=== PATIENT | male | born 1975 | race African-American/Black ===

== ENCOUNTER 2021-08-20 16:43 | Emergency (ER) | payer OTHER ==
[2021-08-20 18:31] LABS: Absolute Lymphocytes (CBC) 1.1 K/uL (0.7-4.9); Hematocrit 22.7 % (39.6-49.0); Lymphocytes % 18.9 % (15.3-44.8); MPV 8.6 fL (7.6-11.3); Protime INR 1.25; RBC Red Blood Cell Count 2.36 M/uL (4.33-5.43)
[2021-08-20 19:17] LABS: Magnesium 1.8 mg/dL (1.8-2.4); Potassium 4.1 mmol/L (3.5-5.1)
--- NOTE | 2021-08-20 20:00 | RAD REPORT ---
EXAM DESCRIPTION: RAD - Chest Single View - 08/20/2021 6:55 pm CLINICAL HISTORY: anemia COMPARISON: None TECHNIQUE: AP portable chest image was obtained 08/20/2021 6:55 pm . FINDINGS: No dense consolidations seen though there do appear to be patchy airspace opacities in bot h lung hurley. The baseline for the patient is unknown. Aortic arch stenting is present. Additional v ascular stents are seen in the right subclavian vasculature. Hardware is in place from old rib trauma repair lateral left chest. Heart size is upper normal. Central vasculature within normal limits. No measurable pleural effusion and no pneumothorax. No acute bony abnormality seen. No acute aortic findings suspected. IMPRESSION: Baseline study showing patchy airspace opacities in the lung hurley. Mild edema or infil trate would be possible and needs correlation with clinical presentation.
--- NOTE | 2021-08-20 20:41 | EDPHYS ---
Physician Documentation [facility] Name: Velasquez Cruz Age: 46 yrs Sex: Male : 1975 Arrival Date: 08/20/2021 Time: 16:47 Bed 15 Private MD: ED Physician Kiet Funez HPI: 08/20 18:00 This 46 yrs old Black Male presents to ER via EMS with complaints of Anemia. cp 18:00 Anemia. Patient referred to ED for evaluation of low hemoglobin. Patient denies dark, cp tarry stools. Denies shortness of breath. Denies chest pain. Patient is a dialysis patient, reports anemia in the past but admits to not taking prescribed iron. Historical: - Allergies: 17:03 No Known Allergies; jd3 - Home Meds: 17:04 Norvasc Oral [Active]; Coreg Oral [Active]; Lisinopril Oral [Active]; Clonidine Oral jd3 [Active]; Veltassa oral [Active]; Clindamycin Oral [Active]; sertraline oral [Active]; atorvastatin oral [Active]; Hydralazine Oral [Active]; - PMHx: 17:04 M W F dialysis; CHF; Anemia; hypertension; jd3 - PSHx: 17:04 left arm dialysis access; jd3 - Immunization history:: Adult Immunizations up to date. - Social history:: Smoking status: Patient reports the use of cigarette tobacco products, smokes one pack cigarettes per day. ROS: 18:05 Constitutional: Negative for body aches, chills, fever, poor PO intake. cp 18:05 Eyes: Negative for injury, pain, redness, and discharge. cp 18:05 Cardiovascular: Negative for chest pain. 18:05 Respiratory: Negative for shortness of breath, wheezing. 18:05 Abdomen/GI: Negative for abdominal pain, nausea, vomiting, and diarrhea, black/tarry stool, rectal bleeding. 18:05 Neuro: Negative for altered mental status, dizziness, headache, syncope, weakness. 18:05 All other systems are negative. Exam: 18:10 Constitutional: The patient appears in no acute distress, alert, awake, cp non-diaphoretic, non-toxic, well developed, well nourished. 18:10 Head/Face: Normocephalic, atraumatic. cp 18:10 Eyes: Periorbital structures: appear normal, Conjunctiva: normal, no exudate, no injection, Lids and lashes: appear normal, bilaterally. 18:10 ENT: External ear(s): are unremarkable, Nose: is normal, Mouth: Lips: moist, Oral mucosa: moist, Posterior pharynx: Airway: no evidence of obstruction, patent. 18:10 Chest/axilla: Inspection: normal. 18:10 Cardiovascular: Rate: normal, Rhythm: regular. 18:10 Respiratory: the patient does not display signs of respiratory distress, Respirations: normal, no use of accessory muscles, no retractions, labored breathing, is not present, Breath sounds: are clear throughout, no decreased breath sounds, no stridor, no wheezing. 18:10 Abdomen/GI: Inspection: abdomen appears normal, Palpation: abdomen is soft and non-tender, in all quadrants. 18:10 Back: pain, is absent, ROM is normal. 18:10 Neuro: Orientation: to person, place \T\ time. Mentation: is normal. 18:20 ECG was reviewed by the Attending Physician. Vital Signs: 17:03 BP 116 / 77; Pulse 71; Resp 18 S; Temp 99.0(TE); Pulse Ox 99% on R/A; Weight 83.01 kg jd3 (R); Height 5 ft. 8 in. (172.72 cm) (R); Pain 0/10; 19:37 BP 175 / 76; Pulse 65; Resp 18; Pulse Ox 100% on R/A; ld1 17:03 Body Mass Index 27.82 (83.01 kg, 172.72 cm) jd3 MDM: 17:45 Patient medically screened. cp 20:40 Data reviewed: vital signs, nurses notes, lab test result(s), EKG, radiologic studies, cp plain films. 20:40 Test interpretation: by ED physician or midlevel provider: ECG, plain radiologic cp studies. Counseling: I had a detailed discussion with the patient and/or guardian regarding: the historical points, exam findings, and any diagnostic results supporting the discharge/admit diagnosis, lab results, radiology results, the need for outpatient follow up, a family practitioner, to return to the emergency department if symptoms worsen or persist or if there are any questions or concerns that arise at home. 08/20 18:03 Order name: Basic Metabolic Panel; Complete Time: 19:39 cp 08/20 18:03 Order name: CBC with Diff cp 08/20 19:39 Interpretation: Normal except: RBC 2.36; HGB 7.7; HCT 22.7; RDW 21.8; EOSINOPHIL % cp 12.8; BASO% 1.5; EOSA 0.8. 08/20 18:03 Order name: Magnesium; Complete Time: 19:39 cp 08/20 18:03 Order name: NT PRO-BNP; Complete Time: 19:39 cp 08/20 20:03 Interpretation: Reviewed. cp 08/20 18:03 Order name: PT-INR; Complete Time: 19:39 cp 08/20 21:24 Order name: CBC Smear Scan EDMS 08/20 18:03 Order name: XRAY Chest (1 view); Complete Time: 20:03 cp 08/20 18:03 Order name: EKG; Complete Time: 18:04 cp 08/20 18:03 Order name: Cardiac monitoring; Complete Time: 18:23 cp 08/20 18:03 Order name: EKG - Nurse/Tech; Complete Time: 18:23 cp 08/20 18:03 Order name: IV Saline Lock; Complete Time: 18:10 cp 08/20 18:03 Order name: Labs collected and sent; Complete Time: 18:10 cp 08/20 18:03 Order name: O2 Per Protocol; Complete Time: 18:25 cp 08/20 18:03 Order name: O2 Sat Monitoring; Complete Time: 18:25 cp 08/20 18:27 Order name: Labs - recollect needed: recollect green top; Complete Time: 18:34 bd EC:20 Rate is 57 beats/min. Rhythm is regular. [place] interval is normal. QRS interval is normal. cp QT interval is normal. T waves are Inverted in lead aVR. Interpreted by me. Reviewed by me. Administered Medications: No medications were administered Disposition Summary: 08/20/21 20:40 Discharge Ordered Location: Home cp Problem: new cp Symptoms: are unchanged cp Condition: Stable cp Diagnosis - Anemia in chronic kidney disease cp Followup: cp - With: Private Physician - When: 1 - 2 days - Reason: Recheck today's complaints Discharge Instructions: - Discharge Summary Sheet cp - Anemia cp - Food Basics for Chronic Kidney Disease cp Forms: - Medication Reconciliation Form cp - Thank You Letter cp - Antibiotic Education cp - Prescription Opioid Use cp Signatures: Dispatcher [employer] Shilpa Antoine Corey, PA PA cp Davies, Jonathon RN RN jd3
--- NOTE | 2021-08-20 20:41 | ER ---
Nurse's Notes [facility] Name: Velasquez Cruz Age: 46 yrs Sex: Male : 1975 Arrival Date: 08/20/2021 Time: 16:47 Bed 15 Private MD: Diagnosis: Anemia in chronic kidney disease Presentation: 08/20 17:01 Chief complaint: EMS states: "He was sent by [facility] for low Hgb at jd3 6.9. no chief complaint.". Coronavirus screen: At this time, the client does not indicate any symptoms associated with coronavirus-19. Ebola Screen: No symptoms or risks identified at this time. Initial Sepsis Screen: Does the patient meet any 2 criteria? No. Patient's initial sepsis screen is negative. Does the patient have a suspected source of infection? No. Patient's initial sepsis screen is negative. Risk Assessment: Do you want to hurt yourself or someone else? Patient reports no desire to harm self or others. Onset of symptoms was August 20, 2021. 17:01 Method Of Arrival: EMS: [facility] jd3 17:01 Acuity: HEAVEN 3 jd3 17:03 Note [facility]. jd3 Historical: - Allergies: 17:03 No Known Allergies; jd3 - Home Meds: 17:04 Norvasc Oral [Active]; Coreg Oral [Active]; Lisinopril Oral [Active]; Clonidine Oral jd3 [Active]; Veltassa oral [Active]; Clindamycin Oral [Active]; sertraline oral [Active]; atorvastatin oral [Active]; Hydralazine Oral [Active]; - PMHx: 17:04 M W F dialysis; CHF; Anemia; hypertension; jd3 - PSHx: 17:04 left arm dialysis access; jd3 - Immunization history:: Adult Immunizations up to date. - Social history:: Smoking status: Patient reports the use of cigarette tobacco products, smokes one pack cigarettes per day. Screenin:55 Abuse screen: Denies threats or abuse. Denies injuries from another. Nutritional tw5 screening: No deficits noted. Tuberculosis screening: No symptoms or risk factors identified. Fall Risk None identified. Assessment: 17:53 General: Appears in no apparent distress. Behavior is calm, cooperative. General: pt tw5 sent from dialysis due to low hemoglobin that has been present x 1wk. pt states he used to take iron but has not needed to in a long time. pt stated that they were able to complete his dialysis today, has had no gi s/s including dark stools and is having no pain. Pain: Denies pain. Cardiovascular: No deficits noted. Respiratory: No deficits noted. Airway is patent Trachea midline Respiratory effort is even, unlabored, relaxed, Respiratory pattern is regular. GI: No deficits noted. No signs and/or symptoms were reported involving the gastrointestinal system. Vital Signs: 17:03 BP 116 / 77; Pulse 71; Resp 18 S; Temp 99.0(TE); Pulse Ox 99% on R/A; Weight 83.01 kg jd3 (R); Height 5 ft. 8 in. (172.72 cm) (R); Pain 0/10; 19:37 BP 175 / 76; Pulse 65; Resp 18; Pulse Ox 100% on R/A; ld1 17:03 Body Mass Index 27.82 (83.01 kg, 172.72 cm) jd3 ED Course: 16:47 Patient arrived in ED. am2 17:02 Triage completed. jd3 17:03 Arm band placed on. jd3 17:13 Abelino Nino PA is PHCP. cp 17:13 Kiet Funez DO is Attending Physician. cp 17:47 Kiera Morris is Primary Nurse. tw5 17:55 Inserted saline lock:. tw5 17:56 Bed in low position. Call light in reach. Side rails up X 1. tw5 18:23 EKG done, by ED staff, reviewed by Abelino PALACIO. mb7 18:43 XRAY Chest (1 view) Sent. tw5 18:57 XRAY Chest (1 view) In Process Unspecified. EDMS 19:20 Notified Nurse Practitioner and/or Physician Molecular Biology Director of a critical lab result(s), lp1 Creatinine 6.81. Administered Medications: No medications were administered Outcome: 20:40 Discharge ordered by . cp 22:08 Patient left the ED. ld1 Signatures: Dispatcher [employer] EDMS Pratibha Cohen RN RN lp1 Abelino Nino PA PA cp Ashleigh Hogue am2 Jesse Steve RN RN jRowan Ybarra RN RN ld1 Kiera Morris tw5 Josias, [facility]7
[2021-08-20 21:22] LABS: White Blood Cell Scan OK (OK)
[2021-08-20 21:23] LABS: Anisocytosis 2+; Blood Morphology Comment NOTED (NOT SEEN); Platelet Estimate DECR; Poikilocytosis 2+
[2021-08-20 22:53] VITALS: TEMP 99
[2021-08-20 22:54] VITALS: BP 175/76; O2SAT 100
--- NOTE | 2021-08-21 09:09 | EKG ---
Test Date: 2021-08-20 Test Time: 18:15:42 [employer] Operator: MB MEASUREMENT RESULTS: Intervals: Rate: 57 NJ: 178 QRSD: 84 QT: 470 QTc: 457 [place]: P: 66 NJ: 178 QRS: 72 T: 66 INTERPRETIVE STATEMENTS: Sinus bradycardia Possible Left atrial enlargement Cannot rule out Anteroseptal infarct, age undetermined Abnormal ECG No previous ECG available for comparison Electronically Signed On 08-21-21 09:08:05 CDT by Zach Saucedo
== END 2021-08-20 22:08 | disposition home or self-care (01) ==
LOC: ER 16:43
DX: I13.2 Hypertensive heart and chronic kidney disease with heart failure and with stage 5 chronic kidney disease, or end stage renal disease (principal); N18.6 End stage renal disease; I50.9 Heart failure, unspecified; D63.1 Anemia in chronic kidney disease; Z99.2 Dependence on renal dialysis; F17.210 Nicotine dependence, cigarettes, uncomplicated
CPT/HCPCS: 36415; 71045; 80048; 83735; 83880; 85025; 85610; 93005; 99284

== ENCOUNTER 2021-11-20 09:46 | Emergency (ER) | payer OTHER ==
--- OUTSIDE RECORDS SUMMARY | 2021-11-20 09:51 | XMS REPORT | Continuity of Care Document ---
:1975 Author Organization [facility] t Address [address] [place] [address] Care Team Providers Name Role Phone UNKNOWN, REFFERING Primary Care Physician Unavailable ENRIQUE PATRICK Attending Clinician Unavailable GC_BAHC_Todd_Gume Attending Clinician Unavailable Robert Mccarthy Attending Clinician [phone] Mara Padron Attending Clinician [phone] BOB Attending Clinician Unavailable June Attending Clinician [phone] GC_BAHC_Spanglcesar_G Attending Clinician Unavailable KHADAR CALHOUN Attending Clinician Unavailable DR KACEY GAYLE Attending Clinician Unavailable DR KHADAR CALHOUN Attending Clinician Unavailable DR ELAINE MCWILLIAMS Attending Clinician Unavailable PAULBAHC_Todd_Gume Admitting Clinician Unavailable BOB Admitting Clinician Unavailable GC_BAHC_Spangler_G Admitting Clinician Unavailable KHADAR CALHOUN Admitting Clinician Unavailable DR KACEY GAYLE Admitting Clinician Unavailable DR KHADAR CALHOUN Admitting Clinician Unavailable DR ELAINE MCWILLIAMS Admitting Clinician Unavailable Payers Payer Name Policy Type Policy Number Effective Date Expiration Date Karen allen [facility] MEDICARE [id number] 2021 ADVANTAGE PLAN 00:00:00 [facility] [id number] 2019 [facility] - 00:00:00 [facility] - [id number] 2021 FORMERLY [facility] C[facility] - 00:00:00 [facility] - [facility] CARE (MEDICAID HMO) Problems Condition Condition Condition Status Onset Resolution Last Treating Co mments Source Name Details Category Date Date Treatment Clinician Date 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 Social History Social Habit Start Date Stop Date Quantity Comments Source History of tobacco Cigarette Smoker [facility] use Tobacco use and 2021-09-25 2021-09-25 Smokeless tobacco [facility] exposure 00:00:00 00:00:00 non-user Sex Assigned At [birth year] [facility] 00:00:00 00:00:00 Smoking Status Start Date Stop Date Source Smokes tobacco daily 2021-09-25 00:00:00 [facility] Medications Ordered Filled Start Stop Current Ordering Indication Dosage Frequency Signature Comments Components Source Medication Medication Date Date Medication? Clinician (SIG) Name Name acetaminoph Yes Q12H every 12 [facility] en-codeine 09-25 () Healt h (Tylenol w/ 16:44: hours. Codeine #3) 48 300-30 MG tablet atorvastati Yes QD 1 (one) UT n (Lipitor) 09-25 time each Hea lth 20 MG 16:44: day. tablet 48 calcium Yes calcium UT acetate 09-25 acetate( Health (Phoslo) 16:44: osphate 667 MG 48 binders) capsule 667 mg capsule 2 TID with meals and 1 at bedtime with snack carvedilol Yes Q12H every 12 UT (Coreg) 25 09-25 (twelve) Healt h MG tablet 16:44: hours. 48 cloNIDine Yes clonidine UT (Catapres-T 09-25 0.1 mg/24 Hea lth TS) 0.1 16:44: hr weekly MG/24HR 48 transderma l patch Apply 1 patch every week by transderma l route. ergocalcife Yes 1{capsu 1 capsule. UT rol 09-25 le} [facility] (Vitamin 16:44: D-2) 1.25 48 MG (54649 UT) capsule ferrous 0 Yes Q12H every 12 UT sulfate 325 09-25 (twelve) Heal th (65 Fe) MG 16:44: hours. tablet 48 fluticasone 2021-0 Yes QD 1 (one) UT (Flonase) -28 time each Healt h 50 MCG/ACT 16:44: day. nasal spray 48 folic acid 0 Yes QD 1 (one) UT (Folvite) 1 6-28 time each Hea lth MG tablet 16:44: day. 48 hydrALAZINE 0 Yes Q8H every 8 UT (Apresoline 09-25 (eight) Healt h ) 100 MG 16:44: hours. tablet 48 lactulose Yes 30mL QD 30 mL 1 UT (Chronulac) 09-25 (one) time He alth 10 GM/15ML 16:44: each day. solution 48 lisinopril 0 Yes QD 1 (one) UT 40 MG 6- time each Health tablet 16:44: day. 48 Patiromer Yes Veltassa UT Sorbitex 09-25 8.4 gram Health Calcium 16:44: oral (Veltassa) 48 powder 8.4 g pack packet one on non dialysis days erinne, mehran, sat sertraline Yes QD 1 (one) UT (Zoloft) 09-25 time each Health 100 MG 16:44: day. tablet 48 Lokelma 5 g 2020-03 Yes UT packet 0-11 Health 00:00: 00 tramadol 50 tramadol 50 No 1 Q6H tramadol [place] mg tablet mg tablet 50 mg da Take 1 Take 1 tablet Medical tablet tablet Take 1 Group every 6 every 6 tablet hours by hours by every 6 oral route oral route hours by as needed as needed oral route for 30 for 30 as needed days. days. for 30 days. Vital Signs Vital Name Observation Time Observation Value Comments Source Height 2019-02-20 00:00:00 68 [facility] 00[facility]00:00 68 [in_i] [facility] 2018-10-25 00:00:00 68 [in_i] [facility] 2018-09-04 00:00:00 68 [in_i] [facility] Procedures This patient has no known procedures. Plan of Care Planned Activity Planned Date Details Comments Source Diagnostic Test 2019-02-21 17-hydroxyprogeste Carole kiln mechanic Medical Pending 00:00:00 Group slick quantitative, serum [code = 17-hydroxyparley kruger, quantitative, serum] Encounters Start End Encounter Admission Attending Care Care Encounter Source Date/Time Date/Time Type Type Clinicians Facility Department ID 2021-11-19 Outpatient [facility] [id number] [place] 10:07:20 [id number] [facility] 2021-10-16 [facility] [id number] [place] 14:38:07 ENRIQUE [id number] [facility] 2021-09-25 [facility] [id number] [place] 09:31:27 ENRIQUE [id number] [facility] 2021-09-17 [facility] [id number] [place] 10:08:53 ENRIQUE [id number] [facility] 2021-09-04 [facility] [id number] [place] 12:19:20 ENRIQUE [id number] [facility] 2015-12-08 Inpatient [facility] [id number] [facility] 18:48:00 [facility] 2021-11-16 2021-11-16 Outpatient [facility]_Tod PRIV PRIV [id number] [facility] 00:00:00 00:00:00 d_J [id number] Medica l 2021-11-08 2021-11-08 Outpatient [facility]_Tod PRIV PRIV 205 [id number] [facility] 00:00:00 00:00:00 d_J [id number] Medica l 2021-11-08 2021-11-08 Outpatient Fabio, PRIV PRIV [id number] 00:00:00 00:00:00 Robertdenise Macedone [id number] 2021-11-02 2021-11-02 Outpatient [facility]_Tod PRIV PRIV 205 [id number] [facility] 00:00:00 00:00:00 d_J [id number] Medica l 2021-11-02 2021-11-02 Outpatient Vito, PRIV PRIV [id number] e-1 00:00:00 00:00:00 Mara ce7-11ed-b [id number] 2021-10-28 2021-10-28 Outpatient [facility]_Tod PRIV PRIV 205 [id number] [facility] 00:00:00 00:00:00 d_J [id number] Medica l 2021-10-20 2021-10-20 Outpatient [facility]_Tod PRIV PRIV 205 [id number] [facility] 10:42:00 10:42:00 d_J [id number] Medica l 2021-10-19 2021-10-19 Outpatient [facility]_Tod PRIV PRIV 205 [id number] [facility] 07:48:00 07:48:00 d_J [id number] Medica l 2021-10-19 2021-10-19 Outpatient V[facility], PRIV PRIV [id number] e-[id number] 00:00:00 00:00:00 Mara 12e-11ed-a [id number] 2021-10-12 2021-10-12 Outpatient [facility]_Tod PRIV PRIV 205 [id number] [facility] 03:53:00 03:53:00 d_J [id number] Medica l 2021-10-12 2021-10-12 Outpatient [facility], PRIV PRIV [id number] [id number] 00:00:00 00:00:00 Mara af6-11ed-9 [id number] 2021-10-09 2021-10-09 Outpatient [facility] [id number] [place] 11:56:00 11:56:00 HANA 0712 da [facility] 2021-10-05 2021-10-05 Outpatient [facility]_Tod PRIV PRIV 205 [id number] [facility] 11:01:00 11:01:00 d_J [id number] Medica l 2021-10-04 2021-10-04 Outpatient [facility]_Tod PRIV PRIV 205 [id number] [facility] 09:10:00 09:10:00 d_J [id number] Medica l 2021-10-03 2021-10-03 Outpatient [facility]_Tod PRIV PRIV 205 [id number] [facility] 02:45:00 02:45:00 d_J [id number] Medica l 2021-10-02 2021-10-02 Outpatient [facility]_Tod PRIV PRIV 205 [id number] [facility] 05:08:00 05:08:00 d_J [id number] Medica l 2021-10-02 2021-10-02 Outpatient Vito, PRIV PRIV [id number] c-f 00:00:00 00:00:00 Mara [id number] 2021-09-26 2021-09-26 Outpatient [facility]Tod PRIV PRIV 205 [id number] [facility] 09:13:00 09:13:00 d_J [id number] Medica l 2021-09-26 2021-09-26 Outpatient Vito PRIV PRIV [id number] 00:00:00 00:00:00 Mara dec-11ec-8 [id number] 2021-09-25 2021-09-25 Office Jay [facility] [id number] [place] 11:15:00 12:43:09 Visit [facility] [id number] jake RAMSEY 1 [id number] 2021-09-21 2021-09-21 Outpatient [facility]_Tod PRIV PRIV 205 [id number] [facility] 04:44:00 04:44:00 d_J [id number] Medica l 2021-09-17 2021-09-17 Outpatient [facility]_Tod PRIV PRIV 205 [id number] [facility] 11:11:00 11:11:00 d_J [id number] Medica l 2021-09-13 2021-09-13 Outpatient [facility]_Tod PRIV PRIV 205 [id number] [facility] 10:39:00 10:39:00 d_J [id number] Medica l 2021-09-13 2021-09-13 Outpatient Fabio, PRIV PRIV [id number] 00:00:00 00:00:00 Robert Mojica [id number]-[id number] 2021-09-10 2021-09-10 Outpatient [facility]Tod PRIV PRIV 205 [id number] [facility] 03:35:00 03:35:00 d_J [id number] Medica l 2021-09-04 2021-09-04 Outpatient [facility]_Tod PRIV PRIV 205 [id number] [facility] 07:32:00 07:32:00 d_J [id number] Medica l 2021-09-04 2021-09-04 Outpatient Vito, PRIV PRIV [id number] 2-[id number] 00:00:00 00:00:00 Mara [id number] 2021-08-31 2021-08-31 Outpatient [facility]_Tod PRIV PRIV 205 [id number] [facility] 02:07:00 02:07:00 d_J [id number] Medica l 2021-08-23 2021-08-23 Outpatient GC_BAHC_Tod PRIV PRIV 205 [id number] [facility] 11:05:00 11:05:00 d_J [id number] Medica l 2021-08-22 2021-08-22 Outpatient GC_BAHC_Tod PRIV PRIV 205 [id number] [facility] 07:00:00 07:00:00 d_J [id number] Medica l 2021-08-22 2021-08-22 Outpatient Vito, PRIV PRIV [id number] 00:00:00 00:00:00 Mara [id number] 2021-08-19 2021-08-19 Outpatient [facility]_Tod PRIV PRIV 205 [id number] [facility] 10:45:00 10:45:00 d_J [id number] Medica l 2021-08-14 2021-08-14 Outpatient GC_BAHC_Tod PRIV PRIV 205 [id number] [facility] 03:16:00 03:16:00 d_J [id number] Medica l 2021-08-14 2021-08-14 Outpatient Vito, PRIV PRIV [id number] 4-[id number] 00:00:00 00:00:00 Mara 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 [id number] 2021-08-10 2021-08-10 Outpatient [facility]_Tod PRIV PRIV 205 [id number] [facility] 01:10:00 01:10:00 d_J [id number] Medica l 2021-08-10 2021-08-10 Outpatient [facility], PRIV PRIV [id number] e-[id number] 00:00:00 00:00:00 Mara [id number] 2021-08-08 2021-08-08 Outpatient [facility]_Tod PRIV PRIV 205 [id number] [facility] 10:53:00 10:53:00 d_J [id number] Medica l 2021-08-04 2021-08-04 Outpatient GC_BAHC_Tod PRIV PRIV 205 [id number] [facility] 10:45:00 10:45:00 d_J [id number] Medica l 2021-07-31 2021-07-31 Outpatient GC_BAHC_Tod PRIV PRIV 205 [id number] [facility] 07:56:00 07:56:00 d_J [id number] Medica l 2021-07-31 2021-07-31 Outpatient Vito, PRIV PRIV [id number] 4-[id number] 00:00:00 00:00:00 Mara [id number] 2021-07-27 2021-07-27 Outpatient GC_BA[facility]_Tod PRIV PRIV [id number] [facility] 08:30:00 08:30:00 d_J [id number] Medica l 2021-07-27 2021-07-27 Outpatient Vito, PRIV PRIV [id number] 00:00:00 00:00:00 Mara [id number]-i [id number] 2021-07-19 2021-07-19 Outpatient [facility]_Tod PRIV PRIV 205 [id number] [facility] 08:26:00 08:26:00 d_J [id number] Medica l 2021-07-19 2021-07-19 Outpatient Fabio, PRIV PRIV [id number] 00:00:00 00:00:00 Robert Mojica 7bc-[id number]-a [id number] 2021-07-19 2021-07-19 Outpatient Fabio, PRIV PRIV [id number] 00:00:00 00:00:00 Robert Mojica [id number]-[id number]-a [id number] 2021-07-13 2021-07-13 Outpatient [facility]_Tod PRIV PRIV 205 [id number] [facility] 02:12:00 02:12:00 d_J [id number] Medica l 2021-07-12 2021-07-12 Outpatient [facility]_Tod PRIV PRIV 205 [id number] [facility] 05:07:00 05:07:00 d_J [id number] Medica l 2021-07-12 2021-07-12 Outpatient [place], PRIV PRIV [id number] c-[id number] 00:00:00 00:00:00 June [id number] 2021-07-12 2021-07-12 Outpatient [place], PRIV PRIV [id number] 00:00:00 00:00:00 June ed0-11ec-8 [id number] 2021-07-11 2021-07-11 Outpatient [facility]_Tod PRIV PRIV [id number] [facility] 10:53:00 10:53:00 d_Gume [id number] Medica l 2021-07-06 2021-07-06 Outpatient GC_BAHC_Spa PRIV PRIV [id number] [facility] 05:28:00 05:28:00 Portillo [id number] Medica l 2019-02-20 2019-02-20 Keven [facility] [place] - [id number] [place] 00:00:00 00:00:00 Christo Collins MD: [address] [facility] [address] [facility], [place] [address] , Ph. 2018-11-13 2018-11-13 Keven [place] - [id number] [place] 00:00:00 00:00:00 Christo Collins MD: [address] [facility] [address], [place] [address] , Ph. 2018-10-25 2018-10-25 Keven MM [place] - [id number] [place] 00:00:00 00:00:00 Christo Collins Medical MD: [address] [facility] [address], [place] [address] , Ph. 2018-09-04 2018-09-04 Keven MM [place] - [id number] [place] 00:00:00 00:00:00 Christo Collins Medical MD: [address] [facility] [address], [place] [address] , Ph. 2017-09-07 2017-09-08 Inpatient Christiano GAYLE [facility] TELE [id number] [facility] 15:44:00 18:20:00 [facility] 2017-09-01 2017-09-04 Inpatient KHADAR PURI [facility] TELE [id number] [facility] 20:55:00 18:24:00 Medica l Center Results Test Description Test Time Test Comments Results Result Comments Source HEPATITIS B SURFACE ANTIGEN 2019-02-18 18:21:00 Test Item Value Reference Range Interpretation Comme nts HEPATITIS B SURFACE ANTIGEN (2) (STACY) (test code = Nonreactive Nonreactive 2585) ANG, THROMBECTOMY, A-V [id number] 13:26:00Reason for exam:- >nonfunctioning fistulaAnesthesia:->moderateFINAL REPORT DIALYSIS FISTULOGRAM, UNDER FLUOROSCOPY INSERTION OF LEFT JUGULAR T UNNELED DIALYSIS CATHETER, UNDER FLUOROSCOPY History provided: Massively dilated right upper extremity dialysis fistula with high pressures. PROCEDURE: Informed consent was obtained. Patient's medication list was reviewed. Timeout procedure was performed. All elements of strict sterile barrier were employed, including cap, mask, sterile gloves, and sterile drape. Skin was prepped with ChloraPrep. 1% Xylocaine anesthesia utilized. Moderate conscious sedation was achieved utilizing two mg IV Versed and 100 ug IV Fentanyl while continuously monitoring cardiorespiratory function. The patient was monitored by the radiology nurse. Sedation time was 60 minutes. Initially, the patient's fistula was punctured just proximal to the antecubital level. Hand injection was performed with digital subtraction filming through a short sheath. Despite extensive maneuvering, I was unable to pass a guidewire through the markedly dilated and tortuous fistula into the proximal venous circulation. I consult with the ref erring physician by telephone. Ultrasound evaluation of potential access sites was performed. Sterile ultrasound techniques were employed, including sterile gel and sterile probe cover. The right internal jugular vein is jailed by stents which extend from the right subclavian vein to the SVC. After successfully identifying a patent left internal jugular vein , real-time ultrasound guidance was used to puncture the vessel. A permanent recording was created for the patient's record. A stiff guidewire was advanced to the IVC. Large peel-away sheath was placed. 28 cm tip to cuff dialysis catheter was tunneled from a left anterior chest wall site, brought out adjacent to the peel-away sheath, and then inserted down the peel-away sheath, which was removed. Catheter tip lies in excellent position at thecavoatrial junction. Spot film was performed. Catheter was packed with heparin. Skin puncture site was closed with 2-0 silk sutures. Catheter was secured at the exit site with 2-0 proline suture. The puncture site from the sheath at the right antecubital level was sealed with 2-0 silk pursestring suture, which may be removed in 1-2 days. IMPRESSION: I was unable to negotiate the markedly dilated and tortuous fistula to evaluate for possible angioplasty. Right IJ is jailed. Left IJ tunneled dialysis catheter was successfully placed. Dialysis catheter may be used immediately. Fluoroscopy time: 14 minutes 52 seconds Radiation dose (Ka,r): 89 mGy Signed: Viktor Rojas MDReport Verified Date/Time: 02/18/2019 13:26:57 Reading Location: [facility] Radiology Reading Room [id number] 05:52:00 Test Item Value Reference Range Interpretation Comments MAGNESIUM (BEAKER) (test code = 2.0 mg/dL 1.5-3.0 627) BASIC METABOLIC [id number] 05:51:00 Test Item Value Reference Range Interpretation Comments SODIUM (BEAKER) 143 meq/L 135-148 (test code = 381) POTASSIUM (BEAKER) 5.7 meq/L 3.6-5.5 H (test code = 379) CHLORIDE (BEAKER) 99 meq/L 98-106 (test code = 382) CO2 (BEAKER) (test 24 meq/L 20-29 code = 355) BLOOD UREA NITROGEN > mg/dL 10-26 H (BEAKER) (test code = 354) CREATININE (BEAKER) 14.59 mg/dL 0.50-1.20 H (test code = 358) GLUCOSE RANDOM 78 mg/dL 70-110 (BEAKER) (test code = 652) CALCIUM (BEAKER) 9.3 mg/dL 8.5-10.5 (test code = 697) EGFR (BEAKER) (test 4 mL/min/1.73 ESTIMAT ED GFR IS code = 1092) sq m NOT ACCURATE CREATININE CLEARANCE IN PREDICTING GLOMERULAR FILTRATION RATE . ESTIMATED GFR I S NOT APPLICABLE FOR DIALYSIS PATIEN TS. CBC W/PLT COUNT & AUTO [id number] 05:37:00 Test Item Value Reference Range Interpretation Comments WHITE BLOOD CELL COUNT (BEAKER) 6.7 K/ L 4.0-10.0 (test code = 775) RED BLOOD CELL COUNT (BEAKER) 2.39 M/ L 4.20-5.80 L (test code = 761) HEMOGLOBIN (BEAKER) (test code = 7.1 GM/DL 13.0-16.8 L 410) HEMATOCRIT (BEAKER) (test code = 20.8 % 36.0-50.0 LL 411) MEAN CORPUSCULAR VOLUME (BEAKER) 87.0 fL 82.0-99.0 (test code = 753) MEAN CORPUSCULAR HEMOGLOBIN 29.7 pg 27.0-33.0 (BEAKER) (test code = 751) MEAN CORPUSCULAR HEMOGLOBIN CONC 34.1 GM/DL 32.0-36.0 (BEAKER) (test code = 752) RED CELL DISTRIBUTION WIDTH 18.6 % 12.0-15.0 H (BEAKER) (test code = 412) PLATELET COUNT (BEAKER) (test 274 K/CU MM 150-430 code = 756) MEAN PLATELET VOLUME (BEAKER) 10.2 fL 6.0-11.5 (test code = 754) NUCLEATED RED BLOOD CELLS 0 /100 WBC 0-0 (BEAKER) (test code = 413) NEUTROPHILS RELATIVE PERCENT 58 % (BEAKER) (test code = 429) LYMPHOCYTES RELATIVE PERCENT 20 % (BEAKER) (test code = 430) MONOCYTES RELATIVE PERCENT 12 % (BEAKER) (test code = 431) EOSINOPHILS RELATIVE PERCENT 9 % (BEAKER) (test code = 432) BASOPHILS RELATIVE PERCENT 1 % (BEAKER) (test code = 437) NEUTROPHILS ABSOLUTE COUNT 3.91 K/ L 1.80-8.00 (BEAKER) (test code = 670) LYMPHOCYTES ABSOLUTE COUNT 1.35 K/ L 1.48-4.50 L (BEAKER) (test code = 414) MONOCYTES ABSOLUTE COUNT (BEAKER) 0.77 K/ L 0.00-1.30 (test code = 415) EOSINOPHILS ABSOLUTE COUNT 0.62 K/ L 0.00-0.50 H (BEAKER) (test code = 416) BASOPHILS ABSOLUTE COUNT (BEAKER) 0.05 K/ L 0.00-0.20 (test code = 417) IMMATURE GRANULOCYTES-RELATIVE 0 % 0-0 PERCENT (BEAKER) (test code = 2801) RAD, CHEST, 1 VIEW, NON [id number] 09:21:00Reason for exam:- >pneumoniaShould this be performed at the bedside?->YesFINAL REPORT TECHNIQUE: Frontal view of the chest. INDICATION: pneumonia COMPARISON:Prior day. IMPRESSION:Lines and hardware: Stable.Heart and mediastinum: Stable.Lungs and pleura:Probable scattered atelectasis. No focal airspace consolidation. Central coronary venous congestion.No pleural effusion. No pneumothorax.Soft tissues and bones: No acute abnormality. Signed: Rupinder Perez MDReport Verified Date/Time: 02/17/2019 09:21:38 Reading Location: [facility] Radiology Reading Room COMPREHENSIVE METABOLIC [id number] 06:48:00 Test Item Value Reference Range Interpretation Comments TOTAL PROTEIN 7.3 gm/dL 6.0-8.5 (BEAKER) (test code = 770) ALBUMIN (BEAKER) 3.3 g/dL 3.5-5.0 L (test code = 1145) ALKALINE PHOSPHATASE 104 U/L 30-115 (BEAKER) (test code = 346) BILIRUBIN TOTAL 0.3 mg/dL 0.1-1.2 (BEAKER) (test code = 377) SODIUM (BEAKER) (test 143 meq/L 135-148 code = 381) POTASSIUM (BEAKER) 5.7 meq/L 3.6-5.5 H (test code = 379) CHLORIDE (BEAKER) 101 meq/L 98-106 (test code = 382) CO2 (BEAKER) (test 26 meq/L 20-29 code = 355) BLOOD UREA NITROGEN 99 mg/dL 10-26 H (BEAKER) (test code = 354) CREATININE (BEAKER) 12.65 mg/dL 0.50-1.20 H (test code = 358) GLUCOSE RANDOM 84 mg/dL 70-110 (BEAKER) (test code = 652) CALCIUM (BEAKER) 9.5 mg/dL 8.5-10.5 (test code = 697) AST (SGOT) (BEAKER) 19 U/L 5-40 (test code = 353) ALT (SGPT) (BEAKER) 23 U/L 5-50 (test code = 347) EGFR (BEAKER) (test 5 mL/min/1.73 ESTIMAT ED GFR IS code = 1092) sq m NOT ACCURATE CREATININE CLEARANCE IN PREDICTING GLOMERULAR FILTRATION RATE . ESTIMATED GFR I S NOT APPLICABLE FOR DIALYSIS PATIEN TS. [id number] 06:30:00 Test Item Value Reference Range Interpretation Comments MAGNESIUM (BEAKER) (test code = 2.0 mg/dL 1.5-3.0 627) TROPONIN [id number] 06:27:00 Test Item Value Reference Range Interpretation Comments TROPONIN I (BEAKER) (test code = 0.06 ng/mL 0.00-0.15 397) Troponin I (TnI) levels must be interpreted in the context of the presenting symptoms and the clinical findings. Elevated TnI levels indicate myocardial damage, but are not specific for ischemic heart disease. Elevated TnI levels are seen in patients with other cardiac conditions (including myocarditis and congestive heart failure), and slight TnI elevations occur in patients with other conditions, including sepsis, renal failure, acidosis, acute neurological disease, and persistent tachyarrhythmia.CBC W/PLT COUNT & AUTO DIFFERENTIAL 2019-02-17 06:15:00 Test Item Value Reference Range Interpretation Comments WHITE BLOOD CELL COUNT (BEAKER) 7.1 K/ L 4.0-10.0 (test code = 775) RED BLOOD CELL COUNT (BEAKER) 2.51 M/ L 4.20-5.80 L (test code = 761) HEMOGLOBIN (BEAKER) (test code = 7.6 GM/DL 13.0-16.8 L 410) HEMATOCRIT (BEAKER) (test code = 21.6 % 36.0-50.0 L 411) MEAN CORPUSCULAR VOLUME (BEAKER) 86.1 fL 82.0-99.0 (test code = 753) MEAN CORPUSCULAR HEMOGLOBIN 30.3 pg 27.0-33.0 (BEAKER) (test code = 751) MEAN CORPUSCULAR HEMOGLOBIN CONC 35.2 GM/DL 32.0-36.0 (BEAKER) (test code = 752) RED CELL DISTRIBUTION WIDTH 18.4 % 12.0-15.0 H (BEAKER) (test code = 412) PLATELET COUNT (BEAKER) (test 281 K/CU MM 150-430 code = 756) MEAN PLATELET VOLUME (BEAKER) 9.8 fL 6.0-11.5 (test code = 754) NUCLEATED RED BLOOD CELLS 0 /100 WBC 0-0 (BEAKER) (test code = 413) NEUTROPHILS RELATIVE PERCENT 58 % (BEAKER) (test code = 429) LYMPHOCYTES RELATIVE PERCENT 17 % (BEAKER) (test code = 430) MONOCYTES RELATIVE PERCENT 14 % (BEAKER) (test code = 431) EOSINOPHILS RELATIVE PERCENT 9 % (BEAKER) (test code = 432) BASOPHILS RELATIVE PERCENT 1 % (BEAKER) (test code = 437) NEUTROPHILS ABSOLUTE COUNT 4.11 K/ L 1.80-8.00 (BEAKER) (test code = 670) LYMPHOCYTES ABSOLUTE COUNT 1.21 K/ L 1.48-4.50 L (BEAKER) (test code = 414) MONOCYTES ABSOLUTE COUNT (BEAKER) 1.02 K/ L 0.00-1.30 (test code = 415) EOSINOPHILS ABSOLUTE COUNT 0.66 K/ L 0.00-0.50 H (BEAKER) (test code = 416) BASOPHILS ABSOLUTE COUNT (BEAKER) 0.05 K/ L 0.00-0.20 (test code = 417) IMMATURE GRANULOCYTES-RELATIVE 1 % 0-0 H PERCENT (BEAKER) (test code = 2801) RAD, CHEST, 1 VIEW, NON [id number] 00:02:00Reason for exam:- >PNEUMONIAShould this be performed at the bedside?->YesFINAL REPORT Portable chest. MEDICAL HISTORY: Pneumonia. COMPARISON STUDY: Noneavailable. FINDINGS: The cardiac silhouette is enlarged. A stent is seen in the aorta and right jugular region. There is also a stent in the right subclavian region. There are postsurgical changes in several left-sided ribs with several old, healed left-sided rib fractures. No pleural effusion or pneum othorax is seen. Some pulmonary venous congestion is identified. IMPRESSION:1. Old left-sided rib fractures.2. Cardiomegaly.3. Findings suggestive of mild volume overload. Signed: [facility] Verified Date/Time: 02/17/2019 00:02:21 Reading Location: [address] Consult Reading Room TROPONIN [id number] 19:17:00 Test Item Value Reference Range Interpretation Comments TROPONIN I (BEAKER) (test code = 0.04 ng/mL 0.00-0.15 397) Troponin I (TnI) levels must be interpreted in the context of the presenting symptoms and the clinical findings. Elevated TnI levels indicate myocardial damage, but are not specific for ischemic heart disease. Elevated TnI levels are seen in patients with other cardiac conditions (including myocarditis and congestive heart failure), and slight TnI elevations occur in patients with other conditions, including sepsis, renal failure, acidosis, acute neurological disease, and persistent tachyarrhythmia.COMPREHENSIVE METABOLIC [id number] 19:13:00 Test Item Value Reference Range Interpretation Comments TOTAL PROTEIN 8.3 gm/dL 6.0-8.5 Specimen moder ately (BEAKER) (test code = hemoly zed 770) ALBUMIN (BEAKER) 3.7 g/dL 3.5-5.0 Specimen mo derately (test code = 1145) hemolyzed ALKALINE PHOSPHATASE 113 U/L 30-115 (BEAKER) (test code = 346) BILIRUBIN TOTAL 0.3 mg/dL 0.1-1.2 Specimen mod erately (BEAKER) (test code = hemoly zed 377) SODIUM (BEAKER) (test 142 meq/L 135-148 code = 381) POTASSIUM (BEAKER) 5.8 meq/L 3.6-5.5 H Specimen moderately (test code = 379) hemolyzed CHLORIDE (BEAKER) 99 meq/L 98-106 (test code = 382) CO2 (BEAKER) (test 25 meq/L 20-29 code = 355) BLOOD UREA NITROGEN 90 mg/dL 10-26 H (BEAKER) (test code = 354) CREATININE (BEAKER) 11.62 mg/dL 0.50-1.20 H Specimen moderately (test code = 358) hemolyzed GLUCOSE RANDOM 125 mg/dL 70-110 H (BEAKER) (test code = 652) CALCIUM (BEAKER) 10.1 mg/dL 8.5-10.5 (test code = 697) AST (SGOT) (BEAKER) 27 U/L 5-40 Specimen moderately (test code = 353) hemolyzed ALT (SGPT) (BEAKER) 26 U/L 5-50 Specimen moderately (test code = 347) hemolyzed EGFR (BEAKER) (test 6 mL/min/1.73 ESTIMAT ED GFR IS code = 1092) sq m NOT ACCURATE CREATININE CLEARANCE IN PREDICTING GLOMERULAR FILTRATION RATE . ESTIMATED GFR I S NOT APPLICABLE FOR DIALYSIS PATIEN TS. [id number] 19:10:00 Test Item Value Reference Range Interpretation Comments MAGNESIUM (BEAKER) 2.1 mg/dL 1.5-3.0 Specimen moderately (test code = 627) hemolyzed CBC W/PLT COUNT & AUTO [id number] 18:47:00 Test Item Value Reference Range Interpretation Comments WHITE BLOOD CELL COUNT (BEAKER) 7.7 K/ L 4.0-10.0 (test code = 775) RED BLOOD CELL COUNT (BEAKER) 2.52 M/ L 4.20-5.80 L (test code = 761) HEMOGLOBIN (BEAKER) (test code = 7.4 GM/DL 13.0-16.8 L 410) HEMATOCRIT (BEAKER) (test code = 21.8 % 36.0-50.0 L 411) MEAN CORPUSCULAR VOLUME (BEAKER) 86.5 fL 82.0-99.0 (test code = 753) MEAN CORPUSCULAR HEMOGLOBIN 29.4 pg 27.0-33.0 (BEAKER) (test code = 751) MEAN CORPUSCULAR HEMOGLOBIN CONC 33.9 GM/DL 32.0-36.0 (BEAKER) (test code = 752) RED CELL DISTRIBUTION WIDTH 18.8 % 12.0-15.0 H (BEAKER) (test code = 412) PLATELET COUNT (BEAKER) (test 332 K/CU MM 150-430 code = 756) MEAN PLATELET VOLUME (BEAKER) 10.8 fL 6.0-11.5 (test code = 754) NUCLEATED RED BLOOD CELLS 0 /100 WBC 0-0 (BEAKER) (test code = 413) NEUTROPHILS RELATIVE PERCENT 54 % (BEAKER) (test code = 429) LYMPHOCYTES RELATIVE PERCENT 25 % (BEAKER) (test code = 430) MONOCYTES RELATIVE PERCENT 11 % (BEAKER) (test code = 431) EOSINOPHILS RELATIVE PERCENT 9 % (BEAKER) (test code = 432) BASOPHILS RELATIVE PERCENT 1 % (BEAKER) (test code = 437) NEUTROPHILS ABSOLUTE COUNT 4.14 K/ L 1.80-8.00 (BEAKER) (test code = 670) LYMPHOCYTES ABSOLUTE COUNT 1.95 K/ L 1.48-4.50 (BEAKER) (test code = 414) MONOCYTES ABSOLUTE COUNT (BEAKER) 0.88 K/ L 0.00-1.30 (test code = 415) EOSINOPHILS ABSOLUTE COUNT 0.65 K/ L 0.00-0.50 H (BEAKER) (test code = 416) BASOPHILS ABSOLUTE COUNT (BEAKER) 0.05 K/ L 0.00-0.20 (test code = 417) IMMATURE GRANULOCYTES-RELATIVE 0 % 0-0 PERCENT (BEAKER) (test code = 2801) BLOOD [id number] 07:18:00 Test Item Value Reference Range Interpretation Comments Culture Observations (test NO GROWTH AFTER 5 code = COB1) DAYS BLOOD [id number] 07:18:00 Test Item Value Reference Range Interpretation Comments Culture Observations (test NO GROWTH AFTER 5 code = COB1) DAYS HEPATITIS B CORE ANTIBODY,[id number] 12:26:00 Test Item Value Reference Range Interpretation Comments HEPATITIS B CORE AB NON-REACTIVE NON-REACTIVE TEST PER FORMED TOTAL (test code = AT:[facility] [id number]) [id number] [place] [address]RXCAIKAI SANTIAGO M.D. XR CHEST 1 [id number] 08:09:24 Location of dictation: [id number] chest one view.HISTORY: J81.1: CHRONIC PULMONARY EDEMACOMMENT: Compared to one day prior. The heart is enlarged but stable, globularappearance suggests pericardial eff usion. Small effusions are now presentslightly greater on the left. No new consolidation, pneumothorax seen.Impression:1. Stable cardiomegaly with concern for pericardial effusion.2. Interval development of small effusions slightly greater on the left.BASIC METABOLIC [id number] 07:14:00 Test Item Value Reference Range Interpretation Comments GLUCOSE (test code = 06D) 102 mg/dL 75-100 H SODIUM (test code = 01A) 125 mmol/L 136-145 L POTASSIUM (test code = 01B) 5.9 mmol/L 3.6-5.1 HH CHLORIDE (test code = 04A) 87 mmol/L 98-107 L CO2 (test code = 02A) 24 mmol/L 22-32 ANION GAP (test code = ANG) 19.9 mmol/L BUN (test code = 05D) 79 mg/dL 7-18 H CREATININE (test code = 03E) 9.4 mg/dL 0.7-1.3 H BUN/CREA (test code = BCR) 8 12-20 L CALCIUM (test code = 09D) 8.8 mg/dL 8.3-9.5 CBC (INCLUDES AUTOMATED DIFFERENTIAL)2017-09-08 06:21:00 Test Item Value Reference Range Interpretation Comments WBC (test code = WBC) 12.1 10\S\3/uL 4.5-11.0 H RBC (test code = RBC) 3.19 10\S\6/uL 4.30-5.70 L HGB (test code = HBG) 9.2 g/dL 14.0-18.0 L HCT (test code = HCT) 27.6 % 35.0-46.0 L MCV (test code = MCV) 86.5 fL 80.0-94.0 MCH (test code = MCH) 28.8 pg 27.0-31.0 MCHC (test code = MCHC) 33.3 g/dL 32.0-36.0 RDW (test code = RDW) 15.6 % 11.5-14.5 H PLT (test code = PLT) 320 10\S\3/uL 130-400 MPV (test code = MPV) 10.6 fL 9.4-12.4 NEUTROP # (test code = NE#) 9.7 10\S\3/uL 2.0-8.0 H LYMPH # (test code = LY#) 0.4 10\S\3/uL 1.2-4.0 L MONOCYTE # (test code = MO#) 1.8 10\S\3/uL 0.0-1.1 H EOSINOPH # (test code = EO#) 0.1 10\S\3/uL 0.0-0.7 BASOPHIL # (test code = BA#) 0.1 10\S\3/uL 0.0-0.3 IG # (test code = IG#) 0.10 10\S\3/uL 0.00-0.06 H NRBC # (test code = NRBC#) 0.03 10\S\3/uL 0.00-0.01 H NEUTROPH % (test code = NE%) 80.4 % 35.0-73.0 H LYMPH % (test code = LY%) 3.1 % 20.0-55.0 L MONO % (test code = MO%) 14.6 % 2.5-10.0 H EOSINOPH % (test code = EO%) 0.7 % 0.0-5.0 BASOPHIL % (test code = BA%) 0.4 % 0.0-2.0 IG % (test code = IG%) 0.8 % 0.0-0.8 NRBC% (test code = NRBC%) 0.2 % 0.0-0.2 MANDIFF (test code = MDIFF) NO NO RBC MORPH (test code = RBCMOR) NORMAL XR CHEST 1 [id number] 07:33:56STUDY: Chest radiographHISTORY: Fever.COMPARISON: 09/05/17TECHNIQUE: Frontal view of the chest.LOCATION: [id number]:The cardiac silhouette is enlarged, stable. Bilateral patchy perihilaropacities are similar in appearance. There is no definitive pleural effusion ordiscernible pneumothorax. No acute osseous abnormalities are identified.IMPRESSION:Stable appearance of bilateral perihilar patchy opacities and cardiomegaly.BASIC METABOLIC [id number] 04:50:00 Test Item Value Reference Range Interpretation Comments GLUCOSE (test code = 06D) 102 mg/dL 75-100 H SODIUM (test code = 01A) 130 mmol/L 136-145 L POTASSIUM (test code = 01B) 4.6 mmol/L 3.6-5.1 CHLORIDE (test code = 04A) 90 mmol/L 98-107 L CO2 (test code = 02A) 26 mmol/L 22-32 ANION GAP (test code = ANG) 18.6 mmol/L BUN (test code = 05D) 54 mg/dL 7-18 H CREATININE (test code = 03E) 8.0 mg/dL 0.7-1.3 H BUN/CREA (test code = BCR) 7 12-20 L CALCIUM (test code = 09D) 8.6 mg/dL 8.3-9.5 [id number] 04:43:00 Test Item Value Reference Range Interpretation Comments MAGNESIUM (test code = 48A) 1.7 mg/dL 1.8-2.4 L CBC (INCLUDES AUTOMATED DIFFERENTIAL)2017-09-07 04:07:00 Test Item Value Reference Range Interpretation Comments WBC (test code = WBC) 7.4 10\S\3/uL 4.5-11.0 RBC (test code = RBC) 3.10 10\S\6/uL 4.30-5.70 L HGB (test code = HBG) 9.0 g/dL 14.0-18.0 L HCT (test code = HCT) 27.0 % 35.0-46.0 L MCV (test code = MCV) 87.1 fL 80.0-94.0 MCH (test code = MCH) 29.0 pg 27.0-31.0 MCHC (test code = MCHC) 33.3 g/dL 32.0-36.0 RDW (test code = RDW) 15.5 % 11.5-14.5 H PLT (test code = PLT) 250 10\S\3/uL 130-400 MPV (test code = MPV) 10.5 fL 9.4-12.4 NEUTROP # (test code = NE#) 4.7 10\S\3/uL 2.0-8.0 LYMPH # (test code = LY#) 0.7 10\S\3/uL 1.2-4.0 L MONOCYTE # (test code = MO#) 1.5 10\S\3/uL 0.0-1.1 H EOSINOPH # (test code = EO#) 0.3 10\S\3/uL 0.0-0.7 BASOPHIL # (test code = BA#) 0.1 10\S\3/uL 0.0-0.3 IG # (test code = IG#) 0.07 10\S\3/uL 0.00-0.06 H NRBC # (test code = NRBC#) 0.00 10\S\3/uL 0.00-0.01 NEUTROPH % (test code = NE%) 63.8 % 35.0-73.0 LYMPH % (test code = LY%) 9.1 % 20.0-55.0 L MONO % (test code = MO%) 20.8 % 2.5-10.0 H EOSINOPH % (test code = EO%) 4.5 % 0.0-5.0 BASOPHIL % (test code = BA%) 0.9 % 0.0-2.0 IG % (test code = IG%) 0.9 % 0.0-0.8 H NRBC% (test code = NRBC%) 0.0 % 0.0-0.2 MANDIFF (test code = MDIFF) NO NO RBC MORPH (test code = RBCMOR) NORMAL CARDIAC [id number] 03:24:00 Test Item Value Reference Range Interpretation Comments TROPONIN I (test code = A84) 0.269 ng/mL 0.000-0.045 H CKMB (test code = A49) 7.8 ng/mL <=3.6 HH CPK (test code = 32A) 414 IU/L 39-308 H BASIC METABOLIC [id number] 03:08:00 Test Item Value Reference Range Interpretation Comments GLUCOSE (test code = 06D) 114 mg/dL 75-100 H SODIUM (test code = 01A) 132 mmol/L 136-145 L POTASSIUM (test code = 01B) 3.6 mmol/L 3.6-5.1 CHLORIDE (test code = 04A) 94 mmol/L 98-107 L CO2 (test code = 02A) 27 mmol/L 22-32 ANION GAP (test code = ANG) 14.6 mmol/L BUN (test code = 05D) 36 mg/dL 7-18 H CREATININE (test code = 03E) 6.4 mg/dL 0.7-1.3 H BUN/CREA (test code = BCR) 6 12-20 L CALCIUM (test code = 09D) 8.3 mg/dL 8.3-9.5 CBC (INCLUDES AUTOMATED DIFFERENTIAL)2017-09-06 02:56:00 Test Item Value Reference Range Interpretation Comments WBC (test code = WBC) 6.2 10\S\3/uL 4.5-11.0 RBC (test code = RBC) 2.91 10\S\6/uL 4.30-5.70 L HGB (test code = HBG) 8.4 g/dL 14.0-18.0 L HCT (test code = HCT) 25.3 % 35.0-46.0 L MCV (test code = MCV) 86.9 fL 80.0-94.0 MCH (test code = MCH) 28.9 pg 27.0-31.0 MCHC (test code = MCHC) 33.2 g/dL 32.0-36.0 RDW (test code = RDW) 15.5 % 11.5-14.5 H PLT (test code = PLT) 211 10\S\3/uL 130-400 MPV (test code = MPV) 9.8 fL 9.4-12.4 NEUTROP # (test code = NE#) 4.2 10\S\3/uL 2.0-8.0 LYMPH # (test code = LY#) 0.5 10\S\3/uL 1.2-4.0 L MONOCYTE # (test code = MO#) 1.1 10\S\3/uL 0.0-1.1 EOSINOPH # (test code = EO#) 0.2 10\S\3/uL 0.0-0.7 BASOPHIL # (test code = BA#) 0.1 10\S\3/uL 0.0-0.3 IG # (test code = IG#) 0.10 10\S\3/uL 0.00-0.06 H NRBC # (test code = NRBC#) 0.00 10\S\3/uL 0.00-0.01 NEUTROPH % (test code = NE%) 68.2 % 35.0-73.0 LYMPH % (test code = LY%) 7.6 % 20.0-55.0 L MONO % (test code = MO%) 17.7 % 2.5-10.0 H EOSINOPH % (test code = EO%) 3.9 % 0.0-5.0 BASOPHIL % (test code = BA%) 1.0 % 0.0-2.0 IG % (test code = IG%) 1.6 % 0.0-0.8 H NRBC% (test code = NRBC%) 0.0 % 0.0-0.2 MANDIFF (test code = MDIFF) NO NO RBC MORPH (test code = RBCMOR) NORMAL HEPATITIS B SURFACE [id number] 21:09:00 Test Item Value Reference Range Interpretation Comments HBSAB (test code = HBSAB) REACTIVE REACTIVE HEPATITIS B SURFACE [id number] 20:37:00 Test Item Value Reference Range Interpretation Comments HBSAG (test code = HBSAG) NON-REACTIVE NON-REACTIVE CARDIAC [id number] 20:23:00 Test Item Value Reference Range Interpretation Comments TROPONIN I (test code = A84) 0.231 ng/mL 0.000-0.045 H CKMB (test code = A49) 11.0 ng/mL <=3.6 HH CPK (test code = 32A) 469 IU/L 39-308 H PRO TIME AND [id number] 11:37:00 Test Item Value Reference Range Interpretation Comments PT (test code = 14.8 s 9.8-13.6 H TT) INR (test code = 1.3 INR) INRH (test code = SUGGESTED THERAPEUTIC INRH) RANGE FOR INR: 2.5 - 3.5 For Patients with Prosthetic Valves or Patients with recurrent Thromboembolic Events 2.0 - 3.0 For Most Other Applications PTT (test code = 34.7 s 20.2-38.0 PTT) PTTH (test code = To monitor the PTTH) effectiveness of heparin, we offer the Anti-Xa (Heparin Assay). It can be used for either unfractionated or LMW Heparin. Order Code is ANTI-XA CBC (INCLUDES AUTOMATED DIFFERENTIAL)2017-09-05 10:47:00 Test Item Value Reference Range Interpretation Comments WBC (test code = WBC) 6.1 10\S\3/uL 4.5-11.0 RBC (test code = RBC) 2.93 10\S\6/uL 4.30-5.70 L HGB (test code = HBG) 8.6 g/dL 14.0-18.0 L HCT (test code = HCT) 25.6 % 35.0-46.0 L MCV (test code = MCV) 87.4 fL 80.0-94.0 MCH (test code = MCH) 29.4 pg 27.0-31.0 MCHC (test code = MCHC) 33.6 g/dL 32.0-36.0 RDW (test code = RDW) 16.1 % 11.5-14.5 H PLT (test code = PLT) 241 10\S\3/uL 130-400 MPV (test code = MPV) 11.0 fL 9.4-12.4 NEUTROP # (test code = NE#) 4.9 10\S\3/uL 2.0-8.0 LYMPH # (test code = LY#) 0.3 10\S\3/uL 1.2-4.0 L MONOCYTE # (test code = MO#) 0.7 10\S\3/uL 0.0-1.1 EOSINOPH # (test code = EO#) 0.1 10\S\3/uL 0.0-0.7 BASOPHIL # (test code = BA#) 0.1 10\S\3/uL 0.0-0.3 IG # (test code = IG#) 0.07 10\S\3/uL 0.00-0.06 H NRBC # (test code = NRBC#) 0.00 10\S\3/uL 0.00-0.01 NEUTROPH % (test code = NE%) 80.8 % 35.0-73.0 H LYMPH % (test code = LY%) 4.4 % 20.0-55.0 L MONO % (test code = MO%) 11.1 % 2.5-10.0 H EOSINOPH % (test code = EO%) 1.8 % 0.0-5.0 BASOPHIL % (test code = BA%) 0.8 % 0.0-2.0 IG % (test code = IG%) 1.1 % 0.0-0.8 H NRBC% (test code = NRBC%) 0.0 % 0.0-0.2 MANDIFF (test code = MDIFF) NO NO RBC MORPH (test code = RBCMOR) NORMAL XR CHEST 1 VIEW [id number] 10:04:30EXAMINATION: XR CHEST 1 VIEW PORTABLE.LOCATION: D4.HISTORY: Chest pain, dyspnea.COMPARISON: Chest x-ray 09/01/2017.FINDINGS:Examination is limited due to portable technique and low lung volumes.Cardiac silhouette/Mediastinal contour: Persistent enlargement of cardiacsilhouette. Lungs: Patchy bilateral scattered airspace opacities, essentially unchanged.Tiny bilateral pleural effusions. Osseous Structures: No acute osseous abnormalities.Vascular stent and postoperative clips project over left mid arm.IMPRESSION:Patchy bilateral scattered airspace opacities with tiny effusions, unchangedsince 09/01/2017,probably reflect vascular congestion.OCCULT [id number] 11:04:00 Test Item Value Reference Range Interpretation Comments Direct Exam (test code NEGATIVE FOR OCCULT = DE3) BLOOD COMPREHENSIVE METABOLIC BARNETT *WW*2017-09-03 10:15:00 Test Item Value Reference Range Interpretation Comments GLUCOSE (test code = 06D) 120 mg/dL 75-100 H SODIUM (test code = 01A) 135 mmol/L 136-145 L POTASSIUM (test code = 01B) 3.7 mmol/L 3.6-5.1 CHLORIDE (test code = 04A) 95 mmol/L 98-107 L CO2 (test code = 02A) 22 mmol/L 22-32 ANION GAP (test code = ANG) 21.6 mmol/L BUN (test code = 05D) 79 mg/dL 7-18 H CREATININE (test code = 03E) 12.7 mg/dL 0.7-1.3 H BUN/CREA (test code = BCR) 6 12-20 L CALCIUM (test code = 09D) 7.2 mg/dL 8.3-9.5 L BILI TOTAL (test code = 11A) 0.6 mg/dL 0.2-1.0 PROTEIN (test code = 07D) 7.3 g/dL 6.4-8.2 ALBUMIN (test code = 08D) 2.3 g/dL 3.5-4.8 L GLOBULIN (test code = GLB) 4.9 g/dL 1.5-3.8 H ALB/GLOB (test code = AGRR) 0.5 1.0-2.6 L ALK PHOS (test code = 35A) 106 IU/L 42-121 AST (test code = 30A) 23 IU/L <=42 ALT (test code = 31A) 27 IU/L <=78 CBC (INCLUDES AUTOMATED DIFFERENTIAL)*[id number] 09:07:00 Test Item Value Reference Range Interpretation Comments WBC (test code = WBC) 8.9 10\S\3/uL 4.5-11.0 RBC (test code = RBC) 2.87 10\S\6/uL 4.30-5.70 L HGB (test code = HBG) 8.6 g/dL 14.0-18.0 L HCT (test code = HCT) 23.6 % 35.0-46.0 LL MCV (test code = MCV) 82.2 fL 80.0-94.0 MCH (test code = MCH) 30.0 pg 27.0-31.0 MCHC (test code = MCHC) 36.4 g/dL 32.0-36.0 H RDW (test code = RDW) 15.6 % 11.5-14.5 H PLT (test code = PLT) 231 10\S\3/uL 130-400 MPV (test code = MPV) 9.2 fL 9.4-12.4 L NEUTROP # (test code = NE#) 7.7 10\S\3/uL 2.0-8.0 LYMPH # (test code = LY#) 0.3 10\S\3/uL 1.2-4.0 L MONOCYTE # (test code = MO#) 0.6 10\S\3/uL 0.0-1.1 EOSINOPH # (test code = EO#) 0.3 10\S\3/uL 0.0-0.7 BASOPHIL # (test code = BA#) 0.0 10\S\3/uL 0.0-0.3 IG # (test code = IG#) 0.06 10\S\3/uL 0.00-0.06 NRBC # (test code = NRBC#) 0.00 10\S\3/uL 0.00-0.01 NEUTROPH % (test code = NE%) 85.8 % 35.0-73.0 H LYMPH % (test code = LY%) 3.5 % 20.0-55.0 L MONO % (test code = MO%) 6.4 % 2.5-10.0 EOSINOPH % (test code = EO%) 3.3 % 0.0-5.0 BASOPHIL % (test code = BA%) 0.3 % 0.0-2.0 IG % (test code = IG%) 0.7 % 0.0-0.8 NRBC% (test code = NRBC%) 0.0 % 0.0-0.2 MANDIFF (test code = WMDIFF) NO NO RBC MORPH (test code = NORMAL WRBCMOR) HEPATITIS B CORE IgM ANTIBODY 2017-09-03 06:17:00 Test Item Value Reference Range Interpretation Comments HEPATITIS B CORE NON-REACTIVE NON-REACTIVE TEST PERFOR MED ANTIBODY (IGM) (test AT:[facility] code = [id number]) [id number] [place] [id number] SANTIAGO M.D. HEPATITIS B SURFACE ANTIBODY 2017-09-02 15:30:00 Test Item Value Reference Range Interpretation Comments HBSAB (test code = HBSAB) REACTIVE REACTIVE XR CHEST 2 VIEW 2017-09-01 23:21:54XR CHEST 2 VIEW *WW*Location:[address] services provided 09/01/2017 11:21 PMIndication:[id number]: Hypertensive disorderComparison:Not currently availableFindings:The heart is enlarged with mild engorgement of the pulmonaryvascularity and prominence of the pulmonary interstitium. Bilateral pleuralfluid collections are noted. No chicho lobar consolidation is seen. No acutebony abnormality.Impression:Findings concerning for cardiogenic pulmonary edema with bilateralpleural fluid collections. HEPATITIS B CORE ANTIBODY,[id number] 12:54:00 Test Item Value Reference Range Interpretation Comments HEPATITIS B CORE AB NON-REACTIVE NON-REACTIVE TEST PER FORMED TOTAL (test code = AT:[facility] [id number]) [id number] [place] [address]CLJDIKAI SANTIAGO M.D. GLUCOMETER GLUCOSE- LAB USE [id number] 06:26:00 Test Item Value Reference Range Interpretation Comments GLUCOMETER (test code = 102 mg/dL 70-100 H Mete r ID: GMG) [id number] tor: [address] NM LUNG (V/Q ) SCAN W [id number] 15:28:50Radionuclide ventilation/perfusion lung scanLocation Code: [id number]: Shortness of breathCOMPARISON:None.COMMENT: Routine images of the lungs were obtained after inhalation of 11.1 mCiof Xe133 gas andintravenous injection of 6.0 mCi 99 M technetium MAA.Ventilation is symmetric bilaterally with no focal defect. There is nosignificant trapping.Perfusion images demonstrate normal and symmetric perfusion with no segmentaldefect to suggest a PE.IMPRESSION: Normal VQ scan with a low probability of PE.BASIC METABOLIC [id number] 07:39:00 Test Item Value Reference Range Interpretation Comments GLUCOSE (test code = 06D) 92 mg/dL 75-100 SODIUM (test code = 01A) 135 mmol/L 136-145 L POTASSIUM (test code = 01B) 4.0 mmol/L 3.6-5.1 CHLORIDE (test code = 04A) 96 mmol/L 98-107 L CO2 (test code = 02A) 25 mmol/L 22-32 ANION GAP (test code = ANG) 18.0 mmol/L BUN (test code = 05D) 66 mg/dL 7-18 H CREATININE (test code = 03E) 11.1 mg/dL 0.7-1.3 H BUN/CREA R (test code = BCR) 6 12-20 L CALCIUM (test code = 09D) 8.1 mg/dL 8.3-9.5 L CBC (INCLUDES AUTOMATED DIFFERENTIAL)2016-05-13 07:10:00 Test Item Value Reference Range Interpretation Comments WBC (test code = WBC) 6.1 10\S\3/uL 4.5-11.0 RBC (test code = RBC) 4.05 10\S\6/uL 4.30-5.70 L HGB (test code = HBG) 12.1 g/dL 14.0-18.0 L HCT (test code = HCT) 34.6 % 35.0-46.0 L MCV (test code = MCV) 85.4 fL 80.0-94.0 MCH (test code = MCH) 29.9 pg 27.0-31.0 MCHC (test code = MCHC) 35.0 g/dL 32.0-36.0 RDW (test code = RDW) 15.9 % 11.5-14.5 H PLT (test code = PLT) 135 10\S\3/uL 130-400 MPV (test code = MPV) 11.1 fL 9.4-12.4 NEUTROP # (test code = NE#) 4.8 10\S\3/uL 2.0-8.0 LYMPH # (test code = LY#) 0.4 10\S\3/uL 1.2-4.0 L MONOCYTE # (test code = MO#) 0.6 10\S\3/uL 0.0-1.1 EOSINOPH # (test code = EO#) 0.1 10\S\3/uL 0.0-0.7 BASOPHIL # (test code = BA#) 0.1 10\S\3/uL 0.0-0.3 IG # (test code = IG#) 0.02 10\S\3/uL 0.00-0.06 NRBC # (test code = NRBC#) 0.00 10\S\3/uL 0.00-0.01 NEUTROPH % (test code = NE%) 79.6 % 35.0-73.0 H LYMPH % (test code = LY%) 7.1 % 20.0-55.0 L MONO % (test code = MO%) 9.9 % 2.5-10.0 EOSINOPH % (test code = EO%) 2.3 % 0.0-5.0 BASOPHIL % (test code = BA%) 0.8 % 0.0-2.0 IG % (test code = IG%) 0.3 % 0.0-0.8 NRBC% (test code = NRBC%) 0.0 % 0.0-0.2 MANDIFF (test code = MDIFF) NO NO RBC MORPH (test code = RBCMOR) NORMAL HEPATITIS B SURFACE [id number] 18:54:00 Test Item Value Reference Range Interpretation Comments HBSAB (test code = HBSAB) REACTIVE REACTIVE HEPATITIS B SURFACE [id number] 18:37:00 Test Item Value Reference Range Interpretation Comments HBSAG (test code = HBSAG) NON-REACTIVE NON-REACTIVE CARDIAC [id number] 18:35:00 Test Item Value Reference Range Interpretation Comments TROPONIN I (test code = A84) 0.115 ng/mL 0.000-0.045 H CKMB (test code = A49) 7.0 ng/mL <=3.6 HH CPK (test code = 32A) 652 IU/L 39-308 H CARDIAC [id number] 14:04:00 Test Item Value Reference Range Interpretation Comments TROPONIN I (test code = A84) 0.120 ng/mL 0.000-0.045 H CKMB (test code = A49) 7.4 ng/mL <=3.6 HH CPK (test code = 32A) 651 IU/L 39-308 H GLUCOMETER GLUCOSE- LAB USE [id number] 11:12:00 Test Item Value Reference Range Interpretation Comments GLUCOMETER (test code = 99 mg/dL 70-100 LIGIA BRUNA METERMeter ID: GMG) [id number] tor: 4842 MARLENE CHEW OWO GLUCOMETER GLUCOSE- LAB USE [id number] 04:22:00 Test Item Value Reference Range Interpretation Comments GLUCOMETER (test code = 116 mg/dL 70-100 H Mete r ID: GMG) [id number] tor: 4316 CORKY HOLMAN GLUCOMETER GLUCOSE- LAB USE [id number] 03:33:00 Test Item Value Reference Range Interpretation Comments GLUCOMETER (test code = 42 mg/dL 70-100 LL Mete r ID: GMG) [id number] tor: 4316 CORKY MAHONEY BRAIN NATRIURETIC [id number] 02:13:00 Test Item Value Reference Range Interpretation Comments proBNP (test code = PBNP) >179973 pg/mL 0-125 H XR ABDOMEN 2 VIEWS W/PA [id number] 02:11:50-CHEST AP VIEW-ABDOMEN AP AND UPRIGHT VIEWS LOCATION: [id number] INDICATION: Vomiting and shortnessof breathCOMPARISON: None FINDINGS: I- CHEST The lungs are clear. No pleural effusions or pneumothorax.The heart size is at the upper limits of normal or mildly enlarged. No acuteosseous abnormality. The visualized thoracic soft tissues are unremarkable. II-ABDOMENThere is paucity of small bowel gas in the pelvis. No free intraperitoneal airor pneumatosis. No fluid levels. There is no organomegaly. No calcificdensities are present overlying the abdomen. IMPRESSION:* No evidence of acute chest pathology. * Paucity of small bowel gas in the pelvis. If there is high clinicalsuspicion of intestinal obstruction, CT is recommended for further assessment.CARDIAC [id number] 01:33:00 Test Item Value Reference Range Interpretation Comments TROPONIN I (test code = A84) 0.147 ng/mL 0.000-0.045 H CKMB (test code = A49) 7.0 ng/mL <=3.6 HH CPK (test code = 32A) 688 IU/L 39-308 H COMPREHENSIVE METABOLIC [id number] 01:32:00 Test Item Value Reference Range Interpretation Comments GLUCOSE (test code = 06D) 84 mg/dL 75-100 SODIUM (test code = 01A) 136 mmol/L 136-145 POTASSIUM (test code = 01B) 5.7 mmol/L 3.6-5.1 HH CHLORIDE (test code = 04A) 96 mmol/L 98-107 L CO2 (test code = 02A) 22 mmol/L 22-32 ANION GAP (test code = ANG) 23.7 mmol/L BUN (test code = 05D) 127 mg/dL 7-18 H CREATININE (test code = 03E) 16.5 mg/dL 0.7-1.3 H BUN/CREA R (test code = BCR) 8 12-20 L CALCIUM (test code = 09D) 7.2 mg/dL 8.3-9.5 L BILI TOTAL (test code = 11A) 0.8 mg/dL 0.2-1.0 PROTEIN (test code = 07D) 7.0 g/dL 6.4-8.2 ALBUMIN (test code = 08D) 3.2 g/dL 3.5-4.8 L GLOBULIN (test code = GLB) 3.8 g/dL 1.5-3.8 ALB/GLOB (test code = AGRR) 0.8 1.0-2.6 L ALK PHOS (test code = 35A) 138 IU/L 42-121 H AST (test code = 30A) 126 IU/L <=42 H ALT (test code = 31A) 121 IU/L <=78 H AMYLASE AND [id number] 01:31:00 Test Item Value Reference Range Interpretation Comments AMYLASE (test code = 10A) 157 U/L 28-100 H LIPASE (test code = 60A) 224 IU/L 73-393 [id number] 01:26:00 Test Item Value Reference Range Interpretation Comments D-DIMER (test code = 687 ng/mL D-DU 0-234 H DDI) D-DIMER COMMENT (test *Level to rule out code = DDCOM) DVT or PE: <235 ng/mL D-DU* PRO TIME AND [id number] 01:26:00 Test Item Value Reference Range Interpretation Comments PT (test code = 15.0 s 9.8-13.6 H TT) INR (test code = 1.3 INR) INRH (test code = SUGGESTED THERAPEUTIC INRH) RANGE FOR INR: 2.5 - 3.5 For Patients with Prosthetic Valves or Patients with recurrent Thromboembolic Events 2.0 - 3.0 For Most Other Applications PTT (test code = 28.6 s 20.2-38.0 PTT) PTTH (test code = To monitor the PTTH) effectiveness of heparin, we offer the Anti-Xa (Heparin Assay). It can be used for either unfractinated or LMW Heparin. Order Code is ANTI-XA CBC (INCLUDES AUTOMATED DIFFERENTIAL)2016-05-12 01:13:00 Test Item Value Reference Range Interpretation Comments WBC (test code = WBC) 7.0 10\S\3/uL 4.5-11.0 RBC (test code = RBC) 1.81 10\S\6/uL 4.30-5.70 L HGB (test code = HBG) 5.4 g/dL 14.0-18.0 LL HCT (test code = HCT) 15.8 % 35.0-46.0 LL MCV (test code = MCV) 87.3 fL 80.0-94.0 MCH (test code = MCH) 29.8 pg 27.0-31.0 MCHC (test code = MCHC) 34.2 g/dL 32.0-36.0 RDW (test code = RDW) 15.1 % 11.5-14.5 H PLT (test code = PLT) 200 10\S\3/uL 130-400 MPV (test code = MPV) 11.1 fL 9.4-12.4 NEUTROP # (test code = NE#) 5.1 10\S\3/uL 2.0-8.0 LYMPH # (test code = LY#) 0.9 10\S\3/uL 1.2-4.0 L MONOCYTE # (test code = MO#) 0.9 10\S\3/uL 0.0-1.1 EOSINOPH # (test code = EO#) 0.1 10\S\3/uL 0.0-0.7 BASOPHIL # (test code = BA#) 0.0 10\S\3/uL 0.0-0.3 IG # (test code = IG#) 0.04 10\S\3/uL 0.00-0.06 NRBC # (test code = NRBC#) 0.00 10\S\3/uL 0.00-0.01 NEUTROPH % (test code = NE%) 72.6 % 35.0-73.0 LYMPH % (test code = LY%) 12.3 % 20.0-55.0 L MONO % (test code = MO%) 12.4 % 2.5-10.0 H EOSINOPH % (test code = EO%) 1.7 % 0.0-5.0 BASOPHIL % (test code = BA%) 0.4 % 0.0-2.0 IG % (test code = IG%) 0.6 % 0.0-0.8 NRBC% (test code = NRBC%) 0.0 % 0.0-0.2 MANDIFF (test code = MDIFF) NO NO RBC MORPH (test code = RBCMOR) NORMAL
[2021-11-20] MEDS ORDERED: BUPIVACAINE 0.5% PF 10 ML VIAL ONE (10:57)
[2021-11-20] MEDS ORDERED: LIDOCAINE 1% MPF 5 ML VIAL ONE (10:57)
--- NOTE | 2021-11-20 10:57 | RAD REPORT ---
EXAM DESCRIPTION: CT - CTHCSPWOC - 11/20/2021 10:37 am CLINICAL HISTORY: Trauma, head and neck injury. head injury COMPARISON: No comparisons TECHNIQUE: Axial 5 mm thick images of the head were obtained. Axial 2 mm thick images of the cervical spine were obtained with sagittal and coronal reconstruction images generated and reviewed. All CT scans are performed using dose optimization technique as appropriate and may include automated exposure control or mA/KV adjustment according to patient size. FINDINGS: CT HEAD WITHOUT CONTRAST: No acute hemorrhage, hydrocephalus or extra-axial collection is identified.No areas of brain edema or midline shift. Chronic small vessel ischemic changes. The paranasal sinuses and mastoids are clear.The calvarium is intact. CT CERVICAL SPINE WITHOUT CONTRAST: No fracture or subluxation.Fusion at C5-6 which may be developmental. This results in moderate centra l spinal stenosis.No prevertebral soft tissues swelling is identified. Right subclavian vein stent. IMPRESSION: No acute intracranial or cervical spine findings.
--- NOTE | 2021-11-20 12:59 | EDPHYS ---
Physician Documentation [facility] Name: Velasquez Cruz Age: 46 yrs Sex: Male : 1975 Arrival Date: 11/20/2021 Time: 09:49 Bed 9 Private MD: ED Physician Jorje March Historical: - PMHx: 11/20 10:12 Anemia; CHF; Hypertension; M W F dialysis; [facility] - PSHx: 10:12 left arm dialysis access; [facility] - Immunization history:: Adult Immunizations up to date. - Social history:: Smoking status: Patient reports the use of cigarette tobacco products, smokes one pack cigarettes per day. Vital Signs: 10:08 Pulse 61; Resp 18; Temp 98.7; Pulse Ox 98% ; Weight 82.55 kg; Height 5 ft. 8 in. jh5 (172.72 cm); Pain 8/10; 12:57 BP 142 / 84; ss 10:08 Body Mass Index 27.67 (82.55 kg, 172.72 cm) [facility] Laceration: 11:59 Wound Repair of 3cm ( 1.2in ) subcutaneous laceration to left ear. Distal [facility] neuro/vascular/tendon intact. Anesthesia: Regional Block with 4 mls of Lido/Marcaine. Wound prep: Simple cleansing with betadine by dc. Skin closed with 6 6-0 Prolene using simple sutures and sterile technique. Patient tolerated well. MDM: 10:30 Patient medically screened. [facility] 12:57 Data reviewed: vital signs, nurses notes. Counseling: I had a detailed discussion with [facility] the patient and/or guardian regarding: the historical points, exam findings, and any diagnostic results supporting the discharge/admit diagnosis, radiology results, the need for outpatient follow up, to return to the emergency department if symptoms worsen or persist or if there are any questions or concerns that arise at home. 11/20 10:30 Order name: CT Head C Spine; Complete Time: 11:05 [facility] 11/20 11:56 [facility] Order: Ear wrap, gauze behind and infront of auricle, pressure [facility] dressing.; Complete Time: 12:57 Administered Medications: 10:59 Drug: Marcaine (bupivacaine) (0.5 %) 10 ml {Note: administered by PA. Yehuda} Volume: 10 ss ml; Route: Infiltration; 11:00 Drug: Lidocaine (1 %) 20 ml {Note: administered now by PA. Yehuda} Volume: 20 ml; Route: ss Infiltration; Disposition: 15:35 Co-signature as Attending Physician, Jorje March MD I agree with the assessment and kdr plan of care. Disposition Summary: 11/20/21 12:58 Discharge Ordered Location: Home jmm Condition: Stable jmm Diagnosis - Laceration of the Left Ear jmm - Head Injury jmm Followup: jmm - With: Private Physician - When: 7 - 10 days - Reason: Recheck today's complaints, Continuance of care, Staple/Suture removal, Re-evaluation by your physician Followup: jmm - With: Heather Desai MD - When: 7 - 10 days - Reason: Recheck today's complaints, Continuance of care, Re-evaluation by your physician Discharge Instructions: - Discharge Summary Sheet jmm - Head Injury, Adult jmm - Facial Laceration jmm Forms: - Medication Reconciliation Form jmm - Thank You Letter jmm - Antibiotic Education jmm - Prescription Opioid Use jm Signatures: Dispatcher [employer] EDMS Jorje March MD MD [facility] Yehuda Lugo PA PA jmm Smirch, Shelby, OLIVIA RN Emily Avila RN RN jh5
--- NOTE | 2021-11-20 12:59 | ER ---
Nurse's Notes [facility] Name: Velasquez Cruz Age: 46 yrs Sex: Male : 1975 Arrival Date: 11/20/2021 Time: 09:49 Bed 9 Private MD: Diagnosis: Laceration of the Left Ear;Head Injury Presentation: 11/20 10:08 Chief complaint: Patient states: Pt from [facility] with caregiver; rolled out jh5 of bed and hit left ear and states ear was bleeding. Facility wrapped pt entire head in gauze. Pt denies blood thinners, is AAOX4, ambulatory independently, speech is clear and appropriate. Coronavirus screen: Vaccine status: Patient reports receiving the 2nd dose of the covid vaccine. Client denies travel out of the [place] in the last 14 days. Ebola Screen: Patient negative for fever greater than or equal to 101.5 degrees Fahrenheit, and additional compatible Ebola Virus Disease symptoms Patient denies exposure to infectious person. Patient denies travel to an Ebola-affected area in the 21 days before illness onset. Initial Sepsis Screen: Does the patient meet any 2 criteria? No. Patient's initial sepsis screen is negative. Does the patient have a suspected source of infection? No. Patient's initial sepsis screen is negative. Risk Assessment: Do you want to hurt yourself or someone else? Patient reports no desire to harm self or others. Onset of symptoms was October 2021. 10:08 Method Of Arrival: Ambulatory [facility] 10:08 Acuity: HEAVEN 4 5 Triage Assessment: 10:12 General: Appears in no apparent distress. Behavior is calm, cooperative, appropriate [facility] for age. Pain: Complains of pain in left ear. Historical: - PMHx: 10:12 Anemia; CHF; Hypertension; M W F dialysis; jh5 - PSHx: 10:12 left arm dialysis access; 5 - Immunization history:: Adult Immunizations up to date. - Social history:: Smoking status: Patient reports the use of cigarette tobacco products, smokes one pack cigarettes per day. Screenin:13 Abuse screen: Denies threats or abuse. Denies injuries from another. Nutritional 5 screening: No deficits noted. Tuberculosis screening: No symptoms or risk factors identified. Fall Risk None identified. Assessment: 13:10 General: Appears in no apparent distress. comfortable, Behavior is calm, cooperative. ss Neuro: Level of Consciousness is awake, alert, obeys commands, Oriented to person, place, time, situation. Cardiovascular: Capillary refill < 3 seconds is brisk in bilateral fingers. Respiratory: Airway is patent Respiratory effort is even, unlabored, Respiratory pattern is regular, symmetrical. Derm: Skin is intact, is healthy with good turgor, Skin is dry, Skin is pink, warm \T\ dry. normal. 13:12 Reassessment: report given to [facility] nurse. Vital Signs: 10:08 Pulse 61; Resp 18; Temp 98.7; Pulse Ox 98% ; Weight 82.55 kg; Height 5 ft. 8 in. [facility] (172.72 cm); Pain 8/10; 12:57 BP 142 / 84; ss 10:08 Body Mass Index 27.67 (82.55 kg, 172.72 cm) [facility] ED Course: 09:49 Patient arrived in ED. [facility] 09:49 Yehuda Lugo [facility]. [facility] 09:49 Jorje March MD is Attending Physician. [facility] 10:12 Triage completed. [facility] 10:12 Arm band placed on right wrist. [facility] 10:13 Patient has correct armband on for positive identification. Adult w/ patient. [facility] 10:25 Bed in low position. Call light in reach. Side rails up X 1. Door closed. Noise kc6 minimized. Warm blanket given. 10:39 CT Head C Spine In Process Unspecified. EDMS 10:46 [place], OLIVIA is Primary Nurse. 12:58 Heather Desai MD is Referral Physician. [facility] 12:59 Assist provider with laceration repair on left ear that was between 2.6 to 7.5 cm using ss sutures. Set up tray. Performed by Yehuda PALACIO Dressed with 4X4s, Kerlix, Patient tolerated well. Patient did not have IV access during this emergency room visit. Administered Medications: 10:59 Drug: Marcaine (bupivacaine) (0.5 %) 10 ml {Note: administered by PA. Yehuda} Volume: 10 ss ml; Route: Infiltration; 11:00 Drug: Lidocaine (1 %) 20 ml {Note: administered now by PA. Yehuda} Volume: 20 ml; Route: ss Infiltration; Medication: 13:10 VIS not applicable for this client. Outcome: 12:58 Discharge ordered by . faith 13:13 Patient left the ED. Signatures: Dispatcher [employer] EDMS Yehuda Lugo PA PA jmm Smirch, Shelby, RN RN ss Vita Del Valle [id number] Emily Avila RN RN jh5 Sarah Steele [id number]
[2021-11-20 13:24] VITALS: TEMP 98.7; O2SAT 98
[2021-11-20 13:26] VITALS: BP 142/84
== END 2021-11-20 13:13 | disposition home or self-care (01) ==
LOC: ER 09:46
PROC: 0HQ3XZZ Repair Left Ear Skin, External Approach (ICD-10-PCS; principal; 2021-11-20)
DX: S01.312A Laceration without foreign body of left ear, initial encounter (principal); S09.90XA Unspecified injury of head, initial encounter; Z99.2 Dependence on renal dialysis; I10 Essential (primary) hypertension; F17.210 Nicotine dependence, cigarettes, uncomplicated
CPT/HCPCS: 70450; 72125

== ENCOUNTER 2021-11-29 06:33 | Emergency (ER) | payer OTHER ==
--- OUTSIDE RECORDS SUMMARY | 2021-11-29 06:39 | XMS REPORT | Continuity of Care Document ---
:1975 Author Organization [facility] t Address [address] [place] [address] Care Team Providers Name Role Phone UNKNOWN, REFFERING Primary Care Physician Unavailable ENRIQUE THOMPSON Attending Clinician Unavailable [email or web address]_J Attending Clinician Unavailable Robert Mccarthy Attending Clinician [phone] Mara Padron Attending Clinician [phone] BOB Attending Clinician Unavailable LeslieJune Attending Clinician [phone] GC_BAHC_Spangler_G Attending Clinician Unavailable KHADAR CALHOUN Attending Clinician Unavailable DR KACEY GAYLE Attending Clinician Unavailable DR KHADAR CALHOUN Attending Clinician Unavailable DR ELAINE MCWILLIAMS Attending Clinician Unavailable SHAQ_BAHC_Todd_uGme Admitting Clinician Unavailable BOB Admitting Clinician Unavailable SHAQ_BAHC_Spangler_G Admitting Clinician Unavailable KHADAR CALHOUN Admitting Clinician Unavailable DR KACEY GAYLE Admitting Clinician Unavailable DR KHADAR CALHOUN Admitting Clinician Unavailable DR ELAINE MCWILLIAMS Admitting Clinician Unavailable Payers Payer Name Policy Type Policy Number Effective Date Expiration Date Karen allen [employer] [id number] 2021 MEDICARE ADVANTAGE 00:00:00 [facility] [id number] 2019 2021 [facility] 00:00:00 00:00:00 [facility] [place] - [id number] 2021 2021 [facility] - 00:00:00 00:00:00 [facility] (MEDICAID O) Problems Condition Condition Condition Status Onset Resolution Last Treating Co mments Source Name Details Category Date Date Treatment Clinician Date 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 rysm of 09-25 Health arterioven arterioven 00:00: ous ous 00 dialysis dialysis fistula fistula Complicati Complicati Disease Active [facility] on of on of 09-25 Health arterioven arterioven 00:00: ous ous 00 dialysis dialysis fistula fistula End stage End stage Disease Active [facility] renal renal 09-25 Health disease disease 00:00: 00 Problem Problem Disease Active 2018-03 [facility] with with 1-25 st dialysis dialysis 00:00: Hospit a access access 00 l AV fistula AV fistula Disease Active 2018-[address] occlusion occlusion 1-19 [facility] 00[facility] 00 Center AV fistula AV fistula Disease Active M ethodi occlusion occlusion 9-13 st 00:00: Hospita 00 l Dialysis Dialysis Disease [facility] fistula 6-11 Abbi kes malfunctio malfunctio 00:00: Me dical n, initial n, initial 00 Ce nter encounter encounter Arm DVT Arm DVT Disease Active [facility] venous venous 00:[facility]: Medical thromboemb thromboemb 00 Ce nter olism), olism), acute, acute, right right 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 Allergies, Adverse Reactions, Alerts Allergy Allergy Status Severity Reaction(s) Onset Inactive Treating Comm ents Source Name Type Date Date Clinician Nifedipi Drug Active Anxiety Hot [facility] ne Allergy 3-03 [facility] Family History Family Member Diagnosis Comments Start Date Stop Date Source Natural father Unremarkable [facility] Natural sister Unremarkable [facility] Social History Social Habit Start Date Stop Date Quantity Comments Source [facility] of [facility]igarette [facility] tobacco use Tobacco use and 2021-09-25 2021-09-25 Smokeless tobacco [facility] exposure 00:00:00 00:00:00 non-user Alcohol intake 2019-02-24 2019-02-24 Ex-drinker [facility] 00:00:00 00:00:00 (finding) Hospital Sex Assigned At [birth year] [facility] 00:00:00 00:[facility]:00 Hospital Smoking Status Start Date Stop Date Source Smokes tobacco daily 2021-09-25 00:00:[facility] Medications Ordered Filled Start Stop Current Ordering Indication Dosage Frequency Signature Comments Components Source Medication Medication Date Date Medication? Clinician (SIG) Name Name acetaminoph Yes Q12H every 12 [facility] en-codeine 09-25 (twelve) Healt h (Tylenol w/ 16:44: hours. Codeine #3) 48 300-30 MG tablet atorvastati Yes QD 1 (one) UT n (Lipitor) 6-28 time each Hea lth 20 MG 16:44: day. tablet 48 calcium Yes calcium UT acetate 09-25 acetate( Health ([facility]) 16:44: osphate 667 MG 48 binders) capsule [...] 1{capsu 1 capsule. UT rol 09-25 le} [facility] (Vitamin 16:44: D-2) 1.25 48 MG (67060 UT) capsule ferrous 0 Yes Q12H every 12 UT sulfate 325 09-25 (twelve) Heal th (65 Fe) MG 16:44: hours. tablet 48 fluticasone 0 Yes QD 1 (one) UT (Flonase) 6-28 time each Healt h 50 MCG/ACT 16:44: day. nasal spray 48 folic acid 2021-0 Yes QD 1 (one) UT (Folvite) 1 6-28 time each Hea lth MG tablet 16:44: day. 48 hydrALAZINE Yes Q8H every 8 UT (Apresoline 09-25 (eight) Healt h ) 100 MG 16:44: hours. tablet 48 lactulose Yes 30mL QD 30 mL 1 UT (Chronulac) 09-25 (one) time He alth 10 GM/15ML 16:44: each day. solution 48 lisinopril Yes QD 1 (one) UT 40 MG 09-25 time each Health tablet 16:44: day. 48 Patiromer Yes Veltassa UT Sorbitex 09-25 8.4 gram Health Calcium 16:44: oral (Veltassa) 48 powder 8.4 g pack packet one on non dialysis days tue, thur, sat sertraline Yes QD 1 (one) UT (Zoloft) 09-25 time each Health 100 MG 16:44: day. tablet 48 Lokelma 5 g 2020-03 Yes UT packet 0-11 Health 00:00: 00 albuterol 2018-03 Yes 2.5mg Q.58555228 Take 2.5 [facility] sulfate 1-[id number] (PROVENTIL) 15:53: 3D nebulizati Hospita 2.5 mg/0.5 19 on 3 l mL solution (three) for times a nebulizatio day as n needed (congestio n/cough). aspirin 325 2018-03 Yes 325mg QD Take 325 M ethodi MG tablet 1-[address] 15:53: mouth Hospita 19 daily. l amLODIPine 2018-03 Yes 10mg QD Take 10 mg M ethodi (NORVASC) 1-[address] 10 mg 15:53: daily. Hospita tablet 19 l lanolin/min 2018-03 Yes 1[drp] Q.5D Apply 1 M ethodi eral 1-[address] oil/petrola 15:53: eye 2 Hospi ta timo 19 (two) l (ARTIFICIAL times a TEARS OPHT) day. 0.4% calcium 2018-03 Yes 2001mg Q.47046840 Take 2,001 [facility] acetate 1-[id number] (PHOSLO) 15:53: 3D mouth 3 Hospit a 667 mg 19 (three) l capsule times a day with meals. Give 15 minutes before meals clonIDINE 2018-03 Yes .2mg Q.63357712 Take 0.2 [facility] HCl 1-[id number] (CATAPRES) 15:53: 3D mouth 3 Hosp carly 0.2 MG 19 (three) l tablet times a day. Hold if SBP<100, DBP<60 carvedilol 2018-03 Yes 25mg Q.5D Take 25 mg M ethodi (COREG) 25 1-[address] MG tablet 15:53: (two) Hospita 19 times a l day with meals. Hold if SBP<100, DBP<60 lactulose 2018-03 Yes 20g Q24H Take 20 g Met hodi 10 gram/15 1-[address] mL (15 mL) 15:53: daily as Hos acacia solution 19 needed l (constipat ion). LIDOCAINE 2018-03 Yes 1{appli Q12H Apply 1 Me thodi HCL TOP 1-30 cation} applicatio st 15:53: n Hospita 19 topically l every 12 (twelve) hours as needed. 3% Gel apply to right hemodialys is access as needed for pain LIDOCAINE 2018-03 Yes 1{appli Q.09237650 Apply 1 Methodi HCL TOP 1-30 cation} [id number] applicatio st 15:53: 3W n Hospita 19 topically l 3 (three) times a week. 3% Gel, Apply to right hemodialys is access every day shift every Mon, Wed,, Fri. For pain prior to dialysis lisinopril 2018-03 Yes 40mg QD Take 40 mg M ethodi (PRINIVIL) 1-[address] 40 mg 15:53: daily. Hospita tablet 19 Hold if l SBP<100, DBP<60 omeprazole 2018-03 Yes 20mg QD Take 20 mg M ethodi (PriLOSEC) 1-[address] 20 MG 15:53: daily. Hospita capsule 19 l polyethylen 2018-03 Yes 17g QD Take 17 g M ethodi e glycol 1-[address] (MIRALAX) 15:53: daily. Hospit a 17 gram 19 l packet amino 2018-03 Yes 30mL Q.97036643 Take 30 mL Methodi acids/prote 1-30 [id number] by mouth [address] in 15:53: 3D (three) Hospita hydr/fiber 19 times a l (PRO-STAT day. RENAL CARE ORAL) senna 2018-03 Yes 2{tbl} Q12H Take 2 Methodi (SENOKOT) 1-[address] 8.6 mg 15:53: mouth Hospita tablet 19 every 12 l (twelve) hours. traMADol 2018-03 Yes [id number] 50mg Q6H Take 50 mg Me thodi (ULTRAM) 50 1-[address] mg tablet 15:53: every 6 Hospi ta 19 (six) l hours as needed for moderate pain .Acute Pain. aspirin 325 2018-03 Yes 325mg QD Take 325 M ethodi MG tablet 1-[address] 15:53: mouth Hospita 19 daily. l acetaminoph 2018-03 Yes 1000mg Q6H Take 1,000 Methodi en 1-[address] (TYLENOL) 15:53: mouth Hospita 500 MG 19 every 6 l tablet (six) hours as needed for mild pain. zinc 2018-03 Yes 220mg QD Take 220 Methodi sulfate 1-[address] (ZINCATE) 15:53: mouth Hospita 220 (50) mg 19 daily. l capsule cetirizine 2018-03 Yes 10mg QD Take 10 mg M ethodi (ZyrTEC) 10 1-[address] MG tablet 15:53: daily. Hospit a 19 l melatonin 3 2018-03 Yes 3mg QD Take 3 mg M ethodi mg tablet 1-[address] 15:53: nightly as Hospita 19 needed for l sleep. amLODIPine 2018-03 Yes 10mg QD Take 10 mg M ethodi (NORVASC) 1-[address] 10 mg 15:53: daily. Hospita tablet 19 l lanolin/min 2018-03 Yes 1[drp] Q.5D Apply 1 M ethodi eral 1-[address] oil/petrola 15:53: eye 2 Hospi ta timo 19 (two) l (ARTIFICIAL times a TEARS OPHT) day. 0.4% calcium 2018-03 Yes 2001mg Q.87616412 Take 2,001 [facility]i acetate 1-[id number] (PHOSLO) 15:53: 3D mouth 3 Hospit a 667 mg 19 (three) l capsule times a day with meals. Give 15 minutes before meals clonIDINE 2018-03 Yes .2mg Q.01981065 Take 0.2 Methodi HCl 1-[id number] (CATAPRES) 15:53: 3D mouth 3 Hosp carly 0.2 MG 19 (three) l tablet times a day. Hold if SBP<100, DBP<60 carvedilol 2018-03 Yes 25mg Q.5D Take 25 mg M ethodi (COREG) 25 1-[address] MG tablet 15:53: (two) Hospita 19 times a l day with meals. Hold if SBP<100, DBP<60 lactulose 2018-03 Yes 20g Q24H Take 20 g Met hodi 10 gram/15 1-[address] mL (15 mL) 15:53: daily as Hos acacia solution 19 needed l (constipat ion). LIDOCAINE 2018-03 Yes 1{appli Q12H Apply 1 Me thodi HCL TOP 1-30 cation} applicatio st 15:53: n Hospita 19 topically l every 12 (twelve) hours as needed. 3% Gel apply to right hemodialys is access as needed for pain LIDOCAINE 2018-03 Yes 1{appli Q.39192014 Apply 1 Methodi HCL TOP 1-30 cation} [id number] applicatio st 15:53: 3W n Hospita 19 topically l 3 (three) times a week. 3% Gel, Apply to right hemodialys is access every day shift every Mon, Wed,, Fri. For pain prior to dialysis lisinopril 2018-03 Yes 40mg QD Take 40 mg M ethodi (PRINIVIL) 1-[address] 40 mg 15:53: daily. Hospita tablet 19 Hold if l SBP<100, DBP<60 omeprazole 2018-03 Yes 20mg QD Take 20 mg M ethodi (PriLOSEC) 1-[address] 20 MG 15:53: daily. Hospita capsule 19 l polyethylen 2018-03 Yes 17g QD Take 17 g M ethodi e glycol 1-[address] (MIRALAX) 15:53: daily. Hospit a 17 gram 19 l packet amino 2018-03 Yes 30mL Q.[id number] Take 30 mL [facility]i acids/prote 1-30 [id number] by mouth [address] in 15:53: 3D (three) Hospita hydr/fiber 19 times a l (PRO-STAT day. RENAL CARE ORAL) senna 2018-03 Yes 2{tbl} Q12H Take 2 Methodi (SENOKOT) 1-[address] 8.6 mg 15:53: mouth Hospita tablet 19 every 12 l (twelve) hours. traMADol 2018-03 Yes 19653 50mg Q6H Take 50 mg Me thodi (ULTRAM) 50 1-[address] mg tablet 15:53: every 6 Hospi ta 19 (six) l hours as needed for moderate pain .Acute Pain. acetaminoph 2018-03 Yes 1000mg Q6H Take 1,000 Methodi en 1-[address] (TYLENOL) 15:53: mouth Hospita 500 MG 19 every 6 l tablet (six) hours as needed for mild pain. zinc 2018-03 Yes 220mg QD Take 220 Methodi sulfate 1-[address] (ZINCATE) 15:53: mouth Hospita 220 (50) mg 19 daily. l capsule cetirizine 2018-03 Yes 10mg QD Take 10 mg M ethodi (ZyrTEC) 10 1-[address] MG tablet 15:53: daily. Hospit a 19 l melatonin 3 2018-03 Yes 3mg QD Take 3 mg M ethodi mg tablet 1-[address] 15:53: nightly as Hospita 19 needed for l sleep. albuterol 2018-03 Yes 2.5mg Q.77527920 Take 2.5 Methodi sulfate 1-[id number] (PROVENTIL) 15:53: 3D nebulizati Hospita 2.5 mg/0.5 19 on 3 l mL solution (three) for times a nebulizatio day as n needed (congestio n/cough). amLODIPine 2018-03 Yes hypertensio 5mg QD Take [address] [facility] (NORVASC) 1-21 n by mouth [facility] 10 MG 22:13: daily. Medical tablet 44 Center hydroxyprop 2018-03 Yes dry eye 1[drp] Q.5D Place [address] [facility] yl 1-21 drop into [facility] methylcellu 22:13: both eyes M edical lose 44 2 (two) Center (ISOPTO times TEARS) 2.5 daily % Artificial ophthalmic tears solution solution 0.4% (hypromell ose) . aspirin 325 2018-03 Yes acute 325mg QD Take [address] MG tablet 1-21 myocardial mg by Mike es 22:13: infarction mouth Medica l 44 daily. Center calcium 2018-03 Yes 667mg Q.71722580 Take [address] acetate 1-21 [id number] mg by [facility] (PHOSLO) 22:13: 3D mouth 3 Medica l 667 mg 44 (three) Center capsule times daily. cloNIDine 2018-03 Yes hypertensio .2mg Q.39209515 Take 0.[address] HCl 1-21 n [id number] mg by [facility] (CATAPRES) 22:13: 3D mouth 3 Medi ellyn 0.2 MG 44 (three) Center tablet times daily. carvedilol 2018-03 Yes hypertensio 25mg Take [address] (COREG) 25 1-21 n by mouth 2 Mike es MG tablet 22:13: (two) Medical 44 times Center daily with breakfast and dinner. lactulose 2018-03 Yes constipatio 20g Take [address] (CHRONULAC) 1-21 n by mouth. Mike es 10 gram/15 22:13: Medical mL (15 mL) 44 Center solution lisinopril 2018-03 Yes 40mg QD Take [address] (PRINIVIL,Z 1-21 by mouth [facility] ESTRIL) 40 22:13: daily. Medic al MG tablet 44 Center melatonin 3 2018-03 Yes 3mg Take [address] mg Tab 1-21 by mouth [facility] tablet 22:13: every Medical 44 night as Center needed. omeprazole 2018-03 Yes 20mg QD Take [address] (PRILOSEC 1-21 by mouth [facility] OTC) 20 MG 22:13: daily. Medic al tablet 44 Center polyethylen 2018-03 Yes 17g QD Take [address] e glycol 1-21 by mouth [facility] (GLYCOLAX) 22:13: daily. Medic al 17 44 Center gram/dose powder amino 2018-03 Yes 30mL Q.78744035 Take [address] acids-prote 1-21 [id number] mLs by [facility] in 22:13: 3D mouth 3 Medical hydr-fiber 44 (three) Center 15 gram- times 100 kcal/30 daily. mL LiPk senna 2018-03 Yes 2{tbl} Q.5D Take [address] (SENOKOT) 1-21 tablets by Luke [facility] 8.6 mg 22:13: mouth 2 Medical tablet 44 (two) Center times daily. traMADol 2018-03 Yes 50mg Take [address] (ULTRAM) 50 1-21 by mouth [facility] mg tablet 22:13: every 6 Medic al 44 (six) Center hours as needed for Pain. acetaminoph 2018-03 Yes 1000mg Take 1,[address] en 1-21 mg by [facility] (TYLENOL) 22:13: mouth Medical 500 MG 44 every 6 Center tablet (six) hours as needed for Pain. warfarin 2018-03 Yes 5mg QD Take [address] (COUMADIN) 1-21 by mouth [facility] 5 MG tablet 22:13: daily. Medi ellyn 44 Center zinc 2018-03 Yes 220mg QD Take [address] sulfate 1-21 mg by [facility] (ZINCATE) 22:13: mouth Medical 220 (50) mg 44 daily. [place] [facility] capsule cetirizine 2018-03 Yes 10mg QD Take [address] (ZYRTEC) 10 1-21 by mouth [facility] MG tablet 22:13: daily. Medica l 44 [place] [facility] lidocaine 3 2018-03 Yes administrat 1{appli Apply [address] [facility] [facility] % Crea 1-21 ion of cation} applicatio ke 22:13: local n Medical [address] amLODIPine 2018-03 Yes hypertensio 5mg QD Take [address] (NORVASC) 1-21 n by mouth [facility] 10 MG 22:13: daily. Medical tablet 44 Center hydroxyprop 2018-03 Yes dry eye 1[drp] Q.5D Place [address] yl 1-21 drop into [facility] methylcellu 22:13: both eyes M edical lose 44 2 (two) [place] [facility] (ISOPTO times TEARS) 2.5 daily % Artificial ophthalmic tears solution solution 0.4% (hypromell ose) . aspirin 325 2018-03 Yes acute 325mg QD Take [address] MG tablet 1-21 myocardial mg by Mike es 22:13: infarction mouth Medica l 44 daily. [place] [facility] calcium 2018-03 Yes 667mg Q.81963043 Take [address] acetate 1-21 [id number] mg by [facility] (PHOSLO) 22:13: 3D mouth 3 Medica l 667 mg 44 (three) Center capsule times daily. cloNIDine 2018-03 Yes hypertensio .2mg Q.92951965 Take 0.[address] HCl 1-21 n [id number] mg by [facility] (CATAPRES) 22:13: 3D mouth 3 Medi ellyn 0.2 MG 44 (three) Center tablet times daily. carvedilol 2018-03 Yes hypertensio 25mg Take [address] (COREG) 25 1-21 n by mouth 2 Mike es MG tablet 22:13: (two) Medical 44 times Center daily with breakfast and dinner. lactulose 2018-03 Yes constipatio 20g Take [address] (CHRONULAC) 1-21 n by mouth. Mike es 10 gram/15 22:13: Medical mL (15 mL) 44 Center solution lisinopril 2018-03 Yes 40mg QD Take [address] (PRINIVIL,Z 1-21 by mouth Luke [facility] ESTRIL) 40 22:13: daily. Medic al MG tablet 44 Center melatonin 3 2018-03 Yes 3mg Take [address] mg Tab 1-21 by mouth [facility] tablet 22:13: every Medical 44 night as Center needed. omeprazole 2018-03 Yes 20mg QD Take [address] (PRILOSEC 1-21 by mouth [facility] OTC) 20 MG 22:13: daily. Medic al tablet 44 Center polyethylen 2018-03 Yes 17g QD Take [address] e glycol 1-21 by mouth [facility] (GLYCOLAX) 22:13: daily. Medic al 17 44 Center gram/dose powder amino 2018- Yes 30mL Q.[id number] Take [address] acids-prote 1-21 [id number] mLs by [facility] in 22:13: 3D mouth 3 Medical hydr-fiber 44 (three) Center 15 gram- times 100 kcal/30 daily. mL LiPk senna 2018-03 Yes 2{tbl} Q.5D Take [address] (SENOKOT) 1-21 tablets by Luke s 8.6 mg 22:13: mouth 2 Medical tablet 44 (two) Center times daily. traMADol 2018-03 Yes 50mg Take [address] (ULTRAM) 50 1-21 by mouth [facility] mg tablet 22:13: every 6 Medic al 44 (six) Center hours as needed for Pain. acetaminoph 2018-03 Yes 1000mg Take 1,[address] en 1-21 mg by [facility] (TYLENOL) 22:13: mouth Medical 500 MG 44 every 6 Center tablet (six) hours as needed for Pain. warfarin 2018-03 Yes 5mg QD Take [address] (COUMADIN) 1-21 by mouth [facility] 5 MG tablet 22:13: daily. Medi ellyn 44 Center zinc 2018-03 Yes 220mg QD Take [address] sulfate 1-21 mg by [facility] (ZINCATE) 22:13: mouth Medical 220 (50) mg 44 daily. Center capsule cetirizine 2018-03 Yes 10mg QD Take [address] (ZYRTEC) 10 1-21 by mouth [facility] MG tablet 22:13: daily. Medica l 44 Center lidocaine 3 2018-03 Yes administrat 1{appli Apply [address] [facility] % Crea 1-21 ion of cation} applicatio Abbi ke 22:13: local n Medical [address] tramadol 50 tramadol 50 No 1 Q6H [...] Name Observation Time Observation Value Comments Source [facility] 2019-02-20 00:00:00 68 [facility] 2018-11-13 00:00:00 68 [in_i] [facility] 2018-10-25 00:00:00 68 [in_i] [facility] 2018-09-04 00[facility]00:00 68 [facility] Procedures This patient has no known procedures. Plan of Care Planned Activity Planned Date Details Comments Source Future Scheduled 2021-11-29 HEPATITIS B VACCINES Met [facility] Test 05:50:55 (1 of 3 - 3-dose series) [code = HEPATITIS B VACCINES (1 of 3 - 3-dose series)] Future Scheduled 2021-11-29 COVID-19 VACCINE (#1) [facility] Test 05:50:55 [code = COVID-19 VACCINE (#1)] Future Scheduled 2021-11-29 Pneumococcal Vaccine: [facility] Test 05:50:55 Pediatrics (0 to 5 Years) and At-Risk Patients (6 to 64 Years) (1 - PCV) [code = Pneumococcal Vaccine: Pediatrics (0 to 5 Years) and At-Risk Patients (6 to 64 Years) (1 - PCV)] Future Scheduled 2021-11-29 Hepatitis C screening [facility] Test 05:50:55 (procedure) [code = 570504638] Future Scheduled 2021-11-29 [facility] 05:50:55 [code = COLONOSCOPY SCREENING] Future Scheduled 2021-11-29 INFLUENZA VACCINE Method ist Hospital Test 05:50:55 [code = INFLUENZA VACCINE] Future Scheduled 2021-11-29 INFLUENZA VACCINE (#1) [facility] 00:00:00 [code = INFLUENZA Medical Ce nter VACCINE (#1)] Future Scheduled 2021-11-29 INFLUENZA VACCINE (#1) [facility] Test 00:00:00 [code = INFLUENZA Medical Ce nter VACCINE (#1)] Future Scheduled 2021-11-16 HEPATITIS B VACCINES Met [facility] Test 04:27:12 (1 of 3 - 3-dose series) [code = HEPATITIS B VACCINES (1 of 3 - 3-dose series)] Future Scheduled 2021-11-16 COVID-19 VACCINE (#1) [facility] Test 04:27:12 [code = COVID-19 VACCINE (#1)] Future Scheduled 2021-11-16 Pneumococcal Vaccine: [facility] Test 04:27:12 Pediatrics (0 to 5 Years) and At-Risk Patients (6 to 64 Years) (1 - PCV) [code = Pneumococcal Vaccine: Pediatrics (0 to 5 Years) and At-Risk Patients (6 to 64 Years) (1 - PCV)] Future Scheduled 2021-11-16 Hepatitis C screening [facility] Test 04:27:12 (procedure) [code = [id number]] Future Scheduled 2021-11-16 INFLUENZA VACCINE Method ist Hospital Test 04:27:12 [code = INFLUENZA VACCINE] Future Scheduled 2021-03-[address] [facility] Test 00:00:00 (12+) [code = Medical Center DEPRESSION SCREENING (12+)] Future Scheduled 2021-03-[address] [facility] Test 00:00:00 (12+) [code = Medical Center DEPRESSION SCREENING (12+)] Diagnostic Test 2019-02-21 17-hydroxyprogesterone Vt bety Medical Pending 00:00:00 , quantitative, serum Group [code = 17-hydroxyprogesterone , quantitative, serum] Future Scheduled 2017-07-[address] [facility] Test 00:00:00 0-64 YRS (2 - PCV) Medical C enter [code = PNEUMOCOCCAL VACCINE 0-64 YRS (2 - PCV)] Future Scheduled 2017-07-[address] [facility] Test 00:00:00 0-64 YRS (2 - PCV) Medical C enter [code = PNEUMOCOCCAL VACCINE 0-64 YRS (2 - PCV)] Future Scheduled [address] [facility] Test 00:00:00 (procedure) [code = Medical Center [id number]] Future Scheduled [address] [facility] Test 00:00:00 (procedure) [code = [facility] [id number]] Future Scheduled 1994 DTAP/TDAP/TD VACCINES [facility] Test 00:00:00 (1 - Tdap) [code = Medical C enter DTAP/TDAP/TD VACCINES (1 - Tdap)] Future Scheduled 1994 DTAP/TDAP/TD VACCINES [facility] Test 00:00:00 (1 - Tdap) [code = Medical C enter DTAP/TDAP/TD VACCINES (1 - Tdap)] Future Scheduled 1993 HEPATITIS C [facility]CRE[facility]ING [facility] Test 00:00:00 [code = HEPATITIS C Medical Center SCREENING] Future Scheduled 1993 HEPATITIS C [facility] 00:00:00 [code = HEPATITIS C Medical Center SCREENING] Future Scheduled 1980-02-05 COVID-19 VACCINE (#1) [facility] 00:[facility]:00 [code = COVID-[address] VACCINE (#1)] Future Scheduled 1975 COVID-19 VACCINE (#1[facility] Test 00:00:00 [code = COVID-[address] VACCINE (#1)] Future Scheduled [address] [facility] Test 00:00:00 (combo) [code = CT Medical C enter Colonography (combo)] Future Scheduled [address] [facility] Test 00:00:00 malignant neoplasm of Medica l Center colon (procedure) [code = 242783514] Future Scheduled [address] [facility] Test 00:00:00 malignant neoplasm of Medica l Center colon (procedure) [code = 291785982] Future Scheduled [address] [facility] [facility] Test 00:00:00 malignant neoplasm of Medica l Center colon (procedure) [code = 682018300] Future Scheduled [address] [facility] Test 00:00:00 malignant neoplasm of Medica l Center colon (procedure) [code = 474980869] Future Scheduled 1975 Sigmoidoscopy [code = [facility] S[facility]oscopy] Medical Cente r Future Scheduled [address] [facility] Test 00:00:00 (combo) [code = CT Medical C enter Colonography (combo)] Future Scheduled [address] [facility] [facility] Test 00:00:00 malignant neoplasm of Medica l Center colon (procedure) [code = 071715038] Future Scheduled [address] [facility] [facility] Test 00:00:00 malignant neoplasm of Medica l Center colon (procedure) [code = 909988710] Future Scheduled [address] [facility] Test 00:00:00 malignant neoplasm of Medica l Center colon (procedure) [code = 515180148] Future Scheduled [address] [facility] Test 00:00:00 malignant neoplasm of Medica l Center colon (procedure) [code = 089333039] Future Scheduled 1975 Sigmoidoscopy [facility]code [facility] End Encounter Admission Attending Care Care Encounter Source Date/Time Date/Time Type Type Clinicians Facility Department ID 2021-11-19 Outpatient [facility] [address] [id number] [place] 10:07:20 [id number] [facility] 2021-10-16 Outpatient CELINA, [facility] [facility] [id number] CT 14:38:07 ENRIQUE [id number] [facility] 2021-09-25 Outpatient CELINA, [facility] [id number] CT 09:31:27 ENRIQUE [id number] [facility] 2021-09-17 Outpatient CELINA, [facility] [id number] CT 10:08:53 ENRIQUE [id number] [facility] 2021-09-04 Outpatient CELINA, [facility] [id number] CT 12:19:20 ENRIQUE [id number] [facility] 2015-12-08 Inpatient C [facility] [id number] [facility]. 18:48:00 [facility] 2021-11-20 2021-11-20 Outpatient GC_[facility]_Tod PRIV PRIV 205 [id number] [facility] 00:00:00 00:00:00 d_J [id number] Medica l 2021-11-16 2021-11-16 Outpatient GC_BAHC_Tod PRIV PRIV 205 [id number] [facility] 00:00:00 00:00:00 d_J [id number] Medica l 2021-11-08 2021-11-08 Outpatient GC_BAHC_Tod PRIV PRIV 205 [id number] [facility] 00:00:00 00:00:00 d_J [id number] Medica l 2021-11-08 2021-11-08 Outpatient Fabio, PRIV PRIV [id number] 00:00:00 00:00:00 Robert Mojica [id number] 2021-11-02 2021-11-02 Outpatient GC_BAHC_Tod PRIV PRIV 205 [id number] [facility] 00:00:00 00:00:00 d_J [id number] Medica l 2021-11-02 2021-11-02 Outpatient Vito, PRIV PRIV [id number] e-1 00:00:00 00:00:00 Mara ce7-11ed-b [id number] 2021-10-28 2021-10-28 Outpatient GC_BAHC_Tod PRIV PRIV 205 [id number] [facility] 00:00:00 00:00:00 d_J [id number] Medica l 2021-10-20 2021-10-20 Outpatient GC_BAHC_Tod PRIV PRIV 205 [id number] [facility] 10:42:00 10:42:00 d_J [id number] Medica l 2021-10-19 2021-10-19 Outpatient GC_BAHC_Tod PRIV PRIV 205 [id number] [facility] 07:48:00 07:48:00 d_J [id number] Medica l 2021-10-19 2021-10-19 Outpatient Vito, PRIV PRIV [id number] e-1 00:00:00 00:00:00 Mara 12e-11ed-a [id number] 2021-10-12 2021-10-12 Outpatient GC_BAHC_Tod PRIV PRIV 205 [id number] [facility] 03:53:00 03:53:00 d_J [id number] Medica l 2021-10-12 2021-10-12 Outpatient Vito, PRIV PRIV [id number] [id number] 00:00:00 00:00:00 Mara af6-11ed-9 [id number] 2021-10-09 2021-10-09 [facility] 11[facility]56[facility]00 HANA 0712 da [facility] 2021-10-05 2021-10-05 Outpatient GC_BAHC_Tod PRIV PRIV 205 [id number] [facility] 11:01:00 11:01:00 d_J [id number] Medica l 2021-10-04 2021-10-04 Outpatient GC_BAHC_Tod PRIV PRIV 205 [id number] [facility] 09:10:00 09:10:00 d_J [id number] Medica l 2021-10-03 2021-10-03 Outpatient GC_BAHC_Tod PRIV PRIV 205 [id number] [facility] 02:45:00 02:45:00 d_J [id number] Medica l 2021-10-02 2021-10-02 Outpatient GC_BAHC_Tod PRIV PRIV 205 [id number] [facility] 05:08:00 05:08:00 d_J [id number] Medica l 2021-10-02 2021-10-02 Outpatient Vito, PRIV PRIV [id number] c-f 00:00:00 00:00:00 Mara o20-46ou-a [id number] 2021-09-26 2021-09-26 Outpatient GC_[facility]_Tod PRIV PRIV 205 [id number] [facility] 09:13:00 09:13:00 d_J [id number] Medica l 2021-09-26 2021-09-26 Outpatient Vito, PRIV PRIV [id number] 2-f 00:00:00 00:00:00 Mara dec-11ec-8 [id number] 2021-09-25 2021-09-25 Office ADRI Thompson [facility] [id number] [place] 11:15:00 12:43:[address] [facility] [id number] jake RAMSEY 1 [id number] 2021-09-21 2021-09-21 Outpatient GC_BAHC_Tod PRIV PRIV 205 [id number] [facility] 04:44:00 04:44:00 d_J [id number] Medica l 2021-09-17 2021-09-17 Outpatient GC_BAHC_Tod PRIV PRIV 205 [id number] [facility] 11:11:00 11:11:00 d_J [id number] Medica l 2021-09-13 2021-09-13 Outpatient GC_BAHC_Tod PRIV PRIV 205 [id number] [facility] 10:39:00 10:39:00 d_J [id number] Medica l 2021-09-13 2021-09-13 Outpatient Fabio, PRIV PRIV [id number] c76-f 00:00:00 00:00:00 Robert Mojica 3ee-11ec-8 [id number] 2021-09-10 2021-09-10 Outpatient GC_BAHC_Tod PRIV PRIV 205 [id number] [facility] 03:35:00 03:35:00 d_J [id number] Medica l 2021-09-04 2021-09-04 Outpatient GC_BAHC_Tod PRIV PRIV 205 [id number] [facility] 07:32:00 07:32:00 d_J [id number] Medica l 2021-09-04 2021-09-04 Outpatient Vito, PRIV PRIV [id number] 2-e 00:00:00 00:00:00 Mara [id number]-[id number] 2021-08-31 2021-08-31 Outpatient GC_BAHC_Tod PRIV PRIV 205 [id number] [facility] 02:07:00 02:07:00 d_J [id number] Medica l 2021-08-23 2021-08-23 Outpatient GC_BAHC_Tod PRIV PRIV 205 [id number] [facility] 11:05:00 11:05:00 d_J [id number] Medica l 2021-08-22 2021-08-22 Outpatient GC_BAHC_Tod PRIV PRIV 205 [id number] [facility] 07:00:00 07:00:00 d_J [id number] Medica l 2021-08-22 2021-08-22 Outpatient Vito PRIV PRIV [id number] 8-[id number] 00:00:00 00:00:00 Mara [id number] 2021-08-19 2021-08-19 Outpatient GC_BAHC_Tod PRIV PRIV 205 [id number] [facility] 10:45:00 10:45:00 d_J [id number] Medica l 2021-08-14 2021-08-14 Outpatient GC_BAHC_Tod PRIV PRIV 205 [id number] [facility] 03:16:00 03:16:00 d_J [id number] Medica l 2021-08-14 2021-08-14 Outpatient Vito, PRIV PRIV [id number] 4-d 00:00:00 00:00:00 Mara 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-8 [id number] 2021-08-10 2021-08-10 Outpatient GC_BAHC_Tod PRIV PRIV 205 [id number] [facility] 01:10:00 01:10:00 d_J [id number] Medica l 2021-08-10 2021-08-10 Outpatient Vito, PRIV PRIV [id number] e-d 00:00:00 00:00:00 Mara e8c-53eu-i [id number] 2021-08-08 2021-08-08 Outpatient GC_BAHC_Tod PRIV PRIV 205 [id number] [facility] 10:53:00 10:53:00 d_J [id number] Medica l 2021-08-04 2021-08-04 Outpatient GC_BAHC_Tod PRIV PRIV 205 [id number] [facility] 10:45:00 10:45:00 d_J [id number] Medica l 2021-07-31 2021-07-31 Outpatient GC_BAHC_Tod PRIV PRIV 205 [id number] [facility] 07:56:00 07:56:00 d_J [id number] Medica l 2021-07-31 2021-07-31 Outpatient Vito, PRIV PRIV [id number] 4-d 00:00:00 00:00:00 Mara 159-11ec-9 [id number] 2021-07-27 2021-07-27 Outpatient GC_BAHC_Tod PRIV PRIV 205 [id number] [facility] 08:30:00 08:30:00 d_J [id number] Medica l 2021-07-27 2021-07-27 Outpatient Vito, PRIV PRIV [id number] 0-[id number] 00:00:00 00:00:00 Mara g42-94za-l [id number] 2021-07-19 2021-07-19 Outpatient GC_BAHC_Tod PRIV PRIV 205 [id number] [facility] 08:26:00 08:26:00 d_J [id number] Medica l 2021-07-19 2021-07-19 Outpatient Fabio, PRIV PRIV [id number] 00:00:00 00:00:00 Robert Mojica 7bc-11ec-a [id number] 2021-07-19 2021-07-19 Outpatient Fabio, PRIV PRIV [id number] 00:00:00 00:00:00 Robert Mojica 1fa-11ed-a [id number] 2021-07-13 2021-07-13 Outpatient GC_BAHC_Tod PRIV PRIV 205 [id number] [facility] 02:12:00 02:12:00 d_J [id number] Medica l 2021-07-12 2021-07-12 Outpatient GC_BAHC_Tod PRIV PRIV 205 [id number] [facility] 05:07:00 05:07:00 dAddis [id number] Medica l 2021-07-12 2021-07-12 Outpatient Zavalla, PRIV PRIV [id number] c-b 00:00:00 00:00:00 June v6x-74fg-f [id number] 2021-07-12 2021-07-12 Outpatient Zavalla, PRIV PRIV [id number] a-f 00:00:00 00:00:00 June ed0-11ec-8 [id number] 2021-07-11 2021-07-11 Outpatient GC_BAHC_Tod PRIV PRIV 205 [id number] [facility] 10:53:00 10:53:00 d_Gume [id number] Medica l 2021-07-06 2021-07-06 Outpatient GC_BAHC_Spa PRIV PRIV 205 [id number] [facility] 05:28:00 05:28:00 Portillo [id number] Medica l 2019-02-20 2019-02-20 [place] - [id number] [place] 00:00:00 00:00:00 Christo Collins Medical MD: [address] [address], [place] [address] , Ph. 2018-11-13 2018-11-13 [place] - [id number] [place] 00:00:00 00:00:00 Christo Collins MD: [address] [facility], [address] [address], [place] [address] , Ph. 2018-10-25 2018-10-25 K[place] - [id number] [place] 00:00:00 00:00:00 Christo Collins MD: [address] [facility], [address], [place] [address] , Ph. 2018-09-04 2018-09-04 [facility] [place] [facility] [id number] [facility] Christo Collins MD: [address] [facility], [address], [place] [address] , Ph. 2017-09-07 2017-09-08 Inpatient Christiano GAYLE [facility] TELE [id number] [facility] 15:44:00 18:20:00 [facility] 2017-09-01 2017-09-04 Inpatient KHADAR PURI [facility] TELE [id number] [facility] 20:55:00 18:24:00 Medica l Center Results Test Description Test Time Test Comments Results Result Comments Source HEPATITIS B SURFACE ANTIGEN 2019-02-18 18:21:00 Test Item Value Reference Range Interpretation Comme nts HEPATITIS B SURFACE ANTIGEN (2) (BEAKER) (test code = Nonreactive Nonreactive 2585) ANG, THROMBECTOMY, A-V [id number] 13:26:00Reason for exam:- >nonfunctioning fistulaAnesthesia:->moderateFINAL REPORT DIALYSIS [...] MDReport Verified Date/Time: 02/18/2019 13:26:57 Reading Location: [facility] Radiology Reading Room [id number] 05:52:00 Test Item Value Reference Range Interpretation Comments MAGNESIUM (BEAKER) (test code = 2.0 mg/dL 1.5-3.0 627) BASIC METABOLIC [id number] 05:51:00 Test Item Value Reference Range Interpretation [...] PATIEN TS. CBC W/PLT COUNT & AUTO [id number] 05:37:00 Test Item Value Reference Range Interpretation [...] = 2801) RAD, CHEST, 1 VIEW, NON [id number] 09:21:00Reason for exam:- >pneumoniaShould this be performed at the bedside?->YesFINAL REPORT TECHNIQUE: Frontal view of the chest. INDICATION: pneumonia COMPARISON:Prior day. IMPRESSION:Lines and hardware: Stable.Heart and mediastinum: Stable.Lungs and pleura:Probable scattered atelectasis. No focal airspace consolidation. Central coronary venous congestion.No pleural effusion. No pneumothorax.Soft tissues and bones: No acute abnormality. Signed: Rupinder Perez MDReport Verified Date/Time: 02/17/2019 09:21:38 Reading Location: [facility] Radiology Reading Room COMPREHENSIVE METABOLIC [id number] 06:48:00 Test Item Value Reference Range Interpretation [...] S NOT APPLICABLE FOR DIALYSIS PATIEN TS. [id number] 06:30:00 Test Item Value Reference Range Interpretation Comments MAGNESIUM (BEAKER) (test code = 2.0 mg/dL 1.5-3.0 627) TROPONIN [id number] 06:27:00 Test Item Value Reference Range Interpretation [...] = 2801) RAD, CHEST, 1 VIEW, NON [id number] 00:02:00Reason for exam:- >PNEUMONIAShould this be performed [...] suggestive of mild volume overload. Signed: Kristian Garciaepssm rehab Verified Date/Time: 02/17/2019 00:02:21 Reading Location: [address] Consult Reading Room TROPONIN [id number] 19:17:00 Test Item Value Reference Range Interpretation [...] acute neurological disease, and persistent tachyarrhythmia.COMPREHENSIVE METABOLIC [id number] 19:13:00 Test Item Value Reference Range Interpretation [...] S NOT APPLICABLE FOR DIALYSIS PATIEN TS. [id number] 19:10:00 Test Item Value Reference Range Interpretation Comments MAGNESIUM (BEAKER) 2.1 mg/dL 1.5-3.0 Specimen moderately (test code = 627) hemolyzed CBC W/PLT COUNT & AUTO [id number] 18:47:00 Test Item Value Reference Range Interpretation [...] PERCENT (BEAKER) (test code = 2801) BLOOD [id number] 07:18:00 Test Item Value Reference Range Interpretation Comments Culture Observations (test NO GROWTH AFTER 5 code = COB1) DAYS BLOOD [id number] 07:18:00 Test Item Value Reference Range Interpretation Comments Culture Observations (test NO GROWTH AFTER 5 code = COB1) DAYS HEPATITIS B CORE ANTIBODY,[id number] 12:26:00 Test Item Value Reference Range Interpretation Comments HEPATITIS B CORE AB NON-REACTIVE NON-REACTIVE TEST PER FORMED TOTAL (test code = AT:[facility] [id number]) [id number] [place] [address]DQZGNKAI SANTIAGO M.D. XR CHEST 1 [id number] 08:09:24 Location of dictation: N9Kzizyjqs chest one view.HISTORY: J81.1: CHRONIC PULMONARY EDEMACOMMENT: Compared to one day prior. The heart is enlarged but stable, globularappearance suggests pericardial eff usion. Small effusions are now presentslightly greater on the left. No new consolidation, pneumothorax seen.Impression:1. Stable cardiomegaly with concern for pericardial effusion.2. Interval development of small effusions slightly greater on the left.BASIC METABOLIC [id number] 07:14:00 Test Item Value Reference Range Interpretation [...] code = RBCMOR) NORMAL XR CHEST 1 [id number] 07:33:56STUDY: Chest radiographHISTORY: Fever.COMPARISON: 09/05/17TECHNIQUE: Frontal view of the chest.LOCATION: J14EOUHSBTN:The cardiac silhouette is enlarged, stable. Bilateral patchy perihilaropacities are similar in appearance. There is no definitive pleural effusion ordiscernible pneumothorax. No acute osseous abnormalities are identified.IMPRESSION:Stable appearance of bilateral perihilar patchy opacities and cardiomegaly.BASIC METABOLIC [id number] 04:50:00 Test Item Value Reference Range Interpretation [...] (test code = 09D) 8.6 mg/dL 8.3-9.5 [id number] 04:43:00 Test Item Value Reference Range Interpretation [...] MORPH (test code = RBCMOR) NORMAL CARDIAC [id number] 03:24:00 Test Item Value Reference Range Interpretation Comments TROPONIN I (test code = A84) 0.269 ng/mL 0.000-0.045 H CKMB (test code = A49) 7.8 ng/mL <=3.6 HH CPK (test code = 32A) 414 IU/L 39-308 H BASIC METABOLIC [id number] 03:08:00 Test Item Value Reference Range Interpretation [...] code = RBCMOR) NORMAL HEPATITIS B SURFACE [id number] 21:09:00 Test Item Value Reference Range Interpretation Comments HBSAB (test code = HBSAB) REACTIVE REACTIVE HEPATITIS B SURFACE [id number] 20:37:00 Test Item Value Reference Range Interpretation Comments HBSAG (test code = HBSAG) NON-REACTIVE NON-REACTIVE CARDIAC [id number] 20:23:00 Test Item Value Reference Range Interpretation Comments TROPONIN I (test code = A84) 0.231 ng/mL 0.000-0.045 H CKMB (test code = A49) 11.0 ng/mL <=3.6 HH CPK (test code = 32A) 469 IU/L 39-308 H PRO TIME AND [id number] 11:37:00 Test Item Value Reference Range Interpretation [...] = RBCMOR) NORMAL XR CHEST 1 VIEW [id number] 10:04:30EXAMINATION: XR CHEST 1 VIEW PORTABLE.LOCATION: D4.HISTORY: [...] tiny effusions, unchangedsince 09/01/2017,probably reflect vascular congestion.OCCULT [id number] 11:04:00 Test Item Value Reference Range Interpretation [...] 31A) 27 IU/L <=78 CBC (INCLUDES AUTOMATED DIFFERENTIAL)*[id number] 09:07:00 Test Item Value Reference Range Interpretation [...] NON-REACTIVE TEST PERFOR MED ANTIBODY (IGM) (test AT:[facility] code = [id number]) [id number] [place] [address]BPSGKKAI SANTIAGO M.D. HEPATITIS B SURFACE ANTIBODY 2017-09-02 15:30:00 Test Item Value Reference Range Interpretation Comments HBSAB (test code = HBSAB) REACTIVE REACTIVE XR CHEST 2 VIEW *WW*2017-09-01 23:21:54XR CHEST 2 VIEW Location:[address] services provided 09/01/2017 11:21 PMIndication:[id number]: Hypertensive disorderComparison:Not currently availableFindings:The heart is enlarged with mild engorgement of the pulmonaryvascularity and prominence of the pulmonary interstitium. Bilateral pleuralfluid collections are noted. No chicho lobar consolidation is seen. No acutebony abnormality.Impression:Findings concerning for cardiogenic pulmonary edema with bilateralpleural fluid collections. HEPATITIS B CORE ANTIBODY,[id number] 12:54:00 Test Item Value Reference Range Interpretation Comments HEPATITIS B CORE AB NON-REACTIVE NON-REACTIVE TEST PER FORMED TOTAL (test code = AT:[facility] [id number]) [id number] [place] [address]OALWKKAI SANTIAGO M.D. GLUCOMETER GLUCOSE- LAB USE [id number] 06:26:00 Test Item Value Reference Range Interpretation Comments GLUCOMETER (test code = 102 mg/dL 70-100 H Mete r ID: GMG) [id number] tor: 5331 JOSÉ ASHOFU NM LUNG (V/Q ) SCAN W [id number] 15:28:50Radionuclide ventilation/perfusion lung scanLocation Code: G1AROCGSF: Shortness of breathCOMPARISON:None.COMMENT: Routine images of the lungs were obtained after inhalation of 11.1 mCiof Xe133 gas andintravenous injection of 6.0 mCi 99 M technetium MAA.Ventilation is symmetric bilaterally with no focal defect. There is nosignificant trapping.Perfusion images demonstrate normal and symmetric perfusion with no segmentaldefect to suggest a PE.IMPRESSION: Normal VQ scan with a low probability of PE.BASIC METABOLIC [id number] 07:39:00 Test Item Value Reference Range Interpretation [...] code = RBCMOR) NORMAL HEPATITIS B SURFACE [id number] 18:54:00 Test Item Value Reference Range Interpretation Comments HBSAB (test code = HBSAB) REACTIVE REACTIVE HEPATITIS B SURFACE [id number] 18:37:00 Test Item Value Reference Range Interpretation Comments HBSAG (test code = HBSAG) NON-REACTIVE NON-REACTIVE CARDIAC [id number] 18:35:00 Test Item Value Reference Range Interpretation Comments TROPONIN I (test code = A84) 0.115 ng/mL 0.000-0.045 H CKMB (test code = A49) 7.0 ng/mL <=3.6 HH CPK (test code = 32A) 652 IU/L 39-308 H CARDIAC [id number] 14:04:00 Test Item Value Reference Range Interpretation Comments TROPONIN I (test code = A84) 0.120 ng/mL 0.000-0.045 H CKMB (test code = A49) 7.4 ng/mL <=3.6 HH CPK (test code = 32A) 651 IU/L 39-308 H GLUCOMETER GLUCOSE- LAB USE [id number] 11:12:00 Test Item Value Reference Range Interpretation Comments GLUCOMETER (test code = 99 mg/dL 70-100 LIGIA BRUNA METERMeter ID: GMG) [id number] tor: 4842 MARLENE CUNNINGHAMO GLUCOMETER GLUCOSE- LAB USE [id number] 04:22:00 Test Item Value Reference Range Interpretation Comments GLUCOMETER (test code = 116 mg/dL 70-100 H Mete r ID: GMG) [id number] tor: 4316 CORKY HOLMAN GLUCOMETER GLUCOSE- LAB USE [id number] 03:33:00 Test Item Value Reference Range Interpretation Comments GLUCOMETER (test code = 42 mg/dL 70-100 LL Mete r ID: GMG) [id number] tor: 4316 CORKY MAHONEY BRAIN NATRIURETIC [id number] 02:13:00 Test Item Value Reference Range Interpretation Comments proBNP (test code = PBNP) >711128 pg/mL 0-125 H XR ABDOMEN 2 VIEWS W/PA [id number] 02:11:50-CHEST AP VIEW-ABDOMEN AP AND UPRIGHT VIEWS LOCATION: [id number] INDICATION: Vomiting and shortnessof breathCOMPARISON: None FINDINGS: [...] obstruction, CT is recommended for further assessment.CARDIAC [id number] 01:33:00 Test Item Value Reference Range Interpretation Comments TROPONIN I (test code = A84) 0.147 ng/mL 0.000-0.045 H CKMB (test code = A49) 7.0 ng/mL <=3.6 HH CPK (test code = 32A) 688 IU/L 39-308 H COMPREHENSIVE METABOLIC [id number] 01:32:00 Test Item Value Reference Range Interpretation [...] 31A) 121 IU/L <=78 H AMYLASE AND [id number] 01:31:00 Test Item Value Reference Range Interpretation Comments AMYLASE (test code = 10A) 157 U/L 28-100 H LIPASE (test code = 60A) 224 IU/L 73-393 [id number] 01:26:00 Test Item Value Reference Range Interpretation Comments D-DIMER (test code = 687 ng/mL D-DU 0-234 H DDI) D-DIMER COMMENT (test *Level to rule out code = DDCOM) DVT or PE: <235 ng/mL D-DU* PRO TIME AND [id number] 01:26:00 Test Item Value Reference Range Interpretation [...]
--- NOTE | 2021-11-29 08:13 | EDPHYS ---
Physician Documentation [facility] Name: Velasquez Cruz Age: 46 yrs Sex: Male : 1975 Arrival Date: 11/29/2021 Time: 06:34 Bed 17 Private MD: ED Physician Kiet Funez HPI: 11/29 06:48 This 46 yrs old Black Male presents to ER via EMS with complaints of ear injury. rn 06:48 The patient presents with an injury. The complaints affect the left ear. Onset: The rn symptoms/episode began/occurred just prior to arrival. Modifying factors: The symptoms are alleviated by nothing, the symptoms are aggravated by nothing. Severity of symptoms: At their worst the symptoms were mild in the emergency department the symptoms are unchanged. The patient has experienced a previous episode. The patient has been recently seen by a physician:. Pt reports recent injury to left ear, received sutures, this AM hit head on furniture, no LOC, but felt "warm liquid" come down ear, found blood, called 911. . Historical: - Allergies: 06:46 No Known Allergies; ja4 - Immunization history:: Adult Immunizations up to date. - Family history:: not pertinent. - Hospitalizations: : No recent hospitalization is reported. ROS: 06:48 Constitutional: Negative for fever, chills, and weight loss, ENT: + injury to left ear rn Exam: 06:48 Constitutional: This is a well developed, well nourished patient who is awake, alert, rn and in no acute distress. Head/Face: Normocephalic ENT: Left ear with semi-healed sutured wound, at central portion of wound, pinpoint area of new bleeding, venous, slow, easily controlled with proximal pressure application. Vital Signs: 06:43 BP 152 / 82; Pulse 86; Resp 16; Temp 98.1; Pulse Ox 98% on R/A; Weight 79.83 kg; Height ja4 5 ft. 8 in. (172.72 cm); Pain 8/10; 06:49 BP 152 / 82; Pulse 86; Resp 16; Temp 98.1; Pulse Ox 98% on R/A; Weight 66.68 kg; Height ja4 5 ft. 8 in. (172.72 cm); Pain 8/10; 06:49 Body Mass Index 22.35 (66.68 kg, 172.72 cm) ja4 Jason Coma Score: 06:50 Eye Response: spontaneous(4). Verbal Response: oriented(5). Motor Response: obeys ja4 commands(6). Total: 15. MDM: 06:40 Patient medically screened. rn 08:12 Data reviewed: vital signs, nurses notes, and as a result, I will discharge patient. ms3 Counseling: I had a detailed discussion with the patient and/or guardian regarding: the historical points, exam findings, and any diagnostic results supporting the discharge/admit diagnosis, the need for outpatient follow up, to return to the emergency department if symptoms worsen or persist or if there are any questions or concerns that arise at home. Special discussion: I discussed with the patient/guardian in detail that at this point there is no indication for admission to the hospital. It is understood, however, that if the symptoms persist or worsen the patient needs to return immediately for re-evaluation. ED course: Patient's left ear laceration remains hemodynamically stable with dressings in place. Patient states he has instructions for follow-up. Patient instructed to follow-up with Dr. Desai in 2 days for reassessment. Patient understands agrees with plan. All questions were answered. Return precautions discussed include worsening symptoms, or any other concerns.. Administered Medications: No medications were administered Disposition Summary: 11/29/21 08:12 Discharge Ordered Location: Home ms3 Condition: Stable ms3 Diagnosis - Laceration without foreign body of left ear ms3 - Essential (primary) hypertension ms3 - End stage renal disease ms3 Followup: ms3 - With: Heather Desai MD - When: 2 - 3 days - Reason: Recheck today's complaints Discharge Instructions: - Discharge Summary Sheet ms3 - Facial Laceration, Xjoa-oh-Hygt ms3 Forms: - Medication Reconciliation Form ms3 - Thank You Letter ms3 - Antibiotic Education ms3 - Prescription Opioid Use ms3 Signatures: Greg Killian MD MD rn Sims, Marcus, DO DO ms3 Dakota Neal RN RN [email or web address] Corrections: (The following items were deleted from the chart) 06:47 06:46 PMHx: M W F dialysis; 4 06:47 06:46 PMHx: CHF; ja4 ja4 06:47 06:46 PMHx: Anemia; ja4 ja4 :47 06:46 PMHx: Hypertension; ja4 ja4 06:47 06:46 PSHx: left arm dialysis access; ja4 ja4
--- NOTE | 2021-11-29 08:13 | ER ---
Nurse's Notes [facility] Name: Velasquez Cruz Age: 46 yrs Sex: Male : 1975 Arrival Date: 11/29/2021 Time: 06:34 Bed 17 Private MD: Diagnosis: Laceration without foreign body of left ear;Essential (primary) hypertension;End stage renal disease Presentation: 11/29 06:43 Chief complaint: Patient states: left ear bleeding. Coronavirus screen: At this time, ja4 the client does not indicate any symptoms associated with coronavirus-19. Initial Sepsis Screen: Does the patient meet any 2 criteria? No. Patient's initial sepsis screen is negative. Risk Assessment: Do you want to hurt yourself or someone else? Patient reports no desire to harm self or others. Onset of symptoms was November 29, 2021. 06:43 Method Of Arrival: EMS ja4 06:43 Acuity: HEAVEN 4 ja4 06:43 Acuity: HEAVEN 3 ja4 Triage Assessment: 06:46 General: Appears in no apparent distress. uncomfortable, obese, Behavior is calm, ja4 cooperative, appropriate for age. Pain: Complains of pain in left ear Pain currently is 8 out of 10 on a pain scale. EENT: Pinna bleeding lac. Neuro: No deficits noted. Cardiovascular: No deficits noted. Derm: Wound noted left ear. 06:46 Injury Description: Laceration is bleeding profusely, is bleeding profusely at this ja4 time. A dressing was applied. Historical: - Allergies: 06:46 No Known Allergies; ja4 - Immunization history:: Adult Immunizations up to date. - Family history:: not pertinent. - Hospitalizations: : No recent hospitalization is reported. Screenin:50 Abuse screen: Denies threats or abuse. Nutritional screening: No deficits noted. ja4 Tuberculosis screening: No symptoms or risk factors identified. Fall Risk None identified. Assessment: 06:50 Reassessment: see triage note. ja4 Vital Signs: 06:43 BP 152 / 82; Pulse 86; Resp 16; Temp 98.1; Pulse Ox 98% on R/A; Weight 79.83 kg; Height ja4 5 ft. 8 in. (172.72 cm); Pain 8/10; 06:49 BP 152 / 82; Pulse 86; Resp 16; Temp 98.1; Pulse Ox 98% on R/A; Weight 66.68 kg; Height ja4 5 ft. 8 in. (172.72 cm); Pain 8/10; 06:49 Body Mass Index 22.35 (66.68 kg, 172.72 cm) ja4 Jason Coma Score: 06:50 Eye Response: spontaneous(4). Verbal Response: oriented(5). Motor Response: obeys ja4 commands(6). Total: 15. ED Course: 06:34 Patient arrived in ED. mw2 06:40 Greg Killian MD is Attending Physician. rn 06:46 Triage completed. ja4 06:49 Arm band placed on left wrist. ja4 06:50 Bed in low position. Call light in reach. Side rails up X 1. Side rails up X2. ja4 06:50 wound dressing. ja4 06:52 Dressings: 4X4s X 1; left ear Surgicel applied. ke1 08:05 Attending Physician role handed off by Greg Killian MD ms3 08:05 Kiet Funez DO is Attending Physician. ms3 08:11 Heather Desai MD is Referral Physician. ms3 09:00 Mara Banegas, OLIVIA is Primary Nurse. 6 Administered Medications: No medications were administered Medication: 06:50 VIS not applicable for this client. ja4 Outcome: 08:12 Discharge ordered by . ms3 09:00 Patient left the ED. [facility] Signatures: Greg Killian MD MD rn [place], MyKena 2 Kiet Funez DO DO az3 Mara Banegas RN RN 6 Chriss Meyer RN RN [facility] Dakota Neal RN RN 4 Corrections: (The following items were deleted from the chart) 06:47 06:46 PMHx: M W F dialysis; 4 47 06:46 PMHx: CHF; 06:46 PMHx: Anemia; 06:46 PMHx: Hypertension; 4 :47 06:46 PSHx: left arm dialysis access; ja4 4
[2021-11-29 09:09] VITALS: BP 152/82; TEMP 98.1; O2SAT 98
== END 2021-11-29 09:00 | disposition home or self-care (01) ==
LOC: ER 06:33
DX: S01.312A Laceration without foreign body of left ear, initial encounter (principal); I12.0 Hypertensive chronic kidney disease with stage 5 chronic kidney disease or end stage renal disease; N18.6 End stage renal disease
CPT/HCPCS: 99283

== ENCOUNTER 2021-12-02 23:50 | Emergency (ER) | payer OTHER ==
--- OUTSIDE RECORDS SUMMARY | 2021-12-02 23:56 | XMS REPORT | Continuity of Care Document ---
:1975 Author Organization [facility] t Address [address] [place] [address] Care Team Providers Name Role Phone UNKNOWN, REFFERING Primary Care Physician Unavailable ENRIQUE PATRICK Attending Clinician Unavailable GC_BAHC_Todd_J Attending Clinician Unavailable Mara Padron Attending Clinician [phone] Robert Mccarthy Attending Clinician [phone] BOB Attending Clinician Unavailable June Attending Clinician [phone] GC_BAHC_Spangler_G Attending Clinician Unavailable KHADAR CALHOUN Attending Clinician Unavailable DR KACEY GAYLE Attending Clinician Unavailable DR KHADAR CALHOUN Attending Clinician Unavailable DR ELAINE MCWILLIAMS Attending Clinician Unavailable GC_BAHC_Todd_J Admitting Clinician Unavailable BOB Admitting Clinician Unavailable SHAQ_BAHC_Spangler_G Admitting Clinician Unavailable KHADAR CALHOUN Admitting Clinician Unavailable DR KACEY GALYE Admitting Clinician Unavailable DR KHADAR CALHOUN Admitting Clinician Unavailable DR ELAINE MCWILLIAMS Admitting Clinician Unavailable Payers Payer Name Policy Type Policy Number Effective Date Expiration Date Karen allen [employer] [id number] 2021 MEDICARE ADVANTAGE 00:00:00 [id number] 2019 2021 [facility] 00[facility]00:00 00:00:00 [facility] [place] - [id number] 2021 2021 [facility]00 [facility] (MEDICAID O) Problems Condition Condition Condition [...] Source Natural father Unremarkable [facility] Natural sister Unremarkable [facility] Social History Social Habit Start Date Stop Date Quantity Comments Source History of Cigarette [facility] use Tobacco use and 2021-09-25 2021-09-25 Smokeless tobacco [facility] exposure 00:00:00 00:00:00 non-user Alcohol intake 2019-02-24 2019-02-24 [facility]drinker [facility]finding[facility] [birth year] [facility] Smoking Status Start Date [...] Yes calcium [place] acetate 09-25 acetate( Health ([facility]) 16:44: osphate 667 MG 48 binders) capsule [...] 1{capsu 1 capsule. [facility] rol 09-25 le} [facility] (Vitamin 16:44: D-2) 1.25 48 MG (80411 UT) capsule ferrous 0 Yes Q12H every [...] Yes [facility] packet 0-11 Health 00:00: 00 aspirin 325 2018-03 Yes 325mg QD Take [...] OPHT) day. 0.4% calcium 2018-03 Yes 2001mg Q.88432845 Take 2,001 [facility] acetate 1-[id number] (PHOSLO) 15:53: 3D mouth 3 Hospit a 667 mg 19 (three) l capsule times a day with meals. Give 15 minutes before meals clonIDINE 2018-03 Yes .2mg Q.97117188 Take 0.2 [facility] HCl 1-[address] (CATAPRES) 15:53: 3D mouth [...] needed for pain LIDOCAINE 2018-03 Yes 1{appli Q.70813144 Apply 1 [facility] HCL TOP 1-30 cation} [id number] applicatio [facility] 15:53: 3W n Hospita 19 [...] 19 l packet amino 2018-03 Yes 30mL Q.06762455 Take 30 mL [facility] acids/prote 1-30 8528153345 [address] mouth [address] in 15:53: 3D (three) Hospita hydr/fiber 19 times a l (PRO-STAT day. RENAL CARE ORAL) senna 2018-03 Yes 2{tbl} Q12H Take 2 [facility] (SENOKOT) 1-[address] 8.6 mg 15:53: mouth Hospita tablet 19 every 12 l (twelve) hours. traMADol 2018-03 Yes 55053 50mg Q6H Take 50 mg Me thodi [...] for l sleep. albuterol 2018-03 Yes 2.5mg Q.75147816 Take 2.5 [facility] sulfate 1-[address] (PROVENTIL) 15:53: 3D nebulizati [...] OPHT) day. 0.4% calcium 2018-03 Yes 2001mg Q.96668253 Take 2,001 [facility] acetate 1-[address] (PHOSLO) 15:53: 3D mouth 3 Hospit a 667 mg 19 (three) l capsule times a day with meals. Give 15 minutes before meals clonIDINE 2018-03 Yes .2mg Q.50910847 Take 0.2 [facility] HCl 1-[address] (CATAPRES) 15:53: 3D mouth [...] needed for pain LIDOCAINE 2018-03 Yes 1{appli Q.72948519 Apply 1 [facility] HCL TOP 1-30 cation} [id number] applicatio [facility] 15:53: 3W n Hospita 19 [...] 19 l packet amino 2018-03 Yes 30mL Q.63937680 Take 30 mL [facility] acids/prote 1-30 7415097218 [address] mouth [address] in 15:53: 3D (three) Hospita hydr/fiber 19 times a l (PRO-STAT day. RENAL CARE ORAL) senna 2018-03 Yes 2{tbl} Q12H Take 2 [facility] (SENOKOT) 1-[address] 8.6 mg 15:53: mouth Hospita tablet 19 every 12 l (twelve) hours. traMADol 2018-03 Yes 44434 50mg Q6H Take 50 mg Me thodi [...] for l sleep. albuterol 2018-03 Yes 2.5mg Q.84538283 Take 2.5 [facility] sulfate 1-[address] (PROVENTIL) 15:53: 3D nebulizati [...] OPHT) day. 0.4% calcium 2018-03 Yes 2001mg Q.83097553 Take 2,001 [facility] acetate 1-[address] (PHOSLO) 15:53: 3D mouth 3 Hospit a 667 mg 19 (three) l capsule times a day with meals. Give 15 minutes before meals clonIDINE 2018-03 Yes .2mg Q.26472273 Take 0.2 [facility] HCl 1-[address] (CATAPRES) 15:53: 3D mouth [...] needed for pain LIDOCAINE 2018-03 Yes 1{appli Q.83427456 Apply 1 [facility] HCL TOP 1-30 cation} [id number] applicatio [address] 15:53: 3W n Hospita 19 [...] 19 l packet amino 2018-03 Yes 30mL Q.40539727 Take 30 mL [facility] acids/prote 1-30 9867275904 by mouth [address] in 15:53: 3D (three) Hospita hydr/fiber 19 times a l (PRO-STAT day. RENAL CARE ORAL) senna 2018-03 Yes 2{tbl} Q12H Take 2 [facility] (SENOKOT) 1-[address] 8.6 mg 15:53: mouth Hospita tablet 19 every 12 l (twelve) hours. traMADol 2018-03 Yes [id number] 50mg Q6H Take 50 mg Me thodi [...] for l sleep. albuterol 2018-03 Yes 2.5mg Q.29733424 Take 2.5 [facility] sulfate 1-[address] (PROVENTIL) 15:53: 3D nebulizati Hospita 2.5 mg/0.5 19 on 3 l mL solution (three) for times a nebulizatio day as n needed (congestio n/cough). albuterol 2018-03 Yes 2.5mg Q.60194174 Take 2.5 [facility] sulfate 1-[address] (PROVENTIL) 15:53: 3D nebulizati [...] OPHT) day. 0.4% calcium 2018-03 Yes 2001mg Q.46373213 Take 2,001 [facility] acetate 1-[address] (PHOSLO) 15:53: 3D mouth 3 Hospit a 667 mg 19 (three) l capsule times a day with meals. Give 15 minutes before meals clonIDINE 2018-03 Yes .2mg Q.60403890 Take 0.2 [facility] HCl 1-[address] (CATAPRES) 15:53: 3D mouth [...] needed for pain LIDOCAINE 2018-03 Yes 1{appli Q.90577583 Apply 1 [facility] HCL TOP 1-30 cation} [id number] applicatio [address] 15:53: 3W n Hospita 19 [...] 19 l packet amino 2018-03 Yes 30mL Q.10089568 Take 30 mL [facility] acids/prote 1-30 7903664390 by mouth [address] in 15:53: 3D (three) Hospita hydr/fiber 19 times a l (PRO-STAT day. RENAL CARE ORAL) senna 2018-03 Yes 2{tbl} Q12H Take 2 [facility] (SENOKOT) 1-[address] 8.6 mg 15:53: mouth Hospita tablet 19 every 12 l (twelve) hours. traMADol 2018-03 Yes 39472 50mg Q6H Take 50 mg Me thodi [...] as Hospita 19 needed for l sleep. traMADol 2018-03 Yes 50mg Take 50 mg [...] mouth Medical 220 (50) mg 44 daily. [facility] capsule cetirizine 2018-03 Yes 10mg QD Take [...] 22:13: infarction mouth Medica l 44 daily. [place] calcium 2018-03 Yes 667mg Q.86761096 Take [address] acetate 1-21 [id number] [facility] (PHOSLO) 22:13: 3D mouth 3 Medica l 667 mg 44 (three) Center capsule times daily. cloNIDine 2018-03 Yes hypertensio .2mg Q.60069157 Take 0.[address] HCl 1-21 n 4058695449 mg [facility] (CATAPRES) 22:13: 3D mouth [...] Center gram/dose powder amino 2018-03 Yes 30mL Q.95459465 Take [address] acids-prote 1-21 5069543516 mLs [facility] in 22:13: 3D mouth [...] MG tablet 22:13: daily. Medica l 44 [place] lidocaine 3 2018-03 Yes administrat 1{appli Apply [address] [facility] [facility] % Crea 1-21 ion of cation} applicatio [facility] 22:13: local n Medical [address] amLODIPine 2018-03 Yes hypertensio 5mg QD Take [address] (NORVASC) 1-21 n by mouth [facility] 10 MG 22:13: daily. Medical tablet 44 Center hydroxyprop 2018-03 Yes dry eye 1[drp] Q.5D Place [address] yl 1-[address] [facility] methylcellu 22:13: both eyes M edical lose 44 2 (two) Center (ISOPTO times TEARS) 2.5 daily % Artificial ophthalmic tears solution solution 0.4% (hypromell ose) . aspirin 325 2018-03 Yes acute 325mg QD Take [address] MG tablet 1-21 myocardial mg by Mike es 22:13: infarction mouth Medica l 44 daily. [place] calcium 2018-03 Yes 667mg Q.08727427 Take [address] acetate 1-21 [id number] mg [facility] (PHOSLO) 22:13: 3D mouth 3 Medica l 667 mg 44 (three) Center capsule times daily. cloNIDine 2018-03 Yes hypertensio .2mg Q.74214210 Take 0.[address] HCl 1-21 n [id number] mg [facility] (CATAPRES) 22:13: 3D mouth [...] [address] mg Tab -21 by mouth [facility] tablet 22:13: every Medical [...] Center gram/dose powder amino 2018-03 Yes 30mL Q.60066624 Take [address] acids-prote 1-21 3278284302 mLs [facility] in 22:13: 3D mouth [...] % Crea 1-21 ion of cation} applicatio kes 22:13: local n Medical 44 anesthesia topically. [...] 44 daily. Center calcium 2018-03 Yes 667mg Q.68717569 Take [address] acetate 1-21 2928463985 mg [facility] (PHOSLO) 22:13: 3D mouth 3 Medica l 667 mg 44 (three) Center capsule times daily. cloNIDine 2018-03 Yes hypertensio .2mg Q.99846403 Take 0.[address] HCl 1-21 n [id number] mg [facility] (CATAPRES) 22:13: 3D mouth [...] Center gram/dose powder amino 2018-03 Yes 30mL Q.69320281 Take [address] acids-prote 1-21 7104479675 mLs [facility] in 22:13: 3D mouth 3 Medical hydr-fiber 44 (three) Center 15 gram- times 100 kcal/30 daily. mL LiPk senna 2018-03 Yes 2{tbl} Q.5D Take [address] (SENOKOT) 1-21 tablets by Luke [facility] 8.6 mg 22:13: mouth 2 Medical tablet 44 (two) Center times daily. amLODIPine 2018-03 Yes hypertensio 5mg QD Take [...] 44 daily. Center calcium 2018-03 Yes 667mg Q.51914023 Take [address] acetate 1-21 [id number] mg [facility] (PHOSLO) 22:13: 3D mouth 3 Medica l 667 mg 44 (three) Center capsule times daily. cloNIDine 2018-03 Yes hypertensio .2mg Q.52549389 Take 0.[address] HCl 1-21 n [id number] mg by [facility] (CATAPRES) 22:13: 3D mouth [...] Center gram/dose powder amino 2018-03 Yes 30mL Q.70050496 Take [address] acids-prote 1-21 9440553915 mLs by [facility] in 22:13: 3D mouth [...] Comments Source Height 2019-02-20 00:00:00 68 [in_i] [facility] 2018-11-13 00:00:00 68 [in_i] [facility] 2018-10-25 00:00:00 68 [in_i] [facility] 2018-09-04 00:00:00 68 [in[facility]i] [facility] Procedures This patient has no known procedures. Plan of Care Planned Activity Planned Date Details Comments Source Future Scheduled 2021-11-29 HEPATITIS B VACCINES Met [facility] Test 05:50:55 (1 of 3 - 3-dose series) [code = HEPATITIS B VACCINES (1 of 3 - 3-dose series)] Future Scheduled 2021-11-29 COVID-19 VACCINE (#1) [facility] Test 05:50:55 [code = COVID-19 VACCINE (#1)] Future Scheduled 2021-11-29 Pneumococcal Vaccine: [facility] Test 05:50:55 Pediatrics (0 to 5 Years) and At-Risk Patients (6 to 64 Years) (1 - PCV) [code = Pneumococcal Vaccine: Pediatrics (0 to 5 Years) and At-Risk Patients (6 to 64 Years) (1 - PCV)] Future Scheduled 2021-11-29 Hepatitis C screening [facility] Test 05:50:55 (procedure) [code = 227893817] Future Scheduled 2021-11-29 COLONOSCOPY SCREENING [facility] Test 05:50:55 [code = COLONOSCOPY SCREENING] Future Scheduled 2021-11-29 INFLUENZA VACCINE Method is Hospital Test 05:50:55 [code = INFLUENZA VACCINE] Future Scheduled 2021-11-29 HEPATITIS B VACCINES Met [facility] Test 05:50:55 (1 of 3 - 3-dose series) [code = HEPATITIS B VACCINES (1 of 3 - 3-dose series)] Future Scheduled 2021-11-29 COVID-19 VACCINE (#1) [facility] Test 05:50:55 [code = COVID-19 VACCINE (#1)] Future Scheduled 2021-11-29 Pneumococcal Vaccine: [facility] Test 05:50:55 Pediatrics (0 to 5 Years) and At-Risk Patients (6 to 64 Years) (1 - PCV) [code = Pneumococcal Vaccine: Pediatrics (0 to 5 Years) and At-Risk Patients (6 to 64 Years) (1 - PCV)] Future Scheduled 2021-11-29 Hepatitis C screening [facility] Test 05:50:55 (procedure) [code = 479901160] Future Scheduled 2021-11-29 COLONOSCOPY SCREENING [facility] Test 05:50:55 [code = COLONOSCOPY SCREENING] Future Scheduled 2021-11-29 INFLUENZA VACCINE Method is Hospital Test 05:50:55 [code = INFLUENZA VACCINE] Future Scheduled 2021-11-29 HEPATITIS B VACCINES Met [facility] Test 05:50:55 (1 of 3 - 3-dose series) [code = HEPATITIS B VACCINES (1 of 3 - 3-dose series)] Future Scheduled 2021-11-29 COVID-19 VACCINE (#1) [facility] Test 05:50:55 [code = COVID-19 VACCINE (#1)] Future Scheduled 2021-11-29 Pneumococcal Vaccine: [facility] Test 05:50:55 Pediatrics (0 to 5 Years) and At-Risk Patients (6 to 64 Years) (1 - PCV) [code = Pneumococcal Vaccine: Pediatrics (0 to 5 Years) and At-Risk Patients (6 to 64 Years) (1 - PCV)] Future Scheduled 2021-11-29 Hepatitis C screening [facility] Test 05:50:55 (procedure) [code = 328848866] Future Scheduled 2021-11-29 COLONOSCOPY SCREENING [facility] Test 05:50:55 [code = COLONOSCOPY SCREENING] Future Scheduled 2021-11-29 INFLUENZA VACCINE Method [facility] Test 05:50:55 [code = INFLUENZA VACCINE] [...] (#1)] Future Scheduled 2021-11-16 HEPATITIS B VACCINES [facility] [place] [place] Test 04:27:12 (1 of 3 - 3-dose series) [code = HEPATITIS B VACCINES (1 of 3 - 3-dose series)] Future Scheduled 2021-11-16 COVID-19 VACCINE (#1) [facility] Test 04:27:12 [code = COVID-19 VACCINE (#1)] Future Scheduled 2021-11-16 Pneumococcal Vaccine: [facility] Test 04:27:12 Pediatrics (0 to 5 Years) and At-Risk Patients (6 to 64 Years) (1 - PCV) [code = Pneumococcal Vaccine: Pediatrics (0 to 5 Years) and At-Risk Patients (6 to 64 Years) (1 - PCV)] Future Scheduled 2021-11-16 Hepatitis C screening [facility] Test 04:27:12 (procedure) [code = 900116151] Future Scheduled 2021-11-16 INFLUENZA VACCINE Method [facility] Test 04:27:12 [code = INFLUENZA VACCINE] Future Scheduled 2021-03-[address] [facility] Test 00:00:00 (12+) [code = Medical Center DEPRESSION SCREENING (12+)] Future Scheduled 2021-03-[address] [facility] Test 00:00:00 (12+) [code = Medical Center DEPRESSION SCREENING (12+)] Future Scheduled 2021-03-[address] [facility] Test 00:00:00 (12+) [code = [facility] DEPRESSION SCREENING (12+)] Future Scheduled 2021-03-[address] [facility] Test 00:00:00 (12+) [code = [facility] DEPRESSION SCREENING (12+)] Diagnostic Test 2019-02-21 17-hydroxyprogesterone [facility] Pending 00:00:00 , quantitative, serum Group [code [...] [facility] s Test 00:00:00 (procedure) [code = [facility] 16984535] Future Scheduled [address] [facility] Test 00:00:00 (procedure) [code = [facility] 80432736] Future Scheduled [address] [facility] Test 00:00:00 (procedure) [code = [facility] 46995562] Future Scheduled [address] [facility] Test 00:00:00 (procedure) [code = [facility] 17929630] Future Scheduled 1994 DTAP/TDAP/TD VACCINES CH I [...] Medica l Center colon (procedure) [code = 135568871] Future Scheduled [address] [facility] Test 00:00:00 malignant neoplasm of Medica l Center colon (procedure) [code = 041094672] Future Scheduled [address] [facility] [facility] Test 00:00:00 malignant neoplasm of Medica l Center colon (procedure) [code = 377798719] Future Scheduled [address] [facility] Test 00:00:00 malignant neoplasm of Medica l Center colon (procedure) [code = 597207173] Future Scheduled 1975 Sigmoidoscopy [facility]] Medical Cente r Future Scheduled [address] [facility] Test 00:00:00 (combo) [code = CT Medical C enter Colonography (combo)] Future Scheduled [address] [facility] Test 00:00:00 malignant neoplasm of Medica l Center colon (procedure) [code = 002393989] Future Scheduled [address] [facility] [facility] Test 00:00:00 malignant neoplasm of Medica l Center colon (procedure) [code = 769497843] Future Scheduled [address] [facility] Test 00:00:00 malignant neoplasm of Medica l Center colon (procedure) [code = 069908317] Future Scheduled [address] [facility] [facility] Test 00:00:00 malignant neoplasm of Medica l Center colon (procedure) [code = 295509096] Future Scheduled 1975 Sigmoidoscopy [facility]] Medical Cente r Future Scheduled [address] [facility] Test 00:00:00 (combo) [code = CT Medical C enter Colonography (combo)] Future Scheduled [address] [facility] [facility] Test 00:00:00 malignant neoplasm of Medica l Center colon (procedure) [code = 593138654] Future Scheduled [address] [facility] Test 00:00:00 malignant neoplasm of Medica l Center colon (procedure) [code = 906797833] Future Scheduled [address] [facility] [facility] Test 00:00:00 malignant neoplasm of Medica l Center colon (procedure) [code = 131475679] Future Scheduled [address] [facility] [facility] Test 00:00:00 malignant neoplasm of Medica l Center colon (procedure) [code = 387177914] Future Scheduled 1975 Sigmoidoscopy [facility]code [facility] 00:00:[facility]oscopy] Medical Sabinee r Future Scheduled [address] [facility] Test 00:00:00 (combo) [code = CT Medical C enter Colonography (combo)] Future Scheduled [address] [facility] Test 00:00:00 malignant neoplasm of Medica l Center colon (procedure) [code = 400472704] Future Scheduled [address] [facility] Test 00:00:00 malignant neoplasm of Medica l Center colon (procedure) [code = 981555486] Future Scheduled [address] [facility] Test 00:00:00 malignant neoplasm of Medica l Center colon (procedure) [code = 374544439] Future Scheduled [address] [facility] Test 00:00:00 malignant neoplasm of Medica l Center colon (procedure) [code = 930851155] Future Scheduled 1975 Sigmoidoscopy [facility]code [facility] 00[facility] S[facility]oscopy] Medical Dennis r Encounters Start End Encounter Admission Attending Care Care Encounter Source Date/Time Date/Time Type Type Clinicians Facility Department ID 2021-11-19 Outpatient [facility] [id number] [place] 10:07:20 [id number] [facility] 2021-10-16 Outpatient JAY, [facility] [id number] [place] 14:38:07 ENRIQUE [id number] [facility] 2021-09-25 Outpatient JAY, [facility] [id number] [place] 09:31:27 ENRIQUE [id number] [facility] 2021-09-17 Outpatient JAY, [facility] [id number] [place] 10:08:53 ENRIQUE [id number] [facility] 2021-09-04 Outpatient JAY, [facility] [id number] [place] 12:19:20 ENRIQUE [id number] [facility] 2015-12-08 Inpatient [facility] MED [id number] St. 18:48:00 [facility] 2021-11-24 2021-11-24 Outpatient [facility] PRIV PRIV [id number] [facility] 00:00:00 00:00:00 d_J [id number] Medica l 2021-11-20 2021-11-20 Outpatient [facility]_Tod PRIV PRIV [id number] [facility] 00:00:00 00:00:00 d_J [id number] Medica l 2021-11-20 2021-11-20 Outpatient Vito, PRIV PRIV [id number] 00:00:00 00:00:00 Mara [id number] [facility] 2021-11-16 2021-11-16 Outpatient [facility]_Tod PRIV PRIV [id number] [facility] 00:00:00 00:00:00 d_J [id number] Medica l 2021-11-08 2021-11-08 Outpatient [facility]_Tod PRIV PRIV 205 [id number] [facility] 00:00:00 00:00:00 d_J [id number] Medica l 2021-11-08 2021-11-08 Outpatient Fabio, PRIV PRIV [id number] 00:00:00 00:00:00 Robert Mojica [id number] 2021-11-02 2021-11-02 Outpatient [facility]Tod PRIV PRIV 205 [id number] [facility] 00:00:00 00:00:00 d_J [id number] Medica l 2021-11-02 2021-11-02 Outpatient Vito, PRIV PRIV [id number] [id number] 00:00:00 00:00:00 Mara [id number] 2021-10-28 2021-10-28 Outpatient [facility]_Tod PRIV PRIV [id number] [facility] 00:00:00 00:00:00 d_J [id number] Medica l 2021-10-20 2021-10-20 Outpatient GC_[facility]HC_Tod PRIV PRIV 205 [id number] [facility] 10:42:00 10:42:00 d_J [id number] Medica l 2021-10-19 2021-10-19 Outpatient [facility]_Tod PRIV PRIV 205 [id number] [facility] 07:48:00 07:48:00 d_J [id number] Medica l 2021-10-19 2021-10-19 Outpatient Vito, PRIV PRIV [id number] 00:00:00 00:00:00 Mara [id number] 2021-10-12 2021-10-12 Outpatient [facility]_Tod PRIV PRIV 205 [id number] [facility] 03:53:00 03:53:00 d_J [id number] Medica l 2021-10-12 2021-10-12 Outpatient Vito, PRIV PRIV [id number] 00:00:00 00:00:00 Mara [id number] 2021-10-09 2021-10-09 Outpatient [facility] [id number] 11:56:00 11:56:00 BETH [id number] da [facility] 2021-10-05 2021-10-05 Outpatient GC_BAHC_Tod PRIV PRIV [id number] [facility] 11:01:00 11:01:00 d_J [id number] Medica l 2021-10-04 2021-10-04 Outpatient GC_BAHC_Tod PRIV PRIV 205 [id number] [facility] 09:10:00 09:10:00 d_J [id number] Medica l 2021-10-03 2021-10-03 Outpatient GC_BAHC_Tod PRIV PRIV 205 [id number] [facility] 02:45:00 02:45:00 d_J [id number] Medica l 2021-10-02 2021-10-02 Outpatient GC_BAHC_Tod PRIV PRIV [id number] [facility] 05:08:00 05:08:00 d_J [id number] Medica l 2021-10-02 2021-10-02 Outpatient Vito, PRIV PRIV [id number] [id number] 00:00:00 00:00:00 Mara [id number] 2021-09-26 2021-09-26 Outpatient [facility]_Tod PRIV PRIV [id number] [facility] 09:13:00 09:13:00 d_J [id number] Medica l 2021-09-26 2021-09-26 Outpatient Vito PRIV PRIV [id number] 00:00:00 00:00:00 Mara [id number] 2021-09-25 2021-09-25 Office Jay ADRI [facility] [id number] [place] 11:15:00 12:43:09 Visit [facility] [id number] jake RAMSEY [id number] 2021-09-21 2021-09-21 Outpatient GC_[facility]_Tod PRIV PRIV 205 [id number] [facility] 04:44:00 04:44:00 d_J [id number] Medica l 2021-09-17 2021-09-17 Outpatient GC_BAHC_Tod PRIV PRIV 205 [id number] [facility] 11:11:00 11:11:00 d_J [id number] Medica l 2021-09-13 2021-09-13 Outpatient GC_BAHC_Tod PRIV PRIV 205 [id number] [facility] 10:39:00 10:39:00 d_J [id number] Medica l 2021-09-13 2021-09-13 Outpatient Fabio, PRIV PRIV [id number] 00:00:00 00:00:00 Robert Mojica [id number] 2021-09-10 2021-09-10 Outpatient [facility]_Tod PRIV PRIV [id number] [facility] 03:35:00 03:35:00 d_J [id number] Medica l 2021-09-04 2021-09-04 Outpatient GC_BAHC_Tod PRIV PRIV 205 [id number] [facility] 07:32:00 07:32:00 d_J [id number] Medica l 2021-09-04 2021-09-04 Outpatient Vito, PRIV PRIV [id number] 00:00:00 00:00:00 Mara [id number] 2021-08-31 2021-08-31 Outpatient [facility]_Tod PRIV PRIV 205 [id number] [facility] 02:07:00 02:07:00 d_J [id number] Medica l 2021-08-23 2021-08-23 Outpatient GC_BAHC_Tod PRIV PRIV 205 [id number] [facility] 11:05:00 11:05:00 d_J [id number] Medica l 2021-08-22 2021-08-22 Outpatient GC_BAHC_Tod PRIV PRIV [id number] [facility] 07:00:00 07:00:00 d_J [id number] Medica l 2021-08-22 2021-08-22 Outpatient Vito, PRIV PRIV [id number] 00:00:00 00:00:00 Mara [id number] 2021-08-19 2021-08-19 Outpatient GC_BAHC_Tod PRIV PRIV [id number] [facility] 10:45:00 10:45:00 d_J [id number] Medica l 2021-08-14 2021-08-14 Outpatient GC_BAHC_Tod PRIV PRIV 205 [id number] [facility] 03:16:00 03:16:00 d_J [id number] Medica l 2021-08-14 2021-08-14 Outpatient Vito, PRIV PRIV [id number] [id number] 00:00:00 00:00:00 Maar wool [id number] 2021-08-10 2021-08-10 Outpatient GC_[facility]HC_Tod PRIV PRIV [id number] [facility] 01:10:00 01:10:00 d_J [id number] Medica l 2021-08-10 2021-08-10 Outpatient Vito, PRIV PRIV [id number] e-[id number] 00:00:00 00:00:00 Mara [id number] 2021-08-08 2021-08-08 Outpatient GC_BAHC_Tod PRIV PRIV [id number] [facility] 10:53:00 10:53:00 d_J [id number] Medica l 2021-08-04 2021-08-04 Outpatient GC_BAHC_Tod PRIV PRIV [id number] [facility] 10:45:00 10:45:00 d_J [id number] Medica l 2021-07-31 2021-07-31 Outpatient GC_BAHC_Tod PRIV PRIV [id number] [facility] 07:56:00 07:56:00 d_J [id number] Medica l 2021-07-31 2021-07-31 Outpatient Vito, PRIV PRIV [id number] 00:00:00 00:00:00 Mara [id number] 2021-07-27 2021-07-27 Outpatient GC_BAHC_Tod PRIV PRIV 205 [id number] [facility] 08:30:00 08:30:00 d_J [id number] Medica l 2021-07-27 2021-07-27 Outpatient Vito, PRIV PRIV [id number] 00:00:00 00:00:00 Mara [id number] 2021-07-19 2021-07-19 Outpatient GC_BAHC_Tod PRIV PRIV 205 [id number] [facility] 08:26:00 08:26:00 d_J [id number] Medica l 2021-07-19 2021-07-19 Outpatient Fabio, PRIV PRIV [id number] 00:00:00 00:00:00 Robert Mojica [id number] 2021-07-19 2021-07-19 Outpatient Fabio, PRIV PRIV [id number] 00:00:00 00:00:00 Robert Mojica [id number] 2021-07-13 2021-07-13 Outpatient GC_BAHC_Tod PRIV PRIV 205 [id number] [facility] 02:12:00 02:12:00 d_J [id number] Medica l 2021-07-12 2021-07-12 Outpatient GC_BAHC_Tod PRIV PRIV 205 [id number] [facility] 05:07:00 05:07:00 d_J [id number] Medica l 2021-07-12 2021-07-[address], PRIV PRIV [id number] 00:00:00 00:00:00 June [id number] 2021-07-12 2021-07-[address], PRIV PRIV [id number] 00:00:00 00:00:00 June [id number] 2021-07-11 2021-07-11 Outpatient GC_BAHC_Tod PRIV PRIV [id number] [facility] 10:53:00 10:53:00 d_J [id number] Medica l 2021-07-06 2021-07-06 Outpatient GC_BAHC_Spa PRIV PRIV 205 [id number] [facility] 05:28:00 05:28:00 [place]illo [id number] Medica l 2019-02-20 2019-02-20 K[place] [facility] [id number] [facility]:00 00:00:00 Celestino Singh, Medical Medical MD: [address] [place] [address] [address] [address] , Ph. 2018-11-13 2018-11-13 Keven MM [place] - [id number] [place] 00:00:00 00:00:00 Celestino Singh Medical Medical MD: [address] [facility] [address], [place] [address] , Ph. 2018-10-25 2018-10-25 Keven MM [place] - [id number] [place] 00:00:00 00:00:00 Christo Collins Medical MD: [address] [place] [address] [address], [place] [address] , Ph. 2018-09-04 2018-09-04 Keven MM [place] - [id number] [place] 00:00:00 00:00:00 Christo Collins MD: [address] [place] [address] [address], [place] [address] , Ph. 2017-09-07 2017-09-08 Inpatient Christian[place] [facility] [place] [id number] [facility] 15:44:00 [facility] 2017-09-01 2017-09-04 In[facility] KHADAR PUR[place] [facility] [place] [id number] [facility] 20:55:00 18:24:00 [facility] Results Test Description Test Time Test Comments Results Result Comments Source HEPATITIS B SURFACE ANTIGEN 2019-02-18 18:21:00 Test Item Value Reference Range Interpretation Comme nts HEPATITIS B SURFACE ANTIGEN (2) (BEAKER) (test code = Nonreactive Nonreactive 2585) ANG, THROMBECTOMY, A-V [id number] 13:26:00Reason for exam:- >nonfunctioning fistulaAnesthesia:->moderateFINAL REPORT DIALYSIS [...] MDReport Verified Date/Time: 02/18/2019 13:26:57 Reading Location: [facility] Radiology Reading Room [id number] 05:52:00 Test Item Value Reference Range Interpretation Comments MAGNESIUM (BEAKER) (test code = 2.0 mg/dL 1.5-3.0 627) BASIC METABOLIC [id number] 05:51:00 Test Item Value Reference Range Interpretation [...] PATIEN TS. CBC W/PLT COUNT & AUTO [id number] 05:37:00 Test Item Value Reference Range Interpretation [...] = 2801) RAD, CHEST, 1 VIEW, NON [id number] 09:21:00Reason for exam:- >pneumoniaShould this be performed at the bedside?->YesFINAL REPORT TECHNIQUE: Frontal view of the chest. INDICATION: pneumonia COMPARISON:Prior day. IMPRESSION:Lines and hardware: Stable.Heart and mediastinum: Stable.Lungs and pleura:Probable scattered atelectasis. No focal airspace consolidation. Central coronary venous congestion.No pleural effusion. No pneumothorax.Soft tissues and bones: No acute abnormality. Signed: Rupinder Perez MDReport Verified Date/Time: 02/17/2019 09:21:38 Reading Location: [facility] Radiology Reading Room COMPREHENSIVE METABOLIC [id number] 06:48:00 Test Item Value Reference Range Interpretation [...] S NOT APPLICABLE FOR DIALYSIS PATIEN TS. [id number] 06:30:00 Test Item Value Reference Range Interpretation Comments MAGNESIUM (BEAKER) (test code = 2.0 mg/dL 1.5-3.0 627) TROPONIN [id number] 06:27:00 Test Item Value Reference Range Interpretation [...] = 2801) RAD, CHEST, 1 VIEW, NON [id number] 00:02:00Reason for exam:- >PNEUMONIAShould this be performed [...] suggestive of mild volume overload. Signed: Kristian Garcia Verified Date/Time: 02/17/2019 00:02:21 Reading Location: [address] Consult Reading Room TROPONIN [id number] 19:17:00 Test Item Value Reference Range Interpretation [...] acute neurological disease, and persistent tachyarrhythmia.COMPREHENSIVE METABOLIC [id number] 19:13:00 Test Item Value Reference Range Interpretation [...] S NOT APPLICABLE FOR DIALYSIS PATIEN TS. [id number] 19:10:00 Test Item Value Reference Range Interpretation Comments MAGNESIUM (BEAKER) 2.1 mg/dL 1.5-3.0 Specimen moderately (test code = 627) hemolyzed CBC W/PLT COUNT & AUTO [id number] 18:47:00 Test Item Value Reference Range Interpretation [...] PERCENT (BEAKER) (test code = 2801) BLOOD [id number] 07:18:00 Test Item Value Reference Range Interpretation Comments Culture Observations (test NO GROWTH AFTER 5 code = COB1) DAYS BLOOD [id number] 07:18:00 Test Item Value Reference Range Interpretation Comments Culture Observations (test NO GROWTH AFTER 5 code = COB1) DAYS HEPATITIS B CORE ANTIBODY,[id number] 12:26:00 Test Item Value Reference Range Interpretation Comments HEPATITIS B CORE AB NON-REACTIVE NON-REACTIVE TEST PER FORMED TOTAL (test code = AT:[facility] [id number]) [id number] [place] [address]ANJKIKAI SANTIAGO M.D. XR CHEST 1 [id number] 08:09:24 Location of dictation: E0Rlorrksl chest one view.HISTORY: J81.1: CHRONIC PULMONARY EDEMACOMMENT: Compared to one day prior. The heart is enlarged but stable, globularappearance suggests pericardial eff usion. Small effusions are now presentslightly greater on the left. No new consolidation, pneumothorax seen.Impression:1. Stable cardiomegaly with concern for pericardial effusion.2. Interval development of small effusions slightly greater on the left.BASIC METABOLIC [id number] 07:14:00 Test Item Value Reference Range Interpretation [...] code = RBCMOR) NORMAL XR CHEST 1 [id number] 07:33:56STUDY: Chest radiographHISTORY: Fever.COMPARISON: 09/05/17TECHNIQUE: Frontal view of the chest.LOCATION: [id number]:The cardiac silhouette is enlarged, stable. Bilateral patchy perihilaropacities are similar in appearance. There is no definitive pleural effusion ordiscernible pneumothorax. No acute osseous abnormalities are identified.IMPRESSION:Stable appearance of bilateral perihilar patchy opacities and cardiomegaly.BASIC METABOLIC [id number] 04:50:00 Test Item Value Reference Range Interpretation [...] (test code = 09D) 8.6 mg/dL 8.3-9.5 [id number] 04:43:00 Test Item Value Reference Range Interpretation [...] MORPH (test code = RBCMOR) NORMAL CARDIAC [id number] 03:24:00 Test Item Value Reference Range Interpretation Comments TROPONIN I (test code = A84) 0.269 ng/mL 0.000-0.045 H CKMB (test code = A49) 7.8 ng/mL <=3.6 HH CPK (test code = 32A) 414 IU/L 39-308 H BASIC METABOLIC [id number] 03:08:00 Test Item Value Reference Range Interpretation [...] code = RBCMOR) NORMAL HEPATITIS B SURFACE [id number] 21:09:00 Test Item Value Reference Range Interpretation Comments HBSAB (test code = HBSAB) REACTIVE REACTIVE HEPATITIS B SURFACE [id number] 20:37:00 Test Item Value Reference Range Interpretation Comments HBSAG (test code = HBSAG) NON-REACTIVE NON-REACTIVE CARDIAC [id number] 20:23:00 Test Item Value Reference Range Interpretation Comments TROPONIN I (test code = A84) 0.231 ng/mL 0.000-0.045 H CKMB (test code = A49) 11.0 ng/mL <=3.6 HH CPK (test code = 32A) 469 IU/L 39-308 H PRO TIME AND [id number] 11:37:00 Test Item Value Reference Range Interpretation [...] = RBCMOR) NORMAL XR CHEST 1 VIEW [id number] 10:04:30EXAMINATION: XR CHEST 1 VIEW PORTABLE.LOCATION: .HISTORY: Chest pain, dyspnea.COMPARISON: Chest x-ray 09/01/2017.FINDINGS:Examination is limited due to portable technique and low lung volumes.Cardiac silhouette/Mediastinal contour: Persistent enlargement of cardiacsilhouette. Lungs: Patchy bilateral scattered airspace opacities, essentially unchanged.Tiny bilateral pleural effusions. Osseous Structures: No acute osseous abnormalities.Vascular stent and postoperative clips project over left mid arm.IMPRESSION:Patchy bilateral scattered airspace opacities with tiny effusions, unchangedsince 09/01/2017,probably reflect vascular congestion.OCCULT [id number] 11:04:00 Test Item Value Reference Range Interpretation [...] 31A) 27 IU/L <=78 CBC (INCLUDES AUTOMATED DIFFERENTIAL)*[id number] 09:07:00 Test Item Value Reference Range Interpretation [...] NORMAL WRBCMOR) HEPATITIS B CORE IgM ANTIBODY *WW*2017-09-03 06:17:00 Test Item Value Reference Range Interpretation Comments HEPATITIS B CORE NON-REACTIVE NON-REACTIVE TEST PERFOR MED ANTIBODY (IGM) (test AT:[facility] code = 11355871) [id number] [place] [address]ANQIKKAI SANTIAGO M.D. HEPATITIS B SURFACE ANTIBODY *WW*2017-09-02 15:30:00 Test Item Value Reference Range Interpretation Comments HBSAB (test code = HBSAB) REACTIVE REACTIVE XR CHEST 2 VIEW *WW*2017-09-01 23:21:54XR CHEST 2 VIEW *WW*Location:[address] services provided 09/01/2017 11:21 PMIndication:[id number]: Hypertensive disorderComparison:Not currently availableFindings:The heart is enlarged with mild engorgement of the pulmonaryvascularity and prominence of the pulmonary interstitium. Bilateral pleuralfluid collections are noted. No chicho lobar consolidation is seen. No acutebony abnormality.Impression:Findings concerning for cardiogenic pulmonary edema with bilateralpleural fluid collections. HEPATITIS B CORE ANTIBODY,[id number] 12:54:00 Test Item Value Reference Range Interpretation Comments HEPATITIS B CORE AB NON-REACTIVE NON-REACTIVE TEST PER FORMED TOTAL (test code = AT:[facility] 12254226) [id number] [place] [address]BTITRKAI SANTIAGO M.D. GLUCOMETER GLUCOSE- LAB USE [id number] 06:26:00 Test Item Value Reference Range Interpretation Comments GLUCOMETER (test code = 102 mg/dL 70-100 H Mete r ID: GMG) [id number] tor: [id number] NM LUNG (V/Q ) SCAN W [id number] 15:28:50Radionuclide ventilation/perfusion lung scanLocation Code: L1PKCQIHU: Shortness of breathCOMPARISON:None.COMMENT: Routine images of the lungs were obtained after inhalation of 11.1 mCiof Xe133 gas andintravenous injection of 6.0 mCi 99 M technetium MAA.Ventilation is symmetric bilaterally with no focal defect. There is nosignificant trapping.Perfusion images demonstrate normal and symmetric perfusion with no segmentaldefect to suggest a PE.IMPRESSION: Normal VQ scan with a low probability of PE.BASIC METABOLIC [id number] 07:39:00 Test Item Value Reference Range Interpretation [...] code = RBCMOR) NORMAL HEPATITIS B SURFACE [id number] 18:54:00 Test Item Value Reference Range Interpretation Comments HBSAB (test code = HBSAB) REACTIVE REACTIVE HEPATITIS B SURFACE [id number] 18:37:00 Test Item Value Reference Range Interpretation Comments HBSAG (test code = HBSAG) NON-REACTIVE NON-REACTIVE CARDIAC [id number] 18:35:00 Test Item Value Reference Range Interpretation Comments TROPONIN I (test code = A84) 0.115 ng/mL 0.000-0.045 H CKMB (test code = A49) 7.0 ng/mL <=3.6 HH CPK (test code = 32A) 652 IU/L 39-308 H CARDIAC [id number] 14:04:00 Test Item Value Reference Range Interpretation Comments TROPONIN I (test code = A84) 0.120 ng/mL 0.000-0.045 H CKMB (test code = A49) 7.4 ng/mL <=3.6 HH CPK (test code = 32A) 651 IU/L 39-308 H GLUCOMETER GLUCOSE- LAB USE [id number] 11:12:00 Test Item Value Reference Range Interpretation Comments GLUCOMETER (test code = 99 mg/dL 70-100 LIGIA [place] METERMeter ID: GMG) [id number] tor: [address] [facility] GLUCOMETER GLUCOSE- LAB USE [id number] 04:22:00 Test Item Value Reference Range Interpretation Comments GLUCOMETER (test code = 116 mg/dL 70-100 H Mete r ID: GMG) [id number] tor: [address] GLUCOMETER GLUCOSE- LAB USE [id number] 03:33:00 Test Item Value Reference Range Interpretation Comments GLUCOMETER (test code = 42 mg/dL 70-100 LL Mete r ID: GMG) [id number] tor: [address] NDJESSIE BRAIN NATRIURETIC [id number] 02:13:00 Test Item Value Reference Range Interpretation Comments proBNP (test code = PBNP) >778938 pg/mL 0-125 H XR ABDOMEN 2 VIEWS W/PA [id number] 02:11:50-CHEST AP VIEW-ABDOMEN AP AND UPRIGHT VIEWS LOCATION: [id number] INDICATION: Vomiting and shortnessof breathCOMPARISON: None FINDINGS: [...] obstruction, CT is recommended for further assessment.CARDIAC [id number] 01:33:00 Test Item Value Reference Range Interpretation Comments TROPONIN I (test code = A84) 0.147 ng/mL 0.000-0.045 H CKMB (test code = A49) 7.0 ng/mL <=3.6 HH CPK (test code = 32A) 688 IU/L 39-308 H COMPREHENSIVE METABOLIC [id number] 01:32:00 Test Item Value Reference Range Interpretation [...] 31A) 121 IU/L <=78 H AMYLASE AND [id number] 01:31:00 Test Item Value Reference Range Interpretation Comments AMYLASE (test code = 10A) 157 U/L 28-100 H LIPASE (test code = 60A) 224 IU/L 73-393 [id number] 01:26:00 Test Item Value Reference Range Interpretation Comments D-DIMER (test code = 687 ng/mL D-DU 0-234 H DDI) D-DIMER COMMENT (test *Level to rule out code = DDCOM) DVT or PE: <235 ng/mL D-DU* PRO TIME AND [id number] 01:26:00 Test Item Value Reference Range Interpretation [...]
[2021-12-03 01:07] LABS: Absolute Lymphocytes (CBC) 1.5 K/uL (0.7-4.9); Hematocrit 26.4 % (39.6-49.0); Lymphocytes % 14.3 % (15.3-44.8); MCV 90.3 fL (80-100); MPV 8.7 fL (7.6-11.3); RBC Red Blood Cell Count 2.93 M/uL (4.33-5.43)
[2021-12-03] MEDS ORDERED: NA CHLORIDE 0.9% 500 ML ONE (01:16)
[2021-12-03 01:21] LABS: Protime INR 1.16
[2021-12-03] MEDS ORDERED: LIDOCAINE 1% MPF 30 ML VIAL ONE (01:25)
[2021-12-03 01:33] LABS: Albumin 3.1 g/dL (3.4-5.0); Bilirubin Total 0.5 mg/dL (0.2-1.0); Protein, Total 7.7 g/dL (6.4-8.2)
[2021-12-03 01:34] LABS: Potassium 5.7 mmol/L (3.5-5.1)
[2021-12-03] MEDS ORDERED: SILVER NITRATE 1 APPL TOP ONE (01:45)
--- NOTE | 2021-12-03 02:06 | EDPHYS ---
Physician Documentation [facility] Name: Velasquez Cruz Age: 46 yrs Sex: Male : 1975 Arrival Date: 12/03/2021 Time: 00:00 Bed 17 Private MD: ED Physician Abelino Nuñez HPI: 12/03 01:14 This 46 yrs old Black Male presents to ER via EMS with complaints of left ear bleeding, samm sp fall 11/20/21. 01:14 The patient presents with a deformity, pain, swelling, tenderness. The complaints samm affect the left ear. Onset: The symptoms/episode began/occurred just prior to arrival. Modifying factors: The symptoms are alleviated by nothing, the symptoms are aggravated by nothing. Associated signs and symptoms: Pertinent positives: lightheadedness. Severity of symptoms: At their worst the symptoms were moderate in the emergency department the symptoms are unchanged. The patient has experienced similar episodes in the past, a few times. Historical: - Allergies: 00:03 No Known Allergies; ja4 - Immunization history:: Adult Immunizations up to date. ROS: 01:15 Constitutional: Negative for fever, chills, and weight loss, Eyes: Negative for injury, samm pain, redness, and discharge, Neck: Negative for injury, pain, and swelling, Cardiovascular: Negative for chest pain, palpitations, and edema, Respiratory: Negative for shortness of breath, cough, wheezing, and pleuritic chest pain, Abdomen/GI: Negative for abdominal pain, nausea, vomiting, diarrhea, and constipation, Back: Negative for injury and pain, : Negative for injury, bleeding, discharge, and swelling, MS/Extremity: Negative for injury and deformity, Skin: Negative for injury, rash, and discoloration, Neuro: Negative for headache, weakness, numbness, tingling, and seizure, Psych: Negative for depression, anxiety, suicide ideation, homicidal ideation, and hallucinations, Allergy/Immunology: Negative for hives, rash, and allergies, Endocrine: Negative for neck swelling, polydipsia, polyuria, polyphagia, and marked weight changes, Hematologic/Lymphatic: Negative for swollen nodes, abnormal bleeding, and unusual bruising. 01:15 ENT: Positive for ear pain, bleeding fro incision repair. Exam: 01:15 Constitutional: This is a well developed, well nourished patient who is awake, alert, samm and in no acute distress. Head/Face: Normocephalic, atraumatic. Eyes: Pupils equal round and reactive to light, extra-ocular motions intact. Lids and lashes normal. Conjunctiva and sclera are non-icteric and not injected. Cornea within normal limits. Periorbital areas with no swelling, redness, or edema. Neck: Trachea midline, no thyromegaly or masses palpated, and no cervical lymphadenopathy. Supple, full range of motion without nuchal rigidity, or vertebral point tenderness. No Meningismus. Chest/axilla: Normal chest wall appearance and motion. Nontender with no deformity. No lesions are appreciated. Cardiovascular: Regular rate and rhythm with a normal S1 and S2. No gallops, murmurs, or rubs. Normal PMI, no JVD. No pulse deficits. Respiratory: Lungs have equal breath sounds bilaterally, clear to auscultation and percussion. No rales, rhonchi or wheezes noted. No increased work of breathing, no retractions or nasal flaring. Abdomen/GI: Soft, non-tender, with normal bowel sounds. No distension or tympany. No guarding or rebound. No evidence of tenderness throughout. Back: No spinal tenderness. No costovertebral tenderness. Full range of motion. Male : Normal genitalia with no discharge or lesions. Skin: Warm, dry with normal turgor. Normal color with no rashes, no lesions, and no evidence of cellulitis. MS/ Extremity: Pulses equal, no cyanosis. Neurovascular intact. Full, normal range of motion. Neuro: Awake and alert, GCS 15, oriented to person, place, time, and situation. Cranial nerves II-XII grossly intact. Motor strength 5/5 in all extremities. Sensory grossly intact. Cerebellar exam normal. Normal gait. Psych: Awake, alert, with orientation to person, place and time. Behavior, mood, and affect are within normal limits. 01:15 ENT: External ear(s): laceration, swelling, that is moderate, of the pinna of left ear, on the . Vital Signs: 00:01 BP 162 / 89; Pulse 69; Resp 14; Pulse Ox 100% ; Weight 84.37 kg; Height 5 ft. 9 in. ja4 (175.26 cm); Pain 8/10; 02:28 BP 201 / 160; Pulse 72; Resp 16; Pulse Ox 95% on R/A; ja4 02:32 BP 134 / 109; ja4 00:01 Body Mass Index 27.47 (84.37 kg, 175.26 cm) 4 MDM: 00:17 Patient medically screened. [facility] 01:16 Data reviewed: vital signs, nurses notes, lab test result(s). Data interpreted: Cardiac [facility] monitor: rate is 69 beats/min, rhythm is regular, Pulse oximetry: on 2L(s) per nasal canula, is 100 %. Counseling: I had a detailed discussion with the patient and/or guardian regarding: the historical points, exam findings, and any diagnostic results supporting the discharge/admit diagnosis, lab results, radiology results. 02:04 Physician consultation: Mamie Andrew MD and will see patient IN DIALYSIS TOMORROW, samm GIVE KAYEXALATE PRIOR TO DC ,WILL FOLLOW UP TOMMORROW. 12/03 00:19 Order name: CBC with Diff; Complete Time: 01:47 [facility] 12/03 00:20 Order name: Comprehensive Metabolic Panel; Complete Time: 01:47 [facility] 12/03 00:20 Order name: PT-INR; Complete Time: 01:47 [facility] 12/03 00:20 Order name: Wound Care: GAUZE; Complete Time: 02:13 [facility] Administered Medications: 01:55 Discontinued: NS 0.9% 500 ml IV at bolus once [facility] 01:21 Drug: NS 0.9% 500 ml Route: IV; Rate: bolus; Site: right antecubital; ja4 02:13 Drug: Kayexalate (polystyrene) 45 grams Route: PO; ja4 02:13 Drug: Ancef (cefazolin) 1 grams Route: IVPB; Site: right upper arm; ja4 02:13 Drug: Lasix (furosemide) 60 mg Route: IVP; Site: right upper arm; ja4 02:39 Drug: HydrALAZINE 25 mg Route: PO; ja4 02:39 Drug: hydrALAZINE 10 mg Route: IVP; Site: right upper arm; ja4 02:40 Not Given (Other Intervention Used): morphine 4 mg IVP once over 4 mins ja4 02:40 Not Given (Other Intervention Used): Zofran (Ondansetron) 4 mg IVP once; over 2 minutes ja4 Disposition Summary: 12/03/21 02:05 Discharge Ordered Location: Home samm Problem: new samm Symptoms: have improved samm Condition: Stable samm Diagnosis - End stage renal disease - on HD M,W,F samm - Essential (primary) hypertension samm - Hyperkalemia samm Followup: samm - With: - When: 2 - 3 days - Reason: Recheck today's complaints, Continuance of care, Re-evaluation by your physician Followup: samm - With: - When: 2 - 3 days - Reason: Recheck today's complaints, Continuance of care, Re-evaluation by your physician Discharge Instructions: - Discharge Summary Sheet samm - Hyperkalemia samm - Hyperkalemia, Zzbs-kf-Tzuc samm - Hypertension, Adult samm - Dialysis samm - Hypertension, Adult, Gomo-gm-Qmww samm - Laceration Care, Adult, Dfeg-ew-Joub samm - How to Take Your Blood Pressure, Ddcx-os-Lpao samm - Managing Your Hypertension samm - Hemodialysis samm Forms: - Medication Reconciliation Form samm - Thank You Letter samm - Antibiotic Education samm - Prescription Opioid Use samm - SBAR form mw2 Prescriptions: - Cephalexin 500 mg Oral Capsule - take 1 capsule by ORAL route every 6 hours for 7 days; 29 capsule; Refills: 0, samm Product Selection Permitted Signatures: Dispatcher [employer] Abelino Urbano MD MD cha Allen, Jeremy, RN RN ja4
--- NOTE | 2021-12-03 02:06 | ER ---
Nurse's Notes [facility] Name: Velasquez Cruz Age: 46 yrs Sex: Male : 1975 Arrival Date: 12/03/2021 Time: 00:00 Bed 17 Private MD: Diagnosis: End stage renal disease-on HD M,W,F;Essential (primary) hypertension;Hyperkalemia Presentation: 12/03 00:01 Chief complaint: Patient states: left ear bleeding. Coronavirus screen: At this time, ja4 the client does not indicate any symptoms associated with coronavirus-19. Ebola Screen: No symptoms or risks identified at this time. Initial Sepsis Screen: Does the patient meet any 2 criteria? No. Patient's initial sepsis screen is negative. Does the patient have a suspected source of infection? No. Patient's initial sepsis screen is negative. Risk Assessment: Do you want to hurt yourself or someone else? Patient reports no desire to harm self or others. Onset of symptoms was December 03, 2021. 00:01 Method Of Arrival: EMS ja4 00:01 Acuity: HEAVEN 3 ja4 Historical: - Allergies: 00:03 No Known Allergies; ja4 - Immunization history:: Adult Immunizations up to date. Screenin:05 Abuse screen: Denies threats or abuse. Nutritional screening: No deficits noted. ja4 Tuberculosis screening: No symptoms or risk factors identified. Fall Risk None identified. Assessment: 00:04 Reassessment:. General: Appears distressed, uncomfortable. Pain: Complains of pain in ja4 left ear Pain currently is 8 out of 10 on a pain scale. EENT: Pinna bleeding lac. 02:26 Reassessment: pt being dc'd back to shelter. charge nurse heather was reluctant to [facility] take pt due to blood pressure and wanted to speak to charge nurse. will send pt via ems back home per pt. pt refused to stay the night in the hospital at this time. Vital Signs: 00:01 BP 162 / 89; Pulse 69; Resp 14; Pulse Ox 100% ; Weight 84.37 kg; Height 5 ft. 9 in. ja4 (175.26 cm); Pain 8/10; 02:28 BP 201 / 160; Pulse 72; Resp 16; Pulse Ox 95% on R/A; ja4 02:32 BP 134 / 109; 4 00:01 Body Mass Index 27.47 (84.37 kg, 175.26 cm) [facility] ED Course: 00:00 Patient arrived in ED. mw2 00:01 Dakota Neal, RN is Primary Nurse. [facility] 00:03 Triage completed. [facility] 00:05 Bed in low position. Call light in reach. Side rails up X2. [facility] 00:05 No provider procedures requiring assistance completed. [facility] 00:17 Abelino Nuñez MD is Attending Physician. [facility] 02:05 Zeus Munoz DO is Referral Physician. [facility] 02:05 Heather Desai MD is Referral Physician. [facility] 03:24 No apparent distress. [facility] 03:24 IV discontinued, intact, bleeding controlled, No redness/swelling at site. Pressure ja4 dressing applied. Administered Medications: 01:55 Discontinued: NS 0.9% 500 ml IV at bolus once samm 01:21 Drug: NS 0.9% 500 ml Route: IV; Rate: bolus; Site: right antecubital; [facility] 02:13 Drug: Kayexalate (polystyrene) 45 grams Route: PO; 4 02:13 Drug: Ancef (cefazolin) 1 grams Route: IVPB; Site: right upper arm; 4 02:13 Drug: Lasix (furosemide) 60 mg Route: IVP; Site: right upper arm; [facility] 02:39 Drug: HydrALAZINE 25 mg Route: PO; 4 02:39 Drug: hydrALAZINE 10 mg Route: IVP; Site: right upper arm; [facility] 02:40 Not Given (Other Intervention Used): morphine 4 mg IVP once over 4 mins [facility] 02:40 Not Given (Other Intervention Used): Zofran (Ondansetron) 4 mg IVP once; over 2 minutes [facility] Medication: 00:05 VIS not applicable for this client. [facility] Outcome: 02:05 Discharge ordered by . [facility] 03:24 Discharged to shelter. Report called to juan carlos [facility] 03:24 Condition: stable 03:24 Discharge instructions given to patient, Instructed on discharge instructions, follow up and referral plans. medication usage, Demonstrated understanding of medications, Prescriptions given X 1. 03:26 Patient left the ED. [facility] Signatures: Abelino Nuñez MD MD cha [place], MyKena 2 Dakota Neal, RN RN ja4 Corrections: (The following items were deleted from the chart) 02:42 02:26 Reassessment: pt being dc'd back to shelter. charge nurse heather was reluctant toña to take pt due to blood pressure and wanted to speak to charge nurse. will send pt via ems back home per pt. pt refused to stay the night in the hospital at this time. toña
[2021-12-03] MEDS ORDERED: FUROSEMIDE 40 MG/4 ML VIAL ONE (02:12)
[2021-12-03] MEDS ORDERED: SOD POLYSTYREN SUL 15 GM/60 ML UCUP ONE (02:12)
[2021-12-03] MEDS ORDERED: FUROSEMIDE 20 MG/ 2ML VIAL ONE (02:12)
[2021-12-03] MEDS ORDERED: CEFAZOLIN SODIUM 1 GM/VIAL ONE (02:12)
[2021-12-03] MEDS ORDERED: HYDRALAZINE HCL 20 MG/ML VIAL ONE (02:45)
[2021-12-03] MEDS ORDERED: HYDRALAZINE HCL 25 MG TABLET ONE (02:45)
[2021-12-03 04:35] VITALS: O2SAT 95
[2021-12-03 04:37] VITALS: BP 134/109
--- NOTE | 2021-12-04 08:52 | CON ---
Date of Consultation: 12/03/2021 Chief Complaint: Left ear bleeding; status post left ear injury. History Of Present Illness: Patient presented to the emergency room on November 29, 2021, after falling and hitting the corner of his dresser thereby injuring and lacerating the left ear. He had suture repair performed in the emergency room on that date and then was discharged back to the skilled nursing. He presented again on 12/02/2021 with significant left ear bleeding that would not stop, thus I was consulted for further evaluation and management. Upon arrival to bedside, patient is in no acute distress, but he has moderate oozing from the left ear. He also reports moderate left ear otalgia, but denies hearing loss or drainage from the ear canal. Past Medical History: Significant for multiple medical comorbidities, please refer to his medical record, but patient currently is experiencing high blood pressure and he receives dialysis for end-stage renal disease. Allergies: NO KNOWN DRUG ALLERGIES. Medications: Refer to the medical record, numerous. Past Surgical History: Refer to the medical record. Review of Systems: Head: Negative for head trauma. Ears: Positive for left ear bleeding. Negative for hearing loss or ear canal drainage and positive for left ear pain. Nose: Negative for rhinorrhea or nasal congestion. Oral Cavity: Negative for sore throat, or swelling. Physical Examination: Vital Signs: Patient has elevated blood pressure 181/76, otherwise stable. Head: Atraumatic, normocephalic. Eyes: PERRLA/EOMI. Ears: Mild left ear swelling noted at the antihelix and the posterior auricle with evidence of granulation tissue where the suspected bleeding is coming from. Patient's article is sutured with what appears to be Prolene suture and I do not see any evidence of dehiscence. Nose: Moist intranasal mucosa. Midline septum. Oral Cavity: Moist oral cavity. Midline uvula. Procedure: Approximately 8-10 mL of 1% lidocaine without epinephrine was infiltrated at the area of granulation and along the lacerated edges. I removed the bleeding granulation tissue and then oversewed the laceration edges with 4-0 Prolene on a PS-2 needle and then cauterized bleeding with silver nitrate cautery sticks. I then placed a bolster dressing over the area of bleeding. The bolster consisted of Xeroform dressing and the bolster was sutured in place with 4-0 Ethilon on a PS-2 needle. A compressive dressing and head wrap were placed. Patient tolerated well. Diagnosis: Left ear bleeding without foreign body. Recommendations: Recommend Ancef or equivalent p.o. antibiotic. Keep bolster dressing intact and follow up in 5-7 days for bolster removal and re-examination in the outpatient setting. JARED/CARLOS Voice ID: [id number] Report ID: [id number] QUETA
== END 2021-12-03 03:26 | disposition home or self-care (01) ==
LOC: ER 23:50
DX: I12.0 Hypertensive chronic kidney disease with stage 5 chronic kidney disease or end stage renal disease (principal); N18.6 End stage renal disease; Z99.2 Dependence on renal dialysis; E87.5 Hyperkalemia
CPT/HCPCS: 85025; 36415; 85610; 80053; 96375; 96374; 99283; J0360; J1940 ×2; J7040; J0690

== ENCOUNTER 2021-12-07 09:50 | Emergency (ER) | payer OTHER ==
--- OUTSIDE RECORDS SUMMARY | 2021-12-07 09:58 | XMS REPORT | Continuity of Care Document ---
:1975 Author Organization [facility] t Address [address] [place] [address] Care Team Providers Name Role Phone UNKNOWN, REFFERING Primary Care Physician Unavailable ENRIQUE PATRICK Attending Clinician Unavailable GC_BAHC_Todd_J Attending Clinician Unavailable Mara Padron Attending Clinician [phone] Robert Mccarthy Attending Clinician [phone] BOB Attending Clinician Unavailable June Attending Clinician [phone] [email or web address]_G Attending Clinician Unavailable KHADAR CALHOUN Attending [...] Type Policy Number Effective Date Expiration Date S tiffany [facility] [id number] 2021 MEDICARE ADVANTAGE 00:00:00 [facility] [id number] 2019 2021 [facility] [place] 00:00:00 00:00:00 [facility] [place] - [id number] 2021 2021 [facility] - 00:00:00 00:00:00 [facility] (MEDICAID O) Problems Condition Condition Condition [...] Date Stop Date Source Natural father Unremarkable [facility] Natural sister Unremarkable [facility] Social History Social Habit Start Date Stop Date Quantity Comments Source [facility] of [facility]igarette [facility] use Tobacco use and 2021-09-25 2021-09-25 Smokeless tobacco [facility] exposure 00:00:00 00:00:00 non-user Alcohol intake 2019-02-24 2019-02-24 Ex-drinker [facility] 00:[facility]:00 (finding) Hospital Sex Assigned At [birth year] [facility] 00:[facility] Hospital Smoking Status Start Date [...] Yes calcium [facility] acetate 09-25 [facility] 16:44: osphate 667 MG 48 binders) capsule [...] 1{capsu 1 capsule. [facility] rol 09-25 le} [facility] (Vitamin 16:44: D-2) 1.25 48 MG (93734 UT) capsule ferrous 0 Yes Q12H every [...] Yes QD 1 (one) UT 40 MG - time each Health tablet 16:44: day. 48 Patiromer Yes Veltassa [facility] Sorbitex 09-25 8.4 gram Health Calcium 16:44: oral (Veltassa) 48 powder 8.4 g pack packet one on non dialysis days tue, thur, sat sertraline Yes QD 1 (one) [facility] (Zoloft) 09-25 time each Health 100 MG 16:44: day. tablet 48 Lokelma 5 g 2020-03 Yes [facility] packet 0-11 Health 00:00: 00 omeprazole 2018-03 Yes 20mg QD Take 20 mg M ethodi (PriLOSEC) 1-[address] 20 MG 15:53: daily. Hospita capsule 19 l polyethylen 2018-03 Yes 17g QD Take 17 g M ethodi e glycol 1-[address] (MIRALAX) 15:53: daily. Hospit a 17 gram 19 l packet amino 2018-03 Yes 30mL Q.76987466 Take 30 mL [facility] acids/prote 1-30 [id number] by mouth [address] in 15:53: 3D (three) Hospita hydr/fiber 19 times a l (PRO-STAT day. RENAL CARE ORAL) senna 2018-03 Yes 2{tbl} Q12H Take 2 [facility] (SENOKOT) 1-[address] 8.6 mg 15:53: mouth Hospita tablet 19 every 12 l (twelve) hours. traMADol 2018-03 Yes 18183 50mg Q6H Take 50 mg Me thodi [...] for l sleep. albuterol 2018-03 Yes 2.5mg Q.64479086 Take 2.5 [facility] sulfate 1-[id number] (PROVENTIL) 15:53: 3D nebulizati [...] OPHT) day. 0.4% calcium 2018-03 Yes 2001mg Q.24421953 Take 2,001 [facility] acetate 1-[id number] (PHOSLO) 15:53: 3D mouth 3 Hospit a 667 mg 19 (three) l capsule times a day with meals. Give 15 minutes before meals clonIDINE 2018-03 Yes .2mg Q.05588459 Take 0.2 [facility] HCl 1-[id number] (CATAPRES) 15:53: 3D mouth [...] needed for pain LIDOCAINE 2018-03 Yes 1{appli Q.40682873 Apply 1 [facility] HCL TOP 1-30 cation} [id number] applicatio [facility] 15:53: 3W n Hospita 19 [...] 19 l packet amino 2018-03 Yes 30mL Q.94805399 Take 30 mL [facility] acids/prote 1-30 [id number] by mouth [address] in 15:53: 3D (three) Hospita hydr/fiber 19 times a l (PRO-STAT day. RENAL CARE ORAL) senna 2018-03 Yes 2{tbl} Q12H Take 2 [facility] (SENOKOT) 1-[address] 8.6 mg 15:53: mouth Hospita tablet 19 every 12 l (twelve) hours. traMADol 2018-03 Yes 13496 50mg Q6H Take 50 mg Me thodi [...] for l sleep. albuterol 2018-03 Yes 2.5mg Q.48433047 Take 2.5 [facility] sulfate 1-[id number] (PROVENTIL) 15:53: 3D nebulizati [...] OPHT) day. 0.4% calcium 2018-03 Yes 2001mg Q.07217706 Take 2,001 [facility] acetate 1-[id number] (PHOSLO) 15:53: 3D mouth 3 Hospit a 667 mg 19 (three) l capsule times a day with meals. Give 15 minutes before meals clonIDINE 2018-03 Yes .2mg Q.93139508 Take 0.2 [facility] HCl 1-[address] (CATAPRES) 15:53: 3D mouth [...] needed for pain LIDOCAINE 2018-03 Yes 1{appli Q.92350074 Apply 1 [facility] HCL TOP 1-30 cation} [id number] applicatio st 15:53: 3W n Hospita 19 [...] 19 l packet amino 2018-03 Yes 30mL Q.40048964 Take 30 mL [facility] acids/prote 1-30 8477017033 [address] mouth [address] in 15:53: 3D (three) Hospita hydr/fiber 19 times a l (PRO-STAT day. RENAL CARE ORAL) senna 2018-03 Yes 2{tbl} Q12H Take 2 [facility] (SENOKOT) 1-[address] 8.6 mg 15:53: mouth Hospita tablet 19 every 12 l (twelve) hours. traMADol 2018-03 Yes [id number] 50mg Q6H Take 50 mg Me thodi [...] as Hospita 19 needed for l sleep. melatonin 3 2018-03 Yes 3mg QD Take 3 mg M ethodi mg tablet 1-[address] 15:53: nightly as Hospita 19 needed for l sleep. albuterol 2018-03 Yes 2.5mg Q.54313921 Take 2.5 [facility] sulfate 1-[id number] (PROVENTIL) 15:53: 3D nebulizati [...] (ARTIFICIAL times a TEARS OPHT) day. 0.4% albuterol 2018-03 Yes 2.5mg Q.87441812 Take 2.5 [facility] sulfate 1-[id number] (PROVENTIL) 15:53: 3D nebulizati Hospita 2.5 mg/0.5 19 on 3 l mL solution (three) for times a nebulizatio day as n needed (congestio n/cough). calcium 2018-03 Yes 2001mg Q.77896085 Take 2,001 [facility] acetate 1-[id number] (PHOSLO) 15:53: 3D mouth 3 Hospit a 667 mg 19 (three) l capsule times a day with meals. Give 15 minutes before meals clonIDINE 2018-03 Yes .2mg Q.59557988 Take 0.2 [facility] HCl 1-[address] (CATAPRES) 15:53: 3D mouth [...] needed for pain LIDOCAINE 2018-03 Yes 1{appli Q.86797159 Apply 1 [facility] HCL TOP 1-30 cation} [id number] applicatio st 15:53: 3W n Hospita 19 [...] 19 l packet amino 2018-03 Yes 30mL Q.89372579 Take 30 mL [facility] acids/prote 1-30 0299489641 by mouth [address] in 15:53: 3D (three) Hospita hydr/fiber 19 times a l (PRO-STAT day. RENAL CARE ORAL) albuterol 2018-03 Yes 2.5mg Q.70249928 Take 2.5 [facility] sulfate 1-[id number] (PROVENTIL) 15:53: 3D nebulizati [...] OPHT) day. 0.4% calcium 2018-03 Yes 2001mg Q.35515837 Take 2,001 [facility] acetate 1-[id number] (PHOSLO) 15:53: 3D mouth 3 Hospit a 667 mg 19 (three) l capsule times a day with meals. Give 15 minutes before meals clonIDINE 2018-03 Yes .2mg Q.52435172 Take 0.2 [facility] HCl 1-[id number] (CATAPRES) 15:53: 3D mouth [...] needed for pain LIDOCAINE 2018-03 Yes 1{appli Q.49965609 Apply 1 [facility] HCL TOP 1-30 cation} [id number] applicatio st 15:53: 3W n Hospita 19 [...] 19 l packet amino 2018-03 Yes 30mL Q.44082637 Take 30 mL [facility] acids/prote 1-30 [id number] by mouth [address] in 15:53: 3D (three) Hospita hydr/fiber 19 times a l (PRO-STAT day. RENAL CARE ORAL) senna 2018-03 Yes 2{tbl} Q12H Take 2 [facility] (SENOKOT) 1-[address] 8.6 mg 15:53: mouth Hospita tablet 19 every 12 l (twelve) hours. traMADol 2018-03 Yes [id number] 50mg Q6H Take 50 mg Me thodi [...] as Hospita 19 needed for l sleep. aspirin 325 2018-03 Yes 325mg QD Take 325 M ethodi MG tablet 1-[address] 15:53: mouth Hospita 19 daily. l senna 2018-03 Yes 2{tbl} Q12H Take 2 [facility] (SENOKOT) 1-[address] 8.6 mg 15:53: mouth Hospita tablet 19 every 12 l (twelve) hours. traMADol 2018-03 Yes 24262 50mg Q6H Take 50 mg Me thodi [...] tablet 15:53: daily. Hospit a 19 l amLODIPine 2018-03 Yes 10mg QD Take 10 mg M ethodi (NORVASC) 1-[address] 10 mg 15:53: daily. Hospita tablet 19 l lanolin/min 2018-03 Yes 1[drp] Q.5D Apply 1 M ethodi eral 1-[address] oil/petrola 15:53: eye 2 Hospi ta timo 19 (two) l (ARTIFICIAL times a TEARS OPHT) day. 0.4% calcium 2018-03 Yes 2001mg Q.95312592 Take 2,001 [facility] acetate 1-[address] (PHOSLO) 15:53: 3D mouth 3 Hospit a 667 mg 19 (three) l capsule times a day with meals. Give 15 minutes before meals clonIDINE 2018-03 Yes .2mg Q.76019816 Take 0.2 [facility] HCl 1-[id number] (CATAPRES) 15:53: 3D mouth [...] needed for pain LIDOCAINE 2018-03 Yes 1{appli Q.94883363 Apply 1 [facility] HCL TOP 1-30 cation} [id number] applicatio [facility] 15:53: 3W n Hospita 19 topically l 3 (three) times a week. 3% Gel, Apply to right hemodialys is access every day shift every Mon, Wed,, Fri. For pain prior to dialysis lisinopril 2018-03 Yes 40mg QD Take 40 mg M ethodi (PRINIVIL) 1-[address] 40 mg 15:53: daily. Hospita tablet 19 Hold if l SBP<100, DBP<60 traMADol 2018-03 Yes 50mg Take 50 mg [...] Crea 1-21 ion of cation} applicatio Abbi kes 22:13: local n Medical 44 anesthesia [...] 44 daily. Center calcium 2018-03 Yes 667mg Q.82731192 Take [address] acetate 1-21 [id number] [facility] (PHOSLO) 22:13: 3D mouth 3 Medica l 667 mg 44 (three) Center capsule times daily. cloNIDine 2018-03 Yes hypertensio .2mg Q.22181969 Take 0.[address] HCl 1-21 n [id number] mg [facility] (CATAPRES) 22:13: 3D mouth [...] Center gram/dose powder amino 2018-03 Yes 30mL Q.78712295 Take [address] acids-prote 1-21 5911401349 mLs [facility] in 22:13: 3D mouth [...] [address] sulfate 1-21 mg by Hum (ZINCATE) 22:13: mouth Medical 220 (50) mg 44 daily. Center capsule cetirizine 2018-03 Yes 10mg QD Take [address] (ZYRTEC) 10 1-21 by mouth [facility] MG tablet 22:13: daily. Medica l 44 Center lidocaine 3 2018-03 Yes administrat 1{appli Apply [address] % Crea 1-21 ion of cation} applicatio [facility] 22:13: local n Medical 44 anesthesia topically. [...] 44 daily. Center calcium 2018-03 Yes 667mg Q.51368412 Take [address] acetate 1-21 [id number] mg [facility] (PHOSLO) 22:13: 3D mouth 3 Medica l 667 mg 44 (three) Center capsule times daily. cloNIDine 2018-03 Yes hypertensio .2mg Q.49122993 Take 0.[address] HCl 1-21 n 6503500055 mg by [facility] (CATAPRES) 22:13: 3D mouth [...] Center gram/dose powder amino 2018-03 Yes 30mL Q.41418304 Take [address] acids-prote 1-21 2049910943 mLs [facility] in 22:13: 3D mouth [...] 44 daily. Center calcium 2018-03 Yes 667mg Q.27163389 Take [address] acetate 1-21 [id number] mg [facility] (PHOSLO) 22:13: 3D mouth 3 Medica l 667 mg 44 (three) Center capsule times daily. cloNIDine 2018-03 Yes hypertensio .2mg Q.44621972 Take 0.[address] HCl 1-21 n [id number] mg [facility] (CATAPRES) 22:13: 3D mouth [...] Center gram/dose powder amino 2018-03 Yes 30mL Q.43341091 Take [address] acids-prote 1-21 6412154072 mLs [facility] in 22:13: 3D mouth [...] Crea 1-21 ion of cation} applicatio Abbi kes 22:13: local n Medical 44 anesthesia [...] 44 daily. Center calcium 2018-03 Yes 667mg Q.81807045 Take [address] acetate 1-21 5809706061 mg [facility] (PHOSLO) 22:13: 3D mouth 3 Medica l 667 mg 44 (three) Center capsule times daily. cloNIDine 2018-03 Yes hypertensio .2mg Q.36746727 Take 0.[address] HCl 1-21 n [id number] mg [facility] (CATAPRES) 22:13: 3D mouth [...] Center gram/dose powder amino 2018-03 Yes 30mL Q.38853264 Take [address] acids-prote 1-21 4711687763 mLs by [facility] in 22:13: 3D mouth [...] 44 daily. Center calcium 2018-03 Yes 667mg Q.46790102 Take [address] acetate 1-21 [id number] mg [facility] (PHOSLO) 22:13: 3D mouth 3 Medica l 667 mg 44 (three) Center capsule times daily. cloNIDine 2018-03 Yes hypertensio .2mg Q.11783300 Take 0.[address] HCl 1-21 n [id number] mg [facility] (CATAPRES) 22:13: 3D mouth [...] Center gram/dose powder amino 2018-03 Yes 30mL Q.38803193 Take [address] acids-prote 1-21 9371748470 mLs by [facility] in 22:13: 3D mouth [...] % Crea 1-21 ion of cation} applicatio [facility] 22:13: local n Medical 44 anesthesia topically. [...] Comments Source Height 2019-02-20 00:00:00 68 [in_i] [facility] 2018-11-13 00:00:00 68 [in_i] [facility] 2018-10-25 00:00:00 68 [in_i] [facility] 2018-09-04 00:00:00 68 [in_i] [facility] Procedures This patient has no known procedures. Plan of Care Planned Activity Planned Date Details Comments Source Future Scheduled 2021-11-29 HEPATITIS B VACCINES Met [facility] Test 05:50:55 (1 of 3 - 3-dose series) [code = HEPATITIS B VACCINES (1 of 3 - 3-dose series)] Future Scheduled 2021-11-29 COVID-19 VACCINE (#1) [facility] Test 05:50:55 [code = COVID-19 VACCINE (#1)] Future Scheduled 2021-11-29 Pneumococcal Vaccine: [facility] Hospital Test 05:50:55 Pediatrics (0 to 5 Years) and At-Risk Patients (6 to 64 Years) (1 - PCV) [code = Pneumococcal Vaccine: Pediatrics (0 to 5 Years) and At-Risk Patients (6 to 64 Years) (1 - PCV)] Future Scheduled 2021-11-29 Hepatitis C screening [facility] Hospital Test 05:50:55 (procedure) [code = 620039057] Future Scheduled 2021-11-29 COLONOSCOPY SCREENING [facility] Test 05:50:55 [code = COLONOSCOPY SCREENING] Future Scheduled 2021-11-29 INFLUENZA VACCINE Method [facility] Hospital Test 05:50:55 [code = INFLUENZA VACCINE] Future Scheduled 2021-11-29 HEPATITIS B VACCINES Met [facility] Test 05:50:55 (1 of 3 - 3-dose series) [code = HEPATITIS B VACCINES (1 of 3 - 3-dose series)] Future Scheduled 2021-11-29 COVID-19 VACCINE (#1) [facility] Test 05:50:55 [code = COVID-19 VACCINE (#1)] Future Scheduled 2021-11-29 Pneumococcal Vaccine: [facility] Test 05:50:55 Pediatrics (0 to 5 Years) and At-Risk Patients (6 to 64 Years) (1 - PCV) [code = Pneumococcal Vaccine: Pediatrics (0 to 5 Years) and At-Risk Patients (6 to 64 Years) (1 - PCV)] Future Scheduled 2021-11-29 Hepatitis C screening [facility] Hospital Test 05:50:55 (procedure) [code = 483461754] Future Scheduled 2021-11-29 COLONOSCOPY SCREENING [facility] Test 05:50:55 [code = COLONOSCOPY SCREENING] Future Scheduled 2021-11-29 INFLUENZA VACCINE Method [facility] Hospital Test 05:50:55 [code = INFLUENZA VACCINE] Future Scheduled 2021-11-29 HEPATITIS B VACCINES Met [facility] Test 05:50:55 (1 of 3 - 3-dose series) [code = HEPATITIS B VACCINES (1 of 3 - 3-dose series)] Future Scheduled 2021-11-29 COVID-19 VACCINE (#1) [facility] Test 05:50:55 [code = COVID-19 VACCINE (#1)] Future Scheduled 2021-11-29 Pneumococcal Vaccine: [facility] Test 05:50:55 Pediatrics (0 to 5 Years) and At-Risk Patients (6 to 64 Years) (1 - PCV) [code = Pneumococcal Vaccine: Pediatrics (0 to 5 Years) and At-Risk Patients (6 to 64 Years) (1 - PCV)] Future Scheduled 2021-11-29 Hepatitis C screening [facility] Test 05:50:55 (procedure) [code = 338275709] Future Scheduled 2021-11-29 COLONOSCOPY SCREENING [facility] Test 05:50:55 [code = COLONOSCOPY SCREENING] Future Scheduled 2021-11-29 INFLUENZA VACCINE Method [facility] Hospital Test 05:50:55 [code = INFLUENZA VACCINE] Future Scheduled 2021-11-29 HEPATITIS B VACCINES Met [facility] Test 05:50:55 (1 of 3 - 3-dose series) [code = HEPATITIS B VACCINES (1 of 3 - 3-dose series)] Future Scheduled 2021-11-29 COVID-19 VACCINE (#1) [facility] Test 05:50:55 [code = COVID-19 VACCINE (#1)] Future Scheduled 2021-11-29 Pneumococcal Vaccine: [facility] Test 05:50:55 Pediatrics (0 to 5 Years) and At-Risk Patients (6 to 64 Years) (1 - PCV) [code = Pneumococcal Vaccine: Pediatrics (0 to 5 Years) and At-Risk Patients (6 to 64 Years) (1 - PCV)] Future Scheduled 2021-11-29 Hepatitis C screening [facility] Test 05:50:55 (procedure) [code = 995289459] Future Scheduled 2021-11-29 COLONOSCOPY SCREENING [facility] Test 05:50:55 [code = COLONOSCOPY SCREENING] Future Scheduled 2021-11-29 INFLUENZA VACCINE Method [facility] Test 05:50:55 [code = INFLUENZA VACCINE] [...] Future Scheduled 2021-11-16 HEPATITIS B VACCINES Met [facility] Test 04:27:12 (1 of 3 - 3-dose series) [code = HEPATITIS B VACCINES (1 of 3 - 3-dose series)] Future Scheduled 2021-11-16 COVID-19 VACCINE (#1) [facility] Test 04:27:12 [code = COVID-19 VACCINE (#1)] Future Scheduled 2021-11-16 Pneumococcal Vaccine: [facility] Hospital Test 04:27:12 Pediatrics (0 to 5 Years) and At-Risk Patients (6 to 64 Years) (1 - PCV) [code = Pneumococcal Vaccine: Pediatrics (0 to 5 Years) and At-Risk Patients (6 to 64 Years) (1 - PCV)] Future Scheduled 2021-11-16 Hepatitis C screening [facility] Hospital Test 04:27:12 (procedure) [code = 075949891] Future Scheduled 2021-11-16 INFLUENZA VACCINE Method [facility] Hospital Test 04:27:12 [code = INFLUENZA VACCINE] [...] DEPRESSION SCREENING (12+)] Diagnostic Test 2019-02-21 17-hydroxyprogesterone [facility] Medical Pending 00:00:00 , quantitative, serum Group [...] [facility] s Test 00:00:00 (procedure) [code = [facility] 27096414] Future Scheduled [address] [facility] Test 00:00:00 (procedure) [code = [facility] 14140122] Future Scheduled [address] [facility] Test 00:00:00 (procedure) [code = [facility] 04375552] Future Scheduled [address] [facility] Test 00:00:00 (procedure) [code = [facility] 80801375] Future Scheduled [address] [facility] Test 00:00:00 (procedure) [code = Medical Center 62774425] Future Scheduled 1994 DTAP/TDAP/TD VACCINES CH I [...] C enter Colonography (combo)] Future Scheduled [address] [facility] Test 00:00:00 (combo) [code = CT Medical C enter Colonography (combo)] Future Scheduled [address] [facility] Test 00:[facility] malignant neoplasm of Medica l Center colon (procedure) [code = 310662989] Future Scheduled [address] [facility] Test 00:00:00 malignant neoplasm of Medica l Center colon (procedure) [code = 529016622] Future Scheduled [address] [facility] Test 00:00:00 malignant neoplasm of Medica l Center colon (procedure) [code = 068335706] Future Scheduled [address] [facility] Test 00:00:00 malignant neoplasm of Medica l Center colon (procedure) [code = 527193885] Future Scheduled [address] [facility] Test 00:00:00 malignant neoplasm of Medica l Center colon (procedure) [code = 067685926] Future Scheduled 1975 Sigmoidoscopy [facility]] Medical Dennis r Future Scheduled [address] [facility] Test 00:00:00 malignant neoplasm of Medica l Center colon (procedure) [code = 004637311] Future Scheduled [address] [facility] Test 00:00:00 malignant neoplasm of Medica l Center colon (procedure) [code = 659051810] Future Scheduled [address] [facility] Test 00:00:00 malignant neoplasm of Medica l Center colon (procedure) [code = 533994699] Future Scheduled 1975 Sigmoidoscopy [facility]] Medical Sabinee r Future Scheduled [address] [facility] Test 00:00:00 (combo) [code = CT Medical C enter Colonography (combo)] Future Scheduled [address] [facility] Test 00:00:00 malignant neoplasm of Medica l Center colon (procedure) [code = 970853237] Future Scheduled [address] [facility] Test 00:00:00 malignant neoplasm of Medica l Center colon (procedure) [code = 243637234] Future Scheduled [address] [facility] Test 00:00:00 malignant neoplasm of Medica l Center colon (procedure) [code = 887284337] Future Scheduled [address] [facility] Test 00:00:00 malignant neoplasm of Medica l Center colon (procedure) [code = 784605324] Future Scheduled 1975 Sigmoidoscopy [facility]] Medical Sabinee r Future Scheduled [address] [facility] Test 00:00:00 (combo) [code = CT Medical C enter Colonography (combo)] Future Scheduled [address] [facility] Test 00:00:00 malignant neoplasm of Medica l Center colon (procedure) [code = 118895751] Future Scheduled [address] [facility] Test 00:00:00 malignant neoplasm of Medica l Center colon (procedure) [code = 255020418] Future Scheduled [address] [facility] Test 00:00:00 malignant neoplasm of Medica l Center colon (procedure) [code = 068101998] Future Scheduled [address] [facility] Test 00:00:00 malignant neoplasm of Medica l Center colon (procedure) [code = 946542963] Future Scheduled 1975 Sigmoidoscopy [facility]] Medical Dennis r Future Scheduled [address] [facility] Test 00:00:00 (combo) [code = CT Medical C enter Colonography (combo)] Future Scheduled [address] [facility] Test 00:00:00 malignant neoplasm of Medica l Center colon (procedure) [code = 907799277] Future Scheduled [address] [facility] Test 00:00:00 malignant neoplasm of Medica l Center colon (procedure) [code = 848102978] Future Scheduled [address] [facility] Test 00:00:00 malignant neoplasm of Medica l Center colon (procedure) [code = 247914920] Future Scheduled [address] [facility] Test 00:00:00 malignant neoplasm of Medica l Center colon (procedure) [code = 451930745] Future Scheduled 1975 Sigmoidoscopy [facility]] Medical Dennis heaton Encounters Start End Encounter Admission Attending Care Care Encounter Source Date/Time Date/Time Type Type Clinicians Facility Department ID 2021-11-19 Outpatient [facility] [id number] [place] 10:07:20 [id number] [facility] 2021-10-16 Outpatient [facility] [id number] [place] 14:38:07 ENRIQUE [id number] [facility] 2021-09-25 Outpatient [facility] [id number] [place] 09:31:27 ENRIQUE [id number] [facility] 2021-09-17 Outpatient [facility] [id number] [place] 10:08:53 ENRIQUE [id number] [facility] 2021-09-04 Outpatient [facility] [id number] [place] 12:19:20 ENRIQUE [id number] [facility] 2015-12-08 Inpatient [facility] [id number] [facility]. 18:48:00 [facility] 2021-11-24 2021-11-24 Outpatient [facility]_Tod PRIV PRIV [id number] [facility] 00:00:00 00:00:00 d_J [id number] Medica l 2021-11-23 2021-11-23 Outpatient Vito, PRIV PRIV [id number] 00:00:00 00:00:00 Mara [id number] 2021-11-20 2021-11-20 Outpatient GC_[facility]_Tod PRIV PRIV [id number] [facility] 00:00:00 00:00:00 d_J [id number] Medica l 2021-11-20 2021-11-20 Outpatient Vito, PRIV PRIV [id number] 00:00:00 00:00:00 Mara [id number] 2021-11-16 2021-11-16 Outpatient GC_[facility]_Tod PRIV PRIV [id number] [facility] 00:00:00 00:00:00 d_J [id number] Medica l 2021-11-08 2021-11-08 Outpatient GC_[facility]_Tod PRIV PRIV [id number] [facility] 00:00:00 00:00:00 d_J [id number] Medica l 2021-11-08 2021-11-08 Outpatient Fabio, PRIV PRIV [id number] 00:00:00 00:00:00 Robert Mojica [id number] 2021-11-02 2021-11-02 Outpatient GC_[facility]_Tod PRIV PRIV [id number] [facility] 00:00:00 00:00:00 d_J [id number] Medica l 2021-11-02 2021-11-02 Outpatient Vito, PRIV PRIV [id number] 00:00:00 00:00:00 Mara [id number] 2021-10-28 2021-10-28 Outpatient GC_[facility]_Tod PRIV PRIV [id number] [facility] 00:00:00 00:00:00 d_J [id number] Medica l 2021-10-20 2021-10-20 Outpatient GC_BA[facility]_Tod PRIV PRIV [id number] [facility] 10:42:00 10:42:00 d_J [id number] Medica l 2021-10-19 2021-10-19 Outpatient GC_BAHC_Tod PRIV PRIV [id number] [facility] 07:48:00 07:48:00 d_J [id number] Medica l 2021-10-19 2021-10-19 Outpatient Vito, PRIV PRIV [id number] e-1 00:00:00 00:00:00 Mara 12e-11ed-a [id number] 2021-10-12 2021-10-12 Outpatient [facility]_Tod PRIV PRIV 205 [id number] [facility] 03:53:00 03:53:00 d_J [id number] Medica l 2021-10-12 2021-10-12 Outpatient Vito, PRIV PRIV [id number] 2-0 00:00:00 00:00:00 Mara af6-11ed-9 [id number] 2021-10-09 2021-10-09 [facility] [facility] [id number] [facility] 11[facility]56:00 11:56:00 HANA 0712 da [facility] Program 2021-10-05 2021-10-05 Outpatient GC_BA[facility]_Tod PRIV PRIV 205 [id number] [facility] 11:01:00 11:01:00 d_J [id number] Medica l 2021-10-04 2021-10-04 Outpatient GC_BA[facility]_Tod PRIV PRIV 205 [id number] [facility] 09:10:00 09:10:00 d_J [id number] Medica l 2021-10-03 2021-10-03 Outpatient GC_[facility]_Tod PRIV PRIV 205 [id number] [facility] 02:45:00 02:45:00 d_J [id number] Medica l 2021-10-02 2021-10-02 Outpatient [facility]_Tod PRIV PRIV 205 [id number] [facility] 05:08:00 05:08:00 d_J [id number] Medica l 2021-10-02 2021-10-02 Outpatient Vito, PRIV PRIV [id number] c-f 00:00:00 00:00:00 Mara v41-09rt-[id number] 2021-09-26 2021-09-26 Outpatient [facility]_Tod PRIV PRIV 205 [id number] [facility] 09:13:00 09:13:00 d_J [id number] Medica l 2021-09-26 2021-09-26 Outpatient Vito, PRIV PRIV [id number] 2-f 00:00:00 00:00:00 Mara dec-11ec-8 [id number] 2021-09-25 2021-09-25 Office Jay [facility] [id number] [place] 11:15:00 12:43:[address] [facility] [id number] Benny RAMSEY 1 [id number] 2021-09-21 2021-09-21 Outpatient [facility]_Tod PRIV PRIV 205 [id number] [facility] 04:44:00 04:44:00 d_J [id number] Medica l 2021-09-17 2021-09-17 Outpatient GC_[facility]_Tod PRIV PRIV 205 [id number] [facility] 11:11:00 11:11:00 d_J [id number] Medica l 2021-09-13 2021-09-13 Outpatient [facility]_Tod PRIV PRIV 205 [id number] [facility] 10:39:00 10:39:00 d_J [id number] Medica l 2021-09-13 2021-09-13 Outpatient Fabio, PRIV PRIV [id number] c76-f 00:00:00 00:00:00 Robert Mojica 3ee-11ec-8 [id number] 2021-09-10 2021-09-10 Outpatient [facility]_Tod PRIV PRIV 205 [id number] [facility] 03:35:00 03:35:00 d_J [id number] Medica l 2021-09-04 2021-09-04 Outpatient [facility]_Tod PRIV PRIV 205 [id number] [facility] 07:32:00 07:32:00 d_J [id number] Medica l 2021-09-04 2021-09-04 Outpatient Vito, PRIV PRIV [id number] 2-e 00:00:00 00:00:00 Mara k2e-20pv-0 [id number] 2021-08-31 2021-08-31 Outpatient [facility]_Tod PRIV PRIV 205 [id number] [facility] 02:07:00 02:07:00 d_J [id number] Medica l 2021-08-23 2021-08-23 Outpatient [facility]_Tod PRIV PRIV 205 [id number] [facility] 11:05:00 11:05:00 d_J [id number] Medica l 2021-08-22 2021-08-22 Outpatient GC_BA[facility]_Tod PRIV PRIV 205 [id number] [facility] 07:00:00 07:00:00 d_J [id number] Medica l 2021-08-22 2021-08-22 Outpatient Vito, PRIV PRIV [id number] 8-e 00:00:00 00:00:00 Mara 7f7-54iw-j [id number] 2021-08-19 2021-08-19 Outpatient [facility]_Tod PRIV PRIV 205 [id number] [facility] 10:45:00 10:45:00 d_J [id number] Medica l 2021-08-14 2021-08-14 Outpatient GC_BA[facility]_Tod PRIV PRIV 205 [id number] [facility] 03:16:00 03:16:00 d_J [id number] Medica l 2021-08-14 2021-08-14 Outpatient Vito, PRIV PRIV [id number] 4-d 00:00:00 00:00:00 Mara 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 [id number] 2021-08-10 2021-08-10 Outpatient [facility]_Tod PRIV PRIV 205 [id number] [facility] 01:10:00 01:10:00 d_J [id number] Medica l 2021-08-10 2021-08-10 Outpatient Vito, PRIV PRIV [id number] e-d 00:00:00 00:00:00 Mara q7q-06kx-e [id number] 2021-08-08 2021-08-08 Outpatient [facility]_Tod PRIV PRIV 205 [id number] [facility] 10:53:00 10:53:00 d_J [id number] Medica l 2021-08-04 2021-08-04 Outpatient GC_BA[facility]_Tod PRIV PRIV 205 [id number] [facility] 10:45:00 10:45:00 d_J [id number] Medica l 2021-07-31 2021-07-31 Outpatient GC_[facility]_Tod PRIV PRIV 205 [id number] [facility] 07:56:00 07:56:00 d_J [id number] Medica l 2021-07-31 2021-07-31 Outpatient Vito, PRIV PRIV [id number] 4-d 00:00:00 00:00:00 Mara 159-11ec-9 [id number] 2021-07-27 2021-07-27 Outpatient [facility]_Tod PRIV PRIV 205 [id number] [facility] 08:30:00 08:30:00 d_J [id number] Medica l 2021-07-27 2021-07-27 Outpatient Vito, PRIV PRIV [id number] 0-c 00:00:00 00:00:00 Mara z16-99uo-f [id number] 2021-07-19 2021-07-19 Outpatient [facility]_Tod PRIV PRIV 205 [id number] [facility] 08:26:00 08:26:00 d_J [id number] Medica l 2021-07-19 2021-07-19 Outpatient Fabio, PRIV PRIV [id number] 00:00:00 00:00:00 Robertdenise Macedone 7bc-11ec-a [id number] 2021-07-19 2021-07-19 Outpatient Fabio, PRIV PRIV [id number] [id number] 00:00:00 00:00:00 Robert Yunior 1fa-11ed-a [id number] 2021-07-13 2021-07-13 Outpatient [facility]_Tod PRIV PRIV 205 [id number] [facility] 02:12:00 02:12:00 d_J [id number] Medica l 2021-07-12 2021-07-12 Outpatient GC_BA[facility]_Tod PRIV PRIV 205 [id number] [facility] 05:07:00 05:07:00 d_Gume [id number] Medica l 2021-07-12 2021-07-[address], PRIV PRIV [id number] c-b 00:00:00 00:00:00 June [id number]-58qo-q [id number] 2021-07-12 2021-07-[address], PRIV PRIV [id number] a-f 00:00:00 00:00:00 June ed0-11ec-8 [id number] 2021-07-11 2021-07-11 Outpatient [facility]_Tod PRIV PRIV 205 [id number] [facility] 10:53:00 10:53:00 dAddis [id number] Medica l 2021-07-06 2021-07-06 Outpatient GC_BA[facility]_Spa PRIV PRIV 205 [id number] [facility] 05:28:00 05:28:00 Portillo [id number] Medica l 2019-02-20 2019-02-20 [facility] [place] - [id number] [place] 00:00:00 00:00:00 Christo Collins Medical MD: [address] [place] [address], [place] [address] , Ph. 2018-11-13 2018-11-13 [facility] [place] - [id number] [place] 00:00:00 00:00:00 Christo Collins MD: [address] [facility] [address], [place] [address] , Ph. 2018-10-25 2018-10-25 [facility] [place] - [id number] [place] 00:00:00 00:00:00 Christo Collins MD: [address] [place] [address] [address], [place] [address] , Ph. 2018-09-04 2018-09-04 [facility] [place] [facility] [id number] [facility] Celestino Singh Medical Medical MD: [address] [place] [address], Family [address], [place] [address] , Ph. 2017-09-07 2017-09-08 Inpatient Christiano [facility] [id number] [facility] 15:44[facility] 2017-09-01 2017-09-04 Inpatient KHADAR [facility]I [facility] [place] [id number] [facility] 20:55:00 18:24:00 [facility] Results Test Description Test Time Test Comments Results Result Comments Source HEPATITIS B SURFACE ANTIGEN 2019-02-18 18:21:00 Test Item Value Reference Range Interpretation Comme nts HEPATITIS B SURFACE ANTIGEN (2) (BEAKER) (test code = Nonreactive Nonreactive 2585) ANG, THROMBECTOMY, A-V [id number] 13:26:00Reason for exam:- >nonfunctioning fistulaAnesthesia:->moderateFINAL REPORT DIALYSIS [...] MDReport Verified Date/Time: 02/18/2019 13:26:57 Reading Location: [facility] Radiology Reading Room [id number] 05:52:00 Test Item Value Reference Range Interpretation Comments MAGNESIUM (BEAKER) (test code = 2.0 mg/dL 1.5-3.0 627) BASIC METABOLIC [id number] 05:51:00 Test Item Value Reference Range Interpretation [...] PATIEN TS. CBC W/PLT COUNT & AUTO [id number] 05:37:00 Test Item Value Reference Range Interpretation [...] = 2801) RAD, CHEST, 1 VIEW, NON [id number] 09:21:00Reason for exam:- >pneumoniaShould this be performed at the bedside?->YesFINAL REPORT TECHNIQUE: Frontal view of the chest. INDICATION: pneumonia COMPARISON:Prior day. IMPRESSION:Lines and hardware: Stable.Heart and mediastinum: Stable.Lungs and pleura:Probable scattered atelectasis. No focal airspace consolidation. Central coronary venous congestion.No pleural effusion. No pneumothorax.Soft tissues and bones: No acute abnormality. Signed: Rupinder Perez MDReport Verified Date/Time: 02/17/2019 09:21:38 Reading Location: [facility] Radiology Reading Room COMPREHENSIVE METABOLIC [id number] 06:48:00 Test Item Value Reference Range Interpretation [...] GFR I S NOT APPLICABLE FOR DIALYSIS PATIQUITA TS. [id number] 06:30:00 Test Item Value Reference Range Interpretation Comments MAGNESIUM (BEAKER) (test code = 2.0 mg/dL 1.5-3.0 627) TROPONIN [id number] 06:27:00 Test Item Value Reference Range Interpretation [...] = 2801) RAD, CHEST, 1 VIEW, NON [id number] 00:02:00Reason for exam:- >PNEUMONIAShould this be performed [...] of mild volume overload. Signed: Kristian Garcia MDReport Verified Date/Time: 02/17/2019 00:02:21 Reading Location: [address] Consult Reading Room TROPONIN [id number] 19:17:00 Test Item Value Reference Range Interpretation [...] acute neurological disease, and persistent tachyarrhythmia.COMPREHENSIVE METABOLIC [id number] 19:13:00 Test Item Value Reference Range Interpretation [...] S NOT APPLICABLE FOR DIALYSIS PATIEN TS. [id number] 19:10:00 Test Item Value Reference Range Interpretation Comments MAGNESIUM (BEAKER) 2.1 mg/dL 1.5-3.0 Specimen moderately (test code = 627) hemolyzed CBC W/PLT COUNT & AUTO [id number] 18:47:00 Test Item Value Reference Range Interpretation [...] PERCENT (BEAKER) (test code = 2801) BLOOD [id number] 07:18:00 Test Item Value Reference Range Interpretation Comments Culture Observations (test NO GROWTH AFTER 5 code = COB1) DAYS BLOOD [id number] 07:18:00 Test Item Value Reference Range Interpretation Comments Culture Observations (test NO GROWTH AFTER 5 code = COB1) DAYS HEPATITIS B CORE ANTIBODY,[id number] 12:26:00 Test Item Value Reference Range Interpretation Comments HEPATITIS B CORE AB NON-REACTIVE NON-REACTIVE TEST PER FORMED TOTAL (test code = AT:[facility] [id number]) [id number] [place] [address]GASJXKAI SANTIAGO M.D. XR CHEST 1 [id number] 08:09:24 Location of dictation: J8Dihbkhur chest one view.HISTORY: J81.1: CHRONIC PULMONARY EDEMACOMMENT: Compared to one day prior. The heart is enlarged but stable, globularappearance suggests pericardial eff usion. Small effusions are now presentslightly greater on the left. No new consolidation, pneumothorax seen.Impression:1. Stable cardiomegaly with concern for pericardial effusion.2. Interval development of small effusions slightly greater on the left.BASIC METABOLIC [id number] 07:14:00 Test Item Value Reference Range Interpretation [...] code = RBCMOR) NORMAL XR CHEST 1 [id number] 07:33:56STUDY: Chest radiographHISTORY: Fever.COMPARISON: 09/05/17TECHNIQUE: Frontal view of the chest.LOCATION: W12NQALHNNI:The cardiac silhouette is enlarged, stable. Bilateral patchy perihilaropacities are similar in appearance. There is no definitive pleural effusion ordiscernible pneumothorax. No acute osseous abnormalities are identified.IMPRESSION:Stable appearance of bilateral perihilar patchy opacities and cardiomegaly.BASIC METABOLIC [id number] 04:50:00 Test Item Value Reference Range Interpretation [...] (test code = 09D) 8.6 mg/dL 8.3-9.5 [id number] 04:43:00 Test Item Value Reference Range Interpretation [...] MORPH (test code = RBCMOR) NORMAL CARDIAC [id number] 03:24:00 Test Item Value Reference Range Interpretation Comments TROPONIN I (test code = A84) 0.269 ng/mL 0.000-0.045 H CKMB (test code = A49) 7.8 ng/mL <=3.6 HH CPK (test code = 32A) 414 IU/L 39-308 H BASIC METABOLIC [id number] 03:08:00 Test Item Value Reference Range Interpretation [...] code = RBCMOR) NORMAL HEPATITIS B SURFACE [id number] 21:09:00 Test Item Value Reference Range Interpretation Comments HBSAB (test code = HBSAB) REACTIVE REACTIVE HEPATITIS B SURFACE [id number] 20:37:00 Test Item Value Reference Range Interpretation Comments HBSAG (test code = HBSAG) NON-REACTIVE NON-REACTIVE CARDIAC [id number] 20:23:00 Test Item Value Reference Range Interpretation Comments TROPONIN I (test code = A84) 0.231 ng/mL 0.000-0.045 H CKMB (test code = A49) 11.0 ng/mL <=3.6 HH CPK (test code = 32A) 469 IU/L 39-308 H PRO TIME AND [id number] 11:37:00 Test Item Value Reference Range Interpretation [...] = RBCMOR) NORMAL XR CHEST 1 VIEW [id number] 10:04:30EXAMINATION: XR CHEST 1 VIEW PORTABLE.LOCATION: D4.HISTORY: [...] tiny effusions, unchangedsince 09/01/2017,probably reflect vascular congestion.OCCULT [id number] 11:04:00 Test Item Value Reference Range Interpretation [...] 31A) 27 IU/L <=78 CBC (INCLUDES AUTOMATED DIFFERENTIAL)*[id number] 09:07:00 Test Item Value Reference Range Interpretation [...] NON-REACTIVE TEST PERFOR MED ANTIBODY (IGM) (test AT:[facility] code = [id number]) [id number] [place] [address]IBOSEKAI SANTIAGO M.D. HEPATITIS B SURFACE ANTIBODY 2017-09-02 15:30:00 Test Item Value Reference Range Interpretation Comments HBSAB (test code = HBSAB) REACTIVE REACTIVE XR CHEST 2 VIEW 2017-09-01 23:21:54XR CHEST 2 VIEW Location:[address] services provided 09/01/2017 11:21 PMIndication:[id number]: Hypertensive disorderComparison:Not currently availableFindings:The heart is enlarged with mild engorgement of the pulmonaryvascularity and prominence of the pulmonary interstitium. Bilateral pleuralfluid collections are noted. No chicho lobar consolidation is seen. No acutebony abnormality.Impression:Findings concerning for cardiogenic pulmonary edema with bilateralpleural fluid collections. HEPATITIS B CORE ANTIBODY,[id number] 12:54:00 Test Item Value Reference Range Interpretation Comments HEPATITIS B CORE AB NON-REACTIVE NON-REACTIVE TEST PER FORMED TOTAL (test code = AT:[employer] [id number]) [id number] [place] [address]JRAWEKAI SANTIAGO M.D. GLUCOMETER GLUCOSE- LAB USE [id number] 06:26:00 Test Item Value Reference Range Interpretation Comments GLUCOMETER (test code = 102 mg/dL 70-100 H Mete r ID: GMG) [id number] tor: 5331 JOS[address]U NM LUNG (V/Q ) SCAN W [id number] 15:28:50Radionuclide ventilation/perfusion lung scanLocation Code: K6IPAKWRW: Shortness of breathCOMPARISON:None.COMMENT: Routine images of the lungs were obtained after inhalation of 11.1 mCiof Xe133 gas andintravenous injection of 6.0 mCi 99 M technetium MAA.Ventilation is symmetric bilaterally with no focal defect. There is nosignificant trapping.Perfusion images demonstrate normal and symmetric perfusion with no segmentaldefect to suggest a PE.IMPRESSION: Normal VQ scan with a low probability of PE.BASIC METABOLIC [id number] 07:39:00 Test Item Value Reference Range Interpretation [...] code = RBCMOR) NORMAL HEPATITIS B SURFACE [id number] 18:54:00 Test Item Value Reference Range Interpretation Comments HBSAB (test code = HBSAB) REACTIVE REACTIVE HEPATITIS B SURFACE [id number] 18:37:00 Test Item Value Reference Range Interpretation Comments HBSAG (test code = HBSAG) NON-REACTIVE NON-REACTIVE CARDIAC [id number] 18:35:00 Test Item Value Reference Range Interpretation Comments TROPONIN I (test code = A84) 0.115 ng/mL 0.000-0.045 H CKMB (test code = A49) 7.0 ng/mL <=3.6 HH CPK (test code = 32A) 652 IU/L 39-308 H CARDIAC [id number] 14:04:00 Test Item Value Reference Range Interpretation Comments TROPONIN I (test code = A84) 0.120 ng/mL 0.000-0.045 H CKMB (test code = A49) 7.4 ng/mL <=3.6 HH CPK (test code = 32A) 651 IU/L 39-308 H GLUCOMETER GLUCOSE- LAB USE [id number] 11:12:00 Test Item Value Reference Range Interpretation Comments GLUCOMETER (test code = 99 mg/dL 70-100 LIGIA BRUNA METERMeter ID: GMG) [id number] tor: [address] MARLENE CHE[address] OWO GLUCOMETER GLUCOSE- LAB USE [id number] 04:22:00 Test Item Value Reference Range Interpretation Comments GLUCOMETER (test code = 116 mg/dL 70-100 H Mete r ID: GMG) [id number] tor: 4316 CORKY HOLMAN GLUCOMETER GLUCOSE- LAB USE [id number] 03:33:00 Test Item Value Reference Range Interpretation Comments GLUCOMETER (test code = 42 mg/dL 70-100 LL Mete r ID: GMG) [id number] tor: 4316 CORKY MAHONEY BRAIN NATRIURETIC [id number] 02:13:00 Test Item Value Reference Range Interpretation Comments proBNP (test code = PBNP) >249710 pg/mL 0-125 H XR ABDOMEN 2 VIEWS W/PA [id number] 02:11:50-CHEST AP VIEW-ABDOMEN AP AND UPRIGHT VIEWS LOCATION: [id number] INDICATION: Vomiting and shortnessof breathCOMPARISON: None FINDINGS: [...] obstruction, CT is recommended for further assessment.CARDIAC [id number] 01:33:00 Test Item Value Reference Range Interpretation Comments TROPONIN I (test code = A84) 0.147 ng/mL 0.000-0.045 H CKMB (test code = A49) 7.0 ng/mL <=3.6 HH CPK (test code = 32A) 688 IU/L 39-308 H COMPREHENSIVE METABOLIC [id number] 01:32:00 Test Item Value Reference Range Interpretation [...] 31A) 121 IU/L <=78 H AMYLASE AND [id number] 01:31:00 Test Item Value Reference Range Interpretation Comments AMYLASE (test code = 10A) 157 U/L 28-100 H LIPASE (test code = 60A) 224 IU/L 73-393 [id number] 01:26:00 Test Item Value Reference Range Interpretation Comments D-DIMER (test code = 687 ng/mL D-DU 0-234 H DDI) D-DIMER COMMENT (test *Level to rule out code = DDCOM) DVT or PE: <235 ng/mL D-DU* PRO TIME AND [id number] 01:26:00 Test Item Value Reference Range Interpretation [...]
[2021-12-07 11:23] LABS: Hematocrit 24.6 % (39.6-49.0); MCV 90.2 fL (80-100); MPV 8.2 fL (7.6-11.3); RBC Red Blood Cell Count 2.72 M/uL (4.33-5.43)
--- NOTE | 2021-12-07 11:25 | RAD REPORT ---
EXAM DESCRIPTION: CT - Head C Spine Cap Wo Con - 12/07/2021 11:13 am CLINICAL HISTORY: Trauma, head and neck injury. Chest, abdomen and pelvis pain. fall COMPARISON: Head C Spine Mpr Wo Con dated 11/20/2021; Chest Single View dated 08/20/2021 TECHNIQUE: CT head without contrast. CT cervical spine without contrast with coronal and sagittal reformatted images. CT chest, abdomen and pelvis without contrast with coronal and sagittal reformatted images of the spi ne. All CT scans are performed using dose optimization technique as appropriate and may include automated exposure control or mA/KV adjustment according to patient size. FINDINGS: CT HEAD WITHOUT CONTRAST: No intracranial hemorrhage, hydrocephalus or extra-axial fluid collection. Mild periventricular chron ic microvascular ischemic changes are evident. No areas of brain edema or midline shift. The paranasal sinuses and mastoids are clear. The calvarium is intact. CT CERVICAL SPINE WITHOUT CONTRAST: No fracture or subluxation. There is prominent degenerative change with wedging an kyphosis at C5-6. The prevertebral soft tissues are normal in thickness. CT CHEST, ABDOMEN, PELVIS WITHOUT CONTRAST: NOTE: Lack of contrast is a significant limitation in the assessment of trauma related findings. Spec ifically, solid organ, vascular and bowel evaluation is significantly limited. Partially ground-glass area of nodularity is seen measuring 12 mm in the right upper lobe. 5 mm nonca lcified nodules present superior segment left lower lobe. Pleural abutting 14 mm nodule is seen left lung base with 8 mm nodule more anteriorly. Irregular 21 x 19 mm nodule with central cavitation is se en right lung base anteriorly.No pneumothorax or pericardial/pleural fluid. Extensive left rib hardwa re is in place. Stent material is present several venous structures on the right as well as the thora cic aorta. No evidence of intra-abdominal visceral injury, free fluid or free air is seen within the above detai led limitations. [place] kidneys are significantly atrophic. Moderate atherosclerosis is seen. Moderate stool is present throughout the colon. Fractures are present of the left lateral transverse process of L1, L2, L3 and L4. Age of these fract ures is indeterminate. Correlation with back pain symptomology recommended. IMPRESSION: Left lateral transverse process fractures involving the lumbar spine as described. Age o f these injuries is uncertain however recommend correlation with clinical symptoms in this region. Multiple bilateral pulmonary nodules and seen with cavitary nodule noted which is 21 mm and irregular in shape and right lung base anteriorly. Differential would include septic emboli and neoplasia/meta static disease.
[2021-12-07 11:26] LABS: Protime INR 1.04
[2021-12-07 11:37] LABS: SARS-CoV-2 Antigen Rapid Res Negative (Negative)
[2021-12-07 12:06] LABS: Albumin 2.9 g/dL (3.4-5.0); Bilirubin Direct 0.1 mg/dL (0-0.2); Bilirubin Total 0.4 mg/dL (0.2-1.0); Magnesium 1.8 mg/dL (1.8-2.4); Protein, Total 7.3 g/dL (6.4-8.2)
[2021-12-07 12:07] LABS: Potassium 4.9 mmol/L (3.5-5.1)
--- NOTE | 2021-12-07 12:08 | EDPHYS ---
Physician Documentation [facility] Name: Velasquez Cruz Age: 46 yrs Sex: Male : 1975 Arrival Date: 12/07/2021 Time: 09:52 Bed 3 Private MD: ED Physician Abelino Nuñez HPI: 12/07 11:20 This 46 yrs old Black Male presents to ER via Ambulatory with complaints of Fall samm Injury, Head Injury-Adult. 11:20 Details of fall: The patient fell from a height, off furniture, approximately 2 feet. samm Onset: The symptoms/episode began/occurred just prior to arrival. Associated injuries: The patient sustained injury to the head. Severity of symptoms: At their worst the symptoms were mild, in the emergency department the symptoms are unchanged. The patient has not experienced similar symptoms in the past. Historical: - Allergies: 10:15 No Known Allergies; ss - PMHx: 10:15 HD MWF; Bipolar disorder; DVT; Hypertensive disorder; ss - Immunization history:: Client reports receiving the 2nd dose of the Covid vaccine. - Social history:: Smoking status: Patient reports the use of cigarette tobacco products, smokes one-half pack cigarettes per day. ROS: 11:22 Constitutional: Negative for fever, chills, and weight loss, Eyes: Negative for injury, samm pain, redness, and discharge, ENT: Negative for injury, pain, and discharge, Neck: Negative for injury, pain, and swelling, Cardiovascular: Negative for chest pain, palpitations, and edema, Respiratory: Negative for shortness of breath, cough, wheezing, and pleuritic chest pain, Abdomen/GI: Negative for abdominal pain, nausea, vomiting, diarrhea, and constipation, Back: Negative for injury and pain, : Negative for injury, bleeding, discharge, and swelling, MS/Extremity: Negative for injury and deformity, Skin: Negative for injury, rash, and discoloration, Neuro: Negative for headache, weakness, numbness, tingling, and seizure, Psych: Negative for depression, anxiety, suicide ideation, homicidal ideation, and hallucinations, Allergy/Immunology: Negative for hives, rash, and allergies, Endocrine: Negative for neck swelling, polydipsia, polyuria, polyphagia, and marked weight changes, Hematologic/Lymphatic: Negative for swollen nodes, abnormal bleeding, and unusual bruising. Exam: 11:22 Constitutional: This is a well developed, well nourished patient who is awake, alert, samm and in no acute distress. Head/Face: Normocephalic, atraumatic. Eyes: Pupils equal round and reactive to light, extra-ocular motions intact. Lids and lashes normal. Conjunctiva and sclera are non-icteric and not injected. Cornea within normal limits. Periorbital areas with no swelling, redness, or edema. ENT: Nares patent. No nasal discharge, no septal abnormalities noted. Tympanic membranes are normal and external auditory canals are clear. Oropharynx with no redness, swelling, or masses, exudates, or evidence of obstruction, uvula midline. Mucous membranes moist. Neck: Trachea midline, no thyromegaly or masses palpated, and no cervical lymphadenopathy. Supple, full range of motion without nuchal rigidity, or vertebral point tenderness. No Meningismus. Chest/axilla: Normal chest wall appearance and motion. Nontender with no deformity. No lesions are appreciated. Cardiovascular: Regular rate and rhythm with a normal S1 and S2. No gallops, murmurs, or rubs. Normal PMI, no JVD. No pulse deficits. Respiratory: Lungs have equal breath sounds bilaterally, clear to auscultation and percussion. No rales, rhonchi or wheezes noted. No increased work of breathing, no retractions or nasal flaring. Abdomen/GI: Soft, non-tender, with normal bowel sounds. No distension or tympany. No guarding or rebound. No evidence of tenderness throughout. Back: No spinal tenderness. No costovertebral tenderness. Full range of motion. Male : Normal genitalia with no discharge or lesions. Skin: Warm, dry with normal turgor. Normal color with no rashes, no lesions, and no evidence of cellulitis. MS/ Extremity: Pulses equal, no cyanosis. Neurovascular intact. Full, normal range of motion. Neuro: Awake and alert, GCS 15, oriented to person, place, time, and situation. Cranial nerves II-XII grossly intact. Motor strength 5/5 in all extremities. Sensory grossly intact. Cerebellar exam normal. Normal gait. Psych: Awake, alert, with orientation to person, place and time. Behavior, mood, and affect are within normal limits. 11:22 ENT: External ear(s): swelling, wound healing well. 11:41 ECG was reviewed by the Attending Physician. [facility] Vital Signs: 10:13 BP 151 / 104; Pulse 74; Resp 17; Temp 98.4(TE); Pulse Ox 98% on R/A; Weight 79.83 kg; ss Height 5 ft. 8 in. (172.72 cm); Pain 8/10; 11:35 BP 171 / 101; Pulse 60; Resp 15; Pulse Ox 98% on R/A; jl7 10:13 Body Mass Index 26.76 (79.83 kg, 172.72 cm) ss Dudley Coma Score: 11:22 Eye Response: spontaneous(4). Verbal Response: oriented(5). Motor Response: obeys [facility] commands(6). Total: 15. MDM: 10:23 Patient medically screened. [facility] 11:22 Differential diagnosis: Contusion of Hematoma on head. Differential diagnosis: closed samm head injury, contusion, fracture, laceration, multiple trauma. Data reviewed: vital signs, nurses notes, old medical records, lab test result(s), EKG, radiologic studies, CT scan, plain films. Data interpreted: library monitor: rate is 74 beats/min, rhythm is regular, Pulse oximetry: on 98L(s) per nasal canula, is 98 %. Test interpretation: by ED physician or midlevel provider: ECG, plain radiologic studies. Counseling: I had a detailed discussion with the patient and/or guardian regarding: the historical points, exam findings, and any diagnostic results supporting the discharge/admit diagnosis, lab results, radiology results. 12/07 10:27 Order name: Basic Metabolic Panel [facility] 12/07 10:27 Order name: CBC with Diff; Complete Time: 11:42 [facility] 12/07 10:27 Order name: LFT's [facility] 12/07 10:27 Order name: Magnesium [facility] 12/07 10:27 Order name: NT PRO-BNP [facility] 12/07 10:27 Order name: PT-INR; Complete Time: 11:27 [facility] 12/07 10:27 Order name: Troponin HS [facility] 12/07 10:27 Order name: XRAY Chest (1 view) [facility] 12/07 10:27 Order name: EKG; Complete Time: 10:28 [facility] 12/07 10:27 Order name: Cardiac monitoring; Complete Time: 11:32 [facility] 12/07 10:27 Order name: EKG - Nurse/Tech; Complete Time: 11:32 [facility] 12/07 10:27 Order name: CT Traumagram (Head C Spine CAP wo con); Complete Time: 11:27 [facility] 12/07 10:28 Order name: SARS RAPID; Complete Time: 11:42 [facility] 12/07 10:27 Order name: IV Saline Lock; Complete Time: 11:12 [facility] 12/07 10:27 Order name: Labs collected and sent; Complete Time: 11:12 [facility] 12/07 10:27 Order name: O2 Per Protocol; Complete Time: 11:12 [facility] 12/07 10:27 Order name: O2 Sat Monitoring; Complete Time: 11:12 [facility] EC:41 Rate is 56 beats/min. Rhythm is regular. QRS [place] is Normal. [place] interval is normal. QRS samm interval is normal. QT interval is normal. No Q waves. T waves are Peaked. No ST changes noted. Clinical impression: Abnormal EKG without significant change and No evidence of ischemia. Interpreted by me. Reviewed by me. Administered Medications: 12:10 Not Given (pt dischargedd): NS 0.9% 1000 ml IV at 50 ml/hr continuous jl7 Disposition Summary: 12/07/21 12:07 Discharge Ordered Location: Home samm Problem: new samm Symptoms: have improved samm Condition: Stable samm Diagnosis - End stage renal disease - on HD M,W,F samm - Fall (on) (from) other stairs and steps - BED, 2 STEPS samm - Abnormal findings on diagnostic imaging of other specified body structures - samm MULTIPLE PULMONARY NODULES, CAVATARY NODULE 21MM - Anemia in other chronic diseases classified elsewhere samm Followup: samm - With: - When: Upon discharge from the Emergency Department - Reason: Recheck today's complaints, Continuance of care, Re-evaluation by your physician Discharge Instructions: - Discharge Summary Sheet samm - Head Injury, Adult samm - Fall Prevention in the Home, Adult samm - Dialysis samm - End-Stage Kidney Disease samm - Fall Prevention in the Home, Adult, [id number] samm - Head Injury, Adult, [id number] samm - Chronic Kidney Disease, Adult samm - Hemodialysis samm - Hemodialysis, Care After samm - Eating Plan for Dialysis samm - Hemodialysis, [id number] samm Forms: - Medication Reconciliation Form samm - Thank You Letter samm - Antibiotic Education samm - Prescription Opioid Use samm Signatures: Dispatcher [employer] EDMS Joaquin, Abelino, MD MD samm Smirch, Little, RN RN ss Pennie Tovar RN jl7
--- NOTE | 2021-12-07 12:08 | ER ---
Nurse's Notes [facility] Name: Velasquez Cruz Age: 46 yrs Sex: Male : 1975 Arrival Date: 12/07/2021 Time: 09:52 Bed 3 Private MD: Diagnosis: End stage renal disease-on HD M,W,F;Fall (on) (from) other stairs and steps-BED, 2 STEPS;Abnormal findings on diagnostic imaging of other specified body structures-MULTIPLE PULMONARY NODULES, CAVATARY NODULE 21MM;Anemia in other chronic diseases classified elsewhere Presentation: 12/07 10:13 Chief complaint: jail staff member states that patient woke up this morning on ss the floor and hit the L side of his head. Pt has a previous ear injury from a similar incident weeks ago. Dressing in place, but reportedly from old ear injury. Coronavirus screen: Client denies travel out of the [place] in the last 14 days. Ebola Screen: Patient denies exposure to infectious person. Patient denies travel to an Ebola-affected area in the 21 days before illness onset. Initial Sepsis Screen: Does the patient meet any 2 criteria? No. Patient's initial sepsis screen is negative. Does the patient have a suspected source of infection? No. Patient's initial sepsis screen is negative. Risk Assessment: Do you want to hurt yourself or someone else? Patient reports no desire to harm self or others. Onset of symptoms was December 07, 2021. 10:13 Method Of Arrival: Ambulatory 10:13 Acuity: HEAVEN 3 ss Historical: - Allergies: 10:15 No Known Allergies; ss - PMHx: 10:15 HD MWF; Bipolar disorder; DVT; Hypertensive disorder; ss - Immunization history:: Client reports receiving the 2nd dose of the Covid vaccine. - Social history:: Smoking status: Patient reports the use of cigarette tobacco products, smokes one-half pack cigarettes per day. Screenin:36 Abuse screen: Denies threats or abuse. Denies injuries from another. Nutritional jl7 screening: No deficits noted. Tuberculosis screening: No symptoms or risk factors identified. Fall Risk IV access (20 points). Total Calles Fall Scale indicates No Risk (0-24 pts). Assessment: 11:36 Reassessment: Patient appears in no apparent distress at this time. No changes from jl7 previously documented assessment. Patient and/or family updated on plan of care and expected duration. Pain level reassessed. Patient denies pain at this time. Neuro: Level of Consciousness is obeys commands, Drowsy. Oriented to person, place, time, situation. Vital Signs: 10:13 BP 151 / 104; Pulse 74; Resp 17; Temp 98.4(TE); Pulse Ox 98% on R/A; Weight 79.83 kg; Height 5 ft. 8 in. (172.72 cm); Pain 8/10; 11:35 BP 171 / 101; Pulse 60; Resp 15; Pulse Ox 98% on R/A; jl7 10:13 Body Mass Index 26.76 (79.83 kg, 172.72 cm) ss Jason Coma Score: 11:22 Eye Response: spontaneous(4). Verbal Response: oriented(5). Motor Response: obeys samm commands(6). Total: 15. ED Course: 09:52 Patient arrived in ED. mr 10:15 Triage completed. ss 10:15 Arm band placed on right wrist. ss 10:23 Abelino Nuñez MD is Attending Physician. samm 10:41 CT Traumagram (Head C Spine CAP wo con) In Process Unspecified. EDMS 10:54 Alicia Spencer, RN is Primary Nurse. ko1 11:12 Inserted saline lock: 22 gauge in right upper arm, using aseptic technique. Blood kc6 collected. 11:12 SARS RAPID Sent. kc6 11:12 Basic Metabolic Panel Sent. kc6 11:12 CBC with Diff Sent. kc6 11:12 LFT's Sent. kc6 11:12 Magnesium Sent. kc6 11:12 NT PRO-BNP Sent. kc6 11:12 PT-INR Sent. kc6 11:36 Patient has correct armband on for positive identification. Bed in low position. Call jl7 light in reach. Side rails up X2. Client placed on continuous cardiac and pulse oximetry monitoring. NIBP monitoring applied. 11:58 XRAY Chest (1 view) In Process Unspecified. EDMS 12:07 Zeus Munoz DO is Referral Physician. samm 13:03 No provider procedures requiring assistance completed. IV discontinued, intact, ko1 bleeding controlled, No redness/swelling at site. Pressure dressing applied. Administered Medications: 12:10 Not Given (pt dischargedd): NS 0.9% 1000 ml IV at 50 ml/hr continuous jl7 Medication: 11:36 VIS not applicable for this client. jl7 Outcome: 12:07 Discharge ordered by . samm 12:17 Patient left the ED. ss 13:03 Discharged to home via wheelchair. ko1 13:03 Condition: stable 13:03 Discharge instructions given to patient, Instructed on discharge instructions, follow up and referral plans. Demonstrated understanding of instructions, follow-up care. Signatures: Dispatcher [employer] EDMT Abelino Nuñez MD MD cha Rivera, Mary mr Little Ivey, RN RN ss Pennie Tovar RN RN jl7 Sarah Steele6 Alicia Spencer, RN RN ko1 Corrections: (The following items were deleted from the chart) 10:15 10:13 Acuity: HEAVEN 4 [facility]
--- NOTE | 2021-12-07 12:15 | RAD REPORT ---
EXAM DESCRIPTION: RAD - Chest Single View - 12/07/2021 11:56 am CLINICAL HISTORY: COUGH Chest pain. COMPARISON: Chest Single View dated 08/20/2021 FINDINGS: Portable technique limits examination quality. Bilateral pulmonary opacities are present which may be related to infection or pulmonary edema. The h eart is moderately enlarged. Hardware is present left lateral ribs.Aortic stent material noted. Right -sided venous stent material also seen.
[2021-12-07 12:36] LABS: Troponin High Sensitivity 36.5 pg/mL (<58.9)
[2021-12-07 12:55] VITALS: TEMP 98.4; O2SAT 98
[2021-12-07 13:00] VITALS: BP 171/101
--- NOTE | 2021-12-10 05:42 | EKG ---
Test Date: 2021-12-07 Test Time: 11:32:11 Wing Coverer: EVARISTO MEASUREMENT RESULTS: Intervals: Rate: 56 DE: 166 QRSD: 84 QT: 486 QTc: 468 [place]: P: 56 DE: 166 QRS: 9 T: 80 INTERPRETIVE STATEMENTS: Sinus bradycardia Possible Left atrial enlargement RSR' or QR pattern in V1 suggests right ventricular conduction delay Left ventricular hypertrophy Anteroseptal infarct, age undetermined Abnormal ECG Compared to ECG 08/20/2021 18:15:42 RSR' in V1 or V2 now present Left ventricular hypertrophy now present Myocardial infarct finding still present Electronically Signed On 12-10-21 05:39:48 CDT by Zach Saucedo
== END 2021-12-07 12:17 | disposition home or self-care (01) ==
LOC: ER 09:50
DX: S09.90XA Unspecified injury of head, initial encounter (principal); W10.9XXA Fall (on) (from) unspecified stairs and steps, initial encounter; I12.0 Hypertensive chronic kidney disease with stage 5 chronic kidney disease or end stage renal disease; N18.6 End stage renal disease; D63.1 Anemia in chronic kidney disease; F17.210 Nicotine dependence, cigarettes, uncomplicated; R91.8 Other nonspecific abnormal finding of lung field; Z99.2 Dependence on renal dialysis; Z20.822 Contact with and (suspected) exposure to COVID-19
CPT/HCPCS: 36415; 70450; 71045; 71250; 72125; 80048; 80076; 83735; 83880; 84484; 85025; 85610; 87811; 93005; 99283

== ENCOUNTER 2022-05-08 14:42 | Emergency (ER) | payer OTHER ==
--- OUTSIDE RECORDS SUMMARY | 2022-05-08 14:55 | XMS REPORT | Continuity of Care Document ---
:1975 Author Organization [facility] t Address [address] [place] [address] [address] [place] [address] Care Team Providers Name Role Phone UNKNOWN, REFFERING Primary Care Physician Unavailable ENRIQUE PATRICK Attending Clinician Unavailable [email or web address] Attending Clinician Unavailable RESHMA, MIGUEL ÁNGEL K.H. Attending Clinician Unavailable COLLEEN VIZCARRA Attending Clinician Unavailable Conrad LINDC, Aubree Beckett Attending Clinician [phone] Bunny Go MD Attending Clinician Reshma ELLIOTT, Miguel Ángel K.H. Attending Clinician Doctor Unassigned, [place] Attending Clinician Unavailable Phong BAKER, Emily Attending Clinician Unavailable Ko ELLIOTT, Jorje Vasquez Attending Clinician Medardo ELLIOTT, Alma Luke Attending Clinician Alex ELLIOTT, Rakel Mcguire Attending Clinician Evans ELLIOTT, Nakul Pedro Attending Clinician [phone] Yaniv ELLIOTT, Virgilio Hill Attending Clinician Dallas Kowalski CRNA Attending Clinician [phone] Mara Padron Attending Clinician [phone] Robert Mccarthy Attending Clinician [phone] AMBREEN_JUANHANA Attending Clinician Unavailable June Attending Clinician [phone] [email or web address] Attending Clinician Unavailable KHADAR CALHOUN Attending Clinician Unavailable DR KACEY GAYLE Attending Clinician Unavailable UNIQUE, DR RUBALCAVA Attending Clinician Unavailable POPPY, DR HENRY Attending Clinician Unavailable [email or web address]_Gume Admitting Clinician Unavailable RAKEL WAN Admitting Clinician Unavailable MD ALMA WHITMAN Admitting Clinician Unavailable RUBEN_NOE Admitting Clinician Unavailable [email or web address]_G Admitting Clinician Unavailable KHADAR CALHOUN Admitting Clinician Unavailable DR KACEY GAYLE Admitting Clinician Unavailable UNIQUE, DR RUBALCAVA Admitting Clinician Unavailable DR ELAINE MCWILLIAMS Admitting Clinician Unavailable Payers Payer Name Policy Type Policy Number Effective Date Expiration Date S tiffany [facility] MEDICARE [id number] 2021 ADVANTAGE PLAN 00:00:00 [facility] [id number] 2019 [facility] [place] - 00:00:00 [facility] - [id number] 2021 [facility] - 00:00:00 [facility] (MEDICAID HMO) [facility] [id number] 2022 00:00:00 Problems Condition Condition Condition Status Onset Resolution Last Treating Co mments Source Name Details Category Date Date Treatment Clinician Date Bipolar I Bipolar I Problem Active [place] via disorder Disorder 1-15 Medica l 00:00: 00 Insomnia Insomnia Problem Active 2021-03 [facility] 2- Medical 00:00: 00 Lives in a Lives in a Problem Active 2021-03 [facility] nursing Nursing 2-13 Medical home Home 00:00: 00 Dry skin Dry Skin Problem Active 2021-03 [facility] 2- Medical 00:00: 00 Nicotine Nicotine Problem Active 2021-03 [facility] dependence Dependence 2-02 Me dical with with 00:00: current Current 00 use Use End stage End Stage Problem Active 2021-03 [place] via renal Renal 1-15 Medical failure on Failure on 00:00: dialysis Dialysis 00 Erectile Erectile Problem Active 2021-03 [facility] dysfunctio Dysfunctio 1-06 Me dical n n 00:00: 00 Hypertensi Hypertensi Problem Active 2021-03 [facility] ve urgency ve Urgency 0-18 Me dical 00:00: 00 Arterioven Arterioven Problem Active 2021-03 [facility] ous graft ous Graft 0-06 Medi ellyn infection Infection 00:00: 00 ESRD on ESRD on Disease Active [facility] dialysis dialysis 12-14 00:00: Hospita 00 l Hypertensi Hypertensi Disease Active M ethodi on on 12-14 00:00: Hospita 00 l Hyperkalem Hyperkalem Disease Active M ethodi ia ia 12-14 00:00: Hospita 00 l Arterioven Arterioven Disease Active M ethodi ous graft ous graft 12-13 infection, infection, 00:00: Ho spita initial initial 00 l encounter encounter Pseudoaneu Pseudoaneu Problem Active [facility] rysm of rysm of 10-04 Medical artery of Artery of 00:00: upper Upper 00 extremity Extremity 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 rysm of 09-25 Health arterioven arterioven 00:00: ous ous 00 dialysis dialysis fistula fistula Complicati Complicati Disease Active [facility] on of on of 09-25 Health arterioven arterioven 00:00: ous ous 00 dialysis dialysis fistula fistula End stage End stage Disease Active [facility] renal renal 09-25 Health disease disease 00:00: 00 Hyperphosp Hyperphosp Problem Active [facility] hatemia hatemia 09-10 Medical 00:00: 00 Hypercoagu Hypercoagu Problem Active [facility] lability lability 6- Medica l state State 00:00: 00 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 [place] via end stage End Stage 6-02 Medi ellyn renal Renal 00:00: disease Disease 00 Vitamin D Vitamin D Problem Active [place] via deficiency Deficiency 08-19 Me dical 00:00: 00 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 00:00: disorder Disorder 00 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 00:00: depression Depression 00 Aneurysm Aneurysm Problem Active [facility] a of artery of Artery 08-19 Medi ellyn of upper of Upper 00:00: extremity Extremity 00 Folic acid Folic Acid Problem Active [facility] deficiency Deficiency 08-14 Me dical 00:00: 00 Hyperkalem Hyperkalem Problem Active [facility] ia ia 08-04 Medical 00:00: 00 Hypertensi Hypertensi Problem Active [facility] ve heart ve Heart 08-04 Medica l and renal and Renal 00:00: disease Disease 00 with both with Both (congestiv (Congestiv e) heart e) Heart failure Failure and renal and Renal failure Failure Arterioven Arterioven Problem Active [facility] ous ous 08-04 Medical fistula Fistula 00:00: 00 Peripheral Peripheral Problem Active [facility] vascular Vascular 4-29 Medica l disease Disease 00:00: 00 Chronic Chronic Problem Active [facility] obstructiv Obstructiv -29 Me dical e lung e Lung 00:00: disease Disease 00 Opioid Opioid Problem Active [facility] dependence Dependence 4-29 Me dical with with 00:00: current Current 00 use Use Chronic Chronic Problem Active [facility] pain Pain 4-14 Medical syndrome Syndrome 00:00: 00 Gastroesop Gastroesop Problem Active [facility] hageal hageal 4-14 Medical reflux Reflux 00:00: disease Disease 00 Polysubsta Polysubsta Problem Active [facility] nce abuse nce Abuse 4-13 Medi ellyn 00:00: 00 Chronic Chronic Problem Active [facility] diastolic Diastolic 4-13 Medi ellyn heart Heart 00:00: failure Failure 00 Noncomplia Noncomplia Problem Active [facility] nce with nce with 4-13 Medica l treatment Treatment 00:00: 00 Dependence Dependence Problem Active [facility] on renal on Renal 4-13 Medica l dialysis Dialysis 00:00: 00 Problem Problem Disease Active 2018-03 [facility] with with 1-25 st dialysis dialysis 00:00: Hospit a access access 00 l AV fistula AV fistula Disease Active 2018-[address] occlusion occlusion 1-19 [facility] AV fistula AV fistula Disease Active M ethodi occlusion occlusion 9-13 st 00:00: Hospita 00 l Pulmonary Pulmonary Disease Active Uni vers edema edema 1-21 ity of 00:00: [address] Branch Obesity Obesity Disease Active Univers (BMI (BMI 1-21 ity of 30-39.9) 30-39.9) 00:00: [address] Respirator Respirator Disease Active U nivers y failure y failure 3-22 ity of requiring requiring 00:[place] int[place] 00 Me dical Branch Dialysis Dialysis Disease [facility] AV fistula 6-11 Abbi kes malfunctio malfunctio 00:00: Me dical n, initial n, initial 00 Ce nter encounter encounter Arm DVT Arm DVT Disease Active [facility] (deep (deep 2-29 [facility] venous venous 00:00: Medical thromboemb thromboemb 00 Ce nter olism), olism), acute, acute, right right Pain of Pain of Disease Active Univers right right 1-03 ity of upper upper 00:00: [place] extremity extremity 00 [facility] Branch Swelling Swelling Disease Active Unive rs of right of right 1-02 ity of upper upper 00:00: [place] extremity extremity 00 [facility] Branch 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 Medical Group Allergies, Adverse Reactions, Alerts Allergy Allergy Status Severity Reaction(s) Onset Inactive Treating Comm ents Source Name Type Date Date Clinician Nifedipi Allergy Active [facility] ne to 3-03 Medical substanc 00:00: e 00 Nifedipi Drug Active Anxiety Hot [facility] ne Allergy 3-03 flashes [facility] NO KNOWN Drug Active Univers ALLERGIE Class ity of S [facility] Family History Family Member Diagnosis Comments Start Date Stop Date Source Natural father Unremarkable [facility] Natural sister Unremarkable [facility] Social History Social Habit Start Date Stop Date Quantity Comments Source History of Smokes tobacco University of tobacco use daily [facility] Exposure to 2021-12-15 2021-12-25 Not sure University SARS-CoV-2 00:00:00 13:08:00 [facility] (event) Branch Tobacco use and 2021-12-25 2021-12-25 User of smokeless Un iversity of exposure 00:00:00 00:00:00 tobacco [facility] Alcohol intake 2021-12-18 2021-12-18 Ex-drinker [facility] 00:00:00 00:00:00 (finding) [birth year] [facility] 00:00:00 00:00:00 Smoking Status Start Date Stop Date Source Heavy Tobacco Smoker Jimmy ragland Smokes tobacco daily 2021-12-25 00:00:00 Univers ity [facility] Medications Ordered Filled Start Stop Current Ordering Indication Dosage Frequency Signature Comments Components Source Medication Medication Date Date Medication? Clinician (SIG) Name Name melatonin 3 2021-03 Yes 3mg QD Take 3 mg M ethodi mg tablet 0-[address] 14:11: nightly as Hospita 15 needed for l sleep. albuterol 2021-03 Yes 2.5mg Q.[id number] Take 2.5 [facility] sulfate 0-[id number] (PROVENTIL) 14:11: 3D nebulizati Hospita 2.5 mg/0.5 15 on 3 l mL solution (three) for times a nebulizatio day as n needed (congestio n/cough). amLODIPine 2021-03 Yes 10mg QD Take 1 Metho di (NORVASC) 0-25 tablet (10 st 10 mg 14:11: mg total) Hospita tablet 15 by mouth l daily. Hold for SBP<110/60 ,Hold prior to dialysis. lanolin/min 2021-03 Yes 1[drp] Q.5D Apply 1 M ethodi eral 0-[address] oil/petrola 14:11: eye 2 Hospi ta timo 15 (two) l (ARTIFICIAL times a TEARS OPHT) day. 0.4% carvedilol 2021-03 Yes 25mg Q.5D Take 25 mg M ethodi (COREG) 25 0-[address] MG tablet 14:11: (two) Hospita 15 times a l day with meals. Hold if SBP<100, DBP<60 lactulose 2021-03 Yes 20g Q24H Take 20 g Met hodi 10 gram/15 0-[address] mL (15 mL) 14:11: daily as Hos acacia solution 15 needed l (constipat ion). LIDOCAINE 2021-03 Yes 1{appli Q12H Apply 1 Me thodi HCL TOP 0-25 cation} applicatio st 14:11: n Hospita 15 topically l every 12 (twelve) hours as needed. 3% Gel apply to right hemodialys is access as needed for pain omeprazole 2021-03 Yes 20mg QD Take 20 mg M ethodi (PriLOSEC) 0-[address] 20 MG 14:11: daily. Hospita capsule 15 l polyethylen 2021-03 Yes 17g QD Take 17 g M ethodi e glycol 0-[address] (MIRALAX) 14:11: daily. Hospit a 17 gram 15 l packet amino 2021-03 Yes 30mL Q.[id number] Take 30 mL [facility] acids/prote 0-25 [id number] by mouth [address] in 14:11: 3D (three) Hospita hydr/fiber 15 times a l (PRO-STAT day. RENAL CARE ORAL) senna 2021-03 Yes 2{tbl} Q12H Take 2 [facility] (SENOKOT) 0-[address] 8.6 mg 14:11: mouth Hospita tablet 15 every 12 l (twelve) hours. cetirizine 2021-03 Yes 10mg QD Take 10 mg M ethodi (ZyrTEC) 10 0-[address] MG tablet 14:11: daily. Hospit a 15 l acetaminoph 2021-03 Yes [id number] 1{tbl} Q.5D Take 1 M ethodi en-codeine 0-[address] (TYLENOL 14:11: mouth 2 Hospit a WITH 15 (two) l CODEINE #3) times a 300-30 mg day as per tablet needed for moderate pain .acute pain. ARIPiprazol 2021-03 Yes 5mg QD Take 1 Meth inderjit e (ABILIFY) 0-25 tablet (5 st 5 MG tablet 14:11: mg total) H ospita 15 by mouth l daily. atorvastati 2021-03 Yes 20mg QD Take 1 Meth inderjit n (LIPITOR) 0-25 tablet (20 st 20 mg 14:11: mg total) Hospita tablet 15 by mouth l daily. Default OP ins ergocalcife 2021-03 Yes [id number] Q7D Take 1 Me thodi rol 0-[address] (VITAMIN 14:11: (50,000 Hospit a D2) 50,000 15 Units l unit total) by capsule mouth once a week. ferrous 2021-03 Yes 325mg Q.5D Take 1 [facility] sulfate 325 0-[address] (65 FE) MG 14:11: (325 mg Hosp carly tablet 15 total) by l mouth 2 (two) times a day. fluticasone 2021-03 Yes 50ug QD 1 spray Met hodi propionate 0-25 ([address] (FLONASE) 14:11: total) by Hos acacia 50 15 Each Nare l mcg/actuati route on nasal daily. spray hydrALAZINE 2021-03 Yes 100mg Q8H Take 1 Met hodi (APRESOLINE 0-[address] ) 100 MG 14:11: (100 mg Hospit a tablet 15 total) by l mouth every 8 (eight) hours. Hold if BP<110/60, do not hold prior to dialysis folic acid 2021-03 Yes 1mg QD Take 1 Metho di (FOLVITE) 1 0-25 tablet (1 st MG tablet 14:11: mg total) Hos acacia 15 by mouth l daily. sertraline 2021-03 Yes 100mg QD Take 1 Meth inderjit (ZOLOFT) 0-[address] 100 MG 14:11: (100 mg Hospita tablet 15 total) by l mouth nightly. patiromer 2021-03 Yes 8.4g Q.[id number] Take 8.4 g [facility] calcium 0-25 [id number] by mouth [address] sorbitex 14:11: 3W (three) Hospit a ([place]) 15 times a l 8.4 gram week. powder in Every packet Tue,Tess,Sa packet t,to be given on non dialysis days. aspirin 2021-03 Yes 81mg QD Take 1 [facility] (ECOTRIN) 0-25 tablet (81 st 81 MG 14:11: mg total) Hospita enteric 15 by mouth l coated daily. tablet melatonin 3 2021-03 Yes 3mg QD Take 3 mg M ethodi mg tablet 0-[address] 14:11: nightly as Hospita 15 needed for l sleep. albuterol 2021-03 Yes 2.5mg Q.[id number] Take 2.5 [facility] sulfate 0-[id number] (PROVENTIL) 14:11: 3D nebulizati Hospita 2.5 mg/0.5 15 on 3 l mL solution (three) for times a nebulizatio day as n needed (congestio n/cough). amLODIPine 2021-03 Yes 10mg QD Take 1 Metho di (NORVASC) 0-25 tablet (10 st 10 mg 14:11: mg total) Hospita tablet 15 by mouth l daily. Hold for SBP<110/60 ,Hold prior to dialysis. lanolin/min 2021-03 Yes 1[drp] Q.5D Apply 1 M ethodi eral 0-[address] oil/petrola 14:11: eye 2 Hospi ta timo 15 (two) l (ARTIFICIAL times a TEARS OPHT) day. 0.4% carvedilol 2021-03 Yes 25mg Q.5D Take 25 mg M ethodi (COREG) 25 0-[address] MG tablet 14:11: (two) Hospita 15 times a l day with meals. Hold if SBP<100, DBP<60 lactulose 2021-03 Yes 20g Q24H Take 20 g Met hodi 10 gram/15 0-[address] mL (15 mL) 14:11: daily as Hos acacia solution 15 needed l (constipat ion). LIDOCAINE 2021-03 Yes 1{appli Q12H Apply 1 Me thodi HCL TOP 0-25 cation} applicatio st 14:11: n Hospita 15 topically l every 12 (twelve) hours as needed. 3% Gel apply to right hemodialys is access as needed for pain omeprazole 2021-03 Yes 20mg QD Take 20 mg M ethodi (PriLOSEC) 0-[address] 20 MG 14:11: daily. Hospita capsule 15 l polyethylen 2021-03 Yes 17g QD Take 17 g M ethodi e glycol 0-[address] (MIRALAX) 14:11: daily. Hospit a 17 gram 15 l packet amino 2021-03 Yes 30mL Q.[id number] Take 30 mL [facility] acids/prote 0-25 [id number] by mouth [address] in 14:11: 3D (three) Hospita hydr/fiber 15 times a l (PRO-STAT day. RENAL CARE ORAL) senna 2021-03 Yes 2{tbl} Q12H Take 2 [facility] (SENOKOT) 0-[address] 8.6 mg 14:11: mouth Hospita tablet 15 every 12 l (twelve) hours. cetirizine 2021-03 Yes 10mg QD Take 10 mg M ethodi (ZyrTEC) 10 0-[address] MG tablet 14:11: daily. Hospit a 15 l acetaminoph 2021-03 Yes [id number] 1{tbl} Q.5D Take 1 M ethodi en-codeine 0-[address] (TYLENOL 14:11: mouth 2 Hospit a WITH 15 (two) l CODEINE #3) times a 300-30 mg day as per tablet needed for moderate pain .acute pain. ARIPiprazol 2021-03 Yes 5mg QD Take 1 Meth inderjit e (ABILIFY) 0-25 tablet (5 st 5 MG tablet 14:11: mg total) H ospita 15 by mouth l daily. atorvastati 2021-03 Yes 20mg QD Take 1 Meth inderjit n (LIPITOR) 0-25 tablet (20 st 20 mg 14:11: mg total) Hospita tablet 15 by mouth l daily. Default OP ins ergocalcife 2021-03 Yes [id number] Q7D Take 1 Me thodi rol 0-[address] (VITAMIN 14:11: (50,000 Hospit a D2) 50,000 15 Units l unit total) by capsule mouth once a week. ferrous 2021-03 Yes 325mg Q.5D Take 1 [facility] sulfate 325 0-[address] (65 FE) MG 14:11: (325 mg Hosp carly tablet 15 total) by l mouth 2 (two) times a day. fluticasone 2021-03 Yes 50ug QD 1 spray Met hodi propionate 0-25 ([address] (FLONASE) 14:11: total) by Hos acacia 50 15 Each Nare l mcg/actuati route on nasal daily. spray hydrALAZINE 2021-03 Yes 100mg Q8H Take 1 Met hodi (APRESOLINE 0-[address] ) 100 MG 14:11: (100 mg Hospit a tablet 15 total) by l mouth every 8 (eight) hours. Hold if BP<110/60, do not hold prior to dialysis folic acid 2021-03 Yes 1mg QD Take 1 Metho di (FOLVITE) 1 0-25 tablet (1 st MG tablet 14:11: mg total) Hos acacia 15 by mouth l daily. sertraline 2021-03 Yes 100mg QD Take 1 Meth inderjit (ZOLOFT) 0-[address] 100 MG 14:11: (100 mg Hospita tablet 15 total) by l mouth nightly. patiromer 2021-03 Yes 8.4g Q.[id number] Take 8.4 g [facility] calcium 0-25 [id number] by mouth [address] sorbitex 14:11: 3W (three) Hospit a ([place]) 15 times a l 8.4 gram week. powder in Every packet Tue,Tess,Sa packet t,to be given on non dialysis days. aspirin 2021-03 Yes 81mg QD Take 1 [facility] (ECOTRIN) 0-25 tablet (81 st 81 MG 14:11: mg total) Hospita enteric 15 by mouth l coated daily. tablet multivitami Yes 1{capsu Take 1 U nivers n capsule 12-25 le} capsule by ity of 13:33: mouth [place] 35 daily. Medical Branch multivitami Yes 1{capsu Take 1 U nivers n capsule 12-25 le} capsule by ity of 13:33: mouth [place] 35 daily. Medical Branch multivitami Yes 1{capsu Take 1 U nivers n capsule 12-25 le} capsule by ity of 13:33: mouth [place] 35 daily. Medical Branch clonIDINE 2021- No .2mg Q7D Place 1 Meth inderjit (CATAPRES-T 12-25 10-28 patch (0.2 s t TS) 0.2 00:00: 04:59 mg total) Hosp carly mg/24 hr 00 :00 on the l skin once a week for 30 days. clonIDINE 202-0 2022- No .2mg Q7D Place 1 Meth inderjit (CATAPRES-T 12-25 patch (0.2 s t TS) 0.2 00:00: 04:59 mg total) Hosp carly mg/24 hr 00 :00 on the l skin once a week for 30 days. clonIDINE 202-0 2022- No .2mg Q7D Place 1 Meth inderjit (CATAPRES-T 12-25 patch (0.2 s t TS) 0.2 00:00: 04:59 mg total) Hosp carly mg/24 hr 00 :00 on the l skin once a week for 30 days. acetaminoph 2021-0 Yes [id number] 1{tbl} Q.5D Take 1 M ethodi en-codeine 9-[address] (TYLENOL 20:55: mouth 2 Hospit a WITH 01 (two) l CODEINE #3) times a 300-30 mg day as per tablet needed for moderate pain .acute pain. ARIPiprazol 0 Yes 5mg QD Take 1 Meth inderjit e (ABILIFY) 9-21 tablet (5 st 5 MG tablet 20:55: mg total) H ospita 01 by mouth l daily. atorvastati 2021-0 Yes 20mg QD Take 1 Meth inderjit n (LIPITOR) 9-21 tablet (20 st 20 mg 20:55: mg total) Hospita tablet 01 by mouth l daily. Default OP ins ergocalcife 2021-0 Yes [id number] Q7D Take 1 Me thodi rol 9-[address] (VITAMIN 20:55: (50,000 Hospit a D2) 50,000 01 Units l unit total) by capsule mouth once a week. ferrous 2021-0 Yes 325mg Q.5D Take 1 [facility] sulfate 325 9-[address] (65 FE) MG 20:55: (325 mg Hosp carly tablet 01 total) by l mouth 2 (two) times a day. fluticasone 2021-0 Yes 50ug QD 1 spray Met hodi propionate 9-21 ([address] (FLONASE) 20:55: total) by Hos acacia 50 01 Each Nare l mcg/actuati route on nasal daily. spray hydrALAZINE 0 Yes 100mg Q8H Take 1 Met hodi (APRESOLINE 12-[address] ) 100 MG 20:55: (100 mg Hospit a tablet 01 total) by l mouth every 8 (eight) hours. Hold if BP<110/60, do not hold prior to dialysis folic acid 0 Yes 1mg QD Take 1 Metho di (FOLVITE) 1 12-19 tablet (1 st MG tablet 20:55: mg total) Hos acacia 01 by mouth l daily. sertraline Yes 100mg QD Take 1 Meth inderjit (ZOLOFT) 12-[address] 100 MG 20:55: (100 mg Hospita tablet 01 total) by l mouth nightly. patiromer 0 Yes 8.4g Q.[id number] Take 8.4 g [facility] calcium 12-19 [id number] [address] mouth [address] sorbitex 20:55: 3W (three) Hospit a ([place]) 01 times a l 8.4 gram week. powder in Every packet Tue,Tess,Sa packet t,to be given on non dialysis days. aspirin Yes 81mg QD Take 1 [facility] (ECOTRIN) 12-19 tablet (81 st 81 MG 20:55: mg total) Hospita enteric by mouth l coated daily. tablet calcium 2021- No 667mg QD Take 1 Method i acetate,aure 12-19- capsule st sphat bind, 20:55: 00:00 (667 mg Ho spita (PHOSLO) 01 :00 total) by l 667 mg mouth capsule nightly. metoprolol 0 2021- No 100mg Q12H Take 1 Met hodi tartrate 12-19- tablet st (LOPRESSOR) 20:55: 00:00 (100 mg Ho spita 100 mg 01 :00 total) by l tablet mouth every 12 (twelve) hours. Hold for SBP<120 or HR<60 sodium 0 2021- No 5g Q2D Take 5 g Method i zirconium 12-[address] cyclosilica 20:55: 00:00 every Hosp carly te 01 :00 other day. l (Lokelma) 5 Give odd gram powder days in packet [place], packet u,Sat calcium 2021-0 2021- No 667mg QD Take 1 Method i acetate,aure 12-19- capsule st sphat bind, 20:55: 00:00 (667 mg Ho spita (PHOSLO) 01 :00 total) by l 667 mg mouth capsule nightly. metoprolol 2021-0 2022- No 100mg Q12H Take 1 Met hodi tartrate 12-19- tablet st (LOPRESSOR) 20:55: 00:00 (100 mg Ho spita 100 mg 01 :00 total) by l tablet mouth every 12 (twelve) hours. Hold for SBP<120 or HR<60 sodium 2021-2- No 5g Q2D Take 5 g Method i zirconium 12-[address] cyclosilica 20:55: 00:00 every Hosp carly te 01 :00 other day. l (Lokelma) 5 Give odd gram powder days in [facility] packet u,Sat calcium 2021-0 2022- No 667mg QD Take 1 Method i acetate,aure 12-[address] sphat bind, 20:55: 00:00 (667 mg Ho spita (PHOSLO) 01 :00 total) by l 667 mg mouth capsule nightly. metoprolol 2021-0 2- No 100mg Q12H Take 1 Met hodi tartrate 12-[address] (LOPRESSOR) 20:55: 00:00 (100 mg Ho spita 100 mg 01 :00 total) by l tablet mouth every 12 (twelve) hours. Hold for SBP<120 or HR<60 sodium 2021-0 2- No 5g Q2D Take 5 g Method i zirconium 12-[address] cyclosilica 20:55: 00:00 every Hosp carly te 01 :00 other day. l (Lokelma) 5 Give odd gram powder days in packet Fri,Fri, packet u,Sat cefTAZidime Yes 1g QD Infuse 1 g Methodi (FORTAZ) 1 12-[address] gram in 50 00:00: venous Hospi ta mL Mini-Bag 00 catheter l Plus daily. vancomycin Yes 750mg Infuse 750 [facility] 750 mg in 9-[address] sodium 00:00: venous Hospita chloride 00 catheter l 0.9% 250 mL Every IVPB Friday, Friday, and Friday. cefTAZidime 0 Yes 1g QD Infuse 1 g [facility] (FORTAZ) 1 9-[address] gram in 50 00:00: venous Hospi ta mL Mini-Bag 00 catheter l Plus daily. vancomycin 0 Yes 750mg Infuse 750 [facility] 750 mg in 9-[address] sodium 00:00: venous Hospita chloride 00 catheter l 0.9% 250 mL Every IVPB Friday, Friday, and Friday. cefTAZidime 0 Yes 1g QD Infuse 1 g [facility] (FORTAZ) 1 9-[address] gram in 50 00:00: venous Hospi ta mL Mini-Bag 00 catheter l Plus daily. vancomycin Yes 750mg Infuse 750 [facility] 750 mg in 9-[address] sodium 00:00: venous Hospita chloride 00 catheter l 0.9% 250 mL Every IVPB Friday, Friday, and Friday. aspirin 325 2021- No 325mg QD Take 325 Methodi MG tablet 12-[address] 20:55: 00:00 mouth Hospita 48 :00 daily. l clonIDINE 2021- No .2mg Q.[id number] Take 1 [facility] HCl 12-[id number] (CATAPRES) 20:55: 00:00 3D (0.2 mg Hos acacia 0.2 MG 48 :00 total) by l tablet mouth 3 (three) times a day as needed. Hold if SBP<100, DBP<60 LIDOCAINE 2021- No 1{appli Q.[id number] Apply 1 Methodi HCL TOP 12-18 cation} [id number] applicatio st 20:55: 00:00 3W n Hospita 48 :00 topically l 3 (three) times a week. 3% Gel, Apply to right hemodialys is access every day shift every Fri, Fri,, Fri. For pain prior to dialysis lisinopril 2021- No 40mg QD Take 1 Meth inderjit (PRINIVIL) 12-18- tablet (40 st 40 mg 20:55: 00:00 mg total) Hospit a tablet 48 :00 by mouth l daily. Hold if SBP<110, DBP<60 ,do not hold prior to dilaysis traMADol 2021- No [id number] 50mg Q6H Take 50 mg M ethodi (ULTRAM) 50 12-18- by mouth st mg tablet 20:55: 00:00 every 6 Hosp carly 48 :00 (six) l hours as needed for moderate pain .Acute Pain. acetaminoph 2021- No 1000mg Q6H Take 1,000 Methodi en 12-18-[address] (TYLENOL) 20:55: 00:00 mouth Hospit a 500 MG 48 :00 every 6 l tablet (six) hours as needed for mild pain. zinc No 220mg QD Take 220 [facility] sulfate 12-18- mg by st (ZINCATE) 20:55: 00:00 mouth Hospit [facility] 220 (50) mg 48 :00 daily. l capsule aspirin 325 2021- No 325mg QD Take 325 [facility] MG tablet 12-18- mg by [facility] 20:55: 00:00 mouth [facility]osp[facility] 48 :00 daily. l clonIDINE 2021- No .2mg Q.92176562 Take 1 [facility] HCl 12-18- [id number] tablet st (CATAPRES) 20:55: 00:00 3D (0.2 mg Hos acacia 0.2 MG 48 :00 total) by l tablet mouth 3 (three) times a day as needed. Hold if SBP<100, DBP<60 LIDOCAINE 2021- No 1{appli Q.04226479 Apply 1 [facility] HCL TOP 12-18- cation} [id number] applicatio st 20:55: 00:00 3W n Hospita 48 :00 topically l 3 (three) times a week. 3% Gel, Apply to right hemodialys is access every day shift every Mon, Wed,, Fri. For pain prior to dialysis lisinopril 2021- No 40mg QD Take 1 Meth inderjit (PRINIVIL) 12-18- tablet (40 st 40 mg 20:55: 00:00 mg total) Hospit a tablet 48 :00 by mouth l daily. Hold if SBP<110, DBP<60 ,do not hold prior to dilaysis traMADol 2021- [place] [id number] 50mg Q6H Take 50 mg M [facility]i (ULTRAM) 50 12-[address] mg tablet 20:55: 00:00 every 6 Hosp carly 48 :00 (six) l hours as needed for moderate pain .Acute Pain. acetaminoph 2021- No 1000mg Q6H Take 1,000 [facility] en 12-18-[address] (TYLENOL) 20:55: 00:00 mouth Hospit a 500 MG 48 :00 every 6 l tablet (six) hours as needed for mild pain. zinc No 220mg QD Take 220 [facility] sulfate 12-18- mg by st (ZINCATE) 20:55: 00:00 mouth Hospit a 220 (50) mg 48 :00 daily. l capsule aspirin 325 2021- No 325mg QD Take 325 [facility] MG tablet 12-18- mg by st 20:55: 00:00 mouth [facility]ospita 48 :00 daily. l clonIDINE 2021- No .2mg Q.29618890 Take 1 [facility] HCl 12-18- [id number] tablet st (CATAPRES) 20:55: 00:00 3D (0.2 mg Hos acacia 0.2 MG 48 :00 total) by l tablet mouth 3 (three) times a day as needed. Hold if SBP<100, DBP<60 LIDOCAINE 2021- No 1{appli Q.58343236 Apply 1 [facility] HCL TOP 12-18- cation} [id number] applicatio [facility] 20:55: 00:00 3W n [facility]ospita 48 :00 topically l 3 (three) times a week. 3% Gel, Apply to right hemodialys is access every day shift every Mon, Wed,, Fri. For pain prior to dialysis lisinopril 2021- No 40mg QD Take 1 Meth inderjit (PRINIVIL) 12-18-20 tablet (40 st 40 mg 20:55: 00:00 mg total) Hospit a tablet 48 :00 by mouth l daily. Hold if SBP<110, DBP<60 ,do not hold prior to dilaysis tra[place] 2021- [place] [id number] 50mg Q6H Take 50 mg M [facility] (ULTRAM) 50 12-18-[address] mg tablet 20:55: 00:00 every 6 [facility]osp car[facility] 48 :00 (six) l hours as needed for moderate pain .Acute Pain. acetaminoph 2021- No 1000mg Q6H Take 1,000 [facility] en 12-18-[address] (TYLENOL) 20:55: 00:00 mouth Hospit a 500 MG 48 :00 every 6 l tablet (six) hours as needed for mild pain. zinc 2021- No 220mg QD Take 220 [facility] sulfate 12-18-[address] (ZINCATE) 20:55: 00:00 mouth Hospit a 220 (50) mg 48 :00 daily. l capsule melatonin 3 Yes 3mg QD Take 3 mg M [facility] mg tablet 12-[address] 20:55: nightly as Hospita 45 needed for l sleep. albuterol Yes 2.5mg Q.68402007 Take 2.5 [facility] sulfate -[id number] (PROVENTIL) 20:55: 3D nebulizati Hospita 2.5 mg/0.5 45 on 3 l mL solution (three) for times a nebulizatio day as n needed (congestio n/cough). amLODIPine Yes 10mg QD Take 1 Metho di (NORVASC) 9-20 tablet (10 st 10 mg 20:55: mg total) Hospita tablet 45 by mouth l daily. Hold for SBP<110/60 ,Hold prior to dialysis. lanolin/min Yes 1[drp] Q.5D Apply 1 M ethodi eral 9-[address] oil/petrola 20:55: eye 2 Hospi ta timo 45 (two) l (ARTIFICIAL times a TEARS OPHT) day. 0.4% carvedilol 2022-0 Yes 25mg Q.5D Take 25 mg M ethodi (COREG) 25 9-[address] MG tablet 20:55: (two) Hospita 45 times a l day with meals. Hold if SBP<100, DBP<60 lactulose 0 Yes 20g Q24H Take 20 g Met hodi 10 gram/15 9-[address] mL (15 mL) 20:55: daily as Hos acacia solution 45 needed l (constipat ion). LIDOCAINE Yes 1{appli Q12H Apply 1 Me thodi HCL TOP 9-20 cation} applicatio st 20:55: n Hospita 45 topically l every 12 (twelve) hours as needed. 3% Gel apply to right hemodialys is access as needed for pain omeprazole 0 Yes 20mg QD Take 20 mg M [facility]i (PriLOSEC) 9-[address] 20 MG 20:55: daily. Hospita capsule 45 l polyethylen Yes 17g QD Take 17 g M ethodi e glycol 9-[address] (MIRALAX) 20:55: daily. Hospit a 17 gram 45 l packet amino Yes 30mL Q.74978301 Take 30 mL [facility] acids/prote 9-20 [id number] [address] mouth [address] in 20:55: 3D (three) Hospita hydr/fiber 45 times a l (PRO-STAT day. RENAL CARE ORAL) senna Yes 2{tbl} Q12H Take 2 [facility] (SENOKOT) 9-[address] 8.6 mg 20:55: mouth Hospita tablet 45 every 12 l (twelve) hours. cetirizine Yes 10mg QD Take 10 mg M [facility]i (ZyrTEC) 10 9-[address] MG tablet 20:55: daily. Hospit a 45 l calcium 2021-0 2021- No 1334mg Q.46341181 Take 2 [facility] acetate 9-20 09-20 [id number] capsules s t (PHOSLO) 14:15: 00:00 3D (1,334 mg Hos acacia 667 mg 08 :00 total) by l capsule mouth 3 (three) times a day with meals. Give 15 minutes before meals calcium 0 2021- No 1334mg Q.52732666 Take 2 [facility] acetate 9-20 09-20 [id number] capsules s t (PHOSLO) 14:15: 00:00 3D (1,334 mg Hos acacia 667 mg 08 :00 total) by l capsule mouth 3 (three) times a day with meals. Give 15 minutes before meals calcium 2021-0 2021- No 1334mg Q.38105096 Take 2 [facility] acetate -20 -20 [id number] capsules s t (PHOSLO) 14:15: 00:00 3D (1,334 mg Hos acacia 667 mg 08 :00 total) by l capsule mouth 3 (three) times a day with meals. Give 15 minutes before meals calcium 2021-0 Yes 2001mg Q.09644581 Take 3 [facility] acetate,aure 9-[id number] sphat bind, 00:00: 3D (2,001 mg H ospita (PHOSLO) 00 total) by l 667 mg mouth 3 capsule (three) times a day with meals. Give 15 minutes before meals calcium 2021-0 Yes 2001mg Q.19144481 Take 3 [facility] acetate,aure 9-[id number] sphat bind, 00:00: 3D (2,001 mg H ospita (PHOSLO) 00 total) by l 667 mg mouth 3 capsule (three) times a day with meals. Give 15 minutes before meals calcium 2021-0 Yes 2001mg Q.59885295 Take 3 [facility] acetate,aure 9-[id number] sphat bind, 00:00: 3D (2,001 mg H ospita (PHOSLO) 00 total) by l 667 mg mouth 3 capsule (three) times a day with meals. Give 15 minutes before meals acetaminoph acetaminoph 2021-0 No 1 BID acetaminop [facility] en 300 en 300 9-13 hen 300 Medical mg-codeine mg-codeine 00:00: mg-codeine 30 mg 30 mg 00 30 mg tablet Take tablet Take tablet 1 tablet 1 tablet Take 1 twice a day twice a day tablet by oral by oral twice a route as route as day by needed for needed for oral route 30 days. 30 days. as needed for 30 days. acetaminoph 2021-0 Yes Q12H every 12 [facility] en-codeine 09-25 (twelve) Healt h (Tylenol w/ 16:44: hours. Codeine #3) 48 300-30 MG tablet atorvastati 2021-0 Yes QD 1 (one) UT n (Lipitor) 09-25 time each Hea lth 20 MG 16:44: day. tablet 48 calcium 2021-0 Yes calcium UT acetate 09-25 acetate(ph [facility] (Phoslo) 16:44: osphate 667 MG 48 binders) capsule 667 mg capsule 2 TID with meals and 1 at bedtime with snack carvedilol 2021-0 Yes Q12H every 12 UT (Coreg) 25 09-25 (twelve) Healt h MG tablet 16:44: hours. 48 cloNIDine 2021-0 Yes clonidine UT (Catapres-T 09-25 0.1 mg/24 Hea lth TS) 0.1 16:44: hr weekly MG/24HR 48 transderma l patch Apply 1 patch every week by transderma l route. ergocalcife 0 Yes 1{capsu 1 capsule. UT rol 09-25 le} Health (Vitamin 16:44: D-2) 1.25 48 MG (51001 UT) capsule ferrous 2021-0 Yes Q12H every 12 UT sulfate 325 09-25 (twelve) Heal th (65 Fe) MG 16:44: hours. tablet 48 fluticasone 2021-0 Yes QD 1 (one) UT (Flonase) - time each Healt h 50 MCG/ACT 16:44: day. nasal spray 48 folic acid 2021-0 Yes QD 1 (one) UT (Folvite) 1 - time each Hea lth MG tablet 16:44: day. 48 hydrALAZINE 2022-0 Yes Q8H every 8 UT (Apresoline 09-25 (eight) Healt h ) 100 MG 16:44: hours. tablet 48 lactulose 2021-0 Yes 30mL QD 30 mL 1 UT (Chronulac) 09-25 (one) time He alth 10 GM/15ML 16:44: each day. solution 48 lisinopril 2021-0 Yes QD 1 (one) UT 40 MG 09-25 time each Health tablet 16:44: day. 48 Patiromer Yes Veltassa UT Sorbitex 6-28 8.4 gram Health Calcium 16:44: oral (Veltassa) 48 powder 8.4 g pack packet one on non dialysis days wilfred, mehran, sat sertraline Yes QD 1 (one) UT (Zoloft) 6-28 time each Health 100 MG 16:44: day. [...] 12 l (twelve) hours. traMADol 2018-03 Yes [id number] 50mg Q6H Take 50 mg Me thodi [...] mg 15:53: daily. Hospita tablet 19 l melatonin 3 2018-03 Yes 3mg QD Take 3 mg M [facility]i mg tablet 1-[address] 15:53: nightly as Hospita 19 needed for l sleep. albuterol 2018-03 Yes 2.5mg Q.64742301 Take 2.5 [facility] sulfate 1-[id number] (PROVENTIL) 15:53: 3D nebulizati [...] OPHT) day. 0.4% calcium 2018-03 Yes 2001mg Q.33801080 Take 2,001 [facility] acetate 1-[id number] (PHOSLO) 15:53: 3D mouth 3 Hospit a 667 mg 19 (three) l capsule times a day with meals. Give 15 minutes before meals clonIDINE 2018-03 Yes .2mg Q.13646990 Take 0.2 [facility] HCl 1-[id number] (CATAPRES) 15:53: 3D mouth [...] acacia solution 19 needed l (constipat ion). lanolin/min 2018-03 Yes 1[drp] Q.5D Apply 1 M ethodi eral 1-[address] oil/petrola 15:53: eye 2 Hospi ta timo 19 (two) l (ARTIFICIAL times a TEARS OPHT) day. 0.4% LIDOCAINE 2018-03 Yes 1{appli Q12H Apply 1 Me thodi HCL TOP 1-30 cation} applicatio st 15:53: n Hospita 19 topically l every 12 (twelve) hours as needed. 3% Gel apply to right hemodialys is access as needed for pain LIDOCAINE 2018-03 Yes 1{appli Q.63997249 Apply 1 [facility] HCL TOP 1-30 cation} [id number] applicatio st 15:53: 3W n Hospita 19 [...] 19 l packet amino 2018-03 Yes 30mL Q.51705921 Take 30 mL [facility] acids/prote 1-30 [id number] [address] mouth [address] in 15:53: 3D (three) Hospita hydr/fiber 19 times a l (PRO-STAT day. RENAL CARE ORAL) senna 2018-03 Yes 2{tbl} Q12H Take 2 [facility] (SENOKOT) 1-[address] 8.6 mg 15:53: mouth Hospita tablet 19 every 12 l (twelve) hours. traMADol 2018-03 Yes [id number] 50mg Q6H Take 50 mg Me thodi [...] 220 (50) mg 19 daily. l capsule calcium 2018-03 Yes 2001mg Q.71848622 Take 2,001 [facility] acetate 1-[id number] (PHOSLO) 15:53: 3D mouth 3 Hospit a 667 mg 19 (three) l capsule times a day with meals. Give 15 minutes before meals cetirizine 2018-03 Yes 10mg QD Take 10 mg M [facility]i (ZyrTEC) 10 1-[address] MG tablet 15:53: daily. Hospit a 19 l clonIDINE 2018-03 Yes .2mg Q.49413676 Take 0.2 [facility] HCl 1-[id number] (CATAPRES) 15:53: 3D mouth [...] needed for pain LIDOCAINE 2018-03 Yes 1{appli Q.65533751 Apply 1 [facility] HCL TOP 1-30 cation} [id number] applicatio st 15:53: 3W n Hospita 19 [...] 19 l packet amino 2018-03 Yes 30mL Q.72105495 Take 30 mL [facility] acids/prote 1-30 [id number] [address] mouth [address] in 15:53: 3D (three) Hospita hydr/fiber 19 times a l (PRO-STAT day. RENAL CARE ORAL) senna 2018-03 Yes 2{tbl} Q12H Take 2 [facility] (SENOKOT) 1-[address] 8.6 mg 15:53: mouth Hospita tablet 19 every 12 l (twelve) hours. traMADol 2018-03 Yes [id number] 50mg Q6H Take 50 mg Me thodi [...] for l sleep. albuterol 2018-03 Yes 2.5mg Q.19023915 Take 2.5 [facility] sulfate 1-[id number] (PROVENTIL) 15:53: 3D nebulizati [...] OPHT) day. 0.4% calcium 2018-03 Yes 2001mg Q.44396690 Take 2,001 [facility] acetate 1-[id number] (PHOSLO) 15:53: 3D mouth 3 Hospit a 667 mg 19 (three) l capsule times a day with meals. Give 15 minutes before meals clonIDINE 2018-03 Yes .2mg Q.93432164 Take 0.2 [facility] HCl 1-[id number] (CATAPRES) 15:53: 3D mouth [...] needed for pain LIDOCAINE 2018-03 Yes 1{appli Q.88136221 Apply 1 [facility] HCL TOP 1-30 cation} [id number] applicatio [address] 15:53: 3W n Hospita 19 [...] 19 l packet amino 2018-03 Yes 30mL Q.20015418 Take 30 mL [facility] acids/prote 1-30 [id number] by mouth [address] in 15:53: 3D (three) Hospita hydr/fiber 19 times a l (PRO-STAT day. RENAL CARE ORAL) senna 2018-03 Yes 2{tbl} Q12H Take 2 [facility] (SENOKOT) 1-[address] 8.6 mg 15:53: mouth Hospita tablet 19 every 12 l (twelve) hours. traMADol 2018-03 Yes [id number] 50mg Q6H Take 50 mg Me thodi [...] for l sleep. albuterol 2018-03 Yes 2.5mg Q.00379771 Take 2.5 [facility] sulfate 1-[id number] (PROVENTIL) 15:53: 3D nebulizati [...] OPHT) day. 0.4% calcium 2018-03 Yes 2001mg Q.08823763 Take 2,001 [facility] acetate 1-[id number] (PHOSLO) 15:53: 3D mouth 3 Hospit a 667 mg 19 (three) l capsule times a day with meals. Give 15 minutes before meals clonIDINE 2018-03 Yes .2mg Q.20321710 Take 0.2 [facility] HCl 1-[id number] (CATAPRES) 15:53: 3D mouth [...] needed for pain LIDOCAINE 2018-03 Yes 1{appli Q.26094948 Apply 1 [facility] HCL TOP 1-30 cation} [id number] applicatio st 15:53: 3W n Hospita 19 [...] 19 l packet amino 2018-03 Yes 30mL Q.47749117 Take 30 mL [facility] acids/prote 1-30 [id number] by mouth [address] in 15:53: 3D (three) Hospita hydr/fiber 19 times a l (PRO-STAT day. RENAL CARE ORAL) senna 2018-03 Yes 2{tbl} Q12H Take 2 [facility] (SENOKOT) 1-[address] 8.6 mg 15:53: mouth Hospita tablet 19 every 12 l (twelve) hours. traMADol 2018-03 Yes [id number] 50mg Q6H Take 50 mg Me thodi [...] for l sleep. albuterol 2018-03 Yes 2.5mg Q.59407460 Take 2.5 [facility] sulfate 1-[id number] (PROVENTIL) 15:53: 3D nebulizati [...] OPHT) day. 0.4% albuterol 2018-03 Yes 2.5mg Q.98311774 Take 2.5 [facility] sulfate 1-[id number] (PROVENTIL) 15:53: 3D nebulizati Hospita 2.5 mg/0.5 19 on 3 l mL solution (three) for times a nebulizatio day as n needed (congestio n/cough). calcium 2018-03 Yes 2001mg Q.64109532 Take 2,001 [facility] acetate 1-[id number] (PHOSLO) 15:53: 3D mouth 3 Hospit a 667 mg 19 (three) l capsule times a day with meals. Give 15 minutes before meals clonIDINE 2018-03 Yes .2mg Q.86469570 Take 0.2 [facility] HCl 1-[id number] (CATAPRES) 15:53: 3D mouth [...] needed for pain LIDOCAINE 2018-03 Yes 1{appli Q.29974970 Apply 1 [facility] HCL TOP 1-30 cation} [id number] applicatio st 15:53: 3W n Hospita 19 [...] 19 l packet amino 2018-03 Yes 30mL Q.95204802 Take 30 mL [facility] acids/prote 1-30 [id number] [address] mouth [address] in 15:53: 3D (three) Hospita hydr/fiber 19 times a l (PRO-STAT day. RENAL CARE ORAL) traMADol 2018-03 Yes 50mg Take 50 mg [...] QD Take [address] [facility] (COUMADIN) -21 by mouth [facility] 5 MG tablet 22:13: daily. Medi ellyn 44 [place] zinc 2018-03 Yes 220mg QD Take [address] [facility] [address] sulfate 1-21 mg by [facility] (ZINCATE) 22:13: mouth Medical 220 (50) mg 44 daily. [place] capsule cetirizine 2018-03 Yes 10mg QD Take [address] (ZYRTEC) 10 -21 by mouth [facility] MG tablet 22:13: daily. Medica l 44 [place] lidocaine 3 2018-03 Yes administrat 1{appli Apply [address] [facility] % Crea 1-21 ion of cation} applicatio [facility] 22:13: local n Medical [address] amLODIPine 2018-03 Yes hypertensio 5mg QD Take [address] [facility] (NORVASC) 1-21 n by mouth [facility] 10 MG 22:13: daily. Medical tablet 44 [place] hydroxyprop 2018-03 Yes dry eye 1[drp] Q.5D Place [address] [facility] yl 1-21 drop into [facility] methylcellu 22:13: both eyes M edical lose 44 2 (two) [place] (ISOPTO times TEARS) 2.5 daily % Artificial ophthalmic tears solution solution 0.4% (hypromell ose) . aspirin 325 2018-03 Yes acute 325mg QD Take [address] [facility] [address] MG tablet 1-21 myocardial mg by Mike es 22:13: infarction mouth Medica l 44 daily. [place] calcium 2018-03 Yes 667mg Q.52413506 Take [address] acetate 1-21 [id number] mg by [facility] (PHOSLO) 22:13: 3D mouth 3 Medica l 667 mg 44 (three) Center capsule times daily. amLODIPine 2018-03 Yes hypertensio 5mg QD Take [address] [facility] (NORVASC) 1-21 n by mouth [facility] 10 MG 22:13: daily. Medical tablet 44 Center cloNIDine 2018-03 Yes hypertensio .2mg Q.82667300 Take 0.[address] [facility] [address] HCl 1-21 n [id number] mg by [facility] (CATAPRES) 22:13: 3D mouth [...] 22:13: daily. Medic al MG tablet 44 [place] melatonin 3 2018-03 Yes 3mg Take 3 [...] Center gram/dose powder amino 2018-03 Yes 30mL Q.[id number] Take [address] [facility] [address] acids-prote 1-21 [id number] mLs by [facility] in 22:13: 3D mouth [...] (six) Center hours as needed for Pain. hydroxyprop 2018-03 Yes dry eye 1[drp] Q.5D Place [address] [facility] yl 1-21 drop into [facility] methylcellu 22:13: both eyes M edical lose 44 2 (two) Center (ISOPTO times TEARS) 2.5 daily % Artificial ophthalmic tears solution solution 0.4% (hypromell ose) . acetaminoph 2018-03 Yes 1000mg Take 1,000 [facility] [...] % Crea 1-21 ion of cation} applicatio [facility] 22:13: local n Medical [address] aspirin 325 2018-03 Yes acute 325mg QD Take [address] [facility] MG tablet 1-21 myocardial mg by Mike es 22:13: infarction mouth Medica l 44 daily. Center calcium 2018-03 Yes 667mg Q.61738069 Take [address] acetate 1-21 [id number] mg by [facility] (PHOSLO) 22:13: 3D mouth 3 Medica l 667 mg 44 (three) Center capsule times daily. cloNIDine 2018-03 Yes hypertensio .2mg Q.99047536 Take 0.[address] HCl 1-21 n [id number] mg by [facility] (CATAPRES) 22:13: 3D mouth [...] Take [address] (PRILOSEC -21 by mouth [facility] OTC) 20 MG 22:13: daily. Medic al tablet 44 Center polyethylen 2018-03 Yes 17g QD Take [address] e glycol 1-21 by mouth [facility] (GLYCOLAX) 22:13: daily. Medic al 17 44 Center gram/dose powder amino 2018-03 Yes 30mL Q.18960452 Take [address] acids-prote 1-21 [id number] mLs by [facility] in 22:13: 3D mouth [...] (six) hours as needed for Pain. warfarin 2019-1 Yes 5mg QD Take 5 mg [facility] [...] 22:13: infarction mouth Medica l 44 daily. [place] calcium 2018-03 Yes 667mg Q.52569706 Take [address] acetate 1-21 [id number] mg by [facility] (PHOSLO) 22:13: 3D mouth 3 Medica l 667 mg 44 (three) Center capsule times daily. cloNIDine 2018-03 Yes hypertensio .2mg Q.98444933 Take 0.[address] HCl 1-21 n [id number] mg by [facility] (CATAPRES) 22:13: 3D mouth [...] Center gram/dose powder amino 2018-03 Yes 30mL Q.79331005 Take [address] [facility] [address] acids-prote 1-21 [id number] mLs by [facility] in 22:13: 3D mouth [...] mouth Medical 220 (50) mg 44 daily. [place] capsule cetirizine 2018-03 Yes 10mg QD Take [...] 44 daily. Center calcium 2018-03 Yes 667mg Q.61266063 Take [address] acetate 1-21 [id number] mg by [facility] (PHOSLO) 22:13: 3D mouth 3 Medica l 667 mg 44 (three) Center capsule times daily. cloNIDine 2018-03 Yes hypertensio .2mg Q.86807770 Take 0.[address] HCl 1-21 n [id number] mg by [facility] (CATAPRES) 22:13: 3D mouth [...] Center gram/dose powder amino 2018-03 Yes 30mL Q.63801250 Take [address] acids-prote 1-21 [id number] mLs by [facility] in 22:13: 3D mouth [...] 44 daily. Center calcium 2018-03 Yes 667mg Q.55191322 Take [address] acetate 1-21 [id number] mg by [facility] (PHOSLO) 22:13: 3D mouth 3 Medica l 667 mg 44 (three) Center capsule times daily. cloNIDine 2018-03 Yes hypertensio .2mg Q.76230186 Take 0.[address] HCl 1-21 n [id number] mg by [facility] (CATAPRES) 22:13: 3D mouth [...] Center gram/dose powder amino 2018-03 Yes 30mL Q.84010078 Take [address] acids-prote 1-21 [id number] mLs by [facility] in 22:13: 3D mouth [...] 44 daily. Center calcium 2018-03 Yes 667mg Q.91806385 Take [address] acetate 1-21 [id number] mg by [facility] (PHOSLO) 22:13: 3D mouth 3 Medica l 667 mg 44 (three) Center capsule times daily. cloNIDine 2018-03 Yes hypertensio .2mg Q.44980061 Take 0.[address] HCl 1-21 n [id number] mg by [facility] (CATAPRES) 22:13: 3D mouth [...] Center gram/dose powder amino 2018-03 Yes 30mL Q.26164087 Take [address] acids-prote 1-21 [id number] mLs by [facility] in 22:13: 3D mouth [...] [address] sulfate 1-21 mg by [employer] (ZINCATE) 22:13: mouth Medical 220 (50) mg 44 daily. Center capsule cetirizine 2018-03 Yes 10mg QD Take [address] (ZYRTEC) 10 1-21 by mouth [facility] MG tablet 22:13: daily. Medica l 44 Center lidocaine 3 2018-03 Yes administrat 1{appli Apply [address] [facility] % Crea 1-21 ion of cation} applicatio [facility] 22:13: local n Medical 44 anesthesia [...] 44 daily. Center calcium 2018-03 Yes 667mg Q.92850750 Take [address] acetate 1-21 [id number] mg by [facility] (PHOSLO) 22:13: 3D mouth 3 Medica l 667 mg 44 (three) Center capsule times daily. cloNIDine 2018-03 Yes hypertensio .2mg Q.82486647 Take 0.[address] HCl 1-21 n [id number] mg by [facility] (CATAPRES) 22:13: 3D mouth [...] Center gram/dose powder amino 2018-03 Yes 30mL Q.18843059 Take [address] acids-prote 1-21 [id number] mLs by [facility] in 22:13: 3D mouth 3 Medical hydr-fiber 44 (three) Center 15 gram- times 100 kcal/30 daily. mL LiPk senna 2018-03 Yes 2{tbl} Q.5D Take [address] (SENOKOT) 1-21 tablets by Luke s 8.6 mg 22:13: mouth 2 Medical tablet 44 (two) Center times daily. aspirin 81 2018-0 Yes 81mg Take 1 [facility] mg chewable 1-26 tablet by ity of tablet 00:00: mouth [place] 00 daily. Medical Branch aspirin 81 2018-0 Yes 81mg Take 1 [facility]ive rs mg chewable 1-26 tablet by ity of tablet 00:00: mouth [place] 00 daily. Medical Branch aspirin 81 2018-0 Yes 81mg Take 1 [facility]ive rs mg chewable 1-26 tablet by ity of tablet 00:00: mouth [place] 00 daily. Medical Branch aspirin 81 2018-0 Yes 81mg Take 1 Unive rs mg chewable 1-26 tablet by ity of tablet 00:00: mouth [place] 00 daily. Medical Branch multivitami 2018-0 Yes 1{capsu Take 1 U nivers n capsule 1-25 le} capsule by ity of 17:56: mouth [place] 44 daily. Medical Branch pantoprazol 2017-0 Yes 40mg Take 1 Univ ers e 40 mg EC 1-25 tablet by ity of tablet 00:00: mouth [place] 00 daily. Medical Branch amLODIPine 0 Yes 10mg Take 1 [facility] 10 mg 1-25 tablet by ity of tablet 00:00: mouth [place] 00 daily. Medical Branch atorvastati 0 Yes 40mg Take 1 Univ ers n 40 mg 1-25 tablet ity of tablet 00:00: through [place] 00 enteral Medical tube at Branch bedtime. carvedilol 2017-0 Yes 25mg Take 1 [facility] rs 25 mg 1-25 tablet by ity of tablet 00:00: mouth 2 [place] 00 (two) Medical times Branch daily with meals. hydralAZINE 0 Yes 10mg Take 1 Univ ers 10 mg 1-25 tablet by ity of tablet 00:00: mouth [place] 00 every 8 Medical (eight) Branch hours. isosorbide 2018-0 Yes [id number] 30mg Take 1 [facility] mononitrate 1-25 tablet by ity of (IMDUR) 30 00:00: mouth [place] mg 24 hr 00 daily. Medical tablet Branch sevelamer 2017-0 Yes 1600mg Take 2 Univ ers 800 mg 1-25 tablets by ity of tablet 00:00: mouth 3 [place] 00 (three) Medical times Branch daily with meals. pantoprazol 2018-0 Yes 40mg Take 1 Univ ers e 40 mg EC 1-25 tablet by ity of tablet 00:00: mouth [place] 00 daily. Medical Branch amLODIPine 2018-0 Yes 10mg Take 1 [facility]ive rs 10 mg 1-25 tablet by ity of tablet 00:00: mouth [place] 00 daily. Medical Branch atorvastati 2018-0 Yes 40mg Take 1 Univ ers n 40 mg 1-25 tablet ity of tablet 00:00: through [place] 00 enteral Medical tube at Branch bedtime. carvedilol 2018-0 Yes 25mg Take 1 [facility] rs 25 mg 1-25 tablet by ity of tablet 00:00: mouth 2 00 (two) Medical times Branch daily with meals. hydralAZINE 2018-0 Yes 10mg Take 1 Univ ers 10 mg 1-25 tablet by ity of tablet 00:00: mouth [place] 00 every 8 Medical (eight) Branch hours. isosorbide 2018-0 Yes [id number] 30mg Take 1 [facility] mononitrate 1-25 tablet by ity of (IMDUR) 30 00:00: mouth [place] mg 24 hr 00 daily. Medical tablet Branch sevelamer 2018-0 Yes 1600mg Take 2 Univ ers 800 mg 1-25 tablets by ity of tablet 00:00: mouth 3 00 (three) Medical times Branch daily with meals. pantoprazol 2018-0 Yes 40mg Take 1 Univ ers e 40 mg EC 1-25 tablet by ity of tablet 00:00: mouth [place] 00 daily. Medical Branch amLODIPine 2018-0 Yes 10mg Take 1 [facility]ive rs 10 mg 1-25 tablet by ity of tablet 00:00: mouth [place] 00 daily. Medical Branch atorvastati 2018-0 Yes 40mg Take 1 Univ ers n 40 mg 1-25 tablet ity of tablet 00:00: through [place] 00 enteral Medical tube at Branch bedtime. carvedilol 2018-0 Yes 25mg Take 1 [facility]ive [facility] 25 mg 1-25 tablet by ity of tablet 00:00: mouth 2 00 (two) Medical times Branch daily with meals. hydralAZINE 2018-0 Yes 10mg Take 1 Univ ers 10 mg 1-25 tablet by ity of tablet 00:00: mouth [place] 00 every 8 Medical (eight) Branch hours. isosorbide 2018-0 Yes [id number] 30mg Take 1 [facility] mononitrate 1-25 tablet by ity of (IMDUR) 30 00:00: mouth [place] mg 24 hr 00 daily. Medical tablet Branch sevelamer 2018-0 Yes 1600mg Take 2 Univ ers 800 mg 1-25 tablets by ity of tablet 00:00: mouth 3 (three) Medical times Branch daily with meals. pantoprazol 2018-0 Yes 40mg Take 1 Univ ers e 40 mg EC 1-25 tablet by ity of tablet 00:00: mouth 00 daily. Medical Branch amLODIPine 2018-0 Yes 10mg Take 1 [facility] 10 mg 1-25 tablet by ity of tablet 00:00: mouth 00 daily. Medical Branch atorvastati 2018-0 Yes 40mg Take 1 Univ ers n 40 mg 1-25 tablet ity of tablet 00:00: through enteral Medical tube at Branch bedtime. carvedilol 2018-0 Yes 25mg Take 1 [facility] rs 25 mg 1-25 tablet by [facility] of tablet 00:00: mouth (two) Medical times Branch daily with meals. hydralAZINE 2018-0 Yes 10mg Take 1 [facility] ers 10 mg 1-25 tablet by it[facility] of tablet 00:00: mouth 00 every 8 Medical (eight) Branch hours. isosorbide 2018-0 Yes [id number] 30mg Take 1 [facility] mononitrate 1-25 tablet by ity of (IMDUR) 30 00:00: mouth [place] mg 24 hr 00 daily. Medical tablet Branch sevelamer 2018-0 Yes 1600mg Take 2 [facility] ers 800 mg 1-25 tablets by ity of tablet 00:00: mouth (three) Medical times Branch daily with meals. magnesium 2017-0 Yes 800mg Take 2 [facility] rs oxide 400 4-04 tablets by [facility] of mg tablet 00:00: mouth (two) Medical times Branch daily. magnesium 2017-0 Yes 800mg Take 2 [facility] rs oxide 400 4-04 tablets by ity of mg tablet 00:00: mouth (two) Medical times Branch daily. magnesium 2017-0 Yes 800mg Take 2 [facility] rs oxide 400 4-04 tablets by ity of mg tablet 00:00: mouth (two) Medical times Branch daily. magnesium 2017-0 Yes 800mg Take 2 [facility] rs oxide 400 4-04 tablets by ity of mg tablet 00:00: mouth 2 [place] 00 (two) Medical times Branch daily. ergocalcife ergocalcife No ergocalcif [facility] (vitamin (vitamin (vitamin D2) 1,250 D2) 1,250 D2) 1,250 mcg (50,000 mcg (50,000 mcg unit) unit) (50,000 capsule capsule unit) Take 1 Take 1 capsule capsule capsule Take 1 every week every week capsule by oral by oral every week route. route. by oral route. ferrous ferrous No 1 BID ferrous [facility] sulfate 325 sulfate 325 sulfate Medical mg (65 mg mg (65 mg 325 mg (65 iron) iron) mg iron) tablet Take tablet Take tablet 1 tablet 1 tablet Take 1 twice a day twice a day tablet by oral by oral twice a route. route. day by oral route. fluticasone fluticasone No 1spray( Q1D fluticason [facility] propionate propionate s) e Med ical 50 50 propionate mcg/actuati mcg/actuati 50 on nasal on nasal mcg/actuat spray,suspe spray,suspe ion nasal nsion [place] nsion [place] spray,susp 1 spray 1 spray ension every day every day [place] 1 by nasal by nasal spray route for route for every day 30 days. 30 days. by nasal route for 30 days. folic acid folic acid No folic acid [facility] 1 mg tablet 1 mg tablet 1 mg M edical Take 1 Take 1 tablet tablet tablet Take 1 every day every day tablet by oral by oral every day route for route for by oral 30 days. 30 days. route for 30 days. hydralazine hydralazine No hydralazin [facility] 100 mg 100 mg e 100 mg Medical tablet Take tablet Take tablet 1 tablet 3 1 tablet 3 Take 1 times a day times a day tablet 3 by oral by oral times a route for route for day by 30 days. 30 days. oral route for 30 days. lactulose lactulose No lactulose [facility] 10 gram/15 10 gram/15 10 gram/15 Medical mL oral mL oral mL oral solution solution solution Take 30 mL Take 30 mL Take 30 mL every day every day every day by oral by oral by oral route as route as route as needed for needed for needed for 15 days. 15 days. 15 days. Lokelma 5 Lokelma 5 No Lokelma 5 [facility] gram oral gram oral gram oral Medical powder powder powder packet one packet one packet one a day on a day on a day on odd days odd days odd days Sun, Tues, Sun, Tues, Sun, Tues, Thur, Sat Thur, Sat Thur, Sat omeprazole omeprazole No omeprazole [facility] 20 mg 20 mg 20 mg Medical capsule,del capsule,del capsule,de ayed ayed layed release release release Take 1 Take 1 Take 1 capsule capsule capsule every day every day every day by oral by oral by oral route. route. route. sertraline sertraline No sertraline [facility] 100 mg 100 mg 100 mg Medical tablet Take tablet Take tablet 1 tablet 1 tablet Take 1 every day every day tablet by oral by oral every day route at route at by oral bedtime for bedtime for route at 30 days. 30 days. bedtime for 30 days. vancomycin vancomycin No vancomycin [facility] 750 mg 750 mg 750 mg Medical intravenous intravenous intravenou solution solution s solution 750 mg once 750 mg once 750 mg a day at a day at once a day dialysis dialysis at [facility] [place] via 8.4 gram 8.4 gram 8.4 gram Med ical oral powder oral powder oral packet ONE packet ONE powder PACKET PACKET packet ONE MIXED WITH MIXED WITH PACKET 3OZ OF 3OZ OF MIXED WITH WATER TO BE WATER TO BE 3OZ OF GIVEN ON T, GIVEN ON T, WATER TO TH, S TH, S BE GIVEN (NON-DIALYS (NON-DIALYS ON T, TH, IS DAYS) IS DAYS) S (NON-DIALY SIS DAYS) acetaminoph acetaminoph No 1 BID acetaminop [facility] en 300 en 300 hen 300 Medical mg-codeine mg-codeine mg-codeine 30 mg 30 mg 30 mg tablet Take tablet Take tablet 1 tablet 1 tablet Take 1 twice a day twice a day tablet by oral by oral twice a route as route as day by needed for needed for oral route 30 days. 30 days. as needed for 30 days. amlodipine amlodipine No amlodipine [facility] 10 mg 10 mg 10 mg Medical tablet Take tablet Take tablet 1 tablet 1 tablet Take 1 every day every day tablet by oral by oral every day route for route for by oral 30 days. 30 days. route for 30 days. aspirin 81 aspirin 81 No 1 Q1D aspirin 81 [facility] mg mg mg Medical tablet,joy tablet,joy tablet,del yed release yed release ayed Take 1 Take 1 release tablet tablet Take 1 every day every day tablet by oral by oral every day route for route for by oral 30 days. 30 days. route for 30 days. atorvastati atorvastati No atorvastat [facility] n 20 mg n 20 mg in 20 mg Medic al tablet Take tablet Take tablet 1 tablet 1 tablet Take 1 every day every day tablet by oral by oral every day route for route for by oral 30 days. 30 days. route for 30 days. calcium calcium No 3 TID calcium [facility] acetate 667 acetate 667 acetate Medical mg tablet mg tablet 667 mg Take 3 Take 3 tablet tablets 3 tablets 3 Take 3 times a day times a day tablets 3 by oral by oral times a route with route with day by meals for meals for oral route 30 days. 30 days. with meals for 30 days. calcium calcium No calcium [facility] acetate(aure acetate(aure acetate(ph Medical sphate sphate osphate binders) binders) binders) 667 mg 667 mg 667 mg capsule 2 capsule 2 capsule 2 TID with TID with TID with meals and 1 meals and 1 meals and at bedtime at bedtime 1 at with snack with snack bedtime with snack carvedilol carvedilol No 1 BID carvedilol [facility] 25 mg 25 mg 25 mg Medical tablet Take tablet Take tablet 1 tablet 1 tablet Take 1 twice a day twice a day tablet by oral by oral twice a route. route. day by oral route. clonidine clonidine No 1patch( Q1W clonidine [facility] 0.1 mg/24 0.1 mg/24 es) 0.1 mg/24 Medical hr weekly hr weekly hr weekly transdermal transdermal transderma patch Apply patch Apply l patch 1 patch 1 patch Apply 1 every week every week patch by by every week transdermal transdermal by route. route. transderma l route. ergocalcife ergocalcife No ergocalcif [facility] (vitamin (vitamin (vitamin D2) 1,250 D2) 1,250 D2) 1,250 mcg (50,000 mcg (50,000 mcg unit) unit) (50,000 capsule capsule unit) Take 1 Take 1 capsule capsule capsule Take 1 every week every week capsule by oral by oral every week route. route. by oral route. ferrous ferrous No 1 BID ferrous [facility] sulfate 325 sulfate 325 sulfate Medical mg (65 mg mg (65 mg 325 mg (65 iron) iron) mg iron) tablet Take tablet Take tablet 1 tablet 1 tablet Take 1 twice a day twice a day tablet by oral by oral twice a route. route. day by oral route. fluticasone fluticasone No 1spray( Q1D fluticason [facility] propionate propionate s) e Med ical 50 50 propionate mcg/actuati mcg/actuati 50 on nasal on nasal mcg/actuat spray,suspe spray,suspe ion nasal nsion [place] nsion [place] spray,susp 1 spray 1 spray ension every day every day [place] 1 by nasal by nasal spray route for route for every day 30 days. 30 days. by nasal route for 30 days. folic acid folic acid No folic acid [facility] 1 mg tablet 1 mg tablet 1 mg M edical Take 1 Take 1 tablet tablet tablet Take 1 every day every day tablet by oral by oral every day route for route for by oral 30 days. 30 days. route for 30 days. hydralazine hydralazine No hydralazin [facility] 100 mg 100 mg e 100 mg Medical tablet Take tablet Take tablet 1 tablet 3 1 tablet 3 Take 1 times a day times a day tablet 3 by oral by oral times a route for route for day by 30 days. 30 days. oral route for 30 days. lactulose lactulose No lactulose [facility] 10 gram/15 10 gram/15 10 gram/15 Medical mL oral mL oral mL oral solution solution solution Take 30 mL Take 30 mL Take 30 mL every day every day every day by oral by oral by oral route as route as route as needed for needed for needed for 15 days. 15 days. 15 days. Lokelma 5 Lok[facility] 5 No Lokelma 5 [facility] gram oral gram oral gram oral Medical powder powder powder packet one packet one packet one a day on a day on a day on odd days odd days odd days Sun, Tues, Sun, Tues, Sun, Tues, Thur, Sat Thur, Sat Thur, Sat omeprazole omeprazole No omeprazole [facility] 20 mg 20 mg 20 mg Medical capsule,del capsule,del capsule,de ayed ayed layed release release release Take 1 Take 1 Take 1 capsule capsule capsule every day every day every day by oral by oral by oral route. route. route. sertraline sertraline No sertraline [facility] 100 mg 100 mg 100 mg Medical tablet Take tablet Take tablet 1 tablet 1 tablet Take 1 every day every day tablet by oral by oral every day route at route at by oral bedtime for bedtime for route at 30 days. 30 days. bedtime for 30 days. vancomycin vancomycin No vancomycin [facility] 750 mg 750 mg 750 mg Medical intravenous intravenous intravenou solution solution s solution 750 mg once 750 mg once 750 mg a day at a day at once a day dialysis [facility] [place] via 8.4 gram 8.4 gram 8.4 gram Med ical oral powder oral powder oral packet ONE packet ONE powder PACKET PACKET packet ONE MIXED WITH MIXED WITH PACKET 3OZ OF 3OZ OF MIXED WITH WATER TO BE WATER TO BE 3OZ OF GIVEN ON T, GIVEN ON T, WATER TO TH, S TH, S BE GIVEN (NON-DIALYS (NON-DIALYS ON T, TH, IS DAYS) IS DAYS) S (NON-DIALY SIS DAYS) acetaminoph acetaminoph No 1 BID acetaminop [facility] en 300 en 300 hen 300 Medical mg-codeine mg-codeine mg-codeine 30 mg 30 mg 30 mg tablet Take tablet Take tablet 1 tablet 1 tablet Take 1 twice a day twice a day tablet by oral by oral twice a route as route as day by needed for needed for oral route 30 days. 30 days. as needed for 30 days. amlodipine amlodipine No amlodipine [facility] 10 mg 10 mg 10 mg Medical tablet Take tablet Take tablet 1 tablet 1 tablet Take 1 every day every day tablet by oral by oral every day route for route for by oral 30 days. 30 days. route for 30 days. aspirin 81 aspirin 81 No 1 Q1D aspirin 81 [facility] mg mg mg Medical tablet,joy tablet,joy tablet,del yed release yed release ayed Take 1 Take 1 release tablet tablet Take 1 every day every day tablet by oral by oral every day route for route for by oral 30 days. 30 days. route for 30 days. atorvastati atorvastati No atorvastat [facility] n 20 mg n 20 mg in 20 mg Medic al tablet Take tablet Take tablet 1 tablet 1 tablet Take 1 every day every day tablet by oral by oral every day route for route for by oral 30 days. 30 days. route for 30 days. calcium calcium No 3 TID calcium [facility] acetate 667 acetate 667 acetate Medical mg tablet mg tablet 667 mg Take 3 Take 3 tablet tablets 3 tablets 3 Take 3 times a day times a day tablets 3 by oral by oral times a route with route with day by meals for meals for oral route 30 days. 30 days. with meals for 30 days. calcium calcium No calcium [facility] acetate(aure acetate(aure acetate(ph Medical sphate sphate osphate binders) binders) binders) 667 mg 667 mg 667 mg capsule 2 capsule 2 capsule 2 TID with TID with TID with meals and 1 meals and 1 meals and at bedtime at bedtime 1 at with snack with snack bedtime with snack carvedilol carvedilol No 1 BID carvedilol [facility] 25 mg 25 mg 25 mg Medical tablet Take tablet Take tablet 1 tablet 1 tablet Take 1 twice a day twice a day tablet by oral by oral twice a route. route. day by oral route. clonidine clonidine No 1patch( Q1W clonidine [facility] 0.1 mg/24 0.1 mg/24 es) 0.1 mg/24 Medical hr weekly hr weekly hr weekly transdermal transdermal transderma patch Apply patch Apply l patch 1 patch 1 patch Apply 1 every week every week patch by by every week transdermal transdermal by route. route. transderma l route. ergocalcife ergocalcife No ergocalcif [facility] (vitamin (vitamin (vitamin D2) 1,250 D2) 1,250 D2) 1,250 mcg (50,000 mcg (50,000 mcg unit) unit) (50,000 capsule capsule unit) Take 1 Take 1 capsule capsule capsule Take 1 every week every week capsule by oral by oral every week route. route. by oral route. ferrous ferrous No 1 BID ferrous [facility] sulfate 325 sulfate 325 sulfate Medical mg (65 mg mg (65 mg 325 mg (65 iron) iron) mg iron) tablet Take tablet Take tablet 1 tablet 1 tablet Take 1 twice a day twice a day tablet by oral by oral twice a route. route. day by oral route. fluticasone fluticasone No 1spray( Q1D fluticason [facility] propionate propionate s) e Med ical 50 50 propionate mcg/actuati mcg/actuati 50 on nasal on nasal mcg/actuat spray,suspe spray,suspe ion nasal nsion [place] nsion [place] spray,susp 1 spray 1 spray ension every day every day [place] 1 by nasal by nasal spray route for route for every day 30 days. 30 days. by nasal route for 30 days. folic acid folic acid No folic acid [facility] 1 mg tablet 1 mg tablet 1 mg M edical Take 1 Take 1 tablet tablet tablet Take 1 every day every day tablet by oral by oral every day route for route for by oral 30 days. 30 days. route for 30 days. hydralazine hydralazine No hydralazin [facility] 100 mg 100 mg e 100 mg Medical tablet Take tablet Take tablet 1 tablet 3 1 tablet 3 Take 1 times a day times a day tablet 3 by oral by oral times a route for route for day by 30 days. 30 days. oral route for 30 days. lactulose lactulose No lactulose [facility] 10 gram/15 10 gram/15 10 gram/15 Medical mL oral mL oral mL oral solution solution solution Take 30 mL Take 30 mL Take 30 mL every day every day every day by oral by oral by oral route as route as route as needed for needed for needed for 15 days. 15 days. 15 days. Lokelma 5 Lok[facility] 5 No Lokelma 5 [facility] gram oral gram oral gram oral Medical powder powder powder packet one packet one packet one a day on a day on a day on odd days odd days odd days Sun, Tues, Sun, Tues, Sun, Tues, Thur, Sat Thur, Sat Thur, Sat melatonin melatonin No 1 Q1D melatonin [facility] 10 mg 10 mg 10 mg Medical tablet Take tablet Take tablet 1 tablet 1 tablet Take 1 every day every day tablet by oral by oral every day route at route at by oral bedtime for bedtime for route at 14 days. 14 days. bedtime for 14 days. omeprazole omeprazole No omeprazole [facility] 20 mg 20 mg 20 mg Medical capsule,del capsule,del capsule,de ayed ayed layed release release release Take 1 Take 1 Take 1 capsule capsule capsule every day every day every day by oral by oral by oral route. route. route. sertraline sertraline No sertraline [facility] 100 mg 100 mg 100 mg Medical tablet Take tablet Take tablet 1 tablet 1 tablet Take 1 every day every day tablet by oral by oral every day route at route at by oral bedtime for bedtime for route at 30 days. 30 days. bedtime for 30 days. vancomycin vancomycin No vancomycin [facility] 750 mg 750 mg 750 mg Medical intravenous intravenous intravenou solution solution s solution 750 mg once 750 mg once 750 mg a day at a day at once a day dialysis dialysis at dialysis [facility] [place] via 8.4 gram 8.4 gram 8.4 gram Med ical oral powder oral powder oral packet ONE packet ONE powder PACKET PACKET packet ONE MIXED WITH MIXED WITH PACKET 3OZ OF 3OZ OF MIXED WITH WATER TO BE WATER TO BE 3OZ OF GIVEN ON T, GIVEN ON T, WATER TO TH, S TH, S BE GIVEN (NON-DIALYS (NON-DIALYS ON T, TH, IS DAYS) IS DAYS) S (NON-DIALY SIS DAYS) acetaminoph acetaminoph No 1 BID acetaminop [facility] en 300 en 300 hen 300 Medical mg-codeine mg-codeine mg-codeine 30 mg 30 mg 30 mg tablet Take tablet Take tablet 1 tablet 1 tablet Take 1 twice a day twice a day tablet by oral by oral twice a route as route as day by needed for needed for oral route 30 days. 30 days. as needed for 30 days. albuterol albuterol No 2puff(s Q6H albuterol [facility] sulf 90 sulf 90 ) sulf 90 Medica l mcg/actuati mcg/actuati mcg/actuat on breath on breath ion breath activated activated activated powder powder powder inhaler,sen inhaler,sen inhaler,se sor Inhale sor Inhale nsor 2 puffs 2 puffs Inhale 2 every 6 every 6 puffs hours by hours by every 6 inhalation inhalation hours by route as route as inhalation needed. needed. route as needed. amlodipine amlodipine No amlodipine [facility] 10 mg 10 mg 10 mg Medical tablet Take tablet Take tablet 1 tablet 1 tablet Take 1 every day every day tablet by oral by oral every day route for route for by oral 30 days. 30 days. route for 30 days. aripiprazol aripiprazol No 1 Q1D aripiprazo [facility] e 5 mg e 5 mg le 5 mg Medical tablet Take tablet Take tablet 1 tablet 1 tablet Take 1 every day every day tablet by oral by oral every day route for route for by oral 30 days. 30 days. route for 30 days. aspirin 81 aspirin 81 No 1 Q1D aspirin 81 [facility] mg mg mg Medical tablet,joy tablet,joy tablet,del yed release yed release ayed Take 1 Take 1 release tablet tablet Take 1 every day every day tablet by oral by oral every day route for route for by oral 30 days. 30 days. route for 30 days. atorvastati atorvastati No atorvastat [facility] n 20 mg n 20 mg in 20 mg Medic al tablet Take tablet Take tablet 1 tablet 1 tablet Take 1 every day every day tablet by oral by oral every day route for route for by oral 30 days. 30 days. route for 30 days. calcium calcium No 3 TID calcium [facility] acetate 667 acetate 667 acetate Medical mg tablet mg tablet 667 mg Take 3 Take 3 tablet tablets 3 tablets 3 Take 3 times a day times a day tablets 3 by oral by oral times a route with route with day by meals for meals for oral route 30 days. 30 days. with meals for 30 days. calcium calcium No calcium [facility] acetate(aure acetate(aure acetate(ph Medical sphate sphate osphate binders) binders) binders) 667 mg 667 mg 667 mg capsule 2 capsule 2 capsule 2 TID with TID with TID with meals and 1 meals and 1 meals and at bedtime at bedtime 1 at with snack with snack bedtime with snack clonidine clonidine No clonidine [facility] 0.1 mg/24 0.1 mg/24 0.1 mg/24 Medical hr weekly hr weekly hr weekly transdermal transdermal transderma patch Apply patch Apply l patch 1 patch 1 patch Apply 1 every week every week patch by by every week transdermal transdermal by route. route. transderma l route. ergocalcife ergocalcife No ergocalcif [facility] (vitamin (vitamin (vitamin D2) 1,250 D2) 1,250 D2) 1,250 mcg (50,000 mcg (50,000 mcg unit) unit) (50,000 capsule capsule unit) Take 1 Take 1 capsule capsule capsule Take 1 every week every week capsule by oral by oral every week route. route. by oral route. ferrous ferrous No 1 BID ferrous [facility] sulfate 325 sulfate 325 sulfate Medical mg (65 mg mg (65 mg 325 mg (65 iron) iron) mg iron) tablet Take tablet Take tablet 1 tablet 1 tablet Take 1 twice a day twice a day tablet by oral by oral twice a route. route. day by oral route. fluticasone fluticasone No 1spray( Q1D fluticason [facility] propionate propionate s) e Med ical 50 50 propionate mcg/actuati mcg/actuati 50 on nasal on nasal mcg/actuat spray,suspe spray,suspe ion nasal nsion [place] nsion [place] spray,susp 1 spray 1 spray ension every day every day [place] 1 by nasal by nasal spray route for route for every day 30 days. 30 days. by nasal route for 30 days. folic acid folic acid No folic acid [facility] 1 mg tablet 1 mg tablet 1 mg M edical Take 1 Take 1 tablet tablet tablet Take 1 every day every day tablet by oral by oral every day route for route for by oral 30 days. 30 days. route for 30 days. hydralazine hydralazine No hydralazin [facility] 100 mg 100 mg e 100 mg Medical tablet Take tablet Take tablet 1 tablet 3 1 tablet 3 Take 1 times a day times a day tablet 3 by oral by oral times a route for route for day by 30 days. 30 days. oral route for 30 days. lactulose lactulose No lactulose [facility] 10 gram/15 10 gram/15 10 gram/15 Medical mL oral mL oral mL oral solution solution solution Take 30 mL Take 30 mL Take 30 mL every day every day every day by oral by oral by oral route as route as route as needed for needed for needed for 15 days. 15 days. 15 days. Lokelma 5 Lok[facility] 5 No Lokelma 5 [facility] gram oral gram oral gram oral Medical powder powder powder packet one packet one packet one a day on a day on a day on odd days odd days odd days Sun, Tues, Sun, Tues, Sun, Tues, Thur, Sat Thur, Sat Thur, Sat metoprolol metoprolol No 1 BID metoprolol [facility] tartrate 50 tartrate 50 tartrate Medical mg tablet mg tablet 50 mg Take 1 Take 1 tablet tablet tablet Take 1 twice a day twice a day tablet by oral by oral twice a route. route. day by oral route. omeprazole omeprazole No omeprazole [facility] 20 mg 20 mg 20 mg Medical capsule,del capsule,del capsule,de ayed ayed layed release release release Take 1 Take 1 Take 1 capsule capsule capsule every day every day every day by oral by oral by oral route. route. route. sertraline sertraline No sertraline [facility] 100 mg 100 mg 100 mg Medical tablet Take tablet Take tablet 1 tablet 1 tablet Take 1 every day every day tablet by oral by oral every day route at route at by oral bedtime for bedtime for route at 30 days. 30 days. bedtime for 30 days. [place] V[place] No V[place]assa [place] via 8.4 gram 8.4 gram 8.4 gram Med ical oral powder oral powder oral packet ONE packet ONE powder PACKET PACKET packet ONE MIXED WITH MIXED WITH PACKET 3OZ OF 3OZ OF MIXED WITH WATER TO BE WATER TO BE 3OZ OF GIVEN ON T, GIVEN ON T, WATER TO TH, S TH, S BE GIVEN (NON-DIALYS (NON-DIALYS ON T, TH, IS DAYS) IS DAYS) S (NON-DIALY SIS DAYS) acetaminoph acetaminoph No 1 BID acetaminop [facility] en 300 en 300 hen 300 Medical mg-codeine mg-codeine mg-codeine 30 mg 30 mg 30 mg tablet Take tablet Take tablet 1 tablet 1 tablet Take 1 twice a day twice a day tablet by oral by oral twice a route as route as day by needed for needed for oral route 30 days. 30 days. as needed for 30 days. albuterol albuterol No 2puff(s Q6H albuterol [facility] sulf 90 sulf 90 ) sulf 90 Medica l mcg/actuati mcg/actuati mcg/actuat on breath on breath ion breath activated activated activated powder powder powder inhaler,sen inhaler,sen inhaler,se sor Inhale sor Inhale nsor 2 puffs 2 puffs Inhale 2 every 6 every 6 puffs hours by hours by every 6 inhalation inhalation hours by route as route as inhalation needed. needed. route as needed. amlodipine amlodipine No amlodipine [facility] 10 mg 10 mg 10 mg Medical tablet Take tablet Take tablet 1 tablet 1 tablet Take 1 every day every day tablet by oral by oral every day route for route for by oral 30 days. 30 days. route for 30 days. aripiprazol aripiprazol No 1 Q1D aripiprazo [facility] e 5 mg e 5 mg le 5 mg Medical tablet Take tablet Take tablet 1 tablet 1 tablet Take 1 every day every day tablet by oral by oral every day route for route for by oral 30 days. 30 days. route for 30 days. aspirin 81 aspirin 81 No 1 Q1D aspirin 81 [facility] mg mg mg Medical tablet,joy tablet,joy tablet,del yed release yed release ayed Take 1 Take 1 release tablet tablet Take 1 every day every day tablet by oral by oral every day route for route for by oral 30 days. 30 days. route for 30 days. atorvastati atorvastati No atorvastat [facility] n 20 mg n 20 mg in 20 mg Medic al tablet Take tablet Take tablet 1 tablet 1 tablet Take 1 every day every day tablet by oral by oral every day route for route for by oral 30 days. 30 days. route for 30 days. calcium calcium No 3 TID calcium [facility] acetate 667 acetate 667 acetate Medical mg tablet mg tablet 667 mg Take 3 Take 3 tablet tablets 3 tablets 3 Take 3 times a day times a day tablets 3 by oral by oral times a route with route with day by meals for meals for oral route 30 days. 30 days. with meals for 30 days. calcium calcium No calcium [facility] acetate(aure acetate(aure acetate(ph Medical sphate sphate osphate binders) binders) binders) 667 mg 667 mg 667 mg capsule 2 capsule 2 capsule 2 TID with TID with TID with meals and 1 meals and 1 meals and at bedtime at bedtime 1 at with snack with snack bedtime with snack clonidine clonidine No 1patch( Q1W clonidine [facility] 0.2 mg/24 0.2 mg/24 es) 0.2 mg/24 Medical hr weekly hr weekly hr weekly transdermal transdermal transderma patch Apply patch Apply l patch 1 patch 1 patch Apply 1 every week every week patch by by every week transdermal transdermal by route. route. transderma l route. ergocalcife ergocalcife No ergocalcif [facility] (vitamin (vitamin (vitamin D2) 1,250 D2) 1,250 D2) 1,250 mcg (50,000 mcg (50,000 mcg unit) unit) (50,000 capsule capsule unit) Take 1 Take 1 capsule capsule capsule Take 1 every week every week capsule by oral by oral every week route. route. by oral route. ferrous ferrous No 1 BID ferrous [facility] sulfate 325 sulfate 325 sulfate Medical mg (65 mg mg (65 mg 325 mg (65 iron) iron) mg iron) tablet Take tablet Take tablet 1 tablet 1 tablet Take 1 twice a day twice a day tablet by oral by oral twice a route. route. day by oral route. fluticasone fluticasone No 1spray( Q1D fluticason [facility] propionate propionate s) e Med ical 50 50 propionate mcg/actuati mcg/actuati 50 on nasal on nasal mcg/actuat spray,suspe spray,suspe ion nasal nsion [place] nsion [place] spray,susp 1 spray 1 spray ension every day every day [place] 1 by nasal by nasal spray route for route for every day 30 days. 30 days. by nasal route for 30 days. folic acid folic acid No folic acid [facility] 1 mg tablet 1 mg tablet 1 mg M edical Take 1 Take 1 tablet tablet tablet Take 1 every day every day tablet by oral by oral every day route for route for by oral 30 days. 30 days. route for 30 days. hydralazine hydralazine No hydralazin [facility] 100 mg 100 mg e 100 mg Medical tablet Take tablet Take tablet 1 tablet 3 1 tablet 3 Take 1 times a day times a day tablet 3 by oral by oral times a route for route for day by 30 days. 30 days. oral route for 30 days. lactulose lactulose No lactulose [facility] 10 gram/15 10 gram/15 10 gram/15 Medical mL oral mL oral mL oral solution solution solution Take 30 mL Take 30 mL Take 30 mL every day every day every day by oral by oral by oral route as route as route as needed for needed for needed for 15 days. 15 days. 15 days. Lokelma 5 [facility] 5 No Lokel[facility] 5 [facility] gram oral gram oral gram oral Medical powder powder powder packet one packet one packet one a day on a day on a day on odd days odd days odd days Sun, Tues, Sun, Tues, Sun, Tues, Thur, Sat Thur, Sat Thur, Sat metoprolol metoprolol No 1 BID metoprolol [facility] tartrate 50 tartrate 50 tartrate Medical mg tablet mg tablet 50 mg Take 1 Take 1 tablet tablet tablet Take 1 twice a day twice a day tablet by oral by oral twice a route. route. day by oral route. omeprazole omeprazole No omeprazole [facility] 20 mg 20 mg 20 mg [facility] capsule,del capsule,del capsule,de ayed ayed layed release release release Take 1 Take 1 Take 1 capsule capsule capsule every day every day every day by oral by oral by oral route. route. route. sertraline sertraline No sertraline [facility] 100 mg 100 mg 100 mg [facility] tablet Take tablet Take tablet 1 tablet 1 tablet Take 1 every day every day tablet by oral by oral every day route at route at by oral bedtime for bedtime for route at 30 days. 30 days. bedtime for 30 days. [facility] [place] via 8.4 gram 8.4 gram 8.4 gram Med ical oral powder oral powder oral packet ONE packet ONE powder PACKET PACKET packet ONE MIXED WITH MIXED WITH PACKET 3OZ OF 3OZ OF MIXED WITH WATER TO BE WATER TO BE 3OZ OF GIVEN ON T, GIVEN ON T, WATER TO TH, S TH, S BE GIVEN (NON-DIALYS (NON-DIALYS ON T, TH, IS DAYS) IS DAYS) S (NON-DIALY SIS DAYS) acetaminoph acetaminoph No 1 BID acetaminop [facility] en 300 en 300 hen 300 Medical mg-codeine mg-codeine mg-codeine 30 mg 30 mg 30 mg tablet Take tablet Take tablet 1 tablet 1 tablet Take 1 twice a day twice a day tablet by oral by oral twice a route as route as day by needed for needed for oral route 30 days. 30 days. as needed for 30 days. amlodipine amlodipine No amlodipine [facility] 10 mg 10 mg 10 mg [facility] tablet Take tablet Take tablet 1 tablet 1 tablet Take 1 every day every day tablet by oral by oral every day route for route for by oral 30 days. 30 days. route for 30 days. aspirin 81 aspirin 81 No 1 Q1D aspirin 81 [facility] mg mg mg Medical tablet,joy tablet,joy tablet,del yed release yed release ayed Take 1 Take 1 release tablet tablet Take 1 every day every day tablet by oral by oral every day route for route for by oral 30 days. 30 days. route for 30 days. atorvastati atorvastati No atorvastat [facility] n 20 mg n 20 mg in 20 mg Medic al tablet Take tablet Take tablet 1 tablet 1 tablet Take 1 every day every day tablet by oral by oral every day route for route for by oral 30 days. 30 days. route for 30 days. calcium calcium No calcium [facility] acetate(aure acetate(aure acetate(ph Medical sphate sphate osphate binders) binders) binders) 667 mg 667 mg 667 mg capsule 2 capsule 2 capsule 2 TID with TID with TID with meals and 1 meals and 1 meals and at bedtime at bedtime 1 at with snack with snack bedtime with snack ceftazidime ceftazidime No ceftazidim [facility] 1 gram 1 gram e 1 gram Medical intravenous intravenous intravenou solution 1 solution 1 s solution gram once a gram once a 1 gram day on MW day on MW once a day to be given to be given on MW to at at be given dialysis. 2 dialysis. 2 at gram once a gram once a dialysis. day on F to day on F to 2 gram be given at be given at once a day dialysis. dialysis. on F to be given at dialysis. clonidine clonidine No 1patch( Q1W clonidine [facility] 0.2 mg/24 0.2 mg/24 es) 0.2 mg/24 Medical hr weekly hr weekly hr weekly transdermal transdermal transderma patch Apply patch Apply l patch 1 patch 1 patch Apply 1 every week every week patch by by every week transdermal transdermal by route. route. transderma l route. ergocalcife ergocalcife No ergocalcif [facility] (vitamin (vitamin (vitamin D2) 1,250 D2) 1,250 D2) 1,250 mcg (50,000 mcg (50,000 mcg unit) unit) (50,000 capsule capsule unit) Take 1 Take 1 capsule capsule capsule Take 1 every week every week capsule by oral by oral every week route. route. by oral route. ferrous ferrous No 1 BID ferrous [facility] sulfate 325 sulfate 325 sulfate [facility] mg (65 mg mg (65 mg 325 mg (65 iron) iron) mg iron) tablet Take tablet Take tablet 1 tablet 1 tablet Take 1 twice a day twice a day tablet by oral by oral twice a route. route. day by oral route. fluticasone fluticasone No 1spray( Q1D fluticason [facility] propionate propionate s) e Med ical 50 50 propionate mcg/actuati mcg/actuati 50 on nasal on nasal mcg/actuat spray,suspe spray,suspe ion nasal nsion [place] nsion [place] spray,susp 1 spray 1 spray ension every day every day [place] 1 by nasal by nasal spray route for route for every day 30 days. 30 days. by nasal route for 30 days. folic acid folic acid No folic acid [facility] 1 mg tablet 1 mg tablet 1 mg M edical Take 1 Take 1 tablet tablet tablet Take 1 every day every day tablet by oral by oral every day route for route for by oral 30 days. 30 days. route for 30 days. hydralazine hydralazine No hydralazin [facility] 100 mg 100 mg e 100 mg [facility] tablet Take tablet Take tablet 1 tablet 3 1 tablet 3 Take 1 times a day times a day tablet 3 by oral by oral times a route for route for day by 30 days. 30 days. oral route for 30 days. lactulose lactulose No lactulose [facility] 10 gram/15 10 gram/15 10 gram/15 Medical mL oral mL oral mL oral solution solution solution Take 30 mL Take 30 mL Take 30 mL every day every day every day by oral by oral by oral route as route as route as needed for needed for needed for 15 days. 15 days. 15 days. Lokelma 5 [facility] 5 No Lok[facility] 5 [facility] gram oral gram oral gram oral Medical powder powder powder packet one packet one packet one a day on a day on a day on odd days odd days odd days Sun, Tues, Sun, Tues, Sun, Tues, Thur, Sat Thur, Sat Thur, Sat omeprazole omeprazole No omeprazole [facility] 20 mg 20 mg 20 mg [facility] capsule,del capsule,del capsule,de ayed ayed layed release release release Take 1 Take 1 Take 1 capsule capsule capsule every day every day every day by oral by oral by oral route. route. route. sertraline sertraline No sertraline [facility] 100 mg 100 mg 100 mg [facility] tablet Take tablet Take tablet 1 tablet 1 tablet Take 1 every day every day tablet by oral by oral every day route at route at by oral bedtime for bedtime for route at 30 days. 30 days. bedtime for 30 days. vancomycin vancomycin No vancomycin [facility] 750 mg 750 mg 750 mg Medical intravenous intravenous intravenou solution solution s solution 750 mg once 750 mg once 750 mg a day at a day at once a day dialysis dialysis at dialysis [facility] No [place] [place] via 8.4 gram 8.4 gram 8.4 gram Med ical oral powder oral powder oral packet ONE packet ONE powder PACKET PACKET packet ONE MIXED WITH MIXED WITH PACKET 3OZ OF 3OZ OF MIXED WITH WATER TO BE WATER TO BE 3OZ OF GIVEN ON T, GIVEN ON T, WATER TO TH, S TH, S BE GIVEN (NON-DIALYS (NON-DIALYS ON T, TH, IS DAYS) IS DAYS) S (NON-DIALY SIS DAYS) acetaminoph acetaminoph No 1 BID acetaminop [facility] en 300 en 300 hen 300 Medical mg-codeine mg-codeine mg-codeine 30 mg 30 mg 30 mg tablet Take tablet Take tablet 1 tablet 1 tablet Take 1 twice a day twice a day tablet by oral by oral twice a route as route as day by needed for needed for oral route 30 days. 30 days. as needed for 30 days. amlodipine amlodipine No amlodipine [facility] 10 mg 10 mg 10 mg [facility] tablet Take tablet Take tablet 1 tablet 1 tablet Take 1 every day every day tablet by oral by oral every day route for route for by oral 30 days. 30 days. route for 30 days. aspirin 81 aspirin 81 No 1 Q1D aspirin 81 [facility] mg mg mg [facility] tablet,joy tablet,joy tablet,del yed release yed release ayed Take 1 Take 1 release tablet tablet Take 1 every day every day tablet by oral by oral every day route for route for by oral 30 days. 30 days. route for 30 days. atorvastati atorvastati No atorvastat [facility] n 20 mg n 20 mg in 20 mg Medic al tablet Take tablet Take tablet 1 tablet 1 tablet Take 1 every day every day tablet by oral by oral every day route for route for by oral 30 days. 30 days. route for 30 days. calcium calcium No calcium [facility] acetate(aure acetate(aure acetate(ph Medical sphate sphate osphate binders) binders) binders) 667 mg 667 mg 667 mg capsule 2 capsule 2 capsule 2 TID with TID with TID with meals and 1 meals and 1 meals and at bedtime at bedtime 1 at with snack with snack bedtime with snack carvedilol carvedilol No 1 BID carvedilol [facility] 25 mg 25 mg 25 mg [facility] tablet Take tablet Take tablet 1 tablet 1 tablet Take 1 twice a day twice a day tablet by oral by oral twice a route. route. day by oral route. clonidine clonidine No 1patch( Q1W clonidine [facility] 0.2 mg/24 0.2 mg/24 es) 0.2 mg/24 Medical hr weekly hr weekly hr weekly transdermal transdermal transderma patch Apply patch Apply l patch 1 patch 1 patch Apply 1 every week every week patch by by every week transdermal transdermal by route. route. transderma l route. ergocalcife ergocalcife No ergocalcif [facility] (vitamin (vitamin (vitamin D2) 1,250 D2) 1,250 D2) 1,250 mcg (50,000 mcg (50,000 mcg unit) unit) (50,000 capsule capsule unit) Take 1 Take 1 capsule capsule capsule Take 1 every week every week capsule by oral by oral every week route. route. by oral route. ferrous ferrous No 1 BID ferrous [facility] sulfate 325 sulfate 325 sulfate Medical mg (65 mg mg (65 mg 325 mg (65 iron) iron) mg iron) tablet Take tablet Take tablet 1 tablet 1 tablet Take 1 twice a day twice a day tablet by oral by oral twice a route. route. day by oral route. fluticasone fluticasone No 1spray( Q1D fluticason [facility] propionate propionate s) e Med ical 50 50 propionate mcg/actuati mcg/actuati 50 on nasal on nasal mcg/actuat spray,suspe spray,suspe ion nasal nsion [place] nsion [place] spray,susp 1 spray 1 spray ension every day every day [place] 1 by nasal by nasal spray route for route for every day 30 days. 30 days. by nasal route for 30 days. folic acid folic acid No folic acid [facility] 1 mg tablet 1 mg tablet 1 mg M edical Take 1 Take 1 tablet tablet tablet Take 1 every day every day tablet by oral by oral every day route for route for by oral 30 days. 30 days. route for 30 days. hydralazine hydralazine No hydralazin [facility] 100 mg 100 mg e 100 mg Medical tablet Take tablet Take tablet 1 tablet 3 1 tablet 3 Take 1 times a day times a day tablet 3 by oral by oral times a route for route for day by 30 days. 30 days. oral route for 30 days. lactulose lactulose No lactulose [facility] 10 gram/15 10 gram/15 10 gram/15 Medical mL oral mL oral mL oral solution solution solution Take 30 mL Take 30 mL Take 30 mL every day every day every day by oral by oral by oral route as route as route as needed for needed for needed for 15 days. 15 days. 15 days. Lokelma 5 [facility] 5 No Lok[facility] 5 [facility] gram oral gram oral gram oral Medical powder powder powder packet one packet one packet one a day on a day on a day on odd days odd days odd days Sun, Tues, Sun, Tues, Sun, Tues, Thur, Sat Thur, Sat Thur, Sat omeprazole omeprazole No omeprazole [facility] 20 mg 20 mg 20 mg Medical capsule,del capsule,del capsule,de ayed ayed layed release release release Take 1 Take 1 Take 1 capsule capsule capsule every day every day every day by oral by oral by oral route. route. route. sertraline sertraline No sertraline [facility] 100 mg 100 mg 100 mg Medical tablet Take tablet Take tablet 1 tablet 1 tablet Take 1 every day every day tablet by oral by oral every day route at route at by oral bedtime for bedtime for route at 30 days. 30 days. bedtime for 30 days. vancomycin vancomycin No vancomycin [facility] 750 mg 750 mg 750 mg Medical intravenous intravenous intravenou solution solution s solution 750 mg once 750 mg once 750 mg a day at a day at once a day dialysis dialysis at [facility] No [facility] [place] via 8.4 gram 8.4 gram 8.4 gram Med ical oral powder oral powder oral packet ONE packet ONE powder PACKET PACKET packet ONE MIXED WITH MIXED WITH PACKET 3OZ OF 3OZ OF MIXED WITH WATER TO BE WATER TO BE 3OZ OF GIVEN ON T, GIVEN ON T, WATER TO TH, S TH, S BE GIVEN (NON-DIALYS (NON-DIALYS ON T, TH, IS DAYS) IS DAYS) S (NON-DIALY SIS DAYS) acetaminoph acetaminoph No 1 BID acetaminop [facility] en 300 en 300 hen 300 Medical mg-codeine mg-codeine mg-codeine 30 mg 30 mg 30 mg tablet Take tablet Take tablet 1 tablet 1 tablet Take 1 twice a day twice a day tablet by oral by oral twice a route as route as day by needed for needed for oral route 30 days. 30 days. as needed for 30 days. amlodipine amlodipine No amlodipine [facility] 10 mg 10 mg 10 mg Medical tablet Take tablet Take tablet 1 tablet 1 tablet Take 1 every day every day tablet by oral by oral every day route for route for by oral 30 days. 30 days. route for 30 days. aspirin 81 aspirin 81 No 1 Q1D aspirin 81 [facility] mg mg mg Medical tablet,joy tablet,joy tablet,del yed release yed release ayed Take 1 Take 1 release tablet tablet Take 1 every day every day tablet by oral by oral every day route for route for by oral 30 days. 30 days. route for 30 days. atorvastati atorvastati No atorvastat [facility] n 20 mg n 20 mg in 20 mg Medic al tablet Take tablet Take tablet 1 tablet 1 tablet Take 1 every day every day tablet by oral by oral every day route for route for by oral 30 days. 30 days. route for 30 days. calcium calcium No calcium [facility] acetate(aure acetate(aure acetate(ph Medical sphate sphate osphate binders) binders) binders) 667 mg 667 mg 667 mg capsule 2 capsule 2 capsule 2 TID with TID with TID with meals and 1 meals and 1 meals and at bedtime at bedtime 1 at with snack with snack bedtime with snack carvedilol carvedilol No 1 BID carvedilol [facility] 25 mg 25 mg 25 mg Medical tablet Take tablet Take tablet 1 tablet 1 tablet Take 1 twice a day twice a day tablet by oral by oral twice a route. route. day by oral route. clonidine clonidine No 1patch( Q1W clonidine [facility] 0.1 mg/24 0.1 mg/24 es) 0.1 mg/24 Medical hr weekly hr weekly hr weekly transdermal transdermal transderma patch Apply patch Apply l patch 1 patch 1 patch Apply 1 every week every week patch by by every week transdermal transdermal by route. route. transderma l route. ergocalcife ergocalcife No ergocalcif [facility] (vitamin (vitamin (vitamin D2) 1,250 D2) 1,250 D2) 1,250 mcg (50,000 mcg (50,000 mcg unit) unit) (50,000 capsule capsule unit) Take 1 Take 1 capsule capsule capsule Take 1 every week every week capsule by oral by oral every week route. route. by oral route. ferrous ferrous No 1 BID ferrous [facility] sulfate 325 sulfate 325 sulfate Medical mg (65 mg mg (65 mg 325 mg (65 iron) iron) mg iron) tablet Take tablet Take tablet 1 tablet 1 tablet Take 1 twice a day twice a day tablet by oral by oral twice a route. route. day by oral route. fluticasone fluticasone No 1spray( Q1D fluticason [facility] propionate propionate s) e Med ical 50 50 propionate mcg/actuati mcg/actuati 50 on nasal on nasal mcg/actuat spray,suspe spray,suspe ion nasal nsion [place] nsion [place] spray,susp 1 spray 1 spray ension every day every day [place] 1 by nasal by nasal spray route for route for every day 30 days. 30 days. by nasal route for 30 days. folic acid folic acid No folic acid [facility] 1 mg tablet 1 mg tablet 1 mg M edical Take 1 Take 1 tablet tablet tablet Take 1 every day every day tablet by oral by oral every day route for route for by oral 30 days. 30 days. route for 30 days. hydralazine hydralazine No hydralazin [facility] 100 mg 100 mg e 100 mg Medical tablet Take tablet Take tablet 1 tablet 3 1 tablet 3 Take 1 times a day times a day tablet 3 by oral by oral times a route for route for day by 30 days. 30 days. oral route for 30 days. lactulose lactulose No lactulose [facility] 10 gram/15 10 gram/15 10 gram/15 Medical mL oral mL oral mL oral solution solution solution Take 30 mL Take 30 mL Take 30 mL every day every day every day by oral by oral by oral route as route as route as needed for needed for needed for 15 days. 15 days. 15 days. Lokelma 5 [facility] 5 No Lokelma 5 [facility] gram oral gram oral gram oral Medical powder powder powder packet one packet one packet one a day on a day on a day on odd days odd days odd days Sun, Tues, Sun, Tues, Sun, Tues, Thur, Sat Thur, Sat Thur, Sat omeprazole omeprazole No omeprazole [facility] 20 mg 20 mg 20 mg Medical capsule,del capsule,del capsule,de ayed ayed layed release release release Take 1 Take 1 Take 1 capsule capsule capsule every day every day every day by oral by oral by oral route. route. route. sertraline sertraline No sertraline [facility] 100 mg 100 mg 100 mg Medical tablet Take tablet Take tablet 1 tablet 1 tablet Take 1 every day every day tablet by oral by oral every day route at route at by oral bedtime for bedtime for route at 30 days. 30 days. bedtime for 30 days. vancomycin vancomycin No vancomycin [facility] 750 mg 750 mg 750 mg Medical intravenous intravenous intravenou solution solution s solution 750 mg once 750 mg once 750 mg a day at a day at once a day dialysis dialysis at dialysis [facility] [place] via 8.4 gram 8.4 gram 8.4 gram Med ical oral powder oral powder oral packet ONE packet ONE powder PACKET PACKET packet ONE MIXED WITH MIXED WITH PACKET 3OZ OF 3OZ OF MIXED WITH WATER TO BE WATER TO BE 3OZ OF GIVEN ON T, GIVEN ON T, WATER TO , S TH, S BE GIVEN (NON-DIALYS (NON-DIALYS ON T, TH, IS DAYS) IS DAYS) S (NON-DIALY SIS DAYS) acetaminoph acetaminoph No 1 BID acetaminop [facility] en 300 en 300 hen 300 Medical mg-codeine mg-codeine mg-codeine 30 mg 30 mg 30 mg tablet Take tablet Take tablet 1 tablet 1 tablet Take 1 twice a day twice a day tablet by oral by oral twice a route as route as day by needed. needed. oral route as needed. amlodipine amlodipine No 1 Q1D amlodipine [facility] 10 mg 10 mg 10 mg Medical tablet Take tablet Take tablet 1 tablet 1 tablet Take 1 every day every day tablet by oral by oral every day route for route for by oral 30 days. 30 days. route for 30 days. atorvastati atorvastati No 1 Q1D atorvastat [facility] n 20 mg n 20 mg in 20 mg Medic al tablet Take tablet Take tablet 1 tablet 1 tablet Take 1 every day every day tablet by oral by oral every day route for route for by oral 30 days. 30 days. route for 30 days. calcium calcium No calcium [facility] acetate(aure acetate(aure acetate(ph Medical sphate sphate osphate binders) binders) binders) 667 mg 667 mg 667 mg capsule 2 capsule 2 capsule 2 TID with TID with TID with meals and 1 meals and 1 meals and at bedtime at bedtime 1 at with snack with snack bedtime with snack carvedilol carvedilol No 1 BID carvedilol [facility] 25 mg 25 mg 25 mg Medical tablet Take tablet Take tablet 1 tablet 1 tablet Take 1 twice a day twice a day tablet by oral by oral twice a route for route for day by 30 days. 30 days. oral route for 30 days. clonidine clonidine No 1patch( Q1W clonidine [facility] 0.1 mg/24 0.1 mg/24 es) 0.1 mg/24 Medical hr weekly hr weekly hr weekly transdermal transdermal transderma patch Apply patch Apply l patch 1 patch 1 patch Apply 1 every week every week patch by by every week transdermal transdermal by route. route. transderma l route. clonidine clonidine No 1 BID clonidine [facility] HCl 0.1 mg HCl 0.1 mg HCl 0.1 mg Medical tablet Take tablet Take tablet 1 tablet 1 tablet Take 1 twice a day twice a day tablet by oral by oral twice a route as route as day by needed for needed for oral route 30 days. 30 days. as needed for 30 days. fluticasone fluticasone No 1spray( Q1D fluticason [facility] propionate propionate s) e Med ical 50 50 propionate mcg/actuati mcg/actuati 50 on nasal on nasal mcg/actuat spray,suspe spray,suspe ion nasal nsion [place] nsion [place] spray,susp 1 spray 1 spray ension every day every day [place] 1 by nasal by nasal spray route for route for every day 30 days. 30 days. by nasal route for 30 days. hydralazine hydralazine No 1 BID hydralazin [facility] 100 mg 100 mg e 100 mg Medical tablet Take tablet Take tablet 1 tablet 1 tablet Take 1 twice a day twice a day tablet by oral by oral twice a route for route for day by 30 days. 30 days. oral route for 30 days. lactulose lactulose No 30mL Q1D lactulose [facility] 10 gram/15 10 gram/15 10 gram/15 Medical mL oral mL oral mL oral solution solution solution Take 30 mL Take 30 mL Take 30 mL every day every day every day by oral by oral by oral route as route as route as needed for needed for needed for 15 days. 15 days. 15 days. lisinopril lisinopril No 1 Q1D lisinopril [facility] 40 mg 40 mg 40 mg Medical tablet Take tablet Take tablet 1 tablet 1 tablet Take 1 every day every day tablet by oral by oral every day route for route for by oral 30 days. 30 days. route for 30 days. Lokelma 5 [facility] 5 No Lokelma 5 [facility] gram oral gram oral gram oral Medical powder powder powder packet one packet one packet one a day on a day on a day on odd days odd days odd days Sun, Tues, Sun, Tues, Sun, Tues, Thur, Sat Thur, Sat Thur, Sat omeprazole omeprazole No omeprazole [facility] 20 mg 20 mg 20 mg Medical capsule,del capsule,del capsule,de ayed ayed layed release release release sertraline sertraline No 1 Q1D sertraline [facility] 100 mg 100 mg 100 mg Medical tablet Take tablet Take tablet 1 tablet 1 tablet Take 1 every day every day tablet by oral by oral every day route at route at by oral bedtime for bedtime for route at 30 days. 30 days. bedtime for 30 days. [place] [place] No [facility] [place] via 8.4 gram 8.4 gram 8.4 gram Med ical oral powder oral powder oral packet one packet one powder on non on non packet one dialysis dialysis on non days e, days tue, dialysis thur, sat thur, sat days fri, thur, sat acetaminoph acetaminoph No 1 BID acetaminop [facility] en 300 en 300 hen 300 Medical mg-codeine mg-codeine mg-codeine 30 mg 30 mg 30 mg tablet Take tablet Take tablet 1 tablet 1 tablet Take 1 twice a day twice a day tablet by oral by oral twice a route as route as day by needed. needed. oral route as needed. amlodipine amlodipine No 1 Q1D amlodipine [facility] 10 mg 10 mg 10 mg Medical tablet Take tablet Take tablet 1 tablet 1 tablet Take 1 every day every day tablet by oral by oral every day route for route for by oral 30 days. 30 days. route for 30 days. atorvastati atorvastati No 1 Q1D atorvastat [facility] n 20 mg n 20 mg in 20 mg [facility] al tablet Take tablet Take tablet 1 tablet 1 tablet Take 1 every day every day tablet by oral by oral every day route for route for by oral 30 days. 30 days. route for 30 days. calcium calcium No calcium [facility] acetate(aure acetate(aure acetate(ph Medical sphate sphate osphate binders) binders) binders) 667 mg 667 mg 667 mg capsule 2 capsule 2 capsule 2 TID with TID with TID with meals and 1 meals and 1 meals and at bedtime at bedtime 1 at with snack with snack bedtime with snack carvedilol carvedilol No 1 BID carvedilol [facility] 25 mg 25 mg 25 mg [facility] tablet Take tablet Take tablet 1 tablet 1 tablet Take 1 twice a day twice a day tablet by oral by oral twice a route for route for day by 30 days. 30 days. oral route for 30 days. clonidine clonidine No 1patch( Q1W clonidine [facility] 0.1 mg/24 0.1 mg/24 es) 0.1 mg/24 Medical hr weekly hr weekly hr weekly transdermal transdermal transderma patch Apply patch Apply l patch 1 patch 1 patch Apply 1 every week every week patch by by every week transdermal transdermal by route. route. transderma l route. clonidine clonidine No 1 BID clonidine [facility] HCl 0.1 mg HCl 0.1 mg HCl 0.1 mg Medical tablet Take tablet Take tablet 1 tablet 1 tablet Take 1 twice a day twice a day tablet by oral by oral twice a route as route as day by needed for needed for oral route 30 days. 30 days. as needed for 30 days. fluticasone fluticasone No 1spray( Q1D fluticason [facility] propionate propionate s) e Med ical 50 50 propionate mcg/actuati mcg/actuati 50 on nasal on nasal mcg/actuat spray,suspe spray,suspe ion nasal nsion [place] nsion [place] spray,susp 1 spray 1 spray ension every day every day [place] 1 by nasal by nasal spray route for route for every day 30 days. 30 days. by nasal route for 30 days. hydralazine hydralazine No 1 BID hydralazin [facility] 100 mg 100 mg e 100 mg [facility] tablet Take tablet Take tablet 1 tablet 1 tablet Take 1 twice a day twice a day tablet by oral by oral twice a route for route for day by 30 days. 30 days. oral route for 30 days. lactulose lactulose No 30mL Q1D lactulose [facility] 10 gram/15 10 gram/15 10 gram/15 Medical mL oral mL oral mL oral solution solution solution Take 30 mL Take 30 mL Take 30 mL every day every day every day by oral by oral by oral route as route as route as needed for needed for needed for 15 days. 15 days. 15 days. lisinopril lisinopril No 1 Q1D lisinopril [facility] 40 mg 40 mg 40 mg [facility] tablet Take tablet Take tablet 1 tablet 1 tablet Take 1 every day every day tablet by oral by oral every day route for route for by oral 30 days. 30 days. route for 30 days. Lokelma 5 Lok[facility] 5 No Lokelma 5 [facility] gram oral gram oral gram oral Medical powder powder powder packet one packet one packet one a day on a day on a day on odd days odd days odd days Sun, Tues, Sun, Tues, Sun, Tues, Thur, Sat Thur, Sat Thur, Sat omeprazole omeprazole No omeprazole [facility] 20 mg 20 mg 20 mg [facility] capsule,del capsule,del capsule,de ayed ayed layed release release release sertraline sertraline No 1 Q1D sertraline [facility] 100 mg 100 mg 100 mg [facility] tablet Take tablet Take tablet 1 tablet 1 tablet Take 1 every day every day tablet by oral by oral every day route at route at by oral bedtime for bedtime for route at 30 days. 30 days. bedtime for 30 days. [facility] [place] No [facility] [place] via 8.4 gram 8.4 gram 8.4 gram Med ical oral powder oral powder oral packet one packet one powder on non on non packet one dialysis dialysis on non days tue, days tue, dialysis thur, sat thur, sat days tue, thur, sat acetaminoph acetaminoph No 1 BID acetaminop [facility] en 300 en 300 hen 300 Medical mg-codeine mg-codeine mg-codeine 30 mg 30 mg 30 mg tablet Take tablet Take tablet 1 tablet 1 tablet Take 1 twice a day twice a day tablet by oral by oral twice a route as route as day by needed. needed. oral route as needed. amlodipine amlodipine No 1 Q1D amlodipine [facility] 10 mg 10 mg 10 mg [facility] tablet Take tablet Take tablet 1 tablet 1 tablet Take 1 every day every day tablet by oral by oral every day route for route for by oral 30 days. 30 days. route for 30 days. atorvastati atorvastati No 1 Q1D atorvastat [facility] n 20 mg n 20 mg in 20 mg [facility] al tablet Take tablet Take tablet 1 tablet 1 tablet Take 1 every day every day tablet by oral by oral every day route for route for by oral 30 days. 30 days. route for 30 days. calcium calcium No calcium [facility] acetate(aure acetate(aure acetate(ph [facility] sphate sphate osphate binders) binders) binders) 667 mg 667 mg 667 mg capsule 2 capsule 2 capsule 2 TID with TID with TID with meals and 1 meals and 1 meals and at bedtime at bedtime 1 at with snack with snack bedtime with snack carvedilol carvedilol No 1 BID carvedilol [facility] 25 mg 25 mg 25 mg [facility] tablet Take tablet Take tablet 1 tablet 1 tablet Take 1 twice a day twice a day tablet by oral by oral twice a route for route for day by 30 days. 30 days. oral route for 30 days. clonidine clonidine No 1 Q8H clonidine [facility] HCl 0.2 mg HCl 0.2 mg HCl 0.2 mg [facility] tablet Take tablet Take tablet 1 tablet 1 tablet Take 1 every 8 every 8 tablet hours by hours by every 8 oral route oral route hours by as needed. as needed. oral route as needed. fluticasone fluticasone No 1spray( Q1D fluticason [facility] propionate propionate s) e Med ical 50 50 propionate mcg/actuati mcg/actuati 50 on nasal on nasal mcg/actuat spray,suspe spray,suspe ion nasal nsion [place] nsion [place] spray,susp 1 spray 1 spray ension every day every day [place] 1 by nasal by nasal spray route for route for every day 30 days. 30 days. by nasal route for 30 days. hydralazine hydralazine No 1 BID hydralazin [facility] 100 mg 100 mg e 100 mg [facility] tablet Take tablet Take tablet 1 tablet 1 tablet Take 1 twice a day twice a day tablet by oral by oral twice a route for route for day by 30 days. 30 days. oral route for 30 days. lactulose lactulose No 30mL Q1D lactulose [facility] 10 gram/15 10 gram/15 10 gram/15 Medical mL oral mL oral mL oral solution solution solution Take 30 mL Take 30 mL Take 30 mL every day every day every day by oral by oral by oral route as route as route as needed for needed for needed for 15 days. 15 days. 15 days. lisinopril lisinopril No 1 Q1D lisinopril [facility] 40 mg 40 mg 40 mg [facility] tablet Take tablet Take tablet 1 tablet 1 tablet Take 1 every day every day tablet by oral by oral every day route for route for by oral 30 days. 30 days. route for 30 days. Lokelma 5 [facility] 5 No Lok[facility]ma 5 [facility] gram oral gram oral gram oral Medical powder powder powder packet one packet one packet one a day on a day on a day on odd days odd days odd days Sun, Tues, Sun, Tues, Sun, Tues, Thur, Sat Thur, Sat Thur, Sat sertraline sertraline No 1 Q1D sertraline [facility] 100 mg 100 mg 100 mg [facility] tablet Take tablet Take tablet 1 tablet 1 tablet Take 1 every day every day tablet by oral by oral every day route at route at by oral bedtime for bedtime for route at 30 days. 30 days. bedtime for 30 days. [place] [facility] [place] via 8.4 gram 8.4 gram 8.4 gram Med ical oral powder oral powder oral packet one packet one powder on non on non packet one dialysis dialysis on non days e, days tue, dialysis thur, sat thur, sat days e, thur, sat acetaminoph acetaminoph No 1 BID acetaminop [facility] en 300 en 300 hen 300 Medical mg-codeine mg-codeine mg-codeine 30 mg 30 mg 30 mg tablet Take tablet Take tablet 1 tablet 1 tablet Take 1 twice a day twice a day tablet by oral by oral twice a route as route as day by needed. needed. oral route as needed. amlodipine amlodipine No 1 Q1D amlodipine [facility] 10 mg 10 mg 10 mg [facility] tablet Take tablet Take tablet 1 tablet 1 tablet Take 1 every day every day tablet by oral by oral every day route for route for by oral 30 days. 30 days. route for 30 days. atorvastati atorvastati No 1 Q1D atorvastat [facility] n 20 mg n 20 mg in 20 mg [facility] al tablet Take tablet Take tablet 1 tablet 1 tablet Take 1 every day every day tablet by oral by oral every day route for route for by oral 30 days. 30 days. route for 30 days. calcium calcium No calcium [facility] acetate(aure acetate(aure acetate(ph [facility] sphate sphate osphate binders) binders) binders) 667 mg 667 mg 667 mg capsule 2 capsule 2 capsule 2 TID with TID with TID with meals and 1 meals and 1 meals and at bedtime at bedtime 1 at with snack with snack bedtime with snack carvedilol carvedilol No 1 BID carvedilol [facility] 25 mg 25 mg 25 mg [facility] tablet Take tablet Take tablet 1 tablet 1 tablet Take 1 twice a day twice a day tablet by oral by oral twice a route for route for day by 30 days. 30 days. oral route for 30 days. clonidine clonidine No 1 TID clonidine [facility] HCl 0.2 mg HCl 0.2 mg HCl 0.2 mg [facility] tablet Take tablet Take tablet 1 tablet 3 1 tablet 3 Take 1 times a day times a day tablet 3 by oral by oral times a route. route. day by oral route. fluticasone fluticasone No 1spray( Q1D fluticason [facility] propionate propionate s) e Med ical 50 50 propionate mcg/actuati mcg/actuati 50 on nasal on nasal mcg/actuat spray,suspe spray,suspe ion nasal nsion [place] nsion [place] spray,susp 1 spray 1 spray ension every day every day [place] 1 by nasal by nasal spray route for route for every day 30 days. 30 days. by nasal route for 30 days. hydralazine hydralazine No 1 BID hydralazin [facility] 100 mg 100 mg e 100 mg [facility] tablet Take tablet Take tablet 1 tablet 1 tablet Take 1 twice a day twice a day tablet by oral by oral twice a route for route for day by 30 days. 30 days. oral route for 30 days. lactulose lactulose No 30mL Q1D lactulose [facility] 10 gram/15 10 gram/15 10 gram/15 Medical mL oral mL oral mL oral solution solution solution Take 30 mL Take 30 mL Take 30 mL every day every day every day by oral by oral by oral route as route as route as needed for needed for needed for 15 days. 15 days. 15 days. Lokelma 5 [facility] 5 No Lok[facility] 5 [facility] gram oral gram oral gram oral Medical powder powder powder packet one packet one packet one a day on a day on a day on odd days odd days odd days Sun, Tues, Sun, Tues, Sun, Tues, Thur, Sat Thur, Sat Thur, Sat sertraline sertraline No 1 Q1D sertraline [facility] 100 mg 100 mg 100 mg [facility] tablet Take tablet Take tablet 1 tablet 1 tablet Take 1 every day every day tablet by oral by oral every day route at route at by oral bedtime for bedtime for route at 30 days. 30 days. bedtime for 30 days. [place] No [facility] [place] via 8.4 gram 8.4 gram 8.4 gram Med ical oral powder oral powder oral packet one packet one powder on non on non packet one dialysis dialysis on non days tue, days tue, dialysis thur, sat thur, sat days tue, , sat acetaminoph acetaminoph No 1 BID acetaminop [facility] en 300 en 300 hen 300 Medical mg-codeine mg-codeine mg-codeine 30 mg 30 mg 30 mg tablet Take tablet Take tablet 1 tablet 1 tablet Take 1 twice a day twice a day tablet by oral by oral twice a route as route as day by needed. needed. oral route as needed. amlodipine amlodipine No 1 Q1D amlodipine [facility] 10 mg 10 mg 10 mg [facility] tablet Take tablet Take tablet 1 tablet 1 tablet Take 1 every day every day tablet by oral by oral every day route for route for by oral 30 days. 30 days. route for 30 days. atorvastati atorvastati No 1 Q1D atorvastat [facility] n 20 mg n 20 mg in 20 mg [facility] al tablet Take tablet Take tablet 1 tablet 1 tablet Take 1 every day every day tablet by oral by oral every day route for route for by oral 30 days. 30 days. route for 30 days. calcium calcium No calcium [facility] acetate(aure acetate(aure acetate(ph [facility] sphate sphate osphate binders) binders) binders) 667 mg 667 mg 667 mg capsule 2 capsule 2 capsule 2 TID with TID with TID with meals and 1 meals and 1 meals and at bedtime at bedtime 1 at with snack with snack bedtime with snack carvedilol carvedilol No 1 BID carvedilol [facility] 25 mg 25 mg 25 mg [facility] tablet Take tablet Take tablet 1 tablet 1 tablet Take 1 twice a day twice a day tablet by oral by oral twice a route for route for day by 30 days. 30 days. oral route for 30 days. clonidine clonidine No 1.5 TID clonidine [facility] HCl 0.2 mg HCl 0.2 mg HCl 0.2 mg Medical tablet Take tablet Take tablet 1.5 tablets 1.5 tablets Take 1.5 3 times a 3 times a tablets 3 day by oral day by oral times a route. route. day by oral route. fluticasone fluticasone No 1spray( Q1D fluticason [facility] propionate propionate s) e Med ical 50 50 propionate mcg/actuati mcg/actuati 50 on nasal on nasal mcg/actuat spray,suspe spray,suspe ion nasal nsion [place] nsion [place] spray,susp 1 spray 1 spray ension every day every day [place] 1 by nasal by nasal spray route for route for every day 30 days. 30 days. by nasal route for 30 days. folic acid folic acid No 1 Q1D folic acid [facility] 1 mg tablet 1 mg tablet 1 mg M edical Take 1 Take 1 tablet tablet tablet Take 1 every day every day tablet by oral by oral every day route for route for by oral 30 days. 30 days. route for 30 days. hydralazine hydralazine No 1 BID hydralazin [facility] 100 mg 100 mg e 100 mg Medical tablet Take tablet Take tablet 1 tablet 1 tablet Take 1 twice a day twice a day tablet by oral by oral twice a route for route for day by 30 days. 30 days. oral route for 30 days. lactulose lactulose No 30mL Q1D lactulose [facility] 10 gram/15 10 gram/15 10 gram/15 Medical mL oral mL oral mL oral solution solution solution Take 30 mL Take 30 mL Take 30 mL every day every day every day by oral by oral by oral route as route as route as needed for needed for needed for 15 days. 15 days. 15 days. Lokelma 5 [facility] 5 No Lok[facility] 5 [facility] gram oral gram oral gram oral Medical powder powder powder packet one packet one packet one a day on a day on a day on odd days odd days odd days Sun, Tues, Sun, Tues, Sun, Tues, Thur, Sat Thur, Sat Thur, Sat sertraline sertraline No 1 Q1D sertraline [facility] 100 mg 100 mg 100 mg [facility] tablet Take tablet Take tablet 1 tablet 1 tablet Take 1 every day every day tablet by oral by oral every day route at route at by oral bedtime for bedtime for route at 30 days. 30 days. bedtime for 30 days. [place] No [facility] [place] via 8.4 gram 8.4 gram 8.4 gram Med ical oral powder oral powder oral packet one packet one powder on non on non packet one dialysis dialysis on non days tue, days tue, dialysis thur, sat thur, sat days fri, , fri acetaminoph acetaminoph No 1 BID acetaminop [facility] en 300 en 300 hen 300 Medical mg-codeine mg-codeine mg-codeine 30 mg 30 mg 30 mg tablet Take tablet Take tablet 1 tablet 1 tablet Take 1 twice a day twice a day tablet by oral by oral twice a route as route as day by needed. needed. oral route as needed. amlodipine amlodipine No 1 Q1D amlodipine [facility] 10 mg 10 mg 10 mg [facility] tablet Take tablet Take tablet 1 tablet 1 tablet Take 1 every day every day tablet by oral by oral every day route for route for by oral 30 days. 30 days. route for 30 days. atorvastati atorvastati No 1 Q1D atorvastat [facility] n 20 mg n 20 mg in 20 mg [facility] al tablet Take tablet Take tablet 1 tablet 1 tablet Take 1 every day every day tablet by oral by oral every day route for route for by oral 30 days. 30 days. route for 30 days. calcium calcium No calcium [facility] acetate(aure acetate(aure acetate(ph [facility] sphate sphate osphate binders) binders) binders) 667 mg 667 mg 667 mg capsule 2 capsule 2 capsule 2 TID with TID with TID with meals and 1 meals and 1 meals and at bedtime at bedtime 1 at with snack with snack bedtime with snack carvedilol carvedilol No 2 BID carvedilol [facility] 25 mg 25 mg 25 mg [facility] tablet Take tablet Take tablet 2 tablets 2 tablets Take 2 twice a day twice a day tablets by oral by oral twice a route for route for day by 30 days. 30 days. oral route for 30 days. clonidine clonidine No 1.5 TID clonidine [facility] HCl 0.2 mg HCl 0.2 mg HCl 0.2 mg Medical tablet Take tablet Take tablet 1.5 tablets 1.5 tablets Take 1.5 3 times a 3 times a tablets 3 day by oral day by oral times a route. route. day by oral route. ergocalcife ergocalcife No 1capsul Q1W ergocalcif [facility] rol rol e(s) [facility] (vitamin (vitamin (vitamin D2) 1,250 D2) 1,250 D2) 1,250 mcg (50,000 mcg (50,000 mcg unit) unit) (50,000 capsule capsule unit) Take 1 Take 1 capsule capsule capsule Take 1 every week every week capsule by oral by oral every week route. route. by oral route. fluticasone fluticasone No 1spray( Q1D fluticason [facility] propionate propionate s) e Med ical 50 50 propionate mcg/actuati mcg/actuati 50 on nasal on nasal mcg/actuat spray,suspe spray,suspe ion nasal nsion [place] nsion [place] spray,susp 1 spray 1 spray ension every day every day [place] 1 by nasal by nasal spray route for route for every day 30 days. 30 days. by nasal route for 30 days. folic acid folic acid No 1 Q1D folic acid [facility] 1 mg tablet 1 mg tablet 1 mg M edical Take 1 Take 1 tablet tablet tablet Take 1 every day every day tablet by oral by oral every day route for route for by oral 30 days. 30 days. route for 30 days. hydralazine hydralazine No 1 BID hydralazin [facility] 100 mg 100 mg e 100 mg [facility] tablet Take tablet Take tablet 1 tablet 1 tablet Take 1 twice a day twice a day tablet by oral by oral twice a route for route for day by 30 days. 30 days. oral route for 30 days. lactulose lactulose No 30mL Q1D lactulose [facility] 10 gram/15 10 gram/15 10 gram/15 Medical mL oral mL oral mL oral solution solution solution Take 30 mL Take 30 mL Take 30 mL every day every day every day by oral by oral by oral route as route as route as needed for needed for needed for 15 days. 15 days. 15 days. Lokelma 5 [facility] 5 No Lokelma 5 [facility] gram oral gram oral gram oral Medical powder powder powder packet one packet one packet one a day on a day on a day on odd days odd days odd days Sun, Tues, Sun, Tues, Sun, Tues, Thur, Sat Thur, Sat Thur, Sat sertraline sertraline No 1 Q1D sertraline [facility] 100 mg 100 mg 100 mg [facility] tablet Take tablet Take tablet 1 tablet 1 tablet Take 1 every day every day tablet by oral by oral every day route at route at by oral bedtime for bedtime for route at 30 days. 30 days. bedtime for 30 days. [place] No [facility] [place] via 8.4 gram 8.4 gram 8.4 gram Med ical oral powder oral powder oral packet one packet one powder on non on non packet one dialysis dialysis on non days tue, days tue, dialysis thur, sat thur, sat days fri, , sat acetaminoph acetaminoph No 1 BID acetaminop [facility] en 300 en 300 hen 300 Medical mg-codeine mg-codeine mg-codeine 30 mg 30 mg 30 mg tablet Take tablet Take tablet 1 tablet 1 tablet Take 1 twice a day twice a day tablet by oral by oral twice a route as route as day by needed. needed. oral route as needed. amlodipine amlodipine No 1 Q1D amlodipine [facility] 10 mg 10 mg 10 mg [facility] tablet Take tablet Take tablet 1 tablet 1 tablet Take 1 every day every day tablet by oral by oral every day route for route for by oral 30 days. 30 days. route for 30 days. atorvastati atorvastati No 1 Q1D atorvastat [facility] n 20 mg n 20 mg in 20 mg [facility] al tablet Take tablet Take tablet 1 tablet 1 tablet Take 1 every day every day tablet by oral by oral every day route for route for by oral 30 days. 30 days. route for 30 days. calcium calcium No calcium [facility] acetate(aure acetate(aure acetate(ph [facility] sphate sphate osphate binders) binders) binders) 667 mg 667 mg 667 mg capsule 2 capsule 2 capsule 2 TID with TID with TID with meals and 1 meals and 1 meals and at bedtime at bedtime 1 at with snack with snack bedtime with snack carvedilol carvedilol No 2 BID carvedilol [facility] 25 mg 25 mg 25 mg [facility] tablet Take tablet Take tablet 2 tablets 2 tablets Take 2 twice a day twice a day tablets by oral by oral twice a route for route for day by 30 days. 30 days. oral route for 30 days. clonidine clonidine No 1.5 TID clonidine [facility] HCl 0.2 mg HCl 0.2 mg HCl 0.2 mg Medical tablet Take tablet Take tablet 1.5 tablets 1.5 tablets Take 1.5 3 times a 3 times a tablets 3 day by oral day by oral times a route. route. day by oral route. ergocalcife ergocalcife No 1capsul Q1W ergocalcif [facility] rol rol e(s) [facility] (vitamin (vitamin (vitamin D2) 1,250 D2) 1,250 D2) 1,250 mcg (50,000 mcg (50,000 mcg unit) unit) (50,000 capsule capsule unit) Take 1 Take 1 capsule capsule capsule Take 1 every week every week capsule by oral by oral every week route. route. by oral route. ferrous ferrous No 1 BID ferrous [facility] sulfate 325 sulfate 325 sulfate Medical mg (65 mg mg (65 mg 325 mg (65 iron) iron) mg iron) tablet Take tablet Take tablet 1 tablet 1 tablet Take 1 twice a day twice a day tablet by oral by oral twice a route. route. day by oral route. fluticasone fluticasone No 1spray( Q1D fluticason [facility] propionate propionate s) e Med ical 50 50 propionate mcg/actuati mcg/actuati 50 on nasal on nasal mcg/actuat spray,suspe spray,suspe ion nasal nsion [place] nsion [place] spray,susp 1 spray 1 spray ension every day every day [place] 1 by nasal by nasal spray route for route for every day 30 days. 30 days. by nasal route for 30 days. folic acid folic acid No 1 Q1D folic acid [facility] 1 mg tablet 1 mg tablet 1 mg M edical Take 1 Take 1 tablet tablet tablet Take 1 every day every day tablet by oral by oral every day route for route for by oral 30 days. 30 days. route for 30 days. hydralazine hydralazine No 1 BID hydralazin [facility] 100 mg 100 mg e 100 mg [facility] tablet Take tablet Take tablet 1 tablet 1 tablet Take 1 twice a day twice a day tablet by oral by oral twice a route for route for day by 30 days. 30 days. oral route for 30 days. lactulose lactulose No 30mL Q1D lactulose [facility] 10 gram/15 10 gram/15 10 gram/15 Medical mL oral mL oral mL oral solution solution solution Take 30 mL Take 30 mL Take 30 mL every day every day every day by oral by oral by oral route as route as route as needed for needed for needed for 15 days. 15 days. 15 days. Lokelma 5 [facility] 5 No Lokelma 5 [facility] gram oral gram oral gram oral Medical powder powder powder packet one packet one packet one a day on a day on a day on odd days odd days odd days Sun, Tues, Sun, Tu, Sun, , Thur, Sat Thur, Sat Thur, Sat sertraline sertraline No 1 Q1D sertraline [facility] 100 mg 100 mg 100 mg [facility] tablet Take tablet Take tablet 1 tablet 1 tablet Take 1 every day every day tablet by oral by oral every day route at route at by oral bedtime for bedtime for route at 30 days. 30 days. bedtime for 30 days. [place] No [facility] [place] via 8.4 gram 8.4 gram 8.4 gram Med ical oral powder oral powder oral packet one packet one powder on non on non packet one dialysis dialysis on non days fri, days fri, dialysis thur, sat thur, sat days fri, , sat acetaminoph acetaminoph No 1 BID acetaminop [facility] en 300 en 300 hen 300 Medical mg-codeine mg-codeine mg-codeine 30 mg 30 mg 30 mg tablet Take tablet Take tablet 1 tablet 1 tablet Take 1 twice a day twice a day tablet by oral by oral twice a route as route as day by needed. needed. oral route as needed. amlodipine amlodipine No 1 Q1D amlodipine [facility] 10 mg 10 mg 10 mg [facility] tablet Take tablet Take tablet 1 tablet 1 tablet Take 1 every day every day tablet by oral by oral every day route for route for by oral 30 days. 30 days. route for 30 days. atorvastati atorvastati No 1 Q1D atorvastat [facility] n 20 mg n 20 mg in 20 mg [facility] al tablet Take tablet Take tablet 1 tablet 1 tablet Take 1 every day every day tablet by oral by oral every day route for route for by oral 30 days. 30 days. route for 30 days. calcium calcium No calcium [facility] acetate(aure acetate(aure acetate(ph Medical sphate sphate osphate binders) binders) binders) 667 mg 667 mg 667 mg capsule 2 capsule 2 capsule 2 TID with TID with TID with meals and 1 meals and 1 meals and at bedtime at bedtime 1 at with snack with snack bedtime with snack carvedilol carvedilol No 2 BID carvedilol [facility] 25 mg 25 mg 25 mg Medical tablet Take tablet Take tablet 2 tablets 2 tablets Take 2 twice a day twice a day tablets by oral by oral twice a route for route for day by 30 days. 30 days. oral route for 30 days. clonidine clonidine No 1.5 TID clonidine [facility] HCl 0.2 mg HCl 0.2 mg HCl 0.2 mg Medical tablet Take tablet Take tablet 1.5 tablets 1.5 tablets Take 1.5 3 times a 3 times a tablets 3 day by oral day by oral times a route. route. day by oral route. ergocalcife ergocalcife No 1capsul Q1W ergocalcif [facility] rol rol e(s) [facility] (vitamin (vitamin (vitamin D2) 1,250 D2) 1,250 D2) 1,250 mcg (50,000 mcg (50,000 mcg unit) unit) (50,000 capsule capsule unit) Take 1 Take 1 capsule capsule capsule Take 1 every week every week capsule by oral by oral every week route. route. by oral route. ferrous ferrous No 1 BID ferrous [facility] sulfate 325 sulfate 325 sulfate [facility] mg (65 mg mg (65 mg 325 mg (65 iron) iron) mg iron) tablet Take tablet Take tablet 1 tablet 1 tablet Take 1 twice a day twice a day tablet by oral by oral twice a route. route. day by oral route. fluticasone fluticasone No 1spray( Q1D fluticason [facility] propionate propionate s) e Med ical 50 50 propionate mcg/actuati mcg/actuati 50 on nasal on nasal mcg/actuat spray,suspe spray,suspe ion nasal nsion [place] nsion [place] spray,susp 1 spray 1 spray ension every day every day [place] 1 by nasal by nasal spray route for route for every day 30 days. 30 days. by nasal route for 30 days. folic acid folic acid No 1 Q1D folic acid [facility] 1 mg tablet 1 mg tablet 1 mg M edical Take 1 Take 1 tablet tablet tablet Take 1 every day every day tablet by oral by oral every day route for route for by oral 30 days. 30 days. route for 30 days. hydralazine hydralazine No 1 TID hydralazin [facility] 100 mg 100 mg e 100 mg [facility] tablet Take tablet Take tablet 1 tablet 3 1 tablet 3 Take 1 times a day times a day tablet 3 by oral by oral times a route for route for day by 30 days. 30 days. oral route for 30 days. lactulose lactulose No 30mL Q1D lactulose [facility] 10 gram/15 10 gram/15 10 gram/15 Medical mL oral mL oral mL oral solution solution solution Take 30 mL Take 30 mL Take 30 mL every day every day every day by oral by oral by oral route as route as route as needed for needed for needed for 15 days. 15 days. 15 days. Lokelma 5 [facility] 5 No Lok[facility] 5 [facility] gram oral gram oral gram oral Medical powder powder powder packet one packet one packet one a day on a day on a day on odd days odd days odd days Sun, Tues, Sun, Tues, Sun, Tues, Thur, Sat Thur, Sat Thur, Sat sertraline sertraline No 1 Q1D sertraline [facility] 100 mg 100 mg 100 mg [facility] tablet Take tablet Take tablet 1 tablet 1 tablet Take 1 every day every day tablet by oral by oral every day route at route at by oral bedtime for bedtime for route at 30 days. 30 days. bedtime for 30 days. [facility] [place] No [facility] [place] via 8.4 gram 8.4 gram 8.4 gram Med ical oral powder oral powder oral packet one packet one powder on non on non packet one dialysis dialysis on non days e, days tue, dialysis thur, sat thur, sat days tue, thur, sat acetaminoph acetaminoph No 1 BID acetaminop [facility] en 300 en 300 hen 300 Medical mg-codeine mg-codeine mg-codeine 30 mg 30 mg 30 mg tablet Take tablet Take tablet 1 tablet 1 tablet Take 1 twice a day twice a day tablet by oral by oral twice a route as route as day by needed. needed. oral route as needed. amlodipine amlodipine No 1 Q1D amlodipine [facility] 10 mg 10 mg 10 mg [facility] tablet Take tablet Take tablet 1 tablet 1 tablet Take 1 every day every day tablet by oral by oral every day route for route for by oral 30 days. 30 days. route for 30 days. atorvastati atorvastati No 1 Q1D atorvastat [facility] n 20 mg n 20 mg in 20 mg [facility] al tablet Take tablet Take tablet 1 tablet 1 tablet Take 1 every day every day tablet by oral by oral every day route for route for by oral 30 days. 30 days. route for 30 days. calcium calcium No calcium [facility] acetate(aure acetate(aure acetate([facility] sphate sphate osphate binders) binders) binders) 667 mg 667 mg 667 mg capsule 2 capsule 2 capsule 2 TID with TID with TID with meals and 1 meals and 1 meals and at bedtime at bedtime 1 at with snack with snack bedtime with snack carvedilol carvedilol No 2 BID carvedilol [facility] 25 mg 25 mg 25 mg [facility] tablet Take tablet Take tablet 2 tablets 2 tablets Take 2 twice a day twice a day tablets by oral by oral twice a route for route for day by 30 days. 30 days. oral route for 30 days. clonidine clonidine No 1.5 TID clonidine [facility] HCl 0.2 mg HCl 0.2 mg HCl 0.2 mg Medical tablet Take tablet Take tablet 1.5 tablets 1.5 tablets Take 1.5 3 times a 3 times a tablets 3 day by oral day by oral times a route. route. day by oral route. ergocalcife ergocalcife No 1capsul Q1W ergocalcif [facility] rol rol e(s) [facility] (vitamin (vitamin (vitamin D2) 1,250 D2) 1,250 D2) 1,250 mcg (50,000 mcg (50,000 mcg unit) unit) (50,000 capsule capsule unit) Take 1 Take 1 capsule capsule capsule Take 1 every week every week capsule by oral by oral every week route. route. by oral route. ferrous ferrous No 1 BID ferrous [facility] sulfate 325 sulfate 325 sulfate [facility] mg (65 mg mg (65 mg 325 mg (65 iron) iron) mg iron) tablet Take tablet Take tablet 1 tablet 1 tablet Take 1 twice a day twice a day tablet by oral by oral twice a route. route. day by oral route. fluticasone fluticasone No 1spray( Q1D fluticason [facility] propionate propionate s) e Med ical 50 50 propionate mcg/actuati mcg/actuati 50 on nasal on nasal mcg/actuat spray,suspe spray,suspe ion nasal nsion [place] nsion [place] spray,susp 1 spray 1 spray ension every day every day [place] 1 by nasal by nasal spray route for route for every day 30 days. 30 days. by nasal route for 30 days. folic acid folic acid No 1 Q1D folic acid [facility] 1 mg tablet 1 mg tablet 1 mg M edical Take 1 Take 1 tablet tablet tablet Take 1 every day every day tablet by oral by oral every day route for route for by oral 30 days. 30 days. route for 30 days. hydralazine hydralazine No 1 TID hydralazin [facility] 100 mg 100 mg e 100 mg [facility] tablet Take tablet Take tablet 1 tablet 3 1 tablet 3 Take 1 times a day times a day tablet 3 by oral by oral times a route for route for day by 30 days. 30 days. oral route for 30 days. lactulose lactulose No 30mL Q1D lactulose [facility] 10 gram/15 10 gram/15 10 gram/15 Medical mL oral mL oral mL oral solution solution solution Take 30 mL Take 30 mL Take 30 mL every day every day every day by oral by oral by oral route as route as route as needed for needed for needed for 15 days. 15 days. 15 days. Lokelma 5 [facility] 5 No Lok[facility] 5 [facility] gram oral gram oral gram oral Medical powder powder powder packet one packet one packet one a day on a day on a day on odd days odd days odd days Sun, Tues, Sun, Tues, Sun, Tues, Thur, Sat Thur, Sat Thur, Sat sertraline sertraline No 1 Q1D sertraline [facility] 100 mg 100 mg 100 mg [facility] tablet Take tablet Take tablet 1 tablet 1 tablet Take 1 every day every day tablet by oral by oral every day route at route at by oral bedtime for bedtime for route at 30 days. 30 days. bedtime for 30 days. [place] [facility] [place] via 8.4 gram 8.4 gram 8.4 gram Med ical oral powder oral powder oral packet one packet one powder on non on non packet one dialysis dialysis on non days tue, days tue, dialysis thur, sat thur, sat days tue, thur, sat acetaminoph acetaminoph No 1 BID acetaminop [facility] en 300 en 300 hen 300 Medical mg-codeine mg-codeine mg-codeine 30 mg 30 mg 30 mg tablet Take tablet Take tablet 1 tablet 1 tablet Take 1 twice a day twice a day tablet by oral by oral twice a route as route as day by needed. needed. oral route as needed. amlodipine amlodipine No 1 Q1D amlodipine [facility] 10 mg 10 mg 10 mg [facility] tablet Take tablet Take tablet 1 tablet 1 tablet Take 1 every day every day tablet by oral by oral every day route for route for by oral 30 days. 30 days. route for 30 days. atorvastati atorvastati No 1 Q1D atorvastat [facility] n 20 mg n 20 mg in 20 mg Medic al tablet Take tablet Take tablet 1 tablet 1 tablet Take 1 every day every day tablet by oral by oral every day route for route for by oral 30 days. 30 days. route for 30 days. calcium calcium No calcium [facility] acetate(aure acetate(aure acetate([facility] sphate sphate osphate binders) binders) binders) 667 mg 667 mg 667 mg capsule 2 capsule 2 capsule 2 TID with TID with TID with meals and 1 meals and 1 meals and at bedtime at bedtime 1 at with snack with snack bedtime with snack clonidine clonidine No 1.5 TID clonidine [facility] HCl 0.2 mg HCl 0.2 mg HCl 0.2 mg Medical tablet Take tablet Take tablet 1.5 tablets 1.5 tablets Take 1.5 3 times a 3 times a tablets 3 day by oral day by oral times a route. route. day by oral route. ergocalcife ergocalcife No 1capsul Q1W ergocalcif [facility] rol rol e(s) [facility] (vitamin (vitamin (vitamin D2) 1,250 D2) 1,250 D2) 1,250 mcg (50,000 mcg (50,000 mcg unit) unit) (50,000 capsule capsule unit) Take 1 Take 1 capsule capsule capsule Take 1 every week every week capsule by oral by oral every week route. route. by oral route. ferrous ferrous No 1 BID ferrous [facility] sulfate 325 sulfate 325 sulfate [facility] mg (65 mg mg (65 mg 325 mg (65 iron) iron) mg iron) tablet Take tablet Take tablet 1 tablet 1 tablet Take 1 twice a day twice a day tablet by oral by oral twice a route. route. day by oral route. fluticasone fluticasone No 1spray( Q1D fluticason [facility] propionate propionate s) e Med ical 50 50 propionate mcg/actuati mcg/actuati 50 on nasal on nasal mcg/actuat spray,suspe spray,suspe ion nasal nsion [place] nsion [place] spray,susp 1 spray 1 spray ension every day every day [place] 1 by nasal by nasal spray route for route for every day 30 days. 30 days. by nasal route for 30 days. folic acid folic acid No 1 Q1D folic acid [facility] 1 mg tablet 1 mg tablet 1 mg M edical Take 1 Take 1 tablet tablet tablet Take 1 every day every day tablet by oral by oral every day route for route for by oral 30 days. 30 days. route for 30 days. hydralazine hydralazine No 1 TID hydralazin [facility] 100 mg 100 mg e 100 mg [facility] tablet Take tablet Take tablet 1 tablet 3 1 tablet 3 Take 1 times a day times a day tablet 3 by oral by oral times a route for route for day by 30 days. 30 days. oral route for 30 days. lactulose lactulose No 30mL Q1D lactulose [facility] 10 gram/15 10 gram/15 10 gram/15 Medical mL oral mL oral mL oral solution solution solution Take 30 mL Take 30 mL Take 30 mL every day every day every day by oral by oral by oral route as route as route as needed for needed for needed for 15 days. 15 days. 15 days. Lok[facility]ma 5 [facility] 5 No [facility] 5 [facility] gram oral gram oral gram oral Medical powder powder powder packet one packet one packet one a day on a day on a day on odd days odd days odd days Sun, Tues, Sun, Tues, Sun, Tues, Thur, Sat Thur, Sat Thur, Sat sertraline sertraline No 1 Q1D sertraline [facility] 100 mg 100 mg 100 mg [facility] tablet Take tablet Take tablet 1 tablet 1 tablet Take 1 every day every day tablet by oral by oral every day route at route at by oral bedtime for bedtime for route at 30 days. 30 days. bedtime for 30 days. [place] [facility] [place] via 8.4 gram 8.4 gram 8.4 gram Med ical oral powder oral powder oral packet one packet one powder on non on non packet one dialysis dialysis on non days e, days tue, dialysis thur, sat thur, sat days tue, thur, sat acetaminoph acetaminoph No 1 BID acetaminop [facility] en 300 en 300 hen 300 Medical mg-codeine mg-codeine mg-codeine 30 mg 30 mg 30 mg tablet Take tablet Take tablet 1 tablet 1 tablet Take 1 twice a day twice a day tablet by oral by oral twice a route as route as day by needed. needed. oral route as needed. amlodipine amlodipine No 1 Q1D amlodipine [facility] 10 mg 10 mg 10 mg [facility] tablet Take tablet Take tablet 1 tablet 1 tablet Take 1 every day every day tablet by oral by oral every day route for route for by oral 30 days. 30 days. route for 30 days. atorvastati atorvastati No 1 Q1D atorvastat [facility] n 20 mg n 20 mg in 20 mg Medic al tablet Take tablet Take tablet 1 tablet 1 tablet Take 1 every day every day tablet by oral by oral every day route for route for by oral 30 days. 30 days. route for 30 days. calcium calcium No calcium [facility] acetate(aure acetate(aure acetate(ph [facility] sphate sphate osphate binders) binders) binders) 667 mg 667 mg 667 mg capsule 2 capsule 2 capsule 2 TID with TID with TID with meals and 1 meals and 1 meals and at bedtime at bedtime 1 at with snack with snack bedtime with snack clonidine clonidine No 1.5 TID clonidine [facility] HCl 0.2 mg HCl 0.2 mg HCl 0.2 mg Medical tablet Take tablet Take tablet 1.5 tablets 1.5 tablets Take 1.5 3 times a 3 times a tablets 3 day by oral day by oral times a route. route. day by oral route. ergocalcife ergocalcife No 1capsul Q1W ergocalcif [facility] rol rol e(s) [facility] (vitamin (vitamin (vitamin D2) 1,250 D2) 1,250 D2) 1,250 mcg (50,000 mcg (50,000 mcg unit) unit) (50,000 capsule capsule unit) Take 1 Take 1 capsule capsule capsule Take 1 every week every week capsule by oral by oral every week route. route. by oral route. ferrous ferrous No 1 BID ferrous [facility] sulfate 325 sulfate 325 sulfate [facility] mg (65 mg mg (65 mg 325 mg (65 iron) iron) mg iron) tablet Take tablet Take tablet 1 tablet 1 tablet Take 1 twice a day twice a day tablet by oral by oral twice a route. route. day by oral route. fluticasone fluticasone No 1spray( Q1D fluticason [facility] propionate propionate s) e Med ical 50 50 propionate mcg/actuati mcg/actuati 50 on nasal on nasal mcg/actuat spray,suspe spray,suspe ion nasal nsion [place] nsion [place] spray,susp 1 spray 1 spray ension every day every day [place] 1 by nasal by nasal spray route for route for every day 30 days. 30 days. by nasal route for 30 days. folic acid folic acid No 1 Q1D folic acid [facility] 1 mg tablet 1 mg tablet 1 mg M edical Take 1 Take 1 tablet tablet tablet Take 1 every day every day tablet by oral by oral every day route for route for by oral 30 days. 30 days. route for 30 days. hydralazine hydralazine No 1 TID hydralazin [facility] 100 mg 100 mg e 100 mg [facility] tablet Take tablet Take tablet 1 tablet 3 1 tablet 3 Take 1 times a day times a day tablet 3 by oral by oral times a route for route for day by 30 days. 30 days. oral route for 30 days. lactulose lactulose No 30mL Q1D lactulose [facility] 10 gram/15 10 gram/15 10 gram/15 Medical mL oral mL oral mL oral solution solution solution Take 30 mL Take 30 mL Take 30 mL every day every day every day by oral by oral by oral route as route as route as needed for needed for needed for 15 days. 15 days. 15 days. Lok[facility]ma 5 [facility] 5 No [facility] 5 [facility] gram oral gram oral gram oral Medical powder powder powder packet one packet one packet one a day on a day on a day on odd days odd days odd days Sun, Tues, Sun, Tues, Sun, Tues, Thur, Sat Thur, Sat Thur, Sat sertraline sertraline No 1 Q1D sertraline [facility] 100 mg 100 mg 100 mg [facility] tablet Take tablet Take tablet 1 tablet 1 tablet Take 1 every day every day tablet by oral by oral every day route at route at by oral bedtime for bedtime for route at 30 days. 30 days. bedtime for 30 days. [place] No [facility] [place] via 8.4 gram 8.4 gram 8.4 gram Med ical oral powder oral powder oral packet one packet one powder on non on non packet one dialysis dialysis on non days tue, days tue, dialysis thur, sat thur, sat days tue, thur, sat acetaminoph acetaminoph No 1 BID acetaminop [facility] en 300 en 300 hen 300 Medical mg-codeine mg-codeine mg-codeine 30 mg 30 mg 30 mg tablet Take tablet Take tablet 1 tablet 1 tablet Take 1 twice a day twice a day tablet by oral by oral twice a route as route as day by needed. needed. oral route as needed. amlodipine amlodipine No 1 Q1D amlodipine [facility] 10 mg 10 mg 10 mg [facility] tablet Take tablet Take tablet 1 tablet 1 tablet Take 1 every day every day tablet by oral by oral every day route for route for by oral 30 days. 30 days. route for 30 days. atorvastati atorvastati No 1 Q1D atorvastat [facility] n 20 mg n 20 mg in 20 mg [facility] al tablet Take tablet Take tablet 1 tablet 1 tablet Take 1 every day every day tablet by oral by oral every day route for route for by oral 30 days. 30 days. route for 30 days. calcium calcium No calcium [facility] acetate(aure acetate(aure acetate([facility] sphate sphate osphate binders) binders) binders) 667 mg 667 mg 667 mg capsule 2 capsule 2 capsule 2 TID with TID with TID with meals and 1 meals and 1 meals and at bedtime at bedtime 1 at with snack with snack bedtime with snack clonidine clonidine No 1.5 TID clonidine [facility] HCl 0.2 mg HCl 0.2 mg HCl 0.2 mg Medical tablet Take tablet Take tablet 1.5 tablets 1.5 tablets Take 1.5 3 times a 3 times a tablets 3 day by oral day by oral times a route. route. day by oral route. ergocalcife ergocalcife No 1capsul Q1W ergocalcif [facility] rol rol e(s) [facility] (vitamin (vitamin (vitamin D2) 1,250 D2) 1,250 D2) 1,250 mcg (50,000 mcg (50,000 mcg unit) unit) (50,000 capsule capsule unit) Take 1 Take 1 capsule capsule capsule Take 1 every week every week capsule by oral by oral every week route. route. by oral route. ferrous ferrous No 1 BID ferrous [facility] sulfate 325 sulfate 325 sulfate [facility] mg (65 mg mg (65 mg 325 mg (65 iron) iron) mg iron) tablet Take tablet Take tablet 1 tablet 1 tablet Take 1 twice a day twice a day tablet by oral by oral twice a route. route. day by oral route. fluticasone fluticasone No 1spray( Q1D fluticason [facility] propionate propionate s) e Med ical 50 50 propionate mcg/actuati mcg/actuati 50 on nasal on nasal mcg/actuat spray,suspe spray,suspe ion nasal nsion [place] nsion [place] spray,susp 1 spray 1 spray ension every day every day [place] 1 by nasal by nasal spray route for route for every day 30 days. 30 days. by nasal route for 30 days. folic acid folic acid No 1 Q1D folic acid [facility] 1 mg tablet 1 mg tablet 1 mg M edical Take 1 Take 1 tablet tablet tablet Take 1 every day every day tablet by oral by oral every day route for route for by oral 30 days. 30 days. route for 30 days. hydralazine hydralazine No 1 TID hydralazin [facility] 100 mg 100 mg e 100 mg [facility] tablet Take tablet Take tablet 1 tablet 3 1 tablet 3 Take 1 times a day times a day tablet 3 by oral by oral times a route for route for day by 30 days. 30 days. oral route for 30 days. lactulose lactulose No 30mL Q1D lactulose [facility] 10 gram/15 10 gram/15 10 gram/15 Medical mL oral mL oral mL oral solution solution solution Take 30 mL Take 30 mL Take 30 mL every day every day every day by oral by oral by oral route as route as route as needed for needed for needed for 15 days. 15 days. 15 days. Lok[place]ma 5 [facility] 5 No [facility] 5 [facility] gram oral gram oral gram oral Medical powder powder powder packet one packet one packet one a day on a day on a day on odd days odd days odd days Sun, Tues, Sun, Tues, Sun, Tues, Thur, Sat Thur, Sat Thur, Sat sertraline sertraline No 1 Q1D sertraline [facility] 100 mg 100 mg 100 mg [facility] tablet Take tablet Take tablet 1 tablet 1 tablet Take 1 every day every day tablet by oral by oral every day route at route at by oral bedtime for bedtime for route at 30 days. 30 days. bedtime for 30 days. [place] No [facility] [place] via 8.4 gram 8.4 gram 8.4 gram Med ical oral powder oral powder oral packet one packet one powder on non on non packet one dialysis dialysis on non days tue, days tue, dialysis thur, sat thur, sat days tue, thur, sat acetaminoph acetaminoph No 1 BID acetaminop [facility] en 300 en 300 hen 300 Medical mg-codeine mg-codeine mg-codeine 30 mg 30 mg 30 mg tablet Take tablet Take tablet 1 tablet 1 tablet Take 1 twice a day twice a day tablet by oral by oral twice a route as route as day by needed. needed. oral route as needed. amlodipine amlodipine No 1 Q1D amlodipine [facility] 10 mg 10 mg 10 mg [facility] tablet Take tablet Take tablet 1 tablet 1 tablet Take 1 every day every day tablet by oral by oral every day route for route for by oral 30 days. 30 days. route for 30 days. atorvastati atorvastati No 1 Q1D atorvastat [facility] n 20 mg n 20 mg in 20 mg [facility] al tablet Take tablet Take tablet 1 tablet 1 tablet Take 1 every day every day tablet by oral by oral every day route for route for by oral 30 days. 30 days. route for 30 days. calcium calcium No calcium [facility] acetate(aure acetate(aure acetate([facility] sphate sphate osphate binders) binders) binders) 667 mg 667 mg 667 mg capsule 2 capsule 2 capsule 2 TID with TID with TID with meals and 1 meals and 1 meals and at bedtime at bedtime 1 at with snack with snack bedtime with snack clonidine clonidine No 1.5 TID clonidine [facility] HCl 0.2 mg HCl 0.2 mg HCl 0.2 mg Medical tablet Take tablet Take tablet 1.5 tablets 1.5 tablets Take 1.5 3 times a 3 times a tablets 3 day by oral day by oral times a route. route. day by oral route. ergocalcife ergocalcife No 1capsul Q1W ergocalcif [facility] rol rol e(s) [facility] (vitamin (vitamin (vitamin D2) 1,250 D2) 1,250 D2) 1,250 mcg (50,000 mcg (50,000 mcg unit) unit) (50,000 capsule capsule unit) Take 1 Take 1 capsule capsule capsule Take 1 every week every week capsule by oral by oral every week route. route. by oral route. ferrous ferrous No 1 BID ferrous [facility] sulfate 325 sulfate 325 sulfate [facility] mg (65 mg mg (65 mg 325 mg (65 iron) iron) mg iron) tablet Take tablet Take tablet 1 tablet 1 tablet Take 1 twice a day twice a day tablet by oral by oral twice a route. route. day by oral route. fluticasone fluticasone No 1spray( Q1D fluticason [facility] propionate propionate s) e Med ical 50 50 propionate mcg/actuati mcg/actuati 50 on nasal on nasal mcg/actuat spray,suspe spray,suspe ion nasal nsion [place] nsion [place] spray,susp 1 spray 1 spray ension every day every day [place] 1 by nasal by nasal spray route for route for every day 30 days. 30 days. by nasal route for 30 days. folic acid folic acid No 1 Q1D folic acid [facility] 1 mg tablet 1 mg tablet 1 mg M edical Take 1 Take 1 tablet tablet tablet Take 1 every day every day tablet by oral by oral every day route for route for by oral 30 days. 30 days. route for 30 days. hydralazine hydralazine No 1 TID hydralazin [facility] 100 mg 100 mg e 100 mg [facility] tablet Take tablet Take tablet 1 tablet 3 1 tablet 3 Take 1 times a day times a day tablet 3 by oral by oral times a route for route for day by 30 days. 30 days. oral route for 30 days. lactulose lactulose No 30mL Q1D lactulose [facility] 10 gram/15 10 gram/15 10 gram/15 Medical mL oral mL oral mL oral solution solution solution Take 30 mL Take 30 mL Take 30 mL every day every day every day by oral by oral by oral route as route as route as needed for needed for needed for 15 days. 15 days. 15 days. Lok[place]ma 5 [facility] 5 No [facility] 5 [facility] gram oral gram oral gram oral Medical powder powder powder packet one packet one packet one a day on a day on a day on odd days odd days odd days Sun, Tues, Sun, Tues, Sun, Tues, Thur, Sat Thur, Sat Thur, Sat sertraline sertraline No 1 Q1D sertraline [facility] 100 mg 100 mg 100 mg [facility] tablet Take tablet Take tablet 1 tablet 1 tablet Take 1 every day every day tablet by oral by oral every day route at route at by oral bedtime for bedtime for route at 30 days. 30 days. bedtime for 30 days. [place] No [facility] [place] via 8.4 gram 8.4 gram 8.4 gram Med ical oral powder oral powder oral packet one packet one powder on non on non packet one dialysis dialysis on non days tu, days tue, dialysis thur, sat thur, sat days fri, , sat acetaminoph acetaminoph No 1 BID acetaminop [facility] en 300 en 300 hen 300 Medical mg-codeine mg-codeine mg-codeine 30 mg 30 mg 30 mg tablet Take tablet Take tablet 1 tablet 1 tablet Take 1 twice a day twice a day tablet by oral by oral twice a route as route as day by needed. needed. oral route as needed. amlodipine amlodipine No 1 Q1D amlodipine [facility] 10 mg 10 mg 10 mg [facility] tablet Take tablet Take tablet 1 tablet 1 tablet Take 1 every day every day tablet by oral by oral every day route for route for by oral 30 days. 30 days. route for 30 days. atorvastati atorvastati No 1 Q1D atorvastat [facility] n 20 mg n 20 mg in 20 mg Medic al tablet Take tablet Take tablet 1 tablet 1 tablet Take 1 every day every day tablet by oral by oral every day route for route for by oral 30 days. 30 days. route for 30 days. calcium calcium No calcium [facility] acetate(aure acetate(aure acetate(ph Medical sphate sphate osphate binders) binders) binders) 667 mg 667 mg 667 mg capsule 2 capsule 2 capsule 2 TID with TID with TID with meals and 1 meals and 1 meals and at bedtime at bedtime 1 at with snack with snack bedtime with snack clonidine clonidine No 1.5 TID clonidine [facility] HCl 0.2 mg HCl 0.2 mg HCl 0.2 mg Medical tablet Take tablet Take tablet 1.5 tablets 1.5 tablets Take 1.5 3 times a 3 times a tablets 3 day by oral day by oral times a route. route. day by oral route. ergocalcife ergocalcife No 1capsul Q1W ergocalcif [facility] rol rol e(s) [facility] (vitamin (vitamin (vitamin D2) 1,250 D2) 1,250 D2) 1,250 mcg (50,000 mcg (50,000 mcg unit) unit) (50,000 capsule capsule unit) Take 1 Take 1 capsule capsule capsule Take 1 every week every week capsule by oral by oral every week route. route. by oral route. ferrous ferrous No 1 BID ferrous [facility] sulfate 325 sulfate 325 sulfate Medical mg (65 mg mg (65 mg 325 mg (65 iron) iron) mg iron) tablet Take tablet Take tablet 1 tablet 1 tablet Take 1 twice a day twice a day tablet by oral by oral twice a route. route. day by oral route. fluticasone fluticasone No 1spray( Q1D fluticason [facility] propionate propionate s) e Med ical 50 50 propionate mcg/actuati mcg/actuati 50 on nasal on nasal mcg/actuat spray,suspe spray,suspe ion nasal nsion [place] nsion [place] spray,susp 1 spray 1 spray ension every day every day [place] 1 by nasal by nasal spray route for route for every day 30 days. 30 days. by nasal route for 30 days. folic acid folic acid No 1 Q1D folic acid [facility] 1 mg tablet 1 mg tablet 1 mg M edical Take 1 Take 1 tablet tablet tablet Take 1 every day every day tablet by oral by oral every day route for route for by oral 30 days. 30 days. route for 30 days. hydralazine hydralazine No 1 TID hydralazin [facility] 100 mg 100 mg e 100 mg [facility] tablet Take tablet Take tablet 1 tablet 3 1 tablet 3 Take 1 times a day times a day tablet 3 by oral by oral times a route for route for day by 30 days. 30 days. oral route for 30 days. lactulose lactulose No 30mL Q1D lactulose [facility] 10 gram/15 10 gram/15 10 gram/15 Medical mL oral mL oral mL oral solution solution solution Take 30 mL Take 30 mL Take 30 mL every day every day every day by oral by oral by oral route as route as route as needed for needed for needed for 15 days. 15 days. 15 days. Lokelma 5 Lokelma 5 No Lokelma 5 [facility] gram oral gram oral gram oral Medical powder powder powder packet one packet one packet one a day on a day on a day on odd days odd days odd days Sun, Tues, Sun, Tues, Sun, Tues, Thur, Sat Thur, Sat Thur, Sat metoprolol metoprolol No 1 BID metoprolol [facility] tartrate tartrate tartrate Med ical 100 mg 100 mg 100 mg tablet Take tablet Take tablet 1 tablet 1 tablet Take 1 twice a day twice a day tablet by oral by oral twice a route. route. day by oral route. omeprazole omeprazole No 1capsul Q1D omeprazole [facility] 20 mg 20 mg e(s) 20 mg [facility] capsule,del capsule,del capsule,de ayed ayed layed release release release Take 1 Take 1 Take 1 capsule capsule capsule every day every day every day by oral by oral by oral route. route. route. sertraline sertraline No 1 Q1D sertraline [facility] 100 mg 100 mg 100 mg [facility] tablet Take tablet Take tablet 1 tablet 1 tablet Take 1 every day every day tablet by oral by oral every day route at route at by oral bedtime for bedtime for route at 30 days. 30 days. bedtime for 30 days. [place] No [facility] [place] via 8.4 gram 8.4 gram 8.4 gram Med ical oral powder oral powder oral packet one packet one powder on non on non packet one dialysis dialysis on non days tue, days tue, dialysis thur, sat thur, sat days tue, thur, sat acetaminoph acetaminoph No 1 BID acetaminop [facility] en 300 en 300 hen 300 Medical mg-codeine mg-codeine mg-codeine 30 mg 30 mg 30 mg tablet Take tablet Take tablet 1 tablet 1 tablet Take 1 twice a day twice a day tablet by oral by oral twice a route as route as day by needed. needed. oral route as needed. amlodipine amlodipine No 1 Q1D amlodipine [facility] 10 mg 10 mg 10 mg [facility] tablet Take tablet Take tablet 1 tablet 1 tablet Take 1 every day every day tablet by oral by oral every day route for route for by oral 30 days. 30 days. route for 30 days. atorvastati atorvastati No 1 Q1D atorvastat [facility] n 20 mg n 20 mg in 20 mg Medic al tablet Take tablet Take tablet 1 tablet 1 tablet Take 1 every day every day tablet by oral by oral every day route for route for by oral 30 days. 30 days. route for 30 days. calcium calcium No calcium [facility] acetate(aure acetate(aure acetate(ph [facility] sphate sphate osphate binders) binders) binders) 667 mg 667 mg 667 mg capsule 2 capsule 2 capsule 2 TID with TID with TID with meals and 1 meals and 1 meals and at bedtime at bedtime 1 at with snack with snack bedtime with snack clonidine clonidine No 1.5 TID clonidine [facility] HCl 0.2 mg HCl 0.2 mg HCl 0.2 mg Medical tablet Take tablet Take tablet 1.5 tablets 1.5 tablets Take 1.5 3 times a 3 times a tablets 3 day by oral day by oral times a route. route. day by oral route. ergocalcife ergocalcife No 1capsul Q1W ergocalcif [facility] rol rol e(s) [facility] (vitamin (vitamin (vitamin D2) 1,250 D2) 1,250 D2) 1,250 mcg (50,000 mcg (50,000 mcg unit) unit) (50,000 capsule capsule unit) Take 1 Take 1 capsule capsule capsule Take 1 every week every week capsule by oral by oral every week route. route. by oral route. ferrous ferrous No 1 BID ferrous [facility] sulfate 325 sulfate 325 sulfate Medical mg (65 mg mg (65 mg 325 mg (65 iron) iron) mg iron) tablet Take tablet Take tablet 1 tablet 1 tablet Take 1 twice a day twice a day tablet by oral by oral twice a route. route. day by oral route. fluticasone fluticasone No 1spray( Q1D fluticason [facility] propionate propionate s) e Med ical 50 50 propionate mcg/actuati mcg/actuati 50 on nasal on nasal mcg/actuat spray,suspe spray,suspe ion nasal nsion [place] nsion [place] spray,susp 1 spray 1 spray ension every day every day [place] 1 by nasal by nasal spray route for route for every day 30 days. 30 days. by nasal route for 30 days. folic acid folic acid No 1 Q1D folic acid [facility] 1 mg tablet 1 mg tablet 1 mg M edical Take 1 Take 1 tablet tablet tablet Take 1 every day every day tablet by oral by oral every day route for route for by oral 30 days. 30 days. route for 30 days. hydralazine hydralazine No 1 TID hydralazin [facility] 100 mg 100 mg e 100 mg [facility] tablet Take tablet Take tablet 1 tablet 3 1 tablet 3 Take 1 times a day times a day tablet 3 by oral by oral times a route for route for day by 30 days. 30 days. oral route for 30 days. lactulose lactulose No 30mL Q1D lactulose [facility] 10 gram/15 10 gram/15 10 gram/15 Medical mL oral mL oral mL oral solution solution solution Take 30 mL Take 30 mL Take 30 mL every day every day every day by oral by oral by oral route as route as route as needed for needed for needed for 15 days. 15 days. 15 days. Lokelma 5 [facility] 5 No [facility] 5 [facility] gram oral gram oral gram oral Medical powder powder powder packet one packet one packet one a day on a day on a day on odd days odd days odd days Sun, Tues, Sun, Tues, Sun, Tues, Thur, Sat Thur, Sat Thur, Sat metoprolol metoprolol No 1 BID metoprolol [facility] tartrate tartrate tartrate Med ical 100 mg 100 mg 100 mg tablet Take tablet Take tablet 1 tablet 1 tablet Take 1 twice a day twice a day tablet by oral by oral twice a route. route. day by oral route. omeprazole omeprazole No 1capsul Q1D omeprazole [facility] 20 mg 20 mg e(s) 20 mg [facility] capsule,del capsule,del capsule,de ayed ayed layed release release release Take 1 Take 1 Take 1 capsule capsule capsule every day every day every day by oral by oral by oral route. route. route. sertraline sertraline No 1 Q1D sertraline [facility] 100 mg 100 mg 100 mg [facility] tablet Take tablet Take tablet 1 tablet 1 tablet Take 1 every day every day tablet by oral by oral every day route at route at by oral bedtime for bedtime for route at 30 days. 30 days. bedtime for 30 days. [place] [place] via 8.4 gram 8.4 gram 8.4 gram Med ical oral powder oral powder oral packet one packet one powder on non on non packet one dialysis dialysis on non days fri, days fri, dialysis thur, sat thur, sat days fri, thur, sat acetaminoph acetaminoph No 1 BID acetaminop [facility] en 300 en 300 hen 300 Medical mg-codeine mg-codeine mg-codeine 30 mg 30 mg 30 mg tablet Take tablet Take tablet 1 tablet 1 tablet Take 1 twice a day twice a day tablet by oral by oral twice a route as route as day by needed for needed for oral route 30 days. 30 days. as needed for 30 days. amlodipine amlodipine No amlodipine [facility] 10 mg 10 mg 10 mg [facility] tablet Take tablet Take tablet 1 tablet 1 tablet Take 1 every day every day tablet by oral by oral every day route for route for by oral 30 days. 30 days. route for 30 days. aspirin 81 aspirin 81 No 1 Q1D aspirin 81 [facility] mg mg mg [facility] tablet,joy tablet,joy tablet,del yed release yed release ayed Take 1 Take 1 release tablet tablet Take 1 every day every day tablet by oral by oral every day route for route for by oral 30 days. 30 days. route for 30 days. atorvastati atorvastati No atorvastat [facility] n 20 mg n 20 mg in 20 mg Medic al tablet Take tablet Take tablet 1 tablet 1 tablet Take 1 every day every day tablet by oral by oral every day route for route for by oral 30 days. 30 days. route for 30 days. calcium calcium No calcium [facility] acetate(aure acetate(aure acetate(ph [facility] sphate sphate osphate binders) binders) binders) 667 mg 667 mg 667 mg capsule 2 capsule 2 capsule 2 TID with TID with TID with meals and 1 meals and 1 meals and at bedtime at bedtime 1 at with snack with snack bedtime with snack clonidine clonidine No 1 TID clonidine [facility] HCl 0.2 mg HCl 0.2 mg HCl 0.2 mg Medical tablet Take tablet Take tablet 1 tablet 3 1 tablet 3 Take 1 times a day times a day tablet 3 by oral by oral times a route as route as day by needed. needed. oral route as needed. ergocalcife ergocalcife No ergocalcif [facility] (vitamin (vitamin (vitamin D2) 1,250 D2) 1,250 D2) 1,250 mcg (50,000 mcg (50,000 mcg unit) unit) (50,000 capsule capsule unit) Take 1 Take 1 capsule capsule capsule Take 1 every week every week capsule by oral by oral every week route. route. by oral route. ferrous ferrous No 1 BID ferrous [facility] sulfate 325 sulfate 325 sulfate Medical mg (65 mg mg (65 mg 325 mg (65 iron) iron) mg iron) tablet Take tablet Take tablet 1 tablet 1 tablet Take 1 twice a day twice a day tablet by oral by oral twice a route. route. day by oral route. fluticasone fluticasone No 1spray( Q1D fluticason [facility] propionate propionate s) e Med ical 50 50 propionate mcg/actuati mcg/actuati 50 on nasal on nasal mcg/actuat spray,suspe spray,suspe ion nasal nsion [place] nsion [place] spray,susp 1 spray 1 spray ension every day every day [place] 1 by nasal by nasal spray route for route for every day 30 days. 30 days. by nasal route for 30 days. folic acid folic acid No folic acid [facility] 1 mg tablet 1 mg tablet 1 mg M edical Take 1 Take 1 tablet tablet tablet Take 1 every day every day tablet by oral by oral every day route for route for by oral 30 days. 30 days. route for 30 days. hydralazine hydralazine No 1 TID hydralazin [facility] 100 mg 100 mg e 100 mg Medical tablet Take tablet Take tablet 1 tablet 3 1 tablet 3 Take 1 times a day times a day tablet 3 by oral by oral times a route for route for day by 30 days. 30 days. oral route for 30 days. lactulose lactulose No lactulose [facility] 10 gram/15 10 gram/15 10 gram/15 Medical mL oral mL oral mL oral solution solution solution Take 30 mL Take 30 mL Take 30 mL every day every day every day by oral by oral by oral route as route as route as needed for needed for needed for 15 days. 15 days. 15 days. lisinopril lisinopril No lisinopril [facility] 40 mg 40 mg 40 mg [facility] tablet tablet tablet [place] 5 [place] 5 No [place] 5 [facility] gram oral gram oral gram oral Medical powder powder powder packet one packet one packet one a day on a day on a day on odd days odd days odd days Sun, Tues, Sun, Tues, Sun, Tues, Thur, Sat Thur, Sat Thur, Sat metoprolol metoprolol No metoprolol [facility] tartrate tartrate tartrate Med ical 100 mg 100 mg 100 mg tablet Take tablet Take tablet 1 tablet 1 tablet Take 1 twice a day twice a day tablet by oral by oral twice a route. route. day by oral route. omeprazole omeprazole No omeprazole [facility] 20 mg 20 mg 20 mg [facility] capsule,del capsule,del capsule,de ayed ayed layed release release release Take 1 Take 1 Take 1 capsule capsule capsule every day every day every day by oral by oral by oral route. route. route. sertraline sertraline No sertraline [facility] 100 mg 100 mg 100 mg [facility] tablet Take tablet Take tablet 1 tablet 1 tablet Take 1 every day every day tablet by oral by oral every day route at route at by oral bedtime for bedtime for route at 30 days. 30 days. bedtime for 30 days. [place] via 8.4 gram 8.4 gram 8.4 gram Med ical oral powder oral powder oral packet one packet one powder on non on non packet one dialysis dialysis on non days fri, days tue, dialysis thur, sat thur, sat days fri, , sat acetaminoph acetaminoph No 1 BID acetaminop [facility] en 300 en 300 hen 300 Medical mg-codeine mg-codeine mg-codeine 30 mg 30 mg 30 mg tablet Take tablet Take tablet 1 tablet 1 tablet Take 1 twice a day twice a day tablet by oral by oral twice a route as route as day by needed for needed for oral route 30 days. 30 days. as needed for 30 days. amlodipine amlodipine No amlodipine [facility] 10 mg 10 mg 10 mg [facility] tablet Take tablet Take tablet 1 tablet 1 tablet Take 1 every day every day tablet by oral by oral every day route for route for by oral 30 days. 30 days. route for 30 days. aspirin 81 aspirin 81 No 1 Q1D aspirin 81 [facility] mg mg mg Medical tablet,joy tablet,joy tablet,del yed release yed release ayed Take 1 Take 1 release tablet tablet Take 1 every day every day tablet by oral by oral every day route for route for by oral 30 days. 30 days. route for 30 days. atorvastati atorvastati No atorvastat [facility] n 20 mg n 20 mg in 20 mg Medic al tablet Take tablet Take tablet 1 tablet 1 tablet Take 1 every day every day tablet by oral by oral every day route for route for by oral 30 days. 30 days. route for 30 days. calcium calcium No calcium [facility] acetate(aure acetate(aure acetate(ph [facility] sphate sphate osphate binders) binders) binders) 667 mg 667 mg 667 mg capsule 2 capsule 2 capsule 2 TID with TID with TID with meals and 1 meals and 1 meals and at bedtime at bedtime 1 at with snack with snack bedtime with snack clonidine clonidine No 1 TID clonidine [facility] HCl 0.2 mg HCl 0.2 mg HCl 0.2 mg Medical tablet Take tablet Take tablet 1 tablet 3 1 tablet 3 Take 1 times a day times a day tablet 3 by oral by oral times a route as route as day by needed. needed. oral route as needed. ergocalcife ergocalcife No ergocalcif [facility] rol rol [facility] (vitamin (vitamin (vitamin D2) 1,250 D2) 1,250 D2) 1,250 mcg (50,000 mcg (50,000 mcg unit) unit) (50,000 capsule capsule unit) Take 1 Take 1 capsule capsule capsule Take 1 every week every week capsule by oral by oral every week route. route. by oral route. ferrous ferrous No 1 BID ferrous [facility] sulfate 325 sulfate 325 sulfate Medical mg (65 mg mg (65 mg 325 mg (65 iron) iron) mg iron) tablet Take tablet Take tablet 1 tablet 1 tablet Take 1 twice a day twice a day tablet by oral by oral twice a route. route. day by oral route. fluticasone fluticasone No 1spray( Q1D fluticason [facility] propionate propionate s) e Med ical 50 50 propionate mcg/actuati mcg/actuati 50 on nasal on nasal mcg/actuat spray,suspe spray,suspe ion nasal nsion [place] nsion [place] spray,susp 1 spray 1 spray ension every day every day [place] 1 by nasal by nasal spray route for route for every day 30 days. 30 days. by nasal route for 30 days. folic acid folic acid No folic acid [facility] 1 mg tablet 1 mg tablet 1 mg M edical Take 1 Take 1 tablet tablet tablet Take 1 every day every day tablet by oral by oral every day route for route for by oral 30 days. 30 days. route for 30 days. hydralazine hydralazine No 1 TID hydralazin [facility] 100 mg 100 mg e 100 mg Medical tablet Take tablet Take tablet 1 tablet 3 1 tablet 3 Take 1 times a day times a day tablet 3 by oral by oral times a route for route for day by 30 days. 30 days. oral route for 30 days. lactulose lactulose No lactulose [facility] 10 gram/15 10 gram/15 10 gram/15 Medical mL oral mL oral mL oral solution solution solution Take 30 mL Take 30 mL Take 30 mL every day every day every day by oral by oral by oral route as route as route as needed for needed for needed for 15 days. 15 days. 15 days. lisinopril lisinopril No lisinopril [facility] 40 mg 40 mg 40 mg [facility] tablet tablet tablet [place] 5 [place] 5 No [place] 5 [facility] gram oral gram oral gram oral Medical powder powder powder packet one packet one packet one a day on a day on a day on odd days odd days odd days Sun, Tues, Sun, Tues, Sun, Tu, Thur, Sat Thur, Sat Thur, Sat metoprolol metoprolol No metoprolol [facility] tartrate tartrate tartrate Med ical 100 mg 100 mg 100 mg tablet Take tablet Take tablet 1 tablet 1 tablet Take 1 twice a day twice a day tablet by oral by oral twice a route. route. day by oral route. omeprazole omeprazole No omeprazole [facility] 20 mg 20 mg 20 mg [facility] capsule,del capsule,del capsule,de ayed ayed layed release release release Take 1 Take 1 Take 1 capsule capsule capsule every day every day every day by oral by oral by oral route. route. route. sertraline sertraline No sertraline [facility] 100 mg 100 mg 100 mg [facility] tablet Take tablet Take tablet 1 tablet 1 tablet Take 1 every day every day tablet by oral by oral every day route at route at by oral bedtime for bedtime for route at 30 days. 30 days. bedtime for 30 days. [place] No [place] [place] via 8.4 gram 8.4 gram 8.4 gram Med ical oral powder oral powder oral packet one packet one powder on non on non packet one dialysis dialysis on non days fri, days fri, dialysis thur, sat thur, sat days fri, , sat acetaminoph acetaminoph No acetaminop [facility] en 300 en 300 hen 300 Medical mg-codeine mg-codeine mg-codeine 60 mg 60 mg 60 mg tablet Take tablet Take tablet 1 tablet 1 tablet Take 1 every 6 every 6 tablet hours by hours by every 6 oral route oral route hours by as needed as needed oral route for 10 for 10 as needed days. days. for 10 days. amlodipine amlodipine No amlodipine [facility] 10 mg 10 mg 10 mg [facility] tablet Take tablet Take tablet 1 tablet 1 tablet Take 1 every day every day tablet by oral by oral every day route for route for by oral 30 days. 30 days. route for 30 days. aspirin 81 aspirin 81 No 1 Q1D aspirin 81 [facility] mg mg mg Medical tablet,joy tablet,joy tablet,del yed release yed release ayed Take 1 Take 1 release tablet tablet Take 1 every day every day tablet by oral by oral every day route for route for by oral 30 days. 30 days. route for 30 days. atorvastati atorvastati No atorvastat [facility] n 20 mg n 20 mg in 20 mg Medic al tablet Take tablet Take tablet 1 tablet 1 tablet Take 1 every day every day tablet by oral by oral every day route for route for by oral 30 days. 30 days. route for 30 days. calcium calcium No calcium [facility] acetate(aure acetate(aure acetate(ph Medical sphate sphate osphate binders) binders) binders) 667 mg 667 mg 667 mg capsule 2 capsule 2 capsule 2 TID with TID with TID with meals and 1 meals and 1 meals and at bedtime at bedtime 1 at with snack with snack bedtime with snack clonidine clonidine No 1 TID clonidine [facility] HCl 0.2 mg HCl 0.2 mg HCl 0.2 mg Medical tablet Take tablet Take tablet 1 tablet 3 1 tablet 3 Take 1 times a day times a day tablet 3 by oral by oral times a route as route as day by needed. needed. oral route as needed. ergocalcife ergocalcife No ergocalcif [facility] (vitamin (vitamin (vitamin D2) 1,250 D2) 1,250 D2) 1,250 mcg (50,000 mcg (50,000 mcg unit) unit) (50,000 capsule capsule unit) Take 1 Take 1 capsule capsule capsule Take 1 every week every week capsule by oral by oral every week route. route. by oral route. ferrous ferrous No 1 BID ferrous [facility] sulfate 325 sulfate 325 sulfate Medical mg (65 mg mg (65 mg 325 mg (65 iron) iron) mg iron) tablet Take tablet Take tablet 1 tablet 1 tablet Take 1 twice a day twice a day tablet by oral by oral twice a route. route. day by oral route. fluticasone fluticasone No 1spray( Q1D fluticason [facility] propionate propionate s) e Med ical 50 50 propionate mcg/actuati mcg/actuati 50 on nasal on nasal mcg/actuat spray,suspe spray,suspe ion nasal nsion [place] nsion [place] spray,susp 1 spray 1 spray ension every day every day [place] 1 by nasal by nasal spray route for route for every day 30 days. 30 days. by nasal route for 30 days. folic acid folic acid No folic acid [facility] 1 mg tablet 1 mg tablet 1 mg M edical Take 1 Take 1 tablet tablet tablet Take 1 every day every day tablet by oral by oral every day route for route for by oral 30 days. 30 days. route for 30 days. hydralazine hydralazine No hydralazin [facility] 100 mg 100 mg e 100 mg Medical tablet Take tablet Take tablet 1 tablet 3 1 tablet 3 Take 1 times a day times a day tablet 3 by oral by oral times a route for route for day by 30 days. 30 days. oral route for 30 days. lactulose lactulose No lactulose [facility] 10 gram/15 10 gram/15 10 gram/15 Medical mL oral mL oral mL oral solution solution solution Take 30 mL Take 30 mL Take 30 mL every day every day every day by oral by oral by oral route as route as route as needed for needed for needed for 15 days. 15 days. 15 days. lisinopril lisinopril No lisinopril [facility] 40 mg 40 mg 40 mg [facility] tablet tablet tablet [place] 5 [facility] 5 No [place] 5 [facility] gram oral gram oral gram oral Medical powder powder powder packet one packet one packet one a day on a day on a day on odd days odd days odd days Sun, Tues, Sun, Tues, Sun, Tues, Thur, Sat Thur, Sat Thur, Sat metoprolol metoprolol No metoprolol [facility] tartrate tartrate tartrate Med ical 100 mg 100 mg 100 mg tablet Take tablet Take tablet 1 tablet 1 tablet Take 1 twice a day twice a day tablet by oral by oral twice a route. route. day by oral route. omeprazole omeprazole No omeprazole [facility] 20 mg 20 mg 20 mg [facility] capsule,del capsule,del capsule,de ayed ayed layed release release release Take 1 Take 1 Take 1 capsule capsule capsule every day every day every day by oral by oral by oral route. route. route. sertraline sertraline No sertraline [facility] 100 mg 100 mg 100 mg Medical tablet Take tablet Take tablet 1 tablet 1 tablet Take 1 every day every day tablet by oral by oral every day route at route at by oral bedtime for bedtime for route at 30 days. 30 days. bedtime for 30 days. [place] No [place] [place] via 8.4 gram 8.4 gram 8.4 gram Med ical oral powder oral powder oral packet ONE packet ONE powder PACKET PACKET packet ONE MIXED WITH MIXED WITH PACKET 3OZ OF 3OZ OF MIXED WITH WATER TO BE WATER TO BE 3OZ OF GIVEN ON T, GIVEN ON T, WATER TO , S TH, S BE GIVEN (NON-DIALYS (NON-DIALYS ON T, TH, IS DAYS) IS DAYS) S (NON-DIALY SIS DAYS) acetaminoph acetaminoph No acetaminop [facility] en 300 en 300 hen 300 Medical mg-codeine mg-codeine mg-codeine 60 mg 60 mg 60 mg tablet Take tablet Take tablet 1 tablet 1 tablet Take 1 every 6 every 6 tablet hours by hours by every 6 oral route oral route hours by as needed as needed oral route for 10 for 10 as needed days. days. for 10 days. amlodipine amlodipine No amlodipine [facility] 10 mg 10 mg 10 mg Medical tablet Take tablet Take tablet 1 tablet 1 tablet Take 1 every day every day tablet by oral by oral every day route for route for by oral 30 days. 30 days. route for 30 days. aspirin 81 aspirin 81 No 1 Q1D aspirin 81 [facility] mg mg mg Medical tablet,joy tablet,joy tablet,del yed release yed release ayed Take 1 Take 1 release tablet tablet Take 1 every day every day tablet by oral by oral every day route for route for by oral 30 days. 30 days. route for 30 days. atorvastati atorvastati No atorvastat [facility] n 20 mg n 20 mg in 20 mg Medic al tablet Take tablet Take tablet 1 tablet 1 tablet Take 1 every day every day tablet by oral by oral every day route for route for by oral 30 days. 30 days. route for 30 days. calcium calcium No calcium [facility] acetate(aure acetate(aure acetate(ph Medical sphate sphate osphate binders) binders) binders) 667 mg 667 mg 667 mg capsule 2 capsule 2 capsule 2 TID with TID with TID with meals and 1 meals and 1 meals and at bedtime at bedtime 1 at with snack with snack bedtime with snack clonidine clonidine No 1 TID clonidine [facility] HCl 0.2 mg HCl 0.2 mg HCl 0.2 mg Medical tablet Take tablet Take tablet 1 tablet 3 1 tablet 3 Take 1 times a day times a day tablet 3 by oral by oral times a route as route as day by needed. needed. oral route as needed. ergocalcife ergocalcife No ergocalcif [facility] rol rol [facility] (vitamin (vitamin (vitamin D2) 1,250 D2) 1,250 D2) 1,250 mcg (50,000 mcg (50,000 mcg unit) unit) (50,000 capsule capsule unit) Take 1 Take 1 capsule capsule capsule Take 1 every week every week capsule by oral by oral every week route. route. by oral route. ferrous ferrous No 1 BID ferrous [facility] sulfate 325 sulfate 325 sulfate Medical mg (65 mg mg (65 mg 325 mg (65 iron) iron) mg iron) tablet Take tablet Take tablet 1 tablet 1 tablet Take 1 twice a day twice a day tablet by oral by oral twice a route. route. day by oral route. fluticasone fluticasone No 1spray( Q1D fluticason [facility] propionate propionate s) e Med ical 50 50 propionate mcg/actuati mcg/actuati 50 on nasal on nasal mcg/actuat spray,suspe spray,suspe ion nasal nsion [place] nsion [place] spray,susp 1 spray 1 spray ension every day every day [place] 1 by nasal by nasal spray route for route for every day 30 days. 30 days. by nasal route for 30 days. folic acid folic acid No folic acid [facility] 1 mg tablet 1 mg tablet 1 mg M edical Take 1 Take 1 tablet tablet tablet Take 1 every day every day tablet by oral by oral every day route for route for by oral 30 days. 30 days. route for 30 days. hydralazine hydralazine No hydralazin [facility] 100 mg 100 mg e 100 mg Medical tablet Take tablet Take tablet 1 tablet 3 1 tablet 3 Take 1 times a day times a day tablet 3 by oral by oral times a route for route for day by 30 days. 30 days. oral route for 30 days. lactulose lactulose No lactulose [facility] 10 gram/15 10 gram/15 10 gram/15 Medical mL oral mL oral mL oral solution solution solution Take 30 mL Take 30 mL Take 30 mL every day every day every day by oral by oral by oral route as route as route as needed for needed for needed for 15 days. 15 days. 15 days. lisinopril lisinopril No lisinopril [facility] 40 mg 40 mg 40 mg [facility] tablet tablet tablet [place] 5 [facility] 5 No [place] 5 [facility] gram oral gram oral gram oral Medical powder powder powder packet one packet one packet one a day on a day on a day on odd days odd days odd days Sun, Tues, Sun, Tues, Sun, Tues, Thur, Sat Thur, Sat Thur, Sat metoprolol metoprolol No metoprolol [facility] tartrate tartrate tartrate Med ical 100 mg 100 mg 100 mg tablet Take tablet Take tablet 1 tablet 1 tablet Take 1 twice a day twice a day tablet by oral by oral twice a route. route. day by oral route. omeprazole omeprazole No omeprazole [facility] 20 mg 20 mg 20 mg [facility] capsule,del capsule,del capsule,de ayed ayed layed release release release Take 1 Take 1 Take 1 capsule capsule capsule every day every day every day by oral by oral by oral route. route. route. sertraline sertraline No sertraline [facility] 100 mg 100 mg 100 mg [facility] tablet Take tablet Take tablet 1 tablet 1 tablet Take 1 every day every day tablet by oral by oral every day route at route at by oral bedtime for bedtime for route at 30 days. 30 days. bedtime for 30 days. [place] [place] via 8.4 gram 8.4 gram 8.4 gram Med ical oral powder oral powder oral packet ONE packet ONE powder PACKET PACKET packet ONE MIXED WITH MIXED WITH PACKET 3OZ OF 3OZ OF MIXED WITH WATER TO BE WATER TO BE 3OZ OF GIVEN ON T, GIVEN ON T, WATER TO , S TH, S BE GIVEN (NON-DIALYS (NON-DIALYS ON T, TH, IS DAYS) IS DAYS) S (NON-DIALY SIS DAYS) amlodipine amlodipine No amlodipine [facility] 10 mg 10 mg 10 mg [facility] tablet Take tablet Take tablet 1 tablet 1 tablet Take 1 every day every day tablet by oral by oral every day route for route for by oral 30 days. 30 days. route for 30 days. aspirin 81 aspirin 81 No 1 Q1D aspirin 81 [facility] mg mg mg Medical tablet,joy tablet,joy tablet,del yed release yed release ayed Take 1 Take 1 release tablet tablet Take 1 every day every day tablet by oral by oral every day route for route for by oral 30 days. 30 days. route for 30 days. atorvastati atorvastati No atorvastat [facility] n 20 mg n 20 mg in 20 mg Medic al tablet Take tablet Take tablet 1 tablet 1 tablet Take 1 every day every day tablet by oral by oral every day route for route for by oral 30 days. 30 days. route for 30 days. calcium calcium No calcium [facility] acetate(aure acetate(aure acetate(ph Medical sphate sphate osphate binders) binders) binders) 667 mg 667 mg 667 mg capsule 2 capsule 2 capsule 2 TID with TID with TID with meals and 1 meals and 1 meals and at bedtime at bedtime 1 at with snack with snack bedtime with snack clonidine clonidine No 1 TID clonidine [facility] HCl 0.2 mg HCl 0.2 mg HCl 0.2 mg Medical tablet Take tablet Take tablet 1 tablet 3 1 tablet 3 Take 1 times a day times a day tablet 3 by oral by oral times a route as route as day by needed. needed. oral route as needed. ergocalcife ergocalcife No ergocalcif [facility] (vitamin (vitamin (vitamin D2) 1,250 D2) 1,250 D2) 1,250 mcg (50,000 mcg (50,000 mcg unit) unit) (50,000 capsule capsule unit) Take 1 Take 1 capsule capsule capsule Take 1 every week every week capsule by oral by oral every week route. route. by oral route. ferrous ferrous No 1 BID ferrous [facility] sulfate 325 sulfate 325 sulfate Medical mg (65 mg mg (65 mg 325 mg (65 iron) iron) mg iron) tablet Take tablet Take tablet 1 tablet 1 tablet Take 1 twice a day twice a day tablet by oral by oral twice a route. route. day by oral route. fluticasone fluticasone No 1spray( Q1D fluticason [facility] propionate propionate s) e Med ical 50 50 propionate mcg/actuati mcg/actuati 50 on nasal on nasal mcg/actuat spray,suspe spray,suspe ion nasal nsion [place] nsion [place] spray,susp 1 spray 1 spray ension every day every day [place] 1 by nasal by nasal spray route for route for every day 30 days. 30 days. by nasal route for 30 days. folic acid folic acid No folic acid [facility] 1 mg tablet 1 mg tablet 1 mg M edical Take 1 Take 1 tablet tablet tablet Take 1 every day every day tablet by oral by oral every day route for route for by oral 30 days. 30 days. route for 30 days. hydralazine hydralazine No hydralazin [facility] 100 mg 100 mg e 100 mg Medical tablet Take tablet Take tablet 1 tablet 3 1 tablet 3 Take 1 times a day times a day tablet 3 by oral by oral times a route for route for day by 30 days. 30 days. oral route for 30 days. lactulose lactulose No lactulose [facility] 10 gram/15 10 gram/15 10 gram/15 Medical mL oral mL oral mL oral solution solution solution Take 30 mL Take 30 mL Take 30 mL every day every day every day by oral by oral by oral route as route as route as needed for needed for needed for 15 days. 15 days. 15 days. lisinopril lisinopril No lisinopril [facility] 40 mg 40 mg 40 mg [facility] tablet tablet tablet [place] 5 [facility] 5 No [place] 5 [facility] gram oral gram oral gram oral Medical powder powder powder packet one packet one packet one a day on a day on a day on odd days odd days odd days Sun, Tues, Sun, Tues, Sun, Tues, Thur, Sat Thur, Sat Thur, Sat metoprolol metoprolol No metoprolol [facility] tartrate tartrate tartrate Med ical 100 mg 100 mg 100 mg tablet Take tablet Take tablet 1 tablet 1 tablet Take 1 twice a day twice a day tablet by oral by oral twice a route. route. day by oral route. omeprazole omeprazole No omeprazole [facility] 20 mg 20 mg 20 mg [facility] capsule,del capsule,del capsule,de ayed ayed layed release release release Take 1 Take 1 Take 1 capsule capsule capsule every day every day every day by oral by oral by oral route. route. route. sertraline sertraline No sertraline [facility] 100 mg 100 mg 100 mg [facility] tablet Take tablet Take tablet 1 tablet 1 tablet Take 1 every day every day tablet by oral by oral every day route at route at by oral bedtime for bedtime for route at 30 days. 30 days. bedtime for 30 days. [place] via 8.4 gram 8.4 gram 8.4 gram Med ical oral powder oral powder oral packet ONE packet ONE powder PACKET PACKET packet ONE MIXED WITH MIXED WITH PACKET 3OZ OF 3OZ OF MIXED WITH WATER TO BE WATER TO BE 3OZ OF GIVEN ON T, GIVEN ON T, WATER TO TH, S TH, S BE GIVEN (NON-DIALYS (NON-DIALYS ON T, TH, IS DAYS) IS DAYS) S (NON-DIALY SIS DAYS) acetaminoph acetaminoph No 1 BID acetaminop [facility] en 300 en 300 hen 300 Medical mg-codeine mg-codeine mg-codeine 30 mg 30 mg 30 mg tablet Take tablet Take tablet 1 tablet 1 tablet Take 1 twice a day twice a day tablet by oral by oral twice a route as route as day by needed for needed for oral route 30 days. 30 days. as needed for 30 days. amlodipine amlodipine No amlodipine [facility] 10 mg 10 mg 10 mg [facility] tablet Take tablet Take tablet 1 tablet 1 tablet Take 1 every day every day tablet by oral by oral every day route for route for by oral 30 days. 30 days. route for 30 days. aspirin 81 aspirin 81 No 1 Q1D aspirin 81 [facility] mg mg mg Medical tablet,joy tablet,joy tablet,del yed release yed release ayed Take 1 Take 1 release tablet tablet Take 1 every day every day tablet by oral by oral every day route for route for by oral 30 days. 30 days. route for 30 days. atorvastati atorvastati No atorvastat [facility] n 20 mg n 20 mg in 20 mg [facility] al tablet Take tablet Take tablet 1 tablet 1 tablet Take 1 every day every day tablet by oral by oral every day route for route for by oral 30 days. 30 days. route for 30 days. calcium calcium No 3 TID calcium [facility] acetate 667 acetate 667 acetate Medical mg tablet mg tablet 667 mg Take 3 Take 3 tablet tablets 3 tablets 3 Take 3 times a day times a day tablets 3 by oral by oral times a route with route with day by meals for meals for oral route 30 days. 30 days. with meals for 30 days. calcium calcium No calcium [facility] acetate(aure acetate(aure acetate(ph Medical sphate sphate osphate binders) binders) binders) 667 mg 667 mg 667 mg capsule 2 capsule 2 capsule 2 TID with TID with TID with meals and 1 meals and 1 meals and at bedtime at bedtime 1 at with snack with snack bedtime with snack carvedilol carvedilol No 1 BID carvedilol [facility] 25 mg 25 mg 25 mg [facility] tablet Take tablet Take tablet 1 tablet 1 tablet Take 1 twice a day twice a day tablet by oral by oral twice a route. route. day by oral route. clonidine clonidine No 1patch( Q1W clonidine [facility] 0.1 mg/24 0.1 mg/24 es) 0.1 mg/24 Medical hr weekly hr weekly hr weekly transdermal transdermal transderma patch Apply patch Apply l patch 1 patch 1 patch Apply 1 every week every week patch by by every week transdermal transdermal by route. route. transderma l route. ergocalcife ergocalcife No ergocalcif [facility] (vitamin (vitamin (vitamin D2) 1,250 D2) 1,250 D2) 1,250 mcg (50,000 mcg (50,000 mcg unit) unit) (50,000 capsule capsule unit) Take 1 Take 1 capsule capsule capsule Take 1 every week every week capsule by oral by oral every week route. route. by oral route. ferrous ferrous No 1 BID ferrous [facility] sulfate 325 sulfate 325 sulfate Medical mg (65 mg mg (65 mg 325 mg (65 iron) iron) mg iron) tablet Take tablet Take tablet 1 tablet 1 tablet Take 1 twice a day twice a day tablet by oral by oral twice a route. route. day by oral route. fluticasone fluticasone No 1spray( Q1D fluticason [facility] propionate propionate s) e Med ical 50 50 propionate mcg/actuati mcg/actuati 50 on nasal on nasal mcg/actuat spray,suspe spray,suspe ion nasal nsion [place] nsion [place] spray,susp 1 spray 1 spray ension every day every day [place] 1 by nasal by nasal spray route for route for every day 30 days. 30 days. by nasal route for 30 days. folic acid folic acid No folic acid [facility] 1 mg tablet 1 mg tablet 1 mg M edical Take 1 Take 1 tablet tablet tablet Take 1 every day every day tablet by oral by oral every day route for route for by oral 30 days. 30 days. route for 30 days. hydralazine hydralazine No hydralazin [facility] 100 mg 100 mg e 100 mg Medical tablet Take tablet Take tablet 1 tablet 3 1 tablet 3 Take 1 times a day times a day tablet 3 by oral by oral times a route for route for day by 30 days. 30 days. oral route for 30 days. lactulose lactulose No lactulose [facility] 10 gram/15 10 gram/15 10 gram/15 Medical mL oral mL oral mL oral solution solution solution Take 30 mL Take 30 mL Take 30 mL every day every day every day by oral by oral by oral route as route as route as needed for needed for needed for 15 days. 15 days. 15 days. Lokelma 5 [facility] 5 No [place] 5 [facility] gram oral gram oral gram oral Medical powder powder powder packet one packet one packet one a day on a day on a day on odd days odd days odd days Sun, Tues, Sun, Tues, Sun, Tues, Thur, Sat Thur, Sat Thur, Sat omeprazole omeprazole No omeprazole [facility] 20 mg 20 mg 20 mg [facility] capsule,del capsule,del capsule,de ayed ayed layed release release release Take 1 Take 1 Take 1 capsule capsule capsule every day every day every day by oral by oral by oral route. route. route. sertraline sertraline No sertraline [facility] 100 mg 100 mg 100 mg [facility] tablet Take tablet Take tablet 1 tablet 1 tablet Take 1 every day every day tablet by oral by oral every day route at route at by oral bedtime for bedtime for route at 30 days. 30 days. bedtime for 30 days. vancomycin vancomycin No vancomycin [facility] 750 mg 750 mg 750 mg Medical intravenous intravenous intravenou solution solution s solution 750 mg once 750 mg once 750 mg a day at a day at once a day [facility] [place] [facility] [place] [place] via 8.4 gram 8.4 gram 8.4 gram Med ical oral powder oral powder oral packet ONE packet ONE powder PACKET PACKET packet ONE MIXED WITH MIXED WITH PACKET 3OZ OF 3OZ OF MIXED WITH WATER TO BE WATER TO BE 3OZ OF GIVEN ON T, GIVEN ON T, WATER TO TH, S TH, S BE GIVEN (NON-DIALYS (NON-DIALYS ON T, TH, IS DAYS) IS DAYS) S (NON-DIALY SIS DAYS) acetaminoph acetaminoph No 1 BID acetaminop [facility] en 300 en 300 hen 300 Medical mg-codeine mg-codeine mg-codeine 30 mg 30 mg 30 mg tablet Take tablet Take tablet 1 tablet 1 tablet Take 1 twice a day twice a day tablet by oral by oral twice a route as route as day by needed for needed for oral route 30 days. 30 days. as needed for 30 days. amlodipine amlodipine No amlodipine [facility] 10 mg 10 mg 10 mg [facility] tablet Take tablet Take tablet 1 tablet 1 tablet Take 1 every day every day tablet by oral by oral every day route for route for by oral 30 days. 30 days. route for 30 days. aspirin 81 aspirin 81 No 1 Q1D aspirin 81 [facility] mg mg mg Medical tablet,joy tablet,joy tablet,del yed release yed release ayed Take 1 Take 1 release tablet tablet Take 1 every day every day tablet by oral by oral every day route for route for by oral 30 days. 30 days. route for 30 days. atorvastati atorvastati No atorvastat [facility] n 20 mg n 20 mg in 20 mg [facility] al tablet Take tablet Take tablet 1 tablet 1 tablet Take 1 every day every day tablet by oral by oral every day route for route for by oral 30 days. 30 days. route for 30 days. calcium calcium No 3 TID calcium [facility] acetate 667 acetate 667 acetate Medical mg tablet mg tablet 667 mg Take 3 Take 3 tablet tablets 3 tablets 3 Take 3 times a day times a day tablets 3 by oral by oral times a route with route with day by meals for meals for oral route 30 days. 30 days. with meals for 30 days. calcium calcium No calcium [facility] acetate(aure acetate(aure acetate(ph Medical sphate sphate osphate binders) binders) binders) 667 mg 667 mg 667 mg capsule 2 capsule 2 capsule 2 TID with TID with TID with meals and 1 meals and 1 meals and at bedtime at bedtime 1 at with snack with snack bedtime with snack carvedilol carvedilol No 1 BID carvedilol [facility] 25 mg 25 mg 25 mg [facility] tablet Take tablet Take tablet 1 tablet 1 tablet Take 1 twice a day twice a day tablet by oral by oral twice a route. route. day by oral route. clonidine clonidine No 1patch( Q1W clonidine [facility] 0.1 mg/24 0.1 mg/24 es) 0.1 mg/24 Medical hr weekly hr weekly hr weekly transdermal transdermal transderma patch Apply patch Apply l patch 1 patch 1 patch Apply 1 every week every week patch by by every week transdermal transdermal by route. route. transderma l route. tramadol 50 tramadol 50 No 1 Q6H tramadol [place] mg tablet mg tablet 50 mg da Take 1 Take 1 tablet Medical tablet tablet Take 1 Group every 6 every 6 tablet hours by hours by every 6 oral route oral route hours by as needed as needed oral route for 30 for 30 as needed days. days. for 30 days. Immunizations Ordered Filled Immunization Date Status Comments [facility] e Immunization Name Name pneumococcal, pneumococcal, 2021-03-06 Completed [facility] unspecified unspecified 00:00:00 formulation formulation pneumococcal, pneumococcal, 2021-03-06 Completed [facility] unspecified unspecified 00:00:00 formulation formulation pneumococcal, pneumococcal, 2021-03-06 Completed [facility] unspecified unspecified 00:00:00 formulation formulation pneumococcal, pneumococcal, 2021-03-06 Completed [facility] unspecified unspecified 00:00:00 formulation formulation pneumococcal, pneumococcal, 2021-03-06 Completed [facility] unspecified unspecified 00:00:00 formulation formulation pneumococcal, pneumococcal, 2021-03-06 Completed [facility] unspecified unspecified 00:00:00 formulation formulation pneumococcal, pneumococcal, 2021-03-06 Completed [facility] unspecified unspecified 00:00:00 formulation formulation pneumococcal, pneumococcal, 2021-03-06 Completed [facility] unspecified unspecified 00:00:00 formulation formulation pneumococcal, pneumococcal, 2021-03-06 Completed [facility] unspecified unspecified 00:00:00 formulation formulation pneumococcal, pneumococcal, 2021-03-06 Completed [facility] unspecified unspecified 00:00:00 formulation formulation pneumococcal, pneumococcal, 2021-03-06 Completed [facility] unspecified unspecified 00:00:00 formulation formulation pneumococcal, pneumococcal, 2021-03-06 Completed [facility] unspecified unspecified 00:00:00 formulation formulation pneumococcal, pneumococcal, 2021-03-06 Completed [facility] unspecified unspecified 00:00:00 formulation formulation pneumococcal, pneumococcal, 2021-03-06 Completed [facility] unspecified unspecified 00:00:00 formulation formulation pneumococcal, pneumococcal, 2021-03-06 Completed [facility] unspecified unspecified 00:00:00 formulation formulation pneumococcal, pneumococcal, 2021-03-06 Completed [facility] unspecified unspecified 00:00:00 formulation formulation pneumococcal, pneumococcal, 2021-03-06 Completed [facility] unspecified unspecified 00:00:00 formulation formulation pneumococcal, pneumococcal, 2021-03-06 Completed [facility] unspecified unspecified 00:00:00 formulation formulation pneumococcal, pneumococcal, 2021-03-06 Completed [facility] unspecified unspecified 00:00:00 formulation formulation pneumococcal, pneumococcal, 2021-03-06 Completed [facility] unspecified unspecified 00:00:00 formulation formulation pneumococcal, pneumococcal, 2021-03-06 Completed [facility] unspecified unspecified 00:00:00 formulation formulation pneumococcal, pneumococcal, 2021-03-06 Completed [facility] unspecified unspecified 00:00:00 formulation formulation pneumococcal, pneumococcal, 2021-03-06 Completed [facility] unspecified unspecified 00:00:00 formulation formulation pneumococcal, pneumococcal, 2021-03-06 Completed [facility] unspecified unspecified 00:00:00 formulation formulation pneumococcal, pneumococcal, 2021-03-06 Completed [facility] unspecified unspecified 00:00:00 formulation formulation Pneumococcal 2016-07-03 Completed [facility] Pol[facility], [facility]00 [place] [facility] PPSV23 (PNEUMOVAX) Branch Influenza Virus 2016-07-03 Completed [facility] Quad IM 3+ 00:00:00 [facility] Pneumococcal 2016-07-03 Completed [facility] f Polysaccharide, 00:00:00 [place] [facility] PPSV23 (PNEUMOVAX) Branch Influenza Virus 2016-07-03 Completed [facility] Vaccine Quad IM 3+ 00:00:00 [facility] Pneumococcal 2016-07-03 Completed [facility] f Polysaccharide, 00:00:00 [place] [facility] PPSV23 (PNEUMOVAX) Branch Influenza Virus 2016-07-03 Completed [facility] Vaccine Quad IM 3+ 00:00:00 [facility] Pneumococcal 2016-07-03 Completed [facility] o f Polysaccharide, 00:00:00 [facility] PPSV23 (PNEUMOVAX) Branch Influenza Virus 2016-07-03 Completed [facility] Vaccine Quad IM 3+ 00:00:00 [facility] Vital Signs Vital Name Observation Time Observation Value Comments Source BP Diastolic 2022-04-16 00:00:00 82 mm[Hg] [facility] Height 2022-04-16 00:00:00 66 [in_i] [facility] BMI (Body Mass 2022-04-16 00:00:00 27.1 kg/m2 [facility] Medical Index) BP Systolic 2022-04-16 00:00:00 147 mm[Hg] [facility] Body Weight 2022-04-16 00:00:00 2688 [oz_av] [facility] BP Diastolic 2022-04-02 00:00:00 97 mm[Hg] [facility] Height 2022-04-02 00:00:00 66 [in_i] [facility] BMI (Body Mass 2022-04-02 00:00:00 28.4 kg/m2 [facility] Medical Index) BP Systolic 2022-04-02 00:00:00 157 mm[Hg] [facility] Body Weight 2022-04-02 00:00:00 2816 [oz_av] [facility] BP Diastolic 2022-03-12 00:00:00 88 mm[Hg] [facility] Height 2022-03-12 00:00:00 66 [in_i] [facility] BMI (Body Mass 2022-03-12 00:00:00 26.8 kg/m2 [facility] Medical Index) BP Systolic 2022-03-12 00:00:00 139 mm[Hg] [facility] Body Weight 2022-03-12 00:00:00 2656 [oz_av] [facility] BP Diastolic 2022-03-05 00:00:00 85 mm[Hg] [facility] Height 2022-03-05 00:00:00 66 [in_i] [facility] BMI (Body Mass 2022-03-05 00:00:00 27.8 kg/m2 [facility]) BP Systolic 2022-03-05 00:00:00 158 mm[Hg] [facility] Body Weight 2022-03-05 00:00:00 2752 [oz_av] [facility] BP Diastolic 2022-02-19 00:00:00 79 mm[Hg] [facility] Height 2022-02-19 00:00:00 66 [in_i] [facility] BMI (Body Mass 2022-02-19 00:00:00 27.9 kg/m2 [facility] Index) BP Systolic 2022-02-19 00:00:00 152 mm[Hg] [facility] Body Weight 2022-02-19 00:00:00 2768 [oz_av] [facility] BP Diastolic 2022-02-05 00:00:00 80 mm[Hg] [facility] Height 2022-02-05 00:00:00 66 [in_i] [facility] BMI (Body Mass 2022-02-05 00:00:00 27.8 kg/m2 [facility] Index) BP Systolic 2022-02-05 00:00:00 144 mm[Hg] [facility] Body Weight 2022-02-05 00:00:00 2752 [oz_av] [facility] BP Diastolic 2022-01-18 00:00:00 77 mm[Hg] [facility] Height 2022-01-18 00:00:00 66 [in_i] [facility] BMI (Body Mass 2022-01-18 00:00:00 27.3 kg/m2 [facility] Index) BP Systolic 2022-01-18 00:00:00 138 mm[Hg] [facility] Body Weight 2022-01-18 00:00:00 2704 [oz_av] [facility] BP Diastolic 2022-01-04 00:00:00 89 mm[Hg] [facility] Height 2022-01-04 00:00:00 66 [in_i] [facility] BMI (Body Mass 2022-01-04 00:00:00 28.1 kg/m2 [facility] Index) BP Systolic 2022-01-04 00:00:00 149 mm[Hg] [facility] Body Weight 2022-01-04 00:00:00 2784 [oz_av] [facility] Systolic blood 2021-12-25 18:44:00 146 mm[Hg] [facility] of pressure [facility] Diastolic blood 2021-12-25 18:44:00 96 mm[Hg] Unive rsity of pressure [facility] Heart rate 2021-12-25 18:44:00 70 /min [facility] Body height 2021-12-25 18:34:00 [facility] 2021-12-25 18:34:00 80.423 kg [facility] BMI 2021-12-25 18:34:00 26.96 kg/m2 [facility] Oxygen saturation in 2021-12-25 18:34:00 97 /min [facility] blood by [facility] Pulse oximetry Branch BP Diastolic 2021-12-25 00:00:00 75 mm[Hg] Jimmy Nicole [facility]ical Height 2021-12-25 00:00:00 66 [in_i] Jimmy Nicole [facility] BMI (Body Mass 2021-12-25 00:00:00 28.4 kg/m2 [facility] Index) BP Systolic 2021-12-25 00:00:00 147 mm[Hg] [facility] Body Weight 2021-12-25 00:00:00 2816 [oz_av] Jimmy [facility] BP Diastolic 2021-12-11 00:00:00 89 mm[Hg] [facility] Height 2021-12-11 00:00:00 66 [in_i] Jimmy [facility] BMI (Body Mass 2021-12-11 00:00:00 28.2 kg/m2 [facility] Index) BP Systolic 2021-12-11 00:00:00 139 mm[Hg] [facility] Body Weight 2021-12-11 00:00:00 2792 [oz_av] [facility] BP Diastolic 2021-11-23 00:00:00 67 mm[Hg] Jimmy [facility] Height 2021-11-23 00:00:00 66 [in_i] [facility] BMI (Body Mass 2021-11-23 00:00:00 27.8 kg/m2 [facility]) BP Systolic 2021-11-23 00:00:00 134 mm[Hg] [facility] Body Weight 2021-11-23 00:00:00 2752 [oz_av] [facility] BP Diastolic 2021-11-20 00:00:00 85 mm[Hg] [facility] Height 2021-11-20 00:00:00 66 [in_i] [facility] BMI (Body Mass 2021-11-20 00:00:00 27.9 kg/m2 [facility]) BP Systolic 2021-11-20 00:00:00 149 mm[Hg] [facility] Body Weight 2021-11-20 00:00:00 2768 [oz_av] Jimmy M ed[facility] BP Diastolic 2021-11-08 00:00:00 95 mm[Hg] [facility] Height 2021-11-08 00:00:00 66 [in_i] [facility] BMI (Body Mass 2021-11-08 00:00:00 27.8 kg/m2 [facility]) BP Systolic 2021-11-08 00:00:00 165 mm[Hg] [facility] Body Weight 2021-11-08 00:00:00 2752 [oz_av] Jimmy M edical BP Diastolic 2021-11-02 00:00:00 75 mm[Hg] [facility] Height 2021-11-02 00:00:00 66 [in_i] [facility] BMI (Body Mass 2021-11-02 00:00:00 27.4 kg/m2 [facility]) BP Systolic 2021-11-02 00:00:00 138 mm[Hg] [facility] Body Weight 2021-11-02 00:00:00 2720 [oz_av] [facility] BP Diastolic 2021-10-19 00:00:00 77 mm[Hg] [facility] Height 2021-10-19 00:00:00 66 [in_i] [facility] BMI (Body Mass 2021-10-19 00:00:00 28.2 kg/m2 [facility]) BP Systolic 2021-10-19 00:00:00 136 mm[Hg] Jimmy M [facility] Body Weight 2021-10-19 00:00:00 2800 [oz_av] Jimmy M edical BP Diastolic 2021-10-12 00:00:00 74 mm[Hg] Jimmy M ed[facility] Height 2021-10-12 00:00:00 66 [in_i] Jimmy M edical BMI (Body Mass 2021-10-12 00:00:00 28.2 kg/m2 [facility]) BP Systolic 2021-10-12 00:00:00 139 mm[Hg] Jimmy M [facility] Body Weight 2021-10-12 00:00:00 2800 [oz_av] Jimmy M edical BP Diastolic 2021-10-02 00:00:00 75 mm[Hg] Jimmy M ed[facility] Height 2021-10-02 00:00:00 66 [in_i] Jimmy M edical BMI (Body Mass 2021-10-02 00:00:00 29.4 kg/m2 [facility]) BP Systolic 2021-10-02 00:00:00 139 mm[Hg] Jimmy M [facility] Body Weight 2021-10-02 00:00:00 2912 [oz_av] Jimmy M edical BP Diastolic 2021-09-26 00:00:00 89 mm[Hg] Jimmy M edical Height 2021-09-26 00:00:00 66 [in_i] Jimmy M edical BMI (Body Mass 2021-09-26 00:00:00 29.4 kg/m2 [facility]) BP Systolic 2021-09-26 00:00:00 135 mm[Hg] [facility] Body Weight 2021-09-26 00:00:00 2912 [oz_av] Jimmy M edical BP Diastolic 2021-09-13 00:00:00 92 mm[Hg] Jimmy M edical Height 2021-09-13 00:00:00 66 [in_i] Jimmy M edical BMI (Body Mass 2021-09-13 00:00:00 13.2 kg/m2 [facility]) BP Systolic 2021-09-13 00:00:00 153 mm[Hg] Jimmy M [facility] Body Weight 2021-09-13 00:00:00 1304 [oz_av] [facility] BP Diastolic 2021-09-04 00:00:00 78 mm[Hg] [facility] Height 2021-09-04 00:00:00 66 [in_i] [facility] BMI (Body Mass 2021-09-04 00:00:00 28.9 kg/m2 [facility] Medical Index) BP Systolic 2021-09-04 00:00:00 136 mm[Hg] [facility] Body Weight 2021-09-04 00:00:00 2864 [oz_av] Jimmy M edical BP Diastolic 2021-08-22 00:00:00 77 mm[Hg] Jimmy M edical Height 2021-08-22 00:00:00 66 [in_i] Jimmy M edical BMI (Body Mass 2021-08-22 00:00:00 29.5 kg/m2 [facility] Medical Index) BP Systolic 2021-08-22 00:00:00 134 mm[Hg] Jimmy M [facility] Body Weight 2021-08-22 00:00:00 2928 [oz_av] Jimmy M edical BP Diastolic 2021-08-14 00:00:00 66 mm[Hg] Jimmy M edical Height 2021-08-14 00:00:00 66 [in_i] Jimmy M edical BMI (Body Mass 2021-08-14 00:00:00 29.5 kg/m2 [facility] Medical Index) BP Systolic 2021-08-14 00:00:00 136 mm[Hg] [facility] Body Weight 2021-08-14 00:00:00 2928 [oz_av] Jimmy M edical BP Diastolic 2021-08-10 00:00:00 75 mm[Hg] [facility] Height 2021-08-10 00:00:00 66 [in_i] Jimmy M edical BMI (Body Mass 2021-08-10 00:00:00 29.2 kg/m2 [facility] Medical Index) BP Systolic 2021-08-10 00:00:00 131 mm[Hg] Jimmy M edical Body Weight 2021-08-10 00:00:00 2896 [oz_av] [facility] BP Diastolic 2021-07-31 00:00:00 78 mm[Hg] [facility] Height 2021-07-31 00:00:00 66 [in_i] [facility] BMI (Body Mass 2021-07-31 00:00:00 28.6 kg/m2 [facility]) BP Systolic 2021-07-31 00:00:00 137 mm[Hg] [facility] Body Weight 2021-07-31 00:00:00 2832 [oz_av] Jimmy M edical BP Diastolic 2021-07-27 00:00:00 75 mm[Hg] [facility] Height 2021-07-27 00:00:00 66 [in_i] [facility] BMI (Body Mass 2021-07-27 00:00:00 29.7 kg/m2 [facility] Index) BP Systolic 2021-07-27 00:00:00 133 mm[Hg] [facility] Body Weight 2021-07-27 00:00:00 2944 [oz_av] Jimmy M edical BP Diastolic 2021-07-19 00:00:00 88 mm[Hg] [facility] Height 2021-07-19 00:00:00 66 [in_i] [facility] BMI (Body Mass 2021-07-19 00:00:00 29.5 kg/m2 [facility]) BP Systolic 2021-07-19 00:00:00 140 mm[Hg] [facility] Body Weight 2021-07-19 00:00:00 2928 [oz_av] Jimmy M edical BP Diastolic 2021-07-12 00:00:00 80 mm[Hg] [facility] Height 2021-07-12 00:00:00 66 [in_i] [facility] BMI (Body Mass 2021-07-12 00:00:00 29.5 kg/m2 [facility]) BP Systolic 2021-07-12 00:00:00 136 mm[Hg] [facility] Body Weight 2021-07-12 00:00:00 2928 [oz_av] Jmimy gardner Height 2019-02-20 00:00:00 68 [in_i] [facility] Height 2018-11-13 00:00:00 68 [in_i] [facility] Height 2018-10-25 00:00:00 68 [in_i] [facility] Height 2018-09-04 00:00:00 68 [in_i] [facility] Body height 2022-01-22 19:04:00 172.7 cm [facility] Body weight 2022-01-22 19:04:00 78.2 kg [facility] BMI 2022-01-22 19:04:00 26.21 kg/m2 [facility] Oxygen saturation in 2022-01-22 19:04:00 95 /min [facility] Arterial blood by Pulse oximetry Systolic blood 2022-01-22 19:04:00 146 mm[Hg] [facility] Hospital pressure Diastolic blood 2022-01-22 19:04:00 81 mm[Hg] [facility] pressure Heart rate 2022-01-22 19:04:00 85 /min [facility] Body temperature 2022-01-22 19:04:00 36.56 Lazara [facility] Oxygen saturation in 2021-12-18 20:47:00 98 /min [facility] Arterial blood by Pulse oximetry Systolic blood 2021-12-18 20:16:00 152 mm[Hg] Method [facility] Hospital pressure Diastolic blood 2021-12-18 20:16:00 75 mm[Hg] [facility] Heart rate 2021-12-18 20:16:00 82 /min [facility] Respiratory rate 2021-12-18 16:16:11 18 /min [facility] Body temperature 2021-12-18 16:16:11 36.72 [facility] Body weight 2021-12-18 11:11:31 85.14 kg [facility] BMI 2021-12-18 11:11:31 28.54 kg/m2 [facility] Body height 2021-12-13 19:32:00 172.7 cm [facility] Procedures Procedure Date / Time Performing Clinician Source Performed EKG-12 LEAD 2021-12-25 18:40:28 Miguel Ángel Carreon [facility] CONSENT/REFUSAL FOR 2021-12-25 18:09:35 Doctor Unassigned, [facility] DIAGNOSIS AND TREATMENT [facility] TTE COMPLETE, WO 2021-12-18 13:28:00 Olimpia Manley [facility] CONTRAST, W JOSE DAVID Balderrama ([id number]) HEPATITIS B SURFACE 2021-12-17 17:24:00 [facility] ANTIGEN HEPATITIS B SURFACE AB, 2021-12-17 17:24:00 [facility] QUANTITATIVE HEPATITIS B SURFACE 2021-12-17 17:24:00 [facility] ANTIBODY HEMODIALYSIS 2021-12-17 13:44:21 [facility] POC GLUCOSE 2021-12-16 22:03:00 Laeeq, [facility] CT ANGIOGRAM PE CHEST 2021-12-16 21:37:19 Laeeq, [facility] CBC WITH PLATELET AND 2021-12-16 17:59:00 Laeeq, [facility] DIFFERENTIAL VANCOMYCIN LEVEL, RANDOM 2021-12-16 17:59:00 Laeeq, [facility] LACTIC ACID LEVEL 2021-12-16 17:55:00 Laeeq, [facility] PROTHROMBIN TIME WITH INR 2021-12-16 17:55:00 Laeeq, [facility] COMPREHENSIVE METABOLIC 2021-12-16 17:25:00 Laeeq, [facility] PANEL MAGNESIUM LEVEL 2021-12-16 17:25:00 Laeeq, [facility] PHOSPHORUS LEVEL 2021-12-16 17:25:00 Laeeq, [facility] AMMONIA LEVEL 2021-12-16 17:25:00 Laeeq, [facility] ESTIMATED GFR 2021-12-16 17:25:00 Laeeq, [facility] CT HEAD WO CONTRAST 2021-12-16 13:16:29 Laeeq, [facility] EEG AWAKE/ASLEEP LESS 2021-12-16 11:26:21 Laeeq, [facility] THAN 41 MIN ARTERIAL BLOOD GAS 2021-12-16 02:54:00 VelascoErica Amarjit [facility] XR CHEST 1 VW PORTABLE 2021-12-16 01:57:17 Laeeq, [facility] TRANSFUSE RED BLOOD CELLS 2021-12-16 00:57:00 Laeeq, [facility] ARTERIAL BLOOD GAS 2021-12-16 00:51:00 Laeeq, [facility] ARTERIAL BLOOD GAS 2021-12-15 21:42:00 [place] [facility] [place] < 1 HOUR 2021-12-15 20:00:00 [facility] ARTERIAL BLOOD GAS, 2021-12-15 19:30:00 Laeeq, [facility] CORRECTED SODIUM LEVEL, SYRINGE 2021-12-15 19:30:00 Laeeq, [facility] POTASSIUM, SYRINGE 2021-12-15 19:30:00 Laeeq, [facility] HEMOGLOBIN, SYRINGE 2021-12-15 19:30:00 Laeeq, [facility] IONIZED CALCIUM, ARTERIAL 2021-12-15 19:30:00 Laeeq, [facility] GLUCOSE LEVEL, SYRINGE 2021-12-15 19:30:00 Laeeq, [facility] MAGNESIUM LEVEL 2021-12-15 19:30:00 Laeeq, [facility] AEROBIC CULTURE 2021-12-15 19:11:00 [facility] ANAEROBIC CULTURE 2021-12-15 19:11:00 Bunny Go [facility] FUNGUS CULTURE 2021-12-15 19:11:00 [facility] sp[facility] AFB CULTURE 2021-12-15 19:11:00 [facility] GRAM STAIN 2021-12-15 19:11:00 [facility] spital AFB STAIN 2021-12-15 19:11:00 [facility] TRANSFUSE RED BLOOD CELLS 2021-12-15 18:37:00 Woodruff, [facility] Michael ARTERIAL BLOOD GAS, 2021-12-15 17:51:00 Laeeq, [facility] CORRECTED SODIUM LEVEL, SYRINGE 2021-12-15 17:51:00 Laeeq, [facility] POTASSIUM, SYRINGE 2021-12-15 17:51:00 Laeeq, [facility] HEMOGLOBIN, SYRINGE 2021-12-15 17:51:00 Laeeq, [facility] IONIZED CALCIUM, ARTERIAL 2021-12-15 17:51:00 Laeeq, [facility] GLUCOSE LEVEL, SYRINGE 2021-12-15 17:51:00 Laeeq, [facility] MAGNESIUM LEVEL 2021-12-15 17:51:00 Laeeq, [facility] MS AN ELECTIVE 2021-12-15 15:01:00 Meghana [facility] spital SUPRAGLOTTIC AIRWAY Michael Extensive Revision AV 2021-12-15 14:41:00 Bunny Go [facility] Fistula CO- ANTI-SPIKE IGG 2021-12-15 10:57:00 Damion Ambrose [facility] ANTIBODY TITER Jalen CBC WITH PLATELET AND 2021-12-15 10:57:00 Laeeq, [facility] DIFFERENTIAL COMPREHENSIVE METABOLIC 2021-12-15 10:57:00 Laeeq, [facility] PANEL MAGNESIUM LEVEL 2021-12-15 10:57:00 Laeeq, [facility] PHOSPHORUS LEVEL 2021-12-15 10:57:00 Laeeq, [facility] PROTHROMBIN TIME WITH INR 2021-12-15 10:57:00 Laeeq, [facility] ZZCOVID-19 SEROLOGY 2021-12-15 10:57:00 [facility] Jalen ESTIMATED GFR 2021-12-15 10:57:00 Laeeq, [facility] PARTIAL THROMBOPLASTIN 2021-12-15 10:57:00 [facility] ([facility] Jalen ESTIMATED GFR 2021-12-15 10:28:00 [facility] BASIC METABOLIC PANEL 2021-12-14 23:49:00 [facility] ESTIMATED GFR 2021-12-14 23:49:00 [facility] spital PREPARE RBC 2021-12-14 20:13:00 [facility] PROTHROMBIN TIME WITH INR 2021-12-14 20:[facility]:00 [facility] PARTIAL THROMBOPLASTIN 2021-12-14 20:13:00 [facility] TIME (PTT) [facility] J. XR CHEST 1 VW PORTABLE 2021-12-14 19:02:38 [facility] BASIC METABOLIC PANEL 2021-12-14 15:41:00 [facility] ESTIMATED GFR 2021-12-14 15:41:00 [facility] 2021-12-14 14:50:32 [facility] CBC WITH PLATELET AND 2021-12-14 10:48:00 Medardo [facility] DIFFERENTIAL ESTIMATED GFR 2021-12-14 09:39:00 Medardo [facility] LACTIC ACID LEVEL, SEPSIS 2021-12-14 05:01:00 Alma Whitman [facility] - NOW AND REPEAT 2X EVERY 3 HOURS POC GLUCOSE 2021-12-14 03:32:00 Medardo [facility] POC GLUCOSE 2021-12-14 02:40:00 Medardo [facility] ECG 12-LEAD 2021-12-14 02:14:56 Medardo [facility] POC GLUCOSE 2021-12-14 02:00:00 Medardo [facility] COVID-19 QUALITATIVE 2021-12-14 01:49:00 Pratibha Hummel [facility] RT-PCR LACTIC ACID LEVEL, SEPSIS 2021-12-14 01:49:00 [facility] RE[facility]AT 2X EVERY 3 HOURS LACTIC ACID LEVEL, SEPSIS 2021-12-14 00:13:00 Alma Whitman [facility] - NOW AND REPEAT 2X EVERY 3 HOURS BASIC METABOLIC PANEL 2021-12-14 00:13:00 Pratibha Hummel [facility] CBC WITH PLATELET AND 2021-12-14 00:13:00 Pratibha Hummel [facility] DIFFERENTIAL HEPATIC FUNCTION PANEL 2021-12-14 00:13:00 Pratibha Hummel [facility] ESTIMATED GFR 2021-12-14 00:13:00 [facility], AEROBIC & 2021-12-14 00:12:00 Estephanie [facility] ANAEROBIC MS CRITICAL CARE 2021-12-13 22:29:38 Pratibha Hummel Ester [facility] ILL/INJURED PATIENT INIT 30-74 MIN ECG ED PRELIMINARY 2021-12-13 22:29:38 Pratibha Hummel Ester [facility] INTERPRETATION Open Reduction of [facility] Medical Fracture of Multiple Ribs with Internal Fixation Insertion of Stent into [facility] Subclavian Artery Insertion of Stent into [facility] edical Aorta Splenectomy [facility] Plan of Care Planned Activity Planned Date Details Comments Source Future Scheduled 2022-04-12 Pneumococcal Vaccine: [facility] Test 12:01:17 Pediatrics (0 to 5 Years) and At-Risk Patients (6 to 64 Years) (1 - PCV) [code = Pneumococcal Vaccine: Pediatrics (0 to 5 Years) and At-Risk Patients (6 to 64 Years) (1 - PCV)] Future Scheduled 2022-04-12 Hepatitis C screening [facility] Test 12:01:17 (procedure) [code = [id number]] Future Scheduled 2022-04-12 COLONOSCOPY SCREENING [facility] Test 12:01:17 [code = COLONOSCOPY SCREENING] Future Scheduled 2022-04-12 COVID-19 VACCINE (3 - [facility] Test 12:01:17 Booster for Pfizer series) [code = COVID-19 VACCINE (3 - Booster for Pfizer series)] Future Scheduled 2022-04-12 INFLUENZA VACCINE [facility] Test 12:01:17 [code = INFLUENZA VACCINE] Future Scheduled 2022-04-12 Pneumococcal Vaccine: [facility] Test 12:01:17 Pediatrics (0 to 5 Years) and At-Risk Patients (6 to 64 Years) (1 - PCV) [code = Pneumococcal Vaccine: Pediatrics (0 to 5 Years) and At-Risk Patients (6 to 64 Years) (1 - PCV)] Future Scheduled 2022-04-12 Hepatitis C screening [facility] Test 12:01:17 (procedure) [code = [id number]] Future Scheduled 2022-04-12 COLONOSCOPY SCREENING [facility] Test 12:01:17 [code = COLONOSCOPY SCREENING] Future Scheduled 2022-04-12 COVID-19 VACCINE (3 - [facility] Test 12:01:17 Booster for Pfizer series) [code = COVID-19 VACCINE (3 - Booster for Pfizer series)] Future Scheduled 2022-04-12 INFLUENZA VACCINE [facility] Test 12:01:17 [code = INFLUENZA VACCINE] Future Scheduled 2021-12-30 HEPATITIS B VACCINES Met [facility] Test 03:33:27 (1 of 3 - 3-dose series) [code = HEPATITIS B VACCINES (1 of 3 - 3-dose series)] Future Scheduled 2021-12-30 Pneumococcal Vaccine: [facility] Test 03:33:27 Pediatrics (0 to 5 Years) and At-Risk Patients (6 to 64 Years) (1 - PCV) [code = Pneumococcal Vaccine: Pediatrics (0 to 5 Years) and At-Risk Patients (6 to 64 Years) (1 - PCV)] Future Scheduled 2021-12-30 Hepatitis C screening [facility] Test 03:33:27 (procedure) [code = [id number]] Future Scheduled 2021-12-30 COLONOSCOPY SCREENING [facility] Test 03:33:27 [code = COLONOSCOPY SCREENING] Future Scheduled 2021-12-30 COVID-19 VACCINE (3 - [facility] Test 03:33:27 Booster for Pfizer series) [code = COVID-19 VACCINE (3 - Booster for Pfizer series)] Future Scheduled 2021-12-30 INFLUENZA VACCINE [facility] Test 03:33:27 [code = INFLUENZA VACCINE] Future Scheduled 2021-11-29 HEPATITIS B VACCINES Met [facility] Test 05:50:55 (1 of 3 - 3-dose series) [code = HEPATITIS B VACCINES (1 of 3 - 3-dose series)] Future Scheduled 2021-11-29 COVID-19 [facility]ACCINE (#[facility] Test 05:50:55 [code = COVID-19 VACCINE (#1)] Future Scheduled 2021-11-29 Pneumococcal Vaccine: [facility] Test 05:50:55 Pediatrics (0 to 5 Years) and At-Risk Patients (6 to 64 Years) (1 - PCV) [code = Pneumococcal Vaccine: Pediatrics (0 to 5 Years) and At-Risk Patients (6 to 64 Years) (1 - PCV)] Future Scheduled 2021-11-29 Hepatitis C screening [facility] Test 05:50:55 (procedure) [code = [id number]] Future Scheduled 2021-11-29 COLONOSCOPY SCREENING [facility] Test 05:50:55 [code = COLONOSCOPY SCREENING] Future Scheduled 2021-11-29 INFLUENZA VACCINE [facility] Test 05:50:55 [code = INFLUENZA VACCINE] Future Scheduled 2021-11-29 HEPATITIS B VACCINES Met [facility] Test 05:50:55 (1 of 3 - 3-dose series) [code = HEPATITIS B VACCINES (1 of 3 - 3-dose series)] Future Scheduled 2021-11-29 COVID-19 VACCINE (#1) [facility] Test 05:50:55 [code = COVID-19 VACCINE (#1)] Future Scheduled 2021-11-29 Pneumococcal Vaccine: [facility] Test 05:50:55 Pediatrics (0 to 5 Years) and At-Risk Patients (6 to 64 Years) (1 - PCV) [code = Pneumococcal Vaccine: Pediatrics (0 to 5 Years) and At-Risk Patients (6 to 64 Years) (1 - PCV)] Future Scheduled 2021-11-29 Hepatitis C screening [facility] Test 05:50:55 (procedure) [code = [id number]] Future Scheduled 2021-11-29 COLONOSCOPY SCREENING [facility] Test 05:50:55 [code = COLONOSCOPY SCREENING] Future Scheduled 2021-11-29 INFLUENZA VACCINE [facility] Test 05:50:55 [code = INFLUENZA VACCINE] Future Scheduled 2021-11-29 HEPATITIS B VACCINES Met [facility] Test 05:50:55 (1 of 3 - 3-dose series) [code = HEPATITIS B VACCINES (1 of 3 - 3-dose series)] Future Scheduled 2021-11-29 COVID-19 VACCINE (#1) [facility] Test 05:50:55 [code = COVID-19 VACCINE (#1)] Future Scheduled 2021-11-29 Pneumococcal Vaccine: [facility] Test 05:50:55 Pediatrics (0 to 5 Years) and At-Risk Patients (6 to 64 Years) (1 - PCV) [code = Pneumococcal Vaccine: Pediatrics (0 to 5 Years) and At-Risk Patients (6 to 64 Years) (1 - PCV)] Future Scheduled 2021-11-29 Hepatitis C screening [facility] Test 05:50:55 (procedure) [code = [id number]] Future Scheduled 2021-11-29 COLONOSCOPY SCREENING [facility] Test 05:50:55 [code = COLONOSCOPY SCREENING] Future Scheduled 2021-11-29 INFLUENZA VACCINE [facility] Test 05:50:55 [code = INFLUENZA VACCINE] Future Scheduled 2021-11-29 HEPATITIS B VACCINES Met [facility] Test 05:50:55 (1 of 3 - 3-dose series) [code = HEPATITIS B VACCINES (1 of 3 - 3-dose series)] Future Scheduled 2021-11-29 COVID-19 VACCINE (#1) [facility] Test 05:50:55 [code = COVID-19 VACCINE (#1)] Future Scheduled 2021-11-29 Pneumococcal Vaccine: [facility] Test 05:50:55 Pediatrics (0 to 5 Years) and At-Risk Patients (6 to 64 Years) (1 - PCV) [code = Pneumococcal Vaccine: Pediatrics (0 to 5 Years) and At-Risk Patients (6 to 64 Years) (1 - PCV)] Future Scheduled 2021-11-[address] [facility] Test 05:50:55 (procedure) [code = [id number]] Future Scheduled 2021-11-[address] [facility] Test 05:50:55 [code = [...] Met [facility] Test 04:27:12 (1 of 3 - 3-dose series) [code = HEPATITIS B VACCINES (1 of 3 - 3-dose series)] Future Scheduled 2021-11-16 COVID-19 VACCINE (#1) [facility] Test 04:27:12 [code = COVID-19 VACCINE (#1)] Future Scheduled 2021-11-16 Pneumococcal Vaccine: [facility] Test 04:27:12 Pediatrics (0 to 5 Years) and At-Risk Patients (6 to 64 Years) (1 - PCV) [code = Pneumococcal Vaccine: Pediatrics (0 to 5 Years) and At-Risk Patients (6 to 64 Years) (1 - PCV)] Future Scheduled 2021-11-16 Hepatitis C screening [facility] Test 04:27:12 (procedure) [code = [id number]] Future Scheduled 2021-11-16 INFLUENZA VACCINE [facility] Test 04:27:12 [code = INFLUENZA VACCINE] Diagnostic Test 2021-07-19 drug screen, 14 drugs [place] [facility] Pending 00:00:00 (detectimed), urine [code = drug screen, 14 drugs (detectimed), urine] Future Scheduled 2021-03-[address] [...] DEPRESSION SCREENING (12+)] Diagnostic Test 2019-02-21 17-hydroxyprogesterone [facility] Pending 00:00:00 , quantitative, serum Group [...] [facility] s Test 00:00:00 (procedure) [code = [facility] [id number]] Future Scheduled [address] [facility] 00:[facility]:00 (procedure) [code = [facility] 54432511] Future Scheduled [address] [facility] 00:00:00 (procedure) [code = [facility] 17444332] Future Scheduled [address] [facility] 00:00:00 (procedure) [code = [facility] 46003807] Future Scheduled [address] [facility] 00:00:00 (procedure) [code = [facility] 46531172] Future Scheduled 1994 DTAP/TDAP/TD VACCINES [facility] [...] [facility] colon (procedure) [code = 851477558] Future Scheduled [address] [facility] colon (procedure) [code = 565050067] Future Scheduled [address] [facility] colon (procedure) [code = 800037390] Future Scheduled [address] [facility] colon (procedure) [code = 303819093] Future Scheduled [address] [facility] 00:[facility] colon (procedure) [code = 958670559] Future Scheduled 1975 [facility]oid[facility] Future Scheduled [address] [facility] colon (procedure) [code = 180056149] Future Scheduled [address] [facility] 00:[facility]:00 [facility] colon (procedure) [code = 052894810] Future Scheduled [address] [facility] 00:[facility]:00 (combo) [code = CT Medical C enter Colonography (combo)] Future Scheduled [address] [facility] colon (procedure) [code = 736276150] Future Scheduled [address] [facility] 00:[facility] colon (procedure) [code = 309586300] Future Scheduled [address] [facility] 00:[facility]:00 [facility] colon (procedure) [code = 813938698] Future Scheduled [address] [facility] 00:[facility]:00 [facility] colon (procedure) [code = 514796025] Future Scheduled [address] [facility] 00:00:00 [facility] colon (procedure) [code = 538194185] Future Scheduled 1975 [facility]oidoscopy [facility] Cent[facility] r Future Scheduled 1975 S[facility]oidoscopy [facility] Cent[facility] Future Scheduled [address] [facility] 00:00:00 (combo) [code = CT Medical C enter Colonography (combo)] Future Scheduled [address] [facility] colon (procedure) [code = 115003903] Future Scheduled [address] [facility] 00:00:00 malignant ne[facility] colon (procedure) [code = 429365758] Future Scheduled [address] [facility] 00:00:00 malignant ne[facility] of [facility] colon (procedure) [code = 030837943] Future Scheduled [address] [facility] 00:00:00 [facility] ne[facility] of [facility] colon (procedure) [code = 784090814] Future Scheduled 1975 Sigmoidoscopy [facility] Cent[facility] r Future Scheduled [address] [facility] 00:00:00 (combo) [code = CT Medical C enter Colonography (combo)] Future Scheduled [address] [facility] 00:[facility]:00 [facility] ne[facility] colon (procedure) [code = 018637692] Future Scheduled [address] [facility] 00:00:00 malignant ne[facility] of [facility] colon (procedure) [code = 878141204] Future Scheduled [address] [facility] 00:00:00 malignant ne[facility] of [facility] colon (procedure) [code = 141273300] Future Scheduled [address] [facility] 00:00:00 malignant neoplasm of [facility] Center colon (procedure) [code = 278409469] Future Scheduled 1975 Sigmoidoscopy [facility]] Medical Cente r Encounters Start End Encounter Admission Attending Care Care Encounter Source Date/Time Date/Time Type Type Clinicians Facility Department ID 2022-02-15 Inpatient [facility] [id number] [facility] 10:46:20 [address] [place] 2021-11-19 Outpatient [facility] [id number] [place] 10:07:20 [id number] [facility] 2021-10-16 Outpatient [facility] [id number] [place] 14:38:07 ENRIQUE Olivera0719 [facility] 2021-09-25 Outpatient [facility] [id number] [place] 09:31:27 ENRIQUE Olivera0628 [facility] 2021-09-17 Outpatient [facility] [id number] [place] 10:08:53 ENRIQUE Olivera0620 [facility] 2021-09-04 Outpatient [facility] [id number] [place] 12:19:20 ENRIQUE Olivera0607 [facility] 2015-12-08 Inpatient C [facility] [id number] [facility]. 18:48:00 [facility] 2022-04-29 2022-04-29 Outpatient [facility] PRIV PRIV [id number] [facility] 00:00:00 00:00:00 d_J [id number] Medica l 2022-04-16 2022-04-16 [facility] 117 [facility] 00:00:00 00:00:00 PIA [facility]ron[facility] - Med ical [address] [address] , Ph. 2022-04-10 2022-04-10 Outpatient [facility]Tod PRIV PRIV 205 [id number] [facility] 00:00:00 00:00:00 d_J [id number] Medica l 2022-04-10 2022-04-10 Outpatient [facility] PRIV PRIV 205 [id number] [facility] 00:00:00 00:00:00 d_J [id number] Medica l 2022-04-10 2022-04-10 Outpatient [facility] PRIV PRIV 205 [id number] [facility] 00:00:00 00:00:00 d_J [id number] Medica l 2022-04-02 2022-04-02 [facility] 103 [facility] 00:00:00 00:00:00 PIA [facility] - Med ical [address] [address] , Ph. 2022-03-29 2022-03-29 Outpatient [facility] PRIV PRIV 205 [id number] [facility] 00:00:00 00:00:00 d_J [id number] Medica l 2022-03-21 2022-03-[address] [facility] [id number] Univers 00:00:00 00:00:00 SENDIL [facility] 2022-03-14 2022-03-[address] [facility] [id number] [facility] 2022-03-12 [facility] [id number] [facility] 00:00:00 00:00:00 PIA [facility]ron: Health - Med ical [address] [address] , Ph. 2022-03-05 2022-03-05 Robert Yunior [facility] Priv[facility] 202 [facility] 00:00:00 00:00:00 Fabio [facility] - Med ical MD: [address] [address] , Ph. 2022-02-26 2022-02-26 [facility] [id number] Univers 10:40:00 10:40:00 [facility] 2022-02-20 2022-02-20 [facility] [id number] Univers 13:00:00 13:00:00 [facility] 2022-02-19 2022-02-19 Mara [facility] 122 [facility] 00:00:00 00:00:00 PIA Padron: Health - Med ical [address] [address] , Ph. 2022-02-12 2022-02-12 [facility] [id number] Univers 13:00:00 13:00:00 [facility] 2022-02-05 2022-02-05 Mara [facility] 108 [facility] 00:00:00 00:00:00 PIA [facility]ron: Health - Med ical [address] [address] , Ph. 2022-01-22 2022-01-22 Office Conrad 1.2.840.1 [id number] Methodi 13:45:00 15:23:28 Visit Aubree 13297.1.[address] [place] 3.430.2.7 Hosp carly .3.821197 l .8 2022-01-22 2022-01-22 Office Martines, 1.2.840.1 [id number] Methodi 13:45:00 15:23:28 Visit Aubree 97131.1.[address] [place] 3.430.2.7 Hosp carly .3.263316 l .8 2022-01-22 2022-01-22 Travel 1.2.840.1 1.2.473.740 6934 [id number] Methodi 00:00:00 00:00:[address] 3.430.2.7 0.2.7.3.698 Ho spita .3.751537 084.8 l .8 2022-01-22 2022-01-22 Travel 1.2.840.1 1.2.235.331 0897 125606 Methodi 00:00:00 00:00:[address] 3.430.2.7 0.2.7.3.698 Ho spita .3.930360 084.8 l .8 2022-01-18 2022-01-18 Mara [facility]IR [facility] 00:00:00 00:00:00 PIA [facility] - Med ica [address] [address] , Ph. 2022-01-11 2022-01-11 Telephone Bunny Go 1.2.840.1 [id number] Methodi 00:00:00 00:00:[address] 3.430.2.7 Hospit a .3.594265 l .8 2022-01-11 2022-01-11 Telephone Bunny Go 1.2.840.1 [id number] 711 [id number] Methodi 00:00:00 00:00:[address] 3.430.2.7 Hospit a .3.553028 l .8 2022-01-04 2022-01-04 [facility]a [facility] 007 [facility] 00:00:00 00:00:00 PIA [facility]ron: [facility] - Med ical [address] [place] [address] , Ph. 2021-12-26 2021-12-26 [facility] 1.2.838.862 [id number] Univers 00:00:00 00:00:00 Sendnahomi [facility].7[facility]2.686 Lina RAMIREZ [phone] [address] 2021-12-25 2021-12-[address] [facility] [id number] Univers 13:00:00 14:05:49 SENDIL [facility] 2021-12-25 2021-12-25 [facility] 1.2.840.114 [id number] Univers 13:00:00 14:05:49 Visit Miguel Ángel YANEZ 350.1.13.10 [facility] 4.2.7.2.686 Lina RAMIREZ [phone] [address] 2021-12-25 2021-12-25 Outpatient [facility]Tod PRIV PRIV 205 [id number] [facility] 00:00:00 00:00:00 d_J [id number] Medica l 2021-12-25 2021-12-25 Outpatient [facility]Tod PRIV PRIV 205 [id number] [facility] 00:00:00 00:00:00 d_J [id number] Medica l 2021-12-25 2021-12-25 Outpatient [facility]Tod PRIV PRIV 205 [id number] [facility] 00:00:00 00:00:00 d_J [id number] Medica l 2021-12-25 2021-12-25 Outpatient [facility]Tod PRIV PRIV 205 [id number] [facility] 00:00:00 00:00:00 d_J [id number] Medica l 2021-12-25 2021-12-25 Outpatient [facility]Tod PRIV PRIV 205 [id number] [facility] 00:00:00 00:00:00 d_J [id number] Medica l 2021-12-25 2021-12-25 Orders Doctor RINA 1.2.840.114 [id number] Univers 00:00:00 00:00:00 Only Unassigned, JOAN 350.1.13.10 ity of [place] [facility] 4.2.7.2.686 Darian as [phone] [place] [address] [address] 2021-12-25 2021-12-25 [facility] 927 [facility] 00:00:00 00:00:00 PIA [facility]: [facility] - Med ical [address] [address] , Ph. 2021-12-20 2021-12-20 Telephone Phong 1.2.840.1 [id number] Methodi 00:00:00 00:00:[address] 3.430.2.7 Hospit a .3.322456 l .8 2021-12-20 2021-12-20 Telephone Phong 1.2.840.1 [id number] Methodi 00:00:00 00:00:[address] 3.430.2.7 Hospit a .3.397782 l .8 2021-12-13 2021-12-18 [facility] 1.2.840.1 1 [id number] Methodi 16:41:00 20:55:00 Encounter Alma Whitman 27271.1.[address] Laeeq, Rakel Mcguire 3.430.2.7 Hospita Nakul Krueger .3.977330 l .8 2021-12-13 2021-12-18 Hospital Jorje Connell 1.2.840.1 1 [id number] Methodi 16:41:00 20:55:00 Encounter Alma Whitman 42412.1.[address] Rakel Wan 3.430.2.7 Hospita Nakul Krueger .3.597888 l .8 2021-12-15 2021-12-15 Anesthesia Virgilio Purvis 1.2.840.1 [id number] Methodi 09:41:00 15:01:00 Event Dallas Kowalskiew 00426.1.[address] 3.430.2.7 Hospit a .3.619726 l .8 2021-12-15 2021-12-15 Anesthesia Virgilio Purvis 1.2.840.1 [id number] Methodi 09:41:00 15:01:00 Event [place] Kowalski 36343.1.[address] 3.430.2.7 Hospit a .3.622761 l .8 2021-12-15 2021-12-15 Surgery Abbi Bunny 1.2.840.1 [id number] 32305 Methodi 09:15:00 11:25:[address] 3.430.2.7 Hospit a .3.792742 l .8 2021-12-15 2021-12-15 Surgery Abbi Bunny 1.2.840.1 [id number] 33293 Methodi 09:15:00 11:25:[address] 3.430.2.7 Hospit a .3.011662 l .8 2021-12-13 2021-12-13 Travel 1.2.840.1 1.2.051.151 3271 375890 Methodi 00:00:00 00:00:[address] 3.430.2.7 0.2.7.3.698 Ho spita .3.485224 084.8 l .8 2021-12-13 2021-12-13 Travel 1.2.840.1 1.2.908.826 4277 [id number] Method 00:00:00 00:00:[address] 3.430.2.7 0.2.7.3.698 Ho spita .3.069525 084.8 l .8 2021-12-12 2021-12-12 Outpatient [facility] PRIV PRIV 205 [id number] [facility] 00:00:00 00:00:00 d_J [id number] Medica l 2021-12-11 2021-12-11 Outpatient Vito, PRIV PRIV [id number] 8-3 00:00:00 00:00:00 Mara 7bc-11ed-b [id number] [id number] 2021-12-11 2021-12-11 Mara [facility] [id number] [facility] 00:00:00 00:00:00 PIA Padron: Health - Med ical [address] [address] , Ph. 2021-12-08 2021-12-08 Outpatient [facility]Tod PRIV PRIV 205 [id number] [facility] 00:00:00 00:00:00 d_J [id number] Medica l 2021-11-24 2021-11-24 Outpatient [facility]Tod PRIV PRIV 205 [id number] [facility] 00:00:00 00:00:00 d_J [id number] Medica l 2021-11-23 2021-11-23 Outpatient Vito, PRIV PRIV [id number] 0-2 00:00:00 00:00:00 Mara i82-42rd-9 [id number] 2021-11-23 2021-11-23 Mara [facility] [id number] [facility] 00:00:00 00:00:00 PIA [facility]: Health - Med ical [address] [address] , Ph. 2021-11-20 2021-11-20 Outpatient [facility]_Tod PRIV PRIV 205 [id number] [facility] 00:00:00 00:00:00 d_J [id number] Medica l 2021-11-20 2021-11-20 Outpatient Vito [facility] [id number] a-2 00:00:00 00:00:00 Mara [id number]-22rn-s [id number] [id number] 2021-11-20 2021-11-20 Mara [facility] [id number] [facility] 00:00:00 00:00:00 PIA [facility]: Health - Med ical [address] [address] , Ph. 2021-11-16 2021-11-16 Outpatient [facility]Tod PRIV PRIV 205 [id number] [facility] 00:00:00 00:00:00 d_J [id number] Medica l 2021-11-08 2021-11-08 Outpatient [facility]Tod PRIV PRIV 205 [id number] [facility] 00:00:00 00:00:00 d_J [id number] Medica l 2021-11-08 2021-11-08 Robert Mojica [facility] 202 [id number] [facility] 00:00:00 00:00:00 Fabio [facility] - Med ical MD: [address] [address] , Ph. 2021-11-08 2021-11-08 Outpatient Fabio [facility] [id number] 00:00:00 00:00:00 Robert Mojica [id number]-[id number] 2021-11-02 2021-11-02 Outpatient [facility]Tod PRIV PRIV 205 [id number] [facility] 00:00:00 00:00:00 d_J [id number] Medica l 2021-11-02 [facility] [id number] [facility] 00:00:00 00:00:00 PIA [facility]ron: Health - Med ical [address] [address] , Ph. 2021-11-02 2021-11-02 Outpatient Vito, PRIV PRIV [id number] e-1 00:00:00 00:00:00 Mara ce7-11ed-b [id number] [id number] 2021-10-28 2021-10-28 Outpatient [facility]Tod PRIV PRIV 205 [id number] [facility] 00:00:00 00:00:00 d_J [id number] Medica l 2021-10-20 2021-10-20 Outpatient [facility]Tod PRIV PRIV 205 [id number] [facility] 10:42:00 10:42:00 d_J [id number] Medica l 2021-10-19 2021-10-19 Outpatient [facility]Tod PRIV PRIV 205 [id number] [facility] 07:48:00 07:48:00 d_J [id number] Medica l 2021-10-19 2021-10-19 Mara [facility] [id number] [facility] 00:00:00 00:00:00 PIA [facility]: Health - Med ical [address] [address] , Ph. 2021-10-19 2021-10-19 Outpatient Vito PRIV PRIV [id number] e-1 00:00:00 00:00:00 Mara Allene-11ed-a [id number] [id number] 2021-10-12 2021-10-12 Outpatient [facility]Tod PRIV PRIV 205 [id number] [facility] 03:53:00 03:53:00 d_J [id number] Medica l 2021-10-12 2021-10-12 [facility] [id number] [facility] 00:00:00 00:00:00 PIA Padron: Health - Med ical [address] [address] , Ph. 2021-10-12 2021-10-12 Outpatient Vito, PRIV PRIV [id number] 2-0 00:00:00 00:00:00 Mara af6-11ed-9 [id number] 0t721p 2021-10-09 2021-10-09 Outpatient AMBREEN_JUAN [facility] 767 [place] 11:56:00 11:56:00 [facility]12 [facility] 2021-10-05 2021-10-05 Outpatient [facility]Tod PRIV PRIV 205 [id number] [facility] 11:01:00 11:01:00 d_J [id number] Medica l 2021-10-04 2021-10-04 Outpatient [facility]Tod PRIV PRIV 205 [id number] [facility] 09:10:00 09:10:00 d_J [id number] Medica l 2021-10-03 2021-10-03 Outpatient [facility]Tod PRIV PRIV 205 [id number] [facility] 02:45:00 02:45:00 d_J [id number] Medica l 2021-10-02 2021-10-02 Outpatient [facility]Tod PRIV PRIV 205 [id number] [facility] 05:08:00 05:08:00 d_J [id number] Medica l 2021-10-02 2021-10-02 Mara [facility] [id number] [facility] 00:00:00 00:00:00 PIA [facility]ron: Health - Med ical [address] [address] , Ph. 2021-10-02 2021-10-02 Outpatient Vito, PRIV PRIV [id number] c-f 00:00:00 00:00:00 Maar l07-75oj-e [id number] [id number] 2021-09-26 2021-09-26 Outpatient [facility]Tod PRIV PRIV 205 [id number] [facility] 09:13:00 09:13:00 d_J [id number] Medica l 2021-09-26 2021-09-26 Mara [facility] [id number] [facility] 00:00:00 00:00:00 PIA [facility]ron: Health - Med ical [address] [address] , Ph. 2021-09-26 2021-09-26 Outpatient Vito [facility] [id number] 2-f 00:00:00 00:00:00 Mara dec-11ec-8 [id number] 21b3b7 2021-09-25 2021-09-25 Office JayADRI [facility] 1.2.840.114 [id number] [place] 11:15:00 12:43:[address] [facility] 350.1.13.58 Benny RAMSEY 1 9.2.7.2.686 [id number] 2 2021-09-21 2021-09-21 Outpatient [facility]Tod PRIV PRIV 205 [id number] [facility] 04:44:00 04:44:00 d_J [id number] Medica l 2021-09-17 2021-09-17 Outpatient [facility]Tod PRIV PRIV 205 [id number] [facility] 11:11:00 11:11:00 d_J [id number] Medica l 2021-09-13 2021-09-13 Outpatient [facility]Tod PRIV PRIV 205 [id number] [facility] 10:39:00 10:39:00 d_J [id number] Medica l 2021-09-13 2021-09-13 Robert Mojica [facility] 00:00:00 00:00:00 Fabio [facility] - Med ical MD: [address] [place] [address] , Ph. 2021-09-13 2021-09-13 Outpatient Fabio [facility] [id number]-f 00:00:00 00:00:00 Robert Mojica 3ee-11ec-8 [id number] 2021-09-10 2021-09-10 Outpatient [facility]Tod PRIV PRIV 205 [id number] [facility] 03:35:00 03:35:00 d_J [id number] Medica l 2021-09-04 2021-09-04 Outpatient [facility]Tod PRIV PRIV 205 [id number] [facility] 07:32:00 07:32:00 d_J [id number] Medica l 2021-09-04 2021-09-04 Outpatient Vito PRIV PRIV [id number] 2-e 00:00:00 00:00:00 Mara [id number]-[id number] [id number] 2021-09-04 2021-09-04 Mara [facility] [id number] [facility] 00:00:00 00:00:00 PIA [facility]ron: Health - Med ical [address] [address] , Ph. 2021-08-31 2021-08-31 Outpatient [facility]Tod PRIV PRIV 205 [id number] [facility] 02:07:00 02:07:00 d_J [id number] Medica l 2021-08-23 2021-08-23 Outpatient [facility]Tod PRIV PRIV 205 [id number] [facility] 11:05:00 11:05:00 d_J [id number] Medica l 2021-08-22 2021-08-22 Outpatient [facility]Tod PRIV PRIV 205 [id number] [facility] 07:00:00 07:00:00 d_J [id number] Medica l 2021-08-22 2021-08-22 Outpatient Vito PRIV PRIV [id number] 8-[id number] 00:00:00 00:00:00 Mara [id number]-p [id number] 2021-08-22 2021-08-22 Mara [facility] [id number] [facility] 00:00:00 00:00:00 PIA [facility]ron: Health - Med ical [address] [address] , Ph. 2021-08-19 2021-08-19 Outpatient [facility]Tod PRIV PRIV 205 [id number] [facility] 10:45:00 10:45:00 d_J [id number] Medica l 2021-08-14 2021-08-14 Outpatient [facility]Tod PRIV PRIV 205 [id number] [facility] 03:16:00 03:16:00 d_J [id number] Medica l 2021-08-14 2021-08-14 Outpatient Vito PRIV PRIV [id number] 4-d 00:00:00 00:00:00 Mara wrapper caser-11ec-8 [id number] 2021-08-14 2021-08-14 Mara [facility] [id number] [facility] 00:00:00 00:00:00 PIA Padron: Health - Med ical [address] [address] , Ph. 2021-08-10 2021-08-10 Outpatient [facility]Tod PRIV PRIV 205 [id number] [facility] 01:10:00 01:10:00 d_J [id number] Medica l 2021-08-10 2021-08-10 Outpatient Vito PRIV PRIV [id number] e-d 00:00:00 00:00:00 Mara k8s-34mj-u [id number] 2021-08-10 2021-08-10 Mara [facility] [id number] [facility] 00:00:00 00:00:00 PIA Padron: Health - Med ical [address] [address] , Ph. 2021-08-08 2021-08-08 Outpatient [facility]Tod PRIV PRIV 205 [id number] [facility] 10:53:00 10:53:00 d_J [id number] Medica l 2021-08-04 2021-08-04 Outpatient [facility]Tod PRIV PRIV 205 [id number] [facility] 10:45:00 10:45:00 d_J [id number] Medica l 2021-07-31 2021-07-31 Outpatient [facility]Tod PRIV PRIV 205 [id number] [facility] 07:56:00 07:56:00 d_J [id number] Medica l 2021-07-31 2021-07-31 Outpatient Vito, PRIV PRIV [id number] 4-d 00:00:00 00:00:00 Mara 159-11ec-9 [id number] 2021-07-31 2021-07-31 Mara [facility] [id number] [facility] 00:00:00 00:00:00 PIA Padron: Health - Med ical [address] [address] , Ph. 2021-07-27 2021-07-27 Outpatient [facility]Tod PRIV PRIV 205 [id number] [facility] 08:30:00 08:30:00 d_J [id number] Medica l 2021-07-27 2021-07-27 Outpatient Vito PRIV PRIV [id number] 00:00:00 00:00:00 Mara [id number] 2021-07-27 [facility] [id number] [facility]:00 00:00:00 PIA Padron: Health - Med ical [address] [address] , Ph. 2021-07-19 2021-07-19 Outpatient [facility]_Tod PRIV PRIV [id number] [facility] 08:26:00 08:26:00 d_J [id number] Medica l 2021-07-19 2021-07-19 Outpatient Fabio, PRIV PRIV [id number] 00:00:00 00:00:00 Robert Mojica [id number] 2021-07-19 2021-07-19 Robert Mojica [facility] 00:00:00 00:00:00 Fabio [facility] - Med icaromario MD: [address] , [place] [address] , Ph. 2021-07-19 2021-07-19 Outpatient Fabio, PRIV PRIV [id number] 00:00:00 00:00:00 Robert Mojica [id number] 2021-07-13 2021-07-13 Outpatient [facility]_Tod PRIV PRIV [id number] [facility] 02:12:00 02:12:00 d_J [id number] Medica l 2021-07-12 2021-07-12 Outpatient [facility]_Tod PRIV PRIV [id number] [facility] 05:07:00 05:07:00 d_J [id number] Medica l 2021-07-12 2021-07-[address] [place] PRIV PRIV [id number] 00:00:00 00:00:00 June [id number] 2021-07-12 2021-07-12[facility]:00 00:00:00 [facility] - Medic al LABEL REWINDER: [address] , [place] [address] , Ph. 2021-07-12 2021-07-[address], PRIV PRIV [id number] 00:00:00 00:00:00 June [id number] 2021-07-11 2021-07-11 Outpatient [facility]Tod PRIV PRIV [id number] [facility] 10:53:00 10:53:00 d_J [id number] Medica l 2021-07-06 2021-07-06 Outpatient [facility]_Spa PRIV PRIV [id number] [facility] 05:28:00 05:28:00 [place] [id number] Medica l 2019-02-20 2019-02-20 [facility] [place] - [id number] [place] 00:00:00 00:00:00 Christo Collins MD: [address] [facility] [address], [place] [address] , Ph. 2018-11-13 2018-11-13 [facility] [place] - [id number] [place] 00:00:00 00:00:00 Christo Collins MD: [address] [facility] [address], [place] [address] , Ph. 2018-10-25 2018-10-25 [facility] [place] - [id number] [place] 00:00:00 00:00:00 Christo Collins MD: [address] [facility] [address], [place] [address] , Ph. 2018-09-04 2018-09-04 [facility] [place] - [id number] [place] 00:00:00 00:00:00 Christo Collins MD: [address] [place] [address] [address], [place] [address] , Ph. 2017-09-07 2017-09-08 Inpatient Christiano GAYLE, [facility] TELE [id number] [place] 15:44:00 18:20:00 [facility] 2017-09-01 2017-09-[address] [facility] TELE [id number] [place] 20:55:00 18:24:00 Medica l Center Results Test Description Test Time Test Comments Results Result Comments Source AFB culture 2022-01-27 00:13:00 Test Item Value Reference Range Interpretation Comme nts AFB culture isolate No growth after 6 weeks of Specimen InformationSpecimen (test code = 543-9) incubation. Source: TissueSpecimen Site: Arm: Left arterioven ous fistula tissue for [facility] [id number] 00:13:00 Test Item Value Reference Range Interpretation Comments AFB culture No growth Specimen isolate (test after 6 weeks InformationSp ecimen code = 543-9) of Source: Tissue Specimen incubation. Site: Arm: Left arteriovenous f istula tissue for cult [facility] [id number] 00:15:00 Test Item Value Reference Range Interpretation Comments Fungus culture No growth Specimen isolate (test after 4 weeks InformationSp ecimen code = 580-1) of Source: Tissue Specimen incubation. Site: Arm: Left arteriovenous f istula tissue for cult [facility] uhxwnsk5904-53-77 00:15:00 Test Item Value Reference Range Interpretation Comments Fungus culture No growth Specimen isolate (test after 4 weeks InformationSp ecimen code = 580-1) of Source: Tissue Specimen incubation. Site: Arm: Left arteriovenous f istula tissue [facility] [id number] 14:37:00 Test Item Value Reference Range Interpretation Comments Anaerobic No anaerobic Specimen culture isolate organisms InformationS pecimen (test code = isolated. Source: TissueS pecimen 50426-9) Site: Arm: Left arteriovenous f istula tissue [facility] [id number] 14:37:00 Test Item Value Reference Range Interpretation Comments Anaerobic No anaerobic Specimen culture isolate organisms InformationS pecimen (test code = isolated. Source: TissueS pecimen 32131-0) Site: Arm: Left arteriovenous f istula tissue [facility] [id number] 14:37:00 Test Item Value Reference Range Interpretation Comments Anaerobic No anaerobic Specimen culture isolate organisms InformationS pecimen (test code = isolated. Source: TissueS pecimen 09348-2) Site: Arm: Left arteriovenous f istula tissue for [facility] itssfwx1642-72-59 03:13:00 Test Item Value Reference Range Interpretation Comments Tissue culture No growth Specimen isolate (test after 3 days. InformationSp ecimen code = 00027-3) Source: Tiss ueSpecimen Site: Arm: Left arteriovenous f istula tissue for cult ure [facility] [id number] 03:13:00 Test Item Value Reference Range Interpretation Comments Tissue culture No growth Specimen isolate (test after 3 days. InformationSp ecimen code = 60261-2) [facility] Site: Arm: Left arteriovenous f istula tissue for [facility] mot[facility] [id number] 03:13:00 Test Item Value Reference Range Interpretation Comments Tissue culture No growth Specimen isolate (test after 3 days. InformationSp ecimen code = 86622-8) Source: [facility] Site: Arm: Left arteriovenous f istula [facility] Complete, (w Contrast, Strain and 3D if needed)2021-12-18 19:53:26 Test Item Value Reference Interpretation Comments Range Ao Root Diameter 3.28 cm (test code = 7521021104) AoV Area, Vmax (test 3.67 cm2 >=1.5 code = 3237085253) AoV Area, VTI (test 3.72 cm2 code = 1609257230) AoV Mean PG (test 3.84 mmHg code = 9319170465) AoV Peak PG (test 7.04 mmHg code = 6364079498) AoV Vmax (test code 1.37 m/s = 4477797882) AoV VTI (test code = 0.24 m 1645799258) IVS,d (test code = 1.79 cm 0.6-1 A 2394643451) IVS/LVPW,2D (test 1.28 code = 6263689587) Left Atrium 3.69 cm Dimension Anterior (test code = 1278866914) LV,d (test code = 4.62 cm 1561223171) LV EF,2D (test code 66.15 % = 8423215187) LV,s (test code = 3.22 cm 0211678081) LVOT area (test code 3.90 cm2 = 1918218720) LVOT Diam,S (test 2.23 cm code = 6489857711) LVOT Vmax (test code 1.27 m/s = 2257257917) LVOT VTI (test code 0.27 m = 9251589955) LVPWD,d (test code = 1.41 cm 0.60-1.19 A 0615336954) PV Pk Grad (test 5.97 mmHg code = 2722390325) PV VMAX (test code = 1.22 m/s 3481186005) RVOT Vmax (test code 1.17 m/s = 9843985676) MV E A ratio (test 0.80 code = 6698878108) E wave decelartion 154.26 See_Comment A [Automat ed time (test code = message] T he 4079179816) system which generated this result transmitted reference range : 200 msec. The reference range was not used to interpret this result as normal/abnormal . MV Peak A Leoncio (test 1.01 m/s code = 9583406995) MV valve area p 1/2 4.92 cm2 method (test code = 4992987520) MV Peak E Leoncio (test 0.81 m/s code = 0139166217) MV stenosis pressure 44.73 ms 1/2 time (test code = 7461937829) LVOT stroke volume 1.05 ml (test code = 7037995053) AV LVOT peak 6.26 mmHg gradient (test code = 8774375252) Ascending aorta 3.89 cm (test code = 5517078813) Ao Root Diameter 3.28 cm (test code = 5487045793) LV SYS VOL (test 41.61 ml 21-61 code = 9146665666) LV BRICEÑO VOL (test 98.42 ml 62-150 code = 4348108606) LA area s A4C (test 22.85 cm2 code = 9956455552) LV SV Teich 2D (test 56.81 ml code = 7060740720) LV Vol s Teich PSAX 41.61 ml (test code = 1380693745) RVOT pk grad (test 5.44 mmHg code = 1871620432) AoV Vmn (test code = 0.93 m/s 0725231001) LV FS Teich 2D (test 30.31 code = 1546668514) MV AE ratio (test 1.25 code = 6840719636) LV FS Cube 2D (test 30.31 code = 5332586304) LVOT Vmn (test code 0.82 = 9550994086) Aov area Vmn (test 3.64 cm2 code = 0640783524) LVOT mean grad (test 3.02 mmHg code = 0897182831) MAX Pred HR (test 173.13 code = 5743854775) 85 of MPHR (test 147.16 code = 4932304241) Calc MPHR (test code 173.13 bpm = 2520604285) LV SV Cube 2D (test 65.31 ml code = 5280897970) LV vol d cube 2D 98.73 ml (test code = 0480785074) LV vol s cube 2D 33.42 ml (test code = 0449522808) MV Decel slope (test 5.22 m/s2 code = 5531041372) Pred Exer Dur R1 10.72 (test code = 7590198038) Pred METS R1 (test 10.97 code = 2872832355) LA Vol MOD A4C (test 54.72 ml code = 3773163141) E tanesha sept (test 0.04 code = 5364076416) E prime lat (test 0.11 code = 6123637402) Velocity Ratio 0.93 m/s (V1/V2) (test code = 4689) EF (test code = 58 % 0771567434) E/A ratio (test code 0.80 = 3928860240) LVOT VTI (CM) (test 27.00 cm code = 7007185165) TAHIRA (test code = Normal left TAHIRA) ventricular size and function with an EF~ 55% to 60% with mild left ventricular hypertrophy.Normal right ventricular size and function.The aortic valve is sclerotic. Structurally normal mitral valve, tricuspid valve and pulmonic valve.Normal atria.Normal pericardium with no effusion.Grade 1 diastolic dysfunction. Left VentricleLeft ventricle size is normal. Mildly increased wall thickness.Right VentricleRight ventricle size is normal.Left AtriumLeft atrium size is normal.Right AtriumRight atrium size is normal.Mitral ValveValve structure is normal. Trace valvular regurgitation. No stenosis.Tricuspid ValveValve structure is normal. Trace valvular regurgitation. No stenosis.Aortic ValveCusp sclerosis present. No significant valvular regurgitation. No stenosis.Pulmonic ValveValve structure is normal. Trace valvular regurgitation. No stenosis.Pericardium There is no pericardial effusion present.Study DetailsStudy quality was adequate. A complete 2D, color flow Doppler and spectral Doppler echocardiogram was performed.The apical, parasternal, subcostal and suprasternal views were obtained. Lab Interpretation Abnormal (test code = 04079-6) [facility], (w Contrast, Strain and 3D if needed)2021-12-18 19:53:26 Test Item Value Reference Interpretation Comments Range Ao Root Diameter 3.28 cm (test code = 8417813780) AoV Area, Vmax (test 3.67 cm2 See_Comment [Autom ated code = 9845904709) message] The system which generated this result transmitted reference range : >=1.5. The reference range was not used to interpret this result as normal/abnormal . AoV Area, VTI (test 3.72 cm2 code = 6975134112) AoV Mean PG (test mmHg code = 5394746796) AoV Peak PG (test mmHg code = 8986868386) AoV Vmax (test code 1.37 m/s = 6757211998) AoV VTI (test code = 0.24 m 0006106472) IVS,d (test code = 1.79 cm 0.6-1 A 6037193237) IVS/LVPW,2D (test code = 1090538897) Left Atrium 3.69 cm Dimension Anterior (test code = 7503397801) LV,d (test code = 4.62 cm 7029136088) LV EF,2D (test code 66.15 % = 0016510527) LV,s (test code = 3.22 cm 9229115841) LVOT area (test code 3.90 cm2 = 2904587420) LVOT Diam,S (test 2.23 cm code = 7589548363) LVOT Vmax (test code 1.27 m/s = 3771270808) LVOT VTI (test code 0.27 m = 6638246379) LVPWD,d (test code = 1.41 cm 0.60-1.19 A 0194115689) PV Pk Grad (test mmHg code = 7227629658) PV VMAX (test code = 1.22 m/s 8630903505) RVOT Vmax (test code 1.17 m/s = 3862618247) MV E A ratio (test code = 4519384106) E wave decelartion See_Comment A [Automat ed time (test code = message] T he 6818870995) system which generated this result transmitted reference range : 200 msec. The reference range was not used to interpret this result as normal/abnormal . MV Peak A Leoncio (test 1.01 m/s code = 6456768100) MV valve area p 1/2 4.92 cm2 method (test code = 3173471045) MV Peak E Leoncio (test 0.81 m/s code = 2063071400) MV stenosis pressure 44.73 ms 1/2 time (test code = 9234737523) LVOT stroke volume 1.05 ml (test code = 7022068909) AV LVOT peak mmHg gradient (test code = 2787986453) Ascending aorta 3.89 cm (test code = 6828801411) Ao Root Diameter 3.28 cm (test code = 6216285836) LV SYS VOL (test 41.61 ml 21-61 code = 5535327050) LV BRICEÑO VOL (test 98.42 ml 62-150 code = 0765397583) LA area s A4C (test 22.85 cm2 code = 9792241048) LV SV Teich 2D (test 56.81 ml code = 4597231636) LV Vol s Teich PSAX 41.61 ml (test code = 8752417378) RVOT pk grad (test mmHg code = 7654778170) AoV Vmn (test code = 0.93 m/s 5698795242) LV FS Teich 2D (test code = 0954816384) MV AE ratio (test code = 6726431291) LV FS Cube 2D (test code = 2545434058) LVOT Vmn (test code = 3413534115) Aov area Vmn (test 3.64 cm2 code = 2329622542) LVOT mean grad (test mmHg code = 5025793204) MAX Pred HR (test code = 3682201791) 85 of MPHR (test code = 6741198021) Calc MPHR (test code bpm = 6867868583) LV SV Cube 2D (test 65.31 ml code = 0197778143) LV vol d cube 2D 98.73 ml (test code = 3269743124) LV vol s cube 2D 33.42 ml (test code = 4129538848) MV Decel slope (test 5.22 m/s2 code = 1092898208) Pred Exer Dur R1 (test code = 0917479340) Pred METS R1 (test code = 7815781356) LA Vol MOD A4C (test 54.72 ml code = 2731433970) E tanesha sept (test code = 7073763499) E prime lat (test code = 1500589649) Velocity Ratio 0.93 m/s (V1/V2) (test code = 4689) EF (test code = 58 % 4588599292) E/A ratio (test code = 8959081936) LVOT VTI (CM) (test 27.00 cm code = 3735129551) TAHIRA (test code = Normal left TAHIRA) ventricular size and function with an EF~ 55% to 60% with mild left ventricular hypertrophy.Normal right ventricular size and function.The aortic valve is sclerotic. Structurally normal mitral valve, tricuspid valve and pulmonic valve.Normal atria.Normal pericardium with no effusion.Grade 1 diastolic dysfunction. Left VentricleLeft ventricle size is normal. Mildly increased wall thickness.Right VentricleRight ventricle size is normal.Left AtriumLeft atrium size is normal.Right AtriumRight atrium size is normal.Mitral ValveValve structure is normal. Trace valvular regurgitation. No stenosis.Tricuspid ValveValve structure is normal. Trace valvular regurgitation. No stenosis.Aortic ValveCusp sclerosis present. No significant valvular regurgitation. No stenosis.Pulmonic ValveValve structure is normal. Trace valvular regurgitation. No stenosis.Pericardium There is no pericardial effusion present.Study DetailsStudy quality was adequate. A complete 2D, color flow Doppler and spectral Doppler echocardiogram was performed.The apical, parasternal, subcostal and suprasternal views were obtained. Lab Interpretation Abnormal (test code = 51659-0) [facility] fkssuoh4303-34-34 02:14:00 Test Item Value Reference Range Interpretation Comments Aerobic culture No growth Specimen isolate (test after 2 days. InformationSp ecimen code = 09542-2) Source: Robyn Donahue Site: Arm: Left arteriovenous f istula wound [facility] xjjttfw2336-09-75 02:14:00 Test Item Value Reference Range Interpretation Comments Aerobic culture No growth Specimen isolate (test after 2 days. InformationSp ecimen code = 46707-7) Source: Robyn Donahue Site: Arm: Left arteriovenous f istula wound [facility] tcsxgce8611-61-97 02:14:00 Test Item Value Reference Range Interpretation Comments Aerobic culture No growth Specimen isolate (test after 2 days. InformationSp ecimen code = 97729-6) Source: Robyn Donahue Site: Arm: Left arteriovenous f istula wound [facility] uejismk7957-67-08 22:04:00 Test Item Value Reference Range Interpretation Comments POC glucose (test code = 117 mg/dL 65-99 H Ope rator Name: 12261-8) René Terry ce ID: [id number] able: RN Notified Lab Interpretation (test Abnormal code = 89151-2) [facility] hdfmxow5736-14-72 22:04:00 Test Item Value Reference Range Interpretation Comments POC glucose (test code = 117 mg/dL 65-99 H Ope rator Name: 53765-1) René Terry ce ID: [id number] able: RN Notified Lab Interpretation (test Abnormal code = 91541-6) [facility] fqxaose1105-30-98 22:04:00 Test Item Value Reference Range Interpretation Comments POC glucose (test code = 117 mg/dL 65-99 H Ope rator Name: 29797-3) René Terry ce ID: [id number] able: RN Notified Lab Interpretation (test Abnormal code = 65295-6) [facility] ecdho9662-99-25 20:27:00 Test Item Value Reference Range Interpretation Comments Fungus smear No fungi Specimen (test code = observed. Netviewer Source: 1443) TissueSpecimen Site: Arm: Left arterioven ous fistula tissue for cult ure [facility] sljtr1818-47-49 20:27:00 Test Item Value Reference Range Interpretation Comments Fungus smear No fungi Specimen (test code = observed. Netviewer Source: 1444) TissueSpecimen Site: Arm: Left arterioven ous fistula tissue for cult ure [facility] igzmj1984-74-22 20:27:00 Test Item Value Reference Range Interpretation Comments Fungus smear No fungi Specimen (test code = observed. Netviewer Source: 1447) TissueSpecimen Site: Arm: Left arterioven ous fistula tissue for cult ure [facility] uvemm9144-49-64 17:50:00 Test Item Value Reference Range Interpretation Comments AFB stain No acid fast Specimen (test code = bacilli (AFB) InformationSpe [facility] 676-7) seen. Source: TissueS pecimen Site: Arm: Left arteriovenous f istula tissue for cult ure [facility] pibis4938-54-77 17:50:00 Test Item Value Reference Range Interpretation Comments AFB stain No acid fast Specimen (test code = bacilli (AFB) [facility]Spe [facility] seen. Source: TissueS pecimen Site: Arm: Left arteriovenous f istula tissue for cult ure [facility] gqyey5579-83-21 17:50:00 Test Item Value Reference Range Interpretation Comments AFB stain No acid fast Specimen (test code = bacilli (AFB) [facility] seen. Source: TissueS pecimen Site: Arm: Left arteriovenous f istula tissue for cult ure [facility] CenterGram nlglr7017-06-20 02:53:00 Test Item Value Reference Range Interpretation Comments Gram stain No WBC's or Specimen isolate (test organisms seen. Information Specimen code = 1469) Source: Drain[place] eSpecimen Site: Arm: Left arteriovenous f istula wound [facility] CenterG[facility] [id number] 02:53:00 Test Item Value Reference Range Interpretation Comments Gram stain No WBC's or Specimen isolate (test organisms seen. Information Specimen code = 1469) Source: [place] eSpecimen Site: Arm: Left arteriovenous f istula wound [facility] jrdwx8218-46-57 02:53:00 Test Item Value Reference Range Interpretation Comments Gram stain No WBC's or Specimen isolate (test organisms seen. Information Specimen code = 1469) Source: Drainag eSpecimen Site: Arm: Left arteriovenous f istula wound [facility] RBC, 1 Kmrtl1620-66-38 00:49:00 Test Item Value Reference Range Interpretation Comments Product name (test Red Blood Cells code = 25) -1, Leukored Unit number (test [id number] code = 9331088) Product code (test [id number] code = 3092) Dispense status Transfused (test code = 24) Blood expiration date (test code = 302) Blood type code 6200 (test code = 308) Blood type (test A POSITIVE Returned fr om code = 1314) OR in cooler, Temp:4.0 C, Hemotemp and Visual Checksacceptabl e. 12/15/21 15:06 Kassi Lowealil Compatibility (test Compatible code = 6400) TAHIRA (test code = 12/15/21 09:50 PER TAHIRA) /OR BLOOD REQUEST. Kassi Chrissytan [facility] Center[facility] RBC, 1 [id number] 00:49:00 Test Item Value Reference Range Interpretation Comments Product name (test Red Blood Cells code = 25) -1, Leukored Unit number (test [id number] code = 7982049) Product code (test [id number] code = 3092) Dispense status (test Transfused code = 24) Blood expiration date (test code = 302) Blood type code (test code = 308) Blood type (test code A POSITIVE Return ed from = 1314) OR in cooler, Temp:4.0 C, Hemotemp and Visual Checksacceptabl e. 12/15/21 15:06 Kassi Myalil Compatibility (test Compatible code = 6400) TAHIRA (test code = TAHIRA) 12/15/21 09:50 PER /OR BLOOD REQUEST. [facility]i [facility] CenterPrepare RBC, 1 [id number] 00:49:00 Test Item Value Reference Range Interpretation Comments Product name (test Red Blood Cells code = 25) -1, Leukored Unit number (test [id number] code = 3826538) Product code (test [id number] code = 3092) Dispense status (test Transfused code = 24) Blood expiration date (test code = 302) Blood type code (test code = 308) Blood type (test code A POSITIVE Return ed from = 1314) OR in cooler, Temp:4.0 C, Hemotemp and Visual Checksacceptabl e. 12/15/21 15:06 Kassi Myalil Compatibility (test Compatible code = 6400) TAHIRA (test code = TAHIRA) 12/15/21 09:50 PER /OR BLOOD REQUEST. Kassi TompkinsOcean Medical CenterArterial blood gas, djwtytyae2791-75-14 19:45:00 Test Item Value Reference Range Interpretation Comments pH, arterial (test code 7.38 7.35-7.45 = 2744-1) pCO2, arterial (test 39 See_Comment [Autom ated message] code = 2019-8) The system wh ich generated this result transmitted ref erence range: 35 - 45 mmHg. The reference r lorena was not used to interpret this result as normal/abnor mal. pO2, arterial (test code 405 See_Comment H [A utomated message] = 2703-7) The system whic h generated this result transmitted ref erence range: 80 - 90 mmHg. The reference r lorena was not used to interpret this result as normal/abnor mal. Temperature, Celsius 36.0 Degrees C (test code = 8310-5) O2 saturation, arterial 100 % 95-100 (test code = 2708-6) pH, arterial corrected 7.40 (test code = 98191-3) pCO2, arterial corrected 37 mmHg (test code = 39459-6) pO2, arterial corrected 400 mmHg (test code = 94533-6) Base excess, arterial -2 See_Comment [Auto mated message] (test code = 1925-7) The s tem which generated this result transmitted ref erence range: -2 - 2 m Eq/L. The reference r lorena was not used to interpret this result as normal/abnor mal. Lab Interpretation (test Abnormal code = 18228-8) [facility] CenterGlucose level, [id number] 19:45:00 Test Item Value Reference Range Interpretation Comments Glucose, syringe (test code = 125 mg/dL 65-99 H 2345-7) Lab Interpretation (test code = Abnormal 10179-9) [facility] CenterHemoglobin, [id number] 19:45:00 Test Item Value Reference Range Interpretation Comments Hemoglobin, syringe (test 7.0 g/dL 14.0-18.0 LL Fi nal results code = 718-7) called to and read back by Autumn Perez RN. 12/15/2021 14:4 5 HE Lab Interpretation (test Abnormal code = 09025-5) [facility] CenterIonized calcium, [id number] 19:45:00 Test Item Value Reference Range Interpretation Comments Ionized calcium, arterial (test 1.10 mmol/L 1.11-1.32 L code = 20433-8) Lab Interpretation (test code = Abnormal 95854-5) [facility] CenterPotassium, upbgwbz5918-46-57 19:45:00 Test Item Value Reference Range Interpretation Comments Potassium, syringe 4.8 See_Comment [Automat ed message] The (test code = 2007) system [facility] generated this result tra nsmitted reference range : 3.5 - 5.0 mEq/L. The refe rence range was not used to interpret this result as normal/abnormal . [facility] Center[facility], wxtzeqi3707-08-15 19:45:00 Test Item Value Reference Range Interpretation Comments Sodium, syringe (test 135 See_Comment [Auto mated message] The code = 2947-0) system which generated this result tra nsmitted reference range : 125 - 148 mEq/L. The refe rence range was not used to interpret this result as normal/abnormal . [facility] CenterArterial blood gas, [id number] 19:45:00 Test Item Value Reference Range Interpretation Comments pH, arterial (test code 7.35-7.45 = 2744-1) pCO2, arterial (test See_Comment [Autom ated message] code = 2019-8) The system [facility] generated this result transmitted ref erence range: 35 - 45 mmHg. The reference r lorena was not used to interpret this result as normal/abnor mal. pO2, arterial (test code See_Comment H [A utomated message] = 2703-7) The system [facility] generated this result transmitted ref erence range: 80 - 90 mmHg. The reference r lorena was not used to interpret this result as normal/abnor mal. Temperature, Celsius Degrees C (test code = 8310-5) O2 saturation, arterial 100 % 95-100 (test code = 2708-6) pH, arterial corrected (test code = 85032-7) pCO2, arterial corrected mmHg (test code = 59160-6) pO2, arterial corrected mmHg (test code = 91815-5) Base excess, arterial See_Comment [Auto mated message] (test code = 1925-7) The [facility] tem which generated this result transmitted ref erence range: -2 - 2 m Eq/L. The reference r lorena was not used to interpret this result as normal/abnor mal. Lab Interpretation (test Abnormal code = 31331-7) [facility] CenterGlucose level, ipdawjw6642-02-21 19:45:00 Test Item Value Reference Range Interpretation Comments Glucose, syringe (test code = 125 mg/dL 65-99 H 2345-7) Lab Interpretation (test code = Abnormal 82317-1) [facility] CenterHemoglobin, niqqumx9294-57-06 19:45:00 Test Item Value Reference Range Interpretation Comments Hemoglobin, syringe (test 7.0 g/dL 14-18 LL Fi nal results code = 718-7) called to and read back by Autumn Perez RN. 12/15/2021 14:4 5 HE Lab Interpretation (test Abnormal code = 47201-2) [facility] CenterIonized calcium, xfmvdvar2009-29-80 19:45:00 Test Item Value Reference Range Interpretation Comments Ionized calcium, arterial (test 1.10 mmol/L 1.11-1.32 L code = 56909-7) Lab Interpretation (test code = Abnormal 00038-5) [facility] CenterPotassium, gfpkirt1530-37-80 19:45:00 Test Item Value Reference Range Interpretation Comments Potassium, syringe See_Comment [Automat ed message] The (test code = 2007) system [facility] generated this result tra nsmitted reference range : 3.5 - 5.0 mEq/L. The refe rence range was not used to interpret this result as normal/abnormal . [facility] Centerodium level, idqrytu2321-74-29 19:45:00 Test Item Value Reference Range Interpretation Comments Sodium, syringe (test See_Comment [Auto mated message] The code = 2947-0) system which generated this result tra nsmitted reference range : 125 - 148 mEq/L. The refe rence range was not used to interpret this result as normal/abnormal . [facility] CenterArterial blood gas, [id number] 19:45:00 Test Item Value Reference Range Interpretation Comments pH, arterial (test code 7.35-7.45 = 2744-1) pCO2, arterial (test See_Comment [Autom ated message] code = 2019-8) The system [facility] generated this result transmitted ref erence range: 35 - 45 mmHg. The reference r lorena was not used to interpret this result as normal/abnor mal. pO2, arterial (test code See_Comment H [A utomated message] = 4523-7) The system [facility] generated this result transmitted ref erence range: 80 - 90 mmHg. The reference r lorena was not used to interpret this result as normal/abnor mal. Temperature, Celsius Degrees C (test code = 8310-5) O2 saturation, arterial 100 % 95-100 (test code = 2708-6) pH, arterial corrected (test code = 70825-0) pCO2, arterial corrected mmHg (test code = 89327-4) pO2, arterial corrected mmHg (test code = 54656-2) Base excess, arterial See_Comment [Auto mated message] (test code = 1925-7) The s tem which generated this result transmitted ref erence range: -2 - 2 m Eq/L. The reference r lorena was not used to interpret this result as normal/abnor mal. Lab Interpretation (test Abnormal code = 55963-4) [facility], [id number] 19:45:00 Test Item Value Reference Range Interpretation Comments Glucose, syringe (test code = 125 mg/dL 65-99 H 2345-7) Lab Interpretation (test code = Abnormal 20800-8) [facility]em[facility], [id number] 19:45:00 Test Item Value Reference Range Interpretation Comments Hemoglobin, syringe (test 7.0 g/dL 14.0-18.0 LL Fi nal results code = 718-7) called to and read back by Autumn Perez RN. 12/15/2021 14:4 5 HE Lab Interpretation (test Abnormal code = 22964-7) [facility] CenterIon[facility] calcium, [id number] 19:45:00 Test Item Value Reference Range Interpretation Comments Ionized calcium, arterial (test 1.10 mmol/L 1.11-1.32 L code = 26814-3) Lab Interpretation (test code = Abnormal 34134-2) [facility] CenterPotassium, [id number] 19:45:00 Test Item Value Reference Range Interpretation Comments Potassium, syringe See_Comment [Automat ed message] The (test code = 2007) system [facility] generated this result tra nsmitted reference range : 3.5 - 5.0 mEq/L. The refe rence range was not used to interpret this result as normal/abnormal . [facility], [id number] 19:45:00 Test Item Value Reference Range Interpretation Comments Sodium, syringe (test See_Comment [Auto mated message] The code = 2947-0) system which generated this result tra nsmitted reference range : 125 - 148 mEq/L. The refe rence range was not used to interpret this result as normal/abnormal . [address]2022-09-17 04:07:28 Test Item Value Reference Range Interpretation Comments Ventricular rate 63 (test code = 253) Atrial rate (test 63 code = 255) MS interval (test 158 code = 266) QRSD interval (test 80 code = 260) QT interval (test 438 code = 264) QTC interval (test 448 code = 265) P axis 1 (test code = 64 267) QRS axis 1 (test code -5 = 268) T wave axis (test 93 code = 270) EKG impression (test Normal sinus code = 273) rhythm--Possible Left atrial enlargement-Anteroseptal infarct , age undetermined-Abnormal ECG-- [address]2022-09-17 04:07:28 Test Item Value Reference Range Interpretation Comments Ventricular rate (test code = 253) Atrial rate (test code = 255) MS interval (test code = 266) QRSD interval (test code = 260) QT interval (test code = 264) QTC interval (test code = 265) P axis 1 (test code = 267) QRS axis 1 (test code = 268) T wave axis (test code = 270) EKG impression (test Normal sinus code = 273) rhythm--Possible Left atrial enlargement-Anteroseptal infarct , age undetermined-Abnormal ECG-- [address]2022-09-17 04:07:28 Test Item Value Reference Range Interpretation Comments Ventricular rate (test code = 253) Atrial rate (test code = 255) MS interval (test code = 266) QRSD interval (test code = 260) QT interval (test code = 264) QTC interval (test code = 265) P axis 1 (test code = 267) QRS axis 1 (test code = 268) T wave axis (test code = 270) EKG impression (test Normal sinus code = 273) rhythm--Possible Left atrial enlargement-Anteroseptal infarct , age undetermined-Abnormal ECG-- [facility] CenterARS-CoV-2 (COVID-19) RNA [Presence] in Respiratory specimen by CHER with probe [id number] 02:56:55 Test Item Value Reference Range Interpretation Comments SARS-CoV-2 (COVID-19) RNA Not detected [Presence] in Respiratory specimen by CHER with probe detection (test code = 16433-6) Whether patient is employed in a Unknown healthcare setting (test code = 63560-4) Whether the patient has symptoms Unknown related to condition of interest (test code = 45059-0) Whether the patient was Unknown hospitalized for condition of interest (test code = 88345-0) Whether the patient was admitted Unknown to intensive care unit (ICU) for condition of interest (test code = 29605-2) Whether patient resides in a Unknown congregate care setting (test code = 60178-5) status (test code = Unknown 91221-2) Date and time of symptom onset Unknown (test code = 20279-2) [facility] [id number] 18:21:00 Test Item Value Reference Range Interpretation Comments HEPATITIS B SURFACE ANTIGEN (2) Nonreactive Nonreactive (BEAKER) (test code = 2585) ANG, THROMBECTOMY, A-V [id number] 13:26:00Reason for exam:- >nonfunctioning fistulaAnesthesia:->moderateFINAL REPORT DIALYSIS [...] seconds Radiation dose (Ka,r): 89 mGy Signed: Vin Rojas MDReport Verified Date/Time: 02/18/2019 13:26:57 Reading Location: [facility] [address] Radiology Reading Room [id number] 05:52:00 Test Item Value Reference Range Interpretation Comments MAGNESIUM (BEAKER) (test code = 2.0 mg/dL 1.5-3.0 627) BASIC METABOLIC [id number] 05:51:00 Test Item Value Reference Range Interpretation [...] PATIEN TS. CBC W/PLT COUNT & AUTO [id number] 05:37:00 Test Item Value Reference Range Interpretation [...] = 2801) RAD, CHEST, 1 VIEW, NON [id number] 09:21:00Reason for exam:- >pneumoniaShould this be performed at the bedside?->YesFINAL REPORT TECHNIQUE: Frontal view of the chest. INDICATION: pneumonia COMPARISON:Prior day. IMPRESSION:Lines and hardware: Stable.Heart and mediastinum: Stable.Lungs and pleura:Probable scattered atelectasis. No focal airspace consolidation. Central coronary venous congestion.No pleural effusion. No pneumothorax.Soft tissues and bones: No acute abnormality. Signed: Rupinder Perez MDReport Verified Date/Time: 02/17/2019 09:21:38 Reading Location: [facility] [address] Radiology Reading Room COMPREHENSIVE METABOLIC [id number] 06:48:00 Test Item Value Reference Range Interpretation [...] S NOT APPLICABLE FOR DIALYSIS PATIEN TS. [id number] 06:30:00 Test Item Value Reference Range Interpretation Comments MAGNESIUM (BEAKER) (test code = 2.0 mg/dL 1.5-3.0 627) TROPONIN [id number] 06:27:00 Test Item Value Reference Range Interpretation [...] = 2801) RAD, CHEST, 1 VIEW, NON [id number] 00:02:00Reason for exam:- >PNEUMONIAShould this be performed [...] Findings suggestive of mild volume overload. Signed: Rm Garcia [facility] Verified Date/Time: 02/17/2019 00:02:21 Reading Location: [address] Consult Reading Room TROPONIN [id number] 19:17:00 Test Item Value Reference Range Interpretation [...] acute neurological disease, and persistent tachyarrhythmia.COMPREHENSIVE METABOLIC [id number] 19:13:00 Test Item Value Reference Range Interpretation [...] S NOT APPLICABLE FOR DIALYSIS PATIEN TS. [id number] 19:10:00 Test Item Value Reference Range Interpretation Comments MAGNESIUM (BEAKER) 2.1 mg/dL 1.5-3.0 Specimen moderately (test code = 627) hemolyzed CBC W/PLT COUNT & AUTO [id number] 18:47:00 Test Item Value Reference Range Interpretation [...] PERCENT (BEAKER) (test code = 2801) BLOOD [id number] 07:18:00 Test Item Value Reference Range Interpretation Comments Culture Observations (test NO GROWTH AFTER 5 code = COB1) DAYS BLOOD [id number] 07:18:00 Test Item Value Reference Range Interpretation Comments Culture Observations (test NO GROWTH AFTER 5 code = COB1) DAYS HEPATITIS B CORE ANTIBODY,[id number] 12:26:00 Test Item Value Reference Range Interpretation Comments HEPATITIS B CORE AB NON-REACTIVE NON-REACTIVE TEST PER FORMED TOTAL (test code = AT:[facility] 65018652) [id number] [place] [address]SPBJBKAI SANTIAGO M.D. XR CHEST 1 [id number] 08:09:24 Location of dictation: K8Bclmoogy chest one view.HISTORY: J81.1: CHRONIC PULMONARY EDEMACOMMENT: Compared to one day prior. The heart is enlarged but stable, globularappearance suggests pericardial eff usion. Small effusions are now presentslightly greater on the left. No new consolidation, pneumothorax seen.Impression:1. Stable cardiomegaly with concern for pericardial effusion.2. Interval development of small effusions slightly greater on the left.BASIC METABOLIC [id number] 07:14:00 Test Item Value Reference Range Interpretation [...] code = RBCMOR) NORMAL XR CHEST 1 [id number] 07:33:56STUDY: Chest radiographHISTORY: Fever.COMPARISON: 09/05/17TECHNIQUE: Frontal view of the chest.LOCATION: [id number]:The cardiac silhouette is enlarged, stable. Bilateral patchy perihilaropacities are similar in appearance. There is no definitive pleural effusion ordiscernible pneumothorax. No acute osseous abnormalities are identified.IMPRESSION:Stable appearance of bilateral perihilar patchy opacities and cardiomegaly.BASIC METABOLIC [id number] 04:50:00 Test Item Value Reference Range Interpretation [...] (test code = 09D) 8.6 mg/dL 8.3-9.5 [id number] 04:43:00 Test Item Value Reference Range Interpretation [...] MORPH (test code = RBCMOR) NORMAL CARDIAC [id number] 03:24:00 Test Item Value Reference Range Interpretation Comments TROPONIN I (test code = A84) 0.269 ng/mL 0.000-0.045 H CKMB (test code = A49) 7.8 ng/mL <=3.6 HH CPK (test code = 32A) 414 IU/L 39-308 H BASIC METABOLIC [id number] 03:08:00 Test Item Value Reference Range Interpretation [...] code = RBCMOR) NORMAL HEPATITIS B SURFACE [id number] 21:09:00 Test Item Value Reference Range Interpretation Comments HBSAB (test code = HBSAB) REACTIVE REACTIVE HEPATITIS B SURFACE [id number] 20:37:00 Test Item Value Reference Range Interpretation Comments HBSAG (test code = HBSAG) NON-REACTIVE NON-REACTIVE CARDIAC [id number] 20:23:00 Test Item Value Reference Range Interpretation Comments TROPONIN I (test code = A84) 0.231 ng/mL 0.000-0.045 H CKMB (test code = A49) 11.0 ng/mL <=3.6 HH CPK (test code = 32A) 469 IU/L 39-308 H PRO TIME AND [id number] 11:37:00 Test Item Value Reference Range Interpretation [...] = RBCMOR) NORMAL XR CHEST 1 VIEW [id number] 10:04:30EXAMINATION: XR CHEST 1 VIEW PORTABLE.LOCATION: D4.HISTORY: [...] tiny effusions, unchangedsince 09/01/2017,probably reflect vascular congestion.OCCULT [id number] 11:04:00 Test Item Value Reference Range Interpretation [...] 31A) 27 IU/L <=78 CBC (INCLUDES AUTOMATED DIFFERENTIAL)*[id number] 09:07:00 Test Item Value Reference Range Interpretation [...] NON-REACTIVE TEST PERFOR MED ANTIBODY (IGM) (test AT:[facility] code = 48999579) [address] [address]VYEBLKAI SANTIAGO M.D. HEPATITIS B SURFACE ANTIBODY 2017-09-02 15:30:00 Test Item Value Reference Range Interpretation Comments HBSAB (test code = HBSAB) REACTIVE REACTIVE XR CHEST 2 VIEW 2017-09-01 23:21:54XR CHEST 2 VIEW Location:[address] services provided 09/01/2017 11:21 PMIndication:[id number]: Hypertensive disorderComparison:Not currently availableFindings:The heart is enlarged with mild engorgement of the pulmonaryvascularity and prominence of the pulmonary interstitium. Bilateral pleuralfluid collections are noted. No chicho lobar consolidation is seen. No acutebony abnormality.Impression:Findings concerning for cardiogenic pulmonary edema with bilateralpleural fluid collections. HEPATITIS B CORE ANTIBODY,[id number] 12:54:00 Test Item Value Reference Range Interpretation Comments HEPATITIS B CORE AB NON-REACTIVE NON-REACTIVE TEST PER FORMED TOTAL (test code = AT:[facility] 33123528) [id number] [place] [address]YXHHUKAI SANTIAGO M.D. GLUCOMETER GLUCOSE- LAB USE [id number] 06:26:00 Test Item Value Reference Range Interpretation Comments GLUCOMETER (test code = 102 mg/dL 70-100 H Mete r ID: GMG) [id number] tor: [address] NM LUNG (V/Q ) SCAN W [id number] 15:28:50Radionuclide ventilation/perfusion lung scanLocation Code: F8HGUUBAW: Shortness of breathCOMPARISON:None.COMMENT: Routine images of the lungs were obtained after inhalation of 11.1 mCiof Xe133 gas andintravenous injection of 6.0 mCi 99 M technetium MAA.Ventilation is symmetric bilaterally with no focal defect. There is nosignificant trapping.Perfusion images demonstrate normal and symmetric perfusion with no segmentaldefect to suggest a PE.IMPRESSION: Normal VQ scan with a low probability of PE.BASIC METABOLIC [id number] 07:39:00 Test Item Value Reference Range Interpretation [...] code = RBCMOR) NORMAL HEPATITIS B SURFACE [id number] 18:54:00 Test Item Value Reference Range Interpretation Comments HBSAB (test code = HBSAB) REACTIVE REACTIVE HEPATITIS B SURFACE [id number] 18:37:00 Test Item Value Reference Range Interpretation Comments HBSAG (test code = HBSAG) NON-REACTIVE NON-REACTIVE CARDIAC [id number] 18:35:00 Test Item Value Reference Range Interpretation Comments TROPONIN I (test code = A84) 0.115 ng/mL 0.000-0.045 H CKMB (test code = A49) 7.0 ng/mL <=3.6 HH CPK (test code = 32A) 652 IU/L 39-308 H CARDIAC [id number] 14:04:00 Test Item Value Reference Range Interpretation Comments TROPONIN I (test code = A84) 0.120 ng/mL 0.000-0.045 H CKMB (test code = A49) 7.4 ng/mL <=3.6 HH CPK (test code = 32A) 651 IU/L 39-308 H GLUCOMETER GLUCOSE- LAB USE [id number] 11:12:00 Test Item Value Reference Range Interpretation Comments GLUCOMETER (test code = 99 mg/dL 70-100 LIGIA BRUNA METERMeter ID: GMG) [id number] tor: [address] WOODARMANDMaira OWO GLUCOMETER GLUCOSE- LAB USE [id number] 04:22:00 Test Item Value Reference Range Interpretation Comments GLUCOMETER (test code = 116 mg/dL 70-100 H Mete r ID: GMG) [id number] tor: [address] CORK[address]OL[address] GLUCOMETER GLUCOSE- LAB USE [id number] 03:33:00 Test Item Value Reference Range Interpretation Comments GLUCOMETER (test code = 42 mg/dL 70-100 LL Mete r ID: GMG) [id number] tor: [address] CORK[address] MAHONEY BRAIN NATRIURETIC [id number] 02:13:00 Test Item Value Reference Range Interpretation Comments proBNP (test code = PBNP) >996530 pg/mL 0-125 H XR ABDOMEN 2 VIEWS W/PA [id number] 02:11:50-CHEST AP VIEW-ABDOMEN AP AND UPRIGHT VIEWS LOCATION: [id number] INDICATION: Vomiting and shortnessof breathCOMPARISON: None FINDINGS: [...] obstruction, CT is recommended for further assessment.CARDIAC [id number] 01:33:00 Test Item Value Reference Range Interpretation Comments TROPONIN I (test code = A84) 0.147 ng/mL 0.000-0.045 H CKMB (test code = A49) 7.0 ng/mL <=3.6 HH CPK (test code = 32A) 688 IU/L 39-308 H COMPREHENSIVE METABOLIC [id number] 01:32:00 Test Item Value Reference Range Interpretation [...] 31A) 121 IU/L <=78 H AMYLASE AND [id number] 01:31:00 Test Item Value Reference Range Interpretation Comments AMYLASE (test code = 10A) 157 U/L 28-100 H LIPASE (test code = 60A) 224 IU/L 73-393 [id number] 01:26:00 Test Item Value Reference Range Interpretation Comments D-DIMER (test code = 687 ng/mL D-DU 0-234 H DDI) D-DIMER COMMENT (test *Level to rule out code = DDCOM) DVT or PE: <235 ng/mL D-DU* PRO TIME AND [id number] 01:26:00 Test Item Value Reference Range Interpretation [...]
--- NOTE | 2022-05-08 15:27 | RAD REPORT ---
EXAM DESCRIPTION: US - Abdomen Exam Limited - 05/08/2022 3:18 pm CLINICAL HISTORY: right upper abdominal pain COMPARISON: No comparisons FINDINGS: The gallbladder demonstrates no gallstones. No pericholecystic fluid or gallbladder wall t hickening. The common bile duct is normal measuring 3 mm. The liver demonstrates no findings of intrahepatic biliary dilatation. IMPRESSION: Unremarkable examination.
--- NOTE | 2022-05-08 15:40 | RAD REPORT ---
EXAM DESCRIPTION: CT - Chest Abd Pelvis Wo Con - 05/08/2022 3:22 pm CLINICAL HISTORY: Chest and abdomen pain. right sided chest pain, abdominal pain COMPARISON: No comparisons TECHNIQUE: A limited noncontrast study was performed. All CT scans are performed using dose optimization technique as appropriate and may include automated exposure control or mA/KV adjustment according to patient size. FINDINGS: There is evidence of a large thick walled loculated pleural collection. This has the appea bibiana of loculated pleural fluid.A large cystic mass could have a similar appearance.Atelectasis of a significant portion of the right lower lobe is present.No intrathoracic adenopathy.Thoracic aortic s tent. Hardware left lateral thoracic cage. The liver, spleen, pancreas, adrenal glands are within normal limits. Atrophic bilateral kidneys with multiple cysts. No bowel obstruction, free air, free fluid or abscess. Moderate stool is present throughout the colon . Nonvisualized appendix. No pathologic lymphadenopathy in the abdomen or pelvis. Left L1, L2, L3, left transverse processes are fractured, age undetermined. IMPRESSION: Thick walled loculated fluid density on the right which is quite large.It measures appro ximately 15 x 13 cm. While loculated fluid is possible, cannot rule out cystic mass.
--- NOTE | 2022-05-08 17:02 | RAD REPORT ---
EXAM DESCRIPTION: US - Extremity Nonvascular Limited - 05/08/2022 4:56 pm CLINICAL HISTORY: evaluation loculated effusion COMPARISON: No comparisons TECHNIQUE: Real-time sonographic evaluation of the area of interest was performed. FINDINGS: Right pleural space demonstrates numerous cystic/ loculated fluid type collections with la rge thick septa. This would be favored to represent a heavily loculated right pleural effusion. An un usual cystic mass is not completely ruled out.
--- NOTE | 2022-05-08 17:38 | ER ---
Nurse's Notes [facility] Name: Velasquez Cruz Age: 47 yrs Sex: Male : 1975 Arrival Date: 05/08/2022 Time: 14:45 Bed Treatment Private MD: Diagnosis: Pleural effusion, not elsewhere classified Presentation: 05/08 14:53 Chief complaint: Patient states: pain to right lateral aspect of chest that began 2 aa5 days ago, pt also reports nausea/vomiting. Reports last dialysis was today. Pt reports he was temporarily placed at [facility], pt states "waiting on an apartment". Coronavirus screen: vomiting. Ebola Screen: Patient denies travel to an Ebola-affected area in the 21 days before illness onset. Initial Sepsis Screen: Does the patient meet any 2 criteria? No. Patient's initial sepsis screen is negative. Does the patient have a suspected source of infection? No. Patient's initial sepsis screen is negative. Risk Assessment: Do you want to hurt yourself or someone else? Patient reports no desire to harm self or others. Onset of symptoms was May 2022. 14:53 Method Of Arrival: Ambulatory aa5 14:53 Acuity: HEAVEN 3 aa5 Triage Assessment: 17:49 General: Appears in no apparent distress. Behavior is calm, cooperative. Pain: ap3 Complains of pain in chest Pain began gradually. Neuro: Level of Consciousness is awake, alert, obeys commands, Oriented to person, place, time, situation, Speech is normal, Facial symmetry appears normal. Cardiovascular: Patient's skin is warm and dry. Respiratory: Airway is patent Respiratory effort is even, unlabored, Respiratory pattern is regular, symmetrical. Historical: - Allergies: 14:51 No Known Allergies; aa5 - PMHx: 14:51 Bipolar disorder; DVT; HD MWF; Hypertensive disorder; COPD; cocaine abuse; Heart aa5 Failure; Anxiety; Anemia; - Immunization history:: Adult Immunizations unknown. - Social history:: Smoking status: Patient reports the use of cigarette tobacco products, smokes one-half pack cigarettes per day. Screenin:49 [facility] ED Fall Risk Assessment (Adult) History of falling in the last 3 months, ap3 including since admission No falls in past 3 months (0 pts). Abuse screen: Denies threats or abuse. Nutritional screening: No deficits noted. Tuberculosis screening: No symptoms or risk factors identified. Assessment: 16:24 General: Pt refusing IV and blood work at this time, does not want an EJ IV, ERP jl7 notified. ERP reports Dr. Espinal will look at imaging and will determine POC at that time.. 16:30 General: PIA Blackman at bedside discussing results and POC. jl7 17:50 GI: Bowel sounds present X 4 quads. Abd is soft. ap3 Vital Signs: 14:53 BP 192 / 114; Pulse 85; Resp 16 S; Temp 98.1(TE); Pulse Ox 96% on R/A; Weight 78.02 kg aa5 (R); Height 5 ft. 7 in. (170.18 cm) (R); 14:53 Body Mass Index 26.94 (78.02 kg, 170.18 cm) aa5 ED Course: 14:45 Patient arrived in ED. as 14:50 Yehuda Lugo PA is PHCP. [facility] 14:50 Kiet Funez DO is Attending Physician. [facility] 14:51 Arm band placed on. aa5 14:54 Triage completed. aa5 15:20 US Abdomen Limited In Process Unspecified. EDMS 15:23 CT Chest Abdomen Pelvis W/O Contrast In Process Unspecified. EDMS 16:15 Ashleigh Maloney, RN is Primary Nurse. ap3 16:24 Missed attempt(s): 22 gauge in left forearm. Bleeding controlled, band aid applied, jl7 catheter tip intact. 16:56 US Extrmty Nonvasular Limited In Process Unspecified. EDMS 17:38 Dimitrios Espinal MD is Referral Physician. [facility] 17:50 Patient has correct armband on for positive identification. Bed in low position. Call ap3 light in reach. Pulse ox on. NIBP on. Door closed. Noise minimized. Warm blanket given. 17:50 No provider procedures requiring assistance completed. Patient did not have IV access ap3 during this emergency room visit. Administered Medications: 17:46 Drug: Hinckley (HYDROcodone-acetaminophen) 10 mg-325 mg 1 tabs Route: PO; ap3 Medication: 17:50 VIS not applicable for this client. ap3 Outcome: 17:38 Discharge ordered by . [facility] 17:50 Discharged to halfway. ap3 17:50 Condition: good 17:50 Discharge instructions given to patient, halfway, Instructed on discharge instructions, follow up and referral plans. Demonstrated understanding of instructions, follow-up care. 17:50 Patient left the ED. ap3 Signatures: Dispatcher [employer] EDMS Yehuda Lugo PA PA jmm Martinez, Amelia as Calderon, Audri, RN RN aa5 Pennie Tovar RN RN jl7 Ashleigh Maloney RN RN ap3 Corrections: (The following items were deleted from the chart) 14:55 14:53 Chief complaint: Patient states: pain to right lateral aspect of chest that began aa5 2 days ago, pt also reports nausea/vomiting. Reports last dialysis was today. aa5
--- NOTE | 2022-05-08 17:39 | EDPHYS ---
Physician Documentation [facility] Name: Velasquez Cruz Age: 47 yrs Sex: Male : 1975 Arrival Date: 05/08/2022 Time: 14:45 Bed Treatment Private MD: ED Physician Kiet Funez HPI: 05/08 14:56 This 47 yrs old Black Male presents to ER via Ambulatory with complaints of Abdominal jmm Pain. 14:56 Onset: The symptoms/episode began/occurred gradually, 3 day(s) ago. Is a 47-year-old jmm male with a history of bipolar, hypertension, end-stage renal disease, COPD the presents emerged part with complaints of right lower chest pain and abdominal pain. Symptoms began approximately 3 days ago. Patient states he developed nausea today denies fever or vomiting. Denies diarrhea. Patient did have dialysis today. Historical: - Allergies: 14:51 No Known Allergies; aa5 - PMHx: 14:51 Bipolar disorder; DVT; HD MWF; Hypertensive disorder; COPD; cocaine abuse; Heart aa5 Failure; Anxiety; Anemia; - Immunization history:: Adult Immunizations unknown. - Social history:: Smoking status: Patient reports the use of cigarette tobacco products, smokes one-half pack cigarettes per day. ROS: 14:56 Constitutional: Negative for fever, chills, and weight loss, Cardiovascular: Negative jmm for chest pain, palpitations, and edema, Respiratory: Negative for shortness of breath, cough, wheezing, and pleuritic chest pain. 14:56 Abdomen/GI: Positive for abdominal pain, nausea. 14:56 All other systems are negative. Exam: 14:56 Constitutional: This is a well developed, well nourished patient who is awake, alert, jmm and in no acute distress. Head/Face: atraumatic. Eyes: EOMI, no conjunctival erythema appreciated ENT: Moist Mucus Membranes Neck: Trachea midline, Supple Chest/axilla: Normal chest wall appearance and motion. Cardiovascular: Regular rate and rhythm. No edema appreciated Respiratory: Normal respirations, no respiratory distress appreciated Back: Normal ROM Skin: General appearance color normal MS/ Extremity: Moves all extremities, no obvious deformities appreciated, no edema noted to the lower extremities Neuro: Awake and alert Psych: Behavior is normal, Mood is normal, Patient is cooperative and pleasant 14:56 Abdomen/GI: Inspection: abdomen appears normal, Bowel sounds: normal, Palpation: soft, mild abdominal tenderness, in the right upper quadrant. Vital Signs: 14:53 BP 192 / 114; Pulse 85; Resp 16 S; Temp 98.1(TE); Pulse Ox 96% on R/A; Weight 78.02 kg aa5 (R); Height 5 ft. 7 in. (170.18 cm) (R); 14:53 Body Mass Index 26.94 (78.02 kg, 170.18 cm) aa5 MDM: 14:56 Patient medically screened. [facility] 18:15 Data reviewed: vital signs, nurses notes. Consideration of Admission/Observation. [facility] Management of patient was discussed with the following: Model Maker Apprentice: Dr. Espinal. I considered the following discharge prescriptions or medication management in the emergency department Medications were administered in the Emergency Department. See MAR. Care significantly affected by the following chronic conditions: End-stage renal disease. Counseling: I had a detailed discussion with the patient and/or guardian regarding: the historical points, exam findings, and any diagnostic results supporting the discharge/admit diagnosis, radiology results, the need to transfer to another facility. ED course: I discussed the patient with Dr. Mcmillan whom evaluated the CT scan. Did initially recommend transfer due to loculated pleural effusion. I discussed the need for transfer with the patient whom declined. Has a preference to follow-up outpatient. Patient is not currently febrile or hypoxic. Based on the vital signs and physical exam patient appears stable for outpatient follow-up. Patient did also refuse blood work due to the number of needle sticks. I discussed it further with Dr. Mcmillan who stated he will follow-up with the patient outpatient. Patient was otherwise given strict return precautions. Patient understood agrees plan of care.. 05/08 14:57 Order name: US Abdomen Limited; Complete Time: 15:28 [facility] 05/08 14:57 Order name: CT Chest Abdomen Pelvis W/O Contrast; Complete Time: 15:41 [facility] 05/08 16:38 Order name: Extrmty Nonvasular Limited; Complete Time: 17:05 [facility] Administered Medications: 17:46 Drug: [place] (HYDROcodone-acetaminophen) 10 mg-325 mg 1 tabs Route: PO; ap3 Disposition: 18:54 Co-signature as Attending Physician, Kiet Funez DO I was immediately available on-site ms3 in the Emergency Department for consultation in the care of the patient. Disposition Summary: 05/08/22 17:38 Discharge Ordered Location: Home jm Condition: Stable jmm Diagnosis - Pleural effusion, not elsewhere classified jmm Followup: jmm - With: Dimitrios Espinal MD - When: Tomorrow - Reason: Recheck today's complaints, Continuance of care, Re-evaluation by your physician Discharge Instructions: - Discharge Summary Sheet jm - Pleural Effusion [facility] Forms: - Medication Reconciliation Form [facility] - Thank You Letter m - Antibiotic Education jmm - Prescription Opioid Use [facility] Signatures: Dispatcher [employer] EDMS Yehuda Lugo PA PA jmm Calderon, Audri, RN RN aa5 Ashleigh Maloney RN RN ap3 Kiet Funez, DO DO ms3
[2022-05-08] MEDS ORDERED: HYDROCODONE/APAP 10/325 TAB ONE (17:48)
[2022-05-08 18:25] VITALS: BP 192/114; TEMP 98.1; O2SAT 96
== END 2022-05-08 17:50 | disposition home or self-care (01) ==
LOC: ER 14:42
DX: J90 Pleural effusion, not elsewhere classified (principal); I10 Essential (primary) hypertension; F17.210 Nicotine dependence, cigarettes, uncomplicated; Z99.2 Dependence on renal dialysis
CPT/HCPCS: 71250; 74176; 76705; 76882

== ENCOUNTER 2022-05-29 11:53 | Emergency (ER) | payer OTHER ==
--- OUTSIDE RECORDS SUMMARY | 2022-05-29 12:24 | XMS REPORT | Continuity of Care Document ---
:[address] [facility] t Address [address] [place] [address] Care Team Providers Name Role Phone UNKNOWN, REFFERING Primary Care Physician Unavailable ENRIQUE THOMPSON Attending Clinician Unavailable Lana Angel LVN Attending Clinician JEAN-CLAUDE COHEN Attending Clinician Unavailable Ld Bain Attending Clinician Natalie Mustafa MD Attending Clinician Jovani Diaz MD Attending Clinician Jean-Claude Cohen MD Attending Clinician [email or web address] Attending Clinician Unavailable Clinic-Stv, Care Transition Attending Clinician Unavailable MIGUEL ÁNGEL JUSTICE Attending Clinician Unavailable COLLEEN VIZCARRA Attending Clinician Unavailable Conrad ROBERTO, Aubree Beckett Attending Clinician Abbi ELLIOTT, Bunny Attending Clinician Reshma ELLIOTT, Miguel Ángel Wilson Attending Clinician Doctor Unassigned, [place] Attending Clinician Unavailable Phong BAKER, Emily Attending Clinician Unavailable Ko ELLIOTT, Jorje Vasquez Attending Clinician Medardo ELLIOTT, Alma Luke Attending Clinician Alex ELLIOTT, Rakel Mcguire Attending Clinician Evans ELLIOTT, Nakul Pedro Attending Clinician [phone] Yaniv ELLIOTT, Virgilio Hill Attending Clinician Meghana SALCIDO, Dallas Rodriguez Attending Clinician [phone] Mara Padron Attending Clinician [phone] Robert Mccarthy Attending Clinician [phone] BOB Attending Clinician Unavailable June Attending Clinician [phone] [email or web address] Attending Clinician Unavailable KHADAR CALHOUN Attending Clinician Unavailable DR KACEY GAYLE Attending Clinician Unavailable DR KHADAR CALHOUN Attending Clinician Unavailable DR ELAINE MCWILLIAMS Attending Clinician Unavailable JEAN-CLAUDE COHEN Admitting Clinician Unavailable Jean-Claude Cohen MD Admitting Clinician [email or web address]_Gume Admitting Clinician Unavailable RAKEL WAN Admitting Clinician Unavailable MD ALMA WHITMAN Admitting Clinician Unavailable BOB Admitting Clinician Unavailable [email or web address]_G Admitting Clinician Unavailable KHADAR CALHOUN Admitting Clinician Unavailable DR KACEY GAYLE Admitting Clinician Unavailable DR KHADAR CALHOUN Admitting Clinician Unavailable DR ELAINE MCWILLIAMS Admitting Clinician Unavailable Payers Payer Name Policy Type Policy Number Effective Date Expiration Date S tiffany [facility] MED[facility] [id number] 2021 ADVANTAGE PLAN 00:00:00 [facility] [id number] 2019 [facility] - 00:00:00 [facility] - [id number] 2021 COMMUNITY CARE - 00:00:00 [facility] - CABLE TELEVISION TECHNICIAN CARE (MEDICAID HMO) Problems Condition Condition Condition Status Onset Resolution Last Treating Co mments Source Name Details Category Date Date Treatment Clinician Date Hemothorax Hemothorax Disease Active U nivers on right on right 2-20 ity of 00:00: [place] 00 Medical Branch Lung Lung Disease Recurre Univers entrapment entrapment nce 2-20 it y of 00:00: [place] [facility] History of History of Problem Active [facility] repair of Repair of 2-15 Medi ellyn thoracic Thoracic 00:00: aortic Aortic 00 aneurysm Aneurysm ESRD (end ESRD (end Disease Active Uni vers stage stage 2-09 ity of renal renal 00:00: [place] disease) disease) 00 Medica l Branch Hyperkalem Hyperkalem Disease Active U nivers ia ia 2-09 ity of 00:00: [place] 00 Medical Branch Bipolar I Bipolar I Problem Active [place] via disorder Disorder 1-15 Medica l 00:00: 00 Insomnia Insomnia Problem Active 2021-03 [facility] 2-22 Medical 00:00: 00 Lives in a Lives in a Problem Active 2021-03 [facility] nursing Nursing 2-13 Medical home Home 00:00: 00 Dry skin Dry Skin Problem Active 2021-03 [facility] a 2-02 Medical 00:00: 00 Nicotine Nicotine Problem Active [...] Hypercoagu Problem Active [facility] lability lability 09-10 Medica l state State 00:00: 00 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 [place] via end stage End Stage 08-30 Medi ellyn renal Renal 00:00: disease Disease 00 Vitamin D Vitamin D Problem Active [place] via deficiency Deficiency 08-19 Me dical 00:00: 00 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 00:00: disorder Disorder 00 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:00: depression Depression 00 Aneurysm Aneurysm Problem Active [facility] a of artery of Artery 22 Medi ellyn of upper of Upper 00:00: extremity Extremity 00 Folic acid Folic Acid Problem Active [facility] deficiency Deficiency 17 Me dical 00:00: 00 Hyperkalem Hyperkalem Problem Active [facility] ia ia 08-04 Medical 00:00: 00 Hypertensi Hypertensi Problem Active [facility] ve heart ve Heart 08-04 Medica l and renal and Renal 00:00: disease Disease 00 with both with Both (congestiv (Congestiv e) heart e) Heart failure Failure and renal and Renal failure Failure Arterioven Arterioven Problem Active [facility] ous ous 5-07 Medical fistula Fistula 00:00: 00 Peripheral Peripheral Problem Active [facility] vascular Vascular 4-29 Medica l disease Disease 00:00: 00 Chronic Chronic Problem Active [facility] obstructiv Obstructiv 4-29 Me dical e lung e Lung 00:00: [...] St occlusion occlusion 1-19 Luke s 00:00: [facility] 00 Center AV fistula AV fistula Disease Active M ethodi occlusion occlusion 9-13 st 00:00: [facility] l Pulmonary Pulmonary Disease Active Uni vers edema edema 1-21 ity of 00:00: [place] [address] Medical Branch Obesity Obesity Disease Active Univers (BMI (BMI 1-21 ity of 30-39.9) 30-39.9) 00:00: [place] [address] Medical Branch Respirator Respirator Disease Active U nivers y [...] Pain of Disease Active Univers right right 103 ity of upper upper 00:00: [place] extremity extremity 00 Medi ellyn Branch Swelling Swelling Disease Active Unive rs of right of right 02 ity of upper upper 00:00: [place] extremity extremity 00 Medi ellyn Branch 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 Medical Group Allergies, Adverse Reactions, Alerts Allergy Allergy Status Severity Reaction(s) Onset Inactive Treating Comm ents Source Name Type Date Date Clinician Nifedipi Drug Active Anxiety Hot [facility] NIFEDIPI DRUG Active Low Anxiety Univers NE INGREDI 3-03 ity of 00:00: [place] [address] [place] [address] Branch Nifedipi Allergy Active [facility] ne to 3-03 Medical substanc 00:00: e 00 NO KNOWN Drug Active Univers ALLERGIE Class ity of S [facility] Family History Family Member Diagnosis Comments Start Date Stop Date Source Natural father Unremarkable [facility] Natural father Heart [facility] Natural father Hypertension Universi ty [facility] Natural sister Unremarkable [facility] Natural mother Other - see comments [facility] Other Other - see comments Univ ersity of [facility] Social History Social Habit Start Date Stop Date Quantity Comments Source History SDOH Social Unive rsity of [facility] Med ical Together Branch History SDOH Social Unive rsity of [facility] Branch History SDOH Social Unive rsity of [facility] Medical Membership Branch History SDOH Social Unive rsity of [facility] Medical [facility] Branch History of tobacco Cigarette Smoker University [facility] History SDOH 2022-05-13 2022-05-13 2 University o f Financial 00:00:00 00:00:00 [place] [facility] History SDOH Food 2022-05-13 2022-05-13 1 Univers ity of Worry 00:00:00 00:00:00 [place] [facility] History SDOH Food 2022-05-13 2022-05-13 2 Univers ity of Scarcity 00:00:00 00:00:00 [place] [facility] History SDOH 2022-05-13 2022-05-13 2 University o f Transport Med 00:00:00 00:00:00 [place] Medic al Branch History SDOH 2022-05-13 2022-05-13 2 University o f Transport Non-Med 00:00:00 00:00:00 [place] M edical Branch History SDOH 2022-05-10 2022-05-10 1 University o f Alcohol Frequency 00:00:00 00:00:00 [place] M edical Branch History SDOH 2022-05-10 2022-05-10 0 University o f Alcohol Std Drinks 00:00:00 00:00:00 [place] [facility] History SDOH 2022-05-10 2022-05-10 1 University o f Alcohol Binge 00:00:00 00:00:00 [place] Medic al Branch History SDOH Social 2022-05-10 2022-05-10 5 Unive rsity of Connections Phone 00:00:00 00:00:00 [place] M edical Branch History SDOH Social 2022-05-10 2022-05-10 5 Unive rsity of Connections Living 00:00:00 00:00:00 [place] [facility] History SDOH 2022-05-10 2022-05-10 0 University o f Physical Activity 00:00:00 00:00:00 [facility] edical DPW Branch History SDAK 2022-05-10 2022-05-10 0 University o f Physical Activity 00:00:00 00:00:00 [facility] edical MPS Branch Exposure to 2022-04-29 2022-05-09 Not sure University of SARS-CoV-2 (event) 00:00:00 21:56:00 [place] [facility] Tobacco use and 2021-12-25 2021-12-25 User of Universit y of exposure 00:00:00 00:00:00 smokeless [place] [facility] tobacco Branch Alcohol intake 2021-12-18 2021-12-18 Ex-drinker Protestant 00:00:00 00:00:00 (finding) Hospital Sex Ass[birth year] At [birth year] Protestant 00:00:00 00:00:00 Hospital Smoking Status Start Date Stop Date Source Heavy Tobacco Smoker Jimmy ragland Smokes tobacco daily 2022-05-09 00:00:00 Univers ity of [place] [facility] Medications Ordered Filled Start Stop Current Ordering Indication Dosage Frequency Signature Comments Components Source Medication Medication Date Date Medication? Clinician (SIG) Name Name multivitami Yes 1{capsu Take 1 U nivers n capsule 2-28 le} capsule by ity of 12:12: mouth [place] 25 daily. Medical Branch multivitami Yes 1{capsu Take 1 U nivers n capsule 2-28 le} capsule by ity of 12:12: mouth [place] 25 daily. Medical Branch acetaminoph 2022- Yes [id number] 650mg Take 2 Univers en 325 mg 2-25 06-15 tablets by ity of tablet 00:00: 04:59 mouth [place] 00 :00 every 6 Medical ([facility] Branch hours for 14 days. polyethylen 2022- Yes [id number] 17g Take 1 Univers e glycol 2-25 06-15 Packet by ity o f 3350 17 00:00: 04:59 mouth in [place] gram powder 00 :00 the Medical morning Branch for 14 days. acetaminoph 2022- Yes [id number] 650mg Take 2 Univers en 325 mg 2-25 06-15 tablets by ity of tablet 00:00: 04:59 mouth [place] 00 :00 every 6 Medical ([facility] Branch hours for 14 days. polyethylen 2022- Yes [id number] 17g Take 1 Univers e glycol 2-25 06-15 Packet by ity o f 3350 17 00:00: 04:59 mouth in [place] gram powder 00 :00 the Medical morning Branch for 14 days. gabapentin 2022- Yes [id number] 200mg Take 2 Univers 100 mg 2-28 -08 capsules ity of capsule 00:00: 05:59 by mouth [place] 00 :00 in the Medical morning Branch and 2 capsules at noon and 2 capsules in the evening. Do all this for 7 days. acetaminoph 2022- Yes [id number] 650mg Take 2 Univers en 325 mg 2-28 -08 tablets by ity of tablet 00:00: 05:59 mouth [place] 00 :00 every 6 Medical (six) Branch hours as needed (pain) for up to 7 days. gabapentin 2022- Yes [id number] 200mg Take 2 Univers 100 mg 05-28-08 capsules ity of capsule 00:00: 05:59 by mouth [place] 00 :00 in the Medical morning Branch and 2 capsules at noon and 2 capsules in the evening. Do all this for 7 days. acetaminoph 2022- Yes [id number] 650mg Take 2 Univers en 325 mg 05-28-08 tablets by ity of tablet 00:00: 05:59 mouth [place] 00 :00 every 6 Medical (six) Branch hours as needed (pain) for up to 7 days. heparin Yes 2000U PRN - SEE Univ ers 1,000 - INSTRUCTIO ity of unit/mL (10 20:25: NS, [place] mL) - 35 Starting Medical dialysis on [facility] catheter 05/27/22 at care 1425, Until Discontinu ed, Routine
For Priming of Ports:&nbs p; &n bsp; After initial saline flush, prime each port with heparin according to the priming volume listed on each catheter port for catheter lock.
glycerin/mi 2022- No 225mL 225 mL, U nivers neral oil 05-26- Rectal, ity of (AGLO 02:00: 02:44 ONCE, 1 [place] ENEMA) 00 :00 dose, On Medical ([facility] ) Enem 225 05/25/22 at mL 2000, Routine heparin 2022- No 2000U 2,000 Univers 1,000 2-25 02-25 Units, ity of unit/mL 23:00: 22:05 Slow IV [place] injection 00 :00 Push, Medical 2,000 Units ONCE, 1 Branc h dose, On 05/25/22 at 1700, Routine NaCl 0.9% 2022- No 500mL at 999 [facility] ers (NS) bolus 2-25 02-26 mL/hr, 500 it y of infusion 22:45: 01:33 mL, IV [place] 500 mL 00 :00 Piggyback, Medical ONCE, 1 Branch dose, On 05/25/22 at 1645, STAT polyethylen Yes 17g 17 g, Unive rs e glycol - Oral, ity of 3350 powder 22:00: DAILY, [place] 17 g 00 First dose Medical on [facility] Branch 05/25/22 at 1600, Until Discontinu ed, Routine bisacodyL Yes 10mg 10 mg, Univer s (DULCOLAX) 05-25 Rectal, ity of suppository 21:52: QHSPRN, [place] as 10 mg 41 Starting Medical on Sat Branch 05/25/22 at 1552, Until Discontinu ed, Routine, Constipati on insulin Yes 2U 2 Units, Univer s lispro 05-25 Subcutaneo ity of (human) 14:42: us, PRN - [place] (HumaLOG 01 SEE Medical U-100) INSTRUCTIO Branch injection 2 NS, 1 Units dose, Starting on 05/25/22 at 0842, Until Discontinu ed, Routine, For blood glucose > 300 mg/dL dextrose Yes 125mL 125 mL, Unive rs 10% (D10W) 05-25 Intravenou ity of bolus 14:42: s, PRN - [place] infusion 01 SEE Medical 125 mL INSTRUCTIO Branch NS, Administer over 60 Minutes, Other, Administer once if after insulin administra tion, blood glucose is 71-150 mg/dL and patient is unable to eat a 15 g carb snack, Starting on 05/25/22 at 0842, For 1 dose
If patient is able to eat/swallo w, give 15 gram carb snack - Sprite or cranberry juice.
NaCl 0.9% 2022- No 5mL 5 mL, Slow U nivers (NS) 2-25 02-25 IV Push, ity of injection 5 14:15: 14:15 ONCE, 1 [place] mL 00 :00 dose, On Medical Sat Branch 05/25/22 at 0815, Routine heparin 0 Yes 2000U PRN - SEE Univ ers 1,000 -25 INSTRUCTIO ity of unit/mL (10 14:08: NS, [place] mL) - 36 Starting Medical dialysis on [facility] Branch catheter 05/25/22 at care 0808, Until Discontinu ed, Routine
For Priming of Ports:&nbs p; &n bsp; After initial saline flush, prime each port with heparin according to the priming volume listed on each catheter port for catheter lock.
calcium 2022-0 Yes 2g 2 g, IV Univers gluconate 2 2-25 Infusion, ity of g in NaCl 12:41: at 200 [place] 100 mL 50 mL/hr Medical (ISO-OSM) Administer Bran ch RTU IV over 30 infusion 2 Minutes, g PRN - SEE INSTRUCTIO NS, Starting on 05/25/22 at 0641, Until Discontinu ed, STAT, Potassium greater than or equal to 6.0 mEq/L with our without EKG changes glucagon 2022-0 Yes 1mg 1 mg, Univers (GLUCAGEN 2-25 Intramuscu ity of DIAGNOSTIC 12:41: lar, PRN, [place] KIT) 32 Starting Medical injection [address] [facility] Branch mg 05/25/22 at 0641, Until Discontinu ed, PHIL, Blood Glucose < or = 70 mg/dL and patient is NPO, unable to swallow or has mental changes. dextrose 50 2022-0 Yes 25mL 25 mL, Univ ers % in water 2-25 Slow IV ity of (D50W) 12:41: Push, PRN, [place] injection 32 Starting Medica l [address] Branch 05/25/22 at 0641, Until Discontinu ed, PHLI, Blood Glucose < or = 70 mg/dL and patient is NPO, unable to swallow or has mental status changes. docusate 2022-0 Yes 100mg 100 mg, Unive rs (COLACE) 2-25 Oral, TID, ity o f capsule 100 02:00: First dose [place] mg 00 (after Medical last Branch modificati on) on Fri05/24/22 at 2000, Until Discontinu ed, Routine mineral oil 2022-0 2023- No 30mL 30 mL, Uni vers (MINERAL 05-24-24 Oral, ity of OIL EXTRA 22:45: 23:52 ONCE, 1 [place] HEAVY) oral 00 :00 dose, On Medi ellyn liquid 30 Fri Branch mL 05/24/22 at 1645, Routine metoclopram 2022-0 Yes 10mg 10 mg, Univ ers merle HCl 2-24 Slow IV ity of (REGLAN) 22:15: Push, Q6H, [place] as injection 00 First dose Medi ellyn 10 mg (after Branch last modificati on) on Fri05/24/22 at 1615, Until Discontinu ed, Routine acetaminoph 2023-0 Yes 650mg 650 mg, Un irma en 2-23 Oral, Q6H, ity of (TYLENOL) 18:00: First dose [place] tablet 650 00 on [facility] Medical 05/23/22 at [place] 1200, Until Discontinu ed, Routine acetaminoph 2023-0 Yes 650mg 650 mg, Un irma en 2-23 Oral, Q6H, ity of (TYLENOL) 18:00: First dose [place] tablet 650 00 on [facility] Medical 05/23/22 at Branch 1200, Until Discontinu ed, Routine acetaminoph 2023-0 Yes 650mg 650 mg, Un irma en 2-23 Oral, Q6H, ity of (TYLENOL) 18:00: First dose [place] tablet 650 00 on [facility] Medical 05/23/22 at Branch 1200, Until Discontinu ed, Routine sennosides 2023-0 Yes 8.6mg 8.6 mg, Uni vers (SENOKOT) 2-23 Oral, ity of tablet 8.6 15:00: DAILY, [place] mg 00 First dose Medical on [facility] 05/23/22 at 0900, Until Discontinu ed, Routine sennosides 2023-0 Yes 8.6mg 8.6 mg, Uni vers (SENOKOT) 2-23 Oral, ity of tablet 8.6 15:00: DAILY, [place] mg 00 First dose Medical on [facility] 05/23/22 at 0900, Until Discontinu ed, Routine sennosides 2023-0 Yes 8.6mg 8.6 mg, Uni vers (SENOKOT) 2-23 Oral, ity of tablet 8.6 15:00: DAILY, [place] mg 00 First dose Medical on [facility] 05/23/22 at 0900, Until Discontinu ed, Routine levalbutero 2023-0 Yes .31mg 0.31 mg, U nivers l (XOPENEX) 2-23 Inhalation it y of nebulizer 14:00: , TID, [place] solution 00 First dose Medic al 0.31 mg on [place] Branch 05/23/22 at 0800, Until Discontinu ed, Routine levalbutero 0 Yes .31mg 0.31 mg, U nivers l (XOPENEX) 05-23 Inhalation it y of nebulizer 14:00: , TID, [place] solution 00 First dose Medic al 0.31 mg on [place] Branch 05/23/22 at 0800, Until Discontinu ed, Routine levalbutero 2022-0 Yes .31mg 0.31 mg, U nivers l (XOPENEX) 05-23 Inhalation it y of nebulizer 14:00: , TID, [place] solution 00 First dose Medic al 0.31 mg on [place] Branch 05/23/22 at 0800, Until Discontinu ed, Routine NaCl 0.9% 2022- No 5mL 5 mL, Slow U nivers (NS) 05-23 IV Push, ity of injection 5 14:00: 14:00 ONCE, 1 [place] mL 00 :00 dose, On Medical [place] Branch 05/23/22 at 0800, Routine heparin 2022-0 Yes 2000U PRN - SEE [facility] ers 1,000 05-23 INSTRUCTIO ity of unit/mL (10 13:45: NS, [place] mL) - Starting Medical dialysis on [place] Branch catheter 05/23/22 at care 0745, Until Discontinu ed, Routine
For Priming of Ports:&nbs p; &n bsp; After initial saline flush, prime each port with heparin according to the priming volume listed on each catheter port for catheter lock.
heparin 2022-0 Yes 2000U PRN - SEE [facility] ers 1,000 05-23 INSTRUCTIO ity of unit/mL (10 13:45: NS, [place] mL) - Starting Medical dialysis on [place] Branch catheter 05/23/22 at care 0745, Until Discontinu ed, Routine
For Priming of Ports:&nbs p; &n bsp; After initial saline flush, prime each port with heparin according to the priming volume listed on each catheter port for catheter lock.
heparin 2022-0 Yes 2000U PRN - SEE [facility] ers 1,000 223 INSTRUCTIO ity of unit/mL (10 13:45: NS, [place] mL) - 08 Starting Medical dialysis on [place] Branch catheter 05/23/22 at care 0745, Until Discontinu ed, Routine
For Priming of Ports:&nbs p; &n bsp; After initial saline flush, prime each port with heparin according to the priming volume listed on each catheter port for catheter lock.
morpHINE Yes Patient Uni vers mg/30 mL 05-23 Bolus ity of (fixed 13:15: Dose: 1.5 [place] dose) [employer] EX[employer]ER 00 mg
Lock Medi ellyn injection out Branch Interval: 6 Minutes
Basal Rate: 0 mg/hr<BR&g t;Four Hour Dose Limit: 32 mg
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
Lock Medi ellyn injection out Branch Interval: 6 Minutes
Basal Rate: 0 mg/hr<BR&g t;Four Hour Dose Limit: 32 mg
Intr avenous, 30 mL, CONTINUOUS , Starting on Tess 05/23/22 at 0715, Until Discontinu ed morpHINE 30 0 2022- No Patient Un irma mg/30 mL 05-23 Bolus ity of (fixed 13:15: 13:33 Dose: 1.5 [place] dose) [employer]S EXPEDITER 00 :11 mg
Lock Medi ellyn injection out Branch Interval: 6 Minutes
Basal Rate: 0 mg/hr<BR&g t;Four Hour Dose Limit: 32 mg
Intr avenous, 30 mL, CONTINUOUS , Starting on [place] 05/23/22 at 0715, Until 05/25/22 at 0733 traMADoL Yes 50mg [Order 1 Unive rs (ULTRAM) 05-23 Start] ity of tablet 50 13:06: Name: Judy mg 19 traMADoL Medical (ULTRAM) Branch tablet 50 mg Signed Summary: 50 mg, Oral, Q6HPRN, Starting on Tess 05/23/22 at 0706, Until Discontinu ed, Routine, Pain (scale 4-6) [Order 1 End] [Order 2 Start] Name: traMADoL (ULTRAM) tablet 100 mg Signed Summary: 100 mg, Oral, Q6HPRN, Starting on Fri05/23/22 at 0706, Until Discontinu ed, Routine, Pain (scale 7-10) [Order 2 End] traMADoL 0 Yes 50mg [Order 1 Unive rs (ULTRAM) 05-23 Start] ity of tablet 50 13:06: Name: Judy posadas 19 traMADoL Medical (ULTRAM) Branch tablet 50 mg Signed Summary: 50 mg, Oral, Q6HPRN, Starting on Fri05/23/22 at 0706, Until Discontinu ed, Routine, Pain (scale 4-6) [Order 1 End] [Order 2 Start] Name: traMADoL (ULTRAM) tablet 100 mg Signed Summary: 100 mg, Oral, Q6HPRN, Starting on Fri05/23/22 at 0706, Until Discontinu ed, Routine, Pain (scale 7-10) [Order 2 End] traMADoL Yes 50mg [Order 1 Unive rs (ULTRAM) 05-23 Start] ity of tablet 50 13:06: Name: Judy posadas 19 traMADoL Medical (ULTRAM) Branch tablet 50 mg Signed Summary: 50 mg, Oral, Q6HPRN, Starting on Fri05/23/22 at 0706, Until Discontinu ed, Routine, Pain (scale 4-6) [Order 1 End] [Order 2 Start] Name: traMADoL (ULTRAM) tablet 100 mg Signed Summary: 100 mg, Oral, Q6HPRN, Starting on Fri05/23/22 at 0706, Until Discontinu ed, Routine, Pain (scale 7-10) [Order 2 End] acetaminoph 0 2022- No 1000mg 1,000 mg, Univers en ADULT 05-23 IV ity of ([facility]) 04:00: 13:06 Infusion, [place] injection 00 :56 at 400 Medical 1,000 mg mL/hr Branch Administer over 15 Minutes, Q8H, 3 doses, First dose on Fri05/22/22 at 2200, Last dose on Fri05/23/22 at 1400, Routine
Indicatio n: Perioperat vivien Patient gabapentin 2023-0 Yes 200mg 200 mg, Uni vers (NEURONTIN) 2-23 Oral, TID, it y of capsule 200 02:00: First dose [place] mg 00 on Fri Medical 05/22/22 at [place] 2000, Until Discontinu ed, Routine gabapentin 2023-0 Yes 200mg 200 mg, Uni vers (NEURONTIN) 2-23 Oral, TID, it y of capsule 200 02:00: First dose [place] mg 00 on Fri05/22/22 at [place] 2000, Until Discontinu ed, Routine gabapentin 2023-0 Yes 200mg 200 mg, Uni vers (NEURONTIN) 2-23 Oral, TID, it y of capsule 200 02:00: First dose [place] mg 00 on Fri05/22/22 at [place] 2000, Until Discontinu ed, Routine methocarbam 2023-0 Yes 500mg 500 mg, Un irma oL 2-22 Oral, QID, ity of (ROBAXIN) 22:00: First dose [place] tablet 500 00 on Fri Medical mg 05/22/22 at Branch 1600, Until Discontinu ed, Routine methocarbam 2023-0 Yes 500mg 500 mg, Un irma oL 2-22 Oral, QID, ity of (ROBAXIN) 22:00: First dose [place] tablet 500 00 on Fri Medical mg 05/22/22 at Branch 1600, Until Discontinu ed, Routine methocarbam 2023-0 Yes 500mg 500 mg, Un irma oL 2-22 Oral, QID, ity of (ROBAXIN) 22:00: First dose [place] tablet 500 00 on Fri Medical mg 05/22/22 at Branch 1600, Until Discontinu ed, Routine lidocaine 2023-0 2023- No 1{patch 1 Patch, Univers (LIDODERM) 05-22 } Topical, ity of 5 % (700 21:00: 09:28 Administer [place] mg/patch) 00 :00 over 12 Medical patch 1 Hours, Branch Patch ONCE, 1 dose, On Fri05/22/22 at 1500, Routine naloxone 2023-0 Yes .1mg 0.1 mg, Univer s (NARCAN) 2-22 Slow IV ity of injection 20:00: Push, [place] 0.1 mg 05 SEE-INSTRU Medical CTIONS, Branch Starting on Fri05/22/22 at 1400, Until Discontinu ed, Routine naloxone 2022-0 Yes .1mg 0.1 mg, Univer s (NARCAN) 05-22 Slow IV ity of injection 20:00: Push, [place] 0.1 mg 05 SEE-INSTRU Medical CTIONS, Branch Starting on Fri05/22/22 at 1400, Until Discontinu ed, Routine naloxone 2022-0 Yes .1mg 0.1 mg, Univer s (NARCAN) 05-22 Slow IV ity of injection 20:00: Push, [place] 0.1 mg 05 SEE-INSTRU Medical CTIONS, Branch Starting on Fri05/22/22 at 1400, Until Discontinu ed, Routine lactated 2022- No 1000mL at 75 [facility] rs ringers IV 05-22 mL/hr, ity of infusion 20:00: 23:02 1,000 mL, [place] as 1,000 mL 00 :50 IV Medical Infusion, Branch CONTINUOUS , Starting on Fri05/22/22 at 1400, Until Fri05/22/22 at 1702, Routine, PACU bupivacaine 2022- No PRN, [facility] (preserv 05-22 Starting ity of free) 17:16: 19:46 on Fri (SENSORCAIN 00 :18 05/22/[address] [facility]) 0.25 1116, Branch % (2.5 Intra-op mg/mL) 20 mL, bupivacaine liposome (PF) (EXPAREL (PF)) 1.3 % (13.3 mg/mL) 266 mg bupivacaine 2022- No PRN, [facility] (preserv 05-22 Starting ity of free) 17:16: 19:46 on Fri (SENSORCAIN 00 :18 05/22/[address] [facility]) 0.25 1116, Branch % (2.5 Intra-op mg/mL) 20 mL, bupivacaine liposome (PF) (EXPAREL (PF)) 1.3 % (13.3 mg/mL) 266 mg HYDROcodone 2022- No 1{tbl} 1 tablet, Univers -acetaminop 2-21 02-22 Oral, ity of hen (NORCO 16:30: 23:02 Q6HPRN, [place] as 5) 5-325 mg 17 :50 Starting Medi ellyn tablet 1 on [facility] Branch tablet 05/21/22 at 1030, Until 05/22/22 at 1702, Routine, Pain (scale 4-6), Pain (scale 7-10) NaCl 0.9% 2022- No 5mL 5 mL, Slow U nivers (NS) 05-21 IV Push, ity of injection 5 13:15: 13:15 ONCE, 1 [place] mL 00 :00 dose, On Medical Tue Branch 05/21/22 at 0715, Routine heparin Yes 2000U PRN - SEE [facility] ers 1,000 - INSTRUCTIO ity of unit/mL ( 13:09: NS, [place] mL) - Starting Medical dialysis on [facility] Branch catheter 05/21/22 at care 0709, Until Discontinu ed, Routine
For Priming of Ports:&nbs p; &n bsp; After initial saline flush, prime each port with heparin according to the priming volume listed on each catheter port for catheter lock.
heparin Yes 2000U PRN - SEE [facility] ers 1,000 - INSTRUCTIO ity of unit/mL (01 10:09: NS, [place] mL) - Starting Medical dialysis on [facility] Branch catheter 05/21/22 at care 0709, Until Discontinu ed, Routine
For Priming of Ports:&nbs p; &n bsp; After initial saline flush, prime each port with heparin according to the priming volume listed on each catheter port for catheter lock.
heparin 2022-0 Yes 2000U PRN - SEE [facility] ers 1,000 - INSTRUCTIO ity of unit/mL ( 13:09: NS, [place] mL) - Starting Medical dialysis on Tu Branch catheter 05/21/22 at care 0709, Until Discontinu ed, Routine
For Priming of Ports:&nbs p; &n bsp; After initial saline flush, prime each port with heparin according to the priming volume listed on each catheter port for catheter lock.
traMADoL 2022- No 50mg 50 mg, Univer s (ULTRAM) 05-21- Oral, ity of tablet 50 03:01: 23:02 Q6HPRN, [place] mg 32 :50 Starting Medical on Fri05/20/22 at 2101, Until Fri05/22/22 at 1702, Routine, Pain (scale 4-6), Pain (scale 7-10) iopamidol 2022- No [id number] 70mL 70 mL, Univers (ISOVUE 05-20 02-20 Intravenou ity o f 370-500 mL) 17:45: 17:25 s, ONCE, 1 [place] injection 00 :00 dose, On Medica l 70 mL Fri [place] 05/20/22 at 1145, Routine lactated 2022- No 250mL at 999 Unive rs ringers IV 2- 02-20 mL/hr, 250 it y of infusion 07:15: 11:23 mL, [place] 250 mL 00 :00 Intravenou Medical s, ONCE, 1 Branch dose, On Fri05/20/22 at 0115, Routine midodrine Yes 2.5mg 2.5 mg, Univ ers (PROAMATINE 2-20 Oral, TID, it y of ) tablet 05:45: First dose [place] 2.5 mg 00 on [facility] 05/19/22 at Branch 2345, Until Discontinu ed, Routine midodrine Yes 2.5mg 2.5 mg, Univ ers (PROAMATINE 2-20 Oral, TID, it y of ) tablet 05:45: First dose [place] 2.5 mg 00 on [facility] 05/19/22 at Branch 2345, Until Discontinu ed, Routine midodrine Yes 2.5mg 2.5 mg, Univ ers (PROAMATINE 2-20 Oral, TID, it y of ) tablet 05:45: First dose [place] as 2.5 mg 00 on [facility] 05/19/22 at Branch 2345, Until Discontinu ed, Routine NaCl 0.9% 2022- No 250mL at 999 Univ ers (NS) bolus 2-20 02-20 mL/hr, 250 it y of infusion 01:45: 03:42 mL, IV [place] 250 mL 00 :00 Piggyback, Medical ONCE, 1 Branch dose, On [place] 05/19/22 at 1945, STAT traMADoL No 25mg 25 mg, Univer s (ULTRAM) 05-19 Oral, ity of tablet 25 22:00: 21:58 ONCE, 1 [place] mg 00 :00 dose, On Medical [facility] 05/19/22 at 1600, Routine lidocaine 2022- No 1{patch 1 Patch, Univers (LIDODERM) 05-19 } Topical, ity of 5 % (700 20:30: 08:05 Administer [place] mg/patch) 00 :00 over 12 Medical patch 1 Hours, Branch Patch ONCE, 1 dose, On [place] 05/19/22 at 1430, Routine heparin 2022-0 Yes 5000U 5,000 Univers (porcine) 2-19 Units, ity of injection 02:00: Subcutaneo [place] 5,000 Units 00 us, Q12H, Med ical First dose Branch on [facility] 05/18/22 at 1999, Until Discontinu ed, Routine heparin 2022-0 Yes 5000U 5,000 Univers (porcine) 2-19 Units, ity of injection 02:00: Subcutaneo [place] 5,000 Units 00 us, Q12H, Med ical First dose Branch on [facility] 05/18/22 at 2000, Until Discontinu ed, Routine heparin 2022-0 Yes 5000U 5,000 Univers (porcine) 2-19 Units, ity of injection 02:00: Subcutaneo [place] 5,000 Units 00 us, Q12H, Med ical First dose Branch on [facility] 05/18/22 at 1999, Until Discontinu ed, Routine NaCl 0.9% 2022- No 5mL 5 mL, Slow U nivers (NS) 05-18 IV Push, ity of injection 5 21:45: 01:02 ONCE, 1 [place] mL 00 :00 dose, On Medical [facility] 05/18/22 at 1545, Routine heparin 2022-0 2022- No 2000U PRN - SEE Uni vers 1,000 05-18 INSTRUCTIO ity of unit/mL (10 21:30: 13:14 NS, [place] mL) - 47 :47 Starting Medical dialysis on Sat Branch catheter 05/18/22 at care 1530, Until 05/21/22 at 0714, Routine
For Priming of Ports:&nbs p; &n bsp; After initial saline flush, prime each port with heparin according to the priming volume listed on each catheter port for catheter lock.
carvediloL 2022- No 12.5mg 12.5 mg, Univers (COREG) 05-18 Oral, BID ity of tablet 12.5 14:15: 17:54 MEALS, [place] mg 00 :02 First dose Medical (after [place] last modificati on) on Fri05/18/22 at 0815, Until Discontinu ed, Routine sevelamer 2022-0 Yes 1600mg 1,600 mg, U nivers (RENVELA) 2-17 Oral, TID ity o f tablet 14:00: MEALS, [place] 1,600 mg 00 First dose Medic al (after [place] last modificati on) on Fri05/17/22 at 0800, Until Discontinu ed sevelamer 2022-0 Yes 1600mg 1,600 mg, U nivers (RENVELA) 2-17 Oral, TID ity o f tablet 14:00: MEALS, [place] 1,600 mg 00 First dose Medic al (after [place] last modificati on) on Fri05/17/22 at 0800, Until Discontinu ed sevelamer 2022-0 Yes 1600mg 1,600 mg, U nivers (RENVELA) 2-17 Oral, TID ity o f tablet 14:00: MEALS, [place] 1,600 mg 00 First dose Medic al (after [place] last modificati on) on Fri05/17/22 at 0800, Until Discontinu ed amLODIPine 2022- No 5mg 5 mg, Unive rs (NORVASC) 05-17 Oral, Q24H ity of tablet 5 mg 12:00: 17:54 ABX, First [place] 00 :02 dose Medical (after [place] last modificati on) on Fri05/17/22 at 0600, Until Discontinu ed, Routine NaCl 0.9% 2022- No 5mL 5 mL, Slow U nivers (NS) 05-16 IV Push, ity of injection 5 21:45: 21:45 ONCE, 1 [place] mL 00 :00 dose, On Medical [place] Branch 05/16/22 at 1545, Routine heparin No 2000U PRN - SEE Uni vers 1,000 05-16 INSTRUCTIO ity of unit/mL (10 21:34: 13:14 NS, [place] mL) - 41 :47 Starting Medical dialysis on [facility] Branch catheter 05/16/22 at care 1534, Until 05/21/22 at 0714, Routine
For Priming of Ports:&nbs p; &n bsp; After initial saline flush, prime each port with heparin according to the priming volume listed on each catheter port for catheter lock.
iopamidol 2022- No [id number] 100mL 100 mL, Univers (ISOVUE 05-16 Intravenou ity o f 370-500 mL) 15:52: 15:52 s, ONCE, 1 [place] injection 00 :00 dose, On Medica l 100 mL [facility] Branch 05/16/22 at 1015, Routine iopamidol 2022- No [id number] 100mL 100 mL, Univers (ISOVUE 05-16 Intravenou ity o f 300-500 mL) 01:00: 01:00 s, ONCE, 1 [place] injection 00 :00 dose, On Medica l 100 mL [facility] Branch 05/15/22 at 1900, Routine lidocaine 2022- No PRN, Univers 1% (PF) 05-15 Starting ity of (XYLOCAINE) 22:50: 22:50 on Fri [place] injection 55 :55 05/15/22 at Medi ellyn 1650, Branch Until Fri05/15/22 at 1650, Routine FENTanyl PF 2022- No Slow IV Un irma (SUBLIMAZE 05-15 Push, PRN, it y of (PF)) 22:39: 23:24 Starting [place] injection 00 :34 on Fri Medical 05/15/22 at Branch 1639, Until 2/15/23 at 1724, Routine morpHINE (4 2022- No 4mg 4 mg, Slow Univers mg/mL) 05-14 IV Push, ity of injection 4 21:02: 23:14 Q6HPRN, [place] mg 13 :17 Starting Medical on [facility] Branch 05/14/22 at 1502, Until [place] 05/19/22 at 1714, Routine, Pain (scale 7-10) alteplase 2022- No [id number] 4mg 4 mg, U nivers (CATHFLO 05-14 INTRA-CATH ity of ACTIVASE) 16:45: 17:15 ETER, [place] injection 4 00 :00 ONCE, 1 Medic al mg dose, On Branch [facility] 05/14/22 at 1045, Routine heparin 2022- No 2000U PRN - SEE Uni vers 1,000 05-14 INSTRUCTIO ity of unit/mL (10 14:21: 13:14 NS, [place] mL) - 00 :47 Starting Medical dialysis on [facility] catheter 05/14/22 at care 0821, Until [facility] 05/21/22 at 0714, Routine
For Priming of Ports:&nbs p; &n bsp; After initial saline flush, prime each port with heparin according to the priming volume listed on each catheter port for catheter lock.
lidocaine 2022- No 30mL 30 mL, Unive rs 1% (PF) 05-13 Subcutaneo ity o f (XYLOCAINE) 14:45: 14:45 us, ONCE, injection 00 :00 1 dose, On Medi ellyn 30 mL [facility] 05/13/22 at 0845, Routine iopamidol 2022- No [id number] 70mL 70 mL, Univers (ISOVUE 05-12 4100 Intravenou ity o f 370-500 mL) 15:25: 14:25 s, ONCE, 1 [place] injection 00 :00 dose, On Medica l 70 mL [facility] 05/12/22 at 0945, Routine HYDROcodone 2022- No 1{tbl} 1 tablet, Univers -acetaminop 2-11 02-20 Oral, ity of hen (NORCO) 23:40: 00:56 Q4HPRN, [place] 10-325 mg 13 :30 Starting Medica l tablet [address] [facility] Branch tablet 05/11/22 at 1740, Until 05/19/22 at 1856, Routine, Pain (scale 4-6) NaCl 0.9% 2022- No 5mL 5 mL, Slow U nivers (NS) 05-11 IV Push, ity of injection 5 20:00: 20:31 ONCE, 1 [place] mL 00 :00 dose, On Medical Sat Branch 05/11/22 at 1400, Routine heparin 2022- No 2000U PRN - SEE Uni vers 1,000 05-11 INSTRUCTIO ity of unit/mL (10 19:47: 13:14 NS, [place] mL) - 06 :47 Starting Medical dialysis on [facility] catheter 05/11/22 at care 1347, Until 05/21/22 at 0714, Routine
For Priming of Ports:&nbs p; &n bsp; After initial saline flush, prime each port with heparin according to the priming volume listed on each catheter port for catheter lock.
hydrALAZINE 2022- No 20mg 20 mg, Uni vers (APRESOLINE 05-11 Oral, Q8H it y of ) tablet 20 18:15: 13:54 ABX, First [place] mg 00 :22 dose Medical (after Branch last modificati on) on [facility] 05/11/22 at 1215, Until Discontinu ed, Routine lisinopriL 2022- No 5mg 5 mg, Unive rs (PRINIVIL,Z 05-1116 Oral, ity of ESTRIL) 15:00: 13:54 DAILY, [place] tablet 5 mg 00 :22 First dose Me dical on [facility] Branch 05/11/22 at 0900, Until Discontinu ed, Routine atorvastati Yes 40mg 40 mg, Univ ers n (LIPITOR) 2-11 Enteral, ity of tablet 40 03:00: QHS, First [place] mg 00 dose on Medical Fri Branch 05/10/22 at 2100, Until Discontinu ed, Routine atorvastati Yes 40mg 40 mg, Univ ers n (LIPITOR) 2-11 Enteral, ity of tablet 40 03:00: QHS, First [place] mg 00 dose on Medical Fri Branch 05/10/22 at 2100, Until Discontinu ed, Routine atorvastati Yes 40mg 40 mg, Univ ers n (LIPITOR) 2-11 Enteral, ity of tablet 40 03:00: QHS, First [place] mg 00 dose on Medical Fri Branch 05/10/22 at 2100, Until Discontinu ed, Routine acetaminoph 2022- No 1{tbl} 1 tablet, Univers en-codeine 05-10-14 Oral, ity of (TYLENOL 15:05: 21:02 [id number], [place] #3) 300-30 56 :36 Starting Medic al mg tablet 1 on Fri Branch tablet 05/10/22 at 0905, Until 05/14/22 at 1502, Routine, Pain (scale 4-6) HYDROcodone 2022- No 1{tbl} 1 tablet, Univers -acetaminop 05-10- Oral, ity of hen (NORCO 15:05: 23:40 Q6HPRN, [place] 5) 5-325 mg 30 :32 Starting Medi ellyn tablet 1 on Fri Branch tablet 05/10/22 at 0905, Until 05/11/22 at 1740, Routine, Pain (scale 7-10) aspirin Yes 81mg 81 mg, Univers chewable 2-10 Oral, ity of tablet 81 15:00: DAILY, [place] mg 00 First dose Medical on Fri Branch 05/10/22 at 0900, Until Discontinu ed, Routine docusate Yes 100mg 100 mg, Unive rs (COLACE) 2-10 Oral, ity of capsule 100 15:00: DAILY, [place] mg 00 First dose Medical on Fri Branch 05/10/22 at 0900, Until Discontinu ed, Routine aspirin 0 Yes 81mg 81 mg, Univers chewable 2-10 Oral, ity of tablet 81 15:00: DAILY, [place] mg 00 First dose Medical on Fri Branch 05/10/22 at 0900, Until Discontinu ed, Routine docusate 2023-0 Yes 100mg 100 mg, Unive rs (COLACE) 2-10 Oral, ity of capsule 100 15:00: DAILY, [place] mg 00 First dose Medical on Fri [place] 05/10/22 at 0900, Until Discontinu ed, Routine aspirin 2022-0 Yes 81mg 81 mg, Univers chewable 2-10 Oral, ity of tablet 81 15:00: DAILY, [place] mg 00 First dose Medical on Fri [place] 05/10/22 at 0900, Until Discontinu ed, Routine docusate 2022-0 202- No 100mg 100 mg, Univ ers (COLACE) 2-24 Oral, ity of capsule 100 15:00: 21:56 DAILY, [place] mg 00 :47 First dose Medical on Fri [place] 05/10/22 at 0900, Until Discontinu ed, Routine famotidine 0 Yes 20mg 20 mg, Unive rs (PEPCID AC) 2-10 Oral, BID, it y of tablet 20 14:00: First dose [place] mg 00 on Fri [facility] 05/10/22 at Branch 0800, Until Discontinu ed, Routine famotidine 0 Yes 20mg 20 mg, Unive rs (PEPCID AC) 2-10 Oral, BID, it y of tablet 20 14:00: First dose [place] mg 00 on Fri [facility] 05/10/22 at Branch 0800, Until Discontinu ed, Routine famotidine 2022-0 Yes 20mg 20 mg, Unive rs (PEPCID AC) 2-10 Oral, BID, it y of tablet 20 14:00: First dose [place] mg 00 on Fri [facility] 05/10/22 at Branch 0800, Until Discontinu ed, Routine sevelamer 2022-0 2022- No 800mg 800 mg, Uni vers (RENVELA) 05-10-17 Oral, TID ity of tablet 800 14:00: 06:29 MEALS, [place] mg 00 :42 First dose Medical on Fri [place] 05/10/22 at 0800, Until Discontinu ed amLODIPine 2022-0 2022- No 10mg 10 mg, Univ ers (NORVASC) 2-17 Oral, Q24H ity of tablet 10 12:00: 06:31 ABX, First [place] mg 00 :26 dose Medical (after Branch last modificati on) on Fri05/10/22 at 0600, Until Discontinu ed, Routine hydrALAZINE 2022- No 10mg 10 mg, Uni vers (APRESOLINE 2-10 02-11 Oral, Q8H it y of ) tablet 10 10:15: 13:22 ABX, First [place] mg 00 :06 dose Medical (after Branch last modificati on) on Fri05/10/22 at 0415, Until Discontinu ed, Routine heparin 2022- No [id number] 1500U 1,500 Uni vers 1,000 2-10 02-10 Units, ity of unit/mL 08:30: 08:39 Slow IV [place] injection 00 :00 Push, Medical 1,500 Units DIALYSIS Bran ch ONCE - PT ROOM, 1 dose, On Fri05/10/22 at 0230, Routine heparin 2022-0 2022- No [id number] 1500U 1,500 Uni vers 1,000 2-10 -10 Units, ity of unit/mL 07:15: 07:18 Slow IV [place] injection 00 :00 Push, Medical 1,500 Units DIALYSIS Bran ch ONCE - PT ROOM, 1 dose, On Fri05/10/22 at 0115, Routine acetaminoph 2022- No 1{tbl} 1 tablet, Univers en-codeine 05-10-10 Oral, ity of (TYLENOL 06:22: 15:06 [id number], [place] #3) 300-30 43 :07 Starting Medic al mg tablet 1 on Fri Branch tablet 05/10/22 at 0022, Until Fri05/10/22 at 0906, Routine, Pain (scale 7-10) mupirocin 2022-0 Yes Nasal, Univer s (BACTROBAN 2-10 Q12H, For ity of NASAL OINT) 06:09: 5 days, [place] 2 % nasal 13 First dose Medi ellyn ointment conditiona Branc h l, Routine mupirocin 2022-0 Yes Nasal, Univer s (BACTROBAN 2-10 Q12H, For ity of NASAL OINT) 06:09: 5 days, [place] 2 % nasal 13 First dose Medi ellyn ointment conditiona Branc h l, Routine mupirocin Yes Nasal, Univer s (BACTROBAN 2-10 Q12H, For ity of NASAL OINT) 06:09: 5 days, [place] 2 % nasal 13 First dose Medi ellyn ointment conditiona Branc h l, Routine heparin 2022- No 2000U PRN - SEE Uni vers 1,000 05-10 INSTRUCTIO ity of unit/mL (10 06:09: 13:14 NS, [place] mL) - 11 :47 Starting Medical dialysis on Fri Branch catheter 05/10/22 at care 0009, Until 05/21/22 at 0714, Routine
For Priming of Ports:&nbs p; &n bsp; After initial saline flush, prime each port with heparin according to the priming volume listed on each catheter port for catheter lock.
lidocaine 2022- No 1{patch 1 Patch, Univers (LIDODERM) 05-10 } Topical, ity of 5 % (700 05:30: 16:51 Administer [place] mg/patch) 00 :00 over 12 Medical patch 1 Hours, Branch Patch ONCE, 1 dose, On Tess 05/09/22 at 2330, Routine carvediloL 2022- No 25mg 25 mg, Univ ers (COREG) 05-10 Oral, BID ity of tablet 25 04:45: 14:12 MEALS, [place] mg 00 :03 First dose Medical (after Branch last modificati on) on Tess 05/09/22 at 2245, Until Discontinu ed, Routine insulin Yes 2U 2 Units, Univer s lispro 2-10 Subcutaneo ity of (human) 02:48: us, PRN - [place] (HumaLOG 53 SEE Medical U-100) INSTRUCTIO Branch injection 2 NS, 1 Units dose, Starting on Tess 05/09/22 at 2048, Until Discontinu ed, Routine, For blood glucose > 300 mg/dL dextrose Yes 125mL 125 mL, Unive rs 10% (D10W) 2-10 Intravenou ity of bolus 02:48: s, PRN - [place] infusion 53 SEE Medical 125 mL INSTRUCTIO Branch NS, Administer over 60 Minutes, Other, Administer once if after insulin administra tion, blood glucose is 71-150 mg/dL and patient is unable to eat a 15 g carb snack, Starting on Tess 05/09/22 at 2047, For 1 dose
If patient is able to eat/swallo w, give 15 gram carb snack - Sprite or cranberry juice.
insulin 2022-0 Yes 2U 2 Units, Univer s lispro 2-10 Subcutaneo ity of (human) 02:48: us, PRN - [place] (HumaLOG 53 SEE Medical U-100) INSTRUCTIO Branch injection 2 NS, 1 Units dose, Starting on Tess 05/09/22 at 2047, Until Discontinu ed, Routine, For blood glucose > 300 mg/dL dextrose 2022-0 Yes 125mL 125 mL, Unive rs 10% (D10W) 2-10 Intravenou ity of bolus 02:48: s, PRN - [place] infusion 53 SEE Medical 125 mL INSTRUCTIO Branch NS, Administer over 60 Minutes, Other, Administer once if after insulin administra tion, blood glucose is 71-150 mg/dL and patient is unable to eat a 15 g carb snack, Starting on Tess 05/09/22 at 2047, For 1 dose
If patient is able to eat/swallo w, give 15 gram carb snack - Sprite or cranberry juice.
insulin 2022-0 Yes 2U 2 Units, Univer s lispro 2-10 Subcutaneo ity of (human) 02:48: us, PRN - [place] (HumaLOG 53 SEE Medical U-100) INSTRUCTIO Branch injection 2 NS, 1 Units dose, Starting on Tess 05/09/22 at 2047, Until Discontinu ed, Routine, For blood glucose > 300 mg/dL dextrose 2022-0 Yes 125mL 125 mL, Unive rs 10% (D10W) 2-10 Intravenou ity of bolus 02:48: s, PRN - [place] infusion 53 SEE Medical 125 mL INSTRUCTIO Branch NS, Administer over 60 Minutes, Other, Administer once if after insulin administra tion, blood glucose is 71-150 mg/dL and patient is unable to eat a 15 g carb snack, Starting on Tess 05/09/22 at 2047, For 1 dose
If patient is able to eat/swallo w, give 15 gram carb snack - Sprite or cranberry juice.
metoprolol 2022- No 50mg 50 mg, Univ ers tartrate 05-10 Oral, BID, ity of (LOPRESSOR) 02:00: 04:44 First dose [place] tablet 50 00 :31 on Tess Medical mg 05/09/22 at Branch 1999, Until Discontinu ed, Routine sodium No 30g 30 g, Univers polystyrene 05-10 Oral, ity of sulfonate 01:00: 01:13 ONCE, 1 [place] (KAYEXALATE 00 :00 dose, On [facility] ) 15 Tess 05/09/22 Branch gram/60 mL at 1900, suspension STAT 30 g insulin No .1U/kg 7.8 Units Un irma regular 05-10 (0.1 ity of human 01:00: 01:21 Units/kg [place] (HUMULIN R) 00 :00 ?78 kg), [facility] injection IV Push, [place] 7.8 Units ONCE, 1 dose, On Tess 05/09/22 at 1900, PHIL
In dication for insulin: Hyperkalem ia- Please use the Insulin Protocol for Hyperkalem ia order set dextrose 50 2022- No 50mL 50 mL, Uni vers % in water 05-10 Slow IV ity o f (D50W) 01:00: 01:14 Push, [place] injection 00 :00 ONCE, 1 Medical 50 mL dose, On Branch Tess 05/09/22 at 1900, PHIL albuterol 2022- No 15mg 15 mg, Unive rs (PROVENTIL) 05-10 Inhalation i ty of 2.5 mg /3 01:00: 01:21 , ONCE, 1 [place] mL (0.083 00 :00 dose, On Medica l %) Tess 05/09/22 Branch nebulizer at 1900, solution 15 STAT mg glucagon Yes 1mg 1 mg, Univers (GLUCAGEN 05-10 Intramuscu ity of DIAGNOSTIC 00:47: lar, PRN, [place] KIT) 27 Starting Medical injection 1 on [facility] Branch 05/09/22 at 1847, Until Discontinu ed, PHIL, Blood Glucose < or = 70 mg/dL and patient is NPO, unable to swallow or has mental changes. dextrose 50 3-0 Yes 25mL 25 mL, Univ ers % in water 2-10 Slow IV ity of (D50W) 00:47: Push, PRN, [place] injection 27 Starting Medica l 25 mL on [facility] 05/09/22 at 1847, Until Discontinu ed, PHIL, Blood Glucose < or = 70 mg/dL and patient is NPO, unable to swallow or has mental status changes. glucagon 2022-0 Yes 1mg 1 mg, Univers (GLUCAGEN 2-10 Intramuscu ity of DIAGNOSTIC 00:47: lar, PRN, [place] KIT) 27 Starting Medical injection 1 on [facility] 05/09/22 at 1847, Until Discontinu ed, PHIL, Blood Glucose < or = 70 mg/dL and patient is NPO, unable to swallow or has mental changes. dextrose 50 2022-0 Yes 25mL 25 mL, Univ ers % in water 2-10 Slow IV ity of (D50W) 00:47: Push, PRN, [place] injection 27 Starting Medica l 25 mL on [facility] 05/09/22 at 1847, Until Discontinu ed, PHIL, Blood Glucose < or = 70 mg/dL and patient is NPO, unable to swallow or has mental status changes. glucagon 2023-0 Yes 1mg 1 mg, Univers (GLUCAGEN 2-10 Intramuscu ity of DIAGNOSTIC 00:47: lar, PRN, [place] KIT) 27 Starting Medical injection 1 on [facility] 05/09/22 at 1847, Until Discontinu ed, PHIL, Blood Glucose < or = 70 mg/dL and patient is NPO, unable to swallow or has mental changes. dextrose 50 2023-0 Yes 25mL 25 mL, Univ ers % in water 2-10 Slow IV ity of (D50W) 00:47: Push, PRN, [place] injection 27 Starting Medica l 25 mL on [facility] 05/09/22 at 1847, Until Discontinu ed, PHIL, Blood Glucose < or = 70 mg/dL and patient is NPO, unable to swallow or has mental status changes. ondansetron No 4mg 4 mg, Slow Univers (ZOFRAN 05-10 IV Push, ity of (PF)) 00:15: 23:10 ONCE, 1 [place] injection 4 00 :00 dose, On Medi ellyn mg Tess 05/09/22 Branch at 1815, PHIL morpHINE (2 No 4mg 4 mg, Slow Univers mg/mL) 05-10 IV Push, ity of injection 4 00:15: 23:10 ONCE, 1 [place] mg 00 :00 dose, On Medical Tess 05/09/22 Branch at 1815, STAT hydralAZINE No 10mg 10 mg, Uni vers (APRESOLINE 05-09 Slow IV ity of ) injection 22:45: 23:40 Push, [place] 10 mg 00 :00 ONCE, 1 Medical dose, On Branch Tess 05/09/22 at 1645, PHIL multivitami Yes 1{capsu Take 1 U nivers n capsule 2-09 le} capsule by ity of 20:45: mouth [place] 28 daily. Medical Branch multivitami Yes 1{capsu Take 1 U nivers n capsule 2-09 le} capsule by ity of 20:45: mouth [place] 28 daily. Medical Branch multivitami Yes 1{capsu Take 1 U nivers n capsule 2-09 le} capsule by ity of 20:45: mouth [place] 28 daily. Medical Branch atorvastati 2021-03 Yes 20mg QD Take 1 Meth inderjit n (LIPITOR) 0-25 tablet (20 st 20 mg 14:11: mg total) [facility]osp[facility] tablet 15 by mouth l daily. Default OP ins ergocalcife 2021-03 Yes [id number] Q7D Take 1 Me thodi rol 0-25 [...] l mouth nightly. patiromer 2021-03 Yes 8.4g Q.[id number] Take 8.4 g Methodi calcium 0-25 [id number] by mouth [address] sorbitex 14:11: 3W [...] for l sleep. albuterol 2021-03 Yes 2.5mg Q.44260240 Take 2.5 Methodi sulfate 0-[id number] (PROVENTIL) 14:11: 3D nebulizati [...] 15 l packet amino 2021-03 Yes 30mL Q.[id number] Take 30 mL Methodi acids/prote 0-25 [id number] by mouth [address] in 14:11: 3D [...] Hospit a 15 l acetaminoph 2021-03 Yes [id number] 1{tbl} Q.5D Take 1 M ethodi en-codeine [...] daily. Default OP ins ergocalcife 2021-03 Yes [id number] Q7D Take 1 Me thodi rol 0-25 [...] l mouth nightly. patiromer 2021-03 Yes 8.4g Q.[id number] Take 8.4 g Methodi calcium 0-25 [id number] by mouth [address] sorbitex 14:11: 3W [...] for l sleep. albuterol 2021-03 Yes 2.5mg Q.[id number] Take 2.5 Methodi sulfate 0-[id number] (PROVENTIL) 14:11: 3D nebulizati [...] 15 l packet amino 2021-03 Yes 30mL Q.[id number] Take 30 mL Methodi acids/prote 0-25 [id number] by mouth [address] in 14:11: 3D [...] Hospit a 15 l acetaminoph 2021-03 Yes 1{tbl} Q.5D Take 1 M ethodi en-codeine [...] 2021-03 Yes 20mg QD Take 1 Meth indrejit n (LIPITOR) 0-25 tablet (20 st 20 mg 14:11: mg total) Hospita tablet 15 by mouth l daily. Default OP ins ergocalcife 2021-03 Yes [id number] Q7D Take 1 Me thodi rol 0-25 [...] l mouth nightly. patiromer 2021-03 Yes 8.4g Q.[id number] Take 8.4 g [facility] calcium 0-25 [id number] by mouth [address] sorbitex 14:11: 3W [...] for l sleep. albuterol 2021-03 Yes 2.5mg Q.[id number] Take 2.5 [facility] sulfate 0-[id number] (PROVENTIL) 14:11: 3D nebulizati [...] 15 l packet amino 2021-03 Yes 30mL Q.[id number] Take 30 mL [facility] acids/prote 0-25 [id number] by mouth [address] in 14:11: 3D [...] Hospit a 15 l acetaminoph 2021-03 Yes [id number] 1{tbl} Q.5D Take 1 M ethodi en-codeine [...] daily. Default OP ins ergocalcife 2021-03 Yes [id number] Q7D Take 1 Me thodi rol 0-25 [...] l mouth nightly. patiromer 2021-03 Yes 8.4g Q.02800603 Take 8.4 g [facility] calcium 0-25 [id number] by mouth [address] sorbitex 14:11: 3W [...] for l sleep. albuterol 2021-03 Yes 2.5mg Q.[id number] Take 2.5 [facility] sulfate 0-[id number] (PROVENTIL) 14:11: 3D nebulizati [...] 15 l packet amino 2021-03 Yes 30mL Q.[id number] Take 30 mL [facility] acids/prote 0-25 [id number] by mouth [address] in 14:11: 3D [...] Hospit a 15 l acetaminoph 2021-03 Yes [id number] 1{tbl} Q.5D Take 1 M ethodi en-codeine [...] daily. Default OP ins ergocalcife 2021-03 Yes [id number] Q7D Take 1 Me thodi rol 0-25 [...] l mouth nightly. patiromer 2021-03 Yes 8.4g Q.95275163 Take 8.4 g [facility] calcium 0-25 [id number] by mouth [address] sorbitex 14:11: 3W [...] for l sleep. albuterol 2021-03 Yes 2.5mg Q.38272843 Take 2.5 [facility] sulfate 0-[id number] (PROVENTIL) 14:11: 3D nebulizati [...] 15 l packet amino 2021-03 Yes 30mL Q.[id number] Take 30 mL [facility] acids/prote 0-25 [id number] by mouth [address] in 14:11: 3D [...] Hospit a 15 l acetaminoph 2021-03 Yes [id number] 1{tbl} Q.5D Take 1 M ethodi en-codeine [...] daily. Default OP ins ergocalcife 2021-03 Yes [id number] Q7D Take 1 Me thodi rol 0-25 [...] l mouth nightly. patiromer 2021-03 Yes 8.4g Q.36937151 Take 8.4 g [facility] calcium 0-25 [id number] by mouth [address] sorbitex 14:11: 3W [...] for l sleep. albuterol 2021-03 Yes 2.5mg Q.50501392 Take 2.5 [facility] sulfate 0-[id number] (PROVENTIL) 14:11: 3D nebulizati [...] 15 l packet amino 2021-03 Yes 30mL Q.[id number] Take 30 mL [facility] acids/prote 0-25 [id number] by mouth [address] in 14:11: 3D [...] Hospit a 15 l acetaminoph 2021-03 Yes 1{tbl} Q.5D Take 1 M ethodi en-codeine [...] daily. Default OP ins ergocalcife 2021-03 Yes [id number] Q7D Take 1 Me thodi rol 0-25 [...] l mouth nightly. patiromer 2021-03 Yes 8.4g Q.09894712 Take 8.4 g [facility] calcium 0-25 [id number] by mouth [address] sorbitex 14:11: 3W [...] for l sleep. albuterol 2021-03 Yes 2.5mg Q.26360619 Take 2.5 [facility] sulfate 0-[id number] (PROVENTIL) 14:11: 3D nebulizati [...] 15 l packet amino 2021-03 Yes 30mL Q.81700034 Take 30 mL [facility] acids/prote 0-25 [id number] [address] mouth [address] in 14:11: 3D [...] Hospit a 15 l acetaminoph 2021-03 Yes 1{tbl} Q.5D Take 1 M ethodi en-codeine [...] H ospita 15 by mouth l daily. multivitami Yes 1{capsu Take 1 U nivers n capsule 9- le} capsule by ity of 13:33: mouth [place] 35 daily. [facility] multivitami Yes 1{capsu Take 1 U nivers n capsule 9 le} capsule by ity of 13:33: mouth [place] 35 daily. [facility] multivitami Yes 1{capsu Take 1 U nivers n capsule 12-25 le} capsule by ity of 13:33: mouth [place] 35 daily. [facility] clonIDINE 2021- No .2mg Q7D Place 1 Meth inderjit (CATAPRES-T 9-27 10-28 patch (0.2 s t TS) 0.2 00:00: 04:59 mg total) Hosp carly mg/24 hr 00 :00 on the l skin once a week for 30 days. clonIDINE 2021- No .2mg Q7D Place 1 Meth inderjit (CATAPRES-T 9-27 10-28 patch (0.2 s t TS) 0.2 00:00: 04:59 mg total) Hosp carly mg/24 hr 00 :00 on the l skin once a week for 30 days. clonIDINE 2021- No .2mg Q7D Place 1 Meth inderjit (CATAPRES-T 9-27 10-28 patch (0.2 s t TS) 0.2 00:00: 04:59 mg total) Hosp carly mg/24 hr 00 :00 on the l skin once a week for 30 days. clonIDINE 2021- No .2mg Q7D Place 1 Meth inderjit (CATAPRES-T 9-27 10-28 patch (0.2 s t TS) 0.2 00:00: 04:59 mg total) Hosp carly mg/24 hr 00 :00 on the l skin once a week for 30 days. clonIDINE 2021- No .2mg Q7D Place 1 Meth inderjit (CATAPRES-T 9-27 10-28 patch (0.2 s t TS) 0.2 00:00: 04:59 mg total) Hosp carly mg/24 hr 00 :00 on the l skin once a week for 30 days. clonIDINE 202- No .2mg Q7D Place 1 Meth inderjit (CATAPRES-T 9-27 10-28 patch (0.2 s t TS) 0.2 00:00: 04:59 mg total) Hosp carly mg/24 hr 00 :00 on the l skin once a week for 30 days. clonIDINE 2021-0 2022- No .2mg Q7D Place 1 Meth inderjit (CATAPRES-T 12-25 10-28 patch (0.2 s t TS) 0.2 00:00: 04:59 mg total) Hosp carly mg/24 hr 00 :00 on the l skin once a week for 30 days. clonIDINE 2021-0 2022- No .2mg Q7D Place 1 Meth inderjit (CATAPRES-T 12-25- patch (0.2 s t TS) 0.2 00:00: 04:59 mg total) Hosp carly mg/24 hr 00 :00 on the l skin once a week for 30 days. [place] [id number] 1{tbl} Q.5D Take 1 M ethodi en-codeine -[address] (TYLENOL 20:55: mouth 2 Hospit a WITH 01 (two) l CODEINE #3) times a 300-30 mg day as per tablet needed for moderate pain .acute pain. ARIPiprazol 0 Yes 5mg QD Take 1 Meth inderjit e (ABILIFY) -21 tablet (5 st 5 MG tablet 20:55: mg total) H ospita 01 by mouth l daily. atorvastati 0 Yes 20mg QD Take 1 Meth inderjit n (LIPITOR) -21 tablet (20 st 20 mg 20:55: mg total) Hospita tablet 01 by mouth l daily. Default OP ins ergocalcife 0 Yes [id number] Q7D Take 1 Me thodi rol 9-[address] (VITAMIN 20:55: (50,000 Hospit a D2) 50,000 01 Units l unit total) by capsule mouth once a week. ferrous 0 Yes 325mg Q.5D Take 1 [facility] sulfate 325 -[address] (65 FE) MG 20:55: (325 mg Hosp carly tablet 01 total) by l mouth 2 (two) times a day. fluticasone 0 Yes 50ug QD 1 spray Met hodi [...] acacia 01 by mouth l daily. sertraline 0 Yes 100mg QD Take 1 Meth inderjit (ZOLOFT) 12-[address] 100 MG 20:55: (100 mg Hospita tablet 01 total) by l mouth nightly. patiromer Yes 8.4g Q.74465774 Take 8.4 g [facility] calcium 12-19 [id number] by mouth [address] sorbitex 20:55: 3W (three) Hospit a ([place]) 01 times a l 8.4 gram week. powder in Every packet Tue,Tess,Sa packet t,to be given on non dialysis days. aspirin 0 Yes 81mg QD Take 1 [facility] (ECOTRIN) 12-19 tablet (81 st 81 MG 20:55: mg total) Hospita enteric 01 by mouth l coated daily. tablet calcium [...] Hold for SBP<120 or HR<60 sodium 2021-0 2021- No 5g Q2D Take 5 g [facility] i zirconium 12-[address] cyclosilica 20:55: 00:00 every Hosp carly te 01 :00 other day. l (Lokelma) 5 Give odd gram powder days in packet Sun,Fri, packet u,Sat calcium 2-0 2022- No 667mg QD Take 1 Method i acetate,aure 12-[address] sphat bind, 20:55: 00:00 (667 mg Ho spita (PHOSLO) 01 :00 total) by l 667 mg mouth capsule nightly. metoprolol 2-0 2022- No 100mg Q12H Take 1 Met hodi tartrate 12-[address] (LOPRESSOR) 20:55: 00:00 (100 mg Ho spita 100 mg 01 :00 total) by l tablet mouth every 12 (twelve) hours. Hold for SBP<120 or HR<60 sodium 2021-0 2022- No 5g Q2D Take 5 g [facility] i zirconium 12-[address] cyclosilica 20:55: 00:00 every Hosp carly te 01 :00 other day. l (Lokelma) 5 Give odd gram powder days in packet Fri,Fri, packet u,Sat calcium 2021-0 2022- No 667mg QD Take 1 [facility] i acetate,aure 12-[address] sphat bind, 20:55: 00:00 (667 mg Ho spita (PHOSLO) 01 :00 total) by l 667 mg mouth capsule nightly. metoprolol 2-0 2022- No 100mg Q12H Take 1 Met hodi tartrate 12-[address] (LOPRESSOR) 20:55: 00:00 (100 mg Ho spita 100 mg 01 :00 total) by l tablet mouth every 12 (twelve) hours. Hold for SBP<120 or HR<60 sodium 2022-0 2022- No 5g Q2D Take 5 g [facility] i zirconium 12-[address] cyclosilica 20:55: 00:00 every Hosp carly te 01 :00 other day. l (Lokelma) 5 Give odd gram powder days in packet Sun,Fri, packet u,Sat calcium 2022-0 2022- No 667mg QD Take 1 Method [...] Give odd gram powder days in packet Sun,Fri, packet u,Sat calcium 2021-0 2022- No 667mg [...] Hold for SBP<120 or HR<60 sodium 2021-0 2022- No 5g Q2D Take 5 g [facility] i zirconium 12-[address] cyclosilica 20:55: 00:00 every Hosp carly te 01 :00 other day. l (Lokelma) 5 Give odd gram powder days in packet Sun,e, packet u,Sat calcium 2021-0 2022- No 667mg QD Take 1 Method i acetate,aure 12-19- capsule st sphat bind, 20:55: 00:00 (667 mg Ho spita (PHOSLO) 01 :00 total) by l 667 mg mouth capsule nightly. metoprolol 2022-0 2022- No 100mg Q12H Take 1 Met hodi tartrate 9-21 09-[address] (LOPRESSOR) 20:55: 00:00 (100 mg Ho spita 100 mg 01 :00 total) by l tablet mouth every 12 (twelve) hours. Hold for SBP<120 or HR<60 sodium 2022-0 2022- No 5g Q2D Take 5 g [facility] i zirconium 12-[address] cyclosilica 20:55: 00:00 every Hosp carly te 01 :00 other day. l (Lokelma) 5 Give odd gram powder days in packet Fri,Fri, packet u,Sat calcium 2021-0 2022- No 667mg QD Take 1 Method i acetate,aure 12-19- capsule st sphat bind, 20:55: 00:00 (667 mg Ho spita (PHOSLO) 01 :00 total) by l 667 mg mouth capsule nightly. metoprolol 2-0 2022- No 100mg Q12H Take 1 Met hodi tartrate 12-[address] (LOPRESSOR) 20:55: 00:00 (100 mg Ho spita 100 mg 01 :00 total) by l tablet mouth every 12 (twelve) hours. Hold for SBP<120 or HR<60 sodium 2021-0 2022- No 5g Q2D Take 5 g [facility] i zirconium 12-[address] cyclosilica 20:55: 00:00 every Hosp carly te 01 :00 other day. l (Lokelma) 5 Give odd gram powder days in packet Fri,Fri, packet u,Sat calcium 2021-0 2022- No 667mg QD Take 1 [facility] i acetate,aure 12-19- capsule st sphat bind, 20:55: 00:00 (667 mg Ho spita (PHOSLO) 01 :00 total) by l 667 mg mouth capsule nightly. metoprolol 2022-0 2022- No 100mg Q12H Take 1 Met hodi tartrate 12-19-[address] (LOPRESSOR) 20:55: 00:00 (100 mg Ho spita 100 mg 01 :00 total) by l tablet mouth every 12 (twelve) hours. Hold for SBP<120 or HR<60 sodium 2022-0 2022- No 5g Q2D Take 5 g [facility] i zirconium 9-21 09-[address] cyclosilica 20:55: 00:00 every Hosp carly te 01 :00 other day. l (Lokelma) 5 Give odd gram powder days in packet Sun,Fri, packet u,Sat cefTAZidime 2-0 Yes 1g QD Infuse 1 g [facility] (FORTAZ) 1 - into a st gram in 50 00:00: venous Hospi ta mL Mini-Bag 00 catheter l Plus daily. vancomycin 2-0 Yes 750mg Infuse 750 [facility] 750 mg in 9-[address] sodium 00:00: venous Hospita chloride 00 catheter l 0.9% 250 mL Every IVPB Friday, Friday, and Friday. cefTAZidime 2-0 Yes 1g QD Infuse 1 g [facility] (FORTAZ) 1 - into a st gram in 50 00:00: venous Hospi ta mL Mini-Bag 00 catheter l Plus daily. vancomycin 2-0 Yes 750mg Infuse 750 [facility] 750 mg in 9-[address] sodium 00:00: venous [facility]ospita chloride 00 catheter l 0.9% 250 mL Every IVPB Friday, Friday, and Friday. cefTAZidime 2-0 Yes 1g QD Infuse 1 g [facility] (FORTAZ) 1 - into a st gram in 50 00:00: venous Hospi ta mL Mini-Bag 00 catheter l Plus daily. vancomycin 2-0 Yes 750mg Infuse 750 [facility] 750 mg in 9-[address] sodium 00:00: venous [facility]ospita chloride 00 catheter l 0.9% 250 mL Every IVPB Friday, Friday, and Friday. cefTAZidime 2022-0 Yes 1g QD Infuse 1 g [facility] (FORTAZ) 1 - into a st gram in 50 00:00: venous Hospi ta mL Mini-Bag 00 catheter l Plus daily. vancomycin 2022-0 Yes 750mg Infuse 750 [facility] 750 mg in 9-[address] sodium 00:00: venous [facility]ospita chloride 00 catheter l 0.9% 250 mL Every IVPB Friday, Friday, and Friday. cefTAZidime 2022-0 Yes 1g QD Infuse 1 g [facility] (FORTAZ) 1 - into a st gram in 50 00:00: venous Hospi ta mL Mini-Bag 00 catheter l Plus daily. vancomycin 2-0 Yes 750mg Infuse 750 [facility] 750 mg in 9-[address] sodium 00:00: venous [facility]ospita chloride 00 catheter l 0.9% 250 mL Every IVPB Friday, Friday, and Friday. cefTAZidime 2-0 Yes 1g QD Infuse 1 g [facility] (FORTAZ) 1 9-[address] gram in 50 00:00: venous Hospi ta mL Mini-Bag 00 catheter l Plus daily. vancomycin 2-0 Yes 750mg Infuse 750 [facility] 750 mg in 9-[address] sodium 00:00: venous [facility]ospita chloride 00 catheter l 0.9% 250 mL Every IVPB Friday, Friday, and Friday. cefTAZidime 2-0 Yes 1g QD Infuse 1 g [facility] (FORTAZ) 1 9-[address] gram in 50 00:00: venous Hospi ta mL Mini-Bag 00 catheter l Plus daily. vancomycin 2021-0 Yes 750mg Infuse 750 [facility] 750 mg in 9-[address] sodium 00:00: venous [facility]ospita chloride 00 catheter l 0.9% 250 mL Every IVPB Friday, Friday, and Friday. cefTAZidime 2-0 Yes 1g QD Infuse 1 g [facility] (FORTAZ) 1 9-[address] gram in 50 00:00: venous Hospi ta mL Mini-Bag 00 catheter l Plus daily. vancomycin 2021-0 Yes 750mg Infuse 750 [facility] 750 mg in 9-[address] sodium 00:00: venous [facility]ospita chloride 00 catheter l 0.9% 250 mL Every IVPB Friday, Friday, and Friday. aspirin 325 2021-0 2021- No 325mg QD Take 325 [facility] MG tablet 12-18- mg by st 20:55: 00:00 mouth Hospita 48 :00 daily. l clonIDINE 2-0 2022- No .2mg Q.[id number] Take 1 [facility] HCl 12-18- [id number] tablet st (CATAPRES) 20:55: 00:00 3D (0.2 mg Hos acacia 0.2 MG 48 :00 total) by l tablet mouth 3 (three) times a day as needed. Hold if SBP<100, DBP<60 LIDOCAINE 2021- No 1{appli Q.73690547 Apply 1 [facility] HCL TOP 12-18 cation} [id number] applicatio st 20:55: 00:00 3W n Hospita 48 :00 topically l 3 (three) times a week. 3% Gel, Apply to right hemodialys is access every day shift every Mon, Wed,, Fri. For pain prior to dialysis lisinopril 2021- No 40mg QD Take 1 Meth inderjit (PRINIVIL) 12-18 tablet (40 st 40 mg 20:55: 00:00 mg total) Hospit a tablet 48 :00 by mouth l daily. Hold if SBP<110, DBP<60 ,do not hold prior to dilaysis traMADol 2021- No [id number] 50mg Q6H Take 50 mg M ethodi (ULTRAM) 50 12-[address] mg tablet 20:55: 00:00 every 6 Hosp carly 48 :00 (six) l hours as needed for moderate pain .Acute Pain. acetaminoph 2021- No 1000mg Q6H Take 1,000 [facility] en 12-18- mg by st (TYLENOL) 20:55: 00:00 mouth Hospit a 500 MG 48 :00 every 6 l tablet (six) hours as needed for mild pain. zinc 2021- No 220mg QD Take 220 [facility] sulfate 12-18- mg by st (ZINCATE) 20:55: 00:00 mouth Hospit a 220 (50) mg 48 :00 daily. l capsule aspirin 325 2021- No 325mg QD Take 325 [facility] MG tablet 12-18-[address] 20:55: 00:00 mouth Hospita 48 :00 daily. l clonIDINE 2021- No .2mg Q.14322376 Take 1 [facility] HCl 12-18- [id number] tablet st (CATAPRES) 20:55: 00:00 3D (0.2 mg Hos acacia 0.2 MG 48 :00 total) by l tablet mouth 3 (three) times a day as needed. Hold if SBP<100, DBP<60 LIDOCAINE 2021- No 1{appli Q.48426699 Apply 1 [facility] HCL TOP 12-18 cation} [id number] applicatio [address] 20:55: 00:00 3W n Hospita 48 :00 topically l 3 (three) times a week. 3% Gel, Apply to right hemodialys is access every day shift every Mon, Wed,, Fri. For pain prior to dialysis lisinopril 2021- No 40mg QD Take 1 Meth inderjit (PRINIVIL) 12-18 tablet (40 st 40 mg 20:55: 00:00 mg total) Hospit a tablet 48 :00 by mouth l daily. Hold if SBP<110, DBP<60 ,do not hold prior to dilaysis traMADol 2021- [place] [id number] 50mg Q6H Take 50 mg M ethodi (ULTRAM) 50 12-[address] mg tablet 20:55: 00:00 [...] 325mg QD Take 325 [facility] MG tablet 12-18-[address] 20:55: 00:00 mouth Hospita 48 :00 daily. l clonIDINE 2021- No .2mg Q.99446851 Take 1 [facility] HCl 12-18- [id number] tablet st (CATAPRES) 20:55: 00:00 3D (0.2 mg Hos acacia 0.2 MG 48 :00 total) by l tablet mouth 3 (three) times a day as needed. Hold if SBP<100, DBP<60 LIDOCAINE 2021- No 1{appli Q.63893267 Apply 1 [facility] HCL TOP 12-18 cation} [id number] applicatio st 20:55: 00:00 3W n Hospita 48 :00 topically l 3 (three) times a week. 3% Gel, Apply to right hemodialys is access every day shift every Mon, Wed,, Fri. For pain prior to dialysis lisinopril 2021- No 40mg QD Take 1 Meth inderjit (PRINIVIL) 12-18 tablet (40 st 40 mg 20:55: 00:00 mg total) Hospit a tablet 48 :00 by mouth l daily. Hold if SBP<110, DBP<60 ,do not [place] [id number] 50mg Q6H Take 50 mg M ethodi (ULTRAM) 50 12-[address] mg tablet 20:55: 00:00 every 6 Hosp carly 48 :00 (six) l hours as needed for moderate pain .Acute Pain. acetaminoph No 1000mg Q6H Take 1,000 [facility] en [...] 325mg QD Take 325 [facility] MG tablet 12-18-[address] 20:55: 00:00 mouth Hospita 48 :00 daily. l clonIDINE 2021- No .2mg Q.76652775 Take 1 [facility] HCl 12-18- [id number] tablet st (CATAPRES) 20:55: 00:00 3D (0.2 mg Hos [place]acia 0.2 MG 48 :00 total) by l tablet mouth 3 (three) times a day as needed. Hold if SBP<100, DBP<60 LIDOCAINE 2021- No 1{appli Q.82103942 Apply 1 [facility] HCL TOP 12-18 cation} [id number] applicatio st 20:55: 00:00 3W n Hospita 48 :00 topically l 3 (three) times a week. 3% Gel, Apply to right hemodialys is access every day shift every Mon, Wed,, Fri. For pain prior to dialysis lisinopril 2021- No 40mg QD Take 1 Meth inderjit (PRINIVIL) 12-18 tablet (40 st 40 mg 20:55: 00:00 mg total) Hospit a tablet 48 :00 by mouth l daily. Hold if SBP<110, DBP<60 ,do not hold [place] [id number] 50mg Q6H Take 50 mg M ethodi (ULTRAM) 50 12-[address] mg tablet 20:55: 00:00 every 6 Hosp carly 48 :00 (six) l hours as needed for moderate pain .Acute Pain. acetaminoph No 1000mg Q6H Take 1,000 [facility] en 12-18-[address] (TYLENOL) 20:55: 00:00 mouth Hospit a 500 MG 48 :00 every 6 l tablet (six) hours as needed for mild pain. zinc No 220mg QD Take 220 [facility] sulfate 12-18-[address] (ZINCATE) 20:55: 00:00 mouth Hospit a 220 (50) mg 48 :00 daily. l capsule aspirin 325 No 325mg QD Take 325 [facility] MG tablet 12-18-[address] 20:55: 00:00 mouth Hospita 48 :00 daily. l clonIDINE No .2mg Q.93797579 Take 1 [facility] HCl 12-18- [id number] tablet st (CATAPRES) 20:55: 00:00 3D (0.2 mg Hos acacia 0.2 MG 48 :00 total) by l tablet mouth 3 (three) times a day as needed. Hold if SBP<100, DBP<60 LIDOCAINE 2021- No 1{appli Q.53170083 Apply 1 [facility] HCL TOP 12-18 cation} [id number] applicatio st 20:55: 00:00 3W n Hospita 48 :00 topically l 3 (three) times a week. 3% Gel, Apply to right hemodialys is access every day shift every Mon, Wed,, Fri. For pain prior to dialysis lisinopril No 40mg QD Take 1 Meth inderjit (PRINIVIL) 12-18 tablet (40 st 40 mg 20:55: 00:00 mg total) Hospit a tablet 48 :00 by mouth l daily. Hold if SBP<110, DBP<60 ,do not [place] [id number] 50mg Q6H Take 50 mg M ethodi (ULTRAM) 50 12-[address] mg tablet 20:55: 00:00 every 6 Hosp carly 48 :00 (six) l hours as needed for moderate pain .Acute Pain. acetaminoph No 1000mg Q6H Take 1,000 [facility] en [...] 325mg QD Take 325 [facility] MG tablet 12-18-[address] 20:55: 00:00 mouth Hospita 48 :00 daily. l clonIDINE 2021- No .2mg Q.81809412 Take 1 [facility] HCl 12-18- [id number] tablet st (CATAPRES) 20:55: 00:00 3D (0.2 mg Hos [place]acia 0.2 MG 48 :00 total) by l tablet mouth 3 (three) times a day as needed. Hold if SBP<100, DBP<60 LIDOCAINE 2021- No 1{appli Q.90070237 Apply 1 [facility] HCL TOP 12-18 cation} [id number] applicatio st 20:55: 00:00 3W n Hospita 48 :00 topically l 3 (three) times a week. 3% Gel, Apply to right hemodialys is access every day shift every Mon, Wed,, Fri. For pain prior to dialysis lisinopril 2021- No 40mg QD Take 1 Meth inderjit (PRINIVIL) 12-18 tablet (40 st 40 mg 20:55: 00:00 mg total) Hospit a tablet 48 :00 by mouth l daily. Hold if SBP<110, DBP<60 ,do not hold prior to dilaysis tra[place] 2021- [place] [id number] 50mg Q6H Take 50 mg M ethodi (ULTRAM) 50 12-[address] mg tablet 20:55: 00:00 [...] 325mg QD Take 325 [facility] MG tablet 12-18-[address] 20:55: 00:00 mouth Hospita 48 :00 daily. l clonIDINE 2021- No .2mg Q.50038862 Take 1 [facility] HCl 12-18- [id number] tablet st (CATAPRES) 20:55: 00:00 3D (0.2 mg Hos acacia 0.2 MG 48 :00 total) by l tablet mouth 3 (three) times a day as needed. Hold if SBP<100, DBP<60 LIDOCAINE 2021- No 1{appli Q.40296945 Apply 1 [facility] HCL TOP 12-18 cation} [id number] applicatio [address] 20:55: 00:00 3W n Hospita 48 :00 topically l 3 (three) times a week. 3% Gel, Apply to right hemodialys is access every day shift every Mon, Wed,, Fri. For pain prior to dialysis lisinopril 2021- No 40mg QD Take 1 Meth inderjit (PRINIVIL) 12-18 tablet (40 st 40 mg 20:55: 00:00 mg total) Hospit a tablet 48 :00 by mouth l daily. Hold if SBP<110, DBP<60 ,do not hold prior to dilaysis traM[place]ol 2021- [place] [id number] 50mg Q6H Take 50 mg M ethodi (ULTRAM) 50 12-[address] mg tablet 20:55: 00:00 [...] 325mg QD Take 325 [facility] MG tablet 12-18-[address] 20:55: 00:00 mouth Hospita 48 :00 daily. l clonIDINE 2021- No .2mg Q.19627118 Take 1 [facility] HCl 12-18- [id number] tablet st (CATAPRES) 20:55: 00:00 3D (0.2 mg Hos acacia 0.2 MG 48 :00 total) by l tablet mouth 3 (three) times a day as needed. Hold if SBP<100, DBP<60 LIDOCAINE 2021- No 1{appli Q.69499338 Apply 1 [facility] HCL TOP 12-18 cation} [id number] applic[address] 20:55: 00:00 3W n Hospita [...] hold prior to dilaysis traMADol 2021- [place] [id number] 50mg Q6H Take 50 mg M ethodi [...] Hospita 45 needed for l sleep. albuterol 0 Yes 2.5mg Q.43406467 Take 2.5 [facility] sulfate -[id number] (PROVENTIL) 20:55: 3D nebulizati Hospita 2.5 mg/0.5 45 on 3 l mL solution (three) for times a nebulizatio day as n needed (congestio n/cough). amLODIPine 0 Yes 10mg QD Take 1 Metho di (NORVASC) -20 tablet (10 st 10 mg 20:55: mg total) Hospita tablet 45 by mouth l daily. Hold for SBP<110/60 ,Hold prior to dialysis. lanolin/min Yes 1[drp] Q.5D Apply 1 M ethodi eral 9-[address] oil/petrola 20:55: eye 2 Hospi ta timo 45 (two) l (ARTIFICIAL times a TEARS OPHT) day. 0.4% carvedilol Yes 25mg Q.5D Take 25 mg M ethodi (COREG) 25 9-[address] MG tablet 20:55: (two) Hospita 45 times a l day with meals. Hold if SBP<100, DBP<60 lactulose Yes 20g Q24H Take 20 g Met [...] is access as needed for pain omeprazole Yes 20mg QD Take 20 mg M [facility]i (PriLOSEC) 9-[address] 20 MG 20:55: daily. Hospita capsule 45 l polyethylen Yes 17g QD Take 17 g M ethodi e glycol 9-[address] (MIRALAX) 20:55: daily. Hospit a 17 gram 45 l packet amino Yes 30mL Q.13416956 Take 30 mL [facility] acids/prote 9-20 [id number] [address] mouth [address] in 20:55: 3D (three) Hospita hydr/fiber 45 times a l (PRO-STAT day. RENAL CARE ORAL) senna 0 Yes 2{tbl} Q12H Take 2 [facility] (SENOKOT) 9-[address] 8.6 mg 20:55: mouth Hospita tablet 45 every 12 l (twelve) hours. cetirizine Yes 10mg QD Take 10 mg M ethodi (ZyrTEC) 10 9-[address] MG tablet 20:55: daily. Hospit a 45 l calcium 2021-0 2022- No 1334mg Q.27280947 Take 2 [facility] acetate 9-18 12-20 [id number] capsules s t (PHOSLO) 14:15: 00:00 3D (1,334 mg Hos acacia 667 mg 08 :00 total) by l capsule mouth 3 (three) times a day with meals. Give 15 minutes before meals calcium 2022-0 2022- No 1334mg Q.77266528 Take 2 [facility] acetate 9-18 12-20 [id number] capsules s t (PHOSLO) 14:15: 00:00 3D (1,334 mg Hos acacia 667 mg 08 :00 total) by l capsule mouth 3 (three) times a day with meals. Give 15 minutes before meals calcium 2021-0 2022- No 1334mg Q.02826334 Take 2 [facility] acetate 9-18 12-20 [id number] capsules s t (PHOSLO) 14:15: 00:00 3D (1,334 mg Hos acacia 667 mg 08 :00 total) by l capsule mouth 3 (three) times a day with meals. Give 15 minutes before meals calcium 2021-0 2022- No 1334mg [id number] Take 2 Methodi acetate 12-18-20 [id number] capsules s t (PHOSLO) 14:15: 00:00 3D (1,334 mg Hos acacia 667 mg 08 :00 total) by l capsule mouth 3 (three) times a day with meals. Give 15 minutes before meals calcium 2021-0 2022- No 1334mg [id number] Take 2 Methodi acetate 9-20 -20 [id number] capsules s t (PHOSLO) 14:15: 00:00 3D (1,334 mg Hos acacia 667 mg 08 :00 total) by l capsule mouth 3 (three) times a day with meals. Give 15 minutes before meals calcium 2022-0 2022- No 1334mg [id number] Take 2 Methodi acetate 9-20 -20 [id number] capsules s t (PHOSLO) 14:15: 00:00 3D (1,334 mg Hos acacia 667 mg 08 :00 total) by l capsule mouth 3 (three) times a day with meals. Give 15 minutes before meals calcium 2022-0 2022- No 1334mg [id number] Take 2 Methodi acetate 9-20 09-20 [id number] capsules s t (PHOSLO) 14:15: 00:00 3D (1,334 mg Hos acacia 667 mg 08 :00 total) by l capsule mouth 3 (three) times a day with meals. Give 15 minutes before meals calcium 2022-0 2022- No 1334mg [id number] Take 2 Methodi acetate 9-20 -20 [id number] capsules s t (PHOSLO) 14:15: 00:00 3D (1,334 mg Hos acacia 667 mg 08 :00 total) by l capsule mouth 3 (three) times a day with meals. Give 15 minutes before meals calcium 2022-0 Yes 2001mg [id number] Take 3 [facility] acetate,aure 9-[id number] sphat bind, 00:00: 3D (2,001 mg [facility] (PHOSLO) 00 total) by l 667 mg mouth 3 capsule (three) times a day with meals. Give 15 minutes before meals calcium 2022-0 Yes 2001mg Q.85606210 Take 3 [facility] acetate,aure 9-[id number] sphat bind, 00:00: 3D (2,001 mg [facility] (PHOSLO) 00 total) by l 667 mg mouth 3 capsule (three) times a day with meals. Give 15 minutes before meals calcium 2022-0 Yes 2001mg Q.41001550 Take 3 [facility] acetate,aure 9-[id number] sphat bind, 00:00: 3D (2,001 mg [facility] (PHOSLO) 00 total) by l 667 mg mouth 3 capsule (three) times a day with meals. Give 15 minutes before meals calcium 2022-0 Yes 2001mg Q.86307495 Take 3 [facility] acetate,aure 9-[id number] sphat bind, 00:00: 3D (2,001 mg [facility] (PHOSLO) 00 total) by l 667 mg mouth 3 capsule (three) times a day with meals. Give 15 minutes before meals calcium 2022-0 Yes 2001mg Q.15947395 Take 3 [facility] acetate,aure 9-[id number] sphat bind, 00:00: 3D (2,001 mg [facility] (PHOSLO) 00 total) by l 667 mg mouth 3 capsule (three) times a day with meals. Give 15 minutes before meals calcium 2022-0 Yes 2001mg Q.76316266 Take 3 [facility] acetate,aure 9-[id number] sphat bind, 00:00: 3D (2,001 mg [facility] (PHOSLO) 00 total) by l 667 mg mouth 3 capsule (three) times a day with meals. Give 15 minutes before meals calcium 2021-0 Yes 2001mg Q.[id number] Take 3 [facility] acetate,aure 9-[id number] sphat bind, 00:00: 3D (2,001 mg [facility] (PHOSLO) 00 total) by l 667 mg mouth 3 capsule (three) times a day with meals. Give 15 minutes before meals calcium 2021-0 Yes 2001mg Q.[id number] Take 3 [facility] acetate,aure 9-[id number] sphat bind, 00:00: 3D (2,001 mg [facility] (PHOSLO) 00 total) by l 667 mg mouth 3 capsule (three) times a day with meals. Give 15 minutes before meals acetaminoph acetaminoph 2021- No 1 BID acetaminop [facility] en 300 [...] 2021-0 Yes Q12H every 12 UT en-codeine 6-28 (twelve) Healt h (Tylenol w/ 16:44: hours. Codeine #3) 48 300-30 MG tablet atorvastati 0 Yes QD 1 (one) UT n (Lipitor) 6-28 time each Hea lth 20 MG 16:44: day. tablet 48 calcium Yes calcium UT acetate 09-25 acetate(ph Health [...] Health (Vitamin 16:44: D-2) 1.25 48 MG (45318 UT) capsule ferrous 0 Yes Q12H every 12 UT sulfate 325 09-25 (twelve) Heal th (65 Fe) MG 16:44: hours. tablet 48 fluticasone 0 Yes QD 1 (one) UT (Flonase) 09-25 time each Healt h 50 MCG/ACT 16:44: day. nasal spray 48 folic acid 2021-0 Yes QD 1 (one) UT (Folvite) 1 09-25 time each Hea lth MG tablet 16:44: day. 48 hydrALAZINE 2021-0 Yes Q8H every 8 UT (Apresoline 09-25 (eight) Healt h ) 100 MG 16:44: hours. tablet 48 lactulose Yes 30mL QD 30 mL 1 UT (Chronulac) 09-25 (one) time He alth 10 GM/15ML 16:44: each day. solution 48 lisinopril 2021-0 Yes QD 1 (one) UT 40 MG 09-25 time each Health tablet 16:44: day. 48 Patiromer 2021-0 Yes [place] UT Sorbitex 09-25 8.4 gram Health Calcium 16:44: oral (Veltassa) 48 powder 8.4 g pack packet one on non dialysis days tue, thur, sat sertraline 2021-0 Yes QD 1 (one) UT (Zoloft) - time each Health 100 MG 16:44: day. [...] 12 l (twelve) hours. traMADol 2018-03 Yes [id number] 50mg Q6H Take 50 mg Me thodi [...] for l sleep. albuterol 2018-03 Yes 2.5mg Q.43329197 Take 2.5 [facility] sulfate 1-[id number] (PROVENTIL) 15:53: 3D nebulizati [...] OPHT) day. 0.4% calcium 2018-03 Yes 2001mg Q.97057932 Take 2,001 [facility] acetate 1-[id number] (PHOSLO) 15:53: 3D mouth 3 Hospit a 667 mg 19 (three) l capsule times a day with meals. Give 15 minutes before meals clonIDINE 2018-03 Yes .2mg Q.25413883 Take 0.2 [facility] HCl 1-[id number] (CATAPRES) 15:53: 3D mouth [...] needed for pain LIDOCAINE 2018-03 Yes 1{appli Q.83595418 Apply 1 [facility] HCL TOP 1-30 cation} [id number] applicatio st 15:53: [facility] n [facility] 19 [...] 19 l packet amino 2018-03 Yes 30mL Q.14177809 Take 30 mL [facility] acids/prote 1-30 [id number] [address] mouth [address] in 15:53: 3D (three) Hospita hydr/fiber 19 times a l (PRO-STAT day. RENAL CARE ORAL) senna 2018-03 Yes 2{tbl} Q12H Take 2 [facility] (SENOKOT) 1-[address] 8.6 mg 15:53: mouth [facility]osp[facility] tablet 19 every 12 l (twelve) hours. traMADol 2018-03 Yes [id number] 50mg Q6H Take 50 mg Me thodi [...] daily. l capsule calcium 2018-03 Yes 2001mg Q.97285136 Take 2,001 [facility] acetate 1-[id number] (PHOSLO) 15:53: 3D mouth 3 Hospit a 667 mg 19 (three) l capsule times a day with meals. Give 15 minutes before meals cetirizine 2018-03 Yes 10mg QD Take 10 mg [facility] (ZyrTEC) 10 1-[address] MG tablet 15:53: daily. Hospit a 19 l clonIDINE 2018-03 Yes .2mg Q.00271238 Take 0.2 [facility] HCl 1-[id number] (CATAPRES) 15:53: 3D mouth [...] needed for pain LIDOCAINE 2018-03 Yes 1{appli Q.77731736 Apply 1 [facility] HCL TOP 1-30 cation} [id number] applicatio st 15:53: [facility] n [facility] 19 [...] 19 l packet amino 2018-03 Yes 30mL Q.30832231 Take 30 mL [facility] acids/prote 1-30 [id number] [address] mouth [address] in 15:53: 3D (three) Hospita hydr/fiber 19 times a l (PRO-STAT day. RENAL CARE ORAL) senna 2018-03 Yes 2{tbl} Q12H Take 2 [facility] (SENOKOT) 1-[address] 8.6 mg 15:53: mouth [facility]osp[facility] tablet 19 every 12 l (twelve) hours. traMADol 2018-03 Yes [id number] 50mg Q6H Take 50 mg Me thodi [...] for l sleep. albuterol 2018-03 Yes 2.5mg Q.16729538 Take 2.5 [facility] sulfate 1-[id number] (PROVENTIL) 15:53: 3D nebulizati [...] OPHT) day. 0.4% calcium 2018-03 Yes 2001mg Q.97595129 Take 2,001 [facility] acetate 1-[id number] (PHOSLO) 15:53: 3D mouth 3 Hospit a 667 mg 19 (three) l capsule times a day with meals. Give 15 minutes before meals clonIDINE 2018-03 Yes .2mg Q.65486682 Take 0.2 [facility] HCl 1-[id number] (CATAPRES) 15:53: 3D mouth [...] needed for pain LIDOCAINE 2018-03 Yes 1{appli Q.50456552 Apply 1 [facility] HCL TOP 1-30 cation} [id number] applicatio [facility] 15:53: [facility] n [facility] 19 [...] 19 l packet amino 2018-03 Yes 30mL Q.01911796 Take 30 mL [facility] acids/prote 1-30 0274310437 by mouth [address] in 15:53: 3D (three) Hospita hydr/fiber 19 times a l (PRO-STAT day. RENAL CARE ORAL) senna 2018-03 Yes 2{tbl} Q12H Take 2 [facility] (SENOKOT) 1-[address] 8.6 mg 15:53: mouth [facility]osp[facility] tablet 19 every 12 l (twelve) hours. traMADol 2018-03 Yes 81248 50mg Q6H Take 50 mg Me thodi [...] for l sleep. albuterol 2018-03 Yes 2.5mg Q.82629032 Take 2.5 [facility] sulfate 1-[id number] (PROVENTIL) 15:53: 3D nebulizati [...] OPHT) day. 0.4% calcium 2018-03 Yes 2001mg Q.31581425 Take 2,001 [facility] acetate 1-[id number] (PHOSLO) 15:53: 3D mouth 3 Hospit a 667 mg 19 (three) l capsule times a day with meals. Give 15 minutes before meals clonIDINE 2018-03 Yes .2mg Q.66454489 Take 0.2 [facility] HCl 1-[id number] (CATAPRES) 15:53: 3D mouth [...] needed for pain LIDOCAINE 2018-03 Yes 1{appli Q.13122208 Apply 1 [facility] HCL TOP 1-30 cation} [id number] applicatio [address] 15:53: 3[facility] n [facility] 19 [...] 19 l packet amino 2018-03 Yes 30mL Q.59974901 Take 30 mL [facility] acids/prote 1-30 [id number] by mouth [address] in 15:53: 3D (three) Hospita hydr/fiber 19 times a l (PRO-STAT day. RENAL CARE ORAL) senna 2018-03 Yes 2{tbl} Q12H Take 2 [facility] (SENOKOT) 1-[address] 8.6 mg 15:53: mouth [facility]osp[facility] tablet 19 every 12 l (twelve) hours. traMADol 2018-03 Yes 12423 50mg Q6H Take 50 mg Me thodi [...] for l sleep. albuterol 2018-03 Yes 2.5mg Q.18266948 Take 2.5 [facility] sulfate 1-[id number] (PROVENTIL) 15:53: 3D nebulizati [...] OPHT) day. 0.4% albuterol 2018-03 Yes 2.5mg Q.35692031 Take 2.5 [facility] sulfate 1-[id number] (PROVENTIL) 15:53: 3D nebulizati Hospita 2.5 mg/0.5 19 on 3 l mL solution (three) for times a nebulizatio day as n needed (congestio n/cough). calcium 2018-03 Yes 2001mg Q.99758441 Take 2,001 [facility] acetate 1-[id number] (PHOSLO) 15:53: 3D mouth 3 Hospit a 667 mg 19 (three) l capsule times a day with meals. Give 15 minutes before meals clonIDINE 2018-03 Yes .2mg Q.12301006 Take 0.2 [facility] HCl 1-[id number] (CATAPRES) 15:53: 3D mouth [...] needed for pain LIDOCAINE 2018-03 Yes 1{appli Q.42733149 Apply 1 [facility] HCL TOP 1-30 cation} [id number] applicatio [address] 15:53: [facility] n [facility]ospita 19 [...] 19 l packet amino 2018-03 Yes 30mL Q.85025946 Take 30 mL [facility] acids/prote 1-30 [id number] [address] mouth [facility] [address] in 15:53: 3D (three) Hospita hydr/fiber 19 times a l (PRO-STAT day. RENAL CARE ORAL) warfarin 2018-03 Yes 5mg QD Take [address] [facility] (COUMADIN) 1-21 by [facility] 5 MG tablet 22:13: daily. [place] [address] Center zinc 2018-03 Yes 220mg QD Take [...] 44 daily. Center calcium 2018-03 Yes 667mg Q.48577837 Take [address] acetate 1-21 [id number] mg by [facility] (PHOSLO) 22:13: 3D mouth 3 [facility]ica l 667 mg 44 (three) Center capsule times daily. cloNIDine 2018-03 Yes hypertensio .2mg Q.17009633 Take 0.[address] [facility] [address] HCl 1-21 n [id number] mg by [facility] (CATAPRES) 22:13: 3D mouth [...] Center gram/dose powder amino 2018-03 Yes 30mL Q.04242939 Take [address] [facility] acids-prote 1-21 4533355544 mLs by [facility] in 22:13: 3D mouth [...] 44 daily. Center calcium 2018-03 Yes 667mg Q.25591133 Take [address] acetate 1-21 [id number] mg by [facility] (PHOSLO) 22:13: 3D mouth 3 Medica l 667 mg 44 (three) Center capsule times daily. cloNIDine 2018-03 Yes hypertensio .2mg Q.09292198 Take 0.[address] HCl 1-21 n [id number] mg by [facility] (CATAPRES) 22:13: 3D mouth [...] Center gram/dose powder amino 2018-03 Yes 30mL Q.13126380 Take [address] [facility] acids-prote 1-21 [id number] mLs by [facility] in 22:13: 3D mouth 3 Medical hydr-fiber 44 (three) Center 15 gram- times 100 kcal/30 daily. mL LiPk senna 2018-03 Yes 2{tbl} Q.5D Take [address] [facility] (SENOKOT) 1-21 tablets by Luke [facility] 8.6 mg 22:13: mouth 2 Medical tablet 44 (two) Center times daily. traMADol 2018-03 Yes 50mg Take [address] [facility] (ULTRAM) 50 -21 by mouth [facility] mg tablet 22:13: [...] 44 daily. Center calcium 2018-03 Yes 667mg Q.09493832 Take [address] acetate 1-21 [id number] mg by [facility] (PHOSLO) 22:13: 3D mouth 3 Medica l 667 mg 44 (three) Center capsule times daily. cloNIDine 2018-03 Yes hypertensio .2mg Q.07185188 Take 0.[address] HCl 1-21 n [id number] mg by [facility] (CATAPRES) 22:13: 3D mouth [...] Center gram/dose powder amino 2018-03 Yes 30mL Q.28575154 Take [address] [facility] acids-prote 1-21 0203445064 mLs by [facility] in 22:13: 3D mouth [...] mouth Medical 220 (50) mg 44 daily. [facility] capsule cetirizine 2018-03 Yes 10mg QD Take [address] (ZYRTEC) 10 1-21 by mouth [facility] MG tablet 22:13: daily. Medica l 44 [place] lidocaine 3 2018-03 Yes administrat 1{appli Apply [...] 44 daily. Center calcium 2018-03 Yes 667mg Q.03225337 Take [address] acetate 1-21 [id number] mg by [facility] (PHOSLO) 22:13: 3D mouth 3 Medica l 667 mg 44 (three) Center capsule times daily. cloNIDine 2018-03 Yes hypertensio .2mg Q.83186558 Take 0.[address] [facility] HCl 1-21 n [id number] mg by [facility] (CATAPRES) 22:13: 3D mouth [...] Center gram/dose powder amino 2018-03 Yes 30mL Q.95773730 Take [address] [facility] acids-prote 1-21 [id number] mLs by [facility] in 22:13: 3D mouth [...] MG tablet 22:13: daily. Medi [place] 44 [facility] zinc 2018-03 Yes 220mg QD Take [address] sulfate 1-21 mg by [facility] (ZINCATE) 22:13: mouth Medical 220 (50) mg 44 daily. [facility] capsule cetirizine 2018-03 Yes 10mg QD Take [address] (ZYRTEC) 10 1-21 by mouth [facility] MG tablet 22:13: daily. Medica l 44 [place] lidocaine 3 2018-03 Yes administrat 1{appli Apply [address] [facility] % Crea 1-21 ion of cation} applicatio kes 22:13: local n Medical [address] amLODIPine 2018-03 Yes hypertensio 5mg QD Take [address] [facility] (NORVASC) 1-21 n by mouth [facility] 10 MG 22:13: daily. Medical tablet 44 [facility] hydroxyprop 2018-03 Yes dry eye 1[drp] Q.5D Place [address] [facility] yl 1-21 drop into kes methylcellu 22:13: both eyes M edical lose 44 2 (two) [facility] (ISOPTO times TEARS) 2.5 daily % Artificial ophthalmic tears solution solution 0.4% (hypromell ose) . aspirin 325 2018-03 Yes acute 325mg QD Take [address] [facility] [address] MG tablet 1-21 myocardial mg by Mike es 22:13: infarction mouth Medica l 44 daily. [facility] calcium 2018-03 Yes 667mg Q.69943572 Take [address] acetate 1-21 [id number] mg by [facility] (PHOSLO) 22:13: 3D mouth 3 Medica l 667 mg 44 (three) Center capsule times daily. cloNIDine 2018-03 Yes hypertensio .2mg Q.71402773 Take 0.[address] HCl 1-21 n [id number] mg by [facility] (CATAPRES) 22:13: 3D mouth [...] Center gram/dose powder amino 2018-03 Yes 30mL Q.27509263 Take [address] [facility] [address] acids-prote 1-21 [id number] mLs by [facility] in 22:13: 3D mouth [...] MG tablet 22:13: daily. Medi ellyn 44 [facility] zinc 2018-03 Yes 220mg QD Take [address] sulfate 1-21 mg by [facility] (ZINCATE) 22:13: mouth Medical 220 (50) mg 44 daily. [facility] capsule cetirizine 2018-03 Yes 10mg QD Take [address] (ZYRTEC) 10 1-21 by mouth Luke s MG tablet 22:13: daily. Medica l 44 [place] lidocaine 3 2018-03 Yes administrat 1{appli Apply [address] [facility] % Crea 1-21 ion of cation} applicatio ke 22:13: local n Medical 44 anesthesia topically. [facility] ter amLODIPine 2018-03 Yes hypertensio 5mg QD Take [address] [facility] (NORVASC) 1-21 n by mouth [facility] 10 MG 22:13: daily. Medical tablet 44 [place] hydroxyprop 2018-03 Yes dry eye 1[drp] Q.5D Place [address] [facility] yl 1-21 drop into [facility] methylcellu 22:13: both eyes M edical lose 44 2 (two) Center (ISOPTO times TEARS) 2.5 daily % Artificial ophthalmic tears solution solution 0.4% (hypromell ose) . aspirin 325 2018-03 Yes acute 325mg QD Take [address] [facility] [address] MG tablet 1-21 myocardial mg by Mike es 22:13: infarction mouth Medica l 44 daily. [facility] amLODIPine 2018-03 Yes hypertensio 5mg QD Take [address] [facility] (NORVASC) 1-21 n by mouth [facility] 10 MG 22:13: daily. Medical tablet 44 [place] calcium 2018-03 Yes 667mg Q.77667847 Take [address] acetate 1-21 [id number] mg by [facility] (PHOSLO) 22:13: 3D mouth 3 Medica l 667 mg 44 (three) Center capsule times daily. cloNIDine 2018-03 Yes hypertensio .2mg Q.20711289 Take 0.[address] HCl 1-21 n [id number] mg by [facility] (CATAPRES) 22:13: 3D mouth [...] Center gram/dose powder amino 2018-03 Yes 30mL Q.68078677 Take [address] [facility] [address] acids-prote 1-21 [id number] mLs by [facility] in 22:13: 3D mouth 3 Medical hydr-fiber 44 (three) Center 15 gram- times 100 kcal/30 daily. mL LiPk senna 2018-03 Yes 2{tbl} Q.5D Take [address] [facility] (SENOKOT) 1-21 tablets by Luke s 8.6 mg 22:13: mouth 2 Medical tablet 44 (two) Center times daily. hydroxyprop 2018-03 Yes dry eye 1[drp] Q.5D Place [address] [facility] yl 1-21 drop into [facility] methylcellu 22:13: both eyes M edical lose 44 2 (two) Center (ISOPTO times TEARS) 2.5 daily % Artificial ophthalmic tears solution solution 0.4% (hypromell ose) . traMADol 2018-03 Yes 50mg Take 50 mg [...] MG tablet 22:13: daily. Medi ellyn 44 [place] zinc 2018-03 Yes 220mg QD Take [address] sulfate 1-21 mg by [facility] (ZINCATE) 22:13: mouth Medical 220 (50) mg 44 daily. [facility] capsule cetirizine 2018-03 Yes 10mg QD Take [address] (ZYRTEC) 10 1-21 by mouth Luke s MG tablet 22:13: daily. Medica l 44 [place] lidocaine 3 2018-03 Yes administrat 1{appli Apply [address] [facility] % Crea 1-21 ion of cation} applicatio [facility] 22:13: local n Medical 44 [...] 22:13: infarction mouth Medica l 44 daily. [facility] calcium 2018-03 Yes 667mg Q.41943647 Take [address] acetate 1-21 [id number] mg by [facility] (PHOSLO) 22:13: 3D mouth 3 Medica l 667 mg 44 (three) Center capsule times daily. aspirin 325 2018-03 Yes acute 325mg QD Take [address] [facility] [address] MG tablet 1-21 myocardial mg by Mike es 22:13: infarction mouth Medica l 44 daily. Center cloNIDine 2018-03 Yes hypertensio .2mg Q.01330299 Take 0.[address] HCl 1-21 n [id number] mg by [facility] (CATAPRES) 22:13: 3D mouth 3 Medi ellyn 0.2 MG 44 (three) Center tablet times daily. carvedilol 2018-03 Yes hypertensio 25mg Take [address] [facility] (COREG) 25 1-21 n by mouth 2 Imke es MG tablet 22:13: (two) Medical 44 [...] every Medical 44 night as Center needed. amLODIPine 2018-03 Yes hypertensio 5mg QD Take [...] 44 daily. Center calcium 2018-03 Yes 667mg Q.45562519 Take [address] acetate 1-21 [id number] mg by [facility] (PHOSLO) 22:13: 3D mouth 3 Medica l 667 mg 44 (three) Center capsule times daily. cloNIDine 2018-03 Yes hypertensio .2mg Q.77579822 Take 0.[address] [address] HCl 1-21 n [id number] mg by [facility] (CATAPRES) 22:13: 3D mouth [...] Center gram/dose powder amino 2018-03 Yes 30mL Q.38504206 Take [address] [facility] acids-prote 1-21 8726483046 mLs by [facility] in 22:13: 3D mouth [...] 1{appli Apply [address] [facility] % Crea -21 ion of cation} applicatio Abbi kes 22:13: local n Medical [address] omeprazole 2018-03 Yes 20mg QD Take [address] (PRILOSEC -21 by mouth [facility] OTC) 20 MG 22:13: daily. Medic al tablet 44 Center polyethylen 2018-03 Yes 17g QD Take [address] e glycol 1-21 by mouth [facility] (GLYCOLAX) 22:13: daily. Medic al 17 44 Center gram/dose powder amino 2018-03 Yes 30mL Q.61492681 Take [address] [facility] [address] acids-prote 1-21 0855499361 mLs by [facility] in 22:13: 3D mouth 3 Medical hydr-fiber 44 (three) Center 15 gram- times 100 kcal/30 daily. mL LiPk senna 2018-03 Yes 2{tbl} Q.5D Take [address] [facility] (SENOKOT) 1-21 tablets by Luke s 8.6 mg 22:13: mouth 2 Medical tablet 44 (two) Center times daily. traMADol 2018-03 Yes 50mg Take [address] [facility] (ULTRAM) 50 -21 by mouth Luke s mg tablet 22:13: every 6 Medic al 44 (six) Center hours as needed for Pain. calcium 2018-03 Yes 667mg Q.01095021 Take [address] acetate 1-21 [id number] mg by [facility] (PHOSLO) 22:13: 3D mouth 3 Medica l 667 mg 44 (three) Center capsule times daily. acetaminoph 2018-03 Yes 1000mg Take 1,000 [facility] [...] % Crea 1-21 ion of cation} applicatio [facility] 22:13: local n Medical 44 [...] 44 daily. Center calcium 2018-03 Yes 667mg Q.75331767 Take [address] acetate 1-21 [id number] mg by [facility] (PHOSLO) 22:13: 3D mouth 3 Medica l 667 mg 44 (three) Center capsule times daily. cloNIDine 2018-03 Yes hypertensio .2mg Q.93095363 Take 0.[address] HCl 1-21 n [id number] mg by [facility] (CATAPRES) 22:13: 3D mouth 3 Medi ellyn 0.2 MG 44 (three) Center tablet times daily. cloNIDine 2018-03 Yes hypertensio .2mg Q.33719722 Take 0.[address] [address] HCl 1-21 n [id number] mg by [facility] (CATAPRES) 22:13: 3D mouth [...] Center gram/dose powder amino 2018-03 Yes 30mL Q.64687583 Take [address] [facility] acids-prote 1-21 [id number] mLs by [facility] in 22:13: 3D mouth [...] tablet (six) hours as needed for Pain. carvedilol 2018-03 Yes hypertensio 25mg Take [address] [facility] (COREG) 25 1-21 n by mouth 2 Mike es MG tablet 22:13: (two) Medical 44 times Center daily with breakfast and dinner. warfarin 2018-03 Yes 5mg QD Take 5 [...] n Medical [address] lactulose 2018-03 Yes constipatio 20g Take 20 [...] Center gram/dose powder amino 2018-03 Yes 30mL Q.01572274 Take [address] [facility] acids-prote 1-21 8894015255 mLs by [facility] in 22:13: 3D mouth [...] mouth Medical 220 (50) mg 44 daily. [facility] capsule cetirizine 2018-03 Yes 10mg QD Take [...] 44 daily. Center calcium 2018-03 Yes 667mg Q.52797962 Take [address] acetate 1-21 [id number] mg by [facility] (PHOSLO) 22:13: 3D mouth 3 Medica l 667 mg 44 (three) Center capsule times daily. cloNIDine 2018-03 Yes hypertensio .2mg Q.00539301 Take 0.[address] [facility] HCl 1-21 n [id number] mg by [facility] (CATAPRES) 22:13: 3D mouth [...] Center gram/dose powder amino 2018-03 Yes 30mL Q.04470436 Take [address] [facility] acids-prote 1-21 [id number] mLs by [facility] in 22:13: 3D mouth [...] mouth Medical 220 (50) mg 44 daily. [facility] capsule cetirizine 2018-03 Yes 10mg QD Take [address] (ZYRTEC) 10 1-21 by mouth Luke [facility] MG tablet 22:13: daily. Medica l 44 [place] lidocaine 3 2018-03 Yes administrat 1{appli Apply [address] [facility] % Crea 1-21 ion of cation} applicatio [facility] 22:13: local n Medical 44 anesthesia topically. [address] amLODIPine 2018-03 Yes hypertensio 5mg QD Take [address] [facility] (NORVASC) 1-21 n by mouth [facility] 10 MG 22:13: daily. Medical tablet 44 [facility] hydroxyprop 2018-03 Yes dry eye 1[drp] Q.5D [...] 22:13: infarction mouth Medica l 44 daily. [facility] calcium 2018-03 Yes 667mg Q.72215710 Take [address] acetate 1-21 [id number] mg by [facility] (PHOSLO) 22:13: 3D mouth 3 Medica l 667 mg 44 (three) Center capsule times daily. cloNIDine 2018-03 Yes hypertensio .2mg Q.55338075 Take 0.[address] [facility] HCl 1-21 n [id number] mg by [facility] (CATAPRES) 22:13: 3D mouth [...] Center gram/dose powder amino 2018-03 Yes 30mL Q.51870407 Take [address] [facility] acids-prote 1-21 [id number] mLs by [facility] in 22:13: 3D mouth [...] tablet (six) hours as needed for Pain. aspirin 81 20180 Yes 81mg Take 1 [facility] mg chewable 1-26 tablet by ity of tablet 00:00: mouth [place] 00 daily. Medical Branch aspirin 81 20180 Yes 81mg Take 1 [facility] mg chewable 1-26 tablet by ity of tablet 00:00: mouth [place] 00 daily. Medical Branch aspirin 81 20180 Yes 81mg Take 1 [facility] mg chewable 1-26 tablet by ity of tablet 00:00: mouth [place] 00 daily. Medical Branch aspirin 81 20180 Yes 81mg Take 1 [facility] mg chewable 1-26 tablet by ity of tablet 00:00: mouth [place] 00 daily. Medical Branch aspirin 81 20180 Yes 81mg Take 1 [facility] mg chewable 1-26 tablet by ity of tablet 00:00: mouth [place] 00 daily. Medical Branch aspirin 81 20180 Yes 81mg Take 1 [facility] mg chewable 1-26 tablet by ity of tablet 00:00: mouth [place] 00 daily. Medical Branch aspirin 81 2018-0 Yes 81mg Take 1 [facility] mg chewable 1-26 tablet by ity of tablet 00:00: mouth [place] 00 daily. Medical Branch aspirin 81 20180 Yes 81mg Take 1 [facility] mg chewable 1-26 tablet by ity of tablet 00:00: mouth [place] 00 daily. Medical Branch aspirin 81 20180 Yes 81mg Take 1 [facility] mg chewable 1-26 tablet by ity of tablet 00:00: mouth [place] 00 daily. Medical Branch multivitami 2017-0 Yes 1{capsu Take 1 U nivers n capsule 1-25 le} capsule by ity of 17:56: mouth [place] 44 daily. Medical Branch pantoprazol 2017-0 Yes 40mg Take 1 Univ ers e 40 mg EC 1-25 tablet by ity of tablet 00:00: mouth [place] 00 daily. Medical Branch amLODIPine 2017- Yes 10mg Take 1 [facility] 10 mg 1-25 tablet by ity of tablet 00:00: mouth [place] 00 daily. Medical Branch atorvastati 2018-0 Yes 40mg Take 1 Univ ers n 40 mg 1-25 tablet ity of tablet 00:00: through 00 enteral Medical tube at Branch bedtime. carvedilol 2018-0 Yes 25mg Take 1 [facility] 25 mg 1-25 tablet by ity of tablet 00:00: mouth 2 (two) Medical times Branch daily with meals. hydralAZINE 2018-0 Yes 10mg Take 1 Univ ers 10 mg 1-25 tablet by ity of tablet 00:00: mouth [place] 00 every 8 Medical (eight) Branch hours. isosorbide 2018-0 Yes [id number] 30mg Take 1 [facility] mononitrate 1-25 tablet [...] 1-25 tablet ity of tablet 00:00: through 00 enteral Medical tube at Branch bedtime. carvedilol 2018-0 Yes 25mg Take 1 [facility] rs 25 mg 1-25 tablet by ity of tablet 00:00: mouth 2 (two) Medical times Branch daily with meals. hydralAZINE 2018-0 Yes 10mg Take 1 Univ ers 10 mg 1-25 tablet by ity of tablet 00:00: mouth [place] 00 every 8 Medical (eight) Branch hours. isosorbide 2018-0 Yes [id number] 30mg Take 1 [facility] mononitrate 1-25 tablet [...] 1-25 tablet ity of tablet 00:00: through 00 enteral Medical tube at Branch bedtime. carvedilol 2018-0 Yes 25mg Take 1 [facility] 25 mg 1-25 tablet by ity of tablet 00:00: mouth 2 00 (two) Medical times Branch daily with meals. hydralAZINE 2018-0 Yes 10mg Take 1 [facility] ers 10 mg 1-25 tablet by ity of tablet 00:00: mouth [place] 00 every 8 Medical (eight) Branch hours. isosorbide 2018-0 Yes [id number] 30mg Take 1 [facility] mononitrate 1-25 tablet [...] 1-25 tablet ity of tablet 00:00: through 00 enteral Medical tube at Branch bedtime. carvedilol 2018-0 Yes 25mg Take 1 [facility] 25 mg 1-25 tablet by ity of tablet 00:00: mouth 2 00 (two) Medical times Branch daily with meals. pantoprazol [...] Medical (eight) Branch hours. isosorbide 2018-0 Yes [id number] 30mg Take 1 [facility] mononitrate 1-25 tablet by ity of (IMDUR) 30 00:00: mouth [place] mg 24 hr 00 daily. Medical tablet Branch sevelamer 2018-0 Yes 1600mg Take 2 Univ ers 800 mg 1-25 tablets by ity of tablet 00:00: mouth 3 00 (three) Medical times Branch daily with meals. hydralAZINE 2018-0 Yes 10mg Take 1 Univ ers 10 mg 1-25 tablet by ity of tablet 00:00: mouth [place] 00 every 8 Medical (eight) Branch hours. isosorbide 2018-0 Yes [id number] 30mg Take 1 [facility] mononitrate 1-25 tablet [...] Medical (eight) Branch hours. isosorbide 2018-0 Yes [id number] 30mg Take 1 [facility] mononitrate 1-25 tablet [...] 1-25 tablet ity of tablet 00:00: through 00 enteral Medical tube at Branch bedtime. carvedilol 2018-0 Yes 25mg Take 1 Unive rs 25 mg 1-25 tablet by ity of tablet 00:00: mouth 2 00 (two) Medical times Branch daily with meals. hydralAZINE 2018-0 Yes 10mg Take 1 Univ ers 10 mg 1-25 tablet by ity of tablet 00:00: mouth [place] 00 every 8 Medical (eight) Branch hours. isosorbide 2018-0 Yes [id number] 30mg Take 1 Univers mononitrate 1-25 tablet [...] 1-25 tablet ity of tablet 00:00: through 00 enteral Medical tube at Branch bedtime. carvedilol 2018-0 Yes 25mg Take 1 Unive rs 25 mg 1-25 tablet by ity of tablet 00:00: mouth 2 00 (two) Medical times Branch daily with meals. hydralAZINE 2018-0 Yes 10mg Take 1 Univ ers 10 mg 1-25 tablet by ity of tablet 00:00: mouth [place] 00 every 8 Medical (eight) Branch hours. isosorbide 2018-0 Yes [id number] 30mg Take 1 [facility] mononitrate 1-25 tablet [...] 1-25 tablet ity of tablet 00:00: through 00 enteral Medical tube at Branch bedtime. carvedilol 2018-0 Yes 25mg Take 1 Unive rs 25 mg 1-25 tablet by ity of tablet 00:00: mouth 2 00 (two) Medical times Branch daily with meals. hydralAZINE 2018-0 Yes 10mg Take 1 Univ ers 10 mg 1-25 tablet by ity of tablet 00:00: mouth [place] 00 every 8 Medical (eight) Branch hours. isosorbide 2018-0 Yes [id number] 30mg Take 1 Univers mononitrate 1-25 tablet [...] ity of mg tablet 00:00: mouth 2 (two) Medical times Branch daily. magnesium 2017-0 Yes 800mg Take 2 Unive rs oxide 400 4-04 tablets by ity of mg tablet 00:00: mouth 2 (two) Medical times Branch daily. magnesium 2017-0 Yes 800mg Take 2 Unive rs oxide 400 4-04 tablets by ity of mg tablet 00:00: mouth 2 (two) Medical times Branch daily. magnesium 2017-0 Yes 800mg Take 2 Unive rs oxide 400 4-04 tablets by ity of mg tablet 00:00: mouth 2 (two) Medical times Branch daily. magnesium 2017-0 Yes 800mg Take 2 Unive rs oxide 400 4-04 tablets by ity of mg tablet 00:00: mouth 2 (two) Medical times Branch daily. magnesium 2017-0 [...] ity of mg tablet 00:00: mouth 2 (two) Medical times Branch daily. magnesium 2017-0 Yes 800mg Take 2 Unive rs oxide 400 4-04 tablets by ity of mg tablet 00:00: mouth (two) Medical times Branch daily. ergocalcife ergocalcife No ergocalcif [facility] (vitamin (vitamin (vitamin D2) 1,250 D2) 1,250 [...] nasal mcg/actuat spray,suspe spray,suspe ion nasal nsion [place] nsion [place] spray,susp 1 spray 1 spray ension every day every day [place] 1 by nasal by nasal spray route [...] once a [facility] [place] via 8.4 gram [...] nasal mcg/actuat spray,suspe spray,suspe ion nasal nsion [place] nsion [place] spray,susp 1 spray 1 spray ension every day every day [place] 1 by nasal by nasal spray route [...] once a day dialysis dialysis at dialysis [place] via 8.4 gram [...] nasal mcg/actuat spray,suspe spray,suspe ion nasal nsion [place] nsion [place] spray,susp 1 spray 1 spray ension every day every day [place] 1 by nasal by nasal spray route [...] once a day dialysis dialysis at dialysis [place] via 8.4 [...] nasal mcg/actuat spray,suspe spray,suspe ion nasal nsion [place] nsion [place] spray,susp 1 spray 1 spray ension every day every day [place] 1 by nasal by nasal spray route [...] l route. ergocalcife ergocalcife No ergocalcif [facility] (vitamin (vitamin (vitamin D2) 1,250 D2) 1,250 [...] nasal mcg/actuat spray,suspe spray,suspe ion nasal nsion [place] nsion [place] spray,susp 1 spray 1 spray ension every day every day [place] 1 by nasal by nasal spray route [...] route for 30 days. aripiprazol aripiprazol No aripiprazo [facility] e 5 mg e 5 [...] nasal mcg/actuat spray,suspe spray,suspe ion nasal nsion [place] nsion [place] spray,susp 1 spray 1 spray ension every day every day [place] 1 by nasal by nasal spray route [...] DAYS) IS DAYS) S (NON-DIALY SIS DAYS) Ventolin Ventolin No Ventolin [place] via HFA 90 HFA 90 HFA 90 Medical mcg/actuati mcg/actuati mcg/actuat on aerosol on aerosol ion inhaler inhaler aerosol inhaler acetaminoph acetaminoph No 1 BID acetaminop [facility] [...] gram once a 1 gram day on day on MW once a day to [...] nasal mcg/actuat spray,suspe spray,suspe ion nasal nsion [place] nsion [place] spray,susp 1 spray 1 spray ension every day every day [place] 1 by nasal by nasal spray route [...] at once a day dialysis dialysis at [facility] [place] via 8.4 gram 8.4 gram [...] nasal mcg/actuat spray,suspe spray,suspe ion nasal nsion [place] nsion [place] spray,susp 1 spray 1 spray ension every day every day [place] 1 by nasal by nasal spray route [...] once a day dialysis dialysis at dialysis [place] via 8.4 [...] nasal mcg/actuat spray,suspe spray,suspe ion nasal nsion [place] nsion [place] spray,susp 1 spray 1 spray ension every day every day [place] 1 by nasal by nasal spray route [...] once a day [facility] [place] via 8.4 gram 8.4 [...] nasal mcg/actuat spray,suspe spray,suspe ion nasal nsion [place] nsion [place] spray,susp 1 spray 1 spray ension every day every day [place] 1 by nasal by nasal spray route [...] nasal mcg/actuat spray,suspe spray,suspe ion nasal nsion [place] nsion [place] spray,susp 1 spray 1 spray ension every day every day [place] 1 by nasal by nasal spray route [...] nasal mcg/actuat spray,suspe spray,suspe ion nasal nsion [place] nsion [place] spray,susp 1 spray 1 spray ension every day every day [place] 1 by nasal by nasal spray route [...] nasal mcg/actuat spray,suspe spray,suspe ion nasal nsion [place] nsion [place] spray,susp 1 spray 1 spray ension every day every day [place] 1 by nasal by nasal spray route [...] nasal mcg/actuat spray,suspe spray,suspe ion nasal nsion [place] nsion [place] spray,susp 1 spray 1 spray ension every day every day [place] 1 by nasal by nasal spray route [...] nasal mcg/actuat spray,suspe spray,suspe ion nasal nsion [place] nsion [place] spray,susp 1 spray 1 spray ension every day every day [place] 1 by nasal by nasal spray route [...] nasal mcg/actuat spray,suspe spray,suspe ion nasal nsion [place] nsion [place] spray,susp 1 spray 1 spray ension every day every day [place] 1 by nasal by nasal spray route [...] nasal mcg/actuat spray,suspe spray,suspe ion nasal nsion [place] nsion [place] spray,susp 1 spray 1 spray ension every day every day [place] 1 by nasal by nasal spray route [...] odd days Sun, Tues, Sun, Tues, Sun, , Thur, Sat Thur, Sat Thur, [...] nasal mcg/actuat spray,suspe spray,suspe ion nasal nsion [place] nsion [place] spray,susp 1 spray 1 spray ension every day every day [place] 1 by nasal by nasal spray route [...] nasal mcg/actuat spray,suspe spray,suspe ion nasal nsion [place] nsion [place] spray,susp 1 spray 1 spray ension every day every day [place] 1 by nasal by nasal spray route [...] nasal mcg/actuat spray,suspe spray,suspe ion nasal nsion [place] nsion [place] spray,susp 1 spray 1 spray ension every day every day [place] 1 by nasal by nasal spray route [...] nasal mcg/actuat spray,suspe spray,suspe ion nasal nsion [place] nsion [place] spray,susp 1 spray 1 spray ension every day every day [place] 1 by nasal by nasal spray route [...] nasal mcg/actuat spray,suspe spray,suspe ion nasal nsion [place] nsion [place] spray,susp 1 spray 1 spray ension every day every day [place] 1 by nasal by nasal spray route [...] nasal mcg/actuat spray,suspe spray,suspe ion nasal nsion [place] nsion [place] spray,susp 1 spray 1 spray ension every day every day [place] 1 by nasal by nasal spray route [...] nasal mcg/actuat spray,suspe spray,suspe ion nasal nsion [place] nsion [place] spray,susp 1 spray 1 spray ension every day every day [place] 1 by nasal by nasal spray route [...] nasal mcg/actuat spray,suspe spray,suspe ion nasal nsion [place] nsion [place] spray,susp 1 spray 1 spray ension every day every day [place] 1 by nasal by nasal spray route [...] days. 30 days. bedtime for 30 days. [facility] [place] via 8.4 gram 8.4 [...] nasal mcg/actuat spray,suspe spray,suspe ion nasal nsion [place] nsion [place] spray,susp 1 spray 1 spray ension every day every day [place] 1 by nasal by nasal spray route [...] days fri, thur, sat acetaminoph acetaminoph No acetaminop [facility] en [...] nasal mcg/actuat spray,suspe spray,suspe ion nasal nsion [place] nsion [place] spray,susp 1 spray 1 spray ension every day every day [place] 1 by nasal by nasal spray route [...] nasal mcg/actuat spray,suspe spray,suspe ion nasal nsion [place] nsion [place] spray,susp 1 spray 1 spray ension every day every day [place] 1 by nasal by nasal spray route [...] aspirin 81 [facility] mg mg mg Medical tablet,ojy tablet,joy tablet,del yed release yed release ayed [...] as needed. ergocalcife ergocalcife No ergocalcif [facility] (vitamin (vitamin (vitamin D2) 1,250 D2) 1,250 [...] nasal mcg/actuat spray,suspe spray,suspe ion nasal nsion [place] nsion [place] spray,susp 1 spray 1 spray ension every day every day [place] 1 by nasal by nasal spray route [...] nasal mcg/actuat spray,suspe spray,suspe ion nasal nsion [place] nsion [place] spray,susp 1 spray 1 spray ension every day every day [place] 1 by nasal by nasal spray route [...] once a day dialysis dialysis at dialysis [facility] No [facility] [place] via 8.4 gram 8.4 gram [...] Immunizations Ordered Filled Immunization Date Status Comments [facility] e Immunization Name Name pneumococcal, pneumococcal, [...] 2016-07-03 Completed University o f Polysaccharide, 00:00:00 [place] [facility] ical PPSV23 (PNEUMOVAX) Branch Influenza Virus 2016-07-03 Completed Universit y of Vaccine Quad IM 3+ 00:00:00 [facility] [place] [facility] Pneumococcal 2016-07-03 Completed University o f Polysaccharide, 00:00:00 [place] [facility] ical PPSV23 (PNEUMOVAX) Branch Influenza Virus 2016-07-03 Completed Universit y of Vaccine Quad IM 3+ 00:00:00 [facility] [place] [facility] Pneumococcal 2016-07-03 Completed University o f Polysaccharide, 00:00:00 [place] [facility] ical PPSV23 (PNEUMOVAX) Branch Influenza Virus 2016-07-03 Completed Universit y of Vaccine Quad IM 3+ 00:00:00 [facility] [place] [facility] Pneumococcal 2016-07-03 Completed University o f Polysaccharide, 00:00:00 [place] [facility] ical PPSV23 (PNEUMOVAX) Branch Influenza Virus 2016-07-03 Completed Universit y of Vaccine Quad IM 3+ 00:00:00 [facility] [place] [facility] Pneumococcal 2016-07-03 Completed University o f Polysaccharide, 00:00:00 [place] [facility] ical PPSV23 (PNEUMOVAX) Branch Influenza Virus 2016-07-03 Completed Universit y of Vaccine Quad IM 3+ 00:00:00 [facility] [place] [facility] Pneumococcal 2016-07-03 Completed University o f Polysaccharide, 00:00:00 [place] Med ical PPSV23 (PNEUMOVAX) Branch Influenza Virus 2016-07-03 Completed Universit y of Vaccine Quad IM 3+ 00:00:00 [facility] [place] [facility] Pneumococcal 2016-07-03 Completed University o f Polysaccharide, 00:00:00 [place] [facility] ical PPSV23 (PNEUMOVAX) Branch Influenza Virus 2016-07-03 Completed Universit y of Vaccine Quad IM 3+ 00:00:00 [facility] [place] [facility] Pneumococcal 2016-07-03 Completed University o f Polysaccharide, 00:00:00 [place] [facility] ical PPSV23 (PNEUMOVAX) Branch Influenza Virus 2016-07-03 Completed Universit y of Vaccine Quad IM 3+ 00:00:00 [facility] [place] [facility] Pneumococcal 2016-07-03 Completed University o f Polysaccharide, 00:00:00 [place] [facility] ical PPSV23 (PNEUMOVAX) Branch Influenza Virus 2016-07-03 Completed Universit y of Vaccine Quad IM 3+ 00:00:00 [facility] [place] [facility] Vital Signs Vital Name Observation Time Observation Value Comments Source Systolic blood 2022-05-28 09:31:00 107 mm[Hg] Univer sity of pressure [facility] Diastolic blood 2022-05-28 09:31:00 38 mm[Hg] Unive rsity of pressure [facility] Heart rate 2022-05-28 09:31:00 96 /min [facility] Body temperature 2022-05-28 09:31:00 37.11 [facility] Res[facility] rate 2022-05-28 09:31:00 18 /min [facility] Oxygen saturation in 2022-05-28 09:31:00 96 /min [facility] Arterial blood by [place] [facility] Pulse oximetry Branch Body weight 2022-05-27 23:46:00 71 kg [facility] BMI 2022-05-27 23:46:00 23.80 kg/m2 [facility] Body height 2022-05-15 21:25:00 172.7 cm Universi [facility] Systolic blood 2022-05-22 14:30:00 115 mm[Hg] Univer sity of [facility] Diastolic blood 2022-05-22 14:30:00 80 mm[Hg] Unive rsity of [facility] Heart rate 2022-05-22 14:30:00 82 /min [facility] Body temperature 2022-05-22 14:30:00 36.22 [facility] 2022-05-22 14:30:00 20 /min [facility] Oxygen saturation in 2022-05-22 10:17:00 99 /min [facility] Arterial blood by [facility] Pulse oximetry Branch Body weight 2022-05-21 17:05:00 69 kg [facility] BMI 2022-05-21 17:05:00 23.97 kg/m2 [facility] Body height 2022-05-15 21:25:00 172.7 cm [facility] BP Diastolic 2022-04-30 00:00:00 89 mm[Hg] [facility] Height 2022-04-30 00:00:00 66 [in_i] [facility] BMI (Body Mass 2022-04-30 00:00:00 27.8 kg/m2 [facility] Medical Index) BP Systolic 2022-04-30 00:00:00 155 mm[Hg] [facility] Body Weight 2022-04-30 00:00:00 2752 [oz_av] [facility] ed[facility] BP Diastolic 2022-04-16 00:00:00 82 mm[Hg] [facility] Height 2022-04-16 00:00:00 66 [in_i] [facility] BMI (Body Mass 2022-04-16 00:00:00 27.1 kg/m2 [facility] Medical Index) BP Systolic 2022-04-16 00:00:00 147 mm[Hg] [facility] Body Weight 2022-04-16 00:00:00 2688 [oz_av] [facility] BP Diastolic 2022-04-02 00:00:00 97 mm[Hg] [facility] Height 2022-04-02 00:00:00 66 [in_i] [facility] BMI (Body Mass 2022-04-02 00:00:00 28.4 kg/m2 [facility] Medical Index) BP Systolic 2022-04-02 00:00:00 157 mm[Hg] [facility] Body Weight 2022-04-02 00:00:00 2816 [oz_av] [facility] ed[facility] BP Diastolic 2022-03-12 00:00:00 88 mm[Hg] [facility] Height 2022-03-12 00:00:00 66 [in_i] [facility] BMI (Body Mass 2022-03-12 00:00:00 [facility]8 [facility] BP Systolic 2022-03-12 00:00:00 139 mm[Hg] Jimmy M ed[facility] Body Weight 2022-03-12 00:00:00 2656 [oz_av] [facility] ed[facility] BP Diastolic 2022-03-05 00:00:00 85 mm[Hg] [facility] Height 2022-03-05 00:00:00 66 [in_i] [facility] BMI (Body Mass 2022-03-05 00:00:00 27.8 kg/m2 [facility] BP Systolic 2022-03-05 00:00:00 158 mm[Hg] [facility] ed[facility] Body Weight 2022-03-05 00:00:00 2752 [oz_av] [facility] BP Diastolic 2022-02-19 00:00:00 79 mm[Hg] [facility] Height 2022-02-19 00:00:00 66 [in_i] [facility] BMI (Body Mass 2022-02-19 00:00:00 27.9 kg/m2 [facility] BP Systolic 2022-02-19 00:00:00 152 mm[Hg] [facility] Body Weight 2022-02-19 00:00:00 2768 [oz_av] [facility] M ed[facility] BP Diastolic 2022-02-05 00:00:00 80 mm[Hg] [facility] Height 2022-02-05 00:00:00 66 [in_i] [facility] M ed[facility] BMI (Body Mass 2022-02-05 00:00:00 27.8 kg/m2 [facility] Medical Index) BP Systolic 2022-02-05 00:00:00 144 mm[Hg] [facility] ed[facility] Body Weight 2022-02-05 00:00:00 2752 [oz_av] [facility] BP Diastolic 2022-01-18 00:00:00 77 mm[Hg] [facility] ed[facility] Height 2022-01-18 00:00:00 66 [in_i] [facility] M edical BMI (Body Mass 2022-01-18 00:00:00 27.3 kg/m2 [facility] Medical Index) BP Systolic 2022-01-18 00:00:00 138 mm[Hg] [facility] M ed[facility] Body Weight 2022-01-18 00:00:00 2704 [oz_av] [facility] BP Diastolic 2022-01-04 00:00:00 89 mm[Hg] [facility] M ed[facility] Height 2022-01-04 00:00:00 66 [in_i] [facility] M edical BMI (Body Mass 2022-01-04 00:00:00 28.1 kg/m2 [facility] Medical Index) BP Systolic 2022-01-04 00:00:00 149 mm[Hg] [facility] M ed[facility] Body Weight 2022-01-04 00:00:00 2784 [oz_av] [facility] Systolic blood 2021-12-25 18:44:00 146 mm[Hg] Univer sity of pressure [facility] Diastolic blood 2021-12-25 18:44:00 96 mm[Hg] Unive rsity of pressure [facility] Heart rate 2021-12-25 18:44:00 70 /min [facility] Body height 2021-12-25 18:34:00 172.7 cm [facility] Body weight 2021-12-25 18:34:00 80.423 kg [facility] BMI 2021-12-25 18:34:00 26.96 kg/m2 [facility] Oxygen saturation in 2021-12-25 18:34:00 97 /min [facility] of Arterial blood by [place] [facility] Pulse oximetry Branch BP Diastolic 2021-12-25 00:00:00 75 mm[Hg] [facility] Height 2021-12-25 00:00:00 66 [in_i] [facility] BMI (Body Mass 2021-12-25 00:00:00 28.4 kg/m2 [facility] BP Systolic 2021-12-25 00:00:00 147 mm[Hg] [facility] Body Weight 2021-12-25 00:00:00 2816 [oz_av] [facility] BP Diastolic 2021-12-11 00:00:00 89 mm[Hg] [facility] Height 2021-12-11 00:00:00 66 [in_i] [facility] BMI (Body Mass 2021-12-11 00:00:00 28.2 kg/m2 [facility] BP Systolic 2021-12-11 00:00:00 139 mm[Hg] [facility] Body Weight 2021-12-11 00:00:00 2792 [oz_av] [facility] BP Diastolic 2021-11-23 00:00:00 67 mm[Hg] [facility] ed[facility] Height 2021-11-23 00:00:00 66 [in_i] [facility] BMI (Body Mass 2021-11-23 00:00:00 27.8 kg/m2 [facility] BP Systolic 2021-11-23 00:00:00 134 mm[Hg] [facility] Body Weight 2021-11-23 00:00:00 2752 [oz_av] [facility] BP Diastolic 2021-11-20 00:00:00 85 mm[Hg] [facility] M ed[facility] Height 2021-11-20 00:00:00 66 [in_i] [facility] BMI (Body Mass 2021-11-20 00:00:00 27.9 kg/m2 [facility] BP Systolic 2021-11-20 00:00:00 149 mm[Hg] [facility] Body Weight 2021-11-20 00:00:00 2768 [oz_av] [facility] BP Diastolic 2021-11-08 00:00:00 95 mm[Hg] [facility] Height 2021-11-08 00:00:00 66 [in_i] [facility] BMI (Body Mass 2021-11-08 00:00:00 27.8 kg/m2 [facility]) BP Systolic 2021-11-08 00:00:00 165 mm[Hg] [facility] Body Weight 2021-11-08 00:00:00 2752 [oz_av] [facility] BP Diastolic 2021-11-02 00:00:00 75 mm[Hg] [facility] Height 2021-11-02 00:00:00 66 [in_i] [facility] BMI (Body Mass 2021-11-02 00:00:00 27.4 kg/m2 [facility] BP Systolic 2021-11-02 00:00:00 138 mm[Hg] [facility] Body Weight 2021-11-02 00:00:00 2720 [oz_av] [facility] ed[facility] BP Diastolic 2021-10-19 00:00:00 77 mm[Hg] [facility] Height 2021-10-19 00:00:00 66 [in_i] [facility] BMI (Body Mass 2021-10-19 00:00:00 28.2 kg/m2 [facility]) BP Systolic 2021-10-19 00:00:00 136 mm[Hg] [facility] Body Weight 2021-10-19 00:00:00 2800 [oz_av] [facility] BP Diastolic 2021-10-12 00:00:00 74 mm[Hg] [facility] Height 2021-10-12 00:00:00 66 [in_i] [facility] BMI (Body Mass 2021-10-12 00:00:00 28.2 kg/m2 [facility] BP Systolic 2021-10-12 00:00:00 139 mm[Hg] [facility] Body Weight 2021-10-12 00:00:00 2800 [oz_av] [facility] BP Diastolic 2021-10-02 00:00:00 75 mm[Hg] [facility] Height 2021-10-02 00:00:00 66 [in_i] [facility] BMI (Body Mass 2021-10-02 00:00:00 29.4 kg/m2 [facility] Medical Index) BP Systolic 2021-10-02 00:00:00 139 mm[Hg] [facility] Body Weight 2021-10-02 00:00:00 2912 [oz_av] [facility] BP Diastolic 2021-09-26 00:00:00 89 mm[Hg] [facility] Height 2021-09-26 00:00:00 66 [in_i] [facility] BMI (Body Mass 2021-09-26 00:00:00 29.4 kg/m2 [facility] BP Systolic 2021-09-26 00:00:00 135 mm[Hg] [facility] Body Weight 2021-09-26 00:00:00 2912 [oz_av] [facility] BP Diastolic 2021-09-13 00:00:00 92 mm[Hg] [facility] Height 2021-09-13 00:00:00 66 [in_i] [facility] BMI (Body Mass 2021-09-13 00:00:00 13.2 kg/m2 [facility]) BP Systolic 2021-09-13 00:00:00 153 mm[Hg] [facility] Body Weight 2021-09-13 00:00:00 1304 [oz_av] [facility] BP Diastolic 2021-09-04 00:00:00 78 mm[Hg] [facility] Height 2021-09-04 00:00:00 66 [in_i] [facility] BMI (Body Mass 2021-09-04 00:00:00 28.9 kg/m2 [facility]) BP Systolic 2021-09-04 00:00:00 136 mm[Hg] [facility] Body Weight 2021-09-04 00:00:00 2864 [oz_av] [facility] BP Diastolic 2021-08-22 00:00:00 77 mm[Hg] [facility] Height 2021-08-22 00:00:00 66 [in_i] [facility] BMI (Body Mass 2021-08-22 00:00:00 29.5 kg/m2 [facility] Medical Index) BP Systolic 2021-08-22 00:00:00 134 mm[Hg] [facility] Body Weight 2021-08-22 00:00:00 2928 [oz_av] [facility] BP Diastolic 2021-08-14 00:00:00 66 mm[Hg] [facility] Height 2021-08-14 00:00:00 66 [in_i] [facility] BMI (Body Mass 2021-08-14 00:00:00 29.5 kg/m2 [facility] Medical Index) BP Systolic 2021-08-14 00:00:00 136 mm[Hg] [facility] Body Weight 2021-08-14 00:00:00 2928 [oz_av] [facility] BP Diastolic 2021-08-10 00:00:00 75 mm[Hg] [facility] Height 2021-08-10 00:00:00 66 [in_i] [facility] BMI (Body Mass 2021-08-10 00:00:00 29.2 kg/m2 [facility] Medical Index) BP Systolic 2021-08-10 00:00:00 131 mm[Hg] [facility] Body Weight 2021-08-10 00:00:00 2896 [oz_av] [facility] BP Diastolic 2021-07-31 00:00:00 78 mm[Hg] [facility] Height 2021-07-31 00:00:00 66 [in_i] [facility] BMI (Body Mass 2021-07-31 00:00:00 28.6 kg/m2 [facility] BP Systolic 2021-07-31 00:00:00 137 mm[Hg] [facility] Body Weight 2021-07-31 00:00:00 2832 [oz_av] [facility] BP Diastolic 2021-07-27 00:00:00 75 mm[Hg] [facility] Height 2021-07-27 00:00:00 66 [in_i] [facility] BMI (Body Mass 2021-07-27 00:00:00 29.7 kg/m2 [facility] Medical Index) BP Systolic 2021-07-27 00:00:00 133 mm[Hg] [facility] Body Weight 2021-07-27 00:00:00 2944 [oz_av] [facility] BP Diastolic 2021-07-19 00:00:00 88 mm[Hg] [facility] Height 2021-07-19 00:00:00 66 [in_i] [facility] BMI (Body Mass 2021-07-19 00:00:00 29.5 kg/m2 [facility] Medical Index) BP Systolic 2021-07-19 00:00:00 140 mm[Hg] [facility] Body Weight 2021-07-19 00:00:00 2928 [oz_av] [facility] BP Diastolic 2021-07-12 00:00:00 80 mm[Hg] [facility] Height 2021-07-12 00:00:00 66 [in_i] [facility] BMI (Body Mass 2021-07-12 00:00:00 29.5 kg/m2 [facility] Medical Index) BP Systolic 2021-07-12 00:00:00 136 mm[Hg] [facility] Body Weight 2021-07-12 00:00:00 2928 [oz_av] [facility] Height 2019-02-20 00:00:00 68 [in_i] [facility] Height 2018-11-13 00:00:00 68 [in_i] [facility] Height 2018-10-25 00:00:00 68 [in_i] [facility] Height 2018-09-04 00:00:00 68 [in_i] [facility] Systolic blood 2022-05-17 17:35:00 121 mm[Hg] Univer sity of pressure [facility] Diastolic blood 2022-05-17 17:35:00 59 mm[Hg] Unive rsity of pressure [facility] Heart rate 2022-05-17 17:35:00 74 /min [facility] Body temperature 2022-05-17 17:35:00 35.72 Lazara Univ ersity [facility] Respiratory rate 2022-05-17 17:35:00 18 /min [facility] Oxygen saturation in 2022-05-17 17:35:00 100 /min University Arterial blood by [facility] Pulse oximetry Branch Body weight 2022-05-17 00:46:00 69 kg [facility] BMI 2022-05-17 00:46:00 23.13 kg/m2 [facility] Body height 2022-05-15 21:25:00 172.7 cm [facility] Body height 2022-01-22 19:04:00 172.7 cm [facility] Body weight 2022-01-22 19:04:00 78.2 kg [facility] BMI 2022-01-22 19:04:00 26.21 kg/m2 [facility] Oxygen saturation in 2022-01-22 19:04:00 95 /min [facility] Arterial blood by Pulse oximetry Systolic blood 2022-01-22 19:04:00 146 mm[Hg] [facility] pressure Diastolic blood 2022-01-22 19:04:00 81 mm[Hg] [facility] pressure Heart rate 2022-01-22 19:04:00 85 /min [facility] Body temperature 2022-01-22 19:04:00 36.56 Lazara [facility] Oxygen saturation in 2021-12-18 20:47:00 98 /min [facility] Arterial blood by Pulse oximetry Systolic blood 2021-12-18 20:16:00 152 mm[Hg] [facility] pressure Diastolic blood 2021-12-18 20:16:00 75 mm[Hg] [facility] pressure Heart rate 2021-12-18 20:16:00 82 /min [facility] Body temperature 2021-12-18 16:16:11 36.72 Lazara [facility] Respiratory rate 2021-12-18 16:16:11 18 /min [facility] Body weight 2021-12-18 11:11:31 85.14 kg [facility] BMI 2021-12-18 11:11:31 28.54 kg/m2 [facility] Body height 2021-12-13 19:32:00 172.7 cm [facility] Procedures Procedure Date / Time Performing Clinician Source Performed CBC WITHOUT DIFF 2022-05-28 12:52:00 [facility] XR CHEST 1 VW 2022-05-27 12:31:00 [facility] PHOSPHORUS 2022-05-27 11:56:00 [facility] MAGNESIUM 2022-05-27 11:56:00 [facility] BASIC METABOLIC PANEL (NA, 2022-05-27 11:56:00 Mike Ortiz [facility] K, CL, CO2, GLUCOSE, BUN, Medica [facility] CREATININE, CA) CBC WITHOUT DIFF 2022-05-27 11:56:00 [facility] SERUM DRUG (IMMUNOASSAY) - 2022-05-26 22:11:00 Shanika Carranza [facility] COMPREHENSIVE DRUG SCREEN [facility] PHOSPHORUS 2022-05-26 11:48:00 Alfred [facility] MAGNESIUM 2022-05-26 11:48:00 Alfred [facility] BASIC METABOLIC PANEL (NA, 2022-05-26 11:48:00 [facility], CO2, GLUCOSE, BUN, Kayla [facility] CREATININE, CA) CBC WITH DIFF 2022-05-26 11:48:00 Alfred [facility] XR CHEST 1 VW 2022-05-25 21:48:00 Carly [facility] CBC WITH DIFF 2022-05-25 21:30:00 Caryl [facility] EXTRA TUBE DK. GREEN 2022-05-25 21:27:00 Jean-Claude Cohen [facility] PHOSPHORUS 2022-05-25 21:24:00 Caryl [facility] MAGNESIUM 2022-05-25 21:24:00 Caryl [facility] TROPONIN I 2022-05-25 21:24:00 Caryl [facility] BASIC METABOLIC PANEL (NA, 2022-05-25 21:24:00 Mary Kay Hutson [facility] K, CL, CO2, GLUCOSE, BUN, Medica l Branch CREATININE, CA) D-DIMER 2022-05-25 21:24:00 Caryl [facility] ABG+COOX+NA+K+GLU+CA2+ 2022-05-25 21:10:[address] Jean-Cla[address] Cohen [facility] HB ECG ROUTINE & RHYTHM 2022-05-25 21:09:50 Caryl Mary Kay [facility] POCT GLUCOSE (AUTOMATED) 2022-05-25 20:48:[address] Jean-Cla[address] Cohen [facility] PREPARE PACKED RBC 2022-05-25 20:12:38 Vickie Simon [facility] BASIC METABOLIC PANEL (NA, 2022-05-25 18:54:00 Jamari Simon [facility] K, CL, CO2, GLUCOSE, BUN, Kayla Medica l Branch CREATININE, CA) CBC WITH DIFF 2022-05-25 18:54:00 Vickie Simon [facility] XR CHEST 1 VW 2022-05-25 12:21:00 Vickie Simon [facility] PHOSPHORUS 2022-05-25 11:11:00 Vickie Simon [facility] MAGNESIUM 2022-05-25 11:11:00 Vickie Simon [facility] BASIC METABOLIC PANEL (NA, 2022-05-25 11:11:00 Jamari Simon [facility] K, CL, CO2, GLUCOSE, BUN, Kayla Medica l Branch CREATININE, CA) CBC WITH DIFF 2022-05-25 11:11:00 Alfred Vickie [facility] XR CHEST 1 VW 2022-05-24 12:33:00 Aurelia Simonbeth [facility] PHOSPHORUS 2022-05-24 11:26:00 Mike Ortiz [facility] MAGNESIUM 2022-05-24 11:26:00 Angel [facility] BASIC METABOLIC PANEL (NA, 2022-05-24 11:26:00 Angel Mike U [facility] K, CL, CO2, GLUCOSE, BUN, [facility] CREATININE, CA) CBC WITHOUT DIFF 2022-05-24 11:25:00 Angel [facility] POCT GLUCOSE (AUTOMATED) 2022-05-24 10:48:[address] Jean-Claude Cohen [facility] POCT GLUCOSE (AUTOMATED) 2022-05-24 10:19:00 Jean-Claude Cohen [facility] XR CHEST 1 2022-05-23 11:06:00 Angel [facility] XR CHEST 1 2022-05-23 11:06:00 [facility] XR CHEST 1 2022-05-22 20:50:00 Angel [facility] XR CHEST 1 2022-05-22 20:50:00 Angel [facility] TISSUE 2022-05-22 17:11:00 Jean-Claude Cohen [facility] CULTURE(AEROBIC/ANAEROBIC) [facility] FUNGUS (ROUTINE) CULTURE 2022-05-22 17:11:00 Aldo [facility] FUNGUS (ROUTINE) CULTURE 2022-05-22 17:11:[address] Jean-Cla[address] Cohen [facility] TISSUE 2022-05-22 17:11:00 Aldo [facility] CULTURE(AEROBIC/ANAEROBIC) Medic al Branch DECORTICATION 2022-05-22 14:30:00 Aldo [facility] ROBOT-ASSISTED LUNG Medical Bran ch DECORTICATION 2022-05-22 14:30:00 Aldo [facility] ROBOT-ASSISTED LUNG Medical Bran ch HB ABO GROUPING 2022-05-22 11:55:00 Alfred [facility] HB ABO GROUPING 2022-05-22 11:55:00 Alfred [facility] PHOSPHORUS 2022-05-22 11:54:00 O'Shan, Vickie [facility] MAGNESIUM 2022-05-22 11:54:00 Vickie Simon [facility] BASIC METABOLIC PANEL (NA, 2022-05-22 11:54:00 Jamari Simon [facility] K, CL, CO2, GLUCOSE, BUN, Kayla Medica l Branch CREATININE, CA) CBC WITH DIFF 2022-05-22 11:54:00 Vickie Simon [facility] PROTHROMBIN TIME / INR 2022-05-22 11:54:00 Vickie Simon [facility] PHOSPHORUS 2022-05-22 11:54:00 Vickie Simon [facility] MAGNESIUM 2022-05-22 11:54:00 Vickie Simon [facility] BASIC METABOLIC PANEL (NA, 2022-05-22 11:54:00 Jamari Simon [facility] K, CL, CO2, GLUCOSE, BUN, Kayla Medica l Branch CREATININE, CA) CBC WITH DIFF 2022-05-22 11:54:00 Vickie Simon [facility] PROTHROMBIN TIME / INR 2022-05-22 11:54:00 Vickie Simon [facility] CBC WITHOUT DIFF 2022-05-20 20:04:00 Angel [facility] PROTHROMBIN TIME / INR 2022-05-20 20:04:00 [facility] CBC WITHOUT DIFF 2022-05-20 20:04:00 Angel [facility] PROTHROMBIN TIME / INR 2022-05-20 20:04:[address] [facility] CT ABDOMEN PELVIS W 2022-05-20 17:53:46 [facility] 2022-05-20 17:53:46 [facility]ST 2 VW 2022-05-20 16:09:00 Aldo [facility] XR CHEST 2 VW 2022-05-20 16:09:00 Aldo [facility] ABORH CONFIRMATION (LAB 2022-05-19 20:00:00 [facility] ONLY) Medical Branch ABORH CONFIRMATION (LAB 2022-05-19 20:00:00 [facility] ONLY) Medical Branch HB ABO GROUPING 2022-05-19 18:05:00 [facility] HB ABO GROUPING 2022-05-19 18:05:00 [facility] PHOSPHORUS 2022-05-19 11:23:00 Dandre [facility] MAGNESIUM 2022-05-19 11:23:00 Dandre [facility] BASIC METABOLIC PANEL (NA, 2022-05-19 11:23:00 Alberto Amos [facility] K, CL, CO2, GLUCOSE, BUN, Medica l Branch CREATININE, CA) INTACT PTH CALCIUM GROUP 2022-05-19 11:23:[address] [facility] PHOSPHORUS 2022-05-19 11:23:00 [facility]22-05-19 11:23:00 Dandre [facility] BASIC METABOLIC PANEL (NA, 2022-05-19 11:23:00 Alberto Amos [facility] K, CL, CO2, GLUCOSE, BUN, Medica l Branch CREATININE, CA) INTACT PTH CALCIUM GROUP 2022-05-19 11:23:[address] [facility] CT THORAX WO CONTRAST 2022-05-19 04:22:28 [facility]to [facility] THORAX WO CONTRAST 2022-05-19 04:22:28 Alberto [facility]os [facility] XR CHEST 1 VW 2022-05-18 15:09:00 Dandre [facility] XR CHEST 1 2022-05-18 15:09:00 Dandre [facility] COMP. METABOLIC PANEL 2022-05-17 11:28:00 Antonia Nation [facility] ([id number]) Medical Branch CBC WITH DIFF 2022-05-17 11:28:00 Antonia Nation [facility] PHOSPHORUS 2022-05-17 11:28:00 Dandre [facility] COMP. METABOLIC PANEL 2022-05-17 11:28:00 Antonia Nation [facility] ([id number]) Medical Branch CBC WITH DIFF 2022-05-17 11:28:00 [facility] 2022-05-17 11:28:00 Dandre [facility] COMP. METABOLIC PANEL 2022-05-17 11:28:00 Antonia Nation [facility] ([id number]) Medical Branch CBC WITH DIFF 2022-05-17 11:28:00 Antonia Nation [facility] CT ANGIOGRAPHY, DOUBLE 2022-05-16 16:05:44 Antonia Nation [facility] [place] RULE OUT (THORACIC AO / Medical Branch PE) CT ANGIOGRAPHY, DOUBLE 2022-05-16 16:05:44 Antonia Nation [facility] [place] RULE OUT (THORACIC AO / Medical Branch PE) CT ANGIOGRAPHY, DOUBLE 2022-05-16 16:05:44 Antonia Nation [facility] [place] RULE OUT (THORACIC AO / Medical Branch PE) BASIC METABOLIC PANEL (NA, 2022-05-16 11:17:00 Antonia [facility] [place] K, CL, CO2, GLUCOSE, BUN, Medica l Branch CREATININE, CA) CBC WITH DIFF 2022-05-16 11:17:00 Antonia Nation [facility] BASIC METABOLIC PANEL (NA, 2022-05-16 11:17:00 Antonia [facility] [place] K, CL, CO2, GLUCOSE, BUN, Medica l Branch CREATININE, CA) CBC WITH DIFF 2022-05-16 11:17:00 [facility] BASIC METABOLIC PANEL (NA, 2022-05-16 11:17:00 RiosAyaza [facility] [place] K, CL, CO2, GLUCOSE, BUN, Medica l Branch CREATININE, CA) CBC WITH DIFF 2022-05-16 11:17:00 Antonia Nation [facility] IR REPLACEMENT COMPLETE 2022-05-16 00:03:00 Antonia Nation [facility] [place] TUNNELED CENTRALLY Medical Branc h INSERTED CVC WITHOUT PORT/PUMP SAME ACCESS IR REPLACEMENT COMPLETE 2022-05-16 00:03:00 Antonia Nation [facility] [place] TUNNELED CENTRALLY Medical Branc h INSERTED CVC WITHOUT PORT/PUMP SAME ACCESS IR REPLACEMENT COMPLETE 2022-05-16 00:03:00 Antonia Nation [facility] [place] TUNNELED CENTRALLY Medical Branc h INSERTED CVC WITHOUT PORT/PUMP SAME ACCESS BASIC METABOLIC PANEL (NA, 2022-05-15 11:05:00 RiosAntonia [facility] [place] K, CL, CO2, GLUCOSE, BUN, Medica l Branch CREATININE, CA) MAGNESIUM 2022-05-15 11:05:00 [facility]andre [facility] MAGNESIUM 2022-05-15 11:05:00 Dandre [facility] BASIC METABOLIC PANEL (NA, 2022-05-15 11:05:00 RiosAprilAntonia [facility] [place] K, CL, CO2, GLUCOSE, BUN, Medica l Branch CREATININE, CA) MAGNESIUM 2022-05-15 11:05:00 Dandre [facility] BASIC METABOLIC PANEL (NA, 2022-05-15 11:05:00 Rios, Antonia [facility] [place] K, CL, CO2, GLUCOSE, BUN, Medica l Branch CREATININE, CA) BASIC METABOLIC PANEL (NA, 2022-05-14 22:08:00 Rios, [facility]ia [facility] [place] K, CL, CO2, GLUCOSE, BUN, Medica l Branch CREATININE, CA) BASIC METABOLIC PANEL (NA, 2022-05-14 22:08:00 Rios, Antonia [facility] [place] K, CL, CO2, GLUCOSE, BUN, Medica l Branch CREATININE, CA) BASIC METABOLIC PANEL (NA, 2022-05-14 22:08:00 RiosAyaza [facility] [place] K, CL, CO2, GLUCOSE, BUN, Medica l Branch CREATININE, CA) BASIC METABOLIC PANEL (NA, 2022-05-14 10:43:00 RiosAntonia [facility] [place] K, CL, CO2, GLUCOSE, BUN, Medica l Branch CREATININE, CA) CBC WITH DIFF 2022-05-14 10:43:00 Rios [facility] MAGNESIUM 2022-05-14 10:43:00 Rios [facility] MAGNESIUM 2022-05-14 10:43:00 Rios, [facility] BASIC METABOLIC PANEL (NA, 2022-05-14 10:43:00 RiosAntonia [facility] [place] K, CL, CO2, GLUCOSE, BUN, Medica l Branch CREATININE, CA) CBC WITH DIFF 2022-05-14 10:43:00 Rios [facility] MAGNESIUM 2022-05-14 10:43:00 Rios, [facility] BASIC METABOLIC PANEL (NA, 2022-05-14 10:43:00 Antonia [facility] [place] K, CL, CO2, GLUCOSE, BUN, Medica l Branch CREATININE, CA) CBC WITH DIFF 2022-05-14 10:43:00 Rios [facility] XR CHEST 1 VW 2022-05-14 04:09:52 Abbi [facility] XR CHEST 1 VW 2022-05-14 04:09:52 Abbi [facility] XR CHEST 1 VW 2022-05-14 04:09:52 Abbi [facility] GLUCOSE 2022-05-13 22:41:00 Delmi [facility] LACTATE DEHYDROGENASE 2022-05-13 22:41:[address] [facility] PROTEIN TOTAL 2022-05-13 22:41:00 Awad, [facility] GLUCOSE 2022-05-13 22:41:00 Delmi [facility] PROTEIN TOTAL 2022-05-13 22:41:00 Delmi [facility] LACTATE DEHYDROGENASE 2022-05-13 22:41:00 Delmi [facility] GLUCOSE 2022-05-13 22:41:00 Delmi [facility] PROTEIN TOTAL 2022-05-13 22:41:00 Delmi [facility] LACTATE DEHYDROGENASE 2022-05-13 22:41:00 Delmi [facility] XR CHEST 1 2022-05-13 17:52:00 Weston [facility] XR CHEST 1 2022-05-13 17:52:00 Weston [facility] XR CHEST 1 2022-05-13 17:52:00 Weston [facility] PH, BODY FLUID 2022-05-13 17:30:00 Delmi [facility] BODY FLUID FUNGUS CULTURE 2022-05-13 17:30:00 Wesley Ontiveros [facility] (BACTEC BOTTLE) [facility] PH, BODY FLUID 2022-05-13 17:30:00 Delmi [facility] BODY FLUID FUNGUS CULTURE 2022-05-13 17:30:00 Wesley Ontiveros [facility] (BACTEC BOTTLE) [facility] PH, BODY FLUID 2022-05-13 17:30:00 Delmi [facility] BODY FLUID FUNGUS CULTURE 2022-05-13 17:30:00 Wesley Ontiveros [facility] (BACTEC BOTTLE) [facility] BODY FLUID MANUAL DIFF 2022-05-13 15:12:00 Delmi [facility] CYTO PLEURAL FLUID 2022-05-13 15:12:00 Delmi [facility] BODY FLUID (BACTEC BOTTLE) 2022-05-13 15:12:00 Wesley Ontiveros [facility] BODY FLUID DIRECT COUNT 2022-05-13 15:12:00 AwadStefan nolascodwain [facility] of [facility] BODY FLUID (BACTEC BOTTLE) 2022-05-13 15:12:00 [facility] CYTO PLEURAL FLUID 2022-05-13 15:12:00 [facility] BODY FLUID DIRECT COUNT 2022-05-13 15:12:00 Stefan [facility]ain [facility] BODY FLUID (BACTEC BOTTLE) 2022-05-13 15:12:00 [facility] CYTO PLE[facility] FLUID 2022-05-13 15:12:00 Delmi [facility] SERUM DRUG (IMMUNOASSAY) - 2022-05-13 11:19:00 Alberto Amos [facility] COMPREHENSIVE DRUG SCREEN Medica l Branch COMP. METABOLIC PANEL 2022-05-13 11:19:00 Antonia Nation [facility] ([id number]) Medical Branch PHOSPHORUS 2022-05-13 11:19:00 Antonia Nation [facility] PROTHROMBIN TIME / INR 2022-05-13 11:19:00 [facility] ACTIVATED PARTIAL THRMPLAS 2022-05-13 11:19:00 Antonia Nation [facility] PHOSPHORUS 2022-05-13 11:19:00 Antonia Nation [facility] COMP. METABOLIC PANEL 2022-05-13 11:19:00 Antonia Nation [facility] ([id number]) [facility] SERUM DRUG (IMMUNOASSAY) - 2022-05-13 11:19:00 [facility] COM[facility]ENSIVE [facility]UG SCREEN Medica l Branch PROTHROMBIN TIME / INR 2022-05-13 11:19:[address] [facility] ACTIVATED PARTIAL THRMPLAS 2022-05-13 11:19:00 Antonia Nation [facility] PHOSPHORUS 2022-05-13 11:19:00 Antonia Nation [facility] COMP. METABOLIC PANEL 2022-05-13 11:19:00 Antonia Nation [facility] ([id number]) [facility] SERUM DRUG (IMMUNOASSAY) - 2022-05-13 11:19:00 Alberto Amos [facility] COMPREHENSIVE DRUG SCREEN Medica l Branch PROTHROMBIN TIME / INR 2022-05-13 11:19:[address] [facility] ACTIVATED PARTIAL THRMPLAS 2022-05-13 11:19:00 Antonia Nation [facility] CT THORAX W CONTRAST 2022-05-12 15:32:00 Antonia Nation [facility] CT THORAX W CONTRAST 2022-05-12 15:32:00 Antonia Nation [facility] CT THORAX W CONTRAST 2022-05-12 15:32:00 Antonia Nation [facility] CBC WITH DIFF 2022-05-11 10:43:00 Alberto Amos [facility] BASIC METABOLIC PANEL (NA, 2022-05-11 10:43:00 Alberto Amos [facility] K, CL, CO2, GLUCOSE, BUN, Medica l Branch CREATININE, CA) MAGNESIUM 2022-05-11 10:43:00 Alberto Amos [facility] PHOSPHORUS 2022-05-11 10:43:00 Antonia Nation [facility] PHOSPHORUS 2022-05-11 10:43:00 [facility] MAG[facility]UM 2022-05-11 10:43:00 Alberto Amos [facility] BASIC METABOLIC PANEL (NA, 2022-05-11 10:43:00 Alberto Amos [facility] K, CL, CO2, GLUCOSE, BUN, Medica l Branch CREATININE, CA) CBC WITH DIFF 2022-05-11 10:43:00 [facility] 2022-05-11 10:43:00 [facility] MAGN[facility]UM 2022-05-11 10:43:00 Dandre [facility] BASIC METABOLIC PANEL (NA, 2022-05-11 10:43:00 [facility], CO2, GLUCOSE, BUN, Medica l Branch CREATININE, CA) CBC WITH DIFF 2022-05-11 10:43:00 Dandre [facility] TRANSTHORACIC ECHO (TTE) 2022-05-10 17:06:05 Abbi, [facility] TRANSTHORACIC ECHO (TTE) 2022-05-10 17:06:05 Abbi, [facility] TRANSTHORACIC ECHO (TTE) 2022-05-10 17:06:05 Abbi, [facility] MRSA / MSSA SCREEN BY PCR, 2022-05-10 12:27:00 Fr[facility] MRSA / MSSA SCREEN BY PCR, 2022-05-10 12:27:00 [facility] MRSA / MSSA SCREEN BY PCR, 2022-05-10 12:27:00 Fr[facility] VITAMIN D, 25-OH 2022-05-10 12:20:00 Abbi, [facility] VITAMIN D, 25-OH 2022-05-10 12:20:00 Abbi, [facility] VITAMIN D, 25-OH 2022-05-10 12:20:00 Abbi, [facility] BASIC METABOLIC PANEL (NA, 2022-05-10 12:19:00 Abbi, [facility] K, CL, CO2, GLUCOSE, BUN, Medica l Branch CREATININE, CA) MAGNESIUM 2022-05-10 12:19:00 Abbi, [facility] MAGNESIUM 2022-05-10 12:19:00 Abbi, [facility] BASIC METABOLIC PANEL (NA, 2022-05-10 12:19:00 Abbi, [facility] K, CL, CO2, GLUCOSE, BUN, Medica l Branch CREATININE, CA) MAGNESIUM 2022-05-10 12:19:00 Abbi [facility] BASIC METABOLIC PANEL (NA, 2022-05-10 12:19:00 Jared Go [facility] K, CL, CO2, GLUCOSE, BUN, Medica l Branch CREATININE, CA) HEPATITIS B SURFACE 2022-05-10 07:11:00 Feliberto Galicia [facility] ANTIBODY (IGM & IGG) 2022-05-10 07:11:00 Feliberto Galicia [facility] CA-125 2022-05-10 07:11:00 Logvonda [facility] CARCINOEMBRYONIC ANTIGEN 2022-05-10 07:11:00 Logvonda [facility] CARCINOEMBRYONIC ANTIGEN 2022-05-10 07:11:00 Loghitirso [facility] CA-125 2022-05-10 07:11:00 Logvonda [facility] HEPATITIS B SURFACE 2022-05-10 07:11:00 Feliberto Galicia [facility] HBC ANTIBODY (IGM & IGG) 2022-05-10 07:11:00 Feliberto Galicia [facility] CARCINOEMBRYONIC ANTIGEN 2022-05-10 07:11:00 [facility] CA[facility] 2022-05-10 07:11:00 [facility] HEPATITIS B SURFACE 2022-05-10 07:11:00 Feliberto Galicia [facility] HBC ANTIBODY (IGM & IGG) 2022-05-10 07:11:00 Feliberto Galicia [facility] HB ECG ROUTINE & RHYTHM 2022-05-10 04:47:45 Abbi [facility] HB ECG ROUTINE & RHYTHM 2022-05-10 04:47:45 Abbi [facility] HB ECG ROUTINE & RHYTHM 2022-05-10 04:47:45 Abbi, [facility] ACUTE CARE VENOUS BLOOD 2022-05-10 04:26:00 Abbi, [facility] ACUTE CARE VENOUS BLOOD 2022-05-10 04:26:00 Abbi, [facility] ACUTE CARE VENOUS BLOOD 2022-05-10 04:26:00 Abbi, [facility] CBC WITH DIFF 2022-05-10 04:13:00 Abbi, [facility] BASIC METABOLIC PANEL (NA, 2022-05-10 04:13:00 Abbi, [facility] niversity [facility] K, CL, CO2, GLUCOSE, BUN, Medica l Branch CREATININE, CA) MAGNESIUM 2022-05-10 04:13:00 Abbi, [facility] PHOSPHORUS 2022-05-10 04:13:00 Abbi, [facility] HEPATITIS B SURFACE 2022-05-10 04:13:00 Feliberto Galicia [facility] ANTIGEN [facility] PHOSPHORUS 2022-05-10 04:13:00 Abbi, [facility] MAGNESIUM 2022-05-10 04:13:00 Abbi, [facility] BASIC METABOLIC PANEL (NA, 2022-05-10 04:13:00 Abbi, [facility] CL, CO2, GLUCOSE, BUN, Medica l Branch CREATININE, CA) CBC WITH DIFF 2022-05-10 04:13:00 Abbi, [facility] HEPATITIS B SURFACE 2022-05-10 04:13:00 Frida Dao [facility] ANTIGEN [facility] PHOSPHORUS 2022-05-10 04:13:00 Abbi, [facility] MAGNESIUM 2022-05-10 04:13:00 Abbi, [facility] BASIC METABOLIC PANEL (NA, 2022-05-10 04:13:00 Abbi, [facility] niversity [facility] K, CL, CO2, GLUCOSE, BUN, Medica l Branch CREATININE, CA) CBC WITH DIFF 2022-05-10 04:13:00 Jared Go [facility] HEPATITIS B SURFACE 2022-05-10 04:13:00 Feliberto Galicia [facility] POCT GLUCOSE (AUTOMATED) 2022-05-10 01:42:00 [facility]) 2022-05-10 01:42:00 [facility] (AUTOMATED) 2022-05-10 01:42:00 Ld [facility] [facility]UCOSE (AUTOMATED) 2022-05-10 01:10:00 [facility] 2022-05-10 01:10:00 Ld Mora [facility] POCT GLUCOSE (AUTOMATED) 2022-05-10 01:10:00 Ld Mora [facility] ABG+COOX+NA+K+GLU+CA2+ 2022-05-10 00:36:[address] [facility] ABG+COOX+NA+K+GLU+CA2+ 2022-05-10 00:36:00 [facility] ABG+COOX+NA+K+GLU+CA2+ 2022-05-10 00:36:[address] [facility] POTASSIUM SERUM 2022-05-10 00:19:00 Ld Mora [facility] POTASSIUM SERUM 2022-05-10 00:19:00 Ld Mora [facility] POTASSIUM SERUM 2022-05-10 00:19:00 Ld Mora [facility] N-TERMINAL PRO-BNP 2022-05-09 23:06:00 Ld [facility] COMP. METABOLIC PANEL 2022-05-09 23:06:00 Ld Mora [facility] ([id number]) Medical Branch MAGNESIUM 2022-05-09 23:06:00 Ld Mora [facility] TROPONIN I 2022-05-09 23:06:00 Ld Mora [facility] MAGNESIUM 2022-05-09 23:06:00 Ld Mora [facility] TROPONIN I 2022-05-09 23:06:00 Ld Mora [facility] COMP. METABOLIC PANEL 2022-05-09 23:06:00 Ld Mora [facility] ([id number]) [facility] N-TERMINAL PRO-BNP 2022-05-09 23:06:00 Ld [facility]a [facility] MAGNESIUM 2022-05-09 23:06:00 Ld Mora [facility] TROPONIN I 2022-05-09 23:06:00 Ld Mora [facility] COMP. METABOLIC PANEL 2022-05-09 23:06:00 Ld Mora [facility] ([id number]) [facility] N-TERMINAL PRO-BNP 2022-05-09 23:06:00 Ld [facility]a [facility] HB ECG ROUTINE & RHYTHM 2022-05-09 22:37:22 Ld Mora Sarah [facility] HB ECG ROUTINE & RHYTHM 2022-05-09 22:37:22 Ld Mora Sarah [facility] HB ECG ROUTINE & RHYTHM 2022-05-09 22:37:22 Ld Mora Sarah [facility] CT THORAX WO CONTRAST 2022-05-09 22:24:17 Ld [facility]a [facility] THORAX WO CONTRAST 2022-05-09 22:24:17 Ld Mora [facility] THORAX WO CONTRAST 2022-05-09 22:24:17 Ld Mora [facility] MARK AURIS SURVEILLANCE 2022-05-09 21:58:00 Ld Mora [facility] BY PCR (INFECTION CONTROL Medica l Branch PURPOSES) CBC WITH DIFF 2022-05-09 21:58:00 Ld Mora [facility] CBC WITH DIFF 2022-05-09 21:58:00 Ld Mora [facility] MARK AURIS SURVEILLANCE 2022-05-09 21:58:00 Ld Mora [facility] BY PCR (INFECTION CONTROL Medica l Branch PURPOSES) CBC WITH DIFF 2022-05-09 21:58:00 Ld Mora [facility] MARK AURIS SURVEILLANCE 2022-05-09 21:58:00 MorganLd morillo [facility] BY PCR (INFECTION CONTROL Medica Branch PURPOSES) DISCLOSURE AND CONSENT, 2022-05-09 06:01:00 Doctor Unassigned, [facility] MEDICAL AND SURGICAL [place] [facility] PROCEDURES HOSPITAL ADMISSION 2022-05-09 06:01:00 Doctor Unassigned, [facility] [place] EXTERNAL PROVIDER RECORDS 2022-05-09 06:01:00 Doctor Unaigned, [facility] Name Medical [place] DISCLOSURE AND CONSENT, 2022-05-09 06:01:00 Doctor Unassigned, [facility] MEDICAL AND SURGICAL [place] [facility] PROCEDURES HOSPITAL ADMISSION 2022-05-09 06:01:00 Doctor Unassigned, [facility] Name Medical [place] EXTERNAL PROVIDER RECORDS 2022-05-09 06:01:00 Doctor Unassigned, [facility] Name [facility] [place] DISCLOSURE AND CONSENT, 2022-05-09 06:01:00 Doctor Unassigned, [facility] MEDICAL AND SURGICAL [place] [facility] PROCEDURES HOSPITAL ADMISSION 2022-05-09 06:01:00 Doctor Unassigned, [facility] Name [facility] [place] EKG-12 LEAD 2021-12-25 18:40:28 Miguel Ángel Justice [facility] CONSENT/REFUSAL FOR 2021-12-25 18:09:35 Doctor Unassdon, [facility] DIAGNOSIS AND TREATMENT [place] [facility] TTE COMPLETE, WO CONTRAST, 2021-12-18 13:28:00 Soni Mayes I [facility] W DOPPLER ([id number]) [place] HEPATITIS B SURFACE 2021-12-17 17:24:00 [facility] ANTIGEN HEPATITIS B SURFACE AB, 2021-12-17 17:24:00 [facility] QUANTITATIVE HEPATITIS B SURFACE 2021-12-17 17:24:00 [facility] ANTIBODY HEMODIALYSIS 2021-12-17 13:44:21 [facility] POC GLUCOSE 2021-12-16 22:03:00 Laeeq, [facility] CT ANGIOGRAM PE CHEST 2021-12-16 21:37:19 Laeeq, [facility] CBC WITH PLATELET AND 2021-12-16 17:59:00 Laeeq, [facility] DIFFERENTIAL VANCOMYCIN LEVEL, RANDOM 2021-12-16 17:59:00 Laeeq, [facility] LACTIC ACID LEVEL 2021-12-16 17:55:00 Laeeq, [facility] PROTHROMBIN TIME WITH INR 2021-12-16 17:55:00 Laeeq, [facility] COMPREHENSIVE METABOLIC 2021-12-16 17:25:00 Laeeq, [facility] PANEL MAGNESIUM LEVEL 2021-12-16 17:25:00 Laeeq, [facility] PHOSPHORUS LEVEL 2021-12-16 17:25:00 Laeeq, [facility] AMMONIA LEVEL 2021-12-16 17:25:00 Laeeq, [facility] ESTIMATED GFR 2021-12-16 17:25:00 Laeeq, [facility] CT HEAD WO CONTRAST 2021-12-16 13:16:29 [facility] AWAKE/ASLEEP LESS THAN 2021-12-16 11:26:21 Laeeq, [facility] 41 MIN ARTERIAL BLOOD GAS 2021-12-16 02:54:00 [facility] 1 VW PORTABLE 2021-12-16 01:57:17 Laeeq, [facility] TRANSFUSE RED BLOOD CELLS 2021-12-16 00:57:00 Laeeq, [facility] ARTERIAL BLOOD GAS 2021-12-16 00:51:00 Laeeq, [facility] ARTERIAL BLOOD GAS 2021-12-15 21:42:[address] [facility] Vincent [place] < 1 HOUR 2021-12-15 20:00:00 Bunny Go spital ARTERIAL BLOOD GAS, 2021-12-15 19:30:00 Laeeq, [facility] CORRECTED SODIUM LEVEL, SYRINGE 2021-12-15 19:30:00 Laeeq, [facility] POTASSIUM, SYRINGE 2021-12-15 19:30:00 Laeeq, [facility] HEMOGLOBIN, SYRINGE 2021-12-15 19:30:00 Laeeq, [facility] IONIZED CALCIUM, ARTERIAL 2021-12-15 19:30:00 Laeeq, [facility] GLUCOSE LEVEL, SYRINGE 2021-12-15 19:30:00 Laeeq, [facility] MAGNESIUM LEVEL 2021-12-15 19:30:00 Laeeq, [facility] ANAEROBIC CULTURE 2021-12-15 19:11:[address] [facility] FUNGUS CULTURE 2021-12-15 19:11:00 Bunny Go spital AFB CULTURE 2021-12-15 19:11:00 Bunny [facility] Ho [facility] GRAM STAIN 2021-12-15 19:11:00 AbbiBunny Ho spital AFB STAIN 2021-12-15 19:11:00 Bunny Go [facility] AEROBIC CULTURE 2021-12-15 19:11:00 Bunny Go Ho spital TRANSFUSE RED BLOOD CELLS 2021-12-15 18:37:[address] [facility] Michael ARTERIAL BLOOD GAS, 2021-12-15 17:51:00 Laeeq, [facility] CORRECTED SODIUM LEVEL, SYRINGE 2021-12-15 17:51:00 Laeeq, [facility] POTASSIUM, SYRINGE 2021-12-15 17:51:00 Laeeq, [facility] HEMOGLOBIN, SYRINGE 2021-12-15 17:51:00 Laeeq, [facility] IONIZED CALCIUM, ARTERIAL 2021-12-15 17:51:00 Laeeq, [facility] GLUCOSE LEVEL, SYRINGE 2021-12-15 17:51:00 Laeeq, [facility] MAGNESIUM LEVEL 2021-12-15 17:51:00 Laeeq, [facility] DC AN ELECTIVE 2021-12-15 15:01:00 Dallas Kowalski spital SUPRAGLOTTIC AIRWAY Michael Extensive Revision AV 2021-12-15 14:41:00 Bunny Go [facility] Fistula - ANTI-SPIKE IGG 2021-12-15 10:57:[address] [facility] ANTIBODY TITER Jalen CBC WITH PLATELET AND 2021-12-15 10:57:00 Laeeq, [facility] DIFFERENTIAL COMPREHENSIVE METABOLIC 2021-12-15 10:57:00 Laeeq, [facility] PANEL MAGNESIUM LEVEL 2021-12-15 10:57:00 Laeeq, [facility] PHOSPHORUS LEVEL 2021-12-15 10:57:00 Laeeq, [facility] PROTHROMBIN TIME WITH INR 2021-12-15 10:57:00 Laeeq, [facility] ZZCOVID-19 SEROLOGY 2021-12-15 10:57:00 [facility]ILL[facility] Jalen ESTIMATED GFR 2021-12-15 10:57:00 Laeeq, [facility] PARTIAL THROMBOPLASTIN 2021-12-15 10:57:00 Damion Ambrose [facility] TIME (PTT) Jalen ESTIMATED GFR 2021-12-15 10:28:00 Laeeq, [facility] BASIC METABOLIC PANEL 2021-12-14 23:49:00 Kym [facility] ESTIMATED GFR 2021-12-14 23:49:00 Kym [facility] spital PREPARE RBC 2021-12-14 20:13:00 Laeeq, [facility] PROTHROMBIN TIME WITH INR 2021-12-14 20:13:00 [facility] PARTIAL THROMBOPLASTIN 2021-12-14 20:13:00 [facility] TIME (PTT) [facility] Gume. XR CHEST 1 VW PORTABLE 2021-12-14 19:02:38 [facility] BASIC METABOLIC PANEL 2021-12-14 15:41:00 [facility] ESTIMATED GFR 2021-12-14 15:41:00 [facility] spital HEMODIALYSIS 2021-12-14 14:50:[address] [facility] Kely CBC WITH PLATELET AND 2021-12-14 10:48:00 Medardo [facility] DIFFERENTIAL ESTIMATED GFR 2021-12-14 09:39:[address] [facility] LACTIC ACID LEVEL, SEPSIS 2021-12-14 05:01:00 Alma Whitman [facility] - NOW AND REPEAT 2X EVERY 3 HOURS POC GLUCOSE 2021-12-14 03:32:[address] [facility] POC GLUCOSE 2021-12-14 02:40:[address] [facility] ECG 12-LEAD 2021-12-14 02:14:[address] [facility] POC GLUCOSE 2021-12-14 02:00:[address] [facility] COVID-19 QUALITATIVE 2021-12-14 01:49:00 Pratibha Hummel [facility] RT-PCR LACTIC ACID LEVEL, SEPSIS 2021-12-14 01:49:00 Alma Whitman [facility] NOW AND REPEAT 2X EVERY 3 HOURS LACTIC ACID LEVEL, SEPSIS 2021-12-14 00:13:00 Alma Whitman [facility] NOW AND REPEAT 2X EVERY 3 HOURS BASIC METABOLIC PANEL 2021-12-14 00:13:00 Pratibha Hummel [facility] CBC WITH PLATELET AND 2021-12-14 00:13:00 Pratibha Hummel [facility] DIFFERENTIAL HEPATIC FUNCTION PANEL 2021-12-14 00:13:[address] [facility] ESTIMATED GFR 2021-12-14 00:13:00 [facility] BLOOD CULTURE, AEROBIC & 2021-12-14 00:12:00 [facility] ANAEROBIC DC CRITICAL CARE 2021-12-13 22:29:38 [facility] ILL/INJURED PATIENT INIT 30-74 MIN ECG ED PRELIMINARY 2021-12-13 22:29:38 [facility] INTERPRETATION Open Reduction of Fracture [facility] Multiple Ribs with Internal Fixation Insertion of Stent into [facility] Subclavian Artery Insertion of Stent into [facility] M edical Aorta Splenectomy [facility] Plan of Care Planned Activity Planned Date Details Comments Source Future Scheduled 2022-05-15 Pneumococcal Vaccine: [facility] Test 15:13:20 Pediatrics (0 to 5 Years) and At-Risk Patients (6 to 64 Years) (1 - PCV) [code = Pneumococcal Vaccine: Pediatrics (0 to 5 Years) and At-Risk Patients (6 to 64 Years) (1 - PCV)] Future Scheduled 2022-05-[address] [facility] Test 15:13:20 (procedure) [code = [id number]] Future Scheduled 2022-05-[address] [facility] Test 15:13:20 [code = COLONOSCOPY SCREENING] Future Scheduled 2022-05-15 COVID-19 VACCINE (3 - [facility] Test 15:13:20 Booster for Pfizer series) [code = COVID-19 VACCINE (3 - Booster for Pfizer series)] Future Scheduled 2022-05-15 INFLUENZA VACCINE [facility] Test 15:13:20 [code = INFLUENZA VACCINE] Future Scheduled 2022-05-10 Pneumococcal Vaccine: [facility] Test 11:00:01 Pediatrics (0 to 5 Years) and At-Risk Patients (6 to 64 Years) (1 - PCV) [code = Pneumococcal Vaccine: Pediatrics (0 to 5 Years) and At-Risk Patients (6 to 64 Years) (1 - PCV)] Future Scheduled 2022-05-[address] [facility] Test 11:00:01 (procedure) [code = [id number]] Future Scheduled 2022-05-[address] [facility] Test 11:00:01 [code = COLONOSCOPY SCREENING] Future Scheduled 2022-05-10 COVID-19 VACCINE (3 - [facility] Test 11:00:01 Booster for Pfizer series) [code = COVID-19 VACCINE (3 - Booster for Pfizer series)] Future Scheduled 2022-05-10 INFLUENZA VACCINE [facility] Test 11:00:01 [code = INFLUENZA VACCINE] Future Scheduled 2022-04-12 Pneumococcal Vaccine: [facility] Test 12:01:17 Pediatrics (0 to 5 Years) and At-Risk Patients (6 to 64 Years) (1 - PCV) [code = Pneumococcal Vaccine: Pediatrics (0 to 5 Years) and At-Risk Patients (6 to 64 Years) (1 - PCV)] Future Scheduled 2022-04-[address] [facility] Test 12:01:17 (procedure) [code = [id number]] Future Scheduled 2022-04-[address] [facility] Test 12:01:17 [code = COLONOSCOPY SCREENING] Future Scheduled 2022-04-12 COVID-19 VACCINE (3 - [facility] Test 12:01:17 Booster for Pfizer series) [code = COVID-19 VACCINE (3 - Booster for Pfizer series)] Future Scheduled 2022-04-12 INFLUENZA VACCINE Method [facility] Test 12:01:17 [code = INFLUENZA VACCINE] Future Scheduled 2022-04-12 Pneumococcal Vaccine: [facility] Test 12:01:17 Pediatrics (0 to 5 Years) and At-Risk Patients (6 to 64 Years) (1 - PCV) [code = Pneumococcal Vaccine: Pediatrics (0 to 5 Years) and At-Risk Patients (6 to 64 Years) (1 - PCV)] Future Scheduled 2022-04-[address] [facility] Test 12:01:17 (procedure) [code = [id number]] Future Scheduled 2022-04-[address] [facility] Test 12:01:17 [code = COLONOSCOPY SCREENING] Future Scheduled 2022-04-12 COVID-19 VACCINE (3 - [facility] Test 12:01:17 Booster for Pfizer series) [code = COVID-19 VACCINE (3 - Booster for Pfizer series)] Future Scheduled 2022-04-12 INFLUENZA VACCINE [facility] Test 12:01:17 [code = INFLUENZA VACCINE] Future Scheduled 2022-04-12 Pneumococcal Vaccine: [facility] Test 12:01:17 Pediatrics (0 to 5 Years) and At-Risk Patients (6 to 64 Years) (1 - PCV) [code = Pneumococcal Vaccine: Pediatrics (0 to 5 Years) and At-Risk Patients (6 to 64 Years) (1 - PCV)] Future Scheduled 2022-04-[address] [facility] Test 12:01:17 (procedure) [code = [id number]] Future Scheduled 2022-04-[address] [facility] Test 12:01:17 [code = COLONOSCOPY SCREENING] Future Scheduled 2022-04-12 COVID-19 VACCINE (3 - [facility] Test 12:01:17 Booster for Pfizer series) [code = COVID-19 VACCINE (3 - Booster for Pfizer series)] Future Scheduled 2022-04-12 INFLUENZA VACCINE [facility] Test 12:01:17 [code = INFLUENZA VACCINE] Future Scheduled 2022-04-12 Pneumococcal Vaccine: [facility] Test 12:01:17 Pediatrics (0 to 5 Years) and At-Risk Patients (6 to 64 Years) (1 - PCV) [code = Pneumococcal Vaccine: Pediatrics (0 to 5 Years) and At-Risk Patients (6 to 64 Years) (1 - PCV)] Future Scheduled 2022-04-[address] [facility] Test 12:01:17 (procedure) [code = [id number]] Future Scheduled 2022-04-[address] [facility] Test 12:01:17 [code = COLONOSCOPY SCREENING] Future Scheduled 2022-04-12 COVID-19 VACCINE (3 - [facility] Test 12:01:17 Booster for Pfizer series) [code = COVID-19 VACCINE (3 - Booster for Pfizer series)] Future Scheduled 2022-04-12 INFLUENZA VACCINE [facility] Test 12:01:17 [code = INFLUENZA VACCINE] Future Scheduled 2022-04-12 Pneumococcal Vaccine: [facility] Test 12:01:17 Pediatrics (0 to 5 Years) and At-Risk Patients (6 to 64 Years) (1 - PCV) [code = Pneumococcal Vaccine: Pediatrics (0 to 5 Years) and At-Risk Patients (6 to 64 Years) (1 - PCV)] Future Scheduled 2022-04-[address] [facility] Test 12:01:17 (procedure) [code = [id number]] Future Scheduled 2022-04-[address] [facility] Test 12:01:17 [code = COLONOSCOPY SCREENING] Future Scheduled 2022-04-12 COVID-19 VACCINE (3 - [facility] Test 12:01:17 Booster for Pfizer series) [code = COVID-19 VACCINE (3 - Booster for Pfizer series)] Future Scheduled 2022-04-12 INFLUENZA VACCINE [facility] Test 12:01:17 [code = INFLUENZA VACCINE] Future Scheduled 2021-12-30 HEPATITIS B VACCINES Met [facility] Test 03:33:27 (1 of 3 - 3-dose series) [code = HEPATITIS B VACCINES (1 of 3 - 3-dose series)] Future Scheduled 2021-12-30 Pneumococcal Vaccine: [facility] Test 03:33:27 Pediatrics (0 to 5 Years) and At-Risk Patients (6 to 64 Years) (1 - PCV) [code = Pneumococcal Vaccine: Pediatrics (0 to 5 Years) and At-Risk Patients (6 to 64 Years) (1 - PCV)] Future Scheduled 2021-12-[address] [facility] Test 03:33:27 (procedure) [code = [id number]] Future Scheduled 2021-12-[address] [facility] Test 03:33:27 [code = COLONOSCOPY SCREENING] Future Scheduled 2021-12-30 COVID-19 VACCINE (3 - [facility] Test 03:33:27 Booster for Pfizer series) [code = COVID-19 VACCINE (3 - Booster for Pfizer series)] Future Scheduled 2021-12-30 INFLUENZA VACCINE [facility] Test 03:33:27 [code = INFLUENZA VACCINE] Future Scheduled 2021-11-29 HEPATITIS B VACCINES Met [facility] Test 05:50:55 (1 of 3 - 3-dose series) [code = HEPATITIS B VACCINES (1 of 3 - 3-dose series)] Future Scheduled 2021-11-29 COVID-19 VACCINE (#1) [facility] Test 05:50:55 [code = COVID-19 VACCINE (#1)] Future Scheduled 2021-11-29 [facility] 05:50:55 Pediatrics (0 to 5 Years) and At-Risk Patients (6 to 64 Years) (1 - PCV) [code = Pneumococcal Vaccine: Pediatrics (0 to 5 Years) and At-Risk Patients (6 to 64 Years) (1 - PCV)] Future Scheduled 2021-11-29 Hepatitis C screening [facility] Test 05:50:55 (procedure) [code = [id number]] Future Scheduled 2021-11-29 COLONOSCOPY SCREENING [facility] Test 05:50:55 [code = COLONOSCOPY SCREENING] Future Scheduled 2021-11-29 INFLUENZA VACCINE [facility] Test 05:50:55 [code = INFLUENZA VACCINE] Future Scheduled 2021-11-29 HEPATITIS B VACCINES Met [facility] Test 05:50:55 (1 of 3 - 3-dose series) [code = HEPATITIS B VACCINES (1 of 3 - 3-dose series)] Future Scheduled 2021-11-29 COVID-19 VACCINE (#1) [facility] Test 05:50:55 [code = COVID-19 VACCINE (#1)] Future Scheduled 2021-11-29 Pneumococcal Vaccine: [facility] Test 05:50:55 Pediatrics (0 to 5 Years) and At-Risk Patients (6 to 64 Years) (1 - PCV) [code = Pneumococcal Vaccine: Pediatrics (0 to 5 Years) and At-Risk Patients (6 to 64 Years) (1 - PCV)] Future Scheduled 2021-11-29 Hepatitis C screening [facility] Test 05:50:55 (procedure) [code = [id number]] Future Scheduled 2021-11-29 COLONOSCOPY SCREENING [facility] Test 05:50:55 [code = COLONOSCOPY SCREENING] Future Scheduled 2021-11-29 INFLUENZA VACCINE [facility] Test 05:50:55 [code = INFLUENZA VACCINE] Future Scheduled 2021-11-29 HEPATITIS B VACCINES Met [facility] Test 05:50:55 (1 of 3 - 3-dose series) [code = HEPATITIS B VACCINES (1 of 3 - 3-dose series)] Future Scheduled 2021-11-29 COVID-19 VACCINE (#1) [facility] Test 05:50:55 [code = COVID-19 VACCINE (#1)] Future Scheduled 2021-11-29 Pneumococcal Vaccine: [facility] Test 05:50:55 Pediatrics (0 to 5 Years) and At-Risk Patients (6 to 64 Years) (1 - PCV) [code = Pneumococcal Vaccine: Pediatrics (0 to 5 Years) and At-Risk Patients (6 to 64 Years) (1 - PCV)] Future Scheduled 2021-11-[address] [facility] Test 05:50:55 (procedure) [code = [id number]] Future Scheduled 2021-11-29 COLONOSCOPY SCREENING [facility] Test 05:50:55 [code = COLONOSCOPY SCREENING] Future Scheduled 2021-11-29 INFLUENZA VACCINE [facility] Test 05:50:55 [code = INFLUENZA VACCINE] Future Scheduled 2021-11-29 HEPATITIS B VACCINES Met [facility] Test 05:50:55 (1 of 3 - 3-dose series) [code = HEPATITIS B VACCINES (1 of 3 - 3-dose series)] Future Scheduled 2021-11-29 COVID-19 VACCINE (#1) [facility] Test 05:50:55 [code = COVID-19 VACCINE (#1)] Future Scheduled 2021-11-29 Pneumococcal Vaccine: [facility] Test 05:50:55 Pediatrics (0 to 5 Years) and At-Risk Patients (6 to 64 Years) (1 - PCV) [code = Pneumococcal Vaccine: Pediatrics (0 to 5 Years) and At-Risk Patients (6 to 64 Years) (1 - PCV)] Future Scheduled 2021-11-[address] [facility] Test 05:50:55 (procedure) [code = [id number]] Future Scheduled 2021-11-29 COLONOSCOPY SCREENING [facility] Test 05:50:55 [code = COLONOSCOPY SCREENING] [...] Future Scheduled 2021-11-16 HEPATITIS B VACCINES Met [facility] Test 04:27:12 (1 of 3 - 3-dose series) [code = HEPATITIS B VACCINES (1 of 3 - 3-dose series)] Future Scheduled 2021-11-16 COVID-19 VACCINE (#1) [facility] Test 04:27:12 [code = COVID-19 VACCINE (#1)] Future Scheduled 2021-11-16 Pneumococcal Vaccine: [facility] Test 04:27:12 Pediatrics (0 to 5 Years) and At-Risk Patients (6 to 64 Years) (1 - PCV) [code = Pneumococcal Vaccine: Pediatrics (0 to 5 Years) and At-Risk Patients (6 to 64 Years) (1 - PCV)] Future Scheduled 2021-11-[address] [facility] Test 04:27:12 (procedure) [code = [id number]] Future Scheduled 2021-11-16 INFLUENZA VACCINE [facility] Test 04:27:12 [code = INFLUENZA VACCINE] [...] DEPRESSION SCREENING (12+)] Diagnostic Test 2019-02-21 17-hydroxyprogesterone [facility] Pending 00:00:00 , quantitative, serum Group [...] [facility] Test 00:00:00 (procedure) [code = [facility] [id number]] Future Scheduled [address] [facility] Test 00:00:00 (procedure) [code = [facility] [facility] [id number]] Future Scheduled [address] [facility] 00:[facility]:00 (procedure) [code = [facility] 36285782] Future Scheduled [address] [facility] 00:00:00 (procedure) [code = [facility] 50140754] Future Scheduled [address] [facility] 00:00:00 (procedure) [code = [facility] 26671060] Future Scheduled 1994 DTAP/TDAP/TD VACCINES [facility] [...] [facility] colon (procedure) [code = 864434814] Future Scheduled [address] [facility] colon (procedure) [code = 395996770] Future Scheduled [address] [facility] colon (procedure) [code = 975929735] Future Scheduled [address] [facility] ne[facility] colon (procedure) [code = 763403139] Future Scheduled [address] [facility] 00:[facility] malignant neoplasm of [facility] colon (procedure) [code = 836881061] Future Scheduled 1975 Sigmoidoscopy [facility] Cent[facility] Future Scheduled [address] [facility] malignant ne[facility] colon (procedure) [code = 177746778] Future Scheduled [address] [facility] 00:00:00 malignant neoplasm of [facility] colon (procedure) [code = 633904592] Future Scheduled [address] [facility] 00:[facility]:00 (combo) [code = CT Medical C enter Colonography (combo)] Future Scheduled [address] [facility] malignant neoplasm of [facility] colon (procedure) [code = 679189683] Future Scheduled [address] [facility] 00:00:00 malignant neoplasm of [facility] colon (procedure) [code = 691834330] Future Scheduled [address] [facility] 00:00:00 malignant neoplasm of [facility] colon (procedure) [code = 425979800] Future Scheduled [address] [facility] 00:00:00 malignant neoplasm of [facility] colon (procedure) [code = 737895223] Future Scheduled [address] [facility] 00:00:[facility] malignant neoplasm of [facility] colon (procedure) [code = 445951566] Future Scheduled 1975 Sigmoidoscopy [code = [facility] [...] [facility] colon (procedure) [code = 849444912] Future Scheduled [address] [facility]:00 malignant ne[facility] of [facility] colon (procedure) [code = 584620930] Future Scheduled [address] [facility] 00:00:00 malignant neoplasm of [facility] colon (procedure) [code = 332613512] Future Scheduled [address] [facility] 00:00:00 malignant neoplasm of [facility] colon (procedure) [code = 124714736] Future Scheduled 1975 [facility]oid[facility]] Medical Cente r Future Scheduled [address] [facility] 00:00:00 (combo) [code = CT Medical C enter Colonography (combo)] Future Scheduled [address] [facility] 00:[facility] malignant neoplasm of [facility] Center colon (procedure) [code = 467417578] Future Scheduled [address] [facility] 00:00:00 malignant neoplasm of [facility] colon (procedure) [code = 316117909] Future Scheduled [address] [facility] 00:00:00 malignant neoplasm of [facility] Center colon (procedure) [code = 733906638] Future Scheduled [address] [facility] 00:00:00 malignant neoplasm of [facility] Center colon (procedure) [code = 224154983] Future Scheduled 1975 S[facility]oidoscopy [facility]] Medical Dennis heaton Encounters Start End Encounter Admission Attending Care Care Encounter Source Date/Time Date/Time Type Type Clinicians Facility Department ID 2022-02-15 Inpatient [facility] [id number] [facility] 10:46:20 [id number] [place] 2021-11-19 Outpatient [facility] [id number] ID 10:07:20 [id number] [facility] 2021-10-16 Outpatient [facility] [id number] ID 14:38:07 ENRIQUE [id number] [facility] 2021-09-25 Outpatient [facility] [id number] ID 09:31:27 ENRIQUE [id number] [facility] 2021-09-17 Outpatient [facility] [id number] ID 10:08:53 ENRIQUE [id number] [facility] 2021-09-04 Outpatient [facility] [id number] ID 12:19:20 ENRIQUE [id number] [facility] 2015-12-08 Inpatient C [facility] MED [id number] St. 18:48:00 [facility] 2022-05-29 2022-05-29 Transition RANJIT Angel 1.2.840.114 [id number] Univers 00:00:00 00:00:00 of Care Lana HIDALGO 350.1.13.10 [place] [id number] [facility] [address] Branch 2022-05-09 2022-05-28 Inpatient X [facility] [id number] Univers 15:17:00 12:12:00 ity of [facility] 2022-05-09 2022-05-28 [facility] Morgan, K Sarah ABERNATHY 1.2.840.1 14 [id number] Univers 15:17:00 12:12:00 Encounter Natalie Mustafa 350.1.13 .10 ity of [facility] 4.2.7.2.686 [place] Jean-Claude Cohen [id number] Oh dical 089 Branch 2022-05-22 2022-05-22 Surgery Jean-Claude Cohen 1.2.467.692 [id number] Univers 08:35:00 12:26:00 JOAN 350.1.13.10 it y of [facility] 4.2.7.2.686 Darian as [id number] [facility] 103 Branch 2022-05-14 2022-05-14 Outpatient [facility]_Tod PRIV PRIV 205 [id number] [facility] 00:00:00 00:00:00 d_J [id number] Medica l 2022-05-13 2022-05-13 [facility], 1.2.840.3 [id number] 1 [id number] Univers 00:00:00 00:00:00 Management Care 51337.1.1 i ty of Transition 3.104.2.7 Darian as .3.083822 Medica l .8 Branch 2022-05-10 2022-05-10 Outpatient [facility]_Tod PRIV PRIV 205 [id number] [facility] 00:00:00 00:00:00 d_J [id number] Medica l 2022-05-09 2022-05-09 Travel 1.2.840.1 1.2.949.315 [id number] [id number] Univers 00:00:00 00:00:00 12762.1.1 350.1.13.10 ity of 3.104.2.[place].698 [place] .3.4625[place] 084.8 Medica l .8 Branch 2022-04-30 2022-04-30 Mara [facility] 131 [facility] 00:00:00 00:00:00 PIA Padron: Health - Med ical [address] [address] , Ph. 2022-04-29 2022-04-29 Outpatient GC_[facility]_Tod PRIV PRIV 205 [id number] [facility] 00:00:00 00:00:00 d_J [id number] Medica l 2022-04-16 2022-04-16 Mara [facility] 117 [facility] 00:00:00 00:00:00 PIA Padron: Health - Med ical [address] [address] , Ph. 2022-04-10 2022-04-10 Outpatient GC_[facility]_Tod PRIV PRIV 205 [id number] [facility] 00:00:00 00:00:00 d_J [id number] Medica l 2022-04-10 2022-04-10 Outpatient [facility]_Tod PRIV PRIV 205 [id number] [facility] 00:00:00 00:00:00 d_J [id number] Medica l 2022-04-10 2022-04-10 Outpatient [facility]_Tod PRIV PRIV 205 [id number] [facility] 00:00:00 00:00:00 d_J [id number] Medica l 2022-04-02 2022-04-02 Mara [facility] [id number] 103 [facility] 00:00:00 00:00:00 PIA Padron: Health - Med ical [address] [address] , Ph. 2022-03-29 2022-03-29 Outpatient [facility]_Tod PRIV PRIV 205 [id number] [facility] 00:00:00 00:00:00 d_J [id number] Medica l 2022-03-21 2022-03-21 Outpatient R RESHMA [facility] [id number] Univers 00:00:00 00:00:00 SENDIL [facility] 2022-03-14 2022-03-14 [facility] [id number] Univers 00:00[facility]-12 2022-03-12 Mara [facility] 213 [facility] 00:00:00 00:00:00 PIA Padron: Health - Med ical [address] [address] , Ph. 2022-03-05 2022-03-05 Robert Mojica [facility] 202 [facility] 00:00:00 00:00:00 Fabio [facility] - Med ical MD: [address] [address] , Ph. 2022-03-01 2022-03-01 Travel 1.2.840.1 1.2.436.609 [id number] [id number] Univers 00:00:00 00:00:00 22827.1.1 350.1.13.10 ity of 3.104.2.[place].9364[place] 084.8 Medica l .8 Branch 2022-02-26 2022-02-26 [facility] [id number] Univers 10:40:00 10:40:00 [facility] 2022-02-20 2022-02-20 [facility] [id number] Univers 13:00:00 13:00:00 COLLEEN [facility] 2022-02-19 2022-02-19 Mara [facility] [id number] [facility] 00:00:00 00:00:00 PIA Padron: Health - Med ical [address] [facility] [place] [address] , Ph. 2022-02-12 2022-02-12 Outpatient Nas VIZCARRA [facility] [id number] Univers 13:00:00 13:00:00 COLLEEN philip [facility] 2022-02-05 2022-02-05 Mara DES[facility] - [facility] 108 [facility] 00:00:00 00:00:00 PIA Padron: Health - Med ical [address] [address] , Ph. 2022-01-22 2022-01-22 Office Conrad, 1.2.840.1 [id number] Methodi 13:45:00 15:23:28 Visit Aubree 75447.1.[address] [place] 3.430.2.7 Hosp carly .3.363664 l .8 2022-01-22 2022-01-22 Office Martines, 1.2.840.1 [id number] Methodi 13:45:00 15:23:28 Visit Aubree 43665.1.[address] [place] 3.430.2.7 Hosp carly .3.677678 l .8 2022-01-22 2022-01-22 Travel 1.2.840.1 1.2.138.115 9886 [id number] Methodi 00:00:00 00:00:[address] 3.430.2.7 0.2.7.3.698 Ho spita .3.281381 084.8 l .8 2022-01-22 2022-01-22 Travel 1.2.840.1 1.2.319.385 9683 369955 Methodi 00:00:00 00:00:[address] 3.430.2.7 0.2.7.3.698 Ho spita .3.427878 084.8 l .8 2022-01-18 2022-01-18 Mara [facility] 021 [facility] 00:00:00 00:00:00 PIA Padron: Health - Med ical [address] [address] , Ph. 2022-01-11 2022-01-11 Telephone Bunny Go 1.2.840.1 [id number] Methodi 00:00:00 00:00:[address] 3.430.2.7 Hospit a .3.351515 l .8 2022-01-11 2022-01-11 Telephone Bunny Go 1.2.840.1 [id number] 195 0686910 Methodi 00:00:00 00:00:[address] 3.430.2.7 Hospit a .3.129027 l .8 2022-01-04 2022-01-04 Mara [facility] 007 [facility] 00:00:00 00:00:00 PIA Padron: Health - Med ical [address] [address] , Ph. 2021-12-26 2021-12-26 Telephone GO Justice 1.2.143.726 [id number] [id number] Univers 00:00:00 00:00:00 Miguel Ángel YANEZ 350.1.13.10 philip [facility] 4.2.7.2.686 Lina RAMIREZ [phone] [address] 2021-12-25 2021-12-25 Outpatient R RESHMA IDBRADY [facility] [id number] Univers 13:00:00 14:05:49 MIGUEL ÁNGEL palacios [facility] 2021-12-25 2021-12-25 Office Reshma IDBRADY 1.2.840.114 [id number] Univers 13:00:00 14:05:49 Visit Miguel Ángel YANEZ 350.1.13.10 ity of [place] 4.2.7.2.686 Lina RAMIREZ [id number] Oh dical NAL 059 [facility] 2021-12-25 2021-12-25 Outpatient GC_BAHC_Tod PRIV PRIV 205 [id number] [facility] 00:00:00 00:00:00 d_J [id number] Medica l 2021-12-25 2021-12-25 Outpatient GC_[facility]_Tod PRIV PRIV 205 [id number] [facility] 00:00:00 00:00:00 d_J [id number] Medica l 2021-12-25 2021-12-25 Outpatient GC_[facility]_Tod PRIV PRIV 205 [id number] [facility] 00:00:00 00:00:00 d_J [id number] Medica l 2021-12-25 2021-12-25 Outpatient GC_[facility]_Tod PRIV PRIV 205 [id number] [facility] 00:00:00 00:00:00 d_J [id number] Medica l 2021-12-25 2021-12-25 Outpatient [facility]_Tod PRIV PRIV 205 [id number] [facility] 00:00:00 00:00:00 d_J [id number] Medica l 2021-12-25 2021-12-25 [facility] 92 [facility] 00:00:00 00:00:00 PIA Padron: Health - Med ical [address] [address] , Ph. 2021-12-25 2021-12-25 Orders Doctor FLYNN 1.2.840.114 [id number] Univers 00:00:00 00:00:00 Only Unassigned, JOAN 350.1.13.10 ity of [place] [facility] 4.2.7.2.686 Darian as [id number] [address] 2021-12-20 2021-12-20 Telephone Phong 1.2.840.1 [id number] Methodi 00:00:00 00:00:[address] 3.430.2.7 Hospit a .3.097675 l .8 2021-12-20 2021-12-20 [place] Phong 1.2.840.1 [id number] Methodi 00:00:00 00:00:[address] 3.430.2.7 Hospit a .3.904281 l .8 2021-12-13 2021-12-18 [facility] Ko Jorje Christina 1.2.840.1 1 [id number] Methodi 16:41:00 20:55:00 Encounter Alma Whitman 98091.1.[address] Laeeq, Rakel Maynor 3.430.2.7 Hospita Alvintila Nakul Mayela .3.873824 l .8 2021-12-13 2021-12-18 [facility] Jorje Connell Christina 1.2.840.1 1 [id number] Methodi 16:41:00 20:55:00 Encounter Alma Whitman 66951.1.[address] Laeeq, Rakel Maynor 3.430.2.7 Hospita AlvintilaAdonisuna Mayela .3.734031 l .8 2021-12-15 2021-12-15 Anesthesia Virgilio Purvis 1.2.840.1 [id number] Methodi 09:41:00 15:01:00 Event Dallas Kowalski 55607.1.[address] 3.430.2.7 Hospit a .3.187549 l .8 2021-12-15 2021-12-15 Anesthesia Virgilio Purvis 1.2.840.1 [id number] Methodi 09:41:00 15:01:00 Event Dallas Kowalski 07900.1.[address] 3.430.2.7 Hospit a .3.724480 l .8 2021-12-15 2021-12-15 Surgery Bunny Go 1.2.840.1 [id number] 06655 Methodi 09:15:00 11:25:[address] 3.430.2.7 Hospit a .3.393288 l .8 2021-12-15 2021-12-15 Surgery Bunny Go 1.2.840.1 [id number] 59880 Methodi 09:15:00 11:25:[address] 3.430.2.7 Hospit a .3.344063 l .8 2021-12-13 2021-12-13 Travel 1.2.840.1 1.2.276.179 0241 051874 Methodi 00:00:00 00:00:[address] 3.430.2.7 0.2.7.3.698 Ho spita .3.967692 084.8 l .8 2021-12-13 2021-12-13 Travel 1.2.840.1 1.2.942.859 4898 628261 Methodi 00:00:00 00:00:[address] 3.430.2.7 0.2.7.3.698 Ho spita .3.133743 084.8 l .8 2021-12-12 2021-12-12 Outpatient [facility]_Tod PRIV PRIV 205 [id number] [facility] 00:00:00 00:00:00 d_J [id number] Medica l 2021-12-11 2021-12-11 Outpatient THANG Padron [id number] 8-3 00:00:00 00:00:00 Mara 7bc-11ed-b [id number] f31d7d 2021-12-11 2021-12-11 [facility] [id number] [facility] 00:00:00 00:00:00 PIA Padron: Health - Med ical [address] [address] , Ph. 2021-12-08 2021-12-08 Outpatient GC_[facility]_Tod PRIV PRIV 205 [id number] [facility] 00:00:00 00:00:00 d_J [id number] Medica l 2021-11-24 2021-11-24 Outpatient GC_[facility]_Tod PRIV PRIV 205 [id number] [facility] 00:00:00 00:00:00 d_J [id number] Medica l 2021-11-23 2021-11-23 Outpatient Vito PRIV PRIV [id number] 0-2 00:00:00 00:00:00 Mara q17-41mw-5 [id number] [id number] 2021-11-23 2021-11-23 Mara [facility] [id number] [facility] 00:00:00 00:00:00 PIA Padron: Health - Med ical [address] [address] , Ph. 2021-11-20 2021-11-20 Outpatient GC_[facility]_Tod PRIV PRIV 205 [id number] [facility] 00:00:00 00:00:00 d_J [id number] Medica l 2021-11-20 2021-11-20 Outpatient Vito PRIV PRIV [id number] a-2 00:00:00 00:00:00 Mara s1x-21uf-f fbb-dc7df1 188fab 2021-11-20 2021-11-20 Mara [facility] [id number] [facility] 00:00:00 00:00:00 PIA Padron: Health - Med ical [address] [address] , Ph. 2021-11-16 2021-11-16 Outpatient GC_[facility]_Tod PRIV PRIV 205 [id number] [facility] 00:00:00 00:00:00 d_J [id number] Medica l 2021-11-08 2021-11-08 Outpatient [facility]_Tod PRIV PRIV 205 [id number] [facility] 00:00:00 00:00:00 d_J [id number] Medica l 2021-11-08 2021-11-08 Robert Mojica [facility] 202 [id number] [facility] 00:00:00 00:00:00 Fabio [facility] - Med ical MD: [address] [address] , Ph. 2021-11-08 2021-11-08 Outpatient Fabio PRIV PRIV [id number] [id number] 00:00:00 00:00:00 Robert Mojica m60-11lf-q [id number] [id number] 2021-11-02 2021-11-02 Outpatient [facility]_Tod PRIV PRIV 205 [id number] [facility] 00:00:00 00:00:00 Carey [id number] Medica l 2021-11-02 2021-11-02 Mara [facility] [id number] [facility] 00:00:00 00:00:00 PIA Padron: Health - Med ical [address] [address] , Ph. 2021-11-02 2021-11-02 Outpatient Vito [facility] [id number] e-1 00:00:00 00:00:00 Mara ce7-11ed-b 2o6-2x317g p1245c 2021-10-28 2021-10-28 Outpatient GC_[facility]_Tod PRIV PRIV 205 [id number] [facility] 00:00:00 00:00:00 d_Gume [id number] Medica l 2021-10-20 2021-10-20 Outpatient [facility]_Tod PRIV PRIV 205 [id number] [facility] 10:42:00 10:42:00 d_J [id number] Medica l 2021-10-19 2021-10-19 Outpatient [facility]_Tod PRIV PRIV 205 [id number] [facility] 07:48:00 07:48:00 d_J [id number] Medica l 2021-10-19 2021-10-19 Mara [facility] [id number] [facility] 00:00:00 00:00:00 PIA Padron: Health - Med ical [address] [address] , Ph. 2021-10-19 2021-10-19 Outpatient Vito, PRIV PRIV [id number] e-1 00:00:00 00:00:00 Mara 12e-11ed-a u84-42l6u1 58bb2d 2021-10-12 2021-10-12 Outpatient GC_[facility]_Tod PRIV PRIV 205 [id number] [facility] 03:53:00 03:53:00 d_J [id number] Medica l 2021-10-12 2021-10-12 Mara [facility] [id number] [facility] 00:00:00 00:00:00 PIA Padron: Health - Med ical [address] [address] , Ph. 2021-10-12 2021-10-12 Outpatient Vito PRIV PRIV [id number] 2-0 00:00:00 00:00:00 Mara af6-11ed-9 t4c-x4a2d0 [id number] 2021-10-09 2021-10-09 Outpatient [facility] 76 [place] 11:56:00 11:56:00 HANA 0712 da [facility] 2021-10-05 2021-10-05 Outpatient GC_[facility]_Tod PRIV PRIV 205 [id number] [facility] 11:01:00 11:01:00 d_J [id number] Medica l 2021-10-04 2021-10-04 Outpatient GC_[facility]_Tod PRIV PRIV 205 [id number] [facility] 09:10:00 09:10:00 d_J [id number] Medica l 2021-10-03 2021-10-03 Outpatient GC_[facility]_Tod PRIV PRIV 205 [id number] [facility] 02:45:00 02:45:00 d_J [id number] Medica l 2021-10-02 2021-10-02 Outpatient GC_[facility]_Tod PRIV PRIV 205 [id number] [facility] 05:08:00 05:08:00 d_J [id number] Medica l 2021-10-02 2021-10-02 Mara [facility] [id number] [facility] 00:00:00 00:00:00 PIA Padron: Health - Med ical [address] [address] , Ph. 2021-10-02 2021-10-02 Outpatient THANG Padron PRIV [id number] c-f 00:00:00 00:00:00 Mara i17-57ae-r [id number]-[id number] 21b3b7 2021-09-26 2021-09-26 Outpatient GC_[facility]_Tod PRIV PRIV 205 [id number] [facility] 09:13:00 09:13:00 d_J [id number] Medica l 2021-09-26 2021-09-26 Mara [facility] [id number] [facility] 00:00:00 00:00:00 PIA Padron: Health - Med ical [address] [address] , Ph. 2021-09-26 2021-09-26 Outpatient THANG Padron v0tu05s 2-f 00:00:00 00:00:00 Mara dec-11ec-8 [id number] 21b3b7 2021-09-25 2021-09-25 Office ADRI Thompson [facility] 1.2.840.114 [id number] [place] 11:15:00 12:43:09 Visit [facility] 350.1.13.58 [facility] [address] 1 9.2.7.2.686 [id number] 2 2021-09-21 2021-09-21 Outpatient GC_[facility]_Tod PRIV PRIV 205 [id number] [facility] 04:44:00 04:44:00 d_J [id number] Medica l 2021-09-17 2021-09-17 Outpatient GC_BAHC_Tod PRIV PRIV 205 [id number] [facility] 11:11:00 11:11:00 d_J [id number] Medica l 2021-09-13 2021-09-13 Outpatient GC_[facility]_Tod PRIV PRIV 205 [id number] [facility] 10:39:00 10:39:00 d_J [id number] Medica l 2021-09-13 2021-09-13 Robert Mojica [facility] 202 [id number] [facility] 00:00:00 00:00:00 Fabio [facility] - Med ical MD: [address] [address] , Ph. 2021-09-13 2021-09-13 Outpatient Fabio [facility] PRIV [id number] c76-f 00:00:00 00:00:00 Robert Mojica 3ee-11ec-8 [id number] 2021-09-10 2021-09-10 Outpatient GC_[facility]_Tod PRIV PRIV 205 [id number] [facility] 03:35:00 03:35:00 d_J [id number] Medica l 2021-09-04 2021-09-04 Outpatient GC_[facility]_Tod PRIV PRIV 205 [id number] [facility] 07:32:00 07:32:00 d_J [id number] Medica l 2021-09-04 2021-09-04 Outpatient Vito PRIV PRIV [id number] 2-e 00:00:00 00:00:00 Mara a5z-40ir-0 [id number] [id number] 2021-09-04 2021-09-04 Mara [facility] [id number] [facility] 00:00:00 00:00:00 PIA Padron: Health - Med ical [address] [address] , Ph. 2021-08-31 2021-08-31 Outpatient GC_[facility]_Tod PRIV PRIV 205 [id number] [facility] 02:07:00 02:07:00 d_J [id number] Medica l 2021-08-23 2021-08-23 Outpatient GC_[facility]_Tod PRIV PRIV 205 [id number] [facility] 11:05:00 11:05:00 d_J [id number] Medica l 2021-08-22 2021-08-22 Outpatient GC_[facility]_Tod PRIV PRIV 205 [id number] [facility] 07:00:00 07:00:00 d_J [id number] Medica l 2021-08-22 2021-08-22 Outpatient Vito, PRIV PRIV [id number] 8-e 00:00:00 00:00:00 Mara 8y6-86zq-l [id number] 2021-08-22 2021-08-22 Mara [facility] [id number] [facility] 00:00:00 00:00:00 PIA Padron: Health - Med ical [address] [address] , Ph. 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 2021-08-10 2021-08-10 Outpatient [facility]_Tod PRIV PRIV [id number] [facility] 01:10:00 01:10:00 d_J [id number] Medica l 2021-08-10 2021-08-10 Outpatient Vito, PRIV PRIV [id number] e-[id number] 00:00:00 00:00:00 Mara [id number] 2021-08-10 2021-08-10 [facility] [id number] [facility] 00:00:00 00:00:00 [facility] - [facility] [address] [address] , Ph. 2021-08-08 2021-08-08 Outpatient [facility]_Tod PRIV PRIV [id number] [facility] 10:53:00 10:53:00 d_J [id number] Medica l 2021-08-04 2021-08-04 Outpatient GC_[facility]_Tod PRIV PRIV [id number] [facility] 10:45:00 10:45:00 d_J [id number] Medica l 2021-07-31 2021-07-31 Outpatient [facility]_Tod PRIV PRIV [id number] [facility] 07:56:00 07:56:00 d_J [id number] Medica l 2021-07-31 2021-07-31 Outpatient Vito, PRIV PRIV [id number] 4-d 00:00:00 00:00:00 Mara [id number] 2021-07-31 2021-07-31 [facility] [id number] [facility] 00:00:00 00:00:00 [facility] - [facility] ical [address] [address] , Ph. 2021-07-27 2021-07-27 Outpatient [facility]_Tod PRIV PRIV [id number] [facility] 08:30:00 08:30:00 d_J [id number] Medica l 2021-07-27 2021-07-27 Outpatient Vito PRIV PRIV [id number] 00:00:00 00:00:00 Mara [id number] 2021-07-27 2021-07-27 [facility] [id number] [facility] 00:00:00 00:00:00 PIA [facility] - [facility] ical [address] [address] , Ph. 2021-07-19 2021-07-19 Outpatient [facility]_Tod PRIV PRIV [id number] [facility] 08:26:00 08:26:00 d_J [id number] Medica l 2021-07-19 2021-07-19 Outpatient Fabio, PRIV PRIV [id number] 00:00:00 00:00:00 Robert Mojica [id number] 2021-07-19 2021-07-19 [facility]:00 00:00:00 Fabio [facility] - Med ical MD: [id number], [place] [address] , Ph. 2021-07-19 2021-07-19 Outpatient Fabio, PRIV PRIV [id number] 00:00:00 00:00:00 Robert Mojica [id number] 2021-07-13 2021-07-13 Outpatient [facility]_Tod PRIV PRIV [id number] [facility] 02:12:00 02:12:00 d_J [id number] Medica l 2021-07-12 2021-07-12 Outpatient [facility]_Tod PRIV PRIV [id number] [facility] 05:07:00 05:07:00 d_J [id number] Medica l 2021-07-12 2021-07-12 Outpatient Leslie, PRIV PRIV [id number] 00:00:00 00:00:00 June [id number] 2021-07-12 2021-07-12[facility] 14 [facility]: [id number] , [place] [address] , Ph. 2021-07-12 2021-07-12 Outpatient Leslie PRIV PRIV [id number] 00:00:00 00:00:00 June [id number] 2021-07-11 2021-07-11 Outpatient GC_[facility]_Tod PRIV PRIV [id number] [facility] 10:53:00 10:53:00 d_J [id number] Medica l 2021-07-06 2021-07-06 Outpatient GC_BA[facility]_Spa PRIV PRIV [id number] [facility] 05:28:00 05:28:00 Portillo [id number] Medica l 2019-02-20 2019-02-20 Keven [facility] [place] - [id number] [place] 00:00:00 00:00:00 Christo Collins MD: [address] [place] [address], [place] [address] , Ph. 2018-11-13 2018-11-13 Keven [facility] [place] - [id number] [place] 00:00:00 00:00:00 Christo Collins MD: [address] [place] [address] 201, [place] [address] , Ph. 2018-10-25 2018-10-25 [facility] [place] - [id number] [place] 00:00:00 00:00:00 Christo Collins MD: [address] [place] [address] [address], [place] [address] , Ph. 2018-09-04 2018-09-04 [facility] [place] - [id number] [place] 00:00:00 00:00:00 Christo Collins MD: [address] [facility], Family [address], [place] [address] , Ph. 2017-09-07 2017-09-08 Inpatient Christiano GAYLE [facility] TELE [id number] [place] 15:44:00 18:20:00 K[facility] 2017-09-01 2017-09-04 Inpatient KHADAR PURI [facility] TELE [phone] [id number] [place] 20:55:00 18:24:00 [facility] Center Results Test Description Test Time Test Comments Results Result Comments Source CBC WITHOUT DIFF 2022-05-28 13:17:49 Test Item Value Reference Range Interpretation Comme nts WBC (test code = 6690-2) 14.49 See_Comment H [A utomated message] The system which generated this result transmitted ref erence range: 4.20 - 10.70 10 *3/?L. The reference range was not used to interpret this result as normal/abnormal . RBC (test code = 789-8) 2.72 See_Comment L [Au tomated message] The system which generated this result transmitted ref erence range: 4.26 - 5.52 10* 6/?L. The reference range was not used to interpret this result as normal/abnormal . HGB (test code = 718-7) 7.4 g/dL 12.2-16.4 L HCT (test code = 4544-3) 21.6 % 38.4-49.3 L MCH (test code = 785-6) 27.2 pg 26.1-32.7 MCV (test code = 787-2) 79.4 fL 81.7-95.6 L MCHC (test code = 786-4) 34.3 g/dL 31.2-35.0 PLT (test code = 777-3) 311 See_Comment [Au tomated message] The system which generated this result transmitted ref erence range: 150 - 328 10*3/ ?L. The reference range was not used to interpret this result as normal/abnormal . MPV (test code = 69474-0) 10.2 fL 9.8-13.0 RDW-CV (test code = 788-0) 20.8 % 12.1-15.4 H RDW-SD (test code = 43129-7) 59.4 fL 38.5-51.6 H NRBC x10^3 (test code = 0.06 See_Comment [Au tomated message] The system [id number]) which generated this result transmitted ref erence range: 10*3/?L. The re ference range was not used to interpret this result as bonnie l/abnormal. NRBC/100 WBC (test code = 0.4 See_Comment [ Automated message] The system 0476373694) which generated this result transmitted ref erence range: 0.0 - 10.0 /100 WBCs. The reference range was not used to interpret this result as normal/abnormal . IPF % (test code = 8904500479) Lab Interpretation (test code Abnormal = 66102-6) [facility] Test Item Value Reference Range Interpretation Comments MAGNESIUM (test code = 8886322365) 1.7 mg/dL 1.7-2.4 Lab Interpretation (test code = Normal 40075-9) [facility] 13:18:42 Test Item Value Reference Range Interpretation Comments PHOSPHORUS (test code = 4943993595) 4.2 mg/dL 2.5-5.0 Lab Interpretation (test code = Normal 97553-6) [facility] (NA, K, CL, CO2, GLUCOSE, BUN, CREATININE, CA)2022-05-27 13:18:41 Test Item Value Reference Range Interpretation Comments NA (test code = 131 mmol/L 135-145 L 3071156620) K (test code = 4.7 mmol/L 3.5-5.0 4538407911) CL (test code = 95 mmol/L 98-108 L 5651772287) CO2 TOTAL (test code = 26 mmol/L 23-31 8486907878) AGAP (test code = 10 2-16 3239424310) BUN (test code = 68 mg/dL 7-23 H 0157952275) GLUCOSE (test code = 83 mg/dL 70-110 7448275830) CREATININE (test code = 8.83 mg/dL 0.60-1.25 H 3106805813) CALCIUM (test code = 8.1 mg/dL 8.6-10.6 L 9300561858) eGFR (test code = 6.5 mL/min/1.73m2 9581547533) TAHIRA (test code = TAHIRA) Association of Glomerular Filtration Rate (GFR) and Staging of Kidney Disease* + --+ --+ ------+| GFR (mL/min/1.73 m2) ?| With Kidney Damage ?| ?Without Kidney Damage+ --------+ --------+ +| ?>90 ?| ?Stage one ?| ? Normal ?+ ---+ ---+ -------+| ?60-89 ?| ?Stage two ?| ? Decreased GFR ? + --+ --+ ------+| ?30-59 ?| ?Stage three ?| ? Stage three ? + --+ --+ ------+| ?15-29 ?| ?Stage four ? | ? Stage four ?+ ---+ ---+ -------+| ?<15 (or dialysis) ? ?| ?Stage five ? | ? Stage five ?+ ---+ ---+ -------+ *Each stage assumes the associated GFR level has been in effect for at least three months. ?Stages 1 to 5, with or without kidney disease, indicate chronic kidney disease. Notes: Determination of stages one and two (with eGFR >59mL/min/1.73 m2) requires estimation of kidney damage for at least three months as defined by structural or functional abnormalities of the kidney, manifested by either:Pathological abnormalities or Markers of kidney damage (including abnormalities in the composition of the blood or urine or abnormalities in imaging tests). Lab Interpretation Abnormal (test code = 49188-9) [facility] WITHOUT [id number] 12:45:23 Test Item Value Reference Range Interpretation Comments WBC (test code = 6690-2) 17.78 See_Comment H [A utomated message] The system [employer] generated this result transmit evelina reference range : 4.20 - 10.70 10*3/?L. The reference range was not used to interpret this result as normal/abnormal . RBC (test code = 789-8) 2.59 See_Comment L [Au tomated message] The system [employer] generated this result transmit evelina reference range : 4.26 - 5.52 10* 6/?L. The reference r lorena was not used to interpret this result as normal/abnormal . HGB (test code = 718-7) 6.9 g/dL 12.2-16.4 L HCT (test code = 4544-3) 20.1 % 38.4-49.3 L MCH (test code = 785-6) 26.6 pg 26.1-32.7 MCV (test code = 787-2) 77.6 fL 81.7-95.6 L MCHC (test code = 786-4) 34.3 g/dL 31.2-35.0 PLT (test code = 777-3) 283 See_Comment [Au tomated message] The system [facility] generated this result transmit evelina reference range : 150 - 328 10*3/?L. The reference range was not used to interpret this result as normal/abnormal . MPV (test code = 10.6 fL 9.8-13.0 07455-2) RDW-CV (test code = 20.4 % 12.1-15.4 H 788-0) RDW-SD (test code = 57.6 fL 38.5-51.6 H 97818-5) NRBC x10^3 (test code = 0.06 See_Comment [Au tomated message] 0154840190) The system [facility] generated this result transmit evelina reference range : 10*3/?L. The reference range was not used to interpret this result as normal/abnormal . NRBC/100 WBC (test code 0.3 See_Comment [Au tomated message] = 1920312946) The system [facility] generated this result transmit evelina reference range : 0.0 - 10.0 /100 WBC s. The reference r lorena was not used to interpret this result as normal/abnormal . IPF % (test code = 1925690623) Lab Interpretation (test Abnormal code = 34148-9) [facility] WITH [id number] 22:24:54 Test Item Value Reference Range Interpretation Comments WBC (test code = 17.72 See_Comment H [Automated 6690-2) message] The system which generated this result transmit evelina reference range : 4.20 - 10.70 10*3/?L. The reference range was not used to interpret this result as normal/abnormal . RBC (test code = 2.90 See_Comment L [Automated 789-8) message] The system which generated this result transmit evelina reference range : 4.26 - 5.52 10*6/?L. The reference range was not used to interpret this result as normal/abnormal . HGB (test code = 7.6 g/dL 12.2-16.4 L 718-7) HCT (test code = 22.3 % 38.4-49.3 L 4544-3) MCV (test code = 76.9 fL 81.7-95.6 L 787-2) MCH (test code = 26.2 pg 26.1-32.7 785-6) MCHC (test code = 34.1 g/dL 31.2-35.0 786-4) RDW-SD (test code = 54.9 fL 38.5-51.6 H 95522-7) RDW-CV (test code = 19.7 % 12.1-15.4 H 788-0) PLT (test code = 237 See_Comment [Automated 777-3) message] The system which generated this result transmit evelina reference range : 150 - 328 10*3/ ?L. The reference range was not u sed to interpret th is result as normal/abnormal . MPV (test code = 9.9 fL 9.8-13.0 09403-6) NRBC/100 WBC (test 0.3 See_Comment [Automat ed code = 7119052481) message] The system which generated this result transmit evelina reference range : 0.0 - 10.0 /100 WBCs. The reference range was not used to interpret this result as normal/abnormal . NRBC x10^3 (test code 0.06 See_Comment [Auto mated = 0791693151) message] The system which generated this result transmit evelina reference range : 10*3/?L. The reference range was not used to interpret this result as normal/abnormal . GRAN MAT (NEUT) % 86.4 % (test code = 770-8) IMM GRAN % (test code 0.80 % = 6040249269) LYMPH % (test code = 3.3 % 736-9) MONO % (test code = 7.3 % 5905-5) EOS % (test code = 1.9 % 713-8) BASO % (test code = 0.3 % 706-2) GRAN MAT x10^3(ANC) 15.31 10*3/uL 1.99-6.95 H (test code = 5583546720) IMM GRAN x10^3 (test 0.14 10*3/uL 0.00-0.06 H code = 6866902435) LYMPH x10^3 (test code 0.58 10*3/uL 1.09-3.23 L = 731-0) MONO x10^3 (test code 1.30 10*3/uL 0.36-1.02 H = 742-7) EOS x10^3 (test code = 0.34 10*3/uL 0.06-0.53 711-2) BASO x10^3 (test code 0.05 10*3/uL 0.01-0.09 = 704-7) SIDEROTIC GRAN (test Suggestive of A code = 7795-8) TARGET CELLS (test 2+ See_Comment A [Automat ed code = 37292-1) message] The system which generated this result transmit evelina reference range : (none). The reference range was not used to interpret this result as normal/abnormal . Lab Interpretation Abnormal (test code = 48219-3) [facility]GLU[facility]CA2+2022-05-25 21:17:38 Test Item Value Reference Range Interpretation Comments PH (test code = 2) 7.46 7.35-7.45 H PCO2 (test code = 35 See_Comment [Automate d message] 2527123489) The system [employer] generated this result transmit evelina reference range : 35 - 45 mmHg. The reference range was not used to interpret this result as normal/abnormal . PO2 (test code = 101 See_Comment H [Automated message] 0579082107) The system [employer] generated this result transmit evelina reference range : 80 - 100 mmHg. The reference range was not used to interpret this result as normal/abnormal . HCO3 (test code = 25 See_Comment [Automate d message] 0734214872) The system [employer] generated this result transmit evelina reference range : 22 - 26 mEq/L. The reference range was not used to interpret this result as normal/abnormal . BE (test code = 0.9 See_Comment [Automated message] 8317781375) The system [employer] generated this result transmit evelina reference range : -3.0 - 3.0 mEq/ L. The reference r lorena was not used to interpret this result as normal/abnormal . THB (test code = 8.6 g/dL 13.5-18.0 L 6240226444) %O2HB (test code = 96.4 % 94.0-99.0 7602549925) %COHB ART (test code = 1.1 % 0.0-1.5 6702874549) %METHB ART (test code = 0.3 % 0.4-1.5 L 5754343481) VOL%O2 ART (test code = 11.8 % 15.0-23.0 L 8631340109) NA (test code = 131 mmol/L 135-145 L 7901315329) K+ (test code = 4.3 mmol/L 3.5-5.0 0573087688) AC CA IONZ (test code = 4.70 mg/dL 4.50-5.30 9251768363) GLUCOSE (test code = 120 mg/dL 70-110 H 7206063757) Lab Interpretation Abnormal (test code = 21786-1) [facility] GLUCOSE (AUTOMATED)2022-05-25 20:50:25 Test Item Value Reference Range Interpretation Comments POCT GLU (test code = 7434314762) 182 mg/dL 70-110 H Lab Interpretation (test code = Abnormal 48153-1) [facility] RBC (in units), 1 Units 2022-05-25 20:12:38 Test Item Value Reference Range Interpretation Comments Cross Match Result Compatible (test code = 4409) ISBT Blood Type Code 6200 (test code = 553007) Unit Blood Type (test A Pos code = 4410) Unit Number (test [id number] code = 4411) Blood Expiration Date & Time (test code = 118880) Status Information Issued (test code = 4412) Product Red Blood Cells Identification (test code = 4413) Product Code (test J6037N03 Performed at [facility] code = 4414) Laboratory Services - [facility] Blood [address] [place] [address]Tiis Free: [phone] A No. [id number] [facility] CULTURE(AEROBIC/ANAEROBIC)2022-05-25 13:24:36 Test Item Value Reference Range Interpretation Comments TISSUE CULTURE No aerobic/anaerobic (test code = organisms isolated 57006-4) Gram stain (test No Polymorphonuclear code = 664-3) leukocytes [facility] METABOLIC PANEL (NA, K, CL, CO2, GLUCOSE, BUN, CREATININE, CA)2022-05-25 12:41:02 Test Item Value Reference Range Interpretation Comments NA (test code = 130 mmol/L 135-145 L 7004648526) K (test code = 6.4 mmol/L 3.5-5.0 HH Slight 6179054783) hemolysis CL (test code = 97 mmol/L 98-108 L 3564651476) CO2 TOTAL (test code 20 mmol/L 23-31 L = 0498819797) AGAP (test code = 13 2-16 3574005644) BUN (test code = 81 mg/dL 7-23 H Slight 6862011249) hemolysis GLUCOSE (test code = 82 mg/dL 70-110 4314969308) CREATININE (test code 9.31 mg/dL 0.60-1.25 H = 4492495079) CALCIUM (test code = 8.5 mg/dL 8.6-10.6 L 3913086939) eGFR (test code = 6.1 mL/min/1.73m2 6324367398) TAHIRA (test code = TAHIRA) Association of Glomerular Filtration Rate (GFR) and Staging of Kidney Disease* + -----+ --------+ +| GFR (mL/min/1.73 m2) ?| With Kidney Damage ?| ?Without Kidney Damage+ +------- +---- --+| ?>90 ?| ?Stage one ?| ? Normal ?+ ------+ ---------+--------- +| ?60-89 ?| ?Stage two ?| ? Decreased GFR ? + -----+ --------+ +| ?30-59 ?| ?Stage three ?| ? Stage three ? + -----+ --------+ +| ?15-29 ?| ?Stage four ? | ? Stage four ?+ ------+ ---------+--------- +| ?<15 (or dialysis) ? ?| ?Stage five ? | ? Stage five ?+ ------+ ---------+--------- + *Each stage assumes the associated GFR level has been in effect for at least three months. ?Stages 1 to 5, with or without kidney disease, indicate chronic kidney disease. Notes: Determination of stages one and two (with eGFR >59mL/min/1.73 m2) requires estimation of kidney damage for at least three months as defined by structural or functional abnormalities of the kidney, manifested by either:Pathological abnormalities or Markers of kidney damage (including abnormalities in the composition of the blood or urine or abnormalities in imaging tests). Lab Interpretation Abnormal (test code = 52972-6) [facility] 12:34:20 Test Item Value Reference Range Interpretation Comments MAGNESIUM (test code = 6261772988) 1.7 mg/dL 1.7-2.4 Lab Interpretation (test code = Normal 95021-9) [facility] 12:34:20 Test Item Value Reference Range Interpretation Comments PHOSPHORUS (test code = 6267503652) 3.9 mg/dL 2.5-5.0 Lab Interpretation (test code = Normal 89125-7) [facility] WITH [id number] 12:23:21 Test Item Value Reference Range Interpretation Comments WBC (test code = 16.30 See_Comment H [Automated 6690-2) message] The system which generated this result transmit evelina reference range : 4.20 - 10.70 10*3/?L. The reference range was not used to interpret this result as normal/abnormal . RBC (test code = 2.79 See_Comment L [Automated 789-8) message] The system which generated this result transmit evelina reference range : 4.26 - 5.52 10*6/?L. The reference range was not used to interpret this result as normal/abnormal . HGB (test code = 7.4 g/dL 12.2-16.4 L 718-7) HCT (test code = 21.4 % 38.4-49.3 L 4544-3) MCV (test code = 76.7 fL 81.7-95.6 L 787-2) MCH (test code = 26.5 pg 26.1-32.7 785-6) MCHC (test code = 34.6 g/dL 31.2-35.0 786-4) RDW-SD (test code = 54.4 fL 38.5-51.6 H 85774-9) RDW-CV (test code = 19.8 % 12.1-15.4 H 788-0) PLT (test code = 239 See_Comment [Automated 777-3) message] The system which generated this result transmit evelina reference range : 150 - 328 10*3/ ?L. The reference range was not u sed to interpret th is result as normal/abnormal . MPV (test code = 10.3 fL 9.8-13.0 89763-6) NRBC/100 WBC (test 0.6 See_Comment [Automat ed code = 5196840444) message] The system which generated this result transmit evelina reference range : 0.0 - 10.0 /100 WBCs. The reference range was not used to interpret this result as normal/abnormal . NRBC x10^3 (test code 0.09 See_Comment [Auto mated = 9565568703) message] The system which generated this result transmit evelina reference range : 10*3/?L. The reference range was not used to interpret this result as normal/abnormal . GRAN MAT (NEUT) % 75.2 % (test code = 770-8) IMM GRAN % (test code 0.70 % = 5157809794) LYMPH % (test code = 8.8 % 736-9) MONO % (test code = 10.2 % 5905-5) EOS % (test code = 4.8 % 713-8) BASO % (test code = 0.3 % 706-2) GRAN MAT x10^3(ANC) 12.25 10*3/uL 1.99-6.95 H (test code = 1722272844) IMM GRAN x10^3 (test 0.11 10*3/uL 0.00-0.06 H code = 8053989591) LYMPH x10^3 (test code 1.44 10*3/uL 1.09-3.23 = 731-0) MONO x10^3 (test code 1.67 10*3/uL 0.36-1.02 H = 742-7) EOS x10^3 (test code = 0.78 10*3/uL 0.06-0.53 H 711-2) BASO x10^3 (test code 0.05 10*3/uL 0.01-0.09 = 704-7) SIDEROTIC GRAN (test Suggestive of A code = 7795-8) TARGET CELLS (test 2+ See_Comment A [Automat ed code = 18140-8) message] The system which generated this result transmit evelina reference range : (none). The reference range was not used to interpret this result as normal/abnormal . REACT LYMPHS (test Rare code = 7413954257) Lab Interpretation Abnormal (test code = 98442-1) [facility] METABOLIC PANEL (NA, K, CL, CO2, GLUCOSE, BUN, CREATININE, CA)2022-05-24 13:28:58 Test Item Value Reference Range Interpretation Comments NA (test code = 136 mmol/L 135-145 2933832911) K (test code = 5.2 mmol/L 3.5-5.0 H Slight 4464650363) hemolysis CL (test code = 100 mmol/L 98-108 4030268478) CO2 TOTAL (test code 22 mmol/L 23-31 L = 6109344603) AGAP (test code = 14 2-16 5609806076) BUN (test code = 54 mg/dL 7-23 H Slight 9067230257) hemolysis GLUCOSE (test code = 87 mg/dL 70-110 9090809661) CREATININE (test code 7.75 mg/dL 0.60-1.25 H = 7058394895) CALCIUM (test code = 9.0 mg/dL 8.6-10.6 0906030285) eGFR (test code = 7.5 mL/min/1.73m2 7472218732) TAHIRA (test code = TAHIRA) Association of Glomerular Filtration Rate (GFR) and Staging of Kidney Disease* + -----+ --------+ +| GFR (mL/min/1.73 m2) ?| With Kidney Damage ?| ?Without Kidney Damage+ +------- +---- --+| ?>90 ?| ?Stage one ?| ? Normal ?+ ------+ ---------+--------- +| ?60-89 ?| ?Stage two ?| ? Decreased GFR ? + -----+ --------+ +| ?30-59 ?| ?Stage three ?| ? Stage three ? + -----+ --------+ +| ?15-29 ?| ?Stage four ? | ? Stage four ?+ ------+ ---------+--------- +| ?<15 (or dialysis) ? ?| ?Stage five ? | ? Stage five ?+ ------+ ---------+--------- + *Each stage assumes the associated GFR level has been in effect for at least three months. ?Stages 1 to 5, with or without kidney disease, indicate chronic kidney disease. Notes: Determination of stages one and two (with eGFR >59mL/min/1.73 m2) requires estimation of kidney damage for at least three months as defined by structural or functional abnormalities of the kidney, manifested by either:Pathological abnormalities or Markers of kidney damage (including abnormalities in the composition of the blood or urine or abnormalities in imaging tests). Lab Interpretation Abnormal (test code = 26351-1) [facility] 13:28:58 Test Item Value Reference Range Interpretation Comments MAGNESIUM (test code = 2002478167) 1.8 mg/dL 1.7-2.4 Lab Interpretation (test code = Normal 06089-6) [facility] 13:28:58 Test Item Value Reference Range Interpretation Comments PHOSPHORUS (test code = 3499944551) 4.5 mg/dL 2.5-5.0 Lab Interpretation (test code = Normal 08658-0) [facility] WITHOUT [id number] 12:11:49 Test Item Value Reference Range Interpretation Comments WBC (test code = 6690-2) 16.21 See_Comment H [A utomated message] The system [employer] generated this result transmit evelina reference range : 4.20 - 10.70 10*3/?L. The reference range was not used to interpret this result as normal/abnormal . RBC (test code = 789-8) 3.68 See_Comment L [Au tomated message] The system [employer] generated this result transmit evelina reference range : 4.26 - 5.52 10* 6/?L. The reference r lorena was not used to interpret this result as normal/abnormal . HGB (test code = 718-7) 9.7 g/dL 12.2-16.4 L HCT (test code = 4544-3) 29.2 % 38.4-49.3 L MCH (test code = 785-6) 26.4 pg 26.1-32.7 MCV (test code = 787-2) 79.3 fL 81.7-95.6 L MCHC (test code = 786-4) 33.2 g/dL 31.2-35.0 PLT (test code = 777-3) 286 See_Comment [Au tomated message] The system [employer] generated this result transmit evelina reference range : 150 - 328 10*3/?L. The reference range was not used to interpret this result as normal/abnormal . MPV (test code = 10.7 fL 9.8-13.0 81742-1) RDW-CV (test code = 20.7 % 12.1-15.4 H 788-0) RDW-SD (test code = 58.6 fL 38.5-51.6 H 18070-6) NRBC x10^3 (test code = 0.13 See_Comment [Au tomated message] 4672918905) The system [employer] generated this result transmit evelina reference range : 10*3/?L. The reference range was not used to interpret this result as normal/abnormal . NRBC/100 WBC (test code 0.8 See_Comment [Au tomated message] = 1170201250) The system [facility] generated this result transmit evelina reference range : 0.0 - 10.0 /100 WBC s. The reference r lorena was not used to interpret this result as normal/abnormal . IPF % (test code = 1757719212) Lab Interpretation (test Abnormal code = 05425-3) [facility] GLUCOSE (AUTOMATED)2022-05-24 10:49:51 Test Item Value Reference Range Interpretation Comments POCT GLU (test code = 5008385246) 98 mg/dL 70-110 Lab Interpretation (test code = Normal 05933-2) [facility] GLUCOSE (AUTOMATED)2022-05-24 10:21:18 Test Item Value Reference Range Interpretation Comments POCT GLU (test code = 7390112388) 70 mg/dL 70-110 Lab Interpretation (test code = Normal 07938-6) [facility] METABOLIC PANEL (NA, K, CL, CO2, GLUCOSE, BUN, CREATININE, CA)2022-05-22 12:56:46 Test Item Value Reference Range Interpretation Comments NA (test code = 134 mmol/L 135-145 L 9387773741) K (test code = 4.8 mmol/L 3.5-5.0 6039681014) CL (test code = 97 mmol/L 98-108 L 8875584327) CO2 TOTAL (test code = 24 mmol/L 23-31 5201656447) AGAP (test code = 13 2-16 6569911082) BUN (test code = 47 mg/dL 7-23 H 5241140323) GLUCOSE (test code = 105 mg/dL 70-110 0951996291) CREATININE (test code = 9.37 mg/dL 0.60-1.25 H 5386970682) CALCIUM (test code = 9.0 mg/dL 8.6-10.6 9854198199) eGFR (test code = 6.1 mL/min/1.73m2 6364960370) TAHIRA (test code = TAHIRA) Association of Glomerular Filtration Rate (GFR) and Staging of Kidney Disease* + --+ --+ ------+| GFR (mL/min/1.73 m2) ?| With Kidney Damage ?| ?Without Kidney Damage+ --------+ --------+ +| ?>90 ?| ?Stage one ?| ? Normal ?+ ---+ ---+ -------+| ?60-89 ?| ?Stage two ?| ? Decreased GFR ? + --+ --+ ------+| ?30-59 ?| ?Stage three ?| ? Stage three ? + --+ --+ ------+| ?15-29 ?| ?Stage four ? | ? Stage four ?+ ---+ ---+ -------+| ?<15 (or dialysis) ? ?| ?Stage five ? | ? Stage five ?+ ---+ ---+ -------+ *Each stage assumes the associated GFR level has been in effect for at least three months. ?Stages 1 to 5, with or without kidney disease, indicate chronic kidney disease. Notes: Determination of stages one and two (with eGFR >59mL/min/1.73 m2) requires estimation of kidney damage for at least three months as defined by structural or functional abnormalities of the kidney, manifested by either:Pathological abnormalities or Markers of kidney damage (including abnormalities in the composition of the blood or urine or abnormalities in imaging tests). Lab Interpretation Abnormal (test code = 48722-9) [facility] 12:56:46 Test Item Value Reference Range Interpretation Comments MAGNESIUM (test code = 3539711903) 1.9 mg/dL 1.7-2.4 Lab Interpretation (test code = Normal 79006-4) [facility] 12:56:46 Test Item Value Reference Range Interpretation Comments PHOSPHORUS (test code = 1114736904) 6.3 mg/dL 2.5-5.0 H Lab Interpretation (test code = Abnormal 82956-6) [facility] (NA, K, CL, CO2, GLUCOSE, BUN, CREATININE, CA)2022-05-22 12:56:46 Test Item Value Reference Range Interpretation Comments NA (test code = 134 mmol/L 135-145 L 9900376774) K (test code = 4.8 mmol/L 3.5-5.0 1799651098) CL (test code = 97 mmol/L 98-108 L 3759660736) CO2 TOTAL (test code = 24 mmol/L 23-31 5281013489) AGAP (test code = 13 2-16 9127437593) BUN (test code = 47 mg/dL 7-23 H 9953107414) GLUCOSE (test code = 105 mg/dL 70-110 8638533777) CREATININE (test code = 9.37 mg/dL 0.60-1.25 H 9816934801) CALCIUM (test code = 9.0 mg/dL 8.6-10.6 5583869815) eGFR (test code = 6.1 mL/min/1.73m2 9293489365) TAHIRA (test code = TAHIRA) Association of Glomerular Filtration Rate (GFR) and Staging of Kidney Disease* + --+ --+ ------+| GFR (mL/min/1.73 m2) ?| With Kidney Damage ?| ?Without Kidney Damage+ --------+ --------+ +| ?>90 ?| ?Stage one ?| ? Normal ?+ ---+ ---+ -------+| ?60-89 ?| ?Stage two ?| ? Decreased GFR ? + --+ --+ ------+| ?30-59 ?| ?Stage three ?| ? Stage three ? + --+ --+ ------+| ?15-29 ?| ?Stage four ? | ? Stage four ?+ ---+ ---+ -------+| ?<15 (or dialysis) ? ?| ?Stage five ? | ? Stage five ?+ ---+ ---+ -------+ *Each stage assumes the associated GFR level has been in effect for at least three months. ?Stages 1 to 5, with or without kidney disease, indicate chronic kidney disease. Notes: Determination of stages one and two (with eGFR >59mL/min/1.73 m2) requires estimation of kidney damage for at least three months as defined by structural or functional abnormalities of the kidney, manifested by either:Pathological abnormalities or Markers of kidney damage (including abnormalities in the composition of the blood or urine or abnormalities in imaging tests). Lab Interpretation Abnormal (test code = 72602-7) [facility] 12:56:46 Test Item Value Reference Range Interpretation Comments MAGNESIUM (test code = 4772952870) 1.9 mg/dL 1.7-2.4 Lab Interpretation (test code = Normal 20301-7) [facility] 12:56:46 Test Item Value Reference Range Interpretation Comments PHOSPHORUS (test code = 2274687420) 6.3 mg/dL 2.5-5.0 H Lab Interpretation (test code = Abnormal 05956-5) [facility]OL[facility] PAN[facility] (NA, K, CL, CO2, GLUCOSE, BUN, CREATININE, CA)2022-05-22 12:56:46 Test Item Value Reference Range Interpretation Comments NA (test code = 134 mmol/L 135-145 L 6436701991) K (test code = 4.8 mmol/L 3.5-5.0 4883448968) CL (test code = 97 mmol/L 98-108 L 6159005891) CO2 TOTAL (test code = 24 mmol/L 23-31 2261534793) AGAP (test code = 13 2-16 0061489983) BUN (test code = 47 mg/dL 7-23 H 3445217359) GLUCOSE (test code = 105 mg/dL 70-110 7229168425) CREATININE (test code = 9.37 mg/dL 0.60-1.25 H 8166507068) CALCIUM (test code = 9.0 mg/dL 8.6-10.6 3275175257) eGFR (test code = 6.1 mL/min/1.73m2 2314294144) TAHIRA (test code = TAHIRA) Association of Glomerular Filtration Rate (GFR) and Staging of Kidney Disease* + --+ --+ ------+| GFR (mL/min/1.73 m2) ?| With Kidney Damage ?| ?Without Kidney Damage+ --------+ --------+ +| ?>90 ?| ?Stage one ?| ? Normal ?+ ---+ ---+ -------+| ?60-89 ?| ?Stage two ?| ? Decreased GFR ? + --+ --+ ------+| ?30-59 ?| ?Stage three ?| ? Stage three ? + --+ --+ ------+| ?15-29 ?| ?Stage four ? | ? Stage four ?+ ---+ ---+ -------+| ?<15 (or dialysis) ? ?| ?Stage five ? | ? Stage five ?+ ---+ ---+ -------+ *Each stage assumes the associated GFR level has been in effect for at least three months. ?Stages 1 to 5, with or without kidney disease, indicate chronic kidney disease. Notes: Determination of stages one and two (with eGFR >59mL/min/1.73 m2) requires estimation of kidney damage for at least three months as defined by structural or functional abnormalities of the kidney, manifested by either:Pathological abnormalities or Markers of kidney damage (including abnormalities in the composition of the blood or urine or abnormalities in imaging tests). Lab Interpretation Abnormal (test code = 33833-7) [facility] 12[facility]56[facility] Test Item Value Reference Range Interpretation Comments MAGNESIUM (test code = 0111599707) 1.9 mg/dL 1.7-2.4 Lab Interpretation (test code = Normal 27841-6) [facility] 12:56:46 Test Item Value Reference Range Interpretation Comments PHOSPHORUS (test code = 7075335633) 6.3 mg/dL 2.5-5.0 H Lab Interpretation (test code = Abnormal 29665-9) [facility] CenterType and Screen - ONCE Rklxcrs7034-00-44 12:32:41 Test Item Value Reference Range Interpretation Comments ABO & RH (test code A POSITIVE Performe d at [facility] = 20) Laboratory [facility] Blood [address] [address]Ozrn Free: [phone] A No. [id number] IAT (test code = Negative Performed a t [facility] 1185) Laboratory [facility] Blood [address] [address]Yvxl Free: [phone] A No. [id number] [facility] and Screen - ONCE [id number] 12:32:41 Test Item Value Reference Range Interpretation Comments ABO & RH (test code A POSITIVE Performe d at [facility] = 20) Laboratory [facility] Blood [address] s [address]Fhoz Free: [phone] A No. [id number] IAT (test code = Negative Performed a t [facility] 1185) Laboratory [facility] Blood [address] s [address]Drzm Free: [phone] A No. [id number] [facility] and Screen - ONCE [id number] 12:32:41 Test Item Value Reference Range Interpretation Comments ABO & RH (test code A POSITIVE Performe d at [facility] = 20) Laboratory [facility] Blood [address] s [address]Vmwy Free: [phone] A No. [id number] IAT (test code = Negative Performed a t [facility] 1185) Laboratory [facility] Blood [address] , [place] [address]Amvx Free: [phone] A No. [id number] [facility] CenterProthrombin Time / [id number] 12:15:22 Test Item Value Reference Range Interpretation Comments PROTIME PATIENT (test 13.6 See_Comment H [Auto mated message] code = 5964-2) The system [employer] generated this result transmitted ref erence range: 10.1 - 1 2.6 Seconds. The reference range was not used to int erpret this result as normal/abnormal . INR (test code = 6301-6) 1.2 Nor mal INR <1.1; Warfarin Therap eutic range 2.0 to 3. 0 or 2.5 to 3.5, dep ending upon the indica tions. Lab Interpretation (test Abnormal code = 21563-9) [facility] CenterProthrombin Time / [id number] 12:15:22 Test Item Value Reference Range Interpretation Comments PROTIME PATIENT (test 13.6 See_Comment H [Auto mated message] code = 5964-2) The system [employer] generated this result transmitted ref erence range: 10.1 - 1 2.6 Seconds. The reference range was not used to int erpret this result as normal/abnormal . INR (test code = 6301-6) 1.2 Nor mal INR <1.1; Warfarin Therap eutic range 2.0 to 3. 0 or 2.5 to 3.5, dep ending upon the indica tions. Lab Interpretation (test Abnormal code = 43801-5) [facility] CenterProthrombin Time / [id number] 12:15:22 Test Item Value Reference Range Interpretation Comments PROTIME PATIENT (test 13.6 See_Comment H [Auto mated message] code = 5964-2) The system [employer] generated this result transmitted ref erence range: 10.1 - 1 2.6 Seconds. The reference range was not used to int erpret this result as normal/abnormal . INR (test code = 6301-6) 1.2 Nor mal INR <1.1; Warfarin Therap eutic range 2.0 to 3. 0 or 2.5 to 3.5, dep ending upon the indica tions. Lab Interpretation (test Abnormal code = 64122-3) [facility] WITH [id number] 12:09:22 Test Item Value Reference Range Interpretation Comments WBC (test code = 5.89 See_Comment [Automated 6690-2) message] The sy stem which generated this result transmitted reference range : 4.20 - 10.70 10*3/?L. The reference range was not used to interpret this result as normal/abnormal . RBC (test code = 3.92 See_Comment L [Automated 789-8) message] The sy stem which generated this result transmitted reference range : 4.26 - 5.52 10*6/?L. The reference range was not used to interpret this result as normal/abnormal . HGB (test code = 10.2 g/dL 12.2-16.4 L 718-7) HCT (test code = 30.2 % 38.4-49.3 L 4544-3) MCV (test code = 77.0 fL 81.7-95.6 L 787-2) MCH (test code = 26.0 pg 26.1-32.7 L 785-6) MCHC (test code = 33.8 g/dL 31.2-35.0 786-4) RDW-SD (test code = 56.2 fL 38.5-51.6 H 89721-7) RDW-CV (test code = 20.3 % 12.1-15.4 H 788-0) PLT (test code = 274 See_Comment [Automated 777-3) message] The sy stem which generated this result transmitted reference range : 150 - 328 10*3/ ?L. The reference r lorena was not used to interpret this result as normal/abnormal . MPV (test code = 10.4 fL 9.8-13.0 41916-4) NRBC/100 WBC (test 0.7 See_Comment [Automat ed code = 9814900537) message] The system which generated this result transmitted reference range : 0.0 - 10.0 /100 WBCs. The refer ence range was not u sed to interpret th is result as normal/abnormal . NRBC x10^3 (test code 0.04 See_Comment [Auto mated = 4984203088) message] The s ystem which generated this result transmitted reference range : 10*3/?L. The reference range was not used to interpret this result as normal/abnormal . GRAN MAT (NEUT) % 56.8 % (test code = 770-8) IMM GRAN % (test code 0.70 % = 7595963506) LYMPH % (test code = 19.5 % 736-9) MONO % (test code = 15.1 % 5905-5) EOS % (test code = 6.5 % 713-8) BASO % (test code = 1.4 % 706-2) GRAN MAT x10^3(ANC) 3.35 10*3/uL 1.99-6.95 (test code = 3631490872) IMM GRAN x10^3 (test 0.04 10*3/uL 0.00-0.06 code = 6150066621) LYMPH x10^3 (test code 1.15 10*3/uL 1.09-3.23 = 731-0) MONO x10^3 (test code 0.89 10*3/uL 0.36-1.02 = 742-7) EOS x10^3 (test code = 0.38 10*3/uL 0.06-0.53 711-2) BASO x10^3 (test code 0.08 10*3/uL 0.01-0.09 = 704-7) Lab Interpretation Abnormal (test code = 38175-0) [facility] WITH [id number] 12:09:22 Test Item Value Reference Range Interpretation Comments WBC (test code = 5.89 See_Comment [Automated 2190-2) message] The sy stem which generated this result transmitted reference range : 4.20 - 10.70 10*3/?L. The reference range was not used to interpret this result as normal/abnormal . RBC (test code = 3.92 See_Comment L [Automated 219-8) message] The sy stem which generated this result transmitted reference range : 4.26 - 5.52 10*6/?L. The reference range was not used to interpret this result as normal/abnormal . HGB (test code = 10.2 g/dL 12.2-16.4 L 718-7) HCT (test code = 30.2 % 38.4-49.3 L 4544-3) MCV (test code = 77.0 fL 81.7-95.6 L 787-2) MCH (test code = 26.0 pg 26.1-32.7 L 785-6) MCHC (test code = 33.8 g/dL 31.2-35.0 786-4) RDW-SD (test code = 56.2 fL 38.5-51.6 H 56529-8) RDW-CV (test code = 20.3 % 12.1-15.4 H 788-0) PLT (test code = 274 See_Comment [Automated 777-3) message] The sy stem which generated this result transmitted reference range : 150 - 328 10*3/ ?L. The reference r lorena was not used to interpret this result as normal/abnormal . MPV (test code = 10.4 fL 9.8-13.0 96487-0) NRBC/100 WBC (test 0.7 See_Comment [Automat ed code = 9000401729) message] The system which generated this result transmitted reference range : 0.0 - 10.0 /100 WBCs. The refer ence range was not u sed to interpret th is result as normal/abnormal . NRBC x10^3 (test code 0.04 See_Comment [Auto mated = 4769403290) message] The s ystem which generated this result transmitted reference range : 10*3/?L. The reference range was not used to interpret this result as normal/abnormal . GRAN MAT (NEUT) % 56.8 % (test code = 770-8) IMM GRAN % (test code 0.70 % = 5998894834) LYMPH % (test code = 19.5 % 736-9) MONO % (test code = 15.1 % 5905-5) EOS % (test code = 6.5 % 713-8) BASO % (test code = 1.4 % 706-2) GRAN MAT x10^3(ANC) 3.35 10*3/uL 1.99-6.95 (test code = 3519277185) IMM GRAN x10^3 (test 0.04 10*3/uL 0.00-0.06 code = 2586563691) LYMPH x10^3 (test code 1.15 10*3/uL 1.09-3.23 = 731-0) MONO x10^3 (test code 0.89 10*3/uL 0.36-1.02 = 742-7) EOS x10^3 (test code = 0.38 10*3/uL 0.06-0.53 711-2) BASO x10^3 (test code 0.08 10*3/uL 0.01-0.09 = 704-7) Lab Interpretation Abnormal (test code = 22715-3) [facility] WITH [id number] 12:09:22 Test Item Value Reference Range Interpretation Comments WBC (test code = 5.89 See_Comment [Automated 6690-2) message] The sy stem which generated this result transmitted reference range : 4.20 - 10.70 10*3/?L. The reference range was not used to interpret this result as normal/abnormal . RBC (test code = 3.92 See_Comment L [Automated 789-8) message] The sy stem which generated this result transmitted reference range : 4.26 - 5.52 10*6/?L. The reference range was not used to interpret this result as normal/abnormal . HGB (test code = 10.2 g/dL 12.2-16.4 L 718-7) HCT (test code = 30.2 % 38.4-49.3 L 4544-3) MCV (test code = 77.0 fL 81.7-95.6 L 787-2) MCH (test code = 26.0 pg 26.1-32.7 L 785-6) MCHC (test code = 33.8 g/dL 31.2-35.0 786-4) RDW-SD (test code = 56.2 fL 38.5-51.6 H 93541-8) RDW-CV (test code = 20.3 % 12.1-15.4 H 788-0) PLT (test code = 274 See_Comment [Automated 777-3) message] The sy stem which generated this result transmitted reference range : 150 - 328 10*3/ ?L. The reference r lorena was not used to interpret this result as normal/abnormal . MPV (test code = 10.4 fL 9.8-13.0 24674-8) NRBC/100 WBC (test 0.7 See_Comment [Automat ed code = 3062123456) message] The system which generated this result transmitted reference range : 0.0 - 10.0 /100 WBCs. The refer ence range was not u sed to interpret th is result as normal/abnormal . NRBC x10^3 (test code 0.04 See_Comment [Auto mated = 6656844598) message] The s ystem which generated this result transmitted reference range : 10*3/?L. The reference range was not used to interpret this result as normal/abnormal . GRAN MAT (NEUT) % 56.8 % (test code = 770-8) IMM GRAN % (test code 0.70 % = 6571360358) LYMPH % (test code = 19.5 % 736-9) MONO % (test code = 15.1 % 5905-5) EOS % (test code = 6.5 % 713-8) BASO % (test code = 1.4 % 706-2) GRAN MAT x10^3(ANC) 3.35 10*3/uL 1.99-6.95 (test code = 3334112347) IMM GRAN x10^3 (test 0.04 10*3/uL 0.00-0.06 code = 6372900652) LYMPH x10^3 (test code 1.15 10*3/uL 1.09-3.23 = 731-0) MONO x10^3 (test code 0.89 10*3/uL 0.36-1.02 = 742-7) EOS x10^3 (test code = 0.38 10*3/uL 0.06-0.53 711-2) BASO x10^3 (test code 0.08 10*3/uL 0.01-0.09 = 704-7) Lab Interpretation Abnormal (test code = 17321-2) [facility] (Lab Only)2022-05-19 20:28:54 Test Item Value Reference Range Interpretation Comments ABO & RH (test code A Positive Performe d at [facility] = 20) Laboratory [facility] Blood Bank[address] [place], [place] [address]ellen [address]Zxqj Free: [phone] A No. [id number] [facility] Confirmation (Lab Only)2022-05-19 20:28:54 Test Item Value Reference Range Interpretation Comments ABO & RH (test code A Positive Performe d at [facility] = 20) Laboratory [facility] Blood [address] [place] [address]Amqe Free: [phone] A No. [id number] [facility] Confirmation (Lab Only)2022-05-19 20:28:54 Test Item Value Reference Range Interpretation Comments ABO & RH (test code A Positive Performe d at [facility] = 20) Laboratory [facility] Blood [address] [address]Crvx Free: [phone] A No. [id number] [facility] and Screen - ONCE [id number] 19:17:40 Test Item Value Reference Range Interpretation Comments ABO & RH (test code A POSITIVE Performe d at [facility] = 20) Laboratory [facility] Blood [address] [address]Kcpn Free: [phone] A No. [id number] IAT (test code = Negative Performed a t [facility] 1185) Laboratory [facility] Blood [address] [address]Goux Free: [phone] A No. [id number] [facility] and Screen - ONCE [id number] 19:17:40 Test Item Value Reference Range Interpretation Comments ABO & RH (test code A POSITIVE Performe d at [facility] = 20) Laboratory [facility] Blood [address] [place] [address]Cjmh Free: [phone] A No. [id number] IAT (test code = Negative Performed a t [facility] 1185) Laboratory [facility] Blood [address] s [address]Mpok Free: [phone] A No. [id number] [facility] and Screen - ONCE [id number] 19:17:40 Test Item Value Reference Range Interpretation Comments ABO & RH (test code A POSITIVE Performe d at [facility] = 20) Laboratory [facility] Blood Bank3 [address] [facility] s [address]Pseb Free: [phone] A No. [id number] IAT (test code = Negative Performed a t [facility] 1185) Laboratory [facility] Blood Bank3 [address] [facility] s [address]Qbgl Free: [phone] A No. [id number] [facility] CenterB[facility]UID (BACTEC BOTTLE)2022-05-18 20:01:41 Test Item Value Reference Range Interpretation Comments Body Fluid No organisms No growth Previous prelim inary Culture isolated verified result was Screen-Aerobic Culture In Pr ogress (test code = on 05/13/2022 at 1702 [id number]) CSTPrevious preliminary zbigniew ified result was No g rowth at 24 hours on 05/14/2022 at 14 01 CSTPrevious preliminary zbigniew ified result was No g rowth at 48 hours on 05/15/2022 at 14 01 CSTPrevious preliminary zbigniew ified result was No g rowth at 72 hours on 05/16/2022 at 14 01 CSTPrevious preliminary zbigniew ified result was No g rowth at 4 days on 05/17/2022 at [address] DEPART[address] Body Fluid No organisms No growth Previous prelim inary Culture isolated verified result was Screen-Anaerobic Culture In Progress (test code = on 05/13/2022 at 1702 [id number]) CSTPrevious preliminary zbigniew ified result was No g rowth at 24 hours on 05/14/2022 at 14 01 CSTPrevious preliminary zbigniew ified result was No g rowth at 48 hours on 05/15/2022 at 14 01 CSTPrevious preliminary zbigniew ified result was No g rowth at 72 hours on 05/16/2022 at 14 01 CSTPrevious preliminary zbigniew ified result was No g rowth at 4 days on 05/17/2022 at [address] DEPARTMENT [facility] (BACTEC BOTTLE)2022-05-18 20:01:41 Test Item Value Reference Range Interpretation Comments Body Fluid No organisms No growth Previous prelim inary Culture isolated verified result was Screen-Aerobic Culture In Pr ogress (test code = on 05/13/2022 at 1702 [id number]) CSTPrevious preliminary zbigniew ified result was No g rowth at 24 hours on 05/14/2022 at 14 01 CSTPrevious preliminary zbigniew ified result was No g rowth at 48 hours on 05/15/2022 at 14 01 CSTPrevious preliminary zbigniew ified result was No g rowth at 72 hours on 05/16/2022 at 14 01 CSTPrevious preliminary zbigniew ified result was No g rowth at 4 days on 05/17/2022 at [address] DEPARTMENT Body Fluid No organisms No growth Previous prelim inary Culture isolated verified result was Screen-Anaerobic Culture In Progress (test code = on 05/13/2022 at 1702 [id number]) CSTPrevious preliminary zbigniew ified result was No g rowth at 24 hours on 05/14/2022 at 14 01 CSTPrevious preliminary zbigniew ified result was No g rowth at 48 hours on 05/15/2022 at 14 01 CSTPrevious preliminary zbigniew ified result was No g rowth at 72 hours on 05/16/2022 at 14 01 CSTPrevious preliminary zbigniew ified result was No g rowth at 4 days on 05/17/2022 at [address] DEPARTMENT [facility] (BACTEC BOTTLE)2022-05-18 20:01:41 Test Item Value Reference Range Interpretation Comments Body Fluid No organisms No growth Previous prelim inary Culture isolated verified result was Screen-Aerobic Culture In Pr ogress (test code = on 05/13/2022 at 1702 [id number]) CSTPrevious preliminary zbigniew ified result was No g rowth at 24 hours on 05/14/2022 at 14 01 CSTPrevious preliminary zbigniew ified result was No g rowth at 48 hours on 05/15/2022 at 14 01 CSTPrevious preliminary zbigniew ified result was No g rowth at 72 hours on 05/16/2022 at 14 01 CSTPrevious preliminary zbigniew ified result was No g rowth at 4 days on 05/17/2022 at [address] DEPARTMENT Body Fluid No organisms No growth Previous prelim inary Culture isolated verified result was Screen-Anaerobic Culture In Progress (test code = on 05/13/2022 at 1702 [id number]) CSTPrevious preliminary zbigniew ified result was No g rowth at 24 hours on 05/14/2022 at 14 01 CSTPrevious preliminary zbigniew ified result was No g rowth at 48 hours on 05/15/2022 at 14 01 CSTPrevious preliminary zbigniew ified result was No g rowth at 72 hours on 05/16/2022 at 14 01 CSTPrevious preliminary zbigniew ified result was No g rowth at 4 days on 05/17/2022 at [address] DEPARTMENT [facility] CenterGlucose, [id number] 01:31:21 Test Item Value Reference Range Interpretation Comments GLUCOSE (test code = 4009259081) 102 mg/dL 70-110 Lab Interpretation (test code = Normal 95771-9) [facility] CenterProtein Total [id number] 01:31:21 Test Item Value Reference Range Interpretation Comments T PROTEIN (test code = 0391614506) 10.2 g/dL 6.3-8.2 H Lab Interpretation (test code = Abnormal 27713-7) [facility] CenterLactate Pmeswwojlburw3004-24-56 01:31:21 Test Item Value Reference Range Interpretation Comments LDH (test code = 3080594022) 265 U/L 120-246 H Slight hemolysis Lab Interpretation (test Abnormal code = 25957-4) [facility] CenterGlucose, [id number] 01:31:21 Test Item Value Reference Range Interpretation Comments GLUCOSE (test code = 2399635054) 102 mg/dL 70-110 Lab Interpretation (test code = Normal 41107-2) [facility] CenterLactate Adcctxxmkkueg9127-76-11 01:31:21 Test Item Value Reference Range Interpretation Comments LDH (test code = 2200701001) 265 U/L 120-246 H Slight hemolysis Lab Interpretation (test Abnormal code = 36651-2) [facility] CenterProtein Total Tmvtm8029-22-63 01:31:21 Test Item Value Reference Range Interpretation Comments T PROTEIN (test code = 8002850780) 10.2 g/dL 6.3-8.2 H Lab Interpretation (test code = Abnormal 22018-8) [facility] CenterGlucose, Eboby4647-67-70 01:31:21 Test Item Value Reference Range Interpretation Comments GLUCOSE (test code = 0334954493) 102 mg/dL 70-110 Lab Interpretation (test code = Normal 38595-7) [facility] CenterL[facility]ate Fdfgshitzqnzb0671-61-48 01:31:21 Test Item Value Reference Range Interpretation Comments LDH (test code = 0171408905) 265 U/L 120-246 H Slight hemolysis Lab Interpretation (test Abnormal code = 43725-2) [facility] CenterProtein Total Gvgsu8472-24-81 01:31:21 Test Item Value Reference Range Interpretation Comments T PROTEIN (test code = 7405688394) 10.2 g/dL 6.3-8.2 H Lab Interpretation (test code = Abnormal 86025-7) [facility] CenterGlucose, Eicer2074-19-92 01:31:21 Test Item Value Reference Range Interpretation Comments GLUCOSE (test code = 4331597384) 102 mg/dL 70-110 Lab Interpretation (test code = Normal 01946-5) [facility] CenterL[facility] Kovtsinuurvxm1006-23-46 01:31:21 Test Item Value Reference Range Interpretation Comments LDH (test code = 5914776102) 265 U/L 120-246 H Slight hemolysis Lab Interpretation (test Abnormal code = 07902-0) [facility] CenterProtein Total Mrhwg2572-80-83 01:31:21 Test Item Value Reference Range Interpretation Comments T PROTEIN (test code = 1150393422) 10.2 g/dL 6.3-8.2 H Lab Interpretation (test code = Abnormal 45892-0) [facility] CenterTransthoracic echo (TTE)2022-05-10 22:33:49 Test Item Value Reference Range Interpretation Comments Height (test code = 68 in 7734761719) Weight (test code = 167 lbs 4082893009) Systolic BP (test 152 mmHg code = 7614818939) Diastolic BP (test 117 mmHg code = 6291997359) Heart Rate (test code 71 bpm = 6112557792) LVOT stroke volume 59.00 cm3 (test code = 8988095752) LVOT diameter (test 2.14 cm code = 1000544995) LVOT area (test code 3.60 cm2 = 9503717270) MV Peak E Tiago (test 61.8 cm/s code = 1641724772) MV Peak A Tiago (test 94.1 cm/s code = 3481615269) E/A ratio (test code 0.66 ratio = 4978896276) E wave decelartion 0.29 s time (test code = 0316653008) MV E/e' septal (test 3.4 cm/s code = 8152672440) LA Volume Index (BP) 18.2 mL/m2 (test code = 7585852253) LA volume (BP) (test 34.5 mL code = 2918590513) LVOT peak tiago (test 104.1 cm/s code = 1024459085) LVOT mn grad (test 2.1 mmHg code = 7917163469) BSA (test code = 1.89 m2 2244858718) LA size (test code = 2.9 cm 1625336427) LAV(MOD-sp2) (test 38.30 mL code = 0819667026) LAV(MOD-sp4) (test 28.40 mL code = 5463804267) Tapse (test code = 1.30 cm 6203787922) AV LVOT peak gradient 4.3 mmHg (test code = 9337442022) LVOT peak VTI (test 16.3 cm code = 3330824197) LV V1 mean (test code 68.20 cm/s = 6372371982) MV Prop V (test code 33.40 cm/s = 3639643878) TR Peak Tiago (test 226.2 cm/s code = 6190889602) Triscuspid Valve 20.5 mmHg Regurgitation Peak Gradient (test code = 2968007520) Ao root diam (test 3.50 cm code = 3931257086) Aortic root (test 3.5 cm code = 4606435889) Ao root annulus (test 3.5 cm code = 4225729698) A2C EF (test code = 44.80 % 3777016313) EF(sp2-el) (test code 47.40 % = 4155126174) SV(MOD-sp2) (test 20.30 mL code = 5742335909) LV Diastolic Volume 61.3 mL (BP) (test code = 6578200323) A4C EF (test code = 50.90 % 5845688844) EF(MOD-bp) (test code 50.90 % = 9387689091) EF(sp4-el) (test code 52.80 % = 8211257032) LV Systolic Volume 30.1 mL (BP) (test code = 6899426841) SV(MOD-bp) (test code 31.20 mL = 9760611385) SV(MOD-sp4) (test 39.30 mL code = 9496273251) SV(sp4-el) (test code 43.60 mL = 3030209129) EF (test code = 51 4671139048) Left Ventricular 31.2 mL Stroke Volume by 2-D Biplane-MOD (test code = 0796702) Aortic valve mean 89.9 cm/s velocity (test code = 4323290706) Ao peak tiago (test 135.1 cm/s code = 9835036118) Ao VTI (test code = 24.1 cm 3963286529) AV area by cont VTI 2.5 cm2 (test code = 4379159538) AV area peak tiago 2.8 cm2 (test code = 8584930855) Ao max PG (test code 7.30 mm[Hg] = 3148452334) AV peak gradient 7.3 mmHg (test code = 2557988124) AV valve area (test 2.45 cm2 code = 3340078447) AV mean gradient 3.5 mmHg (test code = 4039140537) LV Diastolic Volume 32.4 mL/m2 Index (BP) (test code = 7751856120) LV Systolic Volume 15.9 mL/m2 Index (BP) (test code = 2018589034) LVIDS (test code = 3.00 cm 0350883014) Left Ventricular End 35.4 mL Systolic Volume by Teichholz Method (test code = 5227543) EF(Teich) (test code 49.30 % = 3058113959) LVIDD (test code = 4.00 cm 6519815555) Left Ventricular End 69.7 mL Diastolic Volume by Teichholz Method (test code = 3503803) FS (test code = 25 % 9362771149) EF - 2D (test code = 49.30 % 12650428) Radiology Study observation (narrative) (test code = 59178-2) TAHIRA (test code = TAHIRA) ?Left?Ventricle: Left ventricle size is normal. There is severe concentric hypertrophy. Mild global hypokinesis present. Mildly reduced systolic function with a visually estimated EF of 45 - 50%. There is grade 1 diastolic dysfunction and impaired relaxation. Normal left ventricular filling pressure. ?Left?Atrium: Left atrium size is normal. ?Tricuspid?Valve: Tricuspid valve structure is normal. Mild transvalvular regurgitation. Insufficient regurgant jet to estimate RVSP. Left VentricleLeft ventricle size is normal. There is severe concentric hypertrophy. Mild global hypokinesis present. Mildly reduced systolic function with a visually estimated EF of 45 - 50%. There is grade 1 diastolic dysfunction and impaired relaxation. Normal left ventricular filling pressure.Right VentricleRight ventricle size is normal. Increased wall thickness. Normal systolic function. Echocardiographic features suggestive of moderator band.Left AtriumLeft atrium size is normal.Right AtriumRight atrium size is normal.IVC/SVCIVC diameter is less than or equal to 21 mm and decreases greater than 50% during inspiration; therefore the estimated right atrial pressure is normal (~0-5 mmHg). IVC normal in size and respiratory variation.Mitral ValveMild posterior mitral annular calcification.Tricuspid ValveTricuspid valve structure is normal. Mild transvalvular regurgitation. Insufficient regurgant jet to estimate RVSP.Aortic ValveMildly thickened cusps. Mildly calcified cusps. No hemodynamically significant .Pulmonic ValveNot well visualized.Ascending AortaNormal sized sinus of Valsalva.PericardiumThe pericardium is normal. No pericardial effusion.Study DetailsStudy quality was good. A complete echocardiogram was performed using 2D, color flow Doppler, spectral Doppler and strain. [facility] [id number] 19:04:03 Test Item Value Reference Range Interpretation Comments CEA (test code = 3.7 ng/mL 0.0-10.0 8857397360) TAHIRA (test code = TAHIAR) CEA Ranges: Non-Smokers ?0-5.0 ng/mLSmokers ? ? ?0-10.0 ng/mL Lab Interpretation (test Normal code = 52374-4) [facility] [id number] 19:04:03 Test Item Value Reference Range Interpretation Comments CEA (test code = 3.7 ng/mL 0.0-10.0 8213595413) TAHIRA (test code = TAHIRA) CEA Ranges: Non-Smokers ?0-5.0 ng/mLSmokers ? ? ?0-10.0 ng/mL Lab Interpretation (test Normal code = 53706-4) [facility] [id number] 19:04:03 Test Item Value Reference Range Interpretation Comments CEA (test code = 3.7 ng/mL 0.0-10.0 1244855281) TAHIRA (test code = TAHIRA) CEA Ranges: Non-Smokers ?0-5.0 ng/mLSmokers ? ? ?0-10.0 ng/mL Lab Interpretation (test Normal code = 90386-8) [facility] [id number] 19:04:03 Test Item Value Reference Range Interpretation Comments CEA (test code = 3.7 ng/mL 0.0-10.0 4343098201) TAHIRA (test code = TAHIRA) CEA Ranges: Non-Smokers ?0-5.0 ng/mLSmokers ? ? ?0-10.0 ng/mL Lab Interpretation (test Normal code = 59905-7) [place] [id number] 18:27:40 Test Item Value Reference Range Interpretation Comments CA-125 (test code = 0172272281) 10.3 U/mL 0.0-35.0 Lab Interpretation (test code = Normal 28214-9) [place] [id number] 18:27:40 Test Item Value Reference Range Interpretation Comments CA-125 (test code = 1043605982) 10.3 U/mL 0.0-35.0 Lab Interpretation (test code = Normal 16985-8) [place] [id number] 18:27:40 Test Item Value Reference Range Interpretation Comments CA-125 (test code = 9778775461) 10.3 U/mL 0.0-35.0 Lab Interpretation (test code = Normal 62574-0) [place] [id number] 18:27:40 Test Item Value Reference Range Interpretation Comments CA-125 (test code = 6228327430) 10.3 U/mL 0.0-35.0 Lab Interpretation (test code = Normal 03432-0) [facility] ([facility]Ab)2022-05-10 11:41:32 Test Item Value Reference Range Interpretation Comments HBsAB (test code = Positive 4051171239) HBsAb 397.00 mIU/mL Semi-Quantitative (test code = 2475705159) TAHIRA (test code = Interpretation: TAHIRA) ?Hepatitis B Surface Antibody ? Negative - Patient is considered to be not immune to infection with HBV. ? ? Positive - Anti-HBs detected at greater than or equal to 12 mIU/mL. ?Patient is considered to be immune to infection with HBV. ? [facility] B Core Antibody, [id number] 11:41:32 Test Item Value Reference Range Interpretation Comments HBC (test code = 8456165524) Negative HBC Semi-Quantitative (test code = 3.09 2529448459) [facility] B Surface Antibody (HBsAb)2022-05-10 11:41:32 Test Item Value Reference Range Interpretation Comments HBsAB (test code = Positive 3557090626) HBsAb 397.00 mIU/mL Semi-Quantitative (test code = 3968725159) TAHIRA (test code = Interpretation: TAHIRA) ?Hepatitis B Surface Antibody ? Negative - Patient is considered to be not immune to infection with HBV. ? ? Positive - Anti-HBs detected at greater than or equal to 12 mIU/mL. ?Patient is considered to be immune to infection with HBV. ? [facility] B Core Antibody, [id number] 11:41:32 Test Item Value Reference Range Interpretation Comments HBC (test code = 3520699370) Negative HBC Semi-Quantitative (test code = 3.09 3320461940) [facility] B Surface Antibody (HBsAb)2022-05-10 11:41:32 Test Item Value Reference Range Interpretation Comments HBsAB (test code = Positive 3901911071) HBsAb 397.00 mIU/mL Semi-Quantitative (test code = 1335635072) TAHIRA (test code = Interpretation: TAHIRA) ?Hepatitis B Surface Antibody ? Negative - Patient is considered to be not immune to infection with HBV. ? ? Positive - Anti-HBs detected at greater than or equal to 12 mIU/mL. ?Patient is considered to be immune to infection with HBV. ? [facility] B Core Antibody, [id number] 11:41:32 Test Item Value Reference Range Interpretation Comments HBC (test code = 6910851510) Negative HBC Semi-Quantitative (test code = 3.09 7351703930) [facility] B Surface Antibody (HBsAb)2022-05-10 11:41:32 Test Item Value Reference Range Interpretation Comments HBsAB (test code = Positive 3021385708) HBsAb 397.00 mIU/mL Semi-Quantitative (test code = 5321025347) TAHIRA (test code = Interpretation: TAHIRA) ?Hepatitis B Surface Antibody ? Negative - Patient is considered to be not immune to infection with HBV. ? ? Positive - Anti-HBs detected at greater than or equal to 12 mIU/mL. ?Patient is considered to be immune to infection with HBV. ? [facility] B Core Antibody, [id number] 11:41:32 Test Item Value Reference Range Interpretation Comments HBC (test code = 6248224741) Negative HBC Semi-Quantitative (test code = 3.09 7590689154) [facility] WITH [id number] 04:32:32 Test Item Value Reference Range Interpretation Comments WBC (test code = 8.57 See_Comment [Automated 6590-2) message] The sy stem which generated this result transmitted reference range : 4.20 - 10.70 10*3/?L. The reference range was not used to interpret this result as normal/abnormal . RBC (test code = 4.41 See_Comment [Automated 485-8) message] The sy stem which generated this result transmitted reference range : 4.26 - 5.52 10*6/?L. The reference range was not used to interpret this result as normal/abnormal . HGB (test code = 11.5 g/dL 12.2-16.4 L 718-7) HCT (test code = 34.1 % 38.4-49.3 L 4544-3) MCV (test code = 77.3 fL 81.7-95.6 L 787-2) MCH (test code = 26.1 pg 26.1-32.7 785-6) MCHC (test code = 33.7 g/dL 31.2-35.0 786-4) RDW-SD (test code = 55.4 fL 38.5-51.6 H 16494-4) RDW-CV (test code = 20.2 % 12.1-15.4 H 788-0) PLT (test code = 352 See_Comment H [Automated 777-3) message] The sy stem which generated this result transmitted reference range : 150 - 328 10*3/ ?L. The reference r lorena was not used to interpret this result as normal/abnormal . MPV (test code = 10.9 fL 9.8-13.0 33562-2) NRBC/100 WBC (test 0.0 See_Comment [Automat ed code = 2896122805) message] The system which generated this result transmitted reference range : 0.0 - 10.0 /100 WBCs. The refer ence range was not u sed to interpret th is result as normal/abnormal . NRBC x10^3 (test code See_Comment [Auto mated = 9488219246) message] The s ystem which generated this result transmitted reference range : 10*3/?L. The reference range was not used to interpret this result as normal/abnormal . GRAN MAT (NEUT) % 66.2 % (test code = 770-8) IMM GRAN % (test code 0.60 % = 7245738099) LYMPH % (test code = 14.8 % 736-9) MONO % (test code = 15.3 % 5905-5) EOS % (test code = 2.2 % 713-8) BASO % (test code = 0.9 % 706-2) GRAN MAT x10^3(ANC) 5.67 10*3/uL 1.99-6.95 (test code = 6066870119) IMM GRAN x10^3 (test 0.05 10*3/uL 0.00-0.06 code = 0009635672) LYMPH x10^3 (test code 1.27 10*3/uL 1.09-3.23 = 731-0) MONO x10^3 (test code 1.31 10*3/uL 0.36-1.02 H = 742-7) EOS x10^3 (test code = 0.19 10*3/uL 0.06-0.53 711-2) BASO x10^3 (test code 0.08 10*3/uL 0.01-0.09 = 704-7) Lab Interpretation Abnormal (test code = 62902-1) [facility] WITH [id number] 04:32:32 Test Item Value Reference Range Interpretation Comments WBC (test code = 8.57 See_Comment [Automated 6690-2) message] The sy stem which generated this result transmitted reference range : 4.20 - 10.70 10*3/?L. The reference range was not used to interpret this result as normal/abnormal . RBC (test code = 4.41 See_Comment [Automated 789-8) message] The sy stem which generated this result transmitted reference range : 4.26 - 5.52 10*6/?L. The reference range was not used to interpret this result as normal/abnormal . HGB (test code = 11.5 g/dL 12.2-16.4 L 718-7) HCT (test code = 34.1 % 38.4-49.3 L 4544-3) MCV (test code = 77.3 fL 81.7-95.6 L 787-2) MCH (test code = 26.1 pg 26.1-32.7 785-6) MCHC (test code = 33.7 g/dL 31.2-35.0 786-4) RDW-SD (test code = 55.4 fL 38.5-51.6 H 26293-0) RDW-CV (test code = 20.2 % 12.1-15.4 H 788-0) PLT (test code = 352 See_Comment H [Automated 777-3) message] The sy stem which generated this result transmitted reference range : 150 - 328 10*3/ ?L. The reference r lorena was not used to interpret this result as normal/abnormal . MPV (test code = 10.9 fL 9.8-13.0 82152-1) NRBC/100 WBC (test 0.0 See_Comment [Automat ed code = 3147430579) message] The system which generated this result transmitted reference range : 0.0 - 10.0 /100 WBCs. The refer ence range was not u sed to interpret th is result as normal/abnormal . NRBC x10^3 (test code See_Comment [Auto mated = 6688021563) message] The s ystem which generated this result transmitted reference range : 10*3/?L. The reference range was not used to interpret this result as normal/abnormal . GRAN MAT (NEUT) % 66.2 % (test code = 770-8) IMM GRAN % (test code 0.60 % = 2559032845) LYMPH % (test code = 14.8 % 736-9) MONO % (test code = 15.3 % 5905-5) EOS % (test code = 2.2 % 713-8) BASO % (test code = 0.9 % 706-2) GRAN MAT x10^3(ANC) 5.67 10*3/uL 1.99-6.95 (test code = 1829252484) IMM GRAN x10^3 (test 0.05 10*3/uL 0.00-0.06 code = 6211533324) LYMPH x10^3 (test code 1.27 10*3/uL 1.09-3.23 = 731-0) MONO x10^3 (test code 1.31 10*3/uL 0.36-1.02 H = 742-7) EOS x10^3 (test code = 0.19 10*3/uL 0.06-0.53 711-2) BASO x10^3 (test code 0.08 10*3/uL 0.01-0.09 = 704-7) Lab Interpretation Abnormal (test code = 13445-3) [facility] WITH [id number] 04:32:32 Test Item Value Reference Range Interpretation Comments WBC (test code = 8.57 See_Comment [Automated 0690-2) message] The sy stem which generated this result transmitted reference range : 4.20 - 10.70 10*3/?L. The reference range was not used to interpret this result as normal/abnormal . RBC (test code = 4.41 See_Comment [Automated 231-8) message] The sy stem which generated this result transmitted reference range : 4.26 - 5.52 10*6/?L. The reference range was not used to interpret this result as normal/abnormal . HGB (test code = 11.5 g/dL 12.2-16.4 L 718-7) HCT (test code = 34.1 % 38.4-49.3 L 4544-3) MCV (test code = 77.3 fL 81.7-95.6 L 787-2) MCH (test code = 26.1 pg 26.1-32.7 785-6) MCHC (test code = 33.7 g/dL 31.2-35.0 786-4) RDW-SD (test code = 55.4 fL 38.5-51.6 H 30471-7) RDW-CV (test code = 20.2 % 12.1-15.4 H 788-0) PLT (test code = 352 See_Comment H [Automated 777-3) message] The sy stem which generated this result transmitted reference range : 150 - 328 10*3/ ?L. The reference r lorena was not used to interpret this result as normal/abnormal . MPV (test code = 10.9 fL 9.8-13.0 96280-4) NRBC/100 WBC (test 0.0 See_Comment [Automat ed code = 7853544433) message] The system which generated this result transmitted reference range : 0.0 - 10.0 /100 WBCs. The refer ence range was not u sed to interpret th is result as normal/abnormal . NRBC x10^3 (test code See_Comment [Auto mated = 1478910289) message] The s ystem which generated this result transmitted reference range : 10*3/?L. The reference range was not used to interpret this result as normal/abnormal . GRAN MAT (NEUT) % 66.2 % (test code = 770-8) IMM GRAN % (test code 0.60 % = 5852728311) LYMPH % (test code = 14.8 % 736-9) MONO % (test code = 15.3 % 5905-5) EOS % (test code = 2.2 % 713-8) BASO % (test code = 0.9 % 706-2) GRAN MAT x10^3(ANC) 5.67 10*3/uL 1.99-6.95 (test code = 1359007343) IMM GRAN x10^3 (test 0.05 10*3/uL 0.00-0.06 code = 7113382188) LYMPH x10^3 (test code 1.27 10*3/uL 1.09-3.23 = 731-0) MONO x10^3 (test code 1.31 10*3/uL 0.36-1.02 H = 742-7) EOS x10^3 (test code = 0.19 10*3/uL 0.06-0.53 711-2) BASO x10^3 (test code 0.08 10*3/uL 0.01-0.09 = 704-7) Lab Interpretation Abnormal (test code = 35974-9) [facility] VENOUS BLOOD [id number] 04:30:11 Test Item Value Reference Range Interpretation Comments PH (test code = 7.28 7.32-7.42 L 2851197704) PCO2 CARINA (test code = 53 See_Comment H [Auto mated message] 4593154385) The system [employer] generated this result transmitted ref erence range: 41 - 51 mmHg. The reference r lorena was not used to interpret this result as normal/abnor mal. PO2 CARINA (test code = 54 See_Comment H [Autom ated message] 1301440962) The system [employer] generated this result transmitted ref erence range: 25 - 40 mmHg. The reference r lorena was not used to interpret this result as normal/abnor mal. HCO3 CARINA (test code = 24 See_Comment [Auto mated message] 0847528400) The system [employer] generated this result transmitted ref erence range: 24 - 28 mEq/L. The reference r lorena was not used to interpret this result as normal/abnor mal. AC VBE(BEAKER) (test -3.0 mEq/L code = 1078161480) Lab Interpretation (test Abnormal code = 78577-4) [facility] VENOUS BLOOD [id number] 04:30:11 Test Item Value Reference Range Interpretation Comments PH (test code = 7.28 7.32-7.42 L 1744167410) PCO2 CARINA (test code = 53 See_Comment H [Auto mated message] 6840441931) The system [employer] generated this result transmitted ref erence range: 41 - 51 mmHg. The reference r lorena was not used to interpret this result as normal/abnor mal. PO2 CARINA (test code = 54 See_Comment H [Autom ated message] 6001920866) The system [employer] generated this result transmitted ref erence range: 25 - 40 mmHg. The reference r lorena was not used to interpret this result as normal/abnor mal. HCO3 CARINA (test code = 24 See_Comment [Auto mated message] 8449490980) The system [employer] generated this result transmitted ref erence range: 24 - 28 mEq/L. The reference r lorena was not used to interpret this result as normal/abnor mal. AC VBE(BEAKER) (test -3.0 mEq/L code = 4012077175) Lab Interpretation (test Abnormal code = 21515-9) [facility] VENOUS BLOOD [id number] 04:30:11 Test Item Value Reference Range Interpretation Comments PH (test code = 7.28 7.32-7.42 L 9912833121) PCO2 CARINA (test code = 53 See_Comment H [Auto mated message] 9514847946) The system [employer] generated this result transmitted ref erence range: 41 - 51 mmHg. The reference r lorena was not used to interpret this result as normal/abnor mal. PO2 CARINA (test code = 54 See_Comment H [Autom ated message] 5435509955) The system [employer] generated this result transmitted ref erence range: 25 - 40 mmHg. The reference r lorena was not used to interpret this result as normal/abnor mal. HCO3 CARINA (test code = 24 See_Comment [Auto mated message] 4145927969) The system [employer] generated this result transmitted ref erence range: 24 - 28 mEq/L. The reference r lorena was not used to interpret this result as normal/abnor mal. AC VBE(BEAKER) (test -3.0 mEq/L code = 7401999696) Lab Interpretation (test Abnormal code = 28058-8) [facility] VENOUS BLOOD [id number] 04:30:11 Test Item Value Reference Range Interpretation Comments PH (test code = 7.28 7.32-7.42 L 5943109381) PCO2 CARINA (test code = 53 See_Comment H [Auto mated message] 5214896338) The system [employer] generated this result transmitted ref erence range: 41 - 51 mmHg. The reference r lorena was not used to interpret this result as normal/abnor mal. PO2 CARINA (test code = 54 See_Comment H [Autom ated message] 9899253184) The system [employer] generated this result transmitted ref erence range: 25 - 40 mmHg. The reference r lorena was not used to interpret this result as normal/abnor mal. HCO3 CARINA (test code = 24 See_Comment [Auto mated message] 2312112941) The system [employer] generated this result transmitted ref erence range: 24 - 28 mEq/L. The reference r lorena was not used to interpret this result as normal/abnor mal. AC VBE(BEAKER) (test -3.0 mEq/L code = 2748817766) Lab Interpretation (test Abnormal code = 36053-2) [facility] GLUCOSE (AUTOMATED)2022-05-10 01:44:34 Test Item Value Reference Range Interpretation Comments POCT GLU (test code = 2458624902) 167 mg/dL 70-110 H Lab Interpretation (test code = Abnormal 57529-3) [facility] GLUCOSE (AUTOMATED)2022-05-10 01:44:34 Test Item Value Reference Range Interpretation Comments POCT GLU (test code = 7453579214) 167 mg/dL 70-110 H Lab Interpretation (test code = Abnormal 89107-2) [facility] GLUCOSE (AUTOMATED)2022-05-10 01:44:34 Test Item Value Reference Range Interpretation Comments POCT GLU (test code = 1635649314) 167 mg/dL 70-110 H Lab Interpretation (test code = Abnormal 29443-7) [facility] GLUCOSE (AUTOMATED)2022-05-10 01:44:34 Test Item Value Reference Range Interpretation Comments POCT GLU (test code = 8530559661) 167 mg/dL 70-110 H Lab Interpretation (test code = Abnormal 80475-0) [facility] GLUCOSE (AUTOMATED)2022-05-10 01:21:58 Test Item Value Reference Range Interpretation Comments POCT GLU (test code = 5838321107) 73 mg/dL 70-110 Lab Interpretation (test code = Normal 16152-0) [facility] GLUCOSE (AUTOMATED)2022-05-10 01:21:58 Test Item Value Reference Range Interpretation Comments POCT GLU (test code = 5651254103) 73 mg/dL 70-110 Lab Interpretation (test code = Normal 45904-1) [facility] 01:21:58 Test Item Value Reference Range Interpretation Comments POCT GLU (test code = 1031888969) 73 mg/dL 70-110 Lab Interpretation (test code = Normal 40095-5) [id number] 00:55:49 Test Item Value Reference Range Interpretation Comments K (test code = 6629834897) 7.5 mmol/L 3.5-5.0 HH Lab Interpretation (test code = Abnormal 42133-3) [facility] [id number] 00:55:49 Test Item Value Reference Range Interpretation Comments K (test code = 2861736258) 7.5 mmol/L 3.5-5.0 HH Lab Interpretation (test code = Abnormal 37004-6) [facility] [id number] 00:55:49 Test Item Value Reference Range Interpretation Comments K (test code = 7485043816) 7.5 mmol/L 3.5-5.0 HH Lab Interpretation (test code = Abnormal 27081-5) [facility] [id number] 00:55:49 Test Item Value Reference Range Interpretation Comments K (test code = 7604565776) 7.5 mmol/L 3.5-5.0 HH Lab Interpretation (test code = Abnormal 29671-0) [facility] [id number] 00:09:41 Test Item Value Reference Range Interpretation Comments NT-proBNP (test code = 65720 pg/mL <=125 H 1874111587) TAHIRA (test code = TAHIRA) Biotin has been reported to cause a negative bias, interpret results relative to patient's use of biotin. Lab Interpretation (test Abnormal code = 97292-8) [facility] [id number] 00:09:41 Test Item Value Reference Range Interpretation Comments NT-proBNP (test code = 11209 pg/mL <=125 H 6274785645) TAHIRA (test code = TAHIRA) Biotin has been reported to cause a negative bias, interpret results relative to patient's use of biotin. Lab Interpretation (test Abnormal code = 88542-7) [facility] [id number] 00:09:41 Test Item Value Reference Range Interpretation Comments NT-proBNP (test code = 34785 pg/mL <=125 H 0717689007) TAHIRA (test code = TAHIRA) Biotin has been reported to cause a negative bias, interpret results relative to patient's use of biotin. Lab Interpretation (test Abnormal code = 27179-7) [facility] [id number]:09:41 Test Item Value Reference Range Interpretation Comments NT-proBNP (test code = 49559 pg/mL <=125 H [id number]) TAHIRA (test code = TAHIRA) Biotin has been reported to cause a negative bias, interpret results relative to patient's use of biotin. Lab Interpretation (test Abnormal code = 29000-7) [facility] [id number] 23:49:49 Test Item Value Reference Range Interpretation Comments TROPONIN I (test code = 0.045 ng/mL <=0.034 H [id number]) TAHIRA (test code = TAHIRA) Reference (Normal) Range (defined by the 99th percentile reference limit): <= 0.034 ng/mL Note: Cardiac troponin begins to rise 3-4 hours after the onset of ischemia. Repeat in 4-6 hours if the sample was drawn within 3-4 hours of the onset of the symptom and found normal. Diagnosis of myocardial injury is made with acute changes in cTn concentrations with at least one serial sample above the 99th percentile upper reference limit (URL), taken together with the patient's clinical presentation. Biotin has been reported to cause a negative bias, interpret results relative to patient's use of biotin. Lab Interpretation Abnormal (test code = 44554-5) [facility] [id number] 23:49:49 Test Item Value Reference Range Interpretation Comments TROPONIN I (test code = 0.045 ng/mL <=0.034 H [id number]) TAHIRA (test code = TAHIRA) Reference (Normal) Range (defined by the 99th percentile reference limit): <= 0.034 ng/mL Note: Cardiac troponin begins to rise 3-4 hours after the onset of ischemia. Repeat in 4-6 hours if the sample was drawn within 3-4 hours of the onset of the symptom and found normal. Diagnosis of myocardial injury is made with acute changes in cTn concentrations with at least one serial sample above the 99th percentile upper reference limit (URL), taken together with the patient's clinical presentation. Biotin has been reported to cause a negative bias, interpret results relative to patient's use of biotin. Lab Interpretation Abnormal (test code = 06431-6) [facility] [id number] 23:49:49 Test Item Value Reference Range Interpretation Comments TROPONIN I (test code = 0.045 ng/mL <=0.034 H [id number]) TAHIRA (test code = TAHIRA) Reference (Normal) Range (defined by the 99th percentile reference limit): <= 0.034 ng/mL Note: Cardiac troponin begins to rise 3-4 hours after the onset of ischemia. Repeat in 4-6 hours if the sample was drawn within 3-4 hours of the onset of the symptom and found normal. Diagnosis of myocardial injury is made with acute changes in cTn concentrations with at least one serial sample above the 99th percentile upper reference limit (URL), taken together with the patient's clinical presentation. Biotin has been reported to cause a negative bias, interpret results relative to patient's use of biotin. Lab Interpretation Abnormal (test code = 20170-1) [facility] [id number] 23:49:49 Test Item Value Reference Range Interpretation Comments TROPONIN I (test code = 0.045 ng/mL <=0.034 H [id number]) TAHIRA (test code = TAHIRA) Reference (Normal) Range (defined by the 99th percentile reference limit): <= 0.034 ng/mL Note: Cardiac troponin begins to rise 3-4 hours after the onset of ischemia. Repeat in 4-6 hours if the sample was drawn within 3-4 hours of the onset of the symptom and found normal. Diagnosis of myocardial injury is made with acute changes in cTn concentrations with at least one serial sample above the 99th percentile upper reference limit (URL), taken together with the patient's clinical presentation. Biotin has been reported to cause a negative bias, interpret results relative to patient's use of biotin. Lab Interpretation Abnormal (test code = 99380-1) [facility]. METABOLIC PANEL ([id number])2022-05-09 23:40:31 Test Item Value Reference Range Interpretation Comments NA (test code = 135 mmol/L 135-145 0305719477) K (test code = 6.7 mmol/L 3.5-5.0 HH 9439302914) CL (test code = 98 mmol/L 98-108 9053497806) CO2 TOTAL (test code = 23 mmol/L 23-31 4156743870) AGAP (test code = 14 2-16 0236808361) BUN (test code = 63 mg/dL 7-23 H 0825872260) GLUCOSE (test code = 78 mg/dL 70-110 8305979549) CREATININE (test code = 10.57 mg/dL 0.60-1.25 H 9040357100) TOTAL BILI (test code = 0.7 mg/dL 0.1-1.6 7020679541) CALCIUM (test code = 9.1 mg/dL 8.6-10.6 8429450545) T PROTEIN (test code = 8.0 g/dL 6.3-8.2 2610590512) ALBUMIN (test code = 4.1 g/dL 3.5-5.0 4989312142) ALK PHOS (test code = 87 U/L 34-122 5084869666) ALTv (test code = 16 U/L 5-50 1742-6) AST(SGOT) (test code = 26 U/L 13-40 7562998319) eGFR (test code = 5.3 mL/min/1.73m2 8711033625) TAHIRA (test code = TAHIRA) Association of Glomerular Filtration Rate (GFR) and Staging of Kidney Disease* + --+ --+ ------+| GFR (mL/min/1.73 m2) ?| With Kidney Damage ?| ?Without Kidney Damage+ --------+ --------+ +| ?>90 ?| ?Stage one ?| ? Normal ?+ ---+ ---+ -------+| ?60-89 ?| ?Stage two ?| ? Decreased GFR ? + --+ --+ ------+| ?30-59 ?| ?Stage three ?| ? Stage three ? + --+ --+ ------+| ?15-29 ?| ?Stage four ? | ? Stage four ?+ ---+ ---+ -------+| ?<15 (or dialysis) ? ?| ?Stage five ? | ? Stage five ?+ ---+ ---+ -------+ *Each stage assumes the associated GFR level has been in effect for at least three months. ?Stages 1 to 5, with or without kidney disease, indicate chronic kidney disease. Notes: Determination of stages one and two (with eGFR >59mL/min/1.73 m2) requires estimation of kidney damage for at least three months as defined by structural or functional abnormalities of the kidney, manifested by either:Pathological abnormalities or Markers of kidney damage (including abnormalities in the composition of the blood or urine or abnormalities in imaging tests). Lab Interpretation Abnormal (test code = 77249-6) [facility]. METABOLIC PANEL ([id number])2022-05-09 23:40:31 Test Item Value Reference Range Interpretation Comments NA (test code = 135 mmol/L 135-145 3184700353) K (test code = 6.7 mmol/L 3.5-5.0 HH 7540751552) CL (test code = 98 mmol/L 98-108 4330815653) CO2 TOTAL (test code = 23 mmol/L 23-31 6410088726) AGAP (test code = 14 2-16 4227176815) BUN (test code = 63 mg/dL 7-23 H 1011457242) GLUCOSE (test code = 78 mg/dL 70-110 9355342376) CREATININE (test code = 10.57 mg/dL 0.60-1.25 H 6221483538) TOTAL BILI (test code = 0.7 mg/dL 0.1-1.7 3814636960) CALCIUM (test code = 9.1 mg/dL 8.6-10.6 5969887027) T PROTEIN (test code = 8.0 g/dL 6.3-8.2 9507409909) ALBUMIN (test code = 4.1 g/dL 3.5-5.0 1171126564) ALK PHOS (test code = 87 U/L 34-122 3811038452) ALTv (test code = 16 U/L 5-50 1742-6) AST(SGOT) (test code = 26 U/L 13-40 5888770059) eGFR (test code = 5.3 mL/min/1.73m2 1376606695) TAHIRA (test code = TAHIRA) Association of Glomerular Filtration Rate (GFR) and Staging of Kidney Disease* + --+ --+ ------+| GFR (mL/min/1.73 m2) ?| With Kidney Damage ?| ?Without Kidney Damage+ --------+ --------+ +| ?>90 ?| ?Stage one ?| ? Normal ?+ ---+ ---+ -------+| ?60-89 ?| ?Stage two ?| ? Decreased GFR ? + --+ --+ ------+| ?30-59 ?| ?Stage three ?| ? Stage three ? + --+ --+ ------+| ?15-29 ?| ?Stage four ? | ? Stage four ?+ ---+ ---+ -------+| ?<15 (or dialysis) ? ?| ?Stage five ? | ? Stage five ?+ ---+ ---+ -------+ *Each stage assumes the associated GFR level has been in effect for at least three months. ?Stages 1 to 5, with or without kidney disease, indicate chronic kidney disease. Notes: Determination of stages one and two (with eGFR >59mL/min/1.73 m2) requires estimation of kidney damage for at least three months as defined by structural or functional abnormalities of the kidney, manifested by either:Pathological abnormalities or Markers of kidney damage (including abnormalities in the composition of the blood or urine or abnormalities in imaging tests). Lab Interpretation Abnormal (test code = 82199-8) [facility]. METABOLIC PANEL ([id number])2022-05-09 23:40:31 Test Item Value Reference Range Interpretation Comments NA (test code = 135 mmol/L 135-145 6591201248) K (test code = 6.7 mmol/L 3.5-5.0 HH 6949173324) CL (test code = 98 mmol/L 98-108 5321623078) CO2 TOTAL (test code = 23 mmol/L 23-31 4740702619) AGAP (test code = 14 2-16 3680261183) BUN (test code = 63 mg/dL 7-23 H 5869144500) GLUCOSE (test code = 78 mg/dL 70-110 0569447416) CREATININE (test code = 10.57 mg/dL 0.60-1.25 H 4828898305) TOTAL BILI (test code = 0.7 mg/dL 0.1-1.5 7943556650) CALCIUM (test code = 9.1 mg/dL 8.6-10.6 1302587347) T PROTEIN (test code = 8.0 g/dL 6.3-8.2 1644036349) ALBUMIN (test code = 4.1 g/dL 3.5-5.0 6320773832) ALK PHOS (test code = 87 U/L 34-122 9920749087) ALTv (test code = 16 U/L 5-50 1742-6) AST(SGOT) (test code = 26 U/L 13-40 3817839382) eGFR (test code = 5.3 mL/min/1.73m2 3757305612) TAHIRA (test code = TAHIRA) Association of Glomerular Filtration Rate (GFR) and Staging of Kidney Disease* + --+ --+ ------+| GFR (mL/min/1.73 m2) ?| With Kidney Damage ?| ?Without Kidney Damage+ --------+ --------+ +| ?>90 ?| ?Stage one ?| ? Normal ?+ ---+ ---+ -------+| ?60-89 ?| ?Stage two ?| ? Decreased GFR ? + --+ --+ ------+| ?30-59 ?| ?Stage three ?| ? Stage three ? + --+ --+ ------+| ?15-29 ?| ?Stage four ? | ? Stage four ?+ ---+ ---+ -------+| ?<15 (or dialysis) ? ?| ?Stage five ? | ? Stage five ?+ ---+ ---+ -------+ *Each stage assumes the associated GFR level has been in effect for at least three months. ?Stages 1 to 5, with or without kidney disease, indicate chronic kidney disease. Notes: Determination of stages one and two (with eGFR >59mL/min/1.73 m2) requires estimation of kidney damage for at least three months as defined by structural or functional abnormalities of the kidney, manifested by either:Pathological abnormalities or Markers of kidney damage (including abnormalities in the composition of the blood or urine or abnormalities in imaging tests). Lab Interpretation [facility]normal (test code = 74702-9[facility] Test Item Value Reference Range Interpretation Comments MAGNESIUM (test code = 7747605541) 1.7 mg/dL 1.7-2.4 Lab Interpretation (test code = Normal 14745-5) [facility] Test Item Value Reference Range Interpretation Comments MAGNESIUM (test code = 1974398796) 1.7 mg/dL 1.7-2.4 Lab Interpretation (test code = Normal 11329-1) [facility] Test Item Value Reference Range Interpretation Comments MAGNESIUM (test code = 6103073656) 1.7 mg/dL 1.7-2.4 Lab Interpretation (test code = Normal 74736-6) [facility] WITH [id number] 22:58:09 Test Item Value Reference Range Interpretation Comments WBC (test code = 7.63 See_Comment [Automated 2590-2) message] The sy stem which generated this result transmitted reference range : 4.20 - 10.70 10*3/?L. The reference range was not used to interpret this result as normal/abnormal . RBC (test code = 4.30 See_Comment [Automated 709-8) message] The sy stem which generated this result transmitted reference range : 4.26 - 5.52 10*6/?L. The reference range was not used to interpret this result as normal/abnormal . HGB (test code = 11.5 g/dL 12.2-16.4 L 718-7) HCT (test code = 32.5 % 38.4-49.3 L 4544-3) MCV (test code = 75.6 fL 81.7-95.6 L 787-2) MCH (test code = 26.7 pg 26.1-32.7 785-6) MCHC (test code = 35.4 g/dL 31.2-35.0 H 786-4) RDW-SD (test code = 53.5 fL 38.5-51.6 H 88292-9) RDW-CV (test code = 19.9 % 12.1-15.4 H 788-0) PLT (test code = 350 See_Comment H [Automated 777-3) message] The sy stem which generated this result transmitted reference range : 150 - 328 10*3/ ?L. The reference r lorena was not used to interpret this result as normal/abnormal . MPV (test code = 10.2 fL 9.8-13.0 98010-7) NRBC/100 WBC (test 0.0 See_Comment [Automat ed code = 7466195120) message] The system which generated this result transmitted reference range : 0.0 - 10.0 /100 WBCs. The refer ence range was not u sed to interpret th is result as normal/abnormal . NRBC x10^3 (test code See_Comment [Auto mated = 1432534138) message] The s ystem which generated this result transmitted reference range : 10*3/?L. The reference range was not used to interpret this result as normal/abnormal . GRAN MAT (NEUT) % 74.1 % (test code = 770-8) IMM GRAN % (test code 0.10 % = 1871790571) LYMPH % (test code = 11.8 % 736-9) MONO % (test code = 11.0 % 5905-5) EOS % (test code = 2.1 % 713-8) BASO % (test code = 0.9 % 706-2) GRAN MAT x10^3(ANC) 5.65 10*3/uL 1.99-6.95 (test code = 2639032814) IMM GRAN x10^3 (test 0.00-0.06 code = 2552653900) LYMPH x10^3 (test code 0.90 10*3/uL 1.09-3.23 L = 731-0) MONO x10^3 (test code 0.84 10*3/uL 0.36-1.02 = 742-7) EOS x10^3 (test code = 0.16 10*3/uL 0.06-0.53 711-2) BASO x10^3 (test code 0.07 10*3/uL 0.01-0.09 = 704-7) HJ BODIES (test code = Present A 7793-3) TARGET CELLS (test 2+ See_Comment A [Automat ed code = 87103-2) message] The system which generated this result transmitted reference range : (none). The reference range was not used to interpret this result as normal/abnormal . GIANT PLATELETS (test Present See_Comment A [Auto mated code = 5908-9) message] The system which generated this result transmitted reference range : (none). The reference range was not used to interpret this result as normal/abnormal . Lab Interpretation Abnormal (test code = 74724-7) [facility] WITH [id number] 22:58:09 Test Item Value Reference Range Interpretation Comments WBC (test code = 7.63 See_Comment [Automated 6690-2) message] The sy stem which generated this result transmitted reference range : 4.20 - 10.70 10*3/?L. The reference range was not used to interpret this result as normal/abnormal . RBC (test code = 4.30 See_Comment [Automated 789-8) message] The sy stem which generated this result transmitted reference range : 4.26 - 5.52 10*6/?L. The reference range was not used to interpret this result as normal/abnormal . HGB (test code = 11.5 g/dL 12.2-16.4 L 718-7) HCT (test code = 32.5 % 38.4-49.3 L 4544-3) MCV (test code = 75.6 fL 81.7-95.6 L 787-2) MCH (test code = 26.7 pg 26.1-32.7 785-6) MCHC (test code = 35.4 g/dL 31.2-35.0 H 786-4) RDW-SD (test code = 53.5 fL 38.5-51.6 H 24309-4) RDW-CV (test code = 19.9 % 12.1-15.4 H 788-0) PLT (test code = 350 See_Comment H [Automated 777-3) message] The sy stem which generated this result transmitted reference range : 150 - 328 10*3/ ?L. The reference r lorena was not used to interpret this result as normal/abnormal . MPV (test code = 10.2 fL 9.8-13.0 03110-6) NRBC/100 WBC (test 0.0 See_Comment [Automat ed code = 8004939742) message] The system which generated this result transmitted reference range : 0.0 - 10.0 /100 WBCs. The refer ence range was not u sed to interpret th is result as normal/abnormal . NRBC x10^3 (test code See_Comment [Auto mated = 5686578313) message] The s ystem which generated this result transmitted reference range : 10*3/?L. The reference range was not used to interpret this result as normal/abnormal . GRAN MAT (NEUT) % 74.1 % (test code = 770-8) IMM GRAN % (test code 0.10 % = 3912641492) LYMPH % (test code = 11.8 % 736-9) MONO % (test code = 11.0 % 5905-5) EOS % (test code = 2.1 % 713-8) BASO % (test code = 0.9 % 706-2) GRAN MAT x10^3(ANC) 5.65 10*3/uL 1.99-6.95 (test code = 5899904548) IMM GRAN x10^3 (test 0.00-0.06 code = 6978951366) LYMPH x10^3 (test code 0.90 10*3/uL 1.09-3.23 L = 731-0) MONO x10^3 (test code 0.84 10*3/uL 0.36-1.02 = 742-7) EOS x10^3 (test code = 0.16 10*3/uL 0.06-0.53 711-2) BASO x10^3 (test code 0.07 10*3/uL 0.01-0.09 = 704-7) HJ BODIES (test code = Present A 7793-3) TARGET CELLS (test 2+ See_Comment A [Automat ed code = 59193-7) message] The system which generated this result transmitted reference range : (none). The reference range was not used to interpret this result as normal/abnormal . GIANT PLATELETS (test Present See_Comment A [Auto mated code = 5908-9) message] The system which generated this result transmitted reference range : (none). The reference range was not used to interpret this result as normal/abnormal . Lab Interpretation Abnormal (test code = 35205-7) [facility] WITH [id number] 22:58:09 Test Item Value Reference Range Interpretation Comments WBC (test code = 7.63 See_Comment [Automated 6690-2) message] The sy stem which generated this result transmitted reference range : 4.20 - 10.70 10*3/?L. The reference range was not used to interpret this result as normal/abnormal . RBC (test code = 4.30 See_Comment [Automated 789-8) message] The sy stem which generated this result transmitted reference range : 4.26 - 5.52 10*6/?L. The reference range was not used to interpret this result as normal/abnormal . HGB (test code = 11.5 g/dL 12.2-16.4 L 718-7) HCT (test code = 32.5 % 38.4-49.3 L 4544-3) MCV (test code = 75.6 fL 81.7-95.6 L 787-2) MCH (test code = 26.7 pg 26.1-32.7 785-6) MCHC (test code = 35.4 g/dL 31.2-35.0 H 786-4) RDW-SD (test code = 53.5 fL 38.5-51.6 H 75746-3) RDW-CV (test code = 19.9 % 12.1-15.4 H 788-0) PLT (test code = 350 See_Comment H [Automated 777-3) message] The sy stem which generated this result transmitted reference range : 150 - 328 10*3/ ?L. The reference r lorena was not used to interpret this result as normal/abnormal . MPV (test code = 10.2 fL 9.8-13.0 84393-1) NRBC/100 WBC (test 0.0 See_Comment [Automat ed code = 5547069425) message] The system which generated this result transmitted reference range : 0.0 - 10.0 /100 WBCs. The refer ence range was not u sed to interpret th is result as normal/abnormal . NRBC x10^3 (test code See_Comment [Auto mated = 2061541104) message] The s ystem which generated this result transmitted reference range : 10*3/?L. The reference range was not used to interpret this result as normal/abnormal . GRAN MAT (NEUT) % 74.1 % (test code = 770-8) IMM GRAN % (test code 0.10 % = 2261542262) LYMPH % (test code = 11.8 % 736-9) MONO % (test code = 11.0 % 5905-5) EOS % (test code = 2.1 % 713-8) BASO % (test code = 0.9 % 706-2) GRAN MAT x10^3(ANC) 5.65 10*3/uL 1.99-6.95 (test code = 2577149372) IMM GRAN x10^3 (test 0.00-0.06 code = 4576854212) LYMPH x10^3 (test code 0.90 10*3/uL 1.09-3.23 L = 731-0) MONO x10^3 (test code 0.84 10*3/uL 0.36-1.02 = 742-7) EOS x10^3 (test code = 0.16 10*3/uL 0.06-0.53 711-2) BASO x10^3 (test code 0.07 10*3/uL 0.01-0.09 = 704-7) HJ BODIES (test code = Present A 7793-3) TARGET CELLS (test 2+ See_Comment A [Automat ed code = 55696-6) message] The system which generated this result transmitted reference range : (none). The reference range was not used to interpret this result as normal/abnormal . GIANT PLATELETS (test Present See_Comment A [Auto mated code = 5908-9) message] The system which generated this result transmitted reference range : (none). The reference range was not used to interpret this result as normal/abnormal . Lab Interpretation Abnormal (test code = 44357-4) [facility] [id number] 00:13:00 Test Item Value Reference Range Interpretation Comments AFB culture No growth Specimen isolate (test after 6 weeks InformationSp ecimen code = 543-9) of Source: Tissue Specimen incubation. Site: Arm: [facility] [id number] 00:13:00 Test Item Value Reference Range Interpretation Comments AFB culture No growth Specimen isolate (test after 6 weeks InformationSp ecimen code = 543-9) of Source: Tissue Specimen incubation. Site: Arm: Left arteriovenous f istula [facility] [id number] 00:13:00 Test Item Value Reference Range Interpretation Comments AFB culture No growth Specimen isolate (test after 6 weeks InformationSp ecimen code = 543-9) of Source: Tissue Specimen incubation. Site: Arm: Left arteriovenous f istula [facility] [id number] 00:13:00 Test Item Value Reference Range Interpretation Comments AFB culture No growth Specimen isolate (test after 6 weeks InformationSp ecimen code = 543-9) of Source: Tissue Specimen incubation. Site: Arm: Left arteriovenous f istula [facility] [id number] 00:13:00 Test Item Value Reference Range Interpretation Comments AFB culture No growth Specimen isolate (test after 6 weeks InformationSp ecimen code = 543-9) of Source: Tissue Specimen incubation. Site: Arm: Left arteriovenous f istula [facility] [id number] 00:13:00 Test Item Value Reference Range Interpretation Comments AFB culture No growth Specimen isolate (test after 6 weeks InformationSp ecimen code = 543-9) of Source: Tissue Specimen incubation. Site: Arm: Left arteriovenous f istula [facility] [id number] 00:13:00 Test Item Value Reference Range Interpretation Comments AFB culture No growth Specimen isolate (test after 6 weeks InformationSp ecimen code = 543-9) of Source: Tissue Specimen incubation. Site: Arm: Left arteriovenous f istula [facility] [id number] 00:15:00 Test Item Value Reference Range Interpretation Comments Fungus culture No growth Specimen isolate (test after 4 weeks InformationSp ecimen code = 580-1) of Source: Tissue Specimen incubation. Site: Arm: Left arteriovenous f istula [facility] [id number] 00:15:00 Test Item Value Reference Range Interpretation Comments Fungus culture No growth Specimen isolate (test after 4 weeks InformationSp ecimen code = 580-1) of Source: Tissue Specimen incubation. Site: Arm: Left arteriovenous f istula tissue [facility] cult [facility] [id number] 00:15:00 Test Item Value Reference Range Interpretation Comments Fungus culture No growth Specimen isolate (test after 4 weeks InformationSp ecimen code = 580-1) of Source: Tissue Specimen incubation. Site: Arm: Left arteriovenous f istula tissue [facility] [id number] 00:15:00 Test Item Value Reference Range Interpretation Comments Fungus culture No growth Specimen isolate (test after 4 weeks InformationSp ecimen code = 580-1) of Source: Tissue Specimen incubation. Site: Arm: Left arteriovenous f istula tissue [facility] cult [facility] [id number] 00:15:00 Test Item Value Reference Range Interpretation Comments Fungus culture No growth Specimen isolate (test after 4 weeks InformationSp ecimen code = 580-1) of Source: Tissue Specimen incubation. Site: Arm: Left arteriovenous f istula tissue [facility] cult [facility] [id number] 00:15:00 Test Item Value Reference Range Interpretation Comments Fungus culture No growth Specimen isolate (test after 4 weeks InformationSp ecimen code = 580-1) of Source: Tissue Specimen incubation. Site: Arm: Left arteriovenous f istula tissue [facility] [id number] 00:15:00 Test Item Value Reference Range Interpretation Comments Fungus culture No growth Specimen isolate (test after 4 weeks InformationSp ecimen code = 580-1) of Source: Tissue Specimen incubation. Site: Arm: Left arteriovenous f istula tissue [facility] cult [facility] [id number] 14:37:00 Test Item Value Reference Range Interpretation Comments Anaerobic No anaerobic Specimen culture isolate organisms InformationS pecimen (test code = isolated. Source: TissueS pecimen 64065-7) Site: Arm: Left arteriovenous f istula tissue [facility] [id number] 14:37:00 Test Item Value Reference Range Interpretation Comments Anaerobic No anaerobic Specimen culture isolate organisms InformationS pecimen (test code = isolated. Source: TissueS pecimen 78377-1) Site: Arm: Left arteriovenous f istula tissue for cult ure [facility] [id number] 14:37:00 Test Item Value Reference Range Interpretation Comments Anaerobic No anaerobic Specimen culture isolate organisms InformationS pecimen (test code = isolated. Source: TissueS pecimen 18784-6) Site: Arm: Left arteriovenous f istula tissue for [facility] [id number] 14:37:00 Test Item Value Reference Range Interpretation Comments Anaerobic No anaerobic Specimen culture isolate organisms InformationS pecimen (test code = isolated. Source: TissueS pecimen 97760-5) Site: Arm: Left arteriovenous f istula tissue for cult [facility] [id number] 14:37:00 Test Item Value Reference Range Interpretation Comments Anaerobic No anaerobic Specimen culture isolate organisms InformationS pecimen (test code = isolated. Source: TissueS pecimen 02435-6) Site: Arm: Left arteriovenous f istula tissue for cult [facility] [id number] 14:37:00 Test Item Value Reference Range Interpretation Comments Anaerobic No anaerobic Specimen culture isolate organisms InformationS pecimen (test code = isolated. Source: TissueS pecimen 57616-0) Site: Arm: Left arteriovenous f istula tissue for [facility] [id number] 14:37:00 Test Item Value Reference Range Interpretation Comments Anaerobic No anaerobic Specimen culture isolate organisms InformationS pecimen (test code = isolated. Source: TissueS pecimen 07859-1) Site: Arm: Left arteriovenous f istula tissue for [facility] [id number] 14:37:00 Test Item Value Reference Range Interpretation Comments Anaerobic No anaerobic Specimen culture isolate organisms InformationS pecimen (test code = isolated. Source: TissueS pecimen 74158-1) Site: Arm: Left arteriovenous f istula tissue for [facility] [id number] 03:13:00 Test Item Value Reference Range Interpretation Comments Tissue culture No growth Specimen isolate (test after 3 days. InformationSp ecimen code = 07207-3) Source: Tiss ueSpecimen Site: Arm: Left arteriovenous f istula [facility] [id number] 03:13:00 Test Item Value Reference Range Interpretation Comments Tissue culture No growth Specimen isolate (test after 3 days. InformationSp ecimen code = 90671-6) Source: Tiss ueSpecimen Site: Arm: Left arteriovenous f istula tissue for cult [facility] [id number] 03:13:00 Test Item Value Reference Range Interpretation Comments Tissue culture No growth Specimen isolate (test after 3 days. InformationSp ecimen code = 25169-9) Source: Tiss ueSpecimen Site: Arm: Left arteriovenous f istula tissue for cult [facility] [id number] 03:13:00 Test Item Value Reference Range Interpretation Comments Tissue culture No growth Specimen isolate (test after 3 days. InformationSp ecimen code = 57485-8) Source: [facility] ueSpecimen Site: Arm: Left arteriovenous f istula tissue [facility] [id number] 03:13:00 Test Item Value Reference Range Interpretation Comments Tissue culture No growth Specimen isolate (test after 3 days. InformationSp ecimen code = 87072-9) Source: [facility] ueSpecimen Site: Arm: Left arteriovenous f istula tissue for cult [facility] [id number] 03:13:00 Test Item Value Reference Range Interpretation Comments Tissue culture No growth Specimen isolate (test after 3 days. InformationSp ecimen code = 98490-5) Source: [facility] ueSpecimen Site: Arm: Left arteriovenous f istula tissue for cult [facility] [id number] 03:13:00 Test Item Value Reference Range Interpretation Comments Tissue culture No growth Specimen isolate (test after 3 days. InformationSp ecimen code = 67027-3) Source: [facility] ueSpecimen Site: Arm: Left arteriovenous f istula tissue for cult [facility] [id number] 03:13:00 Test Item Value Reference Range Interpretation Comments Tissue culture No growth Specimen isolate (test after 3 days. InformationSp ecimen code = 40299-0) Source: Tiss ueSpecimen Site: Arm: Left arteriovenous f istula tissue for cult [facility], (w Contrast, Strain and 3D if needed)2021-12-18 19:53:26 Test Item Value Reference Interpretation Comments Range Ao Root Diameter 3.28 cm (test code = 9869641865) AoV Area, Vmax (test 3.67 cm2 >=1.5 code = 4834850518) AoV Area, VTI (test 3.72 cm2 code = 2016013773) AoV Mean PG (test 3.84 mmHg code = 9109586294) AoV Peak PG (test 7.04 mmHg code = 0104691625) AoV Vmax (test code 1.37 m/s = 2488251771) AoV VTI (test code = 0.24 m 2465339024) IVS,d (test code = 1.79 cm 0.6-1 A 7345422053) IVS/LVPW,2D (test 1.28 code = 2944792205) Left Atrium 3.69 cm Dimension Anterior (test code = 8771663806) LV,d (test code = 4.62 cm 6763950259) LV EF,2D (test code 66.15 % = 1776824898) LV,s (test code = 3.22 cm 5801672066) LVOT area (test code 3.90 cm2 = 5267118289) LVOT Diam,S (test 2.23 cm code = 8112275310) LVOT Vmax (test code 1.27 m/s = 6825805790) LVOT VTI (test code 0.27 m = 7012618092) LVPWD,d (test code = 1.41 cm 0.60-1.19 A 1189408641) PV Pk Grad (test 5.97 mmHg code = 5292225914) PV VMAX (test code = 1.22 m/s 6835058623) RVOT Vmax (test code 1.17 m/s = 0484191858) MV E A ratio (test 0.80 code = 0331965565) E wave decelartion 154.26 See_Comment A [Automat ed time (test code = message] T he 4070058505) system which generated this result transmitted reference range : 200 msec. The reference range was not used to interpret this result as normal/abnormal . MV Peak A Tiago (test 1.01 m/s code = 3423765192) MV valve area p 1/2 4.92 cm2 method (test code = 0432899241) MV Peak E Tiago (test 0.81 m/s code = 0917515372) MV stenosis pressure 44.73 ms 1/2 time (test code = 4474188365) LVOT stroke volume 1.05 ml (test code = 8709313917) AV LVOT peak 6.26 mmHg gradient (test code = 2603605395) Ascending aorta 3.89 cm (test code = 1862961028) Ao Root Diameter 3.28 cm (test code = 2196013953) LV SYS VOL (test 41.61 ml 21-61 code = 9168233773) LV BRICEÑO VOL (test 98.42 ml 62-150 code = 3052837381) LA area s A4C (test 22.85 cm2 code = 0243182881) LV SV Teich 2D (test 56.81 ml code = 7316563952) LV Vol s Teich PSAX 41.61 ml (test code = 6837274450) RVOT pk grad (test 5.44 mmHg code = 2998679183) AoV Vmn (test code = 0.93 m/s 5652430047) LV FS Teich 2D (test 30.31 code = 9928577090) MV AE ratio (test 1.25 code = 2686417164) LV FS Cube 2D (test 30.31 code = 5139897603) LVOT Vmn (test code 0.82 = 1759436695) Aov area Vmn (test 3.64 cm2 code = 1600646850) LVOT mean grad (test 3.02 mmHg code = 5590301354) MAX Pred HR (test 173.13 code = 4137578249) 85 of MPHR (test 147.16 code = 2322334012) Calc MPHR (test code 173.13 bpm = 3199473503) LV SV Cube 2D (test 65.31 ml code = 4839189186) LV vol d cube 2D 98.73 ml (test code = 7843122793) LV vol s cube 2D 33.42 ml (test code = 5765184296) MV Decel slope (test 5.22 m/s2 code = 1584682193) Pred Exer Dur R1 10.72 (test code = 7927115262) Pred METS R1 (test 10.97 code = 5137178733) LA Vol MOD A4C (test 54.72 ml code = 3424402417) E tanesha sept (test 0.04 code = 7485130193) E prime lat (test 0.11 code = 3837184779) Velocity Ratio 0.93 m/s (V1/V2) (test code = 4689) EF (test code = 58 % 8968815926) E/A ratio (test code 0.80 = 8783253126) LVOT VTI (CM) (test 27.00 cm code = 2055035612) TAHIRA (test code = Normal left TAHIRA) [...] obtained. Lab Interpretation Abnormal (test code = 07356-7) [facility], (w Contrast, Strain and 3D if needed)2021-12-18 19:53:26 Test Item Value Reference Interpretation Comments Range Ao Root Diameter 3.28 cm (test code = 8878955690) AoV Area, Vmax (test 3.67 cm2 >=1.5 [Autom ated code = 8664820052) message] The system which generated this result transmitted reference range : >=1.5. The reference range was not used to interpret this result as normal/abnormal . AoV Area, VTI (test 3.72 cm2 code = 7931619630) AoV Mean PG (test 3.84 mmHg code = 3483837035) AoV Peak PG (test 7.04 mmHg code = 3314447236) AoV Vmax (test code 1.37 m/s = 6809384807) AoV VTI (test code = 0.24 m 4062698351) IVS,d (test code = 1.79 cm 0.6-1 A 8126817710) IVS/LVPW,2D (test 1.28 code = 5896861736) Left Atrium 3.69 cm Dimension Anterior (test code = 1330334259) LV,d (test code = 4.62 cm 1628755826) LV EF,2D (test code 66.15 % = 9855479876) LV,s (test code = 3.22 cm 7552228163) LVOT area (test code 3.90 cm2 = 9015551912) LVOT Diam,S (test 2.23 cm code = 9146536504) LVOT Vmax (test code 1.27 m/s = 9920759654) LVOT VTI (test code 0.27 m = 5010057070) LVPWD,d (test code = 1.41 cm 0.60-1.19 A 3297954186) PV Pk Grad (test 5.97 mmHg code = 3010830703) PV VMAX (test code = 1.22 m/s 8862128877) RVOT Vmax (test code 1.17 m/s = 7535617826) MV E A ratio (test 0.80 code = 3656146012) E wave decelartion 154.26 See_Comment A [Automat ed time (test code = message] T he 6256660619) system which generated this result transmitted reference range : 200 msec. The reference range was not used to interpret this result as normal/abnormal . MV Peak A Tiago (test 1.01 m/s code = 0685383773) MV valve area p 1/2 4.92 cm2 method (test code = 1157750324) MV Peak E Tiago (test 0.81 m/s code = 1605326858) MV stenosis pressure 44.73 ms 1/2 time (test code = 6545792230) LVOT stroke volume 1.05 ml (test code = 4444098151) AV LVOT peak 6.26 mmHg gradient (test code = 1692092521) Ascending aorta 3.89 cm (test code = 7475828081) Ao Root Diameter 3.28 cm (test code = 5666298092) LV SYS VOL (test 41.61 ml 21-61 code = 7057734258) LV BRICEÑO VOL (test 98.42 ml 62-150 code = 0415940615) LA area s A4C (test 22.85 cm2 code = 8977277962) LV SV Teich 2D (test 56.81 ml code = 6639398639) LV Vol s Teich PSAX 41.61 ml (test code = 8529738271) RVOT pk grad (test 5.44 mmHg code = 3197659506) AoV Vmn (test code = 0.93 m/s 2548789260) LV FS Teich 2D (test 30.31 code = 3794402252) MV AE ratio (test 1.25 code = 3892290656) LV FS Cube 2D (test 30.31 code = 0794271392) LVOT Vmn (test code 0.82 = 1089438714) Aov area Vmn (test 3.64 cm2 code = 5707328152) LVOT mean grad (test 3.02 mmHg code = 3279252436) MAX Pred HR (test 173.13 code = 6560683780) 85 of MPHR (test 147.16 code = 7500236878) Calc MPHR (test code 173.13 bpm = 8565660462) LV SV Cube 2D (test 65.31 ml code = 0096402446) LV vol d cube 2D 98.73 ml (test code = 9331338222) LV vol s cube 2D 33.42 ml (test code = 2409047925) MV Decel slope (test 5.22 m/s2 code = 9826353339) Pred Exer Dur R1 10.72 (test code = 0647603654) Pred METS R1 (test 10.97 code = 7638268658) LA Vol MOD A4C (test 54.72 ml code = 1615922745) E tanesha sept (test 0.04 code = 8408920436) E prime lat (test 0.11 code = 5168996161) Velocity Ratio 0.93 m/s (V1/V2) (test code = 4689) EF (test code = 58 % 9040944933) E/A ratio (test code 0.80 = 9032088404) LVOT VTI (CM) (test 27.00 cm code = 2765178004) TAHIRA (test code = Normal left TAHIRA) [...] obtained. Lab Interpretation Abnormal (test code = 26207-0) [facility] [id number] 02:14:00 Test Item Value Reference Range Interpretation Comments Aerobic culture No growth Specimen isolate (test after 2 days. InformationSp ecimen code = 67037-5) Source: Robyn Donahue Site: Arm: Left arteriovenous f istula wound [facility] [id number] 02:14:00 Test Item Value Reference Range Interpretation Comments Aerobic culture No growth Specimen isolate (test after 2 days. InformationSp ecimen code = 39489-1) Source: Robyn Donahue Site: Arm: Left arteriovenous f istula wound [facility] [id number] 02:14:00 Test Item Value Reference Range Interpretation Comments Aerobic culture No growth Specimen isolate (test after 2 days. InformationSp ecimen code = 09622-3) Source: Robyn Donahue Site: Arm: Left arteriovenous f istula wound [facility] [id number] 02:14:00 Test Item Value Reference Range Interpretation Comments Aerobic culture No growth Specimen isolate (test after 2 days. InformationSp ecimen code = 28362-0) Source: Robyn Donahue Site: Arm: Left arteriovenous f istula wound [facility] [id number] 02:14:00 Test Item Value Reference Range Interpretation Comments Aerobic culture No growth Specimen isolate (test after 2 days. InformationSp ecimen code = 11854-7) Source: Robyn Donahue Site: Arm: Left arteriovenous f istula wound [facility] [id number] 02:14:00 Test Item Value Reference Range Interpretation Comments Aerobic culture No growth Specimen isolate (test after 2 days. InformationSp ecimen code = 90563-8) Source: Robyn Donahue Site: Arm: Left arteriovenous f istula wound [facility] uvxxizj0631-29-05 02:14:00 Test Item Value Reference Range Interpretation Comments Aerobic culture No growth Specimen isolate (test after 2 days. InformationSp ecimen code = 45444-2) Source: Robyn Donahue Site: Arm: Left arteriovenous f istula wound [facility] [id number] 02:14:00 Test Item Value Reference Range Interpretation Comments Aerobic culture No growth Specimen isolate (test after 2 days. InformationSp ecimen code = 34375-3) Source: Robyn Starkeynavatirso Site: Arm: Left arteriovenous f istula [place] [facility]22-[place] 22:04:00 Test Item Value Reference Range Interpretation Comments POC glucose (test code = 117 mg/dL 65-99 H Ope rator Name: 10049-6) René Terry ce ID: [id number] able: RN Notified Lab Interpretation (test Abnormal code = 31445-4) [facility]22-[place]-18 22:04:00 Test Item Value Reference Range Interpretation Comments POC glucose (test code = 117 mg/dL 65-99 H Ope rator Name: 48582-0) René Terry ce ID: [id number] able: RN Notified Lab Interpretation (test Abnormal code = 98146-9) [facility]2022-09-18 22:04:00 Test Item Value Reference Range Interpretation Comments POC glucose (test code = 117 mg/dL 65-99 H Ope rator Name: 80324-6) René Terry ce ID: [id number] able: RN Notified Lab Interpretation (test Abnormal code = 96408-9) [facility]2022-09-18 22:04:00 Test Item Value Reference Range Interpretation Comments POC glucose (test code = 117 mg/dL 65-99 H Ope rator Name: 98195-5) René Terry ce ID: [id number] able: RN Notified Lab Interpretation (test Abnormal code = 92780-7) [facility]2022-09-18 22:04:00 Test Item Value Reference Range Interpretation Comments POC glucose (test code = 117 mg/dL 65-99 H Ope rator Name: 05853-8) René Terry ce ID: [id number] able: RN Notified Lab Interpretation (test Abnormal code = 02388-2) [facility]2022-09-18 22:04:00 Test Item Value Reference Range Interpretation Comments POC glucose (test code = 117 mg/dL 65-99 H Ope rator Name: 85740-7) René Terry ce ID: [id number] able: RN Notified Lab Interpretation (test Abnormal code = 26338-7) [facility]2022-09-18 22:04:00 Test Item Value Reference Range Interpretation Comments POC glucose (test code = 117 mg/dL 65-99 H Ope rator Name: 79994-2) René Terry ce ID: [id number] able: RN Notified Lab Interpretation (test Abnormal code = 07789-7) [facility]2022-09-18 22:04:00 Test Item Value Reference Range Interpretation Comments POC glucose (test code = 117 mg/dL 65-99 H Ope rator Name: 79406-5) René Terry ce ID: [id number] able: RN Notified Lab Interpretation (test Abnormal code = 33602-7) [facility]2022-09-18 20:27:00 Test Item Value Reference Range Interpretation Comments Fungus smear No fungi Specimen (test code = observed. InformationSpec imen Source: 1443) TissueSpecimen Site: Arm: Left arterioven ous fistula tissue for cult [facility] [id number] 20:27:00 Test Item Value Reference Range Interpretation Comments Fungus smear No fungi Specimen (test code = observed. InformationSpec imen Source: 1443) TissueSpecimen Site: Arm: Left arterioven ous fistula tissue for cult [facility] [id number] 20:27:00 Test Item Value Reference Range Interpretation Comments Fungus smear No fungi Specimen (test code = observed. InformationSpec imen Source: 1443) TissueSpecimen Site: Arm: Left arterioven ous fistula tissue for cult [facility] [id number] 20:27:00 Test Item Value Reference Range Interpretation Comments Fungus smear No fungi Specimen (test code = observed. InformationSpec imen Source: 1443) TissueSpecimen Site: Arm: Left arterioven ous fistula tissue for cult [facility] [id number] 20:27:00 Test Item Value Reference Range Interpretation Comments Fungus smear No fungi Specimen (test code = observed. InformationSpec imen Source: 1443) TissueSpecimen Site: Arm: Left arterioven ous fistula tissue for cult [facility] [id number] 20:27:00 Test Item Value Reference Range Interpretation Comments Fungus smear No fungi Specimen (test code = observed. InformationSpec imen Source: 1443) TissueSpecimen Site: Arm: Left arterioven ous fistula tissue for cult [facility] [id number] 20:27:00 Test Item Value Reference Range Interpretation Comments Fungus smear No fungi Specimen (test code = observed. InformationSpec imen Source: 1443) TissueSpecimen Site: Arm: Left arterioven ous fistula tissue for cult [facility] [id number] 20:27:00 Test Item Value Reference Range Interpretation Comments Fungus smear No fungi Specimen (test code = observed. InformationSpec imen Source: 1443) TissueSpecimen Site: Arm: Left arterioven ous fistula tissue for cult [facility] [id number] 17:50:00 Test Item Value Reference Range Interpretation Comments AFB stain No acid fast Specimen (test code = bacilli (AFB) InformationSpe cimen 676-7) seen. Source: [facility] Site: Arm: Left arteriovenous f istula tissue for cult [facility] [id number] 17:50:00 Test Item Value Reference Range Interpretation Comments AFB stain No acid fast Specimen (test code = bacilli (AFB) InformationSpe cimen 676-7) seen. Source: [facility] Site: Arm: Left arteriovenous f istula tissue for cult [facility] [id number] 17:50:00 Test Item Value Reference Range Interpretation Comments AFB stain No acid fast Specimen (test code = bacilli (AFB) InformationSpe cimen 676-7) seen. Source: [facility] Site: Arm: Left arteriovenous f istula tissue for cult [facility] [id number] 17:50:00 Test Item Value Reference Range Interpretation Comments AFB stain No acid fast Specimen (test code = bacilli (AFB) InformationSpe cimen 676-7) seen. Source: [facility] Site: Arm: Left arteriovenous f istula tissue for cult [facility] [id number] 17:50:00 Test Item Value Reference Range Interpretation Comments AFB stain No acid fast Specimen (test code = bacilli (AFB) InformationSpe cimen 676-7) seen. Source: [facility] Site: Arm: Left arteriovenous f istula tissue for cult [facility] [id number] 17:50:00 Test Item Value Reference Range Interpretation Comments AFB stain No acid fast Specimen (test code = bacilli (AFB) InformationSpe cimen 676-7) seen. Source: [facility] Site: Arm: Left arteriovenous f istula tissue for cult [facility] [id number] 17:50:00 Test Item Value Reference Range Interpretation Comments AFB stain No acid fast Specimen (test code = bacilli (AFB) InformationSpe cimen 676-7) seen. Source: [facility] Site: Arm: Left arteriovenous f istula tissue for cult [facility] [id number] 17:50:00 Test Item Value Reference Range Interpretation Comments AFB stain No acid fast Specimen (test code = bacilli (AFB) Spchristiano rizzo 676-7) seen. Source: TissueS pecimen Site: Arm: Left arteriovenous f istula tissue for cult ure [facility] [id number] 02:53:00 Test Item Value Reference Range Interpretation Comments Gram stain No WBC's or Specimen isolate (test organisms seen. Information Specimen code = 1469) Source: [place] eSpecimen Site: Arm: Left arteriovenous f istula wound [facility] [id number] 02:53:00 Test Item Value Reference Range Interpretation Comments Gram stain No WBC's or Specimen isolate (test organisms seen. Information Specimen code = 1469) Source: [place] eSpecimen Site: Arm: Left arteriovenous f istula wound [facility]2022-09-18 02:53:00 Test Item Value Reference Range Interpretation Comments Gram stain No WBC's or Specimen isolate (test organisms seen. Information Specimen code = 1469) Source: [place] eSpecimen Site: Arm: Left arteriovenous f istula wound [facility] [id number] 02:53:00 Test Item Value Reference Range Interpretation Comments Gram stain No WBC's or Specimen isolate (test organisms seen. Information Specimen code = 1469) Source: [place] eSpecimen Site: Arm: Left arteriovenous f istula wound [facility]2022-09-18 02:53:00 Test Item Value Reference Range Interpretation Comments Gram stain No WBC's or Specimen isolate (test organisms seen. Information Specimen code = 1469) Source: [place] eSpecimen Site: Arm: Left arteriovenous f istula wound [facility] [id number] 02:53:00 Test Item Value Reference Range Interpretation Comments Gram stain No WBC's or Specimen isolate (test organisms seen. Information Specimen code = 1469) Source: [place] eSpecimen Site: Arm: Left arteriovenous f istula wound [facility] [id number] 02:53:00 Test Item Value Reference Range Interpretation Comments Gram stain No WBC's or Specimen isolate (test organisms seen. Information Specimen code = 1469) Source: [place] eSpecimen Site: Arm: Left arteriovenous f istula wound [facility] [id number] 02:53:00 Test Item Value Reference Range Interpretation Comments Gram stain No WBC's or Specimen isolate (test organisms seen. Information Specimen code = 1469) Source: [place] eSpecimen Site: Arm: Left arteriovenous f istula wound [facility] RBC, 1 [id number] 00:49:00 Test Item Value Reference Range Interpretation Comments Product name (test Red Blood Cells code = 25) -1, Leukored Unit number (test [id number] code = 2725615) Product code (test F1459I70 code = 3092) Dispense status Transfused (test [...] 09:50 PER TAHIRA) /OR BLOOD REQUEST. [facility], 1 [id number] 00:49:00 Test Item Value Reference Range Interpretation Comments Product name (test Red Blood Cells code = 25) -1, Leukored Unit number (test [id number] code = 6084223) Product code (test V9020Z95 code = 3092) Dispense status (test Transfused code = 24) Blood expiration date (test code = ) Blood type code (test code = 308) Blood type (test code A POSITIVE Return ed from = 1314) OR in cooler, Temp:4.0 C, Hemotemp and Visual Checksacceptabl e. 12/15/21 15:06 Kassi Myalil Compatibility (test Compatible code = 6400) TAHIRA (test code = TAHIRA) 12/15/21 09:50 PER /OR BLOOD REQUEST. [facility], 1 [id number] 00:49:00 Test Item Value Reference Range Interpretation Comments Product name (test Red Blood Cells code = 25) -1, Leukored Unit number (test [id number] code = 9595497) Product code (test Z5778B99 code = 3092) Dispense status (test Transfused [...] 12/15/21 09:50 PER /OR BLOOD REQUEST. [facility], 1 [id number] 00:49:00 Test Item Value Reference Range Interpretation Comments Product name (test Red Blood Cells code = 25) -1, Leukored Unit number (test [id number] code = 3207612) Product code (test A4078C23 code = 3092) Dispense status Transfused (test code = 24) Blood expiration date (test code = ) Blood type code 6200 (test code = 308) Blood type (test A POSITIVE Returned fr om code = 1314) OR in cooler, Temp:4.0 C, [employer] and Visual Checksacceptabl e. 12/15/21 15:06 Kassi Myalil Compatibility (test Compatible code = 6400) TAHIRA (test code = 12/15/21 09:50 PER TAHIRA) /OR BLOOD REQUEST. [facility], 1 [id number] 00:49:00 Test Item Value Reference Range Interpretation Comments Product name (test Red Blood Cells code = 25) -1, Leukored Unit number (test [id number] code = 3900445) Product code (test [id number] code = 3092) Dispense status Transfused (test [...] 09:50 PER TAHIRA) /OR BLOOD REQUEST. Kassi [facility]alil [facility], 1 [id number] 00:49:00 Test Item Value Reference Range Interpretation Comments Product name (test Red Blood Cells code = 25) -1, Leukored Unit number (test [id number] code = 4665433) Product code (test V0533B61 code = 3092) Dispense status Transfused (test [...] 09:50 PER TAHIRA) /OR BLOOD REQUEST. Kassi [facility]alil [facility] RBC, 1 [id number] 00:49:00 Test Item Value Reference Range Interpretation Comments Product name (test Red Blood Cells code = 25) -1, Leukored Unit number (test [id number] code = 9781819) Product code (test V4702Q76 code = 3092) Dispense status Transfused (test [...] 09:50 PER TAHIRA) /OR BLOOD REQUEST. Kassi [facility]alil [facility], 1 [id number] 00:49:00 Test Item Value Reference Range Interpretation Comments Product name (test Red Blood Cells code = 25) -1, Leukored Unit number (test [id number] code = 8225950) Product code (test I2971T32 code = 3092) Dispense status Transfused (test code = 24) Blood expiration date (test code = 302) Blood type code 6200 (test code = 308) Blood type (test A POSITIVE Returned fr om code = 1314) OR in cooler, Temp:4.0 C, [employer] and Visual Checksacceptabl e. 12/15/21 15:06 Kassi Red Compatibility (test Compatible code = 6400) TAHIRA (test code = 12/15/21 09:50 PER TAHIRA) /OR BLOOD REQUEST. [facility]i [facility] CenterArterial blood gas, [id number] 19:45:00 Test Item Value Reference Range Interpretation Comments pH, arterial (test code 7.38 7.35-7.45 = 2744-1) pCO2, arterial (test 39 See_Comment [Autom ated message] code = 2019-8) The system [employer] ich generated this result transmitted ref erence range: 35 - 45 mmHg. The reference r lorena was not used to interpret this result as normal/abnor mal. pO2, arterial (test code 405 See_Comment H [A utomated message] = 2703-7) The system [employer] generated this result transmitted ref erence range: 80 - 90 mmHg. The reference r lorena was not used to interpret this result as normal/abnor mal. Temperature, Celsius 36.0 Degrees C (test code = 8310-5) O2 saturation, arterial 100 % 95-100 (test code = 2708-6) pH, arterial corrected 7.40 (test code = 95570-1) pCO2, arterial corrected 37 mmHg (test code = 79912-8) pO2, arterial corrected 400 mmHg (test code = 37841-8) Base excess, arterial -2 See_Comment [Auto mated message] (test code = 1925-7) The [facility] tem which generated this result transmitted ref erence range: -2 - 2 m Eq/L. The reference r lorena was not used to interpret this result as normal/abnor mal. Lab Interpretation (test Abnormal code = 66718-5) [facility] CenterGl[facility] level, [id number] 19:45:00 Test Item Value Reference Range Interpretation Comments Glucose, syringe (test code = 125 mg/dL 65-99 H 2345-7) Lab Interpretation (test code = Abnormal 49373-3) [facility] CenterHemoglobin, [id number] 19:45:00 Test Item Value Reference Range Interpretation Comments Hemoglobin, syringe (test 7.0 g/dL 14.0-18.0 LL Fi nal results code = 718-7) called to and read back by Autumn Perez RN. 12/15/2021 14:4 5 HE Lab Interpretation (test Abnormal code = 79316-5) [facility] CenterIonized calcium, [id number] 19:45:00 Test Item Value Reference Range Interpretation Comments Ionized calcium, arterial (test 1.10 mmol/L 1.11-1.32 L code = 15475-5) Lab Interpretation (test code = Abnormal 10023-8) [facility] CenterPotassium, [id number] 19:45:00 Test Item Value Reference Range Interpretation Comments Potassium, syringe 4.8 See_Comment [Automat ed message] The (test code = 2007) system [facility] generated this result tra nsmitted reference range : 3.5 - 5.0 mEq/L. The refe rence range was not used to interpret this result as normal/abnormal . [facility], [id number] 19:45:00 Test Item Value Reference Range Interpretation Comments Sodium, syringe (test 135 See_Comment [Auto mated message] The code = 2947-0) system which generated this result tra nsmitted reference range : 125 - 148 mEq/L. The refe rence range was not used to interpret this result as normal/abnormal . [facility] CenterArterial blood gas, [id number] 19:45:00 Test Item Value Reference Range Interpretation Comments pH, arterial (test code 7.35-7.45 = 2744-1) pCO2, arterial (test See_Comment [Autom ated message] code = 2019-8) The system [facility] generated this result transmitted ref erence range: 35 - 45 mmHg. The reference r lorena was not used to interpret this result as normal/abnor mal. pO2, arterial (test code See_Comment H [A utomated message] = 2703-7) The system [facility] h generated this result transmitted ref erence range: 80 - 90 mmHg. The reference r lorena was not used to interpret this result as normal/abnor mal. Temperature, Celsius Degrees C (test code = 8310-5) O2 saturation, arterial 100 % 95-100 (test code = 2708-6) pH, arterial corrected (test code = 56593-9) pCO2, arterial corrected mmHg (test code = 12281-2) pO2, arterial corrected mmHg (test code = 35012-8) Base excess, arterial See_Comment [Auto mated message] (test code = 1925-7) The s tem which generated this result transmitted ref erence range: -2 - 2 m Eq/L. The reference r lorena was not used to interpret this result as normal/abnor mal. Lab Interpretation (test Abnormal code = 79865-3) [facility] CenterGlucose level, [id number] 19:45:00 Test Item Value Reference Range Interpretation Comments Glucose, syringe (test code = 125 mg/dL 65-99 H 2345-7) Lab Interpretation (test code = Abnormal 31315-0) [facility] CenterHemoglobin, [id number] 19:45:00 Test Item Value Reference Range Interpretation Comments Hemoglobin, syringe (test 7.0 g/dL 14-18 LL Fi nal results code = 718-7) called to and read back by Autumn Perez RN. 12/15/2021 14:4 5 HE Lab Interpretation (test Abnormal code = 41195-8) [facility] CenterIonized calcium, [id number] 19:45:00 Test Item Value Reference Range Interpretation Comments Ionized calcium, arterial (test 1.10 mmol/L 1.11-1.32 L code = 44121-9) Lab Interpretation (test code = Abnormal 72594-4) [facility] CenterPotassium, [id number] 19:45:00 Test Item Value Reference Range Interpretation Comments Potassium, syringe See_Comment [Automat ed message] The (test code = 2007) system [facility] generated this result tra nsmitted reference range : 3.5 - 5.0 mEq/L. The refe rence range was not used to interpret this result as normal/abnormal . [facility], [id number] 19:45:00 Test Item Value Reference Range Interpretation Comments Sodium, syringe (test See_Comment [Auto mated message] The code = 2947-0) system which generated this result tra nsmitted reference range : 125 - 148 mEq/L. The refe rence range was not used to interpret this result as normal/abnormal . [facility] CenterArterial blood gas, [id number] 19:45:00 Test Item Value Reference Range Interpretation Comments pH, arterial (test code 7.35-7.45 = 2744-1) pCO2, arterial (test See_Comment [Autom ated message] code = 2019-8) The system ich generated this result transmitted ref erence [...] 2708-6) pH, arterial corrected (test code = 46620-9) pCO2, arterial corrected mmHg (test code = 48313-4) pO2, arterial corrected mmHg (test code = 20335-5) Base excess, arterial See_Comment [Auto mated message] (test code = 1925-7) The sys tem which generated this result transmitted ref erence range: -2 - 2 m Eq/L. The reference r lorena was not used to interpret this result as normal/abnor mal. Lab Interpretation (test Abnormal code = 99106-6) [facility] CenterGlucose level, [id number] 19:45:00 Test Item Value Reference Range Interpretation Comments Glucose, syringe (test code = 125 mg/dL 65-99 H 2345-7) Lab Interpretation (test code = Abnormal 03628-7) [facility] CenterHemoglobin, [id number] 19:45:00 Test Item Value Reference Range Interpretation Comments Hemoglobin, syringe (test 7.0 g/dL 14.0-18.0 LL Fi nal results code = 718-7) called to and read back by Autumn Perez RN. 12/15/2021 14:4 5 HE Lab Interpretation (test Abnormal code = 73939-2) [facility] CenterIonized calcium, [id number] 19:45:00 Test Item Value Reference Range Interpretation Comments Ionized calcium, arterial (test 1.10 mmol/L 1.11-1.32 L code = 45949-0) Lab Interpretation (test code = Abnormal 85044-0) [facility] CenterPotassium, [id number] 19:45:00 Test Item Value Reference Range Interpretation Comments Potassium, syringe See_Comment [Automat ed message] The (test code = 2007) system ich generated this result tra nsmitted reference range : 3.5 - 5.0 mEq/L. The refe rence range was not used to interpret this result as normal/abnormal . [facility] Centerodium level, [id number] 19:45:00 Test Item Value Reference Range Interpretation Comments Sodium, syringe (test See_Comment [Auto mated message] The code = 2947-0) system which generated this result tra nsmitted reference range : 125 - 148 mEq/L. The refe rence range was not used to interpret this result as normal/abnormal . [facility] CenterArterial blood gas, [id number] 19:45:00 Test Item Value Reference Range Interpretation Comments pH, arterial (test code 7.38 7.35-7.45 = 2744-1) pCO2, arterial (test 39 See_Comment [Autom ated message] code = 2019-8) The system [facility] generated this result transmitted ref erence range: 35 - 45 mmHg. The reference r lorena was not used to interpret this result as normal/abnor mal. pO2, arterial (test code 405 See_Comment H [A utomated message] = 2703-7) The system [facility] h generated this result transmitted ref erence range: 80 - 90 mmHg. The reference r lorena was not used to interpret this result as normal/abnor mal. Temperature, Celsius 36.0 Degrees C (test code = 8310-5) O2 saturation, arterial 100 % 95-100 (test code = 2708-6) pH, arterial corrected 7.40 (test code = 77311-3) pCO2, arterial corrected 37 mmHg (test code = 00587-2) pO2, arterial corrected 400 mmHg (test code = 69078-9) Base excess, arterial -2 See_Comment [Auto mated message] (test code = 1925-7) The sys tem which generated this result transmitted ref erence range: -2 - 2 m Eq/L. The reference r lorena was not used to interpret this result as normal/abnor mal. Lab Interpretation (test Abnormal code = 22397-2) [facility] CenterGlucose level, [id number] 19:45:00 Test Item Value Reference Range Interpretation Comments Glucose, syringe (test code = 125 mg/dL 65-99 H 2345-7) Lab Interpretation (test code = Abnormal 23288-2) [facility] CenterHemoglobin, [id number] 19:45:00 Test Item Value Reference Range Interpretation Comments Hemoglobin, syringe (test 7.0 g/dL 14.0-18.0 LL Fi nal results code = 718-7) called to and read back by Autumn Perez RN. 12/15/2021 14:4 5 HE Lab Interpretation (test Abnormal code = 85845-9) [facility] CenterIonized calcium, [id number] 19:45:00 Test Item Value Reference Range Interpretation Comments Ionized calcium, arterial (test 1.10 mmol/L 1.11-1.32 L code = 24662-7) Lab Interpretation (test code = Abnormal 86952-1) [facility] CenterPotassium, [id number] 19:45:00 Test Item Value Reference Range Interpretation Comments Potassium, syringe 4.8 See_Comment [Automat ed message] The (test code = 2007) system wh ich generated this result tra nsmitted reference range : 3.5 - 5.0 mEq/L. The refe rence range was not used to interpret this result as normal/abnormal . [facility] Centerodium level, [id number] 19:45:00 Test Item Value Reference Range Interpretation Comments Sodium, syringe (test 135 See_Comment [Auto mated message] The code = 2947-0) system which generated this result tra nsmitted reference range : 125 - 148 mEq/L. The refe rence range was not used to interpret this result as normal/abnormal . [facility] CenterArterial blood gas, [id number] 19:45:00 Test Item Value Reference Range Interpretation [...] 405 See_Comment H [A utomated message] = 1343-7) The system whic h generated this result transmitted ref erence range: 80 - 90 mmHg. The reference r lorena was not used to interpret this result as normal/abnor mal. Temperature, Celsius 36.0 Degrees C (test code = 8310-5) O2 saturation, arterial 100 % 95-100 (test code = 2708-6) pH, arterial corrected 7.40 (test code = 86109-4) pCO2, arterial corrected 37 mmHg (test code = 40323-2) pO2, arterial corrected 400 mmHg (test code = 67928-2) Base excess, arterial -2 See_Comment [Auto mated message] (test code = 1925-7) The sys tem which generated this result transmitted ref erence range: -2 - 2 m Eq/L. The reference r lorena was not used to interpret this result as normal/abnor mal. Lab Interpretation (test Abnormal code = 97206-3) [facility] HospitalGlucose level, [id number] 19:45:00 Test Item Value Reference Range Interpretation Comments Glucose, syringe (test code = 125 mg/dL 65-99 H 2345-7) Lab Interpretation (test code = Abnormal 31973-9) [facility] HospitalHemoglobin, [id number] 19:45:00 Test Item Value Reference Range Interpretation Comments Hemoglobin, syringe (test 7.0 g/dL 14.0-18.0 LL Fi nal results code = 718-7) called to and read back by Autumn Perez RN. 12/15/2021 14:4 5 HE Lab Interpretation (test Abnormal code = 25958-0) [facility], [id number] 19:45:00 Test Item Value Reference Range Interpretation Comments Ionized calcium, arterial (test 1.10 mmol/L 1.11-1.32 L code = 99209-5) Lab Interpretation (test code = Abnormal 42618-6) [facility] CenterPotassium, [id number] 19:45:00 Test Item Value Reference Range Interpretation Comments Potassium, syringe 4.8 See_Comment [Automat ed message] The (test code = 2007) system [facility] generated this result tra nsmitted reference range : 3.5 - 5.0 mEq/L. The refe rence range was not used to interpret this result as normal/abnormal . [facility] Centerodium level, [id number] 19:45:00 Test Item Value Reference Range Interpretation Comments Sodium, syringe (test 135 See_Comment [Auto mated message] The code = 2947-0) system which generated this result tra nsmitted reference range : 125 - 148 mEq/L. The refe rence range was not used to interpret this result as normal/abnormal . [facility] CenterArterial blood gas, [id number] 19:45:00 Test Item Value Reference Range Interpretation Comments pH, arterial (test code 7.38 7.35-7.45 = 2744-1) pCO2, arterial (test 39 See_Comment [Autom ated message] code = 2019-8) The system [facility] generated this result transmitted ref erence range: 35 - 45 mmHg. The reference r lorena was not used to interpret this result as normal/abnor mal. pO2, arterial (test code 405 See_Comment H [A utomated message] = 2703-7) The system [facility] h generated this result transmitted ref erence range: 80 - 90 mmHg. The reference r lorena was not used to interpret this result as normal/abnor mal. Temperature, Celsius 36.0 Degrees C (test code = 8310-5) O2 saturation, arterial 100 % 95-100 (test code = 2708-6) pH, arterial corrected 7.40 (test code = 06951-8) pCO2, arterial corrected 37 mmHg (test code = 11964-8) pO2, arterial corrected 400 mmHg (test code = 32746-5) Base excess, arterial -2 See_Comment [Auto mated message] (test code = 1925-7) The [facility] tem which generated this result transmitted ref erence range: -2 - 2 m Eq/L. The reference r lorena was not used to interpret this result as normal/abnor mal. Lab Interpretation (test Abnormal code = 44665-9) [facility] CenterGlucose level, [id number] 19:45:00 Test Item Value Reference Range Interpretation Comments Glucose, syringe (test code = 125 mg/dL 65-99 H 2345-7) Lab Interpretation (test code = Abnormal 29512-2) [facility] CenterHemoglobin, [id number] 19:45:00 Test Item Value Reference Range Interpretation Comments Hemoglobin, syringe (test 7.0 g/dL 14.0-18.0 LL Fi nal results code = 718-7) called to and read back by Autumn Perez RN. 12/15/2021 14:4 5 HE Lab Interpretation (test Abnormal code = 25882-1) [facility] CenterIonized calcium, [id number] 19:45:00 Test Item Value Reference Range Interpretation Comments Ionized calcium, arterial (test 1.10 mmol/L 1.11-1.32 L code = 73913-5) Lab Interpretation (test code = Abnormal 77171-1) [facility] CenterPotassium, [id number] 19:45:00 Test Item Value Reference Range Interpretation Comments Potassium, syringe 4.8 See_Comment [Automat ed message] The (test code = 2007) system ich generated this result tra nsmitted reference range : 3.5 - 5.0 mEq/L. The refe rence range was not used to interpret this result as normal/abnormal . [facility] Centerodium level, [id number] 19:45:00 Test Item Value Reference Range Interpretation Comments Sodium, syringe (test 135 See_Comment [Auto mated message] The code = 2947-0) system which generated this result tra nsmitted reference range : 125 - 148 mEq/L. The refe rence range was not used to interpret this result as normal/abnormal . [facility] CenterArterial blood gas, [id number] 19:45:00 Test Item Value Reference Range Interpretation Comments pH, arterial (test code 7.38 7.35-7.45 = 2744-1) pCO2, arterial (test 39 See_Comment [Autom ated message] code = 2019-8) The system ich generated this result transmitted ref erence range: 35 - 45 mmHg. The reference r lorena was not used to interpret this result as normal/abnor mal. pO2, arterial (test code 405 See_Comment H [A utomated message] = 8283-7) The system [employer] h generated this result transmitted ref erence range: 80 - 90 mmHg. The reference r lorena was not used to interpret this result as normal/abnor mal. Temperature, Celsius 36.0 Degrees C (test code = 8310-5) O2 saturation, arterial 100 % 95-100 (test code = 2708-6) pH, arterial corrected 7.40 (test code = 68354-9) pCO2, arterial corrected 37 mmHg (test code = 83468-3) pO2, arterial corrected 400 mmHg (test code = 47199-6) Base excess, arterial -2 See_Comment [Auto mated message] (test code = 1925-7) The sys tem which generated this result transmitted ref erence range: -2 - 2 m Eq/L. The reference r lorena was not used to interpret this result as normal/abnor mal. Lab Interpretation (test Abnormal code = 49470-2) [facility] HospitalGlucose level, [id number] 19:45:00 Test Item Value Reference Range Interpretation Comments Glucose, syringe (test code = 125 mg/dL 65-99 H 2345-7) Lab Interpretation (test code = Abnormal 94228-7) [facility] HospitalHemoglobin, [id number] 19:45:00 Test Item Value Reference Range Interpretation Comments Hemoglobin, syringe (test 7.0 g/dL 14.0-18.0 LL Fi nal results code = 718-7) called to and read back by Autumn Perez RN. 12/15/2021 14:4 5 HE Lab Interpretation (test Abnormal code = 95954-5) [facility] HospitalIonized calcium, [id number] 19:45:00 Test Item Value Reference Range Interpretation Comments Ionized calcium, arterial (test 1.10 mmol/L 1.11-1.32 L code = 10776-1) Lab Interpretation (test code = Abnormal 42381-3) [facility] HospitalPotassium, [id number] 19:45:00 Test Item Value Reference Range Interpretation Comments Potassium, syringe 4.8 See_Comment [Automat ed message] The (test code = 2007) system wh ich generated this result tra nsmitted reference range : 3.5 - 5.0 mEq/L. The refe rence range was not used to interpret this result as normal/abnormal . [facility] Centerodium [facility], [id number] 19:45:00 Test Item Value Reference Range Interpretation Comments Sodium, syringe (test 135 See_Comment [Auto mated message] The code = 2947-0) system which generated this result tra nsmitted reference range : 125 - 148 mEq/L. The refe rence range was not used to interpret this result as normal/abnormal . [facility] CenterArterial blood gas, [id number] 19:45:00 Test Item Value Reference Range Interpretation Comments pH, arterial (test code 7.38 7.35-7.45 = 2744-1) pCO2, arterial (test 39 See_Comment [Autom ated message] code = 2019-8) The system ich generated this result transmitted ref erence range: 35 - 45 mmHg. The reference r lorena was not used to interpret this result as normal/abnor mal. pO2, arterial (test code 405 See_Comment H [A utomated message] = 2703-7) The system [employer] h generated this result transmitted ref erence range: 80 - 90 mmHg. The reference r lorena was not used to interpret this result as normal/abnor mal. Temperature, Celsius 36.0 Degrees C (test code = 8310-5) O2 saturation, arterial 100 % 95-100 (test code = 2708-6) pH, arterial corrected 7.40 (test code = 00544-2) pCO2, arterial corrected 37 mmHg (test code = 73805-9) pO2, arterial corrected 400 mmHg (test code = 47155-9) Base excess, arterial -2 See_Comment [Auto mated message] (test code = 1925-7) The [facility] tem which generated this result transmitted ref erence range: -2 - 2 m Eq/L. The reference r lorena was not used to interpret this result as normal/abnor mal. Lab Interpretation (test Abnormal code = 34994-8) [facility] CenterGlucose level, [id number] 19:45:00 Test Item Value Reference Range Interpretation Comments Glucose, syringe (test code = 125 mg/dL 65-99 H 2345-7) Lab Interpretation (test code = Abnormal 12272-5) [facility] CenterHemoglobin, [id number] 19:45:00 Test Item Value Reference Range Interpretation Comments Hemoglobin, syringe (test 7.0 g/dL 14.0-18.0 LL Fi nal results code = 718-7) called to and read back by Autumn Perez RN. 12/15/2021 14:4 5 HE Lab Interpretation (test Abnormal code = 01673-6) [facility] CenterIonized calcium, [id number] 19:45:00 Test Item Value Reference Range Interpretation Comments Ionized calcium, arterial (test 1.10 mmol/L 1.11-1.32 L code = 99989-7) Lab Interpretation (test code = Abnormal 75365-3) [facility] CenterPotassium, [id number] 19:45:00 Test Item Value Reference Range Interpretation Comments Potassium, syringe 4.8 See_Comment [Automat ed message] The (test code = 2008) system wh ich generated this result tra nsmitted reference range : 3.5 - 5.0 mEq/L. The refe rence range was not used to interpret this result as normal/abnormal . [facility] Centerodium [facility], [id number] 19:45:00 Test Item Value Reference Range Interpretation Comments Sodium, syringe (test 135 See_Comment [Auto mated message] The code = 2947-0) system which generated this result tra nsmitted reference range : 125 - 148 mEq/L. The refe rence range was not used to interpret this result as normal/abnormal . [place] [address] snni7735-68-06 04:07:28 Test Item Value Reference Range Interpretation Comments Ventricular rate 63 (test code = 253) Atrial rate (test 63 code = 255) DC interval (test 158 code = 266) QRSD [...] atrial enlargement-Anteroseptal infarct , age undetermined-Abnormal ECG-- [facility]2022-09-17 04:07:28 Test Item Value Reference Range Interpretation Comments Ventricular rate (test code = 253) Atrial rate (test code = 255) DC interval (test code = 266) QRSD interval (test code = 260) QT interval (test code = 264) QTC interval (test code = 265) P axis 1 (test code = 267) QRS axis 1 (test code = 268) T wave axis (test code = 270) EKG impression (test Normal sinus code = 273) rhythm--Possible Left atrial enlargement-Anteroseptal infarct , age undetermined-Abnormal ECG-- [address]2022-09-17 04:07:28 Test Item Value Reference Range Interpretation Comments Ventricular rate (test code = 253) Atrial rate (test code = 255) DC interval (test code = 266) QRSD interval (test code = 260) QT interval (test code = 264) QTC interval (test code = 265) P axis 1 (test code = 267) QRS axis 1 (test code = 268) T wave axis (test code = 270) EKG impression (test Normal sinus code = 273) rhythm--Possible Left atrial enlargement-Anteroseptal infarct , age undetermined-Abnormal ECG-- [place] [id number] 04:07:28 Test Item Value Reference Range Interpretation Comments Ventricular rate 63 (test code = 253) Atrial rate (test 63 code = 255) DC interval (test 158 code = 266) QRSD [...] atrial enlargement-Anteroseptal infarct , age undetermined-Abnormal ECG-- [address]2022-09-17 04:07:28 Test Item Value Reference Range Interpretation Comments Ventricular rate 63 (test code = 253) Atrial rate (test 63 code = 255) DC interval (test 158 code = 266) QRSD [...] atrial enlargement-Anteroseptal infarct , age undetermined-Abnormal ECG-- [address]2022-09-17 04:07:28 Test Item Value Reference Range Interpretation Comments Ventricular rate 63 (test code = 253) Atrial rate (test 63 code = 255) DC interval (test 158 code = 266) QRSD [...] atrial enlargement-Anteroseptal infarct , age undetermined-Abnormal ECG-- [address]2022-09-17 04:07:28 Test Item Value Reference Range Interpretation Comments Ventricular rate 63 (test code = 253) Atrial rate (test 63 code = 255) DC interval (test 158 code = 266) QRSD [...] atrial enlargement-Anteroseptal infarct , age undetermined-[id number] 04:07:28 Test Item Value Reference Range Interpretation Comments Ventricular rate 63 (test code = 253) Atrial rate (test 63 code = 255) DC interval (test 158 code = 266) QRSD [...] atrial enlargement-Anteroseptal infarct , age undetermined-[facility]normal [facility] [Presence] in Respiratory specimen by CHER with probe [id number] 02:56:55 Test Item Value Reference Range Interpretation Comments SARS-CoV-2 (COVID-19) RNA Not detected [Presence] in Respiratory specimen by CHER with probe detection (test code = 11479-7) Whether patient is employed in a Unknown healthcare setting (test code = 28250-8) Whether the patient has symptoms Unknown related to condition of interest (test code = 17050-4) Whether the patient was Unknown hospitalized for condition of interest (test code = 74472-1) Whether the patient was admitted Unknown to intensive care unit (ICU) for condition of interest (test code = 30846-9) Whether patient resides in a Unknown congregate care setting (test code = 16924-1) status (test code = Unknown 04301-1) Date and time of symptom onset Unknown (test code = 43777-9) [facility] [id number] 18:21:00 Test Item Value Reference Range Interpretation Comments HEPATITIS B SURFACE ANTIGEN (2) Nonreactive Nonreactive (BEAKER) (test code = 2585) ANG, THROMBECTOMY, A-V [id number] 13:26:00Reason for exam:- >nonfunctioning fistulaAnesthesia:->moderateFINAL REPORT DIALYSIS [...] MDReport Verified Date/Time: 02/18/2019 13:26:57 Reading Location: [facility] Radiology Reading Room [id number] 05:52:00 Test Item Value Reference Range Interpretation Comments MAGNESIUM (BEAKER) (test code = 2.0 mg/dL 1.5-3.0 627) BASIC METABOLIC [id number] 05:51:00 Test Item Value Reference Range Interpretation [...] PATIEN TS. CBC W/PLT COUNT & AUTO [id number] 05:37:00 Test Item Value Reference Range Interpretation [...] = 2801) RAD, CHEST, 1 VIEW, NON [id number] 09:21:00Reason for exam:- >pneumoniaShould this be performed at the bedside?->YesFINAL REPORT TECHNIQUE: Frontal view of the chest. INDICATION: pneumonia COMPARISON:Prior day. IMPRESSION:Lines and hardware: Stable.Heart and mediastinum: Stable.Lungs and pleura:Probable scattered atelectasis. No focal airspace consolidation. Central coronary venous congestion.No pleural effusion. No pneumothorax.Soft tissues and bones: No acute abnormality. Signed: Rupinder Campbell MDReport Verified Date/Time: 02/17/2019 09:21:38 Reading Location: [facility] Radiology Reading Room COMPREHENSIVE METABOLIC [id number] 06:48:00 Test Item Value Reference Range Interpretation [...] S NOT APPLICABLE FOR DIALYSIS PATIEN TS. [id number] 06:30:00 Test Item Value Reference Range Interpretation Comments MAGNESIUM (BEAKER) (test code = 2.0 mg/dL 1.5-3.0 627) TROPONIN [id number] 06:27:00 Test Item Value Reference Range Interpretation [...] = 2801) RAD, CHEST, 1 VIEW, NON [id number] 00:02:00Reason for exam:- >PNEUMONIAShould this be performed [...] suggestive of mild volume overload. Signed: Rm Shipley MDReport Verified Date/Time: 02/17/2019 00:02:21 Reading Location: [address] Consult Reading Room TROPONIN [id number] 19:17:00 Test Item Value Reference Range Interpretation [...] acute neurological disease, and persistent tachyarrhythmia.COMPREHENSIVE METABOLIC [id number] 19:13:00 Test Item Value Reference Range Interpretation [...] S NOT APPLICABLE FOR DIALYSIS PATIEN TS. [id number] 19:10:00 Test Item Value Reference Range Interpretation Comments MAGNESIUM (BEAKER) 2.1 mg/dL 1.5-3.0 Specimen moderately (test code = 627) hemolyzed CBC W/PLT COUNT & AUTO [id number] 18:47:00 Test Item Value Reference Range Interpretation [...] PERCENT (BEAKER) (test code = 2801) BLOOD [id number] 07:18:00 Test Item Value Reference Range Interpretation Comments Culture Observations (test NO GROWTH AFTER 5 code = COB1) DAYS BLOOD [id number] 07:18:00 Test Item Value Reference Range Interpretation Comments Culture Observations (test NO GROWTH AFTER 5 code = COB1) DAYS HEPATITIS B CORE ANTIBODY,[id number] 12:26:00 Test Item Value Reference Range Interpretation Comments HEPATITIS B CORE AB NON-REACTIVE NON-REACTIVE TEST PER FORMED TOTAL (test code = AT:[facility] 88362365) [id number] [place] [address]CJZSKKAI SANTIAGO M.D. XR CHEST 1 [id number] 08:09:24 Location of dictation: O2Hbkxgzto chest one view.HISTORY: J81.1: CHRONIC PULMONARY EDEMACOMMENT: Compared to one day prior. The heart is enlarged but stable, globularappearance suggests pericardial eff usion. Small effusions are now presentslightly greater on the left. No new consolidation, pneumothorax seen.Impression:1. Stable cardiomegaly with concern for pericardial effusion.2. Interval development of small effusions slightly greater on the left.BASIC METABOLIC [id number] 07:14:00 Test Item Value Reference Range Interpretation [...] Comments WBC (test code = WBC) 12.1 10\\S\\3/uL 4.5-11.0 H RBC (test code = RBC) 3.19 10\\S\\6/uL 4.30-5.70 L HGB (test code = HBG) 9.2 g/dL 14.0-18.0 L HCT (test code = HCT) 27.6 % 35.0-46.0 L MCV (test code = MCV) 86.5 fL 80.0-94.0 MCH (test code = MCH) 28.8 pg 27.0-31.0 MCHC (test code = MCHC) 33.3 g/dL 32.0-36.0 RDW (test code = RDW) 15.6 % 11.5-14.5 H PLT (test code = PLT) 320 10\\S\\3/uL 130-400 MPV (test code = MPV) 10.6 fL 9.4-12.4 NEUTROP # (test code = NE#) 9.7 10\\S\\3/uL 2.0-8.0 H LYMPH # (test code = LY#) 0.4 10\\S\\3/uL 1.2-4.0 L MONOCYTE # (test code = MO#) 1.8 10\\S\\3/uL 0.0-1.1 H EOSINOPH # (test code = EO#) 0.1 10\\S\\3/uL 0.0-0.7 BASOPHIL # (test code = BA#) 0.1 10\\S\\3/uL 0.0-0.3 IG # (test code = IG#) 0.10 10\\S\\3/uL 0.00-0.06 H NRBC # (test code = NRBC#) 0.03 10\\S\\3/uL 0.00-0.01 H NEUTROPH % (test code = [...] code = RBCMOR) NORMAL XR CHEST 1 [id number] 07:33:56STUDY: Chest radiographHISTORY: Fever.COMPARISON: 09/05/17TECHNIQUE: Frontal view of the chest.LOCATION: [id number]:The cardiac silhouette is enlarged, stable. Bilateral patchy perihilaropacities are similar in appearance. There is no definitive pleural effusion ordiscernible pneumothorax. No acute osseous abnormalities are identified.IMPRESSION:Stable appearance of bilateral perihilar patchy opacities and cardiomegaly.BASIC METABOLIC [id number] 04:50:00 Test Item Value Reference Range Interpretation [...] (test code = 09D) 8.6 mg/dL 8.3-9.5 [id number] 04:43:00 Test Item Value Reference Range Interpretation Comments MAGNESIUM (test code = 48A) 1.7 mg/dL 1.8-2.4 L CBC (INCLUDES AUTOMATED DIFFERENTIAL)2017-09-07 04:07:00 Test Item Value Reference Range Interpretation Comments WBC (test code = WBC) 7.4 10\\S\\3/uL 4.5-11.0 RBC (test code = RBC) 3.10 10\\S\\6/uL 4.30-5.70 L HGB (test code = HBG) 9.0 g/dL 14.0-18.0 L HCT (test code = HCT) 27.0 % 35.0-46.0 L MCV (test code = MCV) 87.1 fL 80.0-94.0 MCH (test code = MCH) 29.0 pg 27.0-31.0 MCHC (test code = MCHC) 33.3 g/dL 32.0-36.0 RDW (test code = RDW) 15.5 % 11.5-14.5 H PLT (test code = PLT) 250 10\\S\\3/uL 130-400 MPV (test code = MPV) 10.5 fL 9.4-12.4 NEUTROP # (test code = NE#) 4.7 10\\S\\3/uL 2.0-8.0 LYMPH # (test code = LY#) 0.7 10\\S\\3/uL 1.2-4.0 L MONOCYTE # (test code = MO#) 1.5 10\\S\\3/uL 0.0-1.1 H EOSINOPH # (test code = EO#) 0.3 10\\S\\3/uL 0.0-0.7 BASOPHIL # (test code = BA#) 0.1 10\\S\\3/uL 0.0-0.3 IG # (test code = IG#) 0.07 10\\S\\3/uL 0.00-0.06 H NRBC # (test code = NRBC#) 0.00 10\\S\\3/uL 0.00-0.01 NEUTROPH % (test code = NE%) [...] MORPH (test code = RBCMOR) NORMAL CARDIAC [id number] 03:24:00 Test Item Value Reference Range Interpretation Comments TROPONIN I (test code = A84) 0.269 ng/mL 0.000-0.045 H CKMB (test code = A49) 7.8 ng/mL <=3.6 HH CPK (test code = 32A) 414 IU/L 39-308 H BASIC METABOLIC [id number] 03:08:00 Test Item Value Reference Range Interpretation [...] Comments WBC (test code = WBC) 6.2 10\\S\\3/uL 4.5-11.0 RBC (test code = RBC) 2.91 10\\S\\6/uL 4.30-5.70 L HGB (test code = HBG) 8.4 g/dL 14.0-18.0 L HCT (test code = HCT) 25.3 % 35.0-46.0 L MCV (test code = MCV) 86.9 fL 80.0-94.0 MCH (test code = MCH) 28.9 pg 27.0-31.0 MCHC (test code = MCHC) 33.2 g/dL 32.0-36.0 RDW (test code = RDW) 15.5 % 11.5-14.5 H PLT (test code = PLT) 211 10\\S\\3/uL 130-400 MPV (test code = MPV) 9.8 fL 9.4-12.4 NEUTROP # (test code = NE#) 4.2 10\\S\\3/uL 2.0-8.0 LYMPH # (test code = LY#) 0.5 10\\S\\3/uL 1.2-4.0 L MONOCYTE # (test code = MO#) 1.1 10\\S\\3/uL 0.0-1.1 EOSINOPH # (test code = EO#) 0.2 10\\S\\3/uL 0.0-0.7 BASOPHIL # (test code = BA#) 0.1 10\\S\\3/uL 0.0-0.3 IG # (test code = IG#) 0.10 10\\S\\3/uL 0.00-0.06 H NRBC # (test code = NRBC#) 0.00 10\\S\\3/uL 0.00-0.01 NEUTROPH % (test code = NE%) [...] code = RBCMOR) NORMAL HEPATITIS B SURFACE [id number] 21:09:00 Test Item Value Reference Range Interpretation Comments HBSAB (test code = HBSAB) REACTIVE REACTIVE HEPATITIS B SURFACE [id number] 20:37:00 Test Item Value Reference Range Interpretation Comments HBSAG (test code = HBSAG) NON-REACTIVE NON-REACTIVE CARDIAC [id number] 20:23:00 Test Item Value Reference Range Interpretation Comments TROPONIN I (test code = A84) 0.231 ng/mL 0.000-0.045 H CKMB (test code = A49) 11.0 ng/mL <=3.6 HH CPK (test code = 32A) 469 IU/L 39-308 H PRO TIME AND [id number] 11:37:00 Test Item Value Reference Range Interpretation [...] Comments WBC (test code = WBC) 6.1 10\\S\\3/uL 4.5-11.0 RBC (test code = RBC) 2.93 10\\S\\6/uL 4.30-5.70 L HGB (test code = HBG) 8.6 g/dL 14.0-18.0 L HCT (test code = HCT) 25.6 % 35.0-46.0 L MCV (test code = MCV) 87.4 fL 80.0-94.0 MCH (test code = MCH) 29.4 pg 27.0-31.0 MCHC (test code = MCHC) 33.6 g/dL 32.0-36.0 RDW (test code = RDW) 16.1 % 11.5-14.5 H PLT (test code = PLT) 241 10\\S\\3/uL 130-400 MPV (test code = MPV) 11.0 fL 9.4-12.4 NEUTROP # (test code = NE#) 4.9 10\\S\\3/uL 2.0-8.0 LYMPH # (test code = LY#) 0.3 10\\S\\3/uL 1.2-4.0 L MONOCYTE # (test code = MO#) 0.7 10\\S\\3/uL 0.0-1.1 EOSINOPH # (test code = EO#) 0.1 10\\S\\3/uL 0.0-0.7 BASOPHIL # (test code = BA#) 0.1 10\\S\\3/uL 0.0-0.3 IG # (test code = IG#) 0.07 10\\S\\3/uL 0.00-0.06 H NRBC # (test code = NRBC#) 0.00 10\\S\\3/uL 0.00-0.01 NEUTROPH % (test code = NE%) [...] = RBCMOR) NORMAL XR CHEST 1 VIEW [id number] 10:04:30EXAMINATION: XR CHEST 1 VIEW PORTABLE.LOCATION: .HISTORY: [...] tiny effusions, unchangedsince 09/01/2017,probably reflect vascular congestion.OCCULT [id number] 11:04:00 Test Item Value Reference Range Interpretation [...] 31A) 27 IU/L <=78 CBC (INCLUDES AUTOMATED DIFFERENTIAL)*[id number] 09:07:00 Test Item Value Reference Range Interpretation Comments WBC (test code = WBC) 8.9 10\\S\\3/uL 4.5-11.0 RBC (test code = RBC) 2.87 10\\S\\6/uL 4.30-5.70 L HGB (test code = HBG) 8.6 g/dL 14.0-18.0 L HCT (test code = HCT) 23.6 % 35.0-46.0 LL MCV (test code = MCV) 82.2 fL 80.0-94.0 MCH (test code = MCH) 30.0 pg 27.0-31.0 MCHC (test code = MCHC) 36.4 g/dL 32.0-36.0 H RDW (test code = RDW) 15.6 % 11.5-14.5 H PLT (test code = PLT) 231 10\\S\\3/uL 130-400 MPV (test code = MPV) 9.2 fL 9.4-12.4 L NEUTROP # (test code = NE#) 7.7 10\\S\\3/uL 2.0-8.0 LYMPH # (test code = LY#) 0.3 10\\S\\3/uL 1.2-4.0 L MONOCYTE # (test code = MO#) 0.6 10\\S\\3/uL 0.0-1.1 EOSINOPH # (test code = EO#) 0.3 10\\S\\3/uL 0.0-0.7 BASOPHIL # (test code = BA#) 0.0 10\\S\\3/uL 0.0-0.3 IG # (test code = IG#) 0.06 10\\S\\3/uL 0.00-0.06 NRBC # (test code = NRBC#) 0.00 10\\S\\3/uL 0.00-0.01 NEUTROPH % (test code = NE%) [...] (IGM) (test AT:[facility] code = [id number]) [id number] [place] [address]BCEYVKAI SANTIAGO M.D. HEPATITIS B SURFACE ANTIBODY *WW*2017-09-02 15:30:00 Test Item Value Reference Range Interpretation Comments HBSAB (test code = HBSAB) REACTIVE REACTIVE XR CHEST 2 VIEW *WW*2017-09-01 23:21:54XR CHEST 2 VIEW *WW*Location:[address] services provided 09/01/2017 11:21 PMIndication:[id number]: Hypertensive disorderComparison:Not currently availableFindings:The heart is enlarged with mild engorgement of the pulmonaryvascularity and prominence of the pulmonary interstitium. Bilateral pleuralfluid collections are noted. No chicho lobar consolidation is seen. No acutebony abnormality.Impression:Findings concerning for cardiogenic pulmonary edema with bilateralpleural fluid collections. HEPATITIS B CORE ANTIBODY,[id number] 12:54:00 Test Item Value Reference Range Interpretation Comments HEPATITIS B CORE AB NON-REACTIVE NON-REACTIVE TEST PER FORMED TOTAL (test code = AT:[facility] [id number]) [id number] [place] [address]NLBCRKAI SANTIAGO M.D. GLUCOMETER GLUCOSE- LAB USE [id number] 06:26:00 Test Item Value Reference Range Interpretation Comments GLUCOMETER (test code = 102 mg/dL 70-100 H Mete r ID: GMG) [id number] tor: [id number] NM LUNG (V/Q ) SCAN W [id number] 15:28:50Radionuclide ventilation/perfusion lung scanLocation Code: D3ZAGZOJH: Shortness of breathCOMPARISON:None.COMMENT: Routine images of the lungs were obtained after inhalation of 11.1 mCiof Xe133 gas andintravenous injection of 6.0 mCi 99 M technetium MAA.Ventilation is symmetric bilaterally with no focal defect. There is nosignificant trapping.Perfusion images demonstrate normal and symmetric perfusion with no segmentaldefect to suggest a PE.IMPRESSION: Normal VQ scan with a low probability of PE.BASIC METABOLIC [id number] 07:39:00 Test Item Value Reference Range Interpretation [...] Comments WBC (test code = WBC) 6.1 10\\S\\3/uL 4.5-11.0 RBC (test code = RBC) 4.05 10\\S\\6/uL 4.30-5.70 L HGB (test code = HBG) 12.1 g/dL 14.0-18.0 L HCT (test code = HCT) 34.6 % 35.0-46.0 L MCV (test code = MCV) 85.4 fL 80.0-94.0 MCH (test code = MCH) 29.9 pg 27.0-31.0 MCHC (test code = MCHC) 35.0 g/dL 32.0-36.0 RDW (test code = RDW) 15.9 % 11.5-14.5 H PLT (test code = PLT) 135 10\\S\\3/uL 130-400 MPV (test code = MPV) 11.1 fL 9.4-12.4 NEUTROP # (test code = NE#) 4.8 10\\S\\3/uL 2.0-8.0 LYMPH # (test code = LY#) 0.4 10\\S\\3/uL 1.2-4.0 L MONOCYTE # (test code = MO#) 0.6 10\\S\\3/uL 0.0-1.1 EOSINOPH # (test code = EO#) 0.1 10\\S\\3/uL 0.0-0.7 BASOPHIL # (test code = BA#) 0.1 10\\S\\3/uL 0.0-0.3 IG # (test code = IG#) 0.02 10\\S\\3/uL 0.00-0.06 NRBC # (test code = NRBC#) 0.00 10\\S\\3/uL 0.00-0.01 NEUTROPH % (test code = NE%) [...] code = RBCMOR) NORMAL HEPATITIS B SURFACE [id number] 18:54:00 Test Item Value Reference Range Interpretation Comments HBSAB (test code = HBSAB) REACTIVE REACTIVE HEPATITIS B SURFACE [id number] 18:37:00 Test Item Value Reference Range Interpretation Comments HBSAG (test code = HBSAG) NON-REACTIVE NON-REACTIVE CARDIAC [id number] 18:35:00 Test Item Value Reference Range Interpretation Comments TROPONIN I (test code = A84) 0.115 ng/mL 0.000-0.045 H CKMB (test code = A49) 7.0 ng/mL <=3.6 HH CPK (test code = 32A) 652 IU/L 39-308 H CARDIAC [id number] 14:04:00 Test Item Value Reference Range Interpretation Comments TROPONIN I (test code = A84) 0.120 ng/mL 0.000-0.045 H CKMB (test code = A49) 7.4 ng/mL <=3.6 HH CPK (test code = 32A) 651 IU/L 39-308 H GLUCOMETER GLUCOSE- LAB USE [id number] 11:12:00 Test Item Value Reference Range Interpretation Comments GLUCOMETER (test code = 99 mg/dL 70-100 LIGIA BRUNA METERMeter ID: GMG) [id number] tor: [address] MARLENE COLES GLUCOMETER GLUCOSE- LAB USE [id number] 04:22:00 Test Item Value Reference Range Interpretation Comments GLUCOMETER (test code = 116 mg/dL 70-100 H Mete r ID: GMG) [id number] tor: [address] CORKY HOLMAN GLUCOMETER GLUCOSE- LAB USE [id number] 03:33:00 Test Item Value Reference Range Interpretation Comments GLUCOMETER (test code = 42 mg/dL 70-100 LL Mete r ID: GMG) [id number] tor: 4316 CORKY MAHONEY BRAIN NATRIURETIC [id number] 02:13:00 Test Item Value Reference Range Interpretation Comments proBNP (test code = PBNP) >631997 pg/mL 0-125 H XR ABDOMEN 2 VIEWS W/PA [id number] 02:11:50-CHEST AP VIEW-ABDOMEN AP AND UPRIGHT VIEWS LOCATION: [id number] INDICATION: Vomiting and shortnessof breathCOMPARISON: None FINDINGS: [...] obstruction, CT is recommended for further assessment.CARDIAC [id number] 01:33:00 Test Item Value Reference Range Interpretation Comments TROPONIN I (test code = A84) 0.147 ng/mL 0.000-0.045 H CKMB (test code = A49) 7.0 ng/mL <=3.6 HH CPK (test code = 32A) 688 IU/L 39-308 H COMPREHENSIVE METABOLIC [id number] 01:32:00 Test Item Value Reference Range Interpretation [...] 31A) 121 IU/L <=78 H AMYLASE AND [id number] 01:31:00 Test Item Value Reference Range Interpretation Comments AMYLASE (test code = 10A) 157 U/L 28-100 H LIPASE (test code = 60A) 224 IU/L 73-393 [id number] 01:26:00 Test Item Value Reference Range Interpretation Comments D-DIMER (test code = 687 ng/mL D-DU 0-234 H DDI) D-DIMER COMMENT (test *Level to rule out code = DDCOM) DVT or PE: <235 ng/mL D-DU* PRO TIME AND [id number] 01:26:00 Test Item Value Reference Range Interpretation [...] Comments WBC (test code = WBC) 7.0 10\\S\\3/uL 4.5-11.0 RBC (test code = RBC) 1.81 10\\S\\6/uL 4.30-5.70 L HGB (test code = HBG) 5.4 g/dL 14.0-18.0 LL HCT (test code = HCT) 15.8 % 35.0-46.0 LL MCV (test code = MCV) 87.3 fL 80.0-94.0 MCH (test code = MCH) 29.8 pg 27.0-31.0 MCHC (test code = MCHC) 34.2 g/dL 32.0-36.0 RDW (test code = RDW) 15.1 % 11.5-14.5 H PLT (test code = PLT) 200 10\\S\\3/uL 130-400 MPV (test code = MPV) 11.1 fL 9.4-12.4 NEUTROP # (test code = NE#) 5.1 10\\S\\3/uL 2.0-8.0 LYMPH # (test code = LY#) 0.9 10\\S\\3/uL 1.2-4.0 L MONOCYTE # (test code = MO#) 0.9 10\\S\\3/uL 0.0-1.1 EOSINOPH # (test code = EO#) 0.1 10\\S\\3/uL 0.0-0.7 BASOPHIL # (test code = BA#) 0.0 10\\S\\3/uL 0.0-0.3 IG # (test code = IG#) 0.04 10\\S\\3/uL 0.00-0.06 NRBC # (test code = NRBC#) 0.00 10\\S\\3/uL 0.00-0.01 NEUTROPH % (test code = NE%) [...] NO RBC MORPH (test code = RBCMOR) NORMAL"
--- NOTE | 2022-05-29 12:40 | RAD REPORT ---
EXAM DESCRIPTION: CT - CTHCSPWOC - 05/29/2022 12:28 pm CLINICAL HISTORY: Trauma, head and neck injury. TRAUMA COMPARISON: Head C Spine Mpr Wo Con dated 11/20/2021; Chest Abd Pelvis Wo Con dated 05/08/2022 TECHNIQUE: Axial 5 mm thick images of the head were obtained. Axial 2 mm thick images of the cervical spine were obtained with sagittal and coronal reconstruction images generated and reviewed. All CT scans are performed using dose optimization technique as appropriate and may include automated exposure control or mA/KV adjustment according to patient size. FINDINGS: CT HEAD WITHOUT CONTRAST: No acute hemorrhage, hydrocephalus or extra-axial collection is identified.Mild generalized brain atr ophy is present with mild periventricular and deep white matter chronic microvascular ischemic change s.No areas of brain edema or midline shift. The paranasal sinuses and mastoids are clear.The calvarium is intact. CT CERVICAL SPINE WITHOUT CONTRAST: No fracture or subluxation.There is advanced degenerative change at C5-6 with 4 mm retrolisthesis.No prevertebral soft tissues swelling is identified. There is significant subcutaneous emphysema seen the right shoulder of posterior neck. This presumabl y related right-sided intervention in the chest. Small amount of pneumothorax is likely present in th e right apex. Recommend correlation with right-sided chest intervention or surgical history. IMPRESSION: No acute intracranial or cervical spine findings. Significant subcutaneous emphysema right shoulder region involving the base of neck posteriorly right . Subtle right apical pneumothorax also likely present. Recommend correlation with history of right-s ided chest intervention. CT chest followup could be obtained for further evaluation.
--- NOTE | 2022-05-29 12:42 | RAD REPORT ---
EXAM DESCRIPTION: RAD - Chest Single View - 05/29/2022 12:34 pm CLINICAL HISTORY: COUGH Chest pain. COMPARISON: Chest Single View dated 12/07/2021; Chest Single View dated 08/20/2021 FINDINGS: Portable technique limits examination quality. Hazy opacity is seen in the right lung base. There is significant right-sided subcutaneous emphysema seen extending to and around the right shoulder. Small right apical pneumothorax. The previously note d large collection in the chest is significantly reduced presumably related to drainage procedure. Le ft lung is grossly clear.Left-sided venous catheter right atrium. Significant vascular stent is noted . IMPRESSION: Small apical right pneumothorax is seen estimated less than 10% of lung volume. Previous ly noted large loculated collection in right chest appears significantly reduced. A small amount of r ight pleural fluid in haziness in right lung base persists. Right-sided moderate subcutaneous emphysema.
--- NOTE | 2022-05-29 12:44 | RAD REPORT ---
EXAM DESCRIPTION: CT - CTFB CLINICAL HISTORY: FACIAL PAIN COMPARISON: No comparisons TECHNIQUE: Axial 2 mm thick images of the face were obtained with sagittal and coronal reconstructio n images. All CT scans are performed using dose optimization technique as appropriate and may include automated exposure control or mA/KV adjustment according to patient size. FINDINGS: No acute facial bone fracture is seen.The mandible is intact. The globes and orbital contents are grossly unremarkable.The paranasal sinuses and mastoids are clear . Subcutaneous emphysema is noted right base of the neck and right shoulder region. IMPRESSION: Negative for facial bone fracture.
[2022-05-29] MEDS ORDERED: CEFAZOLIN SODIUM 1 GM/VIAL ONE (13:07)
[2022-05-29] MEDS ORDERED: NA CHLORIDE 0.9% 1,000 ML ONE ×2 (13:07→16:04)
[2022-05-29 13:24] LABS: Protime INR 1.14
[2022-05-29] MEDS ORDERED: FENTANYL CITR 100 MCG/2 ML ONE (13:41)
[2022-05-29 13:45] LABS: Albumin 2.2 g/dL (3.4-5.0); Bilirubin Direct 0.1 mg/dL (0-0.2); Bilirubin Total 0.7 mg/dL (0.2-1.0); Potassium 4.9 mmol/L (3.5-5.1); Protein, Total 6.4 g/dL (6.4-8.2); Troponin High Sensitivity 53.9 pg/mL (<58.9)
--- NOTE | 2022-05-29 13:55 | EDPHYS ---
Physician Documentation [facility] Name: Velasquez Cruz Age: 47 yrs Sex: Male : 1975 Arrival Date: 05/29/2022 Time: 11:54 Bed 7 Private MD: ED Physician Abelino Nuñez HPI: 05/29 13:42 This 47 yrs old Black Male presents to ER via EMS with complaints of Syncope. samm 13:42 The patient has experienced syncope, became unresponsive, collapsed. Onset: The samm symptoms/episode began/occurred just prior to arrival. Duration: This was a single episode, that lasted 40 second(s). Associated injury: Head/face: Chest: pain, tenderness. Associated signs and symptoms: Pertinent positives: dizziness, headache, lightheadedness, recent surgery. Current symptoms: confusion. Historical: - Allergies: :55 No Known Allergies; bp - PMHx: :55 Anemia; Anxiety; Bipolar disorder; Cocaine Abuse; COPD; DVT; HD MWF; HEART FAILURE; bp Hypertensive disorder; - Immunization history:: Adult Immunizations up to date. - Social history:: Smoking status: Patient denies any tobacco usage or history of. ROS: 13:46 Constitutional: Negative for fever, chills, and weight loss, Eyes: Negative for injury, samm pain, redness, and discharge, ENT: Negative for injury, pain, and discharge, Neck: Negative for injury, pain, and swelling, Cardiovascular: Negative for chest pain, palpitations, and edema, Respiratory: Negative for shortness of breath, cough, wheezing, and pleuritic chest pain, Abdomen/GI: Negative for abdominal pain, nausea, vomiting, diarrhea, and constipation, : Negative for injury, bleeding, discharge, and swelling, Skin: Negative for injury, rash, and discoloration, Neuro: Negative for headache, weakness, numbness, tingling, and seizure, Psych: Negative for depression, anxiety, suicide ideation, homicidal ideation, and hallucinations, Allergy/Immunology: Negative for hives, rash, and allergies, Endocrine: Negative for neck swelling, polydipsia, polyuria, polyphagia, and marked weight changes. 13:46 Back: Positive for pain at rest, pain with movement, of the right trapezius, right scapular area and right subscapular area. Exam: 13:46 Constitutional: This is a well developed, well nourished patient who is awake, alert, samm and in no acute distress. Head/Face: Normocephalic, atraumatic. Eyes: Pupils equal round and reactive to light, extra-ocular motions intact. Lids and lashes normal. Conjunctiva and sclera are non-icteric and not injected. Cornea within normal limits. Periorbital areas with no swelling, redness, or edema. ENT: Nares patent. No nasal discharge, no septal abnormalities noted. Tympanic membranes are normal and external auditory canals are clear. Oropharynx with no redness, swelling, or masses, exudates, or evidence of obstruction, uvula midline. Mucous membranes moist. Neck: Trachea midline, no thyromegaly or masses palpated, and no cervical lymphadenopathy. Supple, full range of motion without nuchal rigidity, or vertebral point tenderness. No Meningismus. Cardiovascular: Regular rate and rhythm with a normal S1 and S2. No gallops, murmurs, or rubs. Normal PMI, no JVD. No pulse deficits. Abdomen/GI: Soft, non-tender, with normal bowel sounds. No distension or tympany. No guarding or rebound. No evidence of tenderness throughout. Back: No spinal tenderness. No costovertebral tenderness. Full range of motion. Male : Normal genitalia with no discharge or lesions. Skin: Warm, dry with normal turgor. Normal color with no rashes, no lesions, and no evidence of cellulitis. 13:46 Chest/axilla: Inspection: normal, no acute changes, Palpation: crepitus, that is mild, of the right lateral anterior chest and right lateral posterior chest, tenderness, that is mild, of the right lateral anterior chest and right lateral posterior chest. 13:46 ECG was reviewed by the Attending Physician. 13:55 Musculoskeletal/extremity: DVT Exam: no pain, no tenderness, negative Homans' sign samm noted on exam, no appreciated bluish discoloration, no erythema, no increased warmth, swelling. Vital Signs: 11:54 BP 98 / 40; Pulse 85; Resp 17; bp 13:05 BP 101 / 56; Pulse 77; Resp 15; Temp 98; Pulse Ox 98% ; bp 14:59 BP 91 / 59; Pulse 79; Resp 17; Pulse Ox 99% ; hb 15:59 BP 121 / 70; Pulse 82; Resp 15; Pulse Ox 98% ; bp Jason Coma Score: 15:40 Eye Response: spontaneous(4). Verbal Response: oriented(5). Motor Response: obeys [facility] commands(6). Total: 15. MDM: 12:10 Patient medically screened. samm 13:48 Differential diagnosis: Anemia CHF exacerbation, Chronic Obstructive Pulmonary Disease samm Myocardial Infarction Pneumothorax pulmonary edema, Pulmonary Embolism reactive airway disease, Blunt Chest Trauma Chest Wall Contusion Chest Wall Injury Pleural Effusion Pneumomediastinum Pneumopericardium Pneumothorax Pulmonary Contusion. Antibiotic administration: Not indicated. Differential Diagnosis: cardiac arrhythmia, cerebrovascular accident, drug effect, seizure, sepsis, vasovagal episode. Immunization status:. Data reviewed: vital signs, nurses notes, EMS record, lab test result(s), EKG, radiologic studies, CT scan, plain films. Consideration of Admission/Observation Patient was admitted/placed on observation. I considered the following discharge prescriptions or medication management in the emergency department Medications were administered in the Emergency Department. See MAR. Test considered but Not performed: MRI: MRI BRAIN CVA ROSHNI. Care significantly affected by the following chronic conditions: Hypertension, Chronic Obstructive Pulmonary Disease, DVT, BIPOLAR, SUBSTANCE ABUSE , ESRD ON ND. 15:41 ED course: dr rangel , ok to nm , will coordinate dialysis tomorrow with the nursing [facility]. 05/29 12:13 Order name: Basic Metabolic Panel; Complete Time: 14:26 [facility] 05/29 12:13 Order name: LFT's; Complete Time: 14:26 [facility] 05/29 12:13 Order name: Magnesium; Complete Time: 14:26 samm 05/29 12:13 Order name: NT PRO-BNP; Complete Time: 14:26 [facility] 05/29 12:13 Order name: PT-INR; Complete Time: 13:40 [facility] 05/29 12:13 Order name: Troponin HS; Complete Time: 14:26 [facility] 05/29 12:13 Order name: XRAY Chest (1 view); Complete Time: 13:40 [facility] 05/29 12:13 Order name: EKG; Complete Time: 12:14 [facility] 05/29 12:13 Order name: Cardiac monitoring; Complete Time: 13:27 [facility] 05/29 12:13 Order name: EKG - Nurse/Tech; Complete Time: 13:27 [facility] 05/29 12:13 Order name: IV Saline Lock; Complete Time: 13:06 [facility] 05/29 12:13 Order name: Labs collected and sent; Complete Time: 13:06 [facility] 05/29 12:13 Order name: O2 Per Protocol; Complete Time: 13:06 [facility] 05/29 12:13 Order name: O2 Sat Monitoring; Complete Time: 13:06 [facility] 05/29 12:13 Order name: CT Head C Spine; Complete Time: 13:40 [facility] 05/29 12:13 Order name: CT Facial Bones W/O Con; Complete Time: 13:40 [facility] 05/29 12:13 Order name: Ice pack; Complete Time: 13:07 [facility] 05/29 13:18 Order name: Labs - recollect needed: recollect cbc; Complete Time: 14:59 05/29 13:41 Order name: CT Chest Abdomen Pelvis W/O Contrast; Complete Time: 14:26 [facility] 05/29 13:45 Order name: SARS-COV-2 Antigen Rapid; Complete Time: 14:26 [facility] EC:46 Rate is 81 beats/min. Rhythm is regular. QRS [place] is Normal. [place] interval is normal. QRS samm interval is normal. QT interval is normal. No Q waves. T waves are Normal. Clinical impression: NSR w/ Non-specific ST/T Changes and No evidence of ischemia. Interpreted by me. Reviewed by me. Administered Medications: 13:26 Drug: NS 0.9% 1000 ml Route: IV; Rate: 75 ml/hr; Site: right antecubital; hb 15:56 Follow up: IV Status: Completed infusion bp 13:27 Drug: Ancef (cefazolin) 1 grams Route: IVPB; Site: right antecubital; hb 15:56 Follow up: IV Status: Completed infusion; IV Intake: 100ml bp 13:40 Drug: fentaNYL (PF) 25 mcg Route: IVP; Site: right hand; bp 15:56 Follow up: Response: No adverse reaction bp Disposition Summary: 05/29/22 15:38 Discharge Ordered Location: Home samm Problem: new(05/29/22 15:38) samm Symptoms: have improved(05/29/22 15:38) samm Condition: Stable(05/29/22 15:38) samm Diagnosis - Fall on same level, unspecified samm - Syncope Near(05/29/22 15:38) samm - End stage renal disease - on hd m, w,f(05/29/22 15:38) samm - Pneumothorax, unspecified - less than 10%, right with sign subcutaneous samm emphysema(05/29/22 15:38) Followup: samm - With: Private Physician - When: 2 - 3 days - Reason: Recheck today's complaints, Continuance of care, Re-evaluation by your physician Followup: samm - With: Zeus Rangel DO - When: 2 - 3 days - Reason: Recheck today's complaints, Continuance of care, Re-evaluation by your physician Discharge Instructions: - Discharge Summary Sheet samm - Fall Prevention in the Home, Adult samm - Near-Syncope samm - Pneumothorax samm - Syncope samm - Weakness samm - Near-Syncope, [id number] samm - Syncope, [id number] samm - Fall Prevention in the Home, Adult, Ygol-ke-Efnm samm - Weakness, Wpvm-mi-[id number] samm - Fall Prevention in Hospitals, Adult samm Forms: - Medication Reconciliation Form samm - Thank You Letter samm - Antibiotic Education samm - Prescription Opioid Use samm Prescriptions: - Tylenol 325 mg Oral Tablet - take 2 tablets by ORAL route every 6 hours as needed; 1 bottle; Refills: 0, samm Product Selection Permitted Signatures: Dispatcher [employer] EDMS Shilpa Arthur Corey, MD MD cha Baxter, Heather, OLIVIA RN Nathen Laguerre RN RN bp Corrections: (The following items were deleted from the chart) 14:01 13:54 TO [facility], TELE samm samm 15:35 13:54 [facility]-System samm samm 15:35 13:54 Higher level of care samm samm 15:35 13:54 Fair samm samm 15:35 13:54 new samm samm 15:35 13:54 have improved samm samm 15:35 13:54 Syncope Near samm samm 15:35 13:54 Pneumothorax, unspecified - RIGHT, SMALL samm samm 15:35 13:54 End stage renal disease - ON HD M,W, FRI samm samm 15:35 14:01 TO [facility], TELE samm samm 15:35 14:01 Contusion of nose, initial encounter samm samm 15:35 14:01 Epistaxis - RESOLVED samm samm
--- NOTE | 2022-05-29 13:55 | ER ---
Nurse's Notes [facility] Name: Velasquez Cruz Age: 47 yrs Sex: Male : 1975 Arrival Date: 05/29/2022 Time: 11:54 Bed 7 Private MD: Diagnosis: Fall on same level, unspecified;Syncope Near;End stage renal disease-on hd m, w,f;Pneumothorax, unspecified-less than 10%, right with sign subcutaneous emphysema Presentation: 05/29 11:54 Chief complaint: EMS states: SYNCOPAL FALL AT DIALYSIS AFTER USING BATHROOM. bp Coronavirus screen: At this time, the client does not indicate any symptoms associated with coronavirus-19. Ebola Screen: No symptoms or risks identified at this time. Initial Sepsis Screen: Does the patient meet any 2 criteria? No. Patient's initial sepsis screen is negative. Does the patient have a suspected source of infection? No. Patient's initial sepsis screen is negative. Risk Assessment: Do you want to hurt yourself or someone else? Patient reports no desire to harm self or others. Onset of symptoms was May 29, 2022 at 11:30. 11:54 Method Of Arrival: EMS: [facility] bp 11:54 Acuity: HEAVEN 3 bp Triage Assessment: 11:55 General: Appears in no apparent distress. Behavior is calm, cooperative, appropriate bp for age. Pain: Denies pain. EENT: No deficits noted. Neuro: Reports a syncopal episode. Cardiovascular: Rhythm is sinus rhythm. Respiratory: No deficits noted. GI: No signs and/or symptoms were reported involving the gastrointestinal system. : No signs and/or symptoms were reported regarding the genitourinary system. Derm: No deficits noted. Musculoskeletal: No deficits noted. Historical: - Allergies: 11:55 No Known Allergies; bp - PMHx: 11:55 Anemia; Anxiety; Bipolar disorder; Cocaine Abuse; COPD; DVT; HD MWF; HEART FAILURE; bp Hypertensive disorder; - Immunization history:: Adult Immunizations up to date. - Social history:: Smoking status: Patient denies any tobacco usage or history of. Screenin:57 [facility] ED Fall Risk Assessment (Adult) History of falling in the last 3 months, bp including since admission No falls in past 3 months (0 pts). Abuse screen: Denies threats or abuse. Denies injuries from another. Nutritional screening: No deficits noted. Tuberculosis screening: No symptoms or risk factors identified. Assessment: 11:57 General: SEE TRIAGE NOTE. bp 14:59 Reassessment: Patient appears in no apparent distress at this time. Patient and/or hb family updated on plan of care and expected duration. Pain level reassessed. Patient is alert, oriented x 3, equal unlabored respirations, skin warm/dry/pink. 15:54 Reassessment: TRANSPORT PENDING FOR DC. Neuro: Level of Consciousness is awake, alert, bp obeys commands, Oriented to Appropriate for age. Cardiovascular: Rhythm is sinus rhythm. Vital Signs: 11:54 BP 98 / 40; Pulse 85; Resp 17; bp 13:05 BP 101 / 56; Pulse 77; Resp 15; Temp 98; Pulse Ox 98% ; bp 14:59 BP 91 / 59; Pulse 79; Resp 17; Pulse Ox 99% ; hb 15:59 BP 121 / 70; Pulse 82; Resp 15; Pulse Ox 98% ; bp Jason Coma Score: 15:40 Eye Response: spontaneous(4). Verbal Response: oriented(5). Motor Response: obeys samm commands(6). Total: 15. ED Course: 11:54 Patient arrived in ED. bp 11:55 Triage completed. bp 11:55 Arm band placed on. bp 11:57 Patient has correct armband on for positive identification. Bed in low position. Call bp light in reach. Side rails up X2. 12:10 Abelino Nuñez MD is Attending Physician. samm 12:28 Nathen Page, OLIVIA is Primary Nurse. bp 12:29 CT Head C Spine In Process Unspecified. EDMS 12:30 CT Facial Bones W/O Con In Process Unspecified. EDMS 12:36 XRAY Chest (1 view) In Process Unspecified. EDMS 13:05 Inserted saline lock: 22 gauge in right hand, using aseptic technique. Blood collected. bp 13:[address] Nuñez to [facility]. bd 14:08 CT Chest Abdomen Pelvis W/O Contrast In Process Unspecified. EDMS 15:23 pt denied due to no beds at any [facility] campus. bd 15:36 Zeus Munoz DO is Referral Physician. samm 15:55 No provider procedures requiring assistance completed. IV discontinued, intact, bp bleeding controlled, No redness/swelling at site. Pressure dressing applied. Administered Medications: 13:26 Drug: NS 0.9% 1000 ml Route: IV; Rate: 75 ml/hr; Site: right antecubital; hb 15:56 Follow up: IV Status: Completed infusion bp 13:27 Drug: Ancef (cefazolin) 1 grams Route: IVPB; Site: right antecubital; hb 15:56 Follow up: IV Status: Completed infusion; IV Intake: 100ml bp 13:40 Drug: fentaNYL (PF) 25 mcg Route: IVP; Site: right hand; bp 15:56 Follow up: Response: No adverse reaction bp Medication: 11:57 VIS not applicable for this client. bp Intake: 15:56 IV: 100ml; Total: 100ml. bp Outcome: 13:54 ER care complete, transfer ordered by . samm 15:38 Discharge ordered by . [facility] 15:55 Discharged to home via ambulance. bp 15:55 Condition: stable 15:55 Discharge instructions given to patient, Instructed on discharge instructions, follow up and referral plans. medication usage, Demonstrated understanding of instructions, follow-up care, medications, Prescriptions given X 1. 16:56 Patient left the ED. bp Signatures: Dispatcher [employer] EDMS Shilpa Arthur Corey, MD MD cha Baxter, Heather, RN RN Nathen Laguerre RN RN bp Corrections: (The following items were deleted from the chart) 13:07 13:05 BP 101 / 56; Pulse 77bpm; Resp 15bpm; Pulse Ox 98%; bp bp
--- NOTE | 2022-05-29 14:12 | RAD REPORT ---
EXAM DESCRIPTION: CT - Chest Abd Pelvis Wo Con - 05/29/2022 2:03 pm CLINICAL HISTORY: Chest and abdomen pain. TRAUMA COMPARISON: Chest Abd Pelvis Wo Con dated 05/08/2022 TECHNIQUE: A limited noncontrast study was submitted. All CT scans are performed using dose optimization technique as appropriate and may include automated exposure control or mA/KV adjustment according to patient size. FINDINGS: There is significant subcutaneous emphysema around the right shoulder right anterior and p osterior chest and right flank.The air in the soft tissues extends to the level of the right lower qu adrant.There is a small amount of right pleural fluid.A very small pneumothorax in the right apex jay sures less than 5%.Aortic arch stent. Old left-sided rib fractures with hardware in place. The liver, pancreas, adrenal glands are within normal limits. Absent spleen. Atrophic kidneys with sm all cysts. No bowel obstruction, free air, free fluid or abscess. Normal appendix. Moderate stool throughout the colon. No pathologic lymphadenopathy in the abdomen or pelvis. No worrisome osseous finding. IMPRESSION: Significant right-sided subcutaneous emphysema. Minimal right apex pneumothorax. Very small amount of right pleural fluid also present.. Moderate retained stool throughout the colon.
[2022-05-29 14:25] LABS: SARS-CoV-2 Antigen Rapid Res Negative (Negative)
[2022-05-29] MEDS ORDERED: FOLIC ACID 5 MG/ML VIAL ONE (16:04)
[2022-05-29 17:58] VITALS: TEMP 98
[2022-05-29 17:59] VITALS: BP 121/70; O2SAT 98
--- NOTE | 2022-05-30 17:28 | EKG ---
Test Date: 2022-05-29 Test Time: 13:21:22 Sample Collector: HB MEASUREMENT RESULTS: Intervals: Rate: 81 OK: 174 QRSD: 82 QT: 380 QTc: 441 [place]: P: 65 OK: 174 QRS: 11 T: 66 INTERPRETIVE STATEMENTS: Normal sinus rhythm Possible Left atrial enlargement Anteroseptal infarct, age undetermined Abnormal ECG Compared to ECG 12/07/2021 11:32:11 Sinus bradycardia no longer present Left ventricular hypertrophy no longer present Myocardial infarct finding still present Electronically Signed On 05-30-22 17:26:20 [employer]EC[employer] by Toni Ríos
== END 2022-05-29 16:56 | disposition home or self-care (01) ==
LOC: ER 11:53
DX: R55 Syncope and collapse (principal); J93.9 Pneumothorax, unspecified; W18.30XA Fall on same level, unspecified, initial encounter; N18.6 End stage renal disease; Z99.2 Dependence on renal dialysis; Z20.822 Contact with and (suspected) exposure to COVID-19
CPT/HCPCS: 80048; 36415; 83735; 85610; 80076; 84484; 83880; 70450; 71250; 72125; 70486; 76377; 74176; 71045; 87811; J3010; J7030 ×2; J0690; 93005

== ENCOUNTER 2022-05-31 17:10 | Inpatient (IN) | payer OTHER ==
[2022-05-31] MEDS ORDERED: PANTOPRAZOLE 40 MG INJ ONE (17:19)
[2022-05-31] MEDS ORDERED: ONDANSETRON 4 MG/2 ML VIAL ONE (17:19)
[2022-05-31 17:33] LABS: MCV 82.6 fL (80-100); MPV 7.3 fL (7.6-11.3); RBC Red Blood Cell Count 2.67 M/uL (4.33-5.43)
--- OUTSIDE RECORDS SUMMARY | 2022-05-31 17:35 | XMS REPORT | Continuity of Care Document ---
:1975 Author Organization [facility] t Address [address] [place] [address] Care Team Providers Name Role Phone UNKNOWN, [...] Unavailable Conrad LINDC, Aubree Beckett Attending Clinician [phone] Abbi ELLIOTT, Bunny Attending Clinician Reshma ELLIOTT, Miguel Ángel Wilson Attending Clinician Doctor Unassigned, Comfort Attending Clinician Unavailable Phong BAKER, Emily Attending Clinician Unavailable Ko ELLIOTT, Jorje Vasquez Attending Clinician Medardo ELLIOTT, Alma Luke Attending Clinician Alex ELLIOTT, Rakel Mcguire Attending Clinician Evans ELLIOTT, Nakul Pedro Attending Clinician [phone] Yaniv ELLIOTT, Virgilio Hill Attending Clinician Meghana SALCIDO, Dallas Rodriguez Attending Clinician [phone] Mara Padron Attending Clinician [phone] Robert Mccarthy Attending Clinician [phone] RUBEN_NOE Attending Clinician Unavailable June Attending Clinician [phone] [email or web address]_[email or web address]_G Attending Clinician Unavailable KHADAR CALHOUN Attending Clinician Unavailable DR KACEY GAYLE Attending Clinician Unavailable DR KHADAR CALHOUN Attending Clinician Unavailable DR ELAINE MCWILLIAMS Attending Clinician Unavailable JEAN-CLAUDE COHEN Admitting Clinician Unavailable Jean-Claude Cohen MD Admitting Clinician GC_BAHC_Vito_Gume Admitting Clinician Unavailable RAKEL JOHNSON Admitting Clinician Unavailable MD ALMA WHITMAN Admitting Clinician Unavailable BOB Admitting Clinician Unavailable GC_BAHC_Spangler_G Admitting Clinician Unavailable KHADAR CALHOUN Admitting Clinician Unavailable DR KACEY GAYLE Admitting Clinician Unavailable DR KHADAR CALHOUN Admitting Clinician Unavailable DR ELAINE MCWILLIAMS Admitting Clinician Unavailable Payers Payer Name Policy Type Policy Number Effective Date Expiration Date S tiffany [facility] MEDICARE [id number] 2021 ADVANTAGE PLAN 00:00:00 [facility] [id number] 2019 [facility] [place] - 00:00:00 [facility] - [id number] 2021 COMMUNITY CARE - 00:00:00 [facility] - 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 (MEDICAID HMO) Problems Condition Condition Condition Status Onset Resolution Last Treating Co mments Source Name Details Category Date Date Treatment Clinician Date Hemothorax Hemothorax Disease Active U nivers on right on right 2-20 ity of 00:00: 00 Medical Branch Lung Lung Disease Recurre Univers entrapment entrapment nce 2-20 it y of 00:00: Medical Branch History of History of Problem Active P rivia repair of Repair of 2-15 Medi ellyn thoracic Thoracic 00:00: aortic Aortic 00 aneurysm Aneurysm ESRD (end ESRD (end Disease Active Uni vers stage stage 2-09 ity of renal renal 00:00: [place] disease) disease) 00 Medica l Branch Hyperkalem Hyperkalem Disease Active U nivers ia ia 2-09 ity of 00:00: [place] 00 Medical Branch Bipolar I Bipolar I [...] St occlusion occlusion 1-19 Luke s 00:00: [place] [address] Center AV fistula AV fistula Disease Active M ethodi occlusion occlusion 9-13 st 00:00: [facility]osp[facility] 00 l Pulmonary Pulmonary Disease Active Uni vers edema edema 1-21 ity of 00:00: [place] [address] Medical Branch Obesity Obesity Disease Active Univers (BMI (BMI 1-21 ity of 30-39.9) 30-39.9) 00:00: [place] [address] Medical Branch Respirator Respirator Disease Active U [...] NE INGREDI 3-03 ity of 00:00: [place] 00 Medical Branch Nifedipi Allergy Active Privia ne to 3-03 Medical substanc 00:00: e 00 NO KNOWN Drug Active Univers ALLERGIE Class ity of [facility] Family History Family Member Diagnosis Comments Start Date Stop Date Source Natural father Unremarkable [facility] Natural father Heart [facility] Natural father Hypertension Universi ty of [facility] Natural sister Unremarkable [facility] Natural mother Other - see comments [facility] Other Other - see comments Univ ersity of [facility] Social History Social Habit Start Date Stop Date Quantity Comments Source History SDOH Social Unive rsity of [facility] Med ical Together Branch History SDOH Social Unive rsity of [facility] Medical Branch History SDOH Social Unive rsity of [facility] Medical Membership Branch History SDOH Social Unive rsity of [facility] Medical Meetings Branch History of tobacco Cigarette Smoker [facility] History SDOH 2022-05-13 2022-05-13 2 University o f Financial 00:00:00 00:00:00 [place] [facility] History SDOH Food 2022-05-13 2022-05-13 1 Univers ity of Worry 00:00:00 00:00:00 [place] [facility] History SDOH Food 2022-05-13 2022-05-13 2 Univers ity of Scarcity 00:00:00 00:00:00 [place] [facility] History SDOH 2022-05-13 2022-05-13 2 University o f Transport Med 00:00:00 00:00:00 [place] Medic al Branch History SDOH 2022-05-13 2022-05-13 2 University o f Transport Non-Med 00:00:00 00:00:00 [place] M edical Branch History SDOH 2022-05-10 2022-05-10 1 University o f Alcohol Frequency 00:00:00 00:00:00 [place] M edical Branch History SDOH 2022-05-10 2022-05-10 0 University o f Alcohol Std Drinks 00:00:00 00:00:00 [place] [facility] History SDOH 2022-05-10 2022-05-10 1 University o f Alcohol Binge 00:00:00 00:00:00 [place] Medic al Branch History SDOH Social 2022-05-10 2022-05-10 5 Unive rsity of Connections Phone 00:00:00 00:00:00 [place] M edical Branch History SDOH Social 2022-05-10 2022-05-10 5 Unive rsity of Connections Living 00:00:00 00:00:00 [place] [facility] History SDOH 2022-05-10 2022-05-10 0 University o f Physical Activity 00:00:00 00:00:00 [facility] edical DPW Branch History SDWY 2022-05-10 2022-05-10 0 University o f Physical Activity 00:00:00 00:00:00 [facility] edical MPS Branch Exposure to 2022-04-29 2022-05-09 Not sure University of SARS-CoV-2 (event) 00:00:00 21:56:00 [place] [facility] Tobacco use and 2021-12-25 2021-12-25 User of Universit y of exposure 00:00:00 00:00:00 smokeless [place] Medical tobacco Branch Alcohol intake 2021-12-18 2021-12-18 Ex-drinker [employer] 00:00:00 00:00:00 (finding) Hospital Sex Assigned At [birth year] [employer] 00:00:00 00:00:00 Hospital Smoking Status Start Date Stop Date Source Heavy Tobacco Smoker Jimmy ragland Smokes tobacco daily 2022-05-09 00:00:00 Univers ity of [place] [facility] Medications Ordered Filled Start Stop [...] 25 daily. Medical Branch acetaminoph 2022- Yes [id number] 650mg Take 2 Univers en 325 mg 2-25 06-15 tablets by ity of tablet 00:00: 04:59 mouth [place] 00 :00 every 6 Medical (formerly [facility]) Branch hours for 14 days. polyethylen 2022- Yes [id number] 17g Take 1 Univers e glycol 2-25 06-15 Packet by ity o f 3350 17 00:00: 04:59 mouth in [place] gram powder 00 :00 the Medical morning Branch for 14 days. acetaminoph 2022- Yes [id number] 650mg Take 2 Univers en 325 mg 2-25 06-15 tablets by ity of tablet 00:00: 04:59 mouth [place] 00 :00 every 6 Medical (formerly [facility]) Branch hours for 14 days. polyethylen 2022- Yes [id number] 17g Take 1 Univers e glycol 2-28 -15 Packet by ity o f 3350 17 00:00: 04:59 mouth in [place] gram powder 00 :00 the Medical morning Branch for 14 days. gabapentin 2022- Yes [id number] 200mg Take 2 Univers 100 mg 2-28 03-08 capsules ity of capsule 00:00: 05:59 by mouth [place] 00 :00 in the Medical morning Branch and 2 capsules at noon and 2 capsules in the evening. Do all this for 7 days. acetaminoph 2022- Yes [id number] 650mg Take 2 Univers en 325 mg 2-28 03-08 tablets by ity of tablet 00:00: 05:59 mouth [place] 00 :00 every 6 Medical (six) Branch hours as needed (pain) for up to 7 days. gabapentin 2022- Yes [id number] 200mg Take 2 Univers 100 mg 05-28-08 capsules ity of capsule 00:00: 05:59 by mouth [place] 00 :00 in the Medical morning Branch and 2 capsules at noon and 2 capsules in the evening. Do all this for 7 days. acetaminoph 2022- Yes [id number] 650mg Take 2 Univers en 325 mg 05-28-08 tablets by ity of tablet 00:00: 05:59 mouth [place] 00 :00 every 6 Medical (six) Branch hours as needed (pain) for up to 7 days. heparin Yes 2000U PRN - SEE Univ ers 1,000 05-27 INSTRUCTIO ity of unit/mL (10 20:25: NS, [...] ENEMA) 00 :00 dose, On Medical (COMPOUNDED [facility] ) Enem 225 05/25/22 at mL 2000, Routine heparin 2022- No 2000U 2,000 Univers 1,000 2-25 02-25 Units, ity of unit/mL 23:00: 22:05 Slow IV [place] injection 00 :00 Push, Medical 2,000 Units ONCE, 1 Branc h dose, On [facility] 05/25/22 at 1700, Routine NaCl 0.9% 2022- No 500mL at 999 [facility] ers (NS) bolus 2-25 02-26 mL/hr, 500 it y of infusion 22:45: 01:33 mL, IV [place] 500 mL 00 :00 Piggyback, Medical ONCE, 1 Branch dose, On [facility] 05/25/22 at 1645, STAT polyethylen Yes 17g 17 g, Unive rs e glycol 2-25 Oral, ity of 3350 powder 22:00: DAILY, [place] 17 g 00 First dose Medical on [facility] Branch 05/25/22 at 1600, Until Discontinu [...] [place] mL 00 :00 dose, On Medical [facility] Branch 05/25/22 at 0815, Routine heparin 0 Yes 2000U PRN - SEE Univ ers 1,000 -25 INSTRUCTIO ity of unit/mL (10 14:08: NS, [place] mL) - 36 Starting Medical dialysis on [facility] Branch catheter 05/25/22 at care 0808, [...] KIT) 32 Starting Medical injection 1 on [facility] Branch mg 05/25/22 at 0641, Until Discontinu ed, PHIL, Blood Glucose < or = 70 mg/dL and patient is NPO, unable to swallow or has mental changes. dextrose 50 2022-0 Yes 25mL 25 mL, Univ ers % in water 2-25 Slow IV ity of (D50W) 12:41: Push, PRN, [place] injection 32 Starting Medica l 25 mL on [facility] Branch 05/25/22 at 0641, Until Discontinu ed, PHIL, [...] dose [place] tablet 650 00 on [facility] Medical 05/23/22 at Branch 1200, Until Discontinu ed, Routine acetaminoph 2023-0 Yes 650mg 650 mg, Un irma en -23 Oral, Q6H, ity of (TYLENOL) 18:00: First dose [place] tablet 650 00 on [facility] Medical mg 05/23/22 at Branch 1200, Until Discontinu ed, Routine acetaminoph 2023-0 Yes 650mg 650 mg, Un irma en -23 Oral, Q6H, ity of (TYLENOL) 18:00: First dose [place] tablet 650 00 on [facility] Medical 05/23/22 at Branch 1200, Until Discontinu ed, Routine sennosides 2023-0 Yes 8.6mg 8.6 mg, Uni vers (SENOKOT) 2-23 Oral, ity of tablet 8.6 15:00: DAILY, [place] mg 00 First dose Medical on [facility] 05/23/22 at 0900, Until Discontinu ed, Routine sennosides 2023-0 Yes 8.6mg 8.6 mg, Uni vers (SENOKOT) 2-23 Oral, ity of tablet 8.6 15:00: DAILY, [place] mg 00 First dose Medical on [facility] 05/23/22 at 0900, Until Discontinu ed, Routine sennosides 2023-0 Yes 8.6mg 8.6 mg, Uni vers (SENOKOT) 2-23 Oral, ity of tablet 8.6 15:00: DAILY, [place] mg 00 First dose Medical on [facility] 05/23/22 at 0900, Until Discontinu ed, Routine [...] heparin 2022-0 Yes 2000U PRN - SEE Univ ers 1,000 05-23 INSTRUCTIO ity of unit/mL [...]
heparin 2022-0 Yes 2000U PRN - SEE Univ ers 1,000 05-23 INSTRUCTIO ity of unit/mL [...]
heparin 2022-0 Yes 2000U PRN - SEE Univ ers 1,000 05-23 INSTRUCTIO ity of unit/mL [...] of (fixed 13:15: Dose: 1.5 [place] dose) CORPORATE LIBRARIAN 00 mg
Lock Medi ellyn injection out Branch Interval: 6 Minutes
Basal Rate: 0 mg/hr<BR&g t;Four Hour Dose Limit: 32 mg
Intr avenous, 30 mL, CONTINUOUS , Starting on [place] 05/23/22 at 0715, Until Discontinu ed morpHINE 30 Yes Patient Uni vers mg/30 mL 05-23 Bolus ity of (fixed 13:15: Dose: 1.5 [place] dose) CORPORATE LIBRARIAN 00 mg
Lock Medi ellyn injection out Branch Interval: 6 Minutes
Basal Rate: 0 mg/hr<BR&g t;Four Hour Dose Limit: 32 mg
Intr avenous, 30 mL, CONTINUOUS , Starting on [place] 05/23/22 at 0715, Until Discontinu ed morpHINE 30 0 2022- No Patient Un irma mg/30 mL 05-23 Bolus ity of (fixed 13:15: 13:33 Dose: 1.5 [place] dose) CORPORATE LIBRARIAN 00 :11 mg
Lock Medi ellyn injection [...] Univers en ADULT 05-23 IV ity of ([facility]) 04:00: 13:06 Infusion, [place] injection 00 [...] dose [place] mg 00 on Fri05/22/22 at [place] 2000, Until Discontinu ed, Routine gabapentin 2023-0 Yes 200mg 200 mg, Uni vers (NEURONTIN) 2-23 Oral, TID, it y of capsule 200 02:00: First dose [place] mg 00 on Fri05/22/22 at [place] 2000, Until Discontinu ed, Routine gabapentin 2023-0 Yes 200mg 200 mg, Uni vers (NEURONTIN) 2-23 Oral, TID, it y of capsule 200 02:00: First dose [place] mg 00 on Fri05/22/22 at [place] 2000, Until Discontinu ed, Routine methocarbam 2023-0 Yes 500mg 500 mg, Un irma oL 2-22 Oral, QID, ity of (ROBAXIN) 22:00: First dose [place] tablet 500 00 on Fri Medical mg 05/22/22 at [place] 1600, Until Discontinu ed, Routine methocarbam 2023-0 [...] Yes .1mg 0.1 mg, Univer s (NARCAN) - Slow IV ity of injection 20:00: Push, [...] Routine lactated 2022- No 1000mL at 75 [facility] rs ringers IV 05-22 mL/hr, ity of infusion 20:00: 23:02 1,000 mL, [place] as 1,000 mL 00 :50 IV Medical Infusion, Branch CONTINUOUS , Starting on Fri05/22/22 at 1400, Until Fri05/22/22 at 1702, Routine, PACU bupivacaine 2022- No PRN, [facility] rs (preserv 05-22 Starting ity of free) 17:16: 19:46 on Fri (SENSORCAIN 00 :18 05/22/22 at [facility]) 0.25 1116, Branch % (2.5 Intra-op mg/mL) 20 mL, bupivacaine liposome (PF) (EXPAREL (PF)) 1.3 % (13.3 mg/mL) 266 mg bupivacaine 2022- No PRN, [facility] rs (preserv 05-22 Starting ity of free) 17:16: 19:46 on Fri (SENSORCAIN 00 :18 05/22/22 at [facility]) 0.25 1116, Branch % (2.5 Intra-op mg/mL) 20 mL, bupivacaine liposome (PF) (EXPAREL (PF)) 1.3 % (13.3 mg/mL) 266 mg HYDROcodone 2022- No 1{tbl} 1 tablet, Univers -acetaminop 05-21 Oral, ity of hen (NORCO 16:30: 23:02 Q6HPRN, [place] as 5) 5-325 mg 17 :50 Starting Medi ellyn tablet 1 on [facility] Branch tablet 05/21/22 at 1030, Until 05/22/22 at 1702, Routine, Pain (scale 4-6), Pain (scale 7-10) NaCl 0.9% 2022- No 5mL 5 mL, Slow U nivers (NS) 05-21 IV Push, ity of injection 5 13:15: 13:15 ONCE, 1 [place] mL 00 :00 dose, On Medical Tue Branch 05/21/22 at 0715, Routine heparin Yes 2000U PRN - SEE [facility] ers 1,000 - INSTRUCTIO ity of unit/mL ( 13:09: NS, [place] mL) - Starting Medical dialysis on [facility] Branch catheter 05/21/22 at care 0709, Until Discontinu ed, Routine
For Priming of Ports:&nbs p; &n bsp; After initial saline flush, prime each port with heparin according to the priming volume listed on each catheter port for catheter lock.
heparin Yes 2000U PRN - SEE [facility] ers 1,000 - INSTRUCTIO ity of unit/mL (01 10:09: NS, [place] mL) - Starting Medical dialysis on [facility] Branch catheter 05/21/22 at care 0709, Until Discontinu ed, Routine
For Priming of Ports:&nbs p; &n bsp; After initial saline flush, prime each port with heparin according to the priming volume listed on each catheter port for catheter lock.
heparin 0 Yes 2000U PRN - SEE [facility] ers 1,000 - INSTRUCTIO ity of unit/mL ( 13:09: NS, [place] mL) - Starting Medical dialysis on [facility] Branch catheter 05/21/22 at care 0709, Until [...] Starting Medical on Fri05/20/22 at 2101, Until 05/22/22 at 1702, Routine, Pain (scale 4-6), Pain (scale 7-10) iopamidol 2022- No [id number] 70mL 70 mL, Univers (ISOVUE 05-20 02-20 Intravenou ity o f 370-500 mL) 17:45: 17:25 s, ONCE, 1 [place] injection 00 :00 dose, On Medica l 70 mL Fri [place] 05/20/22 at 1145, Routine lactated 2022- No 250mL at 999 Unive rs ringers IV 2-20 02-20 mL/hr, 250 it y of infusion 07:15: 11:23 mL, [place] 250 mL 00 :00 Intravenou Medical s, ONCE, 1 Branch dose, On Fri05/20/22 at 0115, Routine midodrine Yes 2.5mg 2.5 mg, Univ ers (PROAMATINE 2-20 Oral, TID, it y of ) tablet 05:45: First dose [place] 2.5 mg 00 on [facility] 05/19/22 at Branch 2345, Until Discontinu ed, Routine midodrine Yes 2.5mg 2.5 mg, Univ ers (PROAMATINE 2-20 Oral, TID, it y of ) tablet 05:45: First dose [place] 2.5 mg 00 on [facility] 05/19/22 at Branch 2345, Until Discontinu ed, Routine midodrine Yes 2.5mg 2.5 mg, Univ ers (PROAMATINE 2-20 Oral, TID, it y of ) tablet 05:45: First dose [place] as 2.5 mg 00 on [facility] 05/19/22 at Branch 2345, Until Discontinu ed, Routine NaCl 0.9% 2022- No 250mL at 999 Univ ers (NS) bolus 2-20 02-20 mL/hr, 250 it y of infusion 01:45: 03:42 mL, IV [place] 250 mL 00 :00 Piggyback, Medical ONCE, 1 Branch dose, On [place] 05/19/22 at 1945, STAT traMADoL No 25mg 25 mg, Univer s (ULTRAM) 05-19 Oral, ity of tablet 25 22:00: 21:58 ONCE, 1 [place] mg 00 :00 dose, On Medical [facility] 05/19/22 at 1600, Routine lidocaine 2022- No 1{patch 1 Patch, Univers (LIDODERM) 05-19 } Topical, ity of 5 % (700 20:30: 08:05 Administer [place] mg/patch) 00 :00 over 12 Medical patch 1 Hours, Branch Patch ONCE, 1 dose, On [place] 05/19/22 at 1430, Routine heparin 2022-0 Yes 5000U 5,000 Univers (porcine) 2-19 Units, ity of injection 02:00: Subcutaneo [place] 5,000 Units 00 us, Q12H, Med ical First dose Branch on [facility] 05/18/22 at 1999, Until Discontinu ed, Routine heparin 2022-0 Yes 5000U 5,000 Univers (porcine) 2-19 Units, ity of injection 02:00: Subcutaneo [place] 5,000 Units 00 us, Q12H, Med ical First dose Branch on [facility] 05/18/22 at 2000, Until Discontinu ed, Routine heparin 2022-0 Yes 5000U 5,000 Univers (porcine) 2-19 Units, ity of injection 02:00: Subcutaneo [place] 5,000 Units 00 us, Q12H, Med ical First dose Branch on [facility] 05/18/22 at 2000, Until Discontinu ed, Routine NaCl 0.9% 2022- No 5mL 5 mL, Slow U nivers (NS) 05-18 IV Push, ity of injection 5 21:45: 01:02 ONCE, 1 [place] mL 00 :00 dose, On Medical [facility] 05/18/22 at 1545, Routine heparin 2022-0 2022- No 2000U PRN - SEE Uni vers 1,000 05-18 INSTRUCTIO ity of unit/mL (10 21:30: 13:14 NS, [place] mL) - 47 :47 Starting Medical dialysis on [facility] Branch catheter 05/18/22 at care 1530, Until [...] mg 00 :02 First dose Medical (after [place] last modificati on) on Fri05/18/22 at 0815, Until Discontinu ed, Routine sevelamer 2022-0 Yes 1600mg 1,600 mg, U nivers (RENVELA) 2-17 Oral, TID ity o f tablet 14:00: MEALS, [place] 1,600 mg 00 First dose Medic al (after [place] last modificati on) on Fri05/17/22 at 0800, Until Discontinu ed sevelamer 2022-0 Yes 1600mg 1,600 mg, U nivers (RENVELA) 2-17 Oral, TID ity o f tablet 14:00: MEALS, [place] 1,600 mg 00 First dose Medic al (after [place] last modificati on) on Fri05/17/22 at 0800, Until Discontinu ed sevelamer 2022-0 Yes 1600mg 1,600 mg, U nivers (RENVELA) 2-17 Oral, TID ity o f tablet 14:00: MEALS, [place] 1,600 mg 00 First dose Medic al (after [place] last modificati on) on Fri05/17/22 at 0800, Until Discontinu ed amLODIPine 2022- No 5mg 5 mg, Unive rs (NORVASC) 05-17 Oral, Q24H ity of tablet 5 mg 12:00: 17:54 ABX, First [place] 00 :02 dose Medical (after [place] last modificati on) on Fri05/17/22 at 0600, Until Discontinu ed, Routine NaCl 0.9% 2022- No 5mL 5 mL, Slow U nivers (NS) 05-16 IV Push, ity of injection 5 21:45: 21:45 ONCE, 1 [place] mL 00 :00 dose, On Medical [place] [facility] 05/16/22 at 1545, Routine heparin 2022- No 2000U PRN - SEE Uni vers 1,000 05-16 INSTRUCTIO ity of unit/mL (10 21:34: 13:14 NS, [place] mL) - 41 :47 Starting Medical dialysis on [facility] Branch catheter 05/16/22 at care 1534, Until 05/21/22 at 0714, Routine
For Priming of Ports:&nbs p; &n bsp; After initial saline flush, prime each port with heparin according to the priming volume listed on each catheter port for catheter lock.
iopamidol 2022- No [id number] 100mL 100 mL, Univers (ISOVUE 05-16 Intravenou ity o f 370-500 mL) 15:52: 15:52 s, ONCE, 1 [place] injection 00 :00 dose, On Medica l 100 mL [facility] Branch 05/16/22 at 1015, Routine iopamidol 2022- No [id number] 100mL 100 mL, Univers (ISOVUE 05-16 Intravenou ity o f 300-500 mL) 01:00: 01:00 s, ONCE, 1 [place] injection 00 :00 dose, On Medica l 100 mL [facility] Branch 05/15/22 at 1900, Routine lidocaine 2022- [...] Fri Medical 05/15/22 at Branch 1639, Until Fri05/15/22 at 1724, Routine morpHINE (4 2022- No 4mg 4 mg, Slow Univers mg/mL) 05-14 IV Push, ity of injection 4 21:02: 23:14 Q6HPRN, [place] mg 13 :17 Starting Medical on [facility] Branch 05/14/22 at 1502, Until [place] 05/19/22 at 1714, Routine, Pain (scale 7-10) alteplase 2022- No [id number] 4mg 4 mg, U nivers (CATHFLO 05-14 INTRA-CATH ity of ACTIVASE) 16:45: 17:15 ETER, [place] injection 4 00 :00 ONCE, 1 Medic al mg dose, On Branch [facility] 05/14/22 at 1045, Routine heparin 2022- No 2000U PRN - SEE Uni vers 1,000 05-14 INSTRUCTIO ity of unit/mL (10 14:21: 13:14 NS, [place] mL) - 00 :47 Starting Medical dialysis on [facility] catheter 05/14/22 at care 0821, Until [facility] 05/21/22 at 0714, Routine
For Priming of [...] 05/13/22 at 0845, Routine iopamidol 2022- No [id number] 70mL 70 mL, Univers (ISOVUE 05-12 4100 Intravenou ity o f 370-500 mL) 15:25: 14:25 s, ONCE, 1 [place] injection 00 :00 dose, On Medica l 70 mL [facility] 05/12/22 at 0945, Routine HYDROcodone 2022- No 1{tbl} 1 tablet, Univers -acetaminop 2-11 02-20 Oral, ity of hen (NORCO) 23:40: 00:56 Q4HPRN, [place] 10-325 mg 13 :30 Starting Medica l tablet 1 on [facility] Branch tablet 05/11/22 at 1740, Until [...] - 06 :47 Starting Medical dialysis on [facility] catheter 05/11/22 at care 1347, Until 05/21/22 [...] Medical (after Branch last modificati on) on [facility] 05/11/22 at 1215, Until Discontinu ed, Routine lisinopriL 2022- No 5mg 5 mg, Unive rs (PRINIVIL,Z 05-11 Oral, ity of ESTRIL) 15:00: 13:54 DAILY, [place] tablet 5 mg 00 :22 First dose Me dical on [facility] Branch 05/11/22 at 0900, Until Discontinu ed, Routine atorvastati Yes 40mg 40 mg, Univ ers n (LIPITOR) 11 Enteral, ity of tablet 40 03:00: QHS, [...] 2022- No 1{tbl} 1 tablet, Univers en-codeine 05-10- Oral, ity of (TYLENOL 15:05: 21:02 [id number], [place] #3) 300-30 56 :36 Starting [...] at 0900, Until Discontinu ed, Routine docusate 0 Yes 100mg 100 mg, Unive rs (COLACE) [...] at 0900, Until Discontinu ed, Routine docusate 0 Yes 100mg 100 mg, Unive rs (COLACE) 2-10 Oral, ity of capsule 100 15:00: DAILY, [place] mg 00 First dose Medical on Fri [place] 05/10/22 at 0900, Until Discontinu ed, Routine aspirin 0 Yes 81mg 81 mg, Univers chewable 2-10 Oral, ity of tablet 81 15:00: DAILY, [place] mg 00 First dose Medical on Fri [place] 05/10/22 at 0900, Until Discontinu ed, Routine docusate 202- No 100mg 100 mg, Univ ers (COLACE) 05-10-24 Oral, ity of capsule 100 15:00: 21:56 DAILY, [place] as mg 00 :47 First dose Medical on Fri [place] 05/10/22 at 0900, Until Discontinu ed, Routine famotidine Yes 20mg 20 mg, Unive rs (PEPCID AC) 2-10 Oral, BID, it y of tablet 20 14:00: First dose [place] mg 00 on Fri [facility] 05/10/22 at Branch 0800, Until Discontinu ed, Routine famotidine 0 Yes 20mg 20 mg, Unive rs (PEPCID AC) 2-10 Oral, BID, it y of tablet 20 14:00: First dose [place] mg 00 on Fri [facility] 05/10/22 at Branch 0800, Until Discontinu ed, Routine famotidine 0 Yes 20mg 20 mg, Unive rs (PEPCID AC) 2-10 Oral, BID, it y of tablet 20 14:00: First dose [place] mg 00 on Fri [facility] 05/10/22 at Branch 0800, Until Discontinu ed, Routine sevelamer 2022- No 800mg 800 mg, Uni vers (RENVELA) 05-10-17 Oral, TID ity of tablet 800 14:00: 06:29 MEALS, [place] mg 00 :42 First dose Medical on [facility] 05/10/22 at 0800, Until Discontinu ed amLODIPine 0 2022- No 10mg 10 mg, Univ ers (NORVASC) 05-10-17 Oral, Q24H ity of tablet 10 12:00: [...] Until Discontinu ed, Routine heparin 2022- No [id number] 1500U 1,500 Uni vers 1,000 2-10 02-10 Units, ity of unit/mL 08:30: 08:39 Slow IV [place] injection 00 :00 Push, Medical 1,500 Units DIALYSIS Bran ch ONCE - PT ROOM, 1 dose, On Fri05/10/22 at 0230, Routine heparin 2022- No [id number] 1500U 1,500 Uni vers 1,000 2-10 02-10 Units, ity of unit/mL 07:15: 07:18 Slow IV [place] injection 00 :00 Push, Medical 1,500 Units DIALYSIS Bran ch ONCE - PT ROOM, 1 dose, On Fri05/10/22 at 0115, Routine acetaminoph 2022- No 1{tbl} 1 tablet, Univers en-codeine 2-10 Oral, ity of (TYLENOL 06:22: 15:06 [id number], [place] #3) 300-30 43 :07 Starting [...] [place] ([place]AY[place]ATE 00 :00 dose, On [facility] ) 15 Tess 05/09/22 Branch gram/60 mL at 1900, suspension STAT 30 g insulin 2022- No .1U/kg 7.8 Units Un irma regular 05-10 (0.1 ity of human 01:00: 01:21 Units/kg [place] (HUMULIN R) 00 :00 ?78 kg), [facility] injection IV Push, [place] 7.8 Units ONCE, 1 dose, On Tess 05/09/22 at 1900, PHIL
In dication for insulin: Hyperkalem ia- Please use the Insulin Protocol for Hyperkalem ia order set dextrose 50 2022- No 50mL 50 mL, Uni vers % in water 05-10 Slow IV ity o f (D50W) 01:00: 01:14 Push, [place] injection 00 :00 ONCE, 1 Medical 50 [...] KIT) 27 Starting Medical injection 1 on [facility] Branch 05/09/22 at 1847, Until Discontinu ed, PHIL, Blood Glucose < or = 70 mg/dL and patient is NPO, unable to swallow or has mental changes. dextrose 50 2023-0 Yes 25mL 25 mL, Univ ers % in water 2-10 Slow IV ity of (D50W) 00:47: Push, PRN, [place] injection 27 Starting Medica l 25 mL on [facility] 05/09/22 at 1847, Until Discontinu ed, PHIL, Blood Glucose < or = 70 mg/dL and patient is NPO, unable to swallow or has mental status changes. glucagon 2023-0 Yes 1mg 1 mg, Univers (GLUCAGEN 2-10 Intramuscu ity of DIAGNOSTIC 00:47: [place], [place]N, [place] KIT) 27 Starting Medical injection 1 on [facility] 05/09/22 at 1847, Until Discontinu ed, PHIL, Blood Glucose < or = 70 mg/dL and patient is NPO, unable to swallow or has mental changes. dextrose 50 2022-0 Yes 25mL 25 mL, Univ ers % in water 2-10 Slow IV ity of (D50W) 00:47: Push, PRN, [place] injection 27 Starting Medica l 25 mL on [facility] 05/09/22 at 1847, Until Discontinu ed, PHIL, Blood Glucose < or = 70 mg/dL and patient is NPO, unable to swallow or has mental status changes. glucagon 2023-0 Yes 1mg 1 mg, Univers (GLUCAGEN 2-10 Intramuscu ity of DIAGNOSTIC 00:47: [place]N, [place] KIT) 27 Starting Medical injection 1 on [facility] 05/09/22 at 1847, Until Discontinu ed, PHIL, Blood Glucose < or = 70 mg/dL and patient is NPO, unable to swallow or has mental changes. dextrose 50 2023-0 Yes 25mL 25 mL, Univ ers % in water 2-10 Slow IV ity of (D50W) 00:47: Push, PRN, [place] injection 27 Starting Medica l 25 mL on [facility] 05/09/22 at 1847, Until Discontinu [...] 20:45: mouth [place] 28 daily. Medical Branch melatonin 3 2021-03 Yes 3mg QD Take 3 mg M ethodi mg tablet 0-[address] 14:11: nightly as Hospita 15 needed for l sleep. albuterol 2021-03 Yes 2.5mg Q.71926860 Take 2.5 [facility] sulfate 0-[id number] (PROVENTIL) 14:11: 3D nebulizati [...] 15 l packet amino 2021-03 Yes 30mL Q.81861443 Take 30 mL [facility] acids/prote 0-25 [id number] [address] mouth [address] in 14:11: 3D [...] daily. Default OP ins ergocalcife 2021-03 Yes 19092O Q7D Take 1 Me thodi rol 0-25 [...] l mouth nightly. patiromer 2021-03 Yes 8.4g Q.11558559 Take 8.4 g [facility] calcium 0-25 [id number] mouth [address] sorbitex 14:11: 3W [...] for l sleep. albuterol 2021-03 Yes 2.5mg Q.64377863 Take 2.5 [facility] sulfate 0-[id number] (PROVENTIL) 14:11: 3D nebulizati [...] 15 l packet amino 2021-03 Yes 30mL Q.12429754 Take 30 mL [facility] acids/prote 0-25 [id number] by mouth [address] in 14:11: 3D [...] Hospit a 15 l acetaminoph 2021-03 Yes [id number] 1{tbl} Q.5D Take 1 M ethodi en-codeine [...] daily. Default OP ins ergocalcife 2021-03 Yes [id number] Q7D Take 1 Me thodi rol 0-25 [...] l mouth nightly. patiromer 2021-03 Yes 8.4g Q.38500500 Take 8.4 g [facility] calcium 0-25 [id number] [address] mouth [address] sorbitex 14:11: 3W (three) Hospit a ([place]) 15 times a l 8.4 gram week. powder in Every packet e,Tess,Sa packet t,to be given on non dialysis [...] for l sleep. albuterol 2021-03 Yes 2.5mg Q.84954802 Take 2.5 [facility] sulfate 0-[id number] (PROVENTIL) 14:11: 3D nebulizati [...] 15 l packet amino 2021-03 Yes 30mL Q.21033316 Take 30 mL [facility] acids/prote 0-25 [id number] by mouth [address] in 14:11: 3D [...] Hospit a 15 l acetaminoph 2021-03 Yes [id number] 1{tbl} Q.5D Take 1 M ethodi en-codeine [...] daily. Default OP ins ergocalcife 2021-03 Yes 48008G Q7D Take 1 Me thodi rol 0-25 [...] l mouth nightly. patiromer 2021-03 Yes 8.4g Q.37700969 Take 8.4 g [facility] calcium 0-25 [id number] [address] mouth [address] sorbitex 14:11: 3W [...] for l sleep. albuterol 2021-03 Yes 2.5mg Q.00223607 Take 2.5 [facility] sulfate 0-[id number] (PROVENTIL) 14:11: 3D nebulizati [...] 15 l packet amino 2021-03 Yes 30mL Q.31459762 Take 30 mL [facility] acids/prote 0-25 [id number] [address] mouth [address] in 14:11: 3D [...] daily. Default OP ins ergocalcife 2021-03 Yes [id number] Q7D Take 1 Me thodi rol 0-25 [...] l mouth nightly. patiromer 2021-03 Yes 8.4g Q.69735132 Take 8.4 g [facility] calcium 0-25 [id number] [address] mouth [address] sorbitex 14:11: 3W [...] for l sleep. albuterol 2021-03 Yes 2.5mg Q.08920350 Take 2.5 [facility] sulfate 0-[id number] (PROVENTIL) 14:11: 3D nebulizati [...] 15 l packet amino 2021-03 Yes 30mL Q.58745626 Take 30 mL [facility] acids/prote 0-25 [id number] [address] mouth [address] in 14:11: 3D [...] Hospit a 15 l acetaminoph 2021-03 Yes [id number] 1{tbl} Q.5D Take 1 M ethodi en-codeine [...] daily. Default OP ins ergocalcife 2021-03 Yes [id number] Q7D Take 1 Me thodi rol 0-25 [...] l mouth nightly. patiromer 2021-03 Yes 8.4g Q.59508699 Take 8.4 g [facility] calcium 0-25 [id number] mouth [address] sorbitex 14:11: 3W [...] for l sleep. albuterol 2021-03 Yes 2.5mg Q.77549997 Take 2.5 [facility] sulfate 0-[id number] (PROVENTIL) 14:11: 3D nebulizati [...] 15 l packet amino 2021-03 Yes 30mL Q.22415750 Take 30 mL [facility] acids/prote 0-25 [id number] [address] mouth [address] in 14:11: 3D [...] daily. Default OP ins ergocalcife 2021-03 Yes 90080R Q7D Take 1 Me thodi rol 0-25 [...] l mouth nightly. patiromer 2021-03 Yes 8.4g Q.44158867 Take 8.4 g [facility] calcium 0-25 [id number] [address] mouth [address] sorbitex 14:11: 3W [...] for l sleep. albuterol 2021-03 Yes 2.5mg Q.89152644 Take 2.5 [facility] sulfate 0-[id number] (PROVENTIL) 14:11: 3D nebulizati [...] 15 l packet amino 2021-03 Yes 30mL Q.02678800 Take 30 mL [facility] acids/prote 0-25 [id number] mouth [address] in 14:11: 3D [...] Hospit a 15 l acetaminoph 2021-03 Yes [id number] 1{tbl} Q.5D Take 1 M ethodi en-codeine [...] daily. Default OP ins ergocalcife 2021-03 Yes [id number] Q7D Take 1 Me thodi rol 0-25 [...] l mouth nightly. patiromer 2021-03 Yes 8.4g Q.02886728 Take 8.4 g [facility] calcium 0-25 [id number] mouth [address] sorbitex 14:11: 3W (three) Hospit a ([place]) 15 times a l 8.4 gram week. powder in Every packet e,Tess,Sa packet t,to be given on non dialysis [...] for l sleep. albuterol 2021-03 Yes 2.5mg Q.16671495 Take 2.5 [facility] sulfate 0-[id number] (PROVENTIL) 14:11: 3D nebulizati [...] 15 l packet amino 2021-03 Yes 30mL Q.69337356 Take 30 mL [facility] acids/prote 0-[id number] [address] mouth [address] in 14:11: 3D [...] Hospit a 15 l acetaminoph 2021-03 Yes [id number] 1{tbl} Q.5D Take 1 M ethodi en-codeine [...] daily. Default OP ins ergocalcife 2021-03 Yes [id number] Q7D Take 1 Me thodi rol 0-25 [...] mcg/actuati route on nasal daily. spray hydrALAZINE 2022-1 Yes 100mg Q8H Take 1 Met hodi [...] l mouth nightly. patiromer 2021-03 Yes 8.4g Q.72157083 Take 8.4 g [facility] calcium 0-[id number] mouth [address] sorbitex 14:11: 3W [...] for l sleep. albuterol 2021-03 Yes 2.5mg Q.32513995 Take 2.5 [facility] sulfate 0-[id number] (PROVENTIL) 14:11: 3D nebulizati [...] 15 l packet amino 2021-03 Yes 30mL Q.16887207 Take 30 mL [facility] acids/prote 0-25 [id number] [address] mouth [address] in 14:11: 3D [...] Hospit a 15 l acetaminoph 2021-03 Yes [id number] 1{tbl} Q.5D Take 1 M ethodi en-codeine [...] daily. Default OP ins ergocalcife 2021-03 Yes [id number] Q7D Take 1 Me thodi rol 0-25 [...] l mouth nightly. patiromer 2021-03 Yes 8.4g Q.82814796 Take 8.4 g [facility] calcium 0-25 [id number] [address] mouth [address] sorbitex 14:11: 3W [...] ity of 13:33: mouth [place] 35 daily. [facility] multivitami Yes 1{capsu Take 1 U nivers n capsule 12-25 le} capsule by ity of 13:33: mouth [place] 35 daily. [facility] clonIDINE 2021- No .2mg Q7D Place 1 Meth inderjit (CATAPRES-T - 10-28 patch (0.2 s t TS) 0.2 00:00: 04:59 mg total) Hosp carly mg/24 hr 00 :00 on the l skin once a week for 30 days. clonIDINE 2021- No .2mg Q7D Place 1 Meth inderjit (CATAPRES-T 9- 10-28 patch (0.2 s t TS) 0.2 [...] once a week for 30 days. clonIDINE 2022-0 2022- No .2mg Q7D Place 1 Meth inderjit (CATAPRES-T 9-27 10-28 patch (0.2 s t TS) 0.2 00:00: 04:59 mg total) Hosp carly mg/24 hr 00 :00 on the l skin once a week for 30 days. clonIDINE 2022-0 2022- No .2mg Q7D Place 1 Meth inderjit (CATAPRES-T 9-27 10-28 patch (0.2 s t TS) 0.2 00:00: 04:59 mg total) Hosp carly mg/24 hr 00 :00 on the l skin once a week for 30 days. clonIDINE 2022-0 2022- No .2mg Q7D Place 1 Meth inderjit (CATAPRES-T 9-27 10-28 patch (0.2 s t TS) 0.2 00:00: 04:59 mg total) Hosp carly mg/24 hr 00 :00 on the l skin once a week for 30 days. clonIDINE 2022-0 2022- No .2mg Q7D Place 1 Meth inderjit (CATAPRES-T 9-27 10-28 patch (0.2 s t TS) 0.2 00:00: 04:59 mg total) Hosp carly mg/24 hr 00 :00 on the l skin once a week for 30 days. clonIDINE 2022-0 2022- No .2mg Q7D Place 1 Meth inderjit (CATAPRES-T 9-27 10-28 patch (0.2 s t TS) 0.2 00:00: 04:59 mg total) Hosp carly mg/24 hr 00 :00 on the l skin once a week for 30 days. clonIDINE 2022-0 2022- No .2mg Q7D Place 1 Meth inderjit (CATAPRES-T 9-27 10-28 patch (0.2 s t TS) 0.2 00:00: 04:59 mg total) Hosp carly mg/24 hr 00 :00 on the l skin once a week for 30 days. acetaminoph 2-0 Yes [id number] 1{tbl} Q.5D Take 1 M ethodi en-codeine 9-[address] (TYLENOL 20:55: mouth 2 Hospit a WITH 01 (two) l CODEINE #3) times a 300-30 mg day as per tablet needed for moderate pain .acute pain. ARIPiprazol 0 Yes 5mg QD Take 1 Meth inderjit e (ABILIFY) 12-19 tablet (5 st 5 MG tablet 20:55: mg total) H ospita 01 by mouth l daily. atorvastati 0 Yes 20mg QD Take 1 Meth inderjit n (LIPITOR) 12-19 tablet (20 st 20 mg 20:55: mg total) Hospita tablet 01 by mouth l daily. Default OP ins ergocalcife 0 Yes 16244O Q7D Take 1 Me thodi rol 12-[address] (VITAMIN 20:55: (50,000 Hospit a D2) 50,000 01 Units l unit total) by capsule mouth once a week. ferrous 0 Yes 325mg Q.5D Take 1 [facility] sulfate 325 12-[address] (65 FE) MG 20:55: (325 mg Hosp carly tablet 01 total) by l mouth 2 (two) times a day. fluticasone 0 Yes 50ug QD 1 spray Met hodi propionate 12-19 ([address] (FLONASE) 20:55: total) by [...] l mouth nightly. patiromer 0 Yes 8.4g Q.04595538 Take 8.4 g [facility] calcium 12-19 [id number] mouth [address] sorbitex 20:55: 3W (three) Hospit a ([place]) 01 times a l 8.4 gram week. powder in Every packet Tue,Tess,Sa packet t,to be given on non dialysis days. aspirin Yes 81mg QD Take 1 [facility] (ECOTRIN) - tablet (81 st 81 MG 20:55: mg total) Hospita enteric 01 by mouth l coated daily. tablet calcium 2021- No 667mg QD Take 1 Method i acetate,aure 12-19- capsule st sphat bind, 20:55: 00:00 (667 mg Ho spita (PHOSLO) 01 :00 total) by l 667 mg mouth capsule nightly. metoprolol 2021-2021- No 100mg Q12H Take 1 Met hodi [...] Give odd gram powder days in packet Sun,Tue,Th packet u,Sat calcium 2021-2021- No 667mg QD Take 1 Method i [...] Give odd gram powder days in packet [place],Fri, packet u,Sat calcium 2022-0 2022- No 667mg QD Take 1 Method i acetate,aure -19 12-[address] sphat bind, 20:55: 00:00 (667 [...] Q2D Take 5 g Method i zirconium 12-19- by mouth st cyclosilica 20:55: 00:00 every Hosp carly te 01 :00 other day. l (Lokelma) 5 Give odd gram powder days in packet [place] packet u,Sat calcium 2022-0 2022- No 667mg QD Take 1 Method i acetate,aure -19 12- capsule st sphat bind, 20:55: 00:00 (667 [...] Q2D Take 5 g Method i zirconium 12-19-[address] cyclosilica 20:55: 00:00 every Hosp carly te 01 :00 other day. l (Lokelma) 5 Give odd gram powder days in packet [place],Fri, packet u,Sat calcium 2022-0 2022- No 667mg QD Take 1 Method i acetate,aure -19 12-[address] sphat bind, 20:55: 00:00 (667 [...] days in packet Fri,Fri, packet u,Sat calcium 2-0 2022- No 667mg QD Take 1 Method i acetate,aure 12-19-[address] sphat bind, 20:55: 00:00 (667 mg Ho spita (PHOSLO) 01 :00 total) by l 667 mg mouth capsule nightly. metoprolol 202-0 2022- No 100mg Q12H Take 1 Met hodi tartrate 12-19- tablet st (LOPRESSOR) 20:55: 00:00 (100 mg Ho spita 100 mg 01 :00 total) by l tablet mouth every 12 (twelve) hours. Hold for SBP<120 or HR<60 sodium 2022-0 2022- No 5g Q2D Take 5 g Method i zirconium 12-19- by mouth st cyclosilica 20:55: 00:00 every Hosp carly te 01 :00 other day. l (Lokelma) 5 Give odd gram powder days in packet Fri,Fri, packet u,Sat calcium 2-0 2022- No 667mg QD Take 1 Method i acetate,aure 12-19-[address] sphat bind, 20:55: 00:00 (667 [...] in packet Sun,Fri, packet u,Sat calcium 2021-0 2021- No 667mg [...] in packet Fri,Fri, packet u,Sat calcium 2021-0 2021- No 667mg [...] Give odd gram powder days in packet , packet u,Sat calcium 2021- No 667mg QD Take 1 Method i acetate,aure 12-[address] sphat bind, 20:55: 00:00 (667 mg Ho spita (PHOSLO) 01 :00 total) by l 667 mg mouth capsule nightly. metoprolol 2021- No 100mg Q12H Take 1 Met hodi tartrate 12-[address] (LOPRESSOR) 20:55: 00:00 (100 mg Ho spita 100 mg 01 :00 total) by l tablet mouth every 12 (twelve) hours. Hold for SBP<120 or HR<60 sodium 2021- No 5g Q2D Take 5 g Method i zirconium 12-[address] cyclosilica 20:55: 00:00 every Hosp carly te 01 :00 other day. l (Lokelma) 5 Give odd gram powder days in packet packet u,Sat cefTAZidime 2021-0 Yes 1g QD Infuse 1 g [facility] (FORTAZ) 1 - into a st gram in 50 00:00: venous Hospi ta mL Mini-Bag 00 catheter l Plus daily. vancomycin 2021-0 Yes 750mg Infuse 750 [facility] 750 mg in 9-[address] sodium 00:00: venous Hospita chloride 00 catheter l 0.9% 250 mL Every IVPB Friday, Friday, and Friday. cefTAZidime 2021-0 Yes 1g QD Infuse 1 g Methodi [...] IVPB Friday, Friday, and Friday. aspirin 325 0 2021- No 325mg QD Take 325 [facility] MG tablet 12-18- mg by st 20:55: 00:00 mouth Hospita 48 :00 daily. l clonIDINE 2021-0 2021- No .2mg Q.51004041 Take 1 [facility] HCl 12-18- [id number] tablet st (CATAPRES) 20:55: 00:00 3D (0.2 mg Hos acacia 0.2 MG 48 :00 total) by l tablet mouth 3 (three) times a day as needed. Hold if SBP<100, DBP<60 LIDOCAINE 2021-0 2021- No 1{appli Q.36612371 Apply 1 [facility] HCL TOP 12-18- cation} [id number] applicatio st 20:55: 00:00 3W n Hospita [...] not [place] [address] 50mg Q6H Take 50 mg M ethodi [...] :00 daily. l clonIDINE 2021- No .2mg Q.19889668 Take 1 [facility] HCl 12-[id number] (CATAPRES) 20:55: 00:00 3D (0.2 mg Hos acacia 0.2 MG 48 :00 total) by l tablet mouth 3 (three) times a day as needed. Hold if SBP<100, DBP<60 LIDOCAINE 2021- No 1{appli Q.24891944 Apply 1 [facility] HCL TOP 12-18 cation} [id number] applicatio st 20:55: 00:00 3W n Hospita 48 :00 topically l 3 (three) times a week. 3% Gel, Apply to right hemodialys is access every day shift every Mon, Wed,, Fri. For pain prior to dialysis lisinopril 2022-0 2022- No 40mg QD Take 1 Meth inderjit (PRINIVIL) 12-18- tablet (40 st 40 mg 20:55: 00:00 mg total) Hospit a tablet 48 :00 by mouth l daily. Hold if SBP<110, DBP<60 ,do not hold prior to dilaysis traMADol 2021- No [id number] 50mg Q6H Take 50 mg M ethodi [...] 48 :00 daily. l clonIDINE No .2mg Q.97535570 Take 1 [facility] HCl 12-[id number] (CATAPRES) 20:55: 00:00 3D (0.2 mg Hos acacia 0.2 MG 48 :00 total) by l tablet mouth 3 (three) times a day as needed. Hold if SBP<100, DBP<60 LIDOCAINE 2021- No 1{appli Q.31573018 Apply 1 [facility] HCL TOP 12-18 cation} [id number] applicatio st 20:55: 00:00 3W n Hospita [...] hold prior to dilaysis [place] 2021- [place] [id number] 50mg Q6H Take 50 mg M ethodi [...] :00 daily. l clonIDINE 2021- No .2mg Q.60180014 Take 1 [facility] HCl 12-18- [id number] tablet st (CATAPRES) 20:55: 00:00 3D (0.2 mg Hos acacia 0.2 MG 48 :00 total) by l tablet mouth 3 (three) times a day as needed. Hold if SBP<100, DBP<60 LIDOCAINE 2021- No 1{appli Q.99464441 Apply 1 [facility] HCL TOP 12-18- cation} [id number] applicatio st 20:55: 00:00 3W n Hospita [...] ,do not hold prior to dilaysis traMADol 26447 50mg Q6H Take 50 mg M ethodi (ULTRAM) 50 12-[address] mg tablet 20:55: 00:00 every 6 Hosp carly 48 :00 (six) l hours as needed for moderate pain .Acute Pain. acetaminoph 2021- No 1000mg Q6H Take 1,000 [facility] en 12-[address] (TYLENOL) 20:55: 00:00 mouth Hospit a 500 MG 48 :00 every 6 l tablet (six) hours as needed for mild pain. zinc No 220mg QD Take 220 [facility] sulfate 12-[address] (ZINCATE) 20:55: 00:00 mouth Hospit a 220 (50) mg 48 :00 daily. l capsule aspirin 325 2021- No 325mg QD Take 325 [facility] MG tablet 12-[address] 20:55: 00:00 mouth Hospita 48 :00 daily. l clonIDINE No .2mg Q.35106045 Take 1 [facility] HCl 12-[id number] (CATAPRES) 20:55: 00:00 3D (0.2 mg Hos acacia 0.2 MG 48 :00 total) by l tablet mouth 3 (three) times a day as needed. Hold if SBP<100, DBP<60 LIDOCAINE 2021- No 1{appli Q.31076598 Apply 1 [facility] HCL TOP 12-18 cation} [id number] applicatio st 20:55: 00:00 3W n Hospita [...] not [place] [id number] 50mg Q6H Take 50 mg M ethodi [...] hours as needed for mild pain. zinc 220mg QD Take 220 [facility] sulfate 12-[address] (ZINCATE) 20:55: 00:00 mouth Hospit a 220 (50) mg 48 :00 daily. l capsule aspirin 325 No 325mg QD Take 325 [facility] MG tablet 12-[address] 20:55: 00:00 mouth Hospita 48 :00 daily. l clonIDINE No .2mg Q.55747577 Take 1 [facility] HCl 12-[id number] (CATAPRES) 20:55: 00:00 3D (0.2 mg Hos acacia 0.2 MG 48 :00 total) by l tablet mouth 3 (three) times a day as needed. Hold if SBP<100, DBP<60 LIDOCAINE 2021- No 1{appli Q.06691529 Apply 1 [facility] HCL TOP 12-18 cation} [id number] applicatio st 20:55: 00:00 3W n Hospita 48 :00 topically l 3 (three) times a week. 3% Gel, Apply to right hemodialys is access every day shift every Mon, Wed,, Fri. For pain prior to dialysis lisinopril 2021- No 40mg QD Take 1 Meth inderjit (PRINIVIL) 9-20 09-20 tablet (40 st 40 mg 20:55: 00:00 mg total) Hospit a tablet 48 :00 by mouth l daily. Hold if SBP<110, DBP<60 ,do not [place] [id number] 50mg Q6H Take 50 mg M ethodi [...] :00 daily. l clonIDINE 2021- No .2mg Q.46659193 Take 1 [facility] HCl 12-[id number] (CATAPRES) 20:55: 00:00 3D (0.2 mg Hos acacia 0.2 MG 48 :00 total) by l tablet mouth 3 (three) times a day as needed. Hold if SBP<100, DBP<60 LIDOCAINE 2021- No 1{appli Q.49571139 Apply 1 [facility] HCL TOP 12-18 cation} [id number] applicatio [address] 20:55: 00:00 3W n Hospita [...] hold prior to dilaysis traMADol 2021- [place] [id number] 50mg Q6H Take 50 mg M ethodi [...] :00 daily. l clonIDINE 2021- No .2mg Q.02852142 Take 1 [facility] HCl 12-[id number] (CATAPRES) 20:55: 00:00 3D (0.2 mg Hos acacia 0.2 MG 48 :00 total) by l tablet mouth 3 (three) times a day as needed. Hold if SBP<100, DBP<60 LIDOCAINE 2021- No 1{appli Q.32872484 Apply 1 [facility] HCL TOP 12-18 cation} [id number] applicatio st 20:55: 00:00 3W n Hospita [...] not hold [place] [address] 50mg Q6H Take 50 mg M ethodi [...] No 220mg QD Take 220 [facility] sulfate 12-[address] (ZINCATE) 20:55: 00:00 mouth Hospit a 220 (50) mg 48 :00 daily. l capsule aspirin 325 2021- No 325mg QD Take 325 [facility] MG tablet 12-[address] 20:55: 00:00 mouth Hospita 48 :00 daily. l clonIDINE 2021- No .2mg Q.42551968 Take 1 [facility] HCl 12-[id number] (CATAPRES) 20:55: 00:00 3D (0.2 mg Hos acacia 0.2 MG 48 :00 total) by l tablet mouth 3 (three) times a day as needed. Hold if SBP<100, DBP<60 LIDOCAINE 2021- No 1{appli Q.75934107 Apply 1 [facility] HCL TOP 12-18 cation} [id number] applicatio st 20:55: 00:00 3W n Hospita [...] not hold [place] [address] 50mg Q6H Take 50 mg M ethodi [...] hours as needed for mild pain. zinc 220mg QD Take 220 [facility] sulfate 12-[address] (ZINCATE) 20:55: 00:00 mouth Hospit a 220 (50) mg 48 :00 daily. l capsule aspirin 325 No 325mg QD Take 325 [facility] MG tablet 12-[address] 20:55: 00:00 mouth Hospita 48 :00 daily. l clonIDINE No .2mg Q.38949300 Take 1 [facility] HCl 12-[id number] (CATAPRES) 20:55: 00:00 3D (0.2 mg Hos acacia 0.2 MG 48 :00 total) by l tablet mouth 3 (three) times a day as needed. Hold if SBP<100, DBP<60 LIDOCAINE 2021- No 1{appli Q.30754602 Apply 1 [facility] HCL TOP 12-18 cation} [id number] applicatio [address] 20:55: 00:00 3W n Hospita [...] hold prior to dilaysis tra[place]ol 2021- [place] [address] 50mg Q6H Take 50 mg M ethodi (ULTRAM) 50 - 09-[address] mg tablet 20:55: 00:00 every 6 Hosp carly 48 :00 (six) l hours as needed for moderate pain .Acute Pain. acetaminoph 2021- No 1000mg Q6H Take 1,000 [facility] en -20 09-[address] (TYLENOL) 20:55: 00:00 mouth Hospit a 500 MG 48 :00 every 6 l tablet (six) hours as needed for mild pain. zinc 2021- No 220mg QD Take 220 [facility] sulfate - 09-[address] (ZINCATE) 20:55: 00:00 mouth Hospit a 220 (50) mg 48 :00 daily. l capsule melatonin 3 Yes 3mg QD Take 3 mg M ethodi mg tablet 12-[address] 20:55: nightly as Hospita 45 needed for l sleep. albuterol Yes 2.5mg Q.38727724 Take 2.5 [facility] sulfate -[id number] (PROVENTIL) 20:55: 3D nebulizati [...] times a TEARS OPHT) day. 0.4% carvedilol 0 Yes 25mg Q.5D Take 25 mg M ethodi (COREG) 25 9-[address] MG tablet 20:55: (two) Hospita 45 times a l day with meals. Hold if SBP<100, DBP<60 lactulose 0 Yes 20g Q24H Take 20 g Met hodi 10 gram/15 9-[address] mL (15 mL) 20:55: daily as Hos acacia solution 45 needed l (constipat ion). LIDOCAINE 0 Yes 1{appli Q12H Apply 1 Me thodi [...] gram 45 l packet amino Yes 30mL Q.83122789 Take 30 mL [facility] acids/prote 9-20 [id number] [address] mouth [address] in 20:55: 3D [...] 20:55: daily. Hospit a 45 l calcium 0 2021- No 1334mg Q.97730223 Take 2 [facility] acetate 9-20 09-20 [id number] capsules s t (PHOSLO) 14:15: 00:00 3D (1,334 mg Hos acacia 667 mg 08 :00 total) by l capsule mouth 3 (three) times a day with meals. Give 15 minutes before meals calcium 2021-0 2021- No 1334mg Q.22700075 Take 2 [facility] acetate 9-20 09-20 [id number] capsules s t (PHOSLO) 14:15: 00:00 3D (1,334 mg Hos acacia 667 mg 08 :00 total) by l capsule mouth 3 (three) times a day with meals. Give 15 minutes before meals calcium 2022-0 2022- No 1334mg [id number] Take 2 Methodi acetate 9-20 -20 [id number] capsules s t (PHOSLO) 14:15: 00:00 3D (1,334 mg Hos acacia 667 mg 08 :00 total) by l capsule mouth 3 (three) times a day with meals. Give 15 minutes before meals calcium 202-0 2022- No 1334mg [id number] Take 2 Methodi acetate 9-18 12-20 [id number] capsules s t (PHOSLO) 14:15: 00:00 3D (1,334 mg Hos acacia 667 mg 08 :00 total) by l capsule mouth 3 (three) times a day with meals. Give 15 minutes before meals calcium 2021-0 2022- No 1334mg [id number] Take 2 Methodi acetate 9-18 12-20 [id number] capsules s t (PHOSLO) 14:15: 00:00 3D (1,334 mg Hos acacia 667 mg 08 :00 total) by l capsule mouth 3 (three) times a day with meals. Give 15 minutes before meals calcium 2021-0 2022- No 1334mg [id number] Take 2 Methodi acetate -18 12- [id number] capsules s t (PHOSLO) 14:15: 00:00 3D (1,334 mg Hos acacia 667 mg 08 :00 total) by l capsule mouth 3 (three) times a day with meals. Give 15 minutes before meals calcium 2022-0 2022- No 1334mg [id number] Take 2 Methodi acetate 9-20 -20 [id number] capsules s t (PHOSLO) 14:15: 00:00 3D (1,334 mg Hos acacia 667 mg 08 :00 total) by l capsule mouth 3 (three) times a day with meals. Give 15 minutes before meals calcium 2022-0 2022- No 1334mg Q.16422994 Take 2 [facility] acetate 9-20 -20 [id number] capsules s t (PHOSLO) 14:15: 00:00 3D (1,334 mg [facility] acacia 667 mg 08 :00 total) by l capsule mouth 3 (three) times a day with meals. Give 15 minutes before meals calcium 2022-0 2022- No 1334mg Q.26061311 Take 2 [facility] acetate 9-20 09-20 [id number] capsules s t (PHOSLO) 14:15: 00:00 3D (1,334 mg [facility] 667 mg 08 :00 total) by l capsule mouth 3 (three) times a day with meals. Give 15 minutes before meals calcium 2022-0 2022- No 1334mg Q.[id number] Take 2 [facility] acetate 9-20 09-20 [id number] capsules s t (PHOSLO) 14:15: 00:00 3D (1,334 mg [facility] 667 mg 08 :00 total) by l capsule mouth 3 (three) times a day with meals. Give 15 minutes before meals calcium 2022-0 Yes 2001mg Q.15126199 Take 3 [facility] acetate,aure 9-[id number] sphat bind, 00:00: 3D (2,001 mg H [facility]spita (PHOSLO) 00 total) by l 667 mg mouth 3 capsule (three) times a day with meals. Give 15 minutes before meals calcium 2022-0 Yes 2001mg Q.63064664 Take 3 [facility] acetate,aure 9-[id number] sphat bind, 00:00: 3D (2,001 mg H [facility]spita (PHOSLO) 00 total) by l 667 mg mouth 3 capsule (three) times a day with meals. Give 15 minutes before meals calcium 2022-0 Yes 2001mg Q.64933330 Take 3 [facility] acetate,aure 9-[id number] sphat bind, 00:00: 3D (2,001 mg [facility]sp[facility] (PHOSLO) 00 total) by l 667 mg mouth 3 capsule (three) times a day with meals. Give 15 minutes before meals calcium 2022-0 Yes 2001mg Q.71386026 Take 3 [facility] acetate,aure 9-[id number] sphat bind, 00:00: 3D (2,001 mg H [facility]sp[facility] (PHOSLO) 00 total) by l 667 mg mouth 3 capsule (three) times a day with meals. Give 15 minutes before meals calcium 2022-0 Yes 2001mg Q.27393540 Take 3 [facility] acetate,aure 9-[id number] sphat bind, 00:00: 3D (2,001 mg [facility] (PHOSLO) 00 total) by l 667 mg mouth 3 capsule (three) times a day with meals. Give 15 minutes before meals calcium 2022-0 Yes 2001mg Q.87935500 Take 3 [facility] acetate,aure 9-[id number] sphat bind, 00:00: 3D (2,001 mg [facility] (PHOSLO) 00 total) by l 667 mg mouth 3 capsule (three) times a day with meals. Give 15 minutes before meals calcium 2022-0 Yes 2001mg Q.61982183 Take 3 [facility] acetate,aure 9-[id number] sphat bind, 00:00: 3D (2,001 mg [facility] (PHOSLO) 00 total) by l 667 mg mouth 3 capsule (three) times a day with meals. Give 15 minutes before meals calcium 2022-0 Yes 2001mg Q.46580226 Take 3 [facility] acetate,aure 9-[id number] sphat bind, 00:00: 3D (2,001 mg [facility]sp[facility] (PHOSLO) 00 total) by l 667 mg mouth 3 capsule (three) times a day with meals. Give 15 minutes before meals calcium 2022-0 Yes 2001mg Q.02244614 Take 3 [facility] acetate,aure 9-[id number] sphat bind, 00:00: 3D (2,001 mg [facility]sp[facility] (PHOSLO) 00 total) by l 667 mg mouth 3 capsule (three) times a day with meals. Give 15 minutes before meals calcium 2022-0 Yes 2001mg Q.06138854 Take 3 [facility] acetate,aure 9-[id number] sphat bind, 00:00: 3D (2,001 mg H [facility]spita (PHOSLO) 00 total) by l 667 mg mouth 3 capsule (three) times a day with meals. Give 15 minutes before meals acetaminoph acetaminoph No 1 BID acetaminop [facility] [...] days. as needed for 30 days. acetaminoph 0 Yes Q12H every 12 UT en-codeine 09-25 (twelve) Healt h (Tylenol w/ 16:44: hours. Codeine #3) 48 300-30 MG tablet atorvastati 0 Yes QD 1 (one) UT n (Lipitor) 6- time each Hea lth 20 MG 16:44: day. tablet 48 calcium Yes calcium UT acetate 09-25 acetate( [facility] 16:44: osphate 667 MG 48 binders) capsule 667 mg capsule 2 TID with meals and 1 at bedtime with snack carvedilol 0 Yes Q12H every 12 UT (Coreg) 25 09-25 (twelve) Healt h MG tablet 16:44: hours. 48 cloNIDine Yes clonidine UT (Catapres-T 09-25 0.1 mg/24 Hea lth TS) 0.1 16:44: hr weekly MG/24HR 48 transderma l patch Apply 1 patch every week by transderma l route. ergocalcife Yes 1{capsu 1 capsule. UT rol 09-25 le} [facility] (Vitamin 16:44: D-2) 1.25 48 MG (23835 UT) capsule ferrous 2021-0 Yes Q12H every 12 UT sulfate 325 09-25 (twelve) Heal th (65 Fe) MG 16:44: hours. tablet 48 fluticasone 2021-0 Yes QD 1 (one) UT (Flonase) 6-28 [...] 12 l (twelve) hours. traMADol 2018-03 Yes 61039 50mg Q6H Take 50 mg Me thodi [...] for l sleep. albuterol 2018-03 Yes 2.5mg Q.07130896 Take 2.5 [facility] sulfate 1-[id number] (PROVENTIL) 15:53: 3D nebulizati [...] OPHT) day. 0.4% calcium 2018-03 Yes 2001mg Q.07905650 Take 2,001 [facility] acetate 1-[id number] (PHOSLO) 15:53: 3D mouth 3 Hospit a 667 mg 19 (three) l capsule times a day with meals. Give 15 minutes before meals clonIDINE 2018-03 Yes .2mg Q.99160589 Take 0.2 [facility] HCl 1-[id number] (CATAPRES) 15:53: 3D mouth [...] needed for pain LIDOCAINE 2018-03 Yes 1{appli Q.46101553 Apply 1 [facility] HCL TOP 1-30 cation} [id number] applicatio st 15:53: 3W n Hospita 19 [...] 19 l packet amino 2018-03 Yes 30mL Q.31000952 Take 30 mL [facility] acids/prote 1-30 [id number] by mouth 3 [facility] in 15:53: 3D (three) Hospita hydr/fiber 19 times a l (PRO-STAT day. RENAL CARE ORAL) senna 2018-03 Yes 2{tbl} Q12H Take 2 [facility] (SENOKOT) 1-[address] 8.6 mg 15:53: mouth Hospita tablet 19 every 12 l (twelve) hours. traMADol 2018-03 Yes [id number] 50mg Q6H Take 50 mg Me thodi [...] daily. l capsule calcium 2018-03 Yes 2001mg Q.44108840 Take 2,001 [facility] acetate 1-[id number] (PHOSLO) 15:53: 3D mouth 3 Hospit a 667 mg 19 (three) l capsule times a day with meals. Give 15 minutes before meals cetirizine 2018-03 Yes 10mg QD Take 10 mg M [facility]i (ZyrTEC) 10 1-[address] MG tablet 15:53: daily. Hospit a 19 l clonIDINE 2018-03 Yes .2mg Q.96984046 Take 0.2 [facility] HCl 1-[id number] (CATAPRES) 15:53: 3D mouth [...] needed for pain LIDOCAINE 2018-03 Yes 1{appli Q.54153007 Apply 1 [facility] HCL TOP 1-30 cation} [id number] applicatio st 15:53: 3W n Hospita 19 [...] 19 l packet amino 2018-03 Yes 30mL Q.39678361 Take 30 mL [facility] acids/prote 1-30 [id number] by mouth [address] in 15:53: 3D (three) Hospita hydr/fiber 19 times a l (PRO-STAT day. RENAL CARE ORAL) senna 2018-03 Yes 2{tbl} Q12H Take 2 [facility] (SENOKOT) 1-[address] 8.6 mg 15:53: mouth Hospita tablet 19 every 12 l (twelve) hours. traMADol 2018-03 Yes [id number] 50mg Q6H Take 50 mg Me thodi [...] for l sleep. albuterol 2018-03 Yes 2.5mg Q.38759053 Take 2.5 [facility] sulfate 1-[id number] (PROVENTIL) 15:53: 3D nebulizati [...] OPHT) day. 0.4% calcium 2018-03 Yes 2001mg Q.11888161 Take 2,001 [facility] acetate 1-[id number] (PHOSLO) 15:53: 3D mouth 3 Hospit a 667 mg 19 (three) l capsule times a day with meals. Give 15 minutes before meals clonIDINE 2018-03 Yes .2mg Q.80169426 Take 0.2 [facility] HCl 1-[id number] (CATAPRES) 15:53: 3D mouth [...] needed for pain LIDOCAINE 2018-03 Yes 1{appli Q.93029121 Apply 1 [facility] HCL TOP 1-30 cation} [id number] applicatio st 15:53: 3W n Hospita 19 [...] 19 l packet amino 2018-03 Yes 30mL Q.59460562 Take 30 mL [facility] acids/prote 1-30 [id number] by mouth [address] in 15:53: 3D (three) Hospita hydr/fiber 19 times a l (PRO-STAT day. RENAL CARE ORAL) senna 2018-03 Yes 2{tbl} Q12H Take 2 [facility] (SENOKOT) 1-[address] 8.6 mg 15:53: mouth Hospita tablet 19 every 12 l (twelve) hours. traMADol 2018-03 Yes 37125 50mg Q6H Take 50 mg Me thodi [...] for l sleep. albuterol 2018-03 Yes 2.5mg Q.00868049 Take 2.5 [facility] sulfate 1-[id number] (PROVENTIL) 15:53: 3D nebulizati [...] OPHT) day. 0.4% calcium 2018-03 Yes 2001mg Q.46264884 Take 2,001 [facility] acetate 1-[id number] (PHOSLO) 15:53: 3D mouth 3 Hospit a 667 mg 19 (three) l capsule times a day with meals. Give 15 minutes before meals clonIDINE 2018-03 Yes .2mg Q.94374940 Take 0.2 [facility] HCl 1-[id number] (CATAPRES) 15:53: 3D mouth [...] needed for pain LIDOCAINE 2018-03 Yes 1{appli Q.68173750 Apply 1 [facility] HCL TOP 1-30 cation} [id number] applicatio [address] 15:53: 3W n Hospita 19 [...] 19 l packet amino 2018-03 Yes 30mL Q.74654470 Take 30 mL [facility] acids/prote 1-30 [id number] by mouth [address] in 15:53: 3D (three) Hospita hydr/fiber 19 times a l (PRO-STAT day. RENAL CARE ORAL) senna 2018-03 Yes 2{tbl} Q12H Take 2 [facility] (SENOKOT) 1-[address] 8.6 mg 15:53: mouth Hospita tablet 19 every 12 l (twelve) hours. traMADol 2018-03 Yes 18445 50mg Q6H Take 50 mg Me thodi [...] for l sleep. albuterol 2018-03 Yes 2.5mg Q.75256744 Take 2.5 [facility] sulfate 1-[id number] (PROVENTIL) 15:53: 3D nebulizati [...] OPHT) day. 0.4% albuterol 2018-03 Yes 2.5mg Q.41356876 Take 2.5 [facility] sulfate 1-[id number] (PROVENTIL) 15:53: 3D nebulizati Hospita 2.5 mg/0.5 19 on 3 l mL solution (three) for times a nebulizatio day as n needed (congestio n/cough). calcium 2018-03 Yes 2001mg Q.05933814 Take 2,001 [facility] acetate 1-[id number] (PHOSLO) 15:53: 3D mouth 3 Hospit a 667 mg 19 (three) l capsule times a day with meals. Give 15 minutes before meals clonIDINE 2018-03 Yes .2mg Q.95916844 Take 0.2 [facility] HCl 1-[address] (CATAPRES) 15:53: 3D mouth [...] needed for pain LIDOCAINE 2018-03 Yes 1{appli Q.88215684 Apply 1 [facility] HCL TOP 1-30 cation} [id number] applicatio [address] 15:53: 3W n Hospita 19 [...] 19 l packet amino 2018-03 Yes 30mL Q.41878724 Take 30 mL [facility] acids/prote 1-30 [id number] by mouth [facility] [address] in 15:53: 3D [...] 44 daily. Center calcium 2018-03 Yes 667mg Q.99824962 Take [address] [facility] acetate 1-21 [id number] [facility] (PHOSLO) 22:13: 3D mouth 3 Medica l 667 mg 44 (three) Center capsule times daily. cloNIDine 2018-03 Yes hypertensio .2mg Q.18556688 Take 0.[address] HCl 1-21 n [id number] mg [facility] (CATAPRES) 22:13: 3D mouth [...] Center gram/dose powder amino 2018-03 Yes 30mL Q.37977902 Take [address] [facility] [address] acids-prote 1-21 [id number] mLs by [facility] in 22:13: 3D mouth [...] MG tablet 22:13: daily. Medi ellyn 44 [facility] zinc 2018-03 Yes 220mg QD Take [address] sulfate 1-21 mg by [facility] (ZINCATE) 22:13: mouth Medical 220 (50) mg 44 daily. [facility] capsule cetirizine 2018-03 Yes 10mg QD Take [address] (ZYRTEC) 10 1-21 by mouth Luke s MG tablet 22:13: daily. Medica l 44 [facility] lidocaine 3 2018-03 Yes administrat 1{appli Apply [...] [address] [facility] yl 1-21 drop into [facility] methylcellu 22:13: both eyes M edical lose 44 2 (two) Center (ISOPTO times TEARS) 2.5 daily % Artificial ophthalmic tears solution solution 0.4% (hypromell ose) . aspirin 325 2018-03 Yes acute 325mg QD Take [address] MG tablet 1-21 myocardial mg by Mike es 22:13: infarction mouth Medica l 44 daily. Arabi calcium 2018-03 Yes 667mg Q.87139674 Take [address] acetate 1-21 [id number] mg by [facility] (PHOSLO) 22:13: 3D mouth 3 Medica l 667 mg 44 (three) Center capsule times daily. cloNIDine 2018-03 Yes hypertensio .2mg Q.93619393 Take 0.[address] HCl 1-21 n [id number] mg by [facility] (CATAPRES) 22:13: 3D mouth [...] Center gram/dose powder amino 2018-03 Yes 30mL Q.42314387 Take [address] [address] acids-prote 1-21 [id number] mLs by [facility] in 22:13: 3D mouth [...] MG tablet 22:13: daily. Medica l 44 [facility] lidocaine 3 2018-03 Yes administrat 1{appli Apply [...] 22:13: infarction mouth Medica l 44 daily. [facility] calcium 2018-03 Yes 667mg Q.93943536 Take [address] acetate 1-21 [id number] mg [facility] (PHOSLO) 22:13: 3D mouth 3 Medica l 667 mg 44 (three) Center capsule times daily. cloNIDine 2018-03 Yes hypertensio .2mg Q.35601163 Take 0.[address] HCl 1-21 n [id number] mg by [facility] (CATAPRES) 22:13: 3D mouth [...] Center gram/dose powder amino 2018-03 Yes 30mL Q.92729590 Take [address] acids-prote 1-21 [id number] mLs by [facility] in 22:13: 3D mouth [...] 44 daily. Center calcium 2018-03 Yes 667mg Q.11297636 Take [address] acetate 1-21 [id number] mg [facility] (PHOSLO) 22:13: 3D mouth 3 Medica l 667 mg 44 (three) Center capsule times daily. cloNIDine 2018-03 Yes hypertensio .2mg Q.16936217 Take 0.[address] HCl 1-21 n [id number] mg by [facility] (CATAPRES) 22:13: 3D mouth [...] Center gram/dose powder amino 2018-03 Yes 30mL Q.45179534 Take [address] acids-prote 1-21 [id number] mLs by [facility] in 22:13: 3D mouth [...] St MG tablet 1-21 myocardial mg by Miek es 22:13: infarction mouth Medica l 44 daily. Center calcium 2018-03 Yes 667mg Q.35240494 Take [address] acetate 1-21 [id number] mg by [facility] (PHOSLO) 22:13: 3D mouth 3 Medica l 667 mg 44 (three) Center capsule times daily. cloNIDine 2018-03 Yes hypertensio .2mg Q.23129436 Take 0.[address] HCl 1-21 n [id number] mg by [facility] (CATAPRES) 22:13: 3D mouth [...] 22:13: daily. Medic al MG tablet 44 [facility]i melatonin 3 2018-03 Yes 3mg Take [address] mg Tab 1-21 by mouth [facility] tablet 22:13: every Medical 44 night as Center needed. omeprazole 2018-03 Yes 20mg QD Take [address] (PRILOSEC 1-21 by mouth [facility] OTC) 20 MG 22:13: daily. Medic al tablet 44 [facility] polyethylen 2018-03 Yes 17g QD Take [address] e glycol 1-21 by mouth [facility] (GLYCOLAX) 22:13: daily. Medic al 17 44 [facility] gram/dose powder amino 2018-03 Yes 30mL Q.23356565 Take [address] [facility] [address] acids-prote 1-21 [id number] mLs by [facility] in 22:13: 3D mouth [...] MG tablet 22:13: daily. Medi ellyn 44 [facility] zinc 2018-03 Yes 220mg QD Take [address] sulfate 1-21 mg by [facility] (ZINCATE) 22:13: mouth Medical 220 (50) mg 44 daily. [facility] capsule cetirizine 2018-03 Yes 10mg QD Take [...] 10 MG 22:13: daily. Medical tablet 44 [facility] hydroxyprop 2018-03 Yes dry eye 1[drp] Q.5D [...] 22:13: infarction mouth Medica l 44 daily. [facility] amLODIPine 2018-03 Yes hypertensio 5mg QD Take [address] [facility] (NORVASC) 1-21 n by mouth [facility] 10 MG 22:13: daily. Medical tablet 44 [facility] calcium 2018-03 Yes 667mg Q.25704252 Take [address] acetate 1-21 [id number] mg by [facility] (PHOSLO) 22:13: 3D mouth 3 Medica l 667 mg 44 (three) Center capsule times daily. cloNIDine 2018-03 Yes hypertensio .2mg Q.68229269 Take 0.[address] HCl 1-21 n [id number] mg by [facility] (CATAPRES) 22:13: 3D mouth [...] Center gram/dose powder amino 2018-03 Yes 30mL Q.58044885 Take [address] acids-prote 1-21 [id number] mLs by [facility] in 22:13: 3D mouth [...] 44 daily. Center calcium 2018-03 Yes 667mg Q.09766992 Take [address] acetate 1-21 [id number] mg by [facility] (PHOSLO) 22:13: 3D mouth 3 Medica l 667 mg 44 (three) Center capsule times daily. aspirin 325 2018-03 Yes acute 325mg QD Take [address] MG tablet 1-21 myocardial mg by Mike es 22:13: infarction mouth Medica l 44 daily. [facility]i cloNIDine 2018-03 Yes hypertensio .2mg Q.73917999 Take 0.[address] HCl 1-21 n [id number] mg by [facility] (CATAPRES) 22:13: 3D mouth [...] Center gram/dose powder amino 2018-03 Yes 30mL Q.88819681 Take [address] acids-prote 1-21 [id number] mLs by [facility] in 22:13: 3D mouth [...] needed for Pain. calcium 2018-03 Yes 667mg Q.82836561 Take [address] acetate 1-21 [id number] mg by [facility] (PHOSLO) 22:13: 3D mouth [...] 44 daily. Center calcium 2018-03 Yes 667mg Q.97311150 Take [address] acetate 1-21 [id number] mg by [facility] (PHOSLO) 22:13: 3D mouth 3 Medica l 667 mg 44 (three) Center capsule times daily. cloNIDine 2018-03 Yes hypertensio .2mg Q.39678104 Take 0.[address] HCl 1-21 n [id number] mg by [facility] (CATAPRES) 22:13: 3D mouth 3 Medi ellyn 0.2 MG 44 (three) Center tablet times daily. cloNIDine 2018-03 Yes hypertensio .2mg Q.03857086 Take 0.[address] HCl 1-21 n [id number] mg by [facility] (CATAPRES) 22:13: 3D mouth [...] Center gram/dose powder amino 2018-03 Yes 30mL Q.07389402 Take [address] acids-prote 1-21 2080606568 mLs by [facility] in 22:13: 3D mouth [...] 22:13: infarction mouth Medica l 44 daily. Arabi calcium 2018-03 Yes 667mg Q.82013075 Take [address] acetate 1-21 [id number] mg by [facility] (PHOSLO) 22:13: 3D mouth 3 Medica l 667 mg 44 (three) Center capsule times daily. cloNIDine 2018-03 Yes hypertensio .2mg Q.02722493 Take 0.[address] HCl 1-21 n [id number] mg by [facility] (CATAPRES) 22:13: 3D mouth [...] Medical mL (15 mL) 44 Center solution lactulose 2018-03 Yes constipatio 20g Take 20 [...] Center gram/dose powder amino 2018-03 Yes 30mL Q.86537893 Take [address] acids-prote 1-21 [id number] mLs by [facility] in 22:13: 3D mouth [...] tablet 22:13: daily. Medi ellyn 44 Center lisinopril 2018-03 Yes 40mg QD Take [address] (PRINIVIL,Z 1-21 by mouth Luke s ESTRIL) 40 22:13: daily. Medic al MG tablet 44 Center zinc 2018-03 Yes 220mg QD Take [address] sulfate 1-21 mg by [facility] (ZINCATE) 22:13: mouth Medical 220 (50) mg 44 daily. [facility] capsule cetirizine 2018-03 Yes 10mg QD Take [address] (ZYRTEC) 10 1-21 by mouth Luke s MG tablet 22:13: daily. Medica l 44 Center lidocaine 3 2018-03 Yes administrat 1{appli Apply [address] [facility] [address] % Crea 1-21 ion of cation} applicatio Abbi kes 22:13: local n Medical [address] [facility] ter amLODIPine 2018-03 Yes hypertensio 5mg QD Take [address] [facility] (NORVASC) 1-21 n by mouth [facility] 10 MG 22:13: daily. Medical tablet 44 [facility] hydroxyprop 2018-03 Yes dry eye 1[drp] Q.5D [...] 22:13: infarction mouth Medica l 44 daily. [facility] calcium 2018-03 Yes 667mg Q.13771960 Take [address] acetate 1-21 [id number] mg by [facility] (PHOSLO) 22:13: 3D mouth 3 Medica l 667 mg 44 (three) Center capsule times daily. cloNIDine 2018-03 Yes hypertensio .2mg Q.68440638 Take 0.[address] HCl 1-21 n [id number] mg by [facility] (CATAPRES) 22:13: 3D mouth [...] Medical mL (15 mL) 44 Center solution amLODIPine 2018-03 Yes hypertensio 5mg QD Take [...] 44 daily. Center calcium 2018-03 Yes 667mg Q.33841727 Take [address] acetate 1-21 [id number] mg by [facility] (PHOSLO) 22:13: 3D mouth 3 Medica l 667 mg 44 (three) Center capsule times daily. cloNIDine 2018-03 Yes hypertensio .2mg Q.55045542 Take 0.[address] HCl 1-21 n [id number] mg by [facility] (CATAPRES) 22:13: 3D mouth 3 Medi ellyn 0.2 MG 44 (three) Center tablet times daily. carvedilol 2018-03 Yes hypertensio 25mg Take [address] [facility] (COREG) 25 1-21 n by mouth 2 Mike es MG tablet 22:13: (two) Medical 44 times Center daily with breakfast and dinner. melatonin 3 2018-03 Yes 3mg Take [address] mg Tab 1-21 by mouth [facility] tablet 22:13: every Medical 44 night as Center needed. lactulose 2018-03 Yes constipatio 20g Take 20 [...] Center gram/dose powder amino 2018-03 Yes 30mL Q.92672172 Take [address] [address] acids-prote 1-21 [id number] mLs by [facility] in 22:13: 3D mouth [...] tablet 22:13: daily. Medi ellyn 44 Center lisinopril 2018-03 Yes 40mg QD Take [address] (PRINIVIL,Z 1-21 by mouth Luke s ESTRIL) 40 22:13: daily. Medic al MG tablet 44 Center zinc 2018-03 Yes 220mg QD Take [address] sulfate 1-21 mg by [facility] (ZINCATE) 22:13: mouth Medical 220 (50) mg 44 daily. Arabi capsule cetirizine 2018-03 Yes 10mg QD Take [address] (ZYRTEC) 10 1-21 by mouth Luke s MG tablet 22:13: daily. Medica l 44 Center lidocaine 3 2018-03 Yes administrat 1{appli Apply [address] [facility] % Crea 1-21 ion of cation} applicatio Abbi kes 22:13: local n Medical [address] melatonin 3 2018-03 Yes 3mg Take 3 [...] Center gram/dose powder amino 2018-03 Yes 30mL Q.94366452 Take [address] acids-prote 1-21 1917316559 mLs by [facility] in 22:13: 3D mouth [...] 220 (50) mg 44 daily. Center capsule omeprazole 2018-03 Yes 20mg QD Take [address] (PRILOSEC 1-21 by mouth [facility] OTC) 20 MG 22:13: daily. Medic al tablet 44 Center cetirizine 2018-03 Yes 10mg QD Take [address] (ZYRTEC) 10 1-21 by mouth Luke s MG tablet 22:13: daily. Medica l 44 Center lidocaine 3 2018-03 Yes administrat 1{appli Apply [address] [facility] % Crea -21 ion of cation} applicatio Abbi kes 22:13: local n Medical [address] polyethylen 2018-03 Yes 17g QD Take [address] e glycol -21 by mouth [facility] (GLYCOLAX) 22:13: daily. Medic al 17 44 Center gram/dose powder amino 2018-03 Yes 30mL Q.95226718 Take [address] [facility] [address] acids-prote 1-21 6698145025 mLs by [facility] in 22:13: 3D mouth [...] mouth Medical 220 (50) mg 44 daily. [facility] capsule cetirizine 2018-03 Yes 10mg QD Take [...] 44 daily. Center calcium 2018-03 Yes 667mg Q.69441025 Take [address] acetate 1-21 [id number] mg by [facility] (PHOSLO) 22:13: 3D mouth 3 Medica l 667 mg 44 (three) Center capsule times daily. cloNIDine 2018-03 Yes hypertensio .2mg Q.22804893 Take 0.[address] HCl 1-21 n [id number] mg by [facility] (CATAPRES) 22:13: 3D mouth [...] Center gram/dose powder amino 2018-03 Yes 30mL Q.07952049 Take [address] [address] acids-prote 1-21 6962073720 mLs by [facility] in 22:13: 3D mouth [...] MG tablet 22:13: daily. Medi ellyn 44 [facility]i zinc 2018-03 Yes 220mg QD Take [address] sulfate 1-21 mg by [facility] (ZINCATE) 22:13: mouth Medical 220 (50) mg 44 daily. [facility] capsule cetirizine 2018-03 Yes 10mg QD Take [...] 44 daily. Center calcium 2018-03 Yes 667mg Q.43676168 Take [address] acetate 1-21 [id number] mg by [facility] (PHOSLO) 22:13: 3D mouth 3 Medica l 667 mg 44 (three) Center capsule times daily. cloNIDine 2018-03 Yes hypertensio .2mg Q.50222867 Take 0.[address] HCl 1-21 n [id number] mg by [facility] (CATAPRES) 22:13: 3D mouth [...] Center gram/dose powder amino 2018-03 Yes 30mL Q.75638939 Take [address] [facility] [address] acids-prote 1-21 0021893256 mLs by [place] in 22:13: 3D mouth 3 Medical hydr-fiber 44 (three) Center 15 gram- times 100 kcal/30 daily. mL LiPk senna 2018-03 Yes 2{tbl} Q.5D Take [address] [facility] [address] (SENOKOT) 1-21 tablets by Luke s 8.6 mg 22:13: mouth 2 Medical tablet 44 (two) Center times daily. aspirin 81 Yes 81mg Take 1 [facility] mg chewable 1-26 tablet by ity of tablet 00:00: mouth [place] 00 daily. [facility] aspirin 81 Yes 81mg Take 1 [facility] mg chewable 1-26 tablet by ity of tablet 00:00: mouth [place] 00 daily. [facility] aspirin 81 Yes 81mg Take 1 [facility] mg chewable 1-26 tablet by ity of tablet 00:00: mouth [place] 00 daily. Medical Branch aspirin 81 Yes 81mg Take 1 [facility] mg chewable 1-26 tablet by ity of tablet 00:00: mouth [place] 00 daily. Medical Branch aspirin 81 2018- Yes 81mg Take 1 [facility] mg chewable 1-26 tablet by ity of tablet 00:00: mouth [place] 00 daily. Medical Branch aspirin 81 2018-0 Yes 81mg Take 1 [facility] mg chewable 1-26 tablet by ity of tablet 00:00: mouth [place] 00 daily. Medical Branch aspirin 81 2018- Yes 81mg Take 1 [facility] rs mg [...] mouth [place] 00 daily. Medical Branch multivitami 2017- Yes 1{capsu Take 1 U nivers n capsule 1-25 le} capsule by ity of 17:56: mouth [place] 44 daily. Medical Branch pantoprazol 2017- Yes 40mg Take 1 [facility] ers e [...] Medical (eight) Branch hours. isosorbide 2018-0 Yes [id number] 30mg Take 1 [facility] mononitrate 1-25 tablet [...] Medical (eight) Branch hours. isosorbide 2018-0 Yes [id number] 30mg Take 1 [facility] mononitrate 1-25 tablet [...] Medical (eight) Branch hours. isosorbide 2018-0 Yes [id number] 30mg Take 1 [facility] mononitrate 1-25 tablet [...] Medical (eight) Branch hours. isosorbide 2018-0 Yes [id number] 30mg Take 1 [facility] mononitrate 1-25 tablet [...] Medical (eight) Branch hours. isosorbide 2018-0 Yes [id number] 30mg Take 1 [facility] mononitrate 1-25 tablet [...] Medical (eight) Branch hours. isosorbide 2018-0 Yes [id number] 30mg Take 1 [facility] mononitrate 1-25 tablet [...] Medical (eight) Branch hours. isosorbide 2018-0 Yes [id number] 30mg Take 1 [facility] mononitrate 1-25 tablet [...] Medical (eight) Branch hours. isosorbide 2018-0 Yes [id number] 30mg Take 1 [facility] mononitrate 1-25 tablet [...] Medical (eight) Branch hours. isosorbide 2018-0 Yes [id number] 30mg Take 1 [facility] mononitrate 1-25 tablet [...] Branch daily. ergocalcife ergocalcife No ergocalcif [facility] (vitamin (vitamin (vitamin D2) 1,250 D2) 1,250 [...] nasal mcg/actuat spray,suspe spray,suspe ion nasal nsion [place] nsion [place] spray,susp 1 spray 1 spray ension every day every day [place] 1 by nasal by nasal spray route [...] a day dialysis dialysis at dialysis [facility] [place] via 8.4 gram 8.4 [...] nasal mcg/actuat spray,suspe spray,suspe ion nasal nsion [place] nsion [place] spray,susp 1 spray 1 spray ension every day every day [place] 1 by nasal by nasal spray route [...] nasal mcg/actuat spray,suspe spray,suspe ion nasal nsion [place] nsion [place] spray,susp 1 spray 1 spray ension every day every day [place] 1 by nasal by nasal spray route [...] once a [facility] No [place] [place] via 8.4 gram [...] nasal mcg/actuat spray,suspe spray,suspe ion nasal nsion [place] nsion [place] spray,susp 1 spray 1 spray ension every day every day [place] 1 by nasal by nasal spray route [...] nasal mcg/actuat spray,suspe spray,suspe ion nasal nsion [place] nsion [place] spray,susp 1 spray 1 spray ension every day every day [place] 1 by nasal by nasal spray route [...] nasal mcg/actuat spray,suspe spray,suspe ion nasal nsion [place] nsion [place] spray,susp 1 spray 1 spray ension every day every day [place] 1 by nasal by nasal spray route [...] l route. ergocalcife ergocalcife No ergocalcif [facility] (vitamin (vitamin (vitamin D2) 1,250 D2) [...] nasal mcg/actuat spray,suspe spray,suspe ion nasal nsion [place] nsion [place] spray,susp 1 spray 1 spray ension every day every day [place] 1 by nasal by nasal spray route [...] 81 [facility] mg mg mg Medical tablet,joy tablet,ojy tablet,del yed release yed release ayed Take [...] nasal mcg/actuat spray,suspe spray,suspe ion nasal nsion [place] nsion [place] spray,susp 1 spray 1 spray ension every day every day [place] 1 by nasal by nasal spray route [...] once a day dialysis dialysis at dialysis [facility] [place] via 8.4 gram 8.4 gram [...] nasal mcg/actuat spray,suspe spray,suspe ion nasal nsion [place] nsion [place] spray,susp 1 spray 1 spray ension every day every day [place] 1 by nasal by nasal spray route [...] at once a day dialysis dialysis at [facility] [place] [facility] [place] via 8.4 gram 8.4 gram [...] nasal mcg/actuat spray,suspe spray,suspe ion nasal nsion [place] nsion [place] spray,susp 1 spray 1 spray ension every day every day [place] 1 by nasal by nasal spray route [...] nasal mcg/actuat spray,suspe spray,suspe ion nasal nsion [place] nsion [place] spray,susp 1 spray 1 spray ension every day every day [place] 1 by nasal by nasal spray route [...] nasal mcg/actuat spray,suspe spray,suspe ion nasal nsion [place] nsion [place] spray,susp 1 spray 1 spray ension every day every day [place] 1 by nasal by nasal spray route [...] nasal mcg/actuat spray,suspe spray,suspe ion nasal nsion [place] nsion [place] spray,susp 1 spray 1 spray ension every day every day [place] 1 by nasal by nasal spray route [...] nasal mcg/actuat spray,suspe spray,suspe ion nasal nsion [place] nsion [place] spray,susp 1 spray 1 spray ension every day every day [place] 1 by nasal by nasal spray route [...] odd days Sun, Tues, Sun, Tu, Sun, Tues, Thur, Sat Thur, Sat Thur, [...] nasal mcg/actuat spray,suspe spray,suspe ion nasal nsion [place] nsion [place] spray,susp 1 spray 1 spray ension every day every day [place] 1 by nasal by nasal spray route [...] dialysis dialysis on non days e, days e, dialysis thur, sat thur, sat days tue, [...] nasal mcg/actuat spray,suspe spray,suspe ion nasal nsion [place] nsion [place] spray,susp 1 spray 1 spray ension every day every day [place] 1 by nasal by nasal spray route [...] dialysis thur, sat thur, sat days e, ur, sat acetaminoph acetaminoph No 1 BID acetaminop [...] nasal mcg/actuat spray,suspe spray,suspe ion nasal nsion [place] nsion [place] spray,susp 1 spray 1 spray ension every day every day [place] 1 by nasal by nasal spray route [...] nasal mcg/actuat spray,suspe spray,suspe ion nasal nsion [place] nsion [place] spray,susp 1 spray 1 spray ension every day every day [place] 1 by nasal by nasal spray route [...] nasal mcg/actuat spray,suspe spray,suspe ion nasal nsion [place] nsion [place] spray,susp 1 spray 1 spray ension every day every day [place] 1 by nasal by nasal spray route [...] nasal mcg/actuat spray,suspe spray,suspe ion nasal nsion [place] nsion [place] spray,susp 1 spray 1 spray ension every day every day [place] 1 by nasal by nasal spray route [...] nasal mcg/actuat spray,suspe spray,suspe ion nasal nsion [place] nsion [place] spray,susp 1 spray 1 spray ension every day every day [place] 1 by nasal by nasal spray route [...] ergocalcife No 1capsul Q1W ergocalcif [facility]l bandar e(s) [facility] (vitamin (vitamin (vitamin D2) [...] nasal mcg/actuat spray,suspe spray,suspe ion nasal nsion [place] nsion [place] spray,susp 1 spray 1 spray ension every day every day [place] 1 by nasal by nasal spray route [...] dialysis dialysis on non days fri, days e, dialysis thur, sat thur, sat days fri, [...] nasal mcg/actuat spray,suspe spray,suspe ion nasal nsion [place] nsion [place] spray,susp 1 spray 1 spray ension every day every day [place] 1 by nasal by nasal spray route [...] nasal mcg/actuat spray,suspe spray,suspe ion nasal nsion [place] nsion [place] spray,susp 1 spray 1 spray ension every day every day [place] 1 by nasal by nasal spray route [...] nasal mcg/actuat spray,suspe spray,suspe ion nasal nsion [place] nsion [place] spray,susp 1 spray 1 spray ension every day every day [place] 1 by nasal by nasal spray route [...] nasal mcg/actuat spray,suspe spray,suspe ion nasal nsion [place] nsion [place] spray,susp 1 spray 1 spray ension every day every day [place] 1 by nasal by nasal spray route [...] days tue, thur, sat acetaminoph acetaminoph No acetaminop [facility] [...] needed. ergocalcife ergocalcife No ergocalcif [facility] rol [facility] Medical (vitamin (vitamin (vitamin D2) 1,250 D2) [...] nasal mcg/actuat spray,suspe spray,suspe ion nasal nsion [place] nsion [place] spray,susp 1 spray 1 spray ension every day every day [place] 1 by nasal by nasal spray route [...] nasal mcg/actuat spray,suspe spray,suspe ion nasal nsion [place] nsion [place] spray,susp 1 spray 1 spray ension every day every day [place] 1 by nasal by nasal spray route [...] nasal mcg/actuat spray,suspe spray,suspe ion nasal nsion [place] nsion [place] spray,susp 1 spray 1 spray ension every day every day [place] 1 by nasal by nasal spray route [...] nasal mcg/actuat spray,suspe spray,suspe ion nasal nsion [place] nsion [place] spray,susp 1 spray 1 spray ension every day every day [place] 1 by nasal by nasal spray route [...] Immunizations Ordered Filled Immunization Date Status Comments [facility] e Immunization Name Name pneumococcal, pneumococcal, 2021-03-06 [...] 2016-07-03 Completed [facility] Polysaccharide, 00:00:00 [place] [facility] PPSV23 (PNEUMOVAX) Branch Influenza Virus 2016-07-03 Completed Universit y of Vaccine Quad IM 3+ 00:00:00 [facility] Pneumococcal 2016-07-03 Completed University o f Polysaccharide, 00:00:00 [place] [facility] PPSV23 (PNEUMOVAX) Branch Influenza Virus 2016-07-03 Completed [facility]it y of Vaccine [facility] IM 3+ 00:00:00 [facility] Pneumococcal 2016-07-03 Completed University o f Polysaccharide, 00:00:00 [place] [facility] PPSV23 (PNEUMOVAX) Branch Influenza Virus 2016-07-03 Completed Universit y of Vaccine [facility] IM 3+ 00:00:00 [facility] Pneumococcal 2016-07-03 Completed University o f Polysaccharide, 00:00:00 [place] [facility] PPSV23 (PNEUMOVAX) Branch Influenza Virus 2016-07-03 Completed [facility]it y of Vaccine Quad IM 3+ 00:00:00 [facility] Pneumococcal 2016-07-03 Completed University o f Polysaccharide, 00:00:00 [place] [facility] PPSV23 (PNEUMOVAX) Branch Influenza Virus 2016-07-03 Completed Universit y of Vaccine Quad IM 3+ 00:00:00 [facility] Pneumococcal 2016-07-03 Completed University o f Polysaccharide, 00:00:00 [place] [facility] PPSV23 (PNEUMOVAX) Branch Influenza Virus 2016-07-03 Completed Universit y of Vaccine Quad IM 3+ 00:00:00 [facility] Pneumococcal 2016-07-03 Completed University o f Polysaccharide, 00:00:00 [place] [facility] PPSV23 (PNEUMOVAX) Branch Influenza Virus 2016-07-03 Completed Universit y of Vaccine Quad IM 3+ 00:00:00 [facility] Pneumococcal 2016-07-03 Completed University o f Polysaccharide, 00:00:00 [place] [facility] PPSV23 (PNEUMOVAX) Branch Influenza Virus 2016-07-03 Completed Universit y of Vaccine Quad IM 3+ 00:00:00 [facility] Pneumococcal 2016-07-03 Completed University o f Polysaccharide, 00:00:00 [place] [facility] PPSV23 (PNEUMOVAX) Branch Influenza Virus 2016-07-03 Completed Universit y of Vaccine Quad IM 3+ 00:00:00 [facility] Vital Signs Vital Name Observation Time Observation Value Comments Source Systolic blood 2022-05-28 09:31:00 107 mm[Hg] Univer sity of pressure [facility] Diastolic blood 2022-05-28 09:31:00 38 mm[Hg] [facility] Heart rate 2022-05-28 09:31:00 96 /min [facility] Body temperature 2022-05-28 09:31:00 37.11 Lazara [facility] 2022-05-28 09:31:00 18 /min [facility] Oxygen saturation in 2022-05-28 09:31:00 96 /min University of Arterial blood by [facility] Pulse oximetry Branch Body weight 2022-05-27 23:46:00 71 kg [facility] [place] [facility] [place] BMI 2022-05-27 23:46:00 23.80 kg/m2 [facility] [place] [facility] [place] Body height 2022-05-15 21:25:00 172.7 cm Universi ty [facility] Systolic blood 2022-05-22 14:30:00 115 mm[Hg] Univer sity of pressure [facility] Diastolic blood 2022-05-22 14:30:00 80 mm[Hg] Unive rsity of pressure [facility] Heart rate 2022-05-22 14:30:00 82 /min Universi ty of [facility] Body temperature 2022-05-22 14:30:00 36.22 Lazara Univ ersity of [facility] Respiratory rate 2022-05-22 14:30:00 20 /min [facility] O[facility] in 2022-05-22 10:17:00 99 /min University of Arterial blood by [facility] Pulse oximetry Branch Body weight 2022-05-21 17:05:00 69 kg Universi ty [facility] BMI 2022-05-21 17:05:00 23.97 kg/m2 Universi ty [facility] Body height 2022-05-15 21:25:[address] BP Diastolic 2022-04-30 00:00:00 89 mm[Hg] [facility] Height 2022-04-30 00:00:00 66 [in_i] [facility] BMI (Body Mass 2022-04-30 00:00:00 27.8 kg/m2 [facility] Index) BP Systolic 2022-04-30 00:00:00 155 mm[Hg] [facility] Body Weight 2022-04-30 00:00:00 2752 [oz_av] [facility] BP Diastolic 2022-04-16 00:00:00 82 mm[Hg] [facility] Height 2022-04-16 00:00:00 66 [in_i] [facility] BMI (Body Mass 2022-04-16 00:00:00 27.1 kg/m2 [facility] Index) BP Systolic 2022-04-16 00:00:00 147 mm[Hg] [facility] Body Weight 2022-04-16 00:00:00 2688 [oz_av] [facility] BP Diastolic 2022-04-02 00:00:00 97 mm[Hg] [facility] Height 2022-04-02 00:00:00 66 [in_i] [facility] BMI (Body Mass 2022-04-02 00:00:00 28.4 kg/m2 [facility] Index) BP Systolic 2022-04-02 00:00:00 157 mm[Hg] [facility] Body Weight 2022-04-02 00:00:00 2816 [oz_av] [facility] BP Diastolic 2022-03-12 00:00:00 88 mm[Hg] [facility] Height 2022-03-12 00:00:00 66 [in_i] [facility] BMI (Body Mass 2022-03-12 00:00:00 26.8 kg/m2 [facility] Index) BP Systolic 2022-03-12 00:00:00 139 mm[Hg] [facility] Body Weight 2022-03-12 00:00:00 2656 [oz_av] [facility] BP Diastolic 2022-03-05 00:00:00 85 mm[Hg] [facility] Height 2022-03-05 00:00:00 66 [in_i] [facility] BMI (Body Mass 2022-03-05 00:00:00 27.8 kg/m2 [facility] Index) BP Systolic 2022-03-05 00:00:00 158 mm[Hg] [facility] Body Weight 2022-03-05 00:00:00 2752 [oz_av] [facility] BP Diastolic 2022-02-19 00:00:00 79 mm[Hg] [facility] Height 2022-02-19 00:00:00 66 [in_i] [facility] BMI (Body Mass 2022-02-19 00:00:00 27.9 kg/m2 [facility] Index) BP Systolic 2022-02-19 00:00:00 152 mm[Hg] [facility] Body Weight 2022-02-19 00:00:00 2768 [oz_av] [facility] BP Diastolic 2022-02-05 00:00:00 80 mm[Hg] [facility] Height 2022-02-05 00:00:00 66 [in_i] [facility] BMI (Body Mass 2022-02-05 00:00:00 27.8 kg/m2 [facility] Index) BP Systolic 2022-02-05 00:00:00 144 mm[Hg] [facility] Body Weight 2022-02-05 00:00:00 2752 [oz_av] [facility] BP Diastolic 2022-01-18 00:00:00 77 mm[Hg] [facility] Height 2022-01-18 00:00:00 66 [in_i] [facility] BMI (Body Mass 2022-01-18 00:00:00 27.3 kg/m2 [facility] Index) BP Systolic 2022-01-18 00:00:00 138 mm[Hg] [facility] Body Weight 2022-01-18 00:00:00 2704 [oz_av] [facility] BP Diastolic 2022-01-04 00:00:00 89 mm[Hg] [facility] Height 2022-01-04 00:00:00 66 [in_i] [facility] BMI (Body Mass 2022-01-04 00:00:00 28.1 kg/m2 [facility] Index) BP Systolic 2022-01-04 00:00:00 149 mm[Hg] [facility] Body Weight 2022-01-04 00:00:00 2784 [oz_av] [facility] Systolic blood 2021-12-25 18:44:00 146 mm[Hg] Univer sity of pressure [facility] Diastolic blood 2021-12-25 18:44:00 96 mm[Hg] Unive rsity of pressure [facility] Heart rate 2021-12-25 18:44:00 70 /min [facility] Body height 2021-12-25 18:34:00 172.7 cm [facility] Body weight 2021-12-25 18:34:00 80.423 kg [facility] BMI 2021-12-25 18:34:00 26.96 kg/m2 [facility] Oxygen saturation in 2021-12-25 18:34:00 97 /min [facility] Arterial blood by [facility] Pulse oximetry Branch BP Diastolic 2021-12-25 00:00:00 75 mm[Hg] [facility] Height 2021-12-25 00:00:00 66 [in_i] [facility] BMI (Body Mass 2021-12-25 00:00:00 28.4 kg/m2 [facility]) BP Systolic 2021-12-25 00:00:00 147 mm[Hg] [facility] Body Weight 2021-12-25 00:00:00 2816 [oz_av] [facility] BP Diastolic 2021-12-11 00:00:00 89 mm[Hg] [facility] Height 2021-12-11 00:00:00 66 [in_i] [facility] BMI (Body Mass 2021-12-11 00:00:00 28.2 kg/m2 [facility]) BP Systolic 2021-12-11 00:00:00 139 mm[Hg] [facility] Body Weight 2021-12-11 00:00:00 2792 [oz_av] [facility] BP Diastolic 2021-11-23 00:00:00 67 mm[Hg] [facility] Height 2021-11-23 00:00:00 66 [in_i] [facility] BMI (Body Mass 2021-11-23 00:00:00 27.8 kg/m2 [facility]) BP Systolic 2021-11-23 00:00:00 134 mm[Hg] [facility] Body Weight 2021-11-23 00:00:00 2752 [oz_av] [facility] BP Diastolic 2021-11-20 00:00:00 85 mm[Hg] [facility] Height 2021-11-20 00:00:00 66 [in_i] [facility] BMI (Body Mass 2021-11-20 00:00:00 27.9 kg/m2 [facility]) BP Systolic 2021-11-20 00:00:00 149 mm[Hg] [facility] Body Weight 2021-11-20 00:00:00 2768 [oz_av] [facility] BP Diastolic 2021-11-08 00:00:00 95 mm[Hg] [facility] Height 2021-11-08 00:00:00 66 [in_i] [facility] BMI (Body Mass 2021-11-08 00:00:00 27.8 kg/m2 [facility] Index) BP Systolic 2021-11-08 00:00:00 165 mm[Hg] [facility] Body Weight 2021-11-08 00:00:00 2752 [oz_av] [facility] BP Diastolic 2021-11-02 00:00:00 75 mm[Hg] [facility] Height 2021-11-02 00:00:00 66 [in_i] [facility] BMI (Body Mass 2021-11-02 00:00:00 27.4 kg/m2 [facility] Index) BP Systolic 2021-11-02 00:00:00 138 mm[Hg] [facility] Body Weight 2021-11-02 00:00:00 2720 [oz_av] [facility] BP Diastolic 2021-10-19 00:00:00 77 mm[Hg] [facility] Height 2021-10-19 00:00:00 66 [in_i] [facility] BMI (Body Mass 2021-10-19 00:00:00 28.2 kg/m2 [facility] Index) BP Systolic 2021-10-19 00:00:00 136 mm[Hg] [facility] Body Weight 2021-10-19 00:00:00 2800 [oz_av] [facility] BP Diastolic 2021-10-12 00:00:00 74 mm[Hg] [facility] Height 2021-10-12 00:00:00 66 [in_i] [facility] BMI (Body Mass 2021-10-12 00:00:00 28.2 kg/m2 [facility] Index) BP Systolic 2021-10-12 00:00:00 139 mm[Hg] [facility] Body Weight 2021-10-12 00:00:00 2800 [oz_av] [facility] BP Diastolic 2021-10-02 00:00:00 75 mm[Hg] [facility] Height 2021-10-02 00:00:00 66 [in_i] [facility] BMI (Body Mass 2021-10-02 00:00:00 29.4 kg/m2 [facility]) BP Systolic 2021-10-02 00:00:00 139 mm[Hg] [facility] Body Weight 2021-10-02 00:00:00 2912 [oz_av] [facility] BP Diastolic 2021-09-26 00:00:00 89 mm[Hg] [facility] Height 2021-09-26 00:00:00 66 [in_i] [facility] BMI (Body Mass 2021-09-26 00:00:00 29.4 kg/m2 [facility]) BP Systolic 2021-09-26 00:00:00 135 mm[Hg] [facility] Body Weight 2021-09-26 00:00:00 2912 [oz_av] [facility] BP Diastolic 2021-09-13 00:00:00 92 mm[Hg] [facility] Height 2021-09-13 00:00:00 66 [in_i] [facility] BMI (Body Mass 2021-09-13 00:00:00 13.2 kg/m2 [facility]) BP Systolic 2021-09-13 00:00:00 153 mm[Hg] [facility] Body Weight 2021-09-13 00:00:00 1304 [oz_av] [facility] BP Diastolic 2021-09-04 00:00:00 78 mm[Hg] [facility] Height 2021-09-04 00:00:00 66 [in_i] [facility] BMI (Body Mass 2021-09-04 00:00:00 28.9 kg/m2 [facility] Index) BP Systolic 2021-09-04 00:00:00 136 mm[Hg] [facility] Body Weight 2021-09-04 00:00:00 2864 [oz_av] [facility] BP Diastolic 2021-08-22 00:00:00 77 mm[Hg] [facility] Height 2021-08-22 00:00:00 66 [in_i] [facility] BMI (Body Mass 2021-08-22 00:00:00 29.5 kg/m2 [facility] Index) BP Systolic 2021-08-22 00:00:00 134 mm[Hg] [facility] Body Weight 2021-08-22 00:00:00 2928 [oz_av] [facility] BP Diastolic 2021-08-14 00:00:00 66 mm[Hg] [facility] Height 2021-08-14 00:00:00 66 [in_i] [facility] BMI (Body Mass 2021-08-14 00:00:00 29.5 kg/m2 [facility] Index) BP Systolic 2021-08-14 00:00:00 136 mm[Hg] [facility] Body Weight 2021-08-14 00:00:00 2928 [oz_av] [facility] BP Diastolic 2021-08-10 00:00:00 75 mm[Hg] [facility] Height 2021-08-10 00:00:00 66 [in_i] [facility] BMI (Body Mass 2021-08-10 00:00:00 29.2 kg/m2 [facility] Index) BP Systolic 2021-08-10 00:00:00 131 mm[Hg] [facility] Body Weight 2021-08-10 00:00:00 2896 [oz_av] [facility] BP Diastolic 2021-07-31 00:00:00 78 mm[Hg] [facility] Height 2021-07-31 00:00:00 66 [in_i] [facility] BMI (Body Mass 2021-07-31 00:00:00 28.6 kg/m2 [facility]) BP Systolic 2021-07-31 00:00:00 137 mm[Hg] [facility] Body Weight 2021-07-31 00:00:00 2832 [oz_av] [facility] BP Diastolic 2021-07-27 00:00:00 75 mm[Hg] [facility] Height 2021-07-27 00:00:00 66 [in_i] [facility] BMI (Body Mass 2021-07-27 00:00:00 29.7 kg/m2 [facility] Index) BP Systolic 2021-07-27 00:00:00 133 mm[Hg] [facility] Body Weight 2021-07-27 00:00:00 2944 [oz_av] [facility] BP Diastolic 2021-07-19 00:00:00 88 mm[Hg] [facility] Height 2021-07-19 00:00:00 66 [in_i] [facility] BMI (Body Mass 2021-07-19 00:00:00 29.5 kg/m2 [facility] Index) BP Systolic 2021-07-19 00:00:00 140 mm[Hg] [facility] Body Weight 2021-07-19 00:00:00 2928 [oz_av] [facility] BP Diastolic 2021-07-12 00:00:00 80 mm[Hg] [facility] Height 2021-07-12 00:00:00 66 [in_i] [facility] BMI (Body Mass 2021-07-12 00:00:00 29.5 kg/m2 [facility] Index) BP Systolic 2021-07-12 00:00:00 136 mm[Hg] [facility] Body Weight 2021-07-12 00:00:00 2928 [oz_av] [facility] Height 2019-02-20 00:00:00 68 [in_i] [facility] Height 2018-11-13 00:00:00 68 [in_i] [facility] Height 2018-10-25 00:00:00 68 [in_i] [place] [facility] Height 2018-09-04 00:00:00 68 [in_i] [place] [facility] Systolic blood 2022-05-17 17:35:00 121 mm[Hg] Univer sity of pressure [facility] Diastolic blood 2022-05-17 17:35:00 59 mm[Hg] Unive rsity of [facility] Heart rate 2022-05-17 17:35:00 74 /min [facility] Body temperature 2022-05-17 17:35:00 35.72 Lazara [facility] Respiratory rate 2022-05-17 17:35:00 18 /min [facility] Oxygen saturation in 2022-05-17 17:35:00 100 /min [facility] Arterial blood by [facility] Pulse oximetry [place] Body weight 2022-05-17 00:46:00 69 kg [facility] BMI 2022-05-17 00:46:00 23.13 kg/m2 [facility] Body height 2022-05-15 21:25:00 172.7 cm [facility] Body height 2022-01-22 19:04:00 172.7 cm [facility] Body weight 2022-01-22 19:04:00 78.2 kg [facility] BMI 2022-01-22 19:04:00 26.21 kg/m2 [facility] Oxygen saturation in 2022-01-22 19:04:00 95 /min [facility] Arterial blood by Pulse oximetry Systolic blood 2022-01-22 19:04:00 146 mm[Hg] [facility] pressure Diastolic blood 2022-01-22 19:04:00 81 mm[Hg] [facility] pressure Heart rate 2022-01-22 19:04:00 85 /min [facility] Body temperature 2022-01-22 19:04:00 36.56 Lazara [facility] Oxygen saturation in 2021-12-18 20:47:00 98 /min [facility] Arterial blood by Pulse oximetry Systolic blood 2021-12-18 20:16:00 152 mm[Hg] [facility] pressure Diastolic blood 2021-12-18 20:16:00 75 mm[facility]Hg[facility] pressure Heart rate 2021-12-18 20:16:00 82 /min [facility] Body temperature 2021-12-18 16:16:11 36.72 Lazara [facility] Respiratory rate 2021-12-18 16:16:11 18 /min [facility] Body weight 2021-12-18 11:11:31 85.14 kg [facility] BMI 2021-12-18 11:11:31 28.54 kg/m2 [facility] Body height 2021-12-13 19:32:00 172.7 cm [facility] Procedures Procedure Date / Time Performing Clinician Source Performed CBC WITHOUT DIFF 2022-05-28 12:52:00 [facility] XR CHEST 1 VW 2022-05-27 12:31:00 [facility] PHOSPHORUS 2022-05-27 11:56:00 [facility] MAGNESIUM 2022-05-27 11:56:00 [facility] BASIC METABOLIC PANEL (NA, 2022-05-27 11:56:00 [facility] K, CL, CO2, GLUCOSE, BUN, Medica l [place] CREATININE, [place]) CBC WITHOUT DIFF 2022-05-27 11:56:00 [facility] SERUM DRUG (IMMUNOASSAY) - 2022-05-26 22:11:00 Shainka Carranza [facility] COMPREHENSIVE DRUG SCREEN Medica l Branch PHOSPHORUS 2022-05-26 11:48[facility]00 [facility]22-05-26 11:48:00 [facility] BASIC METABOLIC PANEL (NA, 2022-05-26 11:48[facility]00 [facility], CO2, GLUCOSE, BUN, [facility] CREATININE, [place]) CBC WITH DIFF 2022-05-26 11:48[facility]00 [facility]W 2022-05-25 21:48:00 [facility] CBC WITH DIFF 2022-05-25 21:30:00 [facility] EXTRA TUBE DK. GREEN 2022-05-25 21:27:00 Jean-Claude Cohen [facility] PHOSPHORUS 2022-05-25 21:24:00 [facility] MAGNESIUM 2022-05-25 21:24:00 [facility] TROPONIN I 2022-05-25 21:24:00 [facility] BASIC METABOLIC PANEL (NA, 2022-05-25 21:24:00 Mary Kay Hutosn [facility] K, CL, CO2, GLUCOSE, BUN, Medica l Branch CREATININE, [place]) D-DIMER 2022-05-25 21:24:00 [facility] ABG+COOX+NA+K+GLU+CA2+ 2022-05-25 21:10:00 Jean-Claude Cohen [facility] HB ECG ROUTINE & RHYTHM 2022-05-25 21:09:50 [facility] POCT GLUCOSE (AUTOMATED) 2022-05-25 20:48:00 Jean-Claude Cohen [facility] PREPARE PACKED RBC 2022-05-25 20:12:38 Vickie Simon [facility] BASIC METABOLIC PANEL (NA, 2022-05-25 18:54:00 Jamari Simon [facility] K, CL, CO2, GLUCOSE, BUN, Kayla Medica l Branch CREATININE, CA) CBC WITH DIFF 2022-05-25 18:54:00 Vickie Simon [facility] XR CHEST 1 VW 2022-05-25 12:21:00 Vickie Simon [facility] PHOSPHORUS 2022-05-25 11:11:00 Vickie Simon [facility] MAGNESIUM 2022-05-25 11:11:00 Vickie Simon [facility] BASIC METABOLIC PANEL (NA, 2022-05-25 11:11:00 Jamari Simon [facility] K, CL, CO2, GLUCOSE, BUN, Kayla Medica l Branch CREATININE, CA) CBC WITH DIFF 2022-05-25 11:11:[address] [facility]W 2022-05-24 12:33:00 Vickie Simon [facility] PHOSPHORUS 2022-05-24 11:26:00 Angel [facility] MAGNESIUM 2022-05-24 11:26:00 [facility] BASIC METABOLIC PANEL (NA, 2022-05-24 11:26:00 Mike Ortiz [facility] K, CL, CO2, GLUCOSE, BUN, Medica l Branch CREATININE, CA) CBC WITHOUT DIFF 2022-05-24 11:25:00 [facility] POCT GLUCOSE (AUTOMATED) 2022-05-24 10:48:00 Jean-Claude Cohen [facility] POCT GLUCOSE (AUTOMATED) 2022-05-24 10:19:00 Jean-Claude Cohen [facility] XR CHEST 1 VW 2022-05-23 11:06:00 [facility] XR CHEST 1 2022-05-23 11:06:00 [facility] XR CHEST 1 2022-05-22 20:50:00 [facility] XR CHEST 1 2022-05-22 20:50:00 [facility] TISSUE 2022-05-22 17:11:00 Jean-Claude Cohen [facility] CULTURE(AEROBIC/ANAEROBIC) [facility] FUNGUS (ROUTINE) CULTURE 2022-05-22 17:11:00 [facility] CULT[facility] 2022-05-22 17:11:00 Jean-Claude Cohen versity [facility] TISSUE 2022-05-22 17:11:00 Jean-Claude Cohen [facility] CULTURE(AEROBIC/ANAEROBIC) [facility] Branch DECORTICATION 2022-05-22 14:30:00 Jean-Claude Cohen [facility] ROBOT-ASSISTED LUNG Medical Bran ch DECORTICATION 2022-05-22 14:30:00 Jean-Claude Cohen [facility] ROBOT-ASSISTED LUNG Medical Bran ch HB ABO GROUPING 2022-05-22 11:55:00 [facility] 2022-05-22 11:55:00 [facility]US 2022-05-22 11:54:[address] [facility] MAGN[facility]UM 2022-05-22 11:54:00 Alfred [facility] BASIC METABOLIC PANEL (NA, 2022-05-22 11:54:00 Jamari Simon [facility] K, CL, CO2, GLUCOSE, BUN, Kayla Medica l Branch CREATININE, CA) CBC WITH DIFF 2022-05-22 11:54:00 Aurelia Simonbeth [facility] PROTHROMBIN TIME / INR 2022-05-22 11:54:00 Vickie Simon [facility] PHOSPHORUS 2022-05-22 11:54:00 Vickie Simon [facility] MAGNESIUM 2022-05-22 11:54:00 Vickie Simon [facility] BASIC METABOLIC PANEL (NA, 2022-05-22 11:54:00 Jamari Simon [facility] K, CL, CO2, GLUCOSE, BUN, Kayla Medica [facility] CREATININE, CA) CBC WITH DIFF 2022-05-22 11:54:00 Vickie Simon [facility] PROTHROMBIN TIME / INR 2022-05-22 11:54:00 Vickie Simon [facility] CBC WITHOUT DIFF 2022-05-20 20:04:00 Angel [facility] PROTHROMBIN TIME / INR 2022-05-20 20:04:00 Angel [facility] CBC WITHOUT DIFF 2022-05-20 20:04:00 Angel [facility] PROTHROMBIN TIME / INR 2022-05-20 20:04:00 Mike Ortiz [facility] ABDOMEN PELVIS W 2022-05-20 17:53:46 Loghin, Alberto [facility] CONTRAST [facility] CT ABDOMEN PELVIS W 2022-05-20 17:53:46 Alberto Amos [facility] CONTRAST [facility] XR CHEST 2 VW 2022-05-20 16:09:00 Aldo [facility] XR CHEST 2 VW 2022-05-20 16:09:00 Jean-Claude Cohen [facility] ABORH CONFIRMATION (LAB 2022-05-19 20:00:00 [facility] ONLY) Medical Branch ABORH CONFIRMATION (LAB 2022-05-19 20:00:00 [facility] ONLY) [facility] HB ABO GROUPING 2022-05-19 18:05:00 [facility] HB ABO GROUPING 2022-05-19 18:05:00 [facility] PHOSPHORUS 2022-05-19 11:23:00 [facility] MAGNESIUM 2022-05-19 11:23:00 Logvonda [facility] BASIC METABOLIC PANEL (NA, 2022-05-19 11:23:00 Alberto Amos [facility] K, CL, CO2, GLUCOSE, BUN, Medica l Branch CREATININE, CA) INTACT PTH CALCIUM GROUP 2022-05-19 11:23:00 Alberto Amos [facility] PHOSPHORUS 2022-05-19 11:23:00 Alberto Amos [facility] MAGNESIUM 2022-05-19 11:23:00 [facility] BASIC METABOLIC PANEL (NA, 2022-05-19 11:23:00 Alberto Amos [facility] K, CL, CO2, GLUCOSE, BUN, Medica l [place] CREATININE, CA) INTACT PTH CALCIUM GROUP 2022-05-19 11:23:00 Alberto Amos [facility] CT THORAX WO CONTRAST 2022-05-19 04:22:28 Alberto Amos [facility] CT THORAX WO CONTRAST 2022-05-19 04:22:28 Loghin, [facility] XR CHEST 1 VW 2022-05-18 15:09:00 Dandre [facility] XR CHEST 1 VW 2022-05-18 15:09:00 Dandre [facility] COMP. METABOLIC PANEL 2022-05-17 11:28:00 Antonia Nation [facility] ([id number]) Medical Branch CBC WITH DIFF 2022-05-17 11:28:00 [facility] 2022-05-17 11:28:00 Dandre [facility] COMP. METABOLIC PANEL 2022-05-17 11:28:00 [id number] CBC WITH DIFF 2022-05-17 11:28:00 [facility] 2022-05-17 11:28:00 Dandre [facility] COMP. METABOLIC PANEL 2022-05-17 11:28:00 Antonia Nation [facility] ([id number]) Medical Branch CBC WITH DIFF 2022-05-17 11:28:00 Antonia Nation [facility] CT ANGIOGRAPHY, DOUBLE 2022-05-16 16:05:44 Antonia Nation [facility] RULE OUT (THORACIC AO / Medical Branch PE) CT ANGIOGRAPHY, DOUBLE 2022-05-16 16:05:44 Antonia Nation [facility] RULE OUT (THORACIC AO / Medical Branch PE) CT ANGIOGRAPHY, DOUBLE 2022-05-16 16:05:44 Antonia Nation [facility] RULE OUT (THORACIC AO / Medical Branch PE) BASIC METABOLIC PANEL (NA, 2022-05-16 11:17:00 Antonia Nation [facility] K, CL, CO2, GLUCOSE, BUN, Medica l Branch CREATININE, CA) CBC WITH DIFF 2022-05-16 11:17:00 Antonia Nation [facility] BASIC METABOLIC PANEL (NA, 2022-05-16 11:17:00 Rios, Antonia [facility] [place] K, CL, CO2, GLUCOSE, BUN, Medica l Branch CREATININE, CA) CBC WITH DIFF 2022-05-16 11:17:00 [facility] BASIC [facility]OLIC PANEL (NA, 2022-05-16 11:17:00 RiosAyaza [facility] [place] K, CL, CO2, GLUCOSE, BUN, Medica l Branch CREATININE, CA) CBC WITH DIFF 2022-05-16 11:17:00 [facility]PLAC[facility] COMPLETE 2022-05-16 00:03:00 [facility] [place] TUNNELED CENTRALLY Medical Branc h INSERTED CVC WITHOUT PORT/PUMP SAME ACCESS IR REPLACEMENT COMPLETE 2022-05-16 00:03:00 [facility] [place] TUNNEL[facility] CENTRALLY Medical Branc h INSERTED CVC WITHOUT PORT/PUMP SAME ACCESS IR REPLACEMENT COMPLETE 2022-05-16 00:03:00 Antonia Nation [facility] [place] TUNNELED CENTRALLY Medical Branc h INSERTED CVC WITHOUT PORT/PUMP SAME ACCESS BASIC METABOLIC PANEL (NA, 2022-05-15 11:05:00 RiosAyaza [facility] [place] K, CL, CO2, GLUCOSE, BUN, Medica l Branch CREATININE, CA) MAGNESIUM 2022-05-15 11:05:00 Dandre [facility] MAGNESIUM 2022-05-15 11:05:00 Dandre [facility] BASIC METABOLIC PANEL (NA, 2022-05-15 11:05:00 RiosAyaza [facility] [place] K, CL, CO2, GLUCOSE, BUN, Medica l Branch CREATININE, CA) MAGNESIUM 2022-05-15 11:05:00 Dandre [facility] BASIC METABOLIC PANEL (NA, 2022-05-15 11:05:00 RiosAprilAntonia [facility] [place] K, CL, CO2, GLUCOSE, BUN, Medica l Branch CREATININE, CA) BASIC METABOLIC PANEL (NA, 2022-05-14 22:08:00 RiosAprilAntonia U [facility] [place] K, CL, [...] CA) BASIC METABOLIC PANEL (NA, 2022-05-14 10:43:00 Rios, Antonia [facility] [place] K, CL, CO2, GLUCOSE, BUN, Medica l Branch CREATININE, CA) CBC WITH DIFF 2022-05-14 10:43:00 Rios [facility] MAGNESIUM 2022-05-14 10:43:00 Rios [facility] MAGNESIUM 2022-05-14 10:43:00 Rios [facility] BASIC METABOLIC PANEL (NA, 2022-05-14 10:43:00 RiosAntonia U [facility] [place] K, CL, CO2, GLUCOSE, BUN, Medica l Branch CREATININE, CA) CBC WITH DIFF 2022-05-14 10:43:00 Rios [facility] MAGNESIUM 2022-05-14 10:43:00 Rios [facility] BASIC METABOLIC PANEL (NA, 2022-05-14 10:43:00 Antonia Nation [facility] [place] K, CL, CO2, GLUCOSE, BUN, Medica l Branch CREATININE, CA) CBC WITH DIFF 2022-05-14 10:43:00 Rios [facility] XR CHEST 1 VW 2022-05-14 04:09:52 Abbi [facility] XR CHEST 1 VW 2022-05-14 04:09:52 Abbi [facility] XR CHEST 1 VW 2022-05-14 04:09:52 Abbi [facility] GLUCOSE 2022-05-13 22:41:00 Delmi [facility] LACTATE DEHYDROGENASE 2022-05-13 22:41:00 [facility] PROTEIN TOTAL 2022-05-13 22:41:00 Delmi [facility] GLUCOSE 2022-05-13 22:41:00 Delmi [facility] PROTEIN TOTAL 2022-05-13 22:41:00 Delmi [facility] LACTATE DEHYDROGENASE 2022-05-13 22:41:00 [facility]mi [facility] GLUCOSE 2022-05-13 22:41:00 Delmi [facility] PROTEIN TOTAL 2022-05-13 22:41:00 Delmi [facility] LACTATE DEHYDROGENASE 2022-05-13 22:41:00 Delmi [facility] XR CHEST 1 2022-05-13 17:52:00 Weston [facility] XR CHEST 1 2022-05-13 17:52:00 Weston [facility] XR CHEST 1 2022-05-13 17:52:00 Weston [facility] PH, BODY FLUID 2022-05-13 17:30:00 Delmi [facility] BODY FLUID FUNGUS CULTURE 2022-05-13 17:30:00 Wesley Ontiveros [facility] (BACTEC BOTTLE) [facility] PH, BODY FLUID 2022-05-13 17:30:00 Delmi [facility] BODY FLUID FUNGUS CULTURE 2022-05-13 17:30:00 Wesley Ontiveros [facility] (BACTEC BOTTLE) [facility] PH, BODY FLUID 2022-05-13 17:30:00 Delmi [facility] BODY FLUID FUNGUS CULTURE 2022-05-13 17:30:00 Wesley Ontiveros [facility] (BACTEC BOTTLE) [facility] BODY FLUID MANUAL DIFF 2022-05-13 15:12:00 Delmi [facility] CYTO PLEURAL FLUID 2022-05-13 15:12:00 Awad [facility] BODY FLUID (BACTEC BOTTLE) 2022-05-13 15:12:00 Wesley Ontiveros [facility] BODY FLUID DIRECT COUNT 2022-05-13 15:12:00 Delmi [facility] BODY FLUID (BACTEC BOTTLE) 2022-05-13 15:12:00 Wesley Ontiveros [facility] CYTO PLEURAL FLUID 2022-05-13 15:12:00 Delmi [facility] BODY FLUID DIRECT COUNT 2022-05-13 15:12:00 Awad [facility] BODY FLUID (BACTEC BOTTLE) 2022-05-13 15:12:00 Wesley Ontiveros [facility] CYTO PLEURAL FLUID 2022-05-13 15:12:00 Delmi [facility] SERUM DRUG (IMMUNOASSAY) - 2022-05-13 11:19:00 Alberto Amos [facility] COMPREHENSIVE DRUG SCREEN Medica l Branch COMP. METABOLIC PANEL 2022-05-13 11:19:00 Antonia Nation [facility] ([id number]) Medical [place] PHOSPHORUS 2022-05-13 11:19:00 Antonia Nation [facility] PROTHROMBIN TIME / INR 2022-05-13 11:19:00 Antonia Nation [facility] ACTIVATED PARTIAL THRMPLAS 2022-05-13 11:19:00 Antonia Nation [facility] PHOSPHORUS 2022-05-13 11:19:00 Antonia Nation [facility] COMP. METABOLIC PANEL 2022-05-13 11:19:00 Antonia Nation [facility] ([id number]) [facility] SERUM DRUG (IMMUNOASSAY) - 2022-05-13 11:19:00 Alberto Amos [facility] COMPREHENSIVE DRUG SCREEN Medica l Branch PROTHROMBIN TIME / INR 2022-05-13 11:19:00 [facility] ACTIVATED PARTIAL THRMPLAS 2022-05-13 11:19:00 Antonia Nation [facility] PHOSPHORUS 2022-05-13 11:19:00 Antonia Nation [facility] COMP. METABOLIC PANEL 2022-05-13 11:19:00 Antonia Nation [facility] ([id number]) [facility] SERUM DRUG (IMMUNOASSAY) - 2022-05-13 11:19:00 [facility]IVE [facility]UG SCREEN Medica l [place] PROTHROMBIN TIME / INR 2022-05-13 11:19:00 Antonia Nation [facility] ACTIVATED PARTIAL THRMPLAS 2022-05-13 11:19:00 [facility]AST 2022-05-12 15:32:00 Antonia Nation [facility] CT THORAX W CONTRAST 2022-05-12 15:32:00 Antonia Nation [facility] CT THORAX W CONTRAST 2022-05-12 15:32:00 Antonia Nation [facility] CBC WITH DIFF 2022-05-11 10:43:00 Alberto Amos [facility] BASIC METABOLIC PANEL (NA, 2022-05-11 10:43:00 [facility] K, CL, CO2, GLUCOSE, BUN, Medica l Branch CREATININE, CA) MAGNESIUM 2022-05-11 10:43:00 Alberto Amos [facility] PHOSPHORUS 2022-05-11 10:43:00 Antonia Nation [facility] PHOSPHORUS 2022-05-11 10:43:00 Antonia Nation [facility] MAGNESIUM 2022-05-11 10:43:00 Alberto Amos [facility] BASIC METABOLIC PANEL (NA, 2022-05-11 10:43:00 Alberto Amos [facility] K, CL, CO2, GLUCOSE, BUN, Medica l Branch CREATININE, CA) CBC WITH DIFF 2022-05-11 10:43:00 [facility] 2022-05-11 10:43:00 Antonia Nation [facility] MAGNESIUM 2022-05-11 10:43:00 Dandre [facility] BASIC METABOLIC PANEL (NA, 2022-05-11 10:43:00 [facility], CL, CO2, GLUCOSE, BUN, Medica l Branch CREATININE, CA) CBC WITH DIFF 2022-05-11 10:43:00 Dandre [facility] TRANSTHORACIC ECHO (TTE) 2022-05-10 17:06:05 Abbi [facility] TRANSTHORACIC ECHO (TTE) 2022-05-10 17:06:05 Abbi [facility] TRANSTHORACIC ECHO (TTE) 2022-05-10 17:06:05 Abbi [facility] MRSA / MSSA SCREEN BY PCR, 2022-05-10 12:27:00 Frida [facility] [place] MRSA / MSSA SCREEN BY PCR, 2022-05-10 12:27:00 Frida [facility] [place] MRSA / MSSA SCREEN BY PCR, 2022-05-10 12:27:00 Frida [facility] [place] VITAMIN D, 25-OH 2022-05-10 12:20:00 Abbi [facility] VITAMIN D, 25-OH 2022-05-10 12:20:00 Abbi, [facility] VITAMIN D, 25-OH 2022-05-10 12:20:00 Abbi [facility] BASIC METABOLIC PANEL (NA, 2022-05-10 12:19:00 [facility], CL, CO2, GLUCOSE, BUN, Medica l Branch CREATININE, CA) MAGNESIUM 2022-05-10 12:19:00 Abbi [facility] MAGNESIUM 2022-05-10 12:19:00 Abbi, [facility] BASIC METABOLIC PANEL (NA, 2022-05-10 12:19:00 Abbi, [facility], CL, CO2, GLUCOSE, BUN, Medica l Branch CREATININE, CA) MAGNESIUM 2022-05-10 12:19:00 Abbi, [facility] BASIC METABOLIC PANEL (NA, 2022-05-10 12:19:00 Abbi, [facility] K, CL, CO2, GLUCOSE, BUN, Medica l Branch CREATININE, CA) HEPATITIS B SURFACE 2022-05-10 07:11:00 RawSilvino mastDao [facility] ANTIBODY [facility] HBC ANTIBODY (IGM & IGG) 2022-05-10 07:11:00 RawSilvino mastDao [facility] CA-125 2022-05-10 07:11:00 LogJonathan [facility] CARCINOEMBRYONIC ANTIGEN 2022-05-10 07:11:00 LogAlberto ferrari [facility] CARCINOEMBRYONIC ANTIGEN 2022-05-10 07:11:00 LogAlberto ferrari [facility] CA-125 2022-05-10 07:11:00 LogJonathan [facility] HEPATITIS B SURFACE 2022-05-10 07:11:00 RawSilvino mastDao [facility] ANTIBODY [facility] HBC ANTIBODY (IGM & IGG) 2022-05-10 07:11:00 RawSilvino mastDao [facility] CARCINOEMBRYONIC ANTIGEN 2022-05-10 07:11:00 LoghinAlberto [facility] CA-125 2022-05-10 07:11:00 LoghiJonathan [facility] HEPATITIS B SURFACE 2022-05-10 07:11:00 RawSilvino mastDao [facility] ANTIBODY [facility] HBC ANTIBODY (IGM & IGG) 2022-05-10 07:11:00 RawSilvino mastDao [facility] ROUTINE & RHYTHM 2022-05-10 04:47:45 Abbi, [facility] HB ECG ROUTINE & RHYTHM 2022-05-10 04:47:45 Abbi, [facility] HB ECG ROUTINE & RHYTHM 2022-05-10 04:47:45 Abbi, [facility] ACUTE CARE VENOUS BLOOD 2022-05-10 04:26:00 Abbi, [facility] ACUTE CARE VENOUS BLOOD 2022-05-10 04:26:00 Abbi, [facility] ACUTE CARE VENOUS BLOOD 2022-05-10 04:26:00 Abbi, [facility] CBC WITH DIFF 2022-05-10 04:13:00 Abbi, [facility] BASIC METABOLIC PANEL (NA, 2022-05-10 04:13:00 Abbi, [facility] K, CL, CO2, GLUCOSE, BUN, Medica l Branch CREATININE, CA) MAGNESIUM 2022-05-10 04:13:00 Abbi, [facility] PHOSPHORUS 2022-05-10 04:13:00 Abbi, [facility] HEPATITIS B SURFACE 2022-05-10 04:13:00 Feliberto Galicia [facility] ANTIGEN [facility] PHOSPHORUS 2022-05-10 04:13:00 Abbi, [facility] MAGNESIUM 2022-05-10 04:13:00 Abbi, [facility] BASIC METABOLIC PANEL (NA, 2022-05-10 04:13:00 Abbi, [facility] K, CL, CO2, GLUCOSE, BUN, Medica l Branch CREATININE, CA) CBC WITH DIFF 2022-05-10 04:13:00 Abbi, [facility] HEPATITIS B SURFACE 2022-05-10 04:13:00 Feliberto Galicia [facility] ANTIGEN [facility] PHOSPHORUS 2022-05-10 04:13:00 Abbi, [facility] MAGNESIUM 2022-05-10 04:13:00 Abbi, [facility] BASIC METABOLIC PANEL (NA, 2022-05-10 04:13:00 Jared Go [facility] K, CL, CO2, GLUCOSE, BUN, Medica l Branch CREATININE, CA) CBC WITH DIFF 2022-05-10 04:13:00 Abbi [facility] HEPATITIS B SURFACE 2022-05-10 04:13:00 Feliberto Galicia [facility] POCT GLUCOSE (AUTOMATED) 2022-05-10 01:42:00 [facility]Ld [facility] PO[facility] GLUCOSE (AUTOMATED) 2022-05-10 01:42:00 Morgan, Ld Smith [facility] POCT GLUCOSE (AUTOMATED) 2022-05-10 01:42:00 MorganLd Uni [facility] POCT GLUCOSE (AUTOMATED) 2022-05-10 01:10:00 MorganLd [facility] POCT GLUCOSE (AUTOMATED) 2022-05-10 01:10:00 MorganLd [facility] POCT GLUCOSE (AUTOMATED) 2022-05-10 01:10:00 MorganLd Uni [facility] ABG+COOX+NA+K+GLU+CA2+ 2022-05-10 00:36:00 Ld [facility] ABG+COOX+NA+K+GLU+CA2+ 2022-05-10 00:36:00 Ld [facility] ABG+COOX+NA+K+GLU+CA2+ 2022-05-10 00:36:00 Ld [facility] POTASSIUM SERUM 2022-05-10 00:19:00 Ld Mora [facility] POTASSIUM SERUM 2022-05-10 00:19:00 Ld Mora [facility] POTASSIUM SERUM 2022-05-10 00:19:00 Ld Mora [facility] N-TERMINAL PRO-BNP 2022-05-09 23:06:00 Ld Mora [facility] COMP. METABOLIC PANEL 2022-05-09 23:06:00 Ld Mora [facility] ([id number] MAGNESIUM 2022-05-09 23:06:00 Ld Mora [facility] TROPONIN I 2022-05-09 23:06:00 Ld Mora [facility] MAGNESIUM 2022-05-09 23:06:00 Ld Mora Sarah [facility] TROPONIN I 2022-05-09 23:06:00 Ld Mora Sarah [facility] COMP. METABOLIC PANEL 2022-05-09 23:06:00 Ld Mora [facility] ([id number] [place] [address] N-TERMINAL PRO-BNP 2022-05-09 23:06:00 Ld Mora [facility] MAGNESIUM 2022-05-09 23:06:00 Ld Mora Sarah [facility] TROPONIN I 2022-05-09 23:06:[address] [facility] COMP. METABOLIC PANEL 2022-05-09 23:06:00 Ld Mora [facility] ([id number] [place] [address] N-TERMINAL PRO-BNP 2022-05-09 23:06:00 Ld Mora [facility] HB ECG ROUTINE & RHYTHM 2022-05-09 22:37:22 Ld Mora Sarah [facility] HB ECG ROUTINE & RHYTHM 2022-05-09 22:37:22 Ld Mora Sarah [facility] HB ECG ROUTINE & RHYTHM 2022-05-09 22:37:22 Ld Mora Sarah [facility] CT THORAX WO CONTRAST 2022-05-09 22:24:17 Ld Mora [facility] CT THORAX WO CONTRAST 2022-05-09 22:24:17 Ld Mora Sarah [facility] CT THORAX WO CONTRAST 2022-05-09 22:24:17 Ld Mora [facility] MARK AURIS SURVEILLANCE 2022-05-09 21:58:00 Ld Mora [facility] [place] BY PCR (INFECTION CONTROL Medica l Branch PURPOSES) CBC WITH DIFF 2022-05-09 21:58:00 Ld Mora [facility] CBC WITH DIFF 2022-05-09 21:58:00 Ld Mora [facility] MARK AURIS SURVEILLANCE 2022-05-09 21:58:00 Ld Mora [facility] [place] BY PCR (INFECTION CONTROL Medica l Branch PURPOSES) CBC WITH DIFF 2022-05-09 21:58:00 Ld Mora [facility] MARK AURIS SURVEILLANCE 2022-05-09 21:58:00 Ld Mora U [facility]iversity [facility] BY PCR (INFECTION CONTROL Medica l Branch PURPOSES) DISCLOSURE AND CONSENT, 2022-05-09 06:01:00 Doctor Unassigned, [facility] MEDICAL AND SURGICAL [facility] PROCEDURES HOSPITAL ADMISSION 2022-05-09 06:01:00 Doctor Unassigned, [facility] EXTERNAL PROVIDER RECORDS 2022-05-09 06:01:00 Doctor Unassigned, [facility] DISCLOSURE AND CONSENT, 2022-05-09 06:01:00 Doctor Unassigned, [facility] MEDICAL AND SURGICAL [facility] PROCEDURES HOSPITAL ADMISSION 2022-05-09 06:01:00 Doctor Unassigned, [facility] EXTERNAL PROVIDER RECORDS 2022-05-09 06:01:00 Doctor Unassigned, [facility] Name [facility] DISCLOSURE AND CONSENT, 2022-05-09 06:01:00 Doctor Unassigned, [facility] MEDICAL AND SURGICAL [facility] PROCEDURES HOSPITAL ADMISSION 2022-05-09 06:01:00 Doctor Unassigned, [facility] Name [facility] [place] EKG-12 LEAD 2021-12-25 18:40:28 Miguel Ángel Justice [facility] CONSENT/REFUSAL FOR 2021-12-25 18:09:35 Doctor Unassigned, [facility] DIAGNOSIS AND TREATMENT [facility] TTE COMPLETE, WO CONTRAST, 2021-12-18 13:28:00 Soni Mayes I [facility] W DOPPLER ([id number]) [place] HEPATITIS B SURFACE 2021-12-17 17:24:00 [facility] ANTIGEN HEPATITIS B SURFACE AB, 2021-12-17 17:24:00 [facility] QUANTITATIVE HEPATITIS B SURFACE 2021-12-17 17:24:00 [facility] ANTIBODY HEMODIALYSIS 2021-12-17 13:44:21 [facility] POC GLUCOSE 2021-12-16 22:03:00 Laeeq, [facility] CT ANGIOGRAM PE CHEST 2021-12-16 21:37:19 Laeeq, [facility] CBC WITH PLATELET AND 2021-12-16 17:59:00 Laeeq, [facility] DIFFERENTIAL VANCOMYCIN LEVEL, RANDOM 2021-12-16 17:59:00 Laeeq, [facility] LACTIC ACID LEVEL 2021-12-16 17:55:00 Laeeq, [facility] PROTHROMBIN TIME WITH INR 2021-12-16 17:55:00 Laeeq, [facility] COMPREHENSIVE METABOLIC 2021-12-16 17:25:00 Laeeq, [facility] PANEL MAGNESIUM LEVEL 2021-12-16 17:25:00 Laeeq, [facility] PHOSPHORUS LEVEL 2021-12-16 17:25:00 Laeeq, [facility] AMMONIA LEVEL 2021-12-16 17:25:00 Laeeq, [facility] ESTIMATED GFR 2021-12-16 17:25:00 Laeeq, [facility] CT HEAD WO CONTRAST 2021-12-16 13:16:29 Laeeq, [facility] EEG AWAKE/ASLEEP LESS THAN 2021-12-16 11:26:21 Laeeq, [facility] 41 MIN ARTERIAL BLOOD GAS 2021-12-16 02:54:00 [facility] VW PORTABLE 2021-12-16 01:57:17 Laeeq, [facility] TRANSFUSE RED BLOOD CELLS 2021-12-16 00:57:00 Laeeq, [facility] ARTERIAL BLOOD GAS 2021-12-16 00:51:00 Laeeq, [facility] ARTERIAL BLOOD GAS 2021-12-15 21:42:00 Bol[facility]fat[facility] [place] < 1 HOUR 2021-12-15 20:00:00 Bunny Go [facility] ARTERIAL BLOOD GAS, 2021-12-15 19:30:00 Laeeq, [facility] CORRECTED SODIUM LEVEL, SYRINGE 2021-12-15 19:30:00 Laeeq, [facility] POTASSIUM, SYRINGE 2021-12-15 19:30:00 Laeeq, [facility] HEMOGLOBIN, SYRINGE 2021-12-15 19:30:00 Laeeq, [facility] IONIZED CALCIUM, ARTERIAL 2021-12-15 19:30:00 Laeeq, [facility] GLUCOSE LEVEL, SYRINGE 2021-12-15 19:30:00 Laeeq, [facility] MAGNESIUM LEVEL 2021-12-15 19:30:00 Laeeq, [facility] ANAEROBIC CULTURE 2021-12-15 19:11:00 Bunny Go [facility] FUNGUS CULTURE 2021-12-15 19:11:00 [facility] Go Ho [facility] AFB CULTURE 2021-12-15 19:11:00 [facility] GRAM STAIN 2021-12-15 19:11:00 [facility] Go [facility] AFB STAIN 2021-12-15 19:11:00 [facility] AEROBIC CULTURE 2021-12-15 19:11:00 Bunny Go [facility] TRANSFUSE RED BLOOD CELLS 2021-12-15 18:37:00 Dallas Kowalski [facility] Michael ARTERIAL BLOOD GAS, 2021-12-15 17:51:00 Laeeq, [facility] CORRECTED SODIUM LEVEL, SYRINGE 2021-12-15 17:51:00 Laeeq, [facility] POTASSIUM, SYRINGE 2021-12-15 17:51:00 Laeeq, [facility] HEMOGLOBIN, SYRINGE 2021-12-15 17:51:00 Laeeq, [facility] IONIZED CALCIUM, ARTERIAL 2021-12-15 17:51:00 Laeeq, [facility] GLUCOSE LEVEL, SYRINGE 2021-12-15 17:51:00 Laeeq, [facility] MAGNESIUM LEVEL 2021-12-15 17:51:00 Laeeq, [facility] [place] AN ELECTIVE 2021-12-15 15:01:00 Dallas Kowalski [facility] spital SUPRAGLOTTIC AIRWAY Michael Extensive Revision AV 2021-12-15 14:41:00 Bunny Go [facility] Fistula CO- ANTI-SPIKE IGG 2021-12-15 10:57:00 Damion Ambrose [facility] ANTIBODY TITER Jalen CBC WITH PLATELET AND 2021-12-15 10:57:00 Laeeq, [facility] DIFFERENTIAL COMPREHENSIVE METABOLIC 2021-12-15 10:57:00 Laeeq, [facility] PANEL MAGNESIUM LEVEL 2021-12-15 10:57:00 Laeeq, [facility] PHOSPHORUS LEVEL 2021-12-15 10:57:00 Laeeq, [facility] PROTHROMBIN TIME WITH INR 2021-12-15 10:57:00 [facility]15 10:57[facility]00 [facility] Jalen ESTIMATED GFR 2021-12-15 10:57:00 Laeeq, [facility] PARTIAL THROMBOPLASTIN 2021-12-15 10:57:00 [facility] Jalen ESTIMATED GFR 2021-12-15 10:28:00 Laeeq, [facility] BASIC METABOLIC PANEL 2021-12-14 23:49:00 [facility] ESTIMATED GFR 2021-12-14 23:49:00 [facility] spital PREPARE RBC 2021-12-14 20:13:00 Rakel Johnson [facility] PROTHROMBIN TIME WITH INR 2021-12-14 20:13[facility] PARTIAL TH[facility]BOPLASTIN 2021-12-14 20:13:00 [facility] TIME (PTT) [facility]. XR CHEST 1 VW PORTABLE 2021-12-14 19:02:38 [facility] J. BASIC METABOLIC PANEL 2021-12-14 15:41:00 [facility] ESTIMATED GFR 2021-12-14 15:41:00 [facility] Ho spital HEMODIALYSIS 2021-12-14 14:50:32 Rudi Tamayo [facility] Kely CBC WITH PLATELET AND 2021-12-14 10:48:00 Medardo [facility] DIFFERENTIAL ESTIMATED GFR 2021-12-14 09:39:00 Medardo [facility] LACTIC ACID LEVEL, SEPSIS 2021-12-14 05:01:00 [facility] 3 HOURS POC GLUCOSE 2021-12-14 03:32:00 Medardo [facility] POC GLUCOSE 2021-12-14 02:40:00 Medardo [facility] ECG 12-LEAD 2021-12-14 02:14:56 Medardo [facility] POC GLUCOSE 2021-12-14 02:00:00 Medardo [facility] COVID-19 QUALITATIVE 2021-12-14 01:49:00 Pratibha Hummel [facility] RT-PCR LACTIC ACID LEVEL, SEPSIS 2021-12-14 01:49:00 Alma Whitman [facility] NOW AND REPEAT 2X EVERY 3 HOURS LACTIC ACID LEVEL, SEPSIS 2021-12-14 00:13:[address] [facility] - NOW AND REPEAT 2X EVERY 3 HOURS BASIC METABOLIC PANEL 2021-12-14 00:13:00 Pratibha Hummel [facility] CBC WITH PLATELET AND 2021-12-14 00:13:00 Pratibha Hummel [facility] DIFFERENTIAL HEPATIC FUNCTION PANEL 2021-12-14 00:13:00 Pratibha Hummel [facility] ESTIMATED GFR 2021-12-14 00:13:00 Estephanie [facility] BLOOD CULTURE, AEROBIC & 2021-12-14 00:12:00 [facility] [place] [facility] 2021-12-13 22:29:38 [facility] ILL/INJURED PATIENT INIT 30-74 MIN ECG ED PRELIMINARY 2021-12-13 22:29:38 [facility] INTER[facility]TATION Open Reduction of Fracture [facility] Multiple Ribs with Internal Fixation Insertion of Stent into [facility] Subclavian Artery Insertion of Stent into [facility] edical Aorta [facility] Care Planned Activity Planned Date Details Comments Source Future Scheduled 2022-05-15 Pneumococcal Vaccine: [facility] Test 15:13:20 Pediatrics (0 to 5 Years) and At-Risk Patients (6 to 64 Years) (1 - PCV) [code = Pneumococcal Vaccine: Pediatrics (0 to 5 Years) and At-Risk Patients (6 to 64 Years) (1 - PCV)] Future Scheduled 2022-05-15 Hepatitis C screening [facility] Test 15:13:20 (procedure) [code = [id number]] Future Scheduled 2022-05-15 COLONOSCOPY SCREENING [facility] Test 15:13:20 [code = COLONOSCOPY SCREENING] Future Scheduled 2022-05-15 COVID-19 VACCINE (3 - [facility] Test 15:13:20 Booster for Pfizer series) [code = COVID-19 VACCINE (3 - Booster for Pfizer series)] Future Scheduled 2022-05-15 INFLUENZA VACCINE [facility] Test 15:13:20 [code = INFLUENZA VACCINE] Future Scheduled 2022-05-15 Pneumococcal Vaccine: [facility] Test 15:13:20 Pediatrics (0 to 5 Years) and At-Risk Patients (6 to 64 Years) (1 - PCV) [code = Pneumococcal Vaccine: Pediatrics (0 to 5 Years) and At-Risk Patients (6 to 64 Years) (1 - PCV)] Future Scheduled 2022-05-15 Hepatitis C screening [facility] Test 15:13:20 (procedure) [code = [id number]] Future Scheduled 2022-05-15 COLONOSCOPY SCREENING [facility] Test 15:13:20 [code = COLONOSCOPY SCREENING] Future Scheduled 2022-05-15 COVID-19 VACCINE (3 - [facility] Test 15:13:20 Booster for Pfizer series) [code = COVID-19 VACCINE (3 - Booster for Pfizer series)] Future Scheduled 2022-05-15 INFLUENZA VACCINE [facility] Test 15:13:20 [code = INFLUENZA VACCINE] Future Scheduled 2022-05-15 Pneumococcal Vaccine: [facility] Test 15:13:20 Pediatrics (0 to 5 Years) and At-Risk Patients (6 to 64 Years) (1 - PCV) [code = Pneumococcal Vaccine: Pediatrics (0 to 5 Years) and At-Risk Patients (6 to 64 Years) (1 - PCV)] Future Scheduled 2022-05-15 Hepatitis C screening [facility] Test 15:13:20 (procedure) [code = [id number]] Future Scheduled 2022-05-15 COLONOSCOPY SCREENING [facility] Test 15:13:20 [code = COLONOSCOPY SCREENING] Future Scheduled 2022-05-15 COVID-19 VACCINE (3 - [facility] Test 15:13:20 Booster for Pfizer series) [code = COVID-19 VACCINE (3 - Booster for Pfizer series)] Future Scheduled 2022-05-15 INFLUENZA VACCINE [facility] Test 15:13:20 [code = INFLUENZA VACCINE] Future Scheduled 2022-05-10 Pneumococcal Vaccine: [facility] Test 11:00:01 Pediatrics (0 to 5 Years) and At-Risk Patients (6 to 64 Years) (1 - PCV) [code = Pneumococcal Vaccine: Pediatrics (0 to 5 Years) and At-Risk Patients (6 to 64 Years) (1 - PCV)] Future Scheduled 2022-05-10 Hepatitis C screening [facility] Test 11:00:01 (procedure) [code = [id number]] Future Scheduled 2022-05-10 COLONOSCOPY SCREENING [facility] Test 11:00:01 [code = COLONOSCOPY SCREENING] Future Scheduled 2022-05-10 COVID-19 VACCINE (3 - [facility] Test 11:00:01 Booster for Pfizer series) [code = COVID-19 VACCINE (3 - Booster for Pfizer series)] Future Scheduled 2022-05-10 INFLUENZA VACCINE [facility] Test 11:00:01 [code = INFLUENZA VACCINE] Future Scheduled 2022-04-12 Pneumococcal Vaccine: [facility] Test 12:01:17 Pediatrics (0 to 5 Years) and At-Risk Patients (6 to 64 Years) (1 - PCV) [code = Pneumococcal Vaccine: Pediatrics (0 to 5 Years) and At-Risk Patients (6 to 64 Years) (1 - PCV)] Future Scheduled 2022-04-12 Hepatitis C screening [facility] Test 12:01:17 (procedure) [code = [id number]] Future Scheduled 2022-04-12 COLONOSCOPY SCREENING [facility] Test 12:01:17 [code = COLONOSCOPY SCREENING] Future Scheduled 2022-04-12 COVID-19 VACCINE (3 - [facility] Test 12:01:17 Booster for Pfizer series) [code = COVID-19 VACCINE (3 - Booster for Pfizer series)] Future Scheduled 2022-04-12 INFLUENZA VACCINE [facility] Test 12:01:17 [code = INFLUENZA VACCINE] Future Scheduled 2022-04-12 Pneumococcal Vaccine: [facility] Test 12:01:17 Pediatrics (0 to 5 Years) and At-Risk Patients (6 to 64 Years) (1 - PCV) [code = Pneumococcal Vaccine: Pediatrics (0 to 5 Years) and At-Risk Patients (6 to 64 Years) (1 - PCV)] Future Scheduled 2022-04-12 Hepatitis C screening [facility] Test 12:01:17 (procedure) [code = [id number]] Future Scheduled 2022-04-12 COLONOSCOPY SCREENING [facility] Test 12:01:17 [code = COLONOSCOPY SCREENING] Future Scheduled 2022-04-12 COVID-19 VACCINE (3 - [facility] Test 12:01:17 Booster for Pfizer series) [code = COVID-19 VACCINE (3 - Booster for Pfizer series)] Future Scheduled 2022-04-12 INFLUENZA VACCINE [facility] Test 12:01:17 [code = INFLUENZA VACCINE] Future Scheduled 2022-04-12 Pneumococcal Vaccine: [facility] Test 12:01:17 Pediatrics (0 to 5 Years) and At-Risk Patients (6 to 64 Years) (1 - PCV) [code = Pneumococcal Vaccine: Pediatrics (0 to 5 Years) and At-Risk Patients (6 to 64 Years) (1 - PCV)] Future Scheduled 2022-04-12 Hepatitis C screening [facility] Test 12:01:17 (procedure) [code = [id number]] Future Scheduled 2022-04-12 COLONOSCOPY SCREENING [facility] Test 12:01:17 [code = COLONOSCOPY SCREENING] Future Scheduled 2022-04-12 COVID-19 VACCINE (3 - [facility] Test 12:01:17 Booster for Pfizer series) [code = COVID-19 VACCINE (3 - Booster for Pfizer series)] Future Scheduled 2022-04-12 INFLUENZA VACCINE [facility] Test 12:01:17 [code = INFLUENZA VACCINE] Future Scheduled 2022-04-12 Pneumococcal Vaccine: [facility] Test 12:01:17 Pediatrics (0 to 5 Years) and At-Risk Patients (6 to 64 Years) (1 - PCV) [code = Pneumococcal Vaccine: Pediatrics (0 to 5 Years) and At-Risk Patients (6 to 64 Years) (1 - PCV)] Future Scheduled 2022-04-12 Hepatitis C screening [facility] Test 12:01:17 (procedure) [code = 923032300] Future Scheduled 2022-04-12 COLONOSCOPY SCREENING [facility] Test 12:01:17 [code = COLONOSCOPY SCREENING] Future Scheduled 2022-04-12 COVID-19 VACCINE (3 - [facility] Test 12:01:17 Booster for Pfizer series) [code = COVID-19 VACCINE (3 - Booster for Pfizer series)] Future Scheduled 2022-04-12 INFLUENZA VACCINE [facility] Test 12:01:17 [code = INFLUENZA VACCINE] Future Scheduled 2022-04-12 Pneumococcal Vaccine: [facility] Test 12:01:17 Pediatrics (0 to 5 Years) and At-Risk Patients (6 to 64 Years) (1 - PCV) [code = Pneumococcal Vaccine: Pediatrics (0 to 5 Years) and At-Risk Patients (6 to 64 Years) (1 - PCV)] Future Scheduled 2022-04-12 Hepatitis C screening [facility] Test 12:01:17 (procedure) [code = 309828093] Future Scheduled 2022-04-12 COLONOSCOPY SCREENING [facility] Test 12:01:17 [code = COLONOSCOPY SCREENING] Future Scheduled 2022-04-12 COVID-19 VACCINE (3 - [facility] Test 12:01:17 Booster for Pfizer series) [code = COVID-19 VACCINE (3 - Booster for Pfizer series)] Future Scheduled 2022-04-12 INFLUENZA VACCINE [facility] Test 12:01:17 [code = INFLUENZA VACCINE] Future Scheduled 2021-12-30 HEPATITIS B VACCINES [facility] Test 03:33:27 (1 of 3 - 3-dose series) [code = HEPATITIS B VACCINES (1 of 3 - 3-dose series)] Future Scheduled 2021-12-30 Pneumococcal Vaccine: [facility] Test 03:33:27 Pediatrics (0 to 5 Years) and At-Risk Patients (6 to 64 Years) (1 - PCV) [code = Pneumococcal Vaccine: Pediatrics (0 to 5 Years) and At-Risk Patients (6 to 64 Years) (1 - PCV)] Future Scheduled 2021-12-30 Hepatitis C screening [facility] Test 03:33:27 (procedure) [code = [id number]] Future Scheduled 2021-12-30 COLONOSCOPY SCREENING [facility] Test 03:33:27 [code = COLONOSCOPY SCREENING] Future Scheduled 2021-12-30 COVID-19 VACCINE (3 - [facility] Test 03:33:27 Booster for Pfizer series) [code = COVID-19 VACCINE (3 - Booster for Pfizer series)] Future Scheduled 2021-12-30 INFLUENZA VACCINE [facility] Test 03:33:27 [code = INFLUENZA VACCINE] Future Scheduled 2021-11-29 HEPATITIS B VACCINES [facility] Test 05:50:55 (1 of 3 - 3-dose series) [code = HEPATITIS B VACCINES (1 of 3 - 3-dose series)] Future Scheduled 2021-11-29 COVID-19 VACCINE (#1) [facility] Test 05:50:55 [code = COVID-19 VACCINE (#1)] Future Scheduled 2021-11-29 Pneumococcal Vaccine: [facility] Test 05:50:55 Pediatrics (0 to 5 Years) and At-Risk Patients (6 to 64 Years) (1 - PCV) [code = Pneumococcal Vaccine: Pediatrics (0 to 5 Years) and At-Risk Patients (6 to 64 Years) (1 - PCV)] Future Scheduled 2021-11-29 Hepatitis C screening [facility] Test 05:50:55 (procedure) [code = [id number]] Future Scheduled 2021-11-29 COLONOSCOPY SCREENING [facility] Test 05:50:55 [code = COLONOSCOPY SCREENING] Future Scheduled 2021-11-29 INFLUENZA VACCINE [facility] Test 05:50:55 [code = INFLUENZA VACCINE] Future Scheduled 2021-11-29 HEPATITIS B VACCINES [facility] Test 05:50:55 (1 of 3 - 3-dose series) [code = HEPATITIS B VACCINES (1 of 3 - 3-dose series)] Future Scheduled 2021-11-29 COVID-19 VACCINE (#1) [facility] Test 05:50:55 [code = COVID-19 VACCINE (#1)] Future Scheduled 2021-11-29 Pneumococcal Vaccine: [facility] Test 05:50:55 Pediatrics (0 to 5 Years) and At-Risk Patients (6 to 64 Years) (1 - PCV) [code = Pneumococcal Vaccine: Pediatrics (0 to 5 Years) and At-Risk Patients (6 to 64 Years) (1 - PCV)] Future Scheduled 2021-11-29 Hepatitis C screening [facility] Test 05:50:55 (procedure) [code = [id number]] Future Scheduled 2021-11-29 COLONOSCOPY SCREENING [facility] Test 05:50:55 [code = COLONOSCOPY SCREENING] Future Scheduled 2021-11-29 INFLUENZA VACCINE [facility] Test 05:50:55 [code = INFLUENZA VACCINE] Future Scheduled 2021-11-29 HEPATITIS B VACCINES [facility] Test 05:50:55 (1 of 3 - 3-dose series) [code = HEPATITIS B VACCINES (1 of 3 - 3-dose series)] Future Scheduled 2021-11-29 COVID-19 VACCINE (#1) [facility] Test 05:50:55 [code = COVID-19 VACCINE (#1)] Future Scheduled 2021-11-29 Pneumococcal Vaccine: [facility] Test 05:50:55 Pediatrics (0 to 5 Years) and At-Risk Patients (6 to 64 Years) (1 - PCV) [code = Pneumococcal Vaccine: Pediatrics (0 to 5 Years) and At-Risk Patients (6 to 64 Years) (1 - PCV)] Future Scheduled 2021-11-29 Hepatitis C screening [facility] Test 05:50:55 (procedure) [code = 037118398] Future Scheduled 2021-11-29 COLONOSCOPY SCREENING [facility] Test 05:50:55 [code = COLONOSCOPY SCREENING] Future Scheduled 2021-11-29 INFLUENZA VACCINE [facility] Test 05:50:55 [code = INFLUENZA VACCINE] Future Scheduled 2021-11-29 HEPATITIS B VACCINES [facility] Test 05:50:55 (1 of 3 - 3-dose series) [code = HEPATITIS B VACCINES (1 of 3 - 3-dose series)] Future Scheduled 2021-11-29 COVID-19 VACCINE (#1) [facility] Test 05:50:55 [code = COVID-19 VACCINE (#1)] Future Scheduled 2021-11-29 Pneumococcal Vaccine: [facility] Test 05:50:55 Pediatrics (0 to 5 Years) and At-Risk Patients (6 to 64 Years) (1 - PCV) [code = Pneumococcal Vaccine: Pediatrics (0 to 5 Years) and At-Risk Patients (6 to 64 Years) (1 - PCV)] Future Scheduled 2021-11-29 Hepatitis C screening [facility] Test 05:50:55 (procedure) [code = 343630742] Future Scheduled 2021-11-29 COLONOSCOPY SCREENING [facility] Test 05:50:55 [code = COLONOSCOPY SCREENING] Future Scheduled 2021-11-29 INFLUENZA VACCINE [facility] Test 05:50:55 [code = [...] Future Scheduled 2021-11-16 HEPATITIS B VACCINES [facility] Test 04:27:12 (1 of 3 - 3-dose series) [code = HEPATITIS B VACCINES (1 of 3 - 3-dose series)] Future Scheduled 2021-11-16 COVID-19 VACCINE (#1) [facility] Test 04:27:12 [code = COVID-19 VACCINE (#1)] Future Scheduled 2021-11-16 Pneumococcal Vaccine: [facility] Test 04:27:12 Pediatrics (0 to 5 Years) and At-Risk Patients (6 to 64 Years) (1 - PCV) [code = Pneumococcal Vaccine: Pediatrics (0 to 5 Years) and At-Risk Patients (6 to 64 Years) (1 - PCV)] Future Scheduled 2021-11-16 Hepatitis C screening [facility] Test 04:27:12 (procedure) [code = 520960405] Future Scheduled 2021-11-16 INFLUENZA VACCINE [facility] Test 04:27:12 [code = [facility]00 (12+) [code = [facility] DEPRESSION SCREENING (12+)] Diagnostic Test 2019-02-21 17-hydroxyprogesterone [facility] Pending 00:00:00 , quantitative, serum [...] [facility] Test 00:[facility]:00 (procedure) [code = [facility] [id number]] Future Scheduled [address] [facility] Test 00:00:00 (procedure) [code = [facility] [id number]] Future Scheduled [address] [facility] Test 00:00:00 (procedure) [code = [facility] [id number]] Future Scheduled [address] [facility] Test 00:00:00 (procedure) [code = [facility] [id number]] Future Scheduled [address] [facility] Test 00:00:00 (procedure) [code = [facility] [id number]] Future Scheduled 1994 DTAP/TDAP/TD VACCINES [facility] [...] [facility] colon (procedure) [code = 087529486] Future Scheduled [address] [facility] colon (procedure) [code = 063196861] Future Scheduled [address] [facility] (procedure) [code = 236666108] Future Scheduled [address] [facility] 00:[facility] (procedure) [code = 805976159] Future Scheduled [address] [facility] 00:00:[facility] colon (procedure) [code = 732881103] Future Scheduled 1975 Sigmoidoscopy [facility] Future Scheduled [address] [facility] 00:[facility] colon (procedure) [code = 462136277] Future Scheduled [address] [facility] 00:00:00 [facility] colon (procedure) [code = 514605529] Future Scheduled [address] [facility] 00:00:00 (combo) [code = CT Medical C enter Colonography (combo)] Future Scheduled [address] [facility] 00:00:00 [facility] (procedure) [code = 659826532] Future Scheduled [address] [facility] 00:00:00 [facility] colon (procedure) [code = 568471546] Future Scheduled [address] [facility] 00:00:00 [facility] colon (procedure) [code = 629986865] Future Scheduled [address] [facility] 00:00:00 [facility] colon (procedure) [code = 660685854] Future Scheduled [address] [facility] 00:00:00 [facility] colon (procedure) [code = 905067193] Future Scheduled 1975 Sigmoidoscopy [code = [facility] [...] [facility] colon (procedure) [code = 923768090] Future Scheduled [address] [facility] 00:00:00 [facility] colon (procedure) [code = 378061928] Future Scheduled [address] [facility] 00:00:00 [facility] colon (procedure) [code = 456195336] Future Scheduled [address] [facility] 00:00:00 [facility] colon (procedure) [code = 677059713] Future Scheduled 1975 Sigmoidoscopy [facility]] [facility] Future Scheduled [address] [facility] 00:00:00 (combo) [code = CT [facility] enter Colonography (combo)] Future Scheduled [address] [facility] 00:00:00 [facility] colon (procedure) [code = 611859236] Future Scheduled [address] [facility] 00:00:00 [facility] colon (procedure) [code = 791979426] Future Scheduled [address] [facility] 00:00:00 [facility] colon (procedure) [code = 924410128] Future Scheduled [address] [facility] 00:00:00 [facility] colon (procedure) [code = 808480893] Future Scheduled 1975 Sigmoidoscopy [code = [facility] 00:[facility]:00 S[facility]] Medical Cente r Encounters Start End Encounter Admission Attending Care Care Encounter Source Date/Time Date/Time Type Type Clinicians Facility Department ID 2022-02-15 Inpatient TEXANA [facility] [id number] [facility] 10:46:20 [id number] [place] 2021-11-19 Outpatient [facility] [id number] PR 10:07:20 [id number] [facility] 2021-10-16 Outpatient [facility] [id number] PR 14:38:07 ENRIQUE [id number] [facility] 2021-09-25 Outpatient [facility] [id number] [place] 09:31:27 ENRIQUE [id number] [facility] 2021-09-17 Outpatient [facility] [id number] PR 10:08:53 ENRIQUE [id number] [facility] 2021-09-04 Outpatient [facility] [id number] PR 12:19:20 ENRIQUE [id number] [facility] 2015-12-08 Inpatient C [facility] MED [id number] St. 18:48:00 [facility] 2022-05-29 2022-05-29 Transition RANJIT Angel 1.2.840.[id number] [facility] 00:00:00 00:00:00 of Care Lana HIDALGO 350.1.13.10 ity of [place] [id number] [facility] [address] Branch 2022-05-09 2022-05-28 Inpatient X JEAN-CLAUDE COHEN [facility] [id number] Univers 15:17:00 12:12:00 ity of [facility] 2022-05-09 2022-05-28 [facility] Ld Mora 1.2.840.1 14 [id number] Univers 15:17:00 12:12:00 Encounter Natalie Mustafa 350.1.13 .10 ity [facility] 4.2.7.2.686 Jean-Claude Saravia [id number] Id dical 089 Branch 2022-05-22 2022-05-22 Surgery Jean-Claude Cohen 1.2.341.657 [id number] Univers 08:35:00 12:26:00 JOAN 350.1.13.10 it y [facility] 4.2.7.2.686 Darian as [id number] [facility] 103 Branch 2022-05-14 2022-05-14 Outpatient [facility] PRIV PRIV 205 [id number] [facility] 00:00:00 00:00:00 d_J [id number] Medica l 2022-05-14 2022-05-14 Outpatient [facility] PRIV PRIV 205 [id number] [facility] 00:00:00 00:00:00 d_J [id number] Medica l 2022-05-13 2022-05-13 [facility], 1.2.840.6 [id number] 1 [id number] Univers 00:00:00 00:00:00 Management Care 01948.1.1 i ty of Transition 3.104.2.7 Darian as .3.190592 Medica l .8 Branch 2022-05-10 2022-05-10 Outpatient [facility] PRIV PRIV 205 [id number] [facility] 00:00:00 00:00:00 d_J [id number] Medica l 2022-05-09 2022-05-09 Travel 1.2.840.1 1.2.595.014 [id number] Univers 00:00:00 00:00:00 11815.1.1 350.1.13.10 ity of 3.104.2.7 [place].698 [place].9[place]30 084.8 Medica l .8 Branch 2022-04-30 2022-04-30 Mara [facility] 131 [facility] 00:00:00 00:00:00 Vito PA: Health - Med ical [address] [place] [address] , Ph. 2022-04-29 2022-04-29 Outpatient [facility] PRIV PRIV 205 [id number] [facility] 00:00:00 00:00:00 d_J [id number] Medica l 2022-04-16 2022-04-16 Mara [facility] 117 [facility] 00:00:00 00:00:00 PIA Padron: Health - Med ical [address] [address] , Ph. 2022-04-10 2022-04-10 Outpatient [facility] PRIV PRIV 205 [id number] [facility] 00:00:00 00:00:00 d_J [id number] Medica l 2022-04-10 2022-04-10 Outpatient [facility] PRIV PRIV 205 [id number] [facility] 00:00:00 00:00:00 d_J [id number] Medica l 2022-04-10 2022-04-10 Outpatient [facility] PRIV PRIV 205 [id number] [facility] 00:00:00 00:00:00 d_J [id number] Medica l 2022-04-02 2022-04-[facility] 103 [facility] 00:00:00 00:00:00 PIA Padron: Health - Med ical [address] [address] , Ph. 2022-03-29 2022-03-29 Outpatient [facility] PRIV PRIV 205 [id number] [facility] 00:00:00 00:00:00 d_J [id number] Medica l 2022-03-21 2022-03-21 Outpatient R RESHMA [facility] [id number] Univers 00:00:00 00:00:00 SENDIL [facility] 2022-03-14 2022-03-14 Outpatient R [facility] [id number] Univers 00:00:00 [facility]00[facility] 2022-03-12 2022-03-12 Mara [facility] 213 [facility] 00:00:00 00:00:00 PIA Padron: Health - Med ical [address] [address] , Ph. 2022-03-05 2022-03-05 Robert Mojica [facility] 202 [facility] 00:00:00 00:00:00 Fabio [facility] - Med ica MD: [address] [address] , Ph. 2022-03-01 2022-03-01 Travel 1.2.840.1 1.2.187.924 [id number] [id number] Univers 00:00:00 00:00:00 16047.1.1 350.1.13.10 ity of 3.104.2.7 [place].3.698 [place]3.606496 084.8 Medica l .8 Branch 2022-02-26 2022-02-26 [facility] [id number] Univers 10:40:00 10:40:00 [facility] 2022-02-20 2022-02-20 Outpatient [facility] [id number] Univers 13:00:00 13:00:00 [facility] 2022-02-19 2022-02-19 Mara [facility] 122 [facility] 00:00:00 00:00:00 PIA Padron: Health - Med ical [address] [address] , Ph. 2022-02-12 2022-02-12 Outpatient [facility] [id number] Univers 13:00:00 13:00:00 COLLEEN palacios [facility] 2022-02-05 2022-02-05 Mara DESIR [facility] 108 [facility] 00:00:00 00:00:00 PIA Padron: Health - Med ical [address] [address] , Ph. 2022-01-22 2022-01-22 Office Martines, 1.2.840.1 [id number] Methodi 13:45:00 15:23:28 Visit Aubree 87987.1.[address] [place] 3.430.2.7 Hosp carly .3.746348 l .8 2022-01-22 2022-01-22 Office Martines, 1.2.840.1 [id number] Methodi 13:45:00 15:23:28 Visit Aubree 57511.1.[address] [place] 3.430.2.7 Hosp carly .3.416483 l .8 2022-01-22 2022-01-22 Travel 1.2.840.1 1.2.363.391 3931 [id number] Methodi 00:00:00 00:00:[address] 3.430.2.7 0.2.7.3.698 Ho spita .3.304566 084.8 l .8 2022-01-22 2022-01-22 Travel 1.2.840.1 1.2.188.510 6664 331549 Methodi 00:00:00 00:00:[address] 3.430.2.7 0.2.7.3.698 spita .3.889980 084.8 l .8 2022-01-18 2022-01-18 Mara [facility] 021 [facility] 00:00:00 00:00:00 PIA Padron: Health - Med ical [address] [address] , Ph. 2022-01-11 2022-01-11 Telephone Bunny Go 1.2.840.1 [id number] [id number] Methodi 00:00:00 00:00:[address] 3.430.2.7 Hospit a .3.484885 l .8 2022-01-11 2022-01-11 Telephone Abbi Bunny 1.2.840.1 [id number] 267 [id number] Methodi 00:00:00 00:00:[address] 3.430.2.7 Hospit a .3.020790 l .8 2022-01-04 [facility]22[facility]01-[facility]7 [facility] 00:00:00 00:00:00 PIA Padron: Health - Med ical [address] [address] , Ph. 2021-12-26 2021-12-26 Telephone Reshma PRBRADY 1.2.638.117 [id number] [id number] Univers 00:00:00 00:00:00 Miguel Ángel YANEZ 350.1.13.10 ity [facility] 4.2.7.2.686 Lina RAMIREZ [id number] [address] 2021-12-25 2021-12-25 Outpatient R GO [facility] [id number] Univers 13:00:00 14:05:49 SENDSUE itdenise [facility] 2021-12-25 2021-12-25 Office Reshma PRBRADY 1.2.840.114 [id number] Univers 13:00:00 14:05:49 Visit Miguel Ángel Wilson RENATA 350.1.13.10 ity of [place] 4.2.7.2.686 Lina RAMIREZ [id number] Id dical [facility] 2021-12-25 2021-12-25 Outpatient [facility]Tod PRIV PRIV 205 [id number] [facility] 00:00:00 00:00:00 d_J [id number] Medica l 2021-12-25 2021-12-25 Outpatient [facility]Tod PRIV PRIV 205 [id number] [facility] 00:00:00 00:00:00 d_J [id number] Medica l 2021-12-25 2021-12-25 Outpatient [facility] PRIV PRIV 205 [id number] [facility] 00:00:00 00:00:00 d_J [id number] Medica l 2021-12-25 2021-12-25 Outpatient [facility] PRIV PRIV 205 [id number] [facility] 00:00:00 00:00:00 d_J [id number] Medica l 2021-12-25 2021-12-25 Outpatient [facility] PRIV PRIV 205 [id number] [facility] 00:00:00 00:00:00 d_J [id number] Medica l 2021-12-25 2021-12-25 Orders Doctor FLYNN 1.2.840.114 [id number] Univers 00:00:00 00:00:00 Only Unassigned, JOAN 350.1.13.10 [facility] 4.2.7.2.686 Darian as [phone] [address] 2021-12-25 2021-12-25 Mara [facility] [id number] [facility] 00:00:00 00:00:00 PIA Padron: Health - Med ical [address] [address] , Ph. 2021-12-20 2021-12-20 Telephone Phong 1.2.840.1 [id number] Methodi 00:00:00 00:00:[address] 3.430.2.7 Hospit a .3.780211 l .8 2021-12-20 2021-12-20 Telephone Phong 1.2.840.1 [id number] Methodi 00:00:00 00:00:[address] 3.430.2.7 Hospit a .3.504486 l .8 2021-12-13 2021-12-18 [facility] Jorje Connell 1.2.840.1 1 [id number] Methodi 16:41:00 20:55:00 Encounter Alma Whitman 26937.1.[address] [place], Rakel Maynor 3.430.2.7 Hospita Nakul Krueger Mayela .3.106879 l .8 2021-12-13 2021-12-18 [facility] Jorje Connell 1.2.840.1 1 [id number] Methodi 16:41:00 20:55:00 Encounter Alma Whitman 12395.1.[address] La[place]q, Rakel Maynor 3.430.2.[address] [facility] Room[facility]onis irelanduna Mayela .3.807294 l .8 2021-12-15 2021-12-15 Anesthesia Virgilio Purvis 1.2.840.1 [id number] Methodi 09:41:00 15:01:00 Event Dallas Kowalski 10862.1.[address] 3.430.2.7 Hospit a .3.045559 l .8 2021-12-15 2021-12-15 Anesthesia Virgilio Purvis 1.2.840.1 [id number] Methodi 09:41:00 15:01:00 Event Dallas Kowalski 66435.1.[address] 3.430.2.7 Hospit a .3.205296 l .8 2021-12-15 2021-12-15 Surgery Bunny Go 1.2.840.1 [id number] Methodi 09:15:00 11:25:[address] 3.430.2.7 Hospit a .3.122612 l .8 2021-12-15 2021-12-15 Surgery Bunny Go 1.2.840.1 [id number] 80003 94365 Methodi 09:15:00 11:25:[address] 3.430.2.7 Hospit a .3.487262 l .8 2021-12-13 2021-12-13 Travel 1.2.840.1 1.2.563.281 6554 927661 Methodi 00:00:00 00:00:[address] 3.430.2.7 0.2.7.3.698 Ho spita .3.990030 084.8 l .8 2021-12-13 2021-12-13 Travel 1.2.840.1 1.2.867.332 0958 133986 Methodi 00:00:00 00:00:[address] 3.430.2.7 0.2.7.3.698 Ho spita .3.377883 084.8 l .8 2021-12-12 2021-12-12 Outpatient [facility] PRIV PRIV 205 [id number] [facility] 00:00:00 00:00:00 d_J [id number] Medica l 2021-12-11 2021-12-11 Outpatient THANG Padron [facility] [id number] 8-3 00:00:00 00:00:00 Mara 7bc-11ed-b [id number] f31d7d 2021-12-11 2021-12-11 Mara [facility] [id number] [facility] 00:00:00 00:00:00 PIA Padron: Health - Med ical [address] [address] , Ph. 2021-12-08 2021-12-08 Outpatient [facility]Tod PRIV PRIV 205 [id number] [facility] 00:00:00 00:00:00 d_J [id number] Medica l 2021-11-24 2021-11-24 Outpatient [facility]Tod PRIV PRIV 205 [id number] [facility] 00:00:00 00:00:00 d_J [id number] Medica l 2021-11-23 2021-11-23 Outpatient Vito PRIV PRIV [id number] 0-2 00:00:00 00:00:00 Mara g18-71en-3 [id number] 2021-11-23 2021-11-23 Mara [facility] [id number] [facility] 00:00:00 00:00:00 PIA Padron: Health - Med ical [address] [address] , Ph. 2021-11-20 2021-11-20 Outpatient [facility]Tod PRIV PRIV 205 [id number] [facility] 00:00:00 00:00:00 d_J [id number] Medica l 2021-11-20 2021-11-20 Outpatient Vito PRIV PRIV [id number] a-2 00:00:00 00:00:00 Mara e2a-71cf-r [id number]-dc7df1 188fab 2021-11-20 2021-11-20 Mara [facility] [id number] [facility] 00:00:00 00:00:00 PIA Padron: Health - Med ical [address] [address] , Ph. 2021-11-16 2021-11-16 Outpatient [facility]Tod PRIV PRIV 205 [id number] [facility] 00:00:00 00:00:00 d_J [id number] Medica l 2021-11-08 2021-11-08 Outpatient [facility] PRIV PRIV 205 [id number] [facility] 00:00:00 00:00:00 d_J [id number] Medica l 2021-11-08 2021-11-08 Robert Mojica [facility] [id number] [facility] 00:00:00 00:00:00 Fabio [facility] Med ica MD: [address] [address] , Ph. 2021-11-08 2021-11-08 Outpatient Fabio [facility] PRIV [id number] [id number] 00:00:00 00:00:00 Robert Mojica h74-78cy-g [id number] 2021-11-02 2021-11-02 Outpatient [facility]Tod PRIV PRIV 205 [id number] [facility] 00:00:00 00:00:00 dAddis [id number] Medica l 2021-11-02 2021-11-02 Mara [facility] [id number] [facility] 00:00:00 00:00:00 PIA Padron: Health - Med ical [address] [address] , Ph. 2021-11-02 2021-11-02 Outpatient Vito [facility] PRIV [id number] e-1 00:00:00 00:00:00 Mara ce7-11ed-b [id number] [id number] 2021-10-28 2021-10-28 Outpatient [facility]Tod PRIV PRIV 205 [id number] [facility] 00:00:00 00:00:00 d_J [id number] Medica l 2021-10-20 2021-10-20 Outpatient [facility]Tod PRIV PRIV 205 [id number] [facility] 10:42:00 10:42:00 dMessiJ [id number] Medica l 2021-10-19 2021-10-19 Outpatient [facility]Tod PRIV PRIV 205 [id number] [facility] 07:48:00 07:48:00 dAddis [id number] Medica l 2021-10-19 2021-10-19 Mara [facility] [id number] [facility] 00:00:00 00:00:00 PIA Padron: Health - Med ical [address] [address] , Ph. 2021-10-19 2021-10-19 Outpatient Vito PRIV PRIV [id number] e-1 00:00:00 00:00:00 Mara 12e-11ed-a s98-53a3m2 58bb2d 2021-10-12 2021-10-12 Outpatient [facility]Tod PRIV PRIV 205 [id number] [facility] 03:53:00 03:53:00 d_J [id number] Medica l 2021-10-12 2021-10-12 Mara [facility] [id number] [facility] 00:00:00 00:00:00 PIA Padron: Health - Med ical [address] [address] , Ph. 2021-10-12 2021-10-12 Outpatient Vito PRIV PRIV [id number] 2-0 00:00:00 00:00:00 Mara af6-11ed-9 [id number] 2021-10-09 2021-10-09 Outpatient [facility] 767 [place] 11:56:00 11:56:00 HANA 0712 da [facility] Outre h Program 2021-10-05 2021-10-05 Outpatient [facility]Tod PRIV PRIV 205 [id number] [facility] 11:01:00 11:01:00 d_J [id number] Medica l 2021-10-04 2021-10-04 Outpatient [facility]Tod PRIV PRIV 205 [id number] [facility] 09:10:00 09:10:00 d_J [id number] Medica l 2021-10-03 2021-10-03 Outpatient [facility]Tod PRIV PRIV 205 [id number] [facility] 02:45:00 02:45:00 d_J [id number] Medica l 2021-10-02 2021-10-02 Outpatient [facility]Tod PRIV PRIV 205 [id number] [facility] 05:08:00 05:08:00 d_J [id number] Medica l 2021-10-02 2021-10-02 Mara [facility] [id number] [facility] 00:00:00 00:00:00 PIA Padron: Health - Med ical [address] [address] , Ph. 2021-10-02 2021-10-02 Outpatient Viot PRIV PRIV [id number] c-f 00:00:00 00:00:00 Mara c17-63td-u [id number] b7 2021-09-26 2021-09-26 Outpatient [facility]Tod PRIV PRIV 205 [id number] [facility] 09:13:00 09:13:00 dAddis [id number] Medica l 2021-09-26 2021-09-26 Mara [facility] [id number] [facility] 00:00:00 00:00:00 PIA Padron: Health - Med ical [address] [address] , Ph. 2021-09-26 2021-09-26 Outpatient THANG Padron PRIV [id number] 2-f 00:00:00 00:00:00 Mara dec-11ec-8 [id number] b7 2021-09-25 2021-09-25 Office ADRI Thompson [facility] 1.2.840.114 [id number] [place] 11:15:00 12:43:[address] [facility] ([place], [place]) 350.1.13.58 Benny RAMSEY 1 9.2.7.2.686 [id number] 2 2021-09-21 2021-09-21 Outpatient [facility]Tod PRIV PRIV 205 [id number] [facility] 04:44:00 04:44:00 dMessiJ [id number] Medica l 2021-09-17 2021-09-17 Outpatient [facility]Tod PRIV PRIV 205 [id number] [facility] 11:11:00 11:11:00 d_J [id number] Medica l 2021-09-13 2021-09-13 Outpatient [facility]Tod PRIV PRIV 205 [id number] [facility] 10:39:00 10:39:00 d_J [id number] Medica l 2021-09-13 2021-09-13 Robert Mojica [facility] [id number] [facility] 00:00:00 00:00:00 Fabio [facility] - Med ical MD: [address] [address] , Ph. 2021-09-13 2021-09-13 Outpatient Fabio [facility] PRIV [id number] c76-f 00:00:00 00:00:00 Robert Mojica 3ee-11ec-8 [id number] 2021-09-10 2021-09-10 Outpatient [facility]Tod PRIV PRIV 205 [id number] [facility] 03:35:00 03:35:00 d_J [id number] Medica l 2021-09-04 2021-09-04 Outpatient [facility]Tod PRIV PRIV 205 [id number] [facility] 07:32:00 07:32:00 d_J [id number] Medica l 2021-09-04 2021-09-04 Outpatient Vito [facility] [id number] 2-e 00:00:00 00:00:00 Mara b4o-83go-8 [id number] [id number] 2021-09-04 2021-09-04 Mara [facility] [id number] [facility] 00:00:00 00:00:00 PIA Padron: Health - Med ical [address] [address] , Ph. 2021-08-31 2021-08-31 Outpatient [facility]_Tod PRIV PRIV 205 [id number] [facility] 02:07:00 02:07:00 d_J [id number] Medica l 2021-08-23 2021-08-23 Outpatient [facility]Tod PRIV PRIV 205 [id number] [facility] 11:05:00 11:05:00 d_J [id number] Medica l 2021-08-22 2021-08-22 Outpatient [facility]Tod PRIV PRIV 205 [id number] [facility] 07:00:00 07:00:00 d_J [id number] Medica l 2021-08-22 2021-08-22 Outpatient Vito, PRIV PRIV [id number] 8-[id number] 00:00:00 00:00:00 Mara 5f6-55re-o [id number] 2021-08-22 2021-08-22 Mara [facility] [id number] [facility] 00:00:00 00:00:00 PIA Padron: Health - Med ical [address] [address] , Ph. 2021-08-19 2021-08-19 Outpatient [facility]_Tod PRIV PRIV 205 [id number] [facility] 10:45:00 10:45:00 d_J [id number] Medica l 2021-08-14 2021-08-14 Outpatient [facility]_Tod PRIV PRIV 205 [id number] [facility] 03:16:00 03:16:00 d_J [id number] Medica l 2021-08-14 2021-08-14 Outpatient Vito PRIV PRIV [id number] 4-d 00:00:00 00:00:00 Mara delivery table feeder-11ec-8 [id number] 2021-08-14 2021-08-14 Mara [facility] [id number] [facility] 00:00:00 00:00:00 PIA Padron: Health - Med ical [address] [address] , Ph. 2021-08-10 2021-08-10 Outpatient [facility]_Tod PRIV PRIV 205 [id number] [facility] 01:10:00 01:10:00 d_J [id number] Medica l 2021-08-10 2021-08-10 Outpatient THANG Padron PRIV [id number] e-d 00:00:00 00:00:00 Mara l3j-32iy-a [id number] 2021-08-10 2021-08-10 Mara [facility] [id number] [facility] 00:00:00 00:00:00 PIA Padron: Health - Med ical [address] [address] , Ph. 2021-08-08 2021-08-08 Outpatient [facility]_Tod PRIV PRIV 205 [id number] [facility] 10:53:00 10:53:00 d_J [id number] Medica l 2021-08-04 2021-08-04 Outpatient [facility]_Tod PRIV PRIV 205 [id number] [facility] 10:45:00 10:45:00 d_J [id number] Medica l 2021-07-31 2021-07-31 Outpatient [facility]_Tod PRIV PRIV 205 [id number] [facility] 07:56:00 07:56:00 d_J [id number] Medica l 2021-07-31 2021-07-31 Outpatient Vito PRIV PRIV [id number] 4-d 00:00:00 00:00:00 Mara 159-11ec-9 [id number] 2021-07-31 2021-07-[facility] [id number] [facility] 00:00:00 00:00:00 PIA Padron: Health - Med ical [address] [address] , Ph. 2021-07-27 2021-07-27 Outpatient [facility]_Tod PRIV PRIV 205 [id number] [facility] 08:30:00 08:30:00 d_J [id number] Medica l 2021-07-27 2021-07-27 Outpatient Vito PRIV PRIV [id number] 0-[id number] 00:00:00 00:00:00 Mara g21-95ji-u [id number] [id number] 2021-07-27 2021-07-27 Mara [facility] [id number] [facility] 00:00:00 00:00:00 PIA Padron: Health - Med ical [address] [address] , Ph. 2021-07-19 2021-07-19 Outpatient [facility]_Tod PRIV PRIV 205 [id number] [facility] 08:26:00 08:26:00 d_J [id number] Medica l 2021-07-19 2021-07-19 Outpatient Fabio, PRIV PRIV [id number] 00:00:00 00:00:00 Robert Mojica 7bc-11ec-a [id number] 2021-07-19 2021-07-19 Robert Mojica [facility] 00:00:00 00:00[facility] [address] [facility], [place] [address] , Ph. 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 2021-07-12 2021-07-12 Outpatient Leslie PRIV PRIV [id number] 00:00:00 00:00:00 June [id number] 2021-07-11 2021-07-11 Outpatient [facility]Tod PRIV PRIV [id number] [facility] 10:53:00 10:53:00 Carey [id number] Medica l 2021-07-06 2021-07-06 Outpatient [facility]Spa PRIV PRIV [id number] [facility] 05:28:00 05:28:00 Portillo [id number] Medica l 2019-02-20 2019-02-20 Keven [facility] [place] - [id number] [place] 00:00:00 00:00:00 Christo Collins MD: [address] [place] [address] , Ph. 2018-11-13 2018-11-13 Keven [place]AE[place] - [id number] [place] 00:00:00 00:00:00 Christo Collins MD: [address] [place] [address], [place] [address] , Ph. 2018-10-25 2018-10-25 Keven BAE[place] - [id number] [place] 00:00:00 00:00:00 Christo Collins MD: [address] [address], [place] [address] , Ph. 2018-09-04 2018-09-04 Keven BAE[place] - [id number] [place] 00:00:00 00:00:00 Celestino Singh, Medical Medical MD: [address] [facility], [place] [address] , Ph. 2017-09-07 2017-09-08 Inpatient Christiano [facility] TELE [id number] [facility] 15:44:00 18:20:00 [facility] 2017-09-01 2017-09-04 Inpatient KHADAR [facility] TELE [id number] [facility] 20:55:00 18:24:00 Medica l Center Results [...] as normal/abnormal . MPV (test code = 83015-5) 10.2 fL 9.8-13.0 RDW-CV (test code = 788-0) 20.8 % 12.1-15.4 H RDW-SD (test code = 99994-2) 59.4 fL 38.5-51.6 H NRBC x10^3 (test code = 0.06 See_Comment [Au tomated message] The system [id number]) which generated this result transmitted ref erence range: 10*3/?L. The re ference range was not used to interpret this result as bonnie l/abnormal. NRBC/100 WBC (test code = 0.4 See_Comment [ Automated message] The system [id number]) which generated this result transmitted ref erence range: 0.0 - 10.0 /100 WBCs. The reference range was not used to interpret this result as normal/abnormal . IPF % (test code = 8569506003) Lab Interpretation (test code Abnormal = 56796-4) [facility]:18:42 Test Item Value Reference Range Interpretation Comments MAGNESIUM (test code = 9828360282) 1.7 mg/dL 1.7-2.4 Lab Interpretation (test code = Normal 19553-4) [facility]23-[facility]-27 13:18:42 Test Item Value Reference Range Interpretation Comments PHOSPHORUS (test code = 6098744917) 4.2 mg/dL 2.5-5.0 Lab Interpretation (test code = Normal 62976-5) [facility] (NA, K, CL, CO2, GLUCOSE, BUN, CREATININE, CA)2022-05-27 13:18:41 Test Item Value Reference Range Interpretation Comments NA (test code = 131 mmol/L 135-145 L 3166063542) K (test code = 4.7 mmol/L 3.5-5.0 1488123444) CL (test code = 95 mmol/L 98-108 L 5656713420) CO2 TOTAL (test code = 26 mmol/L 23-31 3250274936) AGAP (test code = 10 2-16 9407931658) BUN (test code = 68 mg/dL 7-23 H 4746635424) GLUCOSE (test code = 83 mg/dL 70-110 7623550969) CREATININE (test code = 8.83 mg/dL 0.60-1.25 H 7552830373) CALCIUM (test code = 8.1 mg/dL 8.6-10.6 L 7754399962) eGFR (test code = 6.5 mL/min/1.73m2 0231803637) TAHIRA (test code = TAHIRA) Association of [...] tests). Lab Interpretation Abnormal (test code = 17715-0) [facility] WITHOUT [id number] 12:45:23 Test Item Value Reference Range Interpretation Comments WBC (test code = 6690-2) 17.78 See_Comment H [A utomated message] The system [employer] generated this result transmit evelina reference range : 4.20 - 10.70 10*3/?L. The reference range was not used to interpret this result as normal/abnormal . RBC (test code = 789-8) 2.59 See_Comment L [Au tomated message] The system [facility] generated this result transmit evelina reference [...] 283 See_Comment [Au tomated message] The system [facility] generated this result transmit evelina reference range : 150 - 328 10*3/?L. The reference range was not used to interpret this result as normal/abnormal . MPV (test code = 10.6 fL 9.8-13.0 88809-0) RDW-CV (test code = 20.4 % 12.1-15.4 H 788-0) RDW-SD (test code = 57.6 fL 38.5-51.6 H 14562-4) NRBC x10^3 (test code = 0.06 See_Comment [Au tomated message] 1329386697) The system [facility] generated this result transmit evelina reference range : 10*3/?L. The reference range was not used to interpret this result as normal/abnormal . NRBC/100 WBC (test code 0.3 See_Comment [Au tomated message] = 7282500041) The system [facility] generated this result transmit evelina reference range : 0.0 - 10.0 /100 WBC s. The reference r lorena was not used to interpret this result as normal/abnormal . IPF % (test code = 4786451579) Lab Interpretation (test Abnormal code = 52778-5) [facility] WITH [id number] 22:24:54 Test Item Value Reference Range Interpretation Comments WBC (test code = 17.72 See_Comment H [Automated 6690-2) message] The system which generated this result transmit evelina reference range : 4.20 - 10.70 10*3/?L. The reference range was not used to interpret this result as normal/abnormal . RBC (test code = 2.90 See_Comment L [Automated 789-8) message] The system which generated this result transmit eveilna reference range : 4.26 - 5.52 10*6/?L. [...] (test code = 54.9 fL 38.5-51.6 H 93154-8) RDW-CV (test code = 19.7 % 12.1-15.4 H 788-0) PLT (test code = 237 See_Comment [Automated 777-3) message] The system which generated this result transmit evelina reference range : 150 - 328 10*3/ ?L. The reference range was not u sed to interpret th is result as normal/abnormal . MPV (test code = 9.9 fL 9.8-13.0 84739-5) NRBC/100 WBC (test 0.3 See_Comment [Automat ed code = 9231729846) message] The system which generated this result transmit evelina reference range : 0.0 - 10.0 /100 WBCs. The reference range was not used to interpret this result as normal/abnormal . NRBC x10^3 (test code 0.06 See_Comment [Auto mated = 4147418184) message] The system which generated this result transmit evelina reference range : 10*3/?L. The reference range was not used to interpret this result as normal/abnormal . GRAN MAT (NEUT) % 86.4 % (test code = 770-8) IMM GRAN % (test code 0.80 % = 5833856651) LYMPH % (test code = 3.3 % 736-9) MONO % (test code = 7.3 % 5905-5) EOS % (test code = 1.9 % 713-8) BASO % (test code = 0.3 % 706-2) GRAN MAT x10^3(ANC) 15.31 10*3/uL 1.99-6.95 H (test code = 0313769898) IMM GRAN x10^3 (test 0.14 10*3/uL 0.00-0.06 H code = 0110051633) LYMPH x10^3 (test code 0.58 10*3/uL 1.09-3.23 L = 731-0) MONO x10^3 (test code 1.30 10*3/uL 0.36-1.02 H = 742-7) EOS x10^3 (test code = 0.34 10*3/uL 0.06-0.53 711-2) BASO x10^3 (test code 0.05 10*3/uL 0.01-0.09 = 704-7) SIDEROTIC GRAN (test Suggestive of A code = 7795-8) TARGET CELLS (test 2+ See_Comment A [Automat ed code = 31484-0) message] The system which generated this result transmit evelina reference range : (none). The reference range was not used to interpret this result as normal/abnormal . Lab Interpretation Abnormal (test code = 42180-2) [facility]+K+GLU+CA2+2022-05-25 21:17:38 Test Item Value Reference Range Interpretation Comments PH (test code = 2) 7.46 7.35-7.45 H PCO2 (test code = 35 See_Comment [Automate d message] 0922249591) The system [employer] generated this result transmit evelina reference range : 35 - 45 mmHg. The reference range was not used to interpret this result as normal/abnormal . PO2 (test code = 101 See_Comment H [Automated message] 8268452826) The system [employer] generated this result transmit evelina reference range : 80 - 100 mmHg. The reference range was not used to interpret this result as normal/abnormal . HCO3 (test code = 25 See_Comment [Automate d message] 4187205071) The system [facility] generated this result transmit evelina reference range : 22 - 26 mEq/L. The reference range was not used to interpret this result as normal/abnormal . BE (test code = 0.9 See_Comment [Automated message] 8993335446) The system [employer] generated this result transmit evelina reference range : -3.0 - 3.0 mEq/ L. The reference r lorena was not used to interpret this result as normal/abnormal . THB (test code = 8.6 g/dL 13.5-18.0 L 4673559237) %O2HB (test code = 96.4 % 94.0-99.0 6470111859) %COHB ART (test code = 1.1 % 0.0-1.5 9058221367) %METHB ART (test code = 0.3 % 0.4-1.5 L 8689449770) VOL%O2 ART (test code = 11.8 % 15.0-23.0 L 7729258043) NA (test code = 131 mmol/L 135-145 L 4796034085) K+ (test code = 4.3 mmol/L 3.5-5.0 0176170396) AC CA IONZ (test code = 4.70 mg/dL 4.50-5.30 0619953228) GLUCOSE (test code = 120 mg/dL 70-110 H 5013132315) Lab Interpretation Abnormal (test code = 09748-8) [facility]ATED)2022-05-25 20:50:25 Test Item Value Reference Range Interpretation Comments POCT GLU (test code = 1361237427) 182 mg/dL 70-110 H Lab Interpretation (test code = Abnormal 31685-0) [facility] Packed RBC (in units), 1 Units 2022-05-25 20:12:38 Test Item Value Reference Range Interpretation Comments Cross Match Result Compatible (test code = 4409) ISBT Blood Type Code 6200 (test code = 489115) Unit Blood Type (test A Pos code = 4410) Unit Number (test [id number] code = 4411) Blood Expiration Date & Time (test code = 275916) Status Information Issued (test code = 4412) Product Red Blood Cells Identification (test code = 4413) Product Code (test [id number] Performed at [facility] code = 4414) Laboratory Services - [facility] Blood [address]vesP[facility] Hospitalellen [address]Ax[place] Free: [phone] A No. [id number] [facility] CULTURE(AEROBIC/ANAEROBIC)2022-05-25 13:24:36 Test Item Value Reference Range Interpretation Comments TISSUE CULTURE No aerobic/anaerobic (test code = organisms isolated 82829-9) Gram stain (test No Polymorphonuclear code = 664-3) leukocytes [facility] METABOLIC PANEL (NA, K, CL, CO2, GLUCOSE, BUN, CREATININE, CA)2022-05-25 12:41:02 Test Item Value Reference Range Interpretation Comments NA (test code = 130 mmol/L 135-145 L 1722389005) K (test code = 6.4 mmol/L 3.5-5.0 HH Slight 2627141373) hemolysis CL (test code = 97 mmol/L 98-108 L 6834544609) CO2 TOTAL (test code 20 mmol/L 23-31 L = 4699224261) AGAP (test code = 13 2-16 0892043489) BUN (test code = 81 mg/dL 7-23 H Slight 1482214770) hemolysis GLUCOSE (test code = 82 mg/dL 70-110 9219177639) CREATININE (test code 9.31 mg/dL 0.60-1.25 H = 0241609919) CALCIUM (test code = 8.5 mg/dL 8.6-10.6 L 2043774136) eGFR (test code = 6.1 mL/min/1.73m2 5713939810) TAHIRA (test code = TAHIRA) Association of [...] tests). Lab Interpretation Abnormal (test code = 45945-3) [facility]2023-02-25 12:34:20 Test Item Value Reference Range Interpretation Comments MAGNESIUM (test code = 7189098314) 1.7 mg/dL 1.7-2.4 Lab Interpretation (test code = Normal 07559-6) [facility]2023-02-25 12:34:20 Test Item Value Reference Range Interpretation Comments PHOSPHORUS (test code = 5012451036) 3.9 mg/dL 2.5-5.0 Lab Interpretation (test code = Normal 57824-5) [facility] WITH [id number] 12:23:21 Test Item Value Reference Range Interpretation Comments WBC (test code = 16.30 See_Comment H [Automated 6651-2) message] The system which generated this result transmit evelina reference range : 4.20 - 10.70 10*3/?L. The reference range was not used to interpret this result as normal/abnormal . RBC (test code = 2.79 See_Comment L [Automated 718-8) message] The system which generated this result [...] (test code = 54.4 fL 38.5-51.6 H 69591-5) RDW-CV (test code = 19.8 % 12.1-15.4 H 788-0) PLT (test code = 239 See_Comment [Automated 777-3) message] The system which generated this result transmit evelina reference range : 150 - 328 10*3/ ?L. The reference range was not u sed to interpret th is result as normal/abnormal . MPV (test code = 10.3 fL 9.8-13.0 62158-9) NRBC/100 WBC (test 0.6 See_Comment [Automat ed code = 2507285225) message] The system which generated this result transmit evelina reference range : 0.0 - 10.0 /100 WBCs. The reference range was not used to interpret this result as normal/abnormal . NRBC x10^3 (test code 0.09 See_Comment [Auto mated = 7455749315) message] The system which generated this result transmit evelina reference range : 10*3/?L. The reference range was not used to interpret this result as normal/abnormal . GRAN MAT (NEUT) % 75.2 % (test code = 770-8) IMM GRAN % (test code 0.70 % = 8927474462) LYMPH % (test code = 8.8 % 736-9) MONO % (test code = 10.2 % 5905-5) EOS % (test code = 4.8 % 713-8) BASO % (test code = 0.3 % 706-2) GRAN MAT x10^3(ANC) 12.25 10*3/uL 1.99-6.95 H (test code = 0977512066) IMM GRAN x10^3 (test 0.11 10*3/uL 0.00-0.06 H code = 9638353140) LYMPH x10^3 (test code 1.44 10*3/uL 1.09-3.23 = 731-0) MONO x10^3 (test code 1.67 10*3/uL 0.36-1.02 H = 742-7) EOS x10^3 (test code = 0.78 10*3/uL 0.06-0.53 H 711-2) BASO x10^3 (test code 0.05 10*3/uL 0.01-0.09 = 704-7) SIDEROTIC GRAN (test Suggestive of A code = 7795-8) TARGET CELLS (test 2+ See_Comment A [Automat ed code = 69097-1) message] The system which generated this result transmit evelina reference range : (none). The reference range was not used to interpret this result as normal/abnormal . REACT LYMPHS (test Rare code = 1588484621) Lab Interpretation Abnormal (test code = 75011-9) [facility] METABOLIC PANEL (NA, K, CL, CO2, GLUCOSE, BUN, CREATININE, CA)2022-05-24 13:28:58 Test Item Value Reference Range Interpretation Comments NA (test code = 136 mmol/L 135-145 7437891986) K (test code = 5.2 mmol/L 3.5-5.0 H Slight 0580256072) hemolysis CL (test code = 100 mmol/L 98-108 9925420522) CO2 TOTAL (test code 22 mmol/L 23-31 L = 9637859281) AGAP (test code = 14 2-16 3974146291) BUN (test code = 54 mg/dL 7-23 H Slight 2824919164) hemolysis GLUCOSE (test code = 87 mg/dL 70-110 3264224541) CREATININE (test code 7.75 mg/dL 0.60-1.25 H = 0254315328) CALCIUM (test code = 9.0 mg/dL 8.6-10.6 7645775382) eGFR (test code = 7.5 mL/min/1.73m2 2231285443) TAHIRA (test code = TAHIRA) Association of [...] tests). Lab Interpretation Abnormal (test code = 71945-9) [facility]2023-[facility]-24 13:28:58 Test Item Value Reference Range Interpretation Comments MAGNESIUM (test code = 7253863007) 1.8 mg/dL 1.7-2.4 Lab Interpretation (test code = Normal 80849-6) [facility]2023-[facility]-24 13:28:58 Test Item Value Reference Range Interpretation Comments PHOSPHORUS (test code = 0060215149) 4.5 mg/dL 2.5-5.0 Lab Interpretation (test code = Normal 54342-7) [facility]CBC WITHOUT [id number] 12:11:49 Test Item Value Reference Range Interpretation Comments WBC (test code = 6690-2) 16.21 See_Comment H [A utomated message] The system [employer] generated this result transmit evelina reference range : 4.20 - 10.70 10*3/?L. The reference range was not used to interpret this result as normal/abnormal . RBC (test code = 789-8) 3.68 See_Comment L [Au tomated message] The system [employer] generated this result transmit evelina reference range [...] 286 See_Comment [Au tomated message] The system [facility] generated this result transmit evelina reference range : 150 - 328 10*3/?L. The reference range was not used to interpret this result as normal/abnormal . MPV (test code = 10.7 fL 9.8-13.0 36660-1) RDW-CV (test code = 20.7 % 12.1-15.4 H 788-0) RDW-SD (test code = 58.6 fL 38.5-51.6 H 39497-9) NRBC x10^3 (test code = 0.13 See_Comment [Au tomated message] 3860864319) The system [employer] generated this result transmit evelina reference range : 10*3/?L. The reference range was not used to interpret this result as normal/abnormal . NRBC/100 WBC (test code 0.8 See_Comment [Au tomated message] = 6654733982) The system [facility] generated this result transmit evelina reference range : 0.0 - 10.0 /100 WBC s. The reference r lorena was not used to interpret this result as normal/abnormal . IPF % (test code = 5923177685) Lab Interpretation (test Abnormal code = 58965-9) [facility] GLUCOSE (AUTOMATED)2022-05-24 10:49:51 Test Item Value Reference Range Interpretation Comments POCT GLU (test code = 1525492047) 98 mg/dL 70-110 Lab Interpretation (test code = Normal 71080-6) [facility] GLUCOSE (AUTOMATED)2022-05-24 10:21:18 Test Item Value Reference Range Interpretation Comments POCT GLU (test code = 1374918690) 70 mg/dL 70-110 Lab Interpretation (test code = Normal 00040-8) [facility] METABOLIC PANEL (NA, K, CL, CO2, GLUCOSE, BUN, CREATININE, CA)2022-05-22 12:56:46 Test Item Value Reference Range Interpretation Comments NA (test code = 134 mmol/L 135-145 L 7803560904) K (test code = 4.8 mmol/L 3.5-5.0 5484755003) CL (test code = 97 mmol/L 98-108 L 7214980459) CO2 TOTAL (test code = 24 mmol/L 23-31 8724668188) AGAP (test code = 13 2-16 4917698789) BUN (test code = 47 mg/dL 7-23 H 0712149850) GLUCOSE (test code = 105 mg/dL 70-110 2817983009) CREATININE (test code = 9.37 mg/dL 0.60-1.25 H 8098938017) CALCIUM (test code = 9.0 mg/dL 8.6-10.6 2300938949) eGFR (test code = 6.1 mL/min/1.73m2 5325625848) TAHIRA (test code = TAHIRA) Association of [...] tests). Lab Interpretation Abnormal (test code = 74626-8) [facility]2023-[facility]-22 12:56:46 Test Item Value Reference Range Interpretation Comments MAGNESIUM (test code = 9301126694) 1.9 mg/dL 1.7-2.4 Lab Interpretation (test code = Normal 80044-5) [facility]2023-02-22 12:56:46 Test Item Value Reference Range Interpretation Comments PHOSPHORUS (test code = 2497818681) 6.3 mg/dL 2.5-5.0 H Lab Interpretation (test code = Abnormal 93100-7) [facility] MET[facility]OLIC PANEL (NA, K, CL, CO2, GLUCOSE, BUN, CREATININE, CA)2022-05-22 12:56:46 Test Item Value Reference Range Interpretation Comments NA (test code = 134 mmol/L 135-145 L 8259714510) K (test code = 4.8 mmol/L 3.5-5.0 4197809436) CL (test code = 97 mmol/L 98-108 L 5130799178) CO2 TOTAL (test code = 24 mmol/L 23-31 4951925771) AGAP (test code = 13 2-16 4948361896) BUN (test code = 47 mg/dL 7-23 H 2820419495) GLUCOSE (test code = 105 mg/dL 70-110 3937168380) CREATININE (test code = 9.37 mg/dL 0.60-1.25 H 2777888342) CALCIUM (test code = 9.0 mg/dL 8.6-10.6 9727693609) eGFR (test code = 6.1 mL/min/1.73m2 0711423198) TAHIRA (test code = TAHIRA) Association of [...] tests). Lab Interpretation Abnormal (test code = 48797-5) [facility]2023-[facility]-22 12:56:46 Test Item Value Reference Range Interpretation Comments MAGNESIUM (test code = 0041345597) 1.9 mg/dL 1.7-2.4 Lab Interpretation (test code = Normal 31168-3) [facility]2023-[facility]-22 12:56:46 Test Item Value Reference Range Interpretation Comments PHOSPHORUS (test code = 9642562996) 6.3 mg/dL 2.5-5.0 H Lab Interpretation (test code = Abnormal 38779-1) [facility] MET[facility]OLIC PAN[facility] (NA, K, CL, CO2, GLUCOSE, BUN, CREATININE, CA)2022-05-22 12:56:46 Test Item Value Reference Range Interpretation Comments NA (test code = 134 mmol/L 135-145 L 6899248218) K (test code = 4.8 mmol/L 3.5-5.0 5238698976) CL (test code = 97 mmol/L 98-108 L 8941649405) CO2 TOTAL (test code = 24 mmol/L 23-31 9488282132) AGAP (test code = 13 2-16 5147058106) BUN (test code = 47 mg/dL 7-23 H 1453808006) GLUCOSE (test code = 105 mg/dL 70-110 6682669139) CREATININE (test code = 9.37 mg/dL 0.60-1.25 H 0054284405) CALCIUM (test code = 9.0 mg/dL 8.6-10.6 9218380237) eGFR (test code = 6.1 mL/min/1.73m2 9579377063) TAHIRA (test code = TAHIRA) Association of [...] tests). Lab Interpretation Abnormal (test code = 48363-3) [facility]46 Test Item Value Reference Range Interpretation Comments MAGNESIUM (test code = 9834717242) 1.9 mg/dL 1.7-2.4 Lab Interpretation (test code = Normal 44334-0) [facility]23-[facility]-22 12:56:46 Test Item Value Reference Range Interpretation Comments PHOSPHORUS (test code = 4207860016) 6.3 mg/dL 2.5-5.0 H Lab Interpretation (test code = Abnormal 84969-5) [facility] and Screen - ONCE [id number] 12:32:41 Test Item Value Reference Range Interpretation Comments ABO & RH (test code A POSITIVE Performe d at [facility] = 20) Laboratory [facility] Blood [address] [address]Fgcq Free: [phone] A No. [id number] IAT (test code = Negative Performed a t [facility] 1185) Laboratory [facility] Blood [address] s [address]Eeeo Free: [phone] A No. [id number] [facility] and Screen - ONCE [id number] 12:32:41 Test Item Value Reference Range Interpretation Comments ABO & RH (test code A POSITIVE Performe d at [facility] = 20) Laboratory [facility] Blood [address] s [address]Vckh Free: [phone] A No. [id number] IAT (test code = Negative Performed a t [facility] 1185) Laboratory [facility] Blood [address] s [address]Fjfb Free: [phone] A No. [id number] [facility] and Screen - ONCE Ipuuwlj1510-11-18 12:32:41 Test Item Value Reference Range Interpretation Comments ABO & RH (test code A POSITIVE Performe d at [facility] = 20) Laboratory [facility] Blood [address] s [address]Bmav Free: [phone] A No. [id number] IAT (test code = Negative Performed a t [facility] 1185) Laboratory [facility] [place], [place] [address]Lina gary [address]Btxc Free: [phone] A No. [id number] [facility]Prothrombin Time / [id number] 12:15:22 Test Item Value Reference Range Interpretation Comments PROTIME PATIENT (test 13.6 See_Comment H [Auto mated message] code = 5964-2) The system [facility] generated this result transmitted ref erence range: 10.1 - 1 2.6 Seconds. The reference range was not used to int erpret this result as normal/abnormal . INR (test code = 6301-6) 1.2 Nor mal INR <1.1; Warfarin Therap eutic range 2.0 to 3. 0 or 2.5 to 3.5, dep ending upon the indica tions. Lab Interpretation (test Abnormal code = 41573-5) [facility] Time / [id number] 12:15:22 Test Item Value Reference Range Interpretation Comments PROTIME PATIENT (test 13.6 See_Comment H [Auto mated message] code = 5964-2) The system [facility] generated this result transmitted ref erence range: 10.1 - 1 2.6 Seconds. The reference range was not used to int erpret this result as normal/abnormal . INR (test code = 6301-6) 1.2 Nor mal INR <1.1; Warfarin Therap eutic range 2.0 to 3. 0 or 2.5 to 3.5, dep ending upon the indica tions. Lab Interpretation (test Abnormal code = 21907-5) [facility] Time / [id number] 12:15:22 Test Item Value Reference Range Interpretation Comments PROTIME PATIENT (test 13.6 See_Comment H [Auto mated message] code = 5964-2) The system [facility] generated this result transmitted ref erence range: 10.1 - 1 2.6 Seconds. The reference range was not used to int erpret this result as normal/abnormal . INR (test code = 6301-6) 1.2 Nor mal INR <1.1; Warfarin Therap eutic range 2.0 to 3. 0 or 2.5 to 3.5, dep ending upon the indica tions. Lab Interpretation (test Abnormal code = 68259-2) [facility] WITH [id number] 12:09:22 Test Item Value Reference Range Interpretation [...] (test code = 56.2 fL 38.5-51.6 H 14345-3) RDW-CV (test code = 20.3 % 12.1-15.4 H 788-0) PLT (test code = 274 See_Comment [Automated 777-3) message] The sy stem which generated this result transmitted reference range : 150 - 328 10*3/ ?L. The reference r lorena was not used to interpret this result as normal/abnormal . MPV (test code = 10.4 fL 9.8-13.0 91845-0) NRBC/100 WBC (test 0.7 See_Comment [Automat ed code = 8273941880) message] The system which generated this result transmitted reference range : 0.0 - 10.0 /100 WBCs. The refer ence range was not u sed to interpret th is result as normal/abnormal . NRBC x10^3 (test code 0.04 See_Comment [Auto mated = 1563132283) message] The s ystem which generated this result transmitted reference range : 10*3/?L. The reference range was not used to interpret this result as normal/abnormal . GRAN MAT (NEUT) % 56.8 % (test code = 770-8) IMM GRAN % (test code 0.70 % = 8427332742) LYMPH % (test code = 19.5 % 736-9) MONO % (test code = 15.1 % 5905-5) EOS % (test code = 6.5 % 713-8) BASO % (test code = 1.4 % 706-2) GRAN MAT x10^3(ANC) 3.35 10*3/uL 1.99-6.95 (test code = 3026253690) IMM GRAN x10^3 (test 0.04 10*3/uL 0.00-0.06 code = 5946977396) LYMPH x10^3 (test code 1.15 10*3/uL 1.09-3.23 = 731-0) MONO x10^3 (test code 0.89 10*3/uL 0.36-1.02 = 742-7) EOS x10^3 (test code = 0.38 10*3/uL 0.06-0.53 711-2) BASO x10^3 (test code 0.08 10*3/uL 0.01-0.09 = 704-7) Lab Interpretation Abnormal (test code = 21619-8) [facility] WITH [id number] 12:09:22 Test Item Value Reference Range Interpretation Comments WBC (test code = 5.89 See_Comment [Automated 8690-2) message] The sy stem which generated this result transmitted reference range : 4.20 - 10.70 10*3/?L. The reference range was not used to interpret this result as normal/abnormal . RBC (test code = 3.92 See_Comment L [Automated 579-8) message] The sy stem which generated this [...] (test code = 56.2 fL 38.5-51.6 H 05139-5) RDW-CV (test code = 20.3 % 12.1-15.4 H 788-0) PLT (test code = 274 See_Comment [Automated 777-3) message] The sy stem which generated this result transmitted reference range : 150 - 328 10*3/ ?L. The reference r lorena was not used to interpret this result as normal/abnormal . MPV (test code = 10.4 fL 9.8-13.0 24017-4) NRBC/100 WBC (test 0.7 See_Comment [Automat ed code = 5381769562) message] The system which generated this result transmitted reference range : 0.0 - 10.0 /100 WBCs. The refer ence range was not u sed to interpret th is result as normal/abnormal . NRBC x10^3 (test code 0.04 See_Comment [Auto mated = 5851606362) message] The s ystem which generated this result transmitted reference range : 10*3/?L. The reference range was not used to interpret this result as normal/abnormal . GRAN MAT (NEUT) % 56.8 % (test code = 770-8) IMM GRAN % (test code 0.70 % = 7226495030) LYMPH % (test code = 19.5 % 736-9) MONO % (test code = 15.1 % 5905-5) EOS % (test code = 6.5 % 713-8) BASO % (test code = 1.4 % 706-2) GRAN MAT x10^3(ANC) 3.35 10*3/uL 1.99-6.95 (test code = 6653356536) IMM GRAN x10^3 (test 0.04 10*3/uL 0.00-0.06 code = 6020797274) LYMPH x10^3 (test code 1.15 10*3/uL 1.09-3.23 = 731-0) MONO x10^3 (test code 0.89 10*3/uL 0.36-1.02 = 742-7) EOS x10^3 (test code = 0.38 10*3/uL 0.06-0.53 711-2) BASO x10^3 (test code 0.08 10*3/uL 0.01-0.09 = 704-7) Lab Interpretation Abnormal (test code = 95823-2) [facility] WITH [id number] 12:09:22 Test Item Value Reference Range Interpretation Comments WBC (test code = 5.89 See_Comment [Automated 9490-2) message] The sy stem which generated this [...] (test code = 56.2 fL 38.5-51.6 H 82487-2) RDW-CV (test code = 20.3 % 12.1-15.4 H 788-0) PLT (test code = 274 See_Comment [Automated 777-3) message] The sy stem which generated this result transmitted reference range : 150 - 328 10*3/ ?L. The reference r lorena was not used to interpret this result as normal/abnormal . MPV (test code = 10.4 fL 9.8-13.0 63163-0) NRBC/100 WBC (test 0.7 See_Comment [Automat ed code = 6049606198) message] The system which generated this result transmitted reference range : 0.0 - 10.0 /100 WBCs. The refer ence range was not u sed to interpret th is result as normal/abnormal . NRBC x10^3 (test code 0.04 See_Comment [Auto mated = 0627950289) message] The s ystem which generated this result transmitted reference range : 10*3/?L. The reference range was not used to interpret this result as normal/abnormal . GRAN MAT (NEUT) % 56.8 % (test code = 770-8) IMM GRAN % (test code 0.70 % = 5251002876) LYMPH % (test code = 19.5 % 736-9) MONO % (test code = 15.1 % 5905-5) EOS % (test code = 6.5 % 713-8) BASO % (test code = 1.4 % 706-2) GRAN MAT x10^3(ANC) 3.35 10*3/uL 1.99-6.95 (test code = 0582422456) IMM GRAN x10^3 (test 0.04 10*3/uL 0.00-0.06 code = 9053639584) LYMPH x10^3 (test code 1.15 10*3/uL 1.09-3.23 = 731-0) MONO x10^3 (test code 0.89 10*3/uL 0.36-1.02 = 742-7) EOS x10^3 (test code = 0.38 10*3/uL 0.06-0.53 711-2) BASO x10^3 (test code 0.08 10*3/uL 0.01-0.09 = 704-7) Lab Interpretation Abnormal (test code = 79707-2) [facility] Only[facility]2022-05-19 20:28:54 Test Item Value Reference Range Interpretation Comments ABO & RH (test code A Positive Performe d at [facility] = 20) [facility]3 [address] [facility] s [address]Rryr Free: [phone] A No. [id number] [facility] Confirmation (Lab Only)2022-05-19 20:28:54 Test Item Value Reference Range Interpretation Comments ABO & RH (test code A Positive Performe d at [facility] = 20) Laboratory [facility] Blood [address] [address]Yqau Free: [phone] A No. [id number] [facility] Confirmation (Lab Only)2022-05-19 20:28:54 Test Item Value Reference Range Interpretation Comments ABO & RH (test code A Positive Performe d at [facility] = 20) Laboratory [facility] Blood [address] [address]Uujj Free: [phone] A No. [id number] [facility] and Screen - ONCE Ylwituc4207-69-44 19:17:40 Test Item Value Reference Range Interpretation Comments ABO & RH (test code A POSITIVE Performe d at [facility] = 20) Laboratory [facility] Blood [address] [address]Fgnv Free: [phone] A No. [id number] IAT (test code = Negative Performed a t [facility] 1185) Laboratory [facility] Blood [address] [address]Szrf Free: [phone] A No. [id number] [facility] - ONCE Nkfblmo9652-07-18 19:17:40 Test Item Value Reference Range Interpretation Comments ABO & RH (test code A POSITIVE Performe d at [facility] = 20) Laboratory [facility] [address] [place] [address] s [address]Suys Free: [phone] A No. [id number] IAT (test code = Negative Performed a t [facility] 1185) Laboratory [facility] [address] [place] [address] s [address]Kvel Free: [phone] A No. [id number] [facility] - ONCE Zotiyhy2236-72-77 19:17:40 Test Item Value Reference Range Interpretation Comments ABO & RH (test code A POSITIVE Performe d at [facility] = 20) [facility]3 [address] [facility] s [address]Sphk Free: [phone] A No. [id number] IAT (test code = Negative Performed a t [facility] 1185) [facility]3 [address] [facility] s [address]Gnrx Free: [phone] A No. [id number] [facility] (BACTEC BOTTLE)2022-05-18 20:01:41 Test Item Value Reference Range Interpretation Comments Body Fluid No organisms No growth Previous prelim inary Culture isolated verified result was Screen-Aerobic Culture In Pr ogress (test code = on 05/13/2022 at 1702 [id number]) CSTPrevious preliminary zbigniew ified result was No [...] 4 days on 05/17/2022 at 14 01 PSYCHIATRIC SPECIALIST Body Fluid No organisms No growth Previous prelim inary Culture isolated verified result was Screen-Anaerobic Culture In Progress (test code = on 05/13/2022 at 1702 [id number]) CSTPrevious preliminary zbigniew ified result was No [...] 4 days on 05/17/2022 at 14 01 PSYCHIATRIC SPECIALIST [facility] (BACTEC BOTTLE)2022-05-18 20:01:41 Test Item Value Reference Range Interpretation Comments Body Fluid No organisms No growth Previous prelim inary Culture isolated verified result was Screen-Aerobic Culture In Pr ogress (test code = on 05/13/2022 at 1702 [id number]) CSTPrevious preliminary zbigniew ified result was No [...] 4 days on 05/17/2022 at 14 01 PSYCHIATRIC SPECIALIST Body Fluid No organisms No growth Previous prelim inary Culture isolated verified result was Screen-Anaerobic Culture In Progress (test code = on 05/13/2022 at 1702 [id number]) CSTPrevious preliminary zbigniew ified result was No [...] 4 days on 05/17/2022 at 14 01 PSYCHIATRIC SPECIALIST [facility] (BACTEC BOTTLE)2022-05-18 20:01:41 Test Item Value Reference Range Interpretation Comments Body Fluid No organisms No growth Previous prelim inary Culture isolated verified result was Screen-Aerobic Culture In Pr ogress (test code = on 05/13/2022 at 1702 [id number]) CSTPrevious preliminary zbigniew ified result was No [...] 4 days on 05/17/2022 at 14 01 PSYCHIATRIC SPECIALIST Body Fluid No organisms No growth Previous prelim inary Culture isolated verified result was Screen-Anaerobic Culture In Progress (test code = on 05/13/2022 at 1702 [id number]) CSTPrevious preliminary zbigniew ified result was No [...] 4 days on 05/17/2022 at 14 01 PSYCHIATRIC SPECIALIST [facility] Arlington[facility], [id number] 01:31:21 Test Item Value Reference Range Interpretation Comments GLUCOSE (test code = 8216333190) 102 mg/dL 70-110 Lab Interpretation (test code = Normal 21008-0) [facility] ArlingtonProtein Total Mcmnv7071-47-43 01:31:21 Test Item Value Reference Range Interpretation Comments T PROTEIN (test code = 0904724554) 10.2 g/dL 6.3-8.2 H Lab Interpretation (test code = Abnormal 92931-4) [facility] Arlington[facility] Pmsowoiwjatrz0771-22-85 01:31:21 Test Item Value Reference Range Interpretation Comments LDH (test code = 5536284315) 265 U/L 120-246 H Slight hemolysis Lab Interpretation (test Abnormal code = 50043-0) [facility], Bdkbd2524-71-01 01:31:21 Test Item Value Reference Range Interpretation Comments GLUCOSE (test code = 7742174496) 102 mg/dL 70-110 Lab Interpretation (test code = Normal 86058-2) [facility] Ygghvqgronqxj0031-47-75 01:31:21 Test Item Value Reference Range Interpretation Comments LDH (test code = 1836044304) 265 U/L 120-246 H Slight hemolysis Lab Interpretation (test Abnormal code = 14933-9) [facility] Total Wfjet7088-24-07 01:31:21 Test Item Value Reference Range Interpretation Comments T PROTEIN (test code = 1087238288) 10.2 g/dL 6.3-8.2 H Lab Interpretation (test code = Abnormal 59787-5) [facility], Dxwjk3120-69-78 01:31:21 Test Item Value Reference Range Interpretation Comments GLUCOSE (test code = 0713839850) 102 mg/dL 70-110 Lab Interpretation (test code = Normal 50627-8) [facility] Kfcuhqhhqxruz7394-35-88 01:31:21 Test Item Value Reference Range Interpretation Comments LDH (test code = 7795536904) 265 U/L 120-246 H Slight hemolysis Lab Interpretation (test Abnormal code = 16765-9) [facility] Total Uqghm4320-71-23 01:31:21 Test Item Value Reference Range Interpretation Comments T PROTEIN (test code = 2671394171) 10.2 g/dL 6.3-8.2 H Lab Interpretation (test code = Abnormal 52128-3) [facility], Ijbhk1195-06-63 01:31:21 Test Item Value Reference Range Interpretation Comments GLUCOSE (test code = 5796957327) 102 mg/dL 70-110 Lab Interpretation (test code = Normal 18851-4) [facility] Mblrxovbuuprv4852-70-38 01:31:21 Test Item Value Reference Range Interpretation Comments LDH (test code = 5023505249) 265 U/L 120-246 H Slight hemolysis Lab Interpretation (test Abnormal code = 20763-8) [facility] Total Apqzx5359-59-42 01:31:21 Test Item Value Reference Range Interpretation Comments T PROTEIN (test code = 6535760125) 10.2 g/dL 6.3-8.2 H Lab Interpretation (test code = Abnormal 63130-0) [facility] ArlingtonTransthoracic echo (TTE)2022-05-10 22:33:49 Test Item Value Reference Range Interpretation Comments Height (test code = 68 in 2872188892) Weight (test code = 167 lbs 8539649149) Systolic BP (test 152 mmHg code = 1393417435) Diastolic BP (test 117 mmHg code = 1740713058) Heart Rate (test code 71 bpm = 0991524036) LVOT stroke volume 59.00 cm3 (test code = 6374455209) LVOT diameter (test 2.14 cm code = 0941133544) LVOT area (test code 3.60 cm2 = 1380382188) MV Peak E Tiago (test 61.8 cm/s code = 9300946991) MV Peak A Tiago (test 94.1 cm/s code = 4017256686) E/A ratio (test code 0.66 ratio = 1247187758) E wave decelartion 0.29 s time (test code = 2154685410) MV E/e' septal (test 3.4 cm/s code = 9846863584) LA Volume Index (BP) 18.2 mL/m2 (test code = 9801926217) LA volume (BP) (test 34.5 mL code = 9841786696) LVOT peak tiago (test 104.1 cm/s code = 3759012342) LVOT mn grad (test 2.1 mmHg code = 5117222927) BSA (test code = 1.89 m2 4228912283) LA size (test code = 2.9 cm 6005877940) LAV(MOD-sp2) (test 38.30 mL code = 3446238739) LAV(MOD-sp4) (test 28.40 mL code = 0088246491) Tapse (test code = 1.30 cm 7083976264) AV LVOT peak gradient 4.3 mmHg (test code = 3054459272) LVOT peak VTI (test 16.3 cm code = 3288776725) LV V1 mean (test code 68.20 cm/s = 0502131191) MV Prop V (test code 33.40 cm/s = 9497366672) TR Peak Tiago (test 226.2 cm/s code = 1292402582) Triscuspid Valve 20.5 mmHg Regurgitation Peak Gradient (test code = 2595906288) Ao root diam (test 3.50 cm code = 4689232301) Aortic root (test 3.5 cm code = 8691102804) Ao root annulus (test 3.5 cm code = 9613050925) A2C EF (test code = 44.80 % 1204533459) EF(sp2-el) (test code 47.40 % = 5960723737) SV(MOD-sp2) (test 20.30 mL code = 1217199744) LV Diastolic Volume 61.3 mL (BP) (test code = 7074357650) A4C EF (test code = 50.90 % 0171268566) EF(MOD-bp) (test code 50.90 % = 2846710279) EF(sp4-el) (test code 52.80 % = 3833081914) LV Systolic Volume 30.1 mL (BP) (test code = 0027079764) SV(MOD-bp) (test code 31.20 mL = 4054510832) SV(MOD-sp4) (test 39.30 mL code = 6622622084) SV(sp4-el) (test code 43.60 mL = 9023295174) EF (test code = 51 4415141514) Left Ventricular 31.2 mL Stroke Volume by 2-D Biplane-MOD (test code = 8250805) Aortic valve mean 89.9 cm/s velocity (test code = 6067728985) Ao peak tiago (test 135.1 cm/s code = 7351550633) Ao VTI (test code = 24.1 cm 2681593656) AV area by cont VTI 2.5 cm2 (test code = 5556513420) AV area peak tiago 2.8 cm2 (test code = 6834725324) Ao max PG (test code 7.30 mm[Hg] = 3405471230) AV peak gradient 7.3 mmHg (test code = 2887877221) AV valve area (test 2.45 cm2 code = 1056978947) AV mean gradient 3.5 mmHg (test code = 0422873593) LV Diastolic Volume 32.4 mL/m2 Index (BP) (test code = 8637209726) LV Systolic Volume 15.9 mL/m2 Index (BP) (test code = 0913927775) LVIDS (test code = 3.00 cm 7152661827) Left Ventricular End 35.4 mL Systolic Volume by Teichholz Method (test code = 9582695) EF(Teich) (test code 49.30 % = 8995364093) LVIDD (test code = 4.00 cm 7326078963) Left Ventricular End 69.7 mL Diastolic Volume by Teichholz Method (test code = 8961458) FS (test code = 25 % 3237967608) EF - 2D (test code = 49.30 % 57617295) Radiology Study observation (narrative) (test code = 59051-1) TAHIRA (test code = TAHIRA) ?Left?Ventricle: Left [...] color flow Doppler, spectral Doppler and strain. [facility] ArlingtonCARCINOEMBRYONIC [id number] 19:04:03 Test Item Value Reference Range Interpretation Comments CEA (test code = 3.7 ng/mL 0.0-10.0 3224570965) TAHIRA (test code = TAHIRA) CEA Ranges: Non-Smokers ?0-5.0 ng/mLSmokers ? ? ?0-10.0 ng/mL Lab Interpretation (test Normal code = 59654-8) [facility]CINOEMBRYON[facility] [id number] 19:04:03 Test Item Value Reference Range Interpretation Comments CEA (test code = 3.7 ng/mL 0.0-10.0 7587965065) TAHIRA (test code = TAHIRA) CEA Ranges: Non-Smokers ?0-5.0 ng/mLSmokers ? ? ?0-10.0 ng/mL Lab Interpretation (test Normal code = 26645-1) [facility] [id number] 19:04:03 Test Item Value Reference Range Interpretation Comments CEA (test code = 3.7 ng/mL 0.0-10.0 5787414908) TAHIRA (test code = TAHIRA) CEA Ranges: Non-Smokers ?0-5.0 ng/mLSmokers ? ? ?0-10.0 ng/mL Lab Interpretation (test Normal code = 36545-4) [facility] [id number] 19:04:03 Test Item Value Reference Range Interpretation Comments CEA (test code = 3.7 ng/mL 0.0-10.0 1390588260) TAHIRA (test code = TAHIRA) CEA Ranges: Non-Smokers ?0-5.0 ng/mLSmokers ? ? ?0-10.0 ng/mL Lab Interpretation (test Normal code = 72824-5) [place] [id number] 18:27:40 Test Item Value Reference Range Interpretation Comments CA-125 (test code = 2241843656) 10.3 U/mL 0.0-35.0 Lab Interpretation (test code = Normal 10567-2) [place] 809002023-02-10 18:27:40 Test Item Value Reference Range Interpretation Comments CA-125 (test code = 1955653092) 10.3 U/mL 0.0-35.0 Lab Interpretation (test code = Normal 92867-8) [place] 809002023-02-10 18:27:40 Test Item Value Reference Range Interpretation Comments CA-125 (test code = 6922446039) 10.3 U/mL 0.0-35.0 Lab Interpretation (test code = Normal 35807-4) [place] 809002023-02-10 18:27:40 Test Item Value Reference Range Interpretation Comments CA-125 (test code = 2902613696) 10.3 U/mL 0.0-35.0 Lab Interpretation (test code = Normal 67310-6) [facility] ArlingtonHepatitis B Surface Antibody (HBsAb)2022-05-10 11:41:32 Test Item Value Reference Range Interpretation Comments HBsAB (test code = Positive 7658454173) HBsAb 397.00 mIU/mL Semi-Quantitative (test code = 4821694019) TAHIRA (test code = Interpretation: TAHIRA) ?Hepatitis B Surface Antibody ? Negative - Patient is considered to be not immune to infection with HBV. ? ? Positive - Anti-HBs detected at greater than or equal to 12 mIU/mL. ?Patient is considered to be immune to infection with HBV. ? [facility] B Core Antibody, Awigc4099-58-30 11:41:32 Test Item Value Reference Range Interpretation Comments HBC (test code = 0317992458) Negative HBC Semi-Quantitative (test code = 3.09 4627140613) [facility] B Surface Antibody (HBsAb)2022-05-10 11:41:32 Test Item Value Reference Range Interpretation Comments HBsAB (test code = Positive 9594101827) HBsAb 397.00 mIU/mL Semi-Quantitative (test code = 4936877010) TAHIRA (test code = Interpretation: TAHIRA) ?Hepatitis B Surface Antibody ? Negative - Patient is considered to be not immune to infection with HBV. ? ? Positive - Anti-HBs detected at greater than or equal to 12 mIU/mL. ?Patient is considered to be immune to infection with HBV. ? [facility] B Core Antibody, [id number] 11:41:32 Test Item Value Reference Range Interpretation Comments HBC (test code = 1592247197) Negative HBC Semi-Quantitative (test code = 3.09 6901649937) [facility] B Surface Antibody (HBsAb)2022-05-10 11:41:32 Test Item Value Reference Range Interpretation Comments HBsAB (test code = Positive 4795441780) HBsAb 397.00 mIU/mL Semi-Quantitative (test code = 6649936707) TAHIRA (test code = Interpretation: TAHIRA) ?Hepatitis B Surface Antibody ? Negative - Patient is considered to be not immune to infection with HBV. ? ? Positive - Anti-HBs detected at greater than or equal to 12 mIU/mL. ?Patient is considered to be immune to infection with HBV. ? [facility] B Core Antibody, [id number] 11:41:32 Test Item Value Reference Range Interpretation Comments HBC (test code = 3729312744) Negative HBC Semi-Quantitative (test code = 3.09 2258311999) [facility] B Surface Antibody (HBsAb)2022-05-10 11:41:32 Test Item Value Reference Range Interpretation Comments HBsAB (test code = Positive 7644939075) HBsAb 397.00 mIU/mL Semi-Quantitative (test code = 1622591846) TAHIRA (test code = Interpretation: TAHIRA) ?Hepatitis B Surface Antibody ? Negative - Patient is considered to be not immune to infection with HBV. ? ? Positive - Anti-HBs detected at greater than or equal to 12 mIU/mL. ?Patient is considered to be immune to infection with HBV. ? [facility] B Core Antibody, Beacd7798-03-31 11:41:32 Test Item Value Reference Range Interpretation Comments HBC (test code = 9212427944) Negative HBC Semi-Quantitative (test code = 3.09 2863606044) [facility] WITH [id number] 04:32:32 Test Item Value Reference Range Interpretation Comments WBC (test code = 8.57 See_Comment [Automated 4990-2) message] The sy stem which generated this result transmitted reference range : 4.20 - 10.70 10*3/?L. The reference range was not used to interpret this result as normal/abnormal . RBC (test code = 4.41 See_Comment [Automated 670-8) message] The sy stem which generated this [...] (test code = 55.4 fL 38.5-51.6 H 51803-3) RDW-CV (test code = 20.2 % 12.1-15.4 H 788-0) PLT (test code = 352 See_Comment H [Automated 777-3) message] The sy stem which generated this result transmitted reference range : 150 - 328 10*3/ ?L. The reference r lorena was not used to interpret this result as normal/abnormal . MPV (test code = 10.9 fL 9.8-13.0 29076-9) NRBC/100 WBC (test 0.0 See_Comment [Automat ed code = 1278729590) message] The system which generated this result transmitted reference range : 0.0 - 10.0 /100 WBCs. The refer ence range was not u sed to interpret th is result as normal/abnormal . NRBC x10^3 (test code See_Comment [Auto mated = 8618234566) message] The s ystem which generated this result transmitted reference range : 10*3/?L. The reference range was not used to interpret this result as normal/abnormal . GRAN MAT (NEUT) % 66.2 % (test code = 770-8) IMM GRAN % (test code 0.60 % = 0088320134) LYMPH % (test code = 14.8 % 736-9) MONO % (test code = 15.3 % 5905-5) EOS % (test code = 2.2 % 713-8) BASO % (test code = 0.9 % 706-2) GRAN MAT x10^3(ANC) 5.67 10*3/uL 1.99-6.95 (test code = 5015613300) IMM GRAN x10^3 (test 0.05 10*3/uL 0.00-0.06 code = 1983931491) LYMPH x10^3 (test code 1.27 10*3/uL 1.09-3.23 = 731-0) MONO x10^3 (test code 1.31 10*3/uL 0.36-1.02 H = 742-7) EOS x10^3 (test code = 0.19 10*3/uL 0.06-0.53 711-2) BASO x10^3 (test code 0.08 10*3/uL 0.01-0.09 = 704-7) Lab Interpretation Abnormal (test code = 99390-7) [facility] WITH [id number] 04:32:32 Test Item Value Reference Range Interpretation [...] (test code = 55.4 fL 38.5-51.6 H 82397-0) RDW-CV (test code = 20.2 % 12.1-15.4 H 788-0) PLT (test code = 352 See_Comment H [Automated 777-3) message] The sy stem which generated this result transmitted reference range : 150 - 328 10*3/ ?L. The reference r lorena was not used to interpret this result as normal/abnormal . MPV (test code = 10.9 fL 9.8-13.0 16496-4) NRBC/100 WBC (test 0.0 See_Comment [Automat ed code = 8296555456) message] The system which generated this result transmitted reference range : 0.0 - 10.0 /100 WBCs. The refer ence range was not u sed to interpret th is result as normal/abnormal . NRBC x10^3 (test code See_Comment [Auto mated = 0283461133) message] The s ystem which generated this result transmitted reference range : 10*3/?L. The reference range was not used to interpret this result as normal/abnormal . GRAN MAT (NEUT) % 66.2 % (test code = 770-8) IMM GRAN % (test code 0.60 % = 3131066711) LYMPH % (test code = 14.8 % 736-9) MONO % (test code = 15.3 % 5905-5) EOS % (test code = 2.2 % 713-8) BASO % (test code = 0.9 % 706-2) GRAN MAT x10^3(ANC) 5.67 10*3/uL 1.99-6.95 (test code = 9293473808) IMM GRAN x10^3 (test 0.05 10*3/uL 0.00-0.06 code = 4710692921) LYMPH x10^3 (test code 1.27 10*3/uL 1.09-3.23 = 731-0) MONO x10^3 (test code 1.31 10*3/uL 0.36-1.02 H = 742-7) EOS x10^3 (test code = 0.19 10*3/uL 0.06-0.53 711-2) BASO x10^3 (test code 0.08 10*3/uL 0.01-0.09 = 704-7) Lab Interpretation Abnormal (test code = 58769-2) [facility] WITH [id number] 04:32:32 Test Item Value Reference Range Interpretation Comments WBC (test code = 8.57 See_Comment [Automated 3161-2) message] The sy stem which generated this result transmitted reference range : 4.20 - 10.70 10*3/?L. The reference range was not used to interpret this result as normal/abnormal . RBC (test code = 4.41 See_Comment [Automated 444-8) message] The sy stem which generated this [...] (test code = 55.4 fL 38.5-51.6 H 98130-1) RDW-CV (test code = 20.2 % 12.1-15.4 H 788-0) PLT (test code = 352 See_Comment H [Automated 777-3) message] The sy stem which generated this result transmitted reference range : 150 - 328 10*3/ ?L. The reference r lorena was not used to interpret this result as normal/abnormal . MPV (test code = 10.9 fL 9.8-13.0 85521-7) NRBC/100 WBC (test 0.0 See_Comment [Automat ed code = 6433065948) message] The system which generated this result transmitted reference range : 0.0 - 10.0 /100 WBCs. The refer ence range was not u sed to interpret th is result as normal/abnormal . NRBC x10^3 (test code See_Comment [Auto mated = 3237043906) message] The s ystem which generated this result transmitted reference range : 10*3/?L. The reference range was not used to interpret this result as normal/abnormal . GRAN MAT (NEUT) % 66.2 % (test code = 770-8) IMM GRAN % (test code 0.60 % = 2923568264) LYMPH % (test code = 14.8 % 736-9) MONO % (test code = 15.3 % 5905-5) EOS % (test code = 2.2 % 713-8) BASO % (test code = 0.9 % 706-2) GRAN MAT x10^3(ANC) 5.67 10*3/uL 1.99-6.95 (test code = 4038221143) IMM GRAN x10^3 (test 0.05 10*3/uL 0.00-0.06 code = 0421538825) LYMPH x10^3 (test code 1.27 10*3/uL 1.09-3.23 = 731-0) MONO x10^3 (test code 1.31 10*3/uL 0.36-1.02 H = 742-7) EOS x10^3 (test code = 0.19 10*3/uL 0.06-0.53 711-2) BASO x10^3 (test code 0.08 10*3/uL 0.01-0.09 = 704-7) Lab Interpretation Abnormal (test code = 67520-8) [facility] VENOUS BLOOD [id number] 04:30:11 Test Item Value Reference Range Interpretation Comments PH (test code = 7.28 7.32-7.42 L 2058196032) PCO2 CARINA (test code = 53 See_Comment H [Auto mated message] 8450113796) The system iPipeline generated this result transmitted ref erence range: 41 - 51 mmHg. The reference r lorena was not used to interpret this result as normal/abnor mal. PO2 CARINA (test code = 54 See_Comment H [Autom ated message] 1860966910) The system iPipeline generated this result transmitted ref erence range: 25 - 40 mmHg. The reference r lorena was not used to interpret this result as normal/abnor mal. HCO3 CRAINA (test code = 24 See_Comment [Auto mated message] 8023863065) The system iPipeline generated this result transmitted ref erence range: 24 - 28 mEq/L. The reference r lorena was not used to interpret this result as normal/abnor mal. AC VBE(BEAKER) (test -3.0 mEq/L code = 2625788080) Lab Interpretation (test Abnormal code = 46827-6) [facility] VENOUS BLOOD [id number] 04:30:11 Test Item Value Reference Range Interpretation Comments PH (test code = 7.28 7.32-7.42 L 5544182600) PCO2 CARINA (test code = 53 See_Comment H [Auto mated message] 8670762358) The system [employer] generated this result transmitted ref erence range: 41 - 51 mmHg. The reference r lorena was not used to interpret this result as normal/abnor mal. PO2 CARINA (test code = 54 See_Comment H [Autom ated message] 0828948290) The system i[employer] generated this result transmitted ref erence range: 25 - 40 mmHg. The reference r lorena was not used to interpret this result as normal/abnor mal. HCO3 CARINA (test code = 24 See_Comment [Auto mated message] 3086991512) The system iPipeline generated this result transmitted ref erence range: 24 - 28 mEq/L. The reference r lorena was not used to interpret this result as normal/abnor mal. AC VBE(BEAKER) (test -3.0 mEq/L code = 6327498066) Lab Interpretation (test Abnormal code = 48980-9) [facility] VENOUS BLOOD [id number] 04:30:11 Test Item Value Reference Range Interpretation Comments PH (test code = 7.28 7.32-7.42 L [id number]) PCO2 CARINA (test code = 53 See_Comment H [Auto mated message] [id number]) The system iPipeline generated this result transmitted ref erence range: 41 - 51 mmHg. The reference r lorena was not used to interpret this result as normal/abnor mal. PO2 CARINA (test code = 54 See_Comment H [Autom ated message] [id number]) The system iPipeline generated this result transmitted ref erence range: 25 - 40 mmHg. The reference r lorena was not used to interpret this result as normal/abnor mal. HCO3 CARINA (test code = 24 See_Comment [Auto mated message] [id number]) The system iPipeline generated this result transmitted ref erence range: 24 - 28 mEq/L. The reference r lorena was not used to interpret this result as normal/abnor mal. AC VBE(BEAKER) (test -3.0 mEq/L code = 4150023527) Lab Interpretation (test Abnormal code = 29418-2) [facility] VENOUS BLOOD [id number] 04:30:11 Test Item Value Reference Range Interpretation Comments PH (test code = 7.28 7.32-7.42 L [id number]) PCO2 CARINA (test code = 53 See_Comment H [Auto mated message] [id number]) The system iPipeline generated this result transmitted ref erence range: 41 - 51 mmHg. The reference r lorena was not used to interpret this result as normal/abnor mal. PO2 CARINA (test code = 54 See_Comment H [Autom ated message] [id number]) The system iPipeline generated this result transmitted ref erence range: 25 - 40 mmHg. The reference r lorena was not used to interpret this result as normal/abnor mal. HCO3 CARINA (test code = 24 See_Comment [Auto mated message] [id number]) The system iPipeline generated this result transmitted ref erence range: 24 - 28 mEq/L. The reference r lorena was not used to interpret this result as normal/abnor mal. AC VBE(BEAKER) (test -3.0 mEq/L code = 9967018978) Lab Interpretation (test Abnormal code = 51212-4) [facility] GLUCOSE (AUTOMATED)2022-05-10 01:44:34 Test Item Value Reference Range Interpretation Comments POCT GLU (test code = 0462350740) 167 mg/dL 70-110 H Lab Interpretation (test code = Abnormal 26996-4) [facility] GLUCOSE (AUTOMATED)2022-05-10 01:44:34 Test Item Value Reference Range Interpretation Comments POCT GLU (test code = 7190703244) 167 mg/dL 70-110 H Lab Interpretation (test code = Abnormal 57468-5) [facility] GLUCOSE (AUTOMATED)2022-05-10 01:44:34 Test Item Value Reference Range Interpretation Comments POCT GLU (test code = 8801232771) 167 mg/dL 70-110 H Lab Interpretation (test code = Abnormal 60056-9) [facility] GLUCOSE (AUTOMATED)2022-05-10 01:44:34 Test Item Value Reference Range Interpretation Comments POCT GLU (test code = 3380628928) 167 mg/dL 70-110 H Lab Interpretation (test code = Abnormal 13131-0) [facility] GLUCOSE (AUTOMATED)2022-05-10 01:21:58 Test Item Value Reference Range Interpretation Comments POCT GLU (test code = 7652487197) 73 mg/dL 70-110 Lab Interpretation (test code = Normal 48994-9) [facility] GLUCOSE (AUTOMATED)2022-05-10 01:21:58 Test Item Value Reference Range Interpretation Comments POCT GLU (test code = 9884835403) 73 mg/dL 70-110 Lab Interpretation (test code = Normal 78739-1) [facility] GLUCOSE (AUTOMATED)2022-05-10 01:21:58 Test Item Value Reference Range Interpretation Comments POCT GLU (test code = 7365156441) 73 mg/dL 70-110 Lab Interpretation (test code = Normal 68923-0) [facility] [id number] 00:55:49 Test Item Value Reference Range Interpretation Comments K (test code = 9359542868) 7.5 mmol/L 3.5-5.0 HH Lab Interpretation (test code = Abnormal 11689-2) [facility] [id number] 00:55:49 Test Item Value Reference Range Interpretation Comments K (test code = 7470022799) 7.5 mmol/L 3.5-5.0 HH Lab Interpretation (test code = Abnormal 92147-9) [facility] [id number] 00:55:49 Test Item Value Reference Range Interpretation Comments K (test code = 5224519227) 7.5 mmol/L 3.5-5.0 HH Lab Interpretation (test code = Abnormal 97037-7) [facility] [id number] 00:55:49 Test Item Value Reference Range Interpretation Comments K (test code = 5441331187) 7.5 mmol/L 3.5-5.0 HH Lab Interpretation (test code = Abnormal 32361-4) [facility] [id number] 00:09:41 Test Item Value Reference Range Interpretation Comments NT-proBNP (test code = 30664 pg/mL <=125 H 4617308868) TAHIRA (test code = TAHIRA) Biotin has been reported to cause a negative bias, interpret results relative to patient's use of biotin. Lab Interpretation (test Abnormal code = 25700-2) [facility] [id number] 00:09:41 Test Item Value Reference Range Interpretation Comments NT-proBNP (test code = 61503 pg/mL <=125 H 2832355247) TAHIRA (test code = TAHIRA) Biotin has been reported to cause a negative bias, interpret results relative to patient's use of biotin. Lab Interpretation (test Abnormal code = 75945-8) [facility] [id number] 00:09:41 Test Item Value Reference Range Interpretation Comments NT-proBNP (test code = 08663 pg/mL <=125 H 8012227916) TAHIRA (test code = TAHIRA) Biotin has been reported to cause a negative bias, interpret results relative to patient's use of biotin. Lab Interpretation (test Abnormal code = 82627-6) [facility] [id number] 00:09:41 Test Item Value Reference Range Interpretation Comments NT-proBNP (test code = 77896 pg/mL <=125 H 1753884283) TAHIRA (test code = TAHIRA) Biotin has been reported to cause a negative bias, interpret results relative to patient's use of biotin. Lab Interpretation (test Abnormal code = 94097-8) [facility] [id number] 23:49:49 Test Item Value Reference Range Interpretation Comments TROPONIN I (test code = 0.045 ng/mL <=0.034 H 2170222706) TAHIRA (test code = TAHIRA) Reference (Normal) [...] biotin. Lab Interpretation Abnormal (test code = 75567-5) [facility] [id number] 23:49:49 Test Item Value Reference Range Interpretation Comments TROPONIN I (test code = 0.045 ng/mL <=0.034 H 2580645852) TAHIRA (test code = TAHIRA) Reference (Normal) [...] biotin. Lab Interpretation Abnormal (test code = 57299-3) [facility] [id number] 23:49:49 Test Item Value Reference Range Interpretation Comments TROPONIN I (test code = 0.045 ng/mL <=0.034 H 9118895916) TAHIRA (test code = TAHIRA) Reference (Normal) [...] biotin. Lab Interpretation Abnormal (test code = 21340-9) [facility] [id number] 23:49:49 Test Item Value Reference Range Interpretation Comments TROPONIN I (test code = 0.045 ng/mL <=0.034 H 1593871181) TAHIRA (test code = TAHIRA) Reference (Normal) [...] biotin. Lab Interpretation Abnormal (test code = 48652-5) [facility] MET[facility]OLIC PANEL (07981)2022-05-09 23:40:31 Test Item Value Reference Range Interpretation Comments NA (test code = 135 mmol/L 135-145 6072505281) K (test code = 6.7 mmol/L 3.5-5.0 HH 0985657444) CL (test code = 98 mmol/L 98-108 0153645136) CO2 TOTAL (test code = 23 mmol/L 23-31 5790293327) AGAP (test code = 14 2-16 6412621320) BUN (test code = 63 mg/dL 7-23 H 2912217008) GLUCOSE (test code = 78 mg/dL 70-110 7031609509) CREATININE (test code = 10.57 mg/dL 0.60-1.25 H 4937339610) TOTAL BILI (test code = 0.7 mg/dL 0.1-1.0 3547505647) CALCIUM (test code = 9.1 mg/dL 8.6-10.6 9625185598) T PROTEIN (test code = 8.0 g/dL 6.3-8.2 5796718746) ALBUMIN (test code = 4.1 g/dL 3.5-5.0 1224616615) ALK PHOS (test code = 87 U/L 34-122 1448903883) ALTv (test code = 16 U/L 5-50 1742-6) AST(SGOT) (test code = 26 U/L 13-40 6025261182) eGFR (test code = 5.3 mL/min/1.73m2 5057236297) TAHIRA (test code = TAHIRA) Association of [...] tests). Lab Interpretation Abnormal (test code = 89355-0) [facility]. METABOLIC PANEL (70274)2022-05-09 23:40:31 Test Item Value Reference Range Interpretation Comments NA (test code = 135 mmol/L 135-145 8401636147) K (test code = 6.7 mmol/L 3.5-5.0 HH 2869021123) CL (test code = 98 mmol/L 98-108 2585590955) CO2 TOTAL (test code = 23 mmol/L 23-31 3311682981) AGAP (test code = 14 2-16 2170249461) BUN (test code = 63 mg/dL 7-23 H 7069020188) GLUCOSE (test code = 78 mg/dL 70-110 4778010034) CREATININE (test code = 10.57 mg/dL 0.60-1.25 H 1517781029) TOTAL BILI (test code = 0.7 mg/dL 0.1-1.8 6374526660) CALCIUM (test code = 9.1 mg/dL 8.6-10.6 1019610737) T PROTEIN (test code = 8.0 g/dL 6.3-8.2 1775903383) ALBUMIN (test code = 4.1 g/dL 3.5-5.0 8861145398) ALK PHOS (test code = 87 U/L 34-122 1269196780) ALTv (test code = 16 U/L 5-50 1742-6) AST(SGOT) (test code = 26 U/L 13-40 2201317431) eGFR (test code = 5.3 mL/min/1.73m2 7061757551) TAHIRA (test code = TAHIRA) Association of [...] tests). Lab Interpretation Abnormal (test code = 55576-2) [facility]. METABOLIC PANEL (06793)2022-05-09 23:40:31 Test Item Value Reference Range Interpretation Comments NA (test code = 135 mmol/L 135-145 1945950961) K (test code = 6.7 mmol/L 3.5-5.0 9223870400) CL (test code = 98 mmol/L 98-108 8965201036) CO2 TOTAL (test code = 23 mmol/L 23-31 3050613313) AGAP (test code = 14 2-16 3781516449) BUN (test code = 63 mg/dL 7-23 H 2690037966) GLUCOSE (test code = 78 mg/dL 70-110 4313200163) CREATININE (test code = 10.57 mg/dL 0.60-1.25 H 1566793273) TOTAL BILI (test code = 0.7 mg/dL 0.1-1.2 3317960265) CALCIUM (test code = 9.1 mg/dL 8.6-10.6 3360454260) T PROTEIN (test code = 8.0 g/dL 6.3-8.2 7390777698) ALBUMIN (test code = 4.1 g/dL 3.5-5.0 6769186087) ALK PHOS (test code = 87 U/L 34-122 0267295617) ALTv (test code = 16 U/L 5-50 2-6) AST(SGOT) (test code = 26 U/L 13-40 9492886465) eGFR (test code = 5.3 mL/min/1.73m2 9973920015) TAHIRA (test code = TAHIRA) Association of [...] tests). Lab Interpretation Abnormal (test code = 10349-1) [facility] Test Item Value Reference Range Interpretation Comments MAGNESIUM (test code = 4593211079) 1.7 mg/dL 1.7-2.4 Lab Interpretation (test code = Normal 99351-8) [facility]13 Test Item Value Reference Range Interpretation Comments MAGNESIUM (test code = 2028527346) 1.7 mg/dL 1.7-2.4 Lab Interpretation (test code = Normal 58876-5) [facility]13 Test Item Value Reference Range Interpretation Comments MAGNESIUM (test code = 0081960817) 1.7 mg/dL 1.7-2.4 Lab Interpretation (test code = Normal 38201-3) [facility] WITH [id number] 22:58:09 Test Item Value Reference Range Interpretation Comments WBC (test code = 7.63 See_Comment [Automated 0090-2) message] The sy stem which generated this result transmitted reference range : 4.20 - 10.70 10*3/?L. The reference range was not used to interpret this result as normal/abnormal . RBC (test code = 4.30 See_Comment [Automated 929-8) message] The sy stem which generated this [...] (test code = 53.5 fL 38.5-51.6 H 08793-3) RDW-CV (test code = 19.9 % 12.1-15.4 H 788-0) PLT (test code = 350 See_Comment H [Automated 777-3) message] The sy stem which generated this result transmitted reference range : 150 - 328 10*3/ ?L. The reference r lorena was not used to interpret this result as normal/abnormal . MPV (test code = 10.2 fL 9.8-13.0 59069-1) NRBC/100 WBC (test 0.0 See_Comment [Automat ed code = 2058550318) message] The system which generated this result transmitted reference range : 0.0 - 10.0 /100 WBCs. The refer ence range was not u sed to interpret th is result as normal/abnormal . NRBC x10^3 (test code See_Comment [Auto mated = 4544504535) message] The s ystem which generated this result transmitted reference range : 10*3/?L. The reference range was not used to interpret this result as normal/abnormal . GRAN MAT (NEUT) % 74.1 % (test code = 770-8) IMM GRAN % (test code 0.10 % = 2114067682) LYMPH % (test code = 11.8 % 736-9) MONO % (test code = 11.0 % 5905-5) EOS % (test code = 2.1 % 713-8) BASO % (test code = 0.9 % 706-2) GRAN MAT x10^3(ANC) 5.65 10*3/uL 1.99-6.95 (test code = 2809808125) IMM GRAN x10^3 (test 0.00-0.06 code = 7400632125) LYMPH x10^3 (test code 0.90 10*3/uL 1.09-3.23 L = 731-0) MONO x10^3 (test code 0.84 10*3/uL 0.36-1.02 = 742-7) EOS x10^3 (test code = 0.16 10*3/uL 0.06-0.53 711-2) BASO x10^3 (test code 0.07 10*3/uL 0.01-0.09 = 704-7) HJ BODIES (test code = Present A 7793-3) TARGET CELLS (test 2+ See_Comment A [Automat ed code = 12171-1) message] The system which generated this result [...] . Lab Interpretation Abnormal (test code = 77786-6) [facility] WITH [id number] 22:58:09 Test Item Value Reference Range Interpretation [...] (test code = 53.5 fL 38.5-51.6 H 26845-6) RDW-CV (test code = 19.9 % 12.1-15.4 H 788-0) PLT (test code = 350 See_Comment H [Automated 777-3) message] The sy stem which generated this result transmitted reference range : 150 - 328 10*3/ ?L. The reference r lorena was not used to interpret this result as normal/abnormal . MPV (test code = 10.2 fL 9.8-13.0 05151-3) NRBC/100 WBC (test 0.0 See_Comment [Automat ed code = 7664382976) message] The system which generated this result transmitted reference range : 0.0 - 10.0 /100 WBCs. The refer ence range was not u sed to interpret th is result as normal/abnormal . NRBC x10^3 (test code See_Comment [Auto mated = 1291948073) message] The s ystem which generated this result transmitted reference range : 10*3/?L. The reference range was not used to interpret this result as normal/abnormal . GRAN MAT (NEUT) % 74.1 % (test code = 770-8) IMM GRAN % (test code 0.10 % = 5570884366) LYMPH % (test code = 11.8 % 736-9) MONO % (test code = 11.0 % 5905-5) EOS % (test code = 2.1 % 713-8) BASO % (test code = 0.9 % 706-2) GRAN MAT x10^3(ANC) 5.65 10*3/uL 1.99-6.95 (test code = 0675209764) IMM GRAN x10^3 (test 0.00-0.06 code = 2698021810) LYMPH x10^3 (test code 0.90 10*3/uL 1.09-3.23 L = 731-0) MONO x10^3 (test code 0.84 10*3/uL 0.36-1.02 = 742-7) EOS x10^3 (test code = 0.16 10*3/uL 0.06-0.53 711-2) BASO x10^3 (test code 0.07 10*3/uL 0.01-0.09 = 704-7) HJ BODIES (test code = Present A 7793-3) TARGET CELLS (test 2+ See_Comment A [Automat ed code = 05932-7) message] The system which generated this result [...] . Lab Interpretation Abnormal (test code = 50161-1) [facility] WITH [id number] 22:58:09 Test Item Value Reference Range Interpretation [...] (test code = 53.5 fL 38.5-51.6 H 02210-3) RDW-CV (test code = 19.9 % 12.1-15.4 H 788-0) PLT (test code = 350 See_Comment H [Automated 777-3) message] The sy stem which generated this result transmitted reference range : 150 - 328 10*3/ ?L. The reference r lorena was not used to interpret this result as normal/abnormal . MPV (test code = 10.2 fL 9.8-13.0 21323-9) NRBC/100 WBC (test 0.0 See_Comment [Automat ed code = 6186912944) message] The system which generated this result transmitted reference range : 0.0 - 10.0 /100 WBCs. The refer ence range was not u sed to interpret th is result as normal/abnormal . NRBC x10^3 (test code See_Comment [Auto mated = 2006735713) message] The s ystem which generated this result transmitted reference range : 10*3/?L. The reference range was not used to interpret this result as normal/abnormal . GRAN MAT (NEUT) % 74.1 % (test code = 770-8) IMM GRAN % (test code 0.10 % = 6213778035) LYMPH % (test code = 11.8 % 736-9) MONO % (test code = 11.0 % 5905-5) EOS % (test code = 2.1 % 713-8) BASO % (test code = 0.9 % 706-2) GRAN MAT x10^3(ANC) 5.65 10*3/uL 1.99-6.95 (test code = 1101308672) IMM GRAN x10^3 (test 0.00-0.06 code = 5189808817) LYMPH x10^3 (test code 0.90 10*3/uL 1.09-3.23 L = 731-0) MONO x10^3 (test code 0.84 10*3/uL 0.36-1.02 = 742-7) EOS x10^3 (test code = 0.16 10*3/uL 0.06-0.53 711-2) BASO x10^3 (test code 0.07 10*3/uL 0.01-0.09 = 704-7) HJ BODIES (test code = Present A 7793-3) TARGET CELLS (test 2+ See_Comment A [Automat ed code = 19818-2) message] The system which generated this result [...] . Lab Interpretation Abnormal (test code = 60504-7) [facility] [id number] 00:13:00 Test Item Value Reference Range Interpretation Comments AFB culture No growth Specimen isolate (test after 6 weeks InformationSp ecimen code = 543-9) of Source: Tissue Specimen incubation. Site: Arm: Left arter[facility]ula [facility] [id number] 00:13:00 Test Item Value Reference Range Interpretation Comments AFB culture No growth Specimen isolate (test after 6 weeks InformationSp ecimen code = 543-9) of Source: Tissue Specimen incubation. Site: Arm: Left arterioven[facility] f istula [facility] [id number] 00:13:00 Test Item Value Reference Range Interpretation Comments AFB culture No growth Specimen isolate (test after 6 weeks InformationSp ecimen code = 543-9) of Source: Tissue Specimen incubation. Site: Arm: Left arteriovenous f istula [facility] [id number] 00:13:00 Test Item Value Reference Range Interpretation Comments AFB culture No growth Specimen isolate (test after 6 weeks InformationSp ecimen code = 543-9) of Source: Tissue Specimen incubation. Site: Arm: Left arteriovenous f istula [facility] [id number] 00:13:00 Test Item Value Reference Range Interpretation Comments AFB culture No growth Specimen isolate (test after 6 weeks InformationSp ecimen code = 543-9) of Source: Tissue Specimen incubation. Site: Arm: Left arteriovenous f istula [facility] [id number] 00:13:00 Test Item Value Reference Range Interpretation Comments AFB culture No growth Specimen isolate (test after 6 weeks InformationSp ecimen code = 543-9) of Source: Tissue Specimen incubation. Site: Arm: Left arteriovenous f istula [facility] [id number] 00:13:00 Test Item Value Reference Range Interpretation Comments AFB culture No growth Specimen isolate (test after 6 weeks InformationSp ecimen code = 543-9) of Source: Tissue Specimen incubation. Site: Arm: Left arteriovenous f istula [facility] [id number] 00:13:00 Test Item Value Reference Range Interpretation Comments AFB culture No growth Specimen isolate (test after 6 weeks InformationSp ecimen code = 543-9) of Source: Tissue Specimen incubation. Site: Arm: Left arteriovenous f istula [facility] [id number] 00:13:00 Test Item Value Reference Range Interpretation Comments AFB culture No growth Specimen isolate (test after 6 weeks InformationSp ecimen code = 543-9) of Source: Tissue Specimen incubation. Site: Arm: Left arteriovenous f istula tissue [facility] [id number] 00:15:00 Test Item Value Reference Range Interpretation Comments Fungus culture No growth Specimen isolate (test after 4 weeks InformationSp ecimen code = 580-1) of Source: Tissue Specimen incubation. Site: Arm: Left arteriovenous f istula tissue [facility] [id number] 00:15:00 Test Item Value Reference Range Interpretation Comments Fungus culture No growth Specimen isolate (test after 4 weeks InformationSp ecimen code = 580-1) of Source: Tissue Specimen incubation. Site: Arm: Left arteriovenous f istula tissue [facility] [id number] 00:15:00 Test Item Value Reference Range Interpretation Comments Fungus culture No growth Specimen isolate (test after 4 weeks InformationSp ecimen code = 580-1) of Source: Tissue Specimen incubation. Site: Arm: Left arteriovenous f istula tissue [facility] [id number] 00:15:00 Test Item Value Reference Range Interpretation Comments Fungus culture No growth Specimen isolate (test after 4 weeks InformationSp ecimen code = 580-1) of Source: Tissue Specimen incubation. Site: Arm: Left arteriovenous f istula tissue [facility] [id number] 00:15:00 Test Item Value Reference Range Interpretation Comments Fungus culture No growth Specimen isolate (test after 4 weeks InformationSp ecimen code = 580-1) of Source: Tissue Specimen incubation. Site: Arm: Left arteriovenous f istula tissue [facility] [id number] 00:15:00 Test Item Value Reference Range Interpretation Comments Fungus culture No growth Specimen isolate (test after 4 weeks InformationSp ecimen code = 580-1) of Source: Tissue Specimen incubation. Site: Arm: Left arteriovenous f istula tissue [facility] [id number] 00:15:00 Test Item Value Reference Range Interpretation Comments Fungus culture No growth Specimen isolate (test after 4 weeks InformationSp ecimen code = 580-1) of Source: Tissue Specimen incubation. Site: Arm: Left arteriovenous f istula tissue for [facility] ikqlgsm5056-29-10 00:15:00 Test Item Value Reference Range Interpretation Comments Fungus culture No growth Specimen isolate (test after 4 weeks InformationSp ecimen code = 580-1) of Source: Tissue Specimen incubation. Site: Arm: Left arteriovenous f istula tissue for [facility] [id number] 00:15:00 Test Item Value Reference Range Interpretation Comments Fungus culture No growth Specimen isolate (test after 4 weeks InformationSp ecimen code = 580-1) of Source: Tissue Specimen incubation. Site: Arm: Left arteriovenous f istula [facility] [id number] 14:37:00 Test Item Value Reference Range Interpretation Comments Anaerobic No anaerobic Specimen culture isolate organisms InformationS pecimen (test code = isolated. Source: TissueS pecimen 50779-1) Site: Arm: Left arteriovenous f istula [facility] [id number] 14:37:00 Test Item Value Reference Range Interpretation Comments Anaerobic No anaerobic Specimen culture isolate organisms InformationS pecimen (test code = isolated. Source: TissueS pecimen 72969-2) Site: Arm: Left arteriovenous f istula [facility] [id number] 14:37:00 Test Item Value Reference Range Interpretation Comments Anaerobic No anaerobic Specimen culture isolate organisms InformationS pecimen (test code = isolated. Source: TissueS pecimen 62062-3) Site: Arm: Left arteriovenous f istula [facility] zkimarn6247-28-95 14:37:00 Test Item Value Reference Range Interpretation Comments Anaerobic No anaerobic Specimen culture isolate organisms InformationS pecimen (test code = isolated. Source: TissueS pecimen 03225-5) Site: Arm: Left arteriovenous f istula [facility] [id number] 14:37:00 Test Item Value Reference Range Interpretation Comments Anaerobic No anaerobic Specimen culture isolate organisms InformationS pecimen (test code = isolated. Source: TissueS pecimen 88689-6) Site: Arm: Left arteriovenous f istula tissue for cult ure [facility] [id number] 14:37:00 Test Item Value Reference Range Interpretation Comments Anaerobic No anaerobic Specimen culture isolate organisms InformationS pecimen (test code = isolated. Source: TissueS pecimen 69342-0) Site: Arm: Left arteriovenous f istula tissue for [facility] ure [facility] [id number] 14:37:00 Test Item Value Reference Range Interpretation Comments Anaerobic No anaerobic Specimen culture isolate organisms InformationS pecimen (test code = isolated. Source: TissueS pecimen 39224-2) Site: Arm: Left arteriovenous f istula tissue for cult ure [facility] [id number] 14:37:00 Test Item Value Reference Range Interpretation Comments Anaerobic No anaerobic Specimen culture isolate organisms InformationS pecimen (test code = isolated. Source: TissueS pecimen 35902-2) Site: Arm: Left arteriovenous f istula tissue for cult ure [facility] [id number] 14:37:00 Test Item Value Reference Range Interpretation Comments Anaerobic No anaerobic Specimen culture isolate organisms InformationS pecimen (test code = isolated. Source: TissueS pecimen 26380-0) Site: Arm: Left arteriovenous f istula tissue for [facility] ure [facility] [id number] 14:37:00 Test Item Value Reference Range Interpretation Comments Anaerobic No anaerobic Specimen culture isolate organisms InformationS pecimen (test code = isolated. Source: TissueS pecimen 65499-1) Site: Arm: Left arteriovenous f istula tissue for [facility] [id number] 03:13:00 Test Item Value Reference Range Interpretation Comments Tissue culture No growth Specimen isolate (test after 3 days. InformationSp ecimen code = 44549-4) Source: Tiss ueSpecimen Site: Arm: Left arteriovenous f istula tissue for [facility] [id number] 03:13:00 Test Item Value Reference Range Interpretation Comments Tissue culture No growth Specimen isolate (test after 3 days. InformationSp ecimen code = 16690-9) Source: Tiss ueSpecimen Site: Arm: Left arteriovenous f istula tissue [facility] [id number] 03:13:00 Test Item Value Reference Range Interpretation Comments Tissue culture No growth Specimen isolate (test after 3 days. InformationSp ecimen code = 31619-8) Source: [facility], [place], [facility] ueSpecimen Site: Arm: Left arteriovenous f istula tissue for cult [facility] [id number] 03:13:00 Test Item Value Reference Range Interpretation Comments Tissue culture No growth Specimen isolate (test after 3 days. InformationSp ecimen code = 10379-4) Source: [facility], [place], [facility] ueSpecimen Site: Arm: Left arteriovenous f istula tissue for [facility] [id number] 03:13:00 Test Item Value Reference Range Interpretation Comments Tissue culture No growth Specimen isolate (test after 3 days. InformationSp ecimen code = 97233-2) [facility] Site: Arm: Left arteriovenous f istula tissue for cult [facility] [id number] 03:13:00 Test Item Value Reference Range Interpretation Comments Tissue culture No growth Specimen isolate (test after 3 days. InformationSp ecimen code = 29135-9) Source: [facility], [place] Site: Arm: Left arteriovenous f istula tissue for [facility] [id number] 03:13:00 Test Item Value Reference Range Interpretation Comments Tissue culture No growth Specimen isolate (test after 3 days. InformationSp ecimen code = 29202-0) Source: [facility], [place], [facility] ueSpecimen Site: Arm: Left arteriovenous f istula tissue for cult [facility] [id number] 03:13:00 Test Item Value Reference Range Interpretation Comments Tissue culture No growth Specimen isolate (test after 3 days. InformationSp ecimen code = 10547-3) Source: [facility], [place], [facility] ueSpecimen Site: Arm: Left arteriovenous f istula tissue for cult [facility] [id number] 03:13:00 Test Item Value Reference Range Interpretation Comments Tissue culture No growth Specimen isolate (test after 3 days. InformationSp ecimen code = 51378-8) Source: [facility] [place], [facility] ueSpecimen Site: Arm: Left arteriovenous f istula tissue for [facility] [id number] 03:13:00 Test Item Value Reference Range Interpretation Comments Tissue culture No growth Specimen isolate (test [facility]. [facility] Source: Tiss ueSpecimen Site: Arm: Left arteriovenous f istula [facility] Complete, (w Contrast, Strain and 3D if needed)2021-12-18 19:53:26 Test Item Value Reference Interpretation Comments Range Ao Root Diameter 3.28 cm (test code = 3027676520) AoV Area, Vmax (test 3.67 cm2 >=1.5 code = 1634212857) AoV Area, VTI (test 3.72 cm2 code = 8114179054) AoV Mean PG (test 3.84 mmHg code = 6951272531) AoV Peak PG (test 7.04 mmHg code = 8413966582) AoV Vmax (test code 1.37 m/s = 6973530702) AoV VTI (test code = 0.24 m 7412184611) IVS,d (test code = 1.79 cm 0.6-1 A 0013343801) IVS/LVPW,2D (test 1.28 code = 3645230465) Left Atrium 3.69 cm Dimension Anterior (test code = 9366743126) LV,d (test code = 4.62 cm 7906588403) LV EF,2D (test code 66.15 % = 5824672668) LV,s (test code = 3.22 cm 5922869169) LVOT area (test code 3.90 cm2 = 8308080184) LVOT Diam,S (test 2.23 cm code = 7907506071) LVOT Vmax (test code 1.27 m/s = 3446268529) LVOT VTI (test code 0.27 m = 8409307538) LVPWD,d (test code = 1.41 cm 0.60-1.19 A 1375896880) PV Pk Grad (test 5.97 mmHg code = 5872567809) PV VMAX (test code = 1.22 m/s 0316508560) RVOT Vmax (test code 1.17 m/s = 4238798663) MV E A ratio (test 0.80 code = 6554297210) E wave decelartion 154.26 See_Comment A [Automat ed time (test code = message] T he 9099805969) system which generated this result transmitted reference range : 200 msec. The reference range was not used to interpret this result as normal/abnormal . MV Peak A Tiago (test 1.01 m/s code = 9882686592) MV valve area p 1/2 4.92 cm2 method (test code = 4152458008) MV Peak E Tiago (test 0.81 m/s code = 9334322889) MV stenosis pressure 44.73 ms 1/2 time (test code = 4969632460) LVOT stroke volume 1.05 ml (test code = 3102552914) AV LVOT peak 6.26 mmHg gradient (test code = 4207766133) Ascending aorta 3.89 cm (test code = 8447497293) Ao Root Diameter 3.28 cm (test code = 1604739674) LV SYS VOL (test 41.61 ml 21-61 code = 4292444804) LV BRICEÑO VOL (test 98.42 ml 62-150 code = 3075880998) LA area s A4C (test 22.85 cm2 code = 2698586574) LV SV Teich 2D (test 56.81 ml code = 9060051834) LV Vol s Teich PSAX 41.61 ml (test code = 6930689908) RVOT pk grad (test 5.44 mmHg code = 5219483744) AoV Vmn (test code = 0.93 m/s 8567584571) LV FS Teich 2D (test 30.31 code = 6962103988) MV AE ratio (test 1.25 code = 9610856059) LV FS Cube 2D (test 30.31 code = 1011529815) LVOT Vmn (test code 0.82 = 6420064566) Aov area Vmn (test 3.64 cm2 code = 9086763280) LVOT mean grad (test 3.02 mmHg code = 1435284577) MAX Pred HR (test 173.13 code = 5078295480) 85 of MPHR (test 147.16 code = 9233419439) Calc MPHR (test code 173.13 bpm = 2415147443) LV SV Cube 2D (test 65.31 ml code = 2667339968) LV vol d cube 2D 98.73 ml (test code = 0993898847) LV vol s cube 2D 33.42 ml (test code = 0291835236) MV Decel slope (test 5.22 m/s2 code = 9348527159) Pred Exer Dur R1 10.72 (test code = 1510975146) Pred METS R1 (test 10.97 code = 8833481126) LA Vol MOD A4C (test 54.72 ml code = 5313838178) E tanesha sept (test 0.04 code = 3964036964) E prime lat (test 0.11 code = 2483798985) Velocity Ratio 0.93 m/s (V1/V2) (test code = 4689) EF (test code = 58 % 9977399692) E/A ratio (test code 0.80 = 6489759404) LVOT VTI (CM) (test 27.00 cm code = 7141011028) TAHIRA (test code = Normal left TAHIRA) [...] obtained. Lab Interpretation Abnormal (test code = 87135-7) [facility], (w Contrast, Strain and 3D if needed)2021-12-18 19:53:26 Test Item Value Reference Interpretation Comments Range Ao Root Diameter 3.28 cm (test code = 1675590881) AoV Area, Vmax (test 3.67 cm2 >=1.5 [Autom ated code = 4477608785) message] The system which generated this result transmitted reference range : >=1.5. The reference range was not used to interpret this result as normal/abnormal . AoV Area, VTI (test 3.72 cm2 code = 2872381918) AoV Mean PG (test 3.84 mmHg code = 7398462066) AoV Peak PG (test 7.04 mmHg code = 5996575254) AoV Vmax (test code 1.37 m/s = 8618491486) AoV VTI (test code = 0.24 m 7528396804) IVS,d (test code = 1.79 cm 0.6-1 A 0048733390) IVS/LVPW,2D (test 1.28 code = 5331464225) Left Atrium 3.69 cm Dimension Anterior (test code = 5806941264) LV,d (test code = 4.62 cm 8389918380) LV EF,2D (test code 66.15 % = 1868270874) LV,s (test code = 3.22 cm 6474177503) LVOT area (test code 3.90 cm2 = 8232428312) LVOT Diam,S (test 2.23 cm code = 4567965878) LVOT Vmax (test code 1.27 m/s = 5734200770) LVOT VTI (test code 0.27 m = 3987171177) LVPWD,d (test code = 1.41 cm 0.60-1.19 A 7051036805) PV Pk Grad (test 5.97 mmHg code = 9950051226) PV VMAX (test code = 1.22 m/s 7680417902) RVOT Vmax (test code 1.17 m/s = 8609829539) MV E A ratio (test 0.80 code = 6387851823) E wave decelartion 154.26 See_Comment A [Automat ed time (test code = message] T he 5345541618) system which generated this result transmitted reference range : 200 msec. The reference range was not used to interpret this result as normal/abnormal . MV Peak A Tiago (test 1.01 m/s code = 2609391003) MV valve area p 1/2 4.92 cm2 method (test code = 0341424017) MV Peak E Tiago (test 0.81 m/s code = 8477907914) MV stenosis pressure 44.73 ms 1/2 time (test code = 4092882877) LVOT stroke volume 1.05 ml (test code = 7926658672) AV LVOT peak 6.26 mmHg gradient (test code = 1346349381) Ascending aorta 3.89 cm (test code = 4740428322) Ao Root Diameter 3.28 cm (test code = 3294378921) LV SYS VOL (test 41.61 ml 21-61 code = 9507300189) LV BRICEÑO VOL (test 98.42 ml 62-150 code = 0237971206) LA area s A4C (test 22.85 cm2 code = 3153614631) LV SV Teich 2D (test 56.81 ml code = 3010630825) LV Vol s Teich PSAX 41.61 ml (test code = 5393107954) RVOT pk grad (test 5.44 mmHg code = 2506036153) AoV Vmn (test code = 0.93 m/s 7506168348) LV FS Teich 2D (test 30.31 code = 4552490025) MV AE ratio (test 1.25 code = 3302045179) LV FS Cube 2D (test 30.31 code = 3575094262) LVOT Vmn (test code 0.82 = 5757892980) Aov area Vmn (test 3.64 cm2 code = 7163804732) LVOT mean grad (test 3.02 mmHg code = 3861996126) MAX Pred HR (test 173.13 code = 0467755592) 85 of MPHR (test 147.16 code = 7240295540) Calc MPHR (test code 173.13 bpm = 2798224682) LV SV Cube 2D (test 65.31 ml code = 9388664890) LV vol d cube 2D 98.73 ml (test code = 1361100608) LV vol s cube 2D 33.42 ml (test code = 7972601172) MV Decel slope (test 5.22 m/s2 code = 3577430092) Pred Exer Dur R1 10.72 (test code = 0653357196) Pred METS R1 (test 10.97 code = 6525161219) LA Vol MOD A4C (test 54.72 ml code = 5375710046) E tanesha sept (test 0.04 code = 0773439734) E prime lat (test 0.11 code = 7224372234) Velocity Ratio 0.93 m/s (V1/V2) (test code = 4689) EF (test code = 58 % 4317123360) E/A ratio (test code 0.80 = 2396796605) LVOT VTI (CM) (test 27.00 cm code = 9764216620) TAHIRA (test code = Normal left TAHIRA) [...] obtained. Lab Interpretation Abnormal (test code = 04368-7) [facility] [id number] 02:14:00 Test Item Value Reference Range Interpretation Comments Aerobic culture No growth Specimen isolate (test after 2 days. Information ecimen code = 77230-5) Source: Robyn Donahue Site: Arm: Left arteriovenous f istula wound [facility] [id number] 02:14:00 Test Item Value Reference Range Interpretation Comments Aerobic culture No growth Specimen isolate (test after 2 days. Information ecimen code = 71031-8) Source: Robyn Donahue Site: Arm: Left arteriovenous f istula wound [facility] [id number] 02:14:00 Test Item Value Reference Range Interpretation Comments Aerobic culture No growth Specimen isolate (test after 2 days. InformationSp ecimen code = 96478-7) Source: [facility] Site: Arm: Left arteriovenous f istula wound [facility] [id number] 02:14:00 Test Item Value Reference Range Interpretation Comments Aerobic culture No growth Specimen isolate (test after 2 days. InformationSp ecimen code = 88549-5) Source: [facility] Site: Arm: Left arteriovenous f istula wound [facility] [id number] 02:14:00 Test Item Value Reference Range Interpretation Comments Aerobic culture No growth Specimen isolate (test after 2 days. InformationSp ecimen code = 43505-6) Source: [facility] Site: Arm: Left arteriovenous f istula wound [facility] [id number] 02:14:00 Test Item Value Reference Range Interpretation Comments Aerobic culture No growth Specimen isolate (test after 2 days. InformationSp ecimen code = 86524-0) Source: enrico Rowan Site: Arm: Left arteriovenous f istula wound [facility] [id number] 02:14:00 Test Item Value Reference Range Interpretation Comments Aerobic culture No growth Specimen isolate (test after 2 days. InformationSp ecimen code = 81935-0) [facility]: [facility] Site: Arm: Left arteriovenous f istula wound [facility] [id number] 02:14:00 Test Item Value Reference Range Interpretation Comments Aerobic culture No growth Specimen isolate (test after 2 days. InformationSp ecimen code = 16039-0) [facility]: [facility] Site: Arm: Left arteriovenous f istula wound [facility] [id number] 02:14:00 Test Item Value Reference Range Interpretation Comments Aerobic culture No growth Specimen isolate (test after 2 days. InformationSp ecimen code = 53990-2) Source: [facility] Site: Arm: Left arteriovenous f istula wound [facility] [id number] 02:14:00 Test Item Value Reference Range Interpretation Comments Aerobic culture No growth Specimen isolate (test after 2 days. InformationSp ecimen code = 89093-8) Source: Robyn Donahue Site: Arm: Left arteriovenous f istula wound [facility]2022-09-18 22:04:00 Test Item Value Reference Range Interpretation Comments POC glucose (test code = 117 mg/dL 65-99 H Ope rator Name: 28541-7) René Terry ce ID: [id number] able: RN Notified Lab Interpretation (test Abnormal code = 46496-5) [facility]2022-09-18 22:04:00 Test Item Value Reference Range Interpretation Comments POC glucose (test code = 117 mg/dL 65-99 H Ope rator Name: 99240-3) René Terry ce ID: [id number] able: RN Notified Lab Interpretation (test Abnormal code = 75750-3) [facility]2022-09-18 22:04:00 Test Item Value Reference Range Interpretation Comments POC glucose (test code = 117 mg/dL 65-99 H Ope rator Name: 26772-0) René Terry ce ID: [id number] able: RN Notified Lab Interpretation (test Abnormal code = 74941-9) [facility]2022-09-18 22:04:00 Test Item Value Reference Range Interpretation Comments POC glucose (test code = 117 mg/dL 65-99 H Ope rator Name: 98216-8) René Terry ce ID: [id number] able: RN Notified Lab Interpretation (test Abnormal code = 33533-9) [facility]2022-09-18 22:04:00 Test Item Value Reference Range Interpretation Comments POC glucose (test code = 117 mg/dL 65-99 H Ope rator Name: 28786-3) René Terry ce ID: [id number] able: RN Notified Lab Interpretation (test Abnormal code = 27898-2) [facility]2022-09-18 22:04:00 Test Item Value Reference Range Interpretation Comments POC glucose (test code = 117 mg/dL 65-99 H Ope rator Name: 05041-9) René Terry ce ID: [id number] able: RN Notified Lab Interpretation (test Abnormal code = 46779-8) [facility] [id number] 22:04:00 Test Item Value Reference Range Interpretation Comments POC glucose (test code = 117 mg/dL 65-99 H Ope rator Name: 22477-9) René Terry ce ID: [id number] able: RN Notified Lab Interpretation (test Abnormal code = 93003-2) [facility] [id number] 22:04:00 Test Item Value Reference Range Interpretation Comments POC glucose (test code = 117 mg/dL 65-99 H Ope rator Name: 35283-7) René Terry ce ID: [id number] able: RN Notified Lab Interpretation (test Abnormal code = 88947-1) [facility] [id number] 22:04:00 Test Item Value Reference Range Interpretation Comments POC glucose (test code = 117 mg/dL 65-99 H Ope rator Name: 15996-8) René Terry ce ID: [id number] able: RN Notified Lab Interpretation (test Abnormal code = 83217-1) [facility] [id number] 22:04:00 Test Item Value Reference Range Interpretation Comments POC glucose (test code = 117 mg/dL 65-99 H Ope rator Name: 51331-2) René Terry ce ID: [id number] able: RN Notified Lab Interpretation (test Abnormal code = 19403-8) [facility] [id number] 20:27:00 Test Item Value Reference Range Interpretation Comments Fungus smear No fungi Specimen (test code = observed. InformationSpec imen Source: 1443) TissueSpecimen Site: Arm: Left arterioven ous fistula tissue for cult ure [facility] [id number] 20:27:00 Test Item Value Reference Range Interpretation Comments Fungus smear No fungi Specimen (test code = observed. InformationSpec imen Source: 1443) TissueSpecimen Site: Arm: Left arterioven ous fistula tissue for cult ure [facility] [id number] 20:27:00 Test Item Value Reference Range Interpretation Comments Fungus smear No fungi Specimen (test code = observed. InformationSpec imen Source: 1443) TissueSpecimen Site: Arm: Left arterioven ous fistula tissue for cult ure [facility] [id number] 20:27:00 Test Item Value Reference Range Interpretation Comments Fungus smear No fungi Specimen (test code = observed. InformationSpec imen Source: 1443) TissueSpecimen Site: Arm: Left arterioven ous fistula tissue for cult ure [facility] [id number] 20:27:00 Test Item Value Reference Range Interpretation Comments Fungus smear No fungi Specimen (test code = observed. InformationSpec imen Source: 1443) TissueSpecimen Site: Arm: Left arterioven ous fistula tissue for cult ure [facility] [id number] 20:27:00 Test Item Value Reference Range Interpretation Comments Fungus smear No fungi Specimen (test code = observed. InformationSpec imen Source: 1443) TissueSpecimen Site: Arm: Left arterioven ous fistula tissue for cult ure [facility] [id number] 20:27:00 Test Item Value Reference Range Interpretation Comments Fungus smear No fungi Specimen (test code = observed. InformationSpec imen Source: 1443) TissueSpecimen Site: Arm: Left arterioven ous fistula tissue for cult ure [facility] [id number] 20:27:00 Test Item Value Reference Range Interpretation Comments Fungus smear No fungi Specimen (test code = observed. InformationSpec imen Source: 1443) TissueSpecimen Site: Arm: Left arterioven ous fistula tissue for cult ure [facility] [id number] 20:27:00 Test Item Value Reference Range Interpretation Comments Fungus smear No fungi Specimen (test code = observed. InformationSpec imen Source: 1443) TissueSpecimen Site: Arm: Left arterioven ous fistula tissue for cult ure [facility] [id number] 20:27:00 Test Item Value Reference Range Interpretation Comments Fungus smear No fungi Specimen (test code = observed. InformationSpec imen Source: 1443) TissueSpecimen Site: Arm: Left arterioven ous fistula tissue for cult ure [facility] [id number] 17:50:00 Test Item Value Reference Range Interpretation Comments AFB stain No acid fast Specimen (test code = bacilli (AFB) InformationSpe cimen 676-7) seen. Source: TissueS [facility] Site: Arm: Left arteriovenous f istula tissue for cult ure [facility] [id number] 17:50:00 Test Item Value Reference Range Interpretation Comments AFB stain No acid fast Specimen (test code = bacilli (AFB) InformationSpe cimen 676-7) seen. Source: TissueS [facility] Site: Arm: Left arteriovenous f istula tissue for cult ure [facility] [id number] 17:50:00 Test Item Value Reference Range Interpretation Comments AFB stain No acid fast Specimen (test code = bacilli (AFB) InformationSpe cimen 676-7) seen. Source: TissueS [facility] Site: Arm: Left arteriovenous f istula tissue for cult ure [facility] [id number] 17:50:00 Test Item Value Reference Range Interpretation Comments AFB stain No acid fast Specimen (test code = bacilli (AFB) InformationSpe cimen 676-7) seen. Source: TissueS [facility] Site: Arm: Left arteriovenous f istula tissue for cult ure [facility] [id number] 17:50:00 Test Item Value Reference Range Interpretation Comments AFB stain No acid fast Specimen (test code = bacilli (AFB) InformationSpe cimen 676-7) seen. Source: [facility] Site: Arm: Left arteriovenous f istula tissue for cult ure [facility] [id number] 17:50:00 Test Item Value Reference Range Interpretation Comments AFB stain No acid fast Specimen (test code = bacilli (AFB) InformationSpe cimen 676-7) seen. Source: TissueS [facility] Site: Arm: Left arteriovenous f istula tissue for cult ure [facility] [id number] 17:50:00 Test Item Value Reference Range Interpretation Comments AFB stain No acid fast Specimen (test code = bacilli (AFB) InformationSpe cimen 676-7) seen. Source: TissueS [facility] Site: Arm: Left arteriovenous f istula tissue for cult ure [facility] [id number] 17:50:00 Test Item Value Reference Range Interpretation Comments AFB stain No acid fast Specimen (test code = bacilli (AFB) InformationSpe cimen 676-7) seen. Source: TissueS pecimen Site: Arm: Left arteriovenous f istula tissue for cult ure [facility] [id number] 17:50:00 Test Item Value Reference Range Interpretation Comments AFB stain No acid fast Specimen (test code = bacilli (AFB) InformationSpe cimen 676-7) seen. Source: TissueS pecimen Site: Arm: Left arteriovenous f istula tissue for cult ure [facility] [id number] 17:50:00 Test Item Value Reference Range Interpretation Comments AFB stain No acid fast Specimen (test code = bacilli (AFB) InformationSpe cimen 676-7) seen. Source: TissueS pecimen Site: Arm: Left arteriovenous f istula [facility] [id number] 02:53:00 Test Item Value Reference Range Interpretation Comments Gram stain No WBC's or Specimen isolate (test organisms seen. Information Specimen code = 1469) Source: [place] eSpecimen Site: Arm: Left arteriovenous f istula wound [facility] [id number] 02:53:00 Test Item Value Reference Range Interpretation Comments Gram stain No WBC's or Specimen isolate (test organisms seen. Information Specimen code = 1469) Source: [place] eSpecimen Site: Arm: Left arteriovenous f istula wound [facility] [id number] 02:53:00 Test Item Value Reference Range Interpretation Comments Gram stain No WBC's or Specimen isolate (test organisms seen. Information Specimen code = 1469) Source: [place] eSpecimen Site: Arm: Left arteriovenous f istula wound [facility] [id number] 02:53:00 Test Item Value Reference Range Interpretation Comments Gram stain No WBC's or Specimen isolate (test organisms seen. Information Specimen code = 1469) Source: Drainag eSpecimen Site: Arm: Left arteriovenous f istula [facility] [id number] 02:53:00 Test Item Value Reference Range Interpretation Comments Gram stain No WBC's or Specimen isolate (test organisms seen. Information Specimen code = 1469) Source: Drainag eSpecimen Site: Arm: Left arteriovenous f istula wound [facility] [id number] 02:53:00 Test Item Value Reference Range Interpretation Comments Gram stain No WBC's or Specimen isolate (test organisms seen. Information Specimen code = 1469) Source: Drainag eSpecimen Site: Arm: [facility] [id number] 02:53:00 Test Item Value Reference Range Interpretation Comments Gram stain No WBC's or Specimen isolate (test organisms seen. Information Specimen code = 1469) Source: Drainag eSpecimen Site: Arm: Left arteriovenous f istula wound [facility] [id number] 02:53:00 Test Item Value Reference Range Interpretation Comments Gram stain No WBC's or Specimen isolate (test organisms seen. Information Specimen code = 1469) Source: Drainag eSpecimen Site: Arm: [facility] [id number] 02:53:00 Test Item Value Reference Range Interpretation Comments Gram stain No WBC's or Specimen isolate (test organisms seen. Information Specimen code = 1469) Source: Drainag eSpecimen Site: Arm: [facility] [id number] 02:53:00 Test Item Value Reference Range Interpretation Comments Gram stain No WBC's or Specimen isolate (test organisms seen. Information Specimen code = 1469) Source: Drainag eSpecimen Site: Arm: [facility], 1 [id number] 00:49:00 Test Item Value Reference Range Interpretation Comments Product name (test Red Blood Cells code = 25) -1, Leukored Unit number (test [id number] code = 9434692) Product code (test B5727N95 code = 3092) Dispense status Transfused (test [...] PER TAHIRA) /OR BLOOD REQUEST. [facility]i [facility], 1 [id number] 00:49:00 Test Item Value Reference Range Interpretation Comments Product name (test Red Blood Cells code = 25) -1, Leukored Unit number (test [id number] code = 4418021) Product code (test Z3378E67 code = 3092) Dispense status Transfused (test [...] PER TAHIRA) /OR BLOOD REQUEST. [facility] RBC, 1 [id number] 00:49:00 Test Item Value Reference Range Interpretation Comments Product name (test Red Blood Cells code = 25) -1, Leukored Unit number (test [id number] code = 1432486) Product code (test X5234P80 code = 3092) Dispense status (test Transfused [...] 09:50 PER /OR BLOOD REQUEST. [facility], 1 [id number] 00:49:00 Test Item Value Reference Range Interpretation Comments Product name (test Red Blood Cells code = 25) -1, Leukored Unit number (test [id number] code = 5462483) Product code (test Z1584Q00 code = 3092) Dispense status (test Transfused [...] 09:50 PER /OR BLOOD REQUEST. [facility] RBC, 1 [id number] 00:49:00 Test Item Value Reference Range Interpretation Comments Product name (test Red Blood Cells code = 25) -1, Leukored Unit number (test [id number] code = 6619574) Product code (test C3261J73 code = 3092) Dispense status Transfused (test [...] PER TAHIRA) /OR BLOOD REQUEST. [facility] RBC, 1 [id number] 00:49:00 Test Item Value Reference Range Interpretation Comments Product name (test Red Blood Cells code = 25) -1, Leukored Unit number (test [id number] code = 8405483) Product code (test G5264Q78 code = 3092) Dispense status Transfused (test code = 24) Blood expiration date (test code = 302) Blood type code 6200 (test code = 308) Blood type (test A POSITIVE Returned fr om code = 1314) OR in cooler, Temp:4.0 C, Hemotemp and Visual Checksacceptabl e. 12/15/21 15:06 Kasis Myalil Compatibility (test Compatible code = 6400) TAHIRA (test code = 12/15/21 09:50 PER TAHIRA) /OR BLOOD REQUEST. [facility] RBC, 1 [id number] 00:49:00 Test Item Value Reference Range Interpretation Comments Product name (test Red Blood Cells code = 25) -1, Leukored Unit number (test [id number] code = 5915072) Product code (test Y9545H25 code = 3092) Dispense status Transfused (test [...] PER TAHIRA) /OR BLOOD REQUEST. [facility] RBC, 1 [id number] 00:49:00 Test Item Value Reference Range Interpretation Comments Product name (test Red Blood Cells code = 25) -1, Leukored Unit number (test [id number] code = 4227942) Product code (test C7628A93 code = 3092) Dispense status Transfused (test [...] PER TAHIRA) /OR BLOOD REQUEST. [facility] RBC, 1 [id number] 00:49:00 Test Item Value Reference Range Interpretation Comments Product name (test Red Blood Cells code = 25) -1, Leukored Unit number (test [id number] code = 0419374) Product code (test F8284N89 code = 3092) Dispense status Transfused (test [...] 12/15/21 09:50 PER TAHIRA) [facility] 1 [id number] 00:49:00 Test Item Value Reference Range Interpretation Comments Product name (test Red Blood Cells code = 25) -1, Leukored Unit number (test [id number] code = 4273375) Product code (test P0968I11 code = 3092) Dispense status Transfused (test [...] 12/15/21 09:50 PER TAHIRA) /OR BLOOD REQUEST. [facility], [id number] 19:45:00 Test Item Value Reference Range Interpretation Comments pH, arterial (test code 7.38 7.35-7.45 = 2744-1) pCO2, arterial (test 39 See_Comment [Autom ated message] code = 2019-8) The system [facility] generated this result transmitted ref erence range: 35 - 45 mmHg. The reference r lorena was not used to interpret this result as normal/abnor mal. pO2, arterial (test code 405 See_Comment H [A utomated message] = 2703-7) The system [facility] h generated this result transmitted ref erence range: 80 - 90 mmHg. The reference r lorena was not used to interpret this result as normal/abnor mal. Temperature, Celsius 36.0 Degrees C (test code = 8310-5) O2 saturation, arterial 100 % 95-100 (test code = 2708-6) pH, arterial corrected 7.40 (test code = 68564-1) pCO2, arterial corrected 37 mmHg (test code = 42393-6) pO2, arterial corrected 400 mmHg (test code = 74716-6) Base excess, arterial -2 See_Comment [Auto mated message] (test code = 1925-7) The s tem which generated this result transmitted ref erence range: -2 - 2 m Eq/L. The reference r lorena was not used to interpret this result as normal/abnor mal. Lab Interpretation (test Abnormal code = 26440-3) [facility], [id number] 19:45:00 Test Item Value Reference Range Interpretation Comments Glucose, syringe (test code = 125 mg/dL 65-99 H 2345-7) Lab Interpretation (test code = Abnormal 39078-0) [facility], [id number] 19:45:00 Test Item Value Reference Range Interpretation Comments Hemoglobin, syringe (test 7.0 g/dL 14.0-18.0 LL Fi nal results code = 718-7) called to and read back by Autumn Perez RN. 12/15/2021 14:4 5 HE Lab Interpretation (test Abnormal code = 81981-6) [facility] calcium, [id number] 19:45:00 Test Item Value Reference Range Interpretation Comments Ionized calcium, arterial (test 1.10 mmol/L 1.11-1.32 L code = 74470-8) Lab Interpretation (test code = Abnormal 44218-3) [facility], [id number] 19:45:00 Test Item Value Reference Range Interpretation Comments Potassium, syringe 4.8 See_Comment [Automat ed message] The (test code = 2007) system ich generated this result tra nsmitted reference range : 3.5 - 5.0 mEq/L. The refe rence range was not used to interpret this result as normal/abnormal . [facility] [id number] 19:45:00 Test Item Value Reference Range Interpretation Comments Sodium, syringe (test 135 See_Comment [Auto mated message] The code = 2947-0) system which generated this result tra nsmitted reference range : 125 - 148 mEq/L. The refe rence range was not used to interpret this result as normal/abnormal . [facility], [id number] 19:45:00 Test Item Value Reference Range Interpretation [...] [A utomated message] = 2703-7) The system [employer] [facility] generated this result transmitted ref erence range: 80 - 90 mmHg. The reference r lorena was not used to interpret this result as normal/abnor mal. Temperature, Celsius Degrees C (test code = 8310-5) O2 saturation, arterial 100 % 95-100 (test code = 2708-6) pH, arterial corrected (test code = 16673-1) pCO2, arterial corrected mmHg (test code = 91217-7) pO2, arterial corrected mmHg (test code = 75373-5) Base excess, arterial See_Comment [Auto mated message] (test code = 1925-7) The s tem which generated this result transmitted ref erence range: -2 - 2 m Eq/L. The reference r lorena was not used to interpret this result as normal/abnor mal. Lab Interpretation (test Abnormal code = 94074-4) [facility], [id number] 19:45:00 Test Item Value Reference Range Interpretation Comments Glucose, syringe (test code = 125 mg/dL 65-99 H 2345-7) Lab Interpretation (test code = Abnormal 83910-3) [facility] Hospital[facility], [id number] 19:45:00 Test Item Value Reference Range Interpretation Comments Hemoglobin, syringe (test 7.0 g/dL -18 LL Fi nal results code = 718-7) called to and read back by Autumn Perez RN. 12/15/2021 14:4 5 HE Lab Interpretation (test Abnormal code = 06155-2) [facility], [id number] 19:45:00 Test Item Value Reference Range Interpretation Comments Ionized calcium, arterial (test 1.10 mmol/L 1.11-1.32 L code = 97674-1) Lab Interpretation (test code = Abnormal 43378-7) [facility], [id number] 19:45:00 Test Item Value Reference Range Interpretation Comments Potassium, syringe See_Comment [Automat ed message] The (test code = 2007) system [facility] generated this result tra nsmitted reference range : 3.5 - 5.0 mEq/L. The refe rence range was not used to interpret this result as normal/abnormal . [facility], [id number] 19:45:00 Test Item Value Reference Range Interpretation Comments Sodium, syringe (test See_Comment [Auto mated message] The code = 2947-0) system which generated this result tra nsmitted reference range : 125 - 148 mEq/L. The refe rence range was not used to interpret this result as normal/abnormal . [facility], [id number] 19:45:00 Test Item Value Reference Range Interpretation Comments pH, arterial (test code 7.35-7.45 = 2744-1) pCO2, arterial (test See_Comment [Autom ated message] code = 2019-8) The system [facility] generated this result transmitted ref erence range: 35 - 45 mmHg. The reference r lorena was not used to interpret this result as normal/abnor mal. pO2, arterial (test code See_Comment H [A utomated message] = 2703-7) The system [facility] generated this result transmitted ref erence range: 80 - 90 mmHg. The reference r lorena was not used to interpret this result as normal/abnor mal. Temperature, Celsius Degrees C (test code = 8310-5) O2 saturation, arterial 100 % 95-100 (test code = 2708-6) pH, arterial corrected (test code = 49986-2) pCO2, arterial corrected mmHg (test code = 25933-1) pO2, arterial corrected mmHg (test code = 52476-7) Base excess, arterial See_Comment [Auto mated message] (test code = 1925-7) The [facility] tem which generated this result transmitted ref erence range: -2 - 2 m Eq/L. The reference r lorena was not used to interpret this result as normal/abnor mal. Lab Interpretation (test Abnormal code = 82462-0) [facility], [id number] 19:45:00 Test Item Value Reference Range Interpretation Comments Glucose, syringe (test code = 125 mg/dL 65-99 H 2345-7) Lab Interpretation (test code = Abnormal 33872-7) [facility], [id number] 19:45:00 Test Item Value Reference Range Interpretation Comments Hemoglobin, syringe (test 7.0 g/dL 14.0-18.0 LL Fi nal results code = 718-7) called to and read back by Autumn Perez RN. 12/15/2021 14:4 5 HE Lab Interpretation (test Abnormal code = 92841-2) [facility]berg[facility]on[facility] calcium, [id number] 19:45:00 Test Item Value Reference Range Interpretation Comments Ionized calcium, arterial (test 1.10 mmol/L 1.11-1.32 L code = 05304-3) Lab Interpretation (test code = Abnormal 34826-4) [facility], [id number] 19:45:00 Test Item Value Reference Range Interpretation Comments Potassium, syringe See_Comment [Automat ed message] The (test code = 2007) system [facility] generated this result tra nsmitted reference range : 3.5 - 5.0 mEq/L. The refe rence range was not used to interpret this result as normal/abnormal . [facility], [id number] 19:45:00 Test Item Value Reference Range Interpretation Comments Sodium, syringe (test See_Comment [Auto mated message] The code = 2947-0) system which generated this result tra nsmitted reference range : 125 - 148 mEq/L. The refe rence range was not used to interpret this result as normal/abnormal . [facility] blood [facility], [id number] 19:45:00 Test Item Value Reference Range Interpretation Comments pH, arterial (test code 7.38 7.35-7.45 = 2744-1) pCO2, arterial (test 39 See_Comment [Autom ated message] code = 2019-8) The system [facility] generated this result transmitted ref erence range: 35 - 45 mmHg. The reference r lorena was not used to interpret this result as normal/abnor mal. pO2, arterial (test code 405 See_Comment H [A utomated message] = 1231-7) The system [facility] h generated this result transmitted ref erence range: 80 - 90 mmHg. The reference r lorena was not used to interpret this result as normal/abnor mal. Temperature, Celsius 36.0 Degrees C (test code = 8310-5) O2 saturation, arterial 100 % 95-100 (test code = 2708-6) pH, arterial corrected 7.40 (test code = 26383-1) pCO2, arterial corrected 37 mmHg (test code = 20183-8) pO2, arterial corrected 400 mmHg (test code = 28163-4) Base excess, arterial -2 See_Comment [Auto mated message] (test code = 1925-7) The sys tem which generated this result transmitted ref erence range: -2 - 2 m Eq/L. The reference r lorena was not used to interpret this result as normal/abnor mal. Lab Interpretation (test Abnormal code = 62292-6) [facility], [id number] 19:45:00 Test Item Value Reference Range Interpretation Comments Glucose, syringe (test code = 125 mg/dL 65-99 H 2345-7) Lab Interpretation (test code = Abnormal 70435-4) [facility], [id number] 19:45:00 Test Item Value Reference Range Interpretation Comments Hemoglobin, syringe (test 7.0 g/dL 14.0-18.0 LL Fi nal results code = 718-7) called to and read back by Autumn Perez RN. 12/15/2021 14:4 5 HE Lab Interpretation (test Abnormal code = 56852-0) [facility]berg[facility] calcium, [id number] 19:45:00 Test Item Value Reference Range Interpretation Comments Ionized calcium, arterial (test 1.10 mmol/L 1.11-1.32 L code = 76794-3) Lab Interpretation (test code = Abnormal 92775-9) [facility], [id number] 19:45:00 Test Item Value Reference Range Interpretation Comments Potassium, syringe 4.8 See_Comment [Automat ed message] The (test code = 2007) system [facility] generated this result tra nsmitted reference range : 3.5 - 5.0 mEq/L. The refe rence range was not used to interpret this result as normal/abnormal . [facility], [id number] 19:45:00 Test Item Value Reference Range Interpretation Comments Sodium, syringe (test 135 See_Comment [Auto mated message] The code = 2947-0) system which generated this result tra nsmitted reference range : 125 - 148 mEq/L. The refe rence range was not used to interpret this result as normal/abnormal . [facility], [id number] 19:45:00 Test Item Value Reference Range Interpretation Comments pH, arterial (test code 7.38 7.35-7.45 = 2744-1) pCO2, arterial (test 39 See_Comment [Autom ated message] code = 2019-8) The system [facility] generated this result transmitted ref erence range: 35 - 45 mmHg. The reference r lorena was not used to interpret this result as normal/abnor mal. pO2, arterial (test code 405 See_Comment H [A utomated message] = 2703-7) The system [facility] h generated this result transmitted ref erence range: 80 - 90 mmHg. The reference r lorena was not used to interpret this result as normal/abnor mal. Temperature, Celsius 36.0 Degrees C (test code = 8310-5) O2 saturation, arterial 100 % 95-100 (test code = 2708-6) pH, arterial corrected 7.40 (test code = 41773-1) pCO2, arterial corrected 37 mmHg (test code = 80228-9) pO2, arterial corrected 400 mmHg (test code = 51633-2) Base excess, arterial -2 See_Comment [Auto mated message] (test code = 1925-7) The [facility] tem which generated this result transmitted ref erence range: -2 - 2 m Eq/L. The reference r lorena was not used to interpret this result as normal/abnor mal. Lab Interpretation (test Abnormal code = 94535-4) [facility], [id number] 19:45:00 Test Item Value Reference Range Interpretation Comments Glucose, syringe (test code = 125 mg/dL 65-99 H 2345-7) Lab Interpretation (test code = Abnormal 66678-8) [facility], [id number] 19:45:00 Test Item Value Reference Range Interpretation Comments Hemoglobin, syringe (test 7.0 g/dL 14.0-18.0 LL Fi nal results code = 718-7) called to and read back by Autumn Perez RN. 12/15/2021 14:4 5 HE Lab Interpretation (test Abnormal code = 29740-0) [facility] calcium, [id number] 19:45:00 Test Item Value Reference Range Interpretation Comments Ionized calcium, arterial (test 1.10 mmol/L 1.11-1.32 L code = 42677-5) Lab Interpretation (test code = Abnormal 25925-7) [facility], [id number] 19:45:00 Test Item Value Reference Range Interpretation Comments Potassium, syringe 4.8 See_Comment [Automat ed message] The (test code = 2007) system [facility] generated this result tra nsmitted reference range : 3.5 - 5.0 mEq/L. The refe rence range was not used to interpret this result as normal/abnormal . [facility], [id number] 19:45:00 Test Item Value Reference Range Interpretation Comments Sodium, syringe (test 135 See_Comment [Auto mated message] The code = 2947-0) system which generated this result tra nsmitted reference range : 125 - 148 mEq/L. The refe rence range was not used to interpret this result as normal/abnormal . [facility] gas, [id number] 19:45:00 Test Item Value Reference Range Interpretation Comments pH, arterial (test code 7.38 7.35-7.45 = 2744-1) pCO2, arterial (test 39 See_Comment [Autom ated message] code = 2019-8) The system [facility] generated this result transmitted ref erence range: 35 - 45 mmHg. The reference r lorena was not used to interpret this result as normal/abnor mal. pO2, arterial (test code 405 See_Comment H [A utomated message] = 2033-7) The system [facility] generated this result transmitted ref erence range: 80 - 90 mmHg. The reference r lorena was not used to interpret this result as normal/abnor mal. Temperature, Celsius 36.0 Degrees C (test code = 8310-5) O2 saturation, arterial 100 % 95-100 (test code = 2708-6) pH, arterial corrected 7.40 (test code = 05412-1) pCO2, arterial corrected 37 mmHg (test code = 00864-5) pO2, arterial corrected 400 mmHg (test code = 95039-0) Base excess, arterial -2 See_Comment [Auto mated message] (test code = 1925-7) The [facility] tem which generated this result transmitted ref erence range: -2 - 2 m Eq/L. The reference r lorena was not used to interpret this result as normal/abnor mal. Lab Interpretation (test Abnormal code = 53920-1) [facility], [id number] 19:45:00 Test Item Value Reference Range Interpretation Comments Glucose, syringe (test code = 125 mg/dL 65-99 H 2345-7) Lab Interpretation (test code = Abnormal 84592-7) [facility], [id number] 19:45:00 Test Item Value Reference Range Interpretation Comments Hemoglobin, syringe (test 7.0 g/dL 14.0-18.0 LL Fi nal results code = 718-7) called to and read back by Autumn Perez RN. 12/15/2021 14:4 5 HE Lab Interpretation (test Abnormal code = 74783-3) [facility]berg[facility] calcium, [id number] 19:45:00 Test Item Value Reference Range Interpretation Comments Ionized calcium, arterial (test 1.10 mmol/L 1.11-1.32 L code = 88085-0) Lab Interpretation (test code = Abnormal 01187-2) [facility], [id number] 19:45:00 Test Item Value Reference Range Interpretation Comments Potassium, syringe 4.8 See_Comment [Automat ed message] The (test code = 2007) system [facility] generated this result tra nsmitted reference range : 3.5 - 5.0 mEq/L. The refe rence range was not used to interpret this result as normal/abnormal . [facility], [id number] 19:45:00 Test Item Value Reference Range Interpretation Comments Sodium, syringe (test 135 See_Comment [Auto mated message] The code = 2947-0) system which generated this result tra nsmitted reference range : 125 - 148 mEq/L. The refe rence range was not used to interpret this result as normal/abnormal . [facility], [id number] 19:45:00 Test Item Value Reference Range Interpretation [...] [A utomated message] = 2703-7) The system [employer] generated this result transmitted ref erence range: 80 - 90 mmHg. The reference r lorena was not used to interpret this result as normal/abnor mal. Temperature, Celsius 36.0 Degrees C (test code = 8310-5) O2 saturation, arterial 100 % 95-100 (test code = 2708-6) pH, arterial corrected 7.40 (test code = 62639-4) pCO2, arterial corrected 37 mmHg (test code = 61019-2) pO2, arterial corrected 400 mmHg (test code = 02640-9) Base excess, arterial -2 See_Comment [Auto mated message] (test code = 1925-7) The [facility] tem which generated this result transmitted ref erence range: -2 - 2 m Eq/L. The reference r lorena was not used to interpret this result as normal/abnor mal. Lab Interpretation (test Abnormal code = 38859-5) [facility], [id number] 19:45:00 Test Item Value Reference Range Interpretation Comments Glucose, syringe (test code = 125 mg/dL 65-99 H 2345-7) Lab Interpretation (test code = Abnormal 74532-9) [facility], [id number] 19:45:00 Test Item Value Reference Range Interpretation Comments Hemoglobin, syringe (test 7.0 g/dL 14.0-18.0 LL Fi nal results code = 718-7) called to and read back by Autumn Perez RN. 12/15/2021 14:4 5 HE Lab Interpretation (test Abnormal code = 73911-5) [facility]bergIon[facility] calcium, [id number] 19:45:00 Test Item Value Reference Range Interpretation Comments Ionized calcium, arterial (test 1.10 mmol/L 1.11-1.32 L code = 57488-7) Lab Interpretation (test code = Abnormal 87593-3) [facility] [id number] 19:45:00 Test Item Value Reference Range Interpretation Comments Potassium, syringe 4.8 See_Comment [Automat ed message] The (test code = 2007) system [facility] generated this result tra nsmitted reference range : 3.5 - 5.0 mEq/L. The refe rence range was not used to interpret this result as normal/abnormal . [facility] [id number] 19:45:00 Test Item Value Reference Range Interpretation Comments Sodium, syringe (test 135 See_Comment [Auto mated message] The code = 2947-0) system which generated this result tra nsmitted reference range : 125 - 148 mEq/L. The refe rence range was not used to interpret this result as normal/abnormal . [facility]ter[facility] blood gas, [id number] 19:45:00 Test Item Value Reference Range Interpretation Comments pH, arterial (test code 7.38 7.35-7.45 = 2744-1) pCO2, arterial (test 39 See_Comment [Autom ated message] code = 2019-8) The system [facility] generated this result transmitted ref erence range: 35 - 45 mmHg. The reference r lorena was not used to interpret this result as normal/abnor mal. pO2, arterial (test code 405 See_Comment H [A utomated message] = 2703-7) The system [facility] h generated this result transmitted ref erence range: 80 - 90 mmHg. The reference r lorena was not used to interpret this result as normal/abnor mal. Temperature, Celsius 36.0 Degrees C (test code = 8310-5) O2 saturation, arterial 100 % 95-100 (test code = 2708-6) pH, arterial corrected 7.40 (test code = 03084-5) pCO2, arterial corrected 37 mmHg (test code = 71786-5) pO2, arterial corrected 400 mmHg (test code = 50075-4) Base excess, arterial -2 See_Comment [Auto mated message] (test code = 1925-7) The [facility] tem which generated this result transmitted ref erence range: -2 - 2 m Eq/L. The reference r lorena was not used to interpret this result as normal/abnor mal. Lab Interpretation (test Abnormal code = 25091-4) [facility], [id number] 19:45:00 Test Item Value Reference Range Interpretation Comments Glucose, syringe (test code = 125 mg/dL 65-99 H 2345-7) Lab Interpretation (test code = Abnormal 34894-4) [facility], [id number] 19:45:00 Test Item Value Reference Range Interpretation Comments Hemoglobin, syringe (test 7.0 g/dL 14.0-18.0 LL Fi nal results code = 718-7) called to and read back by Autumn Perez RN. 12/15/2021 14:4 5 HE Lab Interpretation (test Abnormal code = 10751-0) [facility]on[facility] calcium, [id number] 19:45:00 Test Item Value Reference Range Interpretation Comments Ionized calcium, arterial (test 1.10 mmol/L 1.11-1.32 L code = 05819-3) Lab Interpretation (test code = Abnormal 75748-6) [facility], [id number] 19:45:00 Test Item Value Reference Range Interpretation Comments Potassium, syringe 4.8 See_Comment [Automat ed message] The (test code = 2007) system ich generated this result tra nsmitted reference range : 3.5 - 5.0 mEq/L. The refe rence range was not used to interpret this result as normal/abnormal . [facility], [id number] 19:45:00 Test Item Value Reference Range Interpretation Comments Sodium, syringe (test 135 See_Comment [Auto mated message] The code = 2947-0) system which generated this result tra nsmitted reference range : 125 - 148 mEq/L. The refe rence range was not used to interpret this result as normal/abnormal . [facility], [id number] 19:45:00 Test Item Value Reference Range Interpretation [...] [A utomated message] = 2703-7) The system ic h generated this result transmitted ref erence range: 80 - 90 mmHg. The reference r lorena was not used to interpret this result as normal/abnor mal. Temperature, Celsius 36.0 Degrees C (test code = 8310-5) O2 saturation, arterial 100 % 95-100 (test code = 2708-6) pH, arterial corrected 7.40 (test code = 90602-7) pCO2, arterial corrected 37 mmHg (test code = 47840-6) pO2, arterial corrected 400 mmHg (test code = 96094-8) Base excess, arterial -2 See_Comment [Auto mated message] (test code = 1925-7) The s tem which generated this result transmitted ref erence range: -2 - 2 m Eq/L. The reference r lorena was not used to interpret this result as normal/abnor mal. Lab Interpretation (test Abnormal code = 70072-3) [facility], [id number] 19:45:00 Test Item Value Reference Range Interpretation Comments Glucose, syringe (test code = 125 mg/dL 65-99 H 2345-7) Lab Interpretation (test code = Abnormal 83470-5) [facility], [id number] 19:45:00 Test Item Value Reference Range Interpretation Comments Hemoglobin, syringe (test 7.0 g/dL 14.0-18.0 LL Fi nal results code = 718-7) called to and read back by Autumn Perez RN. 12/15/2021 14:4 5 HE Lab Interpretation (test Abnormal code = 41874-7) [facility], [id number] 19:45:00 Test Item Value Reference Range Interpretation Comments Ionized calcium, arterial (test 1.10 mmol/L 1.11-1.32 L code = 24427-6) Lab Interpretation (test code = Abnormal 30186-7) [facility], [id number] 19:45:00 Test Item Value Reference Range Interpretation Comments Potassium, syringe 4.8 See_Comment [Automat ed message] The (test code = 2007) system [facility] generated this result tra nsmitted reference range : 3.5 - 5.0 mEq/L. The refe rence range was not used to interpret this result as normal/abnormal . [facility], [id number] 19:45:00 Test Item Value Reference Range Interpretation Comments Sodium, syringe (test 135 See_Comment [Auto mated message] The code = 2947-0) system which generated this result tra nsmitted reference range : 125 - 148 mEq/L. The refe rence range was not used to interpret this result as normal/abnormal . [facility] blood [facility], [id number] 19:45:00 Test Item Value Reference Range Interpretation Comments pH, arterial (test code 7.38 7.35-7.45 = 2744-1) pCO2, arterial (test 39 See_Comment [Autom ated message] code = 2019-8) The system [facility] generated this result transmitted ref erence range: 35 - 45 mmHg. The reference r lorena was not used to interpret this result as normal/abnor mal. pO2, arterial (test code 405 See_Comment H [A utomated message] = 9273-7) The system [facility] generated this result transmitted ref erence range: 80 - 90 mmHg. The reference r lorena was not used to interpret this result as normal/abnor mal. Temperature, Celsius 36.0 Degrees C (test code = 8310-5) O2 saturation, arterial 100 % 95-100 (test code = 2708-6) pH, arterial corrected 7.40 (test code = 96611-6) pCO2, arterial corrected 37 mmHg (test code = 52801-1) pO2, arterial corrected 400 mmHg (test code = 82874-9) Base excess, arterial -2 See_Comment [Auto mated message] (test code = 1925-7) The s tem which generated this result transmitted ref erence range: -2 - 2 m Eq/L. The reference r lorena was not used to interpret this result as normal/abnor mal. Lab Interpretation (test Abnormal code = 15352-6) [facility], [id number] 19:45:00 Test Item Value Reference Range Interpretation Comments Glucose, syringe (test code = 125 mg/dL 65-99 H 2345-7) Lab Interpretation (test code = Abnormal 36683-2) [facility], [id number] 19:45:00 Test Item Value Reference Range Interpretation Comments Hemoglobin, syringe (test 7.0 g/dL 14.0-18.0 LL Fi nal results code = 718-7) called to and read back by Autumn Perez RN. 12/15/2021 14:4 5 HE Lab Interpretation (test Abnormal code = 02540-9) [facility]berg[facility]on[facility] calcium, [id number] 19:45:00 Test Item Value Reference Range Interpretation Comments Ionized calcium, arterial (test 1.10 mmol/L 1.11-1.32 L code = 68755-1) Lab Interpretation (test code = Abnormal 22393-9) [facility], [id number] 19:45:00 Test Item Value Reference Range Interpretation Comments Potassium, syringe 4.8 See_Comment [Automat ed message] The (test code = 2007) system wh ich generated this result tra nsmitted reference range : 3.5 - 5.0 mEq/L. The refe rence range was not used to interpret this result as normal/abnormal . [facility], [id number] 19:45:00 Test Item Value Reference Range Interpretation Comments Sodium, syringe (test 135 See_Comment [Auto mated message] The code = 2947-0) system which generated this result tra nsmitted reference range : 125 - 148 mEq/L. The refe rence range was not used to interpret this result as normal/abnormal . [facility]bergEC 12 [id number] 04:07:28 Test Item Value Reference Range Interpretation Comments Ventricular rate 63 (test code = 253) Atrial rate (test 63 code = 255) [place] interval (test 158 code = 266) QRSD [...] atrial enlargement-Anteroseptal infarct , age undetermined-Abnormal ECG-- [address]2022-09-17 04:07:28 Test Item Value Reference Range Interpretation Comments Ventricular rate 63 (test code = 253) Atrial rate (test 63 code = 255) [place] interval (test 158 code = 266) QRSD [...] atrial enlargement-Anteroseptal infarct , age undetermined-Abnormal ECG-- [address]2022-09-17 04:07:28 Test Item Value Reference Range Interpretation Comments Ventricular rate (test code = 253) Atrial rate (test code = 255) [place] interval (test code = 266) QRSD interval (test code = 260) QT interval (test code = 264) QTC interval (test code = 265) P axis 1 (test code = 267) QRS axis 1 (test code = 268) T wave axis (test code = 270) EKG impression (test Normal sinus code = 273) rhythm--Possible Left atrial enlargement-Anteroseptal infarct , age undetermined-Abnormal ECG-- [address]2022-09-17 04:07:28 Test Item Value Reference Range Interpretation Comments Ventricular rate (test code = 253) Atrial rate (test code = 255) [place] interval (test code = 266) QRSD interval (test code = 260) QT interval (test code = 264) QTC interval (test code = 265) P axis 1 (test code = 267) QRS axis 1 (test code = 268) T wave axis (test code = 270) EKG impression (test Normal sinus code = 273) rhythm--Possible Left atrial enlargement-Anteroseptal infarct , age undetermined-Abnormal ECG-- [address]2022-09-17 04:07:28 Test Item Value Reference Range Interpretation Comments Ventricular rate 63 (test code = 253) Atrial rate (test 63 code = 255) [place] interval (test 158 code = 266) QRSD [...] atrial enlargement-Anteroseptal infarct , age undetermined-Abnormal ECG-- [address]2022-09-17 04:07:28 Test Item Value Reference Range Interpretation Comments Ventricular rate 63 (test code = 253) Atrial rate (test 63 code = 255) [place] interval (test 158 code = 266) QRSD [...] atrial enlargement-Anteroseptal infarct , age undetermined-Abnormal ECG-- [address]2022-09-17 04:07:28 Test Item Value Reference Range Interpretation Comments Ventricular rate 63 (test code = 253) Atrial rate (test 63 code = 255) [place] interval (test 158 code = 266) QRSD [...] atrial enlargement-Anteroseptal infarct , age undetermined-Abnormal ECG-- [address]2022-09-17 04:07:28 Test Item Value Reference Range Interpretation Comments Ventricular rate 63 (test code = 253) Atrial rate (test 63 code = 255) [place] interval (test 158 code = 266) QRSD [...] atrial enlargement-Anteroseptal infarct , age undetermined-Abnormal ECG-- [address]2022-09-17 04:07:28 Test Item Value Reference Range Interpretation Comments Ventricular rate 63 (test code = 253) Atrial rate (test 63 code = 255) [place] interval (test 158 code = 266) QRSD [...] atrial enlargement-Anteroseptal infarct , age undetermined-Abnormal ECG-- [address]2022-09-17 04:07:28 Test Item Value Reference Range Interpretation Comments Ventricular rate 63 (test code = 253) Atrial rate (test 63 code = 255) [place] interval (test 158 code = 266) QRSD [...] atrial enlargement-Anteroseptal infarct , age undetermined-Abnormal ECG-- [facility] RNA [Presence] in Respiratory specimen by CHER with probe [id number] 02:56:55 Test Item Value Reference Range Interpretation Comments SARS-CoV-2 (COVID-19) RNA Not detected [Presence] in Respiratory specimen by CHER with probe detection (test code = 72970-9) Whether patient is employed in a Unknown healthcare setting (test code = 42133-0) Whether the patient has symptoms Unknown related to condition of interest (test code = 48572-1) Whether the patient was Unknown hospitalized for condition of interest (test code = 28505-3) Whether the patient was admitted Unknown to intensive care unit (ICU) for condition of interest (test code = 97173-8) Whether patient resides in a Unknown congregate care setting (test code = 79181-3) status (test code = Unknown 50204-0) Date and time of symptom onset Unknown (test code = 39769-8) [facility] [id number] 18:21:00 Test Item Value Reference Range Interpretation Comments HEPATITIS B SURFACE ANTIGEN (2) Nonreactive Nonreactive (BEAKER) (test code = 2585) ANG, THROMBECTOMY, A-V [id number] 13:26:00Reason for exam:- >nonfunctioning fistulaAnesthesia:->moderateFINAL REPORT DIALYSIS [...] MDReport Verified Date/Time: 02/18/2019 13:26:57 Reading Location: [facility] Radiology Reading Room [id number] 05:52:00 Test Item Value Reference Range Interpretation Comments MAGNESIUM (BEAKER) (test code = 2.0 mg/dL 1.5-3.0 627) BASIC METABOLIC [id number] 05:51:00 Test Item Value Reference Range Interpretation [...] PATIEN TS. CBC W/PLT COUNT & AUTO [id number] 05:37:00 Test Item Value Reference Range Interpretation [...] = 2801) RAD, CHEST, 1 VIEW, NON [id number] 09:21:00Reason for exam:- >pneumoniaShould this be performed at the bedside?->YesFINAL REPORT TECHNIQUE: Frontal view of the chest. INDICATION: pneumonia COMPARISON:Prior day. IMPRESSION:Lines and hardware: Stable.Heart and mediastinum: Stable.Lungs and pleura:Probable scattered atelectasis. No focal airspace consolidation. Central coronary venous congestion.No pleural effusion. No pneumothorax.Soft tissues and bones: No acute abnormality. Signed: Rupinder Campbell MDReport Verified Date/Time: 02/17/2019 09:21:38 Reading Location: [facility] Radiology Reading Room COMPREHENSIVE METABOLIC [id number] 06:48:00 Test Item Value Reference Range Interpretation [...] S NOT APPLICABLE FOR DIALYSIS PATIEN TS. [id number] 06:30:00 Test Item Value Reference Range Interpretation Comments MAGNESIUM (BEAKER) (test code = 2.0 mg/dL 1.5-3.0 627) TROPONIN [id number] 06:27:00 Test Item Value Reference Range Interpretation [...] = 2801) RAD, CHEST, 1 VIEW, NON [id number] 00:02:00Reason for exam:- >PNEUMONIAShould this be performed [...] MDReport Verified Date/Time: 02/17/2019 00:02:21 Reading Location: [address] Consult Reading Room [id number] 19:17:00 Test Item Value Reference Range Interpretation [...] acute neurological disease, and persistent tachyarrhythmia.COMPREHENSIVE METABOLIC [id number] 19:13:00 Test Item Value Reference Range Interpretation [...] S NOT APPLICABLE FOR DIALYSIS PATIEN TS. [id number] 19:10:00 Test Item Value Reference Range Interpretation Comments MAGNESIUM (BEAKER) 2.1 mg/dL 1.5-3.0 Specimen moderately (test code = 627) hemolyzed CBC W/PLT COUNT & AUTO [id number] 18:47:00 Test Item Value Reference Range Interpretation [...] PERCENT (BEAKER) (test code = 2801) BLOOD [id number] 07:18:00 Test Item Value Reference Range Interpretation Comments Culture Observations (test NO GROWTH AFTER 5 code = COB1) DAYS BLOOD [id number] 07:18:00 Test Item Value Reference Range Interpretation Comments Culture Observations (test NO GROWTH AFTER 5 code = COB1) DAYS HEPATITIS B CORE ANTIBODY,[id number] 12:26:00 Test Item Value Reference Range Interpretation Comments HEPATITIS B CORE AB NON-REACTIVE NON-REACTIVE TEST PER FORMED TOTAL (test code = AT:[facility] [id number]) [id number] [place] [address]ZYRZMKAI SANTIAGO M.D. XR CHEST 1 [id number] 08:09:24 Location of dictation: C5Frfsthlt chest one view.HISTORY: J81.1: CHRONIC PULMONARY EDEMACOMMENT: Compared to one day prior. The heart is enlarged but stable, globularappearance suggests pericardial eff usion. Small effusions are now presentslightly greater on the left. No new consolidation, pneumothorax seen.Impression:1. Stable cardiomegaly with concern for pericardial effusion.2. Interval development of small effusions slightly greater on the left.BASIC METABOLIC [id number] 07:14:00 Test Item Value Reference Range Interpretation [...] code = RBCMOR) NORMAL XR CHEST 1 [id number] 07:33:56STUDY: Chest radiographHISTORY: Fever.COMPARISON: 09/05/17TECHNIQUE: Frontal view of the chest.LOCATION: W07KADDRIKA:The cardiac silhouette is enlarged, stable. Bilateral patchy perihilaropacities are similar in appearance. There is no definitive pleural effusion ordiscernible pneumothorax. No acute osseous abnormalities are identified.IMPRESSION:Stable appearance of bilateral perihilar patchy opacities and cardiomegaly.BASIC METABOLIC [id number] 04:50:00 Test Item Value Reference Range Interpretation [...] (test code = 09D) 8.6 mg/dL 8.3-9.5 [id number] 04:43:00 Test Item Value Reference Range Interpretation [...] MORPH (test code = RBCMOR) NORMAL CARDIAC [id number] 03:24:00 Test Item Value Reference Range Interpretation Comments TROPONIN I (test code = A84) 0.269 ng/mL 0.000-0.045 H CKMB (test code = A49) 7.8 ng/mL <=3.6 HH CPK (test code = 32A) 414 IU/L 39-308 H BASIC METABOLIC [id number] 03:08:00 Test Item Value Reference Range Interpretation [...] code = RBCMOR) NORMAL HEPATITIS B SURFACE [id number] 21:09:00 Test Item Value Reference Range Interpretation Comments HBSAB (test code = HBSAB) REACTIVE REACTIVE HEPATITIS B SURFACE [id number] 20:37:00 Test Item Value Reference Range Interpretation Comments HBSAG (test code = HBSAG) NON-REACTIVE NON-REACTIVE CARDIAC [id number] 20:23:00 Test Item Value Reference Range Interpretation Comments TROPONIN I (test code = A84) 0.231 ng/mL 0.000-0.045 H CKMB (test code = A49) 11.0 ng/mL <=3.6 HH CPK (test code = 32A) 469 IU/L 39-308 H PRO TIME AND [id number] 11:37:00 Test Item Value Reference Range Interpretation [...] = RBCMOR) NORMAL XR CHEST 1 VIEW [id number] 10:04:30EXAMINATION: XR CHEST 1 VIEW PORTABLE.LOCATION: D4.HISTORY: [...] tiny effusions, unchangedsince 09/01/2017,probably reflect vascular congestion.OCCULT [id number] 11:04:00 Test Item Value Reference Range Interpretation [...] 31A) 27 IU/L <=78 CBC (INCLUDES AUTOMATED DIFFERENTIAL)*[id number] 09:07:00 Test Item Value Reference Range Interpretation [...] (IGM) (test AT:[facility] code = 20365022) [id number] [place] [address]VAUSYKAI SANTIAGO M.D. HEPATITIS B SURFACE ANTIBODY *DORIE*2017-09-02 15:30:00 Test Item Value Reference Range Interpretation Comments HBSAB (test code = HBSAB) REACTIVE REACTIVE XR CHEST 2 VIEW *WW*2017-09-01 23:21:54XR CHEST 2 VIEW *WW*Location:[address] services provided 09/01/2017 11:21 PMIndication:[id number]: Hypertensive disorderComparison:Not currently availableFindings:The heart is enlarged with mild engorgement of the pulmonaryvascularity and prominence of the pulmonary interstitium. Bilateral pleuralfluid collections are noted. No chicho lobar consolidation is seen. No acutebony abnormality.Impression:Findings concerning for cardiogenic pulmonary edema with bilateralpleural fluid collections. HEPATITIS B CORE ANTIBODY,[id number] 12:54:00 Test Item Value Reference Range Interpretation Comments HEPATITIS B CORE AB NON-REACTIVE NON-REACTIVE TEST PER FORMED TOTAL (test code = AT:[facility] [id number]) [id number] [place] [address]EBYULKAI SANTIAGO M.D. GLUCOMETER GLUCOSE- LAB USE [id number] 06:26:00 Test Item Value Reference Range Interpretation Comments GLUCOMETER (test code = 102 mg/dL 70-100 H Mete r ID: GMG) [id number] tor: [address] NM LUNG (V/Q ) SCAN W [id number] 15:28:50Radionuclide ventilation/perfusion lung scanLocation Code: I4GOLJCTS: Shortness of breathCOMPARISON:None.COMMENT: Routine images of the lungs were obtained after inhalation of 11.1 mCiof Xe133 gas andintravenous injection of 6.0 mCi 99 M technetium MAA.Ventilation is symmetric bilaterally with no focal defect. There is nosignificant trapping.Perfusion images demonstrate normal and symmetric perfusion with no segmentaldefect to suggest a PE.IMPRESSION: Normal VQ scan with a low probability of PE.BASIC METABOLIC [id number] 07:39:00 Test Item Value Reference Range Interpretation [...] code = RBCMOR) NORMAL HEPATITIS B SURFACE [id number] 18:54:00 Test Item Value Reference Range Interpretation Comments HBSAB (test code = HBSAB) REACTIVE REACTIVE HEPATITIS B SURFACE [id number] 18:37:00 Test Item Value Reference Range Interpretation Comments HBSAG (test code = HBSAG) NON-REACTIVE NON-REACTIVE CARDIAC [id number] 18:35:00 Test Item Value Reference Range Interpretation Comments TROPONIN I (test code = A84) 0.115 ng/mL 0.000-0.045 H CKMB (test code = A49) 7.0 ng/mL <=3.6 HH CPK (test code = 32A) 652 IU/L 39-308 H CARDIAC [id number] 14:04:00 Test Item Value Reference Range Interpretation Comments TROPONIN I (test code = A84) 0.120 ng/mL 0.000-0.045 H CKMB (test code = A49) 7.4 ng/mL <=3.6 HH CPK (test code = 32A) 651 IU/L 39-308 H GLUCOMETER GLUCOSE- LAB USE [id number] 11:12:00 Test Item Value Reference Range Interpretation Comments GLUCOMETER (test code = 99 mg/dL 70-100 LIGIA [place] METERMeter ID: GMG) [id number] tor: [address]WO GLUCOMETER GLUCOSE- LAB USE [id number] 04:22:00 Test Item Value Reference Range Interpretation Comments GLUCOMETER (test code = 116 mg/dL 70-100 H Mete r ID: GMG) [id number] tor: [address] C[address]OL[address] GLUCOMETER GLUCOSE- LAB USE [id number] 03:33:00 Test Item Value Reference Range Interpretation Comments GLUCOMETER (test code = 42 mg/dL 70-100 LL Mete r ID: GMG) [id number] tor: 43[address] CORKY MAHONEY BRAIN NATRIURETIC [id number] 02:13:00 Test Item Value Reference Range Interpretation Comments proBNP (test code = PBNP) >699206 pg/mL 0-125 H XR ABDOMEN 2 VIEWS W/PA [id number] 02:11:50-CHEST AP VIEW-ABDOMEN AP AND UPRIGHT VIEWS LOCATION: [id number] INDICATION: Vomiting and shortnessof breathCOMPARISON: None FINDINGS: [...] obstruction, CT is recommended for further assessment.CARDIAC [id number] 01:33:00 Test Item Value Reference Range Interpretation Comments TROPONIN I (test code = A84) 0.147 ng/mL 0.000-0.045 H CKMB (test code = A49) 7.0 ng/mL <=3.6 HH CPK (test code = 32A) 688 IU/L 39-308 H COMPREHENSIVE METABOLIC [id number] 01:32:00 Test Item Value Reference Range Interpretation [...] 31A) 121 IU/L <=78 H AMYLASE AND [id number] 01:31:00 Test Item Value Reference Range Interpretation Comments AMYLASE (test code = 10A) 157 U/L 28-100 H LIPASE (test code = 60A) 224 IU/L 73-393 [id number] 01:26:00 Test Item Value Reference Range Interpretation Comments D-DIMER (test code = 687 ng/mL D-DU 0-234 H DDI) D-DIMER COMMENT (test *Level to rule out code = DDCOM) DVT or PE: <235 ng/mL D-DU* PRO TIME AND [id number] 01:26:00 Test Item Value Reference Range Interpretation [...]
[2022-05-31 17:49] LABS: Albumin 2.3 g/dL (3.4-5.0); Bilirubin Total 0.3 mg/dL (0.2-1.0); Potassium 4.4 mmol/L (3.5-5.1); Protein, Total 6.9 g/dL (6.4-8.2)
[2022-05-31] MEDS ORDERED: MORPHINE 4 MG/ML SYR ONE (18:02)
--- NOTE | 2022-05-31 19:08 | ER ---
Nurse's Notes [facility] Name: Velasquez Cruz Age: 47 yrs Sex: Male : 1975 Arrival Date: 05/31/2022 Time: 17:11 Bed 3 Private MD: Diagnosis: GI Bleed/ Gastrointestinal hemorrhage, unspecified;Vomiting;End stage renal disease;Anemia, unspecified Presentation: 05/31 17:05 Chief complaint: EMS states: Toned out to [facility] for vomiting blood, pt being treated for jl7 pleural effusion. 17:05 Coronavirus screen: At this time, the client does not indicate any symptoms associated jl7 with coronavirus-19. Ebola Screen: No symptoms or risks identified at this time. Initial Sepsis Screen: Does the patient meet any 2 criteria? No. Patient's initial sepsis screen is negative. Does the patient have a suspected source of infection? No. Patient's initial sepsis screen is negative. Risk Assessment: Do you want to hurt yourself or someone else? Patient reports no desire to harm self or others. Onset of symptoms is unknown. Care prior to arrival: None. 17:05 Method Of Arrival: EMS: [facility] jl7 17:05 Acuity: HEAVEN 3 jl7 Triage Assessment: 18:06 General: Appears in no apparent distress. uncomfortable, Behavior is calm, cooperative. jl7 Pain: Complains of pain in chest. Historical: - Allergies: 18:06 No Known Allergies; jl7 - PMHx: 17:19 Anemia; Anxiety; Bipolar disorder; Cocaine Abuse; COPD; DVT; HD MWF; HEART FAILURE; iw Hypertensive disorder; - Immunization history:: Adult Immunizations unknown. - Social history:: Smoking status: Patient reports the use of cigarette tobacco products. Screenin:22 [facility] ED Fall Risk Assessment (Adult) History of falling in the last 3 months, iw including since admission. Abuse screen: Denies threats or abuse. Denies injuries from another. Nutritional screening: No deficits noted. Tuberculosis screening: No symptoms or risk factors identified. Assessment: 17:23 Reassessment: Patient appears in no apparent distress at this time. pt sitting up in bed, VSS at this time. 18:04 Reassessment: Patient appears in no apparent distress at this time. Patient and/or iw family updated on plan of care and expected duration. Pain level reassessed. Patient is alert, oriented x 3, equal unlabored respirations, skin warm/dry/pink. 18:12 Reassessment: Dr. Funez at bedside for IV insertion , unable to obtain 2nd IV line viji iw to old dialysis fistula on left bicep. 18:37 Reassessment: Patient states feeling better. Patient states symptoms have improved. iw Vital Signs: 17:19 BP 109 / 73; Pulse 118; Resp 18 S; Pulse Ox 100% on R/A; iw 18:06 Weight 71.21 kg; jl7 18:37 BP 101 / 80; Pulse 112; Resp 18 S; Temp 97.8; Pulse Ox 100% on R/A; iw 19:40 BP 91 / 58; Pulse 107; Resp 14 S; Pulse Ox 96% on R/A; as6 20:40 BP 80 / 56; Pulse 105; Resp 19 S; Pulse Ox 98% on R/A; as6 22:08 BP 100 / 64; Pulse 97; Resp 17 S; Pulse Ox 97% on R/A; as6 22:20 BP 100 / 64; Pulse 94; Resp 15; Temp 97.3; Pulse Ox 100% ; mb9 22:20 Baseline for RBC administration. Started infusion at 50 ml/hr. See blood transfusion mb9 form for more information ED Course: 17:11 Patient arrived in ED. ms3 17:11 Kiet Funez DO is Attending Physician. ms3 17:20 Missed attempt(s): 20 gauge in left antecubital area. Bleeding controlled, band aid iw applied, catheter tip intact. 17:21 Inserted saline lock: 20 gauge in right forearm, using aseptic technique. Blood iw collected. IV inserted by OLIVIA Casper. 17:22 Patient has correct armband on for positive identification. Placed in gown. Bed in low iw position. Client placed on continuous cardiac and pulse oximetry monitoring. NIBP monitoring applied. 17:25 Any Connell, OLIVIA is Primary Nurse. iw 18:06 Triage completed. jl7 18:20 Inserted saline lock: 18 gauge in left EJ, using aseptic technique. IV inserted by Dr. preston Funez. 19:07 Dimitrios Espinal MD is Hospitalizing Provider. ms3 19:21 Arm band placed on. as6 20:33 Primary Nurse role handed off by Any Connell RN wm 22:07 No provider procedures requiring assistance completed. Patient admitted, IV remains in as6 place. Administered Medications: 17:22 Drug: Zofran (Ondansetron) 4 mg Route: IVP; Site: right forearm; iw 17:25 Drug: ProTONIX (pantoprazole) 40 mg Route: IVP; Site: left forearm; iw 18:03 Drug: morphine 4 mg Route: IVP; Infused Over: 4 mins; Site: right antecubital; iw 18:04 Drug: ProTONIX (pantoprazole) 8 mg/hr Route: IV; Rate: 25 ml/hr; Site: right iw antecubital; 18:40 Drug: Octreotide Infusion (50 mcg/hr) - (Octreotide 500 mcg, NS 0.9% 500 ml) Route: IV; iw Rate: 50 ml/hr; Site: left jugular; Medication: 17:22 VIS not applicable for this client. iw Outcome: 19:08 Decision to Hospitalize by Provider. ms3 23:45 Admitted to Med/surg accompanied by nurse, via stretcher, room 210, with chart, Report mb9 called to OLIVIA Cohn 23:45 Condition: stable 23:45 Discharge instructions given to patient, Instructed on the need for admit. 23:52 Patient left the ED. vc1 Signatures: Any Connell, OLIVIA BAKER Pennie Tovar RN RN jl7 Kiet Funez, DO ms3 Monalisa Whipple Ashby, RN RN as6 Nat Baeza RN RN vc1 Tammie Ferrara, RN RN mb9
--- NOTE | 2022-05-31 19:08 | EDPHYS ---
Physician Documentation [facility] Name: Velasquez Cruz Age: 47 yrs Sex: Male : 1975 Arrival Date: 05/31/2022 Time: 17:11 Bed 3 Private MD: ED Physician Kiet Funez HPI: 05/31 17:42 This 47 yrs old Black Male presents to ER via Unassigned with complaints of GI Bleeding.ms3 17:42 47-year-old male with past medical history of anemia, anxiety, bipolar, cocaine abuse, ms3 COPD, DVT presents via [facility] for hematemesis. On EMS arrival patient's systolic blood pressure was 91. Patient's heart rate currently 118, blood pressure 109/66, oxygen saturation 100%. Patient states he was feeling dizzy and lightheaded. Patient states emesis began today during dialysis. Historical: - Allergies: 18:06 No Known Allergies; jl7 - PMHx: 17:19 Anemia; Anxiety; Bipolar disorder; Cocaine Abuse; COPD; DVT; HD MWF; HEART FAILURE; iw Hypertensive disorder; - Immunization history:: Adult Immunizations unknown. - Social history:: Smoking status: Patient reports the use of cigarette tobacco products. ROS: 17:42 Constitutional: Negative for fever, and chills. Neck: Negative for injury, pain, and ms3 swelling, Respiratory: Negative for shortness of breath, cough, wheezing, and pleuritic chest pain. 17:42 Abdomen/GI: Positive for nausea and vomiting, hematemesis. 17:42 All other systems are negative. Exam: 17:42 Constitutional: This is a well developed, well nourished patient who is awake, alert, ms3 and in no acute distress. Head/Face: Normocephalic, atraumatic. Neck: Trachea midline, no cervical lymphadenopathy. Supple, full range of motion without nuchal rigidity, or vertebral point tenderness. No Meningismus. Chest/axilla: Normal chest wall appearance and motion. Nontender with no deformity. Cardiovascular: Regular rate and rhythm with a normal S1 and S2. No gallops, murmurs, or rubs. Normal PMI, no JVD. No pulse deficits. Respiratory: Lungs have equal breath sounds bilaterally, clear to auscultation and percussion. No rales, rhonchi or wheezes noted. No increased work of breathing, no retractions or nasal flaring. 17:49 ECG was reviewed by the Attending Physician. ms3 Vital Signs: 17:19 BP 109 / 73; Pulse 118; Resp 18 S; Pulse Ox 100% on R/A; iw 18:06 Weight 71.21 kg; jl7 18:37 BP 101 / 80; Pulse 112; Resp 18 S; Temp 97.8; Pulse Ox 100% on R/A; iw 19:40 BP 91 / 58; Pulse 107; Resp 14 S; Pulse Ox 96% on R/A; as6 20:40 BP 80 / 56; Pulse 105; Resp 19 S; Pulse Ox 98% on R/A; as6 22:08 BP 100 / 64; Pulse 97; Resp 17 S; Pulse Ox 97% on R/A; as6 22:20 BP 100 / 64; Pulse 94; Resp 15; Temp 97.3; Pulse Ox 100% ; mb9 22:20 Baseline for RBC administration. Started infusion at 50 ml/hr. See blood transfusion mb9 form for more information MDM: 17:11 Patient medically screened. ms3 17:49 Differential diagnosis: gastritis, varices, PUD. ms3 19:09 Data reviewed: vital signs, nurses notes, EMS record, lab test result(s). Management of ms3 patient was discussed with the following: Hospitalist: Timothy Montiel NP, on behalf of Dr Espinal. Independent interpretation of the following test(s) in the Emergency Department X-Ray: My interpretation is CXR image reviewed by me shows right pleural effusion. Historians other than the Patient: EMS: [facility]. Counseling: I had a detailed discussion with the patient and/or guardian regarding: the historical points, exam findings, and any diagnostic results supporting the discharge/admit diagnosis, lab results, radiology results, the need for further work-up and treatment in the hospital. ED course: Patient remains in stable condition in the ED. Discussed case with Timothy Montiel NP, and he accepts patient on behalf of Dr Espinal.. 05/31 17:12 Order name: CBC with Diff ms3 05/31 17:12 Order name: CMP ms3 05/31 17:12 Order name: Lipase ms3 05/31 17:12 Order name: IV Saline Lock; Complete Time: 17:22 ms3 05/31 17:12 Order name: Labs collected and sent; Complete Time: 17:22 ms3 05/31 17:12 Order name: Type And Screen ms3 05/31 17:29 Order name: Glucose, Ancillary Testing; Complete Time: 17:40 EDMS 05/31 17:51 Order name: Comprehensive Metabolic Panel; Complete Time: 18:03 EDMS 05/31 17:51 Order name: Lipase; Complete Time: 18:03 EDMS 05/31 17:55 Order name: CBC with Automated Diff EDMS 05/31 18:09 Order name: Type and Screen EDMS 05/31 18:09 Order name: CXR XRAY ms3 05/31 18:26 Order name: PT-INR ld1 05/31 19:17 Order name: SARS RAPID iw 05/31 19:19 Order name: RAD; Complete Time: 19:20 EDMS 05/31 19:40 Order name: SARS-COV-2 Antigen Rapid; Complete Time: 19:41 EDMS 05/31 20:59 Order name: Protime (+INR) EDMS 05/31 21:00 Order name: ABO/RH no charge EDMS 05/31 21:03 Order name: Manual Differential EDMS EC:49 Rate is 114 beats/min. Rhythm is regular. QRS [place] is Normal. DC interval is normal. ms3 QRS interval is normal. Clinical impression: Sinus tachycardia. Interpreted by me. Reviewed by me. Administered Medications: 17:22 Drug: Zofran (Ondansetron) 4 mg Route: IVP; Site: right forearm; iw 17:25 Drug: ProTONIX (pantoprazole) 40 mg Route: IVP; Site: left forearm; iw 18:03 Drug: morphine 4 mg Route: IVP; Infused Over: 4 mins; Site: right antecubital; iw 18:04 Drug: ProTONIX (pantoprazole) 8 mg/hr Route: IV; Rate: 25 ml/hr; Site: right iw antecubital; 18:40 Drug: Octreotide Infusion (50 mcg/hr) - (Octreotide 500 mcg, NS 0.9% 500 ml) Route: IV; iw Rate: 50 ml/hr; Site: left jugular; Disposition Summary: 05/31/22 19:08 Hospitalization Ordered Hospitalization Status: Inpatient Admission ms3 Provider: Dimitrios Espinal ms3 Location: Telemetry/MedSurg (Inpatient) ms3 Condition: Stable ms3 Problem: new ms3 Symptoms: are unchanged ms3 Bed/Room Type: Standard ms3 Room Assignment: 210(05/31/22 20:34) cg Diagnosis - GI Bleed/ Gastrointestinal hemorrhage, unspecified ms3 - Vomiting ms3 - End stage renal disease ms3 - Anemia, unspecified ms3 Forms: - Medication Reconciliation Form ms3 - SBAR form ms3 Signatures: Dispatcher [employer] EDAny Diana, RN RN iw Timothy Montiel, YARD BRAKEMAN-C YARD BRAKEMAN-Cla1 Ana Del Valle RN RN cg Pennie Tovar RN RN jl7 Kiet Funez DO DO ms3 Corrections: (The following items were deleted from the chart) 20:34 19:08 ms3 cg
--- NOTE | 2022-05-31 19:19 | RAD REPORT ---
EXAM DESCRIPTION: CHAChest Single View05/31/2022 7:07 pm CLINICAL HISTORY: Shortness of breath COMPARISON: May 29, 2022 FINDINGS: Subcutaneous emphysema along the right lateral chest has diminished. Equivocal tiny right apical pneumothorax Small right pleural effusion with mild right basilar opacities Heart remains enlarged. Central venous catheter unchanged
[2022-05-31 19:40] LABS: SARS-CoV-2 Antigen Rapid Res Negative (Negative)
[2022-05-31] MEDS ORDERED: NA CHLORIDE 0.9% 250 ML IV SCH (20:00)
--- NOTE | 2022-05-31 20:06 | P.HP ---
Certification for Inpatient Patient admitted to: Inpatient With expected LOS: >2 Midnights Patient will require the following post-hospital care: None Practitioner: I am a practitioner with admitting privileges, knowledge of patient current condition, hospital course, and medical plan of care. Services: Services provided to patient in accordance with Admission requirements found in Title 42 Section 412.3 of the Code of Federal Regulations Patient History Date of Service: 05/31/22 Reason for admission: GI bleed History of Present Illness: 47-year-old male with history of ESRD on HD MWF, pleural effusions with recent right-sided chest tube, COPD, GERD, hypertension, hyperlipidemia, BPD presents to the emergency department for hematemesis/coffee-ground emesis. He reports he is vomited approximately 5 times per day and has been dark/appeared like coffee grounds. He denies similar episodes in the past. He reports he was at [facility] maybe about a week ago for right-sided pleural effusion and had a chest tube at that time which has since been removed. He was seen in the emergency department here on 05/29/2022, at that time he also had a chest x-ray which showed that he had a small apical right pneumothorax less than 10% lung volume, previously noted large loculated collection in the right chest appears significantly reduced, small amount of right pleural fluid and haziness in right lung base persist. Right-sided moderate subcutaneous emphysema. A repeat chest x-ray was performed today which revealed subcutaneous emphysema along the right lateral chest has diminished, equivocal tiny right apical pneumothorax, small right pleural effusion with mild right basilar opacities, heart remains enlarged. Central venous catheter unchanged. Patient saturating 100% on room air currently his hemoglobin today is 7.2, he did not have a CBC performed on the first during his ER visit. Given his anemia, hematemesis/coffee-ground emesis he was started on Protonix drip, 1 unit of PRBCs has been ordered to give now. GI was consulted while patient was in ED by me. Will admit for further evaluation and management of suspected upper GI bleed, anemia. - Past Medical/Surgical History -: ESRD -: GERD -: Hypertension -: Hyperlipidemia -: BPD -: COPD -: Dialysis catheter -: Bilateral upper extremity fistulasno longer in use Psychosocial/ Personal History: Patient currently resides at [facility] - Family History Mother -: Heart disease - Social History Smoking Status: Current every day smoker Counseled patient to stop smoking for: less than 10 minutes Alcohol use: No CD- Drugs: No Caffeine use: Yes Place of Residence: Home Review of Systems Respiratory: Shortness of Breath Gastrointestinal: Vomiting, Hematochezia Physical Examination - Physical Exam General: Alert, In no apparent distress, Oriented x3 HEENT: Atraumatic, PERRLA, Mucous membr. moist/pink, EOMI, Sclerae nonicteric Neck: Supple, 2+ carotid pulse no bruit, No LAD, Without JVD or thyroid abnormality Respiratory: Clear to auscultation bilaterally, Normal air movement Cardiovascular: No edema, Regular rate/rhythm, Normal S1 S2 Capillary refill: <2 Seconds Gastrointestinal: Normal bowel sounds, No tenderness, No masses, No rebound, No guarding Musculoskeletal: No tenderness Integumentary: No rashes Neurological: Normal speech, Normal strength at 5/5 x4 extr, Normal tone, Normal affect - Studies Laboratory Data (last 24 hrs) 05/31/22 17:23: Sodium 138, Potassium 4.4, BUN 55 H, Creatinine 7.03 H*, Glucose 96, Total Bilirubin 0.3, AST 51 H, ALT 22, Alkaline Phosphatase 76, Lipase 24 05/31/22 17:23: WBC 11.90 H, Hgb 7.2 L, Hct 22.0 L, Plt Count 384 Assessment and Plan - Plan Assessment: Acute blood loss anemia secondary to upper GI bleed ESRD on HD MWF Small right pleural effusion with recent chest tube/tiny apical pneumothorax Hypertension Hyperlipidemia GERD COPD BPD Plan: Acute blood loss anemia secondary to upper GI bleed Continue IV PPI, transfuse 1 unit PRBC now given ongoing coffee-ground emesis, hemoglobin less than 8. Patient denies history of GI bleed, does not appear to be on any anticoagulation. GI consulted. ESRD on HD MWF Nephrology consult in place. Small right pleural effusion with recent chest tube/tiny apical pneumothorax Patient with recent admission at [facility] with chest tube placement/drainage of pleural effusion/loculated pleural effusion. Only small effusion remains, patient saturating 100% on room air at this time. Tiny apical pneumothorax improving from previous chest x-ray 2 days ago. Continue to monitor. Hypertension Hold oral antihypertensives given active GI bleed. Hyperlipidemia N.p.o. for now continue home meds when appropriate GERD Continue continuous IV PPI COPD As needed nebs BPD Continue home medications when appropriate. DVT PPX: SCD Code status: Full Discharge Plan: Home Plan to discharge in: 72 Hours - Advance Directives Does patient have a Living Will: No Does patient have a Durable POA for Healthcare: No - Code Status/Comfort Care Code Status Assessed: Yes (Full code) Critical Care: No Time Spent Managing Pts Care (In Minutes): 70
[2022-05-31 20:58] LABS: Protime INR 1.24
[2022-05-31 21:02] LABS: Anisocytosis 2+; Blood Morphology Comment NOTED (NOT SEEN); Platelet Estimate ADEQ; Poikilocytosis 1+
[2022-05-31] MEDS ORDERED: NA CHLORIDE 0.9% 250 ML ONE (21:16)
[2022-05-31] MEDS ORDERED: NA CHLORIDE 0.9% 500 ML ONE (21:40)
[2022-06-01] MEDS ORDERED: PANTOPRAZOLE INJ 80 MG in NA CHLORIDE 0.9% 250 ML IV SCH ×2
[2022-06-01] MEDS ORDERED: ONDANSETRON 4 MG/2 ML VIAL IV PRN
[2022-06-01] MEDS: OCTREOTIDE 500 MCG in NA CHLORIDE 0.9% 500 ML IV SCH ×3 (00:18→14:45)
[2022-06-01] MEDS: PANTOPRAZOLE INJ 80 MG in NA CHLORIDE 0.9% 250 ML IV SCH ×4 (00:18→14:45)
[2022-06-01 01:25] VITALS: BMI 23.8
[2022-06-01 03:26] LABS: Potassium 5.5 mmol/L (3.5-5.1)
[2022-06-01 03:44] LABS: Absolute Lymphocytes (CBC) 2.8 K/uL (0.7-4.9); Lymphocytes % 26.6 % (15.3-44.8); MCV 83.9 fL (80-100); MPV 7.6 fL (7.6-11.3); RBC Red Blood Cell Count 2.36 M/uL (4.33-5.43)
[2022-06-01 03:52] LABS: Hematocrit 19.8 % (39.6-49.0)
[2022-06-01] MEDS ORDERED: NA CHLORIDE 0.9% 250 ML IV SCH (04:00)
[2022-06-01] MEDS ORDERED: MANNITOL 25% 12.5 GM/50 ML VIAL IV PRN ×3 (07:42→13:08)
[2022-06-01] MEDS ORDERED: NA CHLORIDE 0.9% 1,000 ML IV PRN (07:42)
[2022-06-01] MEDS ORDERED: ALBUMIN HUMAN 25% 50 ML IV SCH (08:00)
--- NOTE | 2022-06-01 08:51 | P.PN ---
Subjective Date of Service: 06/01/22 Chief Complaint: GI bleed Subjective: Improving (Patient is improving doing well no further hematemesis receiving blood transfusion no new complaints no prior history of upper GI bleed) Review of Systems Unremarkable Physical Examination - Vital Signs Temperature: 97 F Blood Pressure: 109/64 Pulse: 87 Respirations: 18 Pulse Ox (%): 99 - Physical Exam General: Alert, In no apparent distress, Oriented x3 Neck: Supple Cardiovascular: No edema, Regular rate/rhythm - Studies Laboratory Data (last 24 hrs) 05/31/22 20:37: PT 13.6 H, INR 1.24 05/31/22 17:23: Sodium 138, Potassium 4.4, BUN 55 H, Creatinine 7.03 H*, Glucose 96, Total Bilirubin 0.3, AST 51 H, ALT 22, Alkaline Phosphatase 76, Lipase 24 05/31/22 17:23: WBC 11.90 H, Hgb 7.2 L, Hct 22.0 L, Plt Count 384 Assessment And Plan - Current Problems (Diagnosis) (1) GI bleeding Current Visit: Yes Status: Acute Plan: Patient is 47 years of age admitted with upper GI bleed coffee-ground emesis rec eiving blood transfusion chronic renal failure on dialysis denies any use of NSAIDs prior history of peptic ulcer disease Slight haziness on the right side normal white count GI consult nephrology con sult have been ordered no further bleeding since admission patient is on a PPI drip Qualifiers: GI bleed type/associated pathology: unspecified gastrointestinal hemorrhage type Qualified Code(s): K92.2 - Gastrointestinal hemorrhage, unspecified
[2022-06-01] MEDS ORDERED: INFLUENZA VACCINE (for 6+ mo) 0.5 ML DOSE IMVAC ONE (12:00)
[2022-06-01] MEDS: NICOTINE 14 MG/PAT TD SCH (12:54)
--- NOTE | 2022-06-01 15:44 | P.CNS ---
Date of Consult: 06/01/22 Reason for Consult: ESRD Requesting Physician: Dimitrios Espinal Chief Complaint: GI bleed History of Present Illness: 47-year-old male with history of ESRD on HD MWF, pleural effusions with recent right-sided chest tube, COPD, GERD, hypertension, hyperlipidemia, BPD presents to the emergency department for hematemesis/coffee-ground emesis. He reports he is vomited approximately 5 times per day and has been dark/appeared like coffee grounds. He denies similar episodes in the past. He reports he was at [facility] maybe about a week ago for right-sided pleural effusion and had a chest tube at that time which has since been removed. He was seen in the emergency department here on 05/29/2022, at that time he also had a chest x-ray which showed that he had a small apical right pneumothorax less than 10% lung volume, previously note d large loculated collection in the right chest appears significantly reduced, small amount of right pleural fluid and haziness in right lung base persist. Right-sided moderate subcutaneous emphysema. A repeat chest x-ray was performed today which revealed subcutaneous emphysema along the right lateral chest has diminished, equivocal tiny right apical pneumothorax, small right pleural effusion with mild right basilar opacities, heart remains enlarged. Central venous catheter unchanged. Patient saturating 100% on room air currently his hemoglobin today is 7.2, he did not have a CBC performed on the first during his ER visit. Given his anemia, hematemesis/coffee-ground emesis he was started on Protonix drip, 1 unit of PRBCs has been ordered to give now. GI was consulted while patient was in ED by me. Will admit for further evaluation and management of suspected upper GI bleed, anemia. 17:42 This 47 yrs old Black Male presents to ER via Unassigned with complaints of GI Bleeding.ms3 17:42 47-year-old male with past medical history of anemia, anxiety, bipolar, cocaine abuse, ms3 COPD, DVT presents via [facility] for hematemesis. On EMS arrival patient's systolic blood pressure was 91. Patient's heart rate currently 118, blood pressure 109/66, oxygen saturation 100%. Patient states he was feeling dizzy and lightheaded. Patient states emesis began today during dialysis. Allergies No Known Allergies Allergy (Unverified 05/31/22 20:46) Home medications list reviewed: Yes - Past Medical/Surgical History Diabetic: Yes -: ESRD on HD (Dr. Munoz/ [facility]) -: GERD -: Hypertension -: Hyperlipidemia -: BPD -: COPD -: Dialysis catheter -: Bilateral upper extremity fistulasno longer in use Psychosocial/ Personal History: Patient currently resides at [facility] - Family History Mother Medical History: Heart disease - Social History Smoking Status: Current every day smoker Alcohol use: No CD- Drugs: No Caffeine use: Yes Place of Residence: Home Review of Systems 10-point ROS is otherwise unremarkable General: Weakness Physical Examination Temp Pulse Resp BP Pulse Ox 98.4 F 88 14 123/56 L 97 06/01/22 12:00 06/01/22 12:00 06/01/22 12:00 06/01/22 12:00 06/01/22 12:00 General: In no apparent distress, Oriented x3, Cooperative HEENT: Atraumatic Neck: Supple Respiratory: Clear to auscultation bilaterally Cardiovascular: No edema, Regular rate/rhythm Gastrointestinal: Soft and benign, Non-distended Musculoskeletal: No clubbing, No contractures Integumentary: No rashes, No cyanosis Neurological: Normal speech Laboratory Data (last 24 hrs) 05/31/22 20:37: PT 13.6 H, INR 1.24 05/31/22 17:23: Sodium 138, Potassium 4.4, BUN 55 H, Creatinine 7.03 H*, Glucose 96, Total Bilirubin 0.3, AST 51 H, ALT 22, Alkaline Phosphatase 76, Lipase 24 05/31/22 17:23: WBC 11.90 H, Hgb 7.2 L, Hct 22.0 L, Plt Count 384 Imagings Data: EXAM DESCRIPTION: Arelis Single View05/31/2022 7:07 pm CLINICAL HISTORY: Shortness of breath COMPARISON: May 29, 2022 FINDINGS: Subcutaneous emphysema along the right lateral chest has diminished. Equivocal tiny right apical pneumothorax Small right pleural effusion with mild right basilar opacities Heart remains enlarged. Central venous catheter unchanged Conclusions/Impression: ESRD on HD -HD TIW -Seen and examined on HD Hyperkalemia -Acute HD -Renal diet HTN with CKD/ CHF -Hold antihypertensives Diastolic CHF, chronic -Daily weight -HD with UF Anemia in CKD Anemia due to blood loss/ GI bleed -Retacrit X1 -Follow up with GI -Continue Protonix and Octreotide CKD MBD -Start Ergo Thank you kindly for the consultation
[2022-06-01] MEDS: MORPHINE 2 MG/ML SYR IV PRN (18:58)
[2022-06-01 19:22] LABS: Hematocrit 27.2 % (39.6-49.0)
[2022-06-01] MEDS ORDERED: DRISDOL (VITAMIN D=ERGOCALCIFEROL) 50000 UNIT CAP PO SCH (22:00)
[2022-06-01] MEDS ORDERED: ACETAMINOPHEN 325 MG TABLET PO PRN (22:11)
[2022-06-02] MEDS: PANTOPRAZOLE INJ 80 MG in NA CHLORIDE 0.9% 250 ML IV SCH ×3 (00:14→22:10)
[2022-06-02] MEDS: OCTREOTIDE 500 MCG in NA CHLORIDE 0.9% 500 ML IV SCH ×3 (00:15→22:11)
[2022-06-02] MEDS: MORPHINE 2 MG/ML SYR IV PRN ×4 (01:09→20:37)
[2022-06-02] MEDS: PIPER TAZO 3.375 GM in NA CHLORIDE 0.9% 100 ML IV SCH ×2 (01:12→08:35)
[2022-06-02 06:34] LABS: Absolute Lymphocytes (CBC) 0.9 K/uL (0.7-4.9); Hematocrit 23.7 % (39.6-49.0); Lymphocytes % 8.2 % (15.3-44.8); MCV 85.2 fL (80-100); MPV 7.3 fL (7.6-11.3); RBC Red Blood Cell Count 2.79 M/uL (4.33-5.43)
[2022-06-02 06:52] LABS: Potassium 4.4 mmol/L (3.5-5.1)
[2022-06-02] MEDS: MULTIVITAMINS,THERAPEUT 1 TAB PO SCH (08:33)
[2022-06-02] MEDS: NICOTINE 14 MG/PAT TD SCH (08:34)
[2022-06-02] MEDS ORDERED: EPOETIN ALFA 10,000 UNIT/ML VIAL SQ SCH (09:00)
[2022-06-02] MEDS ORDERED: DRISDOL (VITAMIN D=ERGOCALCIFEROL) 50000 UNIT CAP PO SCH (09:00)
--- NOTE | 2022-06-02 09:46 | P.PN ---
Subjective Date of Service: 06/02/22 Chief Complaint: Hematemesis Patient started complaining of vomiting or coughing up blood this morning is worse with ambulation is doing better yesterday Review of Systems 10-point ROS is otherwise unremarkable Physical Examination - Vital Signs Temperature: 98.9 F Blood Pressure: 145/64 Pulse: 80 Respirations: 16 Pulse Ox (%): 98 - Physical Exam General: Alert, Oriented x3 HEENT: Atraumatic Neck: Supple Cardiovascular: No edema, Regular rate/rhythm Assessment And Plan - Current Problems (Diagnosis) (1) GI bleeding Current Visit: Yes Status: Acute Plan: Patient started coughing/vomiting blood today he had a chest tube placed has subcutaneous emphysema on the right side plan to do a CT scan with contrast today and by Dr. Burger may need an EGD if no apparent reason on his CT scan patient has chronic renal failure mild anemia currently on IV antibiotics and IV PPI vital signs satisfactory slight decline in his hemoglobin Qualifiers: GI bleed type/associated pathology: unspecified gastrointestinal hemorrhage type Qualified Code(s): K92.2 - Gastrointestinal hemorrhage, unspecified
[2022-06-02] MEDS ORDERED: EPINEPHRINE/PF 1 MG/ML AMP ONE (11:29)
[2022-06-02] MEDS ORDERED: Ringers Lactate 1,000 ML IV ONE (11:47)
[2022-06-02] MEDS ORDERED: propofoL 200 MG/20 ML VIAL IV ONE (11:54)
[2022-06-02] MEDS ORDERED: LIDOCAINE 1% MPF 5 ML VIAL ONE (11:55)
[2022-06-02] MEDS ORDERED: INFLUENZA VACCINE (for 6+ mo) 0.5 ML DOSE IMVAC ONE ×2 (12:00→18:00)
--- NOTE | 2022-06-02 14:12 | RAD REPORT ---
EXAM DESCRIPTION: CT - Chest Angio - 06/02/2022 1:42 pm CLINICAL HISTORY: Hemoptysis COMPARISON: May 29, 2022 TECHNIQUE: Dynamically enhanced axial 3 mm thick images of the chest were obtained during administra tion of 90 mL Isovue 370 IV contrast. Due to machine malfunction images were not obtained. An additio nal 90 mL Isovue 370 IV contrast administered intravenously. Coronal and oblique reconstruction images were generated and reviewed. Exam utilizes a protocol for o ptimal evaluation of pulmonary arterial tree. Maximum intensity projections 3D imaging was utilized All CT scans are performed using dose optimization technique as appropriate and may include automated exposure control or mA/KV adjustment according to patient size. FINDINGS: The opacification of pulmonary arteries is somewhat suboptimal. No gross pulmonary embolis m seen. Aortic root measures 4.1 centimeters. Aortic stent aortic arch proximal descending thoracic aorta Minimal right pleural effusion. . A pericardial effusion is not seen. Mild lymphadenopathy daniel and mediastinum presumably reactive Mild right basilar atelectasis. Mild left lower lobe opacity. Very prominent collateral veins throughout predominantly the subcutaneous tissues right chest. Subcut aneous emphysema is again demonstrated. IMPRESSION: No gross evidence of a pulmonary embolism Mild left lower lobe opacity may represent pneumonia
--- NOTE | 2022-06-02 16:59 | CON ---
Date of Consultation: 06/01/2022 Reason For Consultation: Hematemesis x3 yesterday. History Of Present Illness: The patient is a 47-year-old male with history of hyper tension, end-stage renal disease, on hemodialysis, gastric reflux disease, COPD, hyperlipidemia, and recent pleural effusion at [facility] last week with chest tube placement, which has been removed. The kyle gordillo presented to the hospital with report of hematemesis x3 yesterday. The patient states he feels fine now without complaint. No hematemesis, coffee-grounds emesis, hematuria, melena, hematochezia t steve. Only hematemesis yesterday x3. He denies any abdominal pain, fevers, chills, night sweats, ch lorena in bowel habits, diarrhea, constipation, melena, hematochezia. He did have some nausea and vomi ting yesterday, but none today. He denies any NSAIDs, aspirin, blood thinners except heparin when he has hemodialysis. Past Medical History: Significant for hypertension, end-stage renal disease, on hemodialysis, pleura l effusions last week at [facility] with chest tube placement which has been removed. He said he was bleed ing from the chest tube as well. He reports he is status post dialysis catheter placement in the rig ht upper extremity and bilateral upper extremity fistulas, no longer in use. Social History: Single, never , 2 children. Positive tobacco. Rare alcohol. [facility] r esident. Family History: Father alive, no known medical diseases. Mother of sickle cell anemia complica tions. Review of Systems: The patient has hematemesis x3 yesterday with nausea, vomiting; however, none today. He denies any a bdominal pain, fevers, chills, night sweats, change in bowel habits, diarrhea, constipation, melena, hematochezia, hemoptysis, hematuria, dysuria, polyuria, polydipsia, epistaxis, chest pain, shortness of breath, seizure, syncope, lower extremity muscle aches, joint aches, backaches. No depression or anxiety. Physical Examination: Vital Signs: He is 5 feet 8 inches, 156 pounds, BMI 23.8 kg/m2. He has a temperature of 98.4 degree s Fahrenheit, pulse 80, respirations 14, blood pressure 103/56, O2 saturation 97%. GENERAL: He is a well-nourished, well-developed male, lying in bed, in no acute distress. HEENT: Normocephalic, atraumatic. Anicteric. Pupils equal, round, and reactive to light. Extraocu lar movements intact. Oropharynx clear. Neck: Supple. No masses. Respirations: Clear to auscultation bilaterally. Cardiac: Regular rate and rhythm. No gallops. Abdomen: Positive bowel sounds. Soft, nontender, nondistended. No hepatosplenomegaly. No peritone al or Lemon sign. Extremities: No clubbing, cyanosis. Neuro: Alert and oriented x3. Able to move all extremities well. Some decrease sensation to light touch. Laboratory Data: The patient has a white count of 10.5, hemoglobin of 6.6, hematocrit of 19.8, MCV o f 84, platelet count 333, polys of 52%, lymphocytes 27%, monocytes 15%, eosinophils 5%. PT of 13.6, INR of 1.24. He has a sodium of 137, potassium 5.5, chloride 105, bicarb 26, BUN 68, creatinine of 7 .75, glucose 87, calcium 8.7, total bilirubin 0.3, AST of 51, ALT of 22, alkaline phosphatase 76, tot al protein 6.9, albumin 2.3, lipase 24. COVID-19 testing is negative. Chest x-ray revealed small ri ght pleural effusion, subcutaneous emphysema in the right lateral chest is diminished with focal tiny right apical pneumothorax, right basilar opacities. Heart is enlarged. Central venous catheter is unchanged. Impression: 1.Hematemesis x3 yesterday, nausea, vomiting, none today. Denies any abdominal pain, fevers, chills , night sweats, change in bowel habits, diarrhea, constipation, melena, hematochezia, epistaxis, hemo ptysis, hematuria, dysuria, polyuria, polydipsia. No NSAIDs, aspirin, blood thinners except heparin with hemodialysis. 2.Anemia. Hemoglobin of 6.6. 3.History of hypertension, end-stage renal disease, on hemodialysis, bleeding, pleural effusion with chest tube placement last week at [facility], he reports another . Recommendations: 1.PPI therapy. 2.Serial H and H and transfuse p.r.n. 3.Try to obtain [facility] surgical reports, especially the chest tube and other procedures that were perf ormed there last week or recently. 4.Proceed with EGD. SRINI/CARLOS Voice ID: [id number] Report ID: [id number]
[2022-06-02 21:10] LABS: Hematocrit 20.3 % (39.6-49.0)
[2022-06-02] MEDS ORDERED: NA CHLORIDE 0.9% 250 ML IV SCH (22:00)
--- NOTE | 2022-06-02 22:34 | P.PN ---
Date of Service: 06/02/22 Vital Signs Temp Pulse Resp BP Pulse Ox 97 F 77 14 103/51 L 97 06/02/22 17:00 06/02/22 19:00 06/02/22 20:37 06/02/22 19:00 06/02/22 20:37 Medications Acetaminophen (Acetaminophen 325 Mg Tablet) 650 mg PO Q6H PRN PRN Reason: TEMP > 100' F Last Admin: 06/01/22 22:20 Dose: 650 mg Ergocalciferol (Drisdol (Vitamin D=Ergocalciferol) 26304 Unit Cap) 50,000 unit PO Q7D [facility] Last Admin: 06/02/22 08:33 Dose: 50,000 unit Heparin Sodium (Porcine) (Heparin 1,000 Unit/Ml Vial) 6,000 unit IV EVERY HD PRN PRN Reason: AFTER EACH Last Admin: 06/01/22 18:02 Dose: 6,000 unit Sodium Chloride (Sodium Chloride) 250 mls @ 0 mls/hr IV .Q0M MARCIO Sodium Chloride (Sodium Chloride) 250 mls @ 0 mls/hr IV .Q0M MARCIO Albumin Human (Albumin 25%) 50 mls @ 100 mls/hr IV EVERY HD [facility] Pantoprazole Sodium 80 mg/ (Sodium Chloride) 250 mls @ 25 mls/hr IV Q10H [facility] Last Admin: 06/02/22 22:10 Dose: 250 mls Octreotide Acetate 500 mcg/ (Sodium Chloride) 501 mls @ 50.1 mls/hr IV Q10H [facility] Last Admin: 06/02/22 22:11 Dose: 501 mls Sodium Chloride (Sodium Chloride) 250 mls @ 0 mls/hr IV .Q0M MARCIO Mannitol (Mannitol 25% 12.5 Gm/50 Ml Vial) 12.5 gm IV EVERY HD PRN PRN Reason: Titrate to SBP Morphine Sulfate (Morphine 2 Mg/Ml Syr) 2 mg IV Q6H PRN PRN Reason: Pain scale 8-10 (Severe) Last Admin: 06/02/22 20:37 Dose: 2 mg Nicotine (Nicotine 14 Mg/Pat) 14 mg TD DAILY [facility] Last Admin: 06/02/22 08:34 Dose: 14 mg Ondansetron HCl (Ondansetron 4 Mg/2 Ml Vial) 4 mg IV Q6HP PRN PRN Reason: NAUSEA / VOMITING Sodium Chloride (Flush Normal Saline 10 Ml) 10 ml IV BID [facility] Last Admin: 06/02/22 20:40 Dose: 10 ml Vitamin B Complex/Vit C/Folic Acid (Multivitamins,Therapeut 1 Tab) 1 tab PO DAILY [facility] Last Admin: 06/02/22 08:33 Dose: 1 tab Lab Results (last 24 hrs) 05/31/22 17:23: ABO/Rh A POSITIVE, Solid Phase Ab Screen Negative, Crossmatch See Detail Assessment/ Plan: Nephrology No dyspnea No chest pain The patient was coughing up blood earlier today No acute events overnight Vitals, medications, blood work and imaging reviewed in the chart. General: In no apparent distress, Oriented x3, Cooperative HEENT: Atraumatic Neck: Supple Respiratory: Clear to auscultation bilaterally Cardiovascular: No edema, Regular rate/rhythm Gastrointestinal: Soft and benign, Non-distended Musculoskeletal: No clubbing, No contractures Integumentary: No rashes, No cyanosis Neurological: Normal speech Greater than 30min patient care Laboratory Data (last 24 hrs) 05/31/22 20:37: PT 13.6 H, INR 1.24 05/31/22 17:23: Sodium 138, Potassium 4.4, BUN 55 H, Creatinine 7.03 H*, Glucose 96, Total Bilirubin 0.3, AST 51 H, ALT 22, Alkaline Phosphatase 76, Lipase 24 05/31/22 17:23: WBC 11.90 H, Hgb 7.2 L, Hct 22.0 L, Plt Count 384 Imagings Data: EXAM DESCRIPTION: [facility] Single View05/31/2022 7:07 pm CLINICAL HISTORY: Shortness of breath COMPARISON: May 29, 2022 FINDINGS: Subcutaneous emphysema along the right lateral chest has diminished. Equivocal tiny right apical pneumothorax Small right pleural effusion with mild right basilar opacities Heart remains enlarged. Central venous catheter unchanged [facility] EXAM DESCRIPTION: CT - Chest Angio - 06/02/2022 1:42 pm CLINICAL HISTORY: Hemoptysis COMPARISON: May 29, 2022 TECHNIQUE: Dynamically enhanced axial 3 mm thick images of the chest were obtained during administration of 90 mL Isovue 370 IV contrast. Due to machine malfunction images were not obtained. An additional 90 mL Isovue 370 IV contrast administered intravenously. Coronal and oblique reconstruction images were generated and reviewed. Exam utilizes a protocol for optimal evaluation of pulmonary arterial tree. Maximum intensity projections 3D imaging was utilized All CT scans are performed using dose optimization technique as appropriate and may include automated exposure control or mA/KV adjustment according to patient size. FINDINGS: The opacification of pulmonary arteries is somewhat suboptimal. No gross pulmonary embolism seen. Aortic root measures 4.1 centimeters. Aortic stent aortic arch proximal descending thoracic aorta Minimal right pleural effusion. . A pericardial effusion is not seen. Mild lymphadenopathy daniel and mediastinum presumably reactive Mild right basilar atelectasis. Mild left lower lobe opacity. Very prominent collateral veins throughout predominantly the subcutaneous tissues right chest. Subcutaneous emphysema is again demonstrated. IMPRESSION: No gross evidence of a pulmonary embolism Mild left lower lobe opacity may represent pneumonia Conclusions/Impression: ESRD on HD -HD TIW Hyperkalemia -Renal diet HTN with CKD/ CHF -Hold antihypertensives due to hypotension Diastolic CHF, chronic -Daily weight -HD with UF Anemia in CKD Anemia due to blood loss/ GI bleed -Retacrit MWF -Follow up with GI -Continue Protonix and Octreotide CKD MBD -Continue Ergo
[2022-06-03 00:15] VITALS: O2SAT 96
[2022-06-03] MEDS: MORPHINE 2 MG/ML SYR IV PRN ×2 (03:21→18:50)
[2022-06-03 05:08] LABS: Hematocrit 24.2 % (39.6-49.0); Lymphocytes % 15.4 % (15.3-44.8); MCV 86.3 fL (80-100); MPV 7.5 fL (7.6-11.3)
[2022-06-03 05:35] LABS: AST/SGOT 21 U/L (15-37); Albumin 1.8 g/dL (3.4-5.0); Alkaline Phosphatase 51 U/L (45-117); BUN Blood Urea Nitrogen 62 mg/dL (7-18); Bicarbonate 23 mmol/L (21-32); Bilirubin Total 0.4 mg/dL (0.2-1.0); Glomerular Filtration Rate 8 ml/min (=/>90); Glucose Level 87 mg/dL (74-106); Protein, Total 5.3 g/dL (6.4-8.2); Sodium Level 136 mmol/L (136-145)
[2022-06-03 05:36] LABS: ALT/SGPT < 10 U/L (16-61)
[2022-06-03] MEDS: PANTOPRAZOLE INJ 80 MG in NA CHLORIDE 0.9% 250 ML IV SCH ×2 (07:45→18:50)
[2022-06-03] MEDS: MULTIVITAMINS,THERAPEUT 1 TAB PO SCH (08:48)
[2022-06-03 09:31] LABS: Hematocrit 24.5 % (39.6-49.0)
[2022-06-03] MEDS: NICOTINE 14 MG/PAT TD SCH (09:57)
--- NOTE | 2022-06-03 09:59 | P.PN ---
Date of Service: 06/03/22 Subjective Review of Systems 10-point ROS is otherwise unremarkable Physical Examination - Vital Signs Reviewed - Physical Exam General: Alert, Oriented x3 HEENT: Atraumatic Neck: Supple Cardiovascular: No edema, Regular rate/rhythm Abdomen: Pulmonary: Neurology: Assessment And Plan - Current Problems (Diagnosis) (1) GI bleeding Current Visit: Yes Status: Acute Plan: Patient started coughing/vomiting blood today he had a chest tube placed has subcutaneous emphysema on the right side plan to do a CT scan with contrast today and by Dr. Burger may need an EGD if no apparent reason on his CT scan patient has chronic renal failure mild anemia currently on IV antibiotics and IV PPI vital signs satisfactory slight decline in his hemoglobin Qualifiers: GI bleed type/associated pathology: unspecified gastrointestinal hemorrhage type Qualified Code(s): K92.2 - Gastrointestinal hemorrhage, unspecified
[2022-06-03] MEDS: OCTREOTIDE 500 MCG in NA CHLORIDE 0.9% 500 ML IV SCH ×2 (10:20→22:26)
[2022-06-03 15:25] LABS: Hematocrit 23.9 % (39.6-49.0)
--- NOTE | 2022-06-03 16:48 | EKG ---
Test Date: 2022-05-31 Test Time: 17:21:16 Transfer Professor: TM MEASUREMENT RESULTS: Intervals: Rate: 114 [place]: 160 QRSD: 82 QT: 334 QTc: 460 [place]: P: 61 [place]: 160 QRS: 31 T: 79 INTERPRETIVE STATEMENTS: Sinus tachycardia Possible Left atrial enlargement Anteroseptal infarct, age undetermined Abnormal ECG Compared to ECG 05/29/2022 13:21:22 Sinus rhythm no longer present Myocardial infarct finding still present Electronically Signed On 06-03-22 16:39:59 [employer] ENGINE[employer] by Toni Ríos
--- NOTE | 2022-06-03 20:16 | P.PN ---
Date of Service: 06/03/22 Vital Signs Temp Pulse Resp BP Pulse Ox 97.3 F 85 17 147/80 H 100 06/03/22 12:00 06/03/22 20:00 06/03/22 20:00 06/03/22 20:00 06/03/22 18:50 Medications Acetaminophen (Acetaminophen 325 Mg Tablet) 650 mg PO Q6H PRN PRN Reason: TEMP > 100' F Last Admin: 06/01/22 22:20 Dose: 650 mg Ergocalciferol (Drisdol (Vitamin D=Ergocalciferol) 63579 Unit Cap) 50,000 unit PO Q7D [facility] Last Admin: 06/02/22 08:33 Dose: 50,000 unit Heparin Sodium (Porcine) (Heparin 1,000 Unit/Ml Vial) 6,000 unit IV EVERY HD PRN PRN Reason: AFTER EACH Last Admin: 06/03/22 18:32 Dose: 6,000 unit Sodium Chloride (Sodium Chloride) 250 mls @ 0 mls/hr IV .Q0M MARCIO Sodium Chloride (Sodium Chloride) 250 mls @ 0 mls/hr IV .Q0M MARCIO Albumin Human (Albumin 25%) 50 mls @ 100 mls/hr IV EVERY HD [facility] Pantoprazole Sodium 80 mg/ (Sodium Chloride) 250 mls @ 25 mls/hr IV Q10H [facility] Last Admin: 06/03/22 18:50 Dose: 250 mls Octreotide Acetate 500 mcg/ (Sodium Chloride) 501 mls @ 50.1 mls/hr IV Q10H [facility] Last Admin: 06/03/22 10:20 Dose: 501 mls Sodium Chloride (Sodium Chloride) 250 mls @ 0 mls/hr IV .Q0M MARCIO Mannitol (Mannitol 25% 12.5 Gm/50 Ml Vial) 12.5 gm IV EVERY HD PRN PRN Reason: Titrate to SBP Morphine Sulfate (Morphine 2 Mg/Ml Syr) 2 mg IV Q6H PRN PRN Reason: Pain scale 8-10 (Severe) Last Admin: 06/03/22 18:50 Dose: 2 mg Nicotine (Nicotine 14 Mg/Pat) 14 mg TD DAILY [facility] Last Admin: 06/03/22 09:57 Dose: 14 mg Ondansetron HCl (Ondansetron 4 Mg/2 Ml Vial) 4 mg IV Q6HP PRN PRN Reason: NAUSEA / VOMITING Sodium Chloride (Flush Normal Saline 10 Ml) 10 ml IV BID [facility] Last Admin: 06/03/22 08:48 Dose: 10 ml Vitamin B Complex/Vit C/Folic Acid (Multivitamins,Therapeut 1 Tab) 1 tab PO DAILY [facility] Last Admin: 06/03/22 08:48 Dose: Not Given Lab Results (last 24 hrs) 05/31/22 17:23: ABO/Rh A POSITIVE, Solid Phase Ab Screen Negative, Crossmatch See Detail Assessment/ Plan: Nephrology No dyspnea No chest pain Feeling better today No acute events overnight Vitals, medications, blood work and imaging reviewed in the chart. General: In no apparent distress, Oriented x3, Cooperative HEENT: Atraumatic Neck: Supple Respiratory: Clear to auscultation bilaterally Cardiovascular: No edema, Regular rate/rhythm Gastrointestinal: Soft and benign, Non-distended Musculoskeletal: No clubbing, No contractures Integumentary: No rashes, No cyanosis Neurological: Normal speech Laboratory Data (last 24 hrs) 05/31/22 20:37: PT 13.6 H, INR 1.24 05/31/22 17:23: Sodium 138, Potassium 4.4, BUN 55 H, Creatinine 7.03 H*, Glucose 96, Total Bilirubin 0.3, AST 51 H, ALT 22, Alkaline Phosphatase 76, Lipase 24 05/31/22 17:23: WBC 11.90 H, Hgb 7.2 L, Hct 22.0 L, Plt Count 384 Imagings Data: EXAM DESCRIPTION: [facility] Single View05/31/2022 7:07 pm CLINICAL HISTORY: Shortness of breath COMPARISON: May 29, 2022 FINDINGS: Subcutaneous emphysema along the right lateral chest has diminished. Equivocal tiny right apical pneumothorax Small right pleural effusion with mild right basilar opacities Heart remains enlarged. Central venous catheter unchanged [facility] EXAM DESCRIPTION: CT - Chest Angio - 06/02/2022 1:42 pm CLINICAL HISTORY: Hemoptysis COMPARISON: May 29, 2022 TECHNIQUE: Dynamically enhanced axial 3 mm thick images of the chest were obta ined during administration of 90 mL Isovue 370 IV contrast. Due to machine malfunction images were not obtained. An additional 90 mL Isovue 370 IV contrast administered intravenously. Coronal and oblique reconstruction images were generated and reviewed. Exam utilizes a protocol for optimal evaluation of pulmonary arterial tree. Maximum intensity projections 3D imaging was utilized All CT scans are performed using dose optimization technique as appropriate and may include automated exposure control or mA/KV adjustment according to patient size. FINDINGS: The opacification of pulmonary arteries is somewhat suboptimal. No gross pulmonary embolism seen. Aortic root measures 4.1 centimeters. Aortic stent aortic arch proximal descending thoracic aorta Minimal right pleural effusion. . A pericardial effusion is not seen. Mild lymphadenopathy daniel and mediastinum presumably reactive Mild right basilar atelectasis. Mild left lower lobe opacity. Very prominent collateral veins throughout predominantly the subcutaneous tissues right chest. Subcutaneous emphysema is again demonstrated. IMPRESSION: No gross evidence of a pulmonary embolism Mild left lower lobe opacity may represent pneumonia Conclusions/Impression: ESRD on HD -HD TIW Hyperkalemia -Renal diet HTN with CKD/ CHF -Hold antihypertensives due to hypotension Diastolic CHF, chronic -Daily weight -HD with UF Anemia in CKD Anemia due to blood loss/ GI bleed -Retacrit MWF -Transfuse PRBC prn -Follow up with GI -Continue Protonix and Octreotide CKD MBD -Continue Ergo
[2022-06-03 23:45] VITALS: BP 170/81; TEMP 98
== END 2022-06-03 23:45 | disposition short-term general hospital (02) | DRG 377 ==
LOC: ER 17:10 → 2ND 20:49 → 3RD-ICU 06-02 15:55
PROVIDERS: ADMIT Hospitalist; ATTEND Hospitalist
PROC: 5A1D70Z Performance of Urinary Filtration, Intermittent, Less than 6 Hours Per Day (ICD-10-PCS; 2022-06-01)
PROC: 30233N1 Transfusion of Nonautologous Red Blood Cells into Peripheral Vein, Percutaneous Approach (ICD-10-PCS; 2022-06-01)
PROC: 0DJ08ZZ Inspection of Upper Intestinal Tract, Via Natural or Artificial Opening Endoscopic (ICD-10-PCS; principal; 2022-06-02 11:30)
DX: K92.2 Gastrointestinal hemorrhage, unspecified (principal); N18.6 End stage renal disease; D62 Acute posthemorrhagic anemia; T79.7XXA Traumatic subcutaneous emphysema, initial encounter; I50.32 Chronic diastolic (congestive) heart failure; I13.2 Hypertensive heart and chronic kidney disease with heart failure and with stage 5 chronic kidney disease, or end stage renal disease; D63.1 Anemia in chronic kidney disease; K21.9 Gastro-esophageal reflux disease without esophagitis; K44.9 Diaphragmatic hernia without obstruction or gangrene; N40.0 Benign prostatic hyperplasia without lower urinary tract symptoms; E87.5 Hyperkalemia; E78.5 Hyperlipidemia, unspecified; F17.210 Nicotine dependence, cigarettes, uncomplicated; Z99.2 Dependence on renal dialysis; Z86.718 Personal history of other venous thrombosis and embolism; Z20.822 Contact with and (suspected) exposure to COVID-19
CPT/HCPCS: 36415; 36430; 71045; 71275; 80048; 80053; 82947; 83605; 83690; 85014; 85018; 85025; 85610; 86480; 86850; 86900; 86901; 87040; 87811; 90935; 93005; 99285; C9113; J0171; J1644; J2001; J2150; J2250; J2270; J2354; J2405; J2543; J2704; J7040; J7050; J7120; P9016; Q9967

== ENCOUNTER 2022-06-12 13:42 | Emergency (ER) | payer OTHER ==
--- OUTSIDE RECORDS SUMMARY | 2022-06-12 14:11 | XMS REPORT | Continuity of Care Document ---
:1975 Author Organization [facility] t Address [address] [place] [address] Care Team Providers Name Role Phone UNKNOWN, REFFERING Primary Care Physician Unavailable ENRIQUE THOMPSON Attending Clinician Unavailable _[facility]_Vito_Gume Attending Clinician Unavailable Ashleigh Ayon RN Attending Clinician LEROY MURRAY Attending Clinician Unavailable Terri ELLIOTT, Leroy Attending Clinician Angie Pascual MD Attending Clinician Crescencio ELLIOTT, Brenna Attending Clinician Lana Angel LVN Attending Clinician JEAN-CLAUDE COHEN Attending Clinician Unavailable Ld Bain Attending Clinician Ramsey ELLIOTT, Natalie Johnston Attending Clinician Joe ELLIOTT, Jovani Bautista Attending Clinician Aldo ELLIOTT, Jean-Claude Attending Clinician [facility], [facility] [place] Transition Attending Clinician Unavailable MIGUEL ÁNGEL JUSTICE K.H. Attending Clinician Unavailable COLLEEN VIZCARRA Attending Clinician Unavailable Conrad GOTTLIEB-C, Aubree Beckett Attending Clinician [phone] Abbi ELLIOTT, Bunny Attending Clinician Reshma ELLIOTT, Miguel Ángel K.H. Attending Clinician Doctor Unassigned, [place] Attending Clinician Unavailable Phong BAKER, Emily Attending Clinician Unavailable Ko ELLIOTT, Jorje Vasquez Attending Clinician Medardo ELLIOTT, Alma Luke Attending Clinician Alex ELLIOTT, Rakel Mcguire Attending Clinician Evans ELLIOTT, Nakul Pedro Attending Clinician [phone] Yaniv ELLIOTT, Virgilio Hill Attending Clinician Dallas Kowalski CRNA Attending Clinician [phone] Mara Padron Attending Clinician [phone] Robert Mccarthy Attending Clinician [phone] RUBEN_NOE Attending Clinician Unavailable June Attending Clinician [phone] GC_BAHC_Spangler_G Attending Clinician Unavailable KHADAR CALHOUN Attending Clinician Unavailable DR KACEY GAYLE Attending Clinician Unavailable DR KHADAR CALHOUN Attending Clinician Unavailable DR ELAINE MCWILLIAMS Attending Clinician Unavailable GC_BAHC_Todd_Gume Admitting Clinician Unavailable LEROY MURRAY Admitting Clinician Unavailable Leroy Murray MD Admitting Clinician JEAN-CLAUDE COHEN Admitting Clinician Unavailable Jean-Claude Cohen MD Admitting Clinician RAKEL JOHNSON Admitting Clinician Unavailable MD ALMA WHITMAN Admitting Clinician Unavailable BOB Admitting Clinician Unavailable GC_BAHC_Spangler_G Admitting Clinician Unavailable KHADAR CALHOUN SIRAJ Admitting Clinician Unavailable NALINI, DR ERAZO Admitting Clinician Unavailable DR KHADAR CALHOUN Admitting Clinician Unavailable DR ELAINE MCWILLIAMS Admitting Clinician Unavailable Payers Payer Name Policy Type Policy Number Effective Date Expiration Date Karen aleln [facility] [id number] 2021 ADVANTAGE PLAN 00:00:00 [facility] [id number] 2019 COMMUNITY CARE [place] - 00:00:00 [facility] - [id number] 2021 COMMUNITY CARE - 00:00:00 STAR PLUS - [facility] CARE (MEDICAID HMO) Problems Condition Condition Condition Status Onset Resolution Last Treating Co mments Source Name Details Category Date Date Treatment Clinician Date GIB GIB Disease Active Univers (gastroint (gastroint 3-07 it y of estinal estinal 00:00: [place] bleeding) bleeding) 00 Medi ellyn Branch Hemothorax Hemothorax Disease Active U nivers on right on right 2-20 ity of 00:00: [place] 00 Medical Branch Lung Lung Disease Recurre Univers entrapment entrapment nce 2-20 it y of 00:00: [place] 00 Medical Branch History of History of Problem Active [facility] repair of Repair of 2-15 Medi ellyn thoracic Thoracic 00:00: aortic Aortic 00 aneurysm Aneurysm ESRD (end ESRD (end Disease Active Uni vers stage stage 2-09 ity of renal renal 00:00: [place] disease) disease) 00 Medica l Branch Hyperkalem Hyperkalem Disease Active U nivers ia ia 2-09 ity of 00:00: [place] 00 Medical Branch Bipolar I Bipolar I [...] Active P [facility] rysm of rysm of 7 Medical artery of Artery of 00:00: upper [...] Hyperphosp Problem Active [facility] hatemia hatemia 6- Medical 00:00: 00 Hypercoagu Hypercoagu Problem Active P [facility] lability lability 6- Medica l state State 00:00: 00 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 [place] via end stage End Stage 6- Medi ellyn renal Renal 00:00: disease Disease 00 Vitamin D Vitamin D Problem Active [place] via deficiency Deficiency - Me dical 00:00: 00 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 00:00: 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 Major 00:00: depression Depression 00 Aneurysm Aneurysm Problem Active [facility] a of artery of Artery -22 Medi ellyn of upper of Upper 00:00: extremity Extremity 00 Folic acid Folic Acid Problem Active [facility] deficiency Deficiency 5-17 Me dical 00:00: 00 Hyperkalem Hyperkalem Problem Active P [facility] ia ia 5 Medical 00:00: 00 Hypertensi Hypertensi Problem Active P [facility] ve heart ve Heart 07 Medica l and renal and Renal 00:00: disease Disease 00 with both with Both (congestiv (Congestiv e) heart e) Heart failure Failure and renal and Renal failure Failure Arterioven Arterioven Problem Active [facility] ous ous 07 Medical fistula Fistula 00:00: 00 Peripheral Peripheral [...] Problem Disease Active 2018-03 Methodi with with [address] dialysis dialysis 00:00: Hospit a access access 00 l AV fistula AV fistula Disease Active 2018-[address] occlusion occlusion 1-19 [facility] 00:00: Medical 00 Center AV fistula AV fistula Disease Active M ethodi occlusion occlusion 12-11 st 00:00: Hospita 00 l Pulmonary Pulmonary Disease Active Uni vers edema edema 1-21 ity of 00:00: [place] 00 Medical Branch Obesity Obesity Disease Active Univers (BMI (BMI 1-21 ity of 30-39.9) 30-39.9) 00:00: [place] 00 Medical Branch Respirator Respirator Disease Active U [...] right 1-03 ity of upper upper 00:00: [place] extremity extremity 00 [facility] ellyn Branch Swelling Swelling Disease Active Unive rs of right of right 1-02 ity of upper upper 00:00: [place] extremity extremity 00 [facility] ellyn Branch 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 Medical Group Allergies, Adverse Reactions, Alerts Allergy Allergy Status Severity Reaction(s) Onset Inactive Treating Comm ents Source Name Type Date Date Clinician NIFEDIPI DRUG Active Low Anxiety Univers NE INGREDI 3-03 ity of 00:00: [place] 00 [facility] Branch NIFEDIPI Allergy Active Low Anxiety [facility] Nifedipi Drug Active Anxiety Hot [facility] Allergy 3-03 flashes [facility] Nifedipi Allergy Active [facility] ne to 3-03 Medical substanc 00:00: e 00 NO KNOWN Drug Active Univers ALLERGIE Class ity of S [facility] Family History Family Member Diagnosis Comments Start Date Stop Date Source Natural father Heart [facility] Natural father Hypertension Universi ty of [facility] Natural father Unremarkable [facility] Natural mother Other - see comments [facility] Other Other - see comments Univ ersity of [facility] Natural sister Unremarkable [facility] Social History Social Habit Start Date Stop Date Quantity Comments Source History SDOH Social Unive rsity of Connections Get [place] [facility] ical Together Branch History SDOH Social Unive rsity of Connections Christianity [place] [facility] History SDOH Social Unive rsity of Connections [place] [facility] Membership Branch History SDOH Social Unive rsity of Connections [place] [facility] Meetings Branch History of tobacco Passive smoker Un iversity of use [facility] Exposure to 2022-05-26 2022-06-05 Not sure University of SARS-CoV-2 (event) 00:00:00 12:29:00 [place] [facility] History SDOH Social 2022-06-04 2022-06-04 5 Unive rsity of Connections Phone 00:00:00 00:00:00 [place] M edical Branch History SDOH Social 2022-06-04 2022-06-04 5 Unive rsity of Connections Living 00:00:00 00:00:00 [place] [facility] History SDOH 2022-06-04 2022-06-04 0 University o f Physical Activity 00:00:00 00:00:00 [place] M edical DPW Branch History SDOH 2022-06-04 2022-06-04 0 University o f Physical Activity 00:00:00 00:00:00 [place] M edical MPS Branch History SDOH 2022-06-04 2022-06-04 5 University o f Financial 00:00:00 00:00:00 [place] [facility] History SDOH Food 2022-06-04 2022-06-04 1 Univers ity of Worry 00:00:00 00:00:00 [place] [facility] History SDOH Food 2022-06-04 2022-06-04 1 Univers ity of Scarcity 00:00:00 00:00:00 [place] [facility] History SDOH 2022-06-04 2022-06-04 2 University o f Transport Med 00:00:00 00:00:00 [place] Medic al Branch History SDOH 2022-06-04 2022-06-04 2 University o f Transport Non-Med 00:00:00 00:00:00 [facility] Tobacco use and 2022-06-04 2022-06-04 Former smokeless Uni versity of exposure 00:00:00 00:00:00 tobacco user [facility] Education 2022-06-04 2022-06-04 14 University of 00:00:00 00:00:00 [facility] Tobacco Comment 2022-06-04 2022-06-04 8 cigarettes/day Uni versity of 00:00:00 00:00:00 for 30 years [facility] History [facility] 2022-05-10 2022-05-10 1 University o f Alcohol Frequency 00:00:00 00:00:00 [facility] History [facility] 2022-05-10 2022-05-10 0 University o f Alcohol Std Drinks 00:00:00 00:00:00 [facility] History SDOH 2022-05-10 2022-05-10 1 University o f Alcohol Binge 00:00:00 00:00:00 [facility] Alcohol intake 2021-12-18 2021-12-18 Ex-drinker Judaism 00:00:00 00:00:00 (finding) Hospital Sex Ass[birth year] At [birth year] Judaism 00:00:00 00:00:00 Hospital Smoking Status Start Date Stop Date Source Heavy Tobacco Smoker Jimmy ragland Smokes tobacco daily 2022-06-04 00:00:00 [facility] of [facility] Medications Ordered Filled Start Stop Current Ordering Indication Dosage Frequency Signature Comments Components Source Medication Medication Date Date Medication? Clinician (SIG) Name Name multivitami Yes 1{capsu Take 1 U nivers n capsule 3-10 le} capsule by ity of 00:05: mouth [place] 33 daily. [facility] multivitami Yes 1{capsu Take 1 U nivers n capsule 3-10 le} capsule by ity of 00:05: mouth [place] 33 daily. [facility] omeprazole Yes 40mg 40 mg, Unive rs (PRILOSEC) 3-09 Oral, BID, ity of capsule 40 14:00: First dose [place] mg 00 on [facility] 06/06/22 at Branch 0800, Until Discontinu ed, Routine omeprazole 2023-0 Yes 40mg 40 mg, Unive rs (PRILOSEC) 3-09 Oral, BID, ity of capsule 40 14:00: First dose [place] mg 00 on [facility] 06/06/22 at Branch 0800, Until Discontinu ed, Routine magnesium 2022-0 2022- No 4g 4 g, IV Univ ers sulfate in 06-06- Piggyback, it y of water 4 13:45: 17:49 at 25 [place] gram/50 mL 00 :00 mL/hr Medical (8 %) IV Administer Branc h Piggyback 4 over 120 g Minutes, ONCE, 1 dose, On [facility] 06/06/22 at 0745, Routine gabapentin 3-0 Yes [id number] 200mg Take 2 Univers 100 mg 3-09 capsules ity of capsule 00:00: by mouth [place] 00 in the Medical morning Branch and 2 capsules at noon and 2 capsules in the evening. omeprazole 2023-0 Yes 40mg Take 1 Unive rs 40 mg 3-09 capsule by ity of capsule 00:00: mouth in [place] [address] the [facility] morning [place] and 1 capsule in the evening. gabapentin 2023-0 Yes [id number] 200mg Take 2 Univers 100 mg 3-09 capsules ity of capsule 00:00: by mouth [place] 00 in the Medical morning Branch and 2 capsules at noon and 2 capsules in the evening. omeprazole 2023-0 Yes 40mg Take 1 Unive rs 40 mg 3-09 capsule by ity of capsule 00:00: mouth in [place] [address] the [facility] morning [place] and 1 capsule in the evening. epoetin 2022-0 202- No 8000U 8,000 Univers himanshu-epbx 06-05 03-08 Units, ity of (RETACRIT) 14:15: 17:09 Intravenou [place] injection 00 :00 s, Medical 8,000 Units DIALYSIS Bran ch ONCE - CARON DSU, 1 dose, On Fri06/05/22 at 0815, Routine
member certification manager approving Restricted medication : DEVORA NAVA heparin 2022-0 Yes 2000U PRN - SEE Univ ers 1,000 3-08 INSTRUCTIO ity of unit/mL (10 14:09: NS, [place] mL) - 40 Starting Medical dialysis on Fri Branch catheter 06/05/22 at care 0809, Until Discontinu ed, Routine
For Priming of Ports:&nbs p; &n bsp; After initial saline flush, prime each port with heparin according to the priming volume listed on each catheter port for catheter lock.
heparin Yes 2000U PRN - SEE Univ ers 1,000 3-08 INSTRUCTIO ity of unit/mL (10 14:09: NS, [place] mL) - 40 Starting Medical dialysis on Fri [place] catheter 06/05/22 at care 0809, Until Discontinu ed, Routine
For Priming of Ports:&nbs p; &n bsp; After initial saline flush, prime each port with heparin according to the priming volume listed on each catheter port for catheter lock.
carvediloL Yes 25mg 25 mg, Unive rs (COREG) 3-08 Oral, BID ity of tablet 25 14:00: MEALS, [place] mg 00 First dose Medical on Fri [place] 06/05/22 at 0800, Until Discontinu ed, Routine carvediloL 0 Yes 25mg 25 mg, Unive rs (COREG) 3-08 Oral, BID ity of tablet 25 14:00: MEALS, [place] mg 00 First dose Medical on Fri [place] 06/05/22 at 0800, Until Discontinu ed, Routine hydrOXYzine 2022- No 25mg 25 mg, Uni vers (ATARAX) 3 03-08 Oral, ity of tablet 25 03:15: 02:55 ONCE, 1 [place] mg 00 :00 dose, On Medical [facility] 06/04/22 Branch at 2115, Routine atorvastati 0 Yes 40mg 40 mg, Univ ers n (LIPITOR) 3-08 Oral, QHS, it y of tablet 40 03:00: First dose [place] mg 00 on [facility] 06/04/22 at Branch 2100, Until Discontinu ed, Routine atorvastati 0 Yes 40mg 40 mg, Univ ers n (LIPITOR) 3-08 Oral, QHS, it y of tablet 40 03:00: First dose [place] mg 00 on [facility] 06/04/22 at Branch 2100, Until Discontinu ed, Routine pantoprazol 2022- No 40mg 40 mg, Uni vers e 06-05 03-09 Slow IV ity of (PROTONIX) 02:00: 06:25 Push, [place] injection 00 :41 Q12H, Medical 40 mg First dose Branch on [facility] 06/04/22 at 2000, Until Discontinu ed sevelamer 2023-0 Yes 800mg 800 mg, Univ ers (RENVELA) 3-07 Oral, TID ity o f tablet 800 23:00: MEALS, [place] mg 00 First dose Medical on [facility] 06/04/22 at 1700, Until Discontinu ed, Routine sevelamer 2023-0 Yes 800mg 800 mg, Univ ers (RENVELA) 3-07 Oral, TID ity o f tablet 800 23:00: MEALS, [place] mg 00 First dose Medical on [facility] 06/04/22 at 1700, Until Discontinu ed, Routine isosorbide 2023-0 Yes 30mg 30 mg, Unive rs mononitrate 3-07 Oral, ity of (IMDUR) 24 15:00: DAILY, [place] hr tablet 00 First dose Medi ellyn 30 mg on [facility] 06/04/22 at 0900, Until Discontinu ed, Routine isosorbide 2023-0 Yes 30mg 30 mg, Unive rs mononitrate 3-07 Oral, ity of (IMDUR) 24 15:00: DAILY, [place] hr tablet 00 First dose Medi ellyn 30 mg on [facility] 06/04/22 at 0900, Until Discontinu ed, Routine hydrALAZINE 2023-0 Yes 10mg 10 mg, Univ ers (APRESOLINE 3-07 Oral, Q8H, it y of ) tablet 10 13:45: First dose [place] mg 00 on [facility] 06/04/22 at Branch 0745, Until Discontinu ed, Routine hydrALAZINE 2023-0 Yes 10mg 10 mg, Univ ers (APRESOLINE 3-07 Oral, Q8H, it y of ) tablet 10 13:45: First dose [place] mg 00 on [facility] 06/04/22 at Branch 0745, Until Discontinu ed, Routine morpHINE (2 2022-0 2023- No 2mg 2 mg, Slow Univers mg/mL) 06-04 03-07 IV Push, ity of injection 2 11:00: 10:18 ONCE, 1 [place] mg 00 :00 dose, On Medical e 06/04/22 Branch at 0500, Routine acetaminoph Yes 650mg 650 mg, Un irma en 3-07 Oral, ity of (TYLENOL) 07:57: Q6HPRN, [place] tablet 650 43 Starting Medic al mg on Fri Branch 06/04/22 at 0157, Until Discontinu ed, Routine, Pain (scale 1-3) acetaminoph Yes 650mg 650 mg, Un irma en 3-07 Oral, ity of (TYLENOL) 07:57: Q6HPRN, [place] tablet 650 43 Starting Medic al mg on Fri Branch 06/04/22 at 0157, Until Discontinu ed, Routine, Pain (scale 1-3) multivitami Yes 1{capsu Take 1 U nivers n capsule 3-07 le} capsule by ity of 01:18: mouth [place] 57 daily. Medical Branch multivitami Yes 1{capsu Take 1 U nivers n capsule 2-28 le} capsule by ity of 12:12: mouth [place] 25 daily. Medical Branch multivitami Yes 1{capsu Take 1 U nivers n capsule 2-28 le} capsule by ity of 12:12: mouth [place] 25 daily. Medical Branch acetaminoph 2022- Yes [id number] 650mg Take 2 Univers en 325 mg 2-28 03-15 tablets by ity of tablet 00:00: 04:59 mouth [place] 00 :00 every 6 Medical (six) Branch hours for 14 days. polyethylen 2022- Yes [id number] 17g Take 1 Univers e glycol 2-28 03-15 Packet by ity o f 3350 17 00:00: 04:59 mouth in [place] gram powder 00 :00 the Medical morning Branch for 14 days. acetaminoph 2022- Yes [id number] 650mg Take 2 Univers en 325 mg 2-28 03-15 tablets by ity of tablet 00:00: 04:59 mouth [place] 00 :00 every 6 Medical (six) Branch hours for 14 days. polyethylen 2022- Yes [id number] 17g Take 1 Univers e glycol 2-28 03-15 Packet by ity o f 3350 17 00:00: 04:59 mouth in [place] gram powder 00 :00 the Medical morning Branch for 14 days. acetaminoph 2022- Yes [id number] 650mg Take 2 Univers en 325 mg 2-25 06-15 tablets by ity of tablet 00:00: 04:59 mouth [place] 00 :00 every 6 Medical (six) Branch hours for 14 days. polyethylen 2022- Yes [id number] 17g Take 1 Univers e glycol -25 06-15 Packet by ity o f 3350 17 00:00: 04:59 mouth in [place] gram powder 00 :00 the Medical morning Branch for 14 days. polyethylen 2022- Yes [id number] 17g Take 1 Univers e glycol -25 06-15 Packet by ity o f 3350 17 00:00: 04:59 mouth in [place] gram powder 00 :00 the Medical morning Branch for 14 days. polyethylen 2022- Yes [id number] 17g Take 1 Univers e glycol -25 06-15 Packet by ity o f 3350 17 00:00: 04:59 mouth in [place] gram powder 00 :00 the Medical morning Branch for 14 days. acetaminoph 2022- No [id number] 650mg Take 2 Univers en 325 mg 2-25 06-09 tablets by ity of tablet 00:00: 00:00 mouth [place] 00 :00 every 6 Medical (six) Branch hours for 14 days. gabapentin 2022-2022- No [id number] 200mg Take 2 Univers 100 mg 2-25 06-09 capsules ity of capsule 00:00: 00:00 by mouth [place] 00 :00 in the Medical morning Branch and 2 capsules at noon and 2 capsules in the evening. Do all this for 7 days. acetaminoph 2022- No [id number] 650mg Take 2 Univers en 325 mg 2-25 06-09 tablets by ity of tablet 00:00: 00:00 mouth [place] 00 :00 every 6 Medical (six) Branch hours as needed (pain) for up to 7 days. gabapentin 2022-2022- Yes [id number] 200mg Take 2 Univers 100 mg 2-28 -08 capsules ity of capsule 00:00: 05:59 by mouth [place] 00 :00 in the Medical morning Branch and 2 capsules at noon and 2 capsules in the evening. Do all this for 7 days. acetaminoph 2022- Yes [id number] 650mg Take 2 Univers en 325 mg 2-28 03-08 tablets by ity of tablet 00:00: 05:59 mouth [place] 00 :00 every 6 Medical (six) Branch hours as needed (pain) for up to 7 days. gabapentin 2022- Yes [id number] 200mg Take 2 Univers 100 mg 2-28 03-08 capsules ity of capsule 00:00: 05:59 by mouth [place] 00 :00 in the Medical morning Branch and 2 capsules at noon and 2 capsules in the evening. Do all this for 7 days. acetaminoph 2022- Yes [id number] 650mg Take 2 Univers en 325 mg 2- 03-08 tablets by ity of tablet 00:00: 05:59 mouth [place] 00 :00 every 6 Medical (six) Branch hours as needed (pain) for up to 7 days. gabapentin 2022- No [id number] 200mg Take 2 Univers 100 mg 2-28 03-08 capsules ity of capsule 00:00: 05:59 by mouth [place] 00 :00 in the Medical morning Branch and 2 capsules at noon and 2 capsules in the evening. Do all this for 7 days. acetaminoph 2022- No [id number] 650mg Take 2 Univers en 325 mg 2- 03-08 tablets by ity of tablet 00:00: 05:59 mouth [place] 00 :00 every 6 Medical (six) Branch hours as needed (pain) for up to 7 days. heparin Yes 2000U PRN - SEE Univ ers 1,000 2-27 INSTRUCTIO ity of unit/mL (10 20:25: NS, [place] mL) - 35 Starting Medical dialysis on [facility] catheter 05/27/22 at care 1425, Until Discontinu ed, Routine
For Priming of Ports:&nbs p; &n bsp; After initial saline flush, prime each port with heparin according to the priming volume listed on each catheter port for catheter lock.
glycerin/mi 2022- No 225mL 225 mL, U nivers neral oil 2-26 02-26 Rectal, ity of (AGLO 02:00: 02:44 ONCE, 1 [place] ENEMA) 00 :00 dose, On Medical ([facility] ) Enem 225 05/25/22 at mL 2000, Routine heparin No 2000U 2,000 Univers 1,000 - 02-25 Units, ity of unit/mL 23:00: 22:05 Slow IV [place] injection 00 :00 Push, Medical 2,000 Units ONCE, 1 Branc h dose, On 05/25/22 at 1700, Routine NaCl 0.9% 2022- No 500mL at 999 Univ ers (NS) bolus 05-25 02-26 mL/hr, 500 it y of infusion 22:45: 01:33 mL, IV [place] 500 mL 00 :00 Piggyback, Medical ONCE, 1 Branch dose, On [facility] 05/25/22 at 1645, STAT polyethylen Yes 17g 17 g, Unive rs e glycol 05-25 Oral, ity of 3350 powder 22:00: DAILY, [place] 17 g 00 First dose Medical on [facility] 05/25/22 at 1600, Until Discontinu ed, Routine bisacodyL Yes 10mg 10 mg, Univer s (DULCOLAX) 05-25 Rectal, ity of suppository 21:52: QHSPRN, [place] as 10 mg 41 Starting Medical on [facility] 05/25/22 at 1552, Until Discontinu ed, Routine, Constipati on insulin Yes 2U 2 Units, Univer s lispro 25 Subcutaneo ity of (human) 14:42: us, PRN - [place] (HumaLOG 01 SEE Medical U-100) INSTRUCTIO Branch injection 2 NS, 1 Units dose, Starting on 05/25/22 at 0842, Until Discontinu ed, Routine, For blood glucose > 300 mg/dL dextrose Yes 125mL 125 mL, Unive rs 10% (D10W) 2-25 Intravenou ity of bolus 14:42: s, PRN [...] - Sprite or cranberry juice.
NaCl 0.9% 2022-0 202- No 5mL 5 mL, Slow U nivers (NS) 2-25 02-25 IV Push, ity of injection 5 14:15: 14:15 ONCE, 1 [place] mL 00 :00 dose, On Medical Sat Branch 05/25/22 at 0815, Routine heparin 2022-0 Yes 2000U PRN - SEE Univ ers 1,000 2-25 INSTRUCTIO ity of unit/mL (10 14:08: NS, [place] mL) - 36 Starting Medical dialysis on [facility] Branch catheter 05/25/22 at care [...] mEq/L with our without EKG changes glucagon Yes 1mg 1 mg, Univers (GLUCAGEN 2-25 Intramuscu ity of DIAGNOSTIC 12:41: lar, PRN, [place] KIT) 32 Starting Medical injection 1 on Sat Branch mg 05/25/22 at 0641, Until Discontinu ed, PHIL, Blood Glucose < or = 70 mg/dL and patient is NPO, unable to swallow or has mental changes. dextrose 50 2022-0 Yes 25mL 25 mL, Univ ers % in water 2-25 Slow IV ity of (D50W) 12:41: Push, PRN, [place] injection 32 Starting Medica l 25 mL on Sat Branch 05/25/22 at 0641, Until Discontinu ed, PHIL, Blood Glucose < or = 70 mg/dL and patient is NPO, unable to swallow or has mental status changes. docusate 3-0 Yes 100mg 100 mg, Unive rs (COLACE) 2-25 Oral, TID, ity o f capsule 100 02:00: First dose [place] mg 00 (after Medical last Branch modificati on) on Fri05/24/22 at 2000, Until Discontinu ed, Routine mineral oil 2023-0 202- No 30mL 30 mL, Uni vers (MINERAL 24 02-24 Oral, ity of OIL EXTRA 22:45: 23:52 ONCE, 1 [place] HEAVY) oral 00 :00 dose, On Medi ellyn liquid 30 05/24/22 at 1645, Routine metoclopram 2022-0 Yes 10mg 10 mg, Univ ers merle HCl 24 Slow IV ity of (REGLAN) 22:15: Push, Q6H, [place] injection 00 First dose Medi ellyn 10 mg (after Branch last modificati on) on Fri05/24/22 at 1615, Until Discontinu ed, Routine acetaminoph 2022-0 Yes 650mg 650 mg, Un rima en 2-23 Oral, Q6H, ity of (TYLENOL) 18:00: First dose [place] tablet 650 00 on [facility] mg 05/23/22 at Branch 1200, Until Discontinu ed, Routine acetaminoph 2022-0 Yes 650mg 650 mg, Un irma en 2-23 Oral, Q6H, ity of (TYLENOL) 18:00: First dose [place] tablet 650 00 on [facility] mg 05/23/22 at Branch 1200, Until Discontinu ed, Routine acetaminoph 3-0 Yes 650mg 650 mg, Un irma en 2-23 Oral, Q6H, ity of (TYLENOL) 18:00: First dose [place] tablet 650 00 on [facility] mg 05/23/22 at Branch 1200, Until Discontinu ed, Routine sennosides 2022-0 Yes 8.6mg 8.6 mg, Uni vers (SENOKOT) 2-23 Oral, ity of tablet 8.6 15:00: DAILY, [place] mg 00 First dose Medical on [facility] 05/23/22 at 0900, Until Discontinu ed, Routine sennosides 2022-0 Yes 8.6mg 8.6 mg, Uni vers (SENOKOT) 05-23 Oral, ity of tablet 8.6 15:00: DAILY, [place] mg 00 First dose Medical on [facility] 05/23/22 at 0900, Until Discontinu ed, Routine sennosides 2022-0 Yes 8.6mg 8.6 mg, Uni vers (SENOKOT) 05-23 Oral, ity of tablet 8.6 15:00: DAILY, [place] mg 00 First dose Medical on [facility] 05/23/22 at 0900, Until Discontinu ed, Routine levalbutero 2022-0 Yes .31mg 0.31 mg, U nivers l (XOPENEX) 05-23 Inhalation it y of nebulizer 14:00: , TID, [place] solution 00 First dose Medic al 0.31 mg on [facility] 05/23/22 at 0800, Until Discontinu ed, Routine levalbutero 2022-0 Yes .31mg 0.31 mg, U nivers l (XOPENEX) 05-23 Inhalation it y of nebulizer 14:00: , TID, [place] solution First dose Medic al 0.31 mg on [facility] 05/23/22 at 0800, Until Discontinu ed, Routine levalbutero 2022-0 Yes .31mg 0.31 mg, U nivers l (XOPENEX) 05-23 Inhalation it y of nebulizer 14:00: , TID, [place] solution First dose Medic al 0.31 mg on [facility] 05/23/22 at 0800, Until Discontinu ed, Routine NaCl 0.9% 0 2022- No 5mL 5 mL, Slow U nivers (NS) 05-23 IV Push, ity of injection 5 14:00: 14:00 ONCE, 1 [place] mL 00 :00 dose, On Medical [facility] 05/23/22 at 0800, Routine heparin 2022-0 Yes 2000U PRN - SEE Univ ers 1,000 05-23 INSTRUCTIO ity of unit/mL (10 13:45: NS, [place] mL) - 08 Starting Medical dialysis on [facility] catheter 05/23/22 at [facility] 0745, Until Discontinu ed, Routine
For Priming of Ports:&nbs p; &n bsp; After initial saline flush, prime each port with heparin according to the priming volume listed on each catheter port for catheter lock.
heparin Yes 2000U PRN - SEE Univ ers 1,000 2-23 INSTRUCTIO ity of unit/mL (10 13:45: NS, [place] mL) - Starting Medical dialysis on [facility] catheter 05/23/22 at care 0745, Until Discontinu ed, Routine
For Priming of Ports:&nbs p; &n bsp; After initial saline flush, prime each port with heparin according to the priming volume listed on each catheter port for catheter lock.
heparin Yes 1999U PRN - SEE Univ ers 1,000 2- INSTRUCTIO ity of unit/mL (10 13:45: NS, [place] mL) - Starting Medical dialysis on [place] [facility] catheter 05/23/22 at care 0745, Until Discontinu ed, Routine
For Priming of Ports:&nbs p; &n bsp; After initial saline flush, prime each port with heparin according to the priming volume listed on each catheter port for catheter lock.
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
Lock Medi [place]lyn injection out Branch Interval: 6 Minutes
Basal Rate: 0 mg/hr<BR&g t;Four Hour Dose Limit: 32 mg
Intr avenous, 30 mL, CONTINUOUS , Starting on [facility] 05/23/22 at 0715, Until Discontinu ed morpHINE Yes Patient Uni vers mg/30 mL 2-23 Bolus ity of (fixed 13:15: Dose: 1.5 [place] dose) INTERPRETIVE NATURALIST 00 mg
Lock Medi ellyn injection out Branch Interval: 6 Minutes
Basal Rate: 0 mg/hr<BR&g t;Four Hour Dose Limit: 32 mg
Intr avenous, 30 mL, CONTINUOUS , Starting on [facility] 05/23/22 at 0715, Until Discontinu ed morpHINE 30 2023-0 2023- No Patient Un irma mg/30 mL 05-23 Bolus ity of (fixed 13:15: 13:33 Dose: 1.5 [place] dose) INTERPRETIVE NATURALIST 00 :11 mg
Lock Medi ellyn injection [...] Summary: 100 mg, Oral, Q6HPRN, Starting on [facility] 05/23/22 [...] Summary: 100 mg, Oral, Q6HPRN, Starting on [facility] 05/23/22 [...] Pain (scale 7-10) [Order 2 End] acetaminoph 2023-0 202- No 1000mg 1,000 mg, Univers en ADULT 05-23 IV ity of (OFIRMEV) 04:00: 13:06 [place]fusion, [place] injection 00 :[address] [place] [address] 1,000 mg mL/hr [place] Administer over 15 Minutes, Q8H, 3 doses, First dose on Fri05/22/22 at 2200, Last dose on Fri05/23/22 at 1400, Routine
Indicatio n: Perioperat vivien Patient gabapentin 3-0 Yes 200mg 200 mg, Uni vers (NEURONTIN) 2-23 Oral, TID, it y of capsule 200 02:00: First dose [place] mg 00 on Fri05/22/22 at Branch 2000, Until Discontinu ed, Routine gabapentin 2023-0 Yes 200mg 200 mg, Uni vers (NEURONTIN) 2-23 Oral, TID, it y of capsule 200 02:00: First dose [place] mg 00 on Fri [facility] 05/22/22 at Branch 2000, Until Discontinu ed, Routine gabapentin 2023-0 Yes 200mg 200 mg, Uni vers (NEURONTIN) -23 Oral, TID, it y of capsule 200 02:00: First dose [place] mg 00 on Fri05/22/22 at Branch 2000, Until Discontinu ed, Routine methocarbam 2023-0 [...] 00 on Fri Medical mg 05/22/22 at [place] 1600, Until Discontinu ed, Routine lidocaine 2022- No 1{patch 1 Patch, Univers (LIDODERM) 05-22 } Topical, ity of 5 % (700 21:00: 09:28 Administer [place] mg/patch) 00 :00 over 12 Medical patch 1 Hours, Branch Patch ONCE, 1 dose, On Fri05/22/22 at 1500, Routine naloxone 2022-0 Yes .1mg 0.1 mg, Univer s (NARCAN) 2- Slow IV ity of injection 20:00: Push, [place] 0.1 mg 05 [facility], Branch Starting on Fri05/22/22 at 1400, Until Discontinu ed, Routine naloxone 0 Yes .1mg 0.1 mg, Univer s (NARCAN) - Slow IV ity of injection 20:00: Push, [place] 0.1 mg 05 [facility], Branch Starting on Fri05/22/22 at 1400, Until Discontinu ed, Routine naloxone 0 Yes .1mg 0.1 mg, Univer s (NARCAN) - Slow IV ity of injection 20:00: Push, [place] 0.1 mg 05 [facility], Branch Starting on Fri05/22/22 at 1400, Until Discontinu ed, Routine lactated 2022- No 1000mL at 75 Unive rs ringers IV 05-22 mL/hr, ity of infusion 20:00: 23:02 1,000 mL, [place] as 1,000 mL 00 :50 IV Medical Infusion, Branch CONTINUOUS , Starting on Fri05/22/22 at 1400, Until Fri05/22/22 at 1702, Routine, PACU bupivacaine 0 2022- No PRN, Unive rs (preserv 05-22 Starting ity of free) 17:16: 19:46 on Fri [place] (SENSORCAIN 00 :18 05/22/22 at [facility]) 0.25 1116, Branch % (2.5 Intra-op mg/mL) 20 mL, bupivacaine liposome (PF) (EXPAREL (PF)) 1.3 % (13.3 mg/mL) 266 mg bupivacaine 2022- No PRN, Unive rs (preserv 05-22 Starting ity of free) 17:16: 19:46 on Fri (SENSORCAIN 00 :18 05/22/22 at [facility]) 0.25 1116, Branch % (2.5 Intra-op mg/mL) 20 mL, bupivacaine liposome (PF) (EXPAREL (PF)) 1.3 % (13.3 mg/mL) 266 mg HYDROcodone 0 2022- No 1{tbl} 1 tablet, Univers -acetaminop 05-21 Oral, ity of hen (NORCO 16:30: 23:02 Q6HPRN, [place] as 5) 5-325 mg 17 :50 Starting Medi ellyn tablet 1 on [facility] tablet 05/21/22 at 1030, Until Fri05/22/22 at 1702, Routine, Pain (scale 4-6), Pain (scale 7-10) NaCl 0.9% 2022- No 5mL 5 mL, Slow U nivers (NS) 05-21 IV Push, ity of injection 5 13:15: 13:15 ONCE, 1 [place] mL 00 :00 dose, On Medical [facility] 05/21/22 at 0715, Routine heparin Yes 2000U PRN - SEE Univ ers 1,000 - INSTRUCTIO ity of unit/mL ( 13:09: NS, [place] mL) - Starting Medical dialysis on [facility] catheter 05/21/22 at care 0709, Until Discontinu ed, Routine
For Priming of Ports:&nbs p; &n bsp; After initial saline flush, prime each port with heparin according to the priming volume listed on each catheter port for catheter lock.
heparin 0 Yes 2000U PRN - SEE Univ ers 1,000 05-21 INSTRUCTIO ity of unit/mL ( 13:09: NS, [place] mL) - Starting Medical dialysis on [facility] catheter 05/21/22 at care 0709, Until Discontinu ed, Routine
For Priming of Ports:&nbs p; &n bsp; After initial saline flush, prime each port with heparin according to the priming volume listed on each catheter port for catheter lock.
heparin Yes 2000U PRN - SEE Univ ers 1,000 05-21 INSTRUCTIO ity of unit/mL (10 13:09: NS, [place] mL) - 04 Starting Medical dialysis on [facility] catheter 05/21/22 at care 0709, Until Discontinu [...] s mg 32 :50 Starting Medical on Fri [place] 05/20/22 at 2101, Until 05/22/22 at 1702, Routine, Pain (scale 4-6), Pain (scale 7-10) iopamidol 2022- No [id number] 70mL 70 mL, Univers (ISOVUE 05-20 02-20 Intravenou ity o f 370-500 mL) 17:45: 17:25 s, ONCE, 1 [place] injection 00 :00 dose, On Medica l 70 mL [facility] 05/20/22 at 1145, Routine lactated 2022- No 250mL at 999 Unive rs ringers IV 05-20 02-20 mL/hr, 250 it y of infusion 07:15: 11:23 mL, [place] 250 mL 00 :00 Intravenou Medical s, ONCE, 1 [place] dose, On [facility] 05/20/22 at 0115, Routine midodrine Yes 2.5mg 2.5 mg, Univ ers (PROAMATINE 2-20 Oral, TID, it y of ) tablet 05:45: First dose [place] 2.5 mg 00 on [facility] 05/19/22 at Branch 2345, Until Discontinu ed, Routine midodrine 0 Yes 2.5mg 2.5 mg, Univ ers (PROAMATINE 2-20 Oral, TID, it y of ) tablet 05:45: First dose [place] 2.5 mg 00 on [facility] 05/19/22 at Branch 2345, Until Discontinu ed, Routine midodrine 0 Yes 2.5mg 2.5 mg, Univ ers (PROAMATINE 2-20 Oral, TID, it y of ) tablet 05:45: First dose [place] 2.5 mg 00 on [facility] 05/19/22 at Branch 2345, Until Discontinu ed, Routine NaCl 0.9% 2022- No 250mL at 999 Univ ers (NS) bolus 05-20 02-20 mL/hr, 250 it y of infusion 01:45: 03:42 mL, IV [place] 250 mL 00 :00 Piggyback, Medical ONCE, 1 Branch dose, On [facility] 05/19/22 at 1945, STAT traMADoL 2022- No 25mg 25 mg, Univer s (ULTRAM) 05-19- Oral, ity of tablet 25 22:00: 21:58 ONCE, 1 [place] mg 00 :00 dose, On [facility] 05/19/22 at 1600, Routine lidocaine 2022- No 1{patch 1 Patch, Univers (LIDODERM) 05-19 } Topical, ity of 5 % (700 20:30: 08:05 Administer [place] mg/patch) 00 :00 over 12 Medical patch 1 Hours, Branch Patch ONCE, 1 dose, On Central 05/19/22 at 1430, Routine heparin 2022-0 Yes 5000U 5,000 Univers (porcine) 2-19 Units, ity of injection 02:00: Subcutaneo [place] 5,000 Units 00 us, Q12H, Med ical First dose Branch on [facility] 05/18/22 at 2000, Until Discontinu ed, Routine heparin 2022-0 Yes 5000U 5,000 Univers (porcine) 2-19 Units, ity of injection 02:00: Subcutaneo [place] 5,000 Units 00 us, Q12H, Med ical First dose Branch on [facility] 05/18/22 at 2000, Until Discontinu ed, Routine heparin Yes 5000U 5,000 Univers (porcine) 05-19 Units, ity of injection 02:00: Subcutaneo [place] 5,000 Units 00 us, Q12H, Med ical First dose Branch on 05/18/22 at 2000, Until Discontinu ed, Routine NaCl 0.9% 2022- No 5mL 5 mL, Slow U nivers (NS) 05-18 IV Push, ity of injection 5 21:45: 01:02 ONCE, 1 [place] mL 00 :00 dose, On Medical Sat Branch 05/18/22 at 1545, Routine heparin 2022- No 2000U PRN - SEE Uni vers 1,000 05-18 INSTRUCTIO ity of unit/mL (10 21:30: 13:14 NS, [place] mL) - 47 :47 Starting Medical dialysis on [facility] Branch catheter 05/18/22 at care [...] mg 00 :02 First dose Medical (after Branch last modificati on) on Fri05/18/22 at 0815, Until Discontinu ed, Routine sevelamer 0 Yes 1600mg 1,600 mg, U nivers (RENVELA) 2-17 Oral, TID ity o f tablet 14:00: MEALS, [place] 1,600 mg 00 First dose Medic al (after Branch last modificati on) on Fri05/17/22 at 0800, Until Discontinu ed sevelamer 2022-0 Yes 1600mg 1,600 mg, U nivers (RENVELA) 2-17 Oral, TID ity o f tablet 14:00: MEALS, [place] 1,600 mg 00 First dose Medic al (after Branch last modificati on) on Fri05/17/22 at 0800, Until Discontinu ed sevelamer Yes 1600mg 1,600 mg, U nivers (RENVELA) 05-17 Oral, TID ity o f tablet 14:00: MEALS, [place] 1,600 mg 00 First dose Medic al (after Branch last modificati on) on Fri05/17/22 at 0800, Until Discontinu ed amLODIPine 2022- No 5mg 5 mg, Unive rs (NORVASC) 05-17 Oral, Q24H ity of tablet 5 mg 12:00: 17:54 ABX, First [place] 00 :02 dose Medical (after Branch last modificati on) on Fri05/17/22 at 0600, Until Discontinu ed, Routine NaCl 0.9% 2022- No 5mL 5 mL, Slow U nivers (NS) 05-16 IV Push, ity of injection 5 21:45: 21:45 ONCE, 1 [place] mL 00 :00 dose, On Medical [facility] 05/16/22 at 1545, Routine heparin 2022- No 2000U PRN - SEE Uni vers 1,000 05-16 INSTRUCTIO ity of unit/mL (10 21:34: 13:14 NS, [place] mL) - 41 :47 Starting Medical dialysis on [facility] catheter 05/16/22 at care 1534, Until 05/21/22 at 0714, Routine
For Priming of Ports:&nbs p; &n bsp; After initial saline flush, prime each port with heparin according to the priming volume listed on each catheter port for catheter lock.
iopamidol 2022- No [id number] 100mL 100 mL, Univers (ISOVUE 05-16 Intravenou ity o f 370-500 mL) 15:52: 15:52 s, ONCE, 1 [place] injection 00 :00 dose, On Medica l 100 mL [facility] 05/16/22 at 1015, Routine iopamidol 2022- No [id number] 100mL 100 mL, Univers (ISOVUE 05-16 Intravenou ity o f 300-500 mL) 01:00: 01:00 s, ONCE, 1 [place] injection 00 :00 dose, On Medica l 100 mL Fri Branch 05/15/22 at 1900, Routine lidocaine 2022- [...] Fri Medical 05/15/22 at Branch 1639, Until [facility] 05/15/22 at 1724, Routine morpHINE (4 2022- No 4mg 4 mg, Slow Univers mg/mL) 05-14 IV Push, ity of injection 4 21:02: 23:14 Q6HPRN, [place] mg 13 :17 Starting Medical on [facility] 05/14/22 at 1502, Until Central 05/19/22 at 1714, Routine, Pain (scale 7-10) alteplase 2022- No [id number] 4mg 4 mg, U nivers (CATHFLO 05-14 INTRA-CATH ity of ACTIVASE) 16:45: 17:15 ETER, [place] injection 4 00 :00 ONCE, 1 Medic al mg dose, On [facility] 05/14/22 at 1045, Routine heparin 2022- No 2000U PRN - SEE Uni vers 1,000 05-14 INSTRUCTIO ity of unit/mL (10 14:21: 13:14 NS, [place] mL) - 00 :47 Starting Medical dialysis on [facility] catheter 05/14/22 at care 0821, Until [facility] 05/21/22 at 0714, Routine
For Priming of Ports:&nbs p; &n bsp; After initial saline flush, prime each port with heparin according to the priming volume listed on each catheter port for catheter lock.
lidocaine 2022- No 30mL 30 mL, Unive rs 1% (PF) 05-13 Subcutaneo ity o f (XYLOCAINE) 14:45: 14:45 us, ONCE, [place] injection 00 :00 1 dose, On Medi ellyn 30 mL Mon Branch 05/13/22 at 0845, Routine iopamidol 2022- No [id number] 70mL 70 mL, Univers (ISOVUE 05-12 4100 Intravenou ity o f 370-500 mL) 15:25: 14:25 s, ONCE, 1 [place] injection 00 :00 dose, On Medica l 70 mL [facility] 05/12/22 at 0945, Routine HYDROcodone 2022- No 1{tbl} 1 tablet, Univers -acetaminop 05-11 Oral, ity of hen (NORCO) 23:40: 00:56 Q4HPRN, [place] 10-325 mg 13 :30 Starting Medica l tablet 1 on [facility] Branch tablet 05/11/22 at 1740, [...] - 06 :47 Starting Medical dialysis on Sat Branch catheter 05/11/22 at care 1347, Until 05/21/22 [...] Medical (after Branch last modificati on) on [facility] 05/11/22 at 1215, Until Discontinu ed, Routine lisinopriL No 5mg 5 mg, Unive rs (PRINIVIL,Z 05-11-16 Oral, ity of ESTRIL) 15:00: 13:54 DAILY, [place] tablet 5 mg 00 :22 First dose Me dical on [facility] Branch 05/11/22 at 0900, Until Discontinu ed, Routine atorvastati Yes 40mg 40 mg, Univ ers n (LIPITOR) 2-11 Enteral, ity of tablet 40 03:00: QHS, First [place] mg 00 dose on Medical Fri Branch 05/10/22 at 2100, Until Discontinu ed, Routine atorvastati 0 Yes 40mg 40 mg, Univ ers n (LIPITOR) 2-11 Enteral, ity of tablet 40 03:00: QHS, First [place] mg 00 dose on Medical Fri Branch 05/10/22 at 2100, Until Discontinu ed, Routine atorvastati 0 Yes 40mg 40 mg, Univ ers n (LIPITOR) 2-11 Enteral, ity of tablet 40 03:00: QHS, First [place] mg 00 dose on Medical Fri Branch 05/10/22 at 2100, Until Discontinu ed, Routine acetaminoph 2022- No 1{tbl} 1 tablet, Univers en-codeine 05-10 Oral, ity of (TYLENOL 15:05: 21:02 [id number], [place] #3) 300-30 56 :36 Starting Medic al mg tablet 1 on Fri Branch tablet 05/10/22 at 0905, Until 05/14/22 at 1502, Routine, Pain (scale 4-6) HYDROcodone 2022- No 1{tbl} 1 tablet, Univers -acetaminop 05-10 Oral, ity of hen (NORCO 15:05: 23:40 Q6HPRN, [place] 5) 5-325 mg 30 :32 Starting Medi [place]lyn tablet 1 on Fri Branch tablet 05/10/22 at 0905, Until 05/11/22 at 1740, Routine, Pain (scale 7-10) aspirin 2022-0 Yes 81mg 81 mg, Univers chewable 2-10 Oral, ity of tablet 81 15:00: DAILY, [place] mg 00 First dose Medical on Fri [place] 05/10/22 at 0900, Until Discontinu ed, Routine docusate 2022-0 Yes 100mg 100 mg, Unive rs (COLACE) 2-10 Oral, ity of capsule 100 15:00: DAILY, [place] mg 00 First dose Medical on Fri [place] 05/10/22 at 0900, Until Discontinu ed, Routine aspirin 2022-0 Yes 81mg 81 mg, Univers chewable 2-10 Oral, ity of tablet 81 15:00: DAILY, [place] mg 00 First dose Medical on Fri [place] 05/10/22 at 0900, Until Discontinu ed, Routine docusate 2022-0 Yes 100mg 100 mg, Unive rs (COLACE) 2-10 Oral, ity of capsule 100 15:00: DAILY, [place] mg 00 First dose Medical on Fri [place] 05/10/22 at 0900, Until Discontinu ed, Routine aspirin 2022-0 Yes 81mg 81 mg, Univers chewable 2-10 Oral, ity of tablet 81 15:00: DAILY, [place] mg 00 First dose Medical on Fri [place] 05/10/22 at 0900, Until Discontinu ed, Routine docusate 2022-0 2023- No 100mg 100 mg, Univ ers (COLACE) 2-10 02-24 Oral, ity of capsule 100 15:00: 21:56 DAILY, [place] mg 00 :47 First dose Medical on Fri [place] 05/10/22 at 0900, Until Discontinu ed, Routine famotidine 2022-0 Yes 20mg 20 mg, Unive rs (PEPCID AC) 2-10 Oral, BID, it y of tablet 20 14:00: First dose [place] mg 00 on Fri [facility] 05/10/22 at Branch 0800, Until Discontinu ed, Routine famotidine 3-0 Yes 20mg 20 mg, Unive rs (PEPCID AC) 2-10 Oral, BID, it y of tablet 20 14:00: First dose [place] mg 00 on Fri [facility] 05/10/22 at Branch 0800, Until Discontinu ed, Routine famotidine Yes 20mg 20 mg, Unive rs (PEPCID AC) 2-10 Oral, BID, it y of tablet 20 14:00: First dose [place] mg 00 on Fri Medical 05/10/22 at Branch 0800, Until Discontinu ed, Routine sevelamer 2022- No 800mg 800 mg, Uni vers (RENVELA) 05-10 Oral, TID ity of tablet 800 14:00: 06:29 MEALS, [place] mg 00 :42 First dose Medical on Fri Branch 05/10/22 at 0800, Until Discontinu ed amLODIPine 2022- No 10mg 10 mg, Univ ers (NORVASC) 05-10 Oral, Q24H ity of tablet 10 12:00: 06:31 ABX, First [place] mg 00 :26 dose Medical (after Branch last modificati on) on Fri05/10/22 at 0600, Until Discontinu ed, Routine hydrALAZINE 2022- No 10mg 10 mg, Uni vers (APRESOLINE 05-10 Oral, Q8H it y of ) tablet 10 10:15: 13:22 ABX, First [place] mg 00 :06 dose Medical (after Branch last modificati on) on Fri05/10/22 at 0415, Until Discontinu ed, Routine heparin 2022- No [id number] 1500U 1,500 Uni vers 1,000 05-10-10 Units, ity of unit/mL 08:30: 08:39 Slow IV [place] injection 00 :00 Push, Medical 1,500 Units DIALYSIS Bran ch ONCE - PT ROOM, 1 dose, On Fri05/10/22 at 0230, Routine heparin 2022- No [id number] 1500U 1,500 Uni vers 1,000 2-12 30-10 Units, ity of unit/mL 07:15: 07:18 Slow IV [place] injection 00 :00 Push, Medical 1,500 Units DIALYSIS Bran ch ONCE - PT ROOM, 1 dose, On Fri05/10/22 at 0115, Routine acetaminoph 2022- No 1{tbl} 1 tablet, Univers en-codeine 05-10- Oral, ity of (TYLENOL 06:22: 15:06 [id number], [place] #3) 300-30 43 :07 Starting Medic al mg tablet 1 on Fri Branch tablet 05/10/22 at 0022, Until Fri05/10/22 at 0906, Routine, Pain (scale 7-10) mupirocin Yes Nasal, Univer s (BACTROBAN 2-10 [...] at 2245, Until Discontinu ed, Routine insulin 2022-0 Yes 2U 2 Units, Univer s lispro 2-10 Subcutaneo ity of (human) 02:48: us, PRN - [place] (HumaLOG 53 SEE Medical U-100) INSTRUCTIO Branch injection 2 NS, 1 Units dose, Starting on [place] 05/09/22 at 2047, Until Discontinu ed, Routine, [...] snack - Sprite or cranberry juice.
insulin 2023-0 Yes 2U 2 Units, Univer s lispro 2-10 Subcutaneo ity of (human) 02:48: us, PRN - [place] (HumaLOG 53 SEE Medical U-100) [facility] injection 2 NS, 1 Units dose, Starting [...] No 50mg 50 mg, Univ ers tartrate 05-10-10 Oral, BID, ity of (LOPRESSOR) 02:00: 04:44 First dose [place] tablet 50 00 :31 on [facility] Medical mg 05/09/22 at Branch 2000, Until Discontinu ed, Routine sodium 2022- No 30g 30 g, Univers polystyrene 05-10-10 Oral, ity of sulfonate 01:00: 01:13 ONCE, 1 [place] (KAYEXALATE 00 :00 dose, On Medi ellyn ) 15 [facility] 05/09/22 Branch gram/60 mL at 1900, suspension STAT 30 g insulin 2022- No .1U/kg 7.8 Units Un irma regular 05-10-10 (0.1 ity of human 01:00: 01:21 Units/kg [place] (HUMULIN R) 00 :00 ?78 kg), [facility] ellyn injection IV Push, [place] 7.8 Units ONCE, 1 dose, On [facility] 05/09/22 at 1900, PHIL
In dication for insulin: Hyperkalem ia- Please use the Insulin Protocol for Hyperkalem ia order set dextrose 50 2022- No 50mL 50 mL, Uni vers % in water 210 02-10 Slow IV ity o f (D50W) 01:00: 01:14 Push, [place] injection 00 :00 ONCE, 1 Medical 50 mL dose, On Branch [facility] 05/09/22 at 1900, PHIL albuterol 0 2022- No 15mg 15 mg, Unive rs (PROVENTIL) 05-10-10 Inhalation i ty of 2.5 mg /3 01:00: 01:21 , ONCE, 1 [place] mL (0.083 00 :00 dose, On Medica l %) [facility] 05/09/22 Branch nebulizer at 1900, solution 15 STAT mg glucagon 0 Yes 1mg 1 mg, Univers (GLUCAGEN 2-10 Intramuscu ity of DIAGNOSTIC 00:47: lar, PRN, [place] KIT) 27 Starting Medical injection 1 on [facility] 05/09/22 at 1847, Until Discontinu ed, PHIL, Blood Glucose < or = 70 mg/dL and patient is NPO, unable to swallow or has mental changes. dextrose 50 2022-0 Yes 25mL 25 mL, Univ ers % in water 2-10 Slow IV ity of (D50W) 00:47: Push, PRN, [place] injection 27 Starting Medica l 25 mL on [facility] 05/09/22 at 1847, Until Discontinu ed, PHIL, Blood Glucose < or = 70 mg/dL and patient is NPO, unable to swallow or has mental status changes. glucagon 0 Yes 1mg 1 mg, Univers (GLUCAGEN 2-10 Intramuscu ity of DIAGNOSTIC 00:47: lar, PRN, [place] KIT) 27 Starting Medical injection 1 on [facility] Branch 05/09/22 at 1847, Until Discontinu ed, PHIL, Blood Glucose < or = 70 mg/dL and patient is NPO, unable to swallow or has mental changes. dextrose 50 2022-0 Yes 25mL 25 mL, Univ ers % in water 2-10 Slow IV ity of (D50W) 00:47: Push, PRN, [place] injection 27 Starting Medica l 25 mL on [facility] 05/09/22 at 1847, Until Discontinu ed, PHIL, Blood Glucose < or = 70 mg/dL and patient is NPO, unable to swallow or has mental status changes. glucagon Yes 1mg 1 mg, Univers (GLUCAGEN 2-10 Intramuscu ity of DIAGNOSTIC 00:47: lar, PRN, [place] KIT) 27 Starting Medical injection 1 on [facility] Branch 05/09/22 at 1847, Until Discontinu ed, PHIL, Blood Glucose < or = 70 mg/dL and patient is NPO, unable to swallow or has mental changes. dextrose 50 Yes 25mL 25 mL, Univ ers % in water 2-10 Slow IV ity of (D50W) 00:47: Push, PRN, [place] injection 27 Starting Medica l 25 mL on [facility] 05/09/22 at 1847, Until Discontinu ed, PHIL, Blood Glucose < or = 70 mg/dL and patient is NPO, unable to swallow or has mental status changes. ondansetron 2022- No 4mg 4 mg, Slow Univers (ZOFRAN 205-09 IV Push, ity of (PF)) 00:15: 23:10 ONCE, 1 [place] injection 4 00 :00 dose, On Medi ellyn mg [facility] 05/09/22 Branch at 1815, PHIL morpHINE (2 2022- No 4mg 4 mg, Slow Univers mg/mL) 05-10 IV Push, ity of injection 4 00:15: 23:10 ONCE, 1 [place] mg 00 :00 dose, On Medical [facility] 05/09/22 Branch at 1815, STAT hydralAZINE 2022- No 10mg 10 mg, Uni vers (APRESOLINE 05-09 Slow IV ity of ) injection 22:45: 23:40 Push, [place] 10 mg 00 :00 ONCE, 1 Medical dose, On Branch [facility] 05/09/22 at 1645, PHIL multivitami Yes 1{capsu Take 1 U nivers n capsule 2 le} capsule by ity of 20:45: mouth [place] 28 daily. Medical Branch multivitami Yes 1{capsu Take 1 U nivers n capsule 2- le} capsule by ity of 20:45: mouth [place] 28 daily. Medical Branch multivitami Yes 1{capsu Take 1 U nivers n capsule 05-09 le} capsule by ity of 20:45: mouth [place] 28 daily. Medical Branch melatonin 3 2021-03 Yes 3mg QD Take 3 mg M ethodi mg tablet 0-[address] 14:11: [facility] needed for l sleep. albuterol 2021-03 Yes 2.5mg [id number] Take 2.5 Methodi sulfate 0-[id number] (PROVENTIL) 14:11: 3D nebulizati [...] 15 l packet amino 2021-03 Yes 30mL Q.[id number] Take 30 mL Methodi acids/prote 0-25 [id number] [address] mouth [address] in 14:11: 3D [...] Hospit a 15 l acetaminoph 2021-03 Yes [id number] 1{tbl} Q.5D Take 1 M ethodi en-codeine [...] daily. Default OP ins ergocalcife 2021-03 Yes [id number] Q7D Take 1 Me thodi rol 0-25 [...] l mouth nightly. patiromer 2021-03 Yes 8.4g Q.03915050 Take 8.4 g [facility] calcium 0-25 [id number] by mouth [address] sorbitex 14:11: 3W [...] for l sleep. albuterol 2021-03 Yes 2.5mg Q.78875210 Take 2.5 [facility] sulfate 0-[id number] (PROVENTIL) 14:11: 3D nebulizati [...] 15 l packet amino 2021-03 Yes 30mL Q.49310935 Take 30 mL [facility] acids/prote 0-25 [id number] by mouth [address] in 14:11: 3D [...] [facility] 15 l acetaminoph 2021-03 Yes 97917 1{tbl} Q.5D Take 1 M [facility] en-codeine [...] daily. Default OP ins ergocalcife 2021-03 Yes 60494M Q7D Take 1 Me thodi rol 0-25 [...] l mouth nightly. patiromer 2021-03 Yes 8.4g Q.87462290 Take 8.4 g [facility] calcium 0-25 [id number] by mouth [address] sorbitex 14:11: 3W [...] for l sleep. albuterol 2021-03 Yes 2.5mg Q.31850348 Take 2.5 [facility] sulfate 0-[id number] (PROVENTIL) 14:11: 3D nebulizati [...] 15 l packet amino 2021-03 Yes 30mL Q.92608323 Take 30 mL [facility] acids/prote 0-25 [id number] by mouth [address] in 14:11: 3D [...] Hospit [facility] 15 l acetaminoph 2021-03 Yes [id number] 1{tbl} Q.5D Take 1 M [facility]i en-codeine 0-[address] (TYLENOL 14:11: mouth 2 Hospit a WITH 15 (two) l CODEINE #3) times a 300-30 mg day as per tablet needed for moderate pain .acute pain. ARIPiprazol 2021-03 Yes 5mg QD Take 1 Meth indrejit e (ABILIFY) 0-25 tablet (5 st 5 MG tablet 14:11: mg total) [facility] 15 by mouth l daily. atorvastati 2021-03 Yes 20mg QD Take 1 Meth inderjit n (LIPITOR) 0-25 tablet (20 st 20 mg 14:11: mg total) Hospita tablet 15 by mouth l daily. Default OP ins ergocalcife 2021-03 Yes 12006Y Q7D Take 1 Me thodi rol 0-25 [...] l mouth nightly. patiromer 2021-03 Yes 8.4g Q.88419759 Take 8.4 g [facility] calcium 0-25 [id number] by mouth [address] sorbitex 14:11: 3W [...] for l sleep. albuterol 2021-03 Yes 2.5mg Q.38007791 Take 2.5 [facility] sulfate 0-[id number] (PROVENTIL) 14:11: 3D nebulizati [...] 15 l packet amino 2021-03 Yes 30mL Q.31824248 Take 30 mL [facility] acids/prote 0-25 [id number] by mouth [address] in 14:11: 3D [...] Hospit a 15 l acetaminoph 2021-03 Yes [id number] 1{tbl} Q.5D Take 1 M [facility]i en-codeine [...] daily. Default OP ins ergocalcife 2021-03 Yes [id number] Q7D Take 1 Me thodi rol 0-25 [...] l mouth nightly. patiromer 2021-03 Yes 8.4g Q.31296017 Take 8.4 g [facility] calcium 0-25 [id number] by mouth [address] sorbitex 14:11: 3W [...] for l sleep. albuterol 2021-03 Yes 2.5mg Q.40372599 Take 2.5 [facility] sulfate 0-[id number] (PROVENTIL) 14:11: 3D nebulizati [...] 15 l packet amino 2021-03 Yes 30mL Q.88126623 Take 30 mL [facility] acids/prote 0-25 [id number] [address] mouth [address] in 14:11: 3D [...] Hospit a 15 l acetaminoph 2021-03 Yes 90719 1{tbl} Q.5D Take 1 M [facility]i en-codeine [...] daily. Default OP ins ergocalcife 2021-03 Yes 15342K Q7D Take 1 Me thodi rol 0-25 [...] l mouth nightly. patiromer 2021-03 Yes 8.4g Q.51768548 Take 8.4 g [facility] calcium 0-25 [id number] by mouth [address] sorbitex 14:11: 3W [...] for l sleep. albuterol 2021-03 Yes 2.5mg Q.18895660 Take 2.5 [facility] sulfate 0-[id number] (PROVENTIL) 14:11: 3D nebulizati [...] 15 l packet amino 2021-03 Yes 30mL Q.58526135 Take 30 mL [facility] acids/prote 0-25 [id number] by mouth [address] in 14:11: 3D [...] Hospit a 15 l acetaminoph 2021-03 Yes 14611 1{tbl} Q.5D Take 1 M ethodi en-codeine [...] daily. Default OP ins ergocalcife 2021-03 Yes [id number] Q7D Take 1 Me thodi rol 0-25 [...] l mouth nightly. patiromer 2021-03 Yes 8.4g Q.32947072 Take 8.4 g [facility] calcium 0-25 [id number] by mouth [address] sorbitex 14:11: 3W [...] for l sleep. albuterol 2021-03 Yes 2.5mg Q.06551481 Take 2.5 [facility] sulfate 0-[id number] (PROVENTIL) 14:11: 3D nebulizati [...] 15 l packet amino 2021-03 Yes 30mL Q.32954851 Take 30 mL [facility] acids/prote 0-25 [id number] by mouth [address] in 14:11: 3D [...] Hospit a 15 l acetaminoph 2021-03 Yes 24583 1{tbl} Q.5D Take 1 M ethodi en-codeine [...] daily. Default OP ins ergocalcife 2021-03 Yes [id number] Q7D Take 1 Me thodi rol 0-25 [...] l mouth nightly. patiromer 2021-03 Yes 8.4g Q.64654208 Take 8.4 g [facility] calcium 0-25 [id number] by mouth [address] sorbitex 14:11: 3W [...] for l sleep. albuterol 2021-03 Yes 2.5mg Q.51782585 Take 2.5 [facility] sulfate 0-[id number] (PROVENTIL) 14:11: 3D nebulizati [...] 15 l packet amino 2021-03 Yes 30mL Q.48813114 Take 30 mL [facility] acids/prote 0-25 [id number] by mouth [address] in 14:11: 3D [...] Hospit a 15 l acetaminoph 2021-03 Yes 76911 1{tbl} Q.5D Take 1 M ethodi en-codeine [...] daily. Default OP ins ergocalcife 2021-03 Yes [id number] Q7D Take 1 Me thodi rol 0-25 [...] l mouth nightly. patiromer 2021-03 Yes 8.4g Q.66773324 Take 8.4 g [facility] calcium 0-25 [id number] by mouth [address] sorbitex 14:11: 3W [...] for l sleep. albuterol 2021-03 Yes 2.5mg Q.10039123 Take 2.5 [facility] sulfate 0-[id number] (PROVENTIL) 14:11: 3D nebulizati [...] 15 l packet amino 2021-03 Yes 30mL Q.67657437 Take 30 mL [facility] acids/prote 0-25 [id number] by mouth [address] in 14:11: 3D [...] Hospit a 15 l acetaminoph 2021-03 Yes [id number] 1{tbl} Q.5D Take 1 M [facility]i en-codeine [...] daily. Default OP ins ergocalcife 2021-03 Yes [id number] Q7D Take 1 Me thodi rol 0-25 [...] l mouth nightly. patiromer 2021-03 Yes 8.4g Q.23559250 Take 8.4 g [facility] calcium 0-25 [id number] [address] mouth [address] sorbitex 14:11: 3W [...] for l sleep. albuterol 2021-03 Yes 2.5mg Q.89910266 Take 2.5 [facility] sulfate 0-[id number] (PROVENTIL) 14:11: 3D nebulizati [...] 15 l packet amino 2021-03 Yes 30mL Q.45464288 Take 30 mL [facility] acids/prote 0-25 [id number] by mouth [address] in 14:11: 3D [...] daily. Default OP ins ergocalcife 2021-03 Yes [id number] Q7D Take 1 Me thodi rol 0-25 [...] l mouth nightly. patiromer 2021-03 Yes 8.4g Q.95588225 Take 8.4 g [facility] calcium 0-25 [id number] by mouth [address] sorbitex 14:11: 3W [...] for l sleep. albuterol 2021-03 Yes 2.5mg Q.70270954 Take 2.5 [facility] sulfate 0-[id number] (PROVENTIL) 14:11: 3D nebulizati [...] 15 l packet amino 2021-03 Yes 30mL Q.47195923 Take 30 mL [facility] acids/prote 0-25 [id number] by mouth 3 [address] in 14:11: 3D [...] Hospit a 15 l acetaminoph 2021-03 Yes 78595 1{tbl} Q.5D Take 1 M [facility]i en-codeine [...] daily. Default OP ins ergocalcife 2021-03 Yes [id number] Q7D Take 1 Me thodi rol 0-25 [...] l mouth nightly. patiromer 2021-03 Yes 8.4g Q.56923723 Take 8.4 g [facility] calcium 0-25 [id number] by mouth [address] sorbitex 14:11: 3W [...] 1{capsu Take 1 U nivers n capsule 9-27 le} capsule by [facility] 13:33: mouth [place] 35 daily. [facility] multivitami Yes 1{capsu Take 1 U nivers n capsule 9-27 le} capsule by [facility] 13:33: mouth [place] 35 daily. [facility] multivitami Yes 1{capsu Take 1 U nivers n capsule 9-27 le} capsule by [facility] 13:33: mouth [place] 35 daily. [facility] clonIDINE 2022-0 2022- No .2mg Q7D Place [...] week for 30 days. acetaminoph 2021-0 Yes [id number] 1{tbl} Q.5D Take 1 M [facility] en-codeine 9-[address] (TYLENOL 20:55: mouth 2 Hospit a WITH 01 (two) l CODEINE #3) times a 300-30 mg day as per tablet needed for moderate pain .acute pain. ARIPiprazol 2021-0 Yes 5mg QD Take 1 Meth inderjit e (ABILIFY) 9-21 tablet (5 st 5 MG tablet 20:55: mg total) [facility] 01 by mouth l daily. atorvastati 0 Yes 20mg QD Take 1 Meth inderjit n (LIPITOR) - tablet (20 st 20 mg 20:55: mg total) Hospita tablet 01 by mouth l daily. Default OP ins ergocalcife 0 Yes 02801O Q7D Take 1 Me thodi rol 12-19 [...] l mouth nightly. patiromer 0 Yes 8.4g Q.82644085 Take 8.4 g [facility] calcium 12-19 [id number] by mouth [address] sorbitex 20:55: 3W (three) Hospit a ([place]) 01 times a l 8.4 gram week. powder in Every packet Tue,Tess,Sa packet t,to be given on non dialysis days. aspirin 0 Yes 81mg QD Take 1 [facility] (ECOTRIN) 12-19 tablet (81 st 81 MG 20:55: mg total) [facility]osp[facility] enteric 01 by mouth l coated daily. tablet calcium 2021-0 2022- No 667mg QD Take [...] Give odd gram powder days in packet [facility], packet u,Sat calcium 2021-0 2022- No 667mg QD Take 1 [facility] acetate,aure 12-[address] sphat bind, 20:55: 00:00 (667 mg Ho [facility] (PHOSLO) 01 :00 total) by l 667 mg mouth capsule nightly. metoprolol 2-0 2- No 100mg Q12H Take 1 Met [...] days in packet Sun,Tue,Th packet u,Sat calcium 2022-0 2022- No 667mg [...] in packet Sun,Fri, packet u,Sat calcium 2021-0 2- No 667mg QD Take 1 Method i [...] hours. Hold for SBP<120 or HR<60 sodium 2-0 2022- No 5g Q2D Take 5 g [...] 100mg Q12H Take 1 Met hodi tartrate -19 12-[address] (LOPRESSOR) 20:55: 00:00 (100 mg [...] days in packet Fri,Fri, packet u,Sat calcium 2022-0 2022- No 667mg [...] Give odd gram powder days in packet Central,Fri, packet u,Sat calcium 2022-0 2022- No 667mg [...] Give odd gram powder days in packet Fri, packet u,Sat calcium 2022-0 2022- No 667mg [...] Give odd gram powder days in packet Central packet u,Sat calcium 2022-0 2022- No 667mg [...] days in packet Fri,Fri, packet u,Sat calcium 2022-0 2022- No 667mg [...] in packet Sun,Fri, packet u,Sat calcium 2021-0 2- No 667mg QD Take 1 Method i [...] hours. Hold for SBP<120 or HR<60 sodium 2-0 2022- No 5g Q2D Take 5 g [...] 100mg Q12H Take 1 Met hodi tartrate -19 12-[address] (LOPRESSOR) 20:55: 00:00 (100 mg [...] days in packet Sun,Fri, packet u,Sat cefTAZidime 2021-0 Yes 1g QD [...] QD Infuse 1 g [facility] (FORTAZ) 1 -[address] gram in 50 00:00: [...] mouth [facility]osp[facility] 48 :00 daily. l clonIDINE 2021-2021- No .2mg Q.24959508 Take 1 [facility] HCl 12-18- [id number] tablet st (CATAPRES) 20:55: 00:00 3D (0.2 mg [facility] acacia 0.2 MG 48 :00 total) by l tablet mouth 3 (three) times a day as needed. Hold if SBP<100, DBP<60 LIDOCAINE 2021-0 2021- No 1{appli Q.04690212 Apply 1 [facility] HCL TOP 12-18 cation} [id number] applicatio st 20:55: 00:00 3W n Hospita [...] hold prior to dilaysis tra[place] 2021- No [address] 50mg Q6H Take 50 mg M ethodi [...] :00 daily. l clonIDINE 2021- No .2mg Q.08889205 Take 1 [facility] HCl 12-18- [id number] tablet st (CATAPRES) 20:55: 00:00 3D (0.2 mg [facility] acacia 0.2 MG 48 :00 total) by l tablet mouth 3 (three) times a day as needed. Hold if SBP<100, DBP<60 LIDOCAINE 2021-2021- No 1{appli Q.39632130 Apply 1 [facility] HCL TOP 12-18 cation} [id number] applicatio st 20:55: 00:00 3W n Hospita [...] hold prior to dilaysis traMADol 2021- No 70251 50mg Q6H Take 50 mg M ethodi [...] :00 daily. l clonIDINE 2021- No .2mg Q.67989095 Take 1 [facility] HCl 12-[id number] (CATAPRES) 20:55: 00:00 3D (0.2 mg Hos acacai 0.2 MG 48 :00 total) by l tablet mouth 3 (three) times a day as needed. Hold if SBP<100, DBP<60 LIDOCAINE 2021-2021- No 1{appli Q.83920379 Apply 1 [facility] HCL TOP 12-18 cation} [id number] applicatio st 20:55: 00:00 3W n [facility]ospita [...] hold prior to dilaysis traMADol 2021- No 14977 50mg Q6H Take 50 mg M ethodi [...] :00 daily. l clonIDINE 2021- No .2mg Q.17920602 Take 1 [facility] HCl 12-18- [id number] tablet st (CATAPRES) 20:55: 00:00 3D (0.2 mg Hos acacia 0.2 MG 48 :00 total) by l tablet mouth 3 (three) times a day as needed. Hold if SBP<100, DBP<60 LIDOCAINE 2021-2021- No 1{appli Q.24144236 Apply 1 [facility] HCL TOP 12-18 cation} [id number] applicatio st 20:55: 00:00 3W n Hospita [...] hold prior to dilaysis traMADol 2021- No [id number] 50mg Q6H Take 50 mg M ethodi [...] :00 daily. l clonIDINE 2021- No .2mg Q.35343794 Take 1 [facility] HCl 12-18- [id number] tablet st (CATAPRES) 20:55: 00:00 3D (0.2 mg [facility] acacia 0.2 MG 48 :00 total) by l tablet mouth 3 (three) times a day as needed. Hold if SBP<100, DBP<60 LIDOCAINE 2021- No 1{appli Q.53275560 Apply 1 [facility] HCL TOP 12-18- cation} [id number] applicatio st 20:55: 00:00 3W n [facility]ospita [...] hold prior to dilaysis traMADol 2021- No 23683 50mg Q6H Take 50 mg M ethodi [...] :00 daily. l clonIDINE 2021- No .2mg Q.96765312 Take 1 [facility] HCl 12-18- [id number] tablet st (CATAPRES) 20:55: 00:00 3D (0.2 mg Hos acacia 0.2 MG 48 :00 total) by l tablet mouth 3 (three) times a day as needed. Hold if SBP<100, DBP<60 LIDOCAINE 2021- No 1{appli Q.30298675 Apply 1 [facility] HCL TOP 12-18- cation} [id number] applicatio st 20:55: 00:00 3W n Hospita [...] not [place] [address] 50mg Q6H Take 50 mg M ethodi [...] :00 daily. l capsule aspirin 325 2021- 325mg QD Take 325 [facility] MG tablet 12-18-[address] 20:55: 00:00 mouth [facility]osp[facility] 48 :00 daily. l clonIDINE No .2mg Q.20778287 Take 1 [facility] HCl 12-18- [id number] tablet st (CATAPRES) 20:55: 00:00 3D (0.2 mg [facility] acacia 0.2 MG 48 :00 total) by l tablet mouth 3 (three) times a day as needed. Hold if SBP<100, DBP<60 LIDOCAINE 2021- No 1{appli Q.52712115 Apply 1 [facility] HCL TOP 12-18 cation} [id number] applicatio st 20:55: 00:00 3W n [facility]osp[facility] 48 :00 topically l 3 (three) times a week. 3% Gel, Apply to right hemodialys is access every day shift every Mon, Wed,, Fri. For pain prior to dialysis lisinopril 40mg QD Take 1 Meth inderjit (PRINIVIL) 12-18- tablet (40 st 40 mg 20:55: 00:00 mg total) Hospit a tablet 48 :00 by mouth l daily. Hold if SBP<110, DBP<60 ,do [place] [address] 50mg Q6H Take 50 mg M ethodi (ULTRAM) 50 12-18-[address] mg tablet 20:55: 00:00 every 6 Hosp carly 48 :00 (six) l hours as needed for moderate pain .Acute Pain. acetaminoph 1000mg Q6H Take 1,000 [facility] en 12-18-20 [...] 48 :00 daily. l clonIDINE No .2mg Q.38654636 Take 1 [facility] HCl 12-18- [id number] tablet st (CATAPRES) 20:55: 00:00 3D (0.2 mg [facility] acacia 0.2 MG 48 :00 total) by l tablet mouth 3 (three) times a day as needed. Hold if SBP<100, DBP<60 LIDOCAINE 2021- No 1{appli Q.31367306 Apply 1 [facility] HCL TOP 12-18- cation} [id number] applicatio st 20:55: 00:00 3W n Hospita [...] not [place] [address] 50mg Q6H Take 50 mg M ethodi [...] 48 :00 daily. l capsule aspirin 325 325mg QD Take 325 [facility] MG tablet 12-18-[address] 20:55: 00:00 mouth [facility]osp[facility] 48 :00 daily. l clonIDINE No .2mg Q.28520757 Take 1 [facility] HCl 12-[id number] (CATAPRES) 20:55: 00:00 3D (0.2 mg [facility] acacia 0.2 MG 48 :00 total) by l tablet mouth 3 (three) times a day as needed. Hold if SBP<100, DBP<60 LIDOCAINE 2021- No 1{appli Q.67958652 Apply 1 [facility] HCL TOP 12-18 cation} [id number] applicatio st 20:55: 00:00 3W n [facility]osp[facility] 48 :00 topically l 3 (three) times a week. 3% Gel, Apply to right hemodialys is access every day shift every Fri, Wed,, Fri. For pain prior to dialysis lisinopril No 40mg QD Take 1 Meth inderjit (PRINIVIL) 12-18- tablet (40 st 40 mg 20:55: 00:00 mg total) Hospit a tablet 48 :00 by mouth l daily. Hold if SBP<110, DBP<60 ,do [place] [address] 50mg Q6H Take 50 mg M ethodi [...] 48 :00 daily. l capsule aspirin 325 325mg QD Take 325 [facility] MG tablet 12-18-[address] 20:55: 00:00 mouth [facility]osp[facility] 48 :00 daily. l clonIDINE No .2mg Q.99365203 Take 1 [facility] HCl 12-[id number] (CATAPRES) 20:55: 00:00 3D (0.2 mg [facility] acacia 0.2 MG 48 :00 total) by l tablet mouth 3 (three) times a day as needed. Hold if SBP<100, DBP<60 LIDOCAINE 2021- No 1{appli Q.55061144 Apply 1 [facility] HCL TOP 12-18 cation} [id number] applicatio st 20:55: 00:00 3W n Hospita [...] hold prior to dilaysis traM[place]ol 2021- No 98002 50mg Q6H Take 50 mg M ethodi [...] :00 daily. l clonIDINE 2021- No .2mg Q.35670004 Take 1 [facility] HCl 12-[id number] (CATAPRES) 20:55: 00:00 3D (0.2 mg [facility] acacia 0.2 MG 48 :00 total) by l tablet mouth 3 (three) times a day as needed. Hold if SBP<100, DBP<60 LIDOCAINE 2021- No 1{appli Q.83391068 Apply 1 [facility] HCL TOP 12-18- cation} [id number] applicatio st 20:55: 00:00 3W n [facility]ospita 48 :00 topically l 3 (three) times a week. 3% Gel, Apply to right hemodialys is access every day shift every Fri, Wed,, Fri. For pain prior to dialysis lisinopril 2021- No 40mg QD Take 1 Meth inderjit (PRINIVIL) 12-18- tablet (40 st 40 mg 20:55: 00:00 mg total) Hospit a tablet 48 :00 by mouth l daily. Hold if SBP<110, DBP<60 ,do not hold prior to dilaysis traM[place]ol 2021- No 28[address] 50mg Q6H Take 50 mg M ethodi [...] :00 daily. l clonIDINE 2021- No .2mg Q.29019822 Take 1 [facility] HCl 12-[id number] (CATAPRES) 20:55: 00:00 3D (0.2 mg [facility] acacia 0.2 MG 48 :00 total) by l tablet mouth 3 (three) times a day as needed. Hold if SBP<100, DBP<60 LIDOCAINE 2021- No 1{appli Q.40431439 Apply 1 [facility] HCL TOP 12-18 cation} [id number] applicatio st 20:55: 00:00 3W n Hospita [...] ,do not hold prior to dilaysis traMADol 0 2021- No [address]186 50mg Q6H Take 50 mg M ethodi [...] for l sleep. albuterol 0 Yes 2.5mg Q.88369961 Take 2.5 [facility] sulfate -[id number] (PROVENTIL) 20:55: 3D nebulizati Hospita 2.5 mg/0.5 45 on 3 l mL solution (three) for times a nebulizatio day as n needed (congestio n/cough). amLODIPine 0 Yes 10mg QD Take 1 Metho di (NORVASC) -20 tablet (10 st 10 mg 20:55: mg total) Hospita tablet 45 by mouth l daily. Hold for SBP<110/60 ,Hold prior to dialysis. lanolin/min 0 Yes 1[drp] Q.5D Apply 1 M ethodi [...] gram 45 l packet amino Yes 30mL Q.42088602 Take 30 mL [facility] acids/prote 9-20 [id number] by mouth 3 [address] in 20:55: 3D [...] 45 l calcium 0 2021- No 1334mg Q.89859207 Take 2 [facility] acetate 9-20 09-20 [id number] capsules s t (PHOSLO) 14:15: 00:00 3D (1,334 mg [facility] acacia 667 mg 08 :00 total) by l capsule mouth 3 (three) times a day with meals. Give 15 minutes before meals calcium 2022-0 2022- No 1334mg Q.78850467 Take 2 [facility] acetate -18 12-20 [id number] capsules s t (PHOSLO) 14:15: 00:00 3D (1,334 mg [facility] acacia 667 mg 08 :00 total) by l capsule mouth 3 (three) times a day with meals. Give 15 minutes before meals calcium 2021-0 2022- No 1334mg Q.99766788 Take 2 [facility] acetate -18 12- [id number] capsules s t (PHOSLO) 14:15: 00:00 3D (1,334 mg [facility] acacia 667 mg 08 :00 total) by l capsule mouth 3 (three) times a day with meals. Give 15 minutes before meals calcium 2021-0 202- No 1334mg Q.03420129 Take 2 [facility] acetate -18 12- [id number] capsules s t (PHOSLO) 14:15: 00:00 3D (1,334 mg [facility] acacia 667 mg 08 :00 total) by l capsule mouth 3 (three) times a day with meals. Give 15 minutes before meals calcium 2021-0 2022- No 1334mg Q.42523676 Take 2 [facility] acetate -18 12- [id number] capsules s t (PHOSLO) 14:15: 00:00 3D (1,334 mg [facility] acacia 667 mg 08 :00 total) by l capsule mouth 3 (three) times a day with meals. Give 15 minutes before meals calcium 2021-0 2022- No 1334mg Q.39507049 Take 2 [facility] acetate -18 12- [id number] capsules s t (PHOSLO) 14:15: 00:00 3D (1,334 mg [facility] acacia 667 mg 08 :00 total) by l capsule mouth 3 (three) times a day with meals. Give 15 minutes before meals calcium 2021-0 2022- No 1334mg Q.39971627 Take 2 [facility] acetate -18 12-20 [id number] capsules s t (PHOSLO) 14:15: 00:00 3D (1,334 mg [facility] acacia 667 mg 08 :00 total) by l capsule mouth 3 (three) times a day with meals. Give 15 minutes before meals calcium 2021-0 2022- No 1334mg Q.61678907 Take 2 [facility] acetate 9-20 -20 [id number] capsules s t (PHOSLO) 14:15: 00:00 3D (1,334 mg [facility] acacia 667 mg 08 :00 total) by l capsule mouth 3 (three) times a day with meals. Give 15 minutes before meals calcium 2021-0 2022- No 1334mg Q.33146567 Take 2 [facility] acetate 9-20 -20 [id number] capsules s t (PHOSLO) 14:15: 00:00 3D (1,334 mg [facility] acacia 667 mg 08 :00 total) by l capsule mouth 3 (three) times a day with meals. Give 15 minutes before meals calcium 2021-0 202- No 1334mg Q.75406521 Take 2 [facility] acetate 9-18 12-20 [id number] capsules s t (PHOSLO) 14:15: 00:00 3D (1,334 mg [facility] acacia 667 mg 08 :00 total) by l capsule mouth 3 (three) times a day with meals. Give 15 minutes before meals calcium 2021-0 2022- No 1334mg Q.37640703 Take 2 [facility] acetate 9-20 -20 [id number] capsules s t (PHOSLO) 14:15: 00:00 3D (1,334 mg [facility] acacia 667 mg 08 :00 total) by l capsule mouth 3 (three) times a day with meals. Give 15 minutes before meals calcium 2021-0 2022- No 1334mg Q.80438511 Take 2 [facility] acetate 9-20 -20 [id number] capsules s t (PHOSLO) 14:15: 00:00 3D (1,334 mg [facility] acacia 667 mg 08 :00 total) by l capsule mouth 3 (three) times a day with meals. Give 15 minutes before meals calcium 2021-0 Yes 2001mg Q.15535672 Take 3 [facility] acetate,uare -[id number] sphat bind, 00:00: 3D (2,001 mg H ospita (PHOSLO) 00 total) by l 667 mg mouth 3 capsule (three) times a day with meals. Give 15 minutes before meals calcium 2022-0 Yes 2001mg Q.76178500 Take 3 [facility] acetate,aure 9-[id number] sphat bind, 00:00: 3D (2,001 mg H [facility]spita (PHOSLO) 00 total) by l 667 mg mouth 3 capsule (three) times a day with meals. Give 15 minutes before meals calcium 2022-0 Yes 2001mg Q.35607452 Take 3 [facility] acetate,aure 9-[id number] sphat bind, 00:00: 3D (2,001 mg H [facility]sp[facility] (PHOSLO) 00 total) by l 667 mg mouth 3 capsule (three) times a day with meals. Give 15 minutes before meals calcium 2022-0 Yes 2001mg Q.08273555 Take 3 [facility] acetate,aure 9-[id number] sphat bind, 00:00: 3D (2,001 mg H [facility] (PHOSLO) 00 total) by l 667 mg mouth 3 capsule (three) times a day with meals. Give 15 minutes before meals calcium 2022-0 Yes 2001mg Q.[id number] Take 3 [facility] acetate,aure 9-[id number] sphat bind, 00:00: 3D (2,001 mg H [facility] (PHOSLO) 00 total) by l 667 mg mouth 3 capsule (three) times a day with meals. Give 15 minutes before meals calcium 2022-0 Yes 2001mg Q.60817245 Take 3 [facility] acetate,aure 9-[id number] sphat bind, 00:00: 3D (2,001 mg H [facility] (PHOSLO) 00 total) by l 667 mg mouth 3 capsule (three) times a day with meals. Give 15 minutes before meals calcium 2022-0 Yes 2001mg Q.73314094 Take 3 [facility] acetate,aure 9-[id number] sphat bind, 00:00: 3D (2,001 mg H [facility] (PHOSLO) 00 total) by l 667 mg mouth 3 capsule (three) times a day with meals. Give 15 minutes before meals calcium 2022-0 Yes 2001mg Q.[id number] Take 3 [facility] acetate,aure 9-[id number] sphat bind, 00:00: 3D (2,001 mg H [facility]sp[facility] (PHOSLO) 00 total) by l 667 mg mouth 3 capsule (three) times a day with meals. Give 15 minutes before meals calcium 2022-0 Yes 2001mg Q.[id number] Take 3 [facility] acetate,aure 9-[id number] sphat bind, 00:00: 3D (2,001 mg H [facility] (PHOSLO) 00 total) by l 667 mg mouth 3 capsule (three) times a day with meals. Give 15 minutes before meals calcium 2022-0 Yes 2001mg Q.60732802 Take 3 [facility] acetate,aure 9-[id number] sphat bind, 00:00: 3D (2,001 mg H [facility]sp[facility] (PHOSLO) 00 total) by l 667 mg mouth 3 capsule (three) times a day with meals. Give 15 minutes before meals calcium 2022-0 Yes 2001mg Q.01961719 Take 3 [facility] acetate,aure 9-[id number] sphat bind, 00:00: 3D (2,001 mg H [facility]spita (PHOSLO) 00 total) by l 667 mg mouth 3 capsule (three) times a day with meals. Give 15 minutes before meals calcium 2022-0 Yes 2001mg Q.33834881 Take 3 [facility] acetate,aure 9-[id number] sphat bind, 00:00: 3D (2,001 [...] days. as needed for 30 days. acetaminoph 2022-0 Yes Q12H every 12 UT en-codeine 09-25 (twelve) Healt h (Tylenol w/ 16:44: hours. Codeine #3) 48 300-30 MG tablet atorvastati 2021-0 Yes QD 1 (one) UT n (Lipitor) - time each Hea lth 20 MG 16:44: [...] Health (Vitamin 16:44: D-2) 1.25 48 MG (61576 UT) capsule ferrous 2021-0 Yes Q12H every 12 UT sulfate 325 09-25 (twelve) Heal th (65 Fe) MG 16:44: hours. tablet 48 fluticasone 2021-0 Yes QD 1 (one) UT (Flonase) 09-25 [...] pack packet one on non dialysis days mehran hardin, anila sertraline Yes QD 1 (one) UT (Zoloft) [...] 12 l (twelve) hours. traMADol 2018-03 Yes 96020 50mg Q6H Take 50 mg Me thodi [...] for l sleep. albuterol 2018-03 Yes 2.5mg Q.[id number] Take 2.5 [facility] sulfate 1-[id number] (PROVENTIL) 15:53: 3D nebulizati [...] OPHT) day. 0.4% calcium 2018-03 Yes 2001mg Q.85677799 Take 2,001 [facility] acetate 1-[id number] (PHOSLO) 15:53: 3D mouth 3 Hospit a 667 mg 19 (three) l capsule times a day with meals. Give 15 minutes before meals clonIDINE 2018-03 Yes .2mg Q.30895884 Take 0.2 [facility] HCl 1-[address] (CATAPRES) 15:53: 3D mouth [...] needed for pain LIDOCAINE 2018-03 Yes 1{appli Q.[id number] Apply 1 [facility] HCL TOP 1-30 cation} [id number] applicatio st 15:53: [facility] n [facility] 19 [...] 19 l packet amino 2018-03 Yes 30mL Q.[id number] Take 30 mL [facility] acids/prote 1-30 [id number] mouth [address] in 15:53: 3D (three) Hospita hydr/fiber 19 times a l (PRO-STAT day. RENAL CARE ORAL) senna 2018-03 Yes 2{tbl} Q12H Take 2 [facility] (SENOKOT) 1-[address] 8.6 mg 15:53: [facility] tablet 19 every 12 l (twelve) hours. traMADol 2018-03 Yes [id number] 50mg Q6H Take 50 mg Me thodi [...] daily. l capsule calcium 2018-03 Yes 2001mg Q.12142586 Take 2,001 [facility] acetate 1-[id number] (PHOSLO) 15:53: 3D mouth 3 Hospit a 667 mg 19 (three) l capsule times a day with meals. Give 15 minutes before meals cetirizine 2018-03 Yes 10mg QD Take 10 mg [facility] (ZyrTEC) 10 1-[address] MG tablet 15:53: daily. Hospit a 19 l clonIDINE 2018-03 Yes .2mg Q.69188142 Take 0.2 [facility] HCl 1-[id number] (CATAPRES) 15:53: 3D mouth [...] needed for pain LIDOCAINE 2018-03 Yes 1{appli Q.24955974 Apply 1 [facility] HCL TOP 1-30 cation} [id number] applicatio st 15:53: [facility] n [facility] 19 [...] 19 l packet amino 2018-03 Yes 30mL Q.17360618 Take 30 mL [facility] acids/prote 1-30 [id number] by mouth [address] in 15:53: 3D (three) Hospita hydr/fiber 19 times a l (PRO-STAT day. RENAL CARE ORAL) senna 2018-03 Yes 2{tbl} Q12H Take 2 [facility] (SENOKOT) 1-[address] 8.6 mg 15:53: mouth [facility] tablet 19 every 12 l (twelve) hours. traMADol 2018-03 Yes [id number] 50mg Q6H Take 50 mg Me thodi [...] for l sleep. albuterol 2018-03 Yes 2.5mg Q.68250851 Take 2.5 [facility] sulfate 1-[id number] (PROVENTIL) 15:53: 3D nebulizati [...] OPHT) day. 0.4% calcium 2018-03 Yes 2001mg Q.07720914 Take 2,001 [facility] acetate 1-[id number] (PHOSLO) 15:53: 3D mouth 3 Hospit a 667 mg 19 (three) l capsule times a day with meals. Give 15 minutes before meals clonIDINE 2018-03 Yes .2mg Q.16509283 Take 0.2 [facility] HCl 1-[address] (CATAPRES) 15:53: 3D mouth [...] needed for pain LIDOCAINE 2018-03 Yes 1{appli Q.58491196 Apply 1 [facility] HCL TOP 1-30 cation} [id number] applicatio st 15:53: [facility] 19 [...] 19 l packet amino 2018-03 Yes 30mL Q.22004677 Take 30 mL [facility] acids/prote 1-30 1675294244 by mouth [address] in 15:53: 3D (three) Hospita hydr/fiber 19 times a l (PRO-STAT day. RENAL CARE ORAL) senna 2018-03 Yes 2{tbl} Q12H Take 2 [facility] (SENOKOT) 1-[address] 8.6 mg 15:53: [facility] tablet 19 every 12 l (twelve) hours. traMADol 2018-03 Yes 22227 50mg Q6H Take 50 mg Me thodi [...] for l sleep. albuterol 2018-03 Yes 2.5mg Q.10102912 Take 2.5 [facility] sulfate 1-[address] (PROVENTIL) 15:53: 3D nebulizati [...] OPHT) day. 0.4% calcium 2018-03 Yes 2001mg Q.67513272 Take 2,001 [facility] acetate 1-[address] (PHOSLO) 15:53: 3D mouth 3 Hospit [facility] 667 mg 19 (three) l capsule times a day with meals. Give 15 minutes before meals clonIDINE 2018-03 Yes .2mg Q.61643307 Take 0.2 [facility] HCl 1-[address] (CATAPRES) 15:53: 3D mouth [...] needed for pain LIDOCAINE 2018-03 Yes 1{appli Q.05628427 Apply 1 [facility] HCL TOP 1-30 cation} [id number] applicatio [facility] 15:53: [facility] 19 [...] 19 l packet amino 2018-03 Yes 30mL Q.12330249 Take 30 mL [facility] acids/prote 1-30 [id number] [address] mouth [address] in 15:53: 3D (three) Hospita hydr/fiber 19 times a l (PRO-STAT day. RENAL CARE ORAL) senna 2018-03 Yes 2{tbl} Q12H Take 2 [facility] (SENOKOT) 1-[address] 8.6 mg 15:53: mouth [facility] tablet 19 every 12 l (twelve) hours. traMADol 2018-03 Yes [id number] 50mg Q6H Take 50 mg Me thodi [...] for l sleep. albuterol 2018-03 Yes 2.5mg Q.16984681 Take 2.5 [facility] sulfate 1-[id number] (PROVENTIL) 15:53: 3D nebulizati [...] OPHT) day. 0.4% albuterol 2018-03 Yes 2.5mg Q.27910966 Take 2.5 [facility] sulfate 1-[id number] (PROVENTIL) 15:53: 3D nebulizati Hospita 2.5 mg/0.5 19 on 3 l mL solution (three) for times a nebulizatio day as n needed (congestio n/cough). calcium 2018-03 Yes 2001mg Q.21247280 Take 2,001 [facility] acetate 1-[id number] (PHOSLO) 15:53: 3D mouth 3 Hospit a 667 mg 19 (three) l capsule times a day with meals. Give 15 minutes before meals clonIDINE 2018-03 Yes .2mg Q.57880996 Take 0.2 [facility] HCl 1-[id number] (CATAPRES) 15:53: 3D mouth [...] needed for pain LIDOCAINE 2018-03 Yes 1{appli Q.89843281 Apply 1 [facility] HCL TOP 1-30 cation} [id number] applicatio st 15:53: [facility] 19 [...] 19 l packet amino 2018-03 Yes 30mL Q.68371801 Take 30 mL [facility] acids/prote 1-30 3145546012 [address] mouth [address] in 15:53: 3D [...] MG tablet 22:13: daily. Medi ellyn 44 [place] zinc 2018-03 Yes 220mg QD Take [address] [facility] sulfate 1-21 mg [facility] (ZINCATE) 22:13: mouth Medical 220 (50) mg 44 daily. [place] capsule cetirizine 2018-03 Yes 10mg QD Take [address] (ZYRTEC) 10 1-21 by mouth [facility] MG tablet 22:13: daily. Medica l 44 [place] lidocaine 3 2018-03 Yes administrat 1{appli Apply [address] [facility] % Crea 1-21 ion of cation} applicatio Abbi ke 22:13: local n Medical [address] amLODIPine 2018-03 Yes hypertensio 5mg QD Take [address] [facility] (NORVASC) 1-21 n by [facility] 10 MG 22:13: daily. Medical tablet 44 [place] hydroxyprop 2018-03 Yes dry eye 1[drp] Q.5D Place [address] [facility] yl 1-21 drop into [facility] methylcellu 22:13: both eyes M edical lose 44 2 (two) [place] (ISOPTO times TEARS) 2.5 daily % Artificial ophthalmic tears solution solution 0.4% (hypromell ose) . aspirin 325 2018-03 Yes acute 325mg QD Take [address] [facility] MG tablet 1-21 myocardial mg by Mike es 22:13: infarction mouth Medica l 44 daily. [place] calcium 2018-03 Yes 667mg Q.53736679 Take [address] acetate 1-21 [id number] mg [facility] (PHOSLO) 22:13: 3D mouth 3 Medica l 667 mg 44 (three) Center capsule times daily. cloNIDine 2018-03 Yes hypertensio .2mg Q.20206809 Take 0.[address] [facility] HCl 1-21 n [id number] mg [facility] (CATAPRES) 22:13: 3D mouth [...] Center gram/dose powder amino 2018-03 Yes 30mL Q.81920180 Take [address] [facility] acids-prote 1-21 [id number] mLs [facility] in 22:13: 3D mouth [...] 44 daily. Center calcium 2018-03 Yes 667mg Q.28810823 Take [address] acetate 1-21 [id number] mg [facility] (PHOSLO) 22:13: 3D mouth 3 Medica l 667 mg 44 (three) Center capsule times daily. cloNIDine 2018-03 Yes hypertensio .2mg Q.55901530 Take 0.[address] [facility] [address] HCl 1-21 n [id number] mg [facility] (CATAPRES) 22:13: 3D mouth [...] Center gram/dose powder amino 2018-03 Yes 30mL Q.83523143 Take [address] [facility] acids-prote 1-21 5005754232 mLs by [facility] in 22:13: 3D mouth [...] 22:13: infarction mouth Medica l 44 daily. [place] calcium 2018-03 Yes 667mg Q.28173067 Take [address] acetate 1-21 [id number] mg [facility] (PHOSLO) 22:13: 3D mouth 3 Medica l 667 mg 44 (three) Center capsule times daily. cloNIDine 2018-03 Yes hypertensio .2mg Q.52240820 Take 0.[address] [facility] [address] HCl 1-21 n [id number] mg [facility] (CATAPRES) 22:13: 3D mouth [...] Center gram/dose powder amino 2018-03 Yes 30mL Q.09484880 Take [address] [facility] acids-prote 1-21 2664402749 mLs [facility] in 22:13: 3D mouth [...] 44 daily. Center calcium 2018-03 Yes 667mg Q.29554675 Take [address] acetate 1-21 [id number] mg [facility] (PHOSLO) 22:13: 3D mouth 3 Medica l 667 mg 44 (three) Center capsule times daily. cloNIDine 2018-03 Yes hypertensio .2mg Q.30676384 Take 0.[address] [address] HCl 1-21 n [id number] mg [facility] (CATAPRES) 22:13: 3D mouth [...] Center gram/dose powder amino 2018-03 Yes 30mL Q.34605286 Take [address] [facility] acids-prote 1-21 2903570211 mLs by [facility] in 22:13: 3D mouth [...] mouth Medical 220 (50) mg 44 daily. [place] capsule cetirizine 2018-03 Yes 10mg QD Take [...] 44 daily. Center calcium 2018-03 Yes 667mg Q.40146248 Take [address] acetate 1-21 [id number] mg [facility] (PHOSLO) 22:13: 3D mouth 3 Medica l 667 mg 44 (three) Center capsule times daily. cloNIDine 2018-03 Yes hypertensio .2mg Q.65446665 Take 0.[address] [facility] [address] HCl 1-21 n [id number] mg by [facility] (CATAPRES) 22:13: 3D mouth [...] Center gram/dose powder amino 2018-03 Yes 30mL Q.99571733 Take [address] [facility] acids-prote 1-21 1274066067 mLs by [facility] in 22:13: 3D mouth [...] mouth Medical 220 (50) mg 44 daily. [place] capsule cetirizine 2018-03 Yes 10mg QD Take [...] infarction mouth Medica l 44 daily. Center amLODIPine 2018-03 Yes hypertensio 5mg QD Take [address] [facility] (NORVASC) 1-21 n by [facility] 10 MG 22:13: daily. Medical tablet 44 Center calcium 2018-03 Yes 667mg Q.52741297 Take [address] acetate 1-21 [id number] mg [facility] (PHOSLO) 22:13: 3D mouth 3 Medica l 667 mg 44 (three) Center capsule times daily. cloNIDine 2018-03 Yes hypertensio .2mg Q.91110197 Take 0.[address] [address] HCl 1-21 n [id number] mg by [facility] (CATAPRES) 22:13: 3D mouth [...] Center gram/dose powder amino 2018-03 Yes 30mL Q.54419638 Take [address] [facility] [address] acids-prote 1-21 4002381739 mLs by [facility] in 22:13: 3D mouth [...] 44 daily. Center calcium 2018-03 Yes 667mg Q.14306984 Take [address] acetate 1-21 [id number] mg by [facility] (PHOSLO) 22:13: 3D mouth 3 Medica l 667 mg 44 (three) Center capsule times daily. aspirin 325 2018-03 Yes acute 325mg QD Take [address] [facility] [address] MG tablet 1-21 myocardial mg by Mike es 22:13: infarction mouth Medica l 44 daily. Center cloNIDine 2018-03 Yes hypertensio .2mg Q.45820023 Take 0.[address] [facility] [address] HCl 1-21 n [id number] mg by [facility] (CATAPRES) 22:13: 3D mouth [...] Center gram/dose powder amino 2018-03 Yes 30mL Q.98515343 Take [address] [facility] acids-prote 1-21 2445850617 mLs by [facility] in 22:13: 3D mouth [...] needed for Pain. calcium 2018-03 Yes 667mg Q.46661298 Take [address] acetate 1-21 [id number] mg by [facility] (PHOSLO) 22:13: 3D mouth [...] 44 daily. Center calcium 2018-03 Yes 667mg Q.46095270 Take [address] acetate 1-21 [id number] mg [facility] (PHOSLO) 22:13: 3D mouth 3 Medica l 667 mg 44 (three) Center capsule times daily. cloNIDine 2018-03 Yes hypertensio .2mg Q.57364517 Take 0.[address] HCl 1-21 n [id number] mg by [facility] (CATAPRES) 22:13: 3D mouth 3 Medi ellyn 0.2 MG 44 (three) Center tablet times daily. cloNIDine 2018-03 Yes hypertensio .2mg Q.43826490 Take 0.[address] HCl 1-21 n [id number] mg by [facility] (CATAPRES) 22:13: 3D mouth [...] Center gram/dose powder amino 2018-03 Yes 30mL Q.61860140 Take [address] [facility] acids-prote 1-21 0025565134 mLs by [facility] in 22:13: 3D mouth [...] 44 daily. Center calcium 2018-03 Yes 667mg Q.58300632 Take [address] acetate 1-21 [id number] mg [facility] (PHOSLO) 22:13: 3D mouth 3 Medica l 667 mg 44 (three) Center capsule times daily. cloNIDine 2018-03 Yes hypertensio .2mg Q.52672341 Take 0.[address] HCl 1-21 n [id number] mg by [facility] (CATAPRES) 22:13: 3D mouth [...] Center gram/dose powder amino 2018-03 Yes 30mL Q.22602392 Take [address] [facility] [address] acids-prote 1-21 9445912283 mLs by [facility] in 22:13: 3D mouth [...] mouth Medical 220 (50) mg 44 daily. [place] capsule cetirizine 2018-03 Yes 10mg QD Take [...] 44 daily. Center calcium 2018-03 Yes 667mg Q.76174790 Take [address] acetate 1-21 [id number] mg [facility] (PHOSLO) 22:13: 3D mouth 3 Medica l 667 mg 44 (three) Center capsule times daily. cloNIDine 2018-03 Yes hypertensio .2mg Q.74733633 Take 0.[address] HCl 1-21 n [id number] mg by [facility] (CATAPRES) 22:13: 3D mouth [...] Medical mL (15 mL) 44 Center solution melatonin 3 2018-03 Yes 3mg Take [address] mg Tab 21 by mouth [facility] tablet 22:13: every Medical 44 night as Center needed. lisinopril 2018-03 Yes 40mg QD Take [address] (PRINIVIL,Z 1-21 by mouth [facility] ESTRIL) 40 22:13: daily. Medic al MG tablet 44 [place] melatonin 3 2018-03 Yes 3mg Take 3 [...] Center gram/dose powder amino 2018-03 Yes 30mL Q.10489329 Take [address] [facility] acids-prote 1-21 0087102407 mLs by [facility] in 22:13: 3D mouth [...] mouth Medical 220 (50) mg 44 daily. [place] capsule omeprazole 2018-03 Yes 20mg QD Take [address] (PRILOSEC 1-21 by [facility] OTC) 20 MG 22:13: daily. Medic al tablet 44 [place] cetirizine 2018-03 Yes 10mg QD Take 10 [...] 44 daily. Center calcium 2018-03 Yes 667mg Q.62077510 Take [address] acetate 1-21 [id number] mg by [facility] (PHOSLO) 22:13: 3D mouth 3 Medica l 667 mg 44 (three) Center capsule times daily. cloNIDine 2018-03 Yes hypertensio .2mg Q.69854246 Take 0.[address] HCl 1-21 n [id number] mg by [facility] (CATAPRES) 22:13: 3D mouth [...] daily. Medic al MG tablet 44 Center polyethylen 2018-03 Yes 17g QD Take [address] e glycol 1-21 by [facility] (GLYCOLAX) 22:13: daily. Medic al 17 44 Center gram/dose powder melatonin 3 2018-03 Yes 3mg Take 3 [...] Center gram/dose powder amino 2018-03 Yes 30mL Q.62725810 Take [address] [facility] [address] acids-prote 1-21 6130639785 mLs by [facility] in 22:13: 3D mouth [...] tablet 22:13: daily. Medi ellyn 44 Center amLODIPine 2018-03 Yes hypertensio 5mg QD Take [...] infarction mouth Medica l 44 daily. Center zinc 2018-03 Yes 220mg QD Take [address] sulfate 1-21 mg by [facility] (ZINCATE) 22:13: mouth Medical 220 (50) mg 44 daily. Center capsule calcium 2018-03 Yes 667mg Q.64907561 Take [address] acetate 1-21 [id number] mg by [facility] (PHOSLO) 22:13: 3D mouth 3 Medica l 667 mg 44 (three) Center capsule times daily. cloNIDine 2018-03 Yes hypertensio .2mg Q.26402380 Take 0.[address] HCl 1-21 n [id number] mg by [facility] (CATAPRES) 22:13: 3D mouth [...] Center gram/dose powder amino 2018-03 Yes 30mL Q.21421405 Take [address] [facility] acids-prote 1-21 6586117316 mLs by [facility] in 22:13: 3D mouth 3 Medical hydr-fiber 44 (three) Center 15 gram- times 100 kcal/30 daily. mL LiPk senna 2018-03 Yes 2{tbl} Q.5D Take [address] [facility] (SENOKOT) 1-21 tablets by Luke [facility] 8.6 mg 22:13: mouth 2 Medical tablet 44 (two) Center times daily. cetirizine 2018-03 Yes 10mg QD Take [address] (ZYRTEC) 10 1-21 by mouth [facility] MG tablet 22:13: daily. Medica l 44 Center traMADol 2018-03 Yes 50mg Take 50 mg [...] n Medical [address] amino 2018-03 Yes 30mL Q.26111960 Take [address] [address] acids-prote 1-21 7759052281 mLs by [facility] in 22:13: 3D mouth 3 Medical hydr-fiber 44 (three) Center 15 gram- times 100 kcal/30 daily. mL LiPk lidocaine 3 2018-03 Yes administrat 1{appli Apply [...] 44 daily. Center calcium 2018-03 Yes 667mg Q.60002811 Take [address] acetate 1-21 [id number] mg by [facility] (PHOSLO) 22:13: 3D mouth 3 Medica l 667 mg 44 (three) Center capsule times daily. cloNIDine 2018-03 Yes hypertensio .2mg Q.73530784 Take 0.[address] HCl 1-21 n [id number] mg by [facility] (CATAPRES) 22:13: 3D mouth 3 Medi ellyn 0.2 MG 44 (three) Center tablet times daily. senna 2018-03 Yes 2{tbl} Q.5D Take [address] [facility] (SENOKOT) 1-21 tablets by [facility] 8.6 mg 22:13: mouth 2 Medical tablet 44 (two) Center times daily. carvedilol 2018-03 Yes hypertensio 25mg [...] Center gram/dose powder amino 2018-03 Yes 30mL Q.63322896 Take [address] [facility] acids-prote 1-21 8588415366 mLs by [facility] in 22:13: 3D mouth [...] tablet (six) hours as needed for Pain. traMADol 2018-03 Yes 50mg Take [address] [facility] (ULTRAM) 50 1-21 by mouth [facility] mg tablet 22:13: every 6 Medic al 44 (six) Center hours as needed for Pain. warfarin 2018-03 [...] 22:13: local n Medical 44 anesthesia topically. [facility] ter acetaminoph 2018-03 Yes 1000mg Take 1,000 [facility] [...] mouth Medical 220 (50) mg 44 daily. [place] capsule cetirizine 2018-03 Yes 10mg QD Take [address] (ZYRTEC) 10 1-21 by mouth [facility] MG tablet 22:13: daily. Medica l 44 [place] lidocaine 3 2018-03 Yes administrat 1{appli Apply [address] [facility] % Crea 1-21 ion of cation} applicatio kes 22:13: local n Medical 44 anesthesia topically. [facility] ter amLODIPine 2018-03 Yes hypertensio 5mg [...] 22:13: infarction mouth Medica l 44 daily. [place] calcium 2018-03 Yes 667mg Q.94295344 Take [address] acetate 1-21 [id number] mg by [facility] (PHOSLO) 22:13: 3D mouth 3 Medica l 667 mg 44 (three) Center capsule times daily. cloNIDine 2018-03 Yes hypertensio .2mg Q.87213721 Take 0.[address] HCl 1-21 n [id number] mg by [facility] (CATAPRES) 22:13: 3D mouth [...] Center gram/dose powder amino 2018-03 Yes 30mL Q.71863521 Take [address] [facility] acids-prote 1-21 7239380426 mLs by [facility] in 22:13: 3D mouth [...] 44 daily. Center calcium 2018-03 Yes 667mg Q.15784056 Take [address] acetate 1-21 [id number] mg by [facility] (PHOSLO) 22:13: 3D mouth 3 Medica l 667 mg 44 (three) Center capsule times daily. cloNIDine 2018-03 Yes hypertensio .2mg Q.36249590 Take 0.[address] HCl 1-21 n [id number] mg by [facility] (CATAPRES) 22:13: 3D mouth [...] Center gram/dose powder amino 2018-03 Yes 30mL Q.85454623 Take [address] [facility] acids-prote 1-21 2939488853 mLs by [facility] in 22:13: 3D mouth 3 Medical hydr-fiber 44 (three) Center 15 gram- times 100 kcal/30 daily. mL LiPk senna 2018-03 Yes 2{tbl} Q.5D Take [address] [facility] (SENOKOT) 1-21 tablets by Luke [facility] 8.6 mg 22:13: mouth 2 Medical tablet 44 (two) Center times daily. aspirin 81 2018- Yes 81mg Take 1 [...] mouth [place] 00 daily. Medical Branch amLODIPine 2017-0 Yes 10mg Take 1 Unive rs 10 mg 1-25 tablet by ity of tablet 00:00: mouth [place] 00 daily. Medical Branch atorvastati 2017-0 Yes 40mg Take 1 [facility] ers n [...] Medical (eight) Branch hours. isosorbide 2018-0 Yes [id number] 30mg Take 1 [facility] mononitrate 1-25 tablet [...] Medical (eight) Branch hours. isosorbide 2018-0 Yes [id number] 30mg Take 1 [facility] mononitrate 1-25 tablet [...] Medical (eight) Branch hours. isosorbide 2018-0 Yes [id number] 30mg Take 1 [facility] mononitrate 1-25 tablet [...] Medical (eight) Branch hours. isosorbide 2018-0 Yes [id number] 30mg Take 1 [facility] mononitrate 1-25 tablet [...] Medical (eight) Branch hours. isosorbide 2018-0 Yes [id number] 30mg Take 1 [facility] mononitrate 1-25 tablet [...] Medical (eight) Branch hours. isosorbide 2018-0 Yes [id number] 30mg Take 1 [facility] mononitrate 1-25 tablet [...] Medical (eight) Branch hours. isosorbide 2018-0 Yes [id number] 30mg Take 1 [facility] mononitrate 1-25 tablet [...] Medical (eight) Branch hours. isosorbide 2018-0 Yes [id number] 30mg Take 1 [facility] mononitrate 1-25 tablet [...] 00:00: mouth [place] 00 daily. Medical Branch hydralAZINE 2018-0 Yes 10mg Take 1 [facility] ers 10 mg 1-25 tablet by ity of tablet 00:00: mouth [place] 00 every 8 Medical (eight) Branch hours. isosorbide 2018-0 Yes [id number] 30mg Take 1 [facility] mononitrate 1-25 tablet by ity of (IMDUR) 30 00:00: mouth [place] mg 24 hr 00 daily. Medical tablet Branch sevelamer 2018-0 Yes 1600mg Take 2 [facility] ers 800 mg 1-25 tablets by ity of tablet 00:00: mouth 3 [place] 00 (three) Medical times Branch daily with meals. amLODIPine 2018-0 Yes 10mg Take 1 Unive [...] Medical (eight) Branch hours. isosorbide 2018-0 Yes [id number] 30mg Take 1 [facility] mononitrate 1-25 tablet by ity of (IMDUR) 30 00:00: mouth [place] mg 24 hr 00 daily. Medical tablet Branch amLODIPine 2018-0 Yes 10mg Take 1 [...] (two) Medical times Branch daily with meals. sevelamer 2018-0 Yes 1600mg Take 2 Univ ers 800 mg 1-25 tablets by ity of tablet 00:00: mouth 3 [place] 00 (three) Medical times Branch daily with meals. hydralAZINE 2018-0 Yes 10mg Take 1 [facility] ers 10 mg 1-25 tablet by ity of tablet 00:00: mouth [place] 00 every 8 Medical (eight) Branch hours. isosorbide 2018-0 Yes [id number] 30mg Take 1 [facility] mononitrate 1-25 tablet by ity of (IMDUR) 30 00:00: mouth [place] mg 24 hr 00 daily. Medical tablet Branch sevelamer 2018-0 Yes 1600mg Take 2 Univ ers 800 mg 1-25 tablets by ity of tablet 00:00: mouth 3 [place] 00 (three) Medical times Branch daily with meals. amLODIPine 2018-0 Yes 10mg Take 1 Unive [...] Medical (eight) Branch hours. isosorbide 2018-0 Yes [id number] 30mg Take 1 [facility] mononitrate 1-25 tablet by ity of (IMDUR) 30 00:00: mouth [place] mg 24 hr 00 daily. Medical tablet Branch sevelamer 2018-0 Yes 1600mg Take 2 Univ ers 800 mg 1-25 tablets by ity of tablet 00:00: mouth 3 (three) Medical times Branch daily with meals. pantoprazol 2018-0 2022- No 40mg Take 1 Uni vers e 40 mg EC 1-25 03-09 tablet by ity of tablet 00:00: 00:00 mouth [place] 00 :00 daily. Medical Branch magnesium 2017-0 Yes 800mg Take 2 Unive [...] daily. ergocalcife ergocalcife No ergocalcif [facility] Medical (vitamin (vitamin (vitamin D2) [...] nasal mcg/actuat spray,suspe spray,suspe ion nasal nsion [place] nsion [place] spray,susp 1 spray 1 spray ension every day every day [place] 1 by nasal by nasal spray route [...] once a day dialysis dialysis at dialysis [facility] No [facility] [place] via 8.4 gram 8.4 gram 8.4 [...] nasal mcg/actuat spray,suspe spray,suspe ion nasal nsion [place] nsion [place] spray,susp 1 spray 1 spray ension every day every day [place] 1 by nasal by nasal spray route [...] once a day dialysis dialysis at dialysis [facility] No [facility] [place] via 8.4 gram 8.4 gram 8.4 [...] l route. ergocalcife ergocalcife No ergocalcif [facility] (vitamin (vitamin (vitamin D2) 1,250 D2) 1,250 [...] nasal mcg/actuat spray,suspe spray,suspe ion nasal nsion [place] nsion [place] spray,susp 1 spray 1 spray ension every day every day [place] 1 by nasal by nasal spray route [...] once a day dialysis dialysis at dialysis [facility] No [facility] [place] via 8.4 gram 8.4 gram 8.4 [...] nasal mcg/actuat spray,suspe spray,suspe ion nasal nsion [place] nsion [place] spray,susp 1 spray 1 spray ension every day every day [place] 1 by nasal by nasal spray route [...] nasal mcg/actuat spray,suspe spray,suspe ion nasal nsion [place] nsion [place] spray,susp 1 spray 1 spray ension every day every day [place] 1 by nasal by nasal spray route [...] nasal mcg/actuat spray,suspe spray,suspe ion nasal nsion [place] nsion [place] spray,susp 1 spray 1 spray ension every day every day [place] 1 by nasal by nasal spray route [...] a 1 gram day on day on once a day to be given to be given on to at at be given dialysis. 2 dialysis. 2 at gram once a gram once a dialysis. day on F to day on to 2 gram be given at be given at once a day dialysis. dialysis. on to be given at dialysis. clonidine clonidine [...] nasal mcg/actuat spray,suspe spray,suspe ion nasal nsion [place] nsion [place] spray,susp 1 spray 1 spray ension every day every day [place] 1 by nasal by nasal spray route [...] once a day dialysis dialysis at dialysis [facility] No [facility] [place] via 8.4 gram 8.4 gram 8.4 [...] nasal mcg/actuat spray,suspe spray,suspe ion nasal nsion [place] nsion [place] spray,susp 1 spray 1 spray ension every day every day [place] 1 by nasal by nasal spray route [...] at once a day dialysis dialysis at [facility] [place] [place] via 8.4 gram 8.4 [...] nasal mcg/actuat spray,suspe spray,suspe ion nasal nsion [place] nsion [place] spray,susp 1 spray 1 spray ension every day every day [place] 1 by nasal by nasal spray route [...] once a day dialysis dialysis at dialysis [facility] No [facility] [place] via 8.4 gram 8.4 gram 8.4 [...] nasal mcg/actuat spray,suspe spray,suspe ion nasal nsion [place] nsion [place] spray,susp 1 spray 1 spray ension every day every day [place] 1 by nasal by nasal spray route [...] Tu, Thur, Sat Thur, Sat Thur, Sat omeprazole [...] nasal mcg/actuat spray,suspe spray,suspe ion nasal nsion [place] nsion [place] spray,susp 1 spray 1 spray ension every day every day [place] 1 by nasal by nasal spray route [...] for 30 days. [place] via 8.4 gram 8.4 gram 8.4 gram [...] nasal mcg/actuat spray,suspe spray,suspe ion nasal nsion [place] nsion [place] spray,susp 1 spray 1 spray ension every day every day [place] 1 by nasal by nasal spray route [...] nasal mcg/actuat spray,suspe spray,suspe ion nasal nsion [place] nsion [place] spray,susp 1 spray 1 spray ension every day every day [place] 1 by nasal by nasal spray route [...] nasal mcg/actuat spray,suspe spray,suspe ion nasal nsion [place] nsion [place] spray,susp 1 spray 1 spray ension every day every day [place] 1 by nasal by nasal spray route [...] nasal mcg/actuat spray,suspe spray,suspe ion nasal nsion [place] nsion [place] spray,susp 1 spray 1 spray ension every day every day [place] 1 by nasal by nasal spray route [...] nasal mcg/actuat spray,suspe spray,suspe ion nasal nsion [place] nsion [place] spray,susp 1 spray 1 spray ension every day every day [place] 1 by nasal by nasal spray route [...] nasal mcg/actuat spray,suspe spray,suspe ion nasal nsion [place] nsion [place] spray,susp 1 spray 1 spray ension every day every day [place] 1 by nasal by nasal spray route [...] nasal mcg/actuat spray,suspe spray,suspe ion nasal nsion [place] nsion [place] spray,susp 1 spray 1 spray ension every day every day [place] 1 by nasal by nasal spray route [...] Tues, Sun, Tues, Thur, Sat Thur, Sat ur, Sat sertraline sertraline No 1 Q1D sertraline [...] nasal mcg/actuat spray,suspe spray,suspe ion nasal nsion [place] nsion [place] spray,susp 1 spray 1 spray ension every day every day [place] 1 by nasal by nasal spray route [...] nasal mcg/actuat spray,suspe spray,suspe ion nasal nsion [place] nsion [place] spray,susp 1 spray 1 spray ension every day every day [place] 1 by nasal by nasal spray route [...] nasal mcg/actuat spray,suspe spray,suspe ion nasal nsion [place] nsion [place] spray,susp 1 spray 1 spray ension every day every day [place] 1 by nasal by nasal spray route [...] nasal mcg/actuat spray,suspe spray,suspe ion nasal nsion [place] nsion [place] spray,susp 1 spray 1 spray ension every day every day [place] 1 by nasal by nasal spray route [...] nasal mcg/actuat spray,suspe spray,suspe ion nasal nsion [place] nsion [place] spray,susp 1 spray 1 spray ension every day every day [place] 1 by nasal by nasal spray route [...] nasal mcg/actuat spray,suspe spray,suspe ion nasal nsion [place] nsion [place] spray,susp 1 spray 1 spray ension every day every day [place] 1 by nasal by nasal spray route [...] nasal mcg/actuat spray,suspe spray,suspe ion nasal nsion [place] nsion [place] spray,susp 1 spray 1 spray ension every day every day [place] 1 by nasal by nasal spray route [...] nasal mcg/actuat spray,suspe spray,suspe ion nasal nsion [place] nsion [place] spray,susp 1 spray 1 spray ension every day every day [place] 1 by nasal by nasal spray route [...] on non days fri, days fri, dialysis ur, sat thur, sat days fri, , sat [...] nasal mcg/actuat spray,suspe spray,suspe ion nasal nsion [place] nsion [place] spray,susp 1 spray 1 spray ension every day every day [place] 1 by nasal by nasal spray route [...] nasal mcg/actuat spray,suspe spray,suspe ion nasal nsion [place] nsion [place] spray,susp 1 spray 1 spray ension every day every day [place] 1 by nasal by nasal spray route [...] nasal mcg/actuat spray,suspe spray,suspe ion nasal nsion [place] nsion [place] spray,susp 1 spray 1 spray ension every day every day [place] 1 by nasal by nasal spray route [...] nasal mcg/actuat spray,suspe spray,suspe ion nasal nsion [place] nsion [place] spray,susp 1 spray 1 spray ension every day every day [place] 1 by nasal by nasal spray route [...] once a day dialysis dialysis at dialysis [facility] [place] via 8.4 gram 8.4 gram 8.4 [...] Immunizations Ordered Filled Immunization Date Status Comments [facility] e Immunization Name Name pneumococcal, pneumococcal, 2021-03-06 Completed [facility] unspecified unspecified 00:00:00 formulation formulation pneumococcal, pneumococcal, 2021-03-06 Completed [facility] unspecified unspecified 00:00:00 formulation formulation pneumococcal, [...] 2016-07-03 Completed [facility] Polys[facility], 00:[facility] [place] [facility] PPSV23 (PNEUMOVAX) [place] Influenza Virus 2016-07-03 Completed [facility]it y of Vaccine Quad IM 3+ 00:00:00 [facility] Pneumococcal 2016-07-03 Completed [facility] o f Polysaccharide, 00:00:00 [place] [facility] PPSV23 (PNEUMOVAX) [facility] Influenza Virus 2016-07-03 Completed [facility] Vaccine [facility] IM 3+ 00:00:00 [facility] Pneumococcal 2016-07-03 Completed [facility] o f Polysaccharide, 00:00:00 [place] [facility] PPSV23 (PNEUMOVAX) [facility] Influenza Virus 2016-07-03 Completed [facility] Vaccine [facility] IM 3+ 00:00:00 [facility] Pneumococcal 2016-07-03 Completed [facility] o f Polysaccharide, 00:00:00 [place] [facility] PPSV23 (PNEUMOVAX) [facility] Influenza Virus 2016-07-03 Completed [facility]it [facility] of Vaccine Quad IM 3+ 00:00:00 [facility] Pneumococcal 2016-07-03 Completed [facility] o f Polysaccharide, 00:00:00 [place] [facility] PPSV23 (PNEUMOVAX) [facility] Influenza Virus 2016-07-03 Completed [facility]it [facility] of Vaccine [facility] IM 3+ 00:00:00 [facility] Pneumococcal 2016-07-03 Completed [facility] o f Polysaccharide, 00:00:00 [place] [facility] PPSV23 (PNEUMOVAX) [facility] Influenza Virus 2016-07-03 Completed [facility]it [facility] of Vaccine Quad IM 3+ 00:00:00 [facility] Pneumococcal 2016-07-03 Completed [facility] o f Polysaccharide, 00:00:00 [place] [facility] PPSV23 (PNEUMOVAX) [facility] Influenza Virus 2016-07-03 Completed [facility]it [facility] of Vaccine [facility] IM 3+ 00:00:00 [facility] Pneumococcal 2016-07-03 Completed [facility] o f Polysaccharide, 00:00:00 [place] [facility] PPSV23 (PNEUMOVAX) [facility] Influenza Virus 2016-07-03 Completed [facility]it [facility] of Vaccine Quad IM 3+ 00:00:00 [facility] Pneumococcal 2016-07-03 Completed [facility] o f Polysaccharide, 00:00:00 [place] [facility] PPSV23 (PNEUMOVAX) [facility] Influenza Virus 2016-07-03 Completed [facility]it y of Vaccine Quad IM 3+ 00:00:00 [facility] Pneumococcal 2016-07-03 Completed [facility] o f Polysaccharide, 00:00:00 [place] [facility] PPSV23 (PNEUMOVAX) [facility] Influenza Virus 2016-07-03 Completed [facility]it y of Vaccine Quad IM 3+ 00:00:00 [facility] Pneumococcal 2016-07-03 Completed [facility] o f Polysaccharide, 00:00:00 [place] [facility] PPSV23 (PNEUMOVAX) [facility] Influenza Virus 2016-07-03 Completed [facility]it [facility] of Vaccine Quad IM 3+ 00:00:00 [facility] Pneumococcal 2016-07-03 Completed [facility] o f Polysaccharide, 00:00:00 [place] [facility] PPSV23 (PNEUMOVAX) [facility] Influenza Virus 2016-07-03 Completed [facility]it y of Vaccine Quad IM 3+ 00:00:00 [facility] Vital Signs Vital Name Observation Time Observation Value Comments Source Systolic blood 2022-06-06 21:50:00 166 mm[Hg] Univer sity of pressure [facility] Diastolic blood 2022-06-06 21:50:00 85 mm[Hg] Unive rsity of pressure [facility] Heart rate 2022-06-06 21:50:00 74 /min [facility] Body temperature 2022-06-06 21:50:00 36.44 [facility] rate 2022-06-06 21:50:00 18 /min [facility] Oxygen saturation in 2022-06-06 21:50:00 98 /min [facility] Arterial blood by [facility] Pulse oximetry Branch Body weight 2022-06-05 17:48:00 76.2 kg [facility] [place] [facility] BMI 2022-06-05 17:48:00 25.54 kg/m2 [facility] Body height 2022-06-04 09:14:00 172.7 cm [facility] Systolic blood 2022-06-05 18:31:00 149 mm[Hg] Univer sity of pressure [facility] Diastolic blood 2022-06-05 18:31:00 100 mm[Hg] Unive rsity of pressure [facility] Heart rate 2022-06-05 18:31:00 72 /min [facility] [place] [facility] Body temperature 2022-06-05 18:31:00 36.78 Lazara [facility] Respiratory rate 2022-06-05 18:31:00 19 /min [facility] Oxygen saturation in 2022-06-05 18:31:00 96 /min University of Arterial blood by [employer] Pulse oximetry Branch Body weight 2022-06-05 17:48:00 76.2 kg [facility] BMI 2022-06-05 17:48:00 25.54 kg/m2 [facility] Body height 2022-06-04 09:14:00 172.7 cm [facility] [place] [facility] Systolic blood 2022-05-28 09:31:00 107 mm[Hg] Univer sity of pressure [facility] Diastolic blood 2022-05-28 09:31:00 38 mm[Hg] Unive rsity of pressure [facility] Heart rate 2022-05-28 09:31:00 96 /min [facility] Body temperature 2022-05-28 09:31:00 37.11 Lazara [facility] Respiratory rate 2022-05-28 09:31:00 18 /min Univ [facility] Oxygen saturation in 2022-05-28 09:31:00 96 /min University of Arterial blood by [employer] ellyn Pulse oximetry Branch Body weight 2022-05-27 23:46:00 71 kg [facility] BMI 2022-05-27 23:46:00 23.80 kg/m2 [facility] Body height 2022-05-15 21:25:00 172.7 cm [facility] Systolic blood 2022-05-22 14:30:00 115 mm[Hg] Univer sity of pressure [facility] Diastolic blood 2022-05-22 14:30:00 80 mm[Hg] Unive rsity of pressure [facility] Heart rate 2022-05-22 14:30:00 82 /min [facility] Body temperature 2022-05-22 14:30:00 36.22 [facility] Respiratory rate 2022-05-22 14:30:00 20 /min [facility] Oxygen saturation in 2022-05-22 10:17:00 99 /min [facility] Arterial blood by [facility] Pulse oximetry Branch Body weight 2022-05-21 17:05:00 69 kg [facility] BMI 2022-05-21 17:05:00 23.97 kg/m2 [facility] Body height 2022-05-15 21:25:00 172.7 cm [facility] BP Diastolic 2022-04-30 00:00:00 89 mm[Hg] [facility] Height 2022-04-30 00:00:00 66 [in_i] [facility] BMI (Body Mass 2022-04-30 00:00:00 27.8 kg/m2 [facility] Medical Index) BP Systolic 2022-04-30 00:00:00 155 mm[Hg] [facility] Body Weight 2022-04-30 00:00:00 2752 [oz_av] [facility] BP Diastolic 2022-04-16 00:00:00 82 mm[Hg] [facility] Height 2022-04-16 00:00:00 66 [in_i] [facility] BMI (Body Mass 2022-04-16 00:00:00 27.1 kg/m2 [facility] Medical Index) BP Systolic 2022-04-16 00:00:00 147 mm[Hg] [facility] Body Weight 2022-04-16 00:00:00 2688 [oz_av] [facility] BP Diastolic 2022-04-02 00:00:00 97 mm[Hg] [facility] Height 2022-04-02 00:00:00 66 [in_i] [facility] BMI (Body Mass 2022-04-02 00:00:00 28.4 kg/m2 [facility]) BP Systolic 2022-04-02 00:00:00 157 mm[Hg] [facility] Body Weight 2022-04-02 00:00:00 2816 [oz_av] [facility] BP Diastolic 2022-03-12 00:00:00 88 mm[Hg] [facility] Height 2022-03-12 00:00:00 66 [in_i] [facility] BMI (Body Mass 2022-03-12 00:00:00 26.8 kg/m2 [facility]) BP Systolic 2022-03-12 00:00:00 139 mm[Hg] [facility] Body Weight 2022-03-12 00:00:00 2656 [oz_av] [facility] BP Diastolic 2022-03-05 00:00:00 85 mm[Hg] [facility] Height 2022-03-05 00:00:00 66 [in_i] [facility] BMI (Body Mass 2022-03-05 00:00:00 27.8 kg/m2 [facility]) BP Systolic 2022-03-05 00:00:00 158 mm[Hg] [facility] Body Weight 2022-03-05 00:00:00 2752 [oz_av] [facility] BP Diastolic 2022-02-19 00:00:00 79 mm[Hg] [facility] Height 2022-02-19 00:00:00 66 [in_i] [facility] BMI (Body Mass 2022-02-19 00:00:00 27.9 [facility]m2 [facility]) BP Systolic 2022-02-19 00:00:00 152 mm[Hg] [facility] Body Weight 2022-02-19 00:00:00 2768 [oz_av] [facility] BP Diastolic 2022-02-05 00:00:00 80 mm[Hg] [facility] Height 2022-02-05 00:00:00 66 [in_i] [facility] BMI (Body Mass 2022-02-05 00:00:00 27.8 kg/m2 [facility] Index) BP Systolic 2022-02-05 00:00:00 144 mm[Hg] [facility] Body Weight 2022-02-05 00:00:00 2752 [oz_av] [facility] BP Diastolic 2022-01-18 00:00:00 77 mm[Hg] [facility] Height 2022-01-18 00:00:00 66 [in_i] [facility] BMI (Body Mass 2022-01-18 00:00:00 27.3 kg/m2 [facility] Medical Index) BP Systolic 2022-01-18 00:00:00 138 mm[Hg] [facility] Body Weight 2022-01-18 00:00:00 2704 [oz_av] [facility] BP Diastolic 2022-01-04 00:00:00 89 mm[Hg] [facility] Height 2022-01-04 00:00:00 66 [in_i] [facility] BMI (Body Mass 2022-01-04 00:00:00 28.1 kg/m2 [facility] Index) BP Systolic 2022-01-04 00:00:00 149 mm[Hg] [facility] Body Weight 2022-01-04 00:00:00 2784 [oz_av] [facility] Systolic blood 2021-12-25 18:44:00 146 mm[Hg] Univer sity of pressure [facility] Diastolic blood 2021-12-25 18:44:00 96 mm[Hg] Unive rsity of pressure [facility] Heart rate 2021-12-25 18:44:00 70 /min [facility] Body height 2021-12-25 18:34:00 [facility] 2021-12-25 18:34:00 [facility]423 [facility] BMI 2021-12-25 18:34:00 26.96 [facility]2 [facility] O[facility] in 2021-12-25 18:34:00 97 /min [facility] blood by [facility] Pulse oximetry Branch BP Diastolic 2021-12-25 00:00:00 75 mm[Hg] [facility] Height 2021-12-25 00:00:00 66 [in_i] [facility] BMI (Body Mass 2021-12-25 00:00:00 28.4 kg/m2 [facility] BP Systolic 2021-12-25 00:00:00 147 mm[Hg] [facility] Body Weight 2021-12-25 00:00:00 2816 [oz_av] [facility] BP Diastolic 2021-12-11 00:00:00 89 mm[Hg] [facility] Height 2021-12-11 00:00:00 66 [in_i] [facility] BMI (Body Mass 2021-12-11 00:00:00 28.2 kg/m2 [facility]) BP Systolic 2021-12-11 00:00:00 139 mm[Hg] [facility] Body Weight 2021-12-11 00:00:00 2792 [oz_av] [facility] BP Diastolic 2021-11-23 00:00:00 67 mm[Hg] [facility] Height 2021-11-23 00:00:00 66 [in_i] [facility] BMI (Body Mass 2021-11-23 00:00:00 27.8 kg/m2 [facility]) BP Systolic 2021-11-23 00:00:00 134 mm[Hg] [facility] Body Weight 2021-11-23 00:00:00 2752 [oz_av] [facility] BP Diastolic 2021-11-20 00:00:00 85 mm[Hg] [facility] Height 2021-11-20 00:00:00 66 [in_i] [facility] BMI (Body Mass 2021-11-20 00:00:00 27.9 kg/m2 [facility]) BP Systolic 2021-11-20 00:00:00 149 mm[Hg] [facility] Body Weight 2021-11-20 00:00:00 2768 [oz_av] [facility] BP Diastolic 2021-11-08 00:00:00 95 mm[Hg] [facility] Height 2021-11-08 00:00:00 66 [in_i] [facility] BMI (Body Mass 2021-11-08 00:00:00 27.8 kg/m2 [facility]) BP Systolic 2021-11-08 00:00:00 165 mm[Hg] [facility] Body Weight 2021-11-08 00:00:00 2752 [oz_av] [facility] BP Diastolic 2021-11-02 00:00:00 75 mm[Hg] [facility] Height 2021-11-02 00:00:00 66 [in_i] [facility] BMI (Body Mass 2021-11-02 00:00:00 27.4 kg/m2 [facility]) BP Systolic 2021-11-02 00:00:00 138 mm[Hg] [facility] Body Weight 2021-11-02 00:00:00 2720 [oz_av] [facility] BP Diastolic 2021-10-19 00:00:00 77 mm[Hg] [facility] Height 2021-10-19 00:00:00 66 [in_i] [facility] BMI (Body Mass 2021-10-19 00:00:00 28.2 kg/m2 [facility]) BP Systolic 2021-10-19 00:00:00 136 mm[Hg] [facility] Body Weight 2021-10-19 00:00:00 2800 [oz_av] [facility] BP Diastolic 2021-10-12 00:00:00 74 mm[Hg] [facility] Height 2021-10-12 00:00:00 66 [in_i] [facility] BMI (Body Mass 2021-10-12 00:00:00 28.2 kg/m2 [facility]) BP Systolic 2021-10-12 00:00:00 139 [...] BMI (Body Mass 2021-09-26 00:00:00 29.4 kg/m2 [facility]) BP Systolic 2021-09-26 00:00:00 135 mm[Hg] [facility] Body Weight 2021-09-26 00:00:00 2912 [oz_av] [facility] BP Diastolic 2021-09-13 00:00:00 92 mm[Hg] [facility] Height 2021-09-13 00:00:00 66 [in_i] [facility] BMI (Body Mass 2021-09-13 00:00:00 13.2 kg/m2 [facility]) BP Systolic 2021-09-13 00:00:00 153 mm[Hg] [facility] Body Weight 2021-09-13 00:00:00 1304 [oz_av] [facility] BP Diastolic 2021-09-04 00:00:00 78 mm[Hg] [facility] Height 2021-09-04 00:00:00 66 [in_i] [facility] BMI (Body Mass 2021-09-04 00:00:00 28.9 kg/m2 [facility]) BP Systolic 2021-09-04 00:00:00 [...] BMI (Body Mass 2021-08-14 00:00:00 29.5 kg/m2 [facility] Index) BP Systolic 2021-08-14 00:00:00 136 mm[Hg] [facility] Body Weight 2021-08-14 00:00:00 2928 [oz_av] [facility] BP Diastolic 2021-08-10 00:00:00 75 mm[Hg] [facility] Height 2021-08-10 00:00:00 66 [in_i] [facility] BMI (Body Mass 2021-08-10 00:00:00 29.2 kg/m2 [facility] Index) BP Systolic 2021-08-10 00:00:00 131 mm[Hg] [facility] Body Weight 2021-08-10 00:00:00 2896 [oz_av] [facility] BP Diastolic 2021-07-31 00:00:00 78 mm[Hg] [facility] Height 2021-07-31 00:00:00 66 [in_i] [facility] BMI (Body Mass 2021-07-31 00:00:00 28.6 kg/m2 [facility] Index) BP Systolic 2021-07-31 00:00:00 137 mm[Hg] [facility] Body Weight 2021-07-31 00:00:00 2832 [oz_av] [facility] BP Diastolic 2021-07-27 00:00:00 75 mm[Hg] [facility] Height 2021-07-27 00:00:00 66 [in_i] [facility] BMI (Body Mass 2021-07-27 00:00:00 29.7 kg/m2 [facility] Index) BP Systolic 2021-07-27 00:00:00 133 mm[Hg] [facility] Body Weight 2021-07-27 00:00:00 2944 [oz_av] [facility] BP Diastolic 2021-07-19 00:00:00 88 mm[Hg] [facility] Height 2021-07-19 00:00:00 66 [in_i] [facility] BMI (Body Mass 2021-07-19 00:00:00 29.5 kg/m2 [facility] Index) BP Systolic 2021-07-19 00:00:00 140 mm[Hg] [facility] Body Weight 2021-07-19 00:00:00 2928 [oz_av] [facility] BP Diastolic 2021-07-12 00:00:00 80 mm[Hg] [facility] Height 2021-07-12 00:00:00 66 [in_i] [facility] BMI (Body Mass 2021-07-12 00:00:00 29.5 kg/m2 [facility] Index) BP Systolic 2021-07-12 00:00:00 136 mm[Hg] [facility] Body Weight 2021-07-12 00:00:00 2928 [oz_av] [facility] Height 2019-02-20 00:00:00 68 [in_i] [facility] Height 2018-11-13 00:00:00 68 [in_i] [facility] Height 2018-10-25 00:00:00 68 [in_i] [facility] Height 2018-09-04 00:00:00 68 [in_i] [facility] Systolic blood 2022-05-17 17:35:00 121 mm[Hg] Univer sity of pressure [facility] Diastolic blood 2022-05-17 17:35:00 59 mm[Hg] [facility] Heart rate 2022-05-17 17:35:00 74 /min [facility] Body temperature 2022-05-17 17:35:00 35.72 [facility] 2022-05-17 17:35:00 18 /min [facility] Oxygen saturation in 2022-05-17 17:35:00 100 /min [facility] Arterial blood by [facility] Pulse oximetry Branch Body weight 2022-05-17 00:46:00 69 kg [facility] BMI 2022-05-17 00:46:00 23.13 kg/m2 [facility] Body height 2022-05-15 21:25:00 172.7 cm [facility] Body height 2022-01-22 19:04:00 172.7 cm [facility] Body weight 2022-01-22 19:04:00 78.2 kg [facility] BMI 2022-01-22 19:04:00 26.21 kg/m2 [facility] Oxygen saturation in 2022-01-22 19:04:00 95 /min [facility] Arterial blood by Pulse oximetry Systolic blood 2022-01-22 19:04:00 146 mm[Hg] [facility] pressure Diastolic blood 2022-01-22 19:04:00 81 mm[Hg] [facility] pressure Heart rate 2022-01-22 19:04:00 85 /min [facility] Body temperature 2022-01-22 19:04:00 36.56 Lazara [facility] Oxygen saturation in 2021-12-18 20:47:00 98 /min [facility] Arterial blood by Pulse oximetry Systolic blood 2021-12-18 20:16:00 152 mm[Hg] [facility] pressure Diastolic blood 2021-12-18 20:16:00 75 mm[Hg] [facility] pressure Heart rate 2021-12-18 20:16:00 82 /min [facility] Body temperature 2021-12-18 16:16:11 36.72 Lazara [facility] Respiratory rate 2021-12-18 16:16:11 18 /min [facility] Body weight 2021-12-18 11:11:31 85.14 kg [facility] BMI 2021-12-18 11:11:31 28.54 kg/m2 [facility] Body height 2021-12-13 19:32:00 172.7 cm [facility] Procedures Procedure Date / Time Performing Source Performed Clinician CBC WITHOUT DIFF 2022-06-06 Leroy Murray [facility] 23:47:00 [facility] MAGNESIUM 2022-06-06 [facility] 10:55:00 [facility] BASIC METABOLIC PANEL (NA, K, CL, 2022-06-06 [facility] [place] of CO2, GLUCOSE, BUN, CREATININE, CA) 10:55:00 [facility] CBC WITH DIFF 2022-06-06 [facility] 10:55:00 [facility] MAGNESIUM 2022-06-06 [facility] 10:55:00 [facility] BASIC METABOLIC PANEL (NA, K, CL, 2022-06-06 [facility] [place] of CO2, GLUCOSE, BUN, CREATININE, CA) 10:55:00 [facility] CBC WITH DIFF 2022-06-06 [facility] 10:55:00 [facility] SURGICAL PATHOLOGY EXAM 2022-06-05 [facility] ty of 19:19:00 [facility] ESOPHAGOGASTRODUODENOSCOPY 2022-06-05 [facility] rs[facility] of 18:44:00 [facility] ESOPHAGOGASTRODUODENOSCOPY 2022-06-05 [facility] of 18:44:00 [facility] EGD (ENDO) 2022-06-05 [facility] 18:37:53 [facility] EGD (ENDO) 2022-06-05 [facility] 18:37:53 [facility] MAGNESIUM 2022-06-05 [facility] 10:06:00 [facility] BASIC METABOLIC PANEL (NA, K, CL, 2022-06-05 [facility] of CO2, GLUCOSE, BUN, CREATININE, CA) 10:06:00 [facility] IRON PANEL 2022-06-05 [facility] 10:06:00 [facility] CBC WITH DIFF 2022-06-05 [facility], [facility] of 10:06:00 [facility] MAGNESIUM 2022-06-05 [facility], [facility] 10:06:00 [facility] BASIC METABOLIC PANEL (NA, K, CL, 2022-06-05 [facility], [facility] of CO2, GLUCOSE, BUN, CREATININE, CA) 10:06:00 [facility] IRON PANEL 2022-06-05 [facility] 10:06:00 [facility] CBC WITH DIFF 2022-06-05 Jennifer Arce [facility] 10:06:00 [facility] XR CHEST 1 VW 2022-06-04 [facility] 18:43:00 [facility] XR CHEST 1 VW 2022-06-04 [facility] 18:43:00 [facility] HB ABO GROUPING 2022-06-04 [facility] of 13:58:00 [facility] HB ABO GROUPING 2022-06-04 [facility] of 13:58:00 [facility] POCT GLUCOSE (AUTOMATED) 2022-06-04 [facility] 13:57:00 [facility] POCT GLUCOSE (AUTOMATED) 2022-06-04 [facility] 13:57:00 [facility] MRSA / MSSA SCREEN BY PCR [facility] 2022-06-04 [facility] 08:44:00 [facility] MARK AURIS SURVEILLANCE BY PCR 2022-06-04 [facility] (INFECTION CONTROL PURPOSES) 08:44:00 Darian as [facility] MRSA / MSSA SCREEN BY PCRHITESH 2022-06-04 [facility] 08:44:00 [facility] MARK AURIS SURVEILLANCE BY PCR 2022-06-04 [facility] (INFECTION CONTROL PURPOSES) 08:44:00 Darian as [facility] FERRITIN SERUM 2022-06-04 [facility] 08:41:00 [facility] HEPATIC FUNCTION PANEL (33717) 2022-06-04 [facility] (ALB,T.PRO,BILI 08:41:00 [facility] System,BU/BC,ALT,AST,ALK PHOS) [place] BASIC METABOLIC PANEL (NA, K, CL, 2022-06-04 [facility] CO2, GLUCOSE, BUN, CREATININE, CA) 08:41:00 [facility] CBC WITH DIFF 2022-06-04 [facility] 08:41:00 [facility] PROTHROMBIN TIME / INR 2022-06-04 [facility] of 08:41:00 [facility] FERRITIN SERUM 2022-06-04 [facility] of 08:41:00 Tiffany Cedeño [facility] HEPATIC FUNCTION PANEL ([id number]) 2022-06-04 [facility] of (ALB,T.PRO,BILI 08:41:00 [facility],BU/BC,ALT,AST,ALK PHOS) Branch BASIC METABOLIC PANEL (NA, K, CL, 2022-06-04 [facility] of CO2, GLUCOSE, BUN, CREATININE, CA) 08:41:00 [facility] CBC WITH DIFF 2022-06-04 [facility] of 08:41:00 [facility] PROTHROMBIN TIME / INR 2022-06-04 [facility] of 08:41:00 [facility] ENDOSCOPY PROCEDURE DOCUMENTATION 2022-06-04 [facility] 06:01:00 Unassigned, No [facility] ENDOSCOPY PROCEDURE DOCUMENTATION 2022-06-04 [facility] 06:01:00 Unassigned, No [facility] CBC WITHOUT DIFF 2022-05-28 [facility] of 12:52:00 [facility] XR CHEST 1 VW 2022-05-27 [facility] of 12:31:00 [facility] PHOSPHORUS 2022-05-27 [facility] of 11:56:00 [facility] MAGNESIUM 2022-05-27 [facility] of 11:56:00 [facility] BASIC METABOLIC PANEL (NA, K, CL, 2022-05-27 [facility] of CO2, GLUCOSE, BUN, CREATININE, CA) 11:56:00 [facility] CBC WITHOUT DIFF 2022-05-27 [facility] of 11:56:00 [facility] SERUM DRUG (IMMUNOASSAY) - 2022-05-26 Shanika Carranza rsity of COMPREHENSIVE DRUG SCREEN 22:11:00 [facility] PHOSPHORUS 2022-05-26 [facility] 11:48[facility]00 [facility] MAGNESIUM 2022-05-26 [facility] 11:48:00 [facility] BASIC METABOLIC PANEL (NA, K, CL, 2022-05-26 Alfred, [facility] CO2, GLUCOSE, BUN, CREATININE, CA) 11:48:00 [facility] CBC WITH DIFF 2022-05-26 Alfred, [facility] 11:48:00 [facility] XR CHEST 1 VW 2022-05-25 Caryl, [facility] of 21:48:00 [facility] CBC WITH DIFF 2022-05-25 Caryl, [facility] [place] 21:30:00 [facility] EXTRA TUBE DK. GREEN 2022-05-25 Jean-Claude Cohen [facility] 21:27:00 [facility] PHOSPHORUS 2022-05-25 Caryl, [facility] [place] 21:24:00 [facility] MAGNESIUM 2022-05-25 [facility], [facility] [place] 21:24:00 [facility] TROPONIN I 2022-05-25 [facility], [facility] [place] 21:24:00 [facility] BASIC METABOLIC PANEL (NA, K, CL, 2022-05-25 Caryl, [place] [id number], GLUCOSE, BUN, CREATININE, CA) 21:24:00 [facility] D-DIMER 2022-05-25 [facility], [facility] [place] 21:24:00 [facility] ABG+COOX+NA+K+GLU+CA2+ 2022-05-25 Jean-Claude Cohen [facility] y of 21:10:00 [facility] HB ECG ROUTINE & RHYTHM STRIP 2022-05-25 Mary Kay Hutson Un iversity of 21:09:50 [facility] POCT GLUCOSE (AUTOMATED) 2022-05-25 Jean-Claude Cohen [facility] ity of 20:48:00 [facility] PREPARE PACKED RBC 2022-05-25 [facility] 20:12:38 [facility] BASIC METABOLIC PANEL (NA, K, CL, 2022-05-25 Alfred, [facility] CO2, GLUCOSE, BUN, CREATININE, CA) 18:54:00 [facility] CBC WITH DIFF 2022-05-25 Alfred, [facility] 18:54:00 [facility] XR CHEST 1 VW 2022-05-25 Alfred Waldo of 12:21:00 [facility] PHOSPHORUS 2022-05-25 Alfred, [facility] of 11:11:00 [facility] MAGNESIUM 2022-05-25 Alfred, [facility] of 11:11:00 [facility] BASIC METABOLIC PANEL (NA, K, CL, 2022-05-25 [facility] CO2, GLUCOSE, BUN, CREATININE, CA) 11:11:00 [facility] CBC WITH DIFF 2022-05-25 Alfred, [facility] of 11:11:00 [facility] XR CHEST 1 VW 2022-05-24 Alfred, [facility] 12:33:00 [facility] PHOSPHORUS 2022-05-24 [facility] of 11:26:00 [facility] MAGNESIUM 2022-05-24 [facility] of 11:26:00 [facility] BASIC METABOLIC PANEL (NA, K, CL, 2022-05-24 [facility] of CO2, GLUCOSE, BUN, CREATININE, CA) 11:26:00 [facility] CBC WITHOUT DIFF 2022-05-24 [facility] of 11:25:00 [facility] POCT GLUCOSE (AUTOMATED) 2022-05-24 Jean-Claude Cohen [facility] ity of 10:48:00 [facility] POCT GLUCOSE (AUTOMATED) 2022-05-24 Jean-Claude Cohen [facility] ity of 10:19:00 [facility] XR CHEST 1 2022-05-23 [facility] of 11:06:00 [facility] XR CHEST 1 VW 2022-05-23 [facility] of 11:06:00 [facility] XR CHEST 1 VW 2022-05-22 [facility] of 20:50:00 [facility] XR CHEST 1 VW 2022-05-22 [facility] of 20:50:00 [facility] TISSUE CULTURE(AEROBIC/ANAEROBIC) 2022-05-22 Jean-Claude Cohen of 17:11:00 [facility] FUNGUS (ROUTINE) CULTURE 2022-05-22 Jean-Claude Cohen [facility] ity of 17:11:00 [facility] FUNGUS (ROUTINE) CULTURE 2022-05-22 [facility]:11[facility]00 [facility] TISSUE CULTURE(AEROBIC/ANAEROBIC) 2022-05-22 Jean-Claude Cohen [facility] 17:11:00 [facility] DECORTICATION ROBOT-ASSISTED LUNG 2022-05-22 Jean-Claude Cohen [facility] 14:30:00 [facility] DECORTICATION ROBOT-ASSISTED LUNG 2022-05-22 Jean-Claude Cohen [facility] 14:30:00 [facility] HB ABO GROUPING 2022-05-22 [facility], [facility] of 11:55:00 [facility] HB ABO GROUPING 2022-05-22 [facility], [facility] of 11:55:00 [facility] PHOSPHORUS 2022-05-22 [facility], [facility] of 11:54:00 [facility] MAGNESIUM 2022-05-22 [facility], [facility] of 11:54:00 [facility] BASIC METABOLIC PANEL (NA, K, CL, 2022-05-22 [facility], [facility] of CO2, GLUCOSE, BUN, CREATININE, CA) 11:54:00 [facility] CBC WITH DIFF 2022-05-22 [facility], [facility] of 11:54:00 [facility] PROTHROMBIN TIME / INR 2022-05-22 [facility], Universit y of 11:54:00 [facility] PHOSPHORUS 2022-05-22 [facility], [facility] of 11:54:00 [facility] MAGNESIUM 2022-05-22 [facility], [facility] of 11:54:00 [facility] BASIC METABOLIC PANEL (NA, K, CL, 2022-05-22 [facility], [facility] of CO2, GLUCOSE, BUN, CREATININE, CA) 11:54:00 [facility] CBC WITH DIFF 2022-05-22 [facility], [facility] of 11:54:00 [facility] PROTHROMBIN TIME / INR 2022-05-22 [facility], Universit y of 11:54:00 [facility] CBC WITHOUT DIFF 2022-05-20 [facility] of 20:04:00 [facility] PROTHROMBIN TIME / INR 2022-05-20 [facility], [facility] y of 20:04:00 [facility] CBC WITHOUT DIFF 2022-05-20 [facility], [facility] of 20:04:00 [facility] PROTHROMBIN TIME / INR 2022-05-20 [facility] 20:04[facility] CT ABDOMEN PELVIS W CONTRAST 2022-05-20 Alberto Amos Uni versity of 17:53:46 [facility] CT ABDOMEN PELVIS W CONTRAST 2022-05-20 Dandre, Alberto Uni versity of 17:53:46 [facility] XR CHEST 2 VW 2022-05-20 [facility] of 16:09:00 [facility] XR CHEST 2 VW 2022-05-20 Cohen [facility] of 16:09:00 [facility] ABORH CONFIRMATION (LAB ONLY) 2022-05-19 [facility] Un iversity of 20:00:00 [facility] ABORH CONFIRMATION (LAB ONLY) 2022-05-19 [facility] Un iversity of 20:00:00 [facility] HB ABO GROUPING 2022-05-19 [facility] of 18:05:00 [facility] HB ABO GROUPING 2022-05-19 [facility] of 18:05:00 [facility] PHOSPHORUS 2022-05-19 [facility] 11:23:00 [facility] MAGNESIUM 2022-05-19 [facility] of 11:23:00 [facility] BASIC METABOLIC PANEL (NA, K, CL, 2022-05-19 [facility] of CO2, GLUCOSE, BUN, CREATININE, CA) 11:23:00 [facility] INTACT PTH CALCIUM GROUP 2022-05-19 [facility] of 11:23:00 [facility] PHOSPHORUS 2022-05-19 [facility] of 11:23:00 [facility] MAGNESIUM 2022-05-19 [facility] of 11:23:00 [facility] BASIC METABOLIC PANEL (NA, K, CL, 2022-05-19 [facility] of CO2, GLUCOSE, BUN, CREATININE, CA) 11:23:00 [facility] INTACT PTH CALCIUM GROUP 2022-05-19 [facility] ity of 11:23:00 [facility] CT THORAX WO CONTRAST 2022-05-19 [facility] of 04:22:28 [facility] CT THORAX WO CONTRAST 2022-05-19 [facility] of 04:22:28 [facility] XR CHEST 1 VW 2022-05-18 [facility] of 15:09:00 [facility] XR CHEST 1 VW 2022-05-18 [facility] of 15:09:00 [facility] COMP. METABOLIC PANEL ([id number]) 2022-05-17 Antonia Nation Un iversity of 11:28:00 [facility] CBC WITH DIFF 2022-05-17 Rios, [facility] of 11:28:00 [facility] PHOSPHORUS 2022-05-17 [facility] of 11:28:00 [facility] COMP. METABOLIC PANEL ([id number]) 2022-05-17 Antonia Nation Un iversity of 11:28:00 [facility] CBC WITH DIFF 2022-05-17 [facility] of 11:28:00 [facility] PHOSPHORUS 2022-05-17 [facility] of 11:28:00 [facility] COMP. METABOLIC PANEL ([id number]) 2022-05-17 Antonia Nation Un iversity of 11:28:00 [facility] CBC WITH DIFF 2022-05-17 [facility] of 11:28:[address] [facility] CT ANGIOGRAPHY, DOUBLE RULE OUT 2022-05-16 [facility] of (THORACIC AO / PE) 16:05:44 [facility] CT ANGIOGRAPHY, DOUBLE RULE OUT 2022-05-16 [facility] of (THORACIC AO / PE) 16:05:[address] [facility] [address] ANGIOGRAPHY, DOUBLE RULE OUT 2022-05-16 [facility] of (THORACIC AO / PE) 16:05:44 [facility] BASIC METABOLIC PANEL (NA, K, CL, 2022-05-16 [facility] of CO2, GLUCOSE, BUN, CREATININE, CA) 11:17:00 [facility] CBC WITH DIFF 2022-05-16 [facility] 11:17:00 [facility] BASIC METABOLIC PANEL (NA, K, CL, 2022-05-16 Rios, [facility] of CO2, GLUCOSE, BUN, CREATININE, CA) 11:17:00 [facility] CBC WITH DIFF 2022-05-16 [facility] 11:17:00 [facility] BASIC METABOLIC PANEL (NA, K, CL, 2022-05-16 [facility] of CO2, GLUCOSE, BUN, CREATININE, CA) 11:17:00 [facility] CBC WITH DIFF 2022-05-16 [facility] 11:17:00 [facility] IR REPLACEMENT COMPLETE TUNNELED 2022-05-16 [facility] CENTRALLY INSERTED CVC WITHOUT 00:03:00 T ex Medical PORT/PUMP SAME ACCESS Branch IR REPLACEMENT COMPLETE TUNNELED 2022-05-16 [facility] of CENTRALLY INSERTED CVC WITHOUT 00:03:00 T ex Medical PORT/PUMP SAME ACCESS Branch IR REPLACEMENT COMPLETE TUNNELED 2022-05-16 [facility] of CENTRALLY INSERTED CVC WITHOUT 00:03:00 T ex Medical PORT/PUMP SAME ACCESS Branch BASIC METABOLIC PANEL (NA, K, CL, 2022-05-15 [facility] CO2, GLUCOSE, BUN, CREATININE, CA) 11:05:00 [facility] MAGNESIUM 2022-05-15 [facility] of 11:05:00 [facility] MAGNESIUM 2022-05-15 [facility] of 11:05:00 [facility] BASIC METABOLIC PANEL (NA, K, CL, 2022-05-15 [facility] CO2, GLUCOSE, BUN, CREATININE, CA) 11:05:00 [facility] MAGNESIUM 2022-05-15 [facility] of 11:05:00 [facility] BASIC METABOLIC PANEL (NA, K, CL, 2022-05-15 Rios, Antonia [facility] of CO2, GLUCOSE, BUN, CREATININE, CA) 11:05:00 [facility] BASIC METABOLIC PANEL (NA, K, CL, 2022-05-14 Rios, [facility] of CO2, GLUCOSE, BUN, CREATININE, CA) 22:08:00 [facility] BASIC METABOLIC PANEL (NA, K, CL, 2022-05-14 Rios, [facility] of CO2, GLUCOSE, BUN, CREATININE, CA) 22:08:00 [facility] BASIC METABOLIC PANEL (NA, K, CL, 2022-05-14 Rios, [facility] of CO2, GLUCOSE, BUN, CREATININE, CA) 22:08:00 [facility] BASIC METABOLIC PANEL (NA, K, CL, 2022-05-14 Rios, [facility] of CO2, GLUCOSE, BUN, CREATININE, CA) 10:43:00 [facility] CBC WITH DIFF 2022-05-14 [facility] of 10:43:00 [facility] MAGNESIUM 2022-05-14 [facility] of 10:43:00 [facility] MAGNESIUM 2022-05-14 [facility] of 10:43:00 [facility] BASIC METABOLIC PANEL (NA, K, CL, 2022-05-14 [facility], [facility] of CO2, GLUCOSE, BUN, CREATININE, CA) 10:43:00 [facility] CBC WITH DIFF 2022-05-14 [facility] of 10:43:00 [facility] MAGNESIUM 2022-05-14 [facility] of 10:43:00 [facility] BASIC METABOLIC PANEL (NA, K, CL, 2022-05-14 [facility], [facility] of CO2, GLUCOSE, BUN, CREATININE, CA) 10:43:00 [facility] CBC WITH DIFF 2022-05-14 [facility] of 10:43:00 [facility] XR CHEST 1 VW 2022-05-14 [facility] of 04:09:52 [facility] XR CHEST 1 VW 2022-05-14 Ab[facility] of 04:09:52 [facility] XR CHEST 1 VW 2022-05-14 Ab[facility] of 04:09:52 [facility] GLUCOSE 2022-05-13 [facility] of 22:41:00 [facility] LACTATE DEHYDROGENASE 2022-05-13 [facility] y of 22:41:00 [facility] PROTEIN TOTAL 2022-05-13 [facility], [facility] of 22:41:00 [facility] GLUCOSE 2022-05-13 [facility], [facility] of 22:41:00 [facility] PROTEIN TOTAL 2022-05-13 [facility], [facility] of 22:41:00 [facility] LACTATE DEHYDROGENASE 2022-05-13 [facility] 22:41:00 [facility] GLUCOSE 2022-05-13 [facility], [facility] of 22:41:00 [facility] PROTEIN TOTAL 2022-05-13 [facility], [facility] of 22:41:00 [facility] LACTATE DEHYDROGENASE 2022-05-13 [facility], [facility] y of 22:41:00 [facility] XR CHEST 1 VW 2022-05-13 [facility] of 17:52:00 [facility] XR CHEST 1 VW 2022-05-13 [facility] of 17:52:00 [place] [facility] [place] X[facility] CHEST 1 VW 2022-05-13 [facility] of 17:52:00 [facility] PH, BODY FLUID 2022-05-13 [facility] of 17:30:00 [facility] BODY FLUID FUNGUS CULTURE (BACTEC 2022-05-13 [facility] BOTTLE) 17:30:00 [facility] PH, BODY FLUID 2022-05-13 [facility] of 17:30:00 [facility] BODY FLUID FUNGUS CULTURE (BACTEC 2022-05-13 [facility] BOTTLE) 17:30:00 [facility] PH, BODY FLUID 2022-05-13 [facility] of 17:30:00 [facility] BODY FLUID FUNGUS CULTURE (BACTEC 2022-05-13 [facility] BOTTLE) 17:30:00 [facility] BODY FLUID MANUAL DIFF [facility] 15:12[facility]00 [facility] CYTO PLEURAL FLUID 2022-05-13 [facility] o f 15:12:00 [facility] BODY FLUID (BACTEC BOTTLE) 2022-05-13 Wesley Ontiveros rsity of 15:12:00 [facility] BODY FLUID DIRECT COUNT 2022-05-13 [facility] ity of 15:12:00 [facility] BODY FLUID (BACTEC BOTTLE) 2022-05-13 Wesley Ontiveros rsity of 15:12:00 [facility] CYTO PLEURAL FLUID 2022-05-13 [facility] o f 15:12:00 [facility] BODY FLUID DIRECT COUNT 2022-05-13 [facility] ity of 15:12:00 [facility] BODY FLUID (BACTEC BOTTLE) 2022-05-13 Wesley Ontiveros rsity of 15:12:00 [facility] CYTO PLEURAL FLUID 2022-05-13 [facility] o f 15:12:00 [facility] SERUM DRUG (IMMUNOASSAY) - 2022-05-13 Alberto Amos rsity of COMPREHENSIVE DRUG SCREEN 11:19:00 [facility] COMP. METABOLIC PANEL ([id number]) 2022-05-13 Antonia Nation Un iversity of 11:19:00 [facility] PHOSPHORUS 2022-05-13 [facility] of 11:19:00 [facility] PROTHROMBIN TIME / INR 2022-05-13 Antonia Nation [facility] y of 11:19:00 [facility] ACTIVATED PARTIAL THRMPLAS MIR 2022-05-13 Antonia Nation [facility]iversity of 11:19:00 [facility] PHOSPHORUS 2022-05-13 [facility] of 11:19:00 [facility] COMP. METABOLIC PANEL ([id number]) 2022-05-13 Antonia Nation Un iversity of 11:19:00 [facility] SERUM DRUG (IMMUNOASSAY) - 2022-05-13 Alberto Amos rsity of COMPREHENSIVE DRUG SCREEN 11:19:00 [facility] PROTHROMBIN TIME / INR 2022-05-13 [facility] 11:19:00 [facility] ACTIVATED PARTIAL THRMPLAS MIR 2022-05-13 Antonia Nation U niversity of 11:19:00 [facility] PHOSPHORUS 2022-05-13 April Nationhrellen [place] of 11:19:00 [facility] COMP. METABOLIC PANEL ([id number]) 2022-05-13 Antonia Nation iversity of 11:19:00 [facility] SERUM DRUG (IMMUNOASSAY) - 2022-05-13 Alberto [facility]os [facility] rs[facility] of COMPREHENSIVE DRUG SCREEN 11:19:00 [facility] PROTHROMBIN TIME / INR 2022-05-13 Antonia Nation [facility] of 11:19:00 [facility] ACTIVATED PARTIAL THRMPLAS MIR 2022-05-13 Antonia Nation niversity of 11:19:00 [facility] CT THORAX W CONTRAST 2022-05-12 Antonia Nation [facility] of 15:32:00 [facility] CT THORAX W CONTRAST 2022-05-12 Antonia Nation [facility] of 15:32:00 [facility] CT THORAX W CONTRAST 2022-05-12 Antonia Nation [facility] of 15:32:00 [facility] CBC WITH DIFF 2022-05-11 Alberto Amos [facility] of 10:43:00 [facility] BASIC METABOLIC PANEL (NA, K, CL, 2022-05-11 Alberto Amos [place] of CO2, GLUCOSE, BUN, CREATININE, CA) 10:43:00 [facility] MAGNESIUM 2022-05-11 Alberto Amos [place] of 10:43:00 [facility] PHOSPHORUS 2022-05-11 Antonia Nation of 10:43:00 [facility] PHOSPHORUS 2022-05-11 Antonia Nation Wal[facility] of 10:43:00 [facility] MAGNESIUM 2022-05-11 Akiranetirso [facility] of 10:43:00 [facility] BASIC METABOLIC PANEL (NA, K, CL, 2022-05-11 [facility] of CO2, GLUCOSE, BUN, CREATININE, CA) 10:43:00 [facility] CBC WITH DIFF 2022-05-11 Alberto Amos [place] of 10:43:00 [facility] PHOSPHORUS 2022-05-11 [facility] of 10:43:00 [facility] MAGNESIUM 2022-05-11 [facility] of 10:43:00 [facility] BASIC METABOLIC PANEL (NA, K, CL, 2022-05-11 [facility] of CO2, GLUCOSE, BUN, CREATININE, CA) 10:43:00 [facility] CBC WITH DIFF 2022-05-11 [facility] of 10:43:00 [facility] TRANSTHORACIC ECHO (TTE) COMPLETE 2022-05-10 , [facility] of 17:06:05 [facility] TRANSTHORACIC ECHO (TTE) COMPLETE 2022-05-10 , [facility] of 17:06:05 [facility] TRANSTHORACIC ECHO (TTE) COMPLETE 2022-05-10 , [facility] of 17:06:05 [facility] MRSA / MSSA SCREEN BY PCR, [facility] 2022-05-10 [facility] 12:27:00 [facility] MRSA / MSSA SCREEN BY PCR, [facility] 2022-05-10 [facility] of 12:27:00 [facility] MRSA / MSSA SCREEN BY PCR, [facility] 2022-05-10 [facility] 12:27:00 [facility] VITAMIN D, 25-[place] 2022-05-10 , [facility] 12:20:00 [facility] VITAMIN D, 25-[place] 2022-05-10 , [facility] 12:20:00 [facility] VITAMIN D, 25-[place] 2022-05-10 , [facility] 12:20:00 [facility] BASIC METABOLIC PANEL (NA, K, CL, 2022-05-10 , [facility] of CO2, GLUCOSE, BUN, CREATININE, CA) 12:19:00 [facility] MAGNESIUM 2022-05-10 , [facility] of 12:19:00 [facility] MAGNESIUM 2022-05-10 , [facility] of 12:19:00 [facility] BASIC METABOLIC PANEL (NA, K, CL, 2022-05-10 , [facility] of CO2, GLUCOSE, BUN, CREATININE, CA) 12:19:00 [facility] MAGNESIUM 2022-05-10 , [facility] of 12:19:00 [facility] BASIC METABOLIC PANEL (NA, K, CL, 2022-05-10 [facility] CO2, GLUCOSE, BUN, CREATININE, CA) 12:19:00 [facility] HEPATITIS B SURFACE ANTIBODY 2022-05-10 Feliberto Galicia [facility] of 07:11:00 [facility] HBC ANTIBODY (IGM & IGG) 2022-05-10 Feliberto Galicia [facility]iver [facility] of 07:11:00 [facility] CA-125 2022-05-10 [facility] 07:11:00 [facility] CARCINOEMBRYONIC ANTIGEN 2022-05-10 [facility], [facility] ity of 07:11:00 [facility] CARCINOEMBRYONIC ANTIGEN 2022-05-10 [facility], [facility] ity of 07:11:00 [facility] CA-125 2022-05-10 [facility] of 07:11:00 [facility] HEPATITIS B SURFACE ANTIBODY 2022-05-10 Feliberto Galicia Un ivers[facility] of 07:11:00 [facility] HBC ANTIBODY (IGM & IGG) 2022-05-10 Feliberto Galicia Univer [facility]ity of 07:11:00 [facility] CARCINOEMBRYONIC ANTIGEN 2022-05-10 [facility] ity of 07:11:00 [facility] CA-125 2022-05-10 [facility] of 07:11:00 [facility] HEPATITIS B SURFACE ANTIBODY 2022-05-10 Feliberto Galicia Un i[facility] of 07:11:00 [facility] HBC ANTIBODY (IGM & IGG) 2022-05-10 Feliberto Galicia Univer [facility] of 07:11:00 [facility] HB ECG ROUTINE & RHYTHM STRIP 2022-05-10 Steve Lovingh Un iversity of 04:47:45 [facility] HB ECG ROUTINE & RHYTHM STRIP 2022-05-10 Steve Lovingh Un iversity of 04:47:45 [facility] HB ECG ROUTINE & RHYTHM STRIP 2022-05-10 Steve Lovingh Un iversity of 04:47:45 [facility] ACUTE CARE VENOUS BLOOD GAS 2022-05-10 Abbi, [facility] ersity of 04:26:00 [facility] ACUTE CARE VENOUS BLOOD GAS 2022-05-10 Abbi, [facility] ersity of 04:26: [facility] ACUTE CARE VENOUS BLOOD GAS 2022-05-10 Abbi, [facility] ersity of 04:26:00 [facility] CBC WITH DIFF 2022-05-10 , [facility] of 04:13:00 [facility] BASIC METABOLIC PANEL (NA, K, CL, 2022-05-10 Abbi, [facility] of CO2, GLUCOSE, BUN, CREATININE, CA) 04:13: [facility] MAGNESIUM 2022-05-10 Abbi, [facility] of 04:13:00 [facility] PHOSPHORUS 2022-05-10 Abbi, [facility] of 04:13:00 [facility] HEPATITIS B SURFACE ANTIGEN 2022-05-10 Feliberto Galicia Uni versity of 04:13: [facility] PHOSPHORUS 2022-05-10 Abbi, [facility] of 04:13:00 [facility] MAGNESIUM 2022-05-10 Abbi, [facility] of 04:13:00 [facility] BASIC METABOLIC PANEL (NA, K, CL, 2022-05-10 Abbi, [facility] of CO2, GLUCOSE, BUN, CREATININE, CA) 04:13:00 [facility] CBC WITH DIFF 2022-05-10 , [facility] of 04:13:00 [facility] HEPATITIS B SURFACE ANTIGEN 2022-05-10 Feliberto Galicia Uni versity of 04:13:00 [facility] PHOSPHORUS 2022-05-10 Abbi, [facility] of 04:13:00 [facility] MAGNESIUM 2022-05-10 Abbi, [facility] of 04:13:00 [facility] BASIC METABOLIC PANEL (NA, K, CL, 2022-05-10 Abbi, [facility] of CO2, GLUCOSE, BUN, CREATININE, CA) 04:13: [facility] CBC WITH DIFF 2022-05-10 , [facility] of 04:13:00 [facility] HEPATITIS B SURFACE ANTIGEN 2022-05-10 Feliberto Galicia Uni versity of 04:13:00 [facility] POCT GLUCOSE (AUTOMATED) 2022-05-10 [facility] ity of 01:42:00 [facility] POCT GLUCOSE (AUTOMATED) 2022-05-10 [facility] ity of 01:42:00 [facility] POCT GLUCOSE (AUTOMATED) 2022-05-10 [facility] ity of 01:42:00 [facility] POCT GLUCOSE (AUTOMATED) 2022-05-10 [facility] ity of 01:10:00 [facility] POCT GLUCOSE (AUTOMATED) 2022-05-10 [facility] ity of 01:10:00 [facility] POCT GLUCOSE (AUTOMATED) 2022-05-10 [facility] ity of 01:10:00 [facility] ABG+COOX+NA+K+GLU+CA2+ 2022-05-10 [facility] Universit y of 00:36:00 [facility] ABG+COOX+NA+K+GLU+CA2+ 2022-05-10 [facility] Universit y of 00:36:00 [facility] ABG+COOX+NA+K+GLU+CA2+ 2022-05-10 Ld Morait y of 00:36:00 [facility] POTASSIUM SERUM 2022-05-10 [facility] Waldo of 00:19:00 [facility] POTASSIUM SERUM 2022-05-10 [facility] Waldo of 00:19:00 [facility] POTASSIUM SERUM 2022-05-10 [facility] of 00:19:00 [facility] N-TERMINAL PRO-BNP 2022-05-09 [facility] of 23:06:00 [facility] COMP. METABOLIC PANEL ([id number]) 2022-05-09 [facility] iversity of 23:06:00 [facility] MAGNESIUM 2022-05-09 L[facility] Waldo of 23:06:00 [facility] TROPONIN I 2022-05-09 L[facility] Waldo of 23:06:00 [facility] MAGNESIUM 2022-05-09 L[facility] Waldo of 23:06:00 [facility] TROPONIN I 2022-05-09 [facility] of 23:06:00 [facility] COMP. METABOLIC PANEL ([id number]) 2022-05-09 [facility] Un iversity of 23:06:00 [facility] N-TERMINAL PRO-BNP 2022-05-09 [facility] of 23:06:00 [facility] MAGNESIUM 2022-05-09 [facility] of 23:06:00 [facility] TROPONIN I 2022-05-09 [facility] of 23:06:00 [facility] COMP. METABOLIC PANEL ([id number]) 2022-05-09 [facility] Un iversity of 23:06:00 [facility] N-TERMINAL PRO-BNP 2022-05-09 [facility] of 23:06:00 [facility] HB ECG ROUTINE & RHYTHM STRIP 2022-05-09 [facility] iversity of 22:37:22 [facility] HB ECG ROUTINE & RHYTHM STRIP 2022-05-09 [facility] i[facility] of 22:37:22 [facility] HB ECG ROUTINE & RHYTHM STRIP 2022-05-09 [facility] iversity of 22:37:22 [facility] CT THORAX WO CONTRAST 2022-05-09 [facility] of 22:24:17 [facility] CT THORAX WO CONTRAST 2022-05-09 [facility] of 22:24:17 [facility] CT THORAX WO CONTRAST 2022-05-09 L[facility] Waldo of 22:24:17 [facility] MARK AURIS SURVEILLANCE BY PCR 2022-05-09 Ld Mora [facility] (INFECTION CONTROL PURPOSES) 21:58:00 [facility] CBC WITH DIFF 2022-05-09 [facility] of 21:58:00 [facility] Branch CBC WITH DIFF 2022-05-09 [facility] of 21:58:00 [facility] MARK AURIS SURVEILLANCE BY PCR 2022-05-09 Ld Mora [facility] (INFECTION CONTROL PURPOSES) 21:58:00 [facility] CBC WITH DIFF 2022-05-09 Ld Mora [facility] 21:58:00 [facility] MARK AURIS SURVEILLANCE BY PCR 2022-05-09 Ld Mora [facility] (INFECTION CONTROL PURPOSES) 21:58:00 [facility] DISCLOSURE AND CONSENT, MEDICAL 2022-05-09 [facility] AND SURGICAL PROCEDURES 06:01:00 Unassigned, No [facility] dical Name Branch HOSPITAL ADMISSION 2022-05-09 [facility] 06:01:00 Unassigned, No [facility] Name Branch EXTERNAL PROVIDER RECORDS 2022-05-09 [facility] of 06:01:00 Unassigned, No [place] [facility] DISCLOSURE AND CONSENT, [facility] 2022-05-09 [facility] AND SURGICAL PROCEDURES 06:01:00 Unassigned, No [facility] dical Name Branch HOSPITAL ADMISSION 2022-05-09 [facility] 06:01:00 Unassigned, No [facility] EXTERNAL PROVIDER RECORDS 2022-05-09 [facility] of 06:01:00 Unassigned, No [place] [facility] DISCLOSURE AND CONSENT, MEDICAL 2022-05-09 [facility] AND SURGICAL PROCEDURES 06:01:00 Unassigned, No [facility] dical Name Branch HOSPITAL ADMISSION 2022-05-09 [facility] 06:01:00 Unassigned, No [facility] EKG-12 LEAD 2021-12-[address] [facility] of 18:40:28 [facility] CONSENT/REFUSAL FOR DIAGNOSIS AND 2021-12-25 [facility] of TREATMENT 18:09:35 Unassigned, No [facility] TTE COMPLETE, WO CONTRAST, W 2021-12-18 Soni Mayes, hodist DOPPLER ([id number]) 13:28:00 [facility] HEPATITIS B SURFACE ANTIGEN 2021-12-17 Mamie Andrew Me thodist 17:24:00 [facility] HEPATITIS B SURFACE AB, 2021-12-17 Mamie Andrew Method ist QUANTITATIVE 17:24:00 [facility] HEPATITIS B SURFACE ANTIBODY 2021-12-17 Mamie Andrew M ethodist 17:24:00 Hospital HEMODIALYSIS 2021-12-17 Mamie Andrewist 13:44:21 Hospital POC GLUCOSE 2021-12-16 Laeeq, Rakel Mcguire Judaism 22:03:[address] ANGIOGRAM PE CHEST 2021-12-16 Laeeq, Rakel Tompkinsis t 21:37:19 Hospital CBC WITH PLATELET AND DIFFERENTIAL 2021-12-16 Laeeq, Rakel Mcguire [facility] 17:59:00 Hospital VANCOMYCIN LEVEL, RANDOM 2021-12-16 Laeeq, Rakel Mcguire [facility] dist 17:59:00 Hospital LACTIC ACID LEVEL 2021-12-16 Laeeq, Rakel Mcguire [facility] 17:55:00 Hospital PROTHROMBIN TIME WITH INR 2021-12-16 Laeeq, Rakel Mcguire Meth odist 17:55:00 Hospital COMPREHENSIVE METABOLIC PANEL 2021-12-16 Laeeq, Rakel Mcguire [facility] 17:25:00 Hospital MAGNESIUM LEVEL 2021-12-16 Laeeq, Rakeltenzin Mcguire Judaism 17:25:00 Hospital PHOSPHORUS LEVEL 2021-12-16 Laeeq, Rakel Mcguire [facility] 17:25:00 Hospital AMMONIA LEVEL 2021-12-16 Laeeq, Rakel Mcguire [facility] 17:25:00 Hospital ESTIMATED GFR 2021-12-16 Laeeq, Rakel Mcguire [facility] 17:25:[address] HEAD WO CONTRAST 2021-12-16 Laeeq, Rakel Mcguire [facility] 13:16:29 Hospital EEG AWAKE/ASLEEP LESS THAN 41 MIN 2021-12-16 Laeeq, Rakel domingo Judaism 11:26:21 Hospital ARTERIAL BLOOD GAS 2021-12-16 Erica Velasco Judaism 02:54:00 [facility] XR CHEST 1 VW PORTABLE 2021-12-16 Laeeq, Rakel Tompkinsi st 01:57:17 Hospital TRANSFUSE RED BLOOD CELLS 2021-12-16 Laeeq, Rakel White odist 00:57:00 Hospital ARTERIAL BLOOD GAS 2021-12-16 Laeeq, Rakel Mcguire Judaism 00:51:00 Hospital ARTERIAL BLOOD GAS 2021-12-15 Virgilio Purvis Judaism 21:42:00 [facility] OR FL < 1 HOUR 2021-12-15 Bunny Loving Judaism 20:00:00 Hospital ARTERIAL BLOOD GAS, CORRECTED 2021-12-15 Laeeq, Rakel Mcguire Judaism 19:30:00 Hospital SODIUM LEVEL, SYRINGE 2021-12-15 Laeeq, Rakel Maynor Methodis t 19:30:00 Hospital POTASSIUM, SYRINGE 2021-12-15 Laeeq, Rakel Maynor Judaism 19:30:00 Hospital HEMOGLOBIN, SYRINGE 2021-12-15 Laeeq, Rakel Maynor Judaism 19:30:00 Hospital IONIZED CALCIUM, ARTERIAL 2021-12-15 Laeeq, Rakel Maynor Meth odist 19:30:00 Hospital GLUCOSE LEVEL, SYRINGE 2021-12-15 Laeeq, Rakel Maynor Methodi st 19:30:00 Hospital MAGNESIUM LEVEL 2021-12-15 Laeeq, Rakel Maynor Judaism 19:30:00 Hospital ANAEROBIC CULTURE 2021-12-15 Abbi, Bunny Judaism 19:11:00 Hospital FUNGUS CULTURE 2021-12-15 Abbi, Bunny [facility] 19:11:00 Hospital AFB CULTURE 2021-12-15 Abbi, Bunny [facility] 19:11:00 Hospital GRAM STAIN 2021-12-15 Abbi, Bunny [facility] 19:11:00 Hospital AFB STAIN 2021-12-15 Abbi, Bunny [facility] 19:11:00 Hospital AEROBIC CULTURE 2021-12-15 Abbi, Bunny [facility] 19:11:00 Hospital TRANSFUSE RED BLOOD CELLS 2021-12-15 Dallas Kowalski Method ist 18:37:00 [facility] ARTERIAL BLOOD GAS, CORRECTED 2021-12-15 Laeeq, Rakel Maynor Judaism 17:51:00 Hospital SODIUM LEVEL, SYRINGE 2021-12-15 Laeeq, Rakel Maynor Methodis t 17:51:00 Hospital POTASSIUM, SYRINGE 2021-12-15 Laeeq, Rakel Maynor Judaism 17:51:00 Hospital HEMOGLOBIN, SYRINGE 2021-12-15 Laeeq, Rakel Maynor Judaism 17:51:00 Hospital IONIZED CALCIUM, ARTERIAL 2021-12-15 Laeeq, Rakel Maynor Meth odist 17:51:00 Hospital GLUCOSE LEVEL, SYRINGE 2021-12-15 Laeeq, Rakel Maynor Methodi st 17:51:00 Hospital MAGNESIUM LEVEL 2021-12-15 Laeeq, Rakel Maynor Judaism 17:51:00 Hospital UT AN ELECTIVE SUPRAGLOTTIC AIRWAY 2021-12-15 Hany Kowalski Judaism 15:01:00 [facility] Extensive Revision AV Fistula 2021-12-15 Bunny Loving thodist 14:41:00 [place] [id number] ANTI-SPIKE IGG ANTIBODY 2021-12-15 Suresh Ambrose Judaism TITER 10:57:00 [facility] CBC WITH PLATELET AND DIFFERENTIAL 2021-12-15 Laeaparna, Rakel Tompkinsist 10:57:00 Hospital COMPREHENSIVE METABOLIC PANEL 2021-12-15 Laeeq, Rakel Tompkinsist 10:57:00 Hospital MAGNESIUM LEVEL 2021-12-15 Laeeq, Rakeltenzin Mcguire Judaism 10:57:00 Hospital PHOSPHORUS LEVEL 2021-12-15 Laeeq, Rakel Tompkinsist 10:57:00 Hospital PROTHROMBIN TIME WITH INR 2021-12-15 Alex, Rakel White odist 10:57:00 [place] [id number] SEROLOGY PATIENT 2021-12-15 Damion Ambrose SURVEILLANCE 10:57:00 [facility] ESTIMATED GFR 2021-12-15 Alex, Rakel Tompkinsist 10:57:00 Hospital PARTIAL THROMBOPLASTIN TIME (PTT) 2021-12-15 Damion Ambrose 10:57:00 [facility] ESTIMATED GFR 2021-12-15 GinaeqRakel 10:28:00 Hospital BASIC METABOLIC PANEL 2021-12-14 Ajith Mejía 23:49:00 Hospital ESTIMATED GFR 2021-12-14 Ajith Mejía 23:49:00 Hospital PREPARE RBC 2021-12-14 Rakel Johnson 20:13:00 Hospital PROTHROMBIN TIME WITH INR 2021-12-14 Leda Cordero 20:13:00 [facility] PARTIAL THROMBOPLASTIN TIME (PTT) 2021-12-14 Duke Cordero 20:13:00 [facility] XR CHEST 1 VW PORTABLE 2021-12-14 Duke Cordero 19:02:38 [facility] BASIC METABOLIC PANEL 2021-12-14 Ajith Mejía 15:41:00 Hospital ESTIMATED GFR 2021-12-14 Ajith Mejía 15:41:00 Hospital HEMODIALYSIS 2021-12-14 Duke Tamayo 14:50:32 [facility] CBC WITH PLATELET AND DIFFERENTIAL 2021-12-14 Alma Whitman 10:48:00 [facility] ESTIMATED GFR 2021-12-14 Alma Whitman 09:39:00 [facility] LACTIC ACID LEVEL, SEPSIS - NOW 2021-12-14 Alma Whitman AND REPEAT 2X EVERY 3 HOURS 05:01:00 [facility] POC GLUCOSE 2021-12-14 Alma Whitman 03:32:00 [facility] POC GLUCOSE 2021-12-14 Alma Whitman 02:40:00 [facility] ECG 12-LEAD 2021-12-14 Alma Whitman 02:14:56 [facility] POC GLUCOSE 2021-12-14 Alma Whitman 02:00:00 [facility] COVID-19 QUALITATIVE RT-PCR 2021-12-14 Pratibha Hummel 01:49:00 [facility] LACTIC ACID LEVEL, SEPSIS - NOW 2021-12-14 Alma Whitman AND REPEAT 2X EVERY 3 HOURS 01:49:00 [facility] LACTIC ACID LEVEL, SEPSIS - NOW 2021-12-14 Alma Whitman AND REPEAT 2X EVERY 3 HOURS 00:13:00 [facility] BASIC METABOLIC PANEL 2021-12-14 Pratibha Hummel 00:13:00 [facility] CBC WITH PLATELET AND DIFFERENTIAL 2021-12-14 Pratibha Hummel 00:13:00 [facility] HEPATIC FUNCTION PANEL 2021-12-14 Pratibha Hummel 00:13:00 [facility] ESTIMATED GFR 2021-12-14 Pratibha Hummel 00:13:00 [facility] BLOOD CULTURE, AEROBIC & ANAEROBIC 2021-12-14 Pratibha Hummel 00:12:00 [facility] UT CRITICAL CARE ILL/INJURED 2021-12-13 Pratibha Hummel PATIENT INIT 30-74 MIN 22:29:38 [facility] ECG ED PRELIMINARY INTERPRETATION 2021-12-13 Pratibha Hummel 22:29:38 [facility] Open Reduction of Fracture of [facility] Multiple Ribs with Internal Fixation Insertion of Stent into Subclavian [facility] Artery Insertion of Stent into Aorta [facility] Splenectomy [facility] Plan of Care Planned Activity Planned Date Details Comments Source Future Scheduled 2022-06-07 Pneumococcal Vaccine: [facility] Hospital Test 09:56:39 Pediatrics (0 to 5 Years) and At-Risk Patients (6 to 64 Years) (1 - PCV) [code = Pneumococcal Vaccine: Pediatrics (0 to 5 Years) and At-Risk Patients (6 to 64 Years) (1 - PCV)] Future Scheduled 2022-06-07 [facility] 09:56:39 (procedure) [code = [id number]] Future Scheduled 2022-06-07 COLONOSCOPY SCREENING [facility] Test 09:56:39 [code = COLONOSCOPY SCREENING] Future Scheduled 2022-06-07 COVID-19 VACCINE (3 - [facility] Test 09:56:39 Booster for Pfizer series) [code = COVID-19 VACCINE (3 - Booster for Pfizer series)] Future Scheduled 2022-06-07 INFLUENZA VACCINE Method is Hospital Test 09:56:39 [code = INFLUENZA VACCINE] Future Scheduled 2022-05-15 COLONOSCOPY SCREENING [facility] Test 15:13:20 [code = COLONOSCOPY SCREENING] Future Scheduled 2022-05-15 COVID-19 VACCINE (3 - [facility] Hospital Test 15:13:20 Booster for Pfizer series) [code = COVID-19 VACCINE (3 - Booster for Pfizer series)] Future Scheduled 2022-05-15 INFLUENZA VACCINE Method [facility] Hospital Test 15:13:20 [code = INFLUENZA VACCINE] Future Scheduled 2022-05-15 Pneumococcal Vaccine: [facility] Test 15:13:20 Pediatrics (0 to 5 Years) and At-Risk Patients (6 to 64 Years) (1 - PCV) [code = Pneumococcal Vaccine: Pediatrics (0 to 5 Years) and At-Risk Patients (6 to 64 Years) (1 - PCV)] Future Scheduled 2022-05-15 Hepatitis C screening [facility] Hospital Test 15:13:20 (procedure) [code = [id number]] Future Scheduled 2022-05-15 COLONOSCOPY SCREENING [facility] Hospital Test 15:13:20 [code = COLONOSCOPY SCREENING] Future Scheduled 2022-05-15 COVID-19 VACCINE (3 - [facility] Hospital Test 15:13:20 Booster for Pfizer series) [code = COVID-19 VACCINE (3 - Booster for Pfizer series)] Future Scheduled 2022-05-15 INFLUENZA VACCINE Method [facility] Test 15:13:20 [code = INFLUENZA VACCINE] Future Scheduled 2022-05-15 Pneumococcal Vaccine: [facility] Hospital Test 15:13:20 Pediatrics (0 to 5 Years) and At-Risk Patients (6 to 64 Years) (1 - PCV) [code = Pneumococcal Vaccine: Pediatrics (0 to 5 Years) and At-Risk Patients (6 to 64 Years) (1 - PCV)] Future Scheduled 2022-05-15 Hepatitis C screening [facility] Test 15:13:20 (procedure) [code = [id number]] Future Scheduled 2022-05-15 COLONOSCOPY SCREENING [facility] Hospital Test 15:13:20 [code = COLONOSCOPY SCREENING] Future Scheduled 2022-05-15 COVID-19 VACCINE (3 - [facility] Hospital Test 15:13:20 Booster for Pfizer series) [code = COVID-19 VACCINE (3 - Booster for Pfizer series)] Future Scheduled 2022-05-15 INFLUENZA VACCINE Method [facility] Hospital Test 15:13:20 [code = INFLUENZA VACCINE] Future Scheduled 2022-05-15 Pneumococcal Vaccine: [facility] Hospital Test 15:13:20 Pediatrics (0 to 5 Years) and At-Risk Patients (6 to 64 Years) (1 - PCV) [code = Pneumococcal Vaccine: Pediatrics (0 to 5 Years) and At-Risk Patients (6 to 64 Years) (1 - PCV)] Future Scheduled 2022-05-15 Hepatitis C screening [facility] Test 15:13:20 (procedure) [code = [id number]] Future Scheduled 2022-05-15 COLONOSCOPY SCREENING [facility] Hospital Test 15:13:20 [code = COLONOSCOPY SCREENING] Future Scheduled 2022-05-15 COVID-19 VACCINE (3 - [facility] Hospital Test 15:13:20 Booster for Pfizer series) [code = COVID-19 VACCINE (3 - Booster for Pfizer series)] Future Scheduled 2022-05-15 INFLUENZA VACCINE Method [facility] Test 15:13:20 [code = INFLUENZA VACCINE] Future Scheduled 2022-05-15 Pneumococcal Vaccine: [facility] Hospital Test 15:13:20 Pediatrics (0 to 5 Years) and At-Risk Patients (6 to 64 Years) (1 - PCV) [code = Pneumococcal Vaccine: Pediatrics (0 to 5 Years) and At-Risk Patients (6 to 64 Years) (1 - PCV)] Future Scheduled 2022-05-15 Hepatitis C screening [facility] Test 15:13:20 (procedure) [code = [id number]] Future Scheduled 2022-05-10 Pneumococcal Vaccine: [facility] Test 11:00:01 Pediatrics (0 to 5 Years) and At-Risk Patients (6 to 64 Years) (1 - PCV) [code = Pneumococcal Vaccine: Pediatrics (0 to 5 Years) and At-Risk Patients (6 to 64 Years) (1 - PCV)] Future Scheduled 2022-05-10 Hepatitis C screening [facility] Test 11:00:01 (procedure) [code = [id number]] Future Scheduled 2022-05-10 COLONOSCOPY SCREENING [facility] Test 11:00:01 [code = COLONOSCOPY SCREENING] Future Scheduled 2022-05-10 COVID-19 VACCINE (3 - [facility] Test 11:00:01 Booster for Pfizer series) [code = COVID-19 VACCINE (3 - Booster for Pfizer series)] Future Scheduled 2022-05-10 INFLUENZA VACCINE [facility] Test 11:00:01 [code = INFLUENZA VACCINE] Future Scheduled 2022-04-12 Pneumococcal Vaccine: [facility] Test 12:01:17 Pediatrics (0 to 5 Years) and At-Risk Patients (6 to 64 Years) (1 - PCV) [code = Pneumococcal Vaccine: Pediatrics (0 to 5 Years) and At-Risk Patients (6 to 64 Years) (1 - PCV)] Future Scheduled 2022-04-12 Hepatitis C screening [facility] Test 12:01:17 (procedure) [code = [id number]] Future Scheduled 2022-04-12 COLONOSCOPY SCREENING [facility] Test 12:01:17 [code = COLONOSCOPY SCREENING] Future Scheduled 2022-04-12 COVID-19 VACCINE (3 - [facility] Test 12:01:17 Booster for Pfizer series) [code = COVID-19 VACCINE (3 - Booster for Pfizer series)] Future Scheduled 2022-04-12 INFLUENZA VACCINE [facility] Test 12:01:17 [code = INFLUENZA VACCINE] Future Scheduled 2022-04-12 [facility]neumococcal [facility]ine: [facility] Test 12:01:17 Pediatrics (0 to 5 Years) and At-Risk Patients (6 to 64 Years) (1 - PCV) [code = Pneumococcal Vaccine: Pediatrics (0 to 5 Years) and At-Risk Patients (6 to 64 Years) (1 - PCV)] Future Scheduled 2022-04-12 Hepatitis C screening [facility] Test 12:01:17 (procedure) [code = 882774199] Future Scheduled 2022-04-12 COLONOSCOPY SCREENING [facility] Test 12:01:17 [code = COLONOSCOPY SCREENING] Future Scheduled 2022-04-12 COVID-19 VACCINE (3 - [facility] Test 12:01:17 Booster for Pfizer series) [code = COVID-19 VACCINE (3 - Booster for Pfizer series)] Future Scheduled 2022-04-12 [facility] 12:01:17 [code = INFLUENZA VACCINE] Future Scheduled 2022-04-12 Pneumococcal Vaccine: [facility] Test 12:01:17 Pediatrics (0 to 5 Years) and At-Risk Patients (6 to 64 Years) (1 - PCV) [code = Pneumococcal Vaccine: Pediatrics (0 to 5 Years) and At-Risk Patients (6 to 64 Years) (1 - PCV)] Future Scheduled 2022-04-12 Hepatitis C screening [facility] Test 12:01:17 (procedure) [code = 505513008] Future Scheduled 2022-04-12 COLONOSCOPY SCREENING [facility] Test 12:01:17 [code = COLONOSCOPY SCREENING] Future Scheduled 2022-04-12 COVID-19 VACCINE (3 - [facility] Test 12:01:17 Booster for Pfizer series) [code = COVID-19 VACCINE (3 - Booster for Pfizer series)] Future Scheduled 2022-04-12 [facility] Test 12:01:17 [code = INFLUENZA VACCINE] Future Scheduled 2022-04-12 Pneumococcal Vaccine: [facility] Test 12:01:17 Pediatrics (0 to 5 Years) and At-Risk Patients (6 to 64 Years) (1 - PCV) [code = Pneumococcal Vaccine: Pediatrics (0 to 5 Years) and At-Risk Patients (6 to 64 Years) (1 - PCV)] Future Scheduled 2022-04-12 Hepatitis C screening [facility] Test 12:01:17 (procedure) [code = 246572612] Future Scheduled 2022-04-12 COLONOSCOPY SCREENING [facility] Test 12:01:17 [code = COLONOSCOPY SCREENING] Future Scheduled 2022-04-12 COVID-19 VACCINE (3 - [facility] Test 12:01:17 Booster for Pfizer series) [code = COVID-19 VACCINE (3 - Booster for Pfizer series)] Future Scheduled 2022-04-12 [facility] 12:01:17 [code = INFLUENZA VACCINE] Future Scheduled 2022-04-12 Pneumococcal Vaccine: [facility] Test 12:01:17 Pediatrics (0 to 5 Years) and At-Risk Patients (6 to 64 Years) (1 - PCV) [code = Pneumococcal Vaccine: Pediatrics (0 to 5 Years) and At-Risk Patients (6 to 64 Years) (1 - PCV)] Future Scheduled 2022-04-12 Hepatitis C screening [facility] Test 12:01:17 (procedure) [code = 299211845] Future Scheduled 2022-04-12 COLONOSCOPY SCREENING [facility] Test 12:01:17 [code = COLONOSCOPY SCREENING] Future Scheduled 2022-04-12 COVID-19 VACCINE (3 - [facility] Test 12:01:17 Booster for Pfizer series) [code = COVID-19 VACCINE (3 - Booster for Pfizer series)] Future Scheduled 2022-04-12 [facility]ACC[facility] Test 12:01:17 [code = INFLUENZA VACCINE] Future Scheduled 2021-12-30 HEPATITIS B VACCINES [facility] Test 03:33:27 (1 of 3 - 3-dose series) [code = HEPATITIS B VACCINES (1 of 3 - 3-dose series)] Future Scheduled 2021-12-30 Pneumococcal Vaccine: [facility] Test 03:33:27 Pediatrics (0 to 5 Years) and At-Risk Patients (6 to 64 Years) (1 - PCV) [code = Pneumococcal Vaccine: Pediatrics (0 to 5 Years) and At-Risk Patients (6 to 64 Years) (1 - PCV)] Future Scheduled 2021-12-30 Hepatitis C screening [facility] Test 03:33:27 (procedure) [code = 790574763] Future Scheduled 2021-12-30 COLONOSCOPY SCREENING [facility] Test 03:33:27 [code = COLONOSCOPY SCREENING] Future Scheduled 2021-12-30 COVID-19 VACCINE (3 - [facility] Test 03:33:27 Booster for Pfizer series) [code = COVID-19 VACCINE (3 - Booster for Pfizer series)] Future Scheduled 2021-12-30 INFLUENZA VACCINE [facility] Test 03:33:27 [code = INFLUENZA VACCINE] Future Scheduled 2021-11-29 HEPATITIS B VACCINES Met [facility] Test 05:50:55 (1 of 3 - 3-dose series) [code = HEPATITIS B VACCINES (1 of 3 - 3-dose series)] Future Scheduled 2021-11-29 COVID-19 VACCINE (#1) [facility] Test 05:50:55 [code = COVID-19 VACCINE (#1)] Future Scheduled 2021-11-29 Pneumococcal Vaccine: [facility] Test 05:50:55 Pediatrics (0 to 5 Years) and At-Risk Patients (6 to 64 Years) (1 - PCV) [code = Pneumococcal Vaccine: Pediatrics (0 to 5 Years) and At-Risk Patients (6 to 64 Years) (1 - PCV)] Future Scheduled 2021-11-29 Hepatitis C screening [facility] Test 05:50:55 (procedure) [code = [id number]] Future Scheduled 2021-11-29 COLONOSCOPY SCREENING [facility] Test 05:50:55 [code = COLONOSCOPY SCREENING] Future Scheduled 2021-11-29 INFLUENZA VACCINE [facility] Test 05:50:55 [code = INFLUENZA VACCINE] Future Scheduled 2021-11-29 HEPATITIS B VACCINES [facility] Test 05:50:55 (1 of 3 - 3-dose series) [code = HEPATITIS B VACCINES (1 of 3 - 3-dose series)] Future Scheduled 2021-11-29 COVID-19 VACCINE (#1) [facility] Test 05:50:55 [code = COVID-19 VACCINE (#1)] Future Scheduled 2021-11-29 Pneumococcal Vaccine: [facility] Test 05:50:55 Pediatrics (0 to 5 Years) and At-Risk Patients (6 to 64 Years) (1 - PCV) [code = Pneumococcal Vaccine: Pediatrics (0 to 5 Years) and At-Risk Patients (6 to 64 Years) (1 - PCV)] Future Scheduled 2021-11-29 Hepatitis C screening [facility] Test 05:50:55 (procedure) [code = 490992583] Future Scheduled 2021-11-29 COLONOSCOPY SCREENING [facility] Test 05:50:55 [code = COLONOSCOPY SCREENING] Future Scheduled 2021-11-29 INFLUENZA VACCINE [facility] Test 05:50:55 [code = INFLUENZA VACCINE] Future Scheduled 2021-11-29 HEPATITIS B VACCINES [facility] Test 05:50:55 (1 of 3 - 3-dose series) [code = HEPATITIS B VACCINES (1 of 3 - 3-dose series)] Future Scheduled 2021-11-29 COVID-19 VACCINE (#1) [facility] Test 05:50:55 [code = COVID-19 VACCINE (#1)] Future Scheduled 2021-11-29 Pneumococcal Vaccine: [facility] Test 05:50:55 Pediatrics (0 to 5 Years) and At-Risk Patients (6 to 64 Years) (1 - PCV) [code = Pneumococcal Vaccine: Pediatrics (0 to 5 Years) and At-Risk Patients (6 to 64 Years) (1 - PCV)] Future Scheduled 2021-11-29 Hepatitis C screening [facility] Test 05:50:55 (procedure) [code = 852867547] Future Scheduled 2021-11-29 COLONOSCOPY SCREENING [facility] Test 05:50:55 [code = COLONOSCOPY SCREENING] Future Scheduled 2021-11-29 INFLUENZA VACCINE [facility] Test 05:50:55 [code = INFLUENZA VACCINE] Future Scheduled 2021-11-29 HEPATITIS B VACCINES [facility] Test 05:50:55 (1 of 3 - 3-dose series) [code = HEPATITIS B VACCINES (1 of 3 - 3-dose series)] Future Scheduled 2021-11-29 COVID-19 VACCINE (#1) [facility] Test 05:50:55 [code = COVID-19 VACCINE (#1)] Future Scheduled 2021-11-29 Pneumococcal Vaccine: [facility] Test 05:50:55 Pediatrics (0 to 5 Years) and At-Risk Patients (6 to 64 Years) (1 - PCV) [code = Pneumococcal Vaccine: Pediatrics (0 to 5 Years) and At-Risk Patients (6 to 64 Years) (1 - PCV)] Future Scheduled 2021-11-29 [facility] Test 05[facility]50:55 (procedure) [code = 542065283] Future Scheduled 2021-11-29 COLONOSCOPY SCREENING [facility] Test 05:50:55 [code = COLONOSCOPY [...] Future Scheduled 2021-11-16 HEPATITIS B VACCINES Met [facility] Test 04:27:12 (1 of 3 - 3-dose series) [code = HEPATITIS B VACCINES (1 of 3 - 3-dose series)] Future Scheduled 2021-11-16 COVID-19 VACCINE (#1) [facility] Test 04:27:12 [code = COVID-19 VACCINE (#1)] Future Scheduled 2021-11-16 Pneumococcal Vaccine: [facility] Test 04:27:12 Pediatrics (0 to 5 Years) and At-Risk Patients (6 to 64 Years) (1 - PCV) [code = Pneumococcal Vaccine: Pediatrics (0 to 5 Years) and At-Risk Patients (6 to 64 Years) (1 - PCV)] Future Scheduled 2021-11-16 Hepatitis C screening [facility] Test 04:27:12 (procedure) [code = 884497804] Future Scheduled 2021-11-16 INFLUENZA VACCINE [facility] Test 04:27:12 [code = INFLUENZA VACCINE] [...] SCREENING (12+)] Diagnostic Test 2019-02-21 17-hydroxyprogesterone [facility] Pending 00:00:00 , quantitative, serum Group [...] [facility] Test 00:00:00 (procedure) [code = [facility] 83321770] Future Scheduled [address] [facility] (procedure) [code = [facility] 91504507] Future Scheduled [address] [facility] Test 00:00:00 (procedure) [code = [facility] 89735571] Future Scheduled [address] [facility] Test 00:00:00 (procedure) [code = [facility] 23769657] Future Scheduled [address] [facility] Test 00:00:00 (procedure) [code = [facility] Center 58832922] Future Scheduled 1994 DTAP/TDAP/TD VACCINES [facility] [...] [facility] l Center colon (procedure) [code = 747944693] Future Scheduled [address] [facility] of [facility] Center colon (procedure) [code = 969081659] Future Scheduled [address] [facility] colon (procedure) [code = 391320087] Future Scheduled [address] [facility] 00:[facility] ne[facility] colon (procedure) [code = 117926869] Future Scheduled [address] [facility] 00:[facility] neoplasm of [facility] Center colon (procedure) [code = 472012355] Future Scheduled 1975 [facility]igmoidoscopy [facility] Future Scheduled [address] [facility] 00:[facility] ne[facility] Center colon (procedure) [code = 935206913] Future Scheduled [address] [facility] Test 00:00:00 malignant neoplasm of [facility] Center colon (procedure) [code = 338713670] Future Scheduled [address] [facility] 00:00:00 (combo) [code = CT Medical C enter Colonography (combo)] Future Scheduled [address] [facility] Test 00:00:00 malignant neoplasm of [facility] Center colon (procedure) [code = 700562048] Future Scheduled [address] [facility] Test 00:00:00 malignant neoplasm of [facility] Center colon (procedure) [code = 104989142] Future Scheduled [address] [facility] Test 00:00:00 malignant neoplasm of [facility] Center colon (procedure) [code = 476191090] Future Scheduled [address] [facility] Test 00:00:00 malignant neoplasm of [facility] Center colon (procedure) [code = 429963518] Future Scheduled [address] [facility] Test 00:00:00 malignant neoplasm of [facility] Center colon (procedure) [code = 807382539] Future Scheduled 1975 Sigmoidoscopy [code = [facility] [...] Medica l Center colon (procedure) [code = 656204398] Future Scheduled [address] [facility] Test 00:00:00 malignant neoplasm of [facility] Center colon (procedure) [code = 752690467] Future Scheduled [address] [facility] Test 00:00:00 malignant neoplasm of [facility] Center colon (procedure) [code = 134368196] Future Scheduled [address] [facility] Test 00:00:00 malignant neoplasm of [facility] Center colon (procedure) [code = 350144129] Future Scheduled 1975 [facility]] Medical Dennis r Future Scheduled [address] [facility] 00:00:00 (combo) [code = CT Medical C enter Colonography (combo)] Future Scheduled [address] [facility] Test 00:00:00 malignant neoplasm of [facility] Center colon (procedure) [code = 703996292] Future Scheduled [address] [facility] Test 00:00:00 malignant neoplasm of [facility] Center colon (procedure) [code = 101442541] Future Scheduled [address] [facility] Test 00:00:00 malignant neoplasm of [facility] Center colon (procedure) [code = 798563831] Future Scheduled [address] [facility] Test 00:00:00 malignant neoplasm of Medica l Center colon (procedure) [code = 416164856] Future Scheduled 1975 [facility]] Medical Dennis r Encounters Start End Encounter Admission Attending Care Care Encounter Source Date/Time Date/Time Type Type Clinicians Facility Department ID 2022-06-02 [facility] [id number] [facility]:00 Encounter [facility] 2022-06-02 [facility] [id number] [facility] 00:[facility]:00 Encounter [facility] 2022-02-15 Inpatient TEXANA TEXANA [id number] [place] 10:46:20 [id number] [place] 2021-11-19 Outpatient [facility] [id number] [place] 10:07:20 [id number] [facility] 2021-10-16 [facility] [id number] [place] 14:38:07 ENRIQUE [id number] [facility] 2021-09-25 [facility] [id number] [place] 09:31:27 ENRIQUE [id number] [facility] 2021-09-17 [facility] [id number] [place] 10:08:53 ENRIQUE [id number] [facility] 2021-09-04 Outpatient [facility] [id number] [place] 12:19:20 ENRIQUE [id number] [facility] 2015-12-08 Inpatient C [facility] [id number] . 18:48:00 [facility] 2022-06-11 2022-06-11 Outpatient [facility] PRIV PRIV 205 [id number] [facility] 00:00:00 00:00:00 d_J [id number] Medica l 2022-06-10 2022-06-10 Transition RANJIT Ayon 1.2.840.114 [id number] Univers 00:00:00 00:00:00 of Care Ashleigh HIDALGO 350.1.13.10 i ty jacqueline RAMSE[place]2.[place] [phone] [facility] [address] 2022-06-04 2022-06-07 Inpatient U TERRI [facility] [id number] Univers 01:18:00 00:05:00 LEROY palacios [facility] 2022-06-04 2022-06-07 Hospital Leroy Murray 1.2.840 .114 [id number] Univers 01:18:00 00:05:00 Encounter Angie Pascual 350.1.13.10 ity [facility] 4.2.7.2.686 Darian as [id number] [facility] [address] 2022-06-05 2022-06-05 Surgery Crescencio [facility] 1.2.595.731 [id number] Univers 12:15:00 13:00:00 Akshata SIENNA 350.1.13.10 it of SCIENCES 4.2.7.2.686 Darian as BLDG [phone] [facility] [address] 2022-06-02 2022-06-02 Outpatient [facility]Tod PRIV PRIV 205 [id number] [facility] 00:00:00 00:00:00 d_J [id number] Medica l 2022-06-02 2022-06-02 Outpatient [facility]Tod PRIV PRIV 205 [id number] [facility] 00:00:00 00:00:00 d_J [id number] Medica l 2022-05-29 2022-05-29 Transition Stanley OUMARTirso 1.2.840.114 [id number] Univers 00:00:00 00:00:00 of Care Lana HIDALGO 350.1.13.10 ity [facility] 4.2.7.2.[place] [phone] [facility] [address] 2022-05-09 2022-05-28 Inpatient X [facility] [id number] Univers 15:17:00 12:12:00 ity [facility] 2022-05-09 2022-05-28 [facility] 1.2.840.1 14 [id number] Univers 15:17:00 12:12:00 Encounter Natalie Mustafa 350.1.13 .10 ity [facility] 4.2.7.2.686 Jean-Claude Saravia [phone] Ak dical [address] 2022-05-22 2022-05-22 Surgery Jean-Claude Cohen 1.2.399.247 [id number] Univers 08:35:00 12:26:00 JOAN 350.1.13.10 it y of [facility] 4.2.7.2.686 Darian as [phone] [facility] [address] 2022-05-14 2022-05-14 Outpatient [facility]Tod PRIV PRIV 205 [id number] [facility] 00:00:00 00:00:00 d_J [id number] Medica l 2022-05-14 2022-05-14 Outpatient [facility]Tod PRIV PRIV 205 [id number] [facility] 00:00:00 00:00:00 d_J [id number] Medica l 2022-05-14 2022-05-14 Outpatient [facility]Tod PRIV PRIV 205 [id number] [facility] 00:00:00 00:00:00 d_J [id number] Medica l 2022-05-13 2022-05-13 Case [facility], 1.2.840.1 [id number] Univers 00:00:00 00:00:00 Management Care 24236.1.1 i ty of Transition 3.104.2.7 Darian as .3.895043 Medica l .8 Branch 2022-05-10 2022-05-10 Outpatient [facility]Tod PRIV PRIV 205 [id number] [facility] 00:00:00 00:00:00 d_J [id number] Medica l 2022-05-09 2022-05-09 Travel 1.2.840.1 1.2.851.231 [id number] Univers 00:00:00 00:00:00 47708.1.1 350.1.13.10 ity of 3.104.2.[place].698 [place]3.214811 084.8 Medica l .8 [place] 2022-04-30 2022-04-30 [facility] 131 [facility] 00:00:00 00:00:00 PIA Padron: Health - Med ical [address] [address] , Ph. 2022-04-29 2022-04-29 Outpatient [facility]Tod PRIV PRIV 205 [id number] [facility] 00:00:00 00:00:00 d_J [id number] Medica l 2022-04-16 2022-04-16 [facility] [id number] [facility] 00:00:00 00:00:00 PIA Padron: Health - Med ical [address] [address] , Ph. 2022-04-10 2022-04-10 Outpatient [facility]Tod PRIV PRIV 205 [id number] [facility] 00:00:00 00:00:00 d_J [id number] Medica l 2022-04-10 2022-04-10 Outpatient [facility]Tod PRIV PRIV 205 [id number] [facility] 00:00:00 00:00:00 d_J [id number] Medica l 2022-04-10 2022-04-10 Outpatient [facility]Tod PRIV PRIV 205 [id number] [facility] 00:00:00 00:00:00 d_J [id number] Medica l 2022-04-02 2022-04-02 [facility] 103 [facility] 00:00:00 00:00:00 PIA Padron: Health - Med ical [address] [address] , Ph. 2022-03-29 2022-03-29 Outpatient [facility]Tod PRIV PRIV 205 [id number] [facility] 00:00:00 00:00:00 d_J [id number] Medica l 2022-03-21 2022-03-21 [facility] [id number] Univers 00:00:00 00:00:00 [facility] 2022-03-14 2022-03-14 Outpatient R [facility] [id number] Univers 00:00:00 00:00:00 [facility] 2022-03-12 2022-03-12 Mara [facility] [id number] [facility] 00:00:00 00:00:00 PIA Padron: Health - Med ical [address] [address] , Ph. 2022-03-05 2022-03-05 Robert Mojica [facility] 202 [id number] [facility] 00:00:00 00:00:00 Fabio [facility] - Med ical : [address] [address] , Ph. 2022-03-01 2022-03-01 Travel 1.2.840.1 1.2.317.902 [id number] Univers 00:00:00 00:00:00 71762.1.1 350.1.13.10 ity of 3.104.2.7 [place].3.698 [place] .3.889794 084.8 Medica l .8 [place] 2022-02-26 2022-02-26 [facility] [id number] Univers 10:40:00 10:40:00 [facility] 2022-02-20 2022-02-20 Outpatient [facility] [id number] Univers 13:00:00 13:00:00 [facility] 2022-02-19 2022-02-19 Mara [facility] 122 [facility] 00:00:00 00:00:00 PIA Padron: Health - Med ical [address] [address] , Ph. 2022-02-12 2022-02-12 [facility] [id number] Univers 13:00:00 13:00:00 [facility] 2022-02-05 2022-02-05 Mara [facility] 108 [facility] 00:00:00 00:00:00 PIA Padron: Health - Med ical [address] [address] , Ph. 2022-01-22 2022-01-22 Office Conrad 1.2.840.1 [id number] Methodi 13:45:00 15:23:28 Visit Aubree 79604.1.1 615 [facility] 3.430.2.7 Hosp carly .3.947624 l .8 2022-01-22 2022-01-22 Office Conrad, 1.2.840.1 [id number] Methodi 13:45:00 15:23:28 Visit Aubree 82890.1.[address] [place] 3.430.2.7 Hosp carly .3.313831 l .8 2022-01-22 2022-01-22 Travel 1.2.840.1 1.2.395.561 [id number] [facility] 00:00:00 00:00:[address] 3.430.2.7 0.2.7.3.698 Ho spita .3.896960 084.8 l .8 2022-01-22 2022-01-22 Travel 1.2.840.1 1.2.257.401 [id number] [facility]i 00:00:00 00:00:[address] 3.430.2.7 0.2.7.3.698 Ho spita .3.627397 084.8 l .8 2022-01-18 2022-01-18 [facility] 00:00:00 00:00:00 PIA Padron: Health - Med ical [address] [address] , Ph. 2022-01-11 2022-01-11 Telephone Bunny Loving 1.2.840.1 [id number] Methodi 00:00:00 00:00:[address] 3.430.2.7 Hospit a .3.699668 l .8 2022-01-11 2022-01-11 Telephone Bunny Loving 1.2.840.1 [id number] [facility]i 00:00:00 00:00:[address] 3.430.2.7 Hospit a .3.327315 l .8 2022-01-04 2022-01-04 Mar[facility] 007 [facility] 00:00:00 00:00:00 PIA Padron: Health - Med ical [address] [address] , Ph. 2021-12-26 2021-12-26 [facility] 1.2.602.629 [id number] Univers 00:00:00 00:00:00 Miguel Ángel YANEZ [facility].13.10 [facility] [place] PROFESS [id number] Ak dical NAL [address] [place] [address] 2021-12-25 2021-12-25 Outpatient R [facility] [id number] Univers 13:00:00 14:05:49 SENDIL [facility] 2021-12-25 2021-12-25 [facility] 1.2.840.114 [id number] Univers 13:00:00 14:05:49 Visit Miguel Ángel YANEZ [facility].13.10 [facility] [place] [id number] Ak bola NAL [address] [place] [address] 2021-12-25 2021-12-25 Outpatient [facility]Tod PRIV PRIV 205 [id number] [facility] 00:00:00 00:00:00 d_J [id number] Medica l 2021-12-25 2021-12-25 Outpatient [facility]_Tod PRIV PRIV 205 [id number] [facility] 00:00:00 00:00:00 d_J [id number] Medica l 2021-12-25 2021-12-25 Outpatient [facility]_Tod PRIV PRIV 205 [id number] [facility] 00:00:00 00:00:00 d_J [id number] Medica l 2021-12-25 2021-12-25 Outpatient [facility]_Tod PRIV PRIV 205 [id number] [facility] 00:00:00 00:00:00 d_J [id number] Medica l 2021-12-25 2021-12-25 Outpatient [facility]_Tod PRIV PRIV 205 [id number] [facility] 00:00:00 00:00:00 d_J [id number] Medica l 2021-12-25 2021-12-25 Orders Doctor RINA 1.2.840.114 [id number] Univers 00:00:00 00:00:00 Only Unassigned, JOAN 350.1.13.10 ity of [place] [facility] 4.2.7.2.686 Darian as [phone] [place] [address] [address] 2021-12-25 2021-12-25 [facility] 927 [facility] 00:00:00 00:00:00 PIA Padron: Health - Med ical [address] [address] , Ph. 2021-12-20 2021-12-20 Telephone Phong 1.2.840.1 [id number] Methodi 00:00:00 00:00:[address] 3.430.2.7 Hospit a .3.773297 l .8 2021-12-20 2021-12-20 Telephone Phong 1.2.840.1 [id number] Methodi 00:00:00 00:00:[address] 3.430.2.7 Hospit a .3.322538 l .8 2021-12-13 2021-12-18 [facility] Jorje Connell 1.2.840.1 1 [id number] Methodi 16:41:00 20:55:00 Encounter Alma Whitman 83322.1.[address] [place], Rakel Maynor 3.430.2.7 Hospita Nakul Krueger .3.542418 l .8 2021-12-13 2021-12-18 [facility] Jorje Connell 1.2.840.1 1 [id number] Methodi 16:41:00 20:55:00 Encounter Alma Whitman [address] Rakel Johnson 3.430.2.7 [facility] Nakul Krueger .3.074158 l .8 2021-12-15 2021-12-15 Anesthesia Virgilio Purvisnegra 1.2.840.1 [id number] Methodi 09:41:00 15:01:00 Event [place] [address].1.[address] 3.430.2.7 Hospit a .3.408753 l .8 2021-12-15 2021-12-15 Anesthesia Bolivarjean pierreVirgilio avilez Sergio 1.2.840.1 [id number] Methodi 09:41:00 15:01:00 Event [place] [address]885.1.[address] 3.430.2.7 Hospit a .3.523401 l .8 2021-12-15 2021-12-15 Surgery Bunny Loving 1.2.840.1 [id number] Methodi 09:15:00 11:25:[address] 3.430.2.7 Hospit a .3.367538 l .8 2021-12-15 2021-12-15 Surgery Bunny Loving 1.2.840.1 [id number] 21001 80432 Methodi 09:15:00 11:25:[address] 3.430.2.7 Hospit a .3.287921 l .8 2021-12-13 2021-12-13 Travel 1.2.840.1 1.2.149.824 4158 481069 Methodi 00:00:00 00:00:[address] 3.430.2.7 0.2.7.3.698 Ho spita .3.955180 084.8 l .8 2021-12-13 2021-12-13 Travel 1.2.840.1 1.2.209.511 6550 655702 Methodi 00:00:00 00:00:00 03389.1.1 350.1.13.43 836 3.430.2.7 0.2.7.3.698 Ho spita .3.931378 084.8 l .8 2021-12-12 2021-12-12 Outpatient [facility] PRIV PRIV 205 [id number] [facility] 00:00:00 00:00:00 d_J [id number] Medica l 2021-12-11 2021-12-11 Outpatient Vito PRIV PRIV [id number] 8-3 00:00:00 00:00:00 Mara 7bc-11ed-b [id number] f31d7d 2021-12-11 2021-12-11 Mara [facility] [id number] [facility] 00:00:00 00:00:00 PIA [facility]: Health - Med ical [address] [address] , Ph. 2021-12-08 2021-12-08 Outpatient [facility] PRIV PRIV 205 [id number] [facility] 00:00:00 00:00:00 d_J [id number] Medica l 2021-11-24 2021-11-24 Outpatient [facility] PRIV PRIV 205 [id number] [facility] 00:00:00 00:00:00 d_J [id number] Medica l 2021-11-23 2021-11-23 Outpatient Vito PRIV PRIV [id number] 0-2 00:00:00 00:00:00 Mara k43-94th-2 [id number] [id number] 2021-11-23 2021-11-23 Mara [facility] [id number] [facility] 00:00:00 00:00:00 PIA [facility]: Health - Med ical [address] [address] , Ph. 2021-11-20 2021-11-20 Outpatient [facility]Tod PRIV PRIV 205 [id number] [facility] 00:00:00 00:00:00 d_J [id number] Medica l 2021-11-20 2021-11-20 Outpatient THANG Padron [id number] a-2 00:00:00 00:00:00 Mara g0v-03jh-e fbb-dc7df1 188fab 2021-11-20 2021-11-20 Mara [facility] [id number] [facility] 00:00:00 00:00:00 PIA Padron: Health - Med ical [address] [address] , Ph. 2021-11-16 2021-11-16 Outpatient [facility]Tod PRIV PRIV 205 [id number] [facility] 00:00:00 00:00:00 d_J [id number] Medica l 2021-11-08 2021-11-08 Outpatient [facility] PRIV PRIV 205 [id number] [facility] 00:00:00 00:00:00 d_J [id number] Medica l 2021-11-08 2021-11-08 Robert Yunior [facility] 202 [id number] [facility] 00:00:00 00:00:00 Fabio [facility] MD: [address] [address] , Ph. 2021-11-08 2021-11-08 Outpatient Fabio [facility] PRIV [id number] 066-1 00:00:00 00:00:00 Robert Mojica i74-58eh-i [id number]-[id number] 4b2cc8 2021-11-02 2021-11-02 Outpatient [facility] PRIV PRIV 205 [id number] [facility] 00:00:00 00:00:00 d_J [id number] Medica l 2021-11-02 2021-11-02 Mara [facility] [id number] [facility] 00:00:00 00:00:00 PIA [facility]ron: Health - Med ical [address] [address] , Ph. 2021-11-02 2021-11-02 Outpatient Vito PRIV PRIV [id number] e-1 00:00:00 00:00:00 Mara ce7-11ed-b [id number] x2618x 2021-10-28 2021-10-28 Outpatient [facility]Tod PRIV PRIV 205 [id number] [facility] 00:00:00 00:00:00 d_J [id number] Medica l 2021-10-20 2021-10-20 Outpatient [facility]Tod PRIV PRIV 205 [id number] [facility] 10:42:00 10:42:00 d_J [id number] Medica l 2021-10-19 2021-10-19 Outpatient [facility]Tod PRIV PRIV 205 [id number] [facility] 07:48:00 07:48:00 d_J [id number] Medica l 2021-10-19 2021-10-19 Mara [facility] [id number] [facility] 00:00:00 00:00:00 PIA [facility]: [facility] - Med ical [address] [address] , Ph. 2021-10-19 2021-10-19 Outpatient Vito PRIV PRIV [id number] e-1 00:00:00 00:00:00 Mara 12e-11ed-a c66-08w2e2 58bb2d 2021-10-12 2021-10-12 Outpatient [facility] PRIV PRIV 205 [id number] [facility] 03:53:00 03:53:00 d_J [id number] Medica l 2021-10-12 2021-10-12 Mara [facility] [id number] [facility] 00:00:00 00:00:00 PIA [facility]: Health - Med ical [address] [address] , Ph. 2021-10-12 2021-10-12 Outpatient Vito, PRIV PRIV 1ef7xwr 2-0 00:00:00 00:00:00 Mara af6-11ed-9 o6w-q0q6u6 8t816x 2021-10-09 2021-10-09 Outpatient AMBREEN_JUAN [facility]ES DE [facility] 767 [facility] 11:56:00 11:56:00 [facility] 2021-10-05 2021-10-05 Outpatient [facility] PRIV PRIV 205 [id number] [facility] 11:01:00 11:01:00 d_J [id number] Medica l 2021-10-04 2021-10-04 Outpatient [facility]Tod PRIV PRIV 205 [id number] [facility] 09:10:00 09:10:00 d_J [id number] Medica l 2021-10-03 2021-10-03 Outpatient [facility]Tod PRIV PRIV 205 [id number] [facility] 02:45:00 02:45:00 d_J [id number] Medica l 2021-10-02 2021-10-02 Outpatient [facility] PRIV PRIV 205 [id number] [facility] 05:08:00 05:08:00 d_J [id number] Medica l 2021-10-02 2021-10-02 Mara [facility] [id number] [facility] 00:00:00 00:00:00 PIA Padron: Health - Med ica [address] [address] , Ph. 2021-10-02 2021-10-02 Outpatient Vito PRIV PRIV [id number] c-f 00:00:00 00:00:00 Mara z02-59ft-g [id number] 21b3b7 2021-09-26 2021-09-26 Outpatient [facility] PRIV PRIV 205 [id number] [facility] 09:13:00 09:13:00 d_J [id number] Medica l 2021-09-26 2021-09-26 Mara [facility] [id number] [facility] 00:00:00 00:00:00 PIA Pad[facility]: [facility] - Med ical [address] [address] , Ph. 2021-09-26 2021-09-26 Outpatient THANG [facility] PRIV [id number] 2-f 00:00:00 00:00:00 Mara dec-11ec-8 [id number] 21b3b7 2021-09-25 2021-09-25 Office ADRI Thompson [facility] 1.2.840.114 [id number] [place] 11:15:00 12:43:09 Visit [facility] 350.1.13.58 Benny RAMSEY 1 9.2.7.2.686 [id number] 2 2021-09-21 2021-09-21 Outpatient [facility] PRIV PRIV 205 [id number] [facility] 04:44:00 04:44:00 d_J [id number] Medica l 2021-09-17 2021-09-17 Outpatient [facility]Tod PRIV PRIV 205 [id number] [facility] 11:11:00 11:11:00 d_J [id number] Medica l 2021-09-13 2021-09-13 Outpatient [facility]Tod PRIV PRIV 205 [id number] [facility] 10:39:00 10:39:00 d_J [id number] Medica l 2021-09-13 2021-09-13 Robert Mojica [facility] 00:00:00 00:00:00 Fabio [facility] MD: [address] [address] , Ph. 2021-09-13 2021-09-13 Outpatient THANG Mccarthy PRIV [id number] c76-f 00:00:00 00:00:00 Robert Mojica 3ee-11ec-8 [id number] [id number] 2021-09-10 2021-09-10 Outpatient [facility]Tod PRIV PRIV 205 [id number] [facility] 03:35:00 03:35:00 d_J [id number] Medica l 2021-09-04 2021-09-04 Outpatient [facility]Tod PRIV PRIV 205 [id number] [facility] 07:32:00 07:32:00 d_J [id number] Medica l 2021-09-04 2021-09-04 Outpatient Vito PRIV PRIV [id number] 2-e 00:00:00 00:00:00 Mara q0e-43ae-4 bfc-04j737 [id number] 2021-09-04 2021-09-04 Mara [facility] [id number] [facility] 00:00:00 00:00:00 PIA Padron: Health - Med ical [address] [address] , Ph. 2021-08-31 2021-08-31 Outpatient [facility]Tod PRIV PRIV 205 [id number] [facility] 02:07:00 02:07:00 d_J [id number] Medica l 2021-08-23 2021-08-23 Outpatient [facility]Tod PRIV PRIV 205 [id number] [facility] 11:05:00 11:05:00 d_J [id number] Medica l 2021-08-22 2021-08-22 Outpatient [facility] PRIV PRIV 205 [id number] [facility] 07:00:00 07:00:00 d_J [id number] Medica l 2021-08-22 2021-08-22 Outpatient Vito PRIV PRIV [id number] 8-e 00:00:00 00:00:00 Mara 8t9-98px-x [id number] [id number] 2021-08-22 2021-08-22 Mara [facility] [id number] [facility] 00:00:00 00:00:00 PIA Padron: Health - Med ical [address] [address] , Ph. 2021-08-19 2021-08-19 Outpatient [facility]Tod PRIV PRIV 205 [id number] [facility] 10:45:00 10:45:00 d_J [id number] Medica l 2021-08-14 2021-08-14 Outpatient [facility]Tod PRIV PRIV 205 [id number] [facility] 03:16:00 03:16:00 d_J [id number] Medica l 2021-08-14 2021-08-14 Outpatient Vito, PRIV PRIV [id number] 4-d 00:00:00 00:00:00 Mara doula-11ec-8 [id number] 2021-08-14 2021-08-14 Mara [facility] [id number] [facility] 00:00:00 00:00:00 PIA Padron: Health - Med ical [address] [address] , Ph. 2021-08-10 2021-08-10 Outpatient [facility]Tod PRIV PRIV 205 [id number] [facility] 01:10:00 01:10:00 d_J [id number] Medica l 2021-08-10 2021-08-10 Outpatient Vito PRIV PRIV [id number] e-d 00:00:00 00:00:00 Mara h7j-30ae-t [id number]-[id number] [id number] 2021-08-10 2021-08-10 Mara [facility] [id number] [facility] 00:00:00 00:00:00 PIA Padron: Health - Med ical [address] [address] , Ph. 2021-08-08 2021-08-08 Outpatient [facility]Tod PRIV PRIV 205 [id number] [facility] 10:53:00 10:53:00 d_J [id number] Medica l 2021-08-04 2021-08-04 Outpatient [facility]Tod PRIV PRIV 205 [id number] [facility] 10:45:00 10:45:00 d_J [id number] Medica l 2021-07-31 2021-07-31 Outpatient [facility]Tod PRIV PRIV 205 [id number] [facility] 07:56:00 07:56:00 d_J [id number] Medica l 2021-07-31 2021-07-31 Outpatient THANG Padron PRIV [id number] 4-d 00:00:00 00:00:00 Mara 159-11ec-9 [id number] 2021-07-31 2021-07-31 Mara [facility] [id number] [facility] 00:00:00 00:00:00 PIA Padron: Health - Med ical [address] [address] , Ph. 2021-07-27 2021-07-27 Outpatient [facility]Tod PRIV PRIV 205 [id number] [facility] 08:30:00 08:30:00 d_J [id number] Medica l 2021-07-27 2021-07-27 Outpatient THANG [facility]ron PRIV [id number] 0-c 00:00:00 00:00:00 Mara j79-37nj-r [id number] [id number] 2021-07-27 2021-07-27 Mara [facility] [id number] [facility] 00:00:00 00:00:00 PIA Padron: Health - Med ical [address] [address] , Ph. 2021-07-19 2021-07-19 Outpatient [facility]Tod PRIV PRIV 205 [id number] [facility] 08:26:00 08:26:00 d_J [id number] Medica l 2021-07-19 2021-07-19 Outpatient FabioTHANG kasper PRIV [id number] 644-c 00:00:00 00:00:00 Robert Mojica 7bc-11ec-a [id number]-[id number] [id number] 2021-07-19 2021-07-19 Robert Mojica [facility] [id number] [facility] 00:00:00 00:00:00 Fabio, Health - Med ical MD: [address] , [place] [address] , Ph. 2021-07-19 2021-07-19 Outpatient Fabio, PRIV PRIV [id number] 72e-[id number] 00:00:00 00:00:00 Robert Mojica 1fa-11ed-a [id number]-bf85a1 8efc9b 2021-07-13 2021-07-13 Outpatient [facility]Tod PRIV PRIV 205 [id number] [facility] 02:12:00 02:12:00 d_J [id number] Medica l 2021-07-12 2021-07-12 Outpatient [facility]Tod PRIV PRIV 205 [id number] [facility] 05:07:00 05:07:00 d_J [id number] Medica l 2021-07-12 2021-07-12 Outpatient [place], PRIV PRIV [id number] c-b 00:00:00 00:00:00 June t6y-79wi-h [id number]-p0ws5r 4c2aa0 2021-07-12 2021-07-12June [facility] 14 [facility] 00:00:00 00:00:00 [place], [facility] RACK CARRIER: [address] , [place] [address] , Ph. 2021-07-12 2021-07-12 Outpatient Leslie, PRIV PRIV [id number] a-f 00:00:00 00:00:00 June ed0-11ec-8 [id number] [id number] 2021-07-11 2021-07-11 Outpatient [facility]Tod PRIV PRIV 205 [id number] [facility] 10:53:00 10:53:00 d_J [id number] Medica l 2021-07-06 2021-07-06 Outpatient [facility]Spa PRIV PRIV 205 [id number] [facility] 05:28:00 05:28:00 [place] [id number] Medica l 2019-02-20 2019-02-20 [place] [id number] [place] 00:00:00 00:00:00 Christo Collins Medical MD: [address] [facility] [address], [place] [address] , Ph. 2018-11-13 2018-11-13 Keven [facility] [place] - [id number] [place] 00:00:00 00:00:00 Christo Collins MD: [address] [facility], [address], [place] [address] , Ph. 2018-10-25 2018-10-25 Keven [facility] [place] - [id number] [place] 00:00:00 00:00:00 Christo Collins MD: [address] [facility], [address], [place] [address] , Ph. 2018-09-04 2018-09-04 Keven [facility] [place] - [id number] [place] 00:00:00 00:00:00 Christo Collins MD: [address] [place] [address], [address], [place] [address] , Ph. 2017-09-07 2017-09-08 Inpatient Christiano [facility] [place] [id number] 2017-09-01 2017-09-04 Inpatient KHADAR PUR[facility] [place] [id number] [place] 20:55:00 18:24:00 [facility] Results Test Description Test Time Test Comments Results Result Comments Source SURGICAL PATHOLOGY EXAM 2022-06-07 00:54:02 Test Item Value Reference Range Interpretation Comme nts Case Report (test code = 2139228926) Surgical Pathology ?Case: [id number] ? Authorizing Provider: ?Brenna Prather MD ? Collected: ? 06/05/2022 1319 ?Ordering Location: ? ? GI Endoscopy OR Department Received: ?06/05/2022 1642 ?Pathologist: ? Quan Contreras MD ? Specimen: ? 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 Final Diagnosis (test code = y6txzQGeYPUux5vzKMKxyLWtIzDoDyJjPeSgUv [id number]) xVQlPYpyaeTkJUgrfYukKKXaNXKlEK4ppIntvAg9 dBieTMPaheB2mISkBHxcl0hpGUQ0e1qjcgmtJLYs TXllTb6fdKQoxNomHuXaWTZvABe3oJ57YAOklT3p oIOuEFm6HTFxnZPqsbIjEqTtQMLpeSAdkIE1HTRo WQ1eyxixTZkgUKxtGXYukpI6YALhcFBwO7SyHVXg EK6hywdkIRL1NKgxEUKeJBW5GqSpIHHoc7Dqlsn6 MjBccGFyZFxwbGFpblxmczIwXHBhclxwYXJkXHR4 Ftp2FIYYWsGSPV1TUERDCDTPPP1GB4a5ZVAgcwqw AMJnLRQcEX7zX1SNYQCKHrGIXRJUS7JrD7nTVRBK WKePKVAMMc1GABQuV2WZKMGPOBjBKTUajwKnQTDh GC0GOOTUVAeHVRVBNH7TJAtTQJUNSZfBGEbkQJTY EDZVSNAGTHHLRoMXRFtAOa4CYLOlJYJCLnIQZedA RFxwYXIgICAgLSBOTyBILiBQWUxPUkktTElLRSBP UkdBTklTTVMgSURFTlRJRklFRFxwYXJccGFyZFxw [file] IiYadF6ylFmbReggsjB7NOKzxd81 Clinical Information (test code = Velasquez Cruz is a 47 year old male 1. [id number]) Gastric Bx r/o H Pylori ?and Melanosis Gross Description (test code = m7bmxLKbANBmpFXLPDIkBIVzPK5zjHyqyIc5 cGdw 7289015925) [file] cmQgDQp9 Disclaimer (test code = 6372580479) v6kczUIoZADwk5ikVIStcGLqTaUnQyP cZnRuYmpc jMQfWLcbtePiWUfqd3SxM9SdEfPoLNswegGwUZNv UbbcisbzYRRxAWN6tyZsOVBzYGjxZIBiDSjyEv7n eLChkFomZuCoFHBdk5gysjKBDYunWjWzS479ERLu EWxix6cmi2CyHMHceSBws4Z4IGZDuijxdQz3iGlm G40bd8N7IbcpH1ntEWRtKETtV5KnXN0aXGEfTpp7 GUB2FRP8QVPaHLCmQ6SnJF8lLZZecDGlGSb2m3vg uHjyWUUtXKI4r5jwHJfqvgXrNQ6bqd8vnTh9z0ib dwVxXJZqOFPonSVKWQKbP7KunSxzHc8txFj0qTml MynnMKO3Nsa2GT1wwa08sak1fQidJODavmtiRcA4 INswGHYfcwznHBz2HOwfZZVylFV3OEVtvXFyY5Kh MACcTB6opwx7XCM7SPckZHLxSqR6HNIjiVFnGXAd lSokYPrru331IKN6VnMoWN6bM2Dpm6F0yE8tfMCa JLJrnHAjLjPxQIZvrq3vhMJuPQcst6VdCGU3wiG7 bJDwrQTeIKIxOK60Vgldm9YnAkzvy9ShD87dcQN1 KZcrh3uqMU4iGkM0jfUbALccj1zriD7cWnR5PAzf NP3uKG4uQLZibM0kxiroMSHvYqMstxedDZFfyCpo tvBbBl5oePwhHRB6NKgrV2eduQ4mGyP6FNswG7ko hW1vMMh8FJgjbVW9DVRhuS8sNE5cbsrxr0dlVXlp IMarSFGvytU3jwA6WQJtrABvL0YhvQ2dKCEhJJ7z kcbfe7xmUUT2CXpdZOGjPUQ3SsTbECKod9Uchsr9 ZgVsl5XzhCIwZLkeT34wy883OQFmexVvE7soeVBc rlfkvGGzymmfXWgkydF1IKNgsyHkv2QlVTDvYCR5 IKxsECertOGvMFEltGgty9maZ1CqbDKlZKNlUQhm XGYxXGZzMjBcbGFuZzEwMzNcaGljaFxmMVxkYmNo [file] J2uwXaCyxN8miFjiEZwuKhHjMgMnMNqeFFC2nG== Embedded Images (test code = 5421557898) [facility] WITH [id number] 11:44:45 Test Item Value Reference Range Interpretation Comments WBC (test code = 11.67 See_Comment H [Automated 2642-2) message] The sy stem which generated this result transmitted reference range : 4.20 - 10.70 10*3/?L. The reference range was not used to interpret this result as normal/abnormal . RBC (test code = 2.47 See_Comment L [Automated 716-8) message] The sy stem which generated this result transmitted reference range : 4.26 - 5.52 10*6/?L. The reference range was not used to interpret this result as normal/abnormal . HGB (test code = 7.3 g/dL 12.2-16.4 L 718-7) HCT (test code = 21.5 % 38.4-49.3 L 4544-3) MCV (test code = 87.0 fL 81.7-95.6 787-2) MCH (test code = 29.6 pg 26.1-32.7 785-6) MCHC (test code = 34.0 g/dL 31.2-35.0 786-4) RDW-SD (test code = 62.1 fL 38.5-51.6 H 30877-4) RDW-CV (test code = 19.9 % 12.1-15.4 H 788-0) PLT (test code = 269 See_Comment [Automated 777-3) message] The sy stem which generated this result transmitted reference range : 150 - 328 10*3/ ?L. The reference r lorena was not used to interpret this result as normal/abnormal . MPV (test code = 9.9 fL 9.8-13.0 98544-6) NRBC/100 WBC (test 3.0 See_Comment [Automat ed code = 4911872286) message] The system which generated this result transmitted reference range : 0.0 - 10.0 /100 WBCs. The refer ence range was not u sed to interpret th is result as normal/abnormal . NRBC x10^3 (test code 0.35 See_Comment [Auto mated = 1407462836) message] The s ystem which generated this result transmitted reference range : 10*3/?L. The reference range was not used to interpret this result as normal/abnormal . GRAN MAT (NEUT) % 65.9 % (test code = 770-8) IMM GRAN % (test code 1.00 % = 2670044343) LYMPH % (test code = 8.2 % 736-9) MONO % (test code = 14.3 % 5905-5) EOS % (test code = 9.6 % 713-8) BASO % (test code = 1.0 % 706-2) GRAN MAT x10^3(ANC) 7.68 10*3/uL 1.99-6.95 H (test code = 2481181583) IMM GRAN x10^3 (test 0.12 10*3/uL 0.00-0.06 H code = 4990716412) LYMPH x10^3 (test code 0.96 10*3/uL 1.09-3.23 L = 731-0) MONO x10^3 (test code 1.67 10*3/uL 0.36-1.02 H = 742-7) EOS x10^3 (test code = 1.12 10*3/uL 0.06-0.53 H 711-2) BASO x10^3 (test code 0.12 10*3/uL 0.01-0.09 H = 704-7) TARGET CELLS (test 2+ See_Comment A [Automat ed code = 83308-9) message] The system which generated this result transmitted reference range : (none). The reference range was not used to interpret this result as normal/abnormal . Lab Interpretation Abnormal (test code = 40530-4) [facility] WITH [id number] 11:44:45 Test Item Value Reference Range Interpretation Comments WBC (test code = 11.67 See_Comment H [Automated 6690-2) message] The sy stem which generated this result transmitted reference range : 4.20 - 10.70 10*3/?L. The reference range was not used to interpret this result as normal/abnormal . RBC (test code = 2.47 See_Comment L [Automated 789-8) message] The sy stem which generated this result transmitted reference range : 4.26 - 5.52 10*6/?L. The reference range was not used to interpret this result as normal/abnormal . HGB (test code = 7.3 g/dL 12.2-16.4 L 718-7) HCT (test code = 21.5 % 38.4-49.3 L 4544-3) MCV (test code = 87.0 fL 81.7-95.6 787-2) MCH (test code = 29.6 pg 26.1-32.7 785-6) MCHC (test code = 34.0 g/dL 31.2-35.0 786-4) RDW-SD (test code = 62.1 fL 38.5-51.6 H 87334-3) RDW-CV (test code = 19.9 % 12.1-15.4 H 788-0) PLT (test code = 269 See_Comment [Automated 777-3) message] The sy stem which generated this result transmitted reference range : 150 - 328 10*3/ ?L. The reference r lorena was not used to interpret this result as normal/abnormal . MPV (test code = 9.9 fL 9.8-13.0 34683-1) NRBC/100 WBC (test 3.0 See_Comment [Automat ed code = 8336045421) message] The system which generated this result transmitted reference range : 0.0 - 10.0 /100 WBCs. The refer ence range was not u sed to interpret th is result as normal/abnormal . NRBC x10^3 (test code 0.35 See_Comment [Auto mated = [id number]) message] The s ystem which generated this result transmitted reference range : 10*3/?L. The reference range was not used to interpret this result as normal/abnormal . GRAN MAT (NEUT) % 65.9 % (test code = 770-8) IMM GRAN % (test code 1.00 % = 7831632585) LYMPH % (test code = 8.2 % 736-9) MONO % (test code = 14.3 % 5905-5) EOS % (test code = 9.6 % 713-8) BASO % (test code = 1.0 % 706-2) GRAN MAT x10^3(ANC) 7.68 10*3/uL 1.99-6.95 H (test code = 5981347682) IMM GRAN x10^3 (test 0.12 10*3/uL 0.00-0.06 H code = 7528315311) LYMPH x10^3 (test code 0.96 10*3/uL 1.09-3.23 L = 731-0) MONO x10^3 (test code 1.67 10*3/uL 0.36-1.02 H = 742-7) EOS x10^3 (test code = 1.12 10*3/uL 0.06-0.53 H 711-2) BASO x10^3 (test code 0.12 10*3/uL 0.01-0.09 H = 704-7) TARGET CELLS (test 2+ See_Comment A [Automat ed code = 55328-3) message] The system which generated this result transmitted reference range : (none). The reference range was not used to interpret this result as normal/abnormal . Lab Interpretation Abnormal (test code = 38020-1) [facility] METABOLIC PANEL (NA, K, CL, CO2, GLUCOSE, BUN, CREATININE, CA)2022-06-06 11:33:01 Test Item Value Reference Range Interpretation Comments NA (test code = 137 mmol/L 135-145 1359037621) K (test code = 4.5 mmol/L 3.5-5.0 4888387153) CL (test code = 105 mmol/L 98-108 0086279521) CO2 TOTAL (test code = 28 mmol/L 23-31 1209175961) AGAP (test code = 4 2-16 7997046102) BUN (test code = 30 mg/dL 7-23 H 9540640814) GLUCOSE (test code = 93 mg/dL 70-110 0345519181) CREATININE (test code = 5.58 mg/dL 0.60-1.25 H 3222722426) CALCIUM (test code = 7.0 mg/dL 8.6-10.6 L 9180712593) eGFR (test code = 11.0 mL/min/1.73m2 8655244991) TAHIRA (test code = TAHIRA) Association of [...] tests). Lab Interpretation Abnormal (test code = 73179-7) [facility] Test Item Value Reference Range Interpretation Comments MAGNESIUM (test code = 3908888061) 1.6 mg/dL 1.7-2.4 L Lab Interpretation (test code = Abnormal 65556-7) [facility] (NA, K, CL, CO2, GLUCOSE, BUN, CREATININE, CA)2022-06-06 11:33:01 Test Item Value Reference Range Interpretation Comments NA (test code = 137 mmol/L 135-145 5435192111) K (test code = 4.5 mmol/L 3.5-5.0 1883630378) CL (test code = 105 mmol/L 98-108 5214701249) CO2 TOTAL (test code = 28 mmol/L 23-31 1383311033) AGAP (test code = 4 2-16 7370169572) BUN (test code = 30 mg/dL 7-23 H 9897591223) GLUCOSE (test code = 93 mg/dL 70-110 8642534363) CREATININE (test code = 5.58 mg/dL 0.60-1.25 H 9316476214) CALCIUM (test code = 7.0 mg/dL 8.6-10.6 L 6591742178) eGFR (test code = 11.0 mL/min/1.73m2 5571906348) TAHIRA (test code = TAHIRA) Association of [...] tests). Lab Interpretation Abnormal (test code = 45763-9) [facility] 11:33:01 Test Item Value Reference Range Interpretation Comments MAGNESIUM (test code = 2729318825) 1.6 mg/dL 1.7-2.4 L Lab Interpretation (test code = Abnormal 94986-0) [facility] [id number] 11:39:42 Test Item Value Reference Range Interpretation Comments IRON (test code = 6488086511) 34 ug/dL 50-160 L TIBC (test code = 4695929094) 150 ug/dL 250-410 L % FE SAT (test code = 9550662142) 23 % 20-50 Lab Interpretation (test code = Abnormal 85708-5) [facility] [id number] 11:39:42 Test Item Value Reference Range Interpretation Comments IRON (test code = 6332009432) 34 ug/dL 50-160 L TIBC (test code = 6336003552) 150 ug/dL 250-410 L % FE SAT (test code = 7932681534) 23 % 20-50 Lab Interpretation (test code = Abnormal 48501-1) [facility] METABOLIC PANEL (NA, K, CL, CO2, GLUCOSE, BUN, CREATININE, CA)2022-06-05 11:29:03 Test Item Value Reference Range Interpretation Comments NA (test code = 136 mmol/L 135-145 0753829075) K (test code = 4.5 mmol/L 3.5-5.0 9551126946) CL (test code = 104 mmol/L 98-108 6297623128) CO2 TOTAL (test code = 22 mmol/L 23-31 L 2486515182) AGAP (test code = 10 2-16 4993019789) BUN (test code = 43 mg/dL 7-23 H 8408154037) GLUCOSE (test code = 125 mg/dL 70-110 H 6696192495) CREATININE (test code = 7.14 mg/dL 0.60-1.25 H 0779701211) CALCIUM (test code = 7.1 mg/dL 8.6-10.6 L 1280878926) eGFR (test code = 8.3 mL/min/1.73m2 7082994380) TAHIRA (test code = TAHIRA) Association of [...] tests). Lab Interpretation Abnormal (test code = 35654-2) [facility] Test Item Value Reference Range Interpretation Comments MAGNESIUM (test code = 7271392754) 1.6 mg/dL 1.7-2.4 L Lab Interpretation (test code = Abnormal 01907-8) [facility] (NA, K, CL, CO2, GLUCOSE, BUN, CREATININE, CA)2022-06-05 11:29:03 Test Item Value Reference Range Interpretation Comments NA (test code = 136 mmol/L 135-145 6077577945) K (test code = 4.5 mmol/L 3.5-5.0 1762753672) CL (test code = 104 mmol/L 98-108 0224131367) CO2 TOTAL (test code = 22 mmol/L 23-31 L 4547819770) AGAP (test code = 10 2-16 1444265398) BUN (test code = 43 mg/dL 7-23 H 8111723991) GLUCOSE (test code = 125 mg/dL 70-110 H 5405679109) CREATININE (test code = 7.14 mg/dL 0.60-1.25 H 7520067412) CALCIUM (test code = 7.1 mg/dL 8.6-10.6 L 2489877497) eGFR (test code = 8.3 mL/min/1.73m2 3426956738) TAHIRA (test code = TAHIRA) Association of [...] tests). Lab Interpretation Abnormal (test code = 16068-0) [facility] 11:29:03 Test Item Value Reference Range Interpretation Comments MAGNESIUM (test code = 7736938327) 1.6 mg/dL 1.7-2.4 L Lab Interpretation (test code = Abnormal 21478-0) [facility] WITH [id number] 10:28:13 Test Item Value Reference Range Interpretation Comments WBC (test code = 10.41 See_Comment [Automated 6690-2) message] The sy stem which generated this result transmitted reference range : 4.20 - 10.70 10*3/?L. The reference range was not used to interpret this result as normal/abnormal . RBC (test code = 2.58 See_Comment L [Automated 789-8) message] The sy stem which generated this result transmitted reference range : 4.26 - 5.52 10*6/?L. The reference range was not used to interpret this result as normal/abnormal . HGB (test code = 7.6 g/dL 12.2-16.4 L 718-7) HCT (test code = 22.1 % 38.4-49.3 L 4544-3) MCV (test code = 85.7 fL 81.7-95.6 787-2) MCH (test code = 29.5 pg 26.1-32.7 785-6) MCHC (test code = 34.4 g/dL 31.2-35.0 786-4) RDW-SD (test code = 58.8 fL 38.5-51.6 H 73345-6) RDW-CV (test code = 19.3 % 12.1-15.4 H 788-0) PLT (test code = 288 See_Comment [Automated 777-3) message] The sy stem which generated this result transmitted reference range : 150 - 328 10*3/ ?L. The reference r lorena was not used to interpret this result as normal/abnormal . MPV (test code = 9.5 fL 9.8-13.0 L 64321-8) NRBC/100 WBC (test 2.2 See_Comment [Automat ed code = 6444819978) message] The system which generated this result transmitted reference range : 0.0 - 10.0 /100 WBCs. The refer ence range was not u sed to interpret th is result as normal/abnormal . NRBC x10^3 (test code 0.23 See_Comment [Auto mated = 5401014899) message] The s ystem which generated this result transmitted reference range : 10*3/?L. The reference range was not used to interpret this result as normal/abnormal . GRAN MAT (NEUT) % 65.3 % (test code = 770-8) IMM GRAN % (test code 0.70 % = 8395022600) LYMPH % (test code = 8.7 % 736-9) MONO % (test code = 14.1 % 5905-5) EOS % (test code = 10.3 % 713-8) BASO % (test code = 0.9 % 706-2) GRAN MAT x10^3(ANC) 6.80 10*3/uL 1.99-6.95 (test code = 5965442030) IMM GRAN x10^3 (test 0.07 10*3/uL 0.00-0.06 H code = 7566041757) LYMPH x10^3 (test code 0.91 10*3/uL 1.09-3.23 L = 731-0) MONO x10^3 (test code 1.47 10*3/uL 0.36-1.02 H = 742-7) EOS x10^3 (test code = 1.07 10*3/uL 0.06-0.53 H 711-2) BASO x10^3 (test code 0.09 10*3/uL 0.01-0.09 = 704-7) Lab Interpretation Abnormal (test code = 83872-0) [facility] WITH [id number] 10:28:13 Test Item Value Reference Range Interpretation Comments WBC (test code = 10.41 See_Comment [Automated 6690-2) message] The sy stem which generated this result transmitted reference range : 4.20 - 10.70 10*3/?L. The reference range was not used to interpret this result as normal/abnormal . RBC (test code = 2.58 See_Comment L [Automated 789-8) message] The sy stem which generated this result transmitted reference range : 4.26 - 5.52 10*6/?L. The reference range was not used to interpret this result as normal/abnormal . HGB (test code = 7.6 g/dL 12.2-16.4 L 718-7) HCT (test code = 22.1 % 38.4-49.3 L 4544-3) MCV (test code = 85.7 fL 81.7-95.6 787-2) MCH (test code = 29.5 pg 26.1-32.7 785-6) MCHC (test code = 34.4 g/dL 31.2-35.0 786-4) RDW-SD (test code = 58.8 fL 38.5-51.6 H 36713-7) RDW-CV (test code = 19.3 % 12.1-15.4 H 788-0) PLT (test code = 288 See_Comment [Automated 777-3) message] The sy stem which generated this result transmitted reference range : 150 - 328 10*3/ ?L. The reference r lorena was not used to interpret this result as normal/abnormal . MPV (test code = 9.5 fL 9.8-13.0 L 71243-4) NRBC/100 WBC (test 2.2 See_Comment [Automat ed code = 4038323747) message] The system which generated this result transmitted reference range : 0.0 - 10.0 /100 WBCs. The refer ence range was not u sed to interpret th is result as normal/abnormal . NRBC x10^3 (test code 0.23 See_Comment [Auto mated = 8213706800) message] The s ystem which generated this result transmitted reference range : 10*3/?L. The reference range was not used to interpret this result as normal/abnormal . GRAN MAT (NEUT) % 65.3 % (test code = 770-8) IMM GRAN % (test code 0.70 % = 3592431163) LYMPH % (test code = 8.7 % 736-9) MONO % (test code = 14.1 % 5905-5) EOS % (test code = 10.3 % 713-8) BASO % (test code = 0.9 % 706-2) GRAN MAT x10^3(ANC) 6.80 10*3/uL 1.99-6.95 (test code = 2532587331) IMM GRAN x10^3 (test 0.07 10*3/uL 0.00-0.06 H code = 6377733449) LYMPH x10^3 (test code 0.91 10*3/uL 1.09-3.23 L = 731-0) MONO x10^3 (test code 1.47 10*3/uL 0.36-1.02 H = 742-7) EOS x10^3 (test code = 1.07 10*3/uL 0.06-0.53 H 711-2) BASO x10^3 (test code 0.09 10*3/uL 0.01-0.09 = 704-7) Lab Interpretation Abnormal (test code = 80433-3) [facility] - ONCE [id number] 15:05:27 Test Item Value Reference Range Interpretation Comments ABO & RH (test code A POSITIVE Performe d at [facility] = 20) [facility] [place] [address]Qwux Free: [phone] A No. [id number] IAT (test code = Negative Performed a t [place] 1185) [facility] [address] [place] [address] s [address]Iytt Free: [phone] A No. [id number] [facility] and Screen - ONCE [id number] 15:05:27 Test Item Value Reference Range Interpretation Comments ABO & RH (test code A POSITIVE Performe d at [facility] = 20) [facility] [address] [place] [address] s [address]Zouw Free: [phone] A No. [id number] IAT (test code = Negative Performed a t [facility] 1185) [facility] s [address]Suvo Free: [phone] A No. [id number] [facility] GLUCOSE (AUTOMATED)2022-06-04 14:27:01 Test Item Value Reference Range Interpretation Comments POCT GLU (test code = 8458794432) 90 mg/dL 70-110 Lab Interpretation (test code = Normal 47502-8) [facility] GLUCOSE (AUTOMATED)2022-06-04 14:27:01 Test Item Value Reference Range Interpretation Comments POCT GLU (test code = 7249693280) 90 mg/dL 70-110 Lab Interpretation (test code = Normal 40453-5) [facility] WITHOUT [id number] 13:17:49 Test Item Value Reference Range Interpretation Comments WBC (test code = 6690-2) 14.49 See_Comment H [A utomated message] The system [employer] generated this result transmit evelina reference range : 4.20 - 10.70 10*3/?L. The reference range was not used to interpret this result as normal/abnormal . RBC (test code = 789-8) 2.72 See_Comment L [Au tomated message] The system [employer] generated this result transmit evelina reference range [...] 311 See_Comment [Au tomated message] The system [employer] generated this result transmit evelina reference range : 150 - 328 10*3/?L. The reference range was not used to interpret this result as normal/abnormal . MPV (test code = 10.2 fL 9.8-13.0 96109-3) RDW-CV (test code = 20.8 % 12.1-15.4 H 788-0) RDW-SD (test code = 59.4 fL 38.5-51.6 H 79864-2) NRBC x10^3 (test code = 0.06 See_Comment [Au tomated message] 4327452534) The system [employer] generated this result transmit evelina reference range : 10*3/?L. The reference range was not used to interpret this result as normal/abnormal . NRBC/100 WBC (test code 0.4 See_Comment [Au tomated message] = 2903651913) The system [employer] generated this result transmit evelina reference range : 0.0 - 10.0 /100 WBC s. The reference r lorena was not used to interpret this result as normal/abnormal . IPF % (test code = 6429081134) Lab Interpretation (test Abnormal code = 54857-0) [facility]23-[facility] 13:18:42 Test Item Value Reference Range Interpretation Comments MAGNESIUM (test code = 6634855409) 1.7 mg/dL 1.7-2.4 Lab Interpretation (test code = Normal 21747-1) [facility]2023-02-27 13:18:42 Test Item Value Reference Range Interpretation Comments PHOSPHORUS (test code = 6944510245) 4.2 mg/dL 2.5-5.0 Lab Interpretation (test code = Normal 40408-7) [facility]OL[facility] PAN[facility] (NA, K, CL, CO2, GLUCOSE, BUN, CREATININE, CA)2022-05-27 13:18:41 Test Item Value Reference Range Interpretation Comments NA (test code = 131 mmol/L 135-145 L 5605536119) K (test code = 4.7 mmol/L 3.5-5.0 6542214226) CL (test code = 95 mmol/L 98-108 L 9258012378) CO2 TOTAL (test code = 26 mmol/L 23-31 1998197378) AGAP (test code = 10 2-16 6705496161) BUN (test code = 68 mg/dL 7-23 H 0778623599) GLUCOSE (test code = 83 mg/dL 70-110 5304432723) CREATININE (test code = 8.83 mg/dL 0.60-1.25 H 0622174444) CALCIUM (test code = 8.1 mg/dL 8.6-10.6 L 9335334363) eGFR (test code = 6.5 mL/min/1.73m2 8761086324) TAHIRA (test code = TAHIRA) Association of [...] tests). Lab Interpretation Abnormal (test code = 84425-3) [facility] WITHOUT [id number] 12:45:23 Test Item Value Reference Range Interpretation Comments WBC (test code = 6690-2) 17.78 See_Comment H [A utomated message] The system [employer] generated this result transmit evelina reference range : 4.20 - 10.70 10*3/?L. The reference range was not used to interpret this result as normal/abnormal . RBC (test code = 789-8) 2.59 See_Comment L [Au tomated message] The system [facility] generated this result transmit evelina reference [...] 283 See_Comment [Au tomated message] The system [facility] generated this result transmit evelina reference range : 150 - 328 10*3/?L. The reference range was not used to interpret this result as normal/abnormal . MPV (test code = 10.6 fL 9.8-13.0 34320-4) RDW-CV (test code = 20.4 % 12.1-15.4 H 788-0) RDW-SD (test code = 57.6 fL 38.5-51.6 H 29500-0) NRBC x10^3 (test code = 0.06 See_Comment [Au tomated message] 0044215638) The system [facility] generated this result transmit evelina reference range : 10*3/?L. The reference range was not used to interpret this result as normal/abnormal . NRBC/100 WBC (test code 0.3 See_Comment [Au tomated message] = 3506725799) The system [facility] generated this result transmit evelina reference range : 0.0 - 10.0 /100 WBC s. The reference r lorena was not used to interpret this result as normal/abnormal . IPF % (test code = 8802120888) Lab Interpretation (test Abnormal code = 78983-9) [facility] WITH [id number] 22:24:54 Test Item Value Reference Range Interpretation [...] (test code = 54.9 fL 38.5-51.6 H 31180-9) RDW-CV (test code = 19.7 % 12.1-15.4 H 788-0) PLT (test code = 237 See_Comment [Automated 777-3) message] The system which generated this result transmit evelina reference range : 150 - 328 10*3/ ?L. The reference range was not u sed to interpret th is result as normal/abnormal . MPV (test code = 9.9 fL 9.8-13.0 18896-9) NRBC/100 WBC (test 0.3 See_Comment [Automat ed code = 8198711825) message] The system which generated this result transmit evelina reference range : 0.0 - 10.0 /100 WBCs. The reference range was not used to interpret this result as normal/abnormal . NRBC x10^3 (test code 0.06 See_Comment [Auto mated = 9448157775) message] The system which generated this result transmit evelina reference range : 10*3/?L. The reference range was not used to interpret this result as normal/abnormal . GRAN MAT (NEUT) % 86.4 % (test code = 770-8) IMM GRAN % (test code 0.80 % = 3299139753) LYMPH % (test code = 3.3 % 736-9) MONO % (test code = 7.3 % 5905-5) EOS % (test code = 1.9 % 713-8) BASO % (test code = 0.3 % 706-2) GRAN MAT x10^3(ANC) 15.31 10*3/uL 1.99-6.95 H (test code = 6347112192) IMM GRAN x10^3 (test 0.14 10*3/uL 0.00-0.06 H code = 8658852528) LYMPH x10^3 (test code 0.58 10*3/uL 1.09-3.23 L = 731-0) MONO x10^3 (test code 1.30 10*3/uL 0.36-1.02 H = 742-7) EOS x10^3 (test code = 0.34 10*3/uL 0.06-0.53 711-2) BASO x10^3 (test code 0.05 10*3/uL 0.01-0.09 = 704-7) SIDEROTIC GRAN (test Suggestive of A code = 7795-8) TARGET CELLS (test 2+ See_Comment A [Automat ed code = 71034-3) message] The system which generated this result transmit evelina reference range : (none). The reference range was not used to interpret this result as normal/abnormal . Lab Interpretation Abnormal (test code = 27995-8) [facility]+COOX+NA+K+GLU+CA2+2022-05-25 21:17:38 Test Item Value Reference Range Interpretation Comments PH (test code = 2) 7.46 7.35-7.45 H PCO2 (test code = 35 See_Comment [Automate d message] 2228382782) The system [employer] generated this result transmit evelina reference range : 35 - 45 mmHg. The reference range was not used to interpret this result as normal/abnormal . PO2 (test code = 101 See_Comment H [Automated message] 4481811877) The system [employer] generated this result transmit evelina reference range : 80 - 100 mmHg. The reference range was not used to interpret this result as normal/abnormal . HCO3 (test code = 25 See_Comment [Automate d message] 7513881531) The system [employer] generated this result transmit evelina reference range : 22 - 26 mEq/L. The reference range was not used to interpret this result as normal/abnormal . BE (test code = 0.9 See_Comment [Automated message] 5676114105) The system [employer] generated this result transmit evelina reference range : -3.0 - 3.0 mEq/ L. The reference r lorena was not used to interpret this result as normal/abnormal . THB (test code = 8.6 g/dL 13.5-18.0 L 6416792633) %O2HB (test code = 96.4 % 94.0-99.0 7065956609) %COHB ART (test code = 1.1 % 0.0-1.5 9849641643) %METHB ART (test code = 0.3 % 0.4-1.5 L 8890587322) VOL%O2 ART (test code = 11.8 % 15.0-23.0 L 1453694863) NA (test code = 131 mmol/L 135-145 L 3999088035) K+ (test code = 4.3 mmol/L 3.5-5.0 2329442029) AC CA IONZ (test code = 4.70 mg/dL 4.50-5.30 2572662406) GLUCOSE (test code = 120 mg/dL 70-110 H 4151980175) Lab Interpretation Abnormal (test code = 46535-5) [facility]2022-05-25 20:50:25 Test Item Value Reference Range Interpretation Comments POCT GLU (test code = 9997288874) 182 mg/dL 70-110 H Lab Interpretation (test code = Abnormal 66598-2) [facility] Packed RBC (in units), 1 Units 2022-05-25 20:12:38 Test Item Value Reference Range Interpretation Comments Cross Match Result Compatible (test code = 4409) ISBT Blood Type Code 6200 (test code = 269660) Unit Blood Type (test A Pos code = 4410) Unit Number (test [id number] code = 4411) Blood Expiration Date [id number] & Time (test code = 366519) Status Information Issued (test code = 4412) Product Red Blood Cells Identification (test code = 4413) Product Code (test P6015Q80 Performed at [facility] code = 4414) Laboratory Services - [facility] [address] [place] [address] 195[address]Xqmg Free: [phone] A No. [id number] [facility] CULTURE(AEROBIC/ANAEROBIC)2022-05-25 13:24:36 Test Item Value Reference Range Interpretation Comments TISSUE CULTURE No aerobic/anaerobic (test code = organisms isolated 17935-1) Gram stain (test No Polymorphonuclear code = 664-3) leukocytes [facility] METABOLIC PANEL (NA, K, CL, CO2, GLUCOSE, BUN, CREATININE, CA)2022-05-25 12:41:02 Test Item Value Reference Range Interpretation Comments NA (test code = 130 mmol/L 135-145 L 2083424344) K (test code = 6.4 mmol/L 3.5-5.0 HH Slight 3522463933) hemolysis CL (test code = 97 mmol/L 98-108 L 5679879862) CO2 TOTAL (test code 20 mmol/L 23-31 L = 6430060656) AGAP (test code = 13 2-16 6665482346) BUN (test code = 81 mg/dL 7-23 H Slight 3859317402) hemolysis GLUCOSE (test code = 82 mg/dL 70-110 3593610892) CREATININE (test code 9.31 mg/dL 0.60-1.25 H = 9952508475) CALCIUM (test code = 8.5 mg/dL 8.6-10.6 L 9388925271) eGFR (test code = 6.1 mL/min/1.73m2 5254347879) TAHIRA (test code = TAHIRA) Association of [...] tests). Lab Interpretation Abnormal (test code = 94973-8) [facility]2023-[facility]-25 12:34:20 Test Item Value Reference Range Interpretation Comments MAGNESIUM (test code = 5315361911) 1.7 mg/dL 1.7-2.4 Lab Interpretation (test code = Normal 79181-8) [facility]2023-[facility]-25 12:34:20 Test Item Value Reference Range Interpretation Comments PHOSPHORUS (test code = 9627044785) 3.9 mg/dL 2.5-5.0 Lab Interpretation (test code = Normal 84088-8) [facility] WITH [id number] 12:23:21 Test Item Value Reference Range Interpretation Comments WBC (test code = 16.30 See_Comment H [Automated 7790-2) message] The system which generated this result transmit evelina reference range : 4.20 - 10.70 10*3/?L. The reference range was not used to interpret this result as normal/abnormal . RBC (test code = 2.79 See_Comment L [Automated 379-8) message] The system which generated this result [...] (test code = 54.4 fL 38.5-51.6 H 96180-0) RDW-CV (test code = 19.8 % 12.1-15.4 H 788-0) PLT (test code = 239 See_Comment [Automated 777-3) message] The system which generated this result transmit evelina reference range : 150 - 328 10*3/ ?L. The reference range was not u sed to interpret th is result as normal/abnormal . MPV (test code = 10.3 fL 9.8-13.0 36570-0) NRBC/100 WBC (test 0.6 See_Comment [Automat ed code = 7769227892) message] The system which generated this result transmit evelina reference range : 0.0 - 10.0 /100 WBCs. The reference range was not used to interpret this result as normal/abnormal . NRBC x10^3 (test code 0.09 See_Comment [Auto mated = 7410432660) message] The system which generated this result transmit evelina reference range : 10*3/?L. The reference range was not used to interpret this result as normal/abnormal . GRAN MAT (NEUT) % 75.2 % (test code = 770-8) IMM GRAN % (test code 0.70 % = 7524045770) LYMPH % (test code = 8.8 % 736-9) MONO % (test code = 10.2 % 5905-5) EOS % (test code = 4.8 % 713-8) BASO % (test code = 0.3 % 706-2) GRAN MAT x10^3(ANC) 12.25 10*3/uL 1.99-6.95 H (test code = 2688722156) IMM GRAN x10^3 (test 0.11 10*3/uL 0.00-0.06 H code = 0356102416) LYMPH x10^3 (test code 1.44 10*3/uL 1.09-3.23 = 731-0) MONO x10^3 (test code 1.67 10*3/uL 0.36-1.02 H = 742-7) EOS x10^3 (test code = 0.78 10*3/uL 0.06-0.53 H 711-2) BASO x10^3 (test code 0.05 10*3/uL 0.01-0.09 = 704-7) SIDEROTIC GRAN (test Suggestive of A code = 7795-8) TARGET CELLS (test 2+ See_Comment A [Automat ed code = 87505-5) message] The system which generated this result transmit evelina reference range : (none). The reference range was not used to interpret this result as normal/abnormal . REACT LYMPHS (test Rare code = 9147806915) Lab Interpretation Abnormal (test code = 18160-8) [facility] METABOLIC PANEL (NA, K, CL, CO2, GLUCOSE, BUN, CREATININE, CA)2022-05-24 13:28:58 Test Item Value Reference Range Interpretation Comments NA (test code = 136 mmol/L 135-145 8661577827) K (test code = 5.2 mmol/L 3.5-5.0 H Slight 4093746398) hemolysis CL (test code = 100 mmol/L 98-108 4037837579) CO2 TOTAL (test code 22 mmol/L 23-31 L = 0501310101) AGAP (test code = 14 2-16 6541044026) BUN (test code = 54 mg/dL 7-23 H Slight 3400439388) hemolysis GLUCOSE (test code = 87 mg/dL 70-110 5467083678) CREATININE (test code 7.75 mg/dL 0.60-1.25 H = 6549232473) CALCIUM (test code = 9.0 mg/dL 8.6-10.6 5487603597) eGFR (test code = 7.5 mL/min/1.73m2 4783467632) TAHIRA (test code = TAHIRA) Association of [...] tests). Lab Interpretation Abnormal (test code = 91184-3) [facility]2023-[facility]-24 13:28:58 Test Item Value Reference Range Interpretation Comments MAGNESIUM (test code = 7559816056) 1.8 mg/dL 1.7-2.4 Lab Interpretation (test code = Normal 63435-4) [facility]2023-02-24 13:28:58 Test Item Value Reference Range Interpretation Comments PHOSPHORUS (test code = 1164224803) 4.5 mg/dL 2.5-5.0 Lab Interpretation (test code = Normal 02355-4) [facility] WITHOUT [id number] 12:11:49 Test Item Value Reference Range Interpretation Comments WBC (test code = 6690-2) 16.21 See_Comment H [A utomated message] The system [employer] generated this result transmit evelina reference range : 4.20 - 10.70 10*3/?L. The reference range was not used to interpret this result as normal/abnormal . RBC (test code = 789-8) 3.68 See_Comment L [Au tomated message] The system [employer] generated this result transmit evelina reference range [...] 286 See_Comment [Au tomated message] The system [facility] generated this result transmit evelina reference range : 150 - 328 10*3/?L. The reference range was not used to interpret this result as normal/abnormal . MPV (test code = 10.7 fL 9.8-13.0 49812-3) RDW-CV (test code = 20.7 % 12.1-15.4 H 788-0) RDW-SD (test code = 58.6 fL 38.5-51.6 H 63641-7) NRBC x10^3 (test code = 0.13 See_Comment [Au tomated message] 9220077067) The system [facility] generated this result transmit evelina reference range : 10*3/?L. The reference range was not used to interpret this result as normal/abnormal . NRBC/100 WBC (test code 0.8 See_Comment [Au tomated message] = 6382257178) The system [facility] generated this result transmit evelina reference range : 0.0 - 10.0 /100 WBC s. The reference r lorena was not used to interpret this result as normal/abnormal . IPF % (test code = 7495292209) Lab Interpretation (test Abnormal code = 43671-9) [facility] GLUCOSE (AUTOMATED)2022-05-24 10:49:51 Test Item Value Reference Range Interpretation Comments POCT GLU (test code = 6588202864) 98 mg/dL 70-110 Lab Interpretation (test code = Normal 47162-0) [facility] GLUCOSE (AUTOMATED)2022-05-24 10:21:18 Test Item Value Reference Range Interpretation Comments POCT GLU (test code = 4592455326) 70 mg/dL 70-110 Lab Interpretation (test code = Normal 65369-4) [facility] METABOLIC PANEL (NA, K, CL, CO2, GLUCOSE, BUN, CREATININE, CA)2022-05-22 12:56:46 Test Item Value Reference Range Interpretation Comments NA (test code = 134 mmol/L 135-145 L 3175114837) K (test code = 4.8 mmol/L 3.5-5.0 8214175809) CL (test code = 97 mmol/L 98-108 L 2563929569) CO2 TOTAL (test code = 24 mmol/L 23-31 2124547207) AGAP (test code = 13 2-16 4228446230) BUN (test code = 47 mg/dL 7-23 H 1958261787) GLUCOSE (test code = 105 mg/dL 70-110 8670739285) CREATININE (test code = 9.37 mg/dL 0.60-1.25 H 4635558611) CALCIUM (test code = 9.0 mg/dL 8.6-10.6 8479148591) eGFR (test code = 6.1 mL/min/1.73m2 9312969274) TAHIRA (test code = TAHIRA) Association of [...] tests). Lab Interpretation Abnormal (test code = 82547-3) [facility]2023-[facility]-22 12:56:46 Test Item Value Reference Range Interpretation Comments MAGNESIUM (test code = 9025966135) 1.9 mg/dL 1.7-2.4 Lab Interpretation (test code = Normal 42257-8) [facility]2023-02-22 12:56:46 Test Item Value Reference Range Interpretation Comments PHOSPHORUS (test code = 5660454849) 6.3 mg/dL 2.5-5.0 H Lab Interpretation (test code = Abnormal 78219-2) [facility]OL[facility] (NA, K, CL, CO2, GLUCOSE, BUN, CREATININE, CA)2022-05-22 12:56:46 Test Item Value Reference Range Interpretation Comments NA (test code = 134 mmol/L 135-145 L 5677538129) K (test code = 4.8 mmol/L 3.5-5.0 7350713446) CL (test code = 97 mmol/L 98-108 L 6712437974) CO2 TOTAL (test code = 24 mmol/L 23-31 3917817064) AGAP (test code = 13 2-16 4842890018) BUN (test code = 47 mg/dL 7-23 H 4363136267) GLUCOSE (test code = 105 mg/dL 70-110 8754918827) CREATININE (test code = 9.37 mg/dL 0.60-1.25 H 5409675286) CALCIUM (test code = 9.0 mg/dL 8.6-10.6 1317614610) eGFR (test code = 6.1 mL/min/1.73m2 5623859922) TAHIRA (test code = TAHIRA) Association of [...] tests). Lab Interpretation Abnormal (test code = 61511-2) [facility] 12:56:46 Test Item Value Reference Range Interpretation Comments MAGNESIUM (test code = 4009940856) 1.9 mg/dL 1.7-2.4 Lab Interpretation (test code = Normal 79833-5) [facility]2023-02-22 12:56:46 Test Item Value Reference Range Interpretation Comments PHOSPHORUS (test code = 8943213171) 6.3 mg/dL 2.5-5.0 H Lab Interpretation (test code = Abnormal 64050-0) [facility]OLIC PANEL (NA, K, CL, CO2, GLUCOSE, BUN, CREATININE, CA)2022-05-22 12:56:46 Test Item Value Reference Range Interpretation Comments NA (test code = 134 mmol/L 135-145 L 7761891415) K (test code = 4.8 mmol/L 3.5-5.0 9103885433) CL (test code = 97 mmol/L 98-108 L 7462274399) CO2 TOTAL (test code = 24 mmol/L 23-31 4426135639) AGAP (test code = 13 2-16 2334914046) BUN (test code = 47 mg/dL 7-23 H 7533140617) GLUCOSE (test code = 105 mg/dL 70-110 4654633231) CREATININE (test code = 9.37 mg/dL 0.60-1.25 H 6692861151) CALCIUM (test code = 9.0 mg/dL 8.6-10.6 7220595532) eGFR (test code = 6.1 mL/min/1.73m2 6800650829) TAHIRA (test code = TAHIRA) Association of [...] tests). Lab Interpretation Abnormal (test code = 49746-9) [facility]23-[facility]-22 12:56:46 Test Item Value Reference Range Interpretation Comments MAGNESIUM (test code = 2914850187) 1.9 mg/dL 1.7-2.4 Lab Interpretation (test code = Normal 75832-8) [facility]2023-02-22 12:56:46 Test Item Value Reference Range Interpretation Comments PHOSPHORUS (test code = 5946829803) 6.3 mg/dL 2.5-5.0 H Lab Interpretation (test code = Abnormal 52286-0) [facility] and Screen - ONCE Sydsnpi7358-60-02 12:32:41 Test Item Value Reference Range Interpretation Comments ABO & RH (test code A POSITIVE Performe d at [facility] = 20) Laboratory [facility] Blood [address] [address]Nupv Free: [phone] A No. [id number] IAT (test code = Negative Performed a t [facility] 1185) Laboratory [facility] Blood [facility] [place] [address] s [address]Qovy Free: [phone] A No. [id number] [facility] and Screen - ONCE Zqbgcvr6525-10-68 12:32:41 Test Item Value Reference Range Interpretation Comments ABO & RH (test code A POSITIVE Performe d at [facility] = 20) Laboratory [facility] Blood [facility] [place] [address] s [address]Zunf Free: [phone] A No. [id number] IAT (test code = Negative Performed a t [facility] 1185) Laboratory [facility] Blood [facility] [address] [place] [address] s [address]Bfah Free: [phone] A No. [id number] [facility] and Screen - ONCE Uwndxvs7312-53-47 12:32:41 Test Item Value Reference Range Interpretation Comments ABO & RH (test code A POSITIVE Performe d at [facility] = 20) [facility] Blood [facility]3 [address] [facility] s [address]Hdug Free: [phone] A No. [id number] IAT (test code = Negative Performed a t [facility] 1185) [facility] Blood [facility]3 01 [facility] [address]Ryun Free: [phone] A No. [id number] [facility]ervilleProthrombin Time / [id number] 12:15:22 Test Item Value Reference Range Interpretation Comments PROTIME PATIENT (test 13.6 See_Comment H [Auto mated message] code = 5964-2) The system [employer] generated this result transmitted ref erence range: 10.1 - 1 2.6 Seconds. The reference range was not used to int erpret this result as normal/abnormal . INR (test code = 6301-6) 1.2 Nor mal INR <1.1; Warfarin Therap eutic range 2.0 to 3. 0 or 2.5 to 3.5, dep ending upon the indica tions. Lab Interpretation (test Abnormal code = 96890-7) [facility]throm[facility] Time / [id number] 12:15:22 Test Item Value Reference Range Interpretation Comments PROTIME PATIENT (test 13.6 See_Comment H [Auto mated message] code = 5964-2) The system [employer] generated this result transmitted ref erence range: 10.1 - 1 2.6 Seconds. The reference range was not used to int erpret this result as normal/abnormal . INR (test code = 6301-6) 1.2 Nor mal INR <1.1; Warfarin Therap eutic range 2.0 to 3. 0 or 2.5 to 3.5, dep ending upon the indica tions. Lab Interpretation (test Abnormal code = 04211-6) [facility]th[facility] Time / [id number] 12:15:22 Test Item Value Reference Range Interpretation Comments PROTIME PATIENT (test 13.6 See_Comment H [Auto mated message] code = 5964-2) The system [employer] generated this result transmitted ref erence range: 10.1 - 1 2.6 Seconds. The reference range was not used to int erpret this result as normal/abnormal . INR (test code = 6301-6) 1.2 Nor mal INR <1.1; Warfarin Therap eutic range 2.0 to 3. 0 or 2.5 to 3.5, dep ending upon the indica tions. Lab Interpretation (test Abnormal code = 42912-8) [facility] WITH [id number] 12:09:22 Test Item Value Reference Range Interpretation [...] (test code = 56.2 fL 38.5-51.6 H 67503-4) RDW-CV (test code = 20.3 % 12.1-15.4 H 788-0) PLT (test code = 274 See_Comment [Automated 777-3) message] The sy stem which generated this result transmitted reference range : 150 - 328 10*3/ ?L. The reference r lorena was not used to interpret this result as normal/abnormal . MPV (test code = 10.4 fL 9.8-13.0 25297-5) NRBC/100 WBC (test 0.7 See_Comment [Automat ed code = 7347488866) message] The system which generated this result transmitted reference range : 0.0 - 10.0 /100 WBCs. The refer ence range was not u sed to interpret th is result as normal/abnormal . NRBC x10^3 (test code 0.04 See_Comment [Auto mated = 5062529875) message] The s ystem which generated this result transmitted reference range : 10*3/?L. The reference range was not used to interpret this result as normal/abnormal . GRAN MAT (NEUT) % 56.8 % (test code = 770-8) IMM GRAN % (test code 0.70 % = 6572512011) LYMPH % (test code = 19.5 % 736-9) MONO % (test code = 15.1 % 5905-5) EOS % (test code = 6.5 % 713-8) BASO % (test code = 1.4 % 706-2) GRAN MAT x10^3(ANC) 3.35 10*3/uL 1.99-6.95 (test code = 6411874412) IMM GRAN x10^3 (test 0.04 10*3/uL 0.00-0.06 code = 2257774176) LYMPH x10^3 (test code 1.15 10*3/uL 1.09-3.23 = 731-0) MONO x10^3 (test code 0.89 10*3/uL 0.36-1.02 = 742-7) EOS x10^3 (test code = 0.38 10*3/uL 0.06-0.53 711-2) BASO x10^3 (test code 0.08 10*3/uL 0.01-0.09 = 704-7) Lab Interpretation Abnormal (test code = 53762-7) [facility] WITH [id number] 12:09:22 Test Item Value Reference Range Interpretation Comments WBC (test code = 5.89 See_Comment [Automated 5890-2) message] The sy stem which generated this result transmitted reference range : 4.20 - 10.70 10*3/?L. The reference range was not used to interpret this result as normal/abnormal . RBC (test code = 3.92 See_Comment L [Automated 369-8) message] The sy stem which generated this [...] (test code = 56.2 fL 38.5-51.6 H 19376-5) RDW-CV (test code = 20.3 % 12.1-15.4 H 788-0) PLT (test code = 274 See_Comment [Automated 777-3) message] The sy stem which generated this result transmitted reference range : 150 - 328 10*3/ ?L. The reference r lorena was not used to interpret this result as normal/abnormal . MPV (test code = 10.4 fL 9.8-13.0 51335-0) NRBC/100 WBC (test 0.7 See_Comment [Automat ed code = 4233197385) message] The system which generated this result transmitted reference range : 0.0 - 10.0 /100 WBCs. The refer ence range was not u sed to interpret th is result as normal/abnormal . NRBC x10^3 (test code 0.04 See_Comment [Auto mated = 3329483562) message] The s ystem which generated this result transmitted reference range : 10*3/?L. The reference range was not used to interpret this result as normal/abnormal . GRAN MAT (NEUT) % 56.8 % (test code = 770-8) IMM GRAN % (test code 0.70 % = 1529752847) LYMPH % (test code = 19.5 % 736-9) MONO % (test code = 15.1 % 5905-5) EOS % (test code = 6.5 % 713-8) BASO % (test code = 1.4 % 706-2) GRAN MAT x10^3(ANC) 3.35 10*3/uL 1.99-6.95 (test code = 7447518533) IMM GRAN x10^3 (test 0.04 10*3/uL 0.00-0.06 code = 6789084599) LYMPH x10^3 (test code 1.15 10*3/uL 1.09-3.23 = 731-0) MONO x10^3 (test code 0.89 10*3/uL 0.36-1.02 = 742-7) EOS x10^3 (test code = 0.38 10*3/uL 0.06-0.53 711-2) BASO x10^3 (test code 0.08 10*3/uL 0.01-0.09 = 704-7) Lab Interpretation Abnormal (test code = 72769-6) [facility] WITH [id number] 12:09:22 Test Item Value Reference Range Interpretation Comments WBC (test code = 5.89 See_Comment [Automated 6690-2) message] The sy stem which generated this result transmitted reference range : 4.20 - 10.70 10*3/?L. The reference range was not used to interpret this result as normal/abnormal . RBC (test code = 3.92 See_Comment L [Automated 909-8) message] The sy stem which generated this [...] (test code = 56.2 fL 38.5-51.6 H 27771-6) RDW-CV (test code = 20.3 % 12.1-15.4 H 788-0) PLT (test code = 274 See_Comment [Automated 777-3) message] The sy stem which generated this result transmitted reference range : 150 - 328 10*3/ ?L. The reference r lorena was not used to interpret this result as normal/abnormal . MPV (test code = 10.4 fL 9.8-13.0 70745-4) NRBC/100 WBC (test 0.7 See_Comment [Automat ed code = 1666893990) message] The system which generated this result transmitted reference range : 0.0 - 10.0 /100 WBCs. The refer ence range was not u sed to interpret th is result as normal/abnormal . NRBC x10^3 (test code 0.04 See_Comment [Auto mated = 3083028739) message] The s ystem which generated this result transmitted reference range : 10*3/?L. The reference range was not used to interpret this result as normal/abnormal . GRAN MAT (NEUT) % 56.8 % (test code = 770-8) IMM GRAN % (test code 0.70 % = 7644732208) LYMPH % (test code = 19.5 % 736-9) MONO % (test code = 15.1 % 5905-5) EOS % (test code = 6.5 % 713-8) BASO % (test code = 1.4 % 706-2) GRAN MAT x10^3(ANC) 3.35 10*3/uL 1.99-6.95 (test code = 4603628084) IMM GRAN x10^3 (test 0.04 10*3/uL 0.00-0.06 code = 3007147303) LYMPH x10^3 (test code 1.15 10*3/uL 1.09-3.23 = 731-0) MONO x10^3 (test code 0.89 10*3/uL 0.36-1.02 = 742-7) EOS x10^3 (test code = 0.38 10*3/uL 0.06-0.53 711-2) BASO x10^3 (test code 0.08 10*3/uL 0.01-0.09 = 704-7) Lab Interpretation Abnormal (test code = 98628-7) [facility] Only[facility]2022-05-19 20:28:54 Test Item Value Reference Range Interpretation Comments ABO & RH (test code A Positive Performe d at [facility] = 20) Laboratory [facility] Blood [address] s [address]Dkmv Free: [phone] A No. [id number] [facility] Confirmation (Lab Only)2022-05-19 20:28:54 Test Item Value Reference Range Interpretation Comments ABO & RH (test code A Positive Performe d at [facility] = 20) Laboratory [facility] Blood [address] s [address]Snae Free: [phone] A No. [id number] [facility] Confirmation (Lab Only)2022-05-19 20:28:54 Test Item Value Reference Range Interpretation Comments ABO & RH (test code A Positive Performe d at [facility] = 20) Laboratory [facility] Blood [address] s [address]Obpq Free: [phone] A No. [id number] [facility] and Screen - ONCE Nfapkwu5494-43-40 19:17:40 Test Item Value Reference Range Interpretation Comments ABO & RH (test code A POSITIVE Performe d at [facility] = 20) Laboratory [facility] Blood [address] s [address]Eoja Free: [phone] A No. [id number] IAT (test code = Negative Performed a t [facility] 1185) Laboratory [facility] Blood [address] s [address]Tbik Free: [phone] A No. [id number] [facility] and Screen - ONCE Hgdmajm2549-95-40 19:17:40 Test Item Value Reference Range Interpretation Comments ABO & RH (test code A POSITIVE Performe d at [facility] = 20) Laboratory [facility] Blood [address] s [address]Ooib Free: [phone] A No. [id number] IAT (test code = Negative Performed a t [facility] 1185) Laboratory [facility] Blood Bank3 [address] [facility] s [address]Wqat Free: [phone] A No. [id number] [facility] Screen - ONCE Civkfgb5455-70-34 19:17:40 Test Item Value Reference Range Interpretation Comments ABO & RH (test code A POSITIVE Performe d at [facility] = 20) [facility] Blood Bank3 [address] [facility] s [address]Hydg Free: [phone] A No. [id number] IAT (test code = Negative Performed a t [facility] 1185) [facility] Blood [facility]3 [facility] s [address]Jlfv Free: [phone] A No. [id number] [facility]ervilleB[facility] FLUID (BACTEC BOTTLE)2022-05-18 20:01:41 Test Item Value Reference Range Interpretation Comments Body Fluid No organisms No growth Previous prelim inary Culture isolated verified result was Screen-Aerobic Culture In Pr ogress (test code = on 05/13/2022 at 1702 [id number]) CSTPrevious preliminary zbigniew ified result was No [...] 4 days on 05/17/2022 at 14 01 [employer] Body Fluid No organisms No growth Previous prelim inary Culture isolated verified result was Screen-Anaerobic Culture In Progress (test code = on 05/13/2022 at 1702 [id number]) CSTPrevious preliminary zbigniew ified result was No [...] 4 days on 05/17/2022 at 14 01 [facility] FLUID (BACTEC BOTTLE)2022-05-18 20:01:41 Test Item Value Reference Range Interpretation Comments Body Fluid No organisms No growth Previous prelim inary Culture isolated verified result was Screen-Aerobic Culture In Pr ogress (test code = on 05/13/2022 at 1702 [id number]) CSTPrevious preliminary zbigniew ified result was No [...] 4 days on 05/17/2022 at 14 01 [employer] Body Fluid No organisms No growth Previous prelim inary Culture isolated verified result was Screen-Anaerobic Culture In Progress (test code = on 05/13/2022 at 1702 [id number]) CSTPrevious preliminary zbigniew ified result was No [...] 4 days on 05/17/2022 at 14 01 [facility] FLUID (BACTEC BOTTLE)2022-05-18 20:01:41 Test Item Value Reference Range Interpretation Comments Body Fluid No organisms No growth Previous prelim inary Culture isolated verified result was Screen-Aerobic Culture In Pr ogress (test code = on 05/13/2022 at 1702 [id number]) CSTPrevious preliminary zbigniew ified result was No [...] 4 days on 05/17/2022 at 14 01 [employer] Body Fluid No organisms No growth Previous prelim inary Culture isolated verified result was Screen-Anaerobic Culture In Progress (test code = on 05/13/2022 at 1702 [id number]) CSTPrevious preliminary zbigniew ified result was No [...] 4 days on 05/17/2022 at 14 01 [employer] [facility]Gl[facility], Icjcx5201-88-06 01:31:21 Test Item Value Reference Range Interpretation Comments GLUCOSE (test code = 2117483436) 102 mg/dL 70-110 Lab Interpretation (test code = Normal 79177-1) [facility]ervilleProtein Total [id number] 01:31:21 Test Item Value Reference Range Interpretation Comments T PROTEIN (test code = 4932465472) 10.2 g/dL 6.3-8.2 H Lab Interpretation (test code = Abnormal 06645-2) [facility]ervilleLactate Gelbyxpcblhhm0083-98-63 01:31:21 Test Item Value Reference Range Interpretation Comments LDH (test code = 3480730221) 265 U/L 120-246 H Slight hemolysis Lab Interpretation (test Abnormal code = 51497-4) [facility]Glucose, Xigei4093-52-32 01:31:21 Test Item Value Reference Range Interpretation Comments GLUCOSE (test code = 3261927387) 102 mg/dL 70-110 Lab Interpretation (test code = Normal 77385-4) [facility]Lactate Xmmozmlhbywjp7719-63-93 01:31:21 Test Item Value Reference Range Interpretation Comments LDH (test code = 3718019989) 265 U/L 120-246 H Slight hemolysis Lab Interpretation (test Abnormal code = 11266-9) [facility]ervilleProtein Total Dovec6061-98-76 01:31:21 Test Item Value Reference Range Interpretation Comments T PROTEIN (test code = 5745320643) 10.2 g/dL 6.3-8.2 H Lab Interpretation (test code = Abnormal 33565-6) [facility], Idwvi6619-73-42 01:31:21 Test Item Value Reference Range Interpretation Comments GLUCOSE (test code = 4378119701) 102 mg/dL 70-110 Lab Interpretation (test code = Normal 83280-5) [facility]Lactate Ctzxxdnbexthb1582-63-28 01:31:21 Test Item Value Reference Range Interpretation Comments LDH (test code = 1609993053) 265 U/L 120-246 H Slight hemolysis Lab Interpretation (test Abnormal code = 16578-7) [facility]ervilleProtein Total Lnovi0826-48-93 01:31:21 Test Item Value Reference Range Interpretation Comments T PROTEIN (test code = 8130827989) 10.2 g/dL 6.3-8.2 H Lab Interpretation (test code = Abnormal 23625-2) [facility]Glucose, Kynue6057-62-38 01:31:21 Test Item Value Reference Range Interpretation Comments GLUCOSE (test code = 9039431290) 102 mg/dL 70-110 Lab Interpretation (test code = Normal 00666-3) [facility]ervilleLactate Omapsflheiarv7822-04-48 01:31:21 Test Item Value Reference Range Interpretation Comments LDH (test code = 1183974652) 265 U/L 120-246 H Slight hemolysis Lab Interpretation (test Abnormal code = 45750-4) [facility]Protein Total Vdmpy4307-31-67 01:31:21 Test Item Value Reference Range Interpretation Comments T PROTEIN (test code = 0233055053) 10.2 g/dL 6.3-8.2 H Lab Interpretation (test code = Abnormal 94964-5) [facility]ervilleTransthoracic echo (TTE)2022-05-10 22:33:49 Test Item Value Reference Range Interpretation Comments Height (test code = 68 in 9123854234) Weight (test code = 167 lbs 6788322521) Systolic BP (test 152 mmHg code = 8376195727) Diastolic BP (test 117 mmHg code = 6465572690) Heart Rate (test code 71 bpm = 2945901812) LVOT stroke volume 59.00 cm3 (test code = 2694147461) LVOT diameter (test 2.14 cm code = 3330295745) LVOT area (test code 3.60 cm2 = 3901039722) MV Peak E Tiago (test 61.8 cm/s code = 8571154903) MV Peak A Tiago (test 94.1 cm/s code = 5058874839) E/A ratio (test code 0.66 ratio = 2387237896) E wave decelartion 0.29 s time (test code = 0023280667) MV E/e' septal (test 3.4 cm/s code = 1090119083) LA Volume Index (BP) 18.2 mL/m2 (test code = 7122430520) LA volume (BP) (test 34.5 mL code = 9297511334) LVOT peak tiago (test 104.1 cm/s code = 6496500747) LVOT mn grad (test 2.1 mmHg code = 4015057748) BSA (test code = 1.89 m2 0629032412) LA size (test code = 2.9 cm 5480902982) LAV(MOD-sp2) (test 38.30 mL code = 9704694983) LAV(MOD-sp4) (test 28.40 mL code = 5519813572) Tapse (test code = 1.30 cm 9753190215) AV LVOT peak gradient 4.3 mmHg (test code = 5033490588) LVOT peak VTI (test 16.3 cm code = 0960558387) LV V1 mean (test code 68.20 cm/s = 6598602488) MV Prop V (test code 33.40 cm/s = 9550173153) TR Peak Tiago (test 226.2 cm/s code = 5979946236) Triscuspid Valve 20.5 mmHg Regurgitation Peak Gradient (test code = 1218151991) Ao root diam (test 3.50 cm code = 5846305957) Aortic root (test 3.5 cm code = 6346704976) Ao root annulus (test 3.5 cm code = 8969745889) A2C EF (test code = 44.80 % 9000111720) EF(sp2-el) (test code 47.40 % = 9210522524) SV(MOD-sp2) (test 20.30 mL code = 2256519719) LV Diastolic Volume 61.3 mL (BP) (test code = 2712495631) A4C EF (test code = 50.90 % 2043049939) EF(MOD-bp) (test code 50.90 % = 6966227467) EF(sp4-el) (test code 52.80 % = 0511378418) LV Systolic Volume 30.1 mL (BP) (test code = 7334549756) SV(MOD-bp) (test code 31.20 mL = 5247837417) SV(MOD-sp4) (test 39.30 mL code = 0785715853) SV(sp4-el) (test code 43.60 mL = 2183553084) EF (test code = 51 5302596215) Left Ventricular 31.2 mL Stroke Volume by 2-D Biplane-MOD (test code = 8355295) Aortic valve mean 89.9 cm/s velocity (test code = 3211901870) Ao peak tiago (test 135.1 cm/s code = 7985678882) Ao VTI (test code = 24.1 cm 5045652232) AV area by cont VTI 2.5 cm2 (test code = 6947553586) AV area peak tiago 2.8 cm2 (test code = 9755730998) Ao max PG (test code 7.30 mm[Hg] = 3926838633) AV peak gradient 7.3 mmHg (test code = 3519892031) AV valve area (test 2.45 cm2 code = 5040476638) AV mean gradient 3.5 mmHg (test code = 1866773813) LV Diastolic Volume 32.4 mL/m2 Index (BP) (test code = 8774343619) LV Systolic Volume 15.9 mL/m2 Index (BP) (test code = 6499868329) LVIDS (test code = 3.00 cm 5586953614) Left Ventricular End 35.4 mL Systolic Volume by Teichholz Method (test code = 0451301) EF(Teich) (test code 49.30 % = 9035004574) LVIDD (test code = 4.00 cm 3144934104) Left Ventricular End 69.7 mL Diastolic Volume by Teichholz Method (test code = 1042791) FS (test code = 25 % 8157056659) EF - 2D (test code = 49.30 % 43135161) Radiology Study observation (narrative) (test code = 68798-6) TAHIRA (test code = TAHIRA) ?Left?Ventricle: Left [...] color flow Doppler, spectral Doppler and strain. [facility]ervilleCARCINOEMBRYONIC [id number] 19:04:03 Test Item Value Reference Range Interpretation Comments CEA (test code = 3.7 ng/mL 0.0-10.0 6946345828) TAHIRA (test code = TAHIRA) CEA Ranges: Non-Smokers ?0-5.0 ng/mLSmokers ? ? ?0-10.0 ng/mL Lab Interpretation (test Normal code = 52915-5) [facility]CAR[facility]INO[facility]BR[facility]ONIC SXYQWJH2036-71-48 19:04:03 Test Item Value Reference Range Interpretation Comments CEA (test code = 3.7 ng/mL 0.0-10.0 4737214624) TAHIRA (test code = TAHIRA) CEA Ranges: Non-Smokers ?0-5.0 ng/mLSmokers ? ? ?0-10.0 ng/mL Lab Interpretation (test Normal code = 04207-3) [facility] DCEXHHR2769-19-02 19:04:03 Test Item Value Reference Range Interpretation Comments CEA (test code = 3.7 ng/mL 0.0-10.0 5923032723) TAHIRA (test code = TAHIRA) CEA Ranges: Non-Smokers ?0-5.0 ng/mLSmokers ? ? ?0-10.0 ng/mL Lab Interpretation (test Normal code = 09565-3) [facility] FORJVBW0897-65-58 19:04:03 Test Item Value Reference Range Interpretation Comments CEA (test code = 3.7 ng/mL 0.0-10.0 0266985426) TAHIRA (test code = TAHIRA) CEA Ranges: Non-Smokers ?0-5.0 ng/mLSmokers ? ? ?0-10.0 ng/mL Lab Interpretation (test Normal code = 78688-3) [place] 603942023-02-10 18:27:40 Test Item Value Reference Range Interpretation Comments CA-125 (test code = 5505432255) 10.3 U/mL 0.0-35.0 Lab Interpretation (test code = Normal 72644-5) [place] 603942023-02-10 18:27:40 Test Item Value Reference Range Interpretation Comments CA-125 (test code = 4803219536) 10.3 U/mL 0.0-35.0 Lab Interpretation (test code = Normal 57037-9) [place] 603942023-02-10 18:27:40 Test Item Value Reference Range Interpretation Comments CA-125 (test code = 8532706356) 10.3 U/mL 0.0-35.0 Lab Interpretation (test code = Normal 61428-6) [place] 603942023-02-10 18:27:40 Test Item Value Reference Range Interpretation Comments CA-125 (test code = 1122572947) 10.3 U/mL 0.0-35.0 Lab Interpretation (test code = Normal 82617-0) [facility] B Surface Antibody (HBsAb)2022-05-10 11:41:32 Test Item Value Reference Range Interpretation Comments HBsAB (test code = Positive 2858560736) HBsAb 397.00 mIU/mL Semi-Quantitative (test code = 0260057492) TAHIRA (test code = Interpretation: TAHIRA) ?Hepatitis B Surface Antibody ? Negative - Patient is considered to be not immune to infection with HBV. ? ? Positive - Anti-HBs detected at greater than or equal to 12 mIU/mL. ?Patient is considered to be immune to infection with HBV. ? [facility] B Core Antibody, [id number] 11:41:32 Test Item Value Reference Range Interpretation Comments HBC (test code = 1832095845) Negative HBC Semi-Quantitative (test code = 3.09 0228774184) [facility] B Surface Antibody (HBsAb)2022-05-10 11:41:32 Test Item Value Reference Range Interpretation Comments HBsAB (test code = Positive 0733408503) HBsAb 397.00 mIU/mL Semi-Quantitative (test code = 9897617436) TAHIRA (test code = Interpretation: TAHIRA) ?Hepatitis B Surface Antibody ? Negative - Patient is considered to be not immune to infection with HBV. ? ? Positive - Anti-HBs detected at greater than or equal to 12 mIU/mL. ?Patient is considered to be immune to infection with HBV. ? [facility] B Core Antibody, [id number] 11:41:32 Test Item Value Reference Range Interpretation Comments HBC (test code = 9303869245) Negative HBC Semi-Quantitative (test code = 3.09 0190256171) [facility] B Surface Antibody (HBsAb)2022-05-10 11:41:32 Test Item Value Reference Range Interpretation Comments HBsAB (test code = Positive 9163719891) HBsAb 397.00 mIU/mL Semi-Quantitative (test code = 5747948630) TAHIRA (test code = Interpretation: TAHIRA) ?Hepatitis B Surface Antibody ? Negative - Patient is considered to be not immune to infection with HBV. ? ? Positive - Anti-HBs detected at greater than or equal to 12 mIU/mL. ?Patient is considered to be immune to infection with HBV. ? [facility] B Core Antibody, [id number] 11:41:32 Test Item Value Reference Range Interpretation Comments HBC (test code = 1569731997) Negative HBC Semi-Quantitative (test code = 3.09 2861148748) [facility] B Surface Antibody (HBsAb)2022-05-10 11:41:32 Test Item Value Reference Range Interpretation Comments HBsAB (test code = Positive 8418440965) HBsAb 397.00 mIU/mL Semi-Quantitative (test code = 5894759496) TAHIRA (test code = Interpretation: TAHIRA) ?Hepatitis B Surface Antibody ? Negative - Patient is considered to be not immune to infection with HBV. ? ? Positive - Anti-HBs detected at greater than or equal to 12 mIU/mL. ?Patient is considered to be immune to infection with HBV. ? [facility] B Core Antibody, [id number] 11:41:32 Test Item Value Reference Range Interpretation Comments HBC (test code = 3722127848) Negative HBC Semi-Quantitative (test code = 3.09 2333605713) [facility] WITH [id number] 04:32:32 Test Item Value Reference Range Interpretation Comments WBC (test code = 8.57 See_Comment [Automated 3890-2) message] The sy stem which generated this result transmitted reference range : 4.20 - 10.70 10*3/?L. The reference range was not used to interpret this result as normal/abnormal . RBC (test code = 4.41 See_Comment [Automated 269-8) message] The sy stem which generated this [...] (test code = 55.4 fL 38.5-51.6 H 60360-9) RDW-CV (test code = 20.2 % 12.1-15.4 H 788-0) PLT (test code = 352 See_Comment H [Automated 777-3) message] The sy stem which generated this result transmitted reference range : 150 - 328 10*3/ ?L. The reference r lorena was not used to interpret this result as normal/abnormal . MPV (test code = 10.9 fL 9.8-13.0 92502-6) NRBC/100 WBC (test 0.0 See_Comment [Automat ed code = 1768787399) message] The system which generated this result transmitted reference range : 0.0 - 10.0 /100 WBCs. The refer ence range was not u sed to interpret th is result as normal/abnormal . NRBC x10^3 (test code See_Comment [Auto mated = 6873500587) message] The s ystem which generated this result transmitted reference range : 10*3/?L. The reference range was not used to interpret this result as normal/abnormal . GRAN MAT (NEUT) % 66.2 % (test code = 770-8) IMM GRAN % (test code 0.60 % = 9611085737) LYMPH % (test code = 14.8 % 736-9) MONO % (test code = 15.3 % 5905-5) EOS % (test code = 2.2 % 713-8) BASO % (test code = 0.9 % 706-2) GRAN MAT x10^3(ANC) 5.67 10*3/uL 1.99-6.95 (test code = 2076147527) IMM GRAN x10^3 (test 0.05 10*3/uL 0.00-0.06 code = 8632864661) LYMPH x10^3 (test code 1.27 10*3/uL 1.09-3.23 = 731-0) MONO x10^3 (test code 1.31 10*3/uL 0.36-1.02 H = 742-7) EOS x10^3 (test code = 0.19 10*3/uL 0.06-0.53 711-2) BASO x10^3 (test code 0.08 10*3/uL 0.01-0.09 = 704-7) Lab Interpretation Abnormal (test code = 92756-7) [facility] WITH [id number] 04:32:32 Test Item Value Reference Range Interpretation [...] (test code = 55.4 fL 38.5-51.6 H 66350-7) RDW-CV (test code = 20.2 % 12.1-15.4 H 788-0) PLT (test code = 352 See_Comment H [Automated 777-3) message] The sy stem which generated this result transmitted reference range : 150 - 328 10*3/ ?L. The reference r lorena was not used to interpret this result as normal/abnormal . MPV (test code = 10.9 fL 9.8-13.0 25555-9) NRBC/100 WBC (test 0.0 See_Comment [Automat ed code = 8079854712) message] The system which generated this result transmitted reference range : 0.0 - 10.0 /100 WBCs. The refer ence range was not u sed to interpret th is result as normal/abnormal . NRBC x10^3 (test code See_Comment [Auto mated = 8672767264) message] The s ystem which generated this result transmitted reference range : 10*3/?L. The reference range was not used to interpret this result as normal/abnormal . GRAN MAT (NEUT) % 66.2 % (test code = 770-8) IMM GRAN % (test code 0.60 % = 7293670729) LYMPH % (test code = 14.8 % 736-9) MONO % (test code = 15.3 % 5905-5) EOS % (test code = 2.2 % 713-8) BASO % (test code = 0.9 % 706-2) GRAN MAT x10^3(ANC) 5.67 10*3/uL 1.99-6.95 (test code = 8002310189) IMM GRAN x10^3 (test 0.05 10*3/uL 0.00-0.06 code = 2068977992) LYMPH x10^3 (test code 1.27 10*3/uL 1.09-3.23 = 731-0) MONO x10^3 (test code 1.31 10*3/uL 0.36-1.02 H = 742-7) EOS x10^3 (test code = 0.19 10*3/uL 0.06-0.53 711-2) BASO x10^3 (test code 0.08 10*3/uL 0.01-0.09 = 704-7) Lab Interpretation Abnormal (test code = 92809-4) [facility] WITH [id number] 04:32:32 Test Item Value Reference Range Interpretation Comments WBC (test code = 8.57 See_Comment [Automated 5690-2) message] The sy stem which generated this result transmitted reference range : 4.20 - 10.70 10*3/?L. The reference range was not used to interpret this result as normal/abnormal . RBC (test code = 4.41 See_Comment [Automated 173-8) message] The sy stem which generated this [...] (test code = 55.4 fL 38.5-51.6 H 11109-3) RDW-CV (test code = 20.2 % 12.1-15.4 H 788-0) PLT (test code = 352 See_Comment H [Automated 777-3) message] The sy stem which generated this result transmitted reference range : 150 - 328 10*3/ ?L. The reference r lorena was not used to interpret this result as normal/abnormal . MPV (test code = 10.9 fL 9.8-13.0 12807-0) NRBC/100 WBC (test 0.0 See_Comment [Automat ed code = 3922629576) message] The system which generated this result transmitted reference range : 0.0 - 10.0 /100 WBCs. The refer ence range was not u sed to interpret th is result as normal/abnormal . NRBC x10^3 (test code See_Comment [Auto mated = 4487907530) message] The s ystem which generated this result transmitted reference range : 10*3/?L. The reference range was not used to interpret this result as normal/abnormal . GRAN MAT (NEUT) % 66.2 % (test code = 770-8) IMM GRAN % (test code 0.60 % = 5675386621) LYMPH % (test code = 14.8 % 736-9) MONO % (test code = 15.3 % 5905-5) EOS % (test code = 2.2 % 713-8) BASO % (test code = 0.9 % 706-2) GRAN MAT x10^3(ANC) 5.67 10*3/uL 1.99-6.95 (test code = 5210920943) IMM GRAN x10^3 (test 0.05 10*3/uL 0.00-0.06 code = 3799773601) LYMPH x10^3 (test code 1.27 10*3/uL 1.09-3.23 = 731-0) MONO x10^3 (test code 1.31 10*3/uL 0.36-1.02 H = 742-7) EOS x10^3 (test code = 0.19 10*3/uL 0.06-0.53 711-2) BASO x10^3 (test code 0.08 10*3/uL 0.01-0.09 = 704-7) Lab Interpretation Abnormal (test code = 84240-8) [facility] VENOUS BLOOD [id number] 04:30:11 Test Item Value Reference Range Interpretation Comments PH (test code = 7.28 7.32-7.42 L 1755138358) PCO2 CARINA (test code = 53 See_Comment H [Auto mated message] 6778647442) The system [employer] generated this result transmitted ref erence range: 41 - 51 mmHg. The reference r lorena was not used to interpret this result as normal/abnor mal. PO2 CARINA (test code = 54 See_Comment H [Autom ated message] 9005180873) The system [employer] generated this result transmitted ref erence range: 25 - 40 mmHg. The reference r lorena was not used to interpret this result as normal/abnor mal. HCO3 CARINA (test code = 24 See_Comment [Auto mated message] 5128070289) The system [employer] generated this result transmitted ref erence range: 24 - 28 mEq/L. The reference r lorena was not used to interpret this result as normal/abnor mal. AC VBE(BEAKER) (test -3.0 mEq/L code = 3551745949) Lab Interpretation (test Abnormal code = 12421-9) [facility] VENOUS BLOOD [id number] 04:30:11 Test Item Value Reference Range Interpretation Comments PH (test code = 7.28 7.32-7.42 L 2863232755) PCO2 CARINA (test code = 53 See_Comment H [Auto mated message] 0170076638) The system [employer] generated this result transmitted ref erence range: 41 - 51 mmHg. The reference r lorena was not used to interpret this result as normal/abnor mal. PO2 CARINA (test code = 54 See_Comment H [Autom ated message] 2820815078) The system [employer] generated this result transmitted ref erence range: 25 - 40 mmHg. The reference r lorena was not used to interpret this result as normal/abnor mal. HCO3 CARINA (test code = 24 See_Comment [Auto mated message] 2591671247) The system [employer] generated this result transmitted ref erence range: 24 - 28 mEq/L. The reference r lorena was not used to interpret this result as normal/abnor mal. AC VBE(BEAKER) (test -3.0 mEq/L code = 9253674188) Lab Interpretation (test Abnormal code = 68908-1) [facility] VENOUS BLOOD [id number] 04:30:11 Test Item Value Reference Range Interpretation Comments PH (test code = 7.28 7.32-7.42 L 7568678771) PCO2 CARINA (test code = 53 See_Comment H [Auto mated message] 3925639806) The system [employer] generated this result transmitted ref erence range: 41 - 51 mmHg. The reference r lorena was not used to interpret this result as normal/abnor mal. PO2 CARINA (test code = 54 See_Comment H [Autom ated message] 5384013565) The system [employer] generated this result transmitted ref erence range: 25 - 40 mmHg. The reference r lorena was not used to interpret this result as normal/abnor mal. HCO3 CARINA (test code = 24 See_Comment [Auto mated message] 4530591180) The system [employer] generated this result transmitted ref erence range: 24 - 28 mEq/L. The reference r lorena was not used to interpret this result as normal/abnor mal. AC VBE(BEAKER) (test -3.0 mEq/L code = 6389087647) Lab Interpretation (test Abnormal code = 09355-4) [facility] VENOUS BLOOD [id number] 04:30:11 Test Item Value Reference Range Interpretation Comments PH (test code = 7.28 7.32-7.42 L 7273339299) PCO2 CARINA (test code = 53 See_Comment H [Auto mated message] 6229959871) The system [employer] generated this result transmitted ref erence range: 41 - 51 mmHg. The reference r lorena was not used to interpret this result as normal/abnor mal. PO2 CARINA (test code = 54 See_Comment H [Autom ated message] 5199586645) The system [employer] generated this result transmitted ref erence range: 25 - 40 mmHg. The reference r lroena was not used to interpret this result as normal/abnor mal. HCO3 CARINA (test code = 24 See_Comment [Auto mated message] 1481108112) The system [employer] generated this result transmitted ref erence range: 24 - 28 mEq/L. The reference r lorena was not used to interpret this result as normal/abnor mal. AC VBE(BEAKER) (test -3.0 mEq/L code = 9865335483) Lab Interpretation (test Abnormal code = 32105-6) [facility] GLUCOSE (AUTOMATED)2022-05-10 01:44:34 Test Item Value Reference Range Interpretation Comments POCT GLU (test code = 9627716744) 167 mg/dL 70-110 H Lab Interpretation (test code = Abnormal 56161-8) [facility] GLUCOSE (AUTOMATED)2022-05-10 01:44:34 Test Item Value Reference Range Interpretation Comments POCT GLU (test code = 3872517234) 167 mg/dL 70-110 H Lab Interpretation (test code = Abnormal 07076-9) [facility] GLUCOSE (AUTOMATED)2022-05-10 01:44:34 Test Item Value Reference Range Interpretation Comments POCT GLU (test code = 5479904796) 167 mg/dL 70-110 H Lab Interpretation (test code = Abnormal 68033-0) [facility] GLUCOSE (AUTOMATED)2022-05-10 01:44:34 Test Item Value Reference Range Interpretation Comments POCT GLU (test code = 9209343002) 167 mg/dL 70-110 H Lab Interpretation (test code = Abnormal 66121-5) [facility] GLUCOSE (AUTOMATED)2022-05-10 01:21:58 Test Item Value Reference Range Interpretation Comments POCT GLU (test code = 3419885943) 73 mg/dL 70-110 Lab Interpretation (test code = Normal 14247-0) [facility] GLUCOSE (AUTOMATED)2022-05-10 01:21:58 Test Item Value Reference Range Interpretation Comments POCT GLU (test code = 2717386017) 73 mg/dL 70-110 Lab Interpretation (test code = Normal 84480-2) [facility] GLUCOSE (AUTOMATED)2022-05-10 01:21:58 Test Item Value Reference Range Interpretation Comments POCT GLU (test code = 1576222779) 73 mg/dL 70-110 Lab Interpretation (test code = Normal 83060-2) [facility] [id number] 00:55:49 Test Item Value Reference Range Interpretation Comments K (test code = 5417013294) 7.5 mmol/L 3.5-5.0 HH Lab Interpretation (test code = Abnormal 84422-9) [facility] [id number] 00:55:49 Test Item Value Reference Range Interpretation Comments K (test code = 5335104580) 7.5 mmol/L 3.5-5.0 HH Lab Interpretation (test code = Abnormal 87860-5) [id number]:55:49 Test Item Value Reference Range Interpretation Comments K (test code = 6675805867) 7.5 mmol/L 3.5-5.0 HH Lab Interpretation (test code = Abnormal 86304-0) [id number] 00:55:49 Test Item Value Reference Range Interpretation Comments K (test code = 5574996373) 7.5 mmol/L 3.5-5.0 HH Lab Interpretation (test code = Abnormal 49846-1) [id number] 00:09:41 Test Item Value Reference Range Interpretation Comments NT-proBNP (test code = 13942 pg/mL <=125 H 3676040707) TAHIRA (test code = TAHIRA) Biotin has been reported to cause a negative bias, interpret results relative to patient's use of biotin. Lab Interpretation (test Abnormal code = 47733-1) [facility] [id number] 00:09:41 Test Item Value Reference Range Interpretation Comments NT-proBNP (test code = 25845 pg/mL <=125 H 5244102339) TAHIRA (test code = TAHIRA) Biotin has been reported to cause a negative bias, interpret results relative to patient's use of biotin. Lab Interpretation (test Abnormal code = 65537-1) [facility] [id number] 00:09:41 Test Item Value Reference Range Interpretation Comments NT-proBNP (test code = 11420 pg/mL <=125 H 0726392027) TAHIRA (test code = TAHIRA) Biotin has been reported to cause a negative bias, interpret results relative to patient's use of biotin. Lab Interpretation (test Abnormal code = 41349-2) [facility] [id number] 00:09:41 Test Item Value Reference Range Interpretation Comments NT-proBNP (test code = 48827 pg/mL <=125 H 7197033894) TAHIRA (test code = TAHIRA) Biotin has been reported to cause a negative bias, interpret results relative to patient's use of biotin. Lab Interpretation (test Abnormal code = 37515-1) [facility] [id number] 23:49:49 Test Item Value Reference Range Interpretation Comments TROPONIN I (test code = 0.045 ng/mL <=0.034 H 9351101093) TAHIRA (test code = TAHIRA) Reference (Normal) [...] biotin. Lab Interpretation Abnormal (test code = 21297-4) [facility] [id number] 23:49:49 Test Item Value Reference Range Interpretation Comments TROPONIN I (test code = 0.045 ng/mL <=0.034 H 6121630269) TAHIRA (test code = TAHIRA) Reference (Normal) [...] biotin. Lab Interpretation Abnormal (test code = 95208-2) [facility] [id number] 23:49:49 Test Item Value Reference Range Interpretation Comments TROPONIN I (test code = 0.045 ng/mL <=0.034 H 9622895343) TAHIRA (test code = TAHIRA) Reference (Normal) [...] biotin. Lab Interpretation Abnormal (test code = 19013-7) [facility] [id number] 23:49:49 Test Item Value Reference Range Interpretation Comments TROPONIN I (test code = 0.045 ng/mL <=0.034 H 8125850565) TAHIRA (test code = TAHIRA) Reference (Normal) [...] biotin. Lab Interpretation Abnormal (test code = 84436-4) [facility]. METABOLIC PANEL ([id number])2022-05-09 23:40:31 Test Item Value Reference Range Interpretation Comments NA (test code = 135 mmol/L 135-145 7965766075) K (test code = 6.7 mmol/L 3.5-5.0 HH 7978060144) CL (test code = 98 mmol/L 98-108 5326428470) CO2 TOTAL (test code = 23 mmol/L 23-31 9641799821) AGAP (test code = 14 2-16 8258777217) BUN (test code = 63 mg/dL 7-23 H 3933790970) GLUCOSE (test code = 78 mg/dL 70-110 5574270947) CREATININE (test code = 10.57 mg/dL 0.60-1.25 H 8921656443) TOTAL BILI (test code = 0.7 mg/dL 0.1-1.1 6270464647) CALCIUM (test code = 9.1 mg/dL 8.6-10.6 0625463743) T PROTEIN (test code = 8.0 g/dL 6.3-8.2 6429918731) ALBUMIN (test code = 4.1 g/dL 3.5-5.0 1712453613) ALK PHOS (test code = 87 U/L 34-122 8901215888) ALTv (test code = 16 U/L 5-50 1742-6) AST(SGOT) (test code = 26 U/L 13-40 6292219684) eGFR (test code = 5.3 mL/min/1.73m2 4034058746) TAHIRA (test code = TAHIRA) Association of [...] tests). Lab Interpretation Abnormal (test code = 40379-7) [facility]. METABOLIC PANEL ([id number])2022-05-09 23:40:31 Test Item Value Reference Range Interpretation Comments NA (test code = 135 mmol/L 135-145 0485608167) K (test code = 6.7 mmol/L 3.5-5.0 HH 1321915588) CL (test code = 98 mmol/L 98-108 4869154292) CO2 TOTAL (test code = 23 mmol/L 23-31 0440804051) AGAP (test code = 14 2-16 5910827332) BUN (test code = 63 mg/dL 7-23 H 9568666195) GLUCOSE (test code = 78 mg/dL 70-110 4159764112) CREATININE (test code = 10.57 mg/dL 0.60-1.25 H 7634055696) TOTAL BILI (test code = 0.7 mg/dL 0.1-1.2 1472994387) CALCIUM (test code = 9.1 mg/dL 8.6-10.6 6592642426) T PROTEIN (test code = 8.0 g/dL 6.3-8.2 6351572510) ALBUMIN (test code = 4.1 g/dL 3.5-5.0 3648447445) ALK PHOS (test code = 87 U/L 34-122 2531776472) ALTv (test code = 16 U/L 5-50 2-6) AST(SGOT) (test code = 26 U/L 13-40 3147930665) eGFR (test code = 5.3 mL/min/1.73m2 4552186501) TAHIRA (test code = TAHIRA) Association of [...] tests). Lab Interpretation Abnormal (test code = 33514-2) [facility]. METABOLIC PANEL ([id number])2022-05-09 23:40:31 Test Item Value Reference Range Interpretation Comments NA (test code = 135 mmol/L 135-145 5360592029) K (test code = 6.7 mmol/L 3.5-5.0 HH 8571443456) CL (test code = 98 mmol/L 98-108 2733697398) CO2 TOTAL (test code = 23 mmol/L 23-31 5354201193) AGAP (test code = 14 2-16 3227513719) BUN (test code = 63 mg/dL 7-23 H 7495621836) GLUCOSE (test code = 78 mg/dL 70-110 6694877747) CREATININE (test code = 10.57 mg/dL 0.60-1.25 H 5390984893) TOTAL BILI (test code = 0.7 mg/dL 0.1-1.7 2363485116) CALCIUM (test code = 9.1 mg/dL 8.6-10.6 3270024137) T PROTEIN (test code = 8.0 g/dL 6.3-8.2 0311481543) ALBUMIN (test code = 4.1 g/dL 3.5-5.0 1382298703) ALK PHOS (test code = 87 U/L 34-122 0594611870) ALTv (test code = 16 U/L 5-50 2-6) AST(SGOT) (test code = 26 U/L 13-40 6814283477) eGFR (test code = 5.3 mL/min/1.73m2 6985040901) TAHIRA (test code = TAHIRA) Association of [...] tests). Lab Interpretation Abnormal (test code = 96772-8) [facility] Test Item Value Reference Range Interpretation Comments MAGNESIUM (test code = 1153710144) 1.7 mg/dL 1.7-2.4 Lab Interpretation (test code = Normal 93921-1) [facility] Test Item Value Reference Range Interpretation Comments MAGNESIUM (test code = 8099110177) 1.7 mg/dL 1.7-2.4 Lab Interpretation (test code = Normal 39736-5) [facility] Test Item Value Reference Range Interpretation Comments MAGNESIUM (test code = 0804615236) 1.7 mg/dL 1.7-2.4 Lab Interpretation (test code = Normal 41975-9) [facility] WITH [id number] 22:58:09 Test Item Value Reference Range Interpretation Comments WBC (test code = 7.63 See_Comment [Automated 8790-2) message] The sy stem which generated this result transmitted reference range : 4.20 - 10.70 10*3/?L. The reference range was not used to interpret this result as normal/abnormal . RBC (test code = 4.30 See_Comment [Automated 869-8) message] The sy stem which generated this [...] (test code = 53.5 fL 38.5-51.6 H 54630-4) RDW-CV (test code = 19.9 % 12.1-15.4 H 788-0) PLT (test code = 350 See_Comment H [Automated 777-3) message] The sy stem which generated this result transmitted reference range : 150 - 328 10*3/ ?L. The reference r lorena was not used to interpret this result as normal/abnormal . MPV (test code = 10.2 fL 9.8-13.0 12341-8) NRBC/100 WBC (test 0.0 See_Comment [Automat ed code = 3469886343) message] The system which generated this result transmitted reference range : 0.0 - 10.0 /100 WBCs. The refer ence range was not u sed to interpret th is result as normal/abnormal . NRBC x10^3 (test code See_Comment [Auto mated = 2027124953) message] The s ystem which generated this result transmitted reference range : 10*3/?L. The reference range was not used to interpret this result as normal/abnormal . GRAN MAT (NEUT) % 74.1 % (test code = 770-8) IMM GRAN % (test code 0.10 % = 5632535896) LYMPH % (test code = 11.8 % 736-9) MONO % (test code = 11.0 % 5905-5) EOS % (test code = 2.1 % 713-8) BASO % (test code = 0.9 % 706-2) GRAN MAT x10^3(ANC) 5.65 10*3/uL 1.99-6.95 (test code = 0921520627) IMM GRAN x10^3 (test 0.00-0.06 code = 2494197870) LYMPH x10^3 (test code 0.90 10*3/uL 1.09-3.23 L = 731-0) MONO x10^3 (test code 0.84 10*3/uL 0.36-1.02 = 742-7) EOS x10^3 (test code = 0.16 10*3/uL 0.06-0.53 711-2) BASO x10^3 (test code 0.07 10*3/uL 0.01-0.09 = 704-7) HJ BODIES (test code = Present A 7793-3) TARGET CELLS (test 2+ See_Comment A [Automat ed code = 09555-6) message] The system which generated this result [...] . Lab Interpretation Abnormal (test code = 83444-8) [facility] WITH [id number] 22:58:09 Test Item Value Reference Range Interpretation [...] (test code = 53.5 fL 38.5-51.6 H 47066-7) RDW-CV (test code = 19.9 % 12.1-15.4 H 788-0) PLT (test code = 350 See_Comment H [Automated 777-3) message] The sy stem which generated this result transmitted reference range : 150 - 328 10*3/ ?L. The reference r lorena was not used to interpret this result as normal/abnormal . MPV (test code = 10.2 fL 9.8-13.0 82269-6) NRBC/100 WBC (test 0.0 See_Comment [Automat ed code = 7443139617) message] The system which generated this result transmitted reference range : 0.0 - 10.0 /100 WBCs. The refer ence range was not u sed to interpret th is result as normal/abnormal . NRBC x10^3 (test code See_Comment [Auto mated = 6983268534) message] The s ystem which generated this result transmitted reference range : 10*3/?L. The reference range was not used to interpret this result as normal/abnormal . GRAN MAT (NEUT) % 74.1 % (test code = 770-8) IMM GRAN % (test code 0.10 % = 6088710313) LYMPH % (test code = 11.8 % 736-9) MONO % (test code = 11.0 % 5905-5) EOS % (test code = 2.1 % 713-8) BASO % (test code = 0.9 % 706-2) GRAN MAT x10^3(ANC) 5.65 10*3/uL 1.99-6.95 (test code = 7498483075) IMM GRAN x10^3 (test 0.00-0.06 code = 4874988625) LYMPH x10^3 (test code 0.90 10*3/uL 1.09-3.23 L = 731-0) MONO x10^3 (test code 0.84 10*3/uL 0.36-1.02 = 742-7) EOS x10^3 (test code = 0.16 10*3/uL 0.06-0.53 711-2) BASO x10^3 (test code 0.07 10*3/uL 0.01-0.09 = 704-7) HJ BODIES (test code = Present A 7793-3) TARGET CELLS (test 2+ See_Comment A [Automat ed code = 69352-5) message] The system which generated this result [...] . Lab Interpretation Abnormal (test code = 97194-7) [facility] WITH [id number] 22:58:09 Test Item Value Reference Range Interpretation [...] (test code = 53.5 fL 38.5-51.6 H 74062-2) RDW-CV (test code = 19.9 % 12.1-15.4 H 788-0) PLT (test code = 350 See_Comment H [Automated 777-3) message] The sy stem which generated this result transmitted reference range : 150 - 328 10*3/ ?L. The reference r lorena was not used to interpret this result as normal/abnormal . MPV (test code = 10.2 fL 9.8-13.0 80344-8) NRBC/100 WBC (test 0.0 See_Comment [Automat ed code = 4789352805) message] The system which generated this result transmitted reference range : 0.0 - 10.0 /100 WBCs. The refer ence range was not u sed to interpret th is result as normal/abnormal . NRBC x10^3 (test code See_Comment [Auto mated = 8016556001) message] The s ystem which generated this result transmitted reference range : 10*3/?L. The reference range was not used to interpret this result as normal/abnormal . GRAN MAT (NEUT) % 74.1 % (test code = 770-8) IMM GRAN % (test code 0.10 % = 2079695196) LYMPH % (test code = 11.8 % 736-9) MONO % (test code = 11.0 % 5905-5) EOS % (test code = 2.1 % 713-8) BASO % (test code = 0.9 % 706-2) GRAN MAT x10^3(ANC) 5.65 10*3/uL 1.99-6.95 (test code = 6396466172) IMM GRAN x10^3 (test 0.00-0.06 code = 3333300116) LYMPH x10^3 (test code 0.90 10*3/uL 1.09-3.23 L = 731-0) MONO x10^3 (test code 0.84 10*3/uL 0.36-1.02 = 742-7) EOS x10^3 (test code = 0.16 10*3/uL 0.06-0.53 711-2) BASO x10^3 (test code 0.07 10*3/uL 0.01-0.09 = 704-7) HJ BODIES (test code = Present A 7793-3) TARGET CELLS (test 2+ See_Comment A [Automat ed code = 37124-3) message] The system which generated this result [...] . Lab Interpretation Abnormal (test code = 14569-6) [facility] [id number] 00:13:00 Test Item Value Reference Range Interpretation Comments AFB culture No growth Specimen isolate (test after 6 weeks InformationSp ecimen code = 543-9) of Source: Tissue Specimen incubation. Site: Arm: Left arteriovenous f istula tissue [facility] [id number] 00:13:00 Test Item Value Reference Range Interpretation Comments AFB culture No growth Specimen isolate (test after 6 weeks InformationSp ecimen code = 543-9) of Source: Tissue Specimen incubation. Site: Arm: Left arteriovenous f istula tissue [facility] [id number] 00:13:00 Test Item Value Reference Range Interpretation Comments AFB culture No growth Specimen isolate (test after 6 weeks InformationSp ecimen code = 543-9) of Source: Tissue Specimen incubation. Site: Arm: Left arteriovenous f istula [facility] [id number] 00:13:00 Test Item Value Reference Range Interpretation Comments AFB culture No growth Specimen isolate (test after 6 weeks InformationSp ecimen code = 543-9) of Source: Tissue Specimen incubation. Site: Arm: Left arteriovenous f istula tissue [facility] [id number] 00:13:00 Test Item Value Reference Range Interpretation Comments AFB culture No growth Specimen isolate (test after 6 weeks InformationSp ecimen code = 543-9) of Source: Tissue Specimen incubation. Site: Arm: Left arteriovenous f istula tissue [facility] [id number] 00:13:00 Test Item Value Reference Range Interpretation Comments AFB culture No growth Specimen isolate (test after 6 weeks InformationSp ecimen code = 543-9) of Source: Tissue Specimen incubation. Site: Arm: Left arteriovenous f istula tissue for [facility] [id number] 00:13:00 Test Item Value Reference Range Interpretation Comments AFB culture No growth Specimen isolate (test after 6 weeks InformationSp ecimen code = 543-9) of Source: Tissue Specimen incubation. Site: Arm: Left arteriovenous f istula tissue [facility] [id number] 00:13:00 Test Item Value Reference Range Interpretation Comments AFB culture No growth Specimen isolate (test after 6 weeks InformationSp ecimen code = 543-9) of Source: Tissue Specimen incubation. Site: Arm: Left arteriovenous f istula tissue [facility] [id number] 00:13:00 Test Item Value Reference Range Interpretation Comments AFB culture No growth Specimen isolate (test after 6 weeks InformationSp ecimen code = 543-9) of Source: Tissue Specimen incubation. Site: Arm: Left arteriovenous f istula tissue [facility] cult [facility] [id number] 00:13:00 Test Item Value Reference Range Interpretation Comments AFB culture No growth Specimen isolate (test after 6 weeks InformationSp ecimen code = 543-9) of Source: Tissue Specimen incubation. Site: Arm: Left arteriovenous f istula tissue [facility] [id number] 00:13:00 Test Item Value Reference Range Interpretation Comments AFB culture No growth Specimen isolate (test after 6 weeks InformationSp ecimen code = 543-9) of Source: Tissue Specimen incubation. Site: Arm: Left arteriovenous f istula tissue [facility] [id number] 00:15:00 Test Item Value Reference Range Interpretation Comments Fungus culture No growth Specimen isolate (test after 4 weeks InformationSp ecimen code = 580-1) of Source: Tissue Specimen incubation. Site: Arm: Left arteriovenous f istula tissue [facility] cult [facility] [id number] 00:15:00 Test Item Value Reference Range Interpretation Comments Fungus culture No growth Specimen isolate (test after 4 weeks InformationSp ecimen code = 580-1) of Source: Tissue Specimen incubation. Site: Arm: Left arteriovenous f istula tissue [facility] cult [facility] [id number] 00:15:00 Test Item Value Reference Range Interpretation Comments Fungus culture No growth Specimen isolate (test after 4 weeks InformationSp ecimen code = 580-1) of Source: Tissue Specimen incubation. Site: Arm: Left arteriovenous f istula tissue [facility] cult [facility] [id number] 00:15:00 Test Item Value Reference Range Interpretation Comments Fungus culture No growth Specimen isolate (test after 4 weeks InformationSp ecimen code = 580-1) of Source: Tissue Specimen incubation. Site: Arm: Left arteriovenous f istula tissue for cult [facility] [id number] 00:15:00 Test Item Value Reference Range Interpretation Comments Fungus culture No growth Specimen isolate (test after 4 weeks InformationSp ecimen code = 580-1) of Source: Tissue Specimen incubation. Site: Arm: Left arteriovenous f istula tissue for cult [facility] [id number] 00:15:00 Test Item Value Reference Range Interpretation Comments Fungus culture No growth Specimen isolate (test after 4 weeks InformationSp ecimen code = 580-1) of Source: Tissue Specimen incubation. Site: Arm: Left arteriovenous f istula tissue for cult [facility] [id number] 00:15:00 Test Item Value Reference Range Interpretation Comments Fungus culture No growth Specimen isolate (test after 4 weeks InformationSp ecimen code = 580-1) of Source: Tissue Specimen incubation. Site: Arm: Left arteriovenous f istula tissue for cult [facility] [id number] 00:15:00 Test Item Value Reference Range Interpretation Comments Fungus culture No growth Specimen isolate (test after 4 weeks InformationSp ecimen code = 580-1) of Source: Tissue Specimen incubation. Site: Arm: Left arteriovenous f istula tissue for cult [facility] [id number] 00:15:00 Test Item Value Reference Range Interpretation Comments Fungus culture No growth Specimen isolate (test after 4 weeks InformationSp ecimen code = 580-1) of Source: Tissue Specimen incubation. Site: Arm: Left arteriovenous f istula tissue for cult [facility] [id number] 00:15:00 Test Item Value Reference Range Interpretation Comments Fungus culture No growth Specimen isolate (test after 4 weeks InformationSp ecimen code = 580-1) of Source: Tissue Specimen incubation. Site: Arm: Left arteriovenous f istula tissue for cult [facility] udtovpc9535-02-16 00:15:00 Test Item Value Reference Range Interpretation Comments Fungus culture No growth Specimen isolate (test after 4 weeks InformationSp ecimen code = 580-1) of Source: Tissue Specimen incubation. Site: Arm: Left arteriovenous f istula tissue [facility] [id number] 14:37:00 Test Item Value Reference Range Interpretation Comments Anaerobic No anaerobic Specimen culture isolate organisms InformationS pecimen (test code = isolated. Source: TissueS pecimen 48376-4) Site: Arm: Left arteriovenous f istula tissue [facility] [id number] 14:37:00 Test Item Value Reference Range Interpretation Comments Anaerobic No anaerobic Specimen culture isolate organisms InformationS pecimen (test code = isolated. Source: TissueS pecimen 18195-0) Site: Arm: Left arteriovenous f istula tissue [facility] [id number] 14:37:00 Test Item Value Reference Range Interpretation Comments Anaerobic No anaerobic Specimen culture isolate organisms InformationS pecimen (test code = isolated. Source: TissueS pecimen 52485-3) Site: Arm: Left arteriovenous f istula tissue [facility] [id number] 14:37:00 Test Item Value Reference Range Interpretation Comments Anaerobic No anaerobic Specimen culture isolate organisms InformationS pecimen (test code = isolated. Source: TissueS pecimen 14007-1) Site: Arm: Left arteriovenous f istula tissue [facility] [id number] 14:37:00 Test Item Value Reference Range Interpretation Comments Anaerobic No anaerobic Specimen culture isolate organisms InformationS pecimen (test code = isolated. Source: TissueS pecimen 63184-1) Site: Arm: Left arteriovenous f istula tissue [facility] [id number] 14:37:00 Test Item Value Reference Range Interpretation Comments Anaerobic No anaerobic Specimen culture isolate organisms InformationS pecimen (test code = isolated. Source: TissueS pecimen 91998-1) Site: Arm: Left arteriovenous f istula tissue [facility] [id number] 14:37:00 Test Item Value Reference Range Interpretation Comments Anaerobic No anaerobic Specimen culture isolate organisms InformationS pecimen (test code = isolated. Source: TissueS pecimen 36107-1) Site: Arm: Left arteriovenous f istula tissue [facility] [id number] 14:37:00 Test Item Value Reference Range Interpretation Comments Anaerobic No anaerobic Specimen culture isolate organisms InformationS pecimen (test code = isolated. Source: TissueS pecimen 66096-2) Site: Arm: Left arteriovenous f istula tissue for cult ure [facility] [id number] 14:37:00 Test Item Value Reference Range Interpretation Comments Anaerobic No anaerobic Specimen culture isolate organisms InformationS pecimen (test code = isolated. Source: TissueS pecimen 79961-2) Site: Arm: Left arteriovenous f istula tissue for cult ure [facility] [id number] 14:37:00 Test Item Value Reference Range Interpretation Comments Anaerobic No anaerobic Specimen culture isolate organisms InformationS pecimen (test code = isolated. Source: TissueS pecimen 80813-8) Site: Arm: Left arteriovenous f istula tissue for cult [facility] [id number] 14:37:00 Test Item Value Reference Range Interpretation Comments Anaerobic No anaerobic Specimen culture isolate organisms InformationS pecimen (test code = isolated. Source: TissueS pecimen 11445-5) Site: Arm: Left arteriovenous f istula tissue for cult ure [facility] [id number] 14:37:00 Test Item Value Reference Range Interpretation Comments Anaerobic No anaerobic Specimen culture isolate organisms InformationS pecimen (test code = isolated. Source: TissueS pecimen 03485-0) Site: Arm: Left arteriovenous f istula tissue for cult ure [facility] [id number] 03:13:00 Test Item Value Reference Range Interpretation Comments Tissue culture No growth Specimen isolate (test after 3 days. InformationSp ecimen code = 31004-9) Source: Tiss ueSpecimen Site: Arm: Left arteriovenous f istula tissue for cult ure [facility] [id number] 03:13:00 Test Item Value Reference Range Interpretation Comments Tissue culture No growth Specimen isolate (test after 3 days. InformationSp ecimen code = 12835-5) Source: Tiss ueSpecimen Site: Arm: Left arteriovenous f istula tissue for cult ure [facility] [id number] 03:13:00 Test Item Value Reference Range Interpretation Comments Tissue culture No growth Specimen isolate (test after 3 days. InformationSp ecimen code = 00215-6) [facility]: [facility] arteriovenous f istula tissue [facility] cult [facility] [id number] 03:13:00 Test Item Value Reference Range Interpretation Comments Tissue culture No growth Specimen isolate (test after 3 days. InformationSp ecimen code = 08357-7) Source: [facility] Site: Arm: Left arteriovenous f istula tissue for cult [facility] [id number] 03:13:00 Test Item Value Reference Range Interpretation Comments Tissue culture No growth Specimen isolate (test after 3 days. InformationSp ecimen code = 09876-5) Source: [facility] Site: Arm: Left arteriovenous f istula tissue [facility] [id number] 03:13:00 Test Item Value Reference Range Interpretation Comments Tissue culture No growth Specimen isolate (test after 3 days. InformationSp ecimen code = 07464-7) Source: [facility] Site: Arm: Left arteriovenous f istula tissue for cult [facility] [id number] 03:13:00 Test Item Value Reference Range Interpretation Comments Tissue culture No growth Specimen isolate (test after 3 days. InformationSp ecimen code = 10372-6) Source: [facility] Site: Arm: Left arteriovenous f istula tissue for cult [facility] [id number] 03:13:00 Test Item Value Reference Range Interpretation Comments Tissue culture No growth Specimen isolate (test after 3 days. InformationSp ecimen code = 30227-9) Source: [facility] Site: Arm: Left arteriovenous f istula tissue for cult ure [facility] [id number] 03:13:00 Test Item Value Reference Range Interpretation Comments Tissue culture No growth Specimen isolate (test after 3 days. InformationSp ecimen code = 46299-9) Source: [facility] Site: Arm: Left arteriovenous f istula tissue for cult [facility] [id number] 03:13:00 Test Item Value Reference Range Interpretation Comments Tissue culture No growth Specimen isolate (test after 3 days. InformationSp ecimen code = 24357-3) Source: [facility] Site: Arm: Left arteriovenous f istula tissue for [facility] [id number] 03:13:00 Test Item Value Reference Range Interpretation Comments Tissue culture No growth Specimen isolate (test after 3 days. InformationSp ecimen code = 58939-7) Source: [facility] Site: Arm: Left arteriovenous f istula tissue for [facility] [id number] 03:13:00 Test Item Value Reference Range Interpretation Comments Tissue culture No growth Specimen isolate (test after 3 days. InformationSp ecimen code = 86502-4) Source: [facility] Site: Arm: Left arteriovenous f istula [facility], (w Contrast, Strain and 3D if needed)2021-12-18 19:53:26 Test Item Value Reference Interpretation Comments Range Ao Root Diameter 3.28 cm (test code = 4899416095) AoV Area, Vmax (test 3.67 cm2 >=1.5 code = 0753543603) AoV Area, VTI (test 3.72 cm2 code = 9216230438) AoV Mean PG (test 3.84 mmHg code = 2722299103) AoV Peak PG (test 7.04 mmHg code = 9424833271) AoV Vmax (test code 1.37 m/s = 4252487220) AoV VTI (test code = 0.24 m 4072368128) IVS,d (test code = 1.79 cm 0.6-1 A 6221199644) IVS/LVPW,2D (test 1.28 code = 4045433256) Left Atrium 3.69 cm Dimension Anterior (test code = 8871560999) LV,d (test code = 4.62 cm 4338832941) LV EF,2D (test code 66.15 % = 4227475749) LV,s (test code = 3.22 cm 7130745192) LVOT area (test code 3.90 cm2 = 1240066847) LVOT Diam,S (test 2.23 cm code = 2532076518) LVOT Vmax (test code 1.27 m/s = 5259735249) LVOT VTI (test code 0.27 m = 0242087759) LVPWD,d (test code = 1.41 cm 0.60-1.19 A 9386893048) PV Pk Grad (test 5.97 mmHg code = 4268562060) PV VMAX (test code = 1.22 m/s 5159398081) RVOT Vmax (test code 1.17 m/s = 4467732192) MV E A ratio (test 0.80 code = 4155541997) E wave decelartion 154.26 See_Comment A [Automat ed time (test code = message] T he 8409517164) system which generated this result transmitted reference range : 200 msec. The reference range was not used to interpret this result as normal/abnormal . MV Peak A Tiago (test 1.01 m/s code = 6496583529) MV valve area p 1/2 4.92 cm2 method (test code = 7321446987) MV Peak E Tiago (test 0.81 m/s code = 0263252761) MV stenosis pressure 44.73 ms 1/2 time (test code = 2688527997) LVOT stroke volume 1.05 ml (test code = 4367233543) AV LVOT peak 6.26 mmHg gradient (test code = 5477719320) Ascending aorta 3.89 cm (test code = 6681902007) Ao Root Diameter 3.28 cm (test code = 7085038516) LV SYS VOL (test 41.61 ml 21-61 code = 5994642104) LV BRICEÑO VOL (test 98.42 ml 62-150 code = 3000966930) LA area s A4C (test 22.85 cm2 code = 6806585682) LV SV Teich 2D (test 56.81 ml code = 1887696940) LV Vol s Teich PSAX 41.61 ml (test code = 7315840452) RVOT pk grad (test 5.44 mmHg code = 3502462604) AoV Vmn (test code = 0.93 m/s 3689983209) LV FS Teich 2D (test 30.31 code = 8959879265) MV AE ratio (test 1.25 code = 8743339469) LV FS Cube 2D (test 30.31 code = 2894171413) LVOT Vmn (test code 0.82 = 8082863951) Aov area Vmn (test 3.64 cm2 code = 7537830926) LVOT mean grad (test 3.02 mmHg code = 0281882520) MAX Pred HR (test 173.13 code = 2732448423) 85 of MPHR (test 147.16 code = 0312290098) Calc MPHR (test code 173.13 bpm = 8846184320) LV SV Cube 2D (test 65.31 ml code = 1752755565) LV vol d cube 2D 98.73 ml (test code = 2221779306) LV vol s cube 2D 33.42 ml (test code = 6435338731) MV Decel slope (test 5.22 m/s2 code = 1975014796) Pred Exer Dur R1 10.72 (test code = 9300910865) Pred METS R1 (test 10.97 code = 0194111788) LA Vol MOD A4C (test 54.72 ml code = 5341837855) E tanesha sept (test 0.04 code = 6382191121) E prime lat (test 0.11 code = 4504093154) Velocity Ratio 0.93 m/s (V1/V2) (test code = 4689) EF (test code = 58 % 5501767449) E/A ratio (test code 0.80 = 0873436361) LVOT VTI (CM) (test 27.00 cm code = 5511872813) TAHIRA (test code = Normal left TAHIRA) [...] obtained. Lab Interpretation Abnormal (test code = 92405-8) [facility] (w Contrast, Strain and 3D if needed)2021-12-18 19:53:26 Test Item Value Reference Interpretation Comments Range Ao Root Diameter 3.28 cm (test code = 4649968785) AoV Area, Vmax (test 3.67 cm2 >=1.5 [Autom ated code = 5245540275) message] The system which generated this result transmitted reference range : >=1.5. The reference range was not used to interpret this result as normal/abnormal . AoV Area, VTI (test 3.72 cm2 code = 6018467475) AoV Mean PG (test 3.84 mmHg code = 5234669017) AoV Peak PG (test 7.04 mmHg code = 1115338878) AoV Vmax (test code 1.37 m/s = 4650436742) AoV VTI (test code = 0.24 m 5759354108) IVS,d (test code = 1.79 cm 0.6-1 A 3532493075) IVS/LVPW,2D (test 1.28 code = 2339865865) Left Atrium 3.69 cm Dimension Anterior (test code = 0906456568) LV,d (test code = 4.62 cm 4889162620) LV EF,2D (test code 66.15 % = 1255660888) LV,s (test code = 3.22 cm 9110471093) LVOT area (test code 3.90 cm2 = 9492943432) LVOT Diam,S (test 2.23 cm code = 7386890693) LVOT Vmax (test code 1.27 m/s = 6006177196) LVOT VTI (test code 0.27 m = 8112838006) LVPWD,d (test code = 1.41 cm 0.60-1.19 A 6641204276) PV Pk Grad (test 5.97 mmHg code = 7694121892) PV VMAX (test code = 1.22 m/s 1415502927) RVOT Vmax (test code 1.17 m/s = 2267230713) MV E A ratio (test 0.80 code = 3191825517) E wave decelartion 154.26 See_Comment A [Automat ed time (test code = message] T he 3886381630) system which generated this result transmitted reference range : 200 msec. The reference range was not used to interpret this result as normal/abnormal . MV Peak A Tiago (test 1.01 m/s code = 5480225251) MV valve area p 1/2 4.92 cm2 method (test code = 5472211522) MV Peak E Tiago (test 0.81 m/s code = 9136765728) MV stenosis pressure 44.73 ms 1/2 time (test code = 7429592470) LVOT stroke volume 1.05 ml (test code = 8279333752) AV LVOT peak 6.26 mmHg gradient (test code = 7651718953) Ascending aorta 3.89 cm (test code = 1939218049) Ao Root Diameter 3.28 cm (test code = 0727743741) LV SYS VOL (test 41.61 ml 21-61 code = 9374388302) LV BRICEÑO VOL (test 98.42 ml 62-150 code = 4366951144) LA area s A4C (test 22.85 cm2 code = 1336627309) LV SV Teich 2D (test 56.81 ml code = 9413524055) LV Vol s Teich PSAX 41.61 ml (test code = 3676563521) RVOT pk grad (test 5.44 mmHg code = 4115288974) AoV Vmn (test code = 0.93 m/s 6796189162) LV FS Teich 2D (test 30.31 code = 3416820337) MV AE ratio (test 1.25 code = 3587203832) LV FS Cube 2D (test 30.31 code = 6804271949) LVOT Vmn (test code 0.82 = 4195919441) Aov area Vmn (test 3.64 cm2 code = 1234569256) LVOT mean grad (test 3.02 mmHg code = 2916293569) MAX Pred HR (test 173.13 code = 2560104339) 85 of MPHR (test 147.16 code = 1208445559) Calc MPHR (test code 173.13 bpm = 7478083085) LV SV Cube 2D (test 65.31 ml code = 0391658730) LV vol d cube 2D 98.73 ml (test code = 9103257150) LV vol s cube 2D 33.42 ml (test code = 2674064836) MV Decel slope (test 5.22 m/s2 code = 4252875527) Pred Exer Dur R1 10.72 (test code = 2696433132) Pred METS R1 (test 10.97 code = 1572854261) LA Vol MOD A4C (test 54.72 ml code = 0896713923) E tanesha sept (test 0.04 code = 6070043865) E prime lat (test 0.11 code = 9050385204) Velocity Ratio 0.93 m/s (V1/V2) (test code = 4689) EF (test code = 58 % 0092403443) E/A ratio (test code 0.80 = 1367255574) LVOT VTI (CM) (test 27.00 cm code = 2190506802) TAHIRA (test code = Normal left TAHIRA) [...] obtained. Lab Interpretation Abnormal (test code = 62479-8) [facility] qambrms2487-79-18 02:14:00 Test Item Value Reference Range Interpretation Comments Aerobic culture No growth Specimen isolate (test after 2 days. InformationSp ecimen code = 63058-3) Source: Robyn Donahue Site: Arm: Left arteriovenous f istula wound [facility] lfpujat0480-42-36 02:14:00 Test Item Value Reference Range Interpretation Comments Aerobic culture No growth Specimen isolate (test after 2 days. InformationSp ecimen code = 05164-9) Source: Robyn Donahue Site: Arm: Left arteriovenous f istula wound [facility] qyqnryx6953-48-95 02:14:00 Test Item Value Reference Range Interpretation Comments Aerobic culture No growth Specimen isolate (test after 2 days. InformationSp ecimen code = 11090-4) Source: Robyn Donahue Site: Arm: [facility] [id number] 02:14:00 Test Item Value Reference Range Interpretation Comments Aerobic culture No growth Specimen isolate (test after 2 days. InformationSp ecimen code = 98105-1) Source: Robyn Donahue Site: Arm: Left arteriovenous f [facility]ula [facility] [id number] 02:14:00 Test Item Value Reference Range Interpretation Comments Aerobic culture No growth Specimen isolate (test after 2 days. InformationSp ecimen code = 37007-6) Source: Robyn Donahue Site: Arm: Left arteriovenous f [facility]ula [facility] [id number] 02:14:00 Test Item Value Reference Range Interpretation Comments Aerobic culture No growth Specimen isolate (test after 2 days. InformationSp ecimen code = 55555-6) Source: Robyn Donahue Site: Arm: Left arteriovenous f istula wound [facility] [id number] 02:14:00 Test Item Value Reference Range Interpretation Comments Aerobic culture No growth Specimen isolate (test after 2 days. InformationSp ecimen code = 06742-2) Source: Robyn Donahue Site: Arm: Left arteriovenous f [facility]ula [facility] [id number] 02:14:00 Test Item Value Reference Range Interpretation Comments Aerobic culture No growth Specimen isolate (test after 2 days. InformationSp ecimen code = 86132-5) Source: Robyn Donahue Site: Arm: Left arteriovenous f istula wound [facility] [id number] 02:14:00 Test Item Value Reference Range Interpretation Comments Aerobic culture No growth Specimen isolate (test after 2 days. InformationSp ecimen code = 15889-5) Source: enrico Rowan Site: Arm: Left arteriovenous f istula wound [facility] [id number] 02:14:00 Test Item Value Reference Range Interpretation Comments Aerobic culture No growth Specimen isolate (test after 2 days. InformationSp ecimen code = 35253-4) Source: Robyn Donahue Site: Arm: Left arteriovenous f istula wound [facility] [id number] 02:14:00 Test Item Value Reference Range Interpretation Comments Aerobic culture No growth Specimen isolate (test after 2 days. InformationSp ecimen code = 09995-8) Source: Robyn Donahue Site: Arm: Left arteriovenous f istula wound [facility] [id number] 02:14:00 Test Item Value Reference Range Interpretation Comments Aerobic culture No growth Specimen isolate (test after 2 days. InformationSp ecimen code = 74450-6) [facility]: Left arteriovenous f istula wound [facility] [id number] 22:04:00 Test Item Value Reference Range Interpretation Comments POC glucose (test code = 117 mg/dL 65-99 H Ope rator Name: 56602-2) René Terry ce ID: [id number] able: RN Notified Lab Interpretation (test Abnormal code = 56569-3) [facility] [id number] 22:04:00 Test Item Value Reference Range Interpretation Comments POC glucose (test code = 117 mg/dL 65-99 H Ope rator Name: 47107-5) René Terry ce ID: [id number] able: RN Notified Lab Interpretation (test Abnormal code = 77429-1) [facility]2022-09-18 22:04:00 Test Item Value Reference Range Interpretation Comments POC glucose (test code = 117 mg/dL 65-99 H Ope rator Name: 03566-4) René Terry ce ID: [id number] able: RN Notified Lab Interpretation (test Abnormal code = 51183-2) [facility]2022-09-18 22:04:00 Test Item Value Reference Range Interpretation Comments POC glucose (test code = 117 mg/dL 65-99 H Ope rator Name: 08760-4) René Terry ce ID: [id number] able: RN Notified Lab Interpretation (test Abnormal code = 51986-0) [facility]2022-09-18 22:04:00 Test Item Value Reference Range Interpretation Comments POC glucose (test code = 117 mg/dL 65-99 H Ope rator Name: 78148-0) René Terry ce ID: [id number] able: RN Notified Lab Interpretation (test Abnormal code = 01384-0) [facility]2022-09-18 22:04:00 Test Item Value Reference Range Interpretation Comments POC glucose (test code = 117 mg/dL 65-99 H Ope rator Name: 34599-6) René Terry ce ID: [id number] able: RN Notified Lab Interpretation (test Abnormal code = 72210-2) [facility]2022-09-18 22:04:00 Test Item Value Reference Range Interpretation Comments POC glucose (test code = 117 mg/dL 65-99 H Ope rator Name: 22351-1) René Terry ce ID: [id number] able: RN Notified Lab Interpretation (test Abnormal code = 54284-3) [facility]2022-09-18 22:04:00 Test Item Value Reference Range Interpretation Comments POC glucose (test code = 117 mg/dL 65-99 H Ope rator Name: 55564-5) René Terry ce ID: [id number] able: RN Notified Lab Interpretation (test Abnormal code = 25774-9) [facility]2022-09-18 22:04:00 Test Item Value Reference Range Interpretation Comments POC glucose (test code = 117 mg/dL 65-99 H Ope rator Name: 92125-5) René Terry ce ID: [id number] able: RN Notified Lab Interpretation (test Abnormal code = 90215-3) [facility] [id number] 22:04:00 Test Item Value Reference Range Interpretation Comments POC glucose (test code = 117 mg/dL 65-99 H Ope rator Name: 72630-8) René Terry ce ID: [id number] able: RN Notified Lab Interpretation (test Abnormal code = 17695-4) [facility] [id number] 22:04:00 Test Item Value Reference Range Interpretation Comments POC glucose (test code = 117 mg/dL 65-99 H Ope rator Name: 52761-6) René Terry ce ID: [id number] able: RN Notified Lab Interpretation (test Abnormal code = 79730-1) [facility] [id number] 22:04:00 Test Item Value Reference Range Interpretation Comments POC glucose (test code = 117 mg/dL 65-99 H Ope rator Name: 47856-1) René Terry ce ID: [id number] able: RN Notified Lab Interpretation (test Abnormal code = 08669-0) [facility] [id number] 20:27:00 Test Item Value Reference Range Interpretation Comments Fungus smear No fungi Specimen (test code = observed. Status4 Source: 1447) TissueSpecimen Site: Arm: Left arterioven ous fistula tissue for cult ure [facility] [id number] 20:27:00 Test Item Value Reference Range Interpretation Comments Fungus smear No fungi Specimen (test code = observed. Status4 Source: 1442) TissueSpecimen Site: Arm: Left arterioven ous fistula tissue for cult ure [facility] [id number] 20:27:00 Test Item Value Reference Range Interpretation Comments Fungus smear No fungi Specimen (test code = observed. Status4 Source: 1449) TissueSpecimen Site: Arm: Left arterioven ous fistula tissue for cult ure [facility] [id number] 20:27:00 Test Item Value Reference Range Interpretation Comments Fungus smear No fungi Specimen (test code = observed. Status4 Source: 1443) TissueSpecimen Site: Arm: Left arterioven ous fistula tissue for cult ure [facility] [id number] 20:27:00 Test Item Value Reference Range Interpretation Comments Fungus smear No fungi Specimen (test code = observed. Status4 Source: 1443) TissueSpecimen Site: Arm: Left arterioven ous fistula tissue for cult ure [facility] [id number] 20:27:00 Test Item Value Reference Range Interpretation Comments Fungus smear No fungi Specimen (test code = observed. Status4 Source: 1443) TissueSpecimen Site: Arm: Left arterioven ous fistula tissue for cult ure [facility] [id number] 20:27:00 Test Item Value Reference Range Interpretation Comments Fungus smear No fungi Specimen (test code = observed. Status4 Source: 1443) TissueSpecimen Site: Arm: Left arterioven ous fistula tissue for cult ure [facility] [id number] 20:27:00 Test Item Value Reference Range Interpretation Comments Fungus smear No fungi Specimen (test code = observed. Status4 Source: 1443) TissueSpecimen Site: Arm: Left arterioven ous fistula tissue for cult ure [facility] [id number] 20:27:00 Test Item Value Reference Range Interpretation Comments Fungus smear No fungi Specimen (test code = observed. Status4 Source: 1443) TissueSpecimen Site: Arm: Left arterioven ous fistula tissue for cult ure [facility] [id number] 20:27:00 Test Item Value Reference Range Interpretation Comments Fungus smear No fungi Specimen (test code = observed. Status4 Source: 1443) TissueSpecimen Site: Arm: Left arterioven ous fistula tissue for cult ure [facility] [id number] 20:27:00 Test Item Value Reference Range Interpretation Comments Fungus smear No fungi Specimen (test code = observed. Status4 Source: 1443) TissueSpecimen Site: Arm: Left arterioven ous fistula tissue for cult ure [facility] [id number] 20:27:00 Test Item Value Reference Range Interpretation Comments Fungus smear No fungi Specimen (test code = observed. InformationMEMC Electronic Materialsen [facility]: 1443[facility]: Left arterioven ous fistula tissue for cult ure [facility] [id number] 17:50:00 Test Item Value Reference Range Interpretation Comments AFB stain No acid fast Specimen (test code = bacilli (AFB) InformationSpe cimen 676-7) seen. Source: TissueS [facility] Site: Arm: Left arteriovenous f istula tissue for cult ure [facility] [id number] 17:50:00 Test Item Value Reference Range Interpretation Comments AFB stain No acid fast Specimen (test code = bacilli (AFB) InformationSpe cimen 676-7) seen. Source: TissueS [facility] Site: Arm: Left arteriovenous f istula tissue for cult ure [facility] [id number] 17:50:00 Test Item Value Reference Range Interpretation Comments AFB stain No acid fast Specimen (test code = bacilli (AFB) InformationSpe cimen 676-7) seen. Source: TissueS [facility] Site: Arm: Left arteriovenous f istula tissue for cult ure [facility] [id number] 17:50:00 Test Item Value Reference Range Interpretation Comments AFB stain No acid fast Specimen (test code = bacilli (AFB) InformationSpe cimen 676-7) seen. Source: TissueS [facility] Site: Arm: Left arteriovenous f istula tissue for cult ure [facility] [id number] 17:50:00 Test Item Value Reference Range Interpretation Comments AFB stain No acid fast Specimen (test code = bacilli (AFB) InformationSpe cimen 676-7) seen. Source: TissueS [facility] Site: Arm: Left arteriovenous f istula tissue for cult ure [facility] [id number] 17:50:00 Test Item Value Reference Range Interpretation Comments AFB stain No acid fast Specimen (test code = bacilli (AFB) InformationSpe cimen 676-7) seen. Source: TissueS [facility] Site: Arm: Left arteriovenous f istula tissue for cult ure [facility] [id number] 17:50:00 Test Item Value Reference Range Interpretation Comments AFB stain No acid fast Specimen (test code = bacilli (AFB) InformationSpe cimen 676-7) seen. Source: TissueS pecimen Site: Arm: Left arteriovenous f istula tissue for cult ure [facility] [id number] 17:50:00 Test Item Value Reference Range Interpretation Comments AFB stain No acid fast Specimen (test code = bacilli (AFB) InformationSpe cimen 676-7) seen. Source: TissueS pecimen Site: Arm: Left arteriovenous f istula tissue for cult ure [facility] [id number] 17:50:00 Test Item Value Reference Range Interpretation Comments AFB stain No acid fast Specimen (test code = bacilli (AFB) InformationSpe cimen 676-7) seen. Source: TissueS pecimen Site: Arm: Left arteriovenous f istula tissue for cult ure [facility] [id number] 17:50:00 Test Item Value Reference Range Interpretation Comments AFB stain No acid fast Specimen (test code = bacilli (AFB) InformationSpe cimen 676-7) seen. Source: TissueS pecimen Site: Arm: Left arteriovenous f istula tissue for cult ure [facility] [id number] 17:50:00 Test Item Value Reference Range Interpretation Comments AFB stain No acid fast Specimen (test code = bacilli (AFB) InformationSpe cimen 676-7) seen. Source: TissueS pecimen Site: Arm: Left arteriovenous f istula tissue for cult ure [facility] [id number] 17:50:00 Test Item Value Reference Range Interpretation Comments AFB stain No acid fast Specimen (test code = bacilli (AFB) InformationSpe cimen 676-7) seen. Source: TissueS pecimen Site: Arm: Left arteriovenous f istula tissue for cult ure [facility] [id number] 02:53:00 Test Item Value Reference Range Interpretation Comments Gram stain No WBC's or Specimen isolate (test organisms seen. Information Specimen code = 1469) Source: [place] eSpecimen Site: Arm: Left arteriovenous f istula wound [facility] [id number] 02:53:00 Test Item Value Reference Range Interpretation Comments Gram stain No WBC's or Specimen isolate (test organisms seen. Information Specimen code = 1469) Source: [place] eSpecimen Site: Arm: Left arteriovenous f istula wound [facility] [id number] 02:53:00 Test Item Value Reference Range Interpretation Comments Gram stain No WBC's or Specimen isolate (test organisms seen. Information Specimen code = 1469) Source: [place] eSpecimen Site: Arm: Left arteriovenous f istula wound [facility] [id number] 02:53:00 Test Item Value Reference Range Interpretation Comments Gram stain No WBC's or Specimen isolate (test organisms seen. Information Specimen code = 1469) Source: [place] eSpecimen Site: Arm: Left arteriovenous f istula wound [facility] [id number] 02:53:00 Test Item Value Reference Range Interpretation Comments Gram stain No WBC's or Specimen isolate (test organisms seen. Information Specimen code = 1469) Source: [place] eSpecimen Site: Arm: [facility]2022-09-18 02:53:00 Test Item Value Reference Range Interpretation Comments Gram stain No WBC's or Specimen isolate (test organisms seen. Information Specimen code = 1469) Source: [place] eSpecimen Site: Arm: [facility] [id number] 02:53:00 Test Item Value Reference Range Interpretation Comments Gram stain No WBC's or Specimen isolate (test organisms seen. Information Specimen code = 1469) Source: [place] eSpecimen Site: Arm: [facility] [id number] 02:53:00 Test Item Value Reference Range Interpretation Comments Gram stain No WBC's or Specimen isolate (test organisms seen. Information Specimen code = 1469) Source: [place] eSpecimen Site: Arm: Left arteriovenous f istula wound [facility] [id number] 02:53:00 Test Item Value Reference Range Interpretation Comments Gram stain No WBC's or Specimen isolate (test organisms seen. Information Specimen code = 1469) Source: [place] eSpecimen Site: Arm: Left arteriovenous f istula wound [facility] [id number] 02:53:00 Test Item Value Reference Range Interpretation Comments Gram stain No WBC's or Specimen isolate (test organisms seen. Information Specimen code = 1469) Source: [place] eSpecimen Site: Arm: Left arteriovenous f istula wound [facility] [id number] 02:53:00 Test Item Value Reference Range Interpretation Comments Gram stain No WBC's or Specimen isolate (test organisms seen. Information Specimen code = 1469) Source: [place] eSpecimen Site: Arm: Left arteriovenous f istula wound [facility] [id number] 02:53:00 Test Item Value Reference Range Interpretation Comments Gram stain No WBC's or Specimen isolate (test organisms seen. Information Specimen code = 1469) Source: [place] eSpecimen Site: Arm: Left arteriovenous f istula wound [facility] RBC, 1 [id number] 00:49:00 Test Item Value Reference Range Interpretation Comments Product name (test Red Blood Cells code = 25) -1, Leukored Unit number (test [id number] code = 4688344) Product code (test S3996C70 code = 3092) Dispense status Transfused (test [...] 09:50 PER TAHIRA) /OR BLOOD REQUEST. Kassi Red [facility] RBC, 1 [id number] 00:49:00 Test Item Value Reference Range Interpretation Comments Product name (test Red Blood Cells code = 25) -1, Leukored Unit number (test [id number] code = 2065530) Product code (test A0099Z29 code = 3092) Dispense status (test Transfused [...] 09:50 PER /OR BLOOD REQUEST. Kassi Myalil [facility] RBC, 1 [id number] 00:49:00 Test Item Value Reference Range Interpretation Comments Product name (test Red Blood Cells code = 25) -1, Leukored Unit number (test [id number] code = 1963248) Product code (test B6087A34 code = 3092) Dispense status (test Transfused [...] 09:50 PER /OR BLOOD REQUEST. Kassi Myalil [facility] RBC, 1 [id number] 00:49:00 Test Item Value Reference Range Interpretation Comments Product name (test Red Blood Cells code = 25) -1, Leukored Unit number (test [id number] code = 4944907) Product code (test E3008H96 code = 3092) Dispense status Transfused (test code = 24) Blood expiration [id number] date (test code = 302) Blood type code 6200 (test code = 308) Blood type (test A POSITIVE Returned fr om code = 1314) OR in cooler, Temp:4.0 C, Hemotemp and Visual Checksacceptabl e. 12/15/21 15:06 Kassi Myalil Compatibility (test Compatible code = 6400) TAHIRA (test code = 12/15/21 09:50 PER TAHIRA) /OR BLOOD REQUEST. Kassi Myalil [facility], 1 [id number] 00:49:00 Test Item Value Reference Range Interpretation Comments Product name (test Red Blood Cells code = 25) -1, Leukored Unit number (test [id number] code = 4347988) Product code (test W7543C46 code = 3092) Dispense status Transfused (test code = 24) Blood expiration date (test code = 302) Blood type code 6200 (test code = 308) Blood type (test A POSITIVE Returned fr om code = 1314) OR in cooler, Temp:4.0 C, Hemotemp and Visual Checksacceptabl e. 12/15/21 15:06 Kassi Myalil Compatibility (test Compatible code = 6400) TAHIAR (test code = 12/15/21 09:50 PER TAHIRA) /OR BLOOD REQUEST. Kassi Myalil [facility], 1 [id number] 00:49:00 Test Item Value Reference Range Interpretation Comments Product name (test Red Blood Cells code = 25) -1, Leukored Unit number (test [id number] code = 5421082) Product code (test F8476I42 code = 3092) Dispense status Transfused (test [...] PER TAHIRA) /OR BLOOD REQUEST. Kassi Myalil [facility] RBC, 1 [id number] 00:49:00 Test Item Value Reference Range Interpretation Comments Product name (test Red Blood Cells code = 25) -1, Leukored Unit number (test [id number] code = 1211555) Product code (test Q1718Q64 code = 3092) Dispense status Transfused (test [...] PER TAHIRA) /OR BLOOD REQUEST. Kassi Myalil [facility] RBC, 1 [id number] 00:49:00 Test Item Value Reference Range Interpretation Comments Product name (test Red Blood Cells code = 25) -1, Leukored Unit number (test [id number] code = 8680901) Product code (test L9521R51 code = 3092) Dispense status Transfused (test [...] PER TAHIRA) /OR BLOOD REQUEST. Kassi Myalil [facility], 1 [id number] 00:49:00 Test Item Value Reference Range Interpretation Comments Product name (test Red Blood Cells code = 25) -1, Leukored Unit number (test [id number] code = 2285196) Product code (test F7692W42 code = 3092) Dispense status Transfused (test [...] PER TAHIRA) /OR BLOOD REQUEST. Kassi Myalil [facility], 1 [id number] 00:49:00 Test Item Value Reference Range Interpretation Comments Product name (test Red Blood Cells code = 25) -1, Leukored Unit number (test [id number] code = 6555484) Product code (test C5466N76 code = 3092) Dispense status Transfused (test [...] PER TAHIRA) /OR BLOOD REQUEST. Kassi Myalil [facility], 1 [id number] 00:49:00 Test Item Value Reference Range Interpretation Comments Product name (test Red Blood Cells code = 25) -1, Leukored Unit number (test [id number] code = 5988515) Product code (test K9485F94 code = 3092) Dispense status Transfused (test [...] PER TAHIRA) /OR BLOOD REQUEST. Kassi Myalil [facility], 1 [id number] 00:49:00 Test Item Value Reference Range Interpretation Comments Product name (test Red Blood Cells code = 25) -1, Leukored Unit number (test [id number] code = 6555889) Product code (test I8587X77 code = 3092) Dispense status Transfused (test [...] 09:50 PER TAHIRA) /OR BLOOD REQUEST. [facility]i [facility], [id number] 19:45:00 Test Item Value Reference Range Interpretation Comments Sodium, syringe (test 135 See_Comment [Auto mated message] The code = 2947-0) system which generated this result tra nsmitted reference range : 125 - 148 mEq/L. The refe rence range was not used to interpret this result as normal/abnormal . [facility], [id number] 19:45:00 Test Item Value Reference Range Interpretation [...] pH, arterial corrected 7.40 (test code = 57858-9) pCO2, arterial corrected 37 mmHg (test code = 95818-5) pO2, arterial corrected 400 mmHg (test code = 80411-1) Base excess, arterial -2 See_Comment [Auto mated message] (test code = 1925-7) The s tem which generated this result transmitted ref erence range: -2 - 2 m Eq/L. The reference r lorena was not used to interpret this result as normal/abnor mal. Lab Interpretation (test Abnormal code = 50015-2) [facility], [id number] 19:45:00 Test Item Value Reference Range Interpretation Comments Glucose, syringe (test code = 125 mg/dL 65-99 H 2345-7) Lab Interpretation (test code = Abnormal 84013-8) [facility], [id number] 19:45:00 Test Item Value Reference Range Interpretation Comments Hemoglobin, syringe (test 7.0 g/dL 14.0-18.0 LL Fi nal results code = 718-7) called to and read back by Autumn Perez RN. 12/15/2021 14:4 5 HE Lab Interpretation (test Abnormal code = 69021-3) [facility] calcium, [id number] 19:45:00 Test Item Value Reference Range Interpretation Comments Ionized calcium, arterial (test 1.10 mmol/L 1.11-1.32 L code = 80857-5) Lab Interpretation (test code = Abnormal 53593-3) [facility] Hospital[facility]assium, [id number] 19:45:00 Test Item Value Reference Range Interpretation Comments Potassium, syringe 4.8 See_Comment [Automat ed message] The (test code = 2007) system [facility] generated this result tra nsmitted reference range : 3.5 - 5.0 mEq/L. The refe rence range was not used to interpret this result as normal/abnormal . [facility], [id number] 19:45:00 Test Item Value Reference Range Interpretation Comments Sodium, syringe (test 135 See_Comment [Auto mated message] The code = 2947-0) system which generated this result tra nsmitted reference range : 125 - 148 mEq/L. The refe rence range was not used to interpret this result as normal/abnormal . [facility], [id number] 19:45:00 Test Item Value Reference Range Interpretation Comments pH, arterial (test code 7.38 7.35-7.45 = 2744-1) pCO2, arterial (test 39 See_Comment [Autom ated message] code = 2019-8) The system [facility] generated this result transmitted ref erence range: 35 - 45 mmHg. The reference r lorena was not used to interpret this result as normal/abnor mal. pO2, arterial (test code 405 See_Comment H [A utomated message] = 2703-7) The system [facility] h generated this result transmitted ref erence range: 80 - 90 mmHg. The reference r lorena was not used to interpret this result as normal/abnor mal. Temperature, Celsius 36.0 Degrees C (test code = 8310-5) O2 saturation, arterial 100 % 95-100 (test code = 2708-6) pH, arterial corrected 7.40 (test code = 30916-7) pCO2, arterial corrected 37 mmHg (test code = 10285-5) pO2, arterial corrected 400 mmHg (test code = 02437-0) Base excess, arterial -2 See_Comment [Auto mated message] (test code = 1925-7) The s tem which generated this result transmitted ref erence range: -2 - 2 m Eq/L. The reference r lorena was not used to interpret this result as normal/abnor mal. Lab Interpretation (test Abnormal code = 08617-1) [facility], [id number] 19:45:00 Test Item Value Reference Range Interpretation Comments Glucose, syringe (test code = 125 mg/dL 65-99 H 2345-7) Lab Interpretation (test code = Abnormal 26682-0) [facility], [id number] 19:45:00 Test Item Value Reference Range Interpretation Comments Hemoglobin, syringe (test 7.0 g/dL 14.0-18.0 LL Fi nal results code = 718-7) called to and read back by Autumn Perez RN. 12/15/2021 14:4 5 HE Lab Interpretation (test Abnormal code = 53860-8) [facility], [id number] 19:45:00 Test Item Value Reference Range Interpretation Comments Ionized calcium, arterial (test 1.10 mmol/L 1.11-1.32 L code = 50882-1) Lab Interpretation (test code = Abnormal 25990-9) [facility], [id number] 19:45:00 Test Item Value Reference Range Interpretation Comments Potassium, syringe 4.8 See_Comment [Automat ed message] The (test code = 2007) system ich generated this result tra nsmitted reference range : 3.5 - 5.0 mEq/L. The refe rence range was not used to interpret this result as normal/abnormal . [facility] [id number] 19:45:00 Test Item Value Reference Range Interpretation Comments Sodium, syringe (test 135 See_Comment [Auto mated message] The code = 2947-0) system which generated this result tra nsmitted reference range : 125 - 148 mEq/L. The refe rence range was not used to interpret this result as normal/abnormal . [facility]Ar[facility], [id number] 19:45:00 Test Item Value Reference Range Interpretation [...] [A utomated message] = 2703-7) The system [employer] h generated this result transmitted ref erence range: 80 - 90 mmHg. The reference r lorena was not used to interpret this result as normal/abnor mal. Temperature, Celsius 36.0 Degrees C (test code = 8310-5) O2 saturation, arterial 100 % 95-100 (test code = 2708-6) pH, arterial corrected 7.40 (test code = 37412-6) pCO2, arterial corrected 37 mmHg (test code = 53794-7) pO2, arterial corrected 400 mmHg (test code = 61951-8) Base excess, arterial -2 See_Comment [Auto mated message] (test code = 1925-7) The s tem which generated this result transmitted ref erence range: -2 - 2 m Eq/L. The reference r lorena was not used to interpret this result as normal/abnor mal. Lab Interpretation (test Abnormal code = 06884-4) [facility], [id number] 19:45:00 Test Item Value Reference Range Interpretation Comments Glucose, syringe (test code = 125 mg/dL 65-99 H 2345-7) Lab Interpretation (test code = Abnormal 48743-3) [facility], [id number] 19:45:00 Test Item Value Reference Range Interpretation Comments Hemoglobin, syringe (test 7.0 g/dL 14.0-18.0 LL Fi nal results code = 718-7) called to and read back by Autumn Perez RN. 12/15/2021 14:4 5 HE Lab Interpretation (test Abnormal code = 47178-3) [facility], [id number] 19:45:00 Test Item Value Reference Range Interpretation Comments Ionized calcium, arterial (test 1.10 mmol/L 1.11-1.32 L code = 58088-0) Lab Interpretation (test code = Abnormal 36318-3) [facility], [id number] 19:45:00 Test Item Value Reference Range Interpretation Comments Potassium, syringe 4.8 See_Comment [Automat ed message] The (test code = 2007) system [facility] generated this result tra nsmitted reference range : 3.5 - 5.0 mEq/L. The refe rence range was not used to interpret this result as normal/abnormal . [facility], [id number] 19:45:00 Test Item Value Reference Range Interpretation Comments Sodium, syringe (test 135 See_Comment [Auto mated message] The code = 2947-0) system which generated this result tra nsmitted reference range : 125 - 148 mEq/L. The refe rence range was not used to interpret this result as normal/abnormal . [facility]Ar[facility], [id number] 19:45:00 Test Item Value Reference Range Interpretation Comments pH, arterial (test code 7.38 7.35-7.45 = 2744-1) pCO2, arterial (test 39 See_Comment [Autom ated message] code = 2019-8) The system [facility] generated this result transmitted ref erence range: 35 - 45 mmHg. The reference r lorena was not used to interpret this result as normal/abnor mal. pO2, arterial (test code 405 See_Comment H [A utomated message] = 2703-7) The system [facility] h generated this result transmitted ref erence range: 80 - 90 mmHg. The reference r lorena was not used to interpret this result as normal/abnor mal. Temperature, Celsius 36.0 Degrees C (test code = 8310-5) O2 saturation, arterial 100 % 95-100 (test code = 2708-6) pH, arterial corrected 7.40 (test code = 58510-9) pCO2, arterial corrected 37 mmHg (test code = 62846-8) pO2, arterial corrected 400 mmHg (test code = 43853-8) Base excess, arterial -2 See_Comment [Auto mated message] (test code = 1925-7) The sys tem which generated this result transmitted ref erence range: -2 - 2 m Eq/L. The reference r lorena was not used to interpret this result as normal/abnor mal. Lab Interpretation (test Abnormal code = 87161-9) [facility], [id number] 19:45:00 Test Item Value Reference Range Interpretation Comments Glucose, syringe (test code = 125 mg/dL 65-99 H 2345-7) Lab Interpretation (test code = Abnormal 79063-5) [facility] HospitalH[facility], [id number] 19:45:00 Test Item Value Reference Range Interpretation Comments Hemoglobin, syringe (test 7.0 g/dL 14.0-18.0 LL Fi nal results code = 718-7) called to and read back by Autumn Perez RN. 12/15/2021 14:4 5 HE Lab Interpretation (test Abnormal code = 78522-5) [facility], [id number] 19:45:00 Test Item Value Reference Range Interpretation Comments Ionized calcium, arterial (test 1.10 mmol/L 1.11-1.32 L code = 52077-9) Lab Interpretation (test code = Abnormal 99207-6) [facility]Pot[facility], [id number] 19:45:00 Test Item Value Reference Range Interpretation Comments Potassium, syringe 4.8 See_Comment [Automat ed message] The (test code = 2007) system wh ich generated this result tra nsmitted reference range : 3.5 - 5.0 mEq/L. The refe rence range was not used to interpret this result as normal/abnormal . [facility], [id number] 19:45:00 Test Item Value Reference Range Interpretation Comments Sodium, syringe (test 135 See_Comment [Auto mated message] The code = 2947-0) system which generated this result tra nsmitted reference range : 125 - 148 mEq/L. The refe rence range was not used to interpret this result as normal/abnormal . [facility]Ar[facility] blood gas, [id number] 19:45:00 Test Item Value Reference Range Interpretation [...] 405 See_Comment H [A utomated message] = 9643-7) The system whic h generated this result transmitted ref erence range: 80 - 90 mmHg. The reference r lorena was not used to interpret this result as normal/abnor mal. Temperature, Celsius 36.0 Degrees C (test code = 8310-5) O2 saturation, arterial 100 % 95-100 (test code = 2708-6) pH, arterial corrected 7.40 (test code = 51613-6) pCO2, arterial corrected 37 mmHg (test code = 94652-6) pO2, arterial corrected 400 mmHg (test code = 49632-8) Base excess, arterial -2 See_Comment [Auto mated message] (test code = 1925-7) The sys tem which generated this result transmitted ref erence range: -2 - 2 m Eq/L. The reference r lorena was not used to interpret this result as normal/abnor mal. Lab Interpretation (test Abnormal code = 31166-9) [facility], [id number] 19:45:00 Test Item Value Reference Range Interpretation Comments Glucose, syringe (test code = 125 mg/dL 65-99 H 2345-7) Lab Interpretation (test code = Abnormal 69803-6) [facility], [id number] 19:45:00 Test Item Value Reference Range Interpretation Comments Hemoglobin, syringe (test 7.0 g/dL 14.0-18.0 LL Fi nal results code = 718-7) called to and read back by Autumn Perez RN. 12/15/2021 14:4 5 HE Lab Interpretation (test Abnormal code = 54993-1) [facility], [id number] 19:45:00 Test Item Value Reference Range Interpretation Comments Ionized calcium, arterial (test 1.10 mmol/L 1.11-1.32 L code = 44673-0) Lab Interpretation (test code = Abnormal 30979-3) [facility]Pot[facility], [id number] 19:45:00 Test Item Value Reference Range Interpretation Comments Potassium, syringe 4.8 See_Comment [Automat ed message] The (test code = 2007) system [facility] generated this result tra nsmitted reference range : 3.5 - 5.0 mEq/L. The refe rence range was not used to interpret this result as normal/abnormal . [facility], [id number] 19:45:00 Test Item Value Reference Range Interpretation Comments Sodium, syringe (test 135 See_Comment [Auto mated message] The code = 2947-0) system which generated this result tra nsmitted reference range : 125 - 148 mEq/L. The refe rence range was not used to interpret this result as normal/abnormal . [facility]Ar[facility] blood gas, [id number] 19:45:00 Test Item Value Reference Range Interpretation Comments pH, arterial (test code 7.38 7.35-7.45 = 2744-1) pCO2, arterial (test 39 See_Comment [Autom ated message] code = 2019-8) The system [facility] generated this result transmitted ref erence range: 35 - 45 mmHg. The reference r lorena was not used to interpret this result as normal/abnor mal. pO2, arterial (test code 405 See_Comment H [A utomated message] = 2703-7) The system [facility] h generated this result transmitted ref erence range: 80 - 90 mmHg. The reference r lorena was not used to interpret this result as normal/abnor mal. Temperature, Celsius 36.0 Degrees C (test code = 8310-5) O2 saturation, arterial 100 % 95-100 (test code = 2708-6) pH, arterial corrected 7.40 (test code = 45129-2) pCO2, arterial corrected 37 mmHg (test code = 22501-0) pO2, arterial corrected 400 mmHg (test code = 86082-0) Base excess, arterial -2 See_Comment [Auto mated message] (test code = 1925-7) The [facility] tem which generated this result transmitted ref erence range: -2 - 2 m Eq/L. The reference r lorena was not used to interpret this result as normal/abnor mal. Lab Interpretation (test Abnormal code = 60155-6) [facility]Gl[facility], [id number] 19:45:00 Test Item Value Reference Range Interpretation Comments Glucose, syringe (test code = 125 mg/dL 65-99 H 2345-7) Lab Interpretation (test code = Abnormal 06708-7) [facility] HospitalHemoglobin, [id number] 19:45:00 Test Item Value Reference Range Interpretation Comments Hemoglobin, syringe (test 7.0 g/dL 14.0-18.0 LL Fi nal results code = 718-7) called to and read back by Autumn Perez RN. 12/15/2021 14:4 5 HE Lab Interpretation (test Abnormal code = 63138-1) [facility] calcium, [id number] 19:45:00 Test Item Value Reference Range Interpretation Comments Ionized calcium, arterial (test 1.10 mmol/L 1.11-1.32 L code = 65221-8) Lab Interpretation (test code = Abnormal 14417-9) [facility]Pot[facility], [id number] 19:45:00 Test Item Value Reference Range Interpretation Comments Potassium, syringe 4.8 See_Comment [Automat ed message] The (test code = 2007) system [facility] generated this result tra nsmitted reference range : 3.5 - 5.0 mEq/L. The refe rence range was not used to interpret this result as normal/abnormal . [facility], [id number] 19:45:00 Test Item Value Reference Range Interpretation Comments Sodium, syringe (test 135 See_Comment [Auto mated message] The code = 2947-0) system which generated this result tra nsmitted reference range : 125 - 148 mEq/L. The refe rence range was not used to interpret this result as normal/abnormal . [facility]Ar[facility], [id number] 19:45:00 Test Item Value Reference Range Interpretation Comments pH, arterial (test code 7.38 7.35-7.45 = 2744-1) pCO2, arterial (test 39 See_Comment [Autom ated message] code = 2019-8) The system [facility] generated this result transmitted ref erence range: 35 - 45 mmHg. The reference r lorena was not used to interpret this result as normal/abnor mal. pO2, arterial (test code 405 See_Comment H [A utomated message] = 8093-7) The system [employer] generated this result transmitted ref erence range: 80 - 90 mmHg. The reference r lorena was not used to interpret this result as normal/abnor mal. Temperature, Celsius 36.0 Degrees C (test code = 8310-5) O2 saturation, arterial 100 % 95-100 (test code = 2708-6) pH, arterial corrected 7.40 (test code = 75567-5) pCO2, arterial corrected 37 mmHg (test code = 05396-6) pO2, arterial corrected 400 mmHg (test code = 61680-5) Base excess, arterial -2 See_Comment [Auto mated message] (test code = 1925-7) The sys tem which generated this result transmitted ref erence range: -2 - 2 m Eq/L. The reference r lorena was not used to interpret this result as normal/abnor mal. Lab Interpretation (test Abnormal code = 06256-5) [facility], [id number] 19:45:00 Test Item Value Reference Range Interpretation Comments Glucose, syringe (test code = 125 mg/dL 65-99 H 2345-7) Lab Interpretation (test code = Abnormal 67394-6) [facility], [id number] 19:45:00 Test Item Value Reference Range Interpretation Comments Hemoglobin, syringe (test 7.0 g/dL 14.0-18.0 LL Fi nal results code = 718-7) called to and read back by Autumn Perez RN. 12/15/2021 14:4 5 HE Lab Interpretation (test Abnormal code = 39530-1) [facility], [id number] 19:45:00 Test Item Value Reference Range Interpretation Comments Ionized calcium, arterial (test 1.10 mmol/L 1.11-1.32 L code = 56787-3) Lab Interpretation (test code = Abnormal 83259-9) [facility], [id number] 19:45:00 Test Item Value Reference Range Interpretation Comments Potassium, syringe 4.8 See_Comment [Automat ed message] The (test code = 2007) system wh ich generated this result tra nsmitted reference range : 3.5 - 5.0 mEq/L. The refe rence range was not used to interpret this result as normal/abnormal . [facility], [id number] 19:45:00 Test Item Value Reference Range Interpretation Comments Sodium, syringe (test 135 See_Comment [Auto mated message] The code = 2947-0) system which generated this result tra nsmitted reference range : 125 - 148 mEq/L. The refe rence range was not used to interpret this result as normal/abnormal . [facility]Ar[facility], [id number] 19:45:00 Test Item Value Reference Range Interpretation [...] [A utomated message] = 2703-7) The system [facility] h generated this result transmitted ref erence range: 80 - 90 mmHg. The reference r lorena was not used to interpret this result as normal/abnor mal. Temperature, Celsius 36.0 Degrees C (test code = 8310-5) O2 saturation, arterial 100 % 95-100 (test code = 2708-6) pH, arterial corrected 7.40 (test code = 06202-3) pCO2, arterial corrected 37 mmHg (test code = 71553-2) pO2, arterial corrected 400 mmHg (test code = 27331-4) Base excess, arterial -2 See_Comment [Auto mated message] (test code = 1925-7) The [facility] tem which generated this result transmitted ref erence range: -2 - 2 m Eq/L. The reference r lorena was not used to interpret this result as normal/abnor mal. Lab Interpretation (test Abnormal code = 33461-6) [facility]Gl[facility], [id number] 19:45:00 Test Item Value Reference Range Interpretation Comments Glucose, syringe (test code = 125 mg/dL 65-99 H 2345-7) Lab Interpretation (test code = Abnormal 42194-1) [facility] HospitalHemoglobin, [id number] 19:45:00 Test Item Value Reference Range Interpretation Comments Hemoglobin, syringe (test 7.0 g/dL 14.0-18.0 LL Fi nal results code = 718-7) called to and read back by Autumn Perez RN. 12/15/2021 14:4 5 HE Lab Interpretation (test Abnormal code = 50415-3) [facility], [id number] 19:45:00 Test Item Value Reference Range Interpretation Comments Ionized calcium, arterial (test 1.10 mmol/L 1.11-1.32 L code = 58785-6) Lab Interpretation (test code = Abnormal 54845-8) [facility]Pot[facility], [id number] 19:45:00 Test Item Value Reference Range Interpretation Comments Potassium, syringe 4.8 See_Comment [Automat ed message] The (test code = 2007) system [facility] generated this result tra nsmitted reference range : 3.5 - 5.0 mEq/L. The refe rence range was not used to interpret this result as normal/abnormal . [facility], [id number] 19:45:00 Test Item Value Reference Range Interpretation Comments Sodium, syringe (test 135 See_Comment [Auto mated message] The code = 2947-0) system which generated this result tra nsmitted reference range : 125 - 148 mEq/L. The refe rence range was not used to interpret this result as normal/abnormal . [facility]Ar[facility], [id number] 19:45:00 Test Item Value Reference Range Interpretation Comments pH, arterial (test code 7.38 7.35-7.45 = 2744-1) pCO2, arterial (test 39 See_Comment [Autom ated message] code = 2019-8) The system [facility] generated this result transmitted ref erence range: 35 - 45 mmHg. The reference r lorena was not used to interpret this result as normal/abnor mal. pO2, arterial (test code 405 See_Comment H [A utomated message] = 2703-7) The system [facility] h generated this result transmitted ref erence range: 80 - 90 mmHg. The reference r lorena was not used to interpret this result as normal/abnor mal. Temperature, Celsius 36.0 Degrees C (test code = 8310-5) O2 saturation, arterial 100 % 95-100 (test code = 2708-6) pH, arterial corrected 7.40 (test code = 57438-3) pCO2, arterial corrected 37 mmHg (test code = 96992-2) pO2, arterial corrected 400 mmHg (test code = 60732-4) Base excess, arterial -2 See_Comment [Auto mated message] (test code = 1925-7) The s tem which generated this result transmitted ref erence range: -2 - 2 m Eq/L. The reference r lorena was not used to interpret this result as normal/abnor mal. Lab Interpretation (test Abnormal code = 67935-6) [facility]Gl[facility], [id number] 19:45:00 Test Item Value Reference Range Interpretation Comments Glucose, syringe (test code = 125 mg/dL 65-99 H 2345-7) Lab Interpretation (test code = Abnormal 29807-1) [facility], [id number] 19:45:00 Test Item Value Reference Range Interpretation Comments Hemoglobin, syringe (test 7.0 g/dL 14.0-18.0 LL Fi nal results code = 718-7) called to and read back by Autumn Perez RN. 12/15/2021 14:4 5 HE Lab Interpretation (test Abnormal code = 71137-2) [facility], [id number] 19:45:00 Test Item Value Reference Range Interpretation Comments Ionized calcium, arterial (test 1.10 mmol/L 1.11-1.32 L code = 21661-8) Lab Interpretation (test code = Abnormal 48240-2) [facility]Pot[facility], [id number] 19:45:00 Test Item Value Reference Range Interpretation Comments Potassium, syringe 4.8 See_Comment [Automat ed message] The (test code = 2007) system ich generated this result tra nsmitted reference range : 3.5 - 5.0 mEq/L. The refe rence range was not used to interpret this result as normal/abnormal . [facility], [id number] 19:45:00 Test Item Value Reference Range Interpretation Comments Sodium, syringe (test 135 See_Comment [Auto mated message] The code = 2947-0) system which generated this result tra nsmitted reference range : 125 - 148 mEq/L. The refe rence range was not used to interpret this result as normal/abnormal . [facility], [id number] 19:45:00 Test Item Value Reference Range Interpretation [...] [A utomated message] = 2703-7) The system [employer] generated this result transmitted ref erence range: 80 - 90 mmHg. The reference r lorena was not used to interpret this result as normal/abnor mal. Temperature, Celsius Degrees C (test code = 8310-5) O2 saturation, arterial 100 % 95-100 (test code = 2708-6) pH, arterial corrected (test code = 83619-2) pCO2, arterial corrected mmHg (test code = 67865-2) pO2, arterial corrected mmHg (test code = 42333-7) Base excess, arterial See_Comment [Auto mated message] (test code = 1925-7) The [facility] tem which generated this result transmitted ref erence range: -2 - 2 m Eq/L. The reference r lorena was not used to interpret this result as normal/abnor mal. Lab Interpretation (test Abnormal code = 72355-4) [facility]Gl[facility], [id number] 19:45:00 Test Item Value Reference Range Interpretation Comments Glucose, syringe (test code = 125 mg/dL 65-99 H 2345-7) Lab Interpretation (test code = Abnormal 57127-8) [facility]oglobin, [id number] 19:45:00 Test Item Value Reference Range Interpretation Comments Hemoglobin, syringe (test 7.0 g/dL -18 LL Fi nal results code = 718-7) called to and read back by Autumn Perez RN. 12/15/2021 14:4 5 HE Lab Interpretation (test Abnormal code = 10777-5) [facility], [id number] 19:45:00 Test Item Value Reference Range Interpretation Comments Ionized calcium, arterial (test 1.10 mmol/L 1.11-1.32 L code = 68122-1) Lab Interpretation (test code = Abnormal 58088-4) [facility]Pot[facility], [id number] 19:45:00 Test Item Value Reference Range Interpretation Comments Potassium, syringe See_Comment [Automat ed message] The (test code = 2007) system [facility] generated this result tra nsmitted reference range : 3.5 - 5.0 mEq/L. The refe rence range was not used to interpret this result as normal/abnormal . [facility], [id number] 19:45:00 Test Item Value Reference Range Interpretation Comments Sodium, syringe (test See_Comment [Auto mated message] The code = 2947-0) system which generated this result tra nsmitted reference range : 125 - 148 mEq/L. The refe rence range was not used to interpret this result as normal/abnormal . [facility], [id number] 19:45:00 Test Item Value Reference Range Interpretation Comments pH, arterial (test code 7.35-7.45 = 2744-1) pCO2, arterial (test See_Comment [Autom ated message] code = 2019-8) The system [facility] generated this result transmitted ref erence range: 35 - 45 mmHg. The reference r lorena was not used to interpret this result as normal/abnor mal. pO2, arterial (test code See_Comment H [A utomated message] = 2703-7) The system [facility] generated this result transmitted ref erence range: 80 - 90 mmHg. The reference r lorena was not used to interpret this result as normal/abnor mal. Temperature, Celsius Degrees C (test code = 8310-5) O2 saturation, arterial 100 % 95-100 (test code = 2708-6) pH, arterial corrected (test code = 00345-7) pCO2, arterial corrected mmHg (test code = 18155-8) pO2, arterial corrected mmHg (test code = 11572-8) Base excess, arterial See_Comment [Auto mated message] (test code = 1925-7) The [facility] tem which generated this result transmitted ref erence range: -2 - 2 m Eq/L. The reference r lorena was not used to interpret this result as normal/abnor mal. Lab Interpretation (test Abnormal code = 40405-6) [facility], [id number] 19:45:00 Test Item Value Reference Range Interpretation Comments Glucose, syringe (test code = 125 mg/dL 65-99 H 2345-7) Lab Interpretation (test code = Abnormal 80092-9) [facility], [id number] 19:45:00 Test Item Value Reference Range Interpretation Comments Hemoglobin, syringe (test 7.0 g/dL 14.0-18.0 LL Fi nal results code = 718-7) called to and read back by Autumn Perez RN. 12/15/2021 14:4 5 HE Lab Interpretation (test Abnormal code = 85487-2) [facility], [id number] 19:45:00 Test Item Value Reference Range Interpretation Comments Ionized calcium, arterial (test 1.10 mmol/L 1.11-1.32 L code = 97387-0) Lab Interpretation (test code = Abnormal 45947-8) [facility], [id number] 19:45:00 Test Item Value Reference Range Interpretation Comments Potassium, syringe See_Comment [Automat ed message] The (test code = 2007) system [employer] generated this result tra nsmitted reference range : 3.5 - 5.0 mEq/L. The refe rence range was not used to interpret this result as normal/abnormal . [facility], [id number] 19:45:00 Test Item Value Reference Range Interpretation Comments Sodium, syringe (test See_Comment [Auto mated message] The code = 2947-0) system which generated this result tra nsmitted reference range : 125 - 148 mEq/L. The refe rence range was not used to interpret this result as normal/abnormal . [facility]Ar[facility] blood gas, [id number] 19:45:00 Test Item Value Reference Range Interpretation Comments pH, arterial (test code 7.38 7.35-7.45 = 2744-1) pCO2, arterial (test 39 See_Comment [Autom ated message] code = 2019-8) The system [employer] generated this result transmitted ref erence range: 35 - 45 mmHg. The reference r lorena was not used to interpret this result as normal/abnor mal. pO2, arterial (test code 405 See_Comment H [A utomated message] = 5127-7) The system whic h generated this result transmitted ref erence range: 80 - 90 mmHg. The reference r lorena was not used to interpret this result as normal/abnor mal. Temperature, Celsius 36.0 Degrees C (test code = 8310-5) O2 saturation, arterial 100 % 95-100 (test code = 2708-6) pH, arterial corrected 7.40 (test code = 96092-0) pCO2, arterial corrected 37 mmHg (test code = 09283-7) pO2, arterial corrected 400 mmHg (test code = 71550-7) Base excess, arterial -2 See_Comment [Auto mated message] (test code = 1925-7) The sys tem which generated this result transmitted ref erence range: -2 - 2 m Eq/L. The reference r lorena was not used to interpret this result as normal/abnor mal. Lab Interpretation (test Abnormal code = 24420-6) [facility], [id number] 19:45:00 Test Item Value Reference Range Interpretation Comments Glucose, syringe (test code = 125 mg/dL 65-99 H 2345-7) Lab Interpretation (test code = Abnormal 34322-9) [facility], [id number] 19:45:00 Test Item Value Reference Range Interpretation Comments Hemoglobin, syringe (test 7.0 g/dL 14.0-18.0 LL Fi nal results code = 718-7) called to and read back by Autumn Perez RN. 12/15/2021 14:4 5 HE Lab Interpretation (test Abnormal code = 71350-9) [facility], [id number] 19:45:00 Test Item Value Reference Range Interpretation Comments Ionized calcium, arterial (test 1.10 mmol/L 1.11-1.32 L code = 09288-4) Lab Interpretation (test code = Abnormal 07214-2) [facility]Pot[facility], [id number] 19:45:00 Test Item Value Reference Range Interpretation Comments Potassium, syringe 4.8 See_Comment [Automat ed message] The (test code = 2008) system [employer] generated this result tra nsmitted reference range : 3.5 - 5.0 mEq/L. The refe rence range was not used to interpret this result as normal/abnormal . [address]2022-09-17 04:07:28 Test Item Value Reference Range Interpretation Comments Ventricular rate 63 (test code = 253) Atrial rate (test 63 code = 255) UT interval (test 158 code = 266) QRSD [...] atrial enlargement-Anteroseptal infarct , age undetermined-Abnormal ECG-- [address]2022-09-17 04:07:28 Test Item Value Reference Range Interpretation Comments Ventricular rate (test code = 253) Atrial rate (test code = 255) UT interval (test code = 266) QRSD interval (test code = 260) QT interval (test code = 264) QTC interval (test code = 265) P axis 1 (test code = 267) QRS axis 1 (test code = 268) T wave axis (test code = 270) EKG impression (test Normal sinus code = 273) rhythm--Possible Left atrial enlargement-Anteroseptal infarct , age undetermined-Abnormal ECG-- [address]2022-09-17 04:07:28 Test Item Value Reference Range Interpretation Comments Ventricular rate (test code = 253) Atrial rate (test code = 255) UT interval (test code = 266) QRSD interval (test code = 260) QT interval (test code = 264) QTC interval (test code = 265) P axis 1 (test code = 267) QRS axis 1 (test code = 268) T wave axis (test code = 270) EKG impression (test Normal sinus code = 273) rhythm--Possible Left atrial enlargement-Anteroseptal infarct , age undetermined-Abnormal ECG-- [address]2022-09-17 04:07:28 Test Item Value Reference Range Interpretation Comments Ventricular rate 63 (test code = 253) Atrial rate (test 63 code = 255) UT interval (test 158 code = 266) QRSD [...] atrial enlargement-Anteroseptal infarct , age undetermined-Abnormal ECG-- [address]2022-09-17 04:07:28 Test Item Value Reference Range Interpretation Comments Ventricular rate 63 (test code = 253) Atrial rate (test 63 code = 255) UT interval (test 158 code = 266) QRSD [...] atrial enlargement-Anteroseptal infarct , age undetermined-Abnormal ECG-- [address]2022-09-17 04:07:28 Test Item Value Reference Range Interpretation Comments Ventricular rate 63 (test code = 253) Atrial rate (test 63 code = 255) UT interval (test 158 code = 266) QRSD [...] atrial enlargement-Anteroseptal infarct , age undetermined-Abnormal ECG-- [address]2022-09-17 04:07:28 Test Item Value Reference Range Interpretation Comments Ventricular rate 63 (test code = 253) Atrial rate (test 63 code = 255) UT interval (test 158 code = 266) QRSD [...] atrial enlargement-Anteroseptal infarct , age undetermined-Abnormal ECG-- [address]2022-09-17 04:07:28 Test Item Value Reference Range Interpretation Comments Ventricular rate 63 (test code = 253) Atrial rate (test 63 code = 255) UT interval (test 158 code = 266) QRSD [...] atrial enlargement-Anteroseptal infarct , age undetermined-Abnormal ECG-- [address]2022-09-17 04:07:28 Test Item Value Reference Range Interpretation Comments Ventricular rate 63 (test code = 253) Atrial rate (test 63 code = 255) UT interval (test 158 code = 266) QRSD [...] atrial enlargement-Anteroseptal infarct , age undetermined-Abnormal ECG-- [address]2022-09-17 04:07:28 Test Item Value Reference Range Interpretation Comments Ventricular rate 63 (test code = 253) Atrial rate (test 63 code = 255) UT interval (test 158 code = 266) QRSD [...] atrial enlargement-Anteroseptal infarct , age undetermined-Abnormal ECG-- [address]2022-09-17 04:07:28 Test Item Value Reference Range Interpretation Comments Ventricular rate 63 (test code = 253) Atrial rate (test 63 code = 255) UT interval (test 158 code = 266) QRSD [...] atrial enlargement-Anteroseptal infarct , age undetermined-Abnormal ECG-- [address]2022-09-17 04:07:28 Test Item Value Reference Range Interpretation Comments Ventricular rate 63 (test code = 253) Atrial rate (test 63 code = 255) UT interval (test 158 code = 266) QRSD [...] atrial enlargement-Anteroseptal infarct , age undetermined-Abnormal ECG-- [facility] ([facility] RNA [Presence] in Respiratory specimen by CHER with probe [id number] 02:56:55 Test Item Value Reference Range Interpretation Comments SARS-CoV-2 (COVID-19) RNA Not detected [Presence] in Respiratory specimen by CHER with probe detection (test code = 00058-9) Whether patient is employed in a Unknown healthcare setting (test code = 86658-5) Whether the patient has symptoms Unknown related to condition of interest (test code = 19024-3) Whether the patient was Unknown hospitalized for condition of interest (test code = 73144-6) Whether the patient was admitted Unknown to intensive care unit (ICU) for condition of interest (test code = 15075-8) Whether patient resides in a Unknown congregate care setting (test code = 09607-2) status (test code = Unknown 36334-4) Date and time of symptom onset Unknown (test code = 22631-4) [facility] [id number] 18:21:00 Test Item Value Reference Range Interpretation Comments HEPATITIS B SURFACE ANTIGEN (2) Nonreactive Nonreactive (BEAKER) (test code = 2585) ANG, THROMBECTOMY, A-V [id number] 13:26:00Reason for exam:- >nonfunctioning fistulaAnesthesia:->moderateFINAL REPORT DIALYSIS [...] MDReport Verified Date/Time: 02/18/2019 13:26:57 Reading Location: [facility] Radiology Reading Room [id number] 05:52:00 Test Item Value Reference Range Interpretation Comments MAGNESIUM (BEAKER) (test code = 2.0 mg/dL 1.5-3.0 627) BASIC METABOLIC [id number] 05:51:00 Test Item Value Reference Range Interpretation [...] PATIEN TS. CBC W/PLT COUNT & AUTO [id number] 05:37:00 Test Item Value Reference Range Interpretation [...] = 2801) RAD, CHEST, 1 VIEW, NON [id number] 09:21:00Reason for exam:- >pneumoniaShould this be performed at the bedside?->YesFINAL REPORT TECHNIQUE: Frontal view of the chest. INDICATION: pneumonia COMPARISON:Prior day. IMPRESSION:Lines and hardware: Stable.Heart and mediastinum: Stable.Lungs and pleura:Probable scattered atelectasis. No focal airspace consolidation. Central coronary venous congestion.No pleural effusion. No pneumothorax.Soft tissues and bones: No acute abnormality. Signed: Rupinder Campbell MDReport Verified Date/Time: 02/17/2019 09:21:38 Reading Location: [facility] Radiology Reading Room COMPREHENSIVE METABOLIC [id number] 06:48:00 Test Item Value Reference Range Interpretation [...] S NOT APPLICABLE FOR DIALYSIS PATIEN TS. [id number] 06:30:00 Test Item Value Reference Range Interpretation Comments MAGNESIUM (BEAKER) (test code = 2.0 mg/dL 1.5-3.0 627) TROPONIN [id number] 06:27:00 Test Item Value Reference Range Interpretation [...] = 2801) RAD, CHEST, 1 VIEW, NON [id number] 00:02:00Reason for exam:- >PNEUMONIAShould this be performed [...] of mild volume overload. Signed: Rm Shipley Verified Date/Time: 02/17/2019 00:02:21 Reading Location: [address] Consult Reading Room TROPONIN [id number] 19:17:00 Test Item Value Reference Range Interpretation [...] acute neurological disease, and persistent tachyarrhythmia.COMPREHENSIVE METABOLIC [id number] 19:13:00 Test Item Value Reference Range Interpretation [...] S NOT APPLICABLE FOR DIALYSIS PATIEN TS. [id number] 19:10:00 Test Item Value Reference Range Interpretation Comments MAGNESIUM (BEAKER) 2.1 mg/dL 1.5-3.0 Specimen moderately (test code = 627) hemolyzed CBC W/PLT COUNT & AUTO [id number] 18:47:00 Test Item Value Reference Range Interpretation [...] PERCENT (BEAKER) (test code = 2801) BLOOD [id number] 07:18:00 Test Item Value Reference Range Interpretation Comments Culture Observations (test NO GROWTH AFTER 5 code = COB1) DAYS BLOOD [id number] 07:18:00 Test Item Value Reference Range Interpretation Comments Culture Observations (test NO GROWTH AFTER 5 code = COB1) DAYS HEPATITIS B CORE ANTIBODY,[id number] 12:26:00 Test Item Value Reference Range Interpretation Comments HEPATITIS B CORE AB NON-REACTIVE NON-REACTIVE TEST PER FORMED TOTAL (test code = AT:[facility] [id number]) [id number] [place] [address]SAKEZKAI SANTIAGO M.D. XR CHEST 1 [id number] 08:09:24 Location of dictation: Q1Cxwfatsc chest one view.HISTORY: J81.1: CHRONIC PULMONARY EDEMACOMMENT: Compared to one day prior. The heart is enlarged but stable, globularappearance suggests pericardial eff usion. Small effusions are now presentslightly greater on the left. No new consolidation, pneumothorax seen.Impression:1. Stable cardiomegaly with concern for pericardial effusion.2. Interval development of small effusions slightly greater on the left.BASIC METABOLIC [id number] 07:14:00 Test Item Value Reference Range Interpretation [...] code = RBCMOR) NORMAL XR CHEST 1 [id number] 07:33:56STUDY: Chest radiographHISTORY: Fever.COMPARISON: 09/05/17TECHNIQUE: Frontal view of the chest.LOCATION: I28ABPOXOWB:The cardiac silhouette is enlarged, stable. Bilateral patchy perihilaropacities are similar in appearance. There is no definitive pleural effusion ordiscernible pneumothorax. No acute osseous abnormalities are identified.IMPRESSION:Stable appearance of bilateral perihilar patchy opacities and cardiomegaly.BASIC METABOLIC [id number] 04:50:00 Test Item Value Reference Range Interpretation [...] (test code = 09D) 8.6 mg/dL 8.3-9.5 [id number] 04:43:00 Test Item Value Reference Range Interpretation [...] MORPH (test code = RBCMOR) NORMAL CARDIAC [id number] 03:24:00 Test Item Value Reference Range Interpretation Comments TROPONIN I (test code = A84) 0.269 ng/mL 0.000-0.045 H CKMB (test code = A49) 7.8 ng/mL <=3.6 HH CPK (test code = 32A) 414 IU/L 39-308 H BASIC METABOLIC [id number] 03:08:00 Test Item Value Reference Range Interpretation [...] code = RBCMOR) NORMAL HEPATITIS B SURFACE [id number] 21:09:00 Test Item Value Reference Range Interpretation Comments HBSAB (test code = HBSAB) REACTIVE REACTIVE HEPATITIS B SURFACE [id number] 20:37:00 Test Item Value Reference Range Interpretation Comments HBSAG (test code = HBSAG) NON-REACTIVE NON-REACTIVE CARDIAC [id number] 20:23:00 Test Item Value Reference Range Interpretation Comments TROPONIN I (test code = A84) 0.231 ng/mL 0.000-0.045 H CKMB (test code = A49) 11.0 ng/mL <=3.6 HH CPK (test code = 32A) 469 IU/L 39-308 H PRO TIME AND [id number] 11:37:00 Test Item Value Reference Range Interpretation [...] = RBCMOR) NORMAL XR CHEST 1 VIEW [id number] 10:04:30EXAMINATION: XR CHEST 1 VIEW PORTABLE.LOCATION: D4.HISTORY: [...] tiny effusions, unchangedsince 09/01/2017,probably reflect vascular congestion.OCCULT [id number] 11:04:00 Test Item Value Reference Range Interpretation [...] 31A) 27 IU/L <=78 CBC (INCLUDES AUTOMATED DIFFERENTIAL)*[id number] 09:07:00 Test Item Value Reference Range Interpretation [...] NON-REACTIVE TEST PERFOR MED ANTIBODY (IGM) (test AT:[facility] code = 16856099) [id number] [place] [address]HBRNCKAI SANTIAGO M.D. HEPATITIS B SURFACE ANTIBODY 2017-09-02 15:30:00 Test Item Value Reference Range Interpretation Comments HBSAB (test code = HBSAB) REACTIVE REACTIVE XR CHEST 2 VIEW *WW*2017-09-01 23:21:54XR CHEST 2 VIEW *WW*Location:[address] services provided 09/01/2017 11:21 PMIndication:[id number]: Hypertensive disorderComparison:Not currently availableFindings:The heart is enlarged with mild engorgement of the pulmonaryvascularity and prominence of the pulmonary interstitium. Bilateral pleuralfluid collections are noted. No chicho lobar consolidation is seen. No acutebony abnormality.Impression:Findings concerning for cardiogenic pulmonary edema with bilateralpleural fluid collections. HEPATITIS B CORE ANTIBODY,[id number] 12:54:00 Test Item Value Reference Range Interpretation Comments HEPATITIS B CORE AB NON-REACTIVE NON-REACTIVE TEST PER FORMED TOTAL (test code = AT:[facility] [id number]) [id number] [place] [address]RUWRTKAI SANTIAGO M.D. GLUCOMETER GLUCOSE- LAB USE [id number] 06:26:00 Test Item Value Reference Range Interpretation Comments GLUCOMETER (test code = 102 mg/dL 70-100 H Mete r ID: GMG) [id number] tor: [address] NM LUNG (V/Q ) SCAN W [id number] 15:28:50Radionuclide ventilation/perfusion lung scanLocation Code: B0EBVGAGN: Shortness of breathCOMPARISON:None.COMMENT: Routine images of the lungs were obtained after inhalation of 11.1 mCiof Xe133 gas andintravenous injection of 6.0 mCi 99 M technetium MAA.Ventilation is symmetric bilaterally with no focal defect. There is nosignificant trapping.Perfusion images demonstrate normal and symmetric perfusion with no segmentaldefect to suggest a PE.IMPRESSION: Normal VQ scan with a low probability of PE.BASIC METABOLIC [id number] 07:39:00 Test Item Value Reference Range Interpretation [...] code = RBCMOR) NORMAL HEPATITIS B SURFACE [id number] 18:54:00 Test Item Value Reference Range Interpretation Comments HBSAB (test code = HBSAB) REACTIVE REACTIVE HEPATITIS B SURFACE [id number] 18:37:00 Test Item Value Reference Range Interpretation Comments HBSAG (test code = HBSAG) NON-REACTIVE NON-REACTIVE CARDIAC [id number] 18:35:00 Test Item Value Reference Range Interpretation Comments TROPONIN I (test code = A84) 0.115 ng/mL 0.000-0.045 H CKMB (test code = A49) 7.0 ng/mL <=3.6 HH CPK (test code = 32A) 652 IU/L 39-308 H CARDIAC [id number] 14:04:00 Test Item Value Reference Range Interpretation Comments TROPONIN I (test code = A84) 0.120 ng/mL 0.000-0.045 H CKMB (test code = A49) 7.4 ng/mL <=3.6 HH CPK (test code = 32A) 651 IU/L 39-308 H GLUCOMETER GLUCOSE- LAB USE [id number] 11:12:00 Test Item Value Reference Range Interpretation Comments GLUCOMETER (test code = 99 mg/dL 70-100 LIGIA [place] METERMeter ID: GMG) [id number] tor: [address] GLUCOMETER GLUCOSE- LAB USE [id number] 04:22:00 Test Item Value Reference Range Interpretation Comments GLUCOMETER (test code = 116 mg/dL 70-100 H Mete r ID: GMG) [id number] tor: [address] GLUCOMETER GLUCOSE- LAB USE [id number] 03:33:00 Test Item Value Reference Range Interpretation Comments GLUCOMETER (test code = 42 mg/dL 70-100 LL Mete r ID: GMG) [id number] tor: [address] NDJESSIE BRAIN NATRIURETIC [id number] 02:13:00 Test Item Value Reference Range Interpretation Comments proBNP (test code = PBNP) >724705 pg/mL 0-125 H XR ABDOMEN 2 VIEWS W/PA [id number] 02:11:50-CHEST AP VIEW-ABDOMEN AP AND UPRIGHT VIEWS LOCATION: [id number] INDICATION: Vomiting and shortnessof breathCOMPARISON: None FINDINGS: [...] obstruction, CT is recommended for further assessment.CARDIAC [id number] 01:33:00 Test Item Value Reference Range Interpretation Comments TROPONIN I (test code = A84) 0.147 ng/mL 0.000-0.045 H CKMB (test code = A49) 7.0 ng/mL <=3.6 HH CPK (test code = 32A) 688 IU/L 39-308 H COMPREHENSIVE METABOLIC [id number] 01:32:00 Test Item Value Reference Range Interpretation [...] 31A) 121 IU/L <=78 H AMYLASE AND [id number] 01:31:00 Test Item Value Reference Range Interpretation Comments AMYLASE (test code = 10A) 157 U/L 28-100 H LIPASE (test code = 60A) 224 IU/L 73-393 [id number] 01:26:00 Test Item Value Reference Range Interpretation Comments D-DIMER (test code = 687 ng/mL D-DU 0-234 H DDI) D-DIMER COMMENT (test *Level to rule out code = DDCOM) DVT or PE: <235 ng/mL D-DU* PRO TIME AND [id number] 01:26:00 Test Item Value Reference Range Interpretation [...]
--- NOTE | 2022-06-12 15:30 | RAD REPORT ---
EXAM DESCRIPTION: RAD - Chest Single View - 06/12/2022 3:22 pm CLINICAL HISTORY: COUGH Chest pain. COMPARISON: Chest Single View dated 05/31/2022; Chest Single View dated 05/29/2022; Chest Single View da evelina 12/07/2021; Chest Single View dated 08/20/2021 FINDINGS: Portable technique limits examination quality. Mild to moderate bilateral pulmonary opacities may represent pulmonary edema. The heart is moderately enlarged. Left-sided venous catheter has tip in the right atrium. Stent material is noted. Left with hardware.Bilateral pleural effusions small. IMPRESSION: Moderate volume overload or CHF pattern.
[2022-06-12 16:32] LABS: Absolute Lymphocytes (CBC) 3.6 K/uL (0.7-4.9); Hematocrit 25.4 % (39.6-49.0); Lymphocytes % 30.5 % (15.3-44.8); MPV 7.8 fL (7.6-11.3); RBC Red Blood Cell Count 2.82 M/uL (4.33-5.43)
[2022-06-12 16:40] LABS: Potassium 4.7 mmol/L (3.5-5.1)
--- NOTE | 2022-06-12 17:00 | ER ---
Nurse's Notes [facility] Name: Velasquez Cruz Age: 47 yrs Sex: Male : 1975 Arrival Date: 06/12/2022 Time: 13:58 Bed 8 Private MD: Diagnosis: End-stage renal disease;Productive cough;Congestive heart failure Presentation: 06/12 14:00 Chief complaint: EMS states: SENT FROM [facility] FOR VOMIT x1. Coronavirus screen: At bp this time, the client does not indicate any symptoms associated with coronavirus-19. Ebola Screen: No symptoms or risks identified at this time. Initial Sepsis Screen: Does the patient meet any 2 criteria? HR > 90 bpm. No. Patient's initial sepsis screen is negative. Does the patient have a suspected source of infection? No. Patient's initial sepsis screen is negative. Risk Assessment: Do you want to hurt yourself or someone else? Patient reports no desire to harm self or others. Note PT DENIES ACUTE S/S OR MEDICAL NEED. Onset of symptoms was June 12, 2022 at 13:30. 14:00 Method Of Arrival: EMS: [facility] bp 14:00 Acuity: HEAVEN 3 bp Triage Assessment: 14:02 General: Appears in no apparent distress. Behavior is calm, cooperative, appropriate bp for age. Pain: Denies pain. EENT: No deficits noted. Neuro: No deficits noted. Cardiovascular: Rhythm is sinus tachycardia. Respiratory: No deficits noted. GI: Reports vomiting. : No signs and/or symptoms were reported regarding the genitourinary system. Derm: No deficits noted. Musculoskeletal: No deficits noted. Historical: - Allergies: 14:02 No Known Allergies; bp - PMHx: 14:02 Anemia; Anxiety; Bipolar disorder; Cocaine Abuse; COPD; DVT; HD MWF; HEART FAILURE; bp Hypertensive disorder; - Immunization history:: Adult Immunizations up to date. - Social history:: Smoking status: Patient denies any tobacco usage or history of. Screenin:03 [facility] ED Fall Risk Assessment (Adult) History of falling in the last 3 months, bp including since admission No falls in past 3 months (0 pts). Abuse screen: Denies threats or abuse. Denies injuries from another. Nutritional screening: No deficits noted. Tuberculosis screening: No symptoms or risk factors identified. Assessment: 14:03 General: SEE TRIAGE NOTE. bp 15:28 Reassessment: STAFF UNABLE TO OBTAIN PIV, PHLEBOTOMY CONTACTED. bp 16:39 Reassessment: LABS COLLECTED BY PHLEBOTOMY. bp Vital Signs: 14:00 BP 140 / 90; Pulse 104; Resp 16; Temp 98; Pulse Ox 99% ; bp 15:38 BP 134 / 107; Pulse 103; Resp 18; Pulse Ox 98% on R/A; Pain 0/10; sg5 15:38 Pain Scale: Adult sg5 ED Course: 13:58 Patient arrived in ED. bp 14:02 Triage completed. bp 14:02 Arm band placed on. bp 14:03 Patient has correct armband on for positive identification. Bed in low position. Call bp light in reach. Side rails up X2. 14:04 Nathen Page, RN is Primary Nurse. bp 14:26 Yehuda Lugo PA is PHCP. [facility] 14:26 Jorje March MD is Attending Physician. [facility] 15:02 Missed attempt(s): 22 gauge in left in right hand. sg5 15:24 Chest Single View XRAY In Process Unspecified. EDMS Administered Medications: No medications were administered Medication: 14:03 VIS not applicable for this client. bp Outcome: 16:59 Discharge ordered by . faith Signatures: Dispatcher [employer] EDMS Yehuda Lugo PA PA jmm Peltier, Brian, RN RN Tamika Curry RN RN sg5
--- NOTE | 2022-06-12 17:00 | EDPHYS ---
Physician Documentation [facility] Name: Velasquez Cruz Age: 47 yrs Sex: Male : 1975 Arrival Date: 06/12/2022 Time: 13:58 Bed 8 Private MD: ED Physician Jorje March HPI: 06/12 14:29 This 47 yrs old Black Male presents to ER via EMS with complaints of Vomiting. [facility] 14:29 Is a 47-year-old male with history of anemia, end-stage renal disease the presents [facility] emerged department with no complaints. Patient was sent from dialysis after coughing up some what he described as black stuff. Patient states last time he had an episode of this he had a GI bleed. Patient currently denies any vomiting blood or dark stools or red stools. Denies weakness, shortness of breath.. Historical: - Allergies: 14:02 No Known Allergies; bp - PMHx: 14:02 Anemia; Anxiety; Bipolar disorder; Cocaine Abuse; COPD; DVT; HD MWF; HEART FAILURE; bp Hypertensive disorder; - Immunization history:: Adult Immunizations up to date. - Social history:: Smoking status: Patient denies any tobacco usage or history of. ROS: 14:29 Constitutional: Negative for fever, chills, and weight loss, Cardiovascular: Negative [facility] for chest pain, palpitations, and edema, Respiratory: Negative for shortness of breath, cough, wheezing, and pleuritic chest pain. 14:29 All other systems are negative. Exam: 14:29 Constitutional: This is a well developed, well nourished patient who is awake, alert, jmm and in no acute distress. Head/Face: atraumatic. Eyes: EOMI, no conjunctival erythema appreciated ENT: Moist Mucus Membranes Neck: Trachea midline, Supple Chest/axilla: Normal chest wall appearance and motion. Cardiovascular: Regular rate and rhythm. No edema appreciated Respiratory: Normal respirations, no respiratory distress appreciated Abdomen/GI: Non distended Back: Normal ROM Skin: General appearance color normal 14:29 Musculoskeletal/extremity: ROM: intact in all extremities. 14:29 Skin: Appearance: Color: normal in color. 14:29 Neuro: Orientation: is normal, Mentation: is normal, Memory: is normal. 14:29 Psych: Behavior/mood is pleasant, cooperative. Vital Signs: 14:00 BP 140 / 90; Pulse 104; Resp 16; Temp 98; Pulse Ox 99% ; bp 15:38 BP 134 / 107; Pulse 103; Resp 18; Pulse Ox 98% on R/A; Pain 0/10; sg5 15:38 Pain Scale: Adult sg5 MDM: 14:29 Patient medically screened. [facility] 16:56 Differential diagnosis: viral gastroenteritis, GI bleed, hemoptysis, pneumonia. Data [facility] reviewed: vital signs, nurses notes, lab test result(s), radiologic studies, plain films. Independent interpretation of the following test(s) in the Emergency Department X-Ray: My interpretation is CHF. Counseling: I had a detailed discussion with the patient and/or guardian regarding: the historical points, exam findings, and any diagnostic results supporting the discharge/admit diagnosis, lab results, radiology results, the need for outpatient follow up, to return to the emergency department if symptoms worsen or persist or if there are any questions or concerns that arise at home. Refusal of service: The patient/guardian displays adequate decision making capability and despite a detailed discussion of alternatives, benefits, risks, and consequences refuses: Admission to the hospital for further work-up and treatment. ED course: Previous CBC was reviewed. 3 points higher than previous. Patient denies weakness, shortness of breath. Patient is normotensive. Advised to return to dialysis tomorrow to complete.. 06/12 14:47 Order name: Chest Single View XRAY; Complete Time: 15:31 [facility] 06/12 14:37 Order name: CBC with Diff; Complete Time: 16:48 [facility] 06/12 14:37 Order name: BMP; Complete Time: 16:48 [facility] Administered Medications: No medications were administered Disposition Summary: 06/12/22 16:59 Discharge Ordered Location: Home [facility] Condition: Stable [facility] Diagnosis - End-stage renal disease m - Productive cough m - Congestive heart failure [facility] Followup: [facility] - With: Private Physician - When: Tomorrow - Reason: Recheck today's complaints, Continuance of care, Re-evaluation by your physician Discharge Instructions: - Discharge Summary Sheet [facility] - Cough, Adult [facility] Forms: - Medication Reconciliation Form [facility] - Thank You Letter [facility] - Antibiotic Education jmm - Prescription Opioid Use [facility] Signatures: Dispatcher [employer] EDMS Mickail, Yehuda, PA PA jmm Nathen Page, RN RN bp
[2022-06-12 17:26] LABS: Anisocytosis 1+; Blood Morphology Comment NOTED (NOT SEEN); Platelet Estimate INCR; Platelets, Giant PRESENT
[2022-06-13 02:33] VITALS: TEMP 98
[2022-06-13 02:35] VITALS: BP 157/78; O2SAT 100
== END 2022-06-12 19:17 | disposition home or self-care (01) ==
LOC: ER 13:42
DX: R05.9 Cough, unspecified (principal); I13.2 Hypertensive heart and chronic kidney disease with heart failure and with stage 5 chronic kidney disease, or end stage renal disease; N18.6 End stage renal disease; I50.9 Heart failure, unspecified; Z99.2 Dependence on renal dialysis; J44.9 Chronic obstructive pulmonary disease, unspecified; F31.9 Bipolar disorder, unspecified
CPT/HCPCS: 36415; 71045; 80048; 85025

== ENCOUNTER 2022-12-29 20:58 | Inpatient (IN) | payer OTHER ==
--- OUTSIDE RECORDS SUMMARY | 2022-12-29 21:43 | XMS REPORT | Continuity of Care Document ---
:1975 Author Organization [facility] t Address [address] [facility]. [address] [place] [address] Care Team Providers Name Role Phone Glenny Stearns MD Primary Care Physician ENRIQUE THOMPSON Attending Clinician Unavailable _[facility]_Vito_J Attending Clinician Unavailable JENNA PORTILLO Attending Clinician Unavailable Doctor Unassigned, Surprise Attending Clinician Unavailable Nany BAKER, Ashleigh Nicole Attending Clinician SERVANDO MACIAS Attending Clinician Unavailable Katrin Nicole DO Attending Clinician Chucho Goldman MD Attending Clinician Tammie Obando MD Attending Clinician Todd ELLIOTT, Cam Jean Attending Clinician Servando Macias MD Attending Clinician LEROY MURRAY Attending Clinician Unavailable Terri ELLIOTT, Leroy Attending Clinician Samara ELLIOTT, Angie Attending Clinician Crescencio ELLIOTT, Brenna Attending Clinician Stanley HUFFMAN, Lana Attending Clinician JEAN-CLAUDE COHEN Attending Clinician Unavailable Morgan SPEARS, Ld Smith Attending Clinician Ramsey ELLIOTT, Natalie Johnston Attending Clinician Joe ELLIOTT, Jovani Bautista Attending Clinician Noel ELLIOTT, Jean-Claude Attending Clinician [facility], Care Transition Attending Clinician Unavailable RESHMA, SENDIL K.H. Attending Clinician Unavailable COLLEEN VIZCARRA Attending Clinician Unavailable Conrad GOTTLIEB-C, Aubree Beckett Attending Clinician [phone] Abbi ELLIOTT, Bunny Attending Clinician Reshma ELLIOTT, Sendil K.H. Attending Clinician Phong BAKER, Emily Attending Clinician Unavailable Ko ELLIOTT, Jorje Vasquez Attending Clinician Medardo ELLIOTT, Alma Luke Attending Clinician Alex ELLIOTT, Rakel Mcguire Attending Clinician Evans ELLIOTT, Nakul Pedro Attending Clinician [phone] Yaniv ELLIOTT, Virgilio Hill Attending Clinician Dallas Kowalski CRNA Attending Clinician [phone] Mara Pdaron Attending Clinician [phone] Robert Mccarthy Attending Clinician [phone] BOB Attending Clinician Unavailable Loranejune Attending Clinician [phone] GC_BA[facility]_Fabio_G Attending Clinician Unavailable GLENNY STEARNS Attending Clinician Unavailable NALINI, DR ERAZO Attending Clinician Unavailable DR GLENNY STEARNS Attending Clinician Unavailable DR ELAINE MCWILLIAMS Attending Clinician Unavailable _[facility]_Todd_J Admitting Clinician Unavailable CAM BENAVIDES Admitting Clinician Unavailable Todd ELLIOTT, Cam Jean Admitting Clinician LEROY MURRAY Admitting Clinician Unavailable Leroy Murray MD Admitting Clinician JEAN-CLAUDE COHEN Admitting Clinician Unavailable Jean-Claude Cohen MD Admitting Clinician RAKEL JOHNSON Admitting Clinician Unavailable MD ALMA WHITMAN Admitting Clinician Unavailable BOB Admitting Clinician Unavailable _[facility]_Spangler_G Admitting Clinician Unavailable GLENNY STEARNS Admitting Clinician Unavailable DR KACEY GAYLE Admitting Clinician Unavailable DR GLENNY STEARNS Admitting Clinician Unavailable DR ELAINE MCWILLIAMS Admitting Clinician Unavailable Payers Payer Name Policy Type Policy Number Effective Date Expiration Date S krzysztofce [facility] [id number] 2021 ADVANTAGE PLAN 00:00:00 [facility] [id number] 2019 COMMUNITY CARE [place] - 00:00:00 [facility] [id number] 2021 COMMUNITY CARE - 00:00:00 ATKA PLUS - SHELTER CARE (MEDICAID HMO) [facility] STAR [id number] 2022 00:00:00 Problems Condition Condition Condition Status Onset Resolution Last Treating Co mments Source Name Details Category Date Date Treatment Clinician Date Anemia due Anemia Due Problem Active [facility] to chronic to Chronic 06-30 Me dical blood loss Blood Loss 00:00: 00 Anemia Anemia Problem Active [facility] 00:00: 00 Hemothorax Hemothorax Problem Active [facility] 06-30 Medical 00:00: 00 Atelectasi Atelectasi Problem Active [facility] s s 06-30 Medical 00:00: 00 Gastro-eso Gastro-eso Problem Active [facility] phageal phageal 06-30 Medical reflux Reflux 00:00: disease Disease 00 with with esophagiti Esophagiti s s Hiatal Hiatal Problem Active [facility] hernia Hernia 06-30 Medical 00:00: 00 Anticoagul Anticoagul Problem Active [facility] ation ation 4-02 Medical contraindi Contraindi 00:00: cated cated 00 Chest wall Chest Wall Problem Active [facility] pain Pain 4-02 Medical 00:00: 00 Opioid Opioid Problem Active [facility] dependence Dependence 4-02 Me dical 00:00: 00 Dry skin Dry Skin Problem Active [facility] a dermatitis Dermatitis 4-02 Me dical 00:00: 00 Keratosis Keratosis Problem Active [place] via 4-02 Medical 00:00: 00 Hematemesi Hematemesi Disease Active U nivers s, s, 3-23 ity of unspecifie unspecifie [place] d whether d whether 00 Medi ellyn nausea nausea Branch present present GIB GIB Disease Active Univers (gastroint (gastroint 3-07 it y of estinal estinal 00:00: [place] bleeding) bleeding) 00 Medi ellyn Branch Anxiety Anxiety Problem Active [facility] 3-02 Medical 00:00: 00 Hemothorax Hemothorax Disease Active U nivers on right on right 2-20 ity of 00:00: [place] 00 Medical Branch Lung Lung Disease Recurre Univers entrapment entrapment nce 2-20 it y of 00:00: [place] 00 Medical Branch History of History of Problem Active [facility] repair of Repair of 2-15 Medi ellyn thoracic Thoracic 00:00: aortic Aortic 00 aneurysm Aneurysm ESRD (end ESRD (end Disease Active Uni vers stage stage 2-09 ity of renal renal 00:00: [place] disease) disease) 00 Medica l Branch Hyperkalem Hyperkalem Disease Active U reeers ia ia 2-09 ity of 00:00: [place] 00 Medical Branch Bipolar I Bipolar I Problem Active [place] via disorder Disorder 1-15 Medica l 00:00: 00 Insomnia Insomnia Problem Active 2021-03 [facility] a 2-22 Medical 00:00: 00 Lives in a Lives in a Problem Active 2021-03 [facility] nursing Nursing 2-13 Medical home Home 00:00: 00 Nicotine Nicotine Problem Active 2021-03 [...] lung e Lung 00:00: disease Disease 00 Chronic Chronic Problem Active [facility] pain Pain [...] 00 l AV fistula AV fistula Disease Recurre 2018-[address] [facility] occlusion occlusion nce 1-19 [facility] 00:00: Medical 00 Center AV fistula AV fistula Disease Active M [facility]i occlusion occlusion 12-11 [facility] 00[facility]osp[facility] 00 l Pulmonary Pulmonary Disease Active Uni vers edema edema 1-21 ity of 00:00: [place] 00 [facility] Obesity Obesity Disease Active Univers (BMI (BMI 1-21 ity of 30-39.9) 30-39.9) 00:00: [place] 00 [facility] Respirator Respirator Disease Active U nivers [...] Pain of Disease Active Univers right right 1 ity of upper upper 00:00: [place] extremity extremity 00 [facility] ellyn Branch Swelling Swelling Disease Active Unive rs of right of right 102 ity of upper upper 00:00: [place] extremity extremity 00 [facility] ellyn Branch 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 Medical Group Allergies, Adverse Reactions, Alerts Allergy Allergy Status Severity Reaction(s) Onset Inactive Treating Comm ents Source Name Type Date Date Clinician NIFEDIPI Allergy Active Low Anxiety [facility] NIFEDIPI DRUG Active Low Anxiety Univers NE INGREDI 3 ity of 00:00: [place] 00 [facility] Nifedipi Drug Active Anxiety Hot [facility] Allergy 3-03 flashes [facility] Center Nifedipi Allergy Active [facility] ne to 05-31 Medical substanc 00:00: e 00 NO KNOWN Drug Active Univers ALLERGIE Class ity of S [facility] Family History Family Member Diagnosis Comments Start Date Stop Date Source Natural father Heart [facility] Natural father Hypertension [facility] Natural father Unremarkable [facility] Natural mother Other - see comments [facility] Other Other - see comments Univ ersity of [facility] Natural sister Unremarkable [facility] Social History Social Habit Start Date Stop Date Quantity Comments Source Gender identity [facility] History SDOH Social Unive rsity of Connections Get [place] [facility] ical Together Branch History SDOH Social Unive rsity of Connections [facility] [place] [facility] History SDOH Social Unive rsity of Connections [place] [facility] Membership Branch History SDOH Social Unive rsity of Connections [place] [facility] Meetings Branch History of tobacco Passive smoker Un iversity of use [facility] Sexual orientation Method ist Hospital History SDOH Social 2022-06-21 2022-06-21 5 Unive rsity of Connections Phone 00:00:00 00:00:00 [place] M edical Branch History SDOH Social 2022-06-21 2022-06-21 5 Unive rsity of Connections Living 00:00:00 00:00:00 [place] [facility] History SDOH 2022-06-21 2022-06-21 2 University o f Transport Med 00:00:00 00:00:00 [place] Medic al Branch History SDOH 2022-06-21 2022-06-21 2 University o f Transport Non-Med 00:00:00 00:00:00 [place] M edical Branch Exposure to 2022-06-10 2022-06-20 Not sure University of SARS-CoV-2 (event) 00:00:00 17:59:00 [place] [facility] History of Social 2022-06-05 2022-06-[address] function 00:00:00 00:00:00 Hospital History SDOH 2022-06-04 2022-06-04 0 University o f Physical Activity 00:00:00 00:00:00 [place] M edical DPW Branch History SDOH 2022-06-04 [...] ity of Scarcity 00:00:00 00:00:00 [place] [facility] [place] Tobacco use and 2022-06-04 2022-06-04 Former smokeless Uni versity of exposure 00:00:00 00:00:00 tobacco user [place] Medica l Branch Education 2022-06-04 2022-06-04 14 University of 00:00:00 00:00:00 [facility] Tobacco Comment 2022-06-04 2022-06-04 8 cigarettes/day Uni versity of 00:00:00 00:00:00 for 30 years [place] Medica l Branch History SDOH 2022-05-10 2022-05-10 1 University o f Alcohol Frequency 00:00:00 00:00:00 [facility] edical Branch History [facility] 2022-05-10 2022-05-10 0 University o f Alcohol Std Drinks 00:00:00 00:00:00 [place] [facility] History SDOH 2022-05-10 2022-05-10 1 Mal[place] o f Alcohol Binge 00:00:00 00:00:00 [facility] al Branch Alcohol intake 2019-02-16 2019-02-16 [facility] (finding) Cigarettes smoked 2015-09-09 2015-09-[address] [facility] current (pack per 00:00:00 00:00:00 Medical Center day) - Reported Cigarette 2015-09-09 2015-09-[address] [facility] pack-years 00:00:00 00:00:00 [facility] Sex Assigned At [address] [facility] kes 00:00:00 00:00:00 [facility] Smoking Status Start Date Stop Date Source Heavy Tobacco Smoker Jimmy ragland Smokes tobacco daily 2022-06-04 00:00:00 [facility] ity of [facility] Medications Ordered Filled Start Stop Current Ordering Indication Dosage Frequency Signature Comments Components Source Medication Medication Date Date Medication? Clinician (SIG) Name Name multivitami Yes 1{capsu Take 1 U nivers n capsule 3-27 le} capsule by ity of 10:59: mouth [place] 46 daily. Medical Branch multivitami Yes 1{capsu Take 1 U nivers n capsule 3-27 le} capsule by ity of 10:59: mouth [place] 46 daily. Medical Branch multivitami 3-0 Yes 1{capsu Take 1 U nivers n capsule 3-27 le} capsule by ity of 10:59: mouth [place] 46 daily. Medical Branch multivitami 3-0 Yes 1{capsu Take 1 U nivers n capsule 3-27 le} capsule by ity of 10:59: mouth [place] 46 daily. Medical Branch multivitami 3-0 Yes 1{capsu Take 1 U nivers n capsule 3-27 le} capsule by ity of 10:59: mouth [place] 46 daily. Medical Branch multivitami 3-0 Yes 1{capsu Take 1 U nivers n capsule 3-27 le} capsule by ity of 10:59: mouth [place] 46 daily. Medical Branch sucralfate 2023-0 Yes 1000mg Take 10 mL Univers 100 mg/mL 3-27 by mouth ity of suspension 00:00: in the [place] morning Medical and 10 mL Branch at noon and 10 mL in the evening. Take before meals. sucralfate 2023-0 Yes 1000mg Take 10 mL Univers 100 mg/mL 3-27 by mouth ity of suspension 00:00: in the [place] morning Medical and 10 mL Branch at noon and 10 mL in the evening. Take before meals. sucralfate 2023-0 Yes 1000mg Take 10 mL Univers 100 mg/mL 3-27 by mouth ity of suspension 00:00: in the [place] morning Medical and 10 mL Branch at noon and 10 mL in the evening. Take before meals. sucralfate 2023-0 Yes 1000mg Take 10 mL Univers 100 mg/mL 3-27 by mouth ity of suspension 00:00: in the [place] morning Medical and 10 mL Branch at noon and 10 mL in the evening. Take before meals. sucralfate 2023-0 Yes 1000mg Take 10 mL Univers 100 mg/mL 3-27 by mouth ity of suspension 00:00: in the [place] morning Medical and 10 mL Branch at noon and 10 mL in the evening. Take before meals. sucralfate 2023-0 Yes 1000mg Take 10 mL Univers 100 mg/mL 3-27 by mouth ity of suspension 00:00: in the [place] [address] morning Medical and 10 mL Branch at noon and 10 mL in the evening. Take before meals. vitamin b Yes 1{tbl} 1 tablet, U nivers complex-vit 06-23 Oral, ity of 14:00: DAILY, [place] c-folic 00 First dose Medica l acid on [place] Branch (NEPHRO-VIT 06/23/22 at E) 0.8 mg 0900, tablet 1 Until tablet Discontinu ed, Routine polyethylen Yes 17g 17 g, Unive rs e glycol 06-23 Oral, ity of 3350 powder 14:00: DAILY, [place] 17 g 00 First dose Medical on [place] Branch 06/23/22 at 0900, Until Discontinu ed, Routine piperacilli 2022- No 3.375g 3.375 g, Univers n-tazobacta 06-23 IV ity of m (ZOSYN) 06:00: 05:59 [place]back, [place] 3.375 g in 00 :00 Q12H ABX, Medi ellyn NaCl 0.9% 6 doses, Branch (NS) 100 mL First dose MINI-BAG on Fri06/23/22 at 0100, Last dose on Fri06/25/22 at 1300, Administer over 4 Hours, 100 mL
Reas on for Anti-Infec tive: Documented Infection& lt;br>Docu mented Infection Site: Blood
D uration of Therapy: Other (see Comments) pantoprazol Yes 40mg 40 mg, Univ ers e 06-23 Slow IV ity of (PROTONIX) 03:00: Push, [place] injection 00 Q12H, Medical 40 mg First dose Branch on 06/22/22 at 2200, Until Discontinu ed vancomycin 2022- No 15mg/kg 1,250 mg Univers 1,250 mg in 06-22 (rounded ity of NaCl 0.9% 18:30: 12:38 from 1,152 [place] (NS) 250 mL 00 :49 mg = 15 Medic al VIAL-MATE mg/kg Branch IV ?76.8 kg), piggyback IV Piggyback, Q48H ABX, 2 doses, First dose on Fri06/22/22 at 1330, Last dose on Fri06/24/22 at 1330, Administer over 90 Minutes, 250 mL
Reas on for Anti-Infec tive: Empiric Therapy for Suspected Infection< br>Empiric Therapy Site: Blood
D uration of therapy: 72 hours piperacilli 2022- No 3.375g 3.375 g, Univers n-tazobacta 06-22 IV ity of m (ZOSYN) 18:15: 20:38 [place]back, [place] 3.375 g in 00 :07 ONCE, 1 Medica l NaCl 0.9% dose, On Branch (NS) 100 mL Sat MINI-BAG 06/22/22 at 1315, Administer over 30 Minutes, 100 mL
Reas on for Anti-Infec tive: Documented Infection< br>Documen evelina Infection Site: Blood<br&g t;Duration of Therapy: Other (see Comments) NaCl 0.9% 2022- No 5mL 5 mL, Slow U nivers (NS) 06-22 IV Push, ity of injection 5 13:30: 13:30 ONCE, 1 [place] mL 00 :00 dose, On Medical Sat Branch 06/22/22 at 0830, Routine heparin Yes 2000U PRN - SEE Univ ers 1,000 06-22 INSTRUCTIO ity of unit/mL 13:24: NS, [place] injection 14 Starting Medica l 2,000 Units on Sat Branch 06/22/22 at 0824, Until Discontinu ed, Routine
For Priming of Ports:&nbs p; &n bsp; After initial saline flush, prime each port with heparin according to the priming volume listed on each catheter port for catheter lock.
acetaminoph Yes 650mg 650 mg, Un irma en 06-22 Oral, ity of (TYLENOL) 05:21: Q6HP, [place] tablet 650 43 Starting Medic al mg on Sat Branch 06/22/22 at 0021, Until Discontinu ed, Routine, Pain (scale 1-3), Temp > 38 C, Pain (scale 4-6) atorvastati Yes 40mg 40 mg, Univ ers n (LIPITOR) 06-22 Enteral, ity of tablet 40 02:00: QHS, First [place] mg 00 dose on Medical Fri Branch 06/21/22 at 2100, Until Discontinu ed, Routine carvediloL Yes 25mg 25 mg, Unive rs (COREG) 3-25 Oral, BID ity of tablet 25 00:00: MEALS, [place] mg 00 First dose Medical on Fri Branch 06/21/22 at 1900, Until Discontinu ed, Routine amLODIPine Yes 10mg 10 mg, Unive rs (NORVASC) 3-25 Oral, ity of tablet 10 00:00: DAILY, [place] mg 00 First dose Medical on Fri Branch 06/21/22 at 1900, Until Discontinu ed, Routine sucralfate Yes 1g 1,000 mg Uni vers (CARAFATE) 06-21 (1 g), ity of 100 mg/mL 21:30: Oral, [place] suspension 00 TIDAC, Medical 1,000 mg First dose Branc h on Fri06/21/22 at 1630, Until Discontinu ed, Routine epoetin 2022- No 8000U 8,000 Univers himanshu-epbx 06-21 Units, ity of (RETACRIT) 19:15: 20:56 Intravenou [place] injection 00 :00 s, Medical 8,000 Units DIALYSIS Bran ch ONCE - CARON DSU, 1 dose, On Fri06/21/22 at 1415, Routine
member of technical staff approving Restricted medication : DEVORA NAVA NaCl 0.9% 2022- No 5mL 5 mL, Slow U nivmarysol (NS) 06-21 IV Push, ity of injection 5 19:15: 20:57 ONCE, 1 [place] mL 00 :00 dose, On Medical Fri Branch 06/21/22 at 1415, Routine heparin Yes 2000U PRN - SEE Univ ers 1,000 06-21 INSTRUCTIO ity of unit/mL 19:02: NS, [place] injection 43 Starting Medica l 2,000 Units on Fri Branch 06/21/22 at 1402, Until Discontinu ed, Routine
For Priming of Ports:&nbs p; &n bsp; After initial saline flush, prime each port with heparin according to the priming volume listed on each catheter port for catheter lock.
sevelamer 2022-0 Yes 1600mg 1,600 mg, U nivers (RENVELA) 06-21 Oral, TID ity o f tablet 13:00: MEALS, [place] 1,600 mg 00 First dose Medic al on Fri Branch 06/21/22 at 0800, Until Discontinu ed pantoprazol 2022-0 2023- No 8mg/h 8 mg/hr U nivers e 06-21 (50 ity of (PROTONIX) 11:45: 02:51 mL/hr), IV [place] 80 mg in 00 :31 Infusion, Medica l NaCl CONTINUOUS Branch 0.9%(NS) , Starting 500 mL IV on Fri infusion 06/21/22 at (CNR) 0645 pantoprazol 2022-0 2023- No 8mg/h 8 mg/hr U nivers e 06-21 (50 ity of (PROTONIX) 01:45: 11:39 mL/hr), IV [place] 80 mg in 00 :05 Infusion, Medica l NaCl 0.9% CONTINUOUS Bran ch (NS) 500 mL , Starting infusion on Tess 06/20/22 at 2045 pantoprazol 2022-0 2023- No 80mg 80 mg, IV Univers e 06-21 Push, ity of (PROTONIX) 01:30: 01:32 ONCE, 1 [place] 80 mg in 00 :00 dose, On Medical NaCl 0.9% [place] Branch (NS) 20 mL 06/20/22 at syringe 2030, Administer over 2 Minutes, 20 mL multivitami 2022-0 Yes 1{capsu Take 1 U nivers n capsule 3-10 le} capsule by ity of 00:05: mouth [place] 33 daily. [facility] multivitami 2022-0 Yes 1{capsu Take 1 U nivers n capsule 3-10 le} capsule by ity of 00:05: mouth [place] 33 daily. [facility] omeprazole 0 Yes 40mg 40 mg, Unive rs (PRILOSEC) 06-06 Oral, BID, ity of capsule 40 14:00: First dose [place] mg 00 on [place] Medical 06/06/22 at Branch 0800, Until Discontinu ed, Routine omeprazole 2023-0 Yes 40mg 40 mg, Unive rs (PRILOSEC) 3-09 Oral, BID, ity of capsule 40 14:00: First dose [place] mg 00 on [facility] Medical 06/06/22 at Branch 0800, Until Discontinu ed, Routine magnesium 2023-0 2023- No 4g 4 g, IV Univ ers sulfate in 06-06 03-09 Piggyback, it y of water 4 13:45: 17:49 at 25 [place] gram/50 mL 00 :00 mL/hr Medical (8 %) IV Administer Branc h Piggyback 4 over 120 g Minutes, ONCE, 1 dose, On [facility] 06/06/22 at 0745, Routine gabapentin 2023-0 Yes [id number] 200mg Take 2 Univers 100 mg 3-09 capsules ity of capsule 00:00: by mouth [place] 00 in the [facility] and 2 capsules at noon and 2 capsules in the evening. omeprazole 2023-0 Yes 40mg Take 1 Unive rs 40 mg 3-09 capsule by ity of capsule 00:00: mouth in [address] and 1 capsule in the evening. gabapentin 2023-0 Yes [id number] 200mg Take 2 Univers 100 mg 3-09 capsules ity of capsule 00:00: by mouth [place] 00 in the [facility] and 2 capsules at noon and 2 capsules in the evening. omeprazole 2023-0 Yes 40mg Take 1 Unive rs 40 mg 3-09 capsule by ity of capsule 00:00: mouth in [address] and 1 capsule in the evening. gabapentin 2023-0 Yes [id number] 200mg Take 2 Univers 100 mg 3-09 capsules ity of capsule 00:00: by mouth [place] 00 in the [facility] and 2 capsules at noon and 2 capsules in the evening. omeprazole 2023-0 Yes 40mg Take 1 Unive rs 40 mg 3-09 capsule by ity of capsule 00:00: mouth in [address] and 1 capsule in the evening. gabapentin 2023-0 Yes [id number] 200mg Take 2 Univers 100 mg 3-09 capsules ity of capsule 00:00: by mouth [place] 00 in the [facility] and 2 capsules at noon and 2 capsules in the evening. omeprazole 2023-0 Yes 40mg Take 1 Unive rs 40 mg 3-09 capsule by ity of capsule 00:00: mouth in [place] [address] the Medical morning Branch and 1 capsule in the evening. gabapentin 2023-0 Yes [id number] 200mg Take 2 Univers 100 mg 3-09 capsules ity of capsule 00:00: by mouth [place] 00 in the Medical morning Branch and 2 capsules at noon and 2 capsules in the evening. omeprazole 2023-0 Yes 40mg Take 1 Unive rs 40 mg 3-09 capsule by ity of capsule 00:00: mouth in [place] [address] the [facility] morning [place] and 1 capsule in the evening. gabapentin 2023-0 Yes [id number] 200mg Take 2 Univers 100 mg 3-09 capsules ity of capsule 00:00: by mouth [place] 00 in the Medical morning Branch and 2 capsules at noon and 2 capsules in the evening. omeprazole 2023-0 Yes 40mg Take 1 Unive rs 40 mg 3-09 capsule by ity of capsule 00:00: mouth in [place] [address] the [facility] morning [place] and 1 capsule in the evening. gabapentin 2023-0 Yes [id number] 200mg Take 2 Univers 100 mg 3-09 capsules ity of capsule 00:00: by mouth [place] 00 in the Medical morning Branch and 2 capsules at noon and 2 capsules in the evening. omeprazole 2023-0 Yes 40mg Take 1 Unive rs 40 mg 3-09 capsule by ity of capsule 00:00: mouth in [place] [address] the [facility] morning [place] and 1 capsule in the evening. gabapentin 2023-0 Yes [id number] 200mg Take 2 Univers 100 mg 3-09 capsules ity of capsule 00:00: by mouth [place] 00 in the Medical morning [place] and 2 capsules at noon and 2 capsules in the evening. omeprazole 2023-0 Yes 40mg Take 1 Unive rs 40 mg 3-09 capsule by ity of capsule 00:00: mouth in [place] [address] the [facility] morning [place] and 1 capsule in the evening. epoetin 2023-0 2022- No 8000U 8,000 Univers himanshu-epbx 3-08 03-08 Units, ity of (RETACRIT) 14:15: 17:09 Intravenou [place] injection 00 :00 s, Medical 8,000 Units DIALYSIS Bran ch ONCE - CARON DSU, 1 dose, On Fri06/05/22 at 0815, Routine
member of technical staff approving Restricted medication : DEVORA NAVA heparin 2023-0 Yes 2000U PRN - SEE Univ ers 1,000 3-08 INSTRUCTIO ity of unit/mL ( 14:09: NS, [place] mL) - 40 Starting Medical dialysis on Fri [place] catheter 06/05/22 at care 0809, Until Discontinu ed, Routine
For Priming of Ports:&nbs p; &n bsp; After initial saline flush, prime each port with heparin according to the priming volume listed on each catheter port for catheter lock.
heparin Yes 2000U PRN - SEE Univ ers 1,000 3-08 INSTRUCTIO ity of unit/mL ( 14:09: NS, [place] mL) - 40 Starting Medical dialysis on Fri [place] catheter 06/05/22 at care 0809, Until Discontinu ed, Routine
For Priming of Ports:&nbs p; &n bsp; After initial saline flush, prime each port with heparin according to the priming volume listed on each catheter port for catheter lock.
carvediloL 0 Yes 25mg 25 mg, Unive rs (COREG) 3-08 Oral, BID ity of tablet 25 14:00: MEALS, [place] mg 00 First dose Medical on Fri Branch 06/05/22 at 0800, Until Discontinu ed, Routine carvediloL 0 Yes 25mg 25 mg, Unive rs (COREG) 3-08 Oral, BID ity of tablet 25 14:00: MEALS, [place] mg 00 First dose Medical on Fri [place] 06/05/22 at 0800, Until Discontinu ed, Routine hydrOXYzine 2022- No 25mg 25 mg, Uni vers (ATARAX) 3 03-08 Oral, ity of tablet 25 03:15: 02:55 ONCE, 1 [place] mg 00 :00 dose, On Medical 06/04/22 Branch at 2115, Routine atorvastati 0 Yes 40mg 40 mg, Univ ers n (LIPITOR) 3-08 Oral, QHS, it y of tablet 40 03:00: [place] dose [place] mg 00 on Fri Medical 06/04/22 at Branch 2100, Until Discontinu ed, Routine atorvastati 0 Yes 40mg 40 mg, Univ ers n (LIPITOR) 3-08 Oral, QHS, it y of tablet 40 03:00: First dose [place] mg 00 on [facility] 06/04/22 at Branch 2100, Until Discontinu ed, Routine pantoprazol 2023-0 2023- No 40mg 40 mg, Uni vers e 06-05 03-09 Slow IV ity of (PROTONIX) 02:00: 06:25 Push, [place] injection 00 :41 Q12H, Medical 40 mg First dose Branch on [facility] 06/04/22 at 2000, Until Discontinu ed sevelamer 2023-0 Yes 800mg 800 mg, Univ ers (RENVELA) 3-07 Oral, TID ity o f tablet 800 23:00: MEALS, [place] mg 00 First dose Medical on [facility] 06/04/22 at 1700, Until Discontinu ed, Routine sevelamer 2023-0 Yes 800mg 800 mg, Univ ers (RENVELA) 3-07 Oral, TID ity o f tablet 800 23:00: MEALS, [place] mg 00 First dose Medical on [facility] 06/04/22 at 1700, Until Discontinu ed, Routine isosorbide 2023-0 Yes 30mg 30 mg, Unive rs mononitrate 3-07 Oral, ity of (IMDUR) 24 15:00: DAILY, [place] hr tablet 00 First dose Medi ellyn 30 mg on [facility] 06/04/22 at 0900, Until Discontinu ed, Routine isosorbide 2023-0 Yes 30mg 30 mg, Unive rs mononitrate 3-07 Oral, ity of (IMDUR) 24 15:00: DAILY, [place] hr tablet 00 First dose Medi ellyn 30 mg on [facility] 06/04/22 at 0900, Until Discontinu ed, [...] 0745, Until Discontinu ed, Routine morpHINE (2 2022- No 2mg 2 mg, Slow Univers mg/mL) 06-04-07 IV Push, ity of injection 2 11:00: 10:18 ONCE, 1 [place] mg 00 :00 dose, On [facility] 06/04/22 Branch at 0500, Routine acetaminoph Yes 650mg 650 mg, Un irma en - Oral, ity of (TYLENOL) 07:57: Q6HPRN, [place] tablet 650 43 Starting Medic al mg on [facility] 06/04/22 at 0157, Until Discontinu ed, Routine, Pain (scale 1-3) acetaminoph Yes 650mg 650 mg, Un irma en - Oral, ity of (TYLENOL) 07:57: Q6HPRN, [place] tablet 650 43 Starting Medic al mg on [facility] 06/04/22 at 0157, Until Discontinu ed, Routine, [...] [place] 25 daily. Medical Branch acetaminoph 2022- No [id number] 650mg Take 2 Univers en 325 mg 05-28-15 tablets by ity of tablet 00:00: 04:59 mouth [place] 00 :00 every 6 Medical (six) Branch hours for 14 days. polyethylen 2022- No [id number] 17g Take 1 Univers e glycol -25 06-15 Packet by ity o f 3350 17 00:00: 04:59 mouth in [place] gram powder 00 :00 the Medical morning Branch for 14 days. acetaminoph 2022- No [id number] 650mg Take 2 Univers en 325 mg -25 06-15 tablets by ity of tablet 00:00: 04:59 mouth [place] 00 :00 every 6 [facility] (community health) Branch hours for 14 days. polyethylen 2023-0 3- No [id number] 17g Take 1 Univers e glycol -25 06-15 Packet by ity o f 3350 17 00:00: 04:59 mouth in [place] gram powder 00 :00 the [facility] morning Branch for 14 days. acetaminoph 202-0 2023- No [id number] 650mg Take 2 Univers en 325 mg -25 06-15 tablets by ity of tablet 00:00: 04:59 mouth [place] 00 :00 every 6 [facility] (community health) Branch hours for 14 days. polyethylen 2023-0 2023- No [id number] 17g Take 1 Univers e glycol -25 06- Packet by ity o f 3350 17 00:00: 04:59 mouth in [place] gram powder 00 :00 the [facility] morning Branch for 14 days. polyethylen 2023-0 2023- No [id number] 17g Take 1 Univers e glycol -25 06-15 Packet by ity o f 3350 17 00:00: 04:59 mouth in [place] gram powder 00 :00 the [facility] morning Branch for 14 days. polyethylen 2022-0 3- No [id number] 17g Take 1 Univers e glycol -25 06-15 Packet by ity o f 3350 17 00:00: 04:59 mouth in [place] gram powder 00 :00 the [facility] morning Branch for 14 days. acetaminoph 2022-0 3- No [id number] 650mg Take 2 Univers en 325 mg -25 06-09 tablets by ity of tablet 00:00: 00:00 mouth [place] 00 :00 every 6 Medical (community health) Branch hours for 14 days. gabapentin 2023-0 3- No [id number] 200mg Take 2 Univers 100 mg -25 06- capsules ity of capsule 00:00: 00:00 by mouth [place] 00 :00 in the Medical morning Branch and 2 capsules at noon and 2 capsules in the evening. Do all this for 7 days. acetaminoph 2023-0 2023- No [id number] 650mg Take 2 Univers en 325 mg -25 06-09 tablets by ity of tablet 00:00: 00:00 mouth [place] 00 :00 every 6 Medical (six) Branch hours as needed (pain) for up to 7 days. gabapentin 2023-0 2023- No [id number] 200mg Take 2 Univers 100 mg 2-28 03-08 capsules ity of capsule 00:00: 05:59 by mouth [place] 00 :00 in the Medical morning Branch and 2 capsules at noon and 2 capsules in the evening. Do all this for 7 days. acetaminoph 2023-0 3- No [id number] 650mg Take 2 Univers en 325 mg 2-28 03-08 tablets by ity of tablet 00:00: 05:59 mouth [place] 00 :00 every 6 Medical (six) Branch hours as needed (pain) for up to 7 days. gabapentin 2023-0 2023- No [id number] 200mg Take 2 Univers 100 mg 2-28 03-08 capsules ity of capsule 00:00: 05:59 by mouth [place] 00 :00 in the Medical morning Branch and 2 capsules at noon and 2 capsules in the evening. Do all this for 7 days. acetaminoph 2023-0 3- No [id number] 650mg Take 2 Univers en 325 mg 2-28 03-08 tablets by ity of tablet 00:00: 05:59 mouth [place] 00 :00 every 6 Medical (six) Branch hours as needed (pain) for up to 7 days. gabapentin 2023-0 3- No [id number] 200mg Take 2 Univers 100 mg 2-28 03-08 capsules ity of capsule 00:00: 05:59 by mouth [place] 00 :00 in the Medical morning Branch and 2 capsules at noon and 2 capsules in the evening. Do all this for 7 days. acetaminoph 2023-0 3- No [id number] 650mg Take 2 Univers en 325 mg 2-28 03-08 tablets by ity of tablet 00:00: 05:59 mouth [place] 00 :00 every 6 Medical (six) Branch hours as needed (pain) for up to 7 days. heparin 2022-0 Yes 2000U PRN - SEE Univ ers 1,000 2-27 INSTRUCTIO ity of unit/mL (10 20:25: Judy MCNAIR mL) - 35 Starting Medical dialysis on Mon Branch catheter 05/27/22 at care 1425, Until Discontinu [...] ENEMA) 00 :00 dose, On Medical ([facility] ) Enem 225 05/25/22 at mL 2000, Routine heparin 2022- No 2000U 2,000 Univers 1,000 05-25 02-25 Units, ity of unit/mL 23:00: 22:05 Slow IV [place] injection 00 :00 Push, Medical 2,000 Units ONCE, 1 Branc h dose, On [facility] 05/25/22 at 1700, Routine NaCl 0.9% 2022- No 500mL at 999 Univ ers (NS) bolus 05-25- mL/hr, 500 it y of infusion 22:45: 01:33 mL, IV [place] 500 mL 00 :00 Piggyback, Medical ONCE, 1 Branch dose, On [facility] 05/25/22 at 1645, STAT polyethylen Yes 17g 17 g, Unive rs e glycol 2-25 Oral, ity of 3350 powder 22:00: DAILY, [place] 17 g 00 First dose Medical on [facility] 05/25/22 at 1600, Until Discontinu ed, Routine bisacodyL Yes 10mg 10 mg, Univer s (DULCOLAX) 05-25 Rectal, ity of suppository 21:52: QHSPRN, [place] as 10 mg 41 Starting Medical on [facility] 05/25/22 at 1552, Until Discontinu ed, Routine, Constipati on insulin Yes 2U 2 Units, Univer s lispro 2-25 Subcutaneo ity of (human) 14:42: us, PRN - [place] (HumaLOG 01 SEE Medical U-100) INSTRUCTIO Branch injection 2 NS, 1 Units dose, Starting on [facility] 05/25/22 at 0842, Until Discontinu ed, Routine, For blood glucose > 300 mg/dL dextrose Yes 125mL 125 mL, Unive rs 10% (D10W) 2-25 Intravenou ity of bolus 14:42: s, PRN - [place] infusion 01 SEE Medical 125 mL INSTRUCTIO [...] Sprite or cranberry juice.
NaCl 0.9% 2022-0 2022- No 5mL 5 mL, Slow U nivers (NS) 05-25-25 IV Push, ity of injection 5 14:15: 14:15 ONCE, 1 [place] mL 00 :00 dose, On Medical [facility] Branch 05/25/22 at 0815, Routine heparin 2022-0 Yes 2000U PRN - SEE Univ ers 1,000 - INSTRUCTIO ity of unit/mL (10 14:08: NS, [place] mL) - 36 Starting Medical dialysis on [facility] catheter 05/25/22 at care 0808, Until Discontinu ed, Routine
For Priming of Ports:&nbs p; &n bsp; After initial saline flush, prime each port with heparin according to the priming volume listed on each catheter port for catheter lock.
calcium 2022-0 Yes 2g 2 g, IV Univers gluconate 2 05-25 Infusion, ity of g in NaCl 12:41: [...] KIT) 32 Starting Medical injection 1 on [facility] Branch mg 05/25/22 at 0641, Until Discontinu ed, PHIL, Blood Glucose < or = 70 mg/dL and patient is NPO, unable to swallow or has mental changes. dextrose 50 2022-0 Yes 25mL 25 mL, Univ ers % in water 2-25 Slow IV ity of (D50W) 12:41: Push, PRN, [place] injection 32 Starting Medica l 25 mL on [facility] Branch 05/25/22 at 0641, Until Discontinu ed, [...] No 30mL 30 mL, Uni vers (MINERAL 2-24 02-24 Oral, ity of OIL EXTRA 22:45: 23:52 ONCE, 1 [place] HEAV[place] oral 00 :00 dose, On Medi ellyn liquid 30 Fri [facility] 05/24/22 at 1645, Routine metoclopram 2022-0 Yes [...] [place] mg 00 First dose Medical on [facility] 05/23/22 at 0900, Until Discontinu ed, Routine sennosides 2022-0 Yes 8.6mg 8.6 mg, Uni vers (SENOKOT) 05-23 Oral, ity of tablet 8.6 15:00: DAILY, [place] mg 00 First dose Medical on [facility] 05/23/22 at 0900, Until Discontinu ed, Routine sennosides 2022-0 Yes 8.6mg 8.6 mg, Uni vers (SENOKOT) 05-23 Oral, ity of tablet 8.6 15:00: DAILY, [place] mg 00 First dose Medical on [facility] 05/23/22 at 0900, Until Discontinu ed, Routine levalbutero 0 Yes .31mg 0.31 mg, U nivers l (XOPENEX) 05-23 Inhalation it y of nebulizer 14:00: , TID, [place] solution First dose Medic al 0.31 mg on [facility] 05/23/22 at 0800, Until Discontinu ed, Routine levalbutero 2022-0 Yes .31mg 0.31 mg, U nivers l (XOPENEX) 05-23 Inhalation it y of nebulizer 14:00: , TID, [place] solution First dose Medic al 0.31 mg on [facility] 05/23/22 at 0800, Until Discontinu ed, Routine levalbutero 2022-0 Yes .31mg 0.31 mg, U nivers l (XOPENEX) 05-23 Inhalation it y of nebulizer 14:00: , TID, [place] solution First dose Medic al 0.31 mg on [facility] 05/23/22 at 0800, Until Discontinu ed, Routine NaCl 0.9% 2022- No 5mL 5 mL, Slow U nivers (NS) 05-23 IV Push, ity of injection 5 14:00: 14:00 ONCE, 1 [place] mL 00 :00 dose, On Medical [facility] 05/23/22 at 0800, Routine heparin Yes 1999U PRN - SEE [facility] ers 1,000 2- INSTRUCTIO ity of unit/mL [...] 2000U PRN - SEE Univ ers 1,000 2- [...] lock.
heparin Yes 1999U PRN - SEE [facility] ers 1,000 2- INSTRUCTIO ity of unit/mL (10 13:45: NS, [place] mL) - Starting Medical dialysis on [place] Branch catheter 05/23/22 at care 0745, Until Discontinu ed, Routine
For Priming of Ports:&nbs p; &n bsp; After initial saline flush, prime each port with heparin according to the priming volume listed on each catheter port for catheter lock.
morpHINE 30 Yes Patient Uni vers mg/30 mL 2-23 Bolus ity of (fixed 13:15: Dose: 1.5 [place] dose) HEAD GREENSKEEPER 00 mg
Lock Medi ellyn injection out Branch Interval: 6 Minutes
Basal Rate: 0 mg/hr<BR&g t;Four Hour Dose Limit: 32 mg
Intr avenous, 30 mL, CONTINUOUS , Starting on [place] 05/23/22 at 0715, Until Discontinu ed morpHINE 30 2022-0 Yes Patient Uni vers mg/30 mL 2-23 Bolus ity of (fixed 13:15: Dose: 1.5 [place] dose) HEAD GREENSKEEPER 00 mg
Lock Medi ellyn injection out Branch Interval: 6 Minutes
Basal Rate: 0 mg/hr<BR&g t;Four Hour Dose Limit: 32 mg
Intr avenous, 30 mL, CONTINUOUS , Starting on [place] 05/23/22 at 0715, Until Discontinu ed morpHINE 30 0 2022- No Patient Un irma mg/30 mL 05-23 Bolus ity of (fixed 13:15: 13:33 Dose: 1.5 [place] dose) HEAD GREENSKEEPER 00 :11 mg
Lock Medi [place] injection [...] Pain (scale 7-10) [Order 2 End] traMADoL 2023-0 Yes 50mg [Order 1 Unive rs (ULTRAM) 05-23 Start] ity of tablet 50 13:06: Name: [place] mg 19 traMADoL Medical (ULTRAM) [place] tablet 50 mg Signed Summary: 50 mg, Oral, Q6HPRN, Starting on Fri05/23/22 at 0706, Until Discontinu ed, Routine, Pain (scale 4-6) [Order 1 End] [Order 2 Start] Name: traMADoL (ULTRAM) tablet 100 mg Signed Summary: 100 mg, Oral, Q6HPRN, Starting on Fri05/23/22 at 0706, Until Discontinu ed, Routine, Pain (scale 7-10) [Order 2 End] acetaminoph 2022-0 202- No 1000mg 1,000 mg, Univers en ADULT 05-23 IV ity of (OFIRMEV) 04:00: 13:06 Infusion, [place] injection 00 :56 at 400 Medical 1,000 mg mL/hr Branch Administer over 15 Minutes, Q8H, 3 doses, First dose on Fri05/22/22 at 2200, Last dose on Fri05/23/22 at 1400, Routine
Indicatio n: Perioperat vivien Patient gabapentin 2022-0 Yes 200mg 200 mg, Uni vers (NEURONTIN) - Oral, TID, it y of capsule 200 02:00: First dose [place] mg 00 on Fri05/22/22 at [place] 1999, Until Discontinu ed, Routine gabapentin 2023-0 Yes 200mg 200 mg, Uni vers (NEURONTIN) - Oral, TID, it y of capsule 200 02:00: First dose [place] mg 00 on Fri05/22/22 at [place] 2000, Until Discontinu ed, Routine gabapentin 2023-0 Yes 200mg 200 mg, Uni vers (NEURONTIN) 05-23 Oral, TID, it y of capsule 200 02:00: First dose [place] mg 00 on Fri05/22/22 at Branch 2000, Until Discontinu ed, Routine methocarbam 3-0 Yes 500mg 500 mg, Un irma oL 05-22 Oral, QID, ity of (ROBAXIN) 22:00: First dose [place] tablet 500 00 on 05/22/22 at Branch 1600, Until Discontinu ed, Routine methocarbam 2022-0 Yes 500mg 500 mg, Un irma oL 2-22 Oral, QID, ity of (ROBAXIN) 22:00: First dose [place] tablet 500 00 on Fri Medical mg 05/22/22 at Branch 1600, Until Discontinu ed, Routine methocarbam 2022-0 Yes 500mg 500 mg, Un irma oL 2-22 Oral, QID, ity of (ROBAXIN) 22:00: First dose [place] tablet 500 00 on Fri Medical mg 05/22/22 at Branch 1600, Until Discontinu ed, Routine lidocaine 2022-0 2022- No 1{patch 1 Patch, Univers (LIDODERM) 05-22 } Topical, ity of 5 % (700 21:00: 09:28 Administer [place] mg/patch) 00 :00 over 12 Medical patch 1 Hours, [place] Patch ONCE, 1 dose, On Fri05/22/22 at 1500, Routine naloxone 2022-0 Yes .1mg 0.1 mg, Univer s (NARCAN) 2- Slow IV ity of injection 20:00: Push, [place] 0.1 mg 05 [facility] Starting on Fri05/22/22 at 1400, Until Discontinu ed, Routine naloxone 2022-0 Yes .1mg 0.1 mg, Univer s (NARCAN) - Slow IV ity of injection 20:00: Push, [place] 0.1 mg 05 SEEINSTRU Medical [facility] Starting on Fri05/22/22 at 1400, Until Discontinu ed, Routine naloxone 2022-0 Yes .1mg 0.1 mg, Univer s (NARCAN) - Slow IV ity of injection 20:00: Push, [place] 0.1 mg 05 SEEINSTRU Medical [facility] Starting on Fri05/22/22 at 1400, Until Discontinu ed, Routine lactated 2022-0 2022- No 1000mL at 75 Unive rs ringers IV 05-22 02-22 mL/hr, ity of infusion 20:00: 23:02 1,000 mL, [place] 1,000 mL 00 :50 IV Medical Infusion, Branch CONTINUOUS , Starting on Fri05/22/22 at 1400, Until Fri05/22/22 at 1702, Routine, PACU bupivacaine 2022- No PRN, [facility] rs (preserv 05-22 Starting ity of free) 17:16: 19:46 on Fri [place] (SENSORCAIN 00 :18 05/22/[address] [facility]) 0.25 1116, Branch % (2.5 Intra-op mg/mL) 20 mL, bupivacaine liposome (PF) (EXPAREL (PF)) 1.3 % (13.3 mg/mL) 266 mg bupivacaine 2022- No PRN, [facility] rs (preserv 05-22 Starting ity of free) 17:16: 19:46 on Fri [place] (SENSORCAIN 00 :18 05/22/[address] [facility]) 0.25 1116, Branch % (2.5 Intra-op mg/mL) 20 mL, bupivacaine liposome (PF) (EXPAREL (PF)) 1.3 % (13.3 mg/mL) 266 mg HYDROcodone 2022- No 1{tbl} 1 tablet, Univers -acetaminop 05-21 Oral, ity of hen (NORCO 16:30: 23:02 Q6HPRN, [place] as 5) 5-325 mg 17 :50 Starting Medi [place] tablet 1 on [facility] tablet 05/21/22 at 1030, Until Fri05/22/22 at 1702, Routine, Pain (scale 4-6), Pain (scale 7-10) NaCl 0.9% 2022- No 5mL 5 mL, Slow U nivers (NS) 05-21 IV Push, ity of injection 5 13:15: 13:15 ONCE, 1 [place] mL 00 :00 dose, On Medical [facility] Branch 05/21/22 at 0715, Routine heparin Yes 2000U PRN - SEE Univ ers 1,000 05-21 INSTRUCTIO ity of unit/mL (10 13:09: NS, [place] mL) - 04 Starting Medical dialysis on [facility] catheter 05/21/22 at care 0709, Until Discontinu ed, Routine
For Priming of Ports:&nbs p; &n bsp; After initial saline flush, prime each port with heparin according to the priming volume listed on each catheter port for catheter lock.
heparin Yes 2000U PRN - SEE Univ ers 1,000 2- INSTRUCTIO ity of unit/mL (10 13:09: NS, [place] mL) - Starting Medical dialysis on [facility] Branch catheter 05/21/22 at care 0709, Until Discontinu ed, Routine
For Priming of Ports:&nbs p; &n bsp; After initial saline flush, prime each port with heparin according to the priming volume listed on each catheter port for catheter lock.
heparin Yes 2000U PRN - SEE Univ ers 1,000 2-21 INSTRUCTIO ity of unit/mL (10 13:09: NS, [place] mL) - Starting Medical dialysis on [facility] Branch catheter 05/21/22 at care 0709, Until Discontinu ed, Routine
For Priming of Ports:&nbs p; &n bsp; After initial saline flush, prime each port with heparin according to the priming volume listed on each catheter port for catheter lock.
traMADoL 2022- No 50mg 50 mg, Univer s (ULTRAM) 05-21 Oral, ity of tablet 50 03:01: 23:02 Q6HPRN, [place] mg 32 :50 Starting Medical on Fri Branch 05/20/22 at 2101, Until Fri05/22/22 at 1702, Routine, Pain (scale 4-6), Pain (scale 7-10) iopamidol 2022- No [id number] 70mL 70 mL, Univers (ISOVUE 05-20-20 Intravenou ity o f 370-500 mL) 17:45: 17:25 s, ONCE, 1 [place] injection 00 :00 dose, On Medica l 70 mL Fri05/20/22 at 1145, Routine lactated 2022- No 250mL at 999 Unive rs ringers IV 05-20 02-20 mL/hr, 250 it y of infusion 07:15: 11:23 mL, [place] 250 mL 00 :00 Intravenou Medical s, ONCE, 1 Branch dose, On Fri05/20/22 at 0115, Routine midodrine 2022-0 Yes 2.5mg 2.5 mg, Univ ers (PROAMATINE 2-20 Oral, TID, it y of ) tablet 05:45: First dose [place] 2.5 mg 00 on [facility] 05/19/22 at Branch 2345, Until Discontinu ed, Routine midodrine 2022-0 Yes 2.5mg 2.5 mg, Univ ers (PROAMATINE 2-20 Oral, TID, it y of ) tablet 05:45: First dose [place] 2.5 mg 00 on [facility] 05/19/22 at Branch 2345, Until Discontinu ed, Routine midodrine 2022-0 Yes 2.5mg 2.5 mg, Univ ers (PROAMATINE 2-20 Oral, TID, it y of ) tablet 05:45: First dose [place] 2.5 mg 00 on [facility] 05/19/22 at Branch 2345, Until Discontinu ed, Routine NaCl 0.9% 2022- No 250mL at 999 Univ ers (NS) bolus 05-20 02-20 mL/hr, 250 it y of infusion 01:45: 03:42 mL, IV [place] 250 mL 00 :00 Piggyback, Medical ONCE, 1 Branch dose, On [place] 05/19/22 at 1945, STAT traMADoL 2022- No 25mg 25 mg, Univer s (ULTRAM) 05-19 Oral, ity of tablet 25 22:00: 21:58 ONCE, 1 [place] mg 00 :00 dose, On [facility] 05/19/22 at 1600, Routine lidocaine 0 2022- No 1{patch 1 Patch, Univers (LIDODERM) 05-19 } Topical, ity of 5 % (700 20:30: 08:05 Administer [place] mg/patch) 00 :00 over 12 Medical patch 1 Hours, Branch Patch ONCE, 1 dose, On [place] 05/19/22 at 1430, Routine heparin 2022-0 Yes 5000U 5,000 Univers (porcine) 05-19 Units, ity of injection 02:00: Subcutaneo [place] 5,000 Units 00 us, Q12H, Med ical First dose Branch on [facility] 05/18/22 at 2000, Until Discontinu ed, Routine heparin Yes 5000U 5,000 Univers (porcine) 2-19 Units, ity of injection 02:00: Subcutaneo [place] 5,000 Units 00 us, Q12H, Med ical First dose Branch on 05/18/22 at 2000, Until Discontinu ed, Routine heparin Yes 5000U 5,000 Univers (porcine) 2-19 Units, [...] - 47 :47 Starting Medical dialysis on [facility] Branch catheter 05/18/22 at care 1530, Until [...] at 0815, Until Discontinu ed, Routine sevelamer Yes 1600mg 1,600 mg, U nivers (RENVELA) 05-17 Oral, TID ity o f tablet 14:00: MEALS, [place] 1,600 mg 00 First dose Medic al (after Branch last modificati on) on Fri05/17/22 at 0800, Until Discontinu ed sevelamer 0 Yes 1600mg 1,600 mg, U nivers (RENVELA) 17 Oral, TID ity o f tablet 14:00: MEALS, [place] 1,600 mg 00 First dose Medic al (after Branch last modificati on) on Fri05/17/22 at 0800, Until Discontinu ed sevelamer Yes 1600mg 1,600 mg, U nivers (RENVELA) 17 Oral, TID ity o f tablet 14:00: [...] [place] mL 00 :00 dose, On Medical [facility] Branch 05/16/22 at 1545, Routine heparin 2022- No 2000U PRN - SEE Uni vers 1,000 05-16 INSTRUCTIO ity of unit/mL (10 21:34: 13:14 NS, [place] mL) - 41 :47 Starting Medical dialysis on [facility] catheter 05/16/22 at care 1534, Until 05/21/22 at 0714, Routine
For Priming of Ports:&nbs p; &n bsp; After initial saline flush, prime each port with heparin according to the priming volume listed on each catheter port for catheter lock.
iopamidol 2022- No [id number] 100mL 100 mL, Univers (ISOVUE 05-16 Intravenou ity o f 370-500 mL) 15:52: 15:52 s, ONCE, 1 [place] injection 00 :00 dose, On Medica l 100 mL [place] 05/16/22 at 1015, Routine iopamidol 2022- No [id number] 100mL 100 mL, Univers (ISOVUE 05-16 Intravenou ity o f 300-500 mL) 01:00: 01:00 s, ONCE, 1 [place] injection 00 :00 dose, On Medica l 100 mL [facility] 05/15/22 at 1900, Routine lidocaine 2022- No PRN, Univers 1% (PF) 05-15 Starting ity of (XYLOCAINE) 22:50: 22:50 on Fri [place] injection 55 :55 05/15/22 at [facility] ellyn 1650, Branch Until Fri05/15/22 at 1650, Routine FENTanyl PF 2022- No Slow IV Un irma (SUBLIMAZE 05-15 Push, PRN, it y of (PF)) 22:39: 23:24 Starting [place] injection 00 :34 on Fri Medical 05/15/22 at Branch 1639, Until [facility] 05/15/22 at 1724, Routine morpHINE (4 2022- No 4mg 4 mg, Slow Univers mg/mL) 05-14 IV Push, ity of injection 4 21:02: 23:14 Q6HPRN, [place] mg 13 :17 Starting Medical on [facility] 05/14/22 at 1502, Until [place] 05/19/22 at 1714, Routine, Pain (scale 7-10) alteplase 2022- No [id number] 4mg 4 mg, U nivers (CATHFLO 05-14 INTRA-CATH ity of ACTIVASE) 16:45: 17:15 ETER, [place] injection 4 00 :00 ONCE, 1 Medic al mg dose, On Branch [facility] 05/14/22 at 1045, Routine heparin 2022- No 2000U PRN - SEE Uni vers 1,000 05-14 INSTRUCTIO ity of unit/mL (10 14:21: 13:14 NS, [place] mL) - 00 :47 Starting Medical dialysis on [facility] catheter 05/14/22 at care 0821, Until Fri05/21/22 at 0714, Routine
For Priming of Ports:&nbs [...] 05/13/22 at 0845, Routine iopamidol 2022- No [id number] 70mL 70 mL, Univers (ISOVUE 05-12 4100 Intravenou ity o f 370-500 mL) 15:25: 14:25 s, ONCE, 1 [place] injection 00 :00 dose, On Medica l 70 mL [place] Branch 05/12/22 at 0945, Routine HYDROcodone 2022- No 1{tbl} 1 tablet, Univers -acetaminop 05-11 Oral, ity of hen (NORCO) 23:40: 00:56 Q4HPRN, [place] 10-325 mg 13 :30 Starting Medica l tablet 1 on [facility] tablet 05/11/22 at 1740, Until [place] 05/19/22 at 1856, Routine, Pain (scale 4-6) NaCl 0.9% 2022- No 5mL 5 mL, Slow U nivers (NS) 05-11 IV Push, ity of injection 5 20:00: 20:31 ONCE, 1 [place] mL 00 :00 dose, On Medical [facility] Branch 05/11/22 at 1400, Routine heparin 2022- No 2000U PRN - SEE Uni vers 1,000 05-11 INSTRUCTIO ity of unit/mL (10 19:47: 13:14 NS, [place] mL) - 06 :47 Starting Medical dialysis on [facility] Branch catheter 05/11/22 at care 1347, Until [...] Medical (after Branch last modificati on) on [facility] 05/11/22 at 1215, Until Discontinu ed, Routine lisinopriL 2022- No 5mg 5 mg, Unive rs (PRINIVIL,Z 05-11 Oral, ity of ESTRIL) 15:00: 13:54 DAILY, [place] tablet 5 mg 00 :22 First dose Me dical on [facility] Branch 05/11/22 at 0900, Until Discontinu ed, [...] 05-10 Oral, ity of (TYLENOL 15:05: 21:02 [id number], [place] #3) 300-30 56 :36 Starting Medic al mg tablet 1 on Fri Branch tablet 05/10/22 at 0905, Until 05/14/22 at 1502, Routine, Pain (scale 4-6) HYDROcodone 2022- No 1{tbl} 1 tablet, Univers -acetaminop 2-10 02-11 Oral, ity of hen (NORCO 15:05: 23:40 Q6HPRN, [place] 5) 5-325 mg 30 :32 Starting Medi [place] tablet 1 on Fri Branch tablet 05/10/22 at 0905, Until 05/11/22 at 1740, Routine, Pain (scale 7-10) aspirin 2023-0 Yes 81mg 81 mg, Univers chewable 2-10 [...] at 0900, Until Discontinu ed, Routine aspirin 3-0 Yes 81mg 81 mg, Univers chewable 2-10 Oral, ity of tablet 81 15:00: DAILY, [place] mg 00 First dose Medical on Fri Branch 05/10/22 at 0900, Until Discontinu ed, Routine docusate 2022-0 Yes 100mg 100 mg, Unive rs (COLACE) 2-10 Oral, ity of capsule 100 15:00: [place] 00 First dose Medical on Fri [place] 05/10/22 at 0900, Until Discontinu ed, Routine aspirin 3-0 Yes 81mg 81 mg, Univers chewable 2-10 Oral, ity of tablet 81 15:00: DAILY, [place] mg 00 First dose Medical on Fri [place] 05/10/22 at 0900, Until Discontinu ed, Routine docusate 2023-0 2023- No 100mg 100 mg, Univ ers (COLACE) 2-10 02-24 Oral, ity of capsule 100 15:00: 21:56 DAILY, [place] mg 00 :47 First dose Medical on Fri [place] 05/10/22 at 0900, Until Discontinu ed, Routine [...] dose [place] mg 00 on Fri [facility] 05/10/22 at Branch 0800, Until Discontinu ed, Routine sevelamer 2022-2022- No 800mg 800 mg, Uni vers (RENVELA) 05-10-17 Oral, TID ity of tablet 800 14:00: 06:29 MEALS, [place] mg 00 :42 First dose Medical on Fri [place] 05/10/22 at 0800, Until Discontinu ed amLODIPine 2022- No 10mg 10 mg, Univ ers (NORVASC) 05-10 Oral, Q24H ity of tablet 10 12:00: 06:31 ABX, First [place] mg 00 :26 dose Medical (after Branch last modificati on) on Fri05/10/22 at 0600, Until Discontinu ed, Routine hydrALAZINE 2022- No 10mg 10 mg, Uni vers (APRESOLINE 05-1011 Oral, Q8H it y of ) tablet 10 10:15: 13:22 ABX, First [place] mg 00 :06 dose Medical (after Branch last modificati on) on Fri05/10/22 at 0415, Until Discontinu ed, Routine heparin 2022-2022- No [id number] 1500U 1,500 Uni vers 1,000 2-10 02-10 Units, ity of unit/mL 08:30: 08:39 Slow IV [place] injection 00 :00 Push, Medical 1,500 Units DIALYSIS Bran ch ONCE - PT ROOM, 1 dose, On Fri05/10/22 at 0230, Routine heparin 2022-0 2022- No [id number] 1500U 1,500 Uni vers 1,000 2-10 02-10 Units, ity of unit/mL 07:15: 07:18 Slow IV [place] injection 00 :00 Push, Medical 1,500 Units DIALYSIS Bran ch ONCE - PT ROOM, 1 dose, On Fri05/10/22 at 0115, Routine acetaminoph 2022- No 1{tbl} 1 tablet, Univers en-codeine 05-10 Oral, ity of (TYLENOL 06:22: 15:06 [id number], [place] #3) 300-30 43 :07 Starting Medic al mg tablet 1 on Fri Branch tablet 05/10/22 at 0022, Until Fri05/10/22 at 0906, Routine, Pain (scale 7-10) mupirocin Yes Nasal, Univer s (BACTROBAN 2-10 Q12H, For ity of NASAL OINT) 06:09: 5 days, [place] 2 % nasal 13 First dose Medi ellyn ointment conditiona Branc h l, Routine mupirocin 0 Yes Nasal, Univer s (BACTROBAN 2-10 Q12H, For ity of NASAL OINT) 06:09: 5 days, [place] 2 % nasal 13 First dose Medi ellyn ointment conditiona Branc h l, Routine mupirocin 0 Yes Nasal, Univer s (BACTROBAN 2-10 Q12H, For ity of NASAL OINT) 06:09: 5 days, [place] 2 % nasal 13 First dose Medi ellyn ointment conditiona Branc h l, Routine heparin 2022- No 2000U PRN - SEE Uni vers 1,000 05-10 INSTRUCTIO ity of unit/mL (10 06:09: 13:14 Judy MCNAIR mL) - 11 :47 Starting Medical dialysis [...] No 25mg 25 mg, Univ ers (COREG) 2-18 Oral, BID ity of tablet 25 04:45: [...] For blood glucose > 300 mg/dL dextrose 0 Yes 125mL 125 mL, Unive rs 10% [...] snack - Sprite or cranberry juice.
insulin Yes 2U 2 Units, Univer s [...] snack - Sprite or cranberry juice.
insulin Yes 2U 2 Units, Univer s lispro 2-10 Subcutaneo ity of (human) 02:48: us, PRN - [place] (HumaLOG 53 SEE Medical U-100) INSTRUCTIO Branch [...] No .1U/kg 7.8 Units Un irma regular -12 30-10 (0.1 ity of human 01:00: 01:21 Units/kg Judy (HUMULIN R) 00 :00 ?78 kg), Medi ellyn injection IV Push, Branch 7.8 Units ONCE, 1 dose, On [facility] 05/09/22 at 1900, PHIL
In dication for insulin: Hyperkalem ia- Please use the Insulin Protocol for Hyperkalem ia order set dextrose 50 2022-0 2022- No 50mL 50 mL, Uni vers % in water 210 02-10 Slow IV ity o f (D50W) 01:00: 01:14 Push, [place] injection 00 :00 ONCE, 1 Medical 50 mL dose, On Branch [facility] 05/09/22 at 1900, PHIL albuterol 0 2022- No 15mg 15 mg, Unive rs (PROVENTIL) 05-1010 Inhalation i ty of 2.5 mg /3 01:00: 01:21 , ONCE, 1 [place] mL (0.083 00 :00 dose, On Medica l %) [facility] 05/09/22 Branch nebulizer at 1900, solution 15 STAT mg glucagon 0 Yes 1mg 1 mg, Univers (GLUCAGEN 2-10 Intramuscu ity of DIAGNOSTIC 00:47: lar, PRN, [place] KIT) 27 Starting Medical injection 1 on [facility] 05/09/22 at 1847, Until Discontinu ed, PHIL, Blood Glucose < or = 70 mg/dL and patient is NPO, unable to swallow or has mental changes. dextrose 50 0 Yes 25mL 25 mL, Univ ers % in water 2-10 Slow IV ity of (D50W) 00:47: Push, PRN, [place] injection 27 Starting Medica l 25 mL on [facility] 05/09/22 at 1847, Until Discontinu ed, PHIL, Blood Glucose < or = 70 mg/dL and patient is NPO, unable to swallow or has mental status changes. glucagon 0 Yes 1mg 1 mg, Univers (GLUCAGEN 2-10 Intramuscu ity of DIAGNOSTIC 00:47: lar, PRN, [place] KIT) 27 Starting Medical injection 1 on [facility] 05/09/22 at 1847, Until Discontinu ed, PHIL, Blood Glucose < or = 70 mg/dL and patient is NPO, unable to swallow or has mental changes. dextrose 50 2022-0 Yes 25mL 25 mL, Univ ers % in water 2-10 Slow IV ity of (D50W) 00:47: Push, PRN, [place] injection 27 Starting Medica l 25 mL on [place] Branch 05/09/22 at 1847, Until [...] swallow or has mental changes. dextrose 50 0 Yes 25mL 25 mL, Univ ers % in water 2-10 Slow IV ity of (D50W) 00:47: Push, PRN, [place] injection 27 Starting Medica l 25 mL on [place] Branch 05/09/22 at 1847, Until Discontinu ed, PHIL, Blood Glucose < or = 70 mg/dL and patient is NPO, unable to swallow or has mental status changes. ondansetron 2022- No 4mg 4 mg, Slow Univers (ZOFRAN 05-10 IV Push, ity of (PF)) 00:15: 23:10 ONCE, 1 [place] injection 4 00 :00 dose, On Medi ellyn mg [facility] 05/09/22 Branch at 1815, PHIL morpHINE (2 2022- No 4mg 4 mg, Slow Univers mg/mL) 05-1009 IV Push, ity of injection 4 00:15: 23:10 ONCE, 1 [place] mg 00 :00 dose, On Medical [facility] 05/09/22 Branch at 1815, STAT hydralAZINE 2022-0 2022- No 10mg 10 mg, Uni vers (APRESOLINE 05-09 Slow IV ity of ) injection 22:45: 23:40 [place], [place] 10 mg 00 :00 ONCE, 1 Medical dose, On Branch [facility] 05/09/22 at 1645, PHIL multivitami Yes [...] for l sleep. albuterol 2021-03 Yes 2.5mg Q.99481590 Take 2.5 Methodi sulfate 0-[id number] (PROVENTIL) 14:11: 3D nebulizati [...] 15 l packet amino 2021-03 Yes 30mL Q.24577553 Take 30 mL Methodi acids/prote 0-25 [id number] by mouth 3 [address] in 14:11: 3D [...] Hospit a 15 l acetaminoph 2021-03 Yes 62357 1{tbl} Q.5D Take 1 M ethodi en-codeine [...] daily. Default OP ins ergocalcife 2021-03 Yes 96237L Q7D Take 1 Me thodi rol 0-25 [...] l mouth nightly. patiromer 2021-03 Yes 8.4g Q.66035356 Take 8.4 g [facility] calcium 0-25 [id number] by mouth [address] sorbitex 14:11: 3W [...] for l sleep. albuterol 2021-03 Yes 2.5mg Q.72379365 Take 2.5 [facility]i sulfate 0-[id number] (PROVENTIL) 14:11: 3D nebulizati [...] 15 l packet amino 2021-03 Yes 30mL Q.01335483 Take 30 mL [facility] acids/prote 0-25 2141042051 by mouth [address] in 14:11: 3D [...] Hospit a 15 l acetaminoph 2021-03 Yes 42044 1{tbl} Q.5D Take 1 M ethodi en-codeine [...] daily. Default OP ins ergocalcife 2021-03 Yes 16022T Q7D Take 1 Me thodi rol 0-25 [...] l mouth nightly. patiromer 2021-03 Yes 8.4g Q.38843123 Take 8.4 g [facility] calcium 0-25 [id number] by mouth [address] sorbitex 14:11: 3W [...] for l sleep. albuterol 2021-03 Yes 2.5mg Q.96244234 Take 2.5 [facility] sulfate 0-[address] (PROVENTIL) 14:11: 3D nebulizati [...] 15 l packet amino 2021-03 Yes 30mL Q.23771341 Take 30 mL [facility] acids/prote 0-25 [address]28793465 by mouth [address] in 14:11: 3D [...] Hospit a 15 l acetaminoph 2021-03 Yes 18139 1{tbl} Q.5D Take 1 M ethodi en-codeine [...] daily. Default OP ins ergocalcife 2021-03 Yes 00761D Q7D Take 1 Me thodi rol 0-25 [...] l mouth nightly. patiromer 2021-03 Yes 8.4g Q.86167335 Take 8.4 g [facility] calcium 0-25 [id number] by mouth [address] sorbitex 14:11: 3W [...] for l sleep. albuterol 2021-03 Yes 2.5mg Q.78035837 Take 2.5 [facility]i sulfate 0-[address] (PROVENTIL) 14:11: 3D nebulizati [...] 15 l packet amino 2021-03 Yes 30mL Q.09379813 Take 30 mL [facility] acids/prote 0-25 [address]6332880 by mouth [address] in 14:11: 3D [...] Hospit a 15 l acetaminoph 2021-03 Yes 94196 1{tbl} Q.5D Take 1 M ethodi en-codeine [...] daily. Default OP ins ergocalcife 2021-03 Yes 36760U Q7D Take 1 Me thodi rol 0-25 [...] l mouth nightly. patiromer 2021-03 Yes 8.4g Q.87885117 Take 8.4 g [facility] calcium 0-25 4692984578 by mouth [address] sorbitex 14:11: 3W [...] for l sleep. albuterol 2021-03 Yes 2.5mg Q.71217877 Take 2.5 [facility] sulfate 0-[address] (PROVENTIL) 14:11: 3D nebulizati [...] 15 l packet amino 2021-03 Yes 30mL Q.74430619 Take 30 mL [facility] acids/prote 0-25 6810808940 by mouth [address] in 14:11: 3D [...] Hospit a 15 l acetaminoph 2021-03 Yes 73529 1{tbl} Q.5D Take 1 M ethodi en-codeine [...] daily. Default OP ins ergocalcife 2021-03 Yes [id number] Q7D Take 1 Me thodi rol 0-25 [...] l mouth nightly. patiromer 2021-03 Yes 8.4g Q.49933442 Take 8.4 g [facility] calcium 0-25 [address]381959938 by mouth [address] sorbitex 14:11: 3W [...] for l sleep. albuterol 2021-03 Yes 2.5mg Q.65839563 Take 2.5 [facility] sulfate 0-[address] (PROVENTIL) 14:11: 3D nebulizati [...] 15 l packet amino 2021-03 Yes 30mL Q.32799305 Take 30 mL [facility] acids/prote 0-25 [address]898889739 by mouth [address] in 14:11: 3D [...] Hospit a 15 l acetaminoph 2021-03 Yes [id number] 1{tbl} Q.5D Take 1 M ethodi en-codeine [...] daily. Default OP ins ergocalcife 2021-03 Yes [id number] Q7D Take 1 Me thodi rol 0-25 [...] l mouth nightly. patiromer 2021-03 Yes 8.4g Q.77608784 Take 8.4 g [facility] calcium 0-25 4276099675 by mouth [address] sorbitex 14:11: 3W [...] for l sleep. albuterol 2021-03 Yes 2.5mg Q.10270484 Take 2.5 [facility] sulfate 0-[address] (PROVENTIL) 14:11: 3D nebulizati [...] 15 l packet amino 2021-03 Yes 30mL Q.89195517 Take 30 mL [facility] acids/prote 0-25 7773548538 by mouth [address] in 14:11: 3D [...] daily. Default OP ins ergocalcife 2021-03 Yes [id number] Q7D Take 1 Me thodi rol 0-25 [...] l mouth nightly. patiromer 2021-03 Yes 8.4g Q.55814925 Take 8.4 g [facility] calcium 0-25 3420112144 by mouth [address] sorbitex 14:11: 3W [...] for l sleep. albuterol 2021-03 Yes 2.5mg Q.17861731 Take 2.5 [facility] sulfate 0-[address] (PROVENTIL) 14:11: 3D nebulizati [...] 15 l packet amino 2021-03 Yes 30mL Q.61523661 Take 30 mL [facility] acids/prote 0-25 8418932513 by mouth [address] in 14:11: 3D [...] Hospit a 15 l acetaminoph 2021-03 Yes 94991 1{tbl} Q.5D Take 1 M ethodi en-codeine [...] daily. Default OP ins ergocalcife 2021-03 Yes 38614I Q7D Take 1 Me thodi rol 0-25 [...] l mouth nightly. patiromer 2021-03 Yes 8.4g Q.35862367 Take 8.4 g [facility] calcium 0-[id number] by mouth [address] sorbitex 14:11: 3W [...] for l sleep. albuterol 2021-03 Yes 2.5mg Q.75527462 Take 2.5 [facility] sulfate 0-[id number] (PROVENTIL) 14:11: 3D nebulizati [...] 15 l packet amino 2021-03 Yes 30mL Q.85023442 Take 30 mL [facility] acids/prote 0-25 [address]697306410 by mouth [address] in 14:11: 3D [...] Hospit a 15 l acetaminoph 2021-03 Yes 24208 1{tbl} Q.5D Take 1 M ethodi en-codeine [...] daily. Default OP ins ergocalcife 2021-03 Yes 57601D Q7D Take 1 Me thodi rol 0-25 [...] l mouth nightly. patiromer 2021-03 Yes 8.4g Q.20748180 Take 8.4 g [facility] calcium 0-25 [id number] by mouth [address] sorbitex 14:11: 3W [...] for l sleep. albuterol 2021-03 Yes 2.5mg Q.66093532 Take 2.5 [facility] sulfate 0-[address] (PROVENTIL) 14:11: 3D nebulizati [...] needed l (constipat ion). LIDOCAINE 2021-03 Yes Q12H Apply 1 Metho di HCL TOP 0-[address] 14:11: n Hospita 15 topically [...] 15 l packet amino 2021-03 Yes 30mL Q.45375655 Take 30 mL [facility] acids/prote 0-25 5933566832 by mouth [address] in 14:11: 3D [...] Hospit a 15 l acetaminoph 2021-03 Yes 96401 1{tbl} Q.5D Take 1 M ethodi en-codeine [...] daily. Default OP ins ergocalcife 2021-03 Yes [id number] Q7D Take 1 Me thodi rol 0-25 [...] l mouth nightly. patiromer 2021-03 Yes 8.4g Q.78061441 Take 8.4 g [facility] calcium 0-25 7920912582 by mouth [address] sorbitex 14:11: 3W [...] for l sleep. albuterol 2021-03 Yes 2.5mg Q.51116632 Take 2.5 [facility] sulfate 0-[address] (PROVENTIL) 14:11: 3D nebulizati [...] needed l (constipat ion). LIDOCAINE 2021-03 Yes Q12H Apply 1 Metho di HCL TOP 0-[address] 14:11: n Hospita 15 topically [...] 15 l packet amino 2021-03 Yes 30mL Q.75879258 Take 30 mL [facility] acids/prote 0-25 7012668023 by mouth [address] in 14:11: 3D [...] Hospit a 15 l acetaminoph 2021-03 Yes 60774 1{tbl} Q.5D Take 1 M ethodi en-codeine [...] daily. Default OP ins ergocalcife 2021-03 Yes [id number] Q7D Take 1 Me thodi rol 0-25 [...] l mouth nightly. patiromer 2021-03 Yes 8.4g Q.66464175 Take 8.4 g [facility] calcium 0-[address] by mouth [address] sorbitex 14:11: 3W [...] for l sleep. albuterol 2021-03 Yes 2.5mg Q.70341091 Take 2.5 [facility] sulfate 0-[address] (PROVENTIL) 14:11: 3D nebulizati [...] 15 l packet amino 2021-03 Yes 30mL Q.15220537 Take 30 mL [facility] acids/prote 0-25 [address]7735179 by mouth [address] in 14:11: 3D [...] Hospit a 15 l acetaminoph 2021-03 Yes 85081 1{tbl} Q.5D Take 1 M ethodi en-codeine [...] daily. Default OP ins ergocalcife 2021-03 Yes [id number] Q7D Take 1 Me thodi rol 0-25 [...] l mouth nightly. patiromer 2021-03 Yes 8.4g Q.98514465 Take 8.4 g [facility] calcium 0-25 [id number] by mouth [address] sorbitex 14:11: 3W [...] for l sleep. albuterol 2021-03 Yes 2.5mg Q.09392334 Take 2.5 [facility] sulfate 0-[address] (PROVENTIL) 14:11: 3D nebulizati [...] 15 l packet amino 2021-03 Yes 30mL Q.31080950 Take 30 mL [facility] acids/prote 0-25 [address]481766109 by mouth [address] in 14:11: 3D [...] Hospit a 15 l acetaminoph 2021-03 Yes 55655 1{tbl} Q.5D Take 1 M ethodi en-codeine [...] daily. Default OP ins ergocalcife 2021-03 Yes [id number] Q7D Take 1 Me thodi rol 0-25 [...] l mouth nightly. patiromer 2021-03 Yes 8.4g Q.12172117 Take 8.4 g [facility] calcium 0-25 [id number] by mouth [address] sorbitex 14:11: 3W [...] for l sleep. albuterol 2021-03 Yes 2.5mg Q.89511899 Take 2.5 [facility]i sulfate 0-[id number] (PROVENTIL) 14:11: 3D nebulizati [...] 15 l packet amino 2021-03 Yes 30mL Q.71896217 Take 30 mL [facility] acids/prote 0-25 [address]602489 [address] mouth [address] in 14:11: 3D [...] Hospit a 15 l acetaminoph 2021-03 Yes [id number] 1{tbl} Q.5D Take 1 M ethodi en-codeine [...] daily. Default OP ins ergocalcife 2021-03 Yes [id number] Q7D Take 1 Me thodi rol 0-25 [...] l mouth nightly. patiromer 2021-03 Yes 8.4g Q.19555252 Take 8.4 g [facility] calcium 0-25 [id number] mouth [address] sorbitex 14:11: 3W [...] for l sleep. albuterol 2021-03 Yes 2.5mg Q.74281617 Take 2.5 [facility] sulfate 0-[address] (PROVENTIL) 14:11: 3D nebulizati [...] 15 l packet amino 2021-03 Yes 30mL Q.49685762 Take 30 mL [facility] acids/prote 0-25 [id number] [address] mouth [address] in 14:11: 3D [...] daily. Default OP ins ergocalcife 2021-03 Yes [id number] Q7D Take 1 Me thodi rol 0-25 [...] l mouth nightly. patiromer 2021-03 Yes 8.4g Q.22944583 Take 8.4 g [facility] calcium 0-[address] by mouth [address] sorbitex 14:11: 3W [...] for l sleep. albuterol 2021-03 Yes 2.5mg Q.75213739 Take 2.5 [facility] sulfate 0-[id number] (PROVENTIL) 14:11: 3D nebulizati [...] 15 l packet amino 2021-03 Yes 30mL Q.31548154 Take 30 mL [facility] acids/prote 0-25 [id number] by mouth [address] in 14:11: 3D [...] Hospit a 15 l acetaminoph 2021-03 Yes 60861 1{tbl} Q.5D Take 1 M ethodi en-codeine [...] daily. Default OP ins ergocalcife 2021-03 Yes 40197M Q7D Take 1 Me thodi rol 0-25 [...] l mouth nightly. patiromer 2021-03 Yes 8.4g Q.35043824 Take 8.4 g [facility] calcium 0-25 [id number] by mouth [address] sorbitex 14:11: 3W [...] for l sleep. albuterol 2021-03 Yes 2.5mg Q.82522792 Take 2.5 [facility] sulfate 0-[address] (PROVENTIL) 14:11: 3D nebulizati [...] 15 l packet amino 2021-03 Yes 30mL Q.48096904 Take 30 mL [facility] acids/prote 0-25 [id number] by mouth [address] in 14:11: 3D [...] Hospit a 15 l acetaminoph 2021-03 Yes 45859 1{tbl} Q.5D Take 1 M ethodi en-codeine [...] daily. Default OP ins ergocalcife 2021-03 Yes 61468O Q7D Take 1 Me thodi rol 0-25 [...] l mouth nightly. patiromer 2021-03 Yes 8.4g Q.91147112 Take 8.4 g [facility] calcium 0-25 [id number] by mouth [address] sorbitex 14:11: 3W [...] for l sleep. albuterol 2021-03 Yes 2.5mg Q.14953648 Take 2.5 [facility] sulfate 0-[address] (PROVENTIL) 14:11: 3D nebulizati [...] 15 l packet amino 2021-03 Yes 30mL Q.81270323 Take 30 mL Methodi acids/prote 0-25 [id number] by mouth [address] in 14:11: 3D [...] Hospit a 15 l acetaminoph 2021-03 Yes 24560 1{tbl} Q.5D Take 1 M ethodi en-codeine [...] daily. Default OP ins ergocalcife 2021-03 Yes [id number] Q7D Take 1 Me thodi rol 0-25 [...] l mouth nightly. patiromer 2021-03 Yes 8.4g Q.58731638 Take 8.4 g [facility] calcium 0-25 [id number] by mouth [address] sorbitex 14:11: 3W [...] for l sleep. albuterol 2021-03 Yes 2.5mg Q.08755807 Take 2.5 [facility]i sulfate 0-[id number] (PROVENTIL) 14:11: 3D nebulizati [...] 15 l packet amino 2021-03 Yes 30mL Q.29115598 Take 30 mL Methodi acids/prote 0-25 [address]37978903 by mouth [address] in 14:11: 3D [...] Hospit a 15 l acetaminoph 2021-03 Yes 87052 1{tbl} Q.5D Take 1 M ethodi en-codeine [...] daily. Default OP ins ergocalcife 2021-03 Yes 13955N Q7D Take 1 Me thodi rol 0-25 [...] l mouth nightly. patiromer 2021-03 Yes 8.4g Q.07010896 Take 8.4 g [facility] calcium 0-25 [id number] by mouth [address] sorbitex 14:11: 3W [...] for l sleep. albuterol 2021-03 Yes 2.5mg Q.66481607 Take 2.5 [facility]i sulfate 0-[id number] (PROVENTIL) 14:11: 3D nebulizati [...] 15 l packet amino 2021-03 Yes 30mL Q.82537186 Take 30 mL Methodi acids/prote 0-25 [id number] by mouth [address] in 14:11: 3D [...] daily. Default OP ins ergocalcife 2021-03 Yes 74181C Q7D Take 1 Me thodi rol 0-25 [...] l mouth nightly. patiromer 2021-03 Yes 8.4g Q.23459877 Take 8.4 g [facility] calcium 0-25 [id number] by mouth [address] sorbitex 14:11: 3W [...] for l sleep. albuterol 2021-03 Yes 2.5mg Q.18754083 Take 2.5 [facility]i sulfate 0-[address] (PROVENTIL) 14:11: 3D nebulizati [...] needed l (constipat ion). LIDOCAINE 2021-03 Yes Q12H Apply 1 Metho di HCL TOP 0-[address] 14:11: n Hospita 15 topically [...] 15 l packet amino 2021-03 Yes 30mL Q.35018548 Take 30 mL Methodi acids/prote 0-25 1307171297 by mouth [address] in 14:11: 3D [...] Hospit a 15 l acetaminoph 2021-03 Yes 23872 1{tbl} Q.5D Take 1 M ethodi en-codeine [...] daily. Default OP ins ergocalcife 2021-03 Yes [id number] Q7D Take 1 Me thodi rol 0-25 [...] l mouth nightly. patiromer 2021-03 Yes 8.4g Q.93390086 Take 8.4 g [facility] calcium 0-25 [id number] by mouth [address] sorbitex 14:11: 3W [...] le} capsule by ity of 13:33: mouth [place] 35 daily. Medical Branch clonIDINE 2021- No [...] .2mg Q7D Place 1 Meth inderjit (CATAPRES-T 9 10-28 patch (0.2 s t TS) 0.2 [...] Q7D Place 1 Meth inderjit (CATAPRES-T - 10- patch (0.2 s t TS) 0.2 00:00: 04:59 mg total) Hosp carly mg/24 hr 00 :00 on the l skin once a week for 30 days. clonIDINE 202-0 2022- No .2mg Q7D Place 1 Meth inderjit (CATAPRES-T -24 01- patch (0.2 s t TS) 0.2 00:00: 04:59 mg total) Hosp carly mg/24 hr 00 :00 on the l skin once a week for 30 days. acetaminoph 0 Yes 38661 1{tbl} Q.5D Take 1 M ethodi en-codeine - tablet by st (TYLENOL 20:55: mouth 2 Hospit a WITH 01 (two) l CODEINE #3) times a 300-30 mg day as per tablet needed for moderate pain .acute pain. ARIPiprazol 0 Yes 5mg QD Take 1 Meth inderjit e (ABILIFY) - tablet (5 st 5 MG tablet 20:55: mg total) H ospita 01 by mouth l daily. atorvastati 0 Yes 20mg QD Take 1 Meth inderjit n (LIPITOR) -21 tablet (20 st 20 mg 20:55: mg total) Hospita tablet 01 by mouth l daily. Default OP ins ergocalcife 0 Yes [id number] Q7D Take 1 Me thodi rol -[address] (VITAMIN 20:55: (50,000 Hospit a [...] not hold prior to dialysis folic acid 2021-0 Yes 1mg QD Take 1 Metho di (FOLVITE) 1 12-19 tablet (1 st MG tablet 20:55: mg total) Hos acacia 01 by mouth l daily. sertraline 0 Yes 100mg QD Take 1 Meth inderjit (ZOLOFT) 12-[address] 100 MG 20:55: (100 mg Hospita tablet 01 total) by l mouth nightly. patiromer 0 Yes 8.4g Q.83454338 Take 8.4 g [facility] calcium 12-19 [id number] mouth [address] sorbitex 20:55: 3W (three) Hospit a ([place]) 01 times a l 8.4 gram week. powder in Every packet Tue,Tess,Sa packet t,to be given on non dialysis days. aspirin 0 Yes 81mg QD Take 1 Methodi (ECOTRIN) 12-19 tablet (81 st 81 MG 20:55: mg total) Hospita enteric 01 by mouth l coated daily. tablet calcium 0 2021- No 667mg QD Take 1 Method i acetate,aure 12-[address] sphat bind, 20:55: 00:00 (667 mg Ho spita (PHOSLO) 01 :00 total) by l 667 mg mouth capsule nightly. metoprolol 2021-0 2021- No 100mg Q12H Take 1 Met [...] gram powder days in packet packet u,Sat calcium 2-0 2022- No 667mg [...] Give odd gram powder days in packet Dora,Fri, packet u,Sat calcium 2021-0 2022- No 667mg [...] Q2D Take 5 g Method i zirconium 912-[address] cyclosilica 20:55: 00:00 every [...] 667mg QD Take 1 Method i acetate,aure -[address] sphat bind, 20:55: 00:00 (667 [...] days in packet Sun,Fri, packet u,Sat calcium 2021-2021- No 667mg QD [...] in packet Sun,e, packet u,Sat calcium 2021-0 2021- No 667mg [...] days in packet Fri,Fri, packet u,Sat cefTAZidime 2021-0 Yes 1g QD [...] daily. l clonIDINE 2021-0 2021- No .2mg Q.21928676 Take 1 [facility]i HCl 12-18- [id number] tablet st (CATAPRES) 20:55: 00:00 3D (0.2 mg Hos acacia 0.2 MG 48 :00 total) by l tablet mouth 3 (three) times a day as needed. Hold if SBP<100, DBP<60 LIDOCAINE 2021- No 1{appli Q.58088339 Apply 1 Methodi HCL TOP 12-18 cation} [id number] applicatio st 20:55: 00:00 3W n Hospita [...] not [place] [address] 50mg Q6H Take 50 mg M ethodi [...] :00 daily. l clonIDINE 2021- No .2mg Q.33973875 Take 1 [facility]i HCl 12-18- [id number] tablet st (CATAPRES) 20:55: 00:00 3D (0.2 mg Hos acacia 0.2 MG 48 :00 total) by l tablet mouth 3 (three) times a day as needed. Hold if SBP<100, DBP<60 LIDOCAINE 2021- No 1{appli Q.18752180 Apply 1 Methodi HCL TOP 12-18- cation} [id number] applicatio st 20:55: 00:00 3W n Hospita [...] hold prior to dilaysis [place] 2021- [place] [id number] 50mg Q6H Take 50 mg M ethodi [...] :00 daily. l clonIDINE 2021- No .2mg Q.72658816 Take 1 [facility]i HCl 12-18- [id number] tablet st (CATAPRES) 20:55: 00:00 3D (0.2 mg Hos acacia 0.2 MG 48 :00 total) by l tablet mouth 3 (three) times a day as needed. Hold if SBP<100, DBP<60 LIDOCAINE 2021- No 1{appli Q.78473691 Apply 1 Methodi HCL TOP 12-18 cation} [id number] applicatio st 20:55: 00:00 3W n Hospita [...] hold prior to dilaysis traM[place]ol 2021- [place] [address] 50mg Q6H Take 50 mg M ethodi [...] :00 daily. l clonIDINE 2021- No .2mg Q.[id number] Take 1 [facility] HCl 12-18- [id number] tablet st (CATAPRES) 20:55: 00:00 3D (0.2 mg [facility] 0.2 MG 48 :00 total) by l tablet mouth 3 (three) times a day as needed. Hold if SBP<100, DBP<60 LIDOCAINE 2021- No 1{appli Q.[id number] Apply 1 [facility] HCL TOP 12-18- cation} [id number] applicatio st 20:55: 00:00 [facility] [...] hold prior to dilaysis [place] 2021- [place] [address] 50mg Q6H Take 50 mg M ethodi [...] :00 daily. l clonIDINE 2021- No .2mg Q.38646775 Take 1 [facility] HCl 12-18- [id number] tablet st (CATAPRES) 20:55: 00:00 3D (0.2 mg [facility] 0.2 MG 48 :00 total) by l tablet mouth 3 (three) times a day as needed. Hold if SBP<100, DBP<60 LIDOCAINE 2021- No 1{appli Q.09941192 Apply 1 [facility] HCL TOP 12-18 cation} [id number] applicatio st 20:55: 00:00 [facility] [...] hold prior to dilaysis [place] 2021- [place] [address] 50mg Q6H Take 50 mg M ethodi [...] :00 daily. l clonIDINE 2021- No .2mg Q.94236933 Take 1 [facility] HCl 12-18- [id number] tablet st (CATAPRES) 20:55: 00:00 3D (0.2 mg [facility] 0.2 MG 48 :00 total) by l tablet mouth 3 (three) times a day as needed. Hold if SBP<100, DBP<60 LIDOCAINE 2021- No 1{appli Q.19230139 Apply 1 [facility] HCL TOP 12-18 cation} [id number] applicatio st 20:55: 00:00 [facility] [...] not [place] [address] 50mg Q6H Take 50 mg M ethodi [...] :00 daily. l clonIDINE 2021- No .2mg Q.78099336 Take 1 [facility] HCl 12-18- [id number] tablet st (CATAPRES) 20:55: 00:00 3D (0.2 mg [facility] 0.2 MG 48 :00 total) by l tablet mouth 3 (three) times a day as needed. Hold if SBP<100, DBP<60 LIDOCAINE 2021- No 1{appli Q.12110806 Apply 1 [facility] HCL TOP 12-18 cation} [id number] applicatio st 20:55: 00:00 [facility] [...] not hold [place] [address] 50mg Q6H Take 50 mg M ethodi [...] :00 daily. l clonIDINE 2021- No .2mg Q.86881298 Take 1 [facility] HCl 12-18- [id number] tablet st (CATAPRES) 20:55: 00:00 3D (0.2 mg [facility] acacia 0.2 MG 48 :00 total) by l tablet mouth 3 (three) times a day as needed. Hold if SBP<100, DBP<60 LIDOCAINE No 1{appli Q.74126416 Apply 1 [facility] HCL TOP 12-18 cation} [id number] applicatio st 20:55: 00:00 [facility] [...] not hold [place] [address] 50mg Q6H Take 50 mg M ethodi [...] :00 daily. l clonIDINE 2021- No .2mg Q.53597915 Take 1 [facility] HCl 12-18- [id number] tablet st (CATAPRES) 20:55: 00:00 3D (0.2 mg [facility] acacia 0.2 MG 48 :00 total) by l tablet mouth 3 (three) times a day as needed. Hold if SBP<100, DBP<60 LIDOCAINE 2021- No 1{appli Q.53009820 Apply 1 [facility] HCL TOP 12-18 cation} [id number] applicatio [address] 20:55: 00:00 [facility] [...] hold prior to dilaysis traMADol 2021- No 58156 50mg Q6H Take 50 mg M ethodi [...] :00 daily. l clonIDINE 2021- No .2mg Q.04355514 Take 1 [facility] HCl 12-18- [id number] tablet st (CATAPRES) 20:55: 00:00 3D (0.2 mg [facility] acacia 0.2 MG 48 :00 total) by l tablet mouth 3 (three) times a day as needed. Hold if SBP<100, DBP<60 LIDOCAINE 2021- No Q.89799598 Apply 1 [facility] HCL TOP 12-[id number] 20:55: 00:00 [facility] [...] hold prior to dilaysis traM[place]ol 2021- [place] [address]76 50mg Q6H Take 50 mg M ethodi [...] :00 daily. l clonIDINE 2021- No .2mg Q.[id number] Take 1 [facility] HCl 12-[id number] (CATAPRES) 20:55: 00:00 3D (0.2 mg [facility] acacia 0.2 MG 48 :00 total) by l tablet mouth 3 (three) times a day as needed. Hold if SBP<100, DBP<60 LIDOCAINE 2021- No 1{appli Q.38249516 Apply 1 [facility] HCL TOP 12-18 cation} [id number] applicatio st 20:55: 00:00 [facility] [...] hold prior to dilaysis tra[place] 2021- [place] [address] 50mg Q6H Take 50 mg M ethodi [...] :00 daily. l clonIDINE 2021- No .2mg Q.78359776 Take 1 [facility] HCl 12-18- [id number] tablet st (CATAPRES) 20:55: 00:00 3D (0.2 mg [facility] ac[facility] 0.2 MG 48 :00 total) by l tablet mouth 3 (three) times a day as needed. Hold if SBP<100, DBP<60 LIDOCAINE 2021-2021- No 1{appli Q.95329931 Apply 1 [facility] HCL TOP 12-18 cation} [id number] applicatio [facility] 20:55: 00:00 [facility] [...] hold prior to dilaysis traMADol 2021- No 48421 50mg Q6H Take 50 mg M ethodi [...] :00 daily. l clonIDINE 2021- No .2mg Q.59360724 Take 1 [facility] HCl 12-18- [id number] tablet st (CATAPRES) 20:55: 00:00 3D (0.2 mg [facility] ac[facility] 0.2 MG 48 :00 total) by l tablet mouth 3 (three) times a day as needed. Hold if SBP<100, DBP<60 LIDOCAINE 2021-2021- No 1{appli Q.10598880 Apply 1 [facility] HCL TOP 12-18- cation} [id number] applicatio st 20:55: 00:00 [facility] [...] hold prior to dilaysis traMADol 2021- No 77358 50mg Q6H Take 50 mg M ethodi [...] :00 daily. l clonIDINE 2021- No .2mg Q.30652101 Take 1 [facility] HCl 12-18- [id number] tablet st (CATAPRES) 20:55: 00:00 3D (0.2 mg [facility] 0.2 MG 48 :00 total) by l tablet mouth 3 (three) times a day as needed. Hold if SBP<100, DBP<60 LIDOCAINE 2021-2021- No 1{appli Q.33638162 Apply 1 [facility] HCL TOP 12-18- cation} [id number] applicatio st 20:55: 00:00 [facility] [...] not hold [place] [address] 50mg Q6H Take 50 mg M ethodi [...] zinc 220mg QD Take 220 [facility] sulfate 12-18-[address] (ZINCATE) 20:55: 00:00 mouth [facility] 220 (50) mg 48 :00 daily. l capsule aspirin 325 No 325mg QD Take 325 [facility] MG tablet 12-18- mg by st 20:55: 00:00 mouth [facility] 48 :00 daily. l clonIDINE No .2mg Q.64155109 Take 1 [facility] HCl 12-[id number] (CATAPRES) 20:55: 00:00 3D (0.2 mg [facility] 0.2 MG 48 :00 total) by l tablet mouth 3 (three) times a day as needed. Hold if SBP<100, DBP<60 LIDOCAINE 2021- No 1{appli Q.23796894 Apply 1 [facility] HCL TOP 12-18 cation} [id number] applicatio [address] 20:55: 00:00 [facility] [...] not hold [place] [address] 50mg Q6H Take 50 mg M ethodi [...] zinc 220mg QD Take 220 [facility] sulfate 12-18-[address] (ZINCATE) 20:55: 00:00 mouth [facility] 220 (50) mg 48 :00 daily. l capsule aspirin 325 325mg QD Take 325 [facility] MG tablet 12-18-[address] 20:55: 00:00 mouth [facility] 48 :00 daily. l clonIDINE No .2mg Q.[id number] Take 1 [facility] HCl 12-18- [id number] tablet st (CATAPRES) 20:55: 00:00 3D (0.2 mg [facility] 0.2 MG 48 :00 total) by l tablet mouth 3 (three) times a day as needed. Hold if SBP<100, DBP<60 LIDOCAINE 2021- No 1{appli Q.39294312 Apply 1 [facility] HCL TOP 12-18- cation} [id number] applicatio st 20:55: 00:00 [facility] [...] not hold [place] [address] 50mg Q6H Take 50 mg M ethodi [...] 48 :00 daily. l clonIDINE No .2mg Q.73430783 Take 1 [facility] HCl 12-[id number] (CATAPRES) 20:55: 00:00 3D (0.2 mg [facility] 0.2 MG 48 :00 total) by l tablet mouth 3 (three) times a day as needed. Hold if SBP<100, DBP<60 LIDOCAINE 2021- No 1{appli Q.41990222 Apply 1 [facility] HCL TOP 12-18 cation} [id number] applicatio [address] 20:55: 00:00 [facility] [...] not hold [place] [address] 50mg Q6H Take 50 mg M ethodi [...] :00 daily. l clonIDINE 2021- No .2mg Q.08798672 Take 1 [facility] HCl 12-[id number] (CATAPRES) 20:55: 00:00 3D (0.2 mg [facility] 0.2 MG 48 :00 total) by l tablet mouth 3 (three) times a day as needed. Hold if SBP<100, DBP<60 LIDOCAINE 2021- No 1{appli Q.57841010 Apply 1 [facility] HCL TOP 12-18 cation} [id number] applicatio [address] 20:55: 00:00 [facility] [...] hold prior to dilaysis traMADol 2021- No 22589 50mg Q6H Take 50 mg M ethodi [...] :00 daily. l clonIDINE 2021- No .2mg Q.[id number] Take 1 [facility] HCl 12-18- [id number] tablet st (CATAPRES) 20:55: 00:00 3D (0.2 mg [facility] 0.2 MG 48 :00 total) by l tablet mouth 3 (three) times a day as needed. Hold if SBP<100, DBP<60 LIDOCAINE 2021- No 1{appli Q.20488002 Apply 1 [facility] HCL TOP 12-18- cation} [id number] applicatio [facility] 20:55: 00:00 [facility] [...] not hold [place] [address] 50mg Q6H Take 50 mg M ethodi [...] :00 daily. l clonIDINE 2021- No .2mg Q.79431731 Take 1 [facility] HCl 12-[id number] (CATAPRES) 20:55: 00:00 3D (0.2 mg [facility] 0.2 MG 48 :00 total) by l tablet mouth 3 (three) times a day as needed. Hold if SBP<100, DBP<60 LIDOCAINE 2021- No 1{appli Q.30926262 Apply 1 [facility] HCL TOP 12-18 cation} [id number] applicatio st 20:55: 00:00 [facility] 48 :00 topically l 3 (three) times a week. 3% Gel, Apply to right hemodialys is access every day shift every Mon, Wed,, Fri. For pain prior to dialysis lisinopril 2022-0 2022- No 40mg QD Take 1 Meth inderjit (PRINIVIL) 12-18 09-20 tablet (40 st 40 mg 20:55: 00:00 mg total) Hospit a tablet 48 :00 by mouth l daily. Hold if SBP<110, DBP<60 ,do not hold prior to dilaysis traMADol 0 2021- [place] [address] 50mg Q6H Take 50 mg M ethodi [...] hours as needed for mild pain. zinc 0 2021- No 220mg QD Take 220 [facility] sulfate 12-18-[address] (ZINCATE) 20:55: 00:00 mouth [facility] a 220 (50) mg 48 :00 daily. l capsule melatonin 3 Yes 3mg QD Take 3 mg M [facility]i mg tablet 12-[address] 20:55: nightly as [facility]osp[facility] 45 needed for l sleep. albuterol 0 Yes 2.5mg Q.69176168 Take 2.5 [facility] sulfate -[id number] (PROVENTIL) 20:55: 3D nebulizati [...] gram 45 l packet amino Yes 30mL Q.94708982 Take 30 mL [facility] acids/prote 9-20 [id number] by mouth 3 [address] in 20:55: 3D [...] 20:55: daily. Hospit a 45 l calcium 2021- No 1334mg Q.94172667 Take 2 [facility] acetate 9-20 09-20 [id number] capsules s t (PHOSLO) 14:15: 00:00 3D (1,334 mg [facility] acacia 667 mg 08 :00 total) by l capsule mouth 3 (three) times a day with meals. Give 15 minutes before meals calcium 202-0 2022- No 1334mg Q.74488515 Take 2 [facility] acetate 9-18 12-20 [id number] capsules s t (PHOSLO) 14:15: 00:00 3D (1,334 mg [facility] ac[facility] 667 mg 08 :00 total) by l capsule mouth 3 (three) times a day with meals. Give 15 minutes before meals calcium 2021-0 2022- No 1334mg Q.35734900 Take 2 [facility] acetate 12-18-20 [id number] capsules s t (PHOSLO) 14:15: 00:00 3D (1,334 mg [facility] acacia 667 mg 08 :00 total) by l capsule mouth 3 (three) times a day with meals. Give 15 minutes before meals calcium 2021-0 2022- No 1334mg Q.30828908 Take 2 [facility] acetate -18 12- [id number] capsules s t (PHOSLO) 14:15: 00:00 3D (1,334 mg [facility] 667 mg 08 :00 total) by l capsule mouth 3 (three) times a day with meals. Give 15 minutes before meals calcium 2021-0 202- No 1334mg Q.[id number] Take 2 [facility] acetate -18 12- [id number] capsules s t (PHOSLO) 14:15: 00:00 3D (1,334 mg [facility] 667 mg 08 :00 total) by l capsule mouth 3 (three) times a day with meals. Give 15 minutes before meals calcium 2021-0 2022- No 1334mg Q.[id number] Take 2 [facility] acetate -18 12-20 [id number] capsules s t (PHOSLO) 14:15: 00:00 3D (1,334 mg [facility] 667 mg 08 :00 total) by l capsule mouth 3 (three) times a day with meals. Give 15 minutes before meals calcium 2021-0 2022- No 1334mg Q.20108637 Take 2 [facility] acetate -18 12-20 [id number] capsules s t (PHOSLO) 14:15: 00:00 3D (1,334 mg [facility] 667 mg 08 :00 total) by l capsule mouth 3 (three) times a day with meals. Give 15 minutes before meals calcium 2021-0 2022- No 1334mg Q.53388602 Take 2 [facility] acetate -18 12-20 [id number] capsules s t (PHOSLO) 14:15: 00:00 3D (1,334 mg [facility] 667 mg 08 :00 total) by l capsule mouth 3 (three) times a day with meals. Give 15 minutes before meals calcium 2021-0 2022- No 1334mg Q.[id number] Take 2 [facility] acetate 12-18- [id number] capsules s t (PHOSLO) 14:15: 00:00 3D (1,334 mg [facility] 667 mg 08 :00 total) by l capsule mouth 3 (three) times a day with meals. Give 15 minutes before meals calcium 2021-0 202- No 1334mg Q.18562649 Take 2 [facility] acetate 12-18- [id number] capsules s t (PHOSLO) 14:15: 00:00 3D (1,334 mg [facility] 667 mg 08 :00 total) by l capsule mouth 3 (three) times a day with meals. Give 15 minutes before meals calcium 2021-0 2022- No 1334mg Q.[id number] Take 2 [facility] acetate 12-18- [id number] capsules s t (PHOSLO) 14:15: 00:00 3D (1,334 mg [facility] 667 mg 08 :00 total) by l capsule mouth 3 (three) times a day with meals. Give 15 minutes before meals calcium 2021-0 2022- No 1334mg Q.[id number] Take 2 [facility] acetate 12-18-20 [id number] capsules s t (PHOSLO) 14:15: 00:00 3D (1,334 mg [facility] 667 mg 08 :00 total) by l capsule mouth 3 (three) times a day with meals. Give 15 minutes before meals calcium 2021-0 2022- No 1334mg Q.46731905 Take 2 [facility] acetate -18 12-20 [id number] capsules s t (PHOSLO) 14:15: 00:00 3D (1,334 mg [facility] 667 mg 08 :00 total) by l capsule mouth 3 (three) times a day with meals. Give 15 minutes before meals calcium 2021-0 2022- No 1334mg Q.[id number] Take 2 [facility] acetate 9-20 -20 [id number] capsules s t (PHOSLO) 14:15: 00:00 3D (1,334 mg [facility] 667 mg 08 :00 total) by l capsule mouth 3 (three) times a day with meals. Give 15 minutes before meals calcium 2021-0 2022- No 1334mg Q.[id number] Take 2 [facility] acetate -18 12-20 [id number] capsules s t (PHOSLO) 14:15: 00:00 3D (1,334 mg [facility] 667 mg 08 :00 total) by l capsule mouth 3 (three) times a day with meals. Give 15 minutes before meals calcium 2021-0 2022- No 1334mg Q.[id number] Take 2 [facility] acetate -18 12-20 [id number] capsules s t (PHOSLO) 14:15: 00:00 3D (1,334 mg [facility] 667 mg 08 :00 total) by l capsule mouth 3 (three) times a day with meals. Give 15 minutes before meals calcium 2021-0 2022- No 1334mg Q.56519883 Take 2 [facility] acetate -18 12-20 [id number] capsules s t (PHOSLO) 14:15: 00:00 3D (1,334 mg [facility] 667 mg 08 :00 total) by l capsule mouth 3 (three) times a day with meals. Give 15 minutes before meals calcium 2021-0 2022- No 1334mg Q.[id number] Take 2 [facility] acetate 9-20 -20 [id number] capsules s t (PHOSLO) 14:15: 00:00 3D (1,334 mg [facility] 667 mg 08 :00 total) by l capsule mouth 3 (three) times a day with meals. Give 15 minutes before meals calcium 2021-0 2022- No 1334mg Q.[id number] Take 2 [facility] acetate 9-18 12-20 [id number] capsules s t (PHOSLO) 14:15: 00:00 3D (1,334 mg [facility] 667 mg 08 :00 total) by l capsule mouth 3 (three) times a day with meals. Give 15 minutes before meals calcium 2022-0 2022- No 1334mg Q.[id number] Take 2 [facility] acetate 9-20 09-20 [id number] capsules s t (PHOSLO) 14:15: 00:00 3D (1,334 mg [facility] 667 mg 08 :00 total) by l capsule mouth 3 (three) times a day with meals. Give 15 minutes before meals calcium 2022-0 Yes 2001mg Q.[id number] Take 3 [facility] acetate,aure 9-[id number] sphat bind, 00:00: 3D (2,001 mg H [facility]spita (PHOSLO) 00 total) by l 667 mg mouth 3 capsule (three) times a day with meals. Give 15 minutes before meals calcium 2022-0 Yes 2001mg Q.[id number] Take 3 [facility] acetate,aure 9-[id number] sphat bind, 00:00: 3D (2,001 mg H [facility]spita (PHOSLO) 00 total) by l 667 mg mouth 3 capsule (three) times a day with meals. Give 15 minutes before meals calcium 2022-0 Yes 2001mg Q.[id number] Take 3 [facility] acetate,aure 9-[id number] sphat bind, 00:00: 3D (2,001 mg H [facility]sp[facility] (PHOSLO) 00 total) by l 667 mg mouth 3 capsule (three) times a day with meals. Give 15 minutes before meals calcium 2022-0 Yes 2001mg Q.[id number] Take 3 [facility] acetate,auer 9-[id number] sphat bind, 00:00: 3D (2,001 mg H [facility] (PHOSLO) 00 total) by l 667 mg mouth 3 capsule (three) times a day with meals. Give 15 minutes before meals calcium 2022-0 Yes 2001mg Q.[id number] Take 3 [facility] acetate,aure 9-[id number] sphat bind, 00:00: 3D (2,001 mg H [facility] (PHOSLO) 00 total) by l 667 mg mouth 3 capsule (three) times a day with meals. Give 15 minutes before meals calcium 2022-0 Yes 2001mg Q.[id number] Take 3 [facility] acetate,aure 9-[id number] sphat bind, 00:00: 3D (2,001 mg [facility] (PHOSLO) 00 total) by l 667 mg mouth 3 capsule (three) times a day with meals. Give 15 minutes before meals calcium 2022-0 Yes 2001mg Q.[id number] Take 3 [facility] acetate,aure 9-[id number] sphat bind, 00:00: 3D (2,001 mg [facility] (PHOSLO) 00 total) by l 667 mg mouth 3 capsule (three) times a day with meals. Give 15 minutes before meals calcium 2022-0 Yes 2001mg Q.[id number] Take 3 [facility] acetate,aure 9-[id number] sphat bind, 00:00: 3D (2,001 mg [facility] (PHOSLO) 00 total) by l 667 mg mouth 3 capsule (three) times a day with meals. Give 15 minutes before meals calcium 2022-0 Yes 2001mg Q.[id number] Take 3 [facility] acetate,aure 9-[id number] sphat bind, 00:00: 3D (2,001 mg [facility] (PHOSLO) 00 total) by l 667 mg mouth 3 capsule (three) times a day with meals. Give 15 minutes before meals calcium 2022-0 Yes 2001mg Q.[id number] Take 3 [facility] acetate,aure 9-[id number] sphat bind, 00:00: 3D (2,001 mg [facility] (PHOSLO) 00 total) by l 667 mg mouth 3 capsule (three) times a day with meals. Give 15 minutes before meals calcium 2022-0 Yes 2001mg Q.[id number] Take 3 [facility] acetate,aure 9-[id number] sphat bind, 00:00: 3D (2,001 mg [facility] (PHOSLO) 00 total) by l 667 mg mouth 3 capsule (three) times a day with meals. Give 15 minutes before meals calcium 2022-0 Yes 2001mg Q.[id number] Take 3 [facility] acetate,aure 9-[id number] sphat bind, 00:00: 3D (2,001 mg [facility] (PHOSLO) 00 total) by l 667 mg mouth 3 capsule (three) times a day with meals. Give 15 minutes before meals calcium 2022-0 Yes 2001mg Q.45838785 Take 3 [facility] acetate,aure 9-[id number] sphat bind, 00:00: 3D (2,001 mg [facility] (PHOSLO) 00 total) by l 667 mg mouth 3 capsule (three) times a day with meals. Give 15 minutes before meals calcium 2022-0 Yes 2001mg Q.[id number] Take 3 [facility] acetate,aure 9-[id number] sphat bind, 00:00: 3D (2,001 mg [facility] (PHOSLO) 00 total) by l 667 mg mouth 3 capsule (three) times a day with meals. Give 15 minutes before meals calcium 2022-0 Yes 2001mg Q.[id number] Take 3 [facility] acetate,aure 9-[id number] sphat bind, 00:00: 3D (2,001 mg [facility] (PHOSLO) 00 total) by l 667 mg mouth 3 capsule (three) times a day with meals. Give 15 minutes before meals calcium 2022-0 Yes 2001mg Q.37870217 Take 3 [facility] acetate,aure 9-[id number] sphat bind, 00:00: 3D (2,001 mg [facility] (PHOSLO) 00 total) by l 667 mg mouth 3 capsule (three) times a day with meals. Give 15 minutes before meals calcium 2022-0 Yes 2001mg Q.[id number] Take 3 [facility] acetate,aure 9-[id number] sphat bind, 00:00: 3D (2,001 mg [facility] (PHOSLO) 00 total) by l 667 mg mouth 3 capsule (three) times a day with meals. Give 15 minutes before meals calcium 2022-0 Yes 2001mg Q.75345975 Take 3 [facility] acetate,aure 9-[id number] sphat bind, 00:00: 3D (2,001 mg [facility] (PHOSLO) 00 total) by l 667 mg mouth 3 capsule (three) times a day with meals. Give 15 minutes before meals calcium 2022-0 Yes 2001mg Q.45464480 Take 3 [facility] acetate,aure 9-[id number] sphat bind, 00:00: 3D (2,001 mg [facility] (PHOSLO) 00 total) by l 667 mg mouth 3 capsule (three) times a day with meals. Give 15 minutes before meals calcium 2022-0 Yes 2001mg Q.95819477 Take 3 [facility] acetate,aure 9-[id number] sphat bind, 00:00: 3D (2,001 mg [facility] (PHOSLO) 00 total) by l 667 mg mouth 3 capsule (three) times a day with meals. Give 15 minutes before meals calcium 2022-0 Yes 2001mg Q.37570036 Take 3 [facility] acetate,aure 9-[id number] sphat bind, 00:00: 3D (2,001 mg [facility] (PHOSLO) 00 total) by l 667 mg mouth 3 capsule (three) times a day with meals. Give 15 minutes before meals calcium 2022-0 Yes 2001mg Q.76904293 Take 3 [facility] acetate,aure 9-[id number] sphat bind, 00:00: 3D (2,001 [...] days. as needed for 30 days. acetaminoph 2-0 Yes Q12H every 12 UT en-codeine 6-28 [...] and 1 at bedtime with snack carvedilol 202-0 Yes Q12H every 12 UT (Coreg) 25 09-25 (twelve) Healt h MG tablet 16:44: hours. 48 cloNIDine 0 Yes clonidine UT (Catapres-T 09-25 0.1 mg/24 Hea lth TS) 0.1 16:44: hr weekly MG/24HR 48 transderma l patch Apply 1 patch every week by transderma l route. ergocalcife 0 Yes 1{capsu 1 capsule. UT rol 09-25 le} Health (Vitamin 16:44: D-2) 1.25 48 MG (77455 UT) capsule ferrous 2021-0 Yes Q12H every [...] 100 MG 16:44: hours. tablet 48 lactulose 0 Yes 30mL QD 30 mL 1 UT (Chronulac) 09-25 (one) time He alth 10 GM/15ML 16:44: each day. solution 48 lisinopril 2021-0 Yes QD 1 (one) UT 40 MG 09-25 time each Health tablet 16:44: day. 48 Patiromer 202-0 Yes [place] UT Sorbitex 09-25 8.4 gram [...] 12 l (twelve) hours. traMADol 2018-03 Yes 06817 50mg Q6H Take 50 mg Me thodi [...] for l sleep. albuterol 2018-03 Yes 2.5mg Q.61563880 Take 2.5 [facility] sulfate 1-[id number] (PROVENTIL) 15:53: 3D nebulizati [...] OPHT) day. 0.4% calcium 2018-03 Yes 2001mg Q.91397129 Take 2,001 [facility] acetate 1-[id number] (PHOSLO) 15:53: 3D mouth 3 [facility] a 667 mg 19 (three) l capsule times a day with meals. Give 15 minutes before meals clonIDINE 2018-03 Yes .2mg Q.14153373 Take 0.2 [facility] HCl 1-[id number] (CATAPRES) 15:53: 3D mouth [...] needed for pain LIDOCAINE 2018-03 Yes 1{appli Q.20156264 Apply 1 [facility] HCL TOP 1-30 cation} [id number] applicatio st 15:53: [facility] 19 [...] 19 l packet amino 2018-03 Yes 30mL Q.26790032 Take 30 mL [facility] acids/prote 1-30 [id number] [address] mouth [address] in 15:53: 3D (three) Hospita hydr/fiber 19 times a l (PRO-STAT day. RENAL CARE ORAL) senna 2018-03 Yes 2{tbl} Q12H Take 2 [facility] (SENOKOT) 1-[address] 8.6 mg 15:53: mouth [facility]osp[facility] tablet 19 every 12 l (twelve) hours. traMADol 2018-03 Yes [id number] 50mg Q6H Take 50 mg Me thodi [...] daily. l capsule calcium 2018-03 Yes 2001mg Q.53608197 Take 2,001 [facility] acetate 1-[id number] (PHOSLO) 15:53: 3D mouth 3 [facility] a 667 mg 19 (three) l capsule times a day with meals. Give 15 minutes before meals cetirizine 2018-03 Yes 10mg QD Take 10 mg M [facility]i (ZyrTEC) 10 1-[address] MG tablet 15:53: daily. Hospit a 19 l clonIDINE 2018-03 Yes .2mg Q.99633714 Take 0.2 [facility] HCl 1-[id number] (CATAPRES) 15:53: 3D mouth [...] needed for pain LIDOCAINE 2018-03 Yes 1{appli Q.47524665 Apply 1 [facility] HCL TOP 1-30 cation} [id number] applicatio st 15:53: [facility] 19 [...] 19 l packet amino 2018-03 Yes 30mL Q.65645665 Take 30 mL [facility] acids/prote 1-30 [id number] by mouth [address] in 15:53: 3D (three) [facility]ospita hydr/fiber 19 times a l (PRO-STAT day. RENAL CARE ORAL) senna 2018-03 Yes 2{tbl} Q12H Take 2 [facility] (SENOKOT) 1-[address] 8.6 mg 15:53: mouth [facility]osp[facility] tablet 19 every 12 l (twelve) hours. traMADol 2018-03 Yes 11038 50mg Q6H Take 50 mg Me thodi [...] for l sleep. albuterol 2018-03 Yes 2.5mg Q.00577507 Take 2.5 [facility] sulfate 1-[id number] (PROVENTIL) 15:53: 3D nebulizati Hospita 2.5 mg/0.5 19 on 3 l mL solution (three) for times a nebulizatio day as n needed (congestio n/cough). aspirin 325 2019-1 Yes 325mg QD Take 325 M ethodi [...] OPHT) day. 0.4% calcium 2018-03 Yes 2001mg Q.70924419 Take 2,001 [facility] acetate 1-[id number] (PHOSLO) 15:53: 3D mouth 3 [facility] a 667 mg 19 (three) l capsule times a day with meals. Give 15 minutes before meals clonIDINE 2018-03 Yes .2mg Q.86901037 Take 0.2 [facility] HCl 1-[id number] (CATAPRES) 15:53: 3D mouth [...] needed for pain LIDOCAINE 2018-03 Yes 1{appli Q.03510067 Apply 1 [facility] HCL TOP 1-30 cation} [id number] applicatio st 15:53: [facility] 19 [...] 19 l packet amino 2018-03 Yes 30mL Q.30677088 Take 30 mL [facility] acids/prote 1-30 [id number] by mouth [address] in 15:53: 3D (three) [facility]ospita hydr/fiber 19 times a l (PRO-STAT day. RENAL CARE ORAL) senna 2018-03 Yes 2{tbl} Q12H Take 2 [facility] (SENOKOT) 1-[address] 8.6 mg 15:53: mouth [facility]osp[facility] tablet 19 every 12 l (twelve) hours. traMADol 2018-03 Yes 27527 50mg Q6H Take 50 mg Me thodi [...] for l sleep. albuterol 2018-03 Yes 2.5mg Q.07635861 Take 2.5 [facility] sulfate 1-[id number] (PROVENTIL) 15:53: 3D nebulizati [...] OPHT) day. 0.4% calcium 2018-03 Yes 2001mg Q.05272373 Take 2,001 [facility] acetate 1-[id number] (PHOSLO) 15:53: 3D mouth 3 Hospit a 667 mg 19 (three) l capsule times a day with meals. Give 15 minutes before meals clonIDINE 2018-03 Yes .2mg Q.90499029 Take 0.2 [facility] HCl 1-[id number] (CATAPRES) 15:53: 3D mouth [...] needed for pain LIDOCAINE 2018-03 Yes 1{appli Q.66060182 Apply 1 [facility] HCL TOP 1-30 cation} [id number] applicatio [address] 15:53: [facility] 19 [...] 19 l packet amino 2018-03 Yes 30mL Q.73288327 Take 30 mL [facility] acids/prote 1-30 [id number] [address] mouth [address] in 15:53: 3D (three) Hospita hydr/fiber 19 times a l (PRO-STAT day. RENAL CARE ORAL) senna 2018-03 Yes 2{tbl} Q12H Take 2 [facility] (SENOKOT) 1-[address] 8.6 mg 15:53: mouth [facility]osp[facility] tablet 19 every 12 l (twelve) hours. traMADol 2018-03 Yes 87451 50mg Q6H Take 50 mg Me thodi [...] for l sleep. albuterol 2018-03 Yes 2.5mg Q.03529014 Take 2.5 [facility] sulfate 1-[id number] (PROVENTIL) 15:53: 3D nebulizati [...] OPHT) day. 0.4% albuterol 2018-03 Yes 2.5mg Q.77949025 Take 2.5 [facility] sulfate 1-[id number] (PROVENTIL) 15:53: 3D nebulizati [facility]osp[facility] 2.5 mg/0.5 19 on 3 l mL solution (three) for times a nebulizatio day as n needed (congestio n/cough). calcium 2018-03 Yes 2001mg Q.[id number] Take 2,001 [facility] acetate 1-[id number] (PHOSLO) 15:53: 3D mouth 3 Hospit a 667 mg 19 (three) l capsule times a day with meals. Give 15 minutes before meals clonIDINE 2018-03 Yes .2mg Q.35379844 Take 0.2 [facility] HCl 1-[id number] (CATAPRES) 15:53: 3D mouth [...] needed for pain LIDOCAINE 2018-03 Yes 1{appli Q.[id number] Apply 1 [facility] HCL TOP 1-30 cation} [id number] applicatio [facility] 15:53: [facility] n [facility] 19 [...] 19 l packet amino 2018-03 Yes 30mL Q.[id number] Take 30 mL [facility] acids/prote 1-30 [id number] by mouth [address] in 15:53: 3D [...] % Crea 1-21 ion of cation} applicatio [facility] 22:13: local n Medical [address] amLODIPine 2018-03 Yes hypertensio 5mg QD Take [address] [facility] (NORVASC) 1-21 n by mouth [facility] 10 MG 22:13: daily. Medical tablet 44 Center hydroxyprop 2018-03 Yes dry eye 1[drp] Q.5D Place [address] [facility] yl 1-21 drop into [facility] methylcellu 22:13: both eyes M edical lose 44 2 (two) Center (ISOPTO times TEARS) 2.5 daily % Artificial ophthalmic tears solution solution 0.4% (hypromell ose) . aspirin 325 2018-03 Yes acute 325mg QD Take [address] [facility] MG tablet 1-21 myocardial mg by Mike es 22:13: infarction mouth Medica l 44 daily. [place] calcium 2018-03 Yes 667mg Q.[id number] Take [address] [facility] acetate 1-21 [id number] mg by [facility] (PHOSLO) 22:13: 3D mouth 3 Medica l 667 mg 44 (three) Center capsule times daily. cloNIDine 2018-03 Yes hypertensio .2mg Q.43787213 Take 0.[address] [facility] HCl 1-21 n [id number] mg by [facility] (CATAPRES) 22:13: 3D mouth [...] Center gram/dose powder amino 2018-03 Yes 30mL Q.[id number] Take [address] [facility] acids-prote 1-21 [id number] mLs by [facility] in 22:13: 3D mouth [...] 44 daily. Center calcium 2018-03 Yes 667mg Q.61387644 Take [address] [facility] [address] acetate 1-21 [id number] mg by [facility] (PHOSLO) 22:13: 3D mouth 3 Medica l 667 mg 44 (three) Center capsule times daily. cloNIDine 2018-03 Yes hypertensio .2mg Q.[id number] Take 0.[address] [facility] HCl 1-21 n [id number] mg by [facility] (CATAPRES) 22:13: 3D mouth [...] Center gram/dose powder amino 2018-03 Yes 30mL Q.[id number] Take [address] [facility] acids-prote 1-21 [id number] mLs by [facility] in 22:13: 3D mouth [...] 22:13: daily. Medi ellyn 44 Center zinc 2019-1 Yes 220mg QD Take [address] [facility] [address] [...] 44 daily. Center calcium 2018-03 Yes 667mg Q.23409521 Take [address] [facility] [address] acetate 1-21 [id number] mg by [facility] (PHOSLO) 22:13: 3D mouth 3 Medica l 667 mg 44 (three) Center capsule times daily. cloNIDine 2018-03 Yes hypertensio .2mg Q.[id number] Take 0.[address] [facility] HCl 1-21 n [id number] mg by [facility] (CATAPRES) 22:13: 3D mouth [...] 22:13: daily. Medic al MG tablet 44 [place] melatonin 3 2018-03 Yes 3mg Take [address] mg Tab 1-21 by mouth [facility] tablet 22:13: every Medical 44 night as Center needed. omeprazole 2018-03 Yes 20mg QD Take [address] (PRILOSEC 1-21 by mouth [facility] OTC) 20 MG 22:13: daily. Medic al tablet 44 [place] polyethylen 2018-03 Yes 17g QD Take [address] [facility] e glycol 1-21 by mouth [facility] (GLYCOLAX) 22:13: daily. Medic al 17 44 [place] gram/dose powder amino 2018-03 Yes 30mL Q.[id number] Take [address] [facility] acids-prote 1-21 4816477792 mLs by [facility] in 22:13: 3D mouth [...] 44 daily. Center calcium 2018-03 Yes 667mg Q.[id number] Take [address] [address] acetate 1-21 [id number] mg by [facility] (PHOSLO) 22:13: 3D mouth 3 Medica l 667 mg 44 (three) Center capsule times daily. cloNIDine 2018-03 Yes hypertensio .2mg Q.41636343 Take 0.[address] [facility] HCl 1-21 n [id number] mg by [facility] (CATAPRES) 22:13: 3D mouth [...] Center gram/dose powder amino 2018-03 Yes 30mL Q.[id number] Take [address] [facility] acids-prote 1-21 3750955630 mLs by [facility] in 22:13: 3D mouth [...] 44 daily. Center calcium 2018-03 Yes 667mg Q.[id number] Take [address] [address] acetate 1-21 [id number] mg by [facility] (PHOSLO) 22:13: 3D mouth 3 Medica l 667 mg 44 (three) Center capsule times daily. cloNIDine 2018-03 Yes hypertensio .2mg Q.[id number] Take 0.[address] [facility] [address] HCl 1-21 n [id number] mg by [facility] (CATAPRES) 22:13: 3D mouth [...] Center gram/dose powder amino 2018-03 Yes 30mL Q.[id number] Take [address] [facility] acids-prote 1-21 2315322668 mLs by [facility] in 22:13: 3D mouth [...] tablet 44 Center calcium 2018-03 Yes 667mg Q.16318416 Take [address] [address] acetate 1-21 [id number] mg by [facility] (PHOSLO) 22:13: 3D mouth 3 Medica l 667 mg 44 (three) Center capsule times daily. cloNIDine 2018-03 Yes hypertensio .2mg Q.36476587 Take 0.[address] [facility] HCl 1-21 n [id number] mg by [facility] (CATAPRES) 22:13: 3D mouth [...] Center gram/dose powder amino 2018-03 Yes 30mL Q.[id number] Take [address] [facility] acids-prote 1-21 [id number] mLs by [facility] in 22:13: 3D mouth [...] mouth Medical 220 (50) mg 44 daily. [place] capsule cetirizine 2018-03 Yes 10mg QD Take [address] (ZYRTEC) 10 1-21 by mouth Luke s MG tablet 22:13: daily. Medica l 44 Center lidocaine 3 2018-03 Yes administrat 1{appli Apply [address] [facility] % Crea 1-21 ion of cation} applicatio Abib kes 22:13: local n Medical 44 anesthesia [...] 44 daily. Center calcium 2018-03 Yes 667mg Q.86807698 Take [address] [facility] [address] acetate 1-21 [id number] mg by [facility] (PHOSLO) 22:13: 3D mouth 3 Medica l 667 mg 44 (three) Center capsule times daily. aspirin 325 2018-03 Yes acute 325mg QD Take [address] [facility] MG tablet 1-21 myocardial mg by Mike es 22:13: infarction mouth Medica l 44 daily. Center cloNIDine 2018-03 Yes hypertensio .2mg Q.[id number] Take 0.[address] [facility] HCl 1-21 n [id number] mg by [facility] (CATAPRES) 22:13: 3D mouth [...] Center gram/dose powder amino 2018-03 Yes 30mL Q.[id number] Take [address] [facility] acids-prote 1-21 0648585966 mLs by [facility] in 22:13: 3D mouth [...] needed for Pain. calcium 2018-03 Yes 667mg Q.67587609 Take [address] [address] acetate 1- [id number] mg by [facility] (PHOSLO) 22:13: 3D mouth [...] 44 daily. Center calcium 2018-03 Yes 667mg Q.79730495 Take [address] [address] acetate 1-21 [id number] mg by [facility] (PHOSLO) 22:13: 3D mouth 3 Medica l 667 mg 44 (three) Center capsule times daily. cloNIDine 2018-03 Yes hypertensio .2mg Q.[id number] Take 0.[address] [facility] [address] HCl 1-21 n [id number] mg by [facility] (CATAPRES) 22:13: 3D mouth 3 Medi ellyn 0.2 MG 44 (three) Center tablet times daily. cloNIDine 2018-03 Yes hypertensio .2mg Q.[id number] Take 0.[address] [facility] HCl 1-21 n [id number] mg by [facility] (CATAPRES) 22:13: 3D mouth [...] Center gram/dose powder amino 2018-03 Yes 30mL Q.[id number] Take [address] [facility] acids-prote 1-21 [id number] mLs by [facility] in 22:13: 3D mouth [...] 44 daily. Center calcium 2018-03 Yes 667mg Q.[id number] Take [address] [address] acetate 1-21 [id number] mg by [facility] (PHOSLO) 22:13: 3D mouth 3 Medica l 667 mg 44 (three) Center capsule times daily. cloNIDine 2018-03 Yes hypertensio .2mg Q.[id number] Take 0.[address] [facility] HCl 1-21 n [id number] mg by [facility] (CATAPRES) 22:13: 3D mouth [...] Center gram/dose powder amino 2018-03 Yes 30mL Q.[id number] Take [address] [facility] acids-prote 1-21 [id number] mLs by [facility] in 22:13: 3D mouth [...] MG tablet 22:13: daily. Medi ellyn 44 [place] lisinopril 2018-03 Yes 40mg QD Take [address] (PRINIVIL,Z 1-21 by mouth Luke s ESTRIL) 40 22:13: daily. Medic al MG tablet 44 [place] zinc 2018-03 Yes 220mg QD Take [address] [facility] [address] sulfate 1-21 mg by [facility] (ZINCATE) 22:13: mouth Medical 220 (50) mg 44 daily. [place] capsule cetirizine 2018-03 Yes 10mg QD Take [...] 44 daily. Center calcium 2018-03 Yes 667mg Q.28020565 Take [address] [address] acetate 1-21 [id number] mg by [facility] (PHOSLO) 22:13: 3D mouth 3 Medica l 667 mg 44 (three) Center capsule times daily. cloNIDine 2018-03 Yes hypertensio .2mg Q.[id number] Take 0.[address] [facility] [address] HCl 1-21 n [id number] mg by [facility] (CATAPRES) 22:13: 3D mouth [...] al MG tablet 44 Center melatonin 3 2019-1 Yes 3mg Take 3 mg C HI [...] Center gram/dose powder amino 2018-03 Yes 30mL Q.23015068 Take [address] [facility] acids-prote 1-21 3447004467 mLs by [facility] in 22:13: 3D mouth [...] MG tablet 22:13: daily. Medi ellyn 44 [place] zinc 2018-03 Yes 220mg QD Take [address] [facility] [address] sulfate 1-21 mg by [facility] (ZINCATE) 22:13: mouth Medical 220 (50) mg 44 daily. [place] capsule omeprazole 2018-03 Yes 20mg QD Take [address] (PRILOSEC 1-21 by mouth [facility] OTC) 20 MG 22:13: daily. Medic al tablet 44 [place] cetirizine 2018-03 Yes 10mg QD Take [address] (ZYRTEC) 10 1-21 by mouth Luke s MG tablet 22:13: daily. Medica l 44 [place] lidocaine 3 2018-03 Yes administrat 1{appli Apply [...] 44 daily. Center calcium 2018-03 Yes 667mg Q.[id number] Take [address] acetate 1-21 [id number] mg by [facility] (PHOSLO) 22:13: 3D mouth 3 Medica l 667 mg 44 (three) Center capsule times daily. cloNIDine 2018-03 Yes hypertensio .2mg Q.[id number] Take 0.[address] [facility] HCl 1-21 n [id number] mg by [facility] (CATAPRES) 22:13: 3D mouth [...] Center gram/dose powder amino 2018-03 Yes 30mL Q.[id number] Take [address] [facility] acids-prote 1-21 [id number] mLs by [facility] in 22:13: 3D mouth [...] tablet 22:13: daily. Medica l 44 Center amino 2018-03 Yes 30mL Q.[id number] Take [address] [facility] acids-prote 1-21 2270698882 mLs by [facility] in 22:13: 3D mouth [...] 44 daily. Center calcium 2018-03 Yes 667mg Q.[id number] Take [address] acetate 1-21 [id number] mg by [facility] (PHOSLO) 22:13: 3D mouth 3 Medica l 667 mg 44 (three) Center capsule times daily. cloNIDine 2018-03 Yes hypertensio .2mg Q.[id number] Take 0.[address] [facility] HCl 1-21 n [id number] mg by [facility] (CATAPRES) 22:13: 3D mouth [...] 22:13: daily. Medic al MG tablet 44 [place] melatonin 3 2018-03 Yes 3mg Take [address] mg Tab 1-21 by mouth [facility] tablet 22:13: every Medical 44 night as Center needed. omeprazole 2018-03 Yes 20mg QD Take [address] (PRILOSEC 1-21 by mouth [facility] OTC) 20 MG 22:13: daily. Medic al tablet 44 [place] polyethylen 2018-03 Yes 17g QD Take [address] e glycol 1-21 by mouth [facility] (GLYCOLAX) 22:13: daily. Medic al 17 44 Center gram/dose powder amino 2018-03 Yes 30mL Q.[id number] Take [address] [facility] acids-prote 1-21 7024848549 mLs by [facility] in 22:13: 3D mouth [...] 44 daily. Center calcium 2018-03 Yes 667mg Q.79330079 Take [address] [address] acetate 1-21 [id number] mg by [facility] (PHOSLO) 22:13: 3D mouth 3 Medica l 667 mg 44 (three) Center capsule times daily. cloNIDine 2018-03 Yes hypertensio .2mg Q.[id number] Take 0.[address] [facility] HCl 1-21 n [id number] mg by [facility] (CATAPRES) 22:13: 3D mouth 3 Medi ellyn 0.2 MG 44 (three) Center tablet times daily. carvedilol 2018-03 Yes hypertensio 25mg Take [address] [facility] (COREG) 25 1-21 n by mouth 2 Mike es MG tablet 22:13: (two) Medical 44 times Center daily with breakfast and dinner. acetaminoph 2018-03 Yes 1000mg Take 1,[address] [facility] en 1-21 mg by [facility] (TYLENOL) 22:13: mouth Medical 500 MG 44 every 6 Center tablet (six) hours as needed for Pain. lactulose 2018-03 Yes constipatio 20g Take 20 [...] Center gram/dose powder amino 2018-03 Yes 30mL Q.[id number] Take [address] [facility] acids-prote 1-21 [id number] mLs by [facility] in 22:13: 3D mouth [...] mouth [facility] 5 MG tablet 22:13: daily. [address] warfarin 2018-03 Yes 5mg QD Take [address] [facility] (COUMADIN) 1-21 by mouth [facility] 5 MG tablet 22:13: daily. [address] zinc 2018-03 Yes 220mg QD Take 220 [...] daily. Center capsule calcium 2018-03 Yes 667mg Q.[id number] Take [address] acetate 1-21 [id number] mg by [facility] (PHOSLO) 22:13: 3D mouth 3 Medica l 667 mg 44 (three) Center capsule times daily. cloNIDine 2018-03 Yes hypertensio .2mg Q.[id number] Take 0.[address] [facility] HCl 1-21 n [id number] mg by [facility] (CATAPRES) 22:13: 3D mouth [...] Center gram/dose powder amino 2018-03 Yes 30mL Q.[id number] Take [address] [facility] acids-prote 1-21 [id number] mLs by [facility] in 22:13: 3D mouth [...] MG tablet 22:13: daily. Medica l 44 [place] traMADol 2018-03 Yes 50mg Take 50 mg [...] MG tablet 22:13: daily. Medi ellyn 44 [place] zinc 2018-03 Yes 220mg QD Take 220 [...] 44 daily. Center calcium 2018-03 Yes 667mg Q.00859623 Take [address] [address] acetate 1-21 [id number] mg by [facility] (PHOSLO) 22:13: 3D mouth 3 Medica l 667 mg 44 (three) Center capsule times daily. lidocaine 3 2018-03 Yes administrat 1{appli Apply [address] [facility] % Crea 1-21 ion of cation} applicatio Abbi ke 22:13: local n Medical [address] cloNIDine 2018-03 Yes hypertensio .2mg Q.[id number] Take 0.[address] [facility] HCl 1-21 n [id number] mg by [facility] (CATAPRES) 22:13: 3D mouth 3 Medi ellyn 0.2 MG 44 (three) Center tablet times daily. carvedilol 2018-03 Yes hypertensio 25mg Take [address] [facility] (COREG) 25 1-21 n by mouth 2 Mike es MG tablet 22:13: (two) Medical 44 times Center daily with breakfast and dinner. lactulose 2019-1 Yes constipatio 20g Take 20 g [facility] [...] Center gram/dose powder amino 2018-03 Yes 30mL Q.[id number] Take [address] [facility] acids-prote 1-21 2366285263 mLs by [facility] in 22:13: 3D mouth [...] mouth Medical 220 (50) mg 44 daily. [place] capsule cetirizine 2018-03 Yes 10mg QD Take [...] 44 daily. Center calcium 2018-03 Yes 667mg Q.69365058 Take [address] acetate 1-21 [id number] mg by [facility] (PHOSLO) 22:13: 3D mouth 3 Medica l 667 mg 44 (three) Center capsule times daily. cloNIDine 2018-03 Yes hypertensio .2mg Q.[id number] Take 0.[address] [facility] [address] HCl 1-21 n [id number] mg by [facility] (CATAPRES) 22:13: 3D mouth [...] Center gram/dose powder amino 2018-03 Yes 30mL Q.[id number] Take [address] [facility] acids-prote 1-21 [id number] mLs by [facility] in 22:13: 3D mouth [...] 44 daily. Center calcium 2018-03 Yes 667mg Q.29051300 Take [address] acetate 1-21 [id number] mg by [facility] (PHOSLO) 22:13: 3D mouth 3 Medica l 667 mg 44 (three) Center capsule times daily. cloNIDine 2018-03 Yes hypertensio .2mg Q.06251855 Take 0.[address] [facility] HCl 1-21 n [id number] mg by [facility] (CATAPRES) 22:13: 3D mouth [...] Center gram/dose powder amino 2018-03 Yes 30mL Q.30981302 Take [address] [facility] acids-prote 1-21 [id number] mLs by [facility] in 22:13: 3D mouth [...] 44 daily. Center calcium 2018-03 Yes 667mg Q.[id number] Take [address] acetate 1-21 [id number] mg by [facility] (PHOSLO) 22:13: 3D mouth 3 Medica l 667 mg 44 (three) Center capsule times daily. cloNIDine 2018-03 Yes hypertensio .2mg Q.[id number] Take 0.[address] [facility] HCl 1-21 n [id number] mg by [facility] (CATAPRES) 22:13: 3D mouth [...] Center gram/dose powder amino 2018-03 Yes 30mL Q.[id number] Take [address] [facility] acids-prote 1-21 3143960394 mLs by [facility] in 22:13: 3D mouth [...] 44 daily. Center calcium 2018-03 Yes 667mg Q.07306788 Take [address] acetate 1-21 [id number] mg by [facility] (PHOSLO) 22:13: 3D mouth 3 Medica l 667 mg 44 (three) Center capsule times daily. cloNIDine 2018-03 Yes hypertensio .2mg Q.[id number] Take 0.[address] [facility] [address] HCl 1-21 n [id number] mg by [facility] (CATAPRES) 22:13: 3D mouth 3 Medi ellyn 0.2 MG 44 (three) Center tablet times daily. carvedilol 2018-03 Yes hypertensio 25mg Take [address] [facility] (COREG) 25 1-21 n by mouth 2 Mike es MG tablet 22:13: (two) Medical 44 times Center daily with breakfast and dinner. zinc 2018-03 Yes 220mg QD Take [address] [address] sulfate 1-21 mg by [facility] (ZINCATE) 22:13: mouth Medical 220 (50) mg 44 daily. Center capsule lactulose 2018-03 Yes constipatio 20g Take 20 [...] Center gram/dose powder amino 2018-03 Yes 30mL Q.11831463 Take [address] [facility] acids-prote 1-21 [id number] mLs by [facility] in 22:13: 3D mouth [...] mouth Medical 500 MG 44 every 6 [place] tablet (six) hours as needed for Pain. warfarin 2018-03 Yes 5mg QD Take [address] [facility] (COUMADIN) 1-21 by mouth [facility] 5 MG tablet 22:13: daily. Medi ellyn 44 [place] cetirizine 2018-03 Yes 10mg QD Take [address] (ZYRTEC) 10 1-21 by mouth Luke [facility] MG tablet 22:13: daily. Medica l 44 [place] zinc 2018-03 Yes 220mg QD Take [address] [address] sulfate 1-21 mg by [facility] (ZINCATE) 22:13: mouth Medical 220 (50) mg 44 daily. [place] capsule cetirizine 2018-03 Yes 10mg QD Take [address] (ZYRTEC) 10 1-21 by mouth Luke s MG tablet 22:13: daily. Medica l 44 [place] lidocaine 3 2018-03 Yes administrat 1{appli Apply [address] [facility] % Crea 1-21 ion of cation} applicatio [facility] 22:13: local n Medical [address] [facility] [address] lidocaine 3 2018-03 Yes administrat 1{appli Apply [address] [facility] % Crea 1-21 ion of cation} applicatio [facility] 22:13: local n Medical anesthesia topically. [facility] ter amLODIPine 2018-03 Yes hypertensio 5mg QD Take [address] [facility] (NORVASC) 1-21 n by mouth [facility] 10 MG 22:13: daily. Medical tablet 44 [place] hydroxyprop 2018-03 Yes dry eye 1[drp] Q.5D Place [address] [facility] yl 1-21 drop [address] [facility] methylcellu 22:13: both eyes M edical lose 44 2 (two) Center (ISOPTO times TEARS) 2.5 daily % Artificial ophthalmic tears solution solution 0.4% (hypromell ose) . aspirin 325 2018-03 Yes acute 325mg QD Take [address] [facility] MG tablet 1-21 myocardial mg by Mike es 22:13: infarction mouth Medica l 44 daily. [place] calcium 2018-03 Yes 667mg Q.92804813 Take [address] acetate 1-21 [id number] mg by [facility] (PHOSLO) 22:13: 3D mouth 3 Medica l 667 mg 44 (three) Center capsule times daily. cloNIDine 2018-03 Yes hypertensio .2mg Q.[id number] Take 0.[address] HCl 1-21 n [id number] mg by [facility] (CATAPRES) 22:13: 3D mouth [...] Center gram/dose powder amino 2018-03 Yes 30mL Q.[id number] Take [address] [facility] acids-prote 1-21 0408550424 mLs by [facility] in 22:13: 3D mouth [...] 44 daily. Center calcium 2018-03 Yes 667mg Q.[id number] Take [address] acetate 1-21 [id number] mg by [facility] (PHOSLO) 22:13: 3D mouth 3 Medica l 667 mg 44 (three) Center capsule times daily. cloNIDine 2018-03 Yes hypertensio .2mg Q.[id number] Take 0.[address] [address] HCl 1-21 n [id number] mg by [facility] (CATAPRES) 22:13: 3D mouth [...] Center gram/dose powder amino 2018-03 Yes 30mL Q.[id number] Take [address] [facility] acids-prote 1-21 4385887611 mLs by [facility] in 22:13: 3D mouth [...] % Crea 1-21 ion of cation} applicatio Babi kes 22:13: local n Medical 44 anesthesia [...] 22:13: infarction mouth Medica l 44 daily. [place] calcium 2018-03 Yes 667mg Q.45557439 Take [address] acetate 1-21 [id number] mg by [facility] (PHOSLO) 22:13: 3D mouth 3 Medica l 667 mg 44 (three) Center capsule times daily. cloNIDine 2018-03 Yes hypertensio .2mg Q.78672588 Take 0.[address] [address] HCl 1-21 n [id number] mg by [facility] (CATAPRES) 22:13: 3D mouth [...] Center gram/dose powder amino 2018-03 Yes 30mL Q.14782854 Take [address] acids-prote 1-21 [id number] mLs by [facility] in 22:13: 3D mouth [...] mouth Medical 220 (50) mg 44 daily. [place] capsule cetirizine 2018-03 Yes 10mg QD Take [...] 44 daily. Center calcium 2018-03 Yes 667mg Q.82906162 Take [address] acetate 1-21 [id number] mg by [facility] (PHOSLO) 22:13: 3D mouth 3 Medica l 667 mg 44 (three) Center capsule times daily. cloNIDine 2018-03 Yes hypertensio .2mg Q.95840552 Take 0.[address] [address] HCl 1-21 n [id number] mg by [facility] (CATAPRES) 22:13: 3D mouth [...] Medic al 17 44 Center gram/dose powder amLODIPine 2018-03 Yes hypertensio 5mg QD Take [address] [facility] (NORVASC) 1-21 n by mouth [facility] 10 MG 22:13: daily. Medical tablet 44 Center amino 2018-03 Yes 30mL Q.[id number] Take [address] [facility] acids-prote 1-21 9422908183 mLs by [facility] in 22:13: 3D mouth [...] daily. Medica l 44 Center lidocaine 3 2019-1 Yes administrat 1{appli Apply [address] [facility] % Crea 1-21 ion of cation} applicatio Abbi kes 22:13: local n Medical [address] hydroxyprop 2018-03 Yes dry eye 1[drp] Q.5D [...] 44 daily. Center calcium 2018-03 Yes 667mg Q.77897364 Take [address] acetate 1-21 [id number] mg by [facility] (PHOSLO) 22:13: 3D mouth 3 Medica l 667 mg 44 (three) Center capsule times daily. cloNIDine 2018-03 Yes hypertensio .2mg Q.[id number] Take 0.[address] [address] HCl 1-21 n [id number] mg by [facility] (CATAPRES) 22:13: 3D mouth [...] Center gram/dose powder amino 2018-03 Yes 30mL Q.89431157 Take [address] [facility] acids-prote 1-21 [id number] mLs by [facility] in 22:13: 3D mouth [...] mouth Medical 220 (50) mg 44 daily. [place] capsule cetirizine 2018-03 Yes 10mg QD Take [...] 44 daily. Center calcium 2018-03 Yes 667mg Q.34153704 Take [address] acetate 1-21 [id number] mg by [facility] (PHOSLO) 22:13: 3D mouth 3 Medica l 667 mg 44 (three) Center capsule times daily. cloNIDine 2018-03 Yes hypertensio .2mg Q.[id number] Take 0.[address] [address] HCl 1-21 n [id number] mg by [facility] (CATAPRES) 22:13: 3D mouth [...] Center gram/dose powder amino 2018-03 Yes 30mL Q.[id number] Take [address] [facility] acids-prote 1-21 3389536029 mLs by [facility] in 22:13: 3D mouth 3 Medical hydr-fiber 44 (three) Center 15 gram- times 100 kcal/30 daily. mL LiPk senna 2019-1 Yes 2{tbl} Q.5D Take [address] [facility] [...] [place] 00 daily. Medical Branch aspirin 81 2017-0 3- No 81mg Take 1 [facility] ers mg chewable 1-26 03-27 tablet by it y of tablet 00:00: 00:00 mouth [place] 00 :00 daily. Medical Branch multivitami 2018-0 Yes 1{capsu Take 1 U nivers n capsule 1-25 le} capsule by ity of 17:56: mouth [place] 44 daily. Medical Branch isosorbide 2017- Yes [id number] 30mg Take 1 [facility] mononitrate 1-25 tablet by ity of (IMDUR) 30 00:00: mouth [place] mg 24 hr 00 daily. Medical tablet Branch sevelamer Yes 1600mg Take 2 [facility] ers 800 mg 1-25 tablets by ity of tablet 00:00: mouth 3 [place] 00 (three) Medical times Branch daily with meals. amLODIPine Yes 10mg Take 1 [facility] 10 mg 1-25 tablet by ity of tablet 00:00: mouth [place] 00 daily. Medical Branch atorvastati Yes 40mg Take 1 [facility] ers n 40 mg 1-25 tablet ity of tablet 00:00: through [place] 00 enteral Medical tube at Branch bedtime. carvedilol 2017- Yes 25mg Take 1 [facility] 25 mg 1-25 tablet by ity of tablet 00:00: mouth 2 [place] 00 (two) Medical times Branch daily with meals. hydralAZINE Yes 10mg Take 1 [facility] ers 10 mg 1-25 tablet by ity of tablet 00:00: mouth [place] 00 every 8 Medical (eight) Branch hours. isosorbide Yes [id number] 30mg Take 1 [facility] mononitrate 1-25 tablet by ity of (IMDUR) 30 00:00: mouth [place] mg 24 hr 00 daily. Medical tablet Branch sevelamer Yes 1600mg Take 2 [facility] ers 800 mg 1-25 tablets by ity of tablet 00:00: mouth 3 [place] 00 (three) Medical times Branch daily with meals. amLODIPine Yes 10mg Take 1 [facility] 10 mg 1-25 tablet by ity of tablet 00:00: mouth [place] 00 daily. Medical Branch atorvastati 2017- Yes 40mg Take 1 [facility] ers n [...] Medical (eight) Branch hours. isosorbide 2018-0 Yes [id number] 30mg Take 1 [facility] mononitrate 1-25 tablet [...] Medical (eight) Branch hours. isosorbide 2018-0 Yes [id number] 30mg Take 1 [facility] mononitrate 1-25 tablet [...] Medical (eight) Branch hours. isosorbide 2018-0 Yes [id number] 30mg Take 1 [facility] mononitrate 1-25 tablet [...] Medical (eight) Branch hours. isosorbide 2018-0 Yes [id number] 30mg Take 1 [facility] mononitrate 1-25 tablet [...] Medical (eight) Branch hours. isosorbide 2018-0 Yes [id number] 30mg Take 1 [facility] mononitrate 1-25 tablet [...] Medical (eight) Branch hours. isosorbide 2018-0 Yes [id number] 30mg Take 1 [facility] mononitrate 1-25 tablet [...] Medical (eight) Branch hours. isosorbide 2018-0 Yes [id number] 30mg Take 1 [facility] mononitrate 1-25 tablet [...] Medical (eight) Branch hours. isosorbide 2018-0 Yes [id number] 30mg Take 1 [facility] mononitrate 1-25 tablet [...] Medical (eight) Branch hours. isosorbide 2018-0 Yes [id number] 30mg Take 1 [facility] mononitrate 1-25 tablet [...] Medical (eight) Branch hours. isosorbide 2018-0 Yes [id number] 30mg Take 1 [facility] mononitrate 1-25 tablet [...] Medical (eight) Branch hours. isosorbide 2018-0 Yes [id number] 30mg Take 1 [facility] mononitrate 1-25 tablet [...] Medical (eight) Branch hours. isosorbide 2018-0 Yes [id number] 30mg Take 1 [facility] mononitrate 1-25 tablet [...] Medical (eight) Branch hours. isosorbide 2018-0 Yes [id number] 30mg Take 1 [facility] mononitrate 1-25 tablet [...] Medical (eight) Branch hours. isosorbide 2018-0 Yes [id number] 30mg Take 1 [facility] mononitrate 1-25 tablet [...] Medical (eight) Branch hours. isosorbide 2018-0 Yes [id number] 30mg Take 1 [facility] mononitrate 1-25 tablet [...] Medical (eight) Branch hours. isosorbide 2018-0 Yes [id number] 30mg Take 1 [facility] mononitrate 1-25 tablet [...] 00 every 8 Medical (eight) Branch hours. pantoprazol 2017-0 2023- No 40mg Take 1 Uni vers e [...] daily. ergocalcife ergocalcife No ergocalcif [facility] rol [...] nasal mcg/actuat spray,suspe spray,suspe ion nasal nsion [place] nsion [place] spray,susp 1 spray 1 spray ension every day every day [place] 1 by nasal by nasal spray route [...] once a day dialysis dialysis at dialysis [facility] [place] via 8.4 gram 8.4 [...] nasal mcg/actuat spray,suspe spray,suspe ion nasal nsion [place] nsion [place] spray,susp 1 spray 1 spray ension every day every day [place] 1 by nasal by nasal spray route [...] once a day dialysis dialysis at dialysis [facility] No [facility] [place] via 8.4 gram 8.4 gram 8.4 [...] route. ergocalcife ergocalcife No ergocalcif [facility] (vitamin (vitamin (vitamin D2) 1,250 D2) [...] nasal mcg/actuat spray,suspe spray,suspe ion nasal nsion [place] nsion [place] spray,susp 1 spray 1 spray ension every day every day [place] 1 by nasal by nasal spray route [...] once a day dialysis dialysis at dialysis [facility] No [facility] [place] via 8.4 gram 8.4 gram 8.4 [...] nasal mcg/actuat spray,suspe spray,suspe ion nasal nsion [place] nsion [place] spray,susp 1 spray 1 spray ension every day every day [place] 1 by nasal by nasal spray route [...] nasal mcg/actuat spray,suspe spray,suspe ion nasal nsion [place] nsion [place] spray,susp 1 spray 1 spray ension every day every day [place] 1 by nasal by nasal spray route [...] nasal mcg/actuat spray,suspe spray,suspe ion nasal nsion [place] nsion [place] spray,susp 1 spray 1 spray ension every day every day [place] 1 by nasal by nasal spray route [...] atorvastati No 1 Q1D atorvastat [facility] n 40 mg n 40 mg in 40 mg [facility] al tablet Take tablet Take tablet 1 tablet 1 tablet Take 1 every day every day tablet by oral by oral every day route. route. by oral route. calcium calcium No 3 TID calcium [facility] [...] 30 days. with meals for 30 days. carvedilol carvedilol No 1 BID carvedilol [facility] 25 mg 25 mg 25 mg [facility] tablet Take tablet Take tablet 1 tablet 1 tablet Take 1 twice a day twice a day tablet by oral by oral twice a route. route. day by oral route. ferrous ferrous No 1 BID ferrous [facility] sulfate 325 sulfate 325 sulfate [facility] mg (65 mg mg (65 mg 325 mg (65 iron) iron) mg iron) tablet Take tablet Take tablet 1 tablet 1 tablet Take 1 twice a day twice a day tablet by oral by oral twice a route. route. day by oral route. gabapentin gabapentin No gabapentin [facility] 100 mg 100 mg 100 mg [facility] capsule capsule capsule TAKE 2 TAKE 2 TAKE 2 CAPSULES BY CAPSULES BY CAPSULES MOUTH IN MOUTH IN BY MOUTH THE MORNING THE MORNING IN THE AND 2 AND 2 MORNING CAPSULES AT CAPSULES AT AND 2 NOON AND 2 NOON AND 2 CAPSULES CAPSULES IN CAPSULES IN AT NOON THE THE AND 2 EVENING. DO EVENING. DO CAPSULES ALL THIS ALL THIS IN THE FOR 7 DAYS. FOR 7 DAYS. EVENING. DO ALL THIS FOR 7 DAYS. hydralazine hydralazine No 1 TID hydralazin [facility] 10 mg 10 mg e 10 mg [facility] tablet Take tablet Take tablet 1 tablet 3 1 tablet 3 Take 1 times a day times a day tablet 3 by oral by oral times a route. route. day by oral route. isosorbide isosorbide No 1 Q1D isosorbide [facility] mononitrate mononitrate mononitrat [facility] ER 30 mg ER 30 mg e ER 30 mg tablet,exte tablet,exte tablet,ext nded nded ended release 24 release 24 release 24 hr Take 1 hr Take 1 hr Take 1 tablet tablet tablet every day every day every day by oral by oral by oral route. route. route. lactulose lactulose No lactulose [facility] 10 gram/15 10 gram/15 10 gram/15 Medical mL oral mL oral mL oral solution solution solution Take 30 mL Take 30 mL Take 30 mL every day every day every day by oral by oral by oral route as route as route as needed for needed for needed for 15 days. 15 days. 15 days. magnesium magnesium No 2 BID magnesium [facility] oxide 400 oxide 400 oxide 400 Medical mg (241.3 mg (241.3 mg (241.3 mg mg mg magnesium) magnesium) magnesium) tablet Take tablet Take tablet 2 tablets 2 tablets Take 2 twice a day twice a day tablets by oral by oral twice a route. route. day by oral route. pantoprazol pantoprazol No 1 BID pantoprazo [facility] e 40 mg e 40 mg le 40 mg Medic al tablet,joy tablet,joy tablet,del yed release yed release ayed Take 1 Take 1 release tablet tablet Take 1 twice a day twice a day tablet by oral by oral twice a route. route. day by oral route. sertraline sertraline No sertraline [facility] 100 mg 100 mg 100 mg [facility] tablet Take tablet Take tablet 1 tablet 1 tablet Take 1 every day every day tablet by oral by oral every day route at route at by oral bedtime for bedtime for route at 30 days. 30 days. bedtime for 30 days. acetaminoph acetaminoph No 1 BID acetaminop [facility] [...] atorvastati No 1 Q1D atorvastat [facility] n 40 mg n 40 mg in 40 mg [facility] al tablet Take tablet Take tablet 1 tablet 1 tablet Take 1 every day every day tablet by oral by oral every day route. route. by oral route. calcium calcium No 3 TID calcium [facility] [...] 30 days. with meals for 30 days. carvedilol carvedilol No 1 BID carvedilol [facility] 25 mg 25 mg 25 mg [facility] tablet Take tablet Take tablet 1 tablet 1 tablet Take 1 twice a day twice a day tablet by oral by oral twice a route. route. day by oral route. ferrous ferrous No 1 BID ferrous [facility] sulfate 325 sulfate 325 sulfate Medical mg (65 mg mg (65 mg 325 mg (65 iron) iron) mg iron) tablet Take tablet Take tablet 1 tablet 1 tablet Take 1 twice a day twice a day tablet by oral by oral twice a route. route. day by oral route. gabapentin gabapentin No gabapentin [facility] 100 mg 100 mg 100 mg [facility] capsule capsule capsule TAKE 2 TAKE 2 TAKE 2 CAPSULES BY CAPSULES BY CAPSULES MOUTH IN MOUTH IN BY MOUTH THE MORNING THE MORNING IN THE AND 2 AND 2 MORNING CAPSULES AT CAPSULES AT AND 2 NOON AND 2 NOON AND 2 CAPSULES CAPSULES IN CAPSULES IN AT NOON THE THE AND 2 EVENING. DO EVENING. DO CAPSULES ALL THIS ALL THIS IN THE FOR 7 DAYS. FOR 7 DAYS. EVENING. DO ALL THIS FOR 7 DAYS. hydralazine hydralazine No 1 TID hydralazin [facility] 10 mg 10 mg e 10 mg [facility] tablet Take tablet Take tablet 1 tablet 3 1 tablet 3 Take 1 times a day times a day tablet 3 by oral by oral times a route. route. day by oral route. isosorbide isosorbide No 1 Q1D isosorbide [facility] mononitrate mononitrate mononitrat [facility] ER 30 mg ER 30 mg e ER 30 mg tablet,exte tablet,exte tablet,ext nded nded ended release 24 release 24 release 24 hr Take 1 hr Take 1 hr Take 1 tablet tablet tablet every day every day every day by oral by oral by oral route. route. route. lactulose lactulose No lactulose [facility] 10 gram/15 10 gram/15 10 gram/15 Medical mL oral mL oral mL oral solution solution solution Take 30 mL Take 30 mL Take 30 mL every day every day every day by oral by oral by oral route as route as route as needed for needed for needed for 15 days. 15 days. 15 days. magnesium magnesium No 2 BID magnesium [facility] oxide 400 oxide 400 oxide 400 Medical mg (241.3 mg (241.3 mg (241.3 mg mg mg magnesium) magnesium) magnesium) tablet Take tablet Take tablet 2 tablets 2 tablets Take 2 twice a day twice a day tablets by oral by oral twice a route. route. day by oral route. pantoprazol pantoprazol No 1 BID pantoprazo [facility] e 40 mg e 40 mg le 40 mg Medic al tablet,joy tablet,joy tablet,del yed release yed release ayed Take 1 Take 1 release tablet tablet Take 1 twice a day twice a day tablet by oral by oral twice a route. route. day by oral route. acetaminoph acetaminoph No 1 BID acetaminop [facility] [...] days. 30 days. route for 30 days. ammonium ammonium No ammonium [place] via lactate 12 lactate 12 lactate 12 Medical % lotion % lotion % lotion APPLY THIN APPLY THIN APPLY THIN LAYER TO LAYER TO LAYER TO AFFECTED AFFECTED AFFECTED SKIN ON THE SKIN ON THE SKIN ON LOWER LEGS LOWER LEGS THE LOWER TWICE A DAY TWICE A DAY LEGS TWICE A DAY atorvastati atorvastati No 1 Q1D atorvastat [facility] n 40 mg n 40 mg in 40 mg [facility] al tablet Take tablet Take tablet 1 tablet 1 tablet Take 1 every day every day tablet by oral by oral every day route. route. by oral route. calcium calcium No 3 TID calcium [facility] [...] 30 days. with meals for 30 days. carvedilol carvedilol No 1 BID carvedilol [facility] 25 mg 25 mg 25 mg [facility] tablet Take tablet Take tablet 1 tablet 1 tablet Take 1 twice a day twice a day tablet by oral by oral twice a route. route. day by oral route. doxycycline doxycycline No 1capsul BID doxycyclin [facility] hyclate 100 hyclate 100 e(s) e hyclate Medical mg capsule mg capsule 100 mg Take 1 Take 1 capsule capsule capsule Take 1 twice a day twice a day capsule by oral by oral twice a route for route for day by 10 days. 10 days. oral route for 10 days. ferrous ferrous No 1 BID ferrous [facility] sulfate 325 sulfate 325 sulfate Medical mg (65 mg mg (65 mg 325 mg (65 iron) iron) mg iron) tablet Take tablet Take tablet 1 tablet 1 tablet Take 1 twice a day twice a day tablet by oral by oral twice a route. route. day by oral route. gabapentin gabapentin No gabapentin [facility] 100 mg 100 mg 100 mg [facility] capsule capsule capsule TAKE 2 TAKE 2 TAKE 2 CAPSULES BY CAPSULES BY CAPSULES MOUTH IN MOUTH IN BY MOUTH THE MORNING THE MORNING IN THE AND 2 AND 2 MORNING CAPSULES AT CAPSULES AT AND 2 NOON AND 2 NOON AND 2 CAPSULES CAPSULES IN CAPSULES IN AT NOON THE THE AND 2 EVENING. DO EVENING. DO CAPSULES ALL THIS ALL THIS IN THE FOR 7 DAYS. FOR 7 DAYS. EVENING. DO ALL THIS FOR 7 DAYS. hydralazine hydralazine No 1 TID hydralazin [facility] 10 mg 10 mg e 10 mg [facility] tablet Take tablet Take tablet 1 tablet 3 1 tablet 3 Take 1 times a day times a day tablet 3 by oral by oral times a route. route. day by oral route. isosorbide isosorbide No 1 Q1D isosorbide [facility] mononitrate mononitrate mononitrat [facility] ER 30 mg ER 30 mg e ER 30 mg tablet,exte tablet,exte tablet,ext nded nded ended release 24 release 24 release 24 hr Take 1 hr Take 1 hr Take 1 tablet tablet tablet every day every day every day by oral by oral by oral route. route. route. lactulose lactulose No lactulose [facility] 10 gram/15 10 gram/15 10 gram/15 Medical mL oral mL oral mL oral solution solution solution Take 30 mL Take 30 mL Take 30 mL every day every day every day by oral by oral by oral route as route as route as needed for needed for needed for 15 days. 15 days. 15 days. magnesium magnesium No 2 BID magnesium [facility] oxide 400 oxide 400 oxide 400 Medical mg (241.3 mg (241.3 mg (241.3 mg mg mg magnesium) magnesium) magnesium) tablet Take tablet Take tablet 2 tablets 2 tablets Take 2 twice a day twice a day tablets by oral by oral twice a route. route. day by oral route. pantoprazol pantoprazol No 1 BID pantoprazo [facility] e 40 mg e 40 mg le 40 mg Medic al tablet,joy tablet,joy tablet,del yed release yed release ayed Take 1 Take 1 release tablet tablet Take 1 twice a day twice a day tablet by oral by oral twice a route. route. day by oral route. acetaminoph acetaminoph No 1 BID acetaminop [facility] [...] days. 30 days. route for 30 days. ammonium ammonium No ammonium [place] via lactate 12 lactate 12 lactate 12 Medical % lotion % lotion % lotion APPLY THIN APPLY THIN APPLY THIN LAYER TO LAYER TO LAYER TO AFFECTED AFFECTED AFFECTED SKIN ON THE SKIN ON THE SKIN ON LOWER LEGS LOWER LEGS THE LOWER TWICE A DAY TWICE A DAY LEGS TWICE A DAY atorvastati atorvastati No 1 Q1D atorvastat [facility] n 40 mg n 40 mg in 40 mg [facility] al tablet Take tablet Take tablet 1 tablet 1 tablet Take 1 every day every day tablet by oral by oral every day route. route. by oral route. calcium calcium No 3 TID calcium [facility] [...] 30 days. with meals for 30 days. carvedilol carvedilol No 1 BID carvedilol [facility] 25 mg 25 mg 25 mg [facility] tablet Take tablet Take tablet 1 tablet 1 tablet Take 1 twice a day twice a day tablet by oral by oral twice a route. route. day by oral route. Depakote Depakote No 2 Q1D Depakote [place] via 500 mg 500 mg 500 mg Medical tablet,joy tablet,joy tablet,del yed release yed release ayed Take 2 Take 2 release tablets tablets Take 2 every day every day tablets by oral by oral every day route at route at by oral bedtime. bedtime. route at bedtime. doxycycline doxycycline No 1capsul BID doxycyclin [facility] hyclate 100 hyclate 100 e(s) e hyclate Medical mg capsule mg capsule 100 mg Take 1 Take 1 capsule capsule capsule Take 1 twice a day twice a day capsule by oral by oral twice a route for route for day by 10 days. 10 days. oral route for 10 days. ferrous ferrous No 1 BID ferrous [facility] sulfate 325 sulfate 325 sulfate [facility] mg (65 mg mg (65 mg 325 mg (65 iron) iron) mg iron) tablet Take tablet Take tablet 1 tablet 1 tablet Take 1 twice a day twice a day tablet by oral by oral twice a route. route. day by oral route. gabapentin gabapentin No gabapentin [facility] 100 mg 100 mg 100 mg [facility] capsule capsule capsule TAKE 2 TAKE 2 TAKE 2 CAPSULES BY CAPSULES BY CAPSULES MOUTH IN MOUTH IN BY MOUTH THE MORNING THE MORNING IN THE AND 2 AND 2 MORNING CAPSULES AT CAPSULES AT AND 2 NOON AND 2 NOON AND 2 CAPSULES CAPSULES IN CAPSULES IN AT NOON THE THE AND 2 EVENING. DO EVENING. DO CAPSULES ALL THIS ALL THIS IN THE FOR 7 DAYS. FOR 7 DAYS. EVENING. DO ALL THIS FOR 7 DAYS. hydralazine hydralazine No 1 TID hydralazin [facility] 10 mg 10 mg e 10 mg [facility] tablet Take tablet Take tablet 1 tablet 3 1 tablet 3 Take 1 times a day times a day tablet 3 by oral by oral times a route. route. day by oral route. isosorbide isosorbide No 1 Q1D isosorbide [facility] mononitrate mononitrate mononitrat [facility] ER 30 mg ER 30 mg e ER 30 mg tablet,exte tablet,exte tablet,ext nded nded ended release 24 release 24 release 24 hr Take 1 hr Take 1 hr Take 1 tablet tablet tablet every day every day every day by oral by oral by oral route. route. route. lactulose lactulose No lactulose [facility] 10 gram/15 10 gram/15 10 gram/15 Medical mL oral mL oral mL oral solution solution solution Take 30 mL Take 30 mL Take 30 mL every day every day every day by oral by oral by oral route as route as route as needed for needed for needed for 15 days. 15 days. 15 days. magnesium magnesium No 2 BID magnesium [facility] oxide 400 oxide 400 oxide 400 Medical mg (241.3 mg (241.3 mg (241.3 mg mg mg magnesium) magnesium) magnesium) tablet Take tablet Take tablet 2 tablets 2 tablets Take 2 twice a day twice a day tablets by oral by oral twice a route. route. day by oral route. omeprazole omeprazole No 1capsul BID omeprazole [facility] 40 mg 40 mg e(s) 40 mg [facility] capsule,del capsule,del capsule,de ayed ayed layed release release release Take 1 Take 1 Take 1 capsule capsule capsule twice a day twice a day twice a by oral by oral day by route. route. oral route. sucralfate sucralfate No 10mL TID sucralfate [facility] 100 mg/mL 100 mg/mL 100 mg/mL Medical oral oral oral suspension suspension suspension Take 10 mL Take 10 mL Take 10 mL 3 times a 3 times a 3 times a day by oral day by oral day by route. route. oral route. acetaminoph acetaminoph No 1 BID acetaminop [facility] [...] days. 30 days. route for 30 days. ammonium ammonium No ammonium [place] via lactate 12 lactate 12 lactate 12 Medical % lotion % lotion % lotion APPLY THIN APPLY THIN APPLY THIN LAYER TO LAYER TO LAYER TO AFFECTED AFFECTED AFFECTED SKIN ON THE SKIN ON THE SKIN ON LOWER LEGS LOWER LEGS THE LOWER TWICE A DAY TWICE A DAY LEGS TWICE A DAY atorvastati atorvastati No 1 Q1D atorvastat [facility] n 40 mg n 40 mg in 40 mg [facility] al tablet Take tablet Take tablet 1 tablet 1 tablet Take 1 every day every day tablet by oral by oral every day route. route. by oral route. calcium calcium No 3 TID calcium [facility] [...] 30 days. with meals for 30 days. carvedilol carvedilol No 1 BID carvedilol [facility] 25 mg 25 mg 25 mg [facility] tablet Take tablet Take tablet 1 tablet 1 tablet Take 1 twice a day twice a day tablet by oral by oral twice a route. route. day by oral route. Depakote Depakote No 2 Q1D Depakote [place] via 500 mg 500 mg 500 mg Medical tablet,joy tablet,joy tablet,del yed release yed release ayed Take 2 Take 2 release tablets tablets Take 2 every day every day tablets by oral by oral every day route at route at by oral bedtime. bedtime. route at bedtime. doxycycline doxycycline No 1capsul BID doxycyclin [facility] hyclate 100 hyclate 100 e(s) e hyclate Medical mg capsule mg capsule 100 mg Take 1 Take 1 capsule capsule capsule Take 1 twice a day twice a day capsule by oral by oral twice a route for route for day by 10 days. 10 days. oral route for 10 days. ferrous ferrous No 1 BID ferrous [facility] sulfate 325 sulfate 325 sulfate [facility] mg (65 mg mg (65 mg 325 mg (65 iron) iron) mg iron) tablet Take tablet Take tablet 1 tablet 1 tablet Take 1 twice a day twice a day tablet by oral by oral twice a route. route. day by oral route. gabapentin gabapentin No gabapentin [facility] 100 mg 100 mg 100 mg [facility] capsule capsule capsule TAKE 2 TAKE 2 TAKE 2 CAPSULES BY CAPSULES BY CAPSULES MOUTH IN MOUTH IN BY MOUTH THE MORNING THE MORNING IN THE AND 2 AND 2 MORNING CAPSULES AT CAPSULES AT AND 2 NOON AND 2 NOON AND 2 CAPSULES CAPSULES IN CAPSULES IN AT NOON THE THE AND 2 EVENING. DO EVENING. DO CAPSULES ALL THIS ALL THIS IN THE FOR 7 DAYS. FOR 7 DAYS. EVENING. DO ALL THIS FOR 7 DAYS. hydralazine hydralazine No hydralazin [facility] 10 mg 10 mg e 10 mg [facility] tablet Take tablet Take tablet 1 tablet 3 1 tablet 3 Take 1 times a day times a day tablet 3 by oral by oral times a route. route. day by oral route. isosorbide isosorbide No 1 Q1D isosorbide [facility] mononitrate mononitrate mononitrat [facility] ER 30 mg ER 30 mg e ER 30 mg tablet,exte tablet,exte tablet,ext nded nded ended release 24 release 24 release 24 hr Take 1 hr Take 1 hr Take 1 tablet tablet tablet every day every day every day by oral by oral by oral route. route. route. lactulose lactulose No lactulose [facility] 10 gram/15 10 gram/15 10 gram/15 Medical mL oral mL oral mL oral solution solution solution Take 30 mL Take 30 mL Take 30 mL every day every day every day by oral by oral by oral route as route as route as needed for needed for needed for 15 days. 15 days. 15 days. magnesium magnesium No 2 BID magnesium [facility] oxide 400 oxide 400 oxide 400 Medical mg (241.3 mg (241.3 mg (241.3 mg mg mg magnesium) magnesium) magnesium) tablet Take tablet Take tablet 2 tablets 2 tablets Take 2 twice a day twice a day tablets by oral by oral twice a route. route. day by oral route. omeprazole omeprazole No 1capsul BID omeprazole [facility] 40 mg 40 mg e(s) 40 mg [facility] capsule,del capsule,del capsule,de ayed ayed layed release release release Take 1 Take 1 Take 1 capsule capsule capsule twice a day twice a day twice a by oral by oral day by route. route. oral route. pantoprazol pantoprazol No pantoprazo [facility] e 40 mg e 40 mg le 40 mg Medic al tablet,joy tablet,joy tablet,del yed release yed release ayed release SPS (with SPS (with No SPS (with [facility] sorbitol) sorbitol) sorbitol) Medical 15 gram-20 15 gram-20 15 gram-20 gram/60 mL gram/60 mL gram/60 mL oral oral oral suspension suspension suspension sucralfate sucralfate No 10mL TID sucralfate [facility] 100 mg/mL 100 mg/mL 100 mg/mL Medical oral oral oral suspension suspension suspension Take 10 mL Take 10 mL Take 10 mL 3 times a 3 times a 3 times a day by oral day by oral day by route. route. oral route. acetaminoph acetaminoph No 1 BID acetaminop [facility] [...] days. 30 days. route for 30 days. ammonium ammonium No ammonium [place] via lactate 12 lactate 12 lactate 12 Medical % lotion % lotion % lotion APPLY THIN APPLY THIN APPLY THIN LAYER TO LAYER TO LAYER TO AFFECTED AFFECTED AFFECTED SKIN ON THE SKIN ON THE SKIN ON LOWER LEGS LOWER LEGS THE LOWER TWICE A DAY TWICE A DAY LEGS TWICE A DAY atorvastati atorvastati No atorvastat [facility] n 40 mg n 40 mg in 40 mg [facility] al tablet Take tablet Take tablet 1 tablet 1 tablet Take 1 every day every day tablet by oral by oral every day route. route. by oral route. calcium calcium No 3 TID calcium [facility] [...] 30 days. with meals for 30 days. carvedilol carvedilol No carvedilol [facility] 25 mg 25 mg 25 mg [facility] tablet Take tablet Take tablet 1 tablet 1 tablet Take 1 twice a day twice a day tablet by oral by oral twice a route. route. day by oral route. divalproex divalproex No divalproex [facility] 500 mg 500 mg 500 mg [facility] tablet,joy tablet,joy tablet,del yed release yed release ayed Take 2 Take 2 release tablets tablets Take 2 every day every day tablets by oral by oral every day route at route at by oral bedtime. bedtime. route at bedtime. duloxetine duloxetine No duloxetine [facility] 30 mg 30 mg 30 mg [facility] capsule,del capsule,del capsule,de ayed ayed layed release release release Take 1 Take 1 Take 1 capsule capsule capsule every day every day every day by oral by oral by oral route. route. route. ferrous ferrous No 1 BID ferrous [facility] sulfate 325 sulfate 325 sulfate Medical mg (65 mg mg (65 mg 325 mg (65 iron) iron) mg iron) tablet Take tablet Take tablet 1 tablet 1 tablet Take 1 twice a day twice a day tablet by oral by oral twice a route. route. day by oral route. gabapentin gabapentin No gabapentin [facility] 100 mg 100 mg 100 mg [facility] capsule capsule capsule TAKE 2 TAKE 2 TAKE 2 CAPSULES BY CAPSULES BY CAPSULES MOUTH IN MOUTH IN BY MOUTH THE MORNING THE MORNING IN THE AND 2 AND 2 MORNING CAPSULES AT CAPSULES AT AND 2 NOON AND 2 NOON AND 2 CAPSULES CAPSULES IN CAPSULES IN AT NOON THE THE AND 2 EVENING. DO EVENING. DO CAPSULES ALL THIS ALL THIS IN THE FOR 7 DAYS. FOR 7 DAYS. EVENING. DO ALL THIS FOR 7 DAYS. hydralazine hydralazine No hydralazin [facility] 25 mg 25 mg e 25 mg [facility] tablet Take tablet Take tablet 1 tablet 3 1 tablet 3 Take 1 times a day times a day tablet 3 by oral by oral times a route. route. day by oral route. isosorbide isosorbide No 1 Q1D isosorbide [facility] mononitrate mononitrate mononitrat [facility] ER 30 mg ER 30 mg e ER 30 mg tablet,exte tablet,exte tablet,ext nded nded ended release 24 release 24 release 24 hr Take 1 hr Take 1 hr Take 1 tablet tablet tablet every day every day every day by oral by oral by oral route. route. route. lactulose lactulose No lactulose [facility] 10 gram/15 10 gram/15 10 gram/15 Medical mL oral mL oral mL oral solution solution solution Take 30 mL Take 30 mL Take 30 mL every day every day every day by oral by oral by oral route as route as route as needed for needed for needed for 15 days. 15 days. 15 days. magnesium magnesium No magnesium [facility] oxide 400 oxide 400 oxide 400 Medical mg (241.3 mg (241.3 mg (241.3 mg mg mg magnesium) magnesium) magnesium) tablet TAKE tablet TAKE tablet 1 TABLET BY 1 TABLET BY TAKE 1 MOUTH ONCE MOUTH ONCE TABLET BY A DAY EVERY A DAY EVERY MOUTH ONCE OTHER DAY. OTHER DAY. A DAY EVERY OTHER DAY. pantoprazol pantoprazol No pantoprazo [facility] e 40 mg e 40 mg le 40 mg Medic al tablet,joy tablet,joy tablet,del yed release yed release ayed release SPS (with SPS (with No SPS (with [facility] sorbitol) sorbitol) sorbitol) Medical 15 gram-20 15 gram-20 15 gram-20 gram/60 mL gram/60 mL gram/60 mL oral oral oral suspension suspension suspension TAKE 60ML TAKE 60ML TAKE 60ML PO ONCE A PO ONCE A PO ONCE A DAY ON DAY ON DAY ON sucralfate sucralfate No sucralfate [facility] 100 mg/mL 100 mg/mL 100 mg/mL Medical oral oral oral suspension suspension suspension Take 10 mL Take 10 mL Take 10 mL 3 times a 3 times a 3 times a day by oral day by oral day by route. route. oral route. acetaminoph acetaminoph No 1 BID acetaminop [facility] [...] nasal mcg/actuat spray,suspe spray,suspe ion nasal nsion [place] nsion [place] spray,susp 1 spray 1 spray ension every day every day [place] 1 by nasal by nasal spray route [...] at once a day dialysis dialysis at [facility] No [facility] [place] via 8.4 gram 8.4 gram 8.4 [...] nasal mcg/actuat spray,suspe spray,suspe ion nasal nsion [place] nsion [place] spray,susp 1 spray 1 spray ension every day every day [place] 1 by nasal by nasal spray route [...] nasal mcg/actuat spray,suspe spray,suspe ion nasal nsion [place] nsion [place] spray,susp 1 spray 1 spray ension every day every day [place] 1 by nasal by nasal spray route [...] nasal mcg/actuat spray,suspe spray,suspe ion nasal nsion [place] nsion [place] spray,susp 1 spray 1 spray ension every day every day [place] 1 by nasal by nasal spray route [...] nasal mcg/actuat spray,suspe spray,suspe ion nasal nsion [place] nsion [place] spray,susp 1 spray 1 spray ension every day every day [place] 1 by nasal by nasal spray route [...] nasal mcg/actuat spray,suspe spray,suspe ion nasal nsion [place] nsion [place] spray,susp 1 spray 1 spray ension every day every day [place] 1 by nasal by nasal spray route [...] nasal mcg/actuat spray,suspe spray,suspe ion nasal nsion [place] nsion [place] spray,susp 1 spray 1 spray ension every day every day [place] 1 by nasal by nasal spray route [...] nasal mcg/actuat spray,suspe spray,suspe ion nasal nsion [place] nsion [place] spray,susp 1 spray 1 spray ension every day every day [place] 1 by nasal by nasal spray route [...] nasal mcg/actuat spray,suspe spray,suspe ion nasal nsion [place] nsion [place] spray,susp 1 spray 1 spray ension every day every day [place] 1 by nasal by nasal spray route [...] nasal mcg/actuat spray,suspe spray,suspe ion nasal nsion [place] nsion [place] spray,susp 1 spray 1 spray ension every day every day [place] 1 by nasal by nasal spray route [...] nasal mcg/actuat spray,suspe spray,suspe ion nasal nsion [place] nsion [place] spray,susp 1 spray 1 spray ension every day every day [place] 1 by nasal by nasal spray route [...] nasal mcg/actuat spray,suspe spray,suspe ion nasal nsion [place] nsion [place] spray,susp 1 spray 1 spray ension every day every day [place] 1 by nasal by nasal spray route [...] nasal mcg/actuat spray,suspe spray,suspe ion nasal nsion [place] nsion [place] spray,susp 1 spray 1 spray ension every day every day [place] 1 by nasal by nasal spray route [...] nasal mcg/actuat spray,suspe spray,suspe ion nasal nsion [place] nsion [place] spray,susp 1 spray 1 spray ension every day every day [place] 1 by nasal by nasal spray route [...] nasal mcg/actuat spray,suspe spray,suspe ion nasal nsion [place] nsion [place] spray,susp 1 spray 1 spray ension every day every day [place] 1 by nasal by nasal spray route [...] nasal mcg/actuat spray,suspe spray,suspe ion nasal nsion [place] nsion [place] spray,susp 1 spray 1 spray ension every day every day [place] 1 by nasal by nasal spray route [...] nasal mcg/actuat spray,suspe spray,suspe ion nasal nsion [place] nsion [place] spray,susp 1 spray 1 spray ension every day every day [place] 1 by nasal by nasal spray route [...] dialysis thur, sat thur, sat days fri, ur, sat acetaminoph acetaminoph No 1 BID [...] nasal mcg/actuat spray,suspe spray,suspe ion nasal nsion [place] nsion [place] spray,susp 1 spray 1 spray ension every day every day [place] 1 by nasal by nasal spray route [...] as needed. ergocalcife ergocalcife No ergocalcif [facility] (vitamin (vitamin (vitamin D2) 1,250 D2) [...] nasal mcg/actuat spray,suspe spray,suspe ion nasal nsion [place] nsion [place] spray,susp 1 spray 1 spray ension every day every day [place] 1 by nasal by nasal spray route [...] nasal mcg/actuat spray,suspe spray,suspe ion nasal nsion [place] nsion [place] spray,susp 1 spray 1 spray ension every day every day [place] 1 by nasal by nasal spray route [...] nasal mcg/actuat spray,suspe spray,suspe ion nasal nsion [place] nsion [place] spray,susp 1 spray 1 spray ension every day every day [place] 1 by nasal by nasal spray route [...] nasal mcg/actuat spray,suspe spray,suspe ion nasal nsion [place] nsion [place] spray,susp 1 spray 1 spray ension every day every day [place] 1 by nasal by nasal spray route [...] nasal mcg/actuat spray,suspe spray,suspe ion nasal nsion [place] nsion [place] spray,susp 1 spray 1 spray ension every day every day [place] 1 by nasal by nasal spray route [...] nasal mcg/actuat spray,suspe spray,suspe ion nasal nsion [place] nsion [place] spray,susp 1 spray 1 spray ension every day every day [place] 1 by nasal by nasal spray route [...] once a day dialysis dialysis at dialysis [facility] via 8.4 gram 8.4 gram 8.4 [...] days. for 30 days. Immunizations Ordered Filled Date Status Comments Source Immunization Name Immunization Name pneumococcal, pneumococcal, 2021-03-06 Completed [facility] [...] y of Vaccine Quad IM 3+ 00:00:00 [facility] Pneumococcal 2016-07-03 Completed [facility] f Polysaccharide, 00:00:00 [place] [facility] PPSV23 (PNEUMOVAX) Branch Influenza Virus 2016-07-03 Completed [facility]it y of Vaccine [facility] IM 3+ 00:00:00 [facility] Pneumococcal 2016-07-03 Completed [facility] o f Polysaccharide, 00:00:00 [place] [facility] PPSV23 (PNEUMOVAX) Branch Influenza Virus 2016-07-03 Completed Universit y of Vaccine [facility] IM 3+ 00:00:00 [facility] Pneumococcal 2016-07-03 Completed [facility] o f Polysaccharide, 00:00:00 [place] [facility] PPSV23 (PNEUMOVAX) Branch Influenza Virus 2016-07-03 Completed Universit y of Vaccine [facility] IM 3+ 00:00:00 [facility] Pneumococcal 2016-07-03 Completed [facility] o f Polysaccharide, 00:00:00 [place] [facility] PPSV23 (PNEUMOVAX) Branch Influenza Virus 2016-07-03 Completed [facility]it y of Vaccine [facility] IM 3+ 00:00:00 [facility] Pneumococcal 2016-07-03 Completed [facility] o f Polysaccharide, 00:00:00 [place] [facility] PPSV23 (PNEUMOVAX) Branch Influenza Virus 2016-07-03 Completed [facility]it y of Vaccine [facility] IM 3+ 00:00:00 [facility] Pneumococcal 2016-07-03 Completed [facility] o f Polysaccharide, 00:00:00 [place] [facility] PPSV23 (PNEUMOVAX) Branch Influenza Virus 2016-07-03 Completed [facility]it y of Vaccine Quad IM 3+ 00:00:00 [facility] Pneumococcal 2016-07-03 Completed [facility] o f Polysaccharide, 00:00:00 [place] [facility] PPSV23 (PNEUMOVAX) Branch Influenza Virus 2016-07-03 Completed [facility]it y of Vaccine Quad IM 3+ 00:00:00 [facility] Pneumococcal 2016-07-03 Completed [facility] o f Polysaccharide, 00:00:00 [place] [facility] PPSV23 (PNEUMOVAX) Branch Influenza Virus 2016-07-03 Completed Universit y of Vaccine Quad IM 3+ 00:00:00 [facility] Pneumococcal 2016-07-03 Completed [facility] o f Polysaccharide, 00:00:00 [place] [facility] PPSV23 (PNEUMOVAX) Branch Influenza Virus 2016-07-03 Completed [facility]it y of Vaccine Quad IM 3+ 00:00:00 [facility] Pneumococcal 2016-07-03 Completed [facility] o f Polysaccharide, 00:00:00 [place] [facility] PPSV23 (PNEUMOVAX) Branch Influenza Virus 2016-07-03 Completed Universit y of Vaccine Quad IM 3+ 00:00:00 [facility] Pneumococcal 2016-07-03 Completed [facility] o f Polysaccharide, 00:00:00 [place] [facility] PPSV23 (PNEUMOVAX) Branch Influenza Virus 2016-07-03 Completed Universit y of Vaccine Quad IM 3+ 00:00:00 [facility] Pneumococcal 2016-07-03 Completed [facility] o f Polysaccharide, 00:00:00 [place] [facility] PPSV23 (PNEUMOVAX) Branch Influenza Virus 2016-07-03 Completed Universit y of Vaccine Quad IM 3+ 00:00:00 [facility] Pneumococcal 2016-07-03 Completed [facility] o f Polysaccharide, 00:00:00 [place] [facility] PPSV23 (PNEUMOVAX) Branch Influenza Virus 2016-07-03 Completed Universit y of Vaccine Quad IM 3+ 00:00:00 [facility] Pneumococcal 2016-07-03 Completed University o f Polysaccharide, 00:00:00 [place] [facility] PPSV23 (PNEUMOVAX) Branch Influenza Virus 2016-07-03 Completed Universit y of Vaccine Quad IM 3+ 00:00:00 [facility] Pneumococcal Unknown Completed University o f Polysaccharide, [place] [facility] PPSV23 (PNEUMOVAX) Branch Influenza Virus Unknown Completed Universit y of Vaccine Quad IM 3+ [facility] Pneumococcal Unknown Completed University o f Polysaccharide, [place] [facility] PPSV23 (PNEUMOVAX) Branch Influenza Virus Unknown Completed Universit y of Vaccine Quad IM 3+ [facility] Pneumococcal Unknown Completed University o f Polysaccharide, [place] [facility] PPSV23 (PNEUMOVAX) Branch Influenza Virus Unknown Completed Universit y of Vaccine Quad IM 3+ [facility] Vital Signs Vital Name Observation Time Observation Value Comments Source BP Diastolic 2022-07-12 00:00:00 69 mm[Hg] Jimmy Nicole [facility] Height 2022-07-12 00:00:00 66 [in_i] [facility] (Body Mass 2022-07-12 00:00:00 29.4 kg/m2 [facility] Index) BP Systolic 2022-07-12 00:00:00 132 mm[Hg] [facility] Body Weight 2022-07-12 00:00:00 2912 [oz_av] [facility] BP Diastolic 2022-07-09 00:00:00 111 mm[Hg] Jimmy Nicole edical Height 2022-07-09 00:00:00 66 [in_i] Jimmy Nicole edical BMI (Body Mass 2022-07-09 00:00:00 29.4 kg/m2 [facility] Index) BP Systolic 2022-07-09 00:00:00 193 mm[Hg] Jimmy Nicole edical Body Weight 2022-07-09 00:00:00 2912 [oz_av] Jimmy Nicole edical BP Diastolic 2022-06-26 00:00:00 80 mm[Hg] Jimmy Nicole edical Height 2022-06-26 00:00:00 66 [in_i] Jimmy Nicole edical BMI (Body Mass 2022-06-26 00:00:00 29.5 kg/m2 [facility] Index) BP Systolic 2022-06-26 00:00:00 140 mm[Hg] Jimmy Nicole edical Body Weight 2022-06-26 00:00:00 2928 [oz_av] Jimmy Nicole edical Systolic blood 2022-06-24 12:12:00 154 mm[Hg] [facility] Diastolic blood 2022-06-24 12:12:00 81 mm[Hg] [facility]ive [facility] Heart rate 2022-06-24 12:12:00 68 /min [facility] Body temperature 2022-06-24 12:12:[address] [facility] 2022-06-24 12:12:00 20 /min [facility] Oxygen saturation in 2022-06-24 12:12:00 99 /min [facility] Arterial blood by [facility] Pulse oximetry Branch Body weight 2022-06-22 16:54:00 76.8 kg [facility] BMI 2022-06-22 16:54:00 25.74 kg/m2 [facility] Body height 2022-06-21 09:10:00 172.7 cm [facility] BP Diastolic 2022-06-18 00:00:00 80 mm[Hg] Jimmy Nicole edical Height 2022-06-18 00:00:00 66 [in_i] Jimmy Nicole edical BMI (Body Mass 2022-06-18 00:00:00 29.4 kg/m2 [facility] Index) BP Systolic 2022-06-18 00:00:00 137 mm[Hg] Jimmy gardner Body Weight 2022-06-18 00:00:00 2912 [oz_av] Jimmy gardner BP Diastolic 2022-06-11 00:00:00 67 mm[Hg] Jimmy Nicole edical Height 2022-06-11 00:00:00 66 [in_i] Jimmy Nicole edical BMI (Body Mass 2022-06-11 00:00:00 29.7 kg/m2 [facility] Index) BP Systolic 2022-06-11 00:00:00 122 mm[Hg] Jimmy gardner Body Weight 2022-06-11 00:00:00 2944 [oz_av] Jimmy gardner Systolic blood 2022-06-06 21:50:00 166 mm[Hg] [facility] Diastolic blood 2022-06-06 21:50:00 85 mm[Hg] [facility] Heart rate 2022-06-06 21:50:00 74 /min [facility] Body temperature 2022-06-06 21:50:[address] [facility] Res[facility] rate 2022-06-06 21:50:00 18 /min [facility] Oxygen saturation in 2022-06-06 21:50:00 98 /min [facility] Arterial blood by [facility] Pulse oximetry Branch Body weight 2022-06-05 17:48:00 76.2 kg [facility] BMI 2022-06-05 17:48:00 25.54 kg/m2 [facility] Body height 2022-06-04 09:14:00 172.7 cm [facility] BP Diastolic 2022-06-07 00:00:00 74 mm[Hg] Jimmy Nicole edical Height 2022-06-07 00:00:00 66 [in_i] Jimmy gardner BMI (Body Mass 2022-06-07 00:00:00 29.7 kg/m2 [facility] Index) BP Systolic 2022-06-07 00:00:00 118 mm[Hg] Jimmy gardner Body Weight 2022-06-07 00:00:00 2944 [oz_av] Jimmy Nicole edical Systolic blood 2022-06-05 18:31:00 149 mm[Hg] Univer [...] 96 /min [facility] of Arterial blood by [place] [facility] Pulse oximetry Branch Body weight 2022-06-05 17:48:00 [...] 96 /min [facility] Arterial blood by [employer] [facility] Pulse oximetry Branch Body weight 2022-05-27 23:46:00 71 kg [facility] [place] [facility] BMI 2022-05-27 23:46:00 23.80 kg/m2 [facility] [place] [facility] Body height 2022-05-15 21:25:00 172.7 cm [facility] [place] [facility] Systolic blood 2022-05-22 14:30:00 115 mm[Hg] Univer sity of pressure [facility] Diastolic blood 2022-05-22 14:30:00 80 mm[Hg] Unive rsity of pressure [facility] Heart rate 2022-05-22 14:30:00 82 /min [facility] Body temperature 2022-05-22 14:30:00 36.22 [facility] Res[facility] rate 2022-05-22 14:30:00 20 /min [facility] Oxygen [facility] in 2022-05-22 10:17:00 99 /min [facility] Arterial blood by [facility] Pulse oximetry Branch Body weight 2022-05-21 17:05:00 [facility] 2022-[facility]-21 17:05:00 23.97 kg/m2 [facility] Body height 2022-05-15 21:25:00 172.7 cm [facility] BP Diastolic 2022-04-30 00:00:00 89 mm[Hg] Jimmy Nicole edical Height 2022-04-30 00:00:00 66 [in_i] Jimym Nicole edical BMI (Body Mass 2022-04-30 00:00:00 27.8 kg/m2 [facility] Index) BP Systolic 2022-04-30 00:00:00 155 mm[Hg] Jimmy gardner Body Weight 2022-04-30 00:00:00 2752 [oz_av] Jimmy Nicole edical BP Diastolic 2022-04-16 00:00:00 82 mm[Hg] Jimmy Nicole edical Height 2022-04-16 00:00:00 66 [in_i] Jimmy Nicole edical BMI (Body Mass 2022-04-16 00:00:00 27.1 kg/m2 [facility] Index) BP Systolic 2022-04-16 00:00:00 147 mm[Hg] Jimmy Nicole edical Body Weight 2022-04-16 00:00:00 2688 [oz_av] Jimmy Nicole edical BP Diastolic 2022-04-02 00:00:00 97 mm[Hg] Jimmy Nicole edical Height 2022-04-02 00:00:00 66 [in_i] Jimmy Nicole edical BMI (Body Mass 2022-04-02 00:00:00 28.4 kg/m2 [facility] Index) BP Systolic 2022-04-02 00:00:00 157 mm[Hg] Jimmy M edical Body Weight 2022-04-02 00:00:00 2816 [oz_av] Jimmy M edical BP Diastolic 2022-03-12 00:00:00 88 mm[Hg] Jimmy M edical Height 2022-03-12 00:00:00 66 [in_i] [facility] BMI (Body Mass 2022-03-12 00:00:00 26.8 kg/m2 [facility] Index) BP Systolic 2022-03-12 00:00:00 139 mm[Hg] [facility] Body Weight 2022-03-12 00:00:00 2656 [oz_av] Jimmy M edical BP Diastolic 2022-03-05 00:00:00 85 mm[Hg] Jimmy M edical Height 2022-03-05 00:00:00 66 [in_i] Jimmy M edical BMI (Body Mass 2022-03-05 00:00:00 27.8 kg/m2 [facility] Index) BP Systolic 2022-03-05 00:00:00 158 mm[Hg] [facility] M edical Body Weight 2022-03-05 00:00:00 2752 [oz_av] Jimmy M edical BP Diastolic 2022-02-19 00:00:00 79 mm[Hg] Jimmy M edical Height 2022-02-19 00:00:00 66 [in_i] Jimmy M edical BMI (Body Mass 2022-02-19 00:00:00 27.9 kg/m2 [facility] Index) BP Systolic 2022-02-19 00:00:00 152 mm[Hg] [facility] Body Weight 2022-02-19 00:00:00 2768 [oz_av] Jimmy M edical BP Diastolic 2022-02-05 00:00:00 80 mm[Hg] [facility] Height 2022-02-05 00:00:00 66 [in_i] [facility] BMI (Body Mass 2022-02-05 00:00:00 27.8 kg/m2 [facility] Index) BP Systolic 2022-02-05 00:00:00 144 mm[Hg] Jimmy Nicole edical Body Weight 2022-02-05 00:00:00 2752 [oz_av] Jimmy Nicole edical BP Diastolic 2022-01-18 00:00:00 77 mm[Hg] Jimmy Nicole edical Height 2022-01-18 00:00:00 66 [in_i] Jimmy Nicole edical BMI (Body Mass 2022-01-18 00:00:00 27.3 kg/m2 [facility] Index) BP Systolic 2022-01-18 00:00:00 138 mm[Hg] Jimmy Nicole edical Body Weight 2022-01-18 00:00:00 2704 [oz_av] Jimmy Nicole edical BP Diastolic 2022-01-04 00:00:00 89 mm[Hg] Jimmy Nicole edical Height 2022-01-04 00:00:00 66 [in_i] Jimmy gardner BMI (Body Mass 2022-01-04 00:00:00 28.1 kg/m2 [facility] Index) BP Systolic 2022-01-04 00:00:00 149 mm[Hg] Jimmy gardner Body Weight 2022-01-04 00:00:00 2784 [oz_av] Jimmy Nicole edical Systolic blood 2021-12-25 18:44:00 146 mm[Hg] Univer sity of pressure [facility] Diastolic blood 2021-12-25 18:44:00 96 mm[Hg] Unive rsity of pressure [facility] Heart rate 2021-12-25 18:44:00 70 /min [facility] Body height 2021-12-25 18:34:00 172.7 cm [facility] Body weight 2021-12-25 18:34:00 80.423 kg [facility] BMI 2021-12-25 18:34:00 26.96 kg/m2 [facility] Oxygen saturation in 2021-12-25 18:34:00 97 /min [facility] blood by [facility] Pulse oximetry Branch BP Diastolic 2021-12-25 00:00:00 75 mm[Hg] Jimmy Nicole edical Height 2021-12-25 00:00:00 66 [in_i] [facility] BMI (Body Mass 2021-12-25 00:00:00 28.4 kg/m2 [facility]) BP Systolic 2021-12-25 00:00:00 147 mm[Hg] [facility] Body Weight 2021-12-25 00:00:00 2816 [oz_av] Jimmy M edical BP Diastolic 2021-12-11 00:00:00 89 mm[Hg] [facility] Height 2021-12-11 00:00:00 66 [in_i] [facility] BMI (Body Mass 2021-12-11 00:00:00 28.2 kg/m2 [facility]) BP Systolic 2021-12-11 00:00:00 139 [...] BMI (Body Mass 2021-11-08 00:00:00 27.8 kg/m2 [facility] Index) BP Systolic 2021-11-08 00:00:00 165 mm[Hg] Jimmy M edical Body Weight 2021-11-08 00:00:00 2752 [oz_av] Jimmy M edical BP Diastolic 2021-11-02 00:00:00 75 mm[Hg] Jimmy M edical Height 2021-11-02 00:00:00 66 [in_i] Jimmy M edical BMI (Body Mass 2021-11-02 00:00:00 27.4 kg/m2 [facility] Index) BP Systolic 2021-11-02 00:00:00 138 mm[Hg] [facility] Body Weight 2021-11-02 00:00:00 2720 [oz_av] Jimmy M edical BP Diastolic 2021-10-19 00:00:00 77 mm[Hg] Jimmy M edical Height 2021-10-19 00:00:00 66 [in_i] Jimmy M edical BMI (Body Mass 2021-10-19 00:00:00 28.2 kg/m2 [facility] Index) BP Systolic 2021-10-19 00:00:00 136 mm[Hg] Jimmy M edical Body Weight 2021-10-19 00:00:00 2800 [oz_av] Jimmy M edical BP Diastolic 2021-10-12 00:00:00 74 mm[Hg] Jimmy M edical Height 2021-10-12 00:00:00 66 [in_i] Jimmy M edical BMI (Body Mass 2021-10-12 00:00:00 28.2 kg/m2 [facility] Index) BP Systolic 2021-10-12 00:00:00 139 mm[Hg] Jimmy M edical Body Weight 2021-10-12 00:00:00 2800 [oz_av] Jimmy M edical BP Diastolic 2021-10-02 00:00:00 75 mm[Hg] [facility] Height 2021-10-02 00:00:00 66 [in_i] Jimmy M edical BMI (Body Mass 2021-10-02 00:00:00 29.4 kg/m2 [facility] Index) BP Systolic 2021-10-02 00:00:00 139 mm[Hg] Jimmy M edical Body Weight 2021-10-02 00:00:00 2912 [oz_av] [facility] BP Diastolic 2021-09-26 00:00:00 89 mm[Hg] [facility] Height 2021-09-26 00:00:00 66 [in_i] Jimmy M edical BMI (Body Mass 2021-09-26 00:00:00 29.4 kg/m2 [facility] Index) BP Systolic 2021-09-26 00:00:00 135 mm[Hg] [facility] Body Weight 2021-09-26 00:00:00 2912 [oz_av] Jimmy M edical BP Diastolic 2021-09-13 00:00:00 92 mm[Hg] Jimmy M edical Height 2021-09-13 00:00:00 66 [in_i] Jimmy M edical BMI (Body Mass 2021-09-13 00:00:00 13.2 kg/m2 [facility] Index) BP Systolic 2021-09-13 00:00:00 153 mm[Hg] Jimmy M edical Body Weight 2021-09-13 00:00:00 1304 [oz_av] Jimmy M edical BP Diastolic 2021-09-04 00:00:00 78 mm[Hg] [facility] Height 2021-09-04 00:00:00 66 [in_i] Jimmy M edical BMI (Body Mass 2021-09-04 00:00:00 28.9 kg/m2 [facility] Index) BP Systolic 2021-09-04 00:00:00 136 mm[Hg] [facility] Body Weight 2021-09-04 00:00:00 2864 [oz_av] Jimmy M edical BP Diastolic 2021-08-22 00:00:00 77 mm[Hg] [facility] Height 2021-08-22 00:00:00 66 [in_i] [facility] BMI (Body Mass 2021-08-22 00:00:00 29.5 kg/m2 [facility] Index) BP Systolic 2021-08-22 00:00:00 134 mm[Hg] [facility] Body Weight 2021-08-22 00:00:00 2928 [oz_av] [facility] BP Diastolic 2021-08-14 00:00:00 66 mm[Hg] [facility] Height 2021-08-14 00:00:00 66 [in_i] [facility] BMI (Body Mass 2021-08-14 00:00:00 29.5 kg/m2 [facility] Index) BP Systolic 2021-08-14 00:00:00 136 mm[Hg] [facility] Body Weight 2021-08-14 00:00:00 2928 [oz_av] [facility] BP Diastolic 2021-08-10 00:00:00 75 mm[Hg] [facility] Height 2021-08-10 00:00:00 66 [in_i] [facility] BMI (Body Mass 2021-08-10 00:00:00 29.2 kg/m2 [facility] Index) BP Systolic 2021-08-10 00:00:00 131 mm[Hg] [facility] Body Weight 2021-08-10 00:00:00 2896 [oz_av] [facility] BP Diastolic 2021-07-31 00:00:00 78 mm[Hg] [facility] Height 2021-07-31 00:00:00 66 [in_i] [facility] BMI (Body Mass 2021-07-31 00:00:00 28.6 kg/m2 [facility] Index) BP Systolic 2021-07-31 00:00:00 137 mm[Hg] [facility] Body Weight 2021-07-31 00:00:00 2832 [oz_av] [facility] BP Diastolic 2021-07-27 00:00:00 75 mm[Hg] [facility] Height 2021-07-27 00:00:00 66 [in_i] [facility] BMI (Body Mass 2021-07-27 00:00:00 29.7 kg/m2 [facility] Index) BP Systolic 2021-07-27 00:00:00 133 mm[Hg] [facility] Body Weight 2021-07-27 00:00:00 2944 [oz_av] [facility] BP Diastolic 2021-07-19 00:00:00 88 mm[Hg] Jimmy Nicole edical Height 2021-07-19 00:00:00 66 [in_i] Jimmy Nicole edical BMI (Body Mass 2021-07-19 00:00:00 29.5 kg/m2 [facility] Index) BP Systolic 2021-07-19 00:00:00 140 mm[Hg] Jimmy Nicole edical Body Weight 2021-07-19 00:00:00 2928 [oz_av] Jimmy Nicole edical BP Diastolic 2021-07-12 00:00:00 80 mm[Hg] Jimmy Nicole edical Height 2021-07-12 00:00:00 66 [in_i] Jimmy Nicole edical BMI (Body Mass 2021-07-12 00:00:00 29.5 kg/m2 [facility] Index) BP Systolic 2021-07-12 00:00:00 136 mm[Hg] Jimmy gardner Body Weight 2021-07-12 00:00:00 2928 [oz_av] Jimmy Nicole edical Height 2019-02-20 00:00:00 68 [in_i] [facility] Height 2018-11-13 00:00:00 68 [in_i] [facility] Height 2018-10-25 00:00:00 68 [in_i] [facility] Height 2018-09-04 00:00:00 68 [in_i] [facility] Systolic blood 2022-05-17 17:35:00 121 mm[Hg] Univer sity of pressure [facility] Diastolic blood 2022-05-17 17:35:00 59 mm[Hg] Unive rsity of pressure [facility] Heart rate 2022-05-17 17:35:00 74 /min [facility] Body temperature 2022-05-17 17:35:00 35.72 [facility] 2022-05-17 17:35:00 18 /min [facility] O[facility] in 2022-05-17 17:35:00 100 /min [facility] Arterial blood by [facility] Pulse oximetry Branch Body weight 2022-05-17 00:46:00 69 kg [facility] BMI 2022-05-17 00:46:00 23.13 kg/m2 [facility] Body height 2022-05-15 21:25:00 172.7 cm [facility] Systolic blood 2022-01-22 19:04:00 146 mm[Hg] [facility] pressure Diastolic blood 2022-01-22 19:04:00 81 mm[Hg] [facility] pressure Heart rate 2022-01-22 19:04:00 85 /min [facility] Body temperature 2022-01-22 19:04:00 36.56 Laz[facility] Body height 2022-01-22 19:04:00 172.7 cm [facility] Body weight 2022-01-22 19:04:00 78.2 kg [facility] BMI 2022-01-22 19:04:00 26.21 kg/m2 [facility] Oxygen saturation in 2022-01-22 19:04:00 95 /min [facility] Arterial blood by Pulse oximetry Oxygen saturation in 2021-12-18 20:47:00 98 /min [facility] Arterial blood by Pulse oximetry Systolic blood 2021-12-18 20:16:00 152 mm[Hg] [facility] pressure Diastolic blood 2021-12-18 20:16:00 75 mm[Hg] [facility] pressure Heart rate 2021-12-18 20:16:00 82 /min [facility] Body temperature 2021-12-18 16:16:11 36.72 L[facility] Respiratory rate 2021-12-18 16:16:11 18 /min [facility] Body weight 2021-12-18 11:11:31 85.14 kg [facility] BMI 2021-12-18 11:11:31 28.54 kg/m2 [facility] Body height 2021-12-13 19:32:00 172.7 cm [facility] Procedures Procedure Date / Time Performing Source Performed Clinician REFERRAL- REQUEST/RESPONSE 2022-07-29 Doctor Mishra rsity of 05:01:00 Unassigned, No [facility] PHOSPHORUS 2022-06-24 Cleve Toni Malin of 10:31:00 [facility] MAGNESIUM 2022-06-24 Cleve, [facility] of 10:31:00 [facility] BASIC METABOLIC PANEL (NA, K, CL, 2022-06-24 Cleve [facility] of CO2, GLUCOSE, BUN, CREATININE, CA) 10:31:00 [facility] VANCOMYCIN RANDOM LEVEL 2022-06-24 Toni Poon [facility] ty of 10:31:00 [facility] CBC WITH DIFF 2022-06-24 Toni Poon Malin of 10:31:00 [facility] MAGNESIUM 2022-06-23 [facility] of 10:56:00 [facility] BASIC METABOLIC PANEL (NA, K, CL, 2022-06-23 [facility] CO2, GLUCOSE, BUN, CREATININE, CA) 10:56:00 [facility] CBC WITH DIFF 2022-06-23 Arce [facility] of 10:56:00 [facility] CBC WITH DIFF [facility]00 [facility] RETICULOCYTES AUTOMATED 2022-06-22 [facility] ty of 19:14:00 [facility] PREPARE PACKED RBC 2022-06-22 [facility] of 14:22:05 [facility] PHOSPHORUS 2022-06-22 Cleve [facility] of 09:26:00 [facility] MAGNESIUM 2022-06-22 [facility] of 09:26:00 [facility] BASIC METABOLIC PANEL (NA, K, CL, 2022-06-22 [facility] of CO2, GLUCOSE, BUN, CREATININE, CA) 09:26:00 [facility] CBC WITH DIFF 2022-06-22 Claude [facility] of 09:26:00 [facility] BLOOD CULTURE SCREEN 2022-06-22 [facility] of 09:00:00 [facility] SERUM DRUG (IMMUNOASSAY) - 2022-06-21 Claude [facility] rsity of COMPREHENSIVE DRUG SCREEN 21:46:00 [facility] VITAMIN B12, LEVEL 2022-06-21 Toni Poon [facility] of 21:29:00 [facility] FOLATE 2022-06-21 [facility] of 21:29:00 [facility] CBC WITHOUT DIFF 2022-06-21 Cleve [facility] of 21:29:00 [facility] CBC WITHOUT DIFF 2022-06-21 Bharti [facility] of 11:12:00 [facility] FIBRINOGEN 2022-06-21 [facility] of 11:12:00 [facility] TRANSFUSE PACKED RBC 2022-06-21 Maneiltirso [facility] of 07:56:00 [facility] PREPARE PACKED RBC 2022-06-21 [facility] of 07:47:25 [facility] HB ABO GROUPING 2022-06-21 [facility] of 05:20:00 [facility] AC PANEL 21 + LACTIC ACID 2022-06-[address] [facility] sity of 00:03:00 [facility] PROTHROMBIN TIME / INR 2022-06-20 [facility] of 23:59:00 [facility] ACTIVATED PARTIAL THRMPLAS MIR 2022-06-20 Chucho Goldman [facility] of 23:59:00 [facility] PHOSPHORUS 2022-06-20 [facility] of 23:56:00 [facility] MAGNESIUM 2022-06-20 [facility] of 23:56:00 [facility] FERRITIN SERUM 2022-06-20 [facility] of 23:56:00 [facility] TROPONIN I 2022-06-20 Jones Chucho [facility] of 23:56:00 [facility] BASIC METABOLIC PANEL (NA, K, CL, 2022-06-20 [facility] CO2, GLUCOSE, BUN, CREATININE, CA) 23:56:00 [facility] IRON PANEL 2022-06-20 [facility] of 23:56:00 [facility] CBC WITH DIFF 2022-06-20 [facility] 23:56:00 [facility] HB ABO GROUPING 2022-06-20 [facility] 23:56:00 [facility] N-TERMINAL PRO-BNP 2022-06-20 Chucho Goldman [facility] of 23:56:00 [facility] XR CHEST 1 VW 2022-06-20 [facility] 23:44:00 [facility] HOSPITAL ADMISSION 2022-06-20 [facility] of 05:01:00 Unassigned, No [facility] CBC WITHOUT DIFF 2022-06-06 [facility] 23:47:00 [facility] MAGNESIUM 2022-06-06 [facility] 10:55:00 [facility] BASIC METABOLIC PANEL (NA, K, CL, 2022-06-06 [facility], [facility] of CO2, GLUCOSE, BUN, CREATININE, CA) 10:55:00 [facility] CBC WITH DIFF 2022-06-06 [facility] 10:55:00 [facility] MAGNESIUM 2022-06-06 [facility] 10:55:00 [facility] BASIC METABOLIC PANEL (NA, K, CL, 2022-06-06 [facility], [place] of CO2, GLUCOSE, BUN, CREATININE, CA) 10:55:00 [facility] CBC WITH DIFF 2022-06-06 [facility] 10:55:00 [facility] SURGICAL PATHOLOGY EXAM 2022-06-05 [facility] of 19:19:00 [facility] ESOPHAGOGASTRODUODENOSCOPY 2022-06-05 [facility] rsity of 18:44:00 [facility] ESOPHAGOGASTRODUODENOSCOPY 2022-06-05 [facility] rsity of 18:44:00 [facility] EGD (ENDO) 2022-06-05 [facility] of 18:37:53 [facility] EGD (ENDO) 2022-06-05 [facility] of 18:37:53 [facility] MAGNESIUM 2022-06-05 [facility] 10:06:00 [facility] BASIC METABOLIC PANEL (NA, K, CL, 2022-06-05 [facility] of CO2, GLUCOSE, BUN, CREATININE, CA) 10:06:00 [facility] IRON PANEL 2022-06-05 [facility] 10:06:00 [facility] CBC WITH DIFF 2022-06-05 [facility] of 10:06:00 [facility] MAGNESIUM 2022-06-05 [facility] 10:06:00 [facility] BASIC METABOLIC PANEL (NA, K, CL, 2022-06-05 [facility] CO2, GLUCOSE, BUN, CREATININE, CA) 10:06:00 [facility] IRON PANEL 2022-06-05 [facility] 10:06:00 [facility] CBC WITH DIFF 2022-06-05 Jennifer Arce [facility] of 10:06:00 [facility] Esophagogastroduodenoscopy 2022-06-05 [facility] 00:00:00 XR CHEST 1 VW 2022-06-04 [facility] 18:43:00 [facility] XR CHEST 1 VW 2022-06-04 [facility] 18:43:00 [facility] HB ABO GROUPING 2022-06-04 [facility] 13:58:00 [facility] HB ABO GROUPING 2022-06-04 [facility] 13:58:00 [facility] POCT GLUCOSE (AUTOMATED) 2022-06-[address] [facility] of 13:57:00 [facility] POCT GLUCOSE (AUTOMATED) 2022-06-[address] [facility] of 13:57:00 [facility] MRSA / MSSA SCREEN BY PCR [facility] 2022-06-04 [facility] 08:44:00 [facility] MARK AURIS SURVEILLANCE BY PCR 2022-06-04 [facility] (INFECTION CONTROL PURPOSES) 08:44:00 Darian as Medical Branch MRSA / MSSA SCREEN BY PCRHITESH 2022-06-04 [facility] 08:44:00 [facility] MARK AURIS SURVEILLANCE BY PCR 2022-06-04 [facility] (INFECTION CONTROL PURPOSES) 08:44:00 Darian as [facility] FERRITIN SERUM 2022-06-04 [facility] 08:41:00 [facility] HEPATIC FUNCTION PANEL ([id number]) 2022-06-04 [facility] (ALB,T.PRO,BILI 08:41:00 [facility],BU/BC,ALT,AST,ALK PHOS) [place] BASIC METABOLIC PANEL (NA, K, CL, 2022-06-04 [facility] CO2, GLUCOSE, BUN, CREATININE, CA) 08:41:00 [facility] CBC WITH DIFF 2022-06-04 [facility] of 08:41:00 [facility] PROTHROMBIN TIME / INR 2022-06-04 [facility] of 08:41:00 [facility] FERRITIN SERUM 2022-06-04 [facility] 08:41:00 Tiffany Cedeño [facility] HEPATIC FUNCTION PANEL ([id number]) 2022-06-04 [facility] of (ALB,T.PRO,BILI 08:41:00 [facility],BU/BC,ALT,AST,ALK PHOS) [place] BASIC METABOLIC PANEL (NA, K, CL, 2022-06-04 [facility] of CO2, GLUCOSE, BUN, CREATININE, CA) 08:41:00 [facility] CBC WITH DIFF 2022-06-04 [facility] of 08:41:00 [facility] PROTHROMBIN TIME / INR 2022-06-04 [facility] of 08:41:00 [facility] ENDOSCOPY PROCEDURE DOCUMENTATION 2022-06-04 [facility] 06:01:00 Unassigned, No [facility] ENDOSCOPY PROCEDURE DOCUMENTATION 2022-06-04 [facility] 06:01:00 Unassigned, No [facility] CBC WITHOUT DIFF 2022-05-28 [facility] of 12:52:00 [facility] XR CHEST 1 VW 2022-05-27 [facility] 12:31:00 [facility] PHOSPHORUS 2022-05-27 [facility] of 11:56:00 [facility] MAGNESIUM 2022-05-27 [facility] of 11:56:00 [facility] BASIC METABOLIC PANEL (NA, K, CL, 2022-05-27 [facility] of CO2, GLUCOSE, BUN, CREATININE, CA) 11:56:00 [facility] CBC WITHOUT DIFF 2022-05-27 [facility] of 11:56:00 [facility] SERUM DRUG (IMMUNOASSAY) - 2022-05-26 Shanika Carranza [facility] of COMPREHENSIVE DRUG SCREEN 22:11:00 [facility] PHOSPHORUS 2022-05-26 [facility]05-26 [facility] 11:48:00 [facility] BASIC METABOLIC PANEL (NA, K, CL, 2022-05-26 Alfred, [facility] CO2, GLUCOSE, BUN, CREATININE, CA) 11:48:00 [facility] CBC WITH DIFF 2022-05-26 Alfred, [facility] 11:48:00 [facility] XR CHEST 1 VW 2022-05-25 [facility] 21:48:00 [facility] CBC WITH DIFF 2022-05-25 [facility] 21:30:00 [facility] EXTRA TUBE DK. GREEN 2022-05-25 Jean-Claude Cohen [facility] 21:27:00 [facility] PHOSPHORUS 2022-05-25 [facility] 21:24:00 [facility] MAGNESIUM 2022-05-25 [facility] 21:24:00 [facility] TROPONIN I 2022-05-25 [facility] 21:24:00 [facility] BASIC METABOLIC PANEL (NA, K, CL, 2022-05-25 [facility] CO2, GLUCOSE, BUN, CREATININE, CA) 21:24:00 [facility] D-DIMER 2022-05-25 [facility] 21:24:00 [facility] ABG+COOX+NA+K+GLU+CA2+ 2022-05-25 [facility]ude [facility] of 21:10:00 [facility] HB ECG ROUTINE & RHYTHM STRIP 2022-05-25 CarylMeri usthia Un iversity of 21:09:50 [facility] POCT GLUCOSE (AUTOMATED) 2022-05-25 Jean-Claude Cohen [facility] ity of 20:48:00 [facility] PREPARE PACKED RBC 2022-05-25 [facility] 20:12:38 [facility] BASIC METABOLIC PANEL (NA, K, CL, 2022-05-25 Alfred, University CO2, GLUCOSE, BUN, CREATININE, CA) 18:54:00 [facility] CBC WITH DIFF 2022-05-25 Alfred, [facility] of 18:54:00 Vickie [facility] XR CHEST 1 VW 2022-05-25 Alfred, [place] of 12:21:00 Vickie [facility] PHOSPHORUS 2022-05-25 OBaltazar, Mal[place] of 11:11:00 [facility] MAGNESIUM 2022-05-25 Alfred, University of 11:11:00 [facility] BASIC METABOLIC PANEL (NA, K, CL, 2022-05-25 Alfred, [facility] of CO2, GLUCOSE, BUN, CREATININE, CA) 11:11:00 [facility] CBC WITH DIFF 2022-05-25 Alfred, [facility] of 11:11:00 [facility] XR CHEST 1 VW 2022-05-24 Alfred, [place] of 12:33:00 [facility] PHOSPHORUS 2022-05-24 [facility] of 11:26:00 [facility] MAGNESIUM 2022-05-24 [facility] of 11:26:00 [facility] BASIC METABOLIC PANEL (NA, K, CL, 2022-05-24 [facility] of CO2, GLUCOSE, BUN, CREATININE, CA) 11:26:00 [facility] CBC WITHOUT DIFF 2022-05-24 [facility] of 11:25:00 [facility] POCT GLUCOSE (AUTOMATED) 2022-05-24 Jean-Claude Cohen [facility] ity of 10:48:00 [facility] POCT GLUCOSE (AUTOMATED) 2022-05-24 Jean-Claude Cohen [facility] ity of 10:19:00 [facility] XR CHEST 1 VW 2022-05-23 [facility] of 11:06:00 [facility] XR CHEST 1 2022-05-23 [facility] of 11:06:00 [facility] XR CHEST 1 VW 2022-05-22 [facility] of 20:50:00 [facility] XR CHEST 1 VW 2022-05-22 [facility] of 20:50:00 [facility] TISSUE CULTURE(AEROBIC/ANAEROBIC) 2022-05-22 Jean-Claude Cohen [place] of 17:11:00 [facility] FUNGUS (ROUTINE) CULTURE 2022-05-22 Noel [facility] it of 17:11:00 [facility] FUNGUS (ROUTINE) CULTURE 2022-05-22 Jean-Claude Cohen [facility] it of 17:11:00 [facility] TISSUE CULTURE(AEROBIC/ANAEROBIC) 2022-05-22 Jean-Claude Cohen [facility] of 17:11:00 [facility] DECORTICATION ROBOT-ASSISTED LUNG 2022-05-22 Noel [facility] 14:30:00 [facility] DECORTICATION ROBOT-ASSISTED LUNG 2022-05-22 Noel, [facility] 14:30:00 [facility] HB ABO GROUPING 2022-05-22 Alfred, [facility] of 11:55:00 [facility] HB ABO GROUPING 2022-05-22 OBaltazar, University of 11:55:00 [facility] PHOSPHORUS 2022-05-22 Alfred, University of 11:54:00 [facility] MAGNESIUM 2022-05-22 OBaltazar, University of 11:54:00 [facility] BASIC METABOLIC PANEL (NA, K, CL, 2022-05-22 O'Shan, University of CO2, GLUCOSE, BUN, CREATININE, CA) 11:54:00 [facility] CBC WITH DIFF 2022-05-22 Alfred, University of 11:54:00 [facility] PROTHROMBIN TIME / INR 2022-05-22 Alfred, [facility] of 11:54:00 [facility] PHOSPHORUS 2022-05-22 O'Shan, University of 11:54:00 [facility] MAGNESIUM 2022-05-22 O'Shan, [facility] of 11:54:00 [facility] BASIC METABOLIC PANEL (NA, K, CL, 2022-05-22 O'Shan, University of CO2, GLUCOSE, BUN, CREATININE, CA) 11:54:00 [facility] CBC WITH DIFF 2022-05-22 OBaltazar, University of 11:54:00 [facility] PROTHROMBIN TIME / INR 2022-05-22 Alfred [facility] y of 11:54:00 Vickie Garza [facility] CBC WITHOUT DIFF 2022-05-20 [facility] of 20:04:00 [facility] PROTHROMBIN TIME / INR 2022-05-20 [facility], [facility] y of 20:04:00 [facility] CBC WITHOUT DIFF 2022-05-20 [facility], [facility] of 20:04:00 [facility] PROTHROMBIN TIME / INR 2022-05-20 [facility], [facility] y of 20:04:[address] [facility] [address] ABDOMEN PELVIS W CONTRAST 2022-05-20 Alberto Amos Uni versity of 17:53:46 [facility] CT ABDOMEN PELVIS W CONTRAST 2022-05-20 Alberto Amos Uni versity of 17:53:46 [facility] XR CHEST 2 VW 2022-05-20 [facility] of 16:09:00 [facility] XR CHEST 2 VW 2022-05-20 [facility] of 16:09:00 [facility] ABORH CONFIRMATION (LAB ONLY) 2022-05-19 Angel Mike Un iversity of 20:00:00 [facility] ABORH CONFIRMATION (LAB ONLY) 2022-05-19 Mike Ortiz Un iversity of 20:00:00 [facility] HB ABO GROUPING 2022-05-19 [facility] of 18:05:00 [facility] HB ABO GROUPING 2022-05-19 [facility] of 18:05:00 [facility] PHOSPHORUS 2022-05-19 [facility] of 11:23:00 [facility] MAGNESIUM 2022-05-19 [facility] of 11:23:00 [facility] BASIC METABOLIC PANEL (NA, K, CL, 2022-05-19 [facility] of CO2, GLUCOSE, BUN, CREATININE, CA) 11:23:00 [facility] INTACT PTH CALCIUM GROUP 2022-05-19 [facility] of 11:23:00 [facility] PHOSPHORUS 2022-05-19 [facility] of 11:23:00 [facility] MAGNESIUM 2022-05-19 [facility] of 11:23:00 [facility] BASIC METABOLIC PANEL (NA, K, CL, 2022-05-19 [facility] of CO2, GLUCOSE, BUN, CREATININE, CA) 11:23:00 [facility] INTACT PTH CALCIUM GROUP 2022-05-19 [facility] ity of 11:23:[address] [facility] CT THORAX WO CONTRAST 2022-05-19 [facility] of 04:22:28 [facility] CT THORAX WO CONTRAST 2022-05-19 [facility], [facility] of 04:22:28 [facility] XR CHEST 1 VW 2022-05-18 [facility] of 15:09:00 [facility] XR CHEST 1 VW 2022-05-18 [facility], [facility] of 15:09:00 [facility] COMP. METABOLIC PANEL ([id number]) 2022-05-17 Antonia Nation Un iversity of 11:28:00 [facility] CBC WITH DIFF 2022-05-17 Rios, [facility] of 11:28:00 [facility] PHOSPHORUS 2022-05-17 [facility] of 11:28:00 [facility] COMP. METABOLIC PANEL ([id number]) 2022-05-17 Antonia Nation Un iversity of 11:28:00 [facility] CBC WITH DIFF 2022-05-17 [facility] 11:28:00 [facility] PHOSPHORUS 2022-05-17 [facility] of 11:28:00 [facility] COMP. METABOLIC PANEL ([id number]) 2022-05-17 Antonia Nation Un iversity of 11:28:00 [facility] CBC WITH DIFF 2022-05-17 [facility] of 11:28:[address] [facility] CT ANGIOGRAPHY, DOUBLE RULE OUT 2022-05-16 [facility], [facility] (THORACIC AO / PE) 16:05:[address] [facility] CT ANGIOGRAPHY, DOUBLE RULE OUT 2022-05-16 [facility] of (THORACIC AO / PE) 16:05:[address] [facility] [address] ANGIOGRAPHY, DOUBLE RULE OUT 2022-05-16 [facility] of (THORACIC AO / PE) 16:05:44 [facility] BASIC METABOLIC PANEL (NA, K, CL, 2022-05-16 [facility] of CO2, GLUCOSE, BUN, CREATININE, CA) 11:17:00 [facility] CBC WITH DIFF 2022-05-16 Rios, [facility] of 11:17:00 [facility] BASIC METABOLIC PANEL (NA, K, CL, 2022-05-16 Rios, [facility] of CO2, GLUCOSE, BUN, CREATININE, CA) 11:17:00 [facility] CBC WITH DIFF 2022-05-16 Rios, [facility] of 11:17:00 [facility] BASIC METABOLIC PANEL (NA, K, CL, 2022-05-16 Rios, [facility] of CO2, GLUCOSE, BUN, CREATININE, CA) 11:17:00 [facility] CBC WITH DIFF 2022-05-16 Rios, [facility] of 11:17:00 [facility] IR REPLACEMENT COMPLETE TUNNELED 2022-05-16 [facility] of CENTRALLY INSERTED CVC WITHOUT 00:03:00 T ex Medical PORT/PUMP SAME ACCESS Branch IR REPLACEMENT COMPLETE TUNNELED 2022-05-16 [facility] of CENTRALLY INSERTED CVC WITHOUT 00:03:00 T ex Medical PORT/PUMP SAME ACCESS Branch IR REPLACEMENT COMPLETE TUNNELED 2022-05-16 [facility] of CENTRALLY INSERTED CVC WITHOUT 00:03:00 T ex Medical PORT/PUMP SAME ACCESS Branch BASIC METABOLIC PANEL (NA, K, CL, 2022-05-15 Rios, [facility] of CO2, GLUCOSE, BUN, CREATININE, CA) 11:05:00 [facility] MAGNESIUM 2022-05-15 Akirailtirso [facility] of 11:05:00 [facility] MAGNESIUM 2022-05-15 Akirailtirso [facility] of 11:05:00 [facility] BASIC METABOLIC PANEL (NA, K, CL, 2022-05-15 Rios, [facility] of CO2, GLUCOSE, BUN, CREATININE, CA) 11:05:00 [facility] MAGNESIUM 2022-05-15 Dandre [facility] of 11:05:00 [facility] BASIC METABOLIC PANEL (NA, K, CL, 2022-05-15 Rios, [facility] of CO2, GLUCOSE, BUN, CREATININE, CA) 11:05:00 [facility] BASIC METABOLIC PANEL (NA, K, CL, 2022-05-14 Rios, [facility] of CO2, GLUCOSE, BUN, CREATININE, CA) 22:08:00 [facility] BASIC METABOLIC PANEL (NA, K, CL, 2022-05-14 Rios, [facility] of CO2, GLUCOSE, BUN, CREATININE, CA) 22:08:00 [facility] BASIC METABOLIC PANEL (NA, K, CL, 2022-05-14 Rios, [facility] [employer] of CO2, GLUCOSE, BUN, CREATININE, CA) 22:08:00 [facility] BASIC METABOLIC PANEL (NA, K, CL, 2022-05-14 Rios, [facility] of CO2, GLUCOSE, BUN, CREATININE, CA) 10:43:00 [facility] CBC WITH DIFF 2022-05-14 Rios, [facility] of 10:43:00 [facility] MAGNESIUM 2022-05-14 [facility] of 10:43:00 [facility] MAGNESIUM 2022-05-14 [facility], [facility] of 10:43:00 [facility] BASIC METABOLIC PANEL (NA, K, CL, 2022-05-14 [facility], [facility] of CO2, GLUCOSE, BUN, CREATININE, CA) 10:43:00 [facility] CBC WITH DIFF 2022-05-14 Rios, [facility] of 10:43:00 [facility] MAGNESIUM 2022-05-14 [facility] of 10:43:00 [facility] BASIC METABOLIC PANEL (NA, K, CL, 2022-05-14 [facility], [facility] of CO2, GLUCOSE, BUN, CREATININE, CA) 10:43:00 [facility] CBC WITH DIFF 2022-05-14 Rios, [facility] of 10:43:00 [facility] XR CHEST 1 VW 2022-05-14 Abbi [facility] of 04:09:52 [facility] XR CHEST 1 VW 2022-05-14 Abbi [facility] of 04:09:52 [facility] XR CHEST 1 VW 2022-05-14 AbbiCount Includes [facility] of 04:09:52 [facility] GLUCOSE 2022-05-[address] [facility], [facility] of 22:41:00 [facility] LACTATE DEHYDROGENASE 2022-05-13 [facility], [facility] y of 22:41:00 [facility] PROTEIN TOTAL 2022-05-13 [facility], [facility] of 22:41:00 [facility] GLUCOSE 2022-05-13 Awad, [facility] of 22:41:00 [facility] PROTEIN TOTAL 2022-05-13 [facility], [facility] of 22:41:00 [facility] LACTATE DEHYDROGENASE 2022-05-13 [facility], [facility] y of 22:41:00 [facility] GLUCOSE 2022-05-13 [facility], [facility] of 22:41:00 [facility] PROTEIN TOTAL 2022-05-13 [facility], [facility] of 22:41:00 [facility] LACTATE DEHYDROGENASE 2022-05-13 [facility], [facility] y of 22:41:00 [facility] XR CHEST 1 VW 2022-05-13 [facility] 17:52:00 [facility] XR CHEST 1 VW 2022-05-13 [facility] 17:52:00 [facility] XR CHEST 1 VW 2022-05-13 [facility] 17:52:00 [facility] PH, BODY FLUID 2022-05-13 [facility], [facility] of 17:30:00 [facility] BODY FLUID FUNGUS CULTURE (BACTEC 2022-05-13 [facility] of BOTTLE) 17:30:00 [facility] PH, BODY FLUID 2022-05-13 [facility] of 17:30:00 [facility] BODY FLUID FUNGUS CULTURE (BACTEC 2022-05-13 [facility] BOTTLE) 17:30:00 [facility] PH, BODY FLUID 2022-05-13 [facility], [facility] of 17:30:00 [facility] BODY FLUID FUNGUS CULTURE (BACTEC 2022-05-13 [facility]on [facility] BOTTLE) 17:30:00 [facility] BODY FLUID MANUAL DIFF 2022-05-13 [facility] of 15:12:00 [facility] CYTO PLEURAL FLUID 2022-05-13 [facility] o f 15:12:00 [facility] BODY FLUID (BACTEC BOTTLE) 2022-05-13 Wesley Ontiveros rsity of 15:12:00 [facility] BODY FLUID DIRECT COUNT 2022-05-13 [facility] ity of 15:12:00 [facility] BODY FLUID (BACTEC BOTTLE) 2022-05-13 Wesley Ontiveros rsity of 15:12:00 [facility] CYTO PLEURAL FLUID 2022-05-13 [facility] o f 15:12:00 [facility] BODY FLUID DIRECT COUNT 2022-05-13 [facility] ity of 15:12:00 [facility] BODY FLUID (BACTEC BOTTLE) 2022-05-13 Wesley Ontiveros rsity of 15:12:00 [facility] CYTO PLEURAL FLUID 2022-05-13 [facility] o f 15:12:00 [facility] SERUM DRUG (IMMUNOASSAY) - 2022-05-13 Alberto Amos rsity of COMPREHENSIVE DRUG SCREEN 11:19:00 [facility] COMP. METABOLIC PANEL (70916) 2022-05-13 [facility] Un iversity of 11:19:00 [facility] PHOSPHORUS 2022-05-13 [facility], [facility] 11:19:00 [facility] PROTHROMBIN TIME / INR 2022-05-13 [facility] y of 11:19:00 [facility] ACTIVATED PARTIAL THRMPLAS MIR 2022-05-13 [facility] of 11:19:00 [facility] PHOSPHORUS 2022-05-13 [facility] of 11:19:00 [facility] COMP. METABOLIC PANEL ([id number]) 2022-05-13 [facility] Un iversity of 11:19:00 [facility] SERUM DRUG (IMMUNOASSAY) - 2022-05-13 Alberto Amos rsity of COMPREHENSIVE DRUG SCREEN 11:19:00 [facility] PROTHROMBIN TIME / INR 2022-05-13 Rios, [facility] y of 11:19:00 [facility] ACTIVATED PARTIAL THRMPLAS MIR 2022-05-13 [facility] niversity of 11:19:00 [facility] PHOSPHORUS 2022-05-13 [facility] 11:19:00 [facility] COMP. METABOLIC PANEL ([id number]) 2022-05-13 Antonia Nation iversity of 11:19:00 [facility] SERUM DRUG (IMMUNOASSAY) - 2022-05-[address] [facility] of COMPREHENSIVE DRUG SCREEN 11:19:00 [facility] PROTHROMBIN TIME / INR 2022-05-13 Rios, [facility], [facility] y of 11:19:00 [facility] ACTIVATED PARTIAL THRMPLAS MIR 2022-05-13 [facility]ia Nation niversity of 11:19:[address] [facility] CT THORAX W CONTRAST 2022-05-12 [facility], [facility] of 15:32:00 [facility] CT THORAX W CONTRAST 2022-05-12 [facility] of 15:32:[address] [facility] CT THORAX W CONTRAST 2022-05-12 [facility] of 15:32:00 [facility] CBC WITH DIFF 2022-05-11 Alberto Amos Malin of 10:43:00 [facility] BASIC METABOLIC PANEL (NA, K, CL, 2022-05-11 Alberto Amos Malin of CO2, GLUCOSE, BUN, CREATININE, CA) 10:43:00 [facility] MAGNESIUM 2022-05-11 Alberto Amos Malin of 10:43:00 [facility] PHOSPHORUS 2022-05-11 [facility] of 10:43:00 [facility] PHOSPHORUS 2022-05-11 Rios [facility] of 10:43:00 [facility] MAGNESIUM 2022-05-11 Alberto Amos Malin of 10:43:00 [facility] BASIC METABOLIC PANEL (NA, K, CL, 2022-05-11 AkirailAlberto chahal Malin of CO2, GLUCOSE, BUN, CREATININE, CA) 10:43:00 [facility] CBC WITH DIFF 2022-05-11 [place], [facility] of 10:43:00 [facility] PHOSPHORUS 2022-05-11 [facility] of 10:43:00 [facility] MAGNESIUM 2022-05-11 [facility] of 10:43:00 [facility] BASIC METABOLIC PANEL (NA, K, CL, 2022-05-11 [facility] of CO2, GLUCOSE, BUN, CREATININE, CA) 10:43:00 [facility] CBC WITH DIFF 2022-05-11 Akirailtirso [facility] of 10:43:00 [facility] TRANSTHORACIC ECHO (TTE) COMPLETE 2022-05-10 , [facility] of 17:06:05 [facility] TRANSTHORACIC ECHO (TTE) COMPLETE 2022-05-10 , [facility] of 17:06:05 [facility] TRANSTHORACIC ECHO (TTE) COMPLETE 2022-05-10 , [facility] of 17:06:05 [facility] MRSA / MSSA SCREEN BY PCR, [facility] 2022-05-10 [facility] 12:27:00 [facility] MRSA / MSSA SCREEN BY PCR, [facility] 2022-05-10 [facility] of 12:27:00 [facility] MRSA / MSSA SCREEN BY PCR, [facility] 2022-05-10 [facility] of 12:27:00 [facility] VITAMIN D, 25-[place] 2022-05-10 , [facility] of 12:20:00 [facility] VITAMIN D, 25-OH 2022-05-10 , [facility] of 12:20:00 [facility] VITAMIN D, 25-[place] 2022-05-10 , [facility] of 12:20:00 [facility] BASIC METABOLIC PANEL (NA, K, CL, 2022-05-10 , [facility] of CO2, GLUCOSE, BUN, CREATININE, CA) 12:19:00 [facility] MAGNESIUM 2022-05-10 , [facility] of 12:19:00 [facility] MAGNESIUM 2022-05-10 Abbi, [facility] of 12:19:00 [facility] BASIC METABOLIC PANEL (NA, K, CL, 2022-05-10 , [facility] of CO2, GLUCOSE, BUN, CREATININE, CA) 12:19:00 [facility] MAGNESIUM 2022-05-10 Abbi, [facility] of 12:19:00 [facility] BASIC METABOLIC PANEL (NA, K, CL, 2022-05-10 Abbi [facility] of CO2, GLUCOSE, BUN, CREATININE, CA) 12:19:00 [facility] HEPATITIS B SURFACE ANTIBODY 2022-05-10 Feliberto Galicia Un iversity of 07:11:00 [facility] HBC ANTIBODY (IGM & IGG) 2022-05-10 Feliberto Galicia Univer sity of 07:11:00 [facility] CA-125 2022-05-10 [facility] of 07:11:00 [facility] CARCINOEMBRYONIC ANTIGEN 2022-05-10 [facility] ity of 07:11:00 [facility] CARCINOEMBRYONIC ANTIGEN 2022-05-10 [facility] ity of 07:11:00 [facility] CA-125 2022-05-10 [facility] of 07:11:00 [facility] HEPATITIS B SURFACE ANTIBODY 2022-05-10 Feliberto Galicia Un iversity of 07:11:00 [facility] HBC ANTIBODY (IGM & IGG) 2022-05-10 Feliberto Galicia Univer sity of 07:11:00 [facility] CARCINOEMBRYONIC ANTIGEN 2022-05-10 [facility] ity of 07:11:00 [facility] CA-125 2022-05-10 [facility] of 07:11:00 [facility] HEPATITIS B SURFACE ANTIBODY 2022-05-10 Feliberto Galicia Un iversity of 07:11:00 [facility] HBC ANTIBODY (IGM & IGG) 2022-05-10 Feliberto Galicia Univer sity of 07:11:00 [facility] HB ECG ROUTINE & RHYTHM STRIP 2022-05-10 Abbi [facility] Un iversity of 04:47:45 [facility] HB ECG ROUTINE & RHYTHM STRIP 2022-05-10 Abbi [facility] Un iversity of 04:47:45 [facility] HB ECG ROUTINE & RHYTHM STRIP 2022-05-10 Abbi, [facility] iversity of 04:47:45 [facility] ACUTE CARE VENOUS BLOOD GAS 2022-05-10 Abbi, [facility] ersity of 04:26:00 [facility] ACUTE CARE VENOUS BLOOD GAS 2022-05-10 Abbi, [facility] ersity of 04:26: [facility] ACUTE CARE VENOUS BLOOD GAS 2022-05-10 Abbi, [facility] ersity of 04:26:00 [facility] CBC WITH DIFF 2022-05-10 , [facility] of 04:13:00 [facility] BASIC METABOLIC PANEL (NA, K, CL, 2022-05-10 Abbi, [facility] of CO2, GLUCOSE, BUN, CREATININE, CA) 04:13: [facility] MAGNESIUM 2022-05-10 Abbi, [facility] of 04:13:00 [facility] PHOSPHORUS 2022-05-10 Abbi, [facility] of 04:13:00 [facility] HEPATITIS B SURFACE ANTIGEN 2022-05-10 Feliberto Galicia Uni versity of 04:13:00 [facility] PHOSPHORUS 2022-05-10 Abbi, [facility] of 04:13:00 [facility] MAGNESIUM 2022-05-10 Abbi, [facility] of 04:13:00 [facility] BASIC METABOLIC PANEL (NA, K, CL, 2022-05-10 Abbi, [facility] of CO2, GLUCOSE, BUN, CREATININE, CA) 04:13: [facility] CBC WITH DIFF 2022-05-10 , [facility] of 04:13:00 [facility] HEPATITIS B SURFACE ANTIGEN 2022-05-10 Joey Galiciad Uni versity of 04:13:00 [facility] PHOSPHORUS 2022-05-10 Abbi, [facility] of 04:13:00 [facility] MAGNESIUM 2022-05-10 Abbi, [facility] of 04:13:00 [facility] BASIC METABOLIC PANEL (NA, K, CL, 2022-05-10 Abbi, [facility] of CO2, GLUCOSE, BUN, CREATININE, CA) 04:13: [facility] CBC WITH DIFF 2022-05-10 , [facility] of 04:13:00 [facility] HEPATITIS B SURFACE ANTIGEN 2022-05-10 Feliberto Galicia Uni versity of 04:13:00 Tavo [facility] POCT GLUCOSE (AUTOMATED) 2022-05-10 Ld [facility] ity of 01:42:00 [facility] POCT GLUCOSE (AUTOMATED) 2022-05-10 L[facility] ity of 01:42:00 [facility] POCT GLUCOSE (AUTOMATED) 2022-05-10 L[facility] ity of 01:42:00 [facility] POCT GLUCOSE (AUTOMATED) 2022-05-10 L[facility] ity of 01:10:00 [facility] POCT GLUCOSE (AUTOMATED) 2022-05-10 Ld Mora ity of 01:10:00 [facility] POCT GLUCOSE (AUTOMATED) 2022-05-10 Ld Mora ity of 01:10:00 [facility] ABG+COOX+NA+K+GLU+CA2+ 2022-05-10 Ld [facility] Universit y of 00:36:00 [facility] ABG+COOX+NA+K+GLU+CA2+ 2022-05-10 Ld [facility] y of 00:36:00 [facility] ABG+COOX+NA+K+GLU+CA2+ 2022-05-10 L[facility] of 00:36:00 [facility] POTASSIUM SERUM 2022-05-10 Ld Mora of 00:19:00 [facility] POTASSIUM SERUM 2022-05-10 Ld Mora of 00:19:00 [facility] POTASSIUM SERUM 2022-05-10 Ld Mora of 00:19:00 [facility] N-TERMINAL PRO-BNP 2022-05-09 Ld Mora of 23:06:00 [facility] COMP. METABOLIC PANEL ([id number]) 2022-05-09 Ld Mora Un iversity of 23:06:00 [facility] MAGNESIUM 2022-05-09 Ld Mora Malin of 23:06:00 [facility] TROPONIN I 2022-05-09 Ld Mora of 23:06:00 [facility] MAGNESIUM 2022-05-09 Ld Mora of 23:06:00 [facility] TROPONIN I 2022-05-09 Ld Mora of 23:06:00 [facility] COMP. METABOLIC PANEL ([id number]) 2022-05-09 Ld Mora Un iversity of 23:06:00 [facility] N-TERMINAL PRO-BNP 2022-05-09 Ld Mora of 23:06:00 [facility] MAGNESIUM 2022-05-09 Ld Mora Malin of 23:06:00 [facility] TROPONIN I 2022-05-09 Ld Mora of 23:06:00 [facility] COMP. METABOLIC PANEL ([id number]) 2022-05-09 Ld Mora Un iversity of 23:06:00 [facility] N-TERMINAL PRO-BNP 2022-05-09 Ld Mora of 23:06:00 [facility] HB ECG ROUTINE & RHYTHM STRIP 2022-05-09 Ld Mora Un iversity of 22:37:22 [facility] HB ECG ROUTINE & RHYTHM STRIP 2022-05-09 Ld Mora Un iversity of 22:37:22 [facility] HB ECG ROUTINE & RHYTHM STRIP 2022-05-09 Ld Mora Un iversity of 22:37:[address] [facility] [address] THORAX WO CONTRAST 2022-05-09 Ld Mora of 22:24:17 [facility] CT THORAX WO CONTRAST 2022-05-09 Ld Mora of 22:24:[address] [facility] [address] THORAX WO CONTRAST 2022-05-09 Ld Mora of 22:24:17 [facility] MARK AURIS SURVEILLANCE BY PCR 2022-05-09 Ld Mora [facility] (INFECTION CONTROL PURPOSES) 21:58:00 [facility] CBC WITH DIFF 2022-05-09 Ld Mora of 21:58:00 [facility] CBC WITH DIFF 2022-05-09 Ld Mora of 21:58:00 [facility] MARK AURIS SURVEILLANCE BY PCR 2022-05-09 Ld Mora [facility] (INFECTION CONTROL PURPOSES) 21:58:00 Darian as [facility] Branch CBC WITH DIFF 2022-05-09 Ld Mora [facility] 21:58:00 [facility] MARK AURIS SURVEILLANCE BY PCR 2022-05-09 Ld Mora [facility] (INFECTION CONTROL PURPOSES) 21:58:00 Darian as [facility] DISCLOSURE AND CONSENT, [facility] 2022-05-09 [facility] AND SURGICAL PROCEDURES 06:01:00 Unassigned, No [facility] dical Name Branch HOSPITAL ADMISSION 2022-05-09 [facility] 06:01:00 Unassigned, No [facility] EXTERNAL PROVIDER RECORDS 2022-05-09 [facility] sity of 06:01:00 Unassigned, No [facility] DISCLOSURE AND CONSENT, [facility] 2022-05-09 [facility] AND SURGICAL PROCEDURES 06:01:00 Unassigned, No [facility] dical Name Branch HOSPITAL ADMISSION 2022-05-09 [facility] 06:01:00 Unassigned, No [facility] EXTERNAL PROVIDER RECORDS 2022-05-09 [facility] sity of 06:01:00 Unassigned, No [facility] DISCLOSURE AND CONSENT, [facility] 2022-05-09 [facility] AND SURGICAL PROCEDURES 06:01:00 Unassigned, No [facility] dical Name Branch HOSPITAL ADMISSION 2022-05-09 [facility] 06:01:00 Unassigned, No [place] [facility] EKG-12 LEAD 2021-12-25 Reshma [facility] 18:40:28 [facility] CONSENT/REFUSAL FOR DIAGNOSIS AND 2021-12-25 [facility] of TREATMENT 18:09:35 Unassigned, No [facility] TTE COMPLETE, WO CONTRAST, W 2021-12-18 Met Vineet hodist DOPPLER ([id number]) 13:28:00 [facility] HEPATITIS B SURFACE ANTIGEN 2021-12-17 Mamie Andrew Me thodist 17:24:00 [facility] HEPATITIS B SURFACE AB, 2021-12-17 Mamie Andrew Method ist QUANTITATIVE 17:24:00 [facility] HEPATITIS B SURFACE ANTIBODY 2021-12-17 Mamie Andrewodi 17:24:00 Hospital HEMODIALYSIS 2021-12-17 Mamie Andrew Confucianist 13:44:21 Hospital POC GLUCOSE 2021-12-16 Laeeq, Rakel Tompkinsist 22:03:[address] ANGIOGRAM PE CHEST 2021-12-16 Laeeq, Rakel Tompkinsis t 21:37:19 Hospital CBC WITH PLATELET AND DIFFERENTIAL 2021-12-16 Laeeq, Rakel Mcguire Confucianist 17:59:00 Hospital VANCOMYCIN LEVEL, RANDOM 2021-12-16 Laeeq, Rakel Mcguire Metho dist 17:59:00 Hospital LACTIC ACID LEVEL 2021-12-16 Laeeq, Rakel Mcguire Confucianist 17:55:00 Hospital PROTHROMBIN TIME WITH INR 2021-12-16 Laeeq, Rakel Hernandeza Meth odist 17:55:00 Hospital COMPREHENSIVE METABOLIC PANEL 2021-12-16 Laeeq, Rakel Mcguire Confucianist 17:25:00 Hospital MAGNESIUM LEVEL 2021-12-16 Laeeq, Rakel Mcguire Confucianist 17:25:00 Hospital PHOSPHORUS LEVEL 2021-12-16 Laeeq, Rakeltenzin Hernandeza Confucianist 17:25:00 Hospital AMMONIA LEVEL 2021-12-16 Laeeq, Rakeletnzin Mcguire Confucianist 17:25:00 Hospital ESTIMATED GFR 2021-12-16 Laeeq, Rakel Mcguire Confucianist 17:25:[address] HEAD WO CONTRAST 2021-12-16 Laeeq, Rakel Mcguire Confucianist 13:16:29 Hospital EEG AWAKE/ASLEEP LESS THAN 41 MIN 2021-12-16 Laeeq, Rakel domingo Confucianist 11:26:21 Hospital ARTERIAL BLOOD GAS 2021-12-16 Erica Velasco Confucianist 02:54:00 [facility] XR CHEST 1 VW PORTABLE 2021-12-16 Laeeq, Rakel Tompkinsi st 01:57:17 Hospital TRANSFUSE RED BLOOD CELLS 2021-12-16 Laeeq, Rakel White odist 00:57:00 Hospital ARTERIAL BLOOD GAS 2021-12-16 Laeeq, Rakeltenzin Mcguire Confucianist 00:51:00 Hospital ARTERIAL BLOOD GAS 2021-12-15 Virgilio Purvis 21:42:00 [facility] [place] < 1 HOUR 2021-12-15 Abbi Bunny Confucianist 20:00:00 Hospital ARTERIAL BLOOD GAS, CORRECTED 2021-12-15 Laeeq, Rakel Maynor Confucianist 19:30:00 Hospital SODIUM LEVEL, SYRINGE 2021-12-15 Laeeq, Rakel Maynor Methodis t 19:30:00 Hospital POTASSIUM, SYRINGE 2021-12-15 Laeeq, Rakel Maynor Confucianist 19:30:00 Hospital HEMOGLOBIN, SYRINGE 2021-12-15 Laeeq, Rakel Maynor Confucianist 19:30:00 Hospital IONIZED CALCIUM, ARTERIAL 2021-12-15 Laeeq, Rakel Maynor Meth odist 19:30:00 Hospital GLUCOSE LEVEL, SYRINGE 2021-12-15 Laeeq, Rakel Maynor Methodi st 19:30:00 Hospital MAGNESIUM LEVEL 2021-12-15 Laeeq, Rakel Maynor Confucianist 19:30:00 Hospital ANAEROBIC CULTURE 2021-12-15 Abbi, Bunny Confucianist 19:11:00 Hospital FUNGUS CULTURE 2021-12-15 Abbi, Bunny Confucianist 19:11:00 Hospital TISSUE CULTURE 2021-12-15 Abbi, Bunny Confucianist 19:11:00 Hospital AFB CULTURE 2021-12-15 Abbi, Bunny Confucianist 19:11:00 Hospital GRAM STAIN 2021-12-15 Abbi, Bunny Confucianist 19:11:00 Hospital AFB STAIN 2021-12-15 Abbi, Bunny Confucianist 19:11:00 Hospital TRANSFUSE RED BLOOD CELLS 2021-12-15 Dallas Kowalski Method ist 18:37:00 [facility] ARTERIAL BLOOD GAS, CORRECTED 2021-12-15 Laeeq, Rakel Maynor Confucianist 17:51:00 Hospital SODIUM LEVEL, SYRINGE 2021-12-15 Laeeq, Rakel Maynor Methodis t 17:51:00 Hospital POTASSIUM, SYRINGE 2021-12-15 Laeeq, Rakel Maynor Confucianist 17:51:00 Hospital HEMOGLOBIN, SYRINGE 2021-12-15 Laeeq, Rakel Maynor Confucianist 17:51:00 Hospital IONIZED CALCIUM, ARTERIAL 2021-12-15 Laeeq, Rakel Maynor Meth odist 17:51:00 Hospital GLUCOSE LEVEL, SYRINGE 2021-12-15 Laeeq, Rakel Maynor Methodi st 17:51:00 Hospital MAGNESIUM LEVEL 2021-12-15 Laeeq, Rakel Maynor Confucianist 17:51:00 Hospital MD AN ELECTIVE SUPRAGLOTTIC AIRWAY 2021-12-15 Rosmery Kowalskiist 15:01:00 [facility] Extensive Revision AV Fistula 2021-12-15 Bunny Go thodist 14:41:00 [place] [id number] ANTI-SPIKE IGG ANTIBODY 2021-12-15 Suresh Ambrose Confucianist TITER 10:57:00 [facility] CBC WITH PLATELET AND DIFFERENTIAL 2021-12-15 Laeeq, Rakel Mcguire Confucianist 10:57:00 Hospital COMPREHENSIVE METABOLIC PANEL 2021-12-15 Laeeq, Rakeltenzin Mcguire Confucianist 10:57:00 Hospital MAGNESIUM LEVEL 2021-12-15 Laeeq, Rakel Tompkinsist 10:57:00 Hospital PHOSPHORUS LEVEL 2021-12-15 Laeeq, Rakel Mcguire Confucianist 10:57:00 Hospital PROTHROMBIN TIME WITH INR 2021-12-15 Alex, Rakel Mcguire Meth odist 10:57:00 [place] [id number] SEROLOGY PATIENT 2021-12-15 Damion Ambrose odenedina SURVEILLANCE 10:57:00 [facility] ESTIMATED GFR 2021-12-15 Laeeq, Rakel Mcguire Confucianist 10:57:00 Hospital PARTIAL THROMBOPLASTIN TIME (PTT) 2021-12-15 Damion Ambrose 10:57:00 [facility] ESTIMATED GFR 2021-12-15 Laeeq, Rakel Tompkinsist 10:28:00 Hospital BASIC METABOLIC PANEL 2021-12-14 Ajith Mejía 23:49:00 Hospital ESTIMATED GFR 2021-12-14 Ajith Mejía 23:49:00 Hospital PREPARE RBC 2021-12-14 Laeeq, Rakel Tompkinsist 20:13:00 Hospital PROTHROMBIN TIME WITH INR 2021-12-14 Leda Cordero 20:13:00 [facility] PARTIAL THROMBOPLASTIN TIME (PTT) 2021-12-14 [facility] Cordero 20:13:00 [facility] XR CHEST 1 VW PORTABLE 2021-12-14 [facility] Cordero 19:02:38 [facility] BASIC METABOLIC PANEL 2021-12-14 Ajith Mejía 15:41:00 Hospital ESTIMATED GFR 2021-12-14 Ajith Mejía 15:41:00 Hospital HEMODIALYSIS 2021-12-14 [facility] Tamayo 14:50:32 [facility] CBC WITH PLATELET AND DIFFERENTIAL 2021-12-14 Alma Whitman 10:48:00 [facility] ESTIMATED GFR 2021-12-14 Alma Whitman 09:39:00 [facility] LACTIC ACID LEVEL, SEPSIS - NOW 2021-12-14 Alma Whitman AND REPEAT 2X EVERY 3 HOURS 05:01:00 [facility] POC GLUCOSE 2021-12-14 Alma Whitman 03:32:00 [facility] POC GLUCOSE 2021-12-14 Alma Whitman 02:40:00 [facility] ECG 12-LEAD 2021-12-14 Alma Whitman 02:14:56 [facility] POC GLUCOSE 2021-12-14 Alma Whitman 02:00:00 [facility] COVID-19 QUALITATIVE RT-PCR 2021-12-14 Pratibha Hummel 01:49:00 [place] [facility] LACTIC ACID LEVEL, SEPSIS - NOW 2021-12-14 Alma Whitman AND REPEAT 2X EVERY 3 HOURS 01:49:00 [facility] LACTIC ACID LEVEL, SEPSIS - NOW 2021-12-14 Alma Whitman AND REPEAT 2X EVERY 3 HOURS 00:13:00 [facility] BASIC METABOLIC PANEL 2021-12-14 Pratibha Hummel 00:13:00 [facility] CBC WITH PLATELET AND DIFFERENTIAL 2021-12-14 Pratibha Hummel 00:13:00 [facility] HEPATIC FUNCTION PANEL 2021-12-14 Pratibha Hummel 00:13:00 [facility] ESTIMATED GFR 2021-12-14 Pratibha Hummel 00:13:00 [facility] BLOOD CULTURE, AEROBIC & ANAEROBIC 2021-12-14 Pratibha Hummel 00:12:00 [facility] MD CRITICAL CARE ILL/INJURED 2021-12-13 Pratibha Hummel PATIENT INIT 30-74 MIN 22:29:38 [facility] ECG ED PRELIMINARY INTERPRETATION 2021-12-13 Pratibha Hummel 22:29:38 [facility] Drainage of Pleural Cavity via [facility] Chest Tube Open Reduction of Fracture of [facility] Multiple Ribs with Internal Fixation Insertion of Stent into Subclavian [facility] Artery Insertion of Stent into Aorta [facility] Splenectomy [facility] Plan of Care Planned Activity Planned Date Details Comments Source Future Scheduled 2022-12-02 Screening for [facility] Test 14:58:07 malignant neoplasm of colon (procedure) [code = [id number]] Future Scheduled 2022-12-02 Screening for [facility] Test 14:58:07 malignant neoplasm of colon (procedure) [code = [id number]] Future Scheduled 2022-12-02 Screening for [facility] Test 14:58:07 malignant neoplasm of colon (procedure) [code = [id number]] Future Scheduled 2022-12-02 Pneumococcal Vaccine: [facility] Test 14:58:07 Pediatrics (0 to 5 Years) and At-Risk Patients (6 to 64 Years) (1 - PCV) [code = Pneumococcal Vaccine: Pediatrics (0 to 5 Years) and At-Risk Patients (6 to 64 Years) (1 - PCV)] Future Scheduled 2022-12-02 [facility] 14:58:07 VACCINE (1 of 4 - Increased Risk) [code = MENINGOCOCCAL B SERIES VACCINE (1 of 4 - Increased Risk)] Future Scheduled 2022-12-02 Hepatitis C screening [facility] Test 14:58:07 (procedure) [code = 563329515] Future Scheduled 2022-12-02 Screening for [facility] Test 14:58:07 malignant neoplasm of colon (procedure) [code = [id number]] Future Scheduled 2022-12-02 Screening for [facility] Test 14:58:07 malignant neoplasm of colon (procedure) [code = [id number]] Future Scheduled 2022-12-02 COVID-19 VACCINE (3 - [facility] Test 14:58:07 Pfizer series) [code = COVID-19 VACCINE (3 - Pfizer series)] Future Scheduled 2022-12-02 [facility] 14:58:07 [code = INFLUENZA VACCINE (#1)] Future Scheduled 2022-12-02 Screening for [facility] Test 14:58:07 malignant neoplasm of colon (procedure) [code = 360030426] Future Scheduled 2022-12-02 Screening for [facility] Test 14:58:07 malignant neoplasm of colon (procedure) [code = 974828513] Future Scheduled 2022-12-02 Screening for [facility] Test 14:58:07 malignant neoplasm of colon (procedure) [code = 545456991] Future Scheduled 2022-12-02 Pneumococcal Vaccine: [facility] Test 14:58:07 Pediatrics (0 to 5 Years) and At-Risk Patients (6 to 64 Years) (1 - PCV) [code = Pneumococcal Vaccine: Pediatrics (0 to 5 Years) and At-Risk Patients (6 to 64 Years) (1 - PCV)] Future Scheduled 2022-12-02 [facility]CCAL [facility] 14:58:07 VACCINE (1 of 4 - Increased Risk) [code = MENINGOCOCCAL B SERIES VACCINE (1 of 4 - Increased Risk)] Future Scheduled 2022-12-02 Hepatitis C screening [facility] Test 14:58:07 (procedure) [code = 132509964] Future Scheduled 2022-12-02 Screening for [facility] Test 14:58:07 malignant neoplasm of colon (procedure) [code = 983652780] Future Scheduled 2022-12-02 Screening for [facility] Test 14:58:07 malignant neoplasm of colon (procedure) [code = 857407279] Future Scheduled 2022-12-02 COVID-19 VACCINE (3 - [facility] Test 14:58:07 Pfizer series) [code = COVID-19 VACCINE (3 - Pfizer series)] Future Scheduled 2022-12-02 [facility]ACC[facility] 14:58:07 [code = INFLUENZA VACCINE (#1)] Future Scheduled 2022-09-13 Screening for [facility] Test 09:51:25 malignant neoplasm of colon (procedure) [code = 325578530] Future Scheduled 2022-09-13 Screening for [facility] Test 09:51:25 malignant neoplasm of colon (procedure) [code = 574709968] Future Scheduled 2022-09-13 Screening for [facility] Test 09:51:25 malignant neoplasm of colon (procedure) [code = 062531819] Future Scheduled 2022-09-13 [facility] 09:51:25 Pediatrics (0 to 5 Years) and At-Risk Patients (6 to 64 Years) (1 - PCV) [code = Pneumococcal Vaccine: Pediatrics (0 to 5 Years) and At-Risk Patients (6 to 64 Years) (1 - PCV)] Future Scheduled 2022-09-13 [facility]CCAL [facility]IES [facility] 09:51:25 VACCINE (1 of 4 - Increased Risk) [code = MENINGOCOCCAL B SERIES VACCINE (1 of 4 - Increased Risk)] Future Scheduled 2022-09-13 Hepatitis C screening [facility] Test 09:51:25 (procedure) [code = 627076166] Future Scheduled 2022-09-13 Screening for [facility] Test 09:51:25 malignant neoplasm of colon (procedure) [code = 244281891] Future Scheduled 2022-09-13 Screening for [facility] Test 09:51:25 malignant neoplasm of colon (procedure) [code = 649378330] Future Scheduled 2022-09-13 COVID-19 VACCINE (3 - [facility] Test 09:51:25 Pfizer series) [code = COVID-19 VACCINE (3 - Pfizer series)] Future Scheduled 2022-09-13 INFLUENZA VACCINE Method [facility] Test 09:51:25 [code = INFLUENZA VACCINE] Future Scheduled 2022-07-05 Pneumococcal Vaccine: [facility] Test 21:26:12 Pediatrics (0 to 5 Years) and At-Risk Patients (6 to 64 Years) (1 - PCV) [code = Pneumococcal Vaccine: Pediatrics (0 to 5 Years) and At-Risk Patients (6 to 64 Years) (1 - PCV)] Future Scheduled 2022-07-05 Hepatitis C screening [facility] Test 21:26:12 (procedure) [code = 333767919] Future Scheduled 2022-07-05 COLONOSCOPY SCREENING [facility] Test 21:26:12 [code = COLONOSCOPY SCREENING] Future Scheduled 2022-07-05 COVID-19 VACCINE (3 - [facility] Test 21:26:12 Booster for Pfizer series) [code = COVID-19 VACCINE (3 - Booster for Pfizer series)] Future Scheduled 2022-07-05 INFLUENZA VACCINE Method [facility] Test 21:26:12 [code = INFLUENZA VACCINE] Future Scheduled 2022-06-25 Pneumococcal Vaccine: [facility] Test 12:22:51 Pediatrics (0 to 5 Years) and At-Risk Patients (6 to 64 Years) (1 - PCV) [code = Pneumococcal Vaccine: Pediatrics (0 to 5 Years) and At-Risk Patients (6 to 64 Years) (1 - PCV)] Future Scheduled 2022-06-25 Hepatitis C screening [facility] Test 12:22:51 (procedure) [code = 430723947] Future Scheduled 2022-06-25 COLONOSCOPY SCREENING [facility] Test 12:22:51 [code = COLONOSCOPY SCREENING] Future Scheduled 2022-06-25 COVID-19 VACCINE (3 - [facility] Test 12:22:51 Booster for Pfizer series) [code = COVID-19 VACCINE (3 - Booster for Pfizer series)] Future Scheduled 2022-06-25 [facility]ACCINE [facility] 12:22:51 [code = INFLUENZA VACCINE] Future Scheduled 2022-06-07 Pneumococcal Vaccine: [facility] Test 09:56:39 Pediatrics (0 to 5 Years) and At-Risk Patients (6 to 64 Years) (1 - PCV) [code = Pneumococcal Vaccine: Pediatrics (0 to 5 Years) and At-Risk Patients (6 to 64 Years) (1 - PCV)] Future Scheduled 2022-06-07 Hepatitis C screening [facility] Test 09:56:39 (procedure) [code = 488117590] Future Scheduled 2022-06-07 COLONOSCOPY SCREENING [facility] Test 09:56:39 [code = COLONOSCOPY SCREENING] Future Scheduled 2022-06-07 COVID-19 VACCINE (3 - [facility] Test 09:56:39 Booster for Pfizer series) [code = COVID-19 VACCINE (3 - Booster for Pfizer series)] Future Scheduled 2022-06-07 [facility] 09:56:39 [code = INFLUENZA VACCINE] Future Scheduled 2022-06-07 Pneumococcal Vaccine: [facility] Test 09:56:39 Pediatrics (0 to 5 Years) and At-Risk Patients (6 to 64 Years) (1 - PCV) [code = Pneumococcal Vaccine: Pediatrics (0 to 5 Years) and At-Risk Patients (6 to 64 Years) (1 - PCV)] Future Scheduled 2022-06-07 Hepatitis C screening [facility] Test 09:56:39 (procedure) [code = 611046330] Future Scheduled 2022-06-07 [facility] Test 09:56:39 [code = COLONOSCOPY SCREENING] Future Scheduled 2022-06-07 COVID-[facility] VACCINE ([facility] - [facility] 09:56:39 Booster for Pfizer series) [code = COVID-19 VACCINE (3 - Booster for Pfizer series)] Future Scheduled 2022-06-07 [facility] VACCINE [facility] 09:56:39 [code = INFLUENZA VACCINE] Future Scheduled 2022-06-07 Pneumococcal Vaccine: [facility] Test 09:56:39 Pediatrics (0 to 5 Years) and At-Risk Patients (6 to 64 Years) (1 - PCV) [code = Pneumococcal Vaccine: Pediatrics (0 to 5 Years) and At-Risk Patients (6 to 64 Years) (1 - PCV)] Future Scheduled 2022-06-07 Hepatitis C screening [facility] Test 09:56:39 (procedure) [code = 486590284] Future Scheduled 2022-06-07 COLONOSCOPY SCREENING [facility] Test 09:56:39 [code = COLONOSCOPY SCREENING] Future Scheduled 2022-06-07 COVID-19 VACCINE (3 - [facility] Test 09:56:39 Booster for Pfizer series) [code = COVID-19 VACCINE (3 - Booster for Pfizer series)] Future Scheduled 2022-06-07 [facility] VACCINE [facility] 09:56:39 [code = INFLUENZA VACCINE] Future Scheduled 2022-06-07 [facility] 09:56:39 Pediatrics (0 to 5 Years) and At-Risk Patients (6 to 64 Years) (1 - PCV) [code = Pneumococcal Vaccine: Pediatrics (0 to 5 Years) and At-Risk Patients (6 to 64 Years) (1 - PCV)] Future Scheduled 2022-06-07 Hepatitis C screening [facility] Test 09:56:39 (procedure) [code = 746177314] Future Scheduled 2022-06-07 COLONOSCOPY SCREENING [facility] Test 09:56:39 [code = COLONOSCOPY SCREENING] Future Scheduled 2022-06-07 COVID-19 VACCINE ([facility] - [facility] 09:56:39 Booster for Pfizer series) [code = COVID-19 VACCINE (3 - Booster for Pfizer series)] Future Scheduled 2022-06-07 [facility]ACCINE [facility] 09:56:39 [code = INFLUENZA VACCINE] Future Scheduled 2022-06-07 Pneumococcal Vaccine: [facility] Test 09:56:39 Pediatrics (0 to 5 Years) and At-Risk Patients (6 to 64 Years) (1 - PCV) [code = Pneumococcal Vaccine: Pediatrics (0 to 5 Years) and At-Risk Patients (6 to 64 Years) (1 - PCV)] Future Scheduled 2022-06-07 Hepatitis C screening [facility] Test 09:56:39 (procedure) [code = 465461551] Future Scheduled 2022-06-07 COLONOSCOPY SCREENING [facility] Test 09:56:39 [code = COLONOSCOPY SCREENING] Future Scheduled 2022-06-07 COVID-19 VACCINE (3 - [facility] Test 09:56:39 Booster for Pfizer series) [code = COVID-19 VACCINE (3 - Booster for Pfizer series)] Future Scheduled 2022-06-07 [facility]ZA VACCINE [facility] 09:56:39 [code = INFLUENZA VACCINE] Future Scheduled 2022-06-07 Pneumococcal Vaccine: [facility] Test 09:56:39 Pediatrics (0 to 5 Years) and At-Risk Patients (6 to 64 Years) (1 - PCV) [code = Pneumococcal Vaccine: Pediatrics (0 to 5 Years) and At-Risk Patients (6 to 64 Years) (1 - PCV)] Future Scheduled 2022-06-07 Hepatitis C screening [facility] Test 09:56:39 (procedure) [code = [id number]] Future Scheduled 2022-06-07 COLONOSCOPY SCREENING [facility] Test 09:56:39 [code = COLONOSCOPY SCREENING] Future Scheduled 2022-06-07 COVID-19 VACCINE (3 - [facility] Test 09:56:39 Booster for Pfizer series) [code = COVID-19 VACCINE (3 - Booster for Pfizer series)] Future Scheduled 2022-06-07 [facility]ZA VACCINE [facility] 09:56:39 [code = INFLUENZA VACCINE] Future Scheduled 2022-05-15 COLONOSCOPY SCREENING [facility] Test 15:13:20 [code = COLONOSCOPY SCREENING] Future Scheduled 2022-05-15 COVID-19 VACCINE (3 - [facility] Test 15:13:20 Booster for Pfizer series) [code = COVID-19 VACCINE (3 - Booster for Pfizer series)] Future Scheduled 2022-05-15 INFLUENZA VACCINE Method [facility] Test 15:13:20 [code = INFLUENZA VACCINE] Future Scheduled 2022-05-15 Pneumococcal Vaccine: [facility] Test 15:13:20 Pediatrics (0 to 5 Years) and At-Risk Patients (6 to 64 Years) (1 - PCV) [code = Pneumococcal Vaccine: Pediatrics (0 to 5 Years) and At-Risk Patients (6 to 64 Years) (1 - PCV)] Future Scheduled 2022-05-15 Hepatitis C screening [facility] Test 15:13:20 (procedure) [code = 229935000] Future Scheduled 2022-05-15 COLONOSCOPY SCREENING [facility] Test 15:13:20 [code = COLONOSCOPY SCREENING] Future Scheduled 2022-05-15 COVID-19 VACCINE (3 - [facility] Test 15:13:20 Booster for Pfizer series) [code = COVID-19 VACCINE (3 - Booster for Pfizer series)] Future Scheduled 2022-05-15 INFLUENZA VACCINE [facility] Test 15:13:20 [code = INFLUENZA VACCINE] Future Scheduled 2022-05-15 Pneumococcal Vaccine: [facility] Test 15:13:20 Pediatrics (0 to 5 Years) and At-Risk Patients (6 to 64 Years) (1 - PCV) [code = Pneumococcal Vaccine: Pediatrics (0 to 5 Years) and At-Risk Patients (6 to 64 Years) (1 - PCV)] Future Scheduled 2022-05-15 Hepatitis C screening [facility] Test 15:13:20 (procedure) [code = 553350834] Future Scheduled 2022-05-15 COLONOSCOPY SCREENING [facility] Test 15:13:20 [code = COLONOSCOPY SCREENING] Future Scheduled 2022-05-15 COVID-19 VACCINE (3 - [facility] Test 15:13:20 Booster for Pfizer series) [code = COVID-19 VACCINE (3 - Booster for Pfizer series)] Future Scheduled 2022-05-15 INFLUENZA VACCINE [facility] Test 15:13:20 [code = INFLUENZA VACCINE] Future Scheduled 2022-05-15 Pneumococcal Vaccine: [facility] Test 15:13:20 Pediatrics (0 to 5 Years) and At-Risk Patients (6 to 64 Years) (1 - PCV) [code = Pneumococcal Vaccine: Pediatrics (0 to 5 Years) and At-Risk Patients (6 to 64 Years) (1 - PCV)] Future Scheduled 2022-05-15 Hepatitis C screening [facility] Test 15:13:20 (procedure) [code = 279898404] Future Scheduled 2022-05-15 COLONOSCOPY SCREENING [facility] Test 15:13:20 [code = COLONOSCOPY SCREENING] Future Scheduled 2022-05-15 COVID-19 VACCINE (3 - [facility] Test 15:13:20 Booster for Pfizer series) [code = COVID-19 VACCINE (3 - Booster for Pfizer series)] Future Scheduled 2022-05-15 INFLUENZA VACCINE [facility] Test 15:13:20 [code = INFLUENZA VACCINE] Future Scheduled 2022-05-15 Pneumococcal Vaccine: [facility] Test 15:13:20 Pediatrics (0 to 5 Years) and At-Risk Patients (6 to 64 Years) (1 - PCV) [code = Pneumococcal Vaccine: Pediatrics (0 to 5 Years) and At-Risk Patients (6 to 64 Years) (1 - PCV)] Future Scheduled 2022-05-15 Hepatitis C screening [facility] Test 15:13:20 (procedure) [code = 301324010] Future Scheduled 2022-05-10 Pneumococcal Vaccine: [facility] Test 11:00:01 Pediatrics (0 to 5 Years) and At-Risk Patients (6 to 64 Years) (1 - PCV) [code = Pneumococcal Vaccine: Pediatrics (0 to 5 Years) and At-Risk Patients (6 to 64 Years) (1 - PCV)] Future Scheduled 2022-05-10 Hepatitis C screening [facility] Test 11:00:01 (procedure) [code = 244093790] Future Scheduled 2022-05-10 COLONOSCOPY SCREENING [facility] Test 11:00:01 [code = COLONOSCOPY SCREENING] Future Scheduled 2022-05-10 COVID-19 VACCINE (3 - [facility] Test 11:00:01 Booster for Pfizer series) [code = COVID-19 VACCINE (3 - Booster for Pfizer series)] Future Scheduled 2022-05-10 INFLUENZA VACCINE [facility] Test 11:00:01 [code = INFLUENZA VACCINE] Future Scheduled 2022-04-12 [facility] 12:01:17 Pediatrics (0 to 5 Years) and At-Risk Patients (6 to 64 Years) (1 - PCV) [code = Pneumococcal Vaccine: Pediatrics (0 to 5 Years) and At-Risk Patients (6 to 64 Years) (1 - PCV)] Future Scheduled 2022-04-12 Hepatitis C screening [facility] Test 12:01:17 (procedure) [code = 437562918] Future Scheduled 2022-04-12 COLONOSCOPY SCREENING [facility] Test 12:01:17 [code = COLONOSCOPY SCREENING] Future Scheduled 2022-04-12 COVID-19 VACCINE (3 - [facility] Test 12:01:17 Booster for Pfizer series) [code = COVID-19 VACCINE (3 - Booster for Pfizer series)] Future Scheduled 2022-04-12 INFLUENZA VACCINE Method [facility] Test 12:01:17 [code = INFLUENZA VACCINE] Future Scheduled 2022-04-12 Pneumococcal Vaccine: [facility] Test 12:01:17 Pediatrics (0 to 5 Years) and At-Risk Patients (6 to 64 Years) (1 - PCV) [code = Pneumococcal Vaccine: Pediatrics (0 to 5 Years) and At-Risk Patients (6 to 64 Years) (1 - PCV)] Future Scheduled 2022-04-12 Hepatitis C screening [facility] Test 12:01:17 (procedure) [code = 511774511] Future Scheduled 2022-04-12 COLONOSCOPY SCREENING [facility] Test 12:01:17 [code = COLONOSCOPY SCREENING] Future Scheduled 2022-04-12 COVID-19 VACCINE (3 - [facility] Test 12:01:17 Booster for Pfizer series) [code = COVID-19 VACCINE (3 - Booster for Pfizer series)] Future Scheduled 2022-04-12 INFLUENZA VACCINE Method [facility] Test 12:01:17 [code = INFLUENZA VACCINE] Future Scheduled 2022-04-12 Pneumococcal Vaccine: [facility] Test 12:01:17 Pediatrics (0 to 5 Years) and At-Risk Patients (6 to 64 Years) (1 - PCV) [code = Pneumococcal Vaccine: Pediatrics (0 to 5 Years) and At-Risk Patients (6 to 64 Years) (1 - PCV)] Future Scheduled 2022-04-12 Hepatitis C screening [facility] Test 12:01:17 (procedure) [code = 071203734] Future Scheduled 2022-04-12 COLONOSCOPY SCREENING [facility] Test 12:01:17 [code = COLONOSCOPY SCREENING] Future Scheduled 2022-04-12 COVID-19 VACCINE (3 - [facility] Test 12:01:17 Booster for Pfizer series) [code = COVID-19 VACCINE (3 - Booster for Pfizer series)] Future Scheduled 2022-04-12 INFLUENZA VACCINE Method [facility] Test 12:01:17 [code = INFLUENZA VACCINE] Future Scheduled 2022-04-12 Pneumococcal Vaccine: [facility] Test 12:01:17 Pediatrics (0 to 5 Years) and At-Risk Patients (6 to 64 Years) (1 - PCV) [code = Pneumococcal Vaccine: Pediatrics (0 to 5 Years) and At-Risk Patients (6 to 64 Years) (1 - PCV)] Future Scheduled 2022-04-12 Hepatitis C screening [facility] Test 12:01:17 (procedure) [code = 327291437] Future Scheduled 2022-04-12 COLONOSCOPY SCREENING [facility] Test 12:01:17 [code = COLONOSCOPY SCREENING] Future Scheduled 2022-04-12 COVID-19 VACCINE (3 - [facility] Test 12:01:17 Booster for Pfizer series) [code = COVID-19 VACCINE (3 - Booster for Pfizer series)] Future Scheduled 2022-04-12 INFLUENZA VACCINE Method [facility] Test 12:01:17 [code = INFLUENZA VACCINE] Future Scheduled 2022-04-12 Pneumococcal Vaccine: [facility] Test 12:01:17 Pediatrics (0 to 5 Years) and At-Risk Patients (6 to 64 Years) (1 - PCV) [code = Pneumococcal Vaccine: Pediatrics (0 to 5 Years) and At-Risk Patients (6 to 64 Years) (1 - PCV)] Future Scheduled 2022-04-12 Hepatitis C screening [facility] Test 12:01:17 (procedure) [code = 870729977] Future Scheduled 2022-04-12 COLONOSCOPY SCREENING [facility] Test 12:01:17 [code = COLONOSCOPY SCREENING] Future Scheduled 2022-04-12 COVID-19 VACCINE (3 - [facility] Test 12:01:17 Booster for Pfizer series) [code = COVID-19 VACCINE (3 - Booster for Pfizer series)] Future Scheduled 2022-04-12 INFLUENZA VACCINE Method [facility] Test 12:01:17 [code = INFLUENZA VACCINE] Future Scheduled 2021-12-30 HEPATITIS B VACCINES Met [facility] Test 03:33:27 (1 of 3 - 3-dose series) [code = HEPATITIS B VACCINES (1 of 3 - 3-dose series)] Future Scheduled 2021-12-30 Pneumococcal Vaccine: [facility] Test 03:33:27 Pediatrics (0 to 5 Years) and At-Risk Patients (6 to 64 Years) (1 - PCV) [code = Pneumococcal Vaccine: Pediatrics (0 to 5 Years) and At-Risk Patients (6 to 64 Years) (1 - PCV)] Future Scheduled 2021-12-30 Hepatitis C screening [facility] Test 03:33:27 (procedure) [code = 580880812] Future Scheduled 2021-12-30 COLONOSCOPY SCREENING [facility] Test 03:33:27 [code = COLONOSCOPY SCREENING] Future Scheduled 2021-12-30 COVID-19 VACCINE (3 - [facility] Test 03:33:27 Booster for Pfizer series) [code = COVID-19 VACCINE (3 - Booster for Pfizer series)] Future Scheduled 2021-12-30 INFLUENZA VACCINE Method [facility] Test 03:33:27 [code = INFLUENZA VACCINE] Future Scheduled 2021-11-29 HEPATITIS B VACCINES Met [facility] Test 05:50:55 (1 of 3 - 3-dose series) [code = HEPATITIS B VACCINES (1 of 3 - 3-dose series)] Future Scheduled 2021-11-29 COVID-19 VACCINE (#1) [facility] Test 05:50:55 [code = COVID-19 VACCINE (#1)] Future Scheduled 2021-11-29 Pneumococcal Vaccine: [facility] Test 05:50:55 Pediatrics (0 to 5 Years) and At-Risk Patients (6 to 64 Years) (1 - PCV) [code = Pneumococcal Vaccine: Pediatrics (0 to 5 Years) and At-Risk Patients (6 to 64 Years) (1 - PCV)] Future Scheduled 2021-11-29 Hepatitis C screening [facility] Test 05:50:55 (procedure) [code = [id number]] Future Scheduled 2021-11-29 COLONOSCOPY SCREENING [facility] Test 05:50:55 [code = COLONOSCOPY SCREENING] Future Scheduled 2021-11-29 INFLUENZA VACCINE Method [facility] Test 05:50:55 [code = INFLUENZA VACCINE] Future Scheduled 2021-11-29 HEPATITIS B VACCINES Met [facility] Test 05:50:55 (1 of 3 - 3-dose series) [code = HEPATITIS B VACCINES (1 of 3 - 3-dose series)] Future Scheduled 2021-11-29 COVID-19 VACCINE (#1) [facility] Test 05:50:55 [code = COVID-19 VACCINE (#1)] Future Scheduled 2021-11-29 Pneumococcal Vaccine: [facility] Test 05:50:55 Pediatrics (0 to 5 Years) and At-Risk Patients (6 to 64 Years) (1 - PCV) [code = Pneumococcal Vaccine: Pediatrics (0 to 5 Years) and At-Risk Patients (6 to 64 Years) (1 - PCV)] Future Scheduled 2021-11-29 Hepatitis C screening [facility] Test 05:50:55 (procedure) [code = [id number]] Future Scheduled 2021-11-29 COLONOSCOPY SCREENING [facility] Test 05:50:55 [code = COLONOSCOPY SCREENING] Future Scheduled 2021-11-29 INFLUENZA VACCINE Method [facility] Test 05:50:55 [code = INFLUENZA VACCINE] Future Scheduled 2021-11-29 HEPATITIS B VACCINES Met [facility] Test 05:50:55 (1 of 3 - 3-dose series) [code = HEPATITIS B VACCINES (1 of 3 - 3-dose series)] Future Scheduled 2021-11-29 COVID-19 VACCINE (#1) [facility] Test 05:50:55 [code = COVID-19 VACCINE (#1)] Future Scheduled 2021-11-29 Pneumococcal Vaccine: [facility] Test 05:50:55 Pediatrics (0 to 5 Years) and At-Risk Patients (6 to 64 Years) (1 - PCV) [code = Pneumococcal Vaccine: Pediatrics (0 to 5 Years) and At-Risk Patients (6 to 64 Years) (1 - PCV)] Future Scheduled 2021-11-29 Hepatitis C screening [facility] Test 05:50:55 (procedure) [code = 529627457] Future Scheduled 2021-11-29 COLONOSCOPY SCREENING [facility] Test 05:50:55 [code = COLONOSCOPY SCREENING] Future Scheduled 2021-11-29 INFLUENZA VACCINE Method [facility] Test 05:50:55 [code = INFLUENZA VACCINE] Future Scheduled 2021-11-29 HEPATITIS B VACCINES Met [facility] Test 05:50:55 (1 of 3 - 3-dose series) [code = HEPATITIS B VACCINES (1 of 3 - 3-dose series)] Future Scheduled 2021-11-29 COVID-19 VACCINE (#1) [facility] Test 05:50:55 [code = COVID-19 VACCINE (#1)] Future Scheduled 2021-11-29 Pneumococcal Vaccine: [facility] Test 05:50:55 Pediatrics (0 to 5 Years) and At-Risk Patients (6 to 64 Years) (1 - PCV) [code = Pneumococcal Vaccine: Pediatrics (0 to 5 Years) and At-Risk Patients (6 to 64 Years) (1 - PCV)] Future Scheduled 2021-11-29 Hepatitis C screening [facility] Test 05:50:55 (procedure) [code = 975882912] Future Scheduled 2021-11-29 COLONOSCOPY SCREENING [facility] Test 05:50:55 [code = COLONOSCOPY SCREENING] Future Scheduled 2021-11-29 INFLUENZA VACCINE Method [facility] Test 05:50:55 [code = [...] Future Scheduled 2021-11-16 HEPATITIS B VACCINES Met [facility] Test 04:27:12 (1 of 3 - 3-dose series) [code = HEPATITIS B VACCINES (1 of 3 - 3-dose series)] Future Scheduled 2021-11-16 COVID-19 VACCINE (#1) [facility] Test 04:27:12 [code = COVID-19 VACCINE (#1)] Future Scheduled 2021-11-16 Pneumococcal Vaccine: [facility] Test 04:27:12 Pediatrics (0 to 5 Years) and At-Risk Patients (6 to 64 Years) (1 - PCV) [code = Pneumococcal Vaccine: Pediatrics (0 to 5 Years) and At-Risk Patients (6 to 64 Years) (1 - PCV)] Future Scheduled 2021-11-16 Hepatitis C screening [facility] Test 04:27:12 (procedure) [code = 555735714] Future Scheduled 2021-11-16 INFLUENZA VACCINE Method [facility] Test 04:27:12 [code = INFLUENZA VACCINE] Diagnostic [...] DEPRESSION SCREENING (12+)] Diagnostic Test 2019-02-21 17-hydroxyprogesterone [facility] Pending 00:00:00 , quantitative, serum [...] Luke s Test 00:00:00 (procedure) [code = [facility] 92753830] Future Scheduled [address] [facility] Test 00:00:00 (procedure) [code = [facility] 23550874] Future Scheduled [address] [facility] Test 00:00:00 (procedure) [code = [facility] 53403905] Future Scheduled [address] [facility] Test 00:00:00 (procedure) [code = [facility] 07139714] Future Scheduled [address] [facility] Test 00:00:00 (procedure) [code = [facility] 98353308] Future Scheduled 1994 DTAP/TDAP/TD VACCINES [facility] [...] [facility] l Center colon (procedure) [code = 563942908] Future Scheduled [address] [facility] malignant neoplasm of [facility] Center colon (procedure) [code = 326318936] Future Scheduled [address] [facility] Test 00:00:00 malignant neoplasm [facility] colon (procedure) [code = 873344728] Future Scheduled [address] [facility] Test 00:00:00 malignant neoplasm of [facility] colon (procedure) [code = 459593292] Future Scheduled [address] [facility] Test 00:00:00 malignant neoplasm of [facility] Center colon (procedure) [code = 498933384] Future Scheduled 1975 Sigmoidoscopy [facility] [address] [facility] Test 00:00:00 malignant neoplasm of [facility] Center colon (procedure) [code = 537434004] Future Scheduled [address] [facility] Test 00:00:00 malignant neoplasm of [facility] colon (procedure) [code = 002670420] Future Scheduled [address] [facility] Test 00:00:00 (combo) [code = CT Medical C enter Colonography (combo)] Future Scheduled [address] [facility] Test 00:00:00 malignant neoplasm of [facility] Center colon (procedure) [code = 340518821] Future Scheduled [address] [facility] Test 00:00:00 malignant neoplasm of [facility] Center colon (procedure) [code = 292782866] Future Scheduled [address] [facility] Test 00:00:00 malignant neoplasm of [facility] colon (procedure) [code = 526507263] Future Scheduled [address] [facility] Test 00:00:00 malignant neoplasm of [facility] colon (procedure) [code = 590963945] Future Scheduled [address] [facility] Test 00:00:00 malignant neoplasm of [facility] colon (procedure) [code = 873269492] Future Scheduled 1975 Sigmoidoscopy [code = CH [...] Medica l Center colon (procedure) [code = 066052234] Future Scheduled [address] [facility] Test 00:00:00 malignant neoplasm of [facility] Center colon (procedure) [code = 186170908] Future Scheduled [address] [facility] Test 00:00:00 malignant neoplasm of [facility] Center colon (procedure) [code = 962309628] Future Scheduled [address] [facility] Test 00:00:00 malignant neoplasm of [facility] Center colon (procedure) [code = 608277907] Future Scheduled 1975 S[facility]oidoscopy [facility]] Medical Cente r Future Scheduled [address] [facility] Test 00:00:00 (combo) [code = CT Medical C enter Colonography (combo)] Future Scheduled [address] [facility] Test 00:00:00 malignant neoplasm of [facility] Center colon (procedure) [code = 134014627] Future Scheduled [address] [facility] Test 00:00:00 malignant neoplasm of [facility] Center colon (procedure) [code = 700408456] Future Scheduled [address] [facility] Test 00:00:00 malignant neoplasm of [facility] Center colon (procedure) [code = 077033372] Future Scheduled [address] [facility] 00:00:00 [facility]procedure) [code = 460930386] Future Scheduled 1975 Sigmoidoscopy [facility]oscopy] Medical Cente r Encounters Start End Encounter Admission Attending Care Care Encounter Source Date/Time Date/Time Type Type Clinicians Facility Department ID 2022-06-02 [id number]00 Encounter [facility] 2022-06-02 [facility] [id number] [facility] 00:[facility]:00 Encounter [facility] 2022-02-15 [facility] [id number] 10:46:[address] [place] [address] 2021-11-19 Outpatient [facility] [id number] [place] 10:07:20 [id number] [facility] 2021-10-16 Out[place] [place] [id number] [place] 14:38:07 ENRIQUE [id number] [facility] 2021-09-25 Outpatient [place] [place] [id number] [place] 09:31:27 ENRIQUE [id number] [facility] 2021-09-17 Outpatient [place] [place] [id number] [place] 10:08:53 ENRIQUE [id number] [facility] 2021-09-04 Outpatient [place] [place] [id number] [place] 12:19:20 ENRIQUE [id number] [facility] 2015-12-08 Inpatient C [facility] MED [id number] St. 18:48:00 [facility] 2022-12-21 2022-12-21 Outpatient [facility]Tod PRIV PRIV 205 [id number] [facility] 00:00:00 00:00:00 Carey [id number] Medica l 2022-12-20 2022-12-20 Outpatient [facility]Tod PRIV PRIV 205 [id number] [facility] 00:00:00 00:00:00 Carey [id number] Medica l 2022-12-17 2022-12-17 Outpatient [facility]_Tod PRIV PRIV 205 [id number] [facility] 00:00:00 00:00:00 d_J [id number] Medica l 2022-12-13 2022-12-13 Outpatient [facility]_Tod PRIV PRIV 205 [id number] [facility] 00:00:00 00:00:00 d_J [id number] Medica l 2022-11-26 2022-11-26 Outpatient [facility]_Tod PRIV PRIV 205 [id number] [facility] 00:00:00 00:00:00 d_J [id number] Medica l 2022-11-21 2022-11-21 Outpatient [facility]_Tod PRIV PRIV 205 [id number] [facility] 00:00:00 00:00:00 d_J [id number] Medica l 2022-11-12 2022-11-12 Outpatient [facility]Tod PRIV PRIV 205 [id number] [facility] 00:00:00 00:00:00 d_J [id number] Medica l 2022-11-12 2022-11-12 Outpatient [facility]_Tod PRIV PRIV 205 [id number] [facility] 00:00:00 00:00:00 d_J [id number] Medica l 2022-11-12 2022-11-12 Outpatient [facility]_Tod PRIV PRIV 205 [id number] [facility] 00:00:00 00:00:00 d_J [id number] Medica l 2022-11-12 2022-11-12 Outpatient [facility]_Tod PRIV PRIV 205 [id number] [facility] 00:00:00 00:00:00 d_J [id number] Medica l 2022-11-12 2022-11-12 Outpatient [facility]_Tod PRIV PRIV 205 [id number] [facility] 00:00:00 00:00:00 d_J [id number] Medica l 2022-11-05 2022-11-05 Outpatient [facility]_Tod PRIV PRIV 205 [id number] [facility] 00:00:00 00:00:00 d_J [id number] Medica l 2022-11-05 2022-11-05 Outpatient [facility]Tod PRIV PRIV 205 [id number] [facility] 00:00:00 00:00:00 d_J [id number] Medica l 2022-11-01 2022-11-01 Outpatient [facility]_Tod PRIV PRIV 205 [id number] [facility] 00:00:00 00:00:00 d_J [id number] Medica l 2022-10-31 2022-10-31 Outpatient [facility]Tod PRIV PRIV 205 [id number] [facility] 00:00:00 00:00:00 d_J [id number] Medica l 2022-10-31 2022-10-31 Outpatient [facility]_Tod PRIV PRIV 205 [id number] [facility] 00:00:00 00:00:00 d_J [id number] Medica l 2022-10-23 2022-10-23 Outpatient [facility]_Tod PRIV PRIV 205 [id number] [facility] 00:00:00 00:00:00 d_J [id number] Medica l 2022-10-23 2022-10-23 Outpatient [facility]_Tod PRIV PRIV 205 [id number] [facility] 00:00:00 00:00:00 d_J [id number] Medica l 2022-10-11 2022-10-11 Outpatient [facility]_Tod PRIV PRIV 205 [id number] [facility] 00:00:00 00:00:00 d_J [id number] Medica l 2022-10-11 2022-10-11 Outpatient [facility]_Tod PRIV PRIV 205 [id number] [facility] 00:00:00 00:00:00 d_J [id number] Medica l 2022-10-11 2022-10-11 Outpatient [facility]_Tod PRIV PRIV 205 [id number] [facility] 00:00:00 00:00:00 d_J [id number] Medica l 2022-10-11 2022-10-11 Outpatient [facility]_Tod PRIV PRIV 205 [id number] [facility] 00:00:00 00:00:00 d_J [id number] Medica l 2022-09-23 2022-09-23 Outpatient [facility]_Tod PRIV PRIV 205 [id number] [facility] 00:00:00 00:00:00 d_J [id number] Medica l 2022-09-23 2022-09-23 Outpatient [facility]_Tod PRIV PRIV 205 [id number] [facility] 00:00:00 00:00:00 d_J [id number] Medica l 2022-09-23 2022-09-23 Outpatient [facility]_Tod PRIV PRIV 205 [id number] [facility] 00:00:00 00:00:00 d_J [id number] Medica l 2022-09-05 2022-09-05 Outpatient [facility]_Tod PRIV PRIV 205 [id number] [facility] 00:00:00 00:00:00 d_J [id number] Medica l 2022-09-05 2022-09-05 Outpatient [facility]_Tod PRIV PRIV 205 [id number] [facility] 00:00:00 00:00:00 d_J [id number] Medica l 2022-09-05 2022-09-05 Outpatient [facility]_Tod PRIV PRIV 205 [id number] [facility] 00:00:00 00:00:00 d_J [id number] Medica l 2022-09-05 2022-09-05 Outpatient [facility]_Tod PRIV PRIV 205 [id number] [facility] 00:00:00 00:00:00 d_J [id number] Medica l 2022-09-05 2022-09-05 Outpatient [facility]_Tod PRIV PRIV 205 [id number] [facility] 00:00:00 00:00:00 d_J [id number] Medica l 2022-09-05 2022-09-05 Outpatient [facility]_Tod PRIV PRIV 205 [id number] [facility] 00:00:00 00:00:00 d_J [id number] Medica l 2022-08-11 2022-08-11 Outpatient [facility]_Tod PRIV PRIV 205 [id number] [facility] 00:00:00 00:00:00 d_J [id number] Medica l 2022-08-11 2022-08-11 Outpatient [facility]_Tod PRIV PRIV 205 [id number] [facility] 00:00:00 00:00:00 d_J [id number] Medica l 2022-08-10 2022-08-10 [facility] 513 [facility] 00:00:00 00:00:00 PIA [facility]: [facility] - Med ical [address] [place] [address] , Ph. 2022-08-07 2022-08-07 Outpatient [facility]_Tod PRIV PRIV 205 [id number] [facility] 00:00:00 00:00:00 nery_Gume [id number] Medica l 2022-08-07 2022-08-07 Outpatient [facility]_Tod PRIV PRIV 205 [id number] [facility] 00:00:00 00:00:00 d_J [id number] Medica l 2022-08-07 2022[facility]08-[facility] 00:00:00 00:00:00 PIA [facility]: [facility] - Med ical 413 [place] [address] , Ph. 2022-08-01 2022-08-01 Outpatient R BANDAR, [facility] [id number] Univers 15:15:00 15:15:00 JENNA ity of [facility] 2022-07-30 2022-07-30 Patient Doctor [facility] 1.2.975.079 [id number] Univers 00:00:00 00:00:00 Secure Msg Unassigned, ICAL 350.1.13.10 ity [place] [facility] 4.2.7.2.686 Darian as BLDG [phone] [facility] 020 Branch 2022-07-29 2022-07-29 Orders Doctor RINA 1.2.840.114 [id number] Univers 00:00:00 00:00:00 Only Unassigned, JOAN 350.1.13.10 ity of [place] [facility] 4.2.7.2.686 Darian as [phone] [facility] 009 Branch 2022-07-26 2022-07-26 [facility] [id number] [facility] 00:00:00 00:00:00 PIA [facility] - Med ical [address] [address] , Ph. 2022-07-23 2022-07-23 Outpatient [facility]_Tod PRIV PRIV 205 [id number] [facility] 00:00:00 00:00:00 d_J [id number] Medica l 2022-07-23 2022-07-23 Outpatient [facility]_Tod PRIV PRIV 205 [id number] [facility] 00:00:00 00:00:00 d_J [id number] Medica l 2022-07-12 2022-07-12 [facility] 414 [facility] 00:00:00 00:00:00 PIA [facility] - Med ical [address] [address] , Ph. 2022-07-09 2022-07-09 [facility] 202 [id number] [facility] 00:00:00 00:00:00 Fabio Health - Med ical MD: [address] [address] , Ph. 2022-06-28 2022-06-28 [facility] 331 [facility] 00:00:00 00:00:00 PIA [facility]: [facility] - Med ical [address] [place] [address] , Ph. 2022-06-26 2022-06-26 Patient Doctor RINA 1.2.840.114 [id number] Univers 00:00:00 00:00:00 Secure Unassigned, JOAN 350.1.13.10 ity of [place] [facility] 4.2.7.2.686 Darian as [phone] [place] [address] Branch 2022-06-26 2022-06-26 [facility] 329 [facility] 00:00:00 00:00:00 PIA [facility]: Health - Med ical [address] [address] , Ph. 2022-06-25 2022-06-25 Transition RANJIT Ayon 1.2.840.114 [id number] Univers 00:00:00 00:00:00 of Care Ashleigh Nicole HIDALGO 350.1.13.10 i [place] [phone] [facility] 403 Branch 2022-06-25 2022-06-25 Patient Doctor [facility] 1.2.639.500 [id number] Univers 00:00:00 00:00:00 Secure Msg Unassigned, ICAL 350.1.13.10 ity of [place] [facility] 4.2.7.2.686 Darian as BLDG [phone] [facility] 020 Branch 2022-06-20 2022-06-24 Inpatient X MACIAS, [facility] [id number] Univers 17:52:00 10:59:00 SERVANDO ity of [facility] 2022-06-20 2022-06-24 Hospital Katrin Nicole 1.2.84 0.114 [id number] Univers 17:52:00 10:59:00 Encounter Chucho Goldman 350.1.13.10 ity of [facility] 4.2.7.2.686 [place] Cam Benavides [phone] [facility] Servando Macias 094 Branch 2022-06-18 2022-06-18 [facility]a [facility] [id number] [facility] 00:00:00 00:00:00 PIA [facility]: [facility] - Med ical [address] [address] , Ph. 2022-06-11 2022-06-11 Outpatient GC_[facility]_Tod PRIV PRIV 205 [id number] [facility] 00:00:00 00:00:00 d_Gume [id number] Medica l 2022-06-11 2022-06-11 Outpatient GC_[facility]_Tod PRIV PRIV 205 [id number] [facility] 00:00:00 00:00:00 d_J [id number] Medica l 2022-06-11 2022-06-11 Outpatient GC_[facility]_Tod PRIV PRIV 205 [id number] [facility] 00:00:00 00:00:00 d_J [id number] Medica l 2022-06-11 2022-06-11 Outpatient GC_[facility]_Tod PRIV PRIV 205 [id number] [facility] 00:00:00 00:00:00 d_J [id number] Medica l 2022-06-11 2022-06-11 Outpatient GC_[facility]_Tod PRIV PRIV 205 [id number] [facility] 00:00:00 00:00:00 d_J [id number] Medica l 2022-06-11 2022-06-11 Outpatient GC_[facility]_Tod PRIV PRIV 205 [id number] [facility] 00:00:00 00:00:00 d_J [id number] Medica l 2022-06-11 2022-06-11 Outpatient GC_[facility]_Tod PRIV PRIV 205 [id number] [facility] 00:00:00 00:00:00 d_J [id number] Medica l 2022-06-11 2022-06-11 Outpatient GC_[facility]_Tod PRIV PRIV 205 [id number] [facility] 00:00:00 00:00:00 d_J [id number] Medica l 2022-06-11 2022-06-11 Mara [facility] 314 [facility] 00:00:00 00:00:00 PIA [facility]: Health - Med ical [address] [place] [address] , Ph. 2022-06-10 2022-06-10 Transition RANJIT Ayon 1.2.840.114 101 [id number] Univers 00:00:00 00:00:00 of Care Ashleigh HIDALGO 350.1.13.10 i ty of [place] [phone] [facility] 403 Branch 2022-06-04 2022-06-07 Inpatient U TERRI [facility] [id number] Univers 01:18:00 00:05:00 LEROY itdenise of [facility] 2022-06-04 2022-06-07 Hospital Leroy Murray 1.2.840 .114 [id number] Univers 01:18:00 00:05:00 Encounter Angie Pascual JOAN 350.1.13.10 ity of [facility] 4.2.7.2.686 Darian as [phone] [facility] 092 Branch 2022-06-07 2022-06-07 [facility] 310 [facility] 00:00:00 00:00:00 PIA [facility]: Health - Med ical [address] [address] , Ph. 2022-06-05 2022-06-05 [facility] 1.2.647.339 [id number] Univers 12:15:00 13:00:00 Akshata ICAL 350.1.13.10 it y of [place] 4.2.7.2.686 [place] as BLDG [phone] [facility] 020 Branch 2022-06-02 2022-06-02 Outpatient GC_[facility]HC_Tod PRIV PRIV 205 [id number] [facility] 00:00:00 00:00:00 d_J [id number] Medica l 2022-06-02 2022-06-02 Outpatient GC_[facility]_Tod PRIV PRIV 205 [id number] [facility] 00:00:00 00:00:00 d_J [id number] Medica l 2022-05-29 2022-05-29 Transition RANJIT Angel 1.2.840.114 101 [id number] Univers 00:00:00 00:00:00 of Care Lana HIDALGO 350.1.13.10 ity [facility] 4.2.7.2.[place] [phone] [facility] 403 Branch 2022-05-09 2022-05-28 Inpatient X NOEL JEAN-CLAUDE [facility] SCT [id number] Univers 15:17:00 12:12:00 ity of [facility] 2022-05-09 2022-05-28 [facility] 1.2.840.1 14 [id number] Univers 15:17:00 12:12:00 Encounter Natalie Mustafa 350.1.13 .10 ity [facility] 4.2.7.2.686 [place] Jean-Claude Cohen [phone] Mn dical [address] [place] 2022-05-22 2022-05-22 Surgery Jean-Claude Cohen 1.2.061.651 [id number] Univers 08:35:00 12:26:00 JOAN 350.1.13.10 it y of [facility] 4.2.7.2.686 Darian as [phone] [facility] 103 Branch 2022-05-14 2022-05-14 Outpatient GC_[facility]HC_Tod PRIV PRIV 205 [id number] [facility] 00:00:00 00:00:00 d_J [id number] Medica l 2022-05-14 2022-05-14 Outpatient GC_BAHC_Tod PRIV PRIV 205 [id number] [facility] 00:00:00 00:00:00 d_J [id number] Medica l 2022-05-14 2022-05-14 Outpatient GC_BAHC_Tod PRIV PRIV 205 [id number] [facility] 00:00:00 00:00:00 d_J [id number] Medica l 2022-05-13 2022-05-13 [facility], 1.2.840.0 [id number] Univers 00:00:00 00:00:00 Management Care 97037.1.1 i ty of Transition 3.104.2.7 Darian as .[id number] Medica l .8 Branch 2022-05-10 2022-05-10 Outpatient GC_BAHC_Tod PRIV PRIV 205 [id number] [facility] 00:00:00 00:00:00 d_J [id number] Medica l 2022-05-09 2022-05-09 Travel 1.2.840.1 1.2.323.383 [id number] Univers 00:00:00 00:00:00 97037.1.1 350.1.13.10 ity of 3.104.2.[place].698 [place] .3.677689 084.8 Medica l .8 Branch 2022-04-30 2022-04-30 Mara [facility] - [facility] 131 [facility] 00:00:00 00:00:00 PIA [facility]: Health - Med ical [address] [place] [address] , Ph. 2022-04-29 2022-04-29 Outpatient GC_BAHC_Tod PRIV PRIV 205 [id number] [facility] 00:00:00 00:00:00 d_J [id number] Medica l 2022-04-16 2022-04-16 [facility] - [facility] 117 [facility] 00:00:00 00:00:00 PIA [facility]: Health - Med ical [address] [place] [address] , Ph. 2022-04-10 2022-04-10 Outpatient GC_BAHC_Tod PRIV PRIV 205 [id number] [facility] 00:00:00 00:00:00 d_J [id number] Medica l 2022-04-10 2022-04-10 Outpatient GC_BAHC_Tod PRIV PRIV 205 [id number] [facility] 00:00:00 00:00:00 d_J [id number] Medica l 2022-04-10 2022-04-10 Outpatient GC_BAHC_Tod PRIV PRIV 205 [id number] [facility] 00:00:00 00:00:00 d_J [id number] Medica l 2022-04-02 2022-04-02 [facility] - [facility] 103 [facility] 00:00:00 00:00:00 PIA [facility]: Health - Med ical [address] [place] [address] , Ph. 2022-03-29 2022-03-29 Outpatient [facility]_Tod [facility] 205 [id number] [facility] 00:00:00 00:00:00 d_J [id number] Medica l 2022-03-21 2022-03-21 Outpatient R [facility] [id number] Univers 00:00:00 00:00:00 SENDIL [facility] 2022-03-14 2022-03-14 Outpatient R [facility] [id number] Univers 00:00:00 00:00:00 SENDIL [facility] 2022-03-12 2022-03-12 Mara [facility] 213 [facility] 00:00:00 00:00:00 PIA [facility]: Health - Med ical [address] [address] , Ph. 2022-03-05 2022-03-05 Robert Mojica [facility] 202 [facility] 00:00:00 00:00:00 Fabio [facility] - Med ical MD: [address] [address] , Ph. 2022-03-01 2022-03-01 Travel 1.2.840.1 1.2.640.831 [id number] Univers 00:00:00 00:00:00 69749.1.1 350.1.13.10 ity 3.104.2.7 4.[place].3.698 [place] .3.562625 084.8 Medica l .8 Branch 2022-02-26 2022-02-26 [facility] [id number] Univers 10:40:00 10:40:00 [facility] 2022-02-20 2022-02-20 [facility] [id number] Univers 13:00:00 13:00:00 [facility] 2022-02-19 [facility]02-[facility] 00:00:00 00:00:00 PIA [facility]: [facility] - Med ical [address] [place] [address] , Ph. 2022-02-12 2022-02-12 [facility] [id number] Univers 13:00:00 13:00:00 COLLEEN palacios [facility] 2022-02-05 2022-02-05 Mara DESIR [place] - [facility] 108 [facility] 00:00:00 00:00:00 PIA [facility]: Health - Med ical [address] [address] , Ph. 2022-01-22 2022-01-22 Office Martines, 1.2.840.1 [id number] Methodi 13:45:00 15:23:28 Visit Aubree [address]2631.1.[address] [place] 3.430.2.7 Hosp carly .3.225256 l .8 2022-01-22 2022-01-22 Office Martines, 1.2.840.1 [id number] Methodi 13:45:00 15:23:28 Visit Aubree 03166.1.[address] [place] 3.430.2.7 Hosp carly .3.142792 l .8 2022-01-22 2022-01-22 Travel 1.2.840.1 1.2.079.163 [id number] Methodi 00:00:00 00:00:[address] 3.430.2.7 0.2.7.3.698 Ho spita .3.055869 084.8 l .8 2022-01-22 2022-01-22 Travel 1.2.840.1 1.2.597.023 4424 [id number] Methodi 00:00:00 00:00:[address] 3.430.2.7 0.2.7.3.698 spita .3.073326 084.8 l .8 2022-01-18 2022-01-18 Mara [facility] - [facility] 021 [facility] 00:00:00 00:00:00 PIA [facility]: Health - Med ical [address] [place] [address] , Ph. 2022-01-11 2022-01-11 Telephone Bunny Go 1.2.840.1 [id number] Methodi 00:00:00 00:00:[address] 3.430.2.7 Hospit a .3.635108 l .8 2022-01-11 2022-01-11 Telephone Abbi Bunny 1.2.840.1 [id number] Methodi 00:00:00 00:00:[address] 3.430.2.7 Hospit a .3.535193 l .8 2022-01-04 [facility]22[facility]01-[facility] 007 [facility] 00:00:00 00:00:00 PIA [facility]: [facility] - Med ical [address] [place] [address] , Ph. 2021-12-26 2021-12-26 Telephone GO Justice 1.2.419.286 [id number] Univers 00:00:00 00:00:00 Miguel Ángel YANEZ 350.1.13.10 ity [facility] 4.2.7.2.686 Lina RAMIREZ [id number] [address] 2021-12-25 2021-12-25 Outpatient R GO JUSTICE IABRADY [id number] Univers 13:00:00 14:05:49 SENDNAHOMI itdenise [facility] 2021-12-25 2021-12-25 Office Reshma IABRADY 1.2.840.114 [id number] Univers 13:00:00 14:05:49 Visit Cadynahomi Wilson RENATA 350.1.13.10 ity of [place] 4.2.7.2.686 Lina s JAMES [id number] Mn dical [facility] 059 [facility] 2021-12-25 2021-12-25 Outpatient GC_BAHC_Tod PRIV PRIV 205 [id number] [facility] 00:00:00 00:00:00 d_J [id number] Medica l 2021-12-25 2021-12-25 Outpatient GC_BAHC_Tod PRIV PRIV 205 [id number] [facility] 00:00:00 00:00:00 d_J [id number] Medica l 2021-12-25 2021-12-25 Outpatient GC_BAHC_Tod PRIV PRIV 205 [id number] [facility] 00:00:00 00:00:00 d_J [id number] Medica l 2021-12-25 2021-12-25 Outpatient GC_BAHC_Tod PRIV PRIV 205 [id number] [facility] 00:00:00 00:00:00 d_J [id number] Medica l 2021-12-25 2021-12-25 Outpatient GC_BAHC_Tod PRIV PRIV 205 [id number] [facility] 00:00:00 00:00:00 d_J [id number] Medica l 2021-12-25 2021-12-25 Orders Doctor FLYNN 1.2.840.114 [id number] 59 [facility] 00:00:00 00:00:00 Only Unassigned, JOAN 350.1.13.10 ity of [facility] 4.2.7.2.686 Darian as [id number] [address] 2021-12-25 2021-12-25 Mara [facility] [id number] [facility] 00:00:00 00:00:00 PIA Padron: Health - Med ical [address] [place] [address] , Ph. 2021-12-20 2021-12-20 Telephone Phong 1.2.840.1 [id number] Methodi 00:00:00 00:00:[address] 3.430.2.7 Hospit a .3.988303 l .8 2021-12-13 2021-12-18 Hospital Jorje Connell 1.2.840.1 1 [id number] Methodi 16:41:00 20:55:00 Encounter Alma Whitman 90540.1.[address] Rakel Johnson 3.430.2.7 Hospita Nakul Kruegernima .3.076851 l .8 2021-12-15 2021-12-15 Anesthesia Virgilio Purvis 1.2.840.1 [id number] Methodi 09:41:00 15:01:00 Event Dallas Kowalski 03234.1.[address] 3.430.2.7 Hospit a .3.164068 l .8 2021-12-15 2021-12-15 Surgery AbbiBunny 1.2.840.1 [id number] Methodi 09:15:00 11:25:[address] 3.430.2.7 Hospit a .3.955301 l .8 2021-12-13 2021-12-13 Travel 1.2.840.1 1.2.278.946 3303 [id number] Methodi 00:00:00 00:00:[address] 3.430.2.7 0.2.7.3.698 spita .3.778766 084.8 l .8 2021-12-12 2021-12-12 Outpatient GC_BAHC_Tod PRIV PRIV 205 [id number] [facility] 00:00:00 00:00:00 d_J [id number] Medica l 2021-12-11 2021-12-11 Outpatient Vito, PRIV PRIV [id number] 8-3 00:00:00 00:00:00 Mara 7bc-11ed-b [id number] f31d7d 2021-12-11 2021-12-11 [facility] [id number] [facility] 00:00:00 00:00:00 PIA Padron: Health - Med ical [address] [address] , Ph. 2021-12-08 2021-12-08 Outpatient GC_BAHC_Tod PRIV PRIV 205 [id number] [facility] 00:00:00 00:00:00 d_J [id number] Medica l 2021-11-24 2021-11-24 Outpatient GC_BAHC_Tod PRIV PRIV 205 [id number] [facility] 00:00:00 00:00:00 d_J [id number] Medica l 2021-11-23 2021-11-23 Outpatient Vito PRIV PRIV [id number] 0-2 00:00:00 00:00:00 Mara w50-60gm-9 [id number] [id number] 2021-11-23 2021-11-23 [facility] [id number] [facility] 00:00:00 00:00:00 PIA Padron: Health - Med ical [address] [place] [address] , Ph. 2021-11-20 2021-11-20 Outpatient GC_BAHC_Tod PRIV PRIV 205 [id number] [facility] 00:00:00 00:00:00 d_J [id number] Medica l 2021-11-20 2021-11-20 Outpatient Vito PRIV PRIV [id number] a-2 00:00:00 00:00:00 Mara w9q-33gn-o fbb-dc7df1 188fab 2021-11-20 2021-11-20 [facility] [id number] [facility] 00:00:00 00:00:00 PIA Padron: Health - Med ical [address] [place] [address] , Ph. 2021-11-16 2021-11-16 Outpatient GC_BAHC_Tod PRIV PRIV 205 [id number] [facility] 00:00:00 00:00:00 d_J [id number] Medica l 2021-11-08 2021-11-08 Outpatient GC_BAHC_Tod PRIV PRIV 205 [id number] [facility] 00:00:00 00:00:00 d_J [id number] Medica l 2021-11-08 2021-11-08 Robert Mojica [facility] [id number] [facility] 00:00:00 00:00:00 Fabio [facility] - Med ical MD: [address] [address] , Ph. 2021-11-08 2021-11-08 Outpatient Fabio PRIV PRIV [id number] 066-1 00:00:00 00:00:00 Robert Mojica g11-09kb-v [id number] [id number] 2021-11-02 2021-11-02 Outpatient GC_BAHC_Tod PRIV PRIV 205 [id number] [facility] 00:00:00 00:00:00 d_J [id number] Medica l 2021-11-02 2021-11-02 Mara [facility] [id number] [facility] 00:00:00 00:00:00 PIA Padron: [facility] - Med ical [address] [address] , Ph. 2021-11-02 2021-11-02 Outpatient Vito, PRIV PRIV [id number] e-1 00:00:00 00:00:00 Mara ce7-11ed-b 8o9-2j180d [id number] 2021-10-28 2021-10-28 Outpatient GC_BAHC_Tod PRIV PRIV 205 [id number] [facility] 00:00:00 00:00:00 d_J [id number] Medica l 2021-10-20 2021-10-20 Outpatient GC_BAHC_Tod PRIV PRIV 205 [id number] [facility] 10:42:00 10:42:00 d_J [id number] Medica l 2021-10-19 2021-10-19 Outpatient GC_BAHC_Tod PRIV PRIV 205 [id number] [facility] 07:48:00 07:48:00 d_J [id number] Medica l 2021-10-19 2021-10-19 Mara [facility] [id number] [facility] 00:00:00 00:00:00 PIA Padron: Health - Med ical [address] [address] , Ph. 2021-10-19 2021-10-19 Outpatient Vito, PRIV PRIV [id number] e-1 00:00:00 00:00:00 Mara 12e-11ed-a [id number] 58bb2d 2021-10-12 2021-10-12 Outpatient GC_BAHC_Tod PRIV PRIV 205 [id number] [facility] 03:53:00 03:53:00 d_Gume [id number] Medica l 2021-10-12 2021-10-12 Mara [facility] [id number] [facility] 00:00:00 00:00:00 PIA Padron: Health - Med ical [address] [address] , Ph. 2021-10-12 2021-10-12 Outpatient Vito PRIV PRIV [id number] 2-0 00:00:00 00:00:00 Mara af6-11ed-9 a9r-a7p4x1 [id number] 2021-10-09 2021-10-09 Outpatient [facility] 76 [place] 11:56:00 11:56:00 BETH 0712 da [facility] 2021-10-05 2021-10-05 Outpatient GC_BAHC_Tod PRIV PRIV 205 [id number] [facility] 11:01:00 11:01:00 d_J [id number] Medica l 2021-10-04 2021-10-04 Outpatient GC_BAHC_Tod PRIV PRIV 205 [id number] [facility] 09:10:00 09:10:00 d_J [id number] Medica l 2021-10-03 2021-10-03 Outpatient GC_BAHC_Tod PRIV PRIV 205 [id number] [facility] 02:45:00 02:45:00 d_J [id number] Medica l 2021-10-02 2021-10-02 Outpatient GC_BAHC_Tod PRIV PRIV 205 [id number] [facility] 05:08:00 05:08:00 d_J [id number] Medica l 2021-10-02 2021-10-02 Mara [facility] [id number] [facility] 00:00:00 00:00:00 PIA Padron: Health - Med ical [address] [place] [address] , Ph. 2021-10-02 2021-10-02 Outpatient THANG Padron PRIV [id number] c-f 00:00:00 00:00:00 Mara z91-20hk-e [id number] b7 2021-09-26 2021-09-26 Outpatient GC_BA[facility]_Tod PRIV PRIV 205 [id number] [facility] 09:13:00 09:13:00 d_J [id number] Medica l 2021-09-26 2021-09-26 Mara [facility] [id number] [facility] 00:00:00 00:00:00 PIA Padron: Health - Med ical [address] [address] , Ph. 2021-09-26 2021-09-26 Outpatient THANG Padron PRIV [id number] 2-f 00:00:00 00:00:00 Mara dec-11ec-8 [id number] b3b7 2021-09-25 2021-09-25 Office ADRI Thompson [facility] 1.2.840.114 [id number] [place] 11:15:00 12:43:09 Visit [facility] 350.1.13.58 Benny RAMSEY 1 9.2.7.2.686 [id number] 2 2021-09-21 2021-09-21 Outpatient GC_BAHC_Tod PRIV PRIV 205 [id number] [facility] 04:44:00 04:44:00 d_J [id number] Medica l 2021-09-17 2021-09-17 Outpatient GC_BAHC_Tod PRIV PRIV 205 [id number] [facility] 11:11:00 11:11:00 d_J [id number] Medica l 2021-09-13 2021-09-13 Outpatient GC_BAHC_Tod PRIV PRIV 205 [id number] [facility] 10:39:00 10:39:00 d_J [id number] Medica l 2021-09-13 2021-09-13 Robertdenise Macedone [facility] 00:00:00 00:00:00 Fabio [facility] - Med ical MD: [address] [address] , Ph. 2021-09-13 2021-09-13 Outpatient Fabio, PRIV PRIV [id number] c76-f 00:00:00 00:00:00 Robert Mojica 3ee-11ec-8 [id number] 2021-09-10 2021-09-10 Outpatient GC_BAHC_Tod PRIV PRIV 205 [id number] [facility] 03:35:00 03:35:00 d_J [id number] Medica l 2021-09-04 2021-09-04 Outpatient GC_BAHC_Tod PRIV PRIV 205 [id number] [facility] 07:32:00 07:32:00 d_J [id number] Medica l 2021-09-04 2021-09-04 Outpatient Vito PRIV PRIV [id number] 2-[id number] 00:00:00 00:00:00 Mara c3r-30zh-8 bfc-60e583 [id number] 2021-09-04 2021-09-04 Mara [facility] [id number] [facility] 00:00:00 00:00:00 PIA Padron: Health - Med ical [address] [address] , Ph. 2021-08-31 2021-08-31 Outpatient GC_BAHC_Tod PRIV PRIV 205 [id number] [facility] 02:07:00 02:07:00 d_J [id number] Medica l 2021-08-23 2021-08-23 Outpatient GC_BAHC_Tod PRIV PRIV 205 [id number] [facility] 11:05:00 11:05:00 d_J [id number] Medica l 2021-08-22 2021-08-22 Outpatient GC_BA[facility]_Tod PRIV PRIV 205 [id number] [facility] 07:00:00 07:00:00 d_J [id number] Medica l 2021-08-22 2021-08-22 Outpatient Vito, PRIV PRIV [id number] 8-[id number] 00:00:00 00:00:00 Mara 0d3-08je-q [id number] [id number] 2021-08-22 2021-08-22 Mara [facility] [id number] [facility] 00:00:00 00:00:00 PIA Padron: Health - Med ical [address] [address] , Ph. 2021-08-19 2021-08-19 Outpatient GC_BAHC_Tod PRIV PRIV 205 [id number] [facility] 10:45:00 10:45:00 d_J [id number] Medica l 2021-08-14 2021-08-14 Outpatient GC_BA[facility]_Tod PRIV PRIV 205 [id number] [facility] 03:16:00 03:16:00 d_J [id number] Medica l 2021-08-14 2021-08-14 Outpatient Vito, PRIV PRIV [id number] 4-d 00:00:00 00:00:00 Mara time clock inspector-11ec-8 [id number] 2021-08-14 2021-08-14 Mara [facility] [id number] [facility] 00:00:00 00:00:00 Vito, PA: Health - Med ical [address] [address] , Ph. 2021-08-10 2021-08-10 Outpatient GC_BAHC_Tod PRIV PRIV 205 [id number] [facility] 01:10:00 01:10:00 d_J [id number] Medica l 2021-08-10 2021-08-10 Outpatient Vito PRIV PRIV [id number] e-d 00:00:00 00:00:00 Mara h2w-95sw-t [id number]-[id number] [id number] 2021-08-10 2021-08-10 Mara [facility] [id number] [facility] 00:00:00 00:00:00 PIA Padron: Health - Med ical [address] [place] [address] , Ph. 2021-08-08 2021-08-08 Outpatient GC_BAHC_Tod PRIV PRIV 205 [id number] [facility] 10:53:00 10:53:00 d_J [id number] Medica l 2021-08-04 2021-08-04 Outpatient GC_BA[facility]_Tod PRIV PRIV 205 [id number] [facility] 10:45:00 10:45:00 d_J [id number] Medica l 2021-07-31 2021-07-31 Outpatient GC_BA[facility]_Tod PRIV PRIV 205 [id number] [facility] 07:56:00 07:56:00 d_J [id number] Medica l 2021-07-31 2021-07-31 Outpatient Vito PRIV PRIV [id number] 4-d 00:00:00 00:00:00 Mara 159-11ec-9 [id number] 2021-07-31 2021-07-31 Mara [facility] [id number] [facility] 00:00:00 00:00:00 PIA Padron: Health - Med ical [address] [address] , Ph. 2021-07-27 2021-07-27 Outpatient GC_BAHC_Tod PRIV PRIV 205 [id number] [facility] 08:30:00 08:30:00 d_J [id number] Medica l 2021-07-27 2021-07-27 Outpatient Vito, PRIV PRIV [id number] 0-c 00:00:00 00:00:00 Mara q92-07eh-i c05-66u0e2 ab19a7 2021-07-27 2021-07-27 Mara [facility] 429 [facility] 00:00:00 00:00:00 PIA Padron: Health - Med ical [address] [place] [address] , Ph. 2021-07-19 2021-07-19 Outpatient GC_BAHC_Tod PRIV PRIV 205 [id number] [facility] 08:26:00 08:26:00 d_J [id number] Medica l 2021-07-19 2021-07-19 Outpatient Fabio, PRIV PRIV [id number]-[id number] 00:00:00 00:00:00 Robert Mojica 7bc-11ec-a [id number] [id number] 2021-07-19 2021-07-19 Robert Mojica [facility] 202 [facility] 00:00:00 00:00:00 Fabio [facility] - Med ica MD: [address], [place] [address] , Ph. 2021-07-19 2021-07-19 Outpatient Fabio, PRIV PRIV 1974c 72e-[id number] 00:00:00 00:00:00 Robert Mojica 1fa-11ed-a fa8-bf85a1 8efc9b 2021-07-13 2021-07-13 Outpatient GC_BAHC_Tod PRIV PRIV 205 [id number] [facility] 02:12:00 02:12:00 d_J [id number] Medica l 2021-07-12 2021-07-12 Outpatient GC_BAHC_Tod PRIV PRIV 205 [id number] [facility] 05:07:00 05:07:00 d_J [id number] Medica l 2021-07-12 2021-07-12 Outpatient Leslie PRIV PRIV [id number] c-b 00:00:00 00:00:00 June t3i-49xz-n l9j-l9ov3p 4c2aa0 2021-07-12 2021-07-12June [facility] 14 [facility] 00:00:00 00:00:00 Leslie [facility] - Medic al FROG SHAKER: [address], [place] [address] , Ph. 2021-07-12 2021-07-12 Outpatient Leslie PRIV PRIV [id number] a-f 00:00:00 00:00:00 June ed0-11ec-8 [id number]-b40fb9 [id number] 2021-07-11 2021-07-11 Outpatient GC_BAHC_Tod PRIV PRIV 205 [id number] [facility] 10:53:00 10:53:00 d_J [id number] Medica l 2021-07-06 2021-07-06 Outpatient GC_BAHC_Spa PRIV PRIV 205 [id number] [facility] 05:28:00 05:28:00 Portillo [id number] Medica l 2019-02-20 2019-02-20 Keven BAEZ [place] - [id number] [place] 00:00:00 00:00:00 Christo Collins Medical MD: [address] [address], [place] [address] , Ph. 2018-11-13 2018-11-13 Keven BAEZ [place] - [id number] [place] 00:00:00 00:00:00 Christo Collins Medical MD: [address] [address], [place] [address] , Ph. 2018-10-25 2018-10-25 Keven BAEZ [place] - [id number] [place] 00:00:00 00:00:00 Celestino Singh Medical Medical MD: [address] [facility] [address], [place] [address] , Ph. 2018-09-04 2018-09-04 Keven [facility] [place] - [id number] [place] 00:00:00 00:00:00 Christo Collins Medical MD: [address] [facility] [address], [place] [address] , Ph. 2017-09-07 2017-09-08 Inpatient Christiano GAYLE [facility] TELE 83313 97784 [facility] 15:44:00 18:20:00 KACEY Medica l [place] 2017-09-01 2017-09-04 Inpatient GLENNY PURI [facility] TELE 1000 [id number] [facility] 20:55:00 18:24:00 Medica l [place] Results Test Description Test Time Test Comments Results Result Comments Source RETICULOCYTES AUTOMATED 2022-06-23 11:52:04 Test Item Value Reference Range Interpretation Comme nts RETIC Count Automated (test code 3.46 % 0.59-2.24 H = 3707342621) RETIC Absolute Count (test code 0.0950 See_Comment Dilution protocol used to = 3980138915) correct reticu locyte parameters for the presence of an interfering substance or condition. [Aut omated message] The system whic h generated this result tra nsmitted reference range : 0.0260 - 0.1170 10*6/?L. The reference range was not u sed to interpret this result as normal/abnormal . IRF % (test code = 2601422972) 23.30 % 2.00-19.10 H RETIC-HE (test code = 28.5 pg 27.3-36.4 8580264925) Lab Interpretation (test code = Abnormal 98177-0) [facility] WITH [id number] 19:51:55 Test Item Value Reference Range Interpretation Comments WBC (test code = 6.60 See_Comment [Automated 6690-2) message] The sy stem which generated this result transmitted reference range : 4.20 - 10.70 10*3/?L. The reference range was not used to interpret this result as normal/abnormal . RBC (test code = 2.75 See_Comment L [Automated 789-8) message] The sy stem which generated this result transmitted reference range : 4.26 - 5.52 10*6/?L. The reference range was not used to interpret this result as normal/abnormal . HGB (test code = 7.8 g/dL 12.2-16.4 L 718-7) HCT (test code = 23.6 % 38.4-49.3 L 4544-3) MCV (test code = 85.8 fL 81.7-95.6 787-2) MCH (test code = 28.4 pg 26.1-32.7 785-6) MCHC (test code = 33.1 g/dL 31.2-35.0 786-4) RDW-SD (test code = 57.7 fL 38.5-51.6 H 85148-3) RDW-CV (test code = 18.7 % 12.1-15.4 H 788-0) PLT (test code = 357 See_Comment H [Automated 777-3) message] The sy stem which generated this result transmitted reference range : 150 - 328 10*3/ ?L. The reference r lorena was not used to interpret this result as normal/abnormal . MPV (test code = 9.6 fL 9.8-13.0 L 46568-7) NRBC/100 WBC (test 0.3 See_Comment [Automat ed code = 1400227457) message] The system which generated this result transmitted reference range : 0.0 - 10.0 /100 WBCs. The refer ence range was not u sed to interpret th is result as normal/abnormal . NRBC x10^3 (test code 0.02 See_Comment [Auto mated = 5486498421) message] The s ystem which generated this result transmitted reference range : 10*3/?L. The reference range was not used to interpret this result as normal/abnormal . GRAN MAT (NEUT) % 64.7 % (test code = 770-8) IMM GRAN % (test code 0.60 % = 1662037722) LYMPH % (test code = 15.2 % 736-9) MONO % (test code = 14.4 % 5905-5) EOS % (test code = 4.2 % 713-8) BASO % (test code = 0.9 % 706-2) GRAN MAT x10^3(ANC) 4.27 10*3/uL 1.99-6.95 (test code = 1326150075) IMM GRAN x10^3 (test 0.04 10*3/uL 0.00-0.06 code = 6008467212) LYMPH x10^3 (test code 1.00 10*3/uL 1.09-3.23 L = 731-0) MONO x10^3 (test code 0.95 10*3/uL 0.36-1.02 = 742-7) EOS x10^3 (test code = 0.28 10*3/uL 0.06-0.53 711-2) BASO x10^3 (test code 0.06 10*3/uL 0.01-0.09 = 704-7) Lab Interpretation Abnormal (test code = 09165-5) [facility]), 1 Units 2022-06-22 14:22:05 Test Item Value Reference Range Interpretation Comments Cross Match Result Compatible (test code = 4409) ISBT Blood Type Code 6200 (test code = 497559) Unit Blood Type (test A Pos code = 4410) Unit Number (test [id number] code = 4411) Blood Expiration Date [id number] & Time (test code = 927946) Status Information Issued (test code = 4412) Product Red Blood Cells Identification (test code = 4413) Product Code (test [id number] Performed at [facility] code = 4414) Laboratory Services - [facility] Blood [address] [place] [address] 412[address]Iijy Free: [phone] A No. [id number] [facility] 00:15:09 Test Item Value Reference Range Interpretation Comments FOLATE SER (test code = 7.9 ng/mL 3.0-20.0 Biot in has been 5390503338) reported to cau se a positive bias, interpret resul ts relative to patient's use o f biotin. Lab Interpretation (test Normal code = 47976-9) [facility] B12, [id number] 00:15:09 Test Item Value Reference Range Interpretation Comments VIT B12 (test code = 625 pg/mL 240-930 5732255179) TAHIRA (test code = TAHIRA) Biotin has been reported to cause a positive bias, interpret results relative to patient's use of biotin. Lab Interpretation (test Normal code = 59607-0) [facility] (IMMUNOASSAY) - COMPREHENSIVE DRUG [id number] 23:34:50 Test Item Value Reference Range Interpretation Comments BHUPINDER S (test code = Negative Negative 6256739891) BENZO S (test code = Negative Negative 5712290199) TRICYCLIC (test code = Negative Negative 8178640179) TAHIRA (test code = TAHIRA) Serum Drug Screen Cutoff Ranges Barbiturates ? ? - 3 mcg/mLBenzodiazepines ?- 50 ng/mLTCA ?- 300 ng/mL Test developed and characteristics determined by [facility] Laboratory Services. The results are to be used only for medical (i.e., treatment) purposes. Unconfirmed screening results must not be used for non-medical purposes (e.g., employment testing, legal testing). Lab Interpretation Normal (test code = 35164-9) [facility] WITHOUT [id number] 21:42:38 Test Item Value Reference Range Interpretation Comments WBC (test code = 6690-2) 9.10 See_Comment [A utomated message] The system [employer] generated this result transmit evelina reference range : 4.20 - 10.70 10*3/?L. The reference range was not used to interpret this result as normal/abnormal . RBC (test code = 789-8) 2.59 See_Comment L [Au tomated message] The system [employer] generated this result transmit evelina reference range : 4.26 - 5.52 10* 6/?L. The reference r lorena was not used to interpret this result as normal/abnormal . HGB (test code = 718-7) 7.3 g/dL 12.2-16.4 L HCT (test code = 4544-3) 22.1 % 38.4-49.3 L MCH (test code = 785-6) 28.2 pg 26.1-32.7 MCV (test code = 787-2) 85.3 fL 81.7-95.6 MCHC (test code = 786-4) 33.0 g/dL 31.2-35.0 PLT (test code = 777-3) 399 See_Comment H [Au tomated message] The system [employer] generated this result transmit evelina reference range : 150 - 328 10*3/?L. The reference range was not used to interpret this result as normal/abnormal . MPV (test code = 9.7 fL 9.8-13.0 L 79451-7) RDW-CV (test code = 20.0 % 12.1-15.4 H 788-0) RDW-SD (test code = 61.7 fL 38.5-51.6 H 11950-0) NRBC x10^3 (test code = 0.03 See_Comment [Au tomated message] 6562362516) The system [employer] generated this result transmit evelina reference range : 10*3/?L. The reference range was not used to interpret this result as normal/abnormal . NRBC/100 WBC (test code 0.3 See_Comment [Au tomated message] = 1936355734) The system [employer] generated this result transmit evelina reference range : 0.0 - 10.0 /100 WBC s. The reference r lorena was not used to interpret this result as normal/abnormal . IPF % (test code = 5709650793) Lab Interpretation (test Abnormal code = 52257-7) [facility] [id number] 14:00:22 Test Item Value Reference Range Interpretation Comments IRON (test code = 0303766914) 34 ug/dL 50-160 L TIBC (test code = 9598359978) 174 ug/dL 250-410 L % FE SAT (test code = 9122240854) 20 % 20-50 Lab Interpretation (test code = Abnormal 86813-2) [facility] [id number] 11:43:12 Test Item Value Reference Range Interpretation Comments FERRITIN (test code = 1330.0 ng/mL 18.0-464.0 H 5461921506) TAHIRA (test code = TAHIRA) Biotin has been reported to cause a negative bias, interpret results relative to patient's use of biotin. Lab Interpretation (test Abnormal code = 13189-5) [facility] RBC (in units), 1 Units 2022-06-21 07:47:25 Test Item Value Reference Range Interpretation Comments Cross Match Result Compatible (test code = 4409) ISBT Blood Type Code 6200 (test code = 678069) Unit Blood Type (test A Pos code = 4410) Unit Number (test [id number] code = 4411) Blood Expiration Date & Time (test code = 374273) Status Information Issued (test code = 4412) Product Red Blood Cells Identification (test code = 4413) Product Code (test S5555U89 Performed at [facility] code = 4414) Laboratory Services - [facility] Blood [address] [place] [id number] Free: [phone] A No. [id number] [facility]2023-03-24 05:30:26 Test Item Value Reference Range Interpretation Comments MAGNESIUM (test code = 8345252909) 1.8 mg/dL 1.7-2.4 Lab Interpretation (test code = Normal 44430-2) [facility]2023-03-24 05:30:06 Test Item Value Reference Range Interpretation Comments PHOSPHORUS (test code = 3930420668) 5.0 mg/dL 2.5-5.0 Lab Interpretation (test code = Normal 93041-7) [facility]anoTR[facility] [id number] 00:52:29 Test Item Value Reference Range Interpretation Comments TROPONIN I (test code = 0.032 ng/mL <=0.034 [id number]) TAHIRA (test code = TAHIRA) Reference (Normal) [...] to patient's use of biotin. Lab Interpretation Normal (test code = 28885-8) [facility]ano[facility]-TERMINAL [id number] 00:49:06 Test Item Value Reference Range Interpretation Comments NT-proBNP (test code = 95291 pg/mL <=125 H 5899406556) TAHIRA (test code = TAHIRA) Biotin has been reported to cause a negative bias, interpret results relative to patient's use of biotin. Lab Interpretation (test Abnormal code = 91602-9) [facility] (NA, K, CL, CO2, GLUCOSE, BUN, CREATININE, CA)2022-06-21 00:41:04 Test Item Value Reference Range Interpretation Comments NA (test code = 139 mmol/L 135-145 1245669772) K (test code = 4.9 mmol/L 3.5-5.0 9834015180) CL (test code = 98 mmol/L 98-108 9991437310) CO2 TOTAL (test code = 30 mmol/L 23-31 7358345465) AGAP (test code = 11 2-16 5837818342) BUN (test code = 46 mg/dL 7-23 H 4907061006) GLUCOSE (test code = 104 mg/dL 70-110 0142758260) CREATININE (test code = 6.49 mg/dL 0.60-1.25 H 2988316422) CALCIUM (test code = 7.6 mg/dL 8.6-10.6 L 3323966765) eGFR (test code = 9.3 mL/min/1.73m2 8838759012) TAHIRA (test code = TAHIRA) Association of [...] tests). Lab Interpretation Abnormal (test code = 83418-4) [facility]anoACTIV[facility] PARTIAL THRMPLAS [id number] 00:39:07 Test Item Value Reference Range Interpretation Comments APTT Patient (test 37 See_Comment [Automat ed code = 3173-2) message] The system which generated this result transmitted reference range : 23 - 38 Seconds . The reference range was not used to interpr et this result as normal/abnormal . TAHIRA (test code = TAHIRA) The [facility] patient population mean normal value for aPTT is 30 seconds. Lab Interpretation Normal (test code = 46011-2) [facility]anoPROTHROMBIN TIME / [id number] 00:36:45 Test Item Value Reference Range Interpretation Comments PROTIME PATIENT (test 14.8 See_Comment H [Auto mated message] code = 5964-2) The system wh ich generated this result transmitted ref erence range: 12.0 - 1 4.7 Seconds. The reference range was not used to int erpret this result as normal/abnormal . INR (test code = 6301-6) 1.2 Nor mal INR <1.1; Warfarin Therap eutic range 2.0 to 3. 0 or 2.5 to 3.5, dep ending upon the indica tions. Lab Interpretation (test Abnormal code = 26042-8) [facility] [id number] 00:24:45 Test Item Value Reference Range Interpretation Comments WBC (test code = 8.45 See_Comment [Automated 6690-2) message] The sy stem which generated this result transmitted reference range : 4.20 - 10.70 10*3/?L. The reference range was not used to interpret this result as normal/abnormal . RBC (test code = 2.18 See_Comment L [Automated 789-8) message] The sy stem which generated this result transmitted reference range : 4.26 - 5.52 10*6/?L. The reference range was not used to interpret this result as normal/abnormal . HGB (test code = 6.2 g/dL 12.2-16.4 L 718-7) HCT (test code = 18.7 % 38.4-49.3 L 4544-3) MCV (test code = 85.8 fL 81.7-95.6 787-2) MCH (test code = 28.4 pg 26.1-32.7 785-6) MCHC (test code = 33.2 g/dL 31.2-35.0 786-4) RDW-SD (test code = 58.8 fL 38.5-51.6 H 88021-6) RDW-CV (test code = 18.9 % 12.1-15.4 H 788-0) PLT (test code = 435 See_Comment H [Automated 777-3) message] The sy stem which generated this result transmitted reference range : 150 - 328 10*3/ ?L. The reference r lorena was not used to interpret this result as normal/abnormal . MPV (test code = 9.8 fL 9.8-13.0 12768-9) NRBC/100 WBC (test 0.2 See_Comment [Automat ed code = 1931832705) message] The system which generated this result transmitted reference range : 0.0 - 10.0 /100 WBCs. The refer ence range was not u sed to interpret th is result as normal/abnormal . NRBC x10^3 (test code 0.02 See_Comment [Auto mated = 7795514435) message] The s ystem which generated this result transmitted reference range : 10*3/?L. The reference range was not used to interpret this result as normal/abnormal . GRAN MAT (NEUT) % 58.6 % (test code = 770-8) IMM GRAN % (test code 0.60 % = 8897523838) LYMPH % (test code = 16.3 % 736-9) MONO % (test code = 14.6 % 5905-5) EOS % (test code = 8.8 % 713-8) BASO % (test code = 1.1 % 706-2) GRAN MAT x10^3(ANC) 4.96 10*3/uL 1.99-6.95 (test code = 6682924124) IMM GRAN x10^3 (test 0.05 10*3/uL 0.00-0.06 code = 7863791699) LYMPH x10^3 (test code 1.38 10*3/uL 1.09-3.23 = 731-0) MONO x10^3 (test code 1.23 10*3/uL 0.36-1.02 H = 742-7) EOS x10^3 (test code = 0.74 10*3/uL 0.06-0.53 H 711-2) BASO x10^3 (test code 0.09 10*3/uL 0.01-0.09 = 704-7) Lab Interpretation Abnormal (test code = 03588-0) [facility] [id number] 00:19:00 Test Item Value Reference Range Interpretation Comments ABO & RH (test code = 20) A Positive IAT (test code = 1185) Negative [facility] [id number] 00:54:02 Test Item Value Reference Range Interpretation Comments Case Report (test code Surgical Pathology ? ? = [id number]) ?Case: [id number] ? Authorizing Provider: ?Brenna Prather MD ? Collected: ? 06/05/2022 1319 ?Ordering Location: ? ? GI Endoscopy OR Department Received: ?06/05/2022 1642 ?Pathologist: ? Quan Contreras MD ? Specimen: ? 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 Final Diagnosis (test f7znzHZkNLLva6ysUXZrtZ code = 6064031163) FuZzEwMzNcZnRuYmpcdWMx IHtccnRmMVxlcGljMTAyMD JrPK5kxSnrlFg9mUwgIWRc tnN7gRWvIHuxo8avHZZ3e0 wfhubsQOOnSQktOl4vuKTo rNwnEgBjWQIvMJa5sC18SU NomC3btDWnHOf2OZZcoHFt bkTqHfUaOTXrqBImkGO6TQ EnEO9fugaiPQpmWUbdNUUy fxN1ROOaqCJcC0UdQJAvIW 6zacuyIPH3HKctKQYoNTW9 IbXcARLua8Yejph9VcEvmX FyZFxwbGFpblxmczIwXHBh raceMLQsEIC5Wch4QASEWa WKIK6ENIGIEJPMHB1JL7f3 UULrkxiqWDWaEVSjZB6bP8 WNEPCJFgRQYXRAY9JuR6iT CLRCKDhHMZQTYv4EHSPxB8 FTVFJJVElTXHBhciAgICAt SW7NTSGFXTqADSSBIV0LMC lOVEVTVElOQUwgTUVUQVBM RDKEGBFOJgVJPHqNGh3QJX MgSURFTlRJRklFRFxwYXIg ICAgLSBOTyBILiBQWUxPUk ktTElLRSBPUkdBTklTTVMg SURFTlRJRklFRFxwYXJccG FyZFxwYXJcZnMyMiBKdWFu LSEggtqzreKAcDQvvfI1XG 9lqzXepairPWYmPPFiOM3q DRPgPGBdNdJ2JEZJMMXefm xwYXJkXGZzMjBccGFyfXtc pnEgESblz1LzM4OjFrTtXY xhbnNpXGRlZmxhbmcxMDMz YJI9miRwLWJhYKrfFYTgQU wrAi9ppGCwsNeeGfQfHUMl q9hruzPQXJamGdXpW853YW NmYWhhl6tpr8CrDAQvsKBd w9O9SKCNukyheZe4o2gvOk KzDmX6oENfFJbbP0wwdsFz tCKbU1EfeOCsrOz2eHakX7 5tp8T4NzgcI3wsUYAnVIIn C8ZaOV9wHULeImd3ATZ3BJ Z2OZMeRALcZ4TyQO8tZCGq vYFqSGz4y3locZthHJWoYV C2l5ldKNzajeL2UY8dib0e qVb8l8fhvbBqTEOqQDDtrC QBDTVsF1KgnNheXd8oeRk9 vWdnZzlbDJR1Nzh2PR2vyv 88asv2bGxjPICqcxhkPuS4 GRvvXPMvahryMCl4ORodZG SfgRS8DTNjsYVfN3ZpJIRd UN9umpq8KEB4AIjcIVGkAe I7WBXtyCDoFZYcpQngCCbk s065QIO2HwUrBI1bG0Pdc5 R8wG5dmIKpMALieGWwSiVn IRQjga4psTRuWSnig4VlZT D0xgU3zVTutDPoPTTwOS10 Dgcqv7LuOhdmSSS7XPLejk Ljs9Zjl4weSiOagzFyH9mg M8CgAOVvWSCsBXGkNlJenw Azg3Hxo3BshBReeRc8i0qv LFSeIKXdrUjpw2wpEJN4KR ZeN6N3pDBtx7maJDtuJAOi gNK5uxZ3HCTuaAEbD0QbuW 5sSWCwJU1snnc6e0mjWPB9 PJbyBLCzRaM2obG0YZRvmT EfFFXjxYbaCQive994QBX3 ZvQvYJTen5CcB8VfuTvhE5 4ibKlyK19xISGqwUyjoS6a gYwunM5uUkUtVmOcWEnkiL xwbGFpblxmMVxmczIwXGxh vropJRDaFCllM0zbMyVvUS FffPdmASzal9VwJUJgWAHo MlxmczIwXHBhciBJIGhhdm DciKHbk21oXXuwbZEyUYSd YSwsMBKnnHbim7LlJ3dwSQ 5yD8OhmRRunwVchcVvFDxd DGAsf7h0mSByuJnuy1PaiK NqAM23sqYaFIMdSYK1LLAq y4niOR85qtpdMzHubZ25cp KqlxHyGKXgf8siF0qjfVCq t6Hix1PvktUqEBflj1GuWS 2mgRSokfjigKE6FIOtqOWo aeYbsrX5kHvyQDSiwZ7dbA 2ruZkidH6yAyApJmIyUFhc WW8eQNBaV8hxeUUpWPOuPZ PsT4mnVyAptH8uqLakQccz dyY8JXHakl04 Clinical Information Velasquez Cruz is a (test code = 47 year old male 1. 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 Gross Description (test s3hroQWeMXAplBTHFEQtIN code = 7039755760) UdML8wiVgpaMg3aPurELIe ifC9tJYgVLbic0mtTUE6a3 ujbfTEByviGATgZV0xPLjh SBLxBN5fBgGkJFAbDlJxCN BhcGVydzEyMjQwXHBhcGVy nHC3FJIfME3yahwbXGhqMT ufZZGciqJ5NOHahAReS8Mw SQGlNJ0pmuenGMH1KKEDHb lfGv7tvTXclJkjApSuFrBp YXJzZXQwXGZuaWwgQXJpYW b2nV1CFwnzPRN3PMUQXgxm SmyafTkqt4IzgUSlZCPeWA xcaWQgNTEwMDAgXFxkYiBP XhZyWqJ7XFq0WqX1GpA8JF v9WYJAVEGfGjP7QTReLnC3 QFw1MLVrFC2eSDsotYVmUT csBqgtKXqmU626ESpcTZLw V5MfN0RnKIsyCnPpDBztCB VtQXWlYEnaJRTbW9CHBDGb NdR9PCX1ODZtXUu9TRzlC1 DTRXDyJXAwDxTrMkP0LjT0 JSc1YFRYWs3eXJn5DJMdGZ e2VIU4NKi3TLZvIHJpHuOk ETIaBVEqZKvgtCGqQA0ovF ihFBAoRW2LYDBdSIseHHMw FnOnK3MOQ0kUZU4pQNxwOJ IgDQpccGFyZCANClxwbGFp nkvpzfJfQQq5jvLaVMRyBd QdKHXzP27ws5ZKx5SfTA4W UEi4fyRsvcyejT7xSTSqyj FfRUcGvYLrcE0wciVDCPwg PFLhW4ImgnJjMNezRCGqjb 5jqGrnFShxPyKhBURve5j6 aQI6qICfhWP4fLCzdWggFO 2jwYEsKWIQHG71lSFtylTr I8WyiBNrNqPozU1ie3fxEj 2HUSruNXK0yU9zvZBqecMv gNJoCA2ck4hpKhSlyuSpC6 7og9ptbIAfi1NsZXF3HW3f zCrdufPgeeZzC7MuBISpd2 7sjHE8fQXbqVOoYyTvX99q ppSjBHrdNPKqPX6lUJH2cd wbJqJfYlYwB84ukQ1tE1Yb WOXbz5LsTGlaNW0vbZ7xVP AwLjYgeCAwLjYgeCAwLjEg G97gfP0vPEfexcSdKQOoTZ 4gVGhlIHNwZWNpbWVuIGlz TBIymPJczyKgTVOxqk30Z6 unPWPjtT7ij8myWkHlCNLh VJJfzSPxpWY8DDOdkK1crV 99gdFnuoOFEA0noZQpVR8Z XHBhciANClxzYTMwXGVwaW QIb4OnDESIVb3kpglmPOMb OAT8x1OeHZFINVyET4WZTQ 0VSRUayDNPFAT6EV8gZMjj MDUlN7ZpC2EernD0j7kwiA ler2EhaCIyPU8viQSyDA9J XHBhcmQgDQp9 Disclaimer (test code = c8ybnOCnMXMgg5csGUDlyV 4186396162) FuZzEwMzNcZnRuYmpcdWMx DEtdgaQhAVrpl6DdH0TiTb AwMFxhbnNpXGRlZmxhbmcx YCOxGYH9kmTiJRLvJDyoBC YyTSfwIk5buMBjxWofHpGe VVEjj2jswlCIVXcpXkNrZ2 60BCIkQUash5buj8ApQPSc yUZyr5Q6OLPEutttcNm8rV vfX46wp1U1ExveP9hfQQYr BHDbD3MrIM7vXCTcApj3XG J5OBZ9PXIdMCCiO7MsBC7j NHIzeYUtKUi4t7vhuZyaQQ AdFYR4e2lcHUiickBoDO4d vr9apBc3l4vqxcDhYGBsIV WixMCCCCHjC1BnvQmgAk5p pCa4iWgbKtqjBUK5Bsd1AX 1wwp77gem9tWzoVGUpjtvs IwH7ADnqHACovveiHJm8DS tcDQAtaVN8JDKrjLCmG3Mo ANMvOT3kekl3NNV6ZJjzSC OaZsF9IKIiwASuWTNdtJco YUvse597BYA8BrOmCD5xE2 Vag8S8aD9auUUoBTWicWKs PfVcFKPerk7fhBZjZNkbh9 ShQPN2klQ2jQKgpUNmIDCf GZ09Wdzul5JdVefyg9DiH3 4jiML3ECcxy2tzKF7xKdI1 pzXvQTdry0seoG5lSuE1TZ cbMR4aLH0dGBJzyD0kyrrs XHBnYnJkcmhlYWRccGdicm ItJy9rlQunUSD2KHmhK2nh oP1pFdE6VGfeY2odfH6mWQ c3WHgfbCM2XQKscG8yEP6q twbds1cnZBrzFLsiQKQcrv Q5zpV4LPOriXZcF6FnuC3f YLSyDS9ouytpr4ltTRK3QG wyVUWkPIU2VnPnDIXac9Tz nkh2UiOvy6IlbLAcBSifJ0 8ho491OQLzhvFhI4gkrFHl mcldrJKbgcuaEYogtvQ0LH JmmcJgu8PcNZAiCHK0EZjw YBtlzNXyILDunBexn5qdT6 RscGFyXHBsYWluXGYxXGZz MjBcbGFuZzEwMzNcaGljaF yeGIgsFtTuSKGsNFeoB9vd YbSnT8DdNWNnWwHrsLTfL8 ggVGhpcyByZXBvcnQgbWF5 CHqgV4n6KIAwpxAjyBu8fd HuTyWdDAAnVNJ8ZKoamPPg RNAws7GjjpqmxIVrMj8xuN KvODCyzU1eXWOjKBNdXDbz JV5jwFs2IMAGiGAizCGnPy TTCBEnEO38lhJfPRFKgfqy t6F8RPouTNRwx9QejPLfU3 kdy2TbRSLup01qWV8jv4S2 b5gxKYP3CL5ln8VuLABmfA JieOHrOACbt5Molhszi3Qm VCRnpbQae5ZsMWUkjrEobR EyMQTqfgGhrr0uxsRiXNFg YAHgM8UkcgjpkDtjzuFoWY Qnol5lwzPiIIE4JJPJGNMr VYOmd8UfpA4ajSUBPNJ5mV Kneg1jzqNTpVJoNHQfvv55 ASDvUA5lX3ioPSCxAHRhna LjxJMfm9OyFVWqqGZ7tELu DU6JWmJRw39rCDHhZXTTvb SnITQutXcpmNG6jtD6qX0a IChGREEpLlx+IFRoZSBGRE EfOA2uqzQbh9MlbmVyhOom IBJqrOAmz5ChkGRzi3WmkW bxh2AnyYScdQGqZG5sNBGi clxwYXIgVVRNQiBMYWJvcm H5b7SeRSAbMZUoGLN9zDkb qhg2VXIpyC2rNWJfY9cwev rzARspIZDfi9JnlC1zkOQO gIXlc4OznSLyrDNGqICqIO 9xvkAmBQqQPLqQODQ9beOl JVDjm6VxHKhqZ5teV79qoV xjsFr8uKD8MSE8wM8xCdj+ IFxwYXJccGFyIEFwcHJvcH GnCAYjaAcgznJcK1ZddaHh nD1axBQgfeRkBA1yDQ6kU5 N5qXHjUXPklhVyr6bgTYpy dmUgYmVlbiByZXZpZXdlZC Amd6ChNYvbFXN8BVgecsYt bmNsdWRpbmcgSCZFLCBTcG AgxUQcPOV3XCrrfnOobwSm CS1qhD9deNgfyB8hxYXssC F4sveqVJRiMOHnhUdxSBEz UE6vbKMuGRYlegUAjGmniZ IndY3eT4BfKYXpBUBbgw2a YAPmgM2hQIjvq3WqfjmxPZ XjSCVkXSUqgtHrzn5qYMBb iADSZQ5WIFftcGQld0Lqsa SoJ8jBFLS9BZMzGhRuKwnn DAVxsMNhcVAkDQQfri27CF CpiY2jmCkuLTQewQ3lgG6i jNfngB1tVkEjAfAvYMnfJV 9iRNCaX4mxyEXiZPGrQXCv O6oeLlCptT4ypUivMEehOl CwEpYaACjfNKT7fM== Embedded Images (test code = 8400172160) [facility] WITH [id number] 11:44:45 Test Item Value Reference Range Interpretation [...] (test code = 62.1 fL 38.5-51.6 H 08490-5) RDW-CV (test code = 19.9 % 12.1-15.4 H 788-0) PLT (test code = 269 See_Comment [Automated 777-3) message] The sy stem which generated this result transmitted reference range : 150 - 328 10*3/ ?L. The reference r lorena was not used to interpret this result as normal/abnormal . MPV (test code = 9.9 fL 9.8-13.0 31314-7) NRBC/100 WBC (test 3.0 See_Comment [Automat ed code = 3313611202) message] The system which generated this result transmitted reference range : 0.0 - 10.0 /100 WBCs. The refer ence range was not u sed to interpret th is result as normal/abnormal . NRBC x10^3 (test code 0.35 See_Comment [Auto mated = 8927700974) message] The s ystem which generated this result transmitted reference range : 10*3/?L. The reference range was not used to interpret this result as normal/abnormal . GRAN MAT (NEUT) % 65.9 % (test code = 770-8) IMM GRAN % (test code 1.00 % = 4697175455) LYMPH % (test code = 8.2 % 736-9) MONO % (test code = 14.3 % 5905-5) EOS % (test code = 9.6 % 713-8) BASO % (test code = 1.0 % 706-2) GRAN MAT x10^3(ANC) 7.68 10*3/uL 1.99-6.95 H (test code = 0015509926) IMM GRAN x10^3 (test 0.12 10*3/uL 0.00-0.06 H code = 8241436765) LYMPH x10^3 (test code 0.96 10*3/uL 1.09-3.23 L = 731-0) MONO x10^3 (test code 1.67 10*3/uL 0.36-1.02 H = 742-7) EOS x10^3 (test code = 1.12 10*3/uL 0.06-0.53 H 711-2) BASO x10^3 (test code 0.12 10*3/uL 0.01-0.09 H = 704-7) TARGET CELLS (test 2+ See_Comment A [Automat ed code = 67750-6) message] The system which generated this result transmitted reference range : (none). The reference range was not used to interpret this result as normal/abnormal . Lab Interpretation Abnormal (test code = 66897-4) [facility] WITH [id number] 11:44:45 Test Item Value Reference Range Interpretation [...] (test code = 62.1 fL 38.5-51.6 H 67612-1) RDW-CV (test code = 19.9 % 12.1-15.4 H 788-0) PLT (test code = 269 See_Comment [Automated 777-3) message] The sy stem which generated this result transmitted reference range : 150 - 328 10*3/ ?L. The reference r lorena was not used to interpret this result as normal/abnormal . MPV (test code = 9.9 fL 9.8-13.0 71208-8) NRBC/100 WBC (test 3.0 See_Comment [Automat ed code = 5229818222) message] The system which generated this result transmitted reference range : 0.0 - 10.0 /100 WBCs. The refer ence range was not u sed to interpret th is result as normal/abnormal . NRBC x10^3 (test code 0.35 See_Comment [Auto mated = 2500838782) message] The s ystem which generated this result transmitted reference range : 10*3/?L. The reference range was not used to interpret this result as normal/abnormal . GRAN MAT (NEUT) % 65.9 % (test code = 770-8) IMM GRAN % (test code 1.00 % = 5390347756) LYMPH % (test code = 8.2 % 736-9) MONO % (test code = 14.3 % 5905-5) EOS % (test code = 9.6 % 713-8) BASO % (test code = 1.0 % 706-2) GRAN MAT x10^3(ANC) 7.68 10*3/uL 1.99-6.95 H (test code = 2183958942) IMM GRAN x10^3 (test 0.12 10*3/uL 0.00-0.06 H code = 3832678399) LYMPH x10^3 (test code 0.96 10*3/uL 1.09-3.23 L = 731-0) MONO x10^3 (test code 1.67 10*3/uL 0.36-1.02 H = 742-7) EOS x10^3 (test code = 1.12 10*3/uL 0.06-0.53 H 711-2) BASO x10^3 (test code 0.12 10*3/uL 0.01-0.09 H = 704-7) TARGET CELLS (test 2+ See_Comment A [Automat ed code = 07406-9) message] The system which generated this result transmitted reference range : (none). The reference range was not used to interpret this result as normal/abnormal . Lab Interpretation Abnormal (test code = 60711-8) [facility] METABOLIC PANEL (NA, K, CL, CO2, GLUCOSE, BUN, CREATININE, CA)2022-06-06 11:33:01 Test Item Value Reference Range Interpretation Comments NA (test code = 137 mmol/L 135-145 7375028976) K (test code = 4.5 mmol/L 3.5-5.0 9221274745) CL (test code = 105 mmol/L 98-108 7029587628) CO2 TOTAL (test code = 28 mmol/L 23-31 2671154464) AGAP (test code = 4 2-16 5422663389) BUN (test code = 30 mg/dL 7-23 H 0879328902) GLUCOSE (test code = 93 mg/dL 70-110 6919752449) CREATININE (test code = 5.58 mg/dL 0.60-1.25 H 2800631058) CALCIUM (test code = 7.0 mg/dL 8.6-10.6 L 1026035764) eGFR (test code = 11.0 mL/min/1.73m2 5365571847) TAHIRA (test code = TAHIRA) Association of [...] tests). Lab Interpretation Abnormal (test code = 94560-3) [facility] Test Item Value Reference Range Interpretation Comments MAGNESIUM (test code = 1450179640) 1.6 mg/dL 1.7-2.4 L Lab Interpretation (test code = Abnormal 54935-5) [facility] METABOLIC PANEL (NA, K, CL, CO2, GLUCOSE, BUN, CREATININE, CA)2022-06-06 11:33:01 Test Item Value Reference Range Interpretation Comments NA (test code = 137 mmol/L 135-145 0358419964) K (test code = 4.5 mmol/L 3.5-5.0 1207171283) CL (test code = 105 mmol/L 98-108 5362063487) CO2 TOTAL (test code = 28 mmol/L 23-31 4786199413) AGAP (test code = 4 2-16 4505239736) BUN (test code = 30 mg/dL 7-23 H 7774732815) GLUCOSE (test code = 93 mg/dL 70-110 0019595534) CREATININE (test code = 5.58 mg/dL 0.60-1.25 H 3008227042) CALCIUM (test code = 7.0 mg/dL 8.6-10.6 L 8881480347) eGFR (test code = 11.0 mL/min/1.73m2 0521611534) TAHIRA (test code = TAHIRA) Association of [...] tests). Lab Interpretation Abnormal (test code = 97971-1) [facility] Test Item Value Reference Range Interpretation Comments MAGNESIUM (test code = 4959605360) 1.6 mg/dL 1.7-2.4 L Lab Interpretation (test code = Abnormal 97713-6) [facility] [id number] 11:39:42 Test Item Value Reference Range Interpretation Comments IRON (test code = 0917859570) 34 ug/dL 50-160 L TIBC (test code = 3074530271) 150 ug/dL 250-410 L % FE SAT (test code = 3189271970) 23 % 20-50 Lab Interpretation (test code = Abnormal 42709-1) [facility] [id number] 11:39:42 Test Item Value Reference Range Interpretation Comments IRON (test code = 2395231168) 34 ug/dL 50-160 L TIBC (test code = 4006020684) 150 ug/dL 250-410 L % FE SAT (test code = 2556561758) 23 % 20-50 Lab Interpretation (test code = Abnormal 85180-6) [facility] METABOLIC PANEL (NA, K, CL, CO2, GLUCOSE, BUN, CREATININE, CA)2022-06-05 11:29:03 Test Item Value Reference Range Interpretation Comments NA (test code = 136 mmol/L 135-145 3748139703) K (test code = 4.5 mmol/L 3.5-5.0 8864621741) CL (test code = 104 mmol/L 98-108 3421010407) CO2 TOTAL (test code = 22 mmol/L 23-31 L 8857754412) AGAP (test code = 10 2-16 3329028153) BUN (test code = 43 mg/dL 7-23 H 1352481489) GLUCOSE (test code = 125 mg/dL 70-110 H 6883379562) CREATININE (test code = 7.14 mg/dL 0.60-1.25 H 8655229173) CALCIUM (test code = 7.1 mg/dL 8.6-10.6 L 2971717153) eGFR (test code = 8.3 mL/min/1.73m2 3791387345) TAHIRA (test code = TAHIRA) Association of [...] tests). Lab Interpretation Abnormal (test code = 38589-5) [facility] Test Item Value Reference Range Interpretation Comments MAGNESIUM (test code = 5526397580) 1.6 mg/dL 1.7-2.4 L Lab Interpretation (test code = Abnormal 63646-2) [facility] (NA, K, CL, CO2, GLUCOSE, BUN, CREATININE, CA)2022-06-05 11:29:03 Test Item Value Reference Range Interpretation Comments NA (test code = 136 mmol/L 135-145 5972107721) K (test code = 4.5 mmol/L 3.5-5.0 7162533095) CL (test code = 104 mmol/L 98-108 9581089276) CO2 TOTAL (test code = 22 mmol/L 23-31 L 9991508651) AGAP (test code = 10 2-16 4215355281) BUN (test code = 43 mg/dL 7-23 H 2058603825) GLUCOSE (test code = 125 mg/dL 70-110 H 4439167907) CREATININE (test code = 7.14 mg/dL 0.60-1.25 H 5084033502) CALCIUM (test code = 7.1 mg/dL 8.6-10.6 L 7664320954) eGFR (test code = 8.3 mL/min/1.73m2 5244094346) TAHIRA (test code = TAHIRA) Association of [...] tests). Lab Interpretation Abnormal (test code = 16290-1) [facility] Test Item Value Reference Range Interpretation Comments MAGNESIUM (test code = 0848119217) 1.6 mg/dL 1.7-2.4 L Lab Interpretation (test code = Abnormal 91406-7) [facility] WITH [id number] 10:28:13 Test Item Value Reference Range Interpretation [...] (test code = 58.8 fL 38.5-51.6 H 40704-2) RDW-CV (test code = 19.3 % 12.1-15.4 H 788-0) PLT (test code = 288 See_Comment [Automated 777-3) message] The sy stem which generated this result transmitted reference range : 150 - 328 10*3/ ?L. The reference r lorena was not used to interpret this result as normal/abnormal . MPV (test code = 9.5 fL 9.8-13.0 L 12577-9) NRBC/100 WBC (test 2.2 See_Comment [Automat ed code = 1259219019) message] The system which generated this result transmitted reference range : 0.0 - 10.0 /100 WBCs. The refer ence range was not u sed to interpret th is result as normal/abnormal . NRBC x10^3 (test code 0.23 See_Comment [Auto mated = 2541200338) message] The s ystem which generated this result transmitted reference range : 10*3/?L. The reference range was not used to interpret this result as normal/abnormal . GRAN MAT (NEUT) % 65.3 % (test code = 770-8) IMM GRAN % (test code 0.70 % = 9475591988) LYMPH % (test code = 8.7 % 736-9) MONO % (test code = 14.1 % 5905-5) EOS % (test code = 10.3 % 713-8) BASO % (test code = 0.9 % 706-2) GRAN MAT x10^3(ANC) 6.80 10*3/uL 1.99-6.95 (test code = 8269025541) IMM GRAN x10^3 (test 0.07 10*3/uL 0.00-0.06 H code = 8431919882) LYMPH x10^3 (test code 0.91 10*3/uL 1.09-3.23 L = 731-0) MONO x10^3 (test code 1.47 10*3/uL 0.36-1.02 H = 742-7) EOS x10^3 (test code = 1.07 10*3/uL 0.06-0.53 H 711-2) BASO x10^3 (test code 0.09 10*3/uL 0.01-0.09 = 704-7) Lab Interpretation Abnormal (test code = 96897-0) [facility] WITH [id number] 10:28:13 Test Item Value Reference Range Interpretation [...] (test code = 58.8 fL 38.5-51.6 H 68375-2) RDW-CV (test code = 19.3 % 12.1-15.4 H 788-0) PLT (test code = 288 See_Comment [Automated 777-3) message] The sy stem which generated this result transmitted reference range : 150 - 328 10*3/ ?L. The reference r lorena was not used to interpret this result as normal/abnormal . MPV (test code = 9.5 fL 9.8-13.0 L 76609-5) NRBC/100 WBC (test 2.2 See_Comment [Automat ed code = 5554571536) message] The system which generated this result transmitted reference range : 0.0 - 10.0 /100 WBCs. The refer ence range was not u sed to interpret th is result as normal/abnormal . NRBC x10^3 (test code 0.23 See_Comment [Auto mated = 4041749197) message] The s ystem which generated this result transmitted reference range : 10*3/?L. The reference range was not used to interpret this result as normal/abnormal . GRAN MAT (NEUT) % 65.3 % (test code = 770-8) IMM GRAN % (test code 0.70 % = 3833856409) LYMPH % (test code = 8.7 % 736-9) MONO % (test code = 14.1 % 5905-5) EOS % (test code = 10.3 % 713-8) BASO % (test code = 0.9 % 706-2) GRAN MAT x10^3(ANC) 6.80 10*3/uL 1.99-6.95 (test code = 3282857555) IMM GRAN x10^3 (test 0.07 10*3/uL 0.00-0.06 H code = 1409443713) LYMPH x10^3 (test code 0.91 10*3/uL 1.09-3.23 L = 731-0) MONO x10^3 (test code 1.47 10*3/uL 0.36-1.02 H = 742-7) EOS x10^3 (test code = 1.07 10*3/uL 0.06-0.53 H 711-2) BASO x10^3 (test code 0.09 10*3/uL 0.01-0.09 = 704-7) Lab Interpretation Abnormal (test code = 17955-3) [facility] [id number] 15:05:27 Test Item Value Reference Range Interpretation Comments ABO & RH (test code A POSITIVE Performe d at [facility] = 20) Laboratory [facility] [address] [place] [id number] Free: [phone] A No. [id number] IAT (test code = Negative Performed a t [facility] 1185) Laboratory [facility] [address] [place] [address] s [id number] Free: [phone] A No. [id number] [facility] [id number] 15:05:27 Test Item Value Reference Range Interpretation Comments ABO & RH (test code A POSITIVE Performe d at [facility] = 20) Laboratory [facility] [address] [place] [address] s [id number] Free: [phone] A No. [id number] IAT (test code = Negative Performed a t [facility] 1185) Laboratory [facility] [address] [place] [address] s [id number] Free: [phone] A No. [id number] [facility] GLUCOSE (AUTOMATED)2022-06-04 14:27:01 Test Item Value Reference Range Interpretation Comments POCT GLU (test code = 9026763491) 90 mg/dL 70-110 Lab Interpretation (test code = Normal 06423-2) [facility] GLUCOSE (AUTOMATED)2022-06-04 14:27:01 Test Item Value Reference Range Interpretation Comments POCT GLU (test code = 9548974666) 90 mg/dL 70-110 Lab Interpretation (test code = Normal 53707-2) [facility] WITHOUT [id number] 13:17:49 Test Item Value Reference Range Interpretation Comments WBC (test code = 6690-2) 14.49 See_Comment H [A utomated message] The system [employer] generated this result transmit evelina reference range : 4.20 - 10.70 10*3/?L. The reference range was not used to interpret this result as normal/abnormal . RBC (test code = 789-8) 2.72 See_Comment L [Au tomated message] The system [employer] generated this result transmit evelina reference range [...] 311 See_Comment [Au tomated message] The system [employer] generated this result transmit evelina reference range : 150 - 328 10*3/?L. The reference range was not used to interpret this result as normal/abnormal . MPV (test code = 10.2 fL 9.8-13.0 32006-7) RDW-CV (test code = 20.8 % 12.1-15.4 H 788-0) RDW-SD (test code = 59.4 fL 38.5-51.6 H 41509-5) NRBC x10^3 (test code = 0.06 See_Comment [Au tomated message] 1736196949) The system [employer] generated this result transmit evelina reference range : 10*3/?L. The reference range was not used to interpret this result as normal/abnormal . NRBC/100 WBC (test code 0.4 See_Comment [Au tomated message] = 4404569164) The system [employer] generated this result transmit evelina reference range : 0.0 - 10.0 /100 WBC s. The reference r lorena was not used to interpret this result as normal/abnormal . IPF % (test code = 8986113726) Lab Interpretation (test Abnormal code = 21953-0) [facility] 13:18:42 Test Item Value Reference Range Interpretation Comments MAGNESIUM (test code = 4850915224) 1.7 mg/dL 1.7-2.4 Lab Interpretation (test code = Normal 34697-2) [facility] 13:18:42 Test Item Value Reference Range Interpretation Comments PHOSPHORUS (test code = 9391988196) 4.2 mg/dL 2.5-5.0 Lab Interpretation (test code = Normal 59046-3) [facility] (NA, K, CL, CO2, GLUCOSE, BUN, CREATININE, CA)2022-05-27 13:18:41 Test Item Value Reference Range Interpretation Comments NA (test code = 131 mmol/L 135-145 L 4994862291) K (test code = 4.7 mmol/L 3.5-5.0 0168785612) CL (test code = 95 mmol/L 98-108 L 8440033287) CO2 TOTAL (test code = 26 mmol/L 23-31 7635143609) AGAP (test code = 10 2-16 8508746406) BUN (test code = 68 mg/dL 7-23 H 0399563900) GLUCOSE (test code = 83 mg/dL 70-110 9496053508) CREATININE (test code = 8.83 mg/dL 0.60-1.25 H 7897887196) CALCIUM (test code = 8.1 mg/dL 8.6-10.6 L 3526076012) eGFR (test code = 6.5 mL/min/1.73m2 0073031981) TAHIRA (test code = TAHIRA) Association of [...] tests). Lab Interpretation Abnormal (test code = 15895-5) [facility] WITHOUT [id number] 12:45:23 Test Item Value Reference Range Interpretation Comments WBC (test code = 6690-2) 17.78 See_Comment H [A utomated message] The system [employer] generated this result transmit evelina reference range : 4.20 - 10.70 10*3/?L. The reference range was not used to interpret this result as normal/abnormal . RBC (test code = 789-8) 2.59 See_Comment L [Au tomated message] The system [employer] generated this result transmit evelina reference range : 4.26 - 5.52 10* 6/?L. The reference r olrena was not used to interpret this result [...] 283 See_Comment [Au tomated message] The system [facility] generated this result transmit evelina reference range : 150 - 328 10*3/?L. The reference range was not used to interpret this result as normal/abnormal . MPV (test code = 10.6 fL 9.8-13.0 86439-2) RDW-CV (test code = 20.4 % 12.1-15.4 H 788-0) RDW-SD (test code = 57.6 fL 38.5-51.6 H 43567-3) NRBC x10^3 (test code = 0.06 See_Comment [Au tomated message] 9339393377) The system [facility] generated this result transmit evelina reference range : 10*3/?L. The reference range was not used to interpret this result as normal/abnormal . NRBC/100 WBC (test code 0.3 See_Comment [Au tomated message] = 2779775228) The system [facility] generated this result transmit evelina reference range : 0.0 - 10.0 /100 WBC s. The reference r lorena was not used to interpret this result as normal/abnormal . IPF % (test code = 9052373293) Lab Interpretation (test Abnormal code = 24504-0) [facility] WITH [id number] 22:24:54 Test Item Value Reference Range Interpretation [...] (test code = 54.9 fL 38.5-51.6 H 88380-5) RDW-CV (test code = 19.7 % 12.1-15.4 H 788-0) PLT (test code = 237 See_Comment [Automated 777-3) message] The system which generated this result transmit evelina reference range : 150 - 328 10*3/ ?L. The reference range was not u sed to interpret th is result as normal/abnormal . MPV (test code = 9.9 fL 9.8-13.0 44770-1) NRBC/100 WBC (test 0.3 See_Comment [Automat ed code = 5026013934) message] The system which generated this result transmit evelina reference range : 0.0 - 10.0 /100 WBCs. The reference range was not used to interpret this result as normal/abnormal . NRBC x10^3 (test code 0.06 See_Comment [Auto mated = 4981331959) message] The system which generated this result transmit evelina reference range : 10*3/?L. The reference range was not used to interpret this result as normal/abnormal . GRAN MAT (NEUT) % 86.4 % (test code = 770-8) IMM GRAN % (test code 0.80 % = 0043635722) LYMPH % (test code = 3.3 % 736-9) MONO % (test code = 7.3 % 5905-5) EOS % (test code = 1.9 % 713-8) BASO % (test code = 0.3 % 706-2) GRAN MAT x10^3(ANC) 15.31 10*3/uL 1.99-6.95 H (test code = 1708479706) IMM GRAN x10^3 (test 0.14 10*3/uL 0.00-0.06 H code = 7764760773) LYMPH x10^3 (test code 0.58 10*3/uL 1.09-3.23 L = 731-0) MONO x10^3 (test code 1.30 10*3/uL 0.36-1.02 H = 742-7) EOS x10^3 (test code = 0.34 10*3/uL 0.06-0.53 711-2) BASO x10^3 (test code 0.05 10*3/uL 0.01-0.09 = 704-7) SIDEROTIC GRAN (test Suggestive of A code = 7795-8) TARGET CELLS (test 2+ See_Comment A [Automat ed code = 84904-9) message] The system which generated this result transmit evelina reference range : (none). The reference range was not used to interpret this result as normal/abnormal . Lab Interpretation Abnormal (test code = 64756-3) [facility]+K+GLU+CA2+2022-05-25 21:17:38 Test Item Value Reference Range Interpretation Comments PH (test code = 2) 7.46 7.35-7.45 H PCO2 (test code = 35 See_Comment [Automate d message] 8888419018) The system [employer] generated this result transmit evelina reference range : 35 - 45 mmHg. The reference range was not used to interpret this result as normal/abnormal . PO2 (test code = 101 See_Comment H [Automated message] 7428984335) The system [employer] generated this result transmit evelina reference range : 80 - 100 mmHg. The reference range was not used to interpret this result as normal/abnormal . HCO3 (test code = 25 See_Comment [Automate d message] 3348800069) The system [employer] generated this result transmit evelina reference range : 22 - 26 mEq/L. The reference range was not used to interpret this result as normal/abnormal . BE (test code = 0.9 See_Comment [Automated message] 7716087614) The system [employer] generated this result transmit evelina reference range : -3.0 - 3.0 mEq/ L. The reference r lorena was not used to interpret this result as normal/abnormal . THB (test code = 8.6 g/dL 13.5-18.0 L 8452906962) %O2HB (test code = 96.4 % 94.0-99.0 0528561840) %COHB ART (test code = 1.1 % 0.0-1.5 0453265029) %METHB ART (test code = 0.3 % 0.4-1.5 L 7888604244) VOL%O2 ART (test code = 11.8 % 15.0-23.0 L 7184957718) NA (test code = 131 mmol/L 135-145 L 0675803828) K+ (test code = 4.3 mmol/L 3.5-5.0 6476829426) AC CA IONZ (test code = 4.70 mg/dL 4.50-5.30 8298289861) GLUCOSE (test code = 120 mg/dL 70-110 H 9619767708) Lab Interpretation Abnormal (test code = 66705-7) [facility]2022-05-25 20:50:25 Test Item Value Reference Range Interpretation Comments POCT GLU (test code = 7739986425) 182 mg/dL 70-110 H Lab Interpretation (test code = Abnormal 02130-4) [facility] Packed RBC (in units), 1 Units 2022-05-25 20:12:38 Test Item Value Reference Range Interpretation Comments Cross Match Result Compatible (test code = 4409) ISBT Blood Type Code 6200 (test code = 864681) Unit Blood Type (test A Pos code = 4410) Unit Number (test [id number] code = 4411) Blood Expiration Date & Time (test code = 285884) Status Information Issued (test code = 4412) Product Red Blood Cells Identification (test code = 4413) Product Code (test [id number] Performed at [facility] code = 4414) Laboratory Services - [facility] Blood [address] [place] [address]Akuc Free: [phone] A No. [id number] [facility] CULTURE(AEROBIC/ANAEROBIC)2022-05-25 13:24:36 Test Item Value Reference Range Interpretation Comments TISSUE CULTURE No aerobic/anaerobic (test code = organisms isolated 06872-3) Gram stain (test No Polymorphonuclear code = 664-3) leukocytes [facility] METABOLIC PANEL (NA, K, CL, CO2, GLUCOSE, BUN, CREATININE, CA)2022-05-25 12:41:02 Test Item Value Reference Range Interpretation Comments NA (test code = 130 mmol/L 135-145 L 5180730162) K (test code = 6.4 mmol/L 3.5-5.0 HH Slight 4639264793) hemolysis CL (test code = 97 mmol/L 98-108 L 1801384989) CO2 TOTAL (test code 20 mmol/L 23-31 L = 9054889709) AGAP (test code = 13 2-16 9646838817) BUN (test code = 81 mg/dL 7-23 H Slight 0696577619) hemolysis GLUCOSE (test code = 82 mg/dL 70-110 2641909890) CREATININE (test code 9.31 mg/dL 0.60-1.25 H = 9833632904) CALCIUM (test code = 8.5 mg/dL 8.6-10.6 L 2626023736) eGFR (test code = 6.1 mL/min/1.73m2 3881793539) TAHIRA (test code = TAHIRA) Association of [...] tests). Lab Interpretation Abnormal (test code = 82205-0) [facility]20[facility]-25 12:34:20 Test Item Value Reference Range Interpretation Comments MAGNESIUM (test code = 4823100014) 1.7 mg/dL 1.7-2.4 Lab Interpretation (test code = Normal 07625-8) [facility]-25 12:34:20 Test Item Value Reference Range Interpretation Comments PHOSPHORUS (test code = 9578493609) 3.9 mg/dL 2.5-5.0 Lab Interpretation (test code = Normal 17684-0) [facility] WITH [id number] 12:23:21 Test Item Value Reference Range Interpretation [...] (test code = 54.4 fL 38.5-51.6 H 61683-1) RDW-CV (test code = 19.8 % 12.1-15.4 H 788-0) PLT (test code = 239 See_Comment [Automated 777-3) message] The system which generated this result transmit evelina reference range : 150 - 328 10*3/ ?L. The reference range was not u sed to interpret th is result as normal/abnormal . MPV (test code = 10.3 fL 9.8-13.0 28550-2) NRBC/100 WBC (test 0.6 See_Comment [Automat ed code = 3688324073) message] The system which generated this result transmit evelina reference range : 0.0 - 10.0 /100 WBCs. The reference range was not used to interpret this result as normal/abnormal . NRBC x10^3 (test code 0.09 See_Comment [Auto mated = 5407490875) message] The system which generated this result transmit evelina reference range : 10*3/?L. The reference range was not used to interpret this result as normal/abnormal . GRAN MAT (NEUT) % 75.2 % (test code = 770-8) IMM GRAN % (test code 0.70 % = 1079909058) LYMPH % (test code = 8.8 % 736-9) MONO % (test code = 10.2 % 5905-5) EOS % (test code = 4.8 % 713-8) BASO % (test code = 0.3 % 706-2) GRAN MAT x10^3(ANC) 12.25 10*3/uL 1.99-6.95 H (test code = 5835406823) IMM GRAN x10^3 (test 0.11 10*3/uL 0.00-0.06 H code = 6054732799) LYMPH x10^3 (test code 1.44 10*3/uL 1.09-3.23 = 731-0) MONO x10^3 (test code 1.67 10*3/uL 0.36-1.02 H = 742-7) EOS x10^3 (test code = 0.78 10*3/uL 0.06-0.53 H 711-2) BASO x10^3 (test code 0.05 10*3/uL 0.01-0.09 = 704-7) SIDEROTIC GRAN (test Suggestive of A code = 7795-8) TARGET CELLS (test 2+ See_Comment A [Automat ed code = 07864-8) message] The system which generated this result transmit evelina reference range : (none). The reference range was not used to interpret this result as normal/abnormal . REACT LYMPHS (test Rare code = 6732772839) Lab Interpretation Abnormal (test code = 90064-1) [facility] METABOLIC PANEL (NA, K, CL, CO2, GLUCOSE, BUN, CREATININE, CA)2022-05-24 13:28:58 Test Item Value Reference Range Interpretation Comments NA (test code = 136 mmol/L 135-145 2965016504) K (test code = 5.2 mmol/L 3.5-5.0 H Slight 1542879547) hemolysis CL (test code = 100 mmol/L 98-108 7665001060) CO2 TOTAL (test code 22 mmol/L 23-31 L = 5070455867) AGAP (test code = 14 2-16 4505233814) BUN (test code = 54 mg/dL 7-23 H Slight 3508759972) hemolysis GLUCOSE (test code = 87 mg/dL 70-110 0068561472) CREATININE (test code 7.75 mg/dL 0.60-1.25 H = 4763931859) CALCIUM (test code = 9.0 mg/dL 8.6-10.6 2900488668) eGFR (test code = 7.5 mL/min/1.73m2 3755222371) TAHIRA (test code = TAHIRA) Association of [...] tests). Lab Interpretation Abnormal (test code = 22077-1) [facility] 13:28:58 Test Item Value Reference Range Interpretation Comments MAGNESIUM (test code = 8098054709) 1.8 mg/dL 1.7-2.4 Lab Interpretation (test code = Normal 51279-2) [facility] 13:28:58 Test Item Value Reference Range Interpretation Comments PHOSPHORUS (test code = 0157950104) 4.5 mg/dL 2.5-5.0 Lab Interpretation (test code = Normal 28434-8) [facility] WITHOUT [id number] 12:11:49 Test Item Value Reference Range Interpretation Comments WBC (test code = 6690-2) 16.21 See_Comment H [A utomated message] The system [employer] generated this result transmit evelina reference range : 4.20 - 10.70 10*3/?L. The reference range was not used to interpret this result as normal/abnormal . RBC (test code = 789-8) 3.68 See_Comment L [Au tomated message] The system [employer] generated this result transmit evelina reference range [...] 286 See_Comment [Au tomated message] The system [facility] generated this result transmit evelina reference range : 150 - 328 10*3/?L. The reference range was not used to interpret this result as normal/abnormal . MPV (test code = 10.7 fL 9.8-13.0 85146-0) RDW-CV (test code = 20.7 % 12.1-15.4 H 788-0) RDW-SD (test code = 58.6 fL 38.5-51.6 H 93276-7) NRBC x10^3 (test code = 0.13 See_Comment [Au tomated message] 5210822078) The system [facility] [employer] generated this result transmit evelina reference range : 10*3/?L. The reference range was not used to interpret this result as normal/abnormal . NRBC/100 WBC (test code 0.8 See_Comment [Au tomated message] = 8608756743) The system [facility] generated this result transmit evelina reference range : 0.0 - 10.0 /100 WBC s. The reference r lorena was not used to interpret this result as normal/abnormal . IPF % (test code = 1417670773) Lab Interpretation (test Abnormal code = 53168-1) [facility] GLUCOSE (AUTOMATED)2022-05-24 10:49:51 Test Item Value Reference Range Interpretation Comments POCT GLU (test code = 4563730969) 98 mg/dL 70-110 Lab Interpretation (test code = Normal 50459-6) [facility] GLUCOSE (AUTOMATED)2022-05-24 10:21:18 Test Item Value Reference Range Interpretation Comments POCT GLU (test code = 2023811139) 70 mg/dL 70-110 Lab Interpretation (test code = Normal 85753-2) [facility] METABOLIC PANEL (NA, K, CL, CO2, GLUCOSE, BUN, CREATININE, CA)2022-05-22 12:56:46 Test Item Value Reference Range Interpretation Comments NA (test code = 134 mmol/L 135-145 L 2167623644) K (test code = 4.8 mmol/L 3.5-5.0 4957528259) CL (test code = 97 mmol/L 98-108 L 5218775628) CO2 TOTAL (test code = 24 mmol/L 23-31 8447469465) AGAP (test code = 13 2-16 4167050259) BUN (test code = 47 mg/dL 7-23 H 6981091430) GLUCOSE (test code = 105 mg/dL 70-110 7430507260) CREATININE (test code = 9.37 mg/dL 0.60-1.25 H 2600124839) CALCIUM (test code = 9.0 mg/dL 8.6-10.6 7461995281) eGFR (test code = 6.1 mL/min/1.73m2 7203894372) TAHIRA (test code = TAHIRA) Association of [...] tests). Lab Interpretation Abnormal (test code = 47652-2) [facility] 12:56:46 Test Item Value Reference Range Interpretation Comments MAGNESIUM (test code = 4979876761) 1.9 mg/dL 1.7-2.4 Lab Interpretation (test code = Normal 37836-5) [facility] 12:56:46 Test Item Value Reference Range Interpretation Comments PHOSPHORUS (test code = 1465816627) 6.3 mg/dL 2.5-5.0 H Lab Interpretation (test code = Abnormal 73748-3) [facility] (NA, K, CL, CO2, GLUCOSE, BUN, CREATININE, CA)2022-05-22 12:56:46 Test Item Value Reference Range Interpretation Comments NA (test code = 134 mmol/L 135-145 L 7488654092) K (test code = 4.8 mmol/L 3.5-5.0 0076619054) CL (test code = 97 mmol/L 98-108 L 1886616866) CO2 TOTAL (test code = 24 mmol/L 23-31 6799420082) AGAP (test code = 13 2-16 0768375552) BUN (test code = 47 mg/dL 7-23 H 6988869939) GLUCOSE (test code = 105 mg/dL 70-110 0404048307) CREATININE (test code = 9.37 mg/dL 0.60-1.25 H 4289995220) CALCIUM (test code = 9.0 mg/dL 8.6-10.6 4414577560) eGFR (test code = 6.1 mL/min/1.73m2 1528934188) TAHIRA (test code = TAHIRA) Association of [...] tests). Lab Interpretation Abnormal (test code = 08906-5) [facility] 12:56:46 Test Item Value Reference Range Interpretation Comments MAGNESIUM (test code = 0090683240) 1.9 mg/dL 1.7-2.4 Lab Interpretation (test code = Normal 33453-8) [facility] 12:56:46 Test Item Value Reference Range Interpretation Comments PHOSPHORUS (test code = 4461635882) 6.3 mg/dL 2.5-5.0 H Lab Interpretation (test code = Abnormal 35044-4) [facility] (NA, K, CL, CO2, GLUCOSE, BUN, CREATININE, CA)2022-05-22 12:56:46 Test Item Value Reference Range Interpretation Comments NA (test code = 134 mmol/L 135-145 L 0962829857) K (test code = 4.8 mmol/L 3.5-5.0 5544962301) CL (test code = 97 mmol/L 98-108 L 8265167541) CO2 TOTAL (test code = 24 mmol/L 23-31 6651206200) AGAP (test code = 13 2-16 1228578336) BUN (test code = 47 mg/dL 7-23 H 7947424981) GLUCOSE (test code = 105 mg/dL 70-110 2867023752) CREATININE (test code = 9.37 mg/dL 0.60-1.25 H 5687400606) CALCIUM (test code = 9.0 mg/dL 8.6-10.6 3111595020) eGFR (test code = 6.1 mL/min/1.73m2 9320352674) TAHIRA (test code = TAHIRA) Association of [...] tests). Lab Interpretation Abnormal (test code = 47953-1) [facility]46 Test Item Value Reference Range Interpretation Comments MAGNESIUM (test code = 0700674218) 1.9 mg/dL 1.7-2.4 Lab Interpretation (test code = Normal 57950-9) [facility] 12:56:46 Test Item Value Reference Range Interpretation Comments PHOSPHORUS (test code = 3214602951) 6.3 mg/dL 2.5-5.0 H Lab Interpretation (test code = Abnormal 96041-7) [facility] - ONCE Uulwope5577-35-60 12:32:41 Test Item Value Reference Range Interpretation Comments ABO & RH (test code A POSITIVE Performe d at [facility] = 20) Laboratory [facility] [place] [address] s [address]Tqhc Free: [phone] A No. [id number] IAT (test code = Negative Performed a t [facility] 1185) Laboratory [facility] hospital Blood [address] s [address]Kmub Free: [phone] A No. [id number] [facility] and Screen - ONCE Crpstdy1444-09-39 12:32:41 Test Item Value Reference Range Interpretation Comments ABO & RH (test code A POSITIVE Performe d at [facility] = 20) Laboratory [facility] hospital Blood [facility] [address] [place] [address] s [address]Muue Free: [phone] A No. [id number] IAT (test code = Negative Performed a t [facility] 1185) Laboratory [facility] Blood [facility] [address] [place] [address] s [address]Dbcy Free: [phone] A No. [id number] [facility] and Screen - ONCE Fonxrkq6033-37-62 12:32:41 Test Item Value Reference Range Interpretation Comments ABO & RH (test code A POSITIVE Performe d at [facility] = 20) Laboratory [facility] Blood [facility] [address] [place] [address] s 848[address]Zpnk Free: [phone] A No. [id number] IAT (test code = Negative Performed a t [facility] 1185) Laboratory [facility] [place], [place] [address]a s [address]Odjv Free: [phone] A No. [id number] [facility]anoProthrombin Time / [id number] 12:15:22 Test Item Value Reference Range Interpretation Comments PROTIME PATIENT (test 13.6 See_Comment H [Auto mated message] code = 5964-2) The system [employer] generated this result transmitted ref erence range: 10.1 - 1 2.6 Seconds. The reference range was not used to int erpret this result as normal/abnormal . INR (test code = 6301-6) 1.2 Nor mal INR <1.1; Warfarin Therap eutic range 2.0 to 3. 0 or 2.5 to 3.5, dep ending upon the indica tions. Lab Interpretation (test Abnormal code = 77005-9) [facility] Time / [id number] 12:15:22 Test Item Value Reference Range Interpretation Comments PROTIME PATIENT (test 13.6 See_Comment H [Auto mated message] code = 5964-2) The system [employer] generated this result transmitted ref erence range: 10.1 - 1 2.6 Seconds. The reference range was not used to int erpret this result as normal/abnormal . INR (test code = 6301-6) 1.2 Nor mal INR <1.1; Warfarin Therap eutic range 2.0 to 3. 0 or 2.5 to 3.5, dep ending upon the indica tions. Lab Interpretation (test Abnormal code = 44055-3) [facility] Time / [id number] 12:15:22 Test Item Value Reference Range Interpretation Comments PROTIME PATIENT (test 13.6 See_Comment H [Auto mated message] code = 5964-2) The system [employer] generated this result transmitted ref erence range: 10.1 - 1 2.6 Seconds. The reference range was not used to int erpret this result as normal/abnormal . INR (test code = 6301-6) 1.2 Nor mal INR <1.1; Warfarin Therap eutic range 2.0 to 3. 0 or 2.5 to 3.5, dep ending upon the indica tions. Lab Interpretation (test Abnormal code = 58198-9) [facility] WITH [id number] 12:09:22 Test Item Value Reference Range Interpretation [...] (test code = 56.2 fL 38.5-51.6 H 39350-9) RDW-CV (test code = 20.3 % 12.1-15.4 H 788-0) PLT (test code = 274 See_Comment [Automated 777-3) message] The sy stem which generated this result transmitted reference range : 150 - 328 10*3/ ?L. The reference r lorena was not used to interpret this result as normal/abnormal . MPV (test code = 10.4 fL 9.8-13.0 73791-8) NRBC/100 WBC (test 0.7 See_Comment [Automat ed code = 1160363907) message] The system which generated this result transmitted reference range : 0.0 - 10.0 /100 WBCs. The refer ence range was not u sed to interpret th is result as normal/abnormal . NRBC x10^3 (test code 0.04 See_Comment [Auto mated = 6429176961) message] The s ystem which generated this result transmitted reference range : 10*3/?L. The reference range was not used to interpret this result as normal/abnormal . GRAN MAT (NEUT) % 56.8 % (test code = 770-8) IMM GRAN % (test code 0.70 % = 9130292602) LYMPH % (test code = 19.5 % 736-9) MONO % (test code = 15.1 % 5905-5) EOS % (test code = 6.5 % 713-8) BASO % (test code = 1.4 % 706-2) GRAN MAT x10^3(ANC) 3.35 10*3/uL 1.99-6.95 (test code = 5172628214) IMM GRAN x10^3 (test 0.04 10*3/uL 0.00-0.06 code = 3260220372) LYMPH x10^3 (test code 1.15 10*3/uL 1.09-3.23 = 731-0) MONO x10^3 (test code 0.89 10*3/uL 0.36-1.02 = 742-7) EOS x10^3 (test code = 0.38 10*3/uL 0.06-0.53 711-2) BASO x10^3 (test code 0.08 10*3/uL 0.01-0.09 = 704-7) Lab Interpretation Abnormal (test code = 69195-7) [facility] WITH [id number] 12:09:22 Test Item Value Reference Range Interpretation Comments WBC (test code = 5.89 See_Comment [Automated 4990-2) message] The sy stem which generated this result transmitted reference range : 4.20 - 10.70 10*3/?L. The reference range was not used to interpret this result as normal/abnormal . RBC (test code = 3.92 See_Comment L [Automated 862-8) message] The sy stem which generated this [...] (test code = 56.2 fL 38.5-51.6 H 23704-4) RDW-CV (test code = 20.3 % 12.1-15.4 H 788-0) PLT (test code = 274 See_Comment [Automated 777-3) message] The sy stem which generated this result transmitted reference range : 150 - 328 10*3/ ?L. The reference r lorena was not used to interpret this result as normal/abnormal . MPV (test code = 10.4 fL 9.8-13.0 77989-4) NRBC/100 WBC (test 0.7 See_Comment [Automat ed code = 9524023535) message] The system which generated this result transmitted reference range : 0.0 - 10.0 /100 WBCs. The refer ence range was not u sed to interpret th is result as normal/abnormal . NRBC x10^3 (test code 0.04 See_Comment [Auto mated = 8017115525) message] The s ystem which generated this result transmitted reference range : 10*3/?L. The reference range was not used to interpret this result as normal/abnormal . GRAN MAT (NEUT) % 56.8 % (test code = 770-8) IMM GRAN % (test code 0.70 % = 5621453124) LYMPH % (test code = 19.5 % 736-9) MONO % (test code = 15.1 % 5905-5) EOS % (test code = 6.5 % 713-8) BASO % (test code = 1.4 % 706-2) GRAN MAT x10^3(ANC) 3.35 10*3/uL 1.99-6.95 (test code = 0421813456) IMM GRAN x10^3 (test 0.04 10*3/uL 0.00-0.06 code = 3155207421) LYMPH x10^3 (test code 1.15 10*3/uL 1.09-3.23 = 731-0) MONO x10^3 (test code 0.89 10*3/uL 0.36-1.02 = 742-7) EOS x10^3 (test code = 0.38 10*3/uL 0.06-0.53 711-2) BASO x10^3 (test code 0.08 10*3/uL 0.01-0.09 = 704-7) Lab Interpretation Abnormal (test code = 18523-3) [facility] WITH [id number] 12:09:22 Test Item Value Reference Range Interpretation [...] (test code = 56.2 fL 38.5-51.6 H 01673-0) RDW-CV (test code = 20.3 % 12.1-15.4 H 788-0) PLT (test code = 274 See_Comment [Automated 777-3) message] The sy stem which generated this result transmitted reference range : 150 - 328 10*3/ ?L. The reference r lorena was not used to interpret this result as normal/abnormal . MPV (test code = 10.4 fL 9.8-13.0 22421-6) NRBC/100 WBC (test 0.7 See_Comment [Automat ed code = 4086356716) message] The system which generated this result transmitted reference range : 0.0 - 10.0 /100 WBCs. The refer ence range was not u sed to interpret th is result as normal/abnormal . NRBC x10^3 (test code 0.04 See_Comment [Auto mated = 2576192312) message] The s ystem which generated this result transmitted reference range : 10*3/?L. The reference range was not used to interpret this result as normal/abnormal . GRAN MAT (NEUT) % 56.8 % (test code = 770-8) IMM GRAN % (test code 0.70 % = 3079094500) LYMPH % (test code = 19.5 % 736-9) MONO % (test code = 15.1 % 5905-5) EOS % (test code = 6.5 % 713-8) BASO % (test code = 1.4 % 706-2) GRAN MAT x10^3(ANC) 3.35 10*3/uL 1.99-6.95 (test code = 5394154494) IMM GRAN x10^3 (test 0.04 10*3/uL 0.00-0.06 code = 8153288876) LYMPH x10^3 (test code 1.15 10*3/uL 1.09-3.23 = 731-0) MONO x10^3 (test code 0.89 10*3/uL 0.36-1.02 = 742-7) EOS x10^3 (test code = 0.38 10*3/uL 0.06-0.53 711-2) BASO x10^3 (test code 0.08 10*3/uL 0.01-0.09 = 704-7) Lab Interpretation Abnormal (test code = 31976-0) [facility] Confirmation (Lab Only)2022-05-19 20:28:54 Test Item Value Reference Range Interpretation Comments ABO & RH (test code A Positive Performe d at [facility] = 20) Laboratory Serv [facility] Blood Bank3 [address] [facility] [address]Joof Free: [phone] A No. [id number] [facility] Confirmation (Lab Only)2022-05-19 20:28:54 Test Item Value Reference Range Interpretation Comments ABO & RH (test code A Positive Performe d at [facility] = 20) Laboratory Critical access hospital Blood [address] s [address]Mwjj Free: [phone] A No. [id number] [facility] Confirmation (Lab Only)2022-05-19 20:28:54 Test Item Value Reference Range Interpretation Comments ABO & RH (test code A Positive Performe d at [facility] = 20) Laboratory Critical access hospital Blood [address] [address]Jrva Free: [phone] A No. [id number] [facility] and Screen - ONCE [id number] 19:17:40 Test Item Value Reference Range Interpretation Comments ABO & RH (test code A POSITIVE Performe d at [facility] = 20) Laboratory Critical access hospital Blood [address] [address]Mmqm Free: [phone] A No. [id number] IAT (test code = Negative Performed a t [facility] 1185) Laboratory Critical access hospital Blood [address] s [address]Dolx Free: [phone] A No. [id number] [facility] and Screen - ONCE [id number] 19:17:40 Test Item Value Reference Range Interpretation Comments ABO & RH (test code A POSITIVE Performe d at [facility] = 20) Laboratory Critical access hospital Blood [address] s [address]Jpvr Free: [phone] A No. [id number] IAT (test code = Negative Performed a t [facility] 1185) Laboratory Critical access hospital Blood [address] s [address]Jinv Free: [phone] A No. [id number] [facility] and Screen - ONCE Lzuwfyp7574-46-23 19:17:40 Test Item Value Reference Range Interpretation Comments ABO & RH (test code A POSITIVE Performe d at [facility] = 20) Laboratory Serv [facility] Blood Bank3 [facility] s [address]Asug Free: [phone] A No. [id number] IAT (test code = Negative Performed a t [facility] 1185) Laboratory Serv [facility] Blood Bank3 [facility] s [address]Wntr Free: [phone] A No. 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 Body Fluid No organisms No growth Previous prelim inary Culture isolated verified result was Screen-Anaerobic Culture In Progress (test code = on 05/13/2022 at 1702 [id number]) CSTPrevious preliminary zbigniew ified result was No [...] 4 days on 05/17/2022 at 14 01 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 [facility]2022-05-18 20:01:41 Test Item Value Reference Range Interpretation Comments Body Fluid No organisms No growth Previous prelim inary Culture isolated verified result was Screen-Aerobic Culture In Pr ogress (test code = on 05/13/2022 at 1702 [id number]) CSTPrevious preliminary zbigniew ified result was No [...] 4 days on 05/17/2022 at 14 01 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 Body Fluid No organisms No growth Previous prelim inary Culture isolated verified result was Screen-Anaerobic Culture In Progress (test code = on 05/13/2022 at 1707 [id number]) CSTPrevious preliminary zbigniew ified result was No [...] 4 days on 05/17/2022 at 14 01 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 [facility]BACTEC BOTTLE[facility]2022-05-18 20:01:41 Test Item Value Reference Range Interpretation Comments Body Fluid No organisms No growth Previous prelim inary Culture isolated verified result was Screen-Aerobic Culture In Pr ogress (test code = on 05/13/2022 at 1702 [id number]) CSTPrevious preliminary zbigniew ified result was No [...] 4 days on 05/17/2022 at 14 01 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 Body 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 organisms No growth Previous prelim inary Culture isolated verified result was Screen-Anaerobic Culture In Progress (test code = on 05/13/2022 at 1702 [id number]) CSTPrevious preliminary zbigniew ified result was No [...] 4 days on 05/17/2022 at 14 01 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 [facility], [id number] 01:31:21 Test Item Value Reference Range Interpretation Comments GLUCOSE (test code = 6108461276) 102 mg/dL 70-110 Lab Interpretation (test code = Normal 84392-3) [facility] Total [id number] 01:31:21 Test Item Value Reference Range Interpretation Comments T PROTEIN (test code = 4545583508) 10.2 g/dL 6.3-8.2 H Lab Interpretation (test code = Abnormal 32463-3) [facility] Wlsfvjwqpawsk3927-18-91 01:31:21 Test Item Value Reference Range Interpretation Comments LDH (test code = 0072498405) 265 U/L 120-246 H Slight hemolysis Lab Interpretation (test Abnormal code = 86596-8) [facility], [id number] 01:31:21 Test Item Value Reference Range Interpretation Comments GLUCOSE (test code = 5998858609) 102 mg/dL 70-110 Lab Interpretation (test code = Normal 88295-2) [facility] Nzrtyrdiprifr6675-24-64 01:31:21 Test Item Value Reference Range Interpretation Comments LDH (test code = 2365011867) 265 U/L 120-246 H Slight hemolysis Lab Interpretation (test Abnormal code = 69105-9) [facility] Total [id number] 01:31:21 Test Item Value Reference Range Interpretation Comments T PROTEIN (test code = 1445312290) 10.2 g/dL 6.3-8.2 H Lab Interpretation (test code = Abnormal 24684-1) [facility], [id number] 01:31:21 Test Item Value Reference Range Interpretation Comments GLUCOSE (test code = 5922233146) 102 mg/dL 70-110 Lab Interpretation (test code = Normal 81003-3) [facility] Czbssxlupgfqi5074-42-06 01:31:21 Test Item Value Reference Range Interpretation Comments LDH (test code = 4472529267) 265 U/L 120-246 H Slight hemolysis Lab Interpretation (test Abnormal code = 63100-3) [facility] Total [id number] 01:31:21 Test Item Value Reference Range Interpretation Comments T PROTEIN (test code = 8872594657) 10.2 g/dL 6.3-8.2 H Lab Interpretation (test code = Abnormal 54377-4) [facility], [id number] 01:31:21 Test Item Value Reference Range Interpretation Comments GLUCOSE (test code = 8153208645) 102 mg/dL 70-110 Lab Interpretation (test code = Normal 86846-9) [facility] Jzedxeqlnqzzu3879-35-59 01:31:21 Test Item Value Reference Range Interpretation Comments LDH (test code = 1202823247) 265 U/L 120-246 H Slight hemolysis Lab Interpretation (test Abnormal code = 71584-6) [facility] Total [id number] 01:31:21 Test Item Value Reference Range Interpretation Comments T PROTEIN (test code = 9989492284) 10.2 g/dL 6.3-8.2 H Lab Interpretation (test code = Abnormal 47646-1) [facility]ansthor[facility] (TTE)2022-05-10 22:33:49 Test Item Value Reference Range Interpretation Comments Height (test code = 68 in 3054440981) Weight (test code = 167 lbs 6777192027) Systolic BP (test 152 mmHg code = 7663586154) Diastolic BP (test 117 mmHg code = 5790149389) Heart Rate (test code 71 bpm = 4476435856) LVOT stroke volume 59.00 cm3 (test code = 0541132557) LVOT diameter (test 2.14 cm code = 6746288832) LVOT area (test code 3.60 cm2 = 7989228325) MV Peak E Tiago (test 61.8 cm/s code = 3736135456) MV Peak A Tiago (test 94.1 cm/s code = 0483257096) E/A ratio (test code 0.66 ratio = 1056862886) E wave decelartion 0.29 s time (test code = 0923928336) MV E/e' septal (test 3.4 cm/s code = 5319095856) LA Volume Index (BP) 18.2 mL/m2 (test code = 3473164707) LA volume (BP) (test 34.5 mL code = 2921735744) LVOT peak tiago (test 104.1 cm/s code = 7704919517) LVOT mn grad (test 2.1 mmHg code = 4476848748) BSA (test code = 1.89 m2 7413077991) LA size (test code = 2.9 cm 4511209217) LAV(MOD-sp2) (test 38.30 mL code = 5640037820) LAV(MOD-sp4) (test 28.40 mL code = 5039253372) Tapse (test code = 1.30 cm 5491206892) AV LVOT peak gradient 4.3 mmHg (test code = 0689532135) LVOT peak VTI (test 16.3 cm code = 4628309113) LV V1 mean (test code 68.20 cm/s = 7877313905) MV Prop V (test code 33.40 cm/s = 3005963267) TR Peak Tiago (test 226.2 cm/s code = 6404400572) Triscuspid Valve 20.5 mmHg Regurgitation Peak Gradient (test code = 0249476950) Ao root diam (test 3.50 cm code = 3844798062) Aortic root (test 3.5 cm code = 2294897038) Ao root annulus (test 3.5 cm code = 2365087123) A2C EF (test code = 44.80 % 5414302866) EF(sp2-el) (test code 47.40 % = 5292812801) SV(MOD-sp2) (test 20.30 mL code = 1678883623) LV Diastolic Volume 61.3 mL (BP) (test code = 7349955125) A4C EF (test code = 50.90 % 5509513073) EF(MOD-bp) (test code 50.90 % = 7242657742) EF(sp4-el) (test code 52.80 % = 6284455304) LV Systolic Volume 30.1 mL (BP) (test code = 6510072993) SV(MOD-bp) (test code 31.20 mL = 1117571950) SV(MOD-sp4) (test 39.30 mL code = 5148956705) SV(sp4-el) (test code 43.60 mL = 5324544177) EF (test code = 51 2107189941) Left Ventricular 31.2 mL Stroke Volume by 2-D Biplane-MOD (test code = 2878761) Aortic valve mean 89.9 cm/s velocity (test code = 1998808951) Ao peak tiago (test 135.1 cm/s code = 1980350498) Ao VTI (test code = 24.1 cm 0119468823) AV area by cont VTI 2.5 cm2 (test code = 4753712194) AV area peak tiago 2.8 cm2 (test code = 0025569122) Ao max PG (test code 7.30 mm[Hg] = 3019309009) AV peak gradient 7.3 mmHg (test code = 0608138753) AV valve area (test 2.45 cm2 code = 2555104594) AV mean gradient 3.5 mmHg (test code = 7718181891) LV Diastolic Volume 32.4 mL/m2 Index (BP) (test code = 6182146409) LV Systolic Volume 15.9 mL/m2 Index (BP) (test code = 2332442253) LVIDS (test code = 3.00 cm 2191738713) Left Ventricular End 35.4 mL Systolic Volume by Teichholz Method (test code = 9775743) EF(Teich) (test code 49.30 % = 1535691098) LVIDD (test code = 4.00 cm 8589471900) Left Ventricular End 69.7 mL Diastolic Volume by Teichholz Method (test code = 2373693) FS (test code = 25 % 4642944445) EF - 2D (test code = 49.30 % 27320259) Radiology Study observation (narrative) (test code = 05796-2) TAHIRA (test code = TAHIRA) ?Left?Ventricle: Left [...] Doppler, spectral Doppler and strain. [facility] [id number] 19:04:03 Test Item Value Reference Range Interpretation Comments CEA (test code = 3.7 ng/mL 0.0-10.0 9747563864) TAHIRA (test code = TAHIRA) CEA Ranges: Non-Smokers ?0-5.0 ng/mLSmokers ? ? ?0-10.0 ng/mL Lab Interpretation (test Normal code = 67556-2) [facility] [id number] 19:04:03 Test Item Value Reference Range Interpretation Comments CEA (test code = 3.7 ng/mL 0.0-10.0 5106114659) TAHIRA (test code = TAHIRA) CEA Ranges: Non-Smokers ?0-5.0 ng/mLSmokers ? ? ?0-10.0 ng/mL Lab Interpretation (test Normal code = 05230-6) [facility] [id number] 19:04:03 Test Item Value Reference Range Interpretation Comments CEA (test code = 3.7 ng/mL 0.0-10.0 4603560774) TAHIRA (test code = TAHIRA) CEA Ranges: Non-Smokers ?0-5.0 ng/mLSmokers ? ? ?0-10.0 ng/mL Lab Interpretation (test Normal code = 73557-9) [facility] [id number] 19:04:03 Test Item Value Reference Range Interpretation Comments CEA (test code = 3.7 ng/mL 0.0-10.0 8090458266) TAHIRA (test code = TAHIRA) CEA Ranges: Non-Smokers ?0-5.0 ng/mLSmokers ? ? ?0-10.0 ng/mL Lab Interpretation (test Normal code = 82745-3) [place] 838992023-02-10 18:27:40 Test Item Value Reference Range Interpretation Comments CA-125 (test code = 6089175108) 10.3 U/mL 0.0-35.0 Lab Interpretation (test code = Normal 80673-3) [place] 838992023-02-10 18:27:40 Test Item Value Reference Range Interpretation Comments CA-125 (test code = 9832170515) 10.3 U/mL 0.0-35.0 Lab Interpretation (test code = Normal 25049-2) [place] 838992023-02-10 18:27:40 Test Item Value Reference Range Interpretation Comments CA-125 (test code = 6531007155) 10.3 U/mL 0.0-35.0 Lab Interpretation (test code = Normal 46775-1) [place] 838992023-02-10 18:27:40 Test Item Value Reference Range Interpretation Comments CA-125 (test code = 6744327372) 10.3 U/mL 0.0-35.0 Lab Interpretation (test code = Normal 86125-6) [facility] Antibody (HBsAb)2022-05-10 11:41:32 Test Item Value Reference Range Interpretation Comments HBsAB (test code = Positive 3670884437) HBsAb 397.00 mIU/mL Semi-Quantitative (test code = 6474132988) TAHIRA (test code = Interpretation: TAHIRA) ?Hepatitis B Surface Antibody ? Negative - Patient is considered to be not immune to infection with HBV. ? ? Positive - Anti-HBs detected at greater than or equal to 12 mIU/mL. ?Patient is considered to be immune to infection with HBV. ? [facility] B Core Antibody, [id number] 11:41:32 Test Item Value Reference Range Interpretation Comments HBC (test code = 3848916652) Negative HBC Semi-Quantitative (test code = 3.09 9567027462) [facility] B Surface Antibody (HBsAb)2022-05-10 11:41:32 Test Item Value Reference Range Interpretation Comments HBsAB (test code = Positive 7917609084) HBsAb 397.00 mIU/mL Semi-Quantitative (test code = 3176967946) TAHIRA (test code = Interpretation: TAHIRA) ?Hepatitis B Surface Antibody ? Negative - Patient is considered to be not immune to infection with HBV. ? ? Positive - Anti-HBs detected at greater than or equal to 12 mIU/mL. ?Patient is considered to be immune to infection with HBV. ? [facility] B Core Antibody, [id number] 11:41:32 Test Item Value Reference Range Interpretation Comments HBC (test code = 0584205451) Negative HBC Semi-Quantitative (test code = 3.09 5694899799) [facility] B Surface Antibody (HBsAb)2022-05-10 11:41:32 Test Item Value Reference Range Interpretation Comments HBsAB (test code = Positive 5464124383) HBsAb 397.00 mIU/mL Semi-Quantitative (test code = 6964081656) TAHIRA (test code = Interpretation: TAHIRA) ?Hepatitis B Surface Antibody ? Negative - Patient is considered to be not immune to infection with HBV. ? ? Positive - Anti-HBs detected at greater than or equal to 12 mIU/mL. ?Patient is considered to be immune to infection with HBV. ? [facility] B Core Antibody, [id number] 11:41:32 Test Item Value Reference Range Interpretation Comments HBC (test code = 5972342206) Negative HBC Semi-Quantitative (test code = 3.09 2720476581) [facility] B Surface Antibody (HBsAb)2022-05-10 11:41:32 Test Item Value Reference Range Interpretation Comments HBsAB (test code = Positive 4395977885) HBsAb 397.00 mIU/mL Semi-Quantitative (test code = 4491861679) TAHIRA (test code = Interpretation: TAHIRA) ?Hepatitis B Surface Antibody ? Negative - Patient is considered to be not immune to infection with HBV. ? ? Positive - Anti-HBs detected at greater than or equal to 12 mIU/mL. ?Patient is considered to be immune to infection with HBV. ? [facility] B Core Antibody, [id number] 11:41:32 Test Item Value Reference Range Interpretation Comments HBC (test code = 5436846152) Negative HBC Semi-Quantitative (test code = 3.09 0791827247) [facility] WITH [id number] 04:32:32 Test Item Value Reference Range Interpretation Comments WBC (test code = 8.57 See_Comment [Automated 6690-2) message] The sy stem which generated this result transmitted reference range : 4.20 - 10.70 10*3/?L. The reference range was not used to interpret this result as normal/abnormal . RBC (test code = 4.41 See_Comment [Automated 049-8) message] The sy stem which generated this [...] (test code = 55.4 fL 38.5-51.6 H 51837-5) RDW-CV (test code = 20.2 % 12.1-15.4 H 788-0) PLT (test code = 352 See_Comment H [Automated 777-3) message] The sy stem which generated this result transmitted reference range : 150 - 328 10*3/ ?L. The reference r lorena was not used to interpret this result as normal/abnormal . MPV (test code = 10.9 fL 9.8-13.0 42831-4) NRBC/100 WBC (test 0.0 See_Comment [Automat ed code = 8286128226) message] The system which generated this result transmitted reference range : 0.0 - 10.0 /100 WBCs. The refer ence range was not u sed to interpret th is result as normal/abnormal . NRBC x10^3 (test code See_Comment [Auto mated = 8969914969) message] The s ystem which generated this result transmitted reference range : 10*3/?L. The reference range was not used to interpret this result as normal/abnormal . GRAN MAT (NEUT) % 66.2 % (test code = 770-8) IMM GRAN % (test code 0.60 % = 7610783380) LYMPH % (test code = 14.8 % 736-9) MONO % (test code = 15.3 % 5905-5) EOS % (test code = 2.2 % 713-8) BASO % (test code = 0.9 % 706-2) GRAN MAT x10^3(ANC) 5.67 10*3/uL 1.99-6.95 (test code = 3302245965) IMM GRAN x10^3 (test 0.05 10*3/uL 0.00-0.06 code = 1097744421) LYMPH x10^3 (test code 1.27 10*3/uL 1.09-3.23 = 731-0) MONO x10^3 (test code 1.31 10*3/uL 0.36-1.02 H = 742-7) EOS x10^3 (test code = 0.19 10*3/uL 0.06-0.53 711-2) BASO x10^3 (test code 0.08 10*3/uL 0.01-0.09 = 704-7) Lab Interpretation Abnormal (test code = 18828-4[facility] WITH [id number] 04:32:32 Test Item Value Reference Range Interpretation [...] (test code = 55.4 fL 38.5-51.6 H 52672-2) RDW-CV (test code = 20.2 % 12.1-15.4 H 788-0) PLT (test code = 352 See_Comment H [Automated 777-3) message] The sy stem which generated this result transmitted reference range : 150 - 328 10*3/ ?L. The reference r lorena was not used to interpret this result as normal/abnormal . MPV (test code = 10.9 fL 9.8-13.0 45322-4) NRBC/100 WBC (test 0.0 See_Comment [Automat ed code = 8887325464) message] The system which generated this result transmitted reference range : 0.0 - 10.0 /100 WBCs. The refer ence range was not u sed to interpret th is result as normal/abnormal . NRBC x10^3 (test code See_Comment [Auto mated = 6600652866) message] The s ystem which generated this result transmitted reference range : 10*3/?L. The reference range was not used to interpret this result as normal/abnormal . GRAN MAT (NEUT) % 66.2 % (test code = 770-8) IMM GRAN % (test code 0.60 % = 2983459470) LYMPH % (test code = 14.8 % 736-9) MONO % (test code = 15.3 % 5905-5) EOS % (test code = 2.2 % 713-8) BASO % (test code = 0.9 % 706-2) GRAN MAT x10^3(ANC) 5.67 10*3/uL 1.99-6.95 (test code = 6321820001) IMM GRAN x10^3 (test 0.05 10*3/uL 0.00-0.06 code = 0576719703) LYMPH x10^3 (test code 1.27 10*3/uL 1.09-3.23 = 731-0) MONO x10^3 (test code 1.31 10*3/uL 0.36-1.02 H = 742-7) EOS x10^3 (test code = 0.19 10*3/uL 0.06-0.53 711-2) BASO x10^3 (test code 0.08 10*3/uL 0.01-0.09 = 704-7) Lab Interpretation Abnormal (test code = 21356-1) [facility] WITH [id number] 04:32:32 Test Item Value Reference Range Interpretation Comments WBC (test code = 8.57 See_Comment [Automated 7232-2) message] The sy stem which generated this result transmitted reference range : 4.20 - 10.70 10*3/?L. The reference range was not used to interpret this result as normal/abnormal . RBC (test code = 4.41 See_Comment [Automated 777-8) message] The sy stem which generated this [...] (test code = 55.4 fL 38.5-51.6 H 15109-6) RDW-CV (test code = 20.2 % 12.1-15.4 H 788-0) PLT (test code = 352 See_Comment H [Automated 777-3) message] The sy stem which generated this result transmitted reference range : 150 - 328 10*3/ ?L. The reference r lorena was not used to interpret this result as normal/abnormal . MPV (test code = 10.9 fL 9.8-13.0 72737-0) NRBC/100 WBC (test 0.0 See_Comment [Automat ed code = 5382207135) message] The system which generated this result transmitted reference range : 0.0 - 10.0 /100 WBCs. The refer ence range was not u sed to interpret th is result as normal/abnormal . NRBC x10^3 (test code See_Comment [Auto mated = 3225598808) message] The s ystem which generated this result transmitted reference range : 10*3/?L. The reference range was not used to interpret this result as normal/abnormal . GRAN MAT (NEUT) % 66.2 % (test code = 770-8) IMM GRAN % (test code 0.60 % = 2161249543) LYMPH % (test code = 14.8 % 736-9) MONO % (test code = 15.3 % 5905-5) EOS % (test code = 2.2 % 713-8) BASO % (test code = 0.9 % 706-2) GRAN MAT x10^3(ANC) 5.67 10*3/uL 1.99-6.95 (test code = 0227982544) IMM GRAN x10^3 (test 0.05 10*3/uL 0.00-0.06 code = 0743334166) LYMPH x10^3 (test code 1.27 10*3/uL 1.09-3.23 = 731-0) MONO x10^3 (test code 1.31 10*3/uL 0.36-1.02 H = 742-7) EOS x10^3 (test code = 0.19 10*3/uL 0.06-0.53 711-2) BASO x10^3 (test code 0.08 10*3/uL 0.01-0.09 = 704-7) Lab Interpretation Abnormal (test code = 33730-3) [facility] VENOUS BLOOD [id number] 04:30:11 Test Item Value Reference Range Interpretation Comments PH (test code = 7.28 7.32-7.42 L 1863270745) PCO2 CARINA (test code = 53 See_Comment H [Auto mated message] 4431038818) The system [employer] generated this result transmitted ref erence range: 41 - 51 mmHg. The reference r lorena was not used to interpret this result as normal/abnor mal. PO2 CARINA (test code = 54 See_Comment H [Autom ated message] 1875113228) The system [employer] generated this result transmitted ref erence range: 25 - 40 mmHg. The reference r lorena was not used to interpret this result as normal/abnor mal. HCO3 CARINA (test code = 24 See_Comment [Auto mated message] [id number]) The system [employer] generated this result transmitted ref erence range: 24 - 28 mEq/L. The reference r lorena was not used to interpret this result as normal/abnor mal. AC VBE(BEAKER) (test -3.0 mEq/L code = 0247214609) Lab Interpretation (test Abnormal code = 10913-1) [facility] VENOUS BLOOD [id number] 04:30:11 Test Item Value Reference Range Interpretation Comments PH (test code = 7.28 7.32-7.42 L [id number]) PCO2 CARINA (test code = 53 See_Comment H [Auto mated message] [id number]) The system [employer] generated this result transmitted ref erence range: 41 - 51 mmHg. The reference r lorena was not used to interpret this result as normal/abnor mal. PO2 CARINA (test code = 54 See_Comment H [Autom ated message] [id number]) The system [employer] generated this result transmitted ref erence range: 25 - 40 mmHg. The reference r lorena was not used to interpret this result as normal/abnor mal. HCO3 CARINA (test code = 24 See_Comment [Auto mated message] [id number]) The system [employer] generated this result transmitted ref erence range: 24 - 28 mEq/L. The reference r lorena was not used to interpret this result as normal/abnor mal. AC VBE(BEAKER) (test -3.0 mEq/L code = 4184837361) Lab Interpretation (test Abnormal code = 60588-1) [facility] VENOUS BLOOD [id number] 04:30:11 Test Item Value Reference Range Interpretation Comments PH (test code = 7.28 7.32-7.42 L 1354823950) PCO2 CARINA (test code = 53 See_Comment H [Auto mated message] [id number]) The system [employer] generated this result transmitted ref erence range: 41 - 51 mmHg. The reference r lorena was not used to interpret this result as normal/abnor mal. PO2 CARINA (test code = 54 See_Comment H [Autom ated message] [id number]) The system [employer] generated this result transmitted ref erence range: 25 - 40 mmHg. The reference r lorena was not used to interpret this result as normal/abnor mal. HCO3 CARINA (test code = 24 See_Comment [Auto mated message] [id number]) The system [employer] generated this result transmitted ref erence range: 24 - 28 mEq/L. The reference r lorena was not used to interpret this result as normal/abnor mal. AC VBE(BEAKER) (test -3.0 mEq/L code = 5972378280) Lab Interpretation (test Abnormal code = 20538-6) [facility] VENOUS BLOOD [id number] 04:30:11 Test Item Value Reference Range Interpretation Comments PH (test code = 7.28 7.32-7.42 L 8138948182) PCO2 CARINA (test code = 53 See_Comment H [Auto mated message] [id number]) The system [employer] generated this result transmitted ref erence range: 41 - 51 mmHg. The reference r lorena was not used to interpret this result as normal/abnor mal. PO2 CARINA (test code = 54 See_Comment H [Autom ated message] [id number]) The system [employer] generated this result transmitted ref erence range: 25 - 40 mmHg. The reference r lorena was not used to interpret this result as normal/abnor mal. HCO3 CARINA (test code = 24 See_Comment [Auto mated message] 8446762694) The system [employer] generated this result transmitted ref erence range: 24 - 28 mEq/L. The reference r lorena was not used to interpret this result as normal/abnor mal. AC VBE(BEAKER) (test -3.0 mEq/L code = 8120245936) Lab Interpretation (test Abnormal code = 55926-9) [facility] GLUCOSE (AUTOMATED)2022-05-10 01:44:34 Test Item Value Reference Range Interpretation Comments POCT GLU (test code = 9625421501) 167 mg/dL 70-110 H Lab Interpretation (test code = Abnormal 90022-0) [facility] GLUCOSE (AUTOMATED)2022-05-10 01:44:34 Test Item Value Reference Range Interpretation Comments POCT GLU (test code = 8878810801) 167 mg/dL 70-110 H Lab Interpretation (test code = Abnormal 27455-8) [facility] GLUCOSE (AUTOMATED)2022-05-10 01:44:34 Test Item Value Reference Range Interpretation Comments POCT GLU (test code = 6781352062) 167 mg/dL 70-110 H Lab Interpretation (test code = Abnormal 61847-3) [facility] GLUCOSE (AUTOMATED)2022-05-10 01:44:34 Test Item Value Reference Range Interpretation Comments POCT GLU (test code = 3558650471) 167 mg/dL 70-110 H Lab Interpretation (test code = Abnormal 36556-7) [facility] GLUCOSE (AUTOMATED)2022-05-10 01:21:58 Test Item Value Reference Range Interpretation Comments POCT GLU (test code = 3729642642) 73 mg/dL 70-110 Lab Interpretation (test code = Normal 76273-9) [facility] GLUCOSE (AUTOMATED)2022-05-10 01:21:58 Test Item Value Reference Range Interpretation Comments POCT GLU (test code = 4849852812) 73 mg/dL 70-110 Lab Interpretation (test code = Normal 46617-7) [facility] 01:21:58 Test Item Value Reference Range Interpretation Comments POCT GLU (test code = 2992916603) 73 mg/dL 70-110 Lab Interpretation (test code = Normal 94388-7) [id number]49 Test Item Value Reference Range Interpretation Comments K (test code = 1454735902) 7.5 mmol/L 3.5-5.0 HH Lab Interpretation (test code = Abnormal 00333-3) [facility] [id number] 00:55:49 Test Item Value Reference Range Interpretation Comments K (test code = 7798449727) 7.5 mmol/L 3.5-5.0 HH Lab Interpretation (test code = Abnormal 00588-2) [facility] [id number] 00:55:49 Test Item Value Reference Range Interpretation Comments K (test code = 6446676036) 7.5 mmol/L 3.5-5.0 HH Lab Interpretation (test code = Abnormal 79058-6) [facility] [id number] 00:55:49 Test Item Value Reference Range Interpretation Comments K (test code = 2414588875) 7.5 mmol/L 3.5-5.0 HH Lab Interpretation (test code = Abnormal 83579-8) [facility] [id number] 00:09:41 Test Item Value Reference Range Interpretation Comments NT-proBNP (test code = 12357 pg/mL <=125 H 6009981396) TAHIRA (test code = TAHIRA) Biotin has been reported to cause a negative bias, interpret results relative to patient's use of biotin. Lab Interpretation (test Abnormal code = 43423-0) [facility] [id number] 00:09:41 Test Item Value Reference Range Interpretation Comments NT-proBNP (test code = 15538 pg/mL <=125 H 5274805816) TAHIRA (test code = TAHIRA) Biotin has been reported to cause a negative bias, interpret results relative to patient's use of biotin. Lab Interpretation (test Abnormal code = 87497-7) [facility] [id number] 00:09:41 Test Item Value Reference Range Interpretation Comments NT-proBNP (test code = 71088 pg/mL <=125 H 3281694498) TAHIRA (test code = TAHIRA) Biotin has been reported to cause a negative bias, interpret results relative to patient's use of biotin. Lab Interpretation (test Abnormal code = 24970-3) [facility] [id number] 00:09:41 Test Item Value Reference Range Interpretation Comments NT-proBNP (test code = 15848 pg/mL <=125 H 6494901256) TAHIRA (test code = TAHIRA) Biotin has been reported to cause a negative bias, interpret results relative to patient's use of biotin. Lab Interpretation (test Abnormal code = 63377-7) [facility] [id number] 23:49:49 Test Item Value Reference Range Interpretation Comments TROPONIN I (test code = 0.045 ng/mL <=0.034 H 1900835774) TAHIRA (test code = TAHIRA) Reference (Normal) [...] biotin. Lab Interpretation Abnormal (test code = 20612-5) [facility] [id number] 23:49:49 Test Item Value Reference Range Interpretation Comments TROPONIN I (test code = 0.045 ng/mL <=0.034 H 8105171350) TAHIRA (test code = TAHIRA) Reference (Normal) [...] biotin. Lab Interpretation Abnormal (test code = 99331-6) [facility] [id number] 23:49:49 Test Item Value Reference Range Interpretation Comments TROPONIN I (test code = 0.045 ng/mL <=0.034 H 6160607104) TAHIRA (test code = TAHIRA) Reference (Normal) [...] biotin. Lab Interpretation Abnormal (test code = 53086-3) [facility] [id number] 23:49:49 Test Item Value Reference Range Interpretation Comments TROPONIN I (test code = 0.045 ng/mL <=0.034 H 1986358806) TAHIRA (test code = TAHIRA) Reference (Normal) [...] biotin. Lab Interpretation Abnormal (test code = 86648-5) [facility]. METABOLIC PANEL (96666)2022-05-09 23:40:31 Test Item Value Reference Range Interpretation Comments NA (test code = 135 mmol/L 135-145 7646852219) K (test code = 6.7 mmol/L 3.5-5.0 9986250721) CL (test code = 98 mmol/L 98-108 0545594828) CO2 TOTAL (test code = 23 mmol/L 23-31 4375325947) AGAP (test code = 14 2-16 2313009068) BUN (test code = 63 mg/dL 7-23 H 0524853406) GLUCOSE (test code = 78 mg/dL 70-110 1611242369) CREATININE (test code = 10.57 mg/dL 0.60-1.25 H 2308040037) TOTAL BILI (test code = 0.7 mg/dL 0.1-1.2 5526112758) CALCIUM (test code = 9.1 mg/dL 8.6-10.6 0834246595) T PROTEIN (test code = 8.0 g/dL 6.3-8.2 5123030516) ALBUMIN (test code = 4.1 g/dL 3.5-5.0 6251159262) ALK PHOS (test code = 87 U/L 34-122 6105715552) ALTv (test code = 16 U/L 5-50 1742-6) AST(SGOT) (test code = 26 U/L 13-40 8887124951) eGFR (test code = 5.3 mL/min/1.73m2 0853191362) TAHIRA (test code = TAHIRA) Association of [...] tests). Lab Interpretation Abnormal (test code = 29258-8) [facility]. METABOLIC PANEL (42428)2022-05-09 23:40:31 Test Item Value Reference Range Interpretation Comments NA (test code = 135 mmol/L 135-145 7742796891) K (test code = 6.7 mmol/L 3.5-5.0 HH 5218644819) CL (test code = 98 mmol/L 98-108 1194486509) CO2 TOTAL (test code = 23 mmol/L 23-31 3631446040) AGAP (test code = 14 2-16 9524699428) BUN (test code = 63 mg/dL 7-23 H 7107245229) GLUCOSE (test code = 78 mg/dL 70-110 0319296978) CREATININE (test code = 10.57 mg/dL 0.60-1.25 H 6459605775) TOTAL BILI (test code = 0.7 mg/dL 0.1-1.2 3020293764) CALCIUM (test code = 9.1 mg/dL 8.6-10.6 3513182827) T PROTEIN (test code = 8.0 g/dL 6.3-8.2 0038622978) ALBUMIN (test code = 4.1 g/dL 3.5-5.0 7128942448) ALK PHOS (test code = 87 U/L 34-122 5972414719) ALTv (test code = 16 U/L 5-50 1742-6) AST(SGOT) (test code = 26 U/L 13-40 4970607348) eGFR (test code = 5.3 mL/min/1.73m2 4788833917) TAHIRA (test code = TAHIRA) Association of [...] tests). Lab Interpretation Abnormal (test code = 47644-9) [facility]. METABOLIC PANEL (62057)2022-05-09 23:40:31 Test Item Value Reference Range Interpretation Comments NA (test code = 135 mmol/L 135-145 2989770753) K (test code = 6.7 mmol/L 3.5-5.0 HH 1333331746) CL (test code = 98 mmol/L 98-108 9387656969) CO2 TOTAL (test code = 23 mmol/L 23-31 3326860051) AGAP (test code = 14 2-16 6166669464) BUN (test code = 63 mg/dL 7-23 H 7664477848) GLUCOSE (test code = 78 mg/dL 70-110 8857559768) CREATININE (test code = 10.57 mg/dL 0.60-1.25 H 8015560560) TOTAL BILI (test code = 0.7 mg/dL 0.1-1.0 2181702281) CALCIUM (test code = 9.1 mg/dL 8.6-10.6 6368059765) T PROTEIN (test code = 8.0 g/dL 6.3-8.2 1070589574) ALBUMIN (test code = 4.1 g/dL 3.5-5.0 2349701071) ALK PHOS (test code = 87 U/L 34-122 2330895445) ALTv (test code = 16 U/L 5-50 1742-6) AST(SGOT) (test code = 26 U/L 13-40 7434509390) eGFR (test code = 5.3 mL/min/1.73m2 4355548651) TAHIRA (test code = TAHIRA) Association of [...] tests). Lab Interpretation Abnormal (test code = 07491-2) [facility] Test Item Value Reference Range Interpretation Comments MAGNESIUM (test code = 7804838239) 1.7 mg/dL 1.7-2.4 Lab Interpretation (test code = Normal 10391-1) [facility]13 Test Item Value Reference Range Interpretation Comments MAGNESIUM (test code = 7258940231) 1.7 mg/dL 1.7-2.4 Lab Interpretation (test code = Normal 24837-1) [facility]38:13 Test Item Value Reference Range Interpretation Comments MAGNESIUM (test code = 9771174004) 1.7 mg/dL 1.7-2.4 Lab Interpretation (test code = Normal 71931-9) [facility] WITH [id number] 22:58:09 Test Item Value Reference Range Interpretation Comments WBC (test code = 7.63 See_Comment [Automated 6690-2) message] The sy stem which generated this result transmitted reference range : 4.20 - 10.70 10*3/?L. The reference range was not used to interpret this result as normal/abnormal . RBC (test code = 4.30 See_Comment [Automated 279-8) message] The sy stem which generated this [...] (test code = 53.5 fL 38.5-51.6 H 68578-0) RDW-CV (test code = 19.9 % 12.1-15.4 H 788-0) PLT (test code = 350 See_Comment H [Automated 777-3) message] The sy stem which generated this result transmitted reference range : 150 - 328 10*3/ ?L. The reference r lorena was not used to interpret this result as normal/abnormal . MPV (test code = 10.2 fL 9.8-13.0 68626-3) NRBC/100 WBC (test 0.0 See_Comment [Automat ed code = 0965229010) message] The system which generated this result transmitted reference range : 0.0 - 10.0 /100 WBCs. The refer ence range was not u sed to interpret th is result as normal/abnormal . NRBC x10^3 (test code See_Comment [Auto mated = 3340499241) message] The s ystem which generated this result transmitted reference range : 10*3/?L. The reference range was not used to interpret this result as normal/abnormal . GRAN MAT (NEUT) % 74.1 % (test code = 770-8) IMM GRAN % (test code 0.10 % = 3009504607) LYMPH % (test code = 11.8 % 736-9) MONO % (test code = 11.0 % 5905-5) EOS % (test code = 2.1 % 713-8) BASO % (test code = 0.9 % 706-2) GRAN MAT x10^3(ANC) 5.65 10*3/uL 1.99-6.95 (test code = 1534547066) IMM GRAN x10^3 (test 0.00-0.06 code = 7355971714) LYMPH x10^3 (test code 0.90 10*3/uL 1.09-3.23 L = 731-0) MONO x10^3 (test code 0.84 10*3/uL 0.36-1.02 = 742-7) EOS x10^3 (test code = 0.16 10*3/uL 0.06-0.53 711-2) BASO x10^3 (test code 0.07 10*3/uL 0.01-0.09 = 704-7) HJ BODIES (test code = Present A 7793-3) TARGET CELLS (test 2+ See_Comment A [Automat ed code = 88131-2) message] The system which generated this result [...] . Lab Interpretation Abnormal (test code = 47053-3) [facility] WITH [id number] 22:58:09 Test Item Value Reference Range Interpretation [...] (test code = 53.5 fL 38.5-51.6 H 83804-3) RDW-CV (test code = 19.9 % 12.1-15.4 H 788-0) PLT (test code = 350 See_Comment H [Automated 777-3) message] The sy stem which generated this result transmitted reference range : 150 - 328 10*3/ ?L. The reference r lorena was not used to interpret this result as normal/abnormal . MPV (test code = 10.2 fL 9.8-13.0 08076-4) NRBC/100 WBC (test 0.0 See_Comment [Automat ed code = 0223270689) message] The system which generated this result transmitted reference range : 0.0 - 10.0 /100 WBCs. The refer ence range was not u sed to interpret th is result as normal/abnormal . NRBC x10^3 (test code See_Comment [Auto mated = 2259989141) message] The s ystem which generated this result transmitted reference range : 10*3/?L. The reference range was not used to interpret this result as normal/abnormal . GRAN MAT (NEUT) % 74.1 % (test code = 770-8) IMM GRAN % (test code 0.10 % = 2573215555) LYMPH % (test code = 11.8 % 736-9) MONO % (test code = 11.0 % 5905-5) EOS % (test code = 2.1 % 713-8) BASO % (test code = 0.9 % 706-2) GRAN MAT x10^3(ANC) 5.65 10*3/uL 1.99-6.95 (test code = 7646930682) IMM GRAN x10^3 (test 0.00-0.06 code = 8979613299) LYMPH x10^3 (test code 0.90 10*3/uL 1.09-3.23 L = 731-0) MONO x10^3 (test code 0.84 10*3/uL 0.36-1.02 = 742-7) EOS x10^3 (test code = 0.16 10*3/uL 0.06-0.53 711-2) BASO x10^3 (test code 0.07 10*3/uL 0.01-0.09 = 704-7) HJ BODIES (test code = Present A 7793-3) TARGET CELLS (test 2+ See_Comment A [Automat ed code = 02919-2) message] The system which generated this result [...] . Lab Interpretation Abnormal (test code = 53673-3) [facility] WITH [id number] 22:58:09 Test Item Value Reference Range Interpretation [...] (test code = 53.5 fL 38.5-51.6 H 34806-5) RDW-CV (test code = 19.9 % 12.1-15.4 H 788-0) PLT (test code = 350 See_Comment H [Automated 777-3) message] The sy stem which generated this result transmitted reference range : 150 - 328 10*3/ ?L. The reference r lorena was not used to interpret this result as normal/abnormal . MPV (test code = 10.2 fL 9.8-13.0 92985-5) NRBC/100 WBC (test 0.0 See_Comment [Automat ed code = 7546832478) message] The system which generated this result transmitted reference range : 0.0 - 10.0 /100 WBCs. The refer ence range was not u sed to interpret th is result as normal/abnormal . NRBC x10^3 (test code See_Comment [Auto mated = 6381441986) message] The s ystem which generated this result transmitted reference range : 10*3/?L. The reference range was not used to interpret this result as normal/abnormal . GRAN MAT (NEUT) % 74.1 % (test code = 770-8) IMM GRAN % (test code 0.10 % = 8557898039) LYMPH % (test code = 11.8 % 736-9) MONO % (test code = 11.0 % 5905-5) EOS % (test code = 2.1 % 713-8) BASO % (test code = 0.9 % 706-2) GRAN MAT x10^3(ANC) 5.65 10*3/uL 1.99-6.95 (test code = 2238055853) IMM GRAN x10^3 (test 0.00-0.06 code = 2776778726) LYMPH x10^3 (test code 0.90 10*3/uL 1.09-3.23 L = 731-0) MONO x10^3 (test code 0.84 10*3/uL 0.36-1.02 = 742-7) EOS x10^3 (test code = 0.16 10*3/uL 0.06-0.53 711-2) BASO x10^3 (test code 0.07 10*3/uL 0.01-0.09 = 704-7) HJ BODIES (test code = Present A 7793-3) TARGET CELLS (test 2+ See_Comment A [Automat ed code = 67156-7) message] The system which generated this result [...] . Lab Interpretation Abnormal (test code = 91025-2) [facility] [id number] 00:13:00 Test Item Value Reference Range Interpretation Comments AFB culture No growth Specimen isolate (test after 6 weeks InformationSp ecimen code = 543-9) of Source: Tissue Specimen incubation. Site: Arm: Left arteriovenous f istula [facility] [id number] 00:13:00 Test Item Value Reference Range Interpretation Comments AFB culture No growth Specimen isolate (test after 6 weeks InformationSp ecimen code = 543-9) of Source: Tissue Specimen incubation. Site: Arm: [facility] [id number] 00:13:00 Test Item Value Reference Range Interpretation Comments AFB culture No growth Specimen isolate (test after 6 weeks InformationSp ecimen code = 543-9) of Source: Tissue Specimen incubation. Site: Arm: Left arteriovenous f istula [facility] [id number] 00:13:00 Test Item Value Reference Range Interpretation Comments AFB culture No growth Specimen isolate (test after 6 weeks InformationSp ecimen code = 543-9) of Source: Tissue Specimen incubation. Site: Arm: Left arteriovenous f istula [facility] [id number] 00:13:00 Test Item Value Reference Range Interpretation Comments AFB culture No growth Specimen isolate (test after 6 weeks InformationSp ecimen code = 543-9) of Source: Tissue Specimen incubation. Site: Arm: Left [facility]iovenous f istula [facility] [id number] 00:13:00 Test Item Value Reference Range Interpretation Comments AFB culture No growth Specimen isolate (test after 6 weeks InformationSp ecimen code = 543-9) of Source: Tissue Specimen incubation. Site: Arm: Left arteriovenous f istula [facility] [id number] 00:13:00 Test Item Value Reference Range Interpretation Comments AFB culture No growth Specimen isolate (test after 6 weeks InformationSp ecimen code = 543-9) of Source: Tissue Specimen incubation. Site: Arm: Left arteriovenous f istula [facility] [id number] 00:13:00 Test Item Value Reference Range Interpretation Comments AFB culture No growth Specimen isolate (test after 6 weeks InformationSp ecimen code = 543-9) of Source: Tissue Specimen incubation. Site: Arm: Left arteriovenous f istula [facility] [id number] 00:13:00 Test Item Value Reference Range Interpretation Comments AFB culture No growth Specimen isolate (test after 6 weeks InformationSp ecimen code = 543-9) of Source: Tissue Specimen incubation. Site: Arm: Left arteriovenous f istula [facility] [id number] 00:13:00 Test Item Value Reference Range Interpretation Comments AFB culture No growth Specimen isolate (test after 6 weeks InformationSp ecimen code = 543-9) of Source: Tissue Specimen incubation. Site: Arm: Left arteriovenous f istula [facility] [id number] 00:13:00 Test Item Value Reference Range Interpretation Comments AFB culture No growth Specimen isolate (test after 6 weeks InformationSp ecimen code = 543-9) of Source: Tissue Specimen incubation. Site: Arm: Left arteriovenous f istula [facility] [id number] 00:13:00 Test Item Value Reference Range Interpretation Comments AFB culture No growth Specimen isolate (test after 6 weeks InformationSp ecimen code = 543-9) of Source: Tissue Specimen incubation. Site: Arm: Left arteriovenous f istula [facility] [id number] 00:13:00 Test Item Value Reference Range Interpretation Comments AFB culture No growth Specimen isolate (test after 6 weeks InformationSp ecimen code = 543-9) of Source: Tissue Specimen incubation. Site: Arm: Left arteriovenous f istula [facility] [id number] 00:13:00 Test Item Value Reference Range Interpretation Comments AFB culture No growth Specimen isolate (test after 6 weeks InformationSp ecimen code = 543-9) of Source: Tissue Specimen incubation. Site: Arm: Left arteriovenous f istula [facility] [id number] 00:13:00 Test Item Value Reference Range Interpretation Comments AFB culture No growth Specimen isolate (test after 6 weeks InformationSp ecimen code = 543-9) of Source: Tissue Specimen incubation. Site: Arm: Left arteriovenous f istula [facility] [id number] 00:13:00 Test Item Value Reference Range Interpretation Comments AFB culture No growth Specimen isolate (test after 6 weeks InformationSp ecimen code = 543-9) of Source: Tissue Specimen incubation. Site: Arm: Left arteriovenous f istula [facility] [id number] 00:13:00 Test Item Value Reference Range Interpretation Comments AFB culture No growth Specimen isolate (test after 6 weeks InformationSp ecimen code = 543-9) of Source: Tissue Specimen incubation. Site: Arm: Left arteriovenous f istula [facility] [id number] 00:13:00 Test Item Value Reference Range Interpretation Comments AFB culture No growth Specimen isolate (test after 6 weeks InformationSp ecimen code = 543-9) of Source: Tissue Specimen incubation. Site: Arm: Left arteriovenous f istula [facility] [id number] 00:13:00 Test Item Value Reference Range Interpretation Comments AFB culture No growth Specimen isolate (test after 6 weeks InformationSp ecimen code = 543-9) of Source: Tissue Specimen incubation. Site: Arm: Left arteriovenous f istula tissue [facility] cult [facility] [id number] 00:15:00 Test Item Value Reference Range Interpretation Comments Fungus culture No growth Specimen isolate (test after 4 weeks InformationSp ecimen code = 580-1) of Source: Tissue Specimen incubation. Site: Arm: Left arteriovenous f istula tissue [facility] cult [facility] [id number] 00:15:00 Test Item Value Reference Range Interpretation Comments Fungus culture No growth Specimen isolate (test after 4 weeks InformationSp ecimen code = 580-1) of Source: Tissue Specimen incubation. Site: Arm: Left arteriovenous f istula tissue for cult [facility] [facility] [id number] 00:15:00 Test Item Value Reference Range Interpretation Comments Fungus culture No growth Specimen isolate (test after 4 weeks InformationSp ecimen code = 580-1) of Source: Tissue Specimen incubation. Site: Arm: Left arteriovenous f istula tissue [facility] [id number] 00:15:00 Test Item Value Reference Range Interpretation Comments Fungus culture No growth Specimen isolate (test after 4 weeks InformationSp ecimen code = 580-1) of Source: Tissue Specimen incubation. Site: Arm: Left arteriovenous f istula tissue [facility] [id number] 00:15:00 Test Item Value Reference Range Interpretation Comments Fungus culture No growth Specimen isolate (test after 4 weeks InformationSp ecimen code = 580-1) of Source: Tissue Specimen incubation. Site: Arm: Left arteriovenous f istula tissue [facility] [id number] 00:15:00 Test Item Value Reference Range Interpretation Comments Fungus culture No growth Specimen isolate (test after 4 weeks InformationSp ecimen code = 580-1) of Source: Tissue Specimen incubation. Site: Arm: Left arteriovenous f istula tissue [facility] [id number] 00:15:00 Test Item Value Reference Range Interpretation Comments Fungus culture No growth Specimen isolate (test after 4 weeks InformationSp ecimen code = 580-1) of Source: Tissue Specimen incubation. Site: Arm: Left arteriovenous f istula tissue [facility] [id number] 00:15:00 Test Item Value Reference Range Interpretation Comments Fungus culture No growth Specimen isolate (test after 4 weeks InformationSp ecimen code = 580-1) of Source: Tissue Specimen incubation. Site: Arm: Left arteriovenous f istula tissue [facility] [id number] 00:15:00 Test Item Value Reference Range Interpretation Comments Fungus culture No growth Specimen isolate (test after 4 weeks InformationSp ecimen code = 580-1) of Source: Tissue Specimen incubation. Site: Arm: Left arteriovenous f istula tissue [facility] [id number] 00:15:00 Test Item Value Reference Range Interpretation Comments Fungus culture No growth Specimen isolate (test after 4 weeks InformationSp ecimen code = 580-1) of Source: Tissue Specimen incubation. Site: Arm: Left arteriovenous f istula tissue [facility] [id number] 00:15:00 Test Item Value Reference Range Interpretation Comments Fungus culture No growth Specimen isolate (test after 4 weeks InformationSp ecimen code = 580-1) of Source: Tissue Specimen incubation. Site: Arm: Left arteriovenous f istula tissue [facility] [id number] 00:15:00 Test Item Value Reference Range Interpretation Comments Fungus culture No growth Specimen isolate (test after 4 weeks InformationSp ecimen code = 580-1) of Source: Tissue Specimen incubation. Site: Arm: Left arteriovenous f istula tissue [facility] [id number] 00:15:00 Test Item Value Reference Range Interpretation Comments Fungus culture No growth Specimen isolate (test after 4 weeks InformationSp ecimen code = 580-1) of Source: Tissue Specimen incubation. Site: Arm: Left arteriovenous f istula tissue [facility] [id number] 00:15:00 Test Item Value Reference Range Interpretation Comments Fungus culture No growth Specimen isolate (test after 4 weeks InformationSp ecimen code = 580-1) of Source: Tissue Specimen incubation. Site: Arm: Left arteriovenous f istula tissue for [facility] [id number] 00:15:00 Test Item Value Reference Range Interpretation Comments Fungus culture No growth Specimen isolate (test after 4 weeks InformationSp ecimen code = 580-1) of Source: Tissue Specimen incubation. Site: Arm: Left arteriovenous f istula tissue [facility] [id number] 00:15:00 Test Item Value Reference Range Interpretation Comments Fungus culture No growth Specimen isolate (test after 4 weeks InformationSp ecimen code = 580-1) of Source: Tissue Specimen incubation. Site: Arm: Left arteriovenous f istula tissue [facility] [id number] 00:15:00 Test Item Value Reference Range Interpretation Comments Fungus culture No growth Specimen isolate (test after 4 weeks InformationSp ecimen code = 580-1) of Source: Tissue Specimen incubation. Site: Arm: Left arteriovenous f istula tissue [facility] [id number] 00:15:00 Test Item Value Reference Range Interpretation Comments Fungus culture No growth Specimen isolate (test after 4 weeks InformationSp ecimen code = 580-1) of Source: Tissue Specimen incubation. Site: Arm: Left arteriovenous f istula tissue for cult [facility] [id number] 00:15:00 Test Item Value Reference Range Interpretation Comments Fungus culture No growth Specimen isolate (test after 4 weeks InformationSp ecimen code = 580-1) of Source: Tissue Specimen incubation. Site: Arm: Left arteriovenous f istula tissue for cult ure [facility] [id number] 14:37:00 Test Item Value Reference Range Interpretation Comments Anaerobic No anaerobic Specimen culture isolate organisms InformationS pecimen (test code = isolated. Source: TissueS pecimen 24759-0) Site: Arm: Left arteriovenous f istula tissue for cult ure [facility] [id number] 14:37:00 Test Item Value Reference Range Interpretation Comments Anaerobic No anaerobic Specimen culture isolate organisms InformationS pecimen (test code = isolated. Source: TissueS pecimen 81804-4) Site: Arm: Left arteriovenous f istula tissue for cult ure [facility] [id number] 14:37:00 Test Item Value Reference Range Interpretation Comments Anaerobic No anaerobic Specimen culture isolate organisms InformationS pecimen (test code = isolated. Source: TissueS pecimen 15023-8) Site: Arm: Left arteriovenous f istula tissue for cult ure [facility] [id number] 14:37:00 Test Item Value Reference Range Interpretation Comments Anaerobic No anaerobic Specimen culture isolate organisms InformationS pecimen (test code = isolated. Source: TissueS pecimen 18935-1) Site: Arm: Left arteriovenous f istula tissue for cult ure [facility] [id number] 14:37:00 Test Item Value Reference Range Interpretation Comments Anaerobic No anaerobic Specimen culture isolate organisms InformationS pecimen (test code = isolated. Source: TissueS pecimen 18404-8) Site: Arm: Left arteriovenous f istula tissue for cult ure [facility] [id number] 14:37:00 Test Item Value Reference Range Interpretation Comments Anaerobic No anaerobic Specimen culture isolate organisms InformationS pecimen (test code = isolated. Source: TissueS pecimen 79744-0) Site: Arm: Left arteriovenous f istula tissue for cult ure [facility] [id number] 14:37:00 Test Item Value Reference Range Interpretation Comments Anaerobic No anaerobic Specimen culture isolate organisms InformationS pecimen (test code = isolated. Source: TissueS pecimen 32798-2) Site: Arm: Left arteriovenous f istula [facility] [id number] 14:37:00 Test Item Value Reference Range Interpretation Comments Anaerobic No anaerobic Specimen culture isolate organisms InformationS pecimen (test code = isolated. Source: TissueS pecimen 69242-4) Site: Arm: Left arteriovenous f istula tissue for cult ure [facility] [id number] 14:37:00 Test Item Value Reference Range Interpretation Comments Anaerobic No anaerobic Specimen culture isolate organisms InformationS pecimen (test code = isolated. Source: TissueS pecimen 24308-9) Site: Arm: Left arteriovenous f istula tissue for cult ure [facility] [id number] 14:37:00 Test Item Value Reference Range Interpretation Comments Anaerobic No anaerobic Specimen culture isolate organisms InformationS pecimen (test code = isolated. Source: TissueS pecimen 01205-7) Site: Arm: Left arteriovenous f istula tissue for [facility] [id number] 14:37:00 Test Item Value Reference Range Interpretation Comments Anaerobic No anaerobic Specimen culture isolate organisms InformationS pecimen (test code = isolated. Source: TissueS pecimen 77109-6) Site: Arm: Left arteriovenous f istula tissue for cult ure [facility] [id number] 14:37:00 Test Item Value Reference Range Interpretation Comments Anaerobic No anaerobic Specimen culture isolate organisms InformationS pecimen (test code = isolated. Source: TissueS pecimen 88177-2) Site: Arm: Left arteriovenous f istula tissue for [facility] [id number] 14:37:00 Test Item Value Reference Range Interpretation Comments Anaerobic No anaerobic Specimen culture isolate organisms InformationS pecimen (test code = isolated. Source: TissueS pecimen 45850-2) Site: Arm: Left arteriovenous f istula tissue for cult ure [facility] [id number] 14:37:00 Test Item Value Reference Range Interpretation Comments Anaerobic No anaerobic Specimen culture isolate organisms InformationS pecimen (test code = isolated. Source: TissueS pecimen 10560-5) Site: Arm: Left arteriovenous f istula tissue for cult ure [facility] [id number] 14:37:00 Test Item Value Reference Range Interpretation Comments Anaerobic No anaerobic Specimen culture isolate organisms InformationS pecimen (test code = isolated. Source: TissueS pecimen 66904-4) Site: Arm: Left arteriovenous f istula tissue for [facility] ure [facility] [id number] 14:37:00 Test Item Value Reference Range Interpretation Comments Anaerobic No anaerobic Specimen culture isolate organisms InformationS pecimen (test code = isolated. Source: TissueS pecimen 05279-4) Site: Arm: Left arteriovenous f istula tissue for cult ure [facility] [id number] 14:37:00 Test Item Value Reference Range Interpretation Comments Anaerobic No anaerobic Specimen culture isolate organisms InformationS pecimen (test code = isolated. Source: TissueS pecimen 22038-6) Site: Arm: Left arteriovenous f istula tissue for [facility] [id number] 14:37:00 Test Item Value Reference Range Interpretation Comments Anaerobic No anaerobic Specimen culture isolate organisms InformationS pecimen (test code = isolated. Source: TissueS pecimen 47302-7) Site: Arm: Left arteriovenous f istula tissue for cult [facility] [id number] 14:37:00 Test Item Value Reference Range Interpretation Comments Anaerobic No anaerobic Specimen culture isolate organisms InformationS pecimen (test code = isolated. Source: TissueS pecimen 34068-3) Site: Arm: Left arteriovenous f istula tissue for [facility] [id number] 14:37:00 Test Item Value Reference Range Interpretation Comments Anaerobic No anaerobic Specimen culture isolate organisms InformationS pecimen (test code = isolated. Source: TissueS pecimen 27808-8) Site: Arm: Left arteriovenous f istula tissue for [facility] [id number] 03:13:00 Test Item Value Reference Range Interpretation Comments Tissue culture No growth Specimen isolate (test after 3 days. InformationSp ecimen code = 68724-2) Source: [facility] ueSpecimen Site: Arm: Left arteriovenous f istula tissue for [facility] [id number] 03:13:00 Test Item Value Reference Range Interpretation Comments Tissue culture No growth Specimen isolate (test after 3 days. InformationSp ecimen code = 39139-9) [facility]: [facility]oven[facility] f istula [facility] [id number] 03:13:00 Test Item Value Reference Range Interpretation Comments Tissue culture No growth Specimen isolate (test after 3 days. InformationSp ecimen code = 53021-3) Source: [facility] Site: Arm: Left arteriovenous f istula tissue [facility] cult [facility] [id number] 03:13:00 Test Item Value Reference Range Interpretation Comments Tissue culture No growth Specimen isolate (test after 3 days. InformationSp ecimen code = 82700-4) Source: [facility] Site: Arm: Left arteriovenous f istula tissue for cult [facility] [id number] 03:13:00 Test Item Value Reference Range Interpretation Comments Tissue culture No growth Specimen isolate (test after 3 days. InformationSp ecimen code = 89375-4) Source: [facility] Site: Arm: Left arteriovenous f istula tissue for cult [facility] [id number] 03:13:00 Test Item Value Reference Range Interpretation Comments Tissue culture No growth Specimen isolate (test after 3 days. InformationSp ecimen code = 24303-6) Source: [facility] Site: Arm: Left arteriovenous f istula tissue [facility] [id number] 03:13:00 Test Item Value Reference Range Interpretation Comments Tissue culture No growth Specimen isolate (test after 3 days. InformationSp ecimen code = 04229-9) Source: [facility] Site: Arm: Left arteriovenous f istula tissue [facility] [id number] 03:13:00 Test Item Value Reference Range Interpretation Comments Tissue culture No growth Specimen isolate (test after 3 days. InformationSp ecimen code = 13862-7) Source: [facility] Site: Arm: Left arteriovenous f istula tissue for cult [facility] [id number] 03:13:00 Test Item Value Reference Range Interpretation Comments Tissue culture No growth Specimen isolate (test after 3 days. InformationSp ecimen code = 31770-5) Source: [facility] ueSpecimen Site: Arm: Left arteriovenous f istula tissue for cult [facility] [id number] 03:13:00 Test Item Value Reference Range Interpretation Comments Tissue culture No growth Specimen isolate (test after 3 days. InformationSp ecimen code = 62357-0) Source: [facility]: Arm: Left arteriovenous f istula tissue for cult [facility] [id number] 03:13:00 Test Item Value Reference Range Interpretation Comments Tissue culture No growth Specimen isolate (test after 3 days. InformationSp ecimen code = 50346-8) Source: [facility] Site: Arm: Left arteriovenous f istula tissue for cult [facility] [id number] 03:13:00 Test Item Value Reference Range Interpretation Comments Tissue culture No growth Specimen isolate (test after 3 days. InformationSp ecimen code = 96070-0) Source: [facility] ueSpecimen Site: Arm: Left arteriovenous f istula tissue for cult [facility] [id number] 03:13:00 Test Item Value Reference Range Interpretation Comments Tissue culture No growth Specimen isolate (test after 3 days. InformationSp ecimen code = 71272-3) Source: [facility] ueSpecimen Site: Arm: Left arteriovenous f istula tissue [facility] cult [facility] [id number] 03:13:00 Test Item Value Reference Range Interpretation Comments Tissue culture No growth Specimen isolate (test after 3 days. InformationSp ecimen code = 12241-1) Source: [facility] ueSpecimen Site: Arm: Left arteriovenous f istula tissue [facility] [id number] 03:13:00 Test Item Value Reference Range Interpretation Comments Tissue culture No growth Specimen isolate (test after 3 days. InformationSp ecimen code = 40911-5) Source: [facility] ueSpecimen Site: Arm: Left arteriovenous f istula tissue for cult [facility] [id number] 03:13:00 Test Item Value Reference Range Interpretation Comments Tissue culture No growth Specimen isolate (test after 3 days. InformationSp ecimen code = 72449-6) Source: [facility] Site: Arm: Left arteriovenous f istula tissue for [facility] [id number] 03:13:00 Test Item Value Reference Range Interpretation Comments Tissue culture No growth Specimen isolate (test after 3 days. InformationSp ecimen code = 18054-4) Source: [facility] Site: Arm: Left arteriovenous f istula tissue for [facility] [id number] 03:13:00 Test Item Value Reference Range Interpretation Comments Tissue culture No growth Specimen isolate (test after 3 days. InformationSp ecimen code = 89694-6) Source: [facility] Site: Arm: Left arteriovenous f istula tissue for [facility] [id number] 03:13:00 Test Item Value Reference Range Interpretation Comments Tissue culture No growth Specimen isolate (test after 3 days. InformationSp ecimen code = 46452-1) Source: [facility] Site: Arm: Left arteriovenous f istula tissue for [facility] [id number] 03:13:00 Test Item Value Reference Range Interpretation Comments Tissue culture No growth Specimen isolate (test after 3 days. InformationSp ecimen code = 01777-1) Source: [facility] Site: Arm: Left arteriovenous f istula [facility], (w Contrast, Strain and 3D if needed)2021-12-18 19:53:26 Test Item Value Reference Interpretation Comments Range Ao Root Diameter 3.28 cm (test code = 8629801638) AoV Area, Vmax (test 3.67 cm2 >=1.5 [Autom ated code = 7937664820) message] The system which generated this result transmitted reference range : >=1.5. The reference range was not used to interpret this result as normal/abnormal . AoV Area, VTI (test 3.72 cm2 code = 9332328702) AoV Mean PG (test 3.84 mmHg code = 5808946024) AoV Peak PG (test 7.04 mmHg code = 4614647341) AoV Vmax (test code 1.37 m/s = 2302916123) AoV VTI (test code = 0.24 m 7316540775) IVS,d (test code = 1.79 cm 0.6-1 A 2354456333) IVS/LVPW,2D (test 1.28 code = 2968582536) Left Atrium 3.69 cm Dimension Anterior (test code = 0621563468) LV,d (test code = 4.62 cm 5749141344) LV EF,2D (test code 66.15 % = 1380281943) LV,s (test code = 3.22 cm 2131741152) LVOT area (test code 3.90 cm2 = 0508574959) LVOT Diam,S (test 2.23 cm code = 1454750862) LVOT Vmax (test code 1.27 m/s = 2152684201) LVOT VTI (test code 0.27 m = 0392036889) LVPWD,d (test code = 1.41 cm 0.60-1.19 A 9212286290) PV Pk Grad (test 5.97 mmHg code = 8330488988) PV VMAX (test code = 1.22 m/s 9512815218) RVOT Vmax (test code 1.17 m/s = 9562369500) MV E A ratio (test 0.80 code = 4931239785) E wave decelartion 154.26 See_Comment A [Automat ed time (test code = message] T he 3234197259) system which generated this result transmitted reference range : 200 msec. The reference range was not used to interpret this result as normal/abnormal . MV Peak A Tiago (test 1.01 m/s code = 4580528905) MV valve area p 1/2 4.92 cm2 method (test code = 8864741426) MV Peak E Tiago (test 0.81 m/s code = 8796072283) MV stenosis pressure 44.73 ms 1/2 time (test code = 2597205061) LVOT stroke volume 1.05 ml (test code = 1189612635) AV LVOT peak 6.26 mmHg gradient (test code = 6985070617) Ascending aorta 3.89 cm (test code = 1843107555) Ao Root Diameter 3.28 cm (test code = 6904139936) LV SYS VOL (test 41.61 ml 21-61 code = 0263310474) LV BRICEÑO VOL (test 98.42 ml 62-150 code = 2475730959) LA area s A4C (test 22.85 cm2 code = 8044089096) LV SV Teich 2D (test 56.81 ml code = 7444529412) LV Vol s Teich PSAX 41.61 ml (test code = 5409873559) RVOT pk grad (test 5.44 mmHg code = 0174606789) AoV Vmn (test code = 0.93 m/s 8725311813) LV FS Teich 2D (test 30.31 code = 6589664743) MV AE ratio (test 1.25 code = 9061589023) LV FS Cube 2D (test 30.31 code = 7180316976) LVOT Vmn (test code 0.82 = 1145342182) Aov area Vmn (test 3.64 cm2 code = 9984492642) LVOT mean grad (test 3.02 mmHg code = 6683301180) MAX Pred HR (test 173.13 code = 3391640913) 85 of MPHR (test 147.16 code = 8206036513) Calc MPHR (test code 173.13 bpm = 9127616378) LV SV Cube 2D (test 65.31 ml code = 5465049096) LV vol d cube 2D 98.73 ml (test code = 0729511313) LV vol s cube 2D 33.42 ml (test code = 7519247967) MV Decel slope (test 5.22 m/s2 code = 9773998666) Pred Exer Dur R1 10.72 (test code = 7665493481) Pred METS R1 (test 10.97 code = 0899831621) LA Vol MOD A4C (test 54.72 ml code = 4301222373) E prime sept (test 0.04 code = 4784477030) E prime lat (test 0.11 code = 8537888475) Velocity Ratio 0.93 m/s (V1/V2) (test code = 4689) EF (test code = 58 % 4998141721) E/A ratio (test code 0.80 = 2799881839) LVOT VTI (CM) (test 27.00 cm code = 0249617081) TAHIRA (test code = Normal left TAHIRA) [...] obtained. Lab Interpretation Abnormal (test code = 65118-5) [facility] [id number] 02:14:00 Test Item Value Reference Range Interpretation Comments Aerobic culture No growth Specimen isolate (test after 2 days. InformationSp ecimen code = 00756-8) Source: [facility] Site: Arm: Left arteriovenous f istula wound [facility] [id number] 02:14:00 Test Item Value Reference Range Interpretation Comments Aerobic culture No growth Specimen isolate (test after 2 days. InformationSp ecimen code = 58925-9) Source: [facility] Site: Arm: Left arteriovenous f istula wound [facility] [id number] 02:14:00 Test Item Value Reference Range Interpretation Comments Aerobic culture No growth Specimen isolate (test after 2 days. InformationSp ecimen code = 69542-7) Source: [facility] Don[facility] Site: Arm: Left arteriovenous f istula wound [facility] [id number] 02:14:00 Test Item Value Reference Range Interpretation Comments Aerobic culture No growth Specimen isolate (test after 2 days. InformationSp ecimen code = 80589-3) Source: [facility] Don[facility] Site: Arm: Left arteriovenous f istula wound [facility] [id number] 02:14:00 Test Item Value Reference Range Interpretation Comments Aerobic culture No growth Specimen isolate (test after 2 days. InformationSp ecimen code = 51969-3) Source: enrico Rowan Site: Arm: Left arteriovenous f istula wound [facility] [id number] 02:14:00 Test Item Value Reference Range Interpretation Comments Aerobic culture No growth Specimen isolate (test after 2 days. InformationSp ecimen code = 53805-0) Source: enrico Rowan Site: Arm: Left arteriovenous f istula wound [facility] [id number] 02:14:00 Test Item Value Reference Range Interpretation Comments Aerobic culture No growth Specimen isolate (test after 2 days. InformationSp ecimen code = 84833-9) Source: enrico Rowan Site: Arm: Left arteriovenous f istula wound [facility] [id number] 02:14:00 Test Item Value Reference Range Interpretation Comments Aerobic culture No growth Specimen isolate (test after 2 days. InformationSp ecimen code = 00540-8) Source: enrico Rowan Site: Arm: Left arteriovenous f istula wound [facility] [id number] 02:14:00 Test Item Value Reference Range Interpretation Comments Aerobic culture No growth Specimen isolate (test after 2 days. InformationSp ecimen code = 34330-7) Source: enrico Rowan Site: Arm: Left arteriovenous f [facility] [id number] 02:14:00 Test Item Value Reference Range Interpretation Comments Aerobic culture No growth Specimen isolate (test after 2 days. InformationSp ecimen code = 42355-8) Source: Robyn Donahue Site: Arm: Left arteriovenous f [facility] [id number] 02:14:00 Test Item Value Reference Range Interpretation Comments Aerobic culture No growth Specimen isolate (test after 2 days. InformationSp ecimen code = 57509-9) Source: Robyn Donahue Site: Arm: Left arteriovenous f [facility] [id number] 02:14:00 Test Item Value Reference Range Interpretation Comments Aerobic culture No growth Specimen isolate (test after 2 days. InformationSp ecimen code = 40534-0) Source: Robyn Donahue Site: Arm: Left arteriovenous f [facility] [id number] 02:14:00 Test Item Value Reference Range Interpretation Comments Aerobic culture No growth Specimen isolate (test after 2 days. InformationSp ecimen code = 71727-2) Source: Robyn Donahue Site: Arm: Left arteriovenous f [facility] [id number] 02:14:00 Test Item Value Reference Range Interpretation Comments Aerobic culture No growth Specimen isolate (test after 2 days. InformationSp ecimen code = 01569-4) Source: Robyn Donahue Site: Arm: Left arteriovenous f [facility] [id number] 02:14:00 Test Item Value Reference Range Interpretation Comments Aerobic culture No growth Specimen isolate (test after 2 days. InformationSp ecimen code = 25946-9) Source: Robyn Donahue Site: Arm: Left arteriovenous f [facility] [id number] 02:14:00 Test Item Value Reference Range Interpretation Comments Aerobic culture No growth Specimen isolate (test after 2 days. InformationSp ecimen code = 23164-8) Source: Robyn Donahue Site: Arm: Left arteriovenous f [facility] [id number] 02:14:00 Test Item Value Reference Range Interpretation Comments Aerobic culture No growth Specimen isolate (test after 2 days. InformationSp ecimen code = 97530-8) Source: Robyn Donahue Site: Arm: Left arteriovenous f [facility]ula [facility] [id number] 02:14:00 Test Item Value Reference Range Interpretation Comments Aerobic culture No growth Specimen isolate (test after 2 days. InformationSp ecimen code = 67319-5) Source: Robyn Donahue Site: Arm: Left arteriovenous f [facility]ula [facility] [id number] 02:14:00 Test Item Value Reference Range Interpretation Comments Aerobic culture No growth Specimen isolate (test after 2 days. InformationSp ecimen code = 12363-4) Source: Robyn Donahue Site: Arm: [facility]oven[facility] f [facility] [id number] 02:14:00 Test Item Value Reference Range Interpretation Comments Aerobic culture No growth Specimen isolate (test after 2 days. [facility] code = 32179-2) Source: Robyn Donahue Site: Arm: Left arteriovenous f istula wound [facility]2022-09-18 22:04:00 Test Item Value Reference Range Interpretation Comments POC glucose (test code = 117 mg/dL 65-99 H Ope rator Name: 74589-6) René Terry ce ID: [id number] able: RN Notified Lab Interpretation (test Abnormal code = 38340-6) [facility]2022-09-18 22:04:00 Test Item Value Reference Range Interpretation Comments POC glucose (test code = 117 mg/dL 65-99 H Ope rator Name: 42437-5) René Terry ce ID: [id number] able: RN Notified Lab Interpretation (test Abnormal code = 00306-1) [facility]2022-09-18 22:04:00 Test Item Value Reference Range Interpretation Comments POC glucose (test code = 117 mg/dL 65-99 H Ope rator Name: 04980-5) René Terry ce ID: [id number] able: RN Notified Lab Interpretation (test Abnormal code = 44938-3) [facility]2022-09-18 22:04:00 Test Item Value Reference Range Interpretation Comments POC glucose (test code = 117 mg/dL 65-99 H Ope rator Name: 34925-5) René Terry ce ID: [id number] able: RN Notified Lab Interpretation (test Abnormal code = 52155-6) [facility]2022-09-18 22:04:00 Test Item Value Reference Range Interpretation Comments POC glucose (test code = 117 mg/dL 65-99 H Ope rator Name: 82727-8) René Terry ce ID: [id number] able: RN Notified Lab Interpretation (test Abnormal code = 93370-8) [facility]2022-09-18 22:04:00 Test Item Value Reference Range Interpretation Comments POC glucose (test code = 117 mg/dL 65-99 H Ope rator Name: 45918-3) René Terry ce ID: [id number] able: RN Notified Lab Interpretation (test Abnormal code = 81131-7) [facility]2022-09-18 22:04:00 Test Item Value Reference Range Interpretation Comments POC glucose (test code = 117 mg/dL 65-99 H Ope rator Name: 65183-0) René Terry ce ID: [id number] able: RN Notified Lab Interpretation (test Abnormal code = 58197-2) [facility]2022-09-18 22:04:00 Test Item Value Reference Range Interpretation Comments POC glucose (test code = 117 mg/dL 65-99 H Ope rator Name: 22752-6) René Terry ce ID: [id number] able: RN Notified Lab Interpretation (test Abnormal code = 69154-5) [facility]2022-09-18 22:04:00 Test Item Value Reference Range Interpretation Comments POC glucose (test code = 117 mg/dL 65-99 H Ope rator Name: 33694-7) René Terry ce ID: [id number] able: RN Notified Lab Interpretation (test Abnormal code = 07488-8) [facility]2022-09-18 22:04:00 Test Item Value Reference Range Interpretation Comments POC glucose (test code = 117 mg/dL 65-99 H Ope rator Name: 38012-9) René Terry ce ID: [id number] able: RN Notified Lab Interpretation (test Abnormal code = 41163-4) [facility]2022-09-18 22:04:00 Test Item Value Reference Range Interpretation Comments POC glucose (test code = 117 mg/dL 65-99 H Ope rator Name: 08284-3) René Terry ce ID: [id number] able: RN Notified Lab Interpretation (test Abnormal code = 70693-8) [facility]2022-09-18 22:04:00 Test Item Value Reference Range Interpretation Comments POC glucose (test code = 117 mg/dL 65-99 H Ope rator Name: 03892-9) René Terry ce ID: [id number] able: RN Notified Lab Interpretation (test Abnormal code = 89228-6) [facility] [id number] 22:04:00 Test Item Value Reference Range Interpretation Comments POC glucose (test code = 117 mg/dL 65-99 H Ope rator Name: 50038-7) René Terry ce ID: [id number] able: RN Notified Lab Interpretation (test Abnormal code = 53434-5) [facility]2022-09-18 22:04:00 Test Item Value Reference Range Interpretation Comments POC glucose (test code = 117 mg/dL 65-99 H Ope rator Name: 00175-0) René Terry ce ID: [id number] able: RN Notified Lab Interpretation (test Abnormal code = 71264-0) [facility]2022-09-18 22:04:00 Test Item Value Reference Range Interpretation Comments POC glucose (test code = 117 mg/dL 65-99 H Ope rator Name: 66897-8) René Terry ce ID: [id number] able: RN Notified Lab Interpretation (test Abnormal code = 24428-6) [facility]2022-09-18 22:04:00 Test Item Value Reference Range Interpretation Comments POC glucose (test code = 117 mg/dL 65-99 H Ope rator Name: 10132-8) René Terry ce ID: [id number] able: RN Notified Lab Interpretation (test Abnormal code = 03625-3) [facility]2022-09-18 22:04:00 Test Item Value Reference Range Interpretation Comments POC glucose (test code = 117 mg/dL 65-99 H Ope rator Name: 09872-7) René Terry ce ID: [id number] able: RN Notified Lab Interpretation (test Abnormal code = 65024-8) [facility]2022-09-18 22:04:00 Test Item Value Reference Range Interpretation Comments POC glucose (test code = 117 mg/dL 65-99 H Ope rator Name: 71220-0) René CalderonGiovanna ce ID: [id number] able: RN Notified Lab Interpretation (test Abnormal code = 25372-8) [facility] [id number] 22:04:00 Test Item Value Reference Range Interpretation Comments POC glucose (test code = 117 mg/dL 65-99 H Ope rator Name: 11457-7) René CalderonGiovanna ce ID: [id number] able: RN Notified Lab Interpretation (test Abnormal code = 64025-0) [facility] [id number] 22:04:00 Test Item Value Reference Range Interpretation Comments POC glucose (test code = 117 mg/dL 65-99 H Ope rator Name: 97570-5) René CalderonGiovanna ce ID: [id number] able: RN Notified Lab Interpretation (test Abnormal code = 89176-8) [facility] [id number] 20:27:00 Test Item Value Reference Range Interpretation Comments Fungus smear No fungi Specimen (test code = observed. [employer] Source: 1449) TissueSpecimen Site: Arm: Left arterioven ous fistula tissue for cult ure [facility] [id number] 20:27:00 Test Item Value Reference Range Interpretation Comments Fungus smear No fungi Specimen (test code = observed. [employer] Source: 1446) TissueSpecimen Site: Arm: Left arterioven ous fistula tissue for cult ure [facility] [id number] 20:27:00 Test Item Value Reference Range Interpretation Comments Fungus smear No fungi Specimen (test code = observed. [employer] Source: 1443) TissueSpecimen Site: Arm: Left arterioven ous fistula tissue for cult ure [facility] [id number] 20:27:00 Test Item Value Reference Range Interpretation Comments Fungus smear No fungi Specimen (test code = observed. [employer] Source: 1443) TissueSpecimen Site: Arm: Left arterioven ous fistula tissue for cult ure [facility] [id number] 20:27:00 Test Item Value Reference Range Interpretation Comments Fungus smear No fungi Specimen (test code = observed. [employer]en Source: 1443) TissueSpecimen Site: Arm: Left arterioven ous fistula tissue for cult ure [facility] [id number] 20:27:00 Test Item Value Reference Range Interpretation Comments Fungus smear No fungi Specimen (test code = observed. [employer] imen Source: 1443) TissueSpecimen Site: Arm: Left arterioven ous fistula tissue for cult ure [facility] [id number] 20:27:00 Test Item Value Reference Range Interpretation Comments Fungus smear No fungi Specimen (test code = observed. [employer] imen Source: 1443) TissueSpecimen Site: Arm: Left arterioven ous fistula tissue for cult ure [facility] [id number] 20:27:00 Test Item Value Reference Range Interpretation Comments Fungus smear No fungi Specimen (test code = observed. [employer] imen Source: 1443) TissueSpecimen Site: Arm: Left arterioven ous fistula tissue for cult ure [facility] [id number] 20:27:00 Test Item Value Reference Range Interpretation Comments Fungus smear No fungi Specimen (test code = observed. [employer] imen Source: 1443) TissueSpecimen Site: Arm: Left arterioven ous fistula tissue for cult ure [facility] [id number] 20:27:00 Test Item Value Reference Range Interpretation Comments Fungus smear No fungi Specimen (test code = observed. [employer] imen Source: 1443) TissueSpecimen Site: Arm: Left arterioven ous fistula tissue for cult ure [facility] [id number] 20:27:00 Test Item Value Reference Range Interpretation Comments Fungus smear No fungi Specimen (test code = observed. Information[employer] imen Source: 1443) TissueSpecimen Site: Arm: Left arterioven ous fistula tissue for cult ure [facility] [id number] 20:27:00 Test Item Value Reference Range Interpretation Comments Fungus smear No fungi Specimen (test code = observed. Information[employer] imen Source: 1443) TissueSpecimen Site: Arm: Left arterioven ous fistula tissue for cult ure [facility] [id number] 20:27:00 Test Item Value Reference Range Interpretation Comments Fungus smear No fungi Specimen (test code = observed. [employer] imen Source: 1443) TissueSpecimen Site: Arm: Left arterioven ous fistula tissue for cult ure [facility] [id number] 20:27:00 Test Item Value Reference Range Interpretation Comments Fungus smear No fungi Specimen (test code = observed. [employer] imen Source: 1443) TissueSpecimen Site: Arm: Left arterioven ous fistula tissue for cult ure [facility] [id number] 20:27:00 Test Item Value Reference Range Interpretation Comments Fungus smear No fungi Specimen (test code = observed. [employer] imen Source: 1443) TissueSpecimen Site: Arm: Left arterioven ous fistula tissue for cult ure [facility] [id number] 20:27:00 Test Item Value Reference Range Interpretation Comments Fungus smear No fungi Specimen (test code = observed. Information[employer] imen Source: 1443) TissueSpecimen Site: Arm: Left arterioven ous fistula tissue for cult ure [facility] [id number] 20:27:00 Test Item Value Reference Range Interpretation Comments Fungus smear No fungi Specimen (test code = observed. InformationSpec imen Source: 1443) TissueSpecimen Site: Arm: Left arterioven ous fistula tissue for cult ure [facility] [id number] 20:27:00 Test Item Value Reference Range Interpretation Comments Fungus smear No fungi Specimen (test code = observed. Information[employer] imen Source: 1443) TissueSpecimen Site: Arm: Left arterioven ous fistula tissue for cult ure [facility] [id number] 20:27:00 Test Item Value Reference Range Interpretation Comments Fungus smear No fungi Specimen (test code = observed. InformationSpec imen Source: 1443) TissueSpecimen Site: Arm: Left arterioven ous fistula tissue for cult ure [facility] [id number] 20:27:00 Test Item Value Reference Range Interpretation Comments Fungus smear No fungi Specimen (test code = observed. InformationSpec imen Source: 1443) TissueSpecimen Site: Arm: Left arterioven ous fistula tissue for cult ure [facility] [id number] 17:50:00 Test Item Value Reference Range Interpretation Comments AFB stain No acid fast Specimen (test code = bacilli (AFB) InformationSpe cimen 676-7) seen. Source: [facility] Site: Arm: Left arteriovenous f istula tissue for cult ure [facility] [id number] 17:50:00 Test Item Value Reference Range Interpretation Comments AFB stain No acid fast Specimen (test code = bacilli (AFB) InformationSpe cimen 676-7) seen. Source: [facility] Site: Arm: Left arteriovenous f istula tissue for cult ure [facility] [id number] 17:50:00 Test Item Value Reference Range Interpretation Comments AFB stain No acid fast Specimen (test code = bacilli (AFB) InformationSpe cimen 676-7) seen. Source: [facility] Site: Arm: Left arteriovenous f istula tissue for cult ure [facility] [id number] 17:50:00 Test Item Value Reference Range Interpretation Comments AFB stain No acid fast Specimen (test code = bacilli (AFB) InformationSpe cimen 676-7) seen. Source: [facility] Site: Arm: Left arteriovenous f istula tissue for cult ure [facility] [id number] 17:50:00 Test Item Value Reference Range Interpretation Comments AFB stain No acid fast Specimen (test code = bacilli (AFB) InformationSpe cimen 676-7) seen. Source: [facility] Site: Arm: Left arteriovenous f istula tissue for cult ure [facility] [id number] 17:50:00 Test Item Value Reference Range Interpretation Comments AFB stain No acid fast Specimen (test code = bacilli (AFB) InformationSpe cimen 676-7) seen. Source: [facility] Site: Arm: Left arteriovenous f istula tissue for cult ure [facility] [id number] 17:50:00 Test Item Value Reference Range Interpretation Comments AFB stain No acid fast Specimen (test code = bacilli (AFB) InformationSpe cimen 676-7) seen. Source: [facility] Site: Arm: Left arteriovenous f istula tissue for cult ure [facility] [id number] 17:50:00 Test Item Value Reference Range Interpretation Comments AFB stain No acid fast Specimen (test code = bacilli (AFB) InformationSpe cimen 676-7) seen. Source: [facility] Site: Arm: Left arteriovenous f istula tissue for cult ure [facility] [id number] 17:50:00 Test Item Value Reference Range Interpretation Comments AFB stain No acid fast Specimen (test code = bacilli (AFB) InformationSpe cimen 676-7) seen. Source: [facility] Site: Arm: Left arteriovenous f istula tissue for cult ure [facility] [id number] 17:50:00 Test Item Value Reference Range Interpretation Comments AFB stain No acid fast Specimen (test code = bacilli (AFB) InformationSpe cimen 676-7) seen. Source: [facility] Site: Arm: Left arteriovenous f istula tissue [facility] cult [facility] [id number] 17:50:00 Test Item Value Reference Range Interpretation Comments AFB stain No acid fast Specimen (test code = bacilli (AFB) InformationSpe cimen 676-7) seen. Source: [facility] Site: Arm: Left arteriovenous f istula tissue for cult ure [facility] [id number] 17:50:00 Test Item Value Reference Range Interpretation Comments AFB stain No acid fast Specimen (test code = bacilli (AFB) InformationSpe cimen 676-7) seen. Source: [facility] Site: Arm: Left arteriovenous f istula tissue for cult ure [facility] [id number] 17:50:00 Test Item Value Reference Range Interpretation Comments AFB stain No acid fast Specimen (test code = bacilli (AFB) InformationSpe cimen 676-7) seen. Source: [facility] Site: Arm: Left arteriovenous f istula tissue for cult ure [facility] [id number] 17:50:00 Test Item Value Reference Range Interpretation Comments AFB stain No acid fast Specimen (test code = bacilli (AFB) InformationSpe cimen 676-7) seen. Source: [facility] Site: Arm: Left arteriovenous f istula tissue [facility] cult ure [facility] [id number] 17:50:00 Test Item Value Reference Range Interpretation Comments AFB stain No acid fast Specimen (test code = bacilli (AFB) InformationSpe cimen 676-7) seen. Source: TissueS pecimen Site: Arm: Left arteriovenous f istula tissue [facility] cult ure [facility] [id number] 17:50:00 Test Item Value Reference Range Interpretation Comments AFB stain No acid fast Specimen (test code = bacilli (AFB) InformationSpe cimen 676-7) seen. Source: TissueS pecimen Site: Arm: Left arteriovenous f istula tissue [facility] cult ure [facility] [id number] 17:50:00 Test Item Value Reference Range Interpretation Comments AFB stain No acid fast Specimen (test code = bacilli (AFB) InformationSpe cimen 676-7) seen. Source: TissueS pecimen Site: Arm: Left arteriovenous f istula tissue [facility] cult [facility] [id number] 17:50:00 Test Item Value Reference Range Interpretation Comments AFB stain No acid fast Specimen (test code = bacilli (AFB) InformationSpe cimen 676-7) seen. Source: TissueS pecimen Site: Arm: Left arteriovenous f istula tissue for cult [place] [facility] [id number] 17:50:00 Test Item Value Reference Range Interpretation Comments AFB stain No acid fast Specimen (test code = bacilli (AFB) InformationSpe cimen 676-7) seen. Source: TissueS pecimen Site: Arm: Left arteriovenous f istula tissue [facility] cult ure [facility] [id number] 17:50:00 Test Item Value Reference Range Interpretation Comments AFB stain No acid fast Specimen (test code = bacilli (AFB) InformationSpe cimen 676-7) seen. Source: TissueS pecimen Site: Arm: Left arteriovenous f istula tissue for jimi motta [facility] [id number] 02:53:00 Test Item Value Reference Range Interpretation Comments Gram stain No WBC's or Specimen isolate (test organisms seen. Information Specimen code = 1469) Source: [place] [facility]imen Site: Arm: Left arteriovenous f istula wound [facility]2022-09-18 02:53:00 Test Item Value Reference Range Interpretation Comments Gram stain No WBC's or Specimen isolate (test organisms seen. Information Specimen code = 1469) Source: [place] [facility]imen Site: Arm: Left arteriovenous f istula wound [facility]2022-09-18 02:53:00 Test Item Value Reference Range Interpretation Comments Gram stain No WBC's or Specimen isolate (test organisms seen. Information Specimen code = 1469) Source: [place] [facility]imen Site: Arm: Left arteriovenous f istula wound [facility]2022-09-18 02:53:00 Test Item Value Reference Range Interpretation Comments Gram stain No WBC's or Specimen isolate (test organisms seen. Information Specimen code = 1469) Source: [place] [facility]imen Site: Arm: Left arteriovenous f istula wound [facility]2022-09-18 02:53:00 Test Item Value Reference Range Interpretation Comments Gram stain No WBC's or Specimen isolate (test organisms seen. Information Specimen code = 1469) Source: [place] [facility] Site: Arm: [facility]2022-09-18 02:53:00 Test Item Value Reference Range Interpretation Comments Gram stain No WBC's or Specimen isolate (test organisms seen. Information Specimen code = 1469) Source: [place] [facility]imen Site: Arm: [facility]2022-09-18 02:53:00 Test Item Value Reference Range Interpretation Comments Gram stain No WBC's or Specimen isolate (test organisms seen. Information Specimen code = 1469) Source: [place] e[facility]imen Site: Arm: Left arteriovenous f istula wound [facility]2022-09-18 02:53:00 Test Item Value Reference Range Interpretation Comments Gram stain No WBC's or Specimen isolate (test organisms seen. Information Specimen code = 1469) Source: [place] [facility]imen Site: Arm: Left arteriovenous f istula wound [facility]2022-09-18 02:53:00 Test Item Value Reference Range Interpretation Comments Gram stain No WBC's or Specimen isolate (test organisms seen. Information Specimen code = 1469) Source: [place] [facility]imen Site: Arm: Left arteriovenous f istula wound [facility]2022-09-18 02:53:00 Test Item Value Reference Range Interpretation Comments Gram stain No WBC's or Specimen isolate (test organisms seen. Information Specimen code = 1469) Source: [employer] e[facility]imen Site: Arm: Left arteriovenous f istula wound [facility]2022-09-18 02:53:00 Test Item Value Reference Range Interpretation Comments Gram stain No WBC's or Specimen isolate (test organisms seen. Information Specimen code = 1469) Source: [place] [facility]imen Site: Arm: Left arteriovenous f istula wound [facility]2022-09-18 02:53:00 Test Item Value Reference Range Interpretation Comments Gram stain No WBC's or Specimen isolate (test organisms seen. Information Specimen code = 1469) Source: [place] [facility]imen Site: Arm: [facility]2022-09-18 02:53:00 Test Item Value Reference Range Interpretation Comments Gram stain No WBC's or Specimen isolate (test organisms seen. Information Specimen code = 1469) Source: [place] e[facility]imen Site: Arm: [facility]2022-09-18 02:53:00 Test Item Value Reference Range Interpretation Comments Gram stain No WBC's or Specimen isolate (test organisms seen. Information Specimen code = 1469) Source: [place] eSpecimen Site: Arm: [facility] [facility]:00 Test Item Value Reference Range Interpretation Comments Gram stain No WBC's or Specimen isolate (test organisms seen. Information Specimen code = 1469) Source: Drainag eSpecimen Site: Arm: [facility]2022-09-18 02:53:00 Test Item Value Reference Range Interpretation Comments Gram stain No WBC's or Specimen isolate (test organisms seen. Information Specimen code = 1469) Source: Drain[place] eSpecimen Site: Arm: [facility] [id number] 02:53:00 Test Item Value Reference Range Interpretation Comments Gram stain No WBC's or Specimen isolate (test organisms seen. Information Specimen code = 1469) Source: Drainag eSpecimen Site: Arm: [facility] [id number] 02:53:00 Test Item Value Reference Range Interpretation Comments Gram stain No WBC's or Specimen isolate (test organisms seen. Information Specimen code = 1469) Source: Drainag eSpecimen Site: Arm: Left arteriovenous f [facility] [id number] 02:53:00 Test Item Value Reference Range Interpretation Comments Gram stain No WBC's or Specimen isolate (test organisms seen. Information Specimen code = 1469) Source: Drain[place] eSpecimen Site: Arm: Left arteriovenous f [facility]ula wound [facility] [id number] 02:53:00 Test Item Value Reference Range Interpretation Comments Gram stain No WBC's or Specimen isolate (test organisms seen. Information Specimen code = 1469) Source: Drainag eSpecimen Site: Arm: Left arteriovenous f [facility]ula wound [facility] RBC, 1 [id number] 00:49:00 Test Item Value Reference Range Interpretation Comments Product name (test Red Blood Cells code = 25) -1, Leukored Unit number (test [id number] code = 8401853) Product code (test K8311L50 code = 3092) Dispense status Transfused (test [...] PER TAHIRA) /OR BLOOD REQUEST. [facility]assi Red [facility] RBC, 1 [id number] 00:49:00 Test Item Value Reference Range Interpretation Comments Product name (test Red Blood Cells code = 25) -1, Leukored Unit number (test [id number] code = 0311174) Product code (test N2849H98 code = 3092) Dispense status Transfused (test [...] PER TAHIRA) /OR BLOOD REQUEST. Kassi [facility]il [facility], 1 [id number] 00:49:00 Test Item Value Reference Range Interpretation Comments Product name (test Red Blood Cells code = 25) -1, Leukored Unit number (test [id number] code = 7626215) Product code (test B2156H56 code = 3092) Dispense status Transfused (test [...] PER TAHIRA) /OR BLOOD REQUEST. [facility]i [facility]il [facility], 1 [id number] 00:49:00 Test Item Value Reference Range Interpretation Comments Product name (test Red Blood Cells code = 25) -1, Leukored Unit number (test [id number] code = 7366049) Product code (test I5425B44 code = 3092) Dispense status Transfused (test [...] PER TAHIRA) /OR BLOOD REQUEST. K[facility]i [facility]il [facility], 1 [id number] 00:49:00 Test Item Value Reference Range Interpretation Comments Product name (test Red Blood Cells code = 25) -1, Leukored Unit number (test [id number] code = 1443003) Product code (test E4248P66 code = 3092) Dispense status Transfused (test [...] 09:50 PER TAHIRA) /OR BLOOD REQUEST. [facility], 1 [id number] 00:49:00 Test Item Value Reference Range Interpretation Comments Product name (test Red Blood Cells code = 25) -1, Leukored Unit number (test [id number] code = 2715002) Product code (test G3538E70 code = 3092) Dispense status Transfused (test [...] 09:50 PER TAHIRA) /OR BLOOD REQUEST. [facility], 1 [id number] 00:49:00 Test Item Value Reference Range Interpretation Comments Product name (test Red Blood Cells code = 25) -1, Leukored Unit number (test [id number] code = 2291144) Product code (test L3429Z22 code = 3092) Dispense status Transfused (test code = 24) Blood expiration date (test code = 302) Blood type code 6200 (test code = 308) Blood type (test A POSITIVE Returned fr om code = 1314) OR in cooler, Temp:4.0 C, Hemotemp and Visual Checksacceptabl e. 12/15/21 15:06 Kassi Myalil Compatibility (test Compatible code = 6400) THAIRA (test code = 12/15/21 09:50 PER TAHIRA) /OR BLOOD REQUEST. [facility]i [facility], 1 [id number] 00:49:00 Test Item Value Reference Range Interpretation Comments Product name (test Red Blood Cells code = 25) -1, Leukored Unit number (test [id number] code = 8942537) Product code (test V2065H90 code = 3092) Dispense status Transfused (test [...] PER TAHIRA) /OR BLOOD REQUEST. Kassi [facility]il [facility], 1 [id number] 00:49:00 Test Item Value Reference Range Interpretation Comments Product name (test Red Blood Cells code = 25) -1, Leukored Unit number (test [id number] code = 2384023) Product code (test Y5592A84 code = 3092) Dispense status Transfused (test [...] PER TAHIRA) /OR BLOOD REQUEST. [facility]i [facility], 1 [id number] 00:49:00 Test Item Value Reference Range Interpretation Comments Product name (test Red Blood Cells code = 25) -1, Leukored Unit number (test [id number] code = 6294213) Product code (test P4051S92 code = 3092) Dispense status Transfused (test [...] PER TAHIRA) /OR BLOOD REQUEST. Kassi Red [facility], 1 [id number] 00:49:00 Test Item Value Reference Range Interpretation Comments Product name (test Red Blood Cells code = 25) -1, Leukored Unit number (test [id number] code = 1945018) Product code (test G1821O41 code = 3092) Dispense status (test Transfused [...] 12/15/21 09:50 PER /OR BLOOD REQUEST. Kassi [facility]alil [facility], 1 [id number] 00:49:00 Test Item Value Reference Range Interpretation Comments Product name (test Red Blood Cells code = 25) -1, Leukored Unit number (test [id number] code = 5705847) Product code (test Q7424D92 code = 3092) Dispense status (test Transfused [...] 09:50 PER /OR BLOOD REQUEST. [facility]i [facility], 1 [id number] 00:49:00 Test Item Value Reference Range Interpretation Comments Product name (test Red Blood Cells code = 25) -1, Leukored Unit number (test [id number] code = 0584375) Product code (test J4797B03 code = 3092) Dispense status Transfused (test [...] PER TAHIRA) /OR BLOOD REQUEST. K[facility]i [facility]il [facility], 1 [id number] 00:49:00 Test Item Value Reference Range Interpretation Comments Product name (test Red Blood Cells code = 25) -1, Leukored Unit number (test [id number] code = 9588573) Product code (test P6498A00 code = 3092) Dispense status Transfused (test [...] PER TAHIRA) /OR BLOOD REQUEST. [facility]i [facility], 1 [id number] 00:49:00 Test Item Value Reference Range Interpretation Comments Product name (test Red Blood Cells code = 25) -1, Leukored Unit number (test [id number] code = 3116298) Product code (test G5668X60 code = 3092) Dispense status Transfused (test [...] PER TAHIRA) /OR BLOOD REQUEST. [facility]i [facility]il [facility], 1 [id number] 00:49:00 Test Item Value Reference Range Interpretation Comments Product name (test Red Blood Cells code = 25) -1, Leukored Unit number (test [id number] code = 2218933) Product code (test K5502O16 code = 3092) Dispense status Transfused (test [...] PER TAHIRA) /OR BLOOD REQUEST. K[facility]i [facility]il [facility], 1 [id number] 00:49:00 Test Item Value Reference Range Interpretation Comments Product name (test Red Blood Cells code = 25) -1, Leukored Unit number (test [id number] code = 9578755) Product code (test Z6404V04 code = 3092) Dispense status Transfused (test [...] PER TAHIRA) /OR BLOOD REQUEST. K[facility]i [facility]il [facility], 1 [id number] 00:49:00 Test Item Value Reference Range Interpretation Comments Product name (test Red Blood Cells code = 25) -1, Leukored Unit number (test [id number] code = 5575587) Product code (test H6048O77 code = 3092) Dispense status Transfused (test [...] PER TAHIRA) /OR BLOOD REQUEST. [facility]i [facility]il [facility], 1 [id number] 00:49:00 Test Item Value Reference Range Interpretation Comments Product name (test Red Blood Cells code = 25) -1, Leukored Unit number (test [id number] code = 0581561) Product code (test O4804M91 code = 3092) Dispense status Transfused (test [...] PER TAHIRA) /OR BLOOD REQUEST. [facility]i [facility]il [facility], 1 [id number] 00:49:00 Test Item Value Reference Range Interpretation Comments Product name (test Red Blood Cells code = 25) -1, Leukored Unit number (test [id number] code = 2047865) Product code (test B5298U88 code = 3092) Dispense status Transfused (test [...] 09:50 PER TAHIRA) /OR BLOOD REQUEST. [facility]aleArterial blood gas, [id number] 19:45:00 Test Item Value Reference Range Interpretation Comments pH, arterial (test code 7.38 7.35-7.45 = 2744-1) pCO2, arterial (test 39 See_Comment [Autom ated message] code = 2019-8) The system [employer] generated this result transmitted ref erence range: 35 - 45 mmHg. The reference r lorena was not used to interpret this result as normal/abnor mal. pO2, arterial (test code 405 See_Comment H [A utomated message] = 2753-7) The system [employer] generated this result transmitted ref erence range: 80 - 90 mmHg. The reference r lorena was not used to interpret this result as normal/abnor mal. Temperature, Celsius 36.0 Degrees C (test code = 8310-5) O2 saturation, arterial 100 % 95-100 (test code = 2708-6) pH, arterial corrected 7.40 (test code = 26095-9) pCO2, arterial corrected 37 mmHg (test code = 25070-3) pO2, arterial corrected 400 mmHg (test code = 87165-0) Base excess, arterial -2 See_Comment [Auto mated message] (test code = 1925-7) The [facility] tem which generated this result transmitted ref erence range: -2 - 2 m Eq/L. The reference r lorena was not used to interpret this result as normal/abnor mal. Lab Interpretation (test Abnormal code = 00980-4) [facility]aleGlucose level, [id number] 19:45:00 Test Item Value Reference Range Interpretation Comments Glucose, syringe (test code = 125 mg/dL 65-99 H 2345-7) Lab Interpretation (test code = Abnormal 25376-1) [facility]aleHemoglobin, [id number] 19:45:00 Test Item Value Reference Range Interpretation Comments Hemoglobin, syringe (test 7.0 g/dL 14.0-18.0 LL Fi nal results code = 718-7) called to and read back by Autumn Perez RN. 12/15/2021 14:4 5 HE Lab Interpretation (test Abnormal code = 84657-3) [facility]valeIonized calcium, [id number] 19:45:00 Test Item Value Reference Range Interpretation Comments Ionized calcium, arterial (test 1.10 mmol/L 1.11-1.32 L code = 37363-5) Lab Interpretation (test code = Abnormal 28461-6) [facility]alePotassium, [id number] 19:45:00 Test Item Value Reference Range Interpretation Comments Potassium, syringe 4.8 See_Comment [Automat ed message] The (test code = 2007) system [facility] generated this result tra nsmitted reference range : 3.5 - 5.0 mEq/L. The refe rence range was not used to interpret this result as normal/abnormal . [facility], [id number] 19:45:00 Test Item Value Reference Range Interpretation Comments Sodium, syringe (test 135 See_Comment [Auto mated message] The code = 2947-0) system which generated this result tra nsmitted reference range : 125 - 148 mEq/L. The refe rence range was not used to interpret this result as normal/abnormal . [facility]aleArterial blood gas, [id number] 19:45:00 Test Item Value Reference Range Interpretation Comments pH, arterial (test code 7.38 7.35-7.45 = 2744-1) pCO2, arterial (test 39 See_Comment [Autom ated message] code = 2019-8) The [facility] generated this result transmitted ref erence range: 35 - 45 mmHg. The reference r lorena was not used to interpret this result as normal/abnor mal. pO2, arterial (test code 405 See_Comment H [A utomated message] = 9923-7) The system whic h generated this result transmitted ref erence range: 80 - 90 mmHg. The reference r lorena was not used to interpret this result as normal/abnor mal. Temperature, Celsius 36.0 Degrees C (test code = 8310-5) O2 saturation, arterial 100 % 95-100 (test code = 2708-6) pH, arterial corrected 7.40 (test code = 03109-4) pCO2, arterial corrected 37 mmHg (test code = 63678-0) pO2, arterial corrected 400 mmHg (test code = 79844-9) Base excess, arterial -2 See_Comment [Auto mated message] (test code = 110-7) The sys tem which generated this result transmitted ref erence range: -2 - 2 m Eq/L. The reference r lorena was not used to interpret this result as normal/abnor mal. Lab Interpretation (test Abnormal code = 73732-6) [facility] level, [id number] 19:45:00 Test Item Value Reference Range Interpretation Comments Glucose, syringe (test code = 125 mg/dL 65-99 H 2345-7) Lab Interpretation (test code = Abnormal 56899-6) [facility] HospitalHemoglobin, [id number] 19:45:00 Test Item Value Reference Range Interpretation Comments Hemoglobin, syringe (test 7.0 g/dL 14.0-18.0 LL Fi nal results code = 718-7) called to and read back by Autumn Perez RN. 12/15/2021 14:4 5 HE Lab Interpretation (test Abnormal code = 65504-4) [facility] calcium, [id number] 19:45:00 Test Item Value Reference Range Interpretation Comments Ionized calcium, arterial (test 1.10 mmol/L 1.11-1.32 L code = 60567-8) Lab Interpretation (test code = Abnormal 87371-5) [facility]Pot[facility], [id number] 19:45:00 Test Item Value Reference Range Interpretation Comments Potassium, syringe 4.8 See_Comment [Automat ed message] The (test code = 2007) system wh ich generated this result tra nsmitted reference range : 3.5 - 5.0 mEq/L. The refe rence range was not used to interpret this result as normal/abnormal . [facility] level, [id number] 19:45:00 Test Item Value Reference Range Interpretation Comments Sodium, syringe (test 135 See_Comment [Auto mated message] The code = 2947-0) system which generated this result tra nsmitted reference range : 125 - 148 mEq/L. The refe rence range was not used to interpret this result as normal/abnormal . [facility]aleArterial blood gas, [id number] 19:45:00 Test Item Value Reference Range Interpretation [...] [A utomated message] = 2703-7) The system [employer] generated this result transmitted ref erence range: 80 - 90 mmHg. The reference r lorena was not used to interpret this result as normal/abnor mal. Temperature, Celsius 36.0 Degrees C (test code = 8310-5) O2 saturation, arterial 100 % 95-100 (test code = 2708-6) pH, arterial corrected 7.40 (test code = 77827-0) pCO2, arterial corrected 37 mmHg (test code = 08499-4) pO2, arterial corrected 400 mmHg (test code = 80767-7) Base excess, arterial -2 See_Comment [Auto mated message] (test code = 1925-7) The [facility] tem which generated this result transmitted ref erence range: -2 - 2 m Eq/L. The reference r lorena was not used to interpret this result as normal/abnor mal. Lab Interpretation (test Abnormal code = 06686-9) [facility]aleGlucose level, [id number] 19:45:00 Test Item Value Reference Range Interpretation Comments Glucose, syringe (test code = 125 mg/dL 65-99 H 2345-7) Lab Interpretation (test code = Abnormal 46778-6) [facility]aleHemoglobin, [id number] 19:45:00 Test Item Value Reference Range Interpretation Comments Hemoglobin, syringe (test 7.0 g/dL 14.0-18.0 LL nal results code = 718-7) called to and read back by Autumn Perez RN. 12/15/2021 14:4 5 HE Lab Interpretation (test Abnormal code = 93719-8) [facility]aleIonized calcium, [id number] 19:45:00 Test Item Value Reference Range Interpretation Comments Ionized calcium, arterial (test 1.10 mmol/L 1.11-1.32 L code = 44602-8) Lab Interpretation (test code = Abnormal 16562-3) [facility]alePotassium, [id number] 19:45:00 Test Item Value Reference Range Interpretation Comments Potassium, syringe 4.8 See_Comment [Automat ed message] The (test code = 2007) system [facility] generated this result tra nsmitted reference range : 3.5 - 5.0 mEq/L. The refe rence range was not used to interpret this result as normal/abnormal . [facility], [id number] 19:45:00 Test Item Value Reference Range Interpretation Comments Sodium, syringe (test 135 See_Comment [Auto mated message] The code = 2947-0) system which generated this result tra nsmitted reference range : 125 - 148 mEq/L. The refe rence range was not used to interpret this result as normal/abnormal . [facility]aleArterial blood gas, [id number] 19:45:00 Test Item Value Reference Range Interpretation Comments pH, arterial (test code 7.38 7.35-7.45 = 2744-1) pCO2, arterial (test 39 See_Comment [Autom ated message] code = 2019-8) The system [facility] generated this result transmitted ref erence range: 35 - 45 mmHg. The reference r lorena was not used to interpret this result as normal/abnor mal. pO2, arterial (test code 405 See_Comment H [A utomated message] = 2703-7) The system [facility] generated this result transmitted ref erence range: 80 - 90 mmHg. The reference r lorena was not used to interpret this result as normal/abnor mal. Temperature, Celsius 36.0 Degrees C (test code = 8310-5) O2 saturation, arterial 100 % 95-100 (test code = 2708-6) pH, arterial corrected 7.40 (test code = 63372-3) pCO2, arterial corrected 37 mmHg (test code = 69981-5) pO2, arterial corrected 400 mmHg (test code = 38475-8) Base excess, arterial -2 See_Comment [Auto mated message] (test code = 1925-7) The s tem which generated this result transmitted ref erence range: -2 - 2 m Eq/L. The reference r lorena was not used to interpret this result as normal/abnor mal. Lab Interpretation (test Abnormal code = 85392-4) [facility]aleGlucose level, [id number] 19:45:00 Test Item Value Reference Range Interpretation Comments Glucose, syringe (test code = 125 mg/dL 65-99 H 2345-7) Lab Interpretation (test code = Abnormal 30868-8) [facility]aleHemoglobin, [id number] 19:45:00 Test Item Value Reference Range Interpretation Comments Hemoglobin, syringe (test 7.0 g/dL 14.0-18.0 LL Fi nal results code = 718-7) called to and read back by Autumn Perez RN. 12/15/2021 14:4 5 HE Lab Interpretation (test Abnormal code = 45439-6) [facility]aleIonized calcium, [id number] 19:45:00 Test Item Value Reference Range Interpretation Comments Ionized calcium, arterial (test 1.10 mmol/L 1.11-1.32 L code = 50603-8) Lab Interpretation (test code = Abnormal 09869-3) [facility]alePotassium, [id number] 19:45:00 Test Item Value Reference Range Interpretation Comments Potassium, syringe 4.8 See_Comment [Automat ed message] The (test code = 2007) system wh ich generated this result tra nsmitted reference range : 3.5 - 5.0 mEq/L. The refe rence range was not used to interpret this result as normal/abnormal . [facility], [id number] 19:45:00 Test Item Value Reference Range Interpretation Comments Sodium, syringe (test 135 See_Comment [Auto mated message] The code = 2947-0) system which generated this result tra nsmitted reference range : 125 - 148 mEq/L. The refe rence range was not used to interpret this result as normal/abnormal . [facility], [id number] 19:45:00 Test Item Value Reference Range Interpretation [...] [A utomated message] = 2703-7) The system [employer] generated this result transmitted ref erence range: 80 - 90 mmHg. The reference r lorena was not used to interpret this result as normal/abnor mal. Temperature, Celsius 36.0 Degrees C (test code = 8310-5) O2 saturation, arterial 100 % 95-100 (test code = 2708-6) pH, arterial corrected 7.40 (test code = 26342-3) pCO2, arterial corrected 37 mmHg (test code = 03964-2) pO2, arterial corrected 400 mmHg (test code = 65820-4) Base excess, arterial -2 See_Comment [Auto mated message] (test code = 1925-7) The [facility] tem which generated this result transmitted ref erence range: -2 - 2 m Eq/L. The reference r lorena was not used to interpret this result as normal/abnor mal. Lab Interpretation (test Abnormal code = 37653-2) [facility] HospitalGlucose level, [id number] 19:45:00 Test Item Value Reference Range Interpretation Comments Glucose, syringe (test code = 125 mg/dL 65-99 H 2345-7) Lab Interpretation (test code = Abnormal 58067-1) [facility] HospitalHemoglobin, [id number] 19:45:00 Test Item Value Reference Range Interpretation Comments Hemoglobin, syringe (test 7.0 g/dL 14.0-18.0 LL Fi nal results code = 718-7) called to and read back by Autumn Perez RN. 12/15/2021 14:4 5 HE Lab Interpretation (test Abnormal code = 18665-4) [facility] HospitalIonized calcium, [id number] 19:45:00 Test Item Value Reference Range Interpretation Comments Ionized calcium, arterial (test 1.10 mmol/L 1.11-1.32 L code = 73836-6) Lab Interpretation (test code = Abnormal 83693-2) [facility]alePotassium, [id number] 19:45:00 Test Item Value Reference Range Interpretation Comments Potassium, syringe 4.8 See_Comment [Automat ed message] The (test code = 2007) system [facility] generated this result tra nsmitted reference range : 3.5 - 5.0 mEq/L. The refe rence range was not used to interpret this result as normal/abnormal . [facility], [id number] 19:45:00 Test Item Value Reference Range Interpretation Comments Sodium, syringe (test 135 See_Comment [Auto mated message] The code = 2947-0) system which generated this result tra nsmitted reference range : 125 - 148 mEq/L. The refe rence range was not used to interpret this result as normal/abnormal . [facility]aleArterial blood gas, [id number] 19:45:00 Test Item Value Reference Range Interpretation Comments pH, arterial (test code 7.38 7.35-7.45 = 2744-1) pCO2, arterial (test 39 See_Comment [Autom ated message] code = 2019-8) The [facility] generated this result transmitted ref erence range: 35 - 45 mmHg. The reference r lorena was not used to interpret this result as normal/abnor mal. pO2, arterial (test code 405 See_Comment H [A utomated message] = 5213-7) The system [facility] generated this result transmitted ref erence range: 80 - 90 mmHg. The reference r lorena was not used to interpret this result as normal/abnor mal. Temperature, Celsius 36.0 Degrees C (test code = 8310-5) O2 saturation, arterial 100 % 95-100 (test code = 2708-6) pH, arterial corrected 7.40 (test code = 11655-9) pCO2, arterial corrected 37 mmHg (test code = 19971-8) pO2, arterial corrected 400 mmHg (test code = 35483-5) Base excess, arterial -2 See_Comment [Auto mated message] (test code = 1925-7) The s tem which generated this result transmitted ref erence range: -2 - 2 m Eq/L. The reference r lorena was not used to interpret this result as normal/abnor mal. Lab Interpretation (test Abnormal code = 60057-7) [facility], [id number] 19:45:00 Test Item Value Reference Range Interpretation Comments Glucose, syringe (test code = 125 mg/dL 65-99 H 2345-7) Lab Interpretation (test code = Abnormal 30251-9) [facility]aleHemoglobin, [id number] 19:45:00 Test Item Value Reference Range Interpretation Comments Hemoglobin, syringe (test 7.0 g/dL 14.0-18.0 LL Fi nal results code = 718-7) called to and read back by Autumn Perez RN. 12/15/2021 14:4 5 HE Lab Interpretation (test Abnormal code = 60076-3) [facility]aleIonized calcium, [id number] 19:45:00 Test Item Value Reference Range Interpretation Comments Ionized calcium, arterial (test 1.10 mmol/L 1.11-1.32 L code = 58131-6) Lab Interpretation (test code = Abnormal 50366-1) [facility]alePotassium, [id number] 19:45:00 Test Item Value Reference Range Interpretation Comments Potassium, syringe 4.8 See_Comment [Automat ed message] The (test code = 2008) system wh ich generated this result tra nsmitted reference range : 3.5 - 5.0 mEq/L. The refe rence range was not used to interpret this result as normal/abnormal . [facility] [id number] 19:45:00 Test Item Value Reference Range Interpretation Comments Sodium, syringe (test 135 See_Comment [Auto mated message] The code = 2947-0) system which generated this result tra nsmitted reference range : 125 - 148 mEq/L. The refe rence range was not used to interpret this result as normal/abnormal . [facility]aleArterial blood gas, [id number] 19:45:00 Test Item Value Reference Range Interpretation [...] 405 See_Comment H [A utomated message] = 7083-7) The system whic h generated this result transmitted ref erence range: 80 - 90 mmHg. The reference r lorena was not used to interpret this result as normal/abnor mal. Temperature, Celsius 36.0 Degrees C (test code = 8310-5) O2 saturation, arterial 100 % 95-100 (test code = 2708-6) pH, arterial corrected 7.40 (test code = 72122-6) pCO2, arterial corrected 37 mmHg (test code = 22755-7) pO2, arterial corrected 400 mmHg (test code = 15947-3) Base excess, arterial -2 See_Comment [Auto mated message] (test code = 1925-7) The s tem which generated this result transmitted ref erence range: -2 - 2 m Eq/L. The reference r lorena was not used to interpret this result as normal/abnor mal. Lab Interpretation (test Abnormal code = 72751-6) [facility]ucose level, [id number] 19:45:00 Test Item Value Reference Range Interpretation Comments Glucose, syringe (test code = 125 mg/dL 65-99 H 2345-7) Lab Interpretation (test code = Abnormal 58737-5) [facility]aleHemoglobin, [id number] 19:45:00 Test Item Value Reference Range Interpretation Comments Hemoglobin, syringe (test 7.0 g/dL 14.0-18.0 LL nal results code = 718-7) called to and read back by Autumn Perez RN. 12/15/2021 14:4 5 HE Lab Interpretation (test Abnormal code = 70219-9) [facility]aleIonized calcium, [id number] 19:45:00 Test Item Value Reference Range Interpretation Comments Ionized calcium, arterial (test 1.10 mmol/L 1.11-1.32 L code = 95085-9) Lab Interpretation (test code = Abnormal 96652-7) [facility]assium, [id number] 19:45:00 Test Item Value Reference Range Interpretation Comments Potassium, syringe 4.8 See_Comment [Automat ed message] The (test code = 2007) [facility] generated this result tra nsmitted reference range : 3.5 - 5.0 mEq/L. The refe rence range was not used to interpret this result as normal/abnormal . [facility], [id number] 19:45:00 Test Item Value Reference Range Interpretation Comments Sodium, syringe (test 135 See_Comment [Auto mated message] The code = 2947-0) system which generated this result tra nsmitted reference range : 125 - 148 mEq/L. The refe rence range was not used to interpret this result as normal/abnormal . [facility]aleArterial blood gas, [id number] 19:45:00 Test Item Value Reference Range Interpretation Comments pH, arterial (test code 7.38 7.35-7.45 = 2744-1) pCO2, arterial (test 39 See_Comment [Autom ated message] code = 2019-8) The [facility] generated this result transmitted ref erence range: 35 - 45 mmHg. The reference r lorena was not used to interpret this result as normal/abnor mal. pO2, arterial (test code 405 See_Comment H [A utomated message] = 2703-7) The system [facility] h generated this result transmitted ref erence range: 80 - 90 mmHg. The reference r lorena was not used to interpret this result as normal/abnor mal. Temperature, Celsius 36.0 Degrees C (test code = 8310-5) O2 saturation, arterial 100 % 95-100 (test code = 2708-6) pH, arterial corrected 7.40 (test code = 42163-4) pCO2, arterial corrected 37 mmHg (test code = 02070-5) pO2, arterial corrected 400 mmHg (test code = 57284-4) Base excess, arterial -2 See_Comment [Auto mated message] (test code = 1925-7) The [facility] tem which generated this result transmitted ref erence range: -2 - 2 m Eq/L. The reference r lorena was not used to interpret this result as normal/abnor mal. Lab Interpretation (test Abnormal code = 54605-7) [facility]Glucose level, [id number] 19:45:00 Test Item Value Reference Range Interpretation Comments Glucose, syringe (test code = 125 mg/dL 65-99 H 2345-7) Lab Interpretation (test code = Abnormal 83948-6) [facility]Hemoglobin, [id number] 19:45:00 Test Item Value Reference Range Interpretation Comments Hemoglobin, syringe (test 7.0 g/dL 14.0-18.0 LL Fi nal results code = 718-7) called to and read back by Autumn Perez RN. 12/15/2021 14:4 5 HE Lab Interpretation (test Abnormal code = 38324-2) [facility]aleIonized calcium, [id number] 19:45:00 Test Item Value Reference Range Interpretation Comments Ionized calcium, arterial (test 1.10 mmol/L 1.11-1.32 L code = 80958-3) Lab Interpretation (test code = Abnormal 99083-0) [facility]Potassium, [id number] 19:45:00 Test Item Value Reference Range Interpretation Comments Potassium, syringe 4.8 See_Comment [Automat ed message] The (test code = 2007) [facility] generated this result tra nsmitted reference range : 3.5 - 5.0 mEq/L. The refe rence range was not used to interpret this result as normal/abnormal . [facility], [id number] 19:45:00 Test Item Value Reference Range Interpretation Comments Sodium, syringe (test 135 See_Comment [Auto mated message] The code = 2947-0) system which generated this result tra nsmitted reference range : 125 - 148 mEq/L. The refe rence range was not used to interpret this result as normal/abnormal . [facility]aleArterial blood gas, [id number] 19:45:00 Test Item Value Reference Range Interpretation Comments pH, arterial (test code 7.38 7.35-7.45 = 2744-1) pCO2, arterial (test 39 See_Comment [Autom ated message] code = 2019-8) The [facility] generated this result transmitted ref erence range: 35 - 45 mmHg. The reference r lorena was not used to interpret this result as normal/abnor mal. pO2, arterial (test code 405 See_Comment H [A utomated message] = 1293-7) The system whic h generated this result transmitted ref erence range: 80 - 90 mmHg. The reference r lorena was not used to interpret this result as normal/abnor mal. Temperature, Celsius 36.0 Degrees C (test code = 8310-5) O2 saturation, arterial 100 % 95-100 (test code = 2708-6) pH, arterial corrected 7.40 (test code = 72345-4) pCO2, arterial corrected 37 mmHg (test code = 93247-0) pO2, arterial corrected 400 mmHg (test code = 19487-5) Base excess, arterial -2 See_Comment [Auto mated message] (test code = 0935-7) The sys tem which generated this result transmitted ref erence range: -2 - 2 m Eq/L. The reference r lorena was not used to interpret this result as normal/abnor mal. Lab Interpretation (test Abnormal code = 80513-1) [facility]Glucose level, [id number] 19:45:00 Test Item Value Reference Range Interpretation Comments Glucose, syringe (test code = 125 mg/dL 65-99 H 2345-7) Lab Interpretation (test code = Abnormal 47277-4) [facility]aleHemoglobin, [id number] 19:45:00 Test Item Value Reference Range Interpretation Comments Hemoglobin, syringe (test 7.0 g/dL 14.0-18.0 LL Fi nal results code = 718-7) called to and read back by Autumn Perez RN. 12/15/2021 14:4 5 HE Lab Interpretation (test Abnormal code = 45958-8) [facility]aleIonized calcium, [id number] 19:45:00 Test Item Value Reference Range Interpretation Comments Ionized calcium, arterial (test 1.10 mmol/L 1.11-1.32 L code = 67878-6) Lab Interpretation (test code = Abnormal 71222-6) [facility]Potassium, [id number] 19:45:00 Test Item Value Reference Range Interpretation Comments Potassium, syringe 4.8 See_Comment [Automat ed message] The (test code = 2007) system wh ich generated this result tra nsmitted reference range : 3.5 - 5.0 mEq/L. The refe rence range was not used to interpret this result as normal/abnormal . [facility], [id number] 19:45:00 Test Item Value Reference Range Interpretation Comments Sodium, syringe (test 135 See_Comment [Auto mated message] The code = 2947-0) system which generated this result tra nsmitted reference range : 125 - 148 mEq/L. The refe rence range was not used to interpret this result as normal/abnormal . [facility]aleArterial blood gas, [id number] 19:45:00 Test Item Value Reference Range Interpretation [...] [A utomated message] = 2703-7) The system [employer] h generated this result transmitted ref erence range: 80 - 90 mmHg. The reference r lorena was not used to interpret this result as normal/abnor mal. Temperature, Celsius 36.0 Degrees C (test code = 8310-5) O2 saturation, arterial 100 % 95-100 (test code = 2708-6) pH, arterial corrected 7.40 (test code = 93042-4) pCO2, arterial corrected 37 mmHg (test code = 92402-6) pO2, arterial corrected 400 mmHg (test code = 50552-9) Base excess, arterial -2 See_Comment [Auto mated message] (test code = 1925-7) The [facility] tem which generated this result transmitted ref erence range: -2 - 2 m Eq/L. The reference r lorena was not used to interpret this result as normal/abnor mal. Lab Interpretation (test Abnormal code = 15583-6) [facility]Glucose level, [id number] 19:45:00 Test Item Value Reference Range Interpretation Comments Glucose, syringe (test code = 125 mg/dL 65-99 H 2345-7) Lab Interpretation (test code = Abnormal 23450-5) [facility]aleHemoglobin, [id number] 19:45:00 Test Item Value Reference Range Interpretation Comments Hemoglobin, syringe (test 7.0 g/dL 14.0-18.0 LL nal results code = 718-7) called to and read back by Autumn Perez RN. 12/15/2021 14:4 5 HE Lab Interpretation (test Abnormal code = 28764-3) [facility]aleIonized calcium, [id number] 19:45:00 Test Item Value Reference Range Interpretation Comments Ionized calcium, arterial (test 1.10 mmol/L 1.11-1.32 L code = 56166-1) Lab Interpretation (test code = Abnormal 97481-2) [facility]alePotassium, [id number] 19:45:00 Test Item Value Reference Range Interpretation Comments Potassium, syringe 4.8 See_Comment [Automat ed message] The (test code = 2007) [facility] generated this result tra nsmitted reference range : 3.5 - 5.0 mEq/L. The refe rence range was not used to interpret this result as normal/abnormal . [facility], [id number] 19:45:00 Test Item Value Reference Range Interpretation Comments Sodium, syringe (test 135 See_Comment [Auto mated message] The code = 2947-0) system which generated this result tra nsmitted reference range : 125 - 148 mEq/L. The refe rence range was not used to interpret this result as normal/abnormal . [facility]aleArterial blood gas, [id number] 19:45:00 Test Item Value Reference Range Interpretation Comments pH, arterial (test code 7.35-7.45 = 2744-1) pCO2, arterial (test See_Comment [Autom ated message] code = 2019-8) The [facility] generated this result transmitted ref erence range: 35 - 45 mmHg. The reference r lorena was not used to interpret this result as normal/abnor mal. pO2, arterial (test code See_Comment H [A utomated message] = 2703-7) The system [facility] h generated this result transmitted ref erence range: 80 - 90 mmHg. The reference r lorena was not used to interpret this result as normal/abnor mal. Temperature, Celsius Degrees C (test code = 8310-5) O2 saturation, arterial 100 % 95-100 (test code = 2708-6) pH, arterial corrected (test code = 91248-0) pCO2, arterial corrected mmHg (test code = 01668-3) pO2, arterial corrected mmHg (test code = 14259-6) Base excess, arterial See_Comment [Auto mated message] (test code = 1925-7) The [facility] tem which generated this result transmitted ref erence range: -2 - 2 m Eq/L. The reference r lorena was not used to interpret this result as normal/abnor mal. Lab Interpretation (test Abnormal code = 96184-1) [facility]aleGlucose level, [id number] 19:45:00 Test Item Value Reference Range Interpretation Comments Glucose, syringe (test code = 125 mg/dL 65-99 H 2345-7) Lab Interpretation (test code = Abnormal 97275-7) [facility]aleHemoglobin, [id number] 19:45:00 Test Item Value Reference Range Interpretation Comments Hemoglobin, syringe (test 7.0 g/dL 14-18 LL Fi nal results code = 718-7) called to and read back by Autumn Perez RN. 12/15/2021 14:4 5 HE Lab Interpretation (test Abnormal code = 79370-7) [facility]aleIonized calcium, [id number] 19:45:00 Test Item Value Reference Range Interpretation Comments Ionized calcium, arterial (test 1.10 mmol/L 1.11-1.32 L code = 91907-8) Lab Interpretation (test code = Abnormal 58380-0) [facility]alePotassium, [id number] 19:45:00 Test Item Value Reference Range Interpretation Comments Potassium, syringe See_Comment [Automat ed message] The (test code = 2007) system wh ich generated this result tra nsmitted reference range : 3.5 - 5.0 mEq/L. The refe rence range was not used to interpret this result as normal/abnormal . [facility], [id number] 19:45:00 Test Item Value Reference Range Interpretation Comments Sodium, syringe (test See_Comment [Auto mated message] The code = 2947-0) system which generated this result tra nsmitted reference range : 125 - 148 mEq/L. The refe rence range was not used to interpret this result as normal/abnormal . [facility]aleArterial blood gas, [id number] 19:45:00 Test Item Value Reference Range Interpretation [...] 2708-6) pH, arterial corrected (test code = 02523-6) pCO2, arterial corrected mmHg (test code = 62912-5) pO2, arterial corrected mmHg (test code = 26831-9) Base excess, arterial See_Comment [Auto mated message] (test code = 1925-7) The sys tem which generated this result transmitted ref erence range: -2 - 2 m Eq/L. The reference r lorena was not used to interpret this result as normal/abnor mal. Lab Interpretation (test Abnormal code = 13113-5) [facility], [id number] 19:45:00 Test Item Value Reference Range Interpretation Comments Glucose, syringe (test code = 125 mg/dL 65-99 H 2345-7) Lab Interpretation (test code = Abnormal 42704-2) [facility], [id number] 19:45:00 Test Item Value Reference Range Interpretation Comments Hemoglobin, syringe (test 7.0 g/dL 14.0-18.0 LL Fi nal results code = 718-7) called to and read back by Autumn Perez RN. 12/15/2021 14:4 5 HE Lab Interpretation (test Abnormal code = 76962-4) [facility], [id number] 19:45:00 Test Item Value Reference Range Interpretation Comments Ionized calcium, arterial (test 1.10 mmol/L 1.11-1.32 L code = 97285-2) Lab Interpretation (test code = Abnormal 29781-9) [facility]alePotassium, [id number] 19:45:00 Test Item Value Reference Range Interpretation Comments Potassium, syringe See_Comment [Automat ed message] The (test code = 2007) system ich generated this result tra nsmitted reference range : 3.5 - 5.0 mEq/L. The refe rence range was not used to interpret this result as normal/abnormal . [facility], [id number] 19:45:00 Test Item Value Reference Range Interpretation Comments Sodium, syringe (test See_Comment [Auto mated message] The code = 2947-0) system which generated this result tra nsmitted reference range : 125 - 148 mEq/L. The refe rence range was not used to interpret this result as normal/abnormal . [facility]aleArterial blood gas, [id number] 19:45:00 Test Item Value Reference Range Interpretation Comments pH, arterial (test code 7.38 7.35-7.45 = 2744-1) pCO2, arterial (test 39 See_Comment [Autom ated message] code = 2019-8) The [facility] generated this result transmitted ref erence range: 35 - 45 mmHg. The reference r lorena was not used to interpret this result as normal/abnor mal. pO2, arterial (test code 405 See_Comment H [A utomated message] = 2703-7) The system [facility] h generated this result transmitted ref erence range: 80 - 90 mmHg. The reference r lorena was not used to interpret this result as normal/abnor mal. Temperature, Celsius 36.0 Degrees C (test code = 8310-5) O2 saturation, arterial 100 % 95-100 (test code = 2708-6) pH, arterial corrected 7.40 (test code = 94312-1) pCO2, arterial corrected 37 mmHg (test code = 36564-4) pO2, arterial corrected 400 mmHg (test code = 17016-1) Base excess, arterial -2 See_Comment [Auto mated message] (test code = 1925-7) The [facility] tem which generated this result transmitted ref erence range: -2 - 2 m Eq/L. The reference r lorena was not used to interpret this result as normal/abnor mal. Lab Interpretation (test Abnormal code = 29083-1) [facility]aleGlucose level, [id number] 19:45:00 Test Item Value Reference Range Interpretation Comments Glucose, syringe (test code = 125 mg/dL 65-99 H 2345-7) Lab Interpretation (test code = Abnormal 39918-4) [facility]aleHemoglobin, [id number] 19:45:00 Test Item Value Reference Range Interpretation Comments Hemoglobin, syringe (test 7.0 g/dL 14.0-18.0 LL Fi nal results code = 718-7) called to and read back by Autumn Perez RN. 12/15/2021 14:4 5 HE Lab Interpretation (test Abnormal code = 35451-9) [facility]aleIonized calcium, [id number] 19:45:00 Test Item Value Reference Range Interpretation Comments Ionized calcium, arterial (test 1.10 mmol/L 1.11-1.32 L code = 77258-3) Lab Interpretation (test code = Abnormal 06153-4) [facility]alePotassium, [id number] 19:45:00 Test Item Value Reference Range Interpretation Comments Potassium, syringe 4.8 See_Comment [Automat ed message] The (test code = 2007) system [employer] generated this result tra nsmitted reference range : 3.5 - 5.0 mEq/L. The refe rence range was not used to interpret this result as normal/abnormal . [facility], [id number] 19:45:00 Test Item Value Reference Range Interpretation Comments Sodium, syringe (test 135 See_Comment [Auto mated message] The code = 2947-0) system which generated this result tra nsmitted reference range : 125 - 148 mEq/L. The refe rence range was not used to interpret this result as normal/abnormal . [facility]aleArterial blood gas, [id number] 19:45:00 Test Item Value Reference Range Interpretation [...] 405 See_Comment H [A utomated message] = 3980-7) The system [employer] h generated this result transmitted ref erence range: 80 - 90 mmHg. The reference r lorena was not used to interpret this result as normal/abnor mal. Temperature, Celsius 36.0 Degrees C (test code = 8310-5) O2 saturation, arterial 100 % 95-100 (test code = 2708-6) pH, arterial corrected 7.40 (test code = 37573-4) pCO2, arterial corrected 37 mmHg (test code = 28335-7) pO2, arterial corrected 400 mmHg (test code = 13305-0) Base excess, arterial -2 See_Comment [Auto mated message] (test code = 1925-7) The sys tem which generated this result transmitted ref erence range: -2 - 2 m Eq/L. The reference r lorena was not used to interpret this result as normal/abnor mal. Lab Interpretation (test Abnormal code = 61174-0) [facility]aleGlucose level, [id number] 19:45:00 Test Item Value Reference Range Interpretation Comments Glucose, syringe (test code = 125 mg/dL 65-99 H 2345-7) Lab Interpretation (test code = Abnormal 48072-2) [facility]aleHemoglobin, [id number] 19:45:00 Test Item Value Reference Range Interpretation Comments Hemoglobin, syringe (test 7.0 g/dL 14.0-18.0 LL Fi nal results code = 718-7) called to and read back by Autumn Perez RN. 12/15/2021 14:4 5 HE Lab Interpretation (test Abnormal code = 24896-5) [facility]aleIonized calcium, [id number] 19:45:00 Test Item Value Reference Range Interpretation Comments Ionized calcium, arterial (test 1.10 mmol/L 1.11-1.32 L code = 69773-6) Lab Interpretation (test code = Abnormal 60783-4) [facility], [id number] 19:45:00 Test Item Value Reference Range Interpretation Comments Potassium, syringe 4.8 See_Comment [Automat ed message] The (test code = 2007) system wh ich generated this result tra nsmitted reference range : 3.5 - 5.0 mEq/L. The refe rence range was not used to interpret this result as normal/abnormal . [facility], [id number] 19:45:00 Test Item Value Reference Range Interpretation Comments Sodium, syringe (test 135 See_Comment [Auto mated message] The code = 2947-0) system which generated this result tra nsmitted reference range : 125 - 148 mEq/L. The refe rence range was not used to interpret this result as normal/abnormal . [facility]aleArterial blood gas, [id number] 19:45:00 Test Item Value Reference Range Interpretation [...] [A utomated message] = 2703-7) The system [facility] h generated this result transmitted ref erence range: 80 - 90 mmHg. The reference r lorena was not used to interpret this result as normal/abnor mal. Temperature, Celsius 36.0 Degrees C (test code = 8310-5) O2 saturation, arterial 100 % 95-100 (test code = 2708-6) pH, arterial corrected 7.40 (test code = 21501-7) pCO2, arterial corrected 37 mmHg (test code = 96310-3) pO2, arterial corrected 400 mmHg (test code = 53969-4) Base excess, arterial -2 See_Comment [Auto mated message] (test code = 1925-7) The [facility] tem which generated this result transmitted ref erence range: -2 - 2 m Eq/L. The reference r lorena was not used to interpret this result as normal/abnor mal. Lab Interpretation (test Abnormal code = 65573-5) [facility], [id number] 19:45:00 Test Item Value Reference Range Interpretation Comments Glucose, syringe (test code = 125 mg/dL 65-99 H 2345-7) Lab Interpretation (test code = Abnormal 59497-8) [facility]Hemoglobin, [id number] 19:45:00 Test Item Value Reference Range Interpretation Comments Hemoglobin, syringe (test 7.0 g/dL 14.0-18.0 LL Fi nal results code = 718-7) called to and read back by Autumn Perez RN. 12/15/2021 14:4 5 HE Lab Interpretation (test Abnormal code = 99569-7) [facility]aleIonized calcium, [id number] 19:45:00 Test Item Value Reference Range Interpretation Comments Ionized calcium, arterial (test 1.10 mmol/L 1.11-1.32 L code = 28675-4) Lab Interpretation (test code = Abnormal 85580-2) [facility]assium, [id number] 19:45:00 Test Item Value Reference Range Interpretation Comments Potassium, syringe 4.8 See_Comment [Automat ed message] The (test code = 2007) [facility] generated this result tra nsmitted reference range : 3.5 - 5.0 mEq/L. The refe rence range was not used to interpret this result as normal/abnormal . [facility], [id number] 19:45:00 Test Item Value Reference Range Interpretation Comments Sodium, syringe (test 135 See_Comment [Auto mated message] The code = 2947-0) system which generated this result tra nsmitted reference range : 125 - 148 mEq/L. The refe rence range was not used to interpret this result as normal/abnormal . [facility]aleArterial blood gas, [id number] 19:45:00 Test Item Value Reference Range Interpretation Comments pH, arterial (test code 7.38 7.35-7.45 = 2744-1) pCO2, arterial (test 39 See_Comment [Autom ated message] code = 2019-8) The [facility] generated this result transmitted ref erence range: 35 - 45 mmHg. The reference r lorena was not used to interpret this result as normal/abnor mal. pO2, arterial (test code 405 See_Comment H [A utomated message] = 8413-7) The system [facility] generated this result transmitted ref erence range: 80 - 90 mmHg. The reference r lorena was not used to interpret this result as normal/abnor mal. Temperature, Celsius 36.0 Degrees C (test code = 8310-5) O2 saturation, arterial 100 % 95-100 (test code = 2708-6) pH, arterial corrected 7.40 (test code = 38942-8) pCO2, arterial corrected 37 mmHg (test code = 71520-0) pO2, arterial corrected 400 mmHg (test code = 71665-3) Base excess, arterial -2 See_Comment [Auto mated message] (test code = 1925-7) The s tem which generated this result transmitted ref erence range: -2 - 2 m Eq/L. The reference r lorena was not used to interpret this result as normal/abnor mal. Lab Interpretation (test Abnormal code = 29862-3) [facility], [id number] 19:45:00 Test Item Value Reference Range Interpretation Comments Glucose, syringe (test code = 125 mg/dL 65-99 H 2345-7) Lab Interpretation (test code = Abnormal 50566-9) [facility]Hemoglobin, [id number] 19:45:00 Test Item Value Reference Range Interpretation Comments Hemoglobin, syringe (test 7.0 g/dL 14.0-18.0 LL Fi nal results code = 718-7) called to and read back by Autumn Perez RN. 12/15/2021 14:4 5 HE Lab Interpretation (test Abnormal code = 69590-3) [facility]Ionized calcium, [id number] 19:45:00 Test Item Value Reference Range Interpretation Comments Ionized calcium, arterial (test 1.10 mmol/L 1.11-1.32 L code = 62620-5) Lab Interpretation (test code = Abnormal 65121-4) [facility], [id number] 19:45:00 Test Item Value Reference Range Interpretation Comments Potassium, syringe 4.8 See_Comment [Automat ed message] The (test code = 2007) system [facility] generated this result tra nsmitted reference range : 3.5 - 5.0 mEq/L. The refe rence range was not used to interpret this result as normal/abnormal . [facility], [id number] 19:45:00 Test Item Value Reference Range Interpretation Comments Sodium, syringe (test 135 See_Comment [Auto mated message] The code = 2947-0) system which generated this result tra nsmitted reference range : 125 - 148 mEq/L. The refe rence range was not used to interpret this result as normal/abnormal . [facility]Arter[facility] blood gas, [id number] 19:45:00 Test Item Value Reference Range Interpretation [...] [A utomated message] = 2703-7) The system [employer] h generated this result transmitted ref erence range: 80 - 90 mmHg. The reference r lorena was not used to interpret this result as normal/abnor mal. Temperature, Celsius 36.0 Degrees C (test code = 8310-5) O2 saturation, arterial 100 % 95-100 (test code = 2708-6) pH, arterial corrected 7.40 (test code = 62592-3) pCO2, arterial corrected 37 mmHg (test code = 48328-4) pO2, arterial corrected 400 mmHg (test code = 43313-1) Base excess, arterial -2 See_Comment [Auto mated message] (test code = 1925-7) The s tem which generated this result transmitted ref erence range: -2 - 2 m Eq/L. The reference r lorena was not used to interpret this result as normal/abnor mal. Lab Interpretation (test Abnormal code = 52980-1) [facility]Glucose level, [id number] 19:45:00 Test Item Value Reference Range Interpretation Comments Glucose, syringe (test code = 125 mg/dL 65-99 H 2345-7) Lab Interpretation (test code = Abnormal 83181-8) [facility]Hemoglobin, [id number] 19:45:00 Test Item Value Reference Range Interpretation Comments Hemoglobin, syringe (test 7.0 g/dL 14.0-18.0 LL Fi nal results code = 718-7) called to and read back by Autumn Perez RN. 12/15/2021 14:4 5 HE Lab Interpretation (test Abnormal code = 04733-5) [facility]aleIonized calcium, [id number] 19:45:00 Test Item Value Reference Range Interpretation Comments Ionized calcium, arterial (test 1.10 mmol/L 1.11-1.32 L code = 10958-9) Lab Interpretation (test code = Abnormal 01697-6) [facility]assium, [id number] 19:45:00 Test Item Value Reference Range Interpretation Comments Potassium, syringe 4.8 See_Comment [Automat ed message] The (test code = 2007) system [facility] generated this result tra nsmitted reference range : 3.5 - 5.0 mEq/L. The refe rence range was not used to interpret this result as normal/abnormal . [facility], [id number] 19:45:00 Test Item Value Reference Range Interpretation Comments Sodium, syringe (test 135 See_Comment [Auto mated message] The code = 2947-0) system which generated this result tra nsmitted reference range : 125 - 148 mEq/L. The refe rence range was not used to interpret this result as normal/abnormal . [facility]Arter[facility] blood gas, [id number] 19:45:00 Test Item Value Reference Range Interpretation Comments pH, arterial (test code 7.38 7.35-7.45 = 2744-1) pCO2, arterial (test 39 See_Comment [Autom ated message] code = 2019-8) The [facility] generated this result transmitted ref erence range: 35 - 45 mmHg. The reference r lorena was not used to interpret this result as normal/abnor mal. pO2, arterial (test code 405 See_Comment H [A utomated message] = 2703-7) The system [facility] generated this result transmitted ref erence range: 80 - 90 mmHg. The reference r lorena was not used to interpret this result as normal/abnor mal. Temperature, Celsius 36.0 Degrees C (test code = 8310-5) O2 saturation, arterial 100 % 95-100 (test code = 2708-6) pH, arterial corrected 7.40 (test code = 30696-2) pCO2, arterial corrected 37 mmHg (test code = 43667-2) pO2, arterial corrected 400 mmHg (test code = 71509-8) Base excess, arterial -2 See_Comment [Auto mated message] (test code = 1925-7) The s tem which generated this result transmitted ref erence range: -2 - 2 m Eq/L. The reference r lorena was not used to interpret this result as normal/abnor mal. Lab Interpretation (test Abnormal code = 19660-5) [facility]Glucose level, [id number] 19:45:00 Test Item Value Reference Range Interpretation Comments Glucose, syringe (test code = 125 mg/dL 65-99 H 2345-7) Lab Interpretation (test code = Abnormal 98591-8) [facility]aleHemoglobin, [id number] 19:45:00 Test Item Value Reference Range Interpretation Comments Hemoglobin, syringe (test 7.0 g/dL 14.0-18.0 LL Fi nal results code = 718-7) called to and read back by Autumn Perez RN. 12/15/2021 14:4 5 HE Lab Interpretation (test Abnormal code = 43906-0) [facility]aleIonized calcium, [id number] 19:45:00 Test Item Value Reference Range Interpretation Comments Ionized calcium, arterial (test 1.10 mmol/L 1.11-1.32 L code = 12345-0) Lab Interpretation (test code = Abnormal 00781-9) [facility]assium, [id number] 19:45:00 Test Item Value Reference Range Interpretation Comments Potassium, syringe 4.8 See_Comment [Automat ed message] The (test code = 2008) system wh ich generated this result tra nsmitted reference range : 3.5 - 5.0 mEq/L. The refe rence range was not used to interpret this result as normal/abnormal . [facility], [id number] 19:45:00 Test Item Value Reference Range Interpretation Comments Sodium, syringe (test 135 See_Comment [Auto mated message] The code = 2947-0) system which generated this result tra nsmitted reference range : 125 - 148 mEq/L. The refe rence range was not used to interpret this result as normal/abnormal . [facility]aleArterial blood gas, [id number] 19:45:00 Test Item Value Reference Range Interpretation [...] 405 See_Comment H [A utomated message] = 3483-7) The system [employer] h generated this result transmitted ref erence range: 80 - 90 mmHg. The reference r lorena was not used to interpret this result as normal/abnor mal. Temperature, Celsius 36.0 Degrees C (test code = 8310-5) O2 saturation, arterial 100 % 95-100 (test code = 2708-6) pH, arterial corrected 7.40 (test code = 03399-5) pCO2, arterial corrected 37 mmHg (test code = 41692-0) pO2, arterial corrected 400 mmHg (test code = 62802-4) Base excess, arterial -2 See_Comment [Auto mated message] (test code = 1925-7) The sys tem which generated this result transmitted ref erence range: -2 - 2 m Eq/L. The reference r lorena was not used to interpret this result as normal/abnor mal. Lab Interpretation (test Abnormal code = 76314-5) [facility], [id number] 19:45:00 Test Item Value Reference Range Interpretation Comments Glucose, syringe (test code = 125 mg/dL 65-99 H 2345-7) Lab Interpretation (test code = Abnormal 19903-3) [facility]Hemoglobin, [id number] 19:45:00 Test Item Value Reference Range Interpretation Comments Hemoglobin, syringe (test 7.0 g/dL 14.0-18.0 LL Fi nal results code = 718-7) called to and read back by Autumn ePrez RN. 12/15/2021 14:4 5 HE Lab Interpretation (test Abnormal code = 92127-3) [facility], [id number] 19:45:00 Test Item Value Reference Range Interpretation Comments Ionized calcium, arterial (test 1.10 mmol/L 1.11-1.32 L code = 89434-1) Lab Interpretation (test code = Abnormal 21924-8) [facility]assium, [id number] 19:45:00 Test Item Value Reference Range Interpretation Comments Potassium, syringe 4.8 See_Comment [Automat ed message] The (test code = 2007) system [facility] generated this result tra nsmitted reference range : 3.5 - 5.0 mEq/L. The refe rence range was not used to interpret this result as normal/abnormal . [facility], [id number] 19:45:00 Test Item Value Reference Range Interpretation Comments Sodium, syringe (test 135 See_Comment [Auto mated message] The code = 2947-0) system which generated this result tra nsmitted reference range : 125 - 148 mEq/L. The refe rence range was not used to interpret this result as normal/abnormal . [facility]aleArterial blood gas, [id number] 19:45:00 Test Item Value Reference Range Interpretation Comments pH, arterial (test code 7.38 7.35-7.45 = 2744-1) pCO2, arterial (test 39 See_Comment [Autom ated message] code = 2019-8) The [facility] generated this result transmitted ref erence range: 35 - 45 mmHg. The reference r lorena was not used to interpret this result as normal/abnor mal. pO2, arterial (test code 405 See_Comment H [A utomated message] = 2703-7) The system [facility] h generated this result transmitted ref erence range: 80 - 90 mmHg. The reference r lorena was not used to interpret this result as normal/abnor mal. Temperature, Celsius 36.0 Degrees C (test code = 8310-5) O2 saturation, arterial 100 % 95-100 (test code = 2708-6) pH, arterial corrected 7.40 (test code = 08524-9) pCO2, arterial corrected 37 mmHg (test code = 31646-4) pO2, arterial corrected 400 mmHg (test code = 33265-2) Base excess, arterial -2 See_Comment [Auto mated message] (test code = 1925-7) The [facility] tem which generated this result transmitted ref erence range: -2 - 2 m Eq/L. The reference r lorena was not used to interpret this result as normal/abnor mal. Lab Interpretation (test Abnormal code = 14476-5) [facility]aleGlucose level, [id number] 19:45:00 Test Item Value Reference Range Interpretation Comments Glucose, syringe (test code = 125 mg/dL 65-99 H 2345-7) Lab Interpretation (test code = Abnormal 03003-8) [facility]aleHemoglobin, [id number] 19:45:00 Test Item Value Reference Range Interpretation Comments Hemoglobin, syringe (test 7.0 g/dL 14.0-18.0 LL Fi nal results code = 718-7) called to and read back by Autumn Perez RN. 12/15/2021 14:4 5 HE Lab Interpretation (test Abnormal code = 75806-9) [facility]aleIonized calcium, [id number] 19:45:00 Test Item Value Reference Range Interpretation Comments Ionized calcium, arterial (test 1.10 mmol/L 1.11-1.32 L code = 46115-3) Lab Interpretation (test code = Abnormal 94437-6) [facility]alePotassium, [id number] 19:45:00 Test Item Value Reference Range Interpretation Comments Potassium, syringe 4.8 See_Comment [Automat ed message] The (test code = 2008) system wh ich generated this result tra nsmitted reference range : 3.5 - 5.0 mEq/L. The refe rence range was not used to interpret this result as normal/abnormal . [facility], [id number] 19:45:00 Test Item Value Reference Range Interpretation Comments Sodium, syringe (test 135 See_Comment [Auto mated message] The code = 2947-0) system which generated this result tra nsmitted reference range : 125 - 148 mEq/L. The refe rence range was not used to interpret this result as normal/abnormal . [facility]aleECG 12 [id number] 04:07:28 Test Item Value Reference Range Interpretation Comments Ventricular rate 63 (test code = 253) Atrial rate (test 63 code = 255) MD interval (test 158 code = 266) QRSD [...] atrial enlargement-Anteroseptal infarct , age undetermined-Abnormal ECG-- [address]2022-09-17 04:07:28 Test Item Value Reference Range Interpretation Comments Ventricular rate 63 (test code = 253) Atrial rate (test 63 code = 255) MD interval (test 158 code = 266) QRSD [...] atrial enlargement-Anteroseptal infarct , age undetermined-Abnormal ECG-- [address]2022-09-17 04:07:28 Test Item Value Reference Range Interpretation Comments Ventricular rate 63 (test code = 253) Atrial rate (test 63 code = 255) MD interval (test 158 code = 266) QRSD [...] atrial enlargement-Anteroseptal infarct , age undetermined-Abnormal ECG-- [address]2022-09-17 04:07:28 Test Item Value Reference Range Interpretation Comments Ventricular rate 63 (test code = 253) Atrial rate (test 63 code = 255) MD interval (test 158 code = 266) QRSD [...] atrial enlargement-Anteroseptal infarct , age undetermined-Abnormal ECG-- [address]2022-09-17 04:07:28 Test Item Value Reference Range Interpretation Comments Ventricular rate 63 (test code = 253) Atrial rate (test 63 code = 255) MD interval (test 158 code = 266) QRSD [...] atrial enlargement-Anteroseptal infarct , age undetermined-Abnormal ECG-- [address]2022-09-17 04:07:28 Test Item Value Reference Range Interpretation Comments Ventricular rate 63 (test code = 253) Atrial rate (test 63 code = 255) MD interval (test 158 code = 266) QRSD [...] atrial enlargement-Anteroseptal infarct , age undetermined-Abnormal ECG-- [address]2022-09-17 04:07:28 Test Item Value Reference Range Interpretation Comments Ventricular rate 63 (test code = 253) Atrial rate (test 63 code = 255) MD interval (test 158 code = 266) QRSD [...] atrial enlargement-Anteroseptal infarct , age undetermined-Abnormal ECG-- [address]2022-09-17 04:07:28 Test Item Value Reference Range Interpretation Comments Ventricular rate 63 (test code = 253) Atrial rate (test 63 code = 255) MD interval (test 158 code = 266) QRSD [...] atrial enlargement-Anteroseptal infarct , age undetermined-Abnormal ECG-- [address]2022-09-17 04:07:28 Test Item Value Reference Range Interpretation Comments Ventricular rate 63 (test code = 253) Atrial rate (test 63 code = 255) MD interval (test 158 code = 266) QRSD [...] atrial enlargement-Anteroseptal infarct , age undetermined-Abnormal ECG-- [address]2022-09-17 04:07:28 Test Item Value Reference Range Interpretation Comments Ventricular rate 63 (test code = 253) Atrial rate (test 63 code = 255) MD interval (test 158 code = 266) QRSD [...] atrial enlargement-Anteroseptal infarct , age undetermined-Abnormal ECG-- [address]2022-09-17 04:07:28 Test Item Value Reference Range Interpretation Comments Ventricular rate (test code = 253) Atrial rate (test code = 255) MD interval (test code = 266) QRSD interval (test code = 260) QT interval (test code = 264) QTC interval (test code = 265) P axis 1 (test code = 267) QRS axis 1 (test code = 268) T wave axis (test code = 270) EKG impression (test Normal sinus code = 273) rhythm--Possible Left atrial enlargement-Anteroseptal infarct , age undetermined-Abnormal ECG-- [address]2022-09-17 04:07:28 Test Item Value Reference Range Interpretation Comments Ventricular rate (test code = 253) Atrial rate (test code = 255) MD interval (test code = 266) QRSD interval (test code = 260) QT interval (test code = 264) QTC interval (test code = 265) P axis 1 (test code = 267) QRS axis 1 (test code = 268) T wave axis (test code = 270) EKG impression (test Normal sinus code = 273) rhythm--Possible Left atrial enlargement-Anteroseptal infarct , age undetermined-Abnormal ECG-- [address]2022-09-17 04:07:28 Test Item Value Reference Range Interpretation Comments Ventricular rate 63 (test code = 253) Atrial rate (test 63 code = 255) MD interval (test 158 code = 266) QRSD [...] atrial enlargement-Anteroseptal infarct , age undetermined-Abnormal ECG-- [address]2022-09-17 04:07:28 Test Item Value Reference Range Interpretation Comments Ventricular rate 63 (test code = 253) Atrial rate (test 63 code = 255) MD interval (test 158 code = 266) QRSD [...] atrial enlargement-Anteroseptal infarct , age undetermined-Abnormal ECG-- [address]2022-09-17 04:07:28 Test Item Value Reference Range Interpretation Comments Ventricular rate 63 (test code = 253) Atrial rate (test 63 code = 255) MD interval (test 158 code = 266) QRSD [...] atrial enlargement-Anteroseptal infarct , age undetermined-Abnormal ECG-- [address]2022-09-17 04:07:28 Test Item Value Reference Range Interpretation Comments Ventricular rate 63 (test code = 253) Atrial rate (test 63 code = 255) MD interval (test 158 code = 266) QRSD [...] atrial enlargement-Anteroseptal infarct , age undetermined-Abnormal ECG-- [address]2022-09-17 04:07:28 Test Item Value Reference Range Interpretation Comments Ventricular rate 63 (test code = 253) Atrial rate (test 63 code = 255) MD interval (test 158 code = 266) QRSD [...] atrial enlargement-Anteroseptal infarct , age undetermined-Abnormal ECG-- [address]2022-09-17 04:07:28 Test Item Value Reference Range Interpretation Comments Ventricular rate 63 (test code = 253) Atrial rate (test 63 code = 255) MD interval (test 158 code = 266) QRSD [...] atrial enlargement-Anteroseptal infarct , age undetermined-Abnormal ECG-- [address]2022-09-17 04:07:28 Test Item Value Reference Range Interpretation Comments Ventricular rate 63 (test code = 253) Atrial rate (test 63 code = 255) MD interval (test 158 code = 266) QRSD [...] atrial enlargement-Anteroseptal infarct , age undetermined-Abnormal ECG-- [facility] 12 [id number] 04:07:28 Test Item Value Reference Range Interpretation Comments Ventricular rate 63 (test code = 253) Atrial rate (test 63 code = 255) MD interval (test 158 code = 266) QRSD [...] atrial enlargement-Anteroseptal infarct , age undetermined-Abnormal ECG-- [facility] [Presence] in Respiratory specimen by CHER with probe [id number] 02:56:55 Test Item Value Reference Range Interpretation Comments SARS-CoV-2 (COVID-19) RNA Not detected [Presence] in Respiratory specimen by CHER with probe detection (test code = 11157-3) Whether patient is employed in a Unknown healthcare setting (test code = 38878-7) Whether the patient has symptoms Unknown related to condition of interest (test code = 16154-9) Whether the patient was Unknown hospitalized for condition of interest (test code = 02027-9) Whether the patient was admitted Unknown to intensive care unit (ICU) for condition of interest (test code = 83134-7) Whether patient resides in a Unknown congregate care setting (test code = 82123-7) status (test code = Unknown 33785-6) Date and time of symptom onset Unknown (test code = 10552-5) [facility] [id number] 18:21:00 Test Item Value Reference Range Interpretation Comments HEPATITIS B SURFACE ANTIGEN (2) Nonreactive Nonreactive (BEAKER) (test code = 2585) ANG, THROMBECTOMY, A-V [id number] 13:26:00Reason for exam:- >nonfunctioning fistulaAnesthesia:->moderateFINAL REPORT DIALYSIS [...] MDReport Verified Date/Time: 02/18/2019 13:26:57 Reading Location: [facility] Radiology Reading Room [id number] 05:52:00 Test Item Value Reference Range Interpretation Comments MAGNESIUM (BEAKER) (test code = 2.0 mg/dL 1.5-3.0 627) BASIC METABOLIC [id number] 05:51:00 Test Item Value Reference Range Interpretation [...] PATIEN TS. CBC W/PLT COUNT & AUTO [id number] 05:37:00 Test Item Value Reference Range Interpretation [...] = 2801) RAD, CHEST, 1 VIEW, NON [id number] 09:21:00Reason for exam:- >pneumoniaShould this be performed at the bedside?->YesFINAL REPORT TECHNIQUE: Frontal view of the chest. INDICATION: pneumonia COMPARISON:Prior day. IMPRESSION:Lines and hardware: Stable.Heart and mediastinum: Stable.Lungs and pleura:Probable scattered atelectasis. No focal airspace consolidation. Central coronary venous congestion.No pleural effusion. No pneumothorax.Soft tissues and bones: No acute abnormality. Signed: Rupinder Campbell MDRepluna Verified Date/Time: 02/17/2019 09:21:38 Reading Location: [facility] Radiology Reading Room COMPREHENSIVE METABOLIC [id number] 06:48:00 Test Item Value Reference Range Interpretation [...] S NOT APPLICABLE FOR DIALYSIS PATIEN TS. [id number] 06:30:00 Test Item Value Reference Range Interpretation Comments MAGNESIUM (BEAKER) (test code = 2.0 mg/dL 1.5-3.0 627) TROPONIN [id number] 06:27:00 Test Item Value Reference Range Interpretation [...] = 2801) RAD, CHEST, 1 VIEW, NON [id number] 00:02:00Reason for exam:- >PNEUMONIAShould this be performed [...] suggestive of mild volume overload. Signed: Rm Shipleyort Verified Date/Time: 02/17/2019 00:02:21 Reading Location: [facility] [id number] Consult Reading Room TROPONIN [id number] 19:17:00 Test Item Value Reference Range Interpretation [...] acute neurological disease, and persistent tachyarrhythmia.COMPREHENSIVE METABOLIC [id number] 19:13:00 Test Item Value Reference Range Interpretation [...] S NOT APPLICABLE FOR DIALYSIS PATIEN TS. [id number] 19:10:00 Test Item Value Reference Range Interpretation Comments MAGNESIUM (BEAKER) 2.1 mg/dL 1.5-3.0 Specimen moderately (test code = 627) hemolyzed CBC W/PLT COUNT & AUTO [id number] 18:47:00 Test Item Value Reference Range Interpretation [...] PERCENT (BEAKER) (test code = 2801) BLOOD [id number] 07:18:00 Test Item Value Reference Range Interpretation Comments Culture Observations (test NO GROWTH AFTER 5 code = COB1) DAYS BLOOD [id number] 07:18:00 Test Item Value Reference Range Interpretation Comments Culture Observations (test NO GROWTH AFTER 5 code = COB1) DAYS HEPATITIS B CORE ANTIBODY,[id number] 12:26:00 Test Item Value Reference Range Interpretation Comments HEPATITIS B CORE AB NON-REACTIVE NON-REACTIVE TEST PER FORMED TOTAL (test code = AT:[facility] [id number]) [id number] [place] [id number] SANTIAGO M.D. XR CHEST 1 [id number] 08:09:24 Location of dictation: [id number] chest one view.HISTORY: J81.1: CHRONIC PULMONARY EDEMACOMMENT: Compared to one day prior. The heart is enlarged but stable, globularappearance suggests pericardial eff usion. Small effusions are now presentslightly greater on the left. No new consolidation, pneumothorax seen.Impression:1. Stable cardiomegaly with concern for pericardial effusion.2. Interval development of small effusions slightly greater on the left.BASIC METABOLIC [id number] 07:14:00 Test Item Value Reference Range Interpretation [...] code = RBCMOR) NORMAL XR CHEST 1 [id number] 07:33:56STUDY: Chest radiographHISTORY: Fever.COMPARISON: 09/05/17TECHNIQUE: Frontal view of the chest.LOCATION: [id number]:The cardiac silhouette is enlarged, stable. Bilateral patchy perihilaropacities are similar in appearance. There is no definitive pleural effusion ordiscernible pneumothorax. No acute osseous abnormalities are identified.IMPRESSION:Stable appearance of bilateral perihilar patchy opacities and cardiomegaly.BASIC METABOLIC [id number] 04:50:00 Test Item Value Reference Range Interpretation [...] (test code = 09D) 8.6 mg/dL 8.3-9.5 [id number] 04:43:00 Test Item Value Reference Range Interpretation [...] MORPH (test code = RBCMOR) NORMAL CARDIAC [id number] 03:24:00 Test Item Value Reference Range Interpretation Comments TROPONIN I (test code = A84) 0.269 ng/mL 0.000-0.045 H CKMB (test code = A49) 7.8 ng/mL <=3.6 HH CPK (test code = 32A) 414 IU/L 39-308 H BASIC METABOLIC [id number] 03:08:00 Test Item Value Reference Range Interpretation [...] code = RBCMOR) NORMAL HEPATITIS B SURFACE [id number] 21:09:00 Test Item Value Reference Range Interpretation Comments HBSAB (test code = HBSAB) REACTIVE REACTIVE HEPATITIS B SURFACE [id number] 20:37:00 Test Item Value Reference Range Interpretation Comments HBSAG (test code = HBSAG) NON-REACTIVE NON-REACTIVE CARDIAC [id number] 20:23:00 Test Item Value Reference Range Interpretation Comments TROPONIN I (test code = A84) 0.231 ng/mL 0.000-0.045 H CKMB (test code = A49) 11.0 ng/mL <=3.6 HH CPK (test code = 32A) 469 IU/L 39-308 H PRO TIME AND [id number] 11:37:00 Test Item Value Reference Range Interpretation [...] = RBCMOR) NORMAL XR CHEST 1 VIEW [id number] 10:04:30EXAMINATION: XR CHEST 1 VIEW PORTABLE.LOCATION: D4.HISTORY: [...] tiny effusions, unchangedsince 09/01/2017,probably reflect vascular congestion.OCCULT [id number] 11:04:00 Test Item Value Reference Range Interpretation [...] 31A) 27 IU/L <=78 CBC (INCLUDES AUTOMATED DIFFERENTIAL)*[id number] 09:07:00 Test Item Value Reference Range Interpretation [...] NON-REACTIVE TEST PERFOR MED ANTIBODY (IGM) (test AT:[facility] code = [id number]) [id number] [place] [id number] SANTIAGO M.D. HEPATITIS B SURFACE ANTIBODY 2017-09-02 15:30:00 Test Item Value Reference Range Interpretation Comments HBSAB (test code = HBSAB) REACTIVE REACTIVE XR CHEST 2 VIEW 2017-09-01 23:21:54XR CHEST 2 VIEW Location:[address] services provided 09/01/2017 11:21 PMIndication:[id number]: Hypertensive disorderComparison:Not currently availableFindings:The heart is enlarged with mild engorgement of the pulmonaryvascularity and prominence of the pulmonary interstitium. Bilateral pleuralfluid collections are noted. No chicho lobar consolidation is seen. No acutebony abnormality.Impression:Findings concerning for cardiogenic pulmonary edema with bilateralpleural fluid collections. HEPATITIS B CORE ANTIBODY,[id number] 12:54:00 Test Item Value Reference Range Interpretation Comments HEPATITIS B CORE AB NON-REACTIVE NON-REACTIVE TEST PER FORMED TOTAL (test code = AT:[facility] [id number]) [id number] [place] [id number] SANTIAGO M.D. GLUCOMETER GLUCOSE- LAB USE [id number] 06:26:00 Test Item Value Reference Range Interpretation Comments GLUCOMETER (test code = 102 mg/dL 70-100 H Mete r ID: GMG) [id number] tor: [address] NM LUNG (V/Q ) SCAN W [id number] 15:28:50Radionuclide ventilation/perfusion lung scanLocation Code: X2XRTMBXJ: Shortness of breathCOMPARISON:None.COMMENT: Routine images of the lungs were obtained after inhalation of 11.1 mCiof Xe133 gas andintravenous injection of 6.0 mCi 99 M technetium MAA.Ventilation is symmetric bilaterally with no focal defect. There is nosignificant trapping.Perfusion images demonstrate normal and symmetric perfusion with no segmentaldefect to suggest a PE.IMPRESSION: Normal VQ scan with a low probability of PE.BASIC METABOLIC [id number] 07:39:00 Test Item Value Reference Range Interpretation [...] code = RBCMOR) NORMAL HEPATITIS B SURFACE [id number] 18:54:00 Test Item Value Reference Range Interpretation Comments HBSAB (test code = HBSAB) REACTIVE REACTIVE HEPATITIS B SURFACE [id number] 18:37:00 Test Item Value Reference Range Interpretation Comments HBSAG (test code = HBSAG) NON-REACTIVE NON-REACTIVE CARDIAC [id number] 18:35:00 Test Item Value Reference Range Interpretation Comments TROPONIN I (test code = A84) 0.115 ng/mL 0.000-0.045 H CKMB (test code = A49) 7.0 ng/mL <=3.6 HH CPK (test code = 32A) 652 IU/L 39-308 H CARDIAC [id number] 14:04:00 Test Item Value Reference Range Interpretation Comments TROPONIN I (test code = A84) 0.120 ng/mL 0.000-0.045 H CKMB (test code = A49) 7.4 ng/mL <=3.6 HH CPK (test code = 32A) 651 IU/L 39-308 H GLUCOMETER GLUCOSE- LAB USE [id number] 11:12:00 Test Item Value Reference Range Interpretation Comments GLUCOMETER (test code = 99 mg/dL 70-100 LIGIA BRUNA METERMeter ID: GMG) [id number] tor: [address] GLUCOMETER GLUCOSE- LAB USE [id number] 04:22:00 Test Item Value Reference Range Interpretation Comments GLUCOMETER (test code = 116 mg/dL 70-100 H Mete r ID: GMG) [id number] tor: [address] GLUCOMETER GLUCOSE- LAB USE [id number] 03:33:00 Test Item Value Reference Range Interpretation Comments GLUCOMETER (test code = 42 mg/dL 70-100 LL Mete r ID: GMG) [id number] tor: [address] MA[address] BRAIN NATRIURETIC [id number] 02:13:00 Test Item Value Reference Range Interpretation Comments proBNP (test code = PBNP) >380260 pg/mL 0-125 H XR ABDOMEN 2 VIEWS W/PA [id number] 02:11:50-CHEST AP VIEW-ABDOMEN AP AND UPRIGHT VIEWS LOCATION: [id number] INDICATION: Vomiting and shortnessof breathCOMPARISON: None FINDINGS: [...] obstruction, CT is recommended for further assessment.CARDIAC [id number] 01:33:00 Test Item Value Reference Range Interpretation Comments TROPONIN I (test code = A84) 0.147 ng/mL 0.000-0.045 H CKMB (test code = A49) 7.0 ng/mL <=3.6 HH CPK (test code = 32A) 688 IU/L 39-308 H COMPREHENSIVE METABOLIC [id number] 01:32:00 Test Item Value Reference Range Interpretation [...] 31A) 121 IU/L <=78 H AMYLASE AND [id number] 01:31:00 Test Item Value Reference Range Interpretation Comments AMYLASE (test code = 10A) 157 U/L 28-100 H LIPASE (test code = 60A) 224 IU/L 73-393 [id number] 01:26:00 Test Item Value Reference Range Interpretation Comments D-DIMER (test code = 687 ng/mL D-DU 0-234 H DDI) D-DIMER COMMENT (test *Level to rule out code = DDCOM) DVT or PE: <235 ng/mL D-DU* PRO TIME AND [id number] 01:26:00 Test Item Value Reference Range Interpretation [...]
[2022-12-29 21:48] LABS: Absolute Lymphocytes (CBC) 0.2 K/uL (0.7-4.9); Hematocrit 28.5 % (39.6-49.0); Lymphocytes % 1.7 % (15.3-44.8); MCV 91.1 fL (80-100); Platelets 268 thou/uL (152-406); RBC Red Blood Cell Count 3.13 M/uL (4.33-5.43)
[2022-12-29 21:54] LABS: Protime INR 1.32
[2022-12-29] MEDS ORDERED: CEFEPIME 2 GM VIAL ONE (22:09)
[2022-12-29] MEDS ORDERED: NA CHLORIDE 0.9% 100 ML ONE (22:10)
[2022-12-29 22:21] LABS: Albumin 2.2 g/dL (3.4-5.0); Bilirubin Total 0.6 mg/dL (0.2-1.0); Protein, Total 8.5 g/dL (6.4-8.2)
[2022-12-29 22:22] LABS: Potassium 6.2 mEq/L (3.5-5.1)
--- NOTE | 2022-12-29 22:24 | RAD REPORT ---
EXAM DESCRIPTION: CT - Abdomen Pelvis Wo Contrast - 12/29/2022 9:53 pm CLINICAL HISTORY: sepsis COMPARISON: Chest Abd Pelvis Wo Con dated 05/29/2022; Chest Angio dated 06/02/2022 TECHNIQUE: Thin cut axial CT imaging of the abdomen and pelvis was performed without IV contrast. Mu ltiplanar reformats were generated and reviewed. All CT scans are performed using dose optimization technique as appropriate and may include automated exposure control or mA/KV adjustment according to patient size. FINDINGS: No suspicious findings in the lung bases. The liver is moderately enlarged, without suspicious focal lesions on noncontrast CT. Spleen, adrenal glands, and pancreas show no suspicious findings. Gallbladder is suboptimally distended limiting carmelita luation. Atrophic kidneys bilaterally bulla cystic changes. . No evidence of radiopaque calculi or hydroureter onephrosis. No dilated bowel loops or bowel wall thickening. Diffuse fluid opacification within nondistended smal l and large bowel, nonspecific. No free air, free fluid or inflammatory stranding. No hernia, mass or bulky lymphadenopathy. The urinary bladder is decompressed limiting evaluation. No suspicious bony findings. Prominent varicosities along the body wall, most pronounced along the right lateral chest wall. Bilat eral gynecomastia. IMPRESSION: No acute intra-abdominal process. Nonspecific fluid opacification within nondistended small and large bowel, may relate to diarrheal st ate. Chronic findings as above.
--- NOTE | 2022-12-29 22:26 | RAD REPORT ---
EXAM DESCRIPTION: RADChest Single View12/29/2022 10:02 pm CLINICAL HISTORY: sepsis COMPARISON: Chest Single View dated 06/12/2022; Chest Single View dated 05/31/2022; Chest Single View d ated 05/29/2022; Chest Single View dated 12/07/2021 TECHNIQUE: Portable AP view of the chest. FINDINGS: Stable central interstitial prominence and trace bilateral effusions versus pleural thicke pato. Left central dialysis catheter in place with catheter tip projecting over the upper saphenous f emoral junction. Aortic endograft along the arch and other vascular stents and left rib plating hardw are are stable in appearance. No pneumothorax or effusion. The cardiomediastinal contours are unrema rkable. IMPRESSION: Stable findings as above, which suggest mild central congestive changes.
--- NOTE | 2022-12-29 23:08 | EDPHYS ---
Physician Documentation [facility] Name: Velasquez Cruz Age: 47 yrs Sex: Male : 1975 Arrival Date: 12/29/2022 Time: 20:58 Bed 8 Private MD: ED Physician Brijesh Banda HPI: 12/29 23:05 This 47 yrs old Black Male presents to ER via EMS with complaints of Fever, confusion. rt 23:05 Patient presents to the ED with fever, confusion. Patient last had his dialysis on rt Friday. Reportedly was febrile, tachycardic by EMS, was given Tylenol prior to arrival. The patient states that other than the fever, he feels well, no other complaints. Symptoms are moderate severity, no other aggravating alleviating factors.. Historical: - Allergies: 21:06 No Known Allergies; as6 - PMHx: 21:06 Anemia; Anxiety; Bipolar disorder; Cocaine Abuse; COPD; DVT; HD MWF; HEART FAILURE; as6 Hypertensive disorder; - Immunization history:: Adult Immunizations up to date. - Social history:: Smoking status: Patient reports the use of cigarette tobacco products, smokes one pack cigarettes per day. - Family history:: not pertinent. ROS: 23:05 Cardiovascular: Negative for chest pain, palpitations, and edema, Respiratory: Negative rt for shortness of breath, cough, wheezing, and pleuritic chest pain, Abdomen/GI: Negative for abdominal pain, nausea, vomiting, diarrhea, and constipation, Skin: Negative for injury, rash, and discoloration, Psych: Negative for depression, anxiety, suicide ideation, homicidal ideation, and hallucinations, 23:05 Constitutional: Positive for chills, fever, 23:05 Neuro: Positive for altered mental status, Negative for loss of consciousness, Exam: 23:05 Constitutional: This is a well developed, well nourished patient who is awake, alert, rt and in no acute distress. Head/Face: Normocephalic, atraumatic. Cardiovascular: Regular rate and rhythm with a normal S1 and S2. No gallops, murmurs, or rubs. Normal PMI, no JVD. No pulse deficits. Respiratory: Lungs have equal breath sounds bilaterally, clear to auscultation and percussion. No rales, rhonchi or wheezes noted. No increased work of breathing, no retractions or nasal flaring. Abdomen/GI: Soft, non-tender, with normal bowel sounds. No distension or tympany. No guarding or rebound. No evidence of tenderness throughout. Skin: Warm, dry with normal turgor. Normal color with no rashes, no lesions, and no evidence of cellulitis. MS/ Extremity: Pulses equal, no cyanosis. Neurovascular intact. Full, normal range of motion. Neuro: Awake and alert, GCS 15, oriented to person, place, time, and situation. Cranial nerves II-XII grossly intact. Motor strength 5/5 in all extremities. Sensory grossly intact. Cerebellar exam normal. Normal gait. Psych: Awake, alert, with orientation to person, place and time. Behavior, mood, and affect are within normal limits. 23:05 Chest/axilla: Dialysis port to left upper chest, symmetrical chest rise. 23:31 ECG was reviewed by the Attending Physician. rt Vital Signs: 21:06 BP 141 / 78; Pulse 103; Resp 22 S; Temp 100.5(O); Pulse Ox 96% on R/A; Weight 86 kg as6 (R); Height 5 ft. 6 in. (R); Pain 8/10; 21:33 BP 153 / 50; Pulse 60; Resp 20 S; Pulse Ox 98% on R/A; jw7 22:48 BP 95 / 61; Pulse 94; Resp 18; Temp 98.9(O); Pulse Ox 95% on R/A; jb4 23:30 BP 91 / 53; Pulse 88; Resp 16; Pulse Ox 95% on R/A; jb4 12/30 00:30 BP 83 / 54; Pulse 89; Resp 16; Pulse Ox 96% on R/A; jb4 01:30 BP 96 / 68; Pulse 71; Resp 16; Pulse Ox 95% on R/A; jb4 03:00 BP 110 / 79; Pulse 79; Resp 16; Temp 97.9(TE); Pulse Ox 100% on R/A; jb4 12/29 21:06 Body Mass Index 30.60 (86.00 kg, 167.64 cm) as6 12/29 21:06 Pain Scale: Adult as6 00:30 Provider notified see MAR for orders. jb4 MDM: 12/29 21:03 Patient medically screened. rt 23:08 Differential Diagnosis Sepsis, pneumonia, end-stage renal disease, uremia. Data rt reviewed: vital signs, nurses notes. Consideration of Admission/Observation Patient was admitted/placed on observation. Management of patient was discussed with the following: Hospitalist: Agrees to admit. I considered the following discharge prescriptions or medication management in the emergency department Medications were administered in the Emergency Department. See MAR. Counseling: I had a detailed discussion with the patient and/or guardian regarding lab results, radiology results, the need for further work-up and treatment in the hospital. 12/30 00:49 ED course: Patient with end-stage renal disease, believe that 30 cc/kg bolus will rt likely put the patient to volume overload with pulmonary edema, therefore, gentle hydration with small boluses were given.. 12/29 21:04 Order name: Blood Culture Adult (2) rt 12/29 21:04 Order name: CBC with Diff; Complete Time: 22:00 rt 12/29 21:04 Order name: CMP; Complete Time: 22:23 rt 12/29 21:04 Order name: Lactate w/ 2H reflex if indic.; Complete Time: 22:23 rt 12/29 21:04 Order name: Protime (+inr); Complete Time: 22:00 rt 12/29 21:04 Order name: Ptt, Activated; Complete Time: 22:00 rt 12/29 22:50 Order name: Flu; Complete Time: 00:12 la1 12/29 22:50 Order name: COVID-19 SARS RT PCR; Complete Time: 00:12 la1 12/30 00:12 Order name: ABG; Complete Time: 01:29 la1 12/30 00:20 Order name: Glucose, Ancillary Testing; Complete Time: 00:57 EDMS 12/30 01:43 Order name: Potassium; Complete Time: 03:00 jb4 12/29 21:04 Order name: Chest Single View XRAY; Complete Time: 22:35 rt 12/29 21:04 Order name: CT Abd/Pelvis - Without Contrast; Complete Time: 22:35 rt 12/29 21:04 Order name: EKG; Complete Time: 21:05 rt 12/29 21:04 Order name: Accucheck; Complete Time: 21:40 rt 12/29 21:04 Order name: Cardiac monitoring; Complete Time: 21:40 rt 12/29 21:04 Order name: EKG - Nurse/Tech; Complete Time: 21:40 rt 12/29 21:04 Order name: IV Saline Lock - Large Bore; Complete Time: :40 rt 12/29 21:04 Order name: Labs collected and sent; Complete Time: 21:40 rt 12/29 21:04 Order name: O2 Per Protocol; Complete Time: 21:11 rt 12/29 21:04 Order name: O2 Sat Monitoring; Complete Time: 21:11 rt 12/29 21:04 Order name: Vital Signs; Complete Time: 21:11 rt 12/29 23:48 Order name: Misc. Order: Repeat potassium level at 0200; Complete Time: 01:57 la1 EC/01 23:31 Rate is 102 beats/min. Rhythm is regular, Sinus tachycardia with No ectopy. Left axis rt deviation noted. OK interval is normal. QRS interval is normal. QT interval is normal. T waves are Peaked. Administered Medications: 21:30 Not Given (given ptaa): [id number] mg PO once as6 22:04 Drug: Cefepime IVPB 2 grams IVPB at 200 ml/hr once over 30 mins; (mix in NS 100 mL) jw7 Route: IVPB; Rate: 200 ml/hr; Infused Over: 30 mins; Site: left forearm; 12/30 03:51 Follow up: Response: No adverse reaction; IV Status: Completed infusion; IV Intake: as6 100ml 12/29 23:23 Drug: NS 0.9% IV 500 ml IV at bolus once Route: IV; Rate: bolus; Site: left forearm; jb4 12/30 03:51 Follow up: Response: No adverse reaction; IV Status: Completed infusion; IV Intake: as6 500ml 12/29 23:23 Drug: Calcium Gluconate IVPB 1 grams IVPB once over 60 mins; (mix in NS 100 mL) Route: jb4 IVPB; Infused Over: 60 mins; Site: left hand; 12/30 03:52 Follow up: Response: No adverse reaction; IV Status: Completed infusion; IV Intake: as6 100ml 12/29 23:23 Drug: D10 in Water IVP 250 ml IVP once Route: IVP; Site: left forearm; jb4 12/30 03:50 Follow up: Response: No adverse reaction as12/29 23:23 Drug: Sodium Bicarbonate IVP 1 amp IVP once; (50 mL); equals 50 mEq Route: IVP; Site: [facility] left forearm; 12/30 03:50 Follow up: Response: No adverse reaction as6 12/29 23:43 Drug: Albuterol Inhalation 2.5 mg Inhalation every 20 minutes x3 Route: Inhalation; jb4 23:43 Drug: Albuterol Inhalation 2.5 mg Inhalation every 20 minutes x3 Route: Inhalation; jb4 23:44 Drug: Albuterol Inhalation 2.5 mg Inhalation every 20 minutes x3 Route: Inhalation; jb4 12/30 03:50 Follow up: Response: No adverse reaction as6 12/29 23:45 Drug: Insulin Regular Human IVP 10 units IVP once {Co-Signature: as6 (Pranav Dietz [facility] RN).} Route: IVP; Site: left forearm; 12/30 03:51 Follow up: Response: No adverse reaction as6 00:16 Drug: Kayexalate PO 30 grams PO once Route: PO; jb4 03:50 Follow up: Response: No adverse reaction as6 00:55 Drug: NS 0.9% IV 500 ml IV at bolus once Route: IV; Rate: bolus; Site: left hand; jb4 03:49 Follow up: Response: No adverse reaction; IV Status: Completed infusion; IV Intake: as6 500ml 01:03 Drug: vancoMYCIN IVPB 1 grams IVPB once over 2 hrs Route: IVPB; Infused Over: 2 hrs; 4 Site: left hand; 03:49 Follow up: Response: No adverse reaction; IV Status: Completed infusion; IV Intake: as6 250ml Disposition Summary: 12/29/22 23:08 Hospitalization Ordered Notes: Hospitalization Status: Inpatient Admission rt Provider: Jem Lobo rt Condition: Stable rt Problem: new rt Symptoms: have improved rt Bed/Room Type: Standard rt Location: Intensive Care Unit(12/30/22 03:03) cg Room Assignment: 1-(12/30/22 03:03) cg Diagnosis - Hyperkalemia rt - Sepsis, unspecified organism rt Forms: - Medication Reconciliation Form rt - SBAR form rt - Leadership Thank You Letter rt Critical care time excluding procedures: 12/29 23:30 Critical care time: Bedside Care: 30 minutes, Consultation: 5 minutes. Total time: 35 rt minutes Signatures: Dispatcher [employer] EDMS Timothy Montiel, FLUE TILE PRESS OPERATOR-C FLUE TILE PRESS OPERATOR-Cla1 Ana Del Valle, RN RN cg Brody Zaragoza, RN RN jb4 Pranav Dietz, OLIVIA RN as6 Maribell Giordano, RN RN jw7 Brijesh Banda MD MD rt Pranav Dietz RN as6 Corrections: (The following items were deleted from the chart) 12/30 00:20 12/29 23:08 Telemetry/MedSurg (Inpatient) rt cg 12/30 00:20 12/29 23:08 rt cg 12/30 00:40 00:20 BR ER HOLD cg cg 00:40 00:20 ERHOLD- cg cg 03:03 00:40 Telemetry/MedSurg (Inpatient) cg cg 03:03 00:40 cg cg
--- NOTE | 2022-12-29 23:08 | ER ---
Nurse's Notes [facility] Name: Velasquez Cruz Age: 47 yrs Sex: Male : 1975 Arrival Date: 12/29/2022 Time: 20:58 Bed 8 Private MD: Diagnosis: Hyperkalemia;Sepsis, unspecified organism Presentation: 12/29 21:06 Chief complaint: EMS states: called out to shelter for lethargic and pt just not as6 feeling well that started today. 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 Coronavirus screen: At this time, the client does not indicate any symptoms associated with coronavirus-19. Ebola Screen: No symptoms or risks identified at this time. Initial Sepsis Screen: Does the patient meet any 2 criteria? RR > 20 per min. Temp <36.0*C (96.8*F)) or > 38.3*C (100.9*F). HR > 90 bpm. Yes Does the patient have a suspected source of infection? No. Patient's initial sepsis screen is negative. If YES to both, name of provider notified: Brijesh Banda MD. Risk Assessment: Do you want to hurt yourself or someone else? Patient reports no desire to harm self or others. Onset of symptoms was December 29, 2022. Care prior to arrival: Medication(s) given: Tylenol, 1000 mg, IV initiated. 20 GA, in the left hand. 21:06 Acuity: HEAVEN 2 as6 21:06 Method Of Arrival: EMS: [facility] as6 Triage Assessment: 21:29 General: Appears in no apparent distress. uncomfortable, ill, Behavior is calm, jw7 cooperative. Pain: Complains of pain in pt states pain is in his joints Pain currently is 7 out of 10 on a pain scale. Quality of pain is described as aching, Is continuous. EENT: No deficits noted. No signs and/or symptoms were reported regarding the EENT system. Neuro: Ahn Agitation-Sedation Scale (RASS): 0 - Alert and Calm Level of Consciousness is awake, alert, obeys commands, Oriented to person, place, time, situation. Cardiovascular: No deficits noted. Capillary refill < 3 seconds Clubbing of nail beds is absent JVD is absent Patient's skin is warm and dry. Respiratory: No deficits noted. Airway is patent Trachea midline Respiratory effort is even, unlabored, Respiratory pattern is regular, symmetrical. GI: Abdomen is round non-distended. : No deficits noted. No signs and/or symptoms were reported regarding the genitourinary system. Derm: Skin is intact, is healthy with good turgor, Skin is dry, Skin is normal, Skin temperature is warm. Musculoskeletal: No deficits noted. No signs and/or symptoms reported regarding the musculoskeletal system. Circulation, motion, and sensation intact. Range of motion: intact in all extremities. Historical: - Allergies: 21:06 No Known Allergies; as6 - PMHx: 21:06 Anemia; Anxiety; Bipolar disorder; Cocaine Abuse; COPD; DVT; HD MWF; HEART FAILURE; as6 Hypertensive disorder; - Immunization history:: Adult Immunizations up to date. - Social history:: Smoking status: Patient reports the use of cigarette tobacco products, smokes one pack cigarettes per day. - Family history:: not pertinent. Screenin:08 [facility] ED Fall Risk Assessment (Adult) Score/Fall Risk Level 0 - 2 = Low Risk. Abuse as6 screen: Denies threats or abuse. Denies injuries from another. Nutritional screening: No deficits noted. Tuberculosis screening: No symptoms or risk factors identified. Assessment: 21:33 General: see triage assessment. jw7 22:44 Reassessment: Pt is resting in bed with eyes closed, respirations are even and jb4 unlabored with no s/s of pain or distress noted. 23:15 Reassessment: Pt noted to be lethargic and difficult to awaken. Respirations are even jb4 and unlabored with no s/s of distress. Provider notified. 12/30 00:00 Reassessment: Patient appears in no apparent distress at this time. No changes from jb4 previously documented assessment. Patient and/or family updated on plan of care and expected duration. Pain level reassessed. 01:00 Reassessment: Pt resting in bed with eyes closed, respirations are even and unlabored jb4 with no s/s of pain or distress noted. 02:00 Reassessment: Patient appears in no apparent distress at this time. No changes from jb4 previously documented assessment. Patient and/or family updated on plan of care and expected duration. Pain level reassessed. 03:00 Reassessment: Patient appears in no apparent distress at this time. No changes from jb4 previously documented assessment. Patient and/or family updated on plan of care and expected duration. Pain level reassessed. Vital Signs: 12/29 21:06 BP 141 / 78; Pulse 103; Resp 22 S; Temp 100.5(O); Pulse Ox 96% on R/A; Weight 86 kg as6 (R); Height 5 ft. 6 in. (R); Pain 8/10; 21:33 BP 153 / 50; Pulse 60; Resp 20 S; Pulse Ox 98% on R/A; jw7 22:48 BP 95 / 61; Pulse 94; Resp 18; Temp 98.9(O); Pulse Ox 95% on R/A; jb4 23:30 BP 91 / 53; Pulse 88; Resp 16; Pulse Ox 95% on R/A; jb4 12/30 00:30 BP 83 / 54; Pulse 89; Resp 16; Pulse Ox 96% on R/A; jb4 01:30 BP 96 / 68; Pulse 71; Resp 16; Pulse Ox 95% on R/A; jb4 03:00 BP 110 / 79; Pulse 79; Resp 16; Temp 97.9(TE); Pulse Ox 100% on R/A; jb4 12/29 21:06 Body Mass Index 30.60 (86.00 kg, 167.64 cm) as6 10 21:06 Pain Scale: Adult as6 00:30 Provider notified see MAR for orders. jb4 ED Course: 12/29 21:01 Patient arrived in ED. jj6 21:03 Brijesh Banda MD is Attending Physician. rt 21:05 Arm band placed on. as6 21:08 Triage completed. as6 21:09 Mariebll Giordano, RN is Primary Nurse. jw7 21:09 Bed in low position. Call light in reach. Side rails up X2. as6 21:28 EKG done, by ED staff, reviewed by Brijesh Banda MD. jw7 21:40 Ptt, Activated Sent. jb4 21:40 Protime (+inr) Sent. jb4 21:40 Lactate w/ 2H reflex if indic. Sent. jb4 21:40 CMP Sent. jb4 21:40 CBC with Diff Sent. jb4 21:54 CT Abd/Pelvis - Without Contrast In Process Unspecified. EDMS 22:04 Chest Single View XRAY In Process Unspecified. EDMS 23:07 Jem Lobo MD is Hospitalizing Provider. rt 12/30 03:49 Provided Education on: need for admit. as6 03:49 No provider procedures requiring assistance completed. Patient admitted, IV remains in as6 place. Administered Medications: 12/29 21:30 Not Given (given ptaa): [id number] mg PO once as6 22:04 Drug: Cefepime IVPB 2 grams IVPB at 200 ml/hr once over 30 mins; (mix in NS 100 mL) jw7 Route: IVPB; Rate: 200 ml/hr; Infused Over: 30 mins; Site: left forearm; 12/30 03:51 Follow up: Response: No adverse reaction; IV Status: Completed infusion; IV Intake: as6 100ml 12/29 23:23 Drug: NS 0.9% IV 500 ml IV at bolus once Route: IV; Rate: bolus; Site: left forearm; [facility] 12/30 03:51 Follow up: Response: No adverse reaction; IV Status: Completed infusion; IV Intake: as6 500ml 12/29 23:23 Drug: Calcium Gluconate IVPB 1 grams IVPB once over 60 mins; (mix in NS 100 mL) Route: jb4 IVPB; Infused Over: 60 mins; Site: left hand; 12/30 03:52 Follow up: Response: No adverse reaction; IV Status: Completed infusion; IV Intake: as6 100ml 12/29 23:23 Drug: D10 in Water IVP 250 ml IVP once Route: IVP; Site: left forearm; [facility] 12/30 03:50 Follow up: Response: No adverse reaction 12/29 23:23 Drug: Sodium Bicarbonate IVP 1 amp IVP once; (50 mL); equals 50 mEq Route: IVP; Site: [facility] left forearm; 12/30 03:50 Follow up: Response: No adverse reaction 12/29 23:43 Drug: Albuterol Inhalation 2.5 mg Inhalation every 20 minutes x3 Route: Inhalation; 23:43 Drug: Albuterol Inhalation 2.5 mg Inhalation every 20 minutes x3 Route: Inhalation; [facility] 23:44 Drug: Albuterol Inhalation 2.5 mg Inhalation every 20 minutes x3 Route: Inhalation; 12/30 03:50 Follow up: Response: No adverse reaction as12/29 23:45 Drug: Insulin Regular Human IVP 10 units IVP once {Co-Signature: as6 (Pranav Dietz RN).} Route: IVP; Site: left forearm; 12/30 03:51 Follow up: Response: No adverse reaction as6 00:16 Drug: Kayexalate PO 30 grams PO once Route: PO; jb4 03:50 Follow up: Response: No adverse reaction as6 00:55 Drug: NS 0.9% IV 500 ml IV at bolus once Route: IV; Rate: bolus; Site: left hand; jb4 03:49 Follow up: Response: No adverse reaction; IV Status: Completed infusion; IV Intake: as6 500ml 01:03 Drug: vancoMYCIN IVPB 1 grams IVPB once over 2 hrs Route: IVPB; Infused Over: 2 hrs; jb4 Site: left hand; 03:49 Follow up: Response: No adverse reaction; IV Status: Completed infusion; IV Intake: as6 250ml Medication: 12/29 21:09 VIS not applicable for this client. as6 Intake: 12/30 03:49 IV: 500ml; Total: 500ml. as6 03:49 IV: 250ml; Total: 750ml. as6 03:51 IV: 100ml; Total: 850ml. as6 03:51 IV: 500ml; Total: 1350ml. as6 03:52 IV: 100ml; Total: 1450ml. as6 Outcome: 12/29 23:08 Decision to Hospitalize by Provider. rt 12/30 03:48 Admitted to ICU accompanied by tech, via stretcher, with chart, as6 Condition: stable Instructed on the need for admit, 03:52 Patient left the ED. as6 Signatures: Dispatcher [employer] EDBrody King RN RN jb4 Mara Norman jj6 Pranav Dietz RN RN as6 Maribell Giordano RN RN jw7 Brijesh Banda MD MD rt Pranav Dietz RN as6
[2022-12-29] MEDS ORDERED: INSULIN -REGULAR HUMAN 50 UNIT/0.5 ML ML ONE (23:20)
[2022-12-29] MEDS ORDERED: SODIUM BICARB 50 MEQ/50ML VIAL ONE (23:21)
[2022-12-29] MEDS ORDERED: D10W 250 ML IV ONE (23:21)
[2022-12-29] MEDS ORDERED: NA CHLORIDE 0.9% 500 ML ONE (23:21)
[2022-12-29] MEDS ORDERED: CALCIUM GLUCONATE 1 GM IVPB 1 GM/50 ML BAG IV ONE (23:21)
[2022-12-29] MEDS ORDERED: ALBUTEROL 2.5 MG/3 ML NEB SOL ONE (23:49)
[2022-12-30] MEDS ORDERED: LACTULOSE 20 GM/30 ML UCUP ONE (00:03)
[2022-12-30] MEDS ORDERED: SOD POLYSTYREN SUL 15 GM/60 ML UCUP ONE (00:07)
[2022-12-30 00:49] LABS: Arterial Blood Carboxyhemoglob 1.8 % (0-1.5); Blood Gas Oxyhemoglobin 91.7 % (94-97); Blood O2 Saturation 95.2 % (92-98.5)
[2022-12-30] MEDS ORDERED: VANCOMYCIN 1 GM/VIAL ONE (00:59)
[2022-12-30] MEDS ORDERED: NA CHLORIDE 0.9% 250 ML ONE (00:59)
[2022-12-30] MEDS ORDERED: NA CHLORIDE 0.9% 500 ML ONE (00:59)
--- NOTE | 2022-12-30 03:08 | P.HP ---
Certification for Inpatient Patient admitted to: Inpatient With expected LOS: >2 Midnights Patient will require the following post-hospital care: None Practitioner: I am a practitioner with admitting privileges, knowledge of patient current condition, hospital course, and medical plan of care. Services: Services provided to patient in accordance with Admission requirements found in Title 42 Section 412.3 of the Code of Federal Regulations Patient History Date of Service: 12/30/22 Reason for admission: Hyperkalemia, fever History of Present Illness: 47-year-old male with history of ESRD on HD MWF, COPD, GERD, hypertension, hyperlipidemia, BPD presents emerged department for fever. He reports having chills, fever over the course of last 2 days worsened by [facility] for evaluation. Upon arrival to the emergency department patient was noted to have low-grade fever 100.5 heart rate 103 respiratory 22 blood pressure 141/70. Sepsis work-up was initiated, his labs were significant for blood cell count 13.1 hemoglobin 9.6 sodium 126 potassium 6.2 chloride 94 BUN 87 creatinine 1.9 GFR 5 glucose 127. He received IV cefepime, had a chest x-ray and a CT of his abdomen pelvis without contrast, CT was negative for acute findings chest x-ray also negative. Patient became drowsy while in the ED, ABG was performed which was normal. He was given treatment for hyperkalemia, potassium level was rechecked and is now 3.8. He will be admitted for ESRD with hyperkalemia, fever. Allergies No Known Allergies Allergy (Unverified 05/31/22 20:46) Home Medications: Acetaminophen [8 Hour Acetaminophen] 650 mg PO Q6H PRN 06/03/22 Acetaminophen with Codeine [Acetaminophen-Cod #3 Tablet] 1 each PO BID PRN 06/03/22 Albuterol Inhaler [Ventolin Inhaler*] 2 puff IH Q6H PRN 06/03/22 Albuterol Sulfate [Albuterol Sulfate 0.083% Neb Soln] 2.5 mg IH TID PRN 06/03/22 Amino Acids/Protein Hydr/Fiber [Pro-Stat Renal Care Liquid Pkt] 30 ml PO DAILY 06/03/22 Amlodipine [Norvasc*] 10 mg PO DAILY 06/03/22 Aspirin [Aspirin EC 81 MG] 81 mg PO DAILY 06/03/22 Atorvastatin Calcium [Lipitor] 40 mg PO BEDTIME 06/03/22 Buspirone HCl 7.5 mg PO BID 06/03/22 Carvedilol [Coreg] 25 mg PO BID 06/03/22 Cetirizine HCl [All Day Allergy Relief] 10 mg PO DAILY 06/03/22 Diphenhydramine HCl [Allergy Relief] 25 mg PO BEDTIME 06/03/22 Ergocalciferol (Vitamin D2) [Drisdol] 1,250 mcg PO EVERY 7TH DAY 06/03/22 Ferrous Sulfate [Ferrous Sulfate*] 325 mg PO BID 06/03/22 Gabapentin [Neurontin*] 100 mg PO TID 06/03/22 Hydralazine [Apresoline*] 10 mg PO Q8H 06/03/22 Isosorbide Mononitrate [Isosorbide Mononitrate ER] 30 mg PO DAILY 06/03/22 LORazepam [Ativan*] 0.5 mg PO Q8H PRN 06/03/22 Lactulose 20 g PO DAILY PRN 06/03/22 Lidocaine 1 patch TOP DAILY PRN 06/03/22 Magnesium [Magnesium Gluconate] 400 mg PO BID 06/03/22 Multivitamin 1 tab PO DAILY 06/03/22 Pantoprazole Sodium [Protonix] 40 mg PO DAILY 06/03/22 Polyethyl Gly 3350 [Glycolax*] 1 packet PO DAILY PRN 06/03/22 Sennosides [Senna Lax] 2 tab PO DAILY 06/03/22 Sevelamer Carbonate [Renvela] 800 mg PO TID 06/03/22 - Past Medical/Surgical History Diabetic: Yes -: ESRD on HD (Dr. Munoz/ Jere) -: GERD -: Hypertension -: Hyperlipidemia -: BPD -: COPD -: Dialysis catheter -: Bilateral upper extremity fistulasno longer in use Psychosocial/ Personal History: Patient currently resides at [facility] - Family History Mother -: Heart disease - Social History Smoking Status: Never smoker Alcohol use: No CD- Drugs: No Caffeine use: Yes Place of Residence: Home Review of Systems 10-point ROS is otherwise unremarkable General: Fever, Chills, Weakness, Malaise Physical Examination - Physical Exam General: Alert, In no apparent distress, Oriented x3 HEENT: Atraumatic, PERRLA, Mucous membr. moist/pink, EOMI, Sclerae nonicteric Neck: Supple, 2+ carotid pulse no bruit, No LAD, Without JVD or thyroid abnormality Respiratory: Clear to auscultation bilaterally, Normal air movement Cardiovascular: Regular rate/rhythm, Normal S1 S2 Gastrointestinal: Normal bowel sounds, No tenderness Musculoskeletal: No tenderness Integumentary: No rashes Neurological: Normal speech, Normal strength at 5/5 x4 extr, Normal tone, Normal affect - Studies Laboratory Data (last 24 hrs) 12/30/22 12/29/22 12/29/22 01:46 21:30 21:30 WBC Hgb Hct Plt Count PT 14.5 H INR 1.32 APTT 29.7 Sodium 126 L Potassium 3.8 D 6.2 H* BUN 87 H Creatinine 11.90 H Glucose 108 H Total Bilirubin 0.6 AST 22 ALT 21 Alkaline Phosphatase 78 12/29/22 21:30 WBC 13.10 H Hgb 9.6 L Hct 28.5 L Plt Count 268 PT INR APTT Sodium Potassium BUN Creatinine Glucose Total Bilirubin AST ALT Alkaline Phosphatase Microbiology Data (last 24 hrs): 12/29/22 23:25 Nasopharnyx Influenza Type A Antigen Screen - Final 12/29/22 23:25 Nasopharnyx Influenza Type B Antigen Screen - Final Assessment and Plan - Plan Assessment: ESRD on HD MWF with hyperkalemia Fever, SIRS criteria, metabolic encephalopathy Hypertension Hyperlipidemia COPD Plan: ESRD on HD MWF with hyperkalemia Hyperkalemia treated in ED, downtrending from 6.2-3.8. Nephrology consulted, discussed case. Fever, SIRS criteria, metabolic encephalopathy No source of infection has been identified thus far. Upon arrival to the emergency department patient was awake, alert, conversational. He is now drowsy, alert to verbal stimulus but seems to have difficulty staying weight. ABG is normal, glucose was normal, neck is supple denies headache, is oriented but drowsy. Possibly related to cefepime administration will cover with broad- spectrum antibiotics including vancomycin, Rocephin. Blood cultures obtained in ED, lactate all within normal notes. Hypertension Hyperlipidemia COPD Continue home medications as appropriate. DVT PPX: Heparin subcu Code status: Full Discharge Plan: Home Plan to discharge in: Greater than 2 days - Advance Directives Does patient have a Living Will: No Does patient have a Durable POA for Healthcare: No - Code Status/Comfort Care Code Status Assessed: Yes (Full code) Critical Care: No Time Spent Managing Pts Care (In Minutes): 70
[2022-12-30] MEDS ORDERED: ACETAMINOPHEN 500 MG TAB PO PRN (03:32)
[2022-12-30] MEDS ORDERED: ONDANSETRON 4 MG/2 ML VIAL IV PRN (03:32)
[2022-12-30 04:31] VITALS: BMI 30.3
[2022-12-30] MEDS ORDERED: VANCOMYCIN 500 MG in NA CHLORIDE 0.9% 100 ML IVPB ONE (05:00)
[2022-12-30] MEDS: HEPARIN 5000 UNIT/ML 1 ML VIAL SQ SCH ×2 (08:14→20:26)
[2022-12-30] MEDS: CEFTRIAXONE 1,000 MG in NA CHLORIDE 0.9% 50 ML IVPB SCH (08:14)
[2022-12-30 08:17] LABS: Absolute Lymphocytes (CBC) 0.3 K/uL (0.7-4.9); Hematocrit 28.4 % (39.6-49.0); Lymphocytes % 2.1 % (15.3-44.8); MCV 92.2 fL (80-100); MPV 8.9 fL (7.6-11.3); Platelets 234 thou/uL (152-406); RBC Red Blood Cell Count 3.08 M/uL (4.33-5.43)
[2022-12-30 08:35] LABS: Potassium 5.5 mEq/L (3.5-5.1); Thyroid Stimulating Hormone 1.53 uIU/mL (0.358-3.740)
[2022-12-30 09:22] LABS: Anisocytosis 1+; Blood Morphology Comment NOTED (NOT SEEN); Burr Cells 1+; Platelet Estimate ADEQ; Target Cells 2+; White Blood Cell Scan OK (OK)
[2022-12-30] MEDS ORDERED: NA CHLORIDE 0.9% 1,000 ML IV PRN (12:56)
[2022-12-30] MEDS ORDERED: MANNITOL 25% 12.5 GM/50 ML VIAL IV PRN (12:56)
[2022-12-30] MEDS ORDERED: EPOETIN ALFA 10,000 UNIT/ML VIAL IV SCH (13:00)
[2022-12-30] MEDS ORDERED: ALBUMIN HUMAN 25% 50 ML IV SCH (13:00)
--- NOTE | 2022-12-30 16:42 | P.CNS ---
Date of Consult: 12/30/22 Reason for Consult: ESRD Requesting Physician: Jem Lobo Chief Complaint: Hyperkalemia, fever History of Present Illness: 47-year-old male with history of ESRD on HD MWF, COPD, GERD, hypertension, hyperlipidemia, BPD presents emerged department for fever. He reports having chills, fever over the course of last 2 days worsened by [facility] for evaluation. Upon arrival to the emergency department patient was noted to have low-grade fever 100.5 heart rate 103 respiratory 22 blood pressure 141/70. Sepsis work-up was initiated, his labs were significant for blood cell count 13.1 hemoglobin 9.6 sodium 126 potassium 6.2 chloride 94 BUN 87 creatinine 1.9 GFR 5 glucose 127. He received IV cefepime, had a chest x-ray and a CT of his abdomen pelvis without contrast, CT was negative for acute findings chest x-ray also negative. Patient became drowsy while in the ED, ABG was performed which was normal. He was given treatment for hyperkalemia, potassium level was rechecked and is now 3.8. He will be admitted for ESRD with hyperkalemia, fever. 23:05 This 47 yrs old Black Male presents to ER via EMS with complaints of Fever, confusion. rt 23:05 Patient presents to the ED with fever, confusion. Patient last had his dialysis on rt Friday. Reportedly was febrile, tachycardic by EMS, was given Tylenol prior to arrival. The patient states that other than the fever, he feels well, no other complaints. Symptoms are moderate severity, no other aggravating alleviating factors. Allergies No Known Allergies Allergy (Unverified 05/31/22 20:46) Home medications list reviewed: Yes Home Medications: Acetaminophen [8 Hour Acetaminophen] 650 mg PO Q6H PRN 06/03/22 Acetaminophen with Codeine [Acetaminophen-Cod #3 Tablet] 1 each PO Q8H PRN 06/03/22 Albuterol Sulfate [Albuterol Sulfate 0.083% Neb Soln] 2.5 mg IH TID PRN 06/03/22 Amino Acids/Protein Hydr/Fiber [Pro-Stat Renal Care Liquid Pkt] 30 ml PO DAILY 06/03/22 Amlodipine [Norvasc*] 10 mg PO DAILY 06/03/22 Atorvastatin Calcium [Lipitor] 40 mg PO BEDTIME 06/03/22 Carvedilol [Coreg] 25 mg PO BID 06/03/22 Cetirizine HCl [All Day Allergy Relief] 10 mg PO DAILY 06/03/22 Ferrous Sulfate [Ferrous Sulfate*] 325 mg PO BID 06/03/22 Gabapentin [Neurontin*] 100 mg PO TID 06/03/22 Hydralazine [Apresoline*] 100 mg PO Q8H 06/03/22 Isosorbide Mononitrate [Isosorbide Mononitrate ER] 30 mg PO DAILY 06/03/22 Lactulose 30 ml PO DAILY 06/03/22 Magnesium [Magnesium Gluconate] 400 mg PO Q48H 06/03/22 Multivitamin 1 tab PO DAILY 06/03/22 Polyethyl Gly 3350 [Glycolax*] 1 packet PO DAILY PRN 06/03/22 Sennosides [Senna Lax] 2 tab PO DAILY 06/03/22 Calcium Acetate [Phoslo*] 3 cap PO TID 12/30/22 Clonidine Patch [Catapres-Tts 1*] 1 patch TD Q7D 12/30/22 Divalproex Sodium [Depakote] 1,000 mg PO BEDTIME 12/30/22 Divalproex Sodium [Depakote] 500 mg PO DAILY 12/30/22 Duloxetine HCl [Drizalma Sprinkle] 60 mg PO DAILY 12/30/22 Losartan Potassium [Cozaar*] 50 mg PO DAILY 12/30/22 Melatonin 5 mg PO BEDTIME PRN 12/30/22 Ondansetron [Zofran (Odt)*] 4 mg PO Q8HP PRN 12/30/22 Sodium Zirconium Cyclosilicate [Lokelma] 10 gm PO T,TH,S 12/30/22 Sucralfate [Carafate*] 1 gm PO TID 12/30/22 cloNIDine HCL [Clonidine HCl] 0.1 mg PO Q8H PRN 12/30/22 - Past Medical/Surgical History Diabetic: Yes -: ESRD on HD (Dr. Munoz/ Jere) -: GERD -: HTN -: HLD -: BPH -: COPD -: Dialysis catheter -: Bilateral upper extremity fistulasno longer in use Psychosocial/ Personal History: Patient currently resides at [facility] - Family History Mother Medical History: Heart disease - Social History Smoking Status: Current every day smoker Alcohol use: No CD- Drugs: No Caffeine use: Yes Place of Residence: [facility] Review of Systems 10-point ROS is otherwise unremarkable General: Weakness, Malaise Physical Examination Temp Pulse Resp BP Pulse Ox 97.5 F 83 19 95/54 L 96 12/30/22 12:00 12/30/22 12:00 12/30/22 12:00 12/30/22 12:00 12/30/22 12:00 General: In no apparent distress HEENT: Atraumatic Neck: Supple Respiratory: Clear to auscultation bilaterally Cardiovascular: No edema, Regular rate/rhythm Gastrointestinal: Soft and benign, Non-distended Musculoskeletal: No clubbing, No contractures Integumentary: No rashes, No cyanosis Laboratory Data (last 24 hrs) 12/30/22 12/29/22 12/29/22 01:46 21:30 21:30 WBC Hgb Hct Plt Count PT 14.5 H INR 1.32 APTT 29.7 Sodium 126 L Potassium 3.8 D 6.2 H* BUN 87 H Creatinine 11.90 H Glucose 108 H Total Bilirubin 0.6 AST 22 ALT 21 Alkaline Phosphatase 78 12/29/22 21:30 WBC 13.10 H Hgb 9.6 L Hct 28.5 L Plt Count 268 PT INR APTT Sodium Potassium BUN Creatinine Glucose Total Bilirubin AST ALT Alkaline Phosphatase Imagings Data: EXAM DESCRIPTION: CT - Abdomen Pelvis Wo Contrast - 12/29/2022 9:53 pm CLINICAL HISTORY: sepsis COMPARISON: Chest Abd Pelvis Wo Con dated 05/29/2022; Chest Angio dated 06/02/2022 TECHNIQUE: Thin cut axial CT imaging of the abdomen and pelvis was performed without IV contrast. Multiplanar reformats were generated and reviewed. All CT scans are performed using dose optimization technique as appropriate and may include automated exposure control or mA/KV adjustment according to patient size. FINDINGS: No suspicious findings in the lung bases. The liver is moderately enlarged, without suspicious focal lesions on noncontrast CT. Spleen, adrenal glands, and pancreas show no suspicious findings. Gallbladder is suboptimally distended limiting evaluation. Atrophic kidneys bilaterally bulla cystic changes. . No evidence of radiopaque calculi or hydroureteronephrosis. No dilated bowel loops or bowel wall thickening. Diffuse fluid opacification within nondistended small and large bowel, nonspecific. No free air, free fluid or inflammatory stranding. No hernia, mass or bulky lymphadenopathy. The urinary bladder is decompressed limiting evaluation. No suspicious bony findings. Prominent varicosities along the body wall, most pronounced along the right lateral chest wall. Bilateral gynecomastia. IMPRESSION: No acute intra-abdominal process. Nonspecific fluid opacification within nondistended small and large bowel, may relate to diarrheal state. Chronic findings as above. Conclusions/Impression: ESRD on HD -Acute HD Hyponatremia Hyperkalemia -Acute HD HTN with CKD/ CHF complicated by hypotension -Hold antihypertensives at this time Hypoalbuminemia -Start Nepro Anemia in CKD -Retacrit TIW CKD MBD -Start Ergo -Start Calcitriol Staph Bacteremia -Continue abx -Remove CVC -Consult ID -Echocardiogram Cigarette Smoker -Recommend cessation ER and Hospitalist notes reviewed Case reviewed with Dr. Lobo Thank you kindly for the consultation Critical Care: Yes
--- NOTE | 2022-12-30 16:48 | EKG ---
Test Date: 2022-12-29 Test Time: 21:24:21 Hand Binder Stripper: SILVINA MEASUREMENT RESULTS: Intervals: Rate: 102 NC: 148 QRSD: 84 QT: 328 QTc: 427 [place]: P: 49 NC: 148 QRS: -6 T: 112 INTERPRETIVE STATEMENTS: Sinus tachycardia Possible Left atrial enlargement Possible Inferior infarct, age undetermined Anteroseptal infarct, age undetermined ST & T wave abnormality, consider lateral ischemia Abnormal ECG Compared to ECG 05/31/2022 17:21:16 ST (T wave) deviation now present Possible ischemia now present Myocardial infarct finding still present Electronically Signed On 12-30-22 16:46:26 CDT by Toni Ríos
[2022-12-30] MEDS ORDERED: DRISDOL (VITAMIN D=ERGOCALCIFEROL) 50000 UNIT CAP PO SCH (17:00)
[2022-12-30] MEDS ORDERED: VANCOMYCIN 1 GM in NA CHLORIDE 0.9% 250 ML IVPB SCH (18:00)
[2022-12-30] MEDS ORDERED: LORazepam 2 MG/ML VIAL IV ONE (19:31)
[2022-12-30 19:42] LABS: Hepatitis B Surface Ab - Quant 118.45 mIU/mL (<8.0); Hepatitis B surface AG Interp. Nonreactive (Nonreactive)
[2022-12-30] MEDS: NEPRO SHAKE 237 ML CAN PO SCH (20:26)
[2022-12-30] MEDS ORDERED: cloNIDine HCL 0.1 MG TAB PO PRN (20:40)
[2022-12-30] MEDS: carvediloL 25 MG TAB PO SCH (20:50)
[2022-12-31] MEDS ORDERED: NOREPINEPHRINE 4 MG in D5W 250 ML IV SCH (01:00)
[2022-12-31] MEDS ORDERED: VASOPRESSIN 80 UNIT in NA CHLORIDE 0.9% 250 ML IV SCH (03:00)
[2022-12-31 05:02] LABS: Absolute Lymphocytes (CBC) 5.7 K/uL (0.7-4.9); Hematocrit 27.8 % (39.6-49.0); Lymphocytes % 31.4 % (15.3-44.8); MCV 91.3 fL (80-100); MPV 9.5 fL (7.6-11.3); Platelets 191 thou/uL (152-406); RBC Red Blood Cell Count 3.04 M/uL (4.33-5.43)
[2022-12-31 05:21] LABS: Magnesium 1.9 mg/dL (1.6-2.4); Phosphorus 5.3 mg/dL (2.5-4.9); Potassium 4.9 mEq/L (3.5-5.1)
[2022-12-31] MEDS ORDERED: NA CHLORIDE 0.9% 250 ML IV ONE (05:56)
[2022-12-31] MEDS ORDERED: MIDODRINE HCL 5 MG TABLET PO ONE (05:58)
[2022-12-31] MEDS: carvediloL 25 MG TAB PO SCH (06:00)
[2022-12-31] MEDS: ALBUMIN HUMAN 25% 50 ML IV SCH ×2 (06:20→06:33)
[2022-12-31] MEDS: NEPRO SHAKE 237 ML CAN PO SCH ×3 (08:27→21:11)
[2022-12-31] MEDS: CALCITROL 0.25 MCG CAP PO SCH (08:27)
--- NOTE | 2022-12-31 08:28 | P.CNS ---
Date of Consult: 12/31/22 Reason for Consult: staph bacteremia Chief Complaint: Hyperkalemia, fever History of Present Illness: Patient is a 47-year-old male with a history of ESRD, COPD, gastroesophageal reflux disease, hypertension, bipolar disorder who presented to the ED with comp laints of fever and chills. ED work-up revealing temperature of 100.5 F, heart rate 103, potassium 6.2, sodium 126. CT abdomen pelvis negative for acute findings. Blood cultures growing coagulase positive Staphylococcus. Infectious disease was consulted. Allergies No Known Allergies Allergy (Unverified 05/31/22 20:46) Home medications list reviewed: Yes Home Medications: Acetaminophen [8 Hour Acetaminophen] 650 mg PO Q6H PRN 06/03/22 Acetaminophen with Codeine [Acetaminophen-Cod #3 Tablet] 1 each PO Q8H PRN 06/03/22 Albuterol Sulfate [Albuterol Sulfate 0.083% Neb Soln] 2.5 mg IH TID PRN 06/03/22 Amino Acids/Protein Hydr/Fiber [Pro-Stat Renal Care Liquid Pkt] 30 ml PO DAILY 06/03/22 Amlodipine [Norvasc*] 10 mg PO DAILY 06/03/22 Atorvastatin Calcium [Lipitor] 40 mg PO BEDTIME 06/03/22 Carvedilol [Coreg] 25 mg PO BID 06/03/22 Cetirizine HCl [All Day Allergy Relief] 10 mg PO DAILY 06/03/22 Ferrous Sulfate [Ferrous Sulfate*] 325 mg PO BID 06/03/22 Gabapentin [Neurontin*] 100 mg PO TID 06/03/22 Hydralazine [Apresoline*] 100 mg PO Q8H 06/03/22 Isosorbide Mononitrate [Isosorbide Mononitrate ER] 30 mg PO DAILY 06/03/22 Lactulose 30 ml PO DAILY 06/03/22 Magnesium [Magnesium Gluconate] 400 mg PO Q48H 06/03/22 Multivitamin 1 tab PO DAILY 06/03/22 Polyethyl Gly 3350 [Glycolax*] 1 packet PO DAILY PRN 06/03/22 Sennosides [Senna Lax] 2 tab PO DAILY 06/03/22 Calcium Acetate [Phoslo*] 3 cap PO TID 12/30/22 Clonidine Patch [Catapres-Tts 1*] 1 patch TD Q7D 12/30/22 Divalproex Sodium [Depakote] 1,000 mg PO BEDTIME 12/30/22 Divalproex Sodium [Depakote] 500 mg PO DAILY 12/30/22 Duloxetine HCl [Drizalma Sprinkle] 60 mg PO DAILY 12/30/22 Losartan Potassium [Cozaar*] 50 mg PO DAILY 12/30/22 Melatonin 5 mg PO BEDTIME PRN 12/30/22 Ondansetron [Zofran (Odt)*] 4 mg PO Q8HP PRN 12/30/22 Sodium Zirconium Cyclosilicate [Lokelma] 10 gm PO T,TH,S 12/30/22 Sucralfate [Carafate*] 1 gm PO TID 12/30/22 cloNIDine HCL [Clonidine HCl] 0.1 mg PO Q8H PRN 12/30/22 - Past Medical/Surgical History Diabetic: Yes -: ESRD on HD (Dr. Munoz/ Je[facility]) -: GERD -: HTN -: HLD -: BPD -: COPD -: Dialysis catheter -: Bilateral upper extremity fistulasno longer in use Psychosocial/ Personal History: Patient currently resides at [facility] - Family History Mother Medical History: Heart disease - Social History Smoking Status: Current every day smoker Alcohol use: No CD- Drugs: No Caffeine use: Yes Place of Residence: Residential Review of Systems Unremarkable Physical Examination Temp Pulse Resp BP Pulse Ox 97.0 F 86 18 96/58 L 100 12/31/22 04:00 12/31/22 06:30 12/31/22 05:25 12/31/22 06:30 12/31/22 06:30 General: In no apparent distress HEENT: Atraumatic, Normocephalic Neck: Supple Respiratory: Clear to auscultation bilaterally, Normal air movement (on room air) Cardiovascular: Normal pulses, Regular rate/rhythm Gastrointestinal: Normal bowel sounds Integumentary: No rashes Laboratory data reviewed Microbiology data reviewed Imagings Data: -Reviewed Conclusions/Impression: Problem list Bacteremia End-stage renal disease on hemodialysis Gastroesophageal reflux disease Hypertension Hyperlipidemia COPD Bipolar disorder Bacteremia -Blood cultures 12/29: Gram-positive cocci in clusters in 4 of 4 bottles -On Rocephin and vancomycin (started 12/30) -Leukocytosis (WBC 18.3). - dialysis catheter suspected source. pending dialysis catheter removal, to be sent for culture - pending echo Recommendations -Continue Rocephin and vancomycin for now -follow-up with final blood culture/sensitivity results and adjust antibiotics as appropriate -Repeat blood cultures -Monitor WBC and fever trends - staph bacteremia, obtain TTE Case discussed with Sherry Jj
[2022-12-31] MEDS: CEFTRIAXONE 1,000 MG in NA CHLORIDE 0.9% 50 ML IVPB SCH (08:54)
[2022-12-31] MEDS: HEPARIN 5000 UNIT/ML 1 ML VIAL SQ SCH ×2 (08:54→21:11)
[2022-12-31] MEDS ORDERED: AMLODIPINE 10 MG TAB PO SCH (09:00)
[2022-12-31] MEDS ORDERED: LOSARTAN POTASSIUM 50 MG TABLET PO SCH (09:00)
[2022-12-31] MEDS ORDERED: HYDRALAZINE HCL 25 MG TABLET PO SCH (09:00)
[2022-12-31] MEDS ORDERED: MIDAZOLAM HCL 2 MG/2 ML INJ ONE (10:35)
[2022-12-31] MEDS ORDERED: propofoL 200 MG/20 ML VIAL IV ONE (10:35)
[2022-12-31] MEDS ORDERED: LIDOCAINE 2% MPF 5 ML VIAL ONE (10:36)
[2022-12-31] MEDS ORDERED: NA CHLORIDE 0.9% 500 ML ONE (10:46)
[2022-12-31] MEDS ORDERED: BUPIVACAINE 0.5% PF 10 ML VIAL ONE (10:49)
--- NOTE | 2022-12-31 11:03 | P.CNS ---
Date of Consult: 12/31/22 Reason for consult: Sepsis with blood cultures positive for staph aureus coag positive History of present illness: Patient is a 47-year-old gentleman with multiple medical problems came in with fever and chills and change in mental status. Patient was found to have sepsis. Work-up revealed abnormal CT scan of the abdomen pelvis. Normal chest x-ray. Tesio catheter was suspected as a source therefore I was consulted for removal. Patient is unable to provide any review of systems. Minimally responsive to verbal stimuli. Review of systems: Otherwise unremarkable Past medical history: Hypertension, diabetes, GERD, COPD, end-stage renal disease Past surgical history: Tesio catheter and bilateral upper extremity fistula that no longer works Allergies: None Social history: Does smoke, no alcohol use Family history: Noncontributory Vital signs: Stable, afebrile currently Physical exam: Somnolent Head and neck exam: No mass Chest: Clear Heart: S1-S2 Abdomen: Soft Extremity: Nontender Neuro: Nonfocal Diagnostic data: Leukocytosis Assessment: Sepsis etiology likely Tesio catheter Plan/recommendation: Case discussed with Dr. Munoz. We will remove the Tesio catheter. Family understands risks, benefits and alternatives and agrees to procedure. Patient will have to have another catheter placed when he is not bacteremic. CC:
[2022-12-31] MEDS ORDERED: CEFAZOLIN SODIUM 2 GM/VIAL ONE (11:08)
[2022-12-31] MEDS: MIDODRINE HCL 5 MG TABLET PO SCH ×2 (11:34→17:00)
--- NOTE | 2022-12-31 12:00 | P.OP ---
Date of Service: 12/31/22 Preop diagnosis: Sepsis, end-stage renal disease, status post left chest Tesio catheter placement Postop diagnosis: Same Procedure performed: Removal of left chest Tesio catheter Surgeon: Km Roe MD Chlorinator: None Estimated blood loss: Minimal Specimen: Catheter tip for culture and sensitivity Findings: As above Anesthesia: MAC Complications: None Drains: None Fluids and blood products: Nonapplicable Disposition: Recovery room Operative note: Patient brought to the OR and placed in supine position. MAC anesthesia begun. Patient prepped and draped in usual sterile fashion. Lidocaine 1% infiltrated locally. 15 blade used to make a ellipse of skin around the entrance of the catheter on the left anterior chest. Subcutaneous tissue divided. Cuff identified and dissected free. Catheter removed. Tip of the catheter sent to microbiology for culture and sensitivity. Wound irrigated and bleeding controlled cautery. 3-0 nylon used to close the wound. Sterile dressing applied. Patient awakened and taken to recovery room in good general condition. CC:
--- NOTE | 2022-12-31 17:27 | P.PN ---
Date of Service: 12/31/22 Subjective Patient's blood pressure dropped last night. Apparently, patient became hypotensive with a blood pressure of 60/40 and patient was started on Levophed. Patient blood cultures were positive; 4 out of 4 bottles. When I came to the ICU this morning nurses informed me that patient had been started on Levophed by nurse practitioner overnight. I went ahead and bolus patient 250 of normal saline x1. I administered IV albumin and oral midodrine. Plan is to remove dialysis access catheter and culture the tip. We will continue with IV antibiotic therapy. Patient's Levophed had been weaned off by this afternoon. We are able to remove hemodialysis access catheter. General surgery does not feel comfortable placing hemodialysis access catheter at this facility. We will transfer over to vascular surgery. Physical Examination -Vitals Reviewed - Physical Exam General: Alert, In no apparent distress, Oriented x3 HEENT: WNL Respiratory: Clear to auscultation bilaterally, Normal air movement Cardiovascular: Regular rate/rhythm, Normal S1 S2 Gastrointestinal: Normal bowel sounds, No tenderness Neurological: No focal deficits Assessment and Plan -Assessment Assessment: 1. Septic shock 2. Line infection 3. Gram-positive bacteremia-4 out of 4 bottles 4. ESRD on HD MWF with hyperkalemia 5. Metabolic encephalopathy/toxic encephalopathy 6. Hypertension 7. History of COPD Plan Plan: 1. Septic shock; continue with IV antibiotics and plan to remove hemodialysis access catheter with culturing the tip. Patient was on Levophed but this has b een weaned off. General surgery removed hemodialysis access catheter. But in order for this to be replaced patient will need to be transferred to vascular surgery. Pending transfer to [facility] in [place] 2. Line infection; as above 3. Gram-positive bacteremia-4 out of 4 bottles; as above 4. ESRD on HD MWF with hyperkalemia; hemodialysis per nephrology 5. Metabolic encephalopathy/toxic encephalopathy; most likely related to bacteremia. Once we get infection controlled this should resolve. Procalcitonin level is significantly elevated. 6. Hypertension; patient hypotensive at this time. Hold all antihypertensives 7. History of COPD; continue inhaler therapy
[2022-12-31] MEDS ORDERED: NOREPINEPHRINE BITARTRATE/D5W 4 MG/250 ML BAG IV SCH (18:15)
--- NOTE | 2022-12-31 19:52 | P.PN ---
Date of Service: 12/31/22 Vital Signs Temp Pulse Resp BP Pulse Ox 98 F 59 13 98/54 L 95 12/31/22 12:31 12/31/22 18:30 12/31/22 18:30 12/31/22 18:30 12/31/22 18:30 Medications Acetaminophen (Acetaminophen 500 Mg Tab) 500 mg PO Q4HP PRN PRN Reason: Pain scale 2-4 (Mild) Last Admin: 12/30/22 08:14 Dose: 500 mg Calcitriol (Calcitrol 0.25 Mcg Cap) 0.5 mcg PO DAILY MARCIO Last Admin: 12/31/22 08:27 Dose: Not Given Clonidine HCl (Clonidine Hcl 0.1 Mg Tab) 0.1 mg PO Q8H PRN PRN Reason: Titrate to SBP (MUST DEFINE) Enteral Nutritional Formula (Nepro Shake 237 Ml Can) 240 ml PO TID MARCIO Last Admin: 12/31/22 14:00 Dose: Not Given Epoetin Arnaldo (Epoetin Arnaldo 10,000 Unit/Ml Vial) 10,000 unit IV EVERY HD MARCIO Ergocalciferol (Drisdol (Vitamin D=Ergocalciferol) 15322 Unit Cap) 50,000 unit PO Q48H MARCIO Stop: 01/01/23 17:01 Last Admin: 12/30/22 17:33 Dose: 50,000 unit Heparin Sodium (Porcine) (Heparin 5000 Unit/Ml 1 Ml Vial) 5,000 unit SQ Q12HR MARCIO Last Admin: 12/31/22 08:54 Dose: 5,000 unit Heparin Sodium (Porcine) (Heparin 1,000 Unit/Ml Vial) 6,000 unit IV EVERY HD PRN PRN Reason: AFTER EACH Last Admin: 12/30/22 20:15 Dose: 6,000 unit Ceftriaxone Sodium 1,000 mg/ (Sodium Chloride) 50 mls @ 100 mls/hr IVPB DAILY MARCIO; Protocol Last Admin: 12/31/22 08:54 Dose: 50 mls Vancomycin HCl 1 gm/ Sodium (Chloride) 250 mls @ 250 mls/hr IVPB AFTER EACH DIALYSIS MARCIO; Protocol Albumin Human (Albumin 25%) 50 mls @ 100 mls/hr IV EVERY HD MARCIO Vasopressin 80 unit/ Sodium (Chloride) 254 mls @ 0 mls/hr IV TITR MARCIO; Protocol Norepinephrine/Dextrose (Levophed 4 Mg/250 Ml-D5w) 4 mg in 250 mls @ 31.978 mls/hr IV TITR MARCIO; Protocol Mannitol (Mannitol 25% 12.5 Gm/50 Ml Vial) 12.5 gm IV EVERY HD PRN PRN Reason: Titrate to SBP (MUST DEFINE) Midodrine (Midodrine Hcl 5 Mg Tablet) 5 mg PO TID@0600,1200,1700 [facility] Last Admin: 12/31/22 17:00 Dose: Not Given Ondansetron HCl (Ondansetron 4 Mg/2 Ml Vial) 4 mg IV Q6HP PRN PRN Reason: NAUSEA / VOMITING Sodium Chloride (Flush Normal Saline 10 Ml) 10 ml IV BID [facility] Last Admin: 12/31/22 08:54 Dose: 10 ml Microbiology Results 12/29/22 21:30 Blood - Blood Aerobic Blood Culture - Preliminary 12/29/22 21:30 Blood - Blood Blood Culture Gram Stain - Final 12/29/22 21:30 Blood - Blood Anaerobic Blood Culture - Preliminary 12/29/22 21:30 Blood - Blood Gram Stain - Final 12/29/22 21:45 Blood - Blood Aerobic Blood Culture - Preliminary 12/29/22 21:45 Blood - Blood Blood Culture Gram Stain - Final 12/29/22 21:45 Blood - Blood Anaerobic Blood Culture - Preliminary 12/29/22 21:45 Blood - Blood Gram Stain - Final 12/29/22 23:25 Nasopharnyx Influenza Type A Antigen Screen - Final 12/29/22 23:25 Nasopharnyx Influenza Type B Antigen Screen - Final Assessment/ Plan: Nephrology No dyspnea No chest pain Fatigue and weakness Somnolent No acute events overnight Vitals, medications, blood work and imaging reviewed in the chart. General: In no apparent distress HEENT: Atraumatic Neck: Supple Respiratory: Clear to auscultation bilaterally Cardiovascular: No edema, Regular rate/rhythm Gastrointestinal: Soft and benign, Non-distended Musculoskeletal: No clubbing, No contractures Integumentary: No rashes, No cyanosis Laboratory Data (last 24 hrs) 12/30/22 12/29/22 12/29/22 01:46 21:30 21:30 WBC Hgb Hct Plt Count PT 14.5 H INR 1.32 APTT 29.7 Sodium 126 L Potassium 3.8 D 6.2 H* BUN 87 H Creatinine 11.90 H Glucose 108 H Total Bilirubin 0.6 AST 22 ALT 21 Alkaline Phosphatase 78 12/29/22 21:30 WBC 13.10 H Hgb 9.6 L Hct 28.5 L Plt Count 268 PT INR APTT Sodium Potassium BUN Creatinine Glucose Total Bilirubin AST ALT Alkaline Phosphatase Imagings Data: EXAM DESCRIPTION: CT - Abdomen Pelvis Wo Contrast - 12/29/2022 9:53 pm CLINICAL HISTORY: sepsis COMPARISON: Chest Abd Pelvis Wo Con dated 05/29/2022; Chest Angio dated 06/02/2022 TECHNIQUE: Thin cut axial CT imaging of the abdomen and pelvis was performed without IV contrast. Multiplanar reformats were generated and reviewed. All CT scans are performed using dose optimization technique as appropriate and may include automated exposure control or mA/KV adjustment according to patient size. FINDINGS: No suspicious findings in the lung bases. The liver is moderately enlarged, without suspicious focal lesions on noncontrast CT. Spleen, adrenal glands, and pancreas show no suspicious findings. Gallbladder is suboptimally distended limiting evaluation. Atrophic kidneys bilaterally bulla cystic changes. . No evidence of radiopaque calculi or hydroureteronephrosis. No dilated bowel loops or bowel wall thickening. Diffuse fluid opacification within nondistended small and large bowel, nonspecific. No free air, free fluid or inflammatory stranding. No hernia, mass or bulky lymphadenopathy. The urinary bladder is decompressed limiting evaluation. No suspicious bony findings. Prominent varicosities along the body wall, most pronounced along the right lateral chest wall. Bilateral gynecomastia. IMPRESSION: No acute intra-abdominal process. Nonspecific fluid opacification within nondistended small and large bowel, may relate to diarrheal state. Chronic findings as above. Conclusions/Impression: ESRD on HD -HD TIW Hyponatremia Hyperkalemia -HD TIW HTN with CKD/ CHF complicated by hypotension -Hold antihypertensives at this time Hypoalbuminemia -Continue Nepro Anemia in CKD -Retacrit TIW CKD MBD -Continue Ergo -Continue Calcitriol Staph Bacteremia -Continue abx -CVC removed today -ID consult pending -Echocardiogram Cigarette Smoker -Recommend cessation Hospitalist note reviewed Case reviewed with Dr. Lobo & Dr. Roe Plan to transfer the patient for vascular evaluation >30min patient care
[2023-01-01 05:10] LABS: Absolute Lymphocytes (CBC) 0.5 K/uL (0.7-4.9); Hematocrit 26.5 % (39.6-49.0); Lymphocytes % 2.7 % (15.3-44.8); MCV 90.9 fL (80-100); MPV 8.9 fL (7.6-11.3); Platelets 166 thou/uL (152-406); RBC Red Blood Cell Count 2.92 M/uL (4.33-5.43)
[2023-01-01] MEDS: MIDODRINE HCL 5 MG TABLET PO SCH (05:46)
[2023-01-01 06:12] LABS: Albumin 2.1 g/dL (3.4-5.0); Bilirubin Total 0.6 mg/dL (0.2-1.0); Magnesium 2.1 mg/dL (1.6-2.4); Phosphorus 5.3 mg/dL (2.5-4.9); Potassium 4.6 mEq/L (3.5-5.1); Protein, Total 7.7 g/dL (6.4-8.2)
--- NOTE | 2023-01-01 08:03 | P.PN ---
Date of Service: 01/01/23 Subjective Patient is hemodynamically stable. Clinically doing well. Awaiting for transfer to a tertiary care facility. Patient is much more awake and alert. Overnight ICU nurse did tell me that they started Levophed for just about an hour. However, blood pressure came right back up. We will continue monitoring patient closely. Awaiting for transfer to [facility]. Physical Examination -Vitals Reviewed - Physical Exam General: Alert, In no apparent distress, Oriented x3 HEENT: WNL Respiratory: Clear to auscultation bilaterally, Normal air movement Cardiovascular: Regular rate/rhythm, Normal S1 S2 Gastrointestinal: Normal bowel sounds, No tenderness Neurological: No focal deficits Assessment and Plan -Assessment Assessment: 1. Septic shock 2. Line infection 3. Gram-positive bacteremia-4 out of 4 bottles 4. ESRD on HD MWF with hyperkalemia 5. Metabolic encephalopathy/toxic encephalopathy 6. Hypertension 7. History of COPD Plan Plan: 1. Septic shock; continue with IV antibiotics and plan to remove hemodialysis access catheter with culturing the tip. Patient was on Levophed but this has been weaned off. General surgery removed hemodialysis access catheter. But in order for this to be replaced patient will need to be transferred to vascular surgery. Pending transfer to [facility] 2. Line infection; as above 3. Gram-positive bacteremia-4 out of 4 bottles; as above 4. ESRD on HD MWF with hyperkalemia; hemodialysis per nephrology 5. Metabolic encephalopathy/toxic encephalopathy; most likely related to bacteremia. Once we get infection controlled this should resolve. Procalcitonin level is significantly elevated. 6. Hypertension; patient hypotensive at this time. Hold all antihypertensives 7. History of COPD; continue inhaler therapy
[2023-01-01 08:40] VITALS: O2SAT 98
[2023-01-01] MEDS: CALCITROL 0.25 MCG CAP PO SCH (08:57)
[2023-01-01] MEDS: NEPRO SHAKE 237 ML CAN PO SCH (08:57)
[2023-01-01] MEDS: CEFTRIAXONE 1,000 MG in NA CHLORIDE 0.9% 50 ML IVPB SCH (08:57)
[2023-01-01] MEDS: HEPARIN 5000 UNIT/ML 1 ML VIAL SQ SCH (08:57)
--- NOTE | 2023-01-01 09:02 | P.PN ---
Date of Service: 01/01/23 Chief Complaint: Hyperkalemia, fever Subjective: Patient seen and examined in ICU. In no apparent distress, breathing comfortably on room air. No acute events reported overnight. Pending transfer for AVF repair. Physical Examination Temp Pulse Resp BP Pulse Ox 97.4 F 78 15 92/66 95 01/01/23 04:00 01/01/23 07:00 01/01/23 07:00 01/01/23 07:00 01/01/23 07:00 General: In no apparent distress HEENT: Atraumatic, Normocephalic Neck: Supple. No JVD. Respiratory: Clear to auscultation bilaterally, Normal air movement. Cardiovascular: Normal pulses, Regular rate/rhythm. bilateral upper extremity AV fistula. Gastrointestinal: Normal bowel sounds. non-tender. Integumentary: No rashes. Laboratory data - reviewed Microbiology data - reviewed Imagings Data: -Reviewed Medications list: Reviewed Assessment and Plan Problem list Bacteremia End-stage renal disease on hemodialysis Gastroesophageal reflux disease Hypertension Hyperlipidemia COPD Bipolar disorder Hemodialysis Catheter-related Bloodstream Infection (POA) MRSA Bacteremia -Blood cultures 12/29: Methicillin-resistant Staphylococcus aureus (MRSA) in 4 of 4 bottles. Susceptible to Vancomycin. -On Rocephin and vancomycin (started 12/30) -Leukocytosis (WBC 18.3 -> 18.7). - dialysis catheter suspected source. removed on 12/31. - pending echo - Repeat blood culture 12/31: Pending - ESRD: Nephrology on case Recommendations - Continue Vancomycin for at least 2 weeks following negative blood culture result. - Follow up with repeat blood culture results. - obtain echo to evaluate for vegetation - Monitor WBC and fever trends Pending transfer to tertiary facility for AV fistula repair Case discussed with Sherry Jj
[2023-01-01 12:16] VITALS: BP 117/65; TEMP 98.9
[2023-01-01] MEDS ORDERED: VANCOMYCIN 1 GM in NA CHLORIDE 0.9% 250 ML IVPB SCH (18:00)
--- NOTE | 2023-01-01 22:20 | P.PN ---
Date of Service: 01/01/23 Vital Signs Temp Pulse Resp BP Pulse Ox 98.9 F 88 22 H 117/65 96 01/01/23 12:00 01/01/23 12:00 01/01/23 08:00 01/01/23 12:00 01/01/23 12:00 Microbiology Results 12/29/22 21:30 Blood - Blood Aerobic Blood Culture - Final Meth Resistant Staph Aureus 12/29/22 21:30 Blood - Blood Blood Culture Gram Stain - Final 12/29/22 21:30 Blood - Blood Anaerobic Blood Culture - Final Meth Resistant Staph Aureus 12/29/22 21:30 Blood - Blood Gram Stain - Final 12/29/22 21:45 Blood - Blood Aerobic Blood Culture - Final Meth Resistant Staph Aureus 12/29/22 21:45 Blood - Blood Blood Culture Gram Stain - Final 12/29/22 21:45 Blood - Blood Anaerobic Blood Culture - Final Meth Resistant Staph Aureus 12/29/22 21:45 Blood - Blood Gram Stain - Final 12/29/22 23:25 Nasopharnyx Influenza Type A Antigen Screen - Final 12/29/22 23:25 Nasopharnyx Influenza Type B Antigen Screen - Final Assessment/ Plan: Nephrology No dyspnea No chest pain Fatigue and weakness Somnolent No acute events overnight Vitals, medications, blood work and imaging reviewed in the chart. General: In no apparent distress HEENT: Atraumatic Neck: Supple Respiratory: Clear to auscultation bilaterally Cardiovascular: No edema, Regular rate/rhythm Gastrointestinal: Soft and benign, Non-distended Musculoskeletal: No clubbing, No contractures Integumentary: No rashes, No cyanosis Laboratory Data (last 24 hrs) 12/30/22 12/29/22 12/29/22 01:46 21:30 21:30 WBC Hgb Hct Plt Count PT 14.5 H INR 1.32 APTT 29.7 Sodium 126 L Potassium 3.8 D 6.2 H* BUN 87 H Creatinine 11.90 H Glucose 108 H Total Bilirubin 0.6 AST 22 ALT 21 Alkaline Phosphatase 78 12/29/22 21:30 WBC 13.10 H Hgb 9.6 L Hct 28.5 L Plt Count 268 PT INR APTT Sodium Potassium BUN Creatinine Glucose Total Bilirubin AST ALT Alkaline Phosphatase Imagings Data: EXAM DESCRIPTION: CT - Abdomen Pelvis Wo Contrast - 12/29/2022 9:53 pm CLINICAL HISTORY: sepsis COMPARISON: Chest Abd Pelvis Wo Con dated 05/29/2022; Chest Angio dated 06/02/2022 TECHNIQUE: Thin cut axial CT imaging of the abdomen and pelvis was performed without IV contrast. Multiplanar reformats were generated and reviewed. All CT scans are performed using dose optimization technique as appropriate and may include automated exposure control or mA/KV adjustment according to patient size. FINDINGS: No suspicious findings in the lung bases. The liver is moderately enlarged, without suspicious focal lesions on noncontrast CT. Spleen, adrenal glands, and pancreas show no suspicious findings. Gallbladder is suboptimally distended limiting evaluation. Atrophic kidneys bilaterally bulla cystic changes. . No evidence of radiopaque calculi or hydroureteronephrosis. No dilated bowel loops or bowel wall thickening. Diffuse fluid opacification within nondistended small and large bowel, nonspecific. No free air, free fluid or inflammatory stranding. No hernia, mass or bulky lymphadenopathy. The urinary bladder is decompressed limiting evaluation. No suspicious bony findings. Prominent varicosities along the body wall, most pronounced along the right lateral chest wall. Bilateral gynecomastia. IMPRESSION: No acute intra-abdominal process. Nonspecific fluid opacification within nondistended small and large bowel, may relate to diarrheal state. Chronic findings as above. Conclusions/Impression: ESRD on HD -HD TIW Hyponatremia Hyperkalemia -HD TIW HTN with CKD/ CHF complicated by hypotension -Hold antihypertensives at this time Hypoalbuminemia -Continue Nepro Anemia in CKD -Retacrit TIW CKD MBD -Continue Ergo -Continue Calcitriol Staph Bacteremia -Continue abx; case reviewed with pharmacy -CVC removed yesterday -Case reviewed with ID -Echocardiogram pending Cigarette Smoker -Recommend cessation Hospitalist note reviewed Case reviewed with Dr. Lobo Transfer pending >30min patient care
--- NOTE | 2023-01-02 07:06 | ECHO ---
HEIGHT: 5 ft 6 in WEIGHT: 181 lb 7.047 oz DATE OF STUDY: 01/01/[address]: Zeus Munoz DO 2-DIMENSIONAL: YES M.MODE: YES DOPPLER: YES COLOR FLOW: YES TDS: PORTABLE: YES DEFINITY: BUBBLE STUDY: DIAGNOSIS: STAPH BATEREMIA CARDIAC HISTORY: CATHERIZATION: NO SURGERY: NO PROSTHETIC VALVE: NO PACEMAKER: NO MEASUREMENTS (cm) DIASTOLIC (NORMALS) SYSTOLIC (NORMALS) IVSd 1.4 (0.6-1.2) LA Diam 2.7 (1.9-4.0) LVEF 64% LVIDd 3.8 (3.5-5.7) LVIDs 2.5 (2.0-3.5) %FS 35% LVPWd 1.5 (0.6-1.2) Ao Diam 3.2 (2.0-3.7) 2 DIMENSIONAL ASSESSMENT: RIGHT ATRIUM: NORMAL LEFT ATRIUM: NORMAL RIGHT VENTRICLE: NORMAL LEFT VENTRICLE: NORMAL TRICUSPID VALVE: NORMAL MITRAL VALVE: LARGE VEGETATION PULMONIC VALVE: NORMAL AORTIC VALVE: NORMAL PERICARDIAL EFFUSION: NONE AORTIC ROOT: NORMAL LEFT VENTRICULAR WALL MOTION: NORMAL DOPPLER/COLOR FLOW: SEE BELOW COMMENTS: 1. NORMAL LEFT VENTRICULAR EJECTION FRACTION 60-65% WITH NORMAL WALL MOTION 2. LARGE VEGETATION INVOLVING THE ANTERIOR LEAFLET OF MITRAL VALVE WITH MILD MITRAL REGURGITATION SUGGESTIVE OF MITRAL VALVE INDOCARDITIS, RECOMMEND COMPUTERIZED TOMOGRAPHY SURGERY 3. MILD MITRAL REGURGITATION 4. DR. DIANE AND DR. HAWK WERE NOTIFIED. TECHNOLOGIST: SABINO [id number]
[2023-01-06] MEDS ORDERED: CLONIDINE 0.1 MG/PATCH TD SCH (09:00)
== END 2023-01-01 12:30 | disposition short-term general hospital (02) | DRG 314 ==
LOC: ER 20:58 → ERHOLD 12-30 02:33 → 3RD-ICU 12-30 03:30
PROVIDERS: ADMIT Hospitalist; ATTEND Hospitalist
PROC: 5A1D70Z Performance of Urinary Filtration, Intermittent, Less than 6 Hours Per Day (ICD-10-PCS; 2022-12-30)
PROC: 0JPT0XZ Removal of Tunneled Vascular Access Device from Trunk Subcutaneous Tissue and Fascia, Open Approach (ICD-10-PCS; principal; 2022-12-31 11:15)
DX: T80.211A Bloodstream infection due to central venous catheter, initial encounter (principal); A41.02 Sepsis due to Methicillin resistant Staphylococcus aureus; G92.8 Other toxic encephalopathy; N18.6 End stage renal disease; R65.21 Severe sepsis with septic shock; E87.1 Hypo-osmolality and hyponatremia; I13.2 Hypertensive heart and chronic kidney disease with heart failure and with stage 5 chronic kidney disease, or end stage renal disease; I50.9 Heart failure, unspecified; D63.1 Anemia in chronic kidney disease; E87.5 Hyperkalemia; E78.5 Hyperlipidemia, unspecified; F31.9 Bipolar disorder, unspecified; N62 Hypertrophy of breast; E88.09 Other disorders of plasma-protein metabolism, not elsewhere classified; N40.0 Benign prostatic hyperplasia without lower urinary tract symptoms; K21.9 Gastro-esophageal reflux disease without esophagitis; J44.9 Chronic obstructive pulmonary disease, unspecified; F17.210 Nicotine dependence, cigarettes, uncomplicated; Z99.2 Dependence on renal dialysis; Z79.82 Long term (current) use of aspirin; Z86.718 Personal history of other venous thrombosis and embolism; Z79.899 Other long term (current) drug therapy; Z20.822 Contact with and (suspected) exposure to COVID-19; Y84.8 Other medical procedures as the cause of abnormal reaction of the patient, or of later complication, without mention of misadventure at the time of the procedure
CPT/HCPCS: 36415; 36600; 71045; 74176; 80048; 80053; 80202; 82533; 82805; 82947; 83605; 83735; 83880; 84100; 84132; 84145; 84439; 84443; 85025; 85610; 85730; 86140; 86706; 87040; 87070; 87077; 87186; 87205; 87340; 87635; 87804; 90935; 93005; 93306; 99285; J0612; J0692; J0696; J1644; J1815; J2001; J2250; J2704; J7040; J7050; J7060; J7613; P9047

== ENCOUNTER → 2023-04-29 | Emergency (ER) | payer OTHER ==
--- NOTE | 2023-04-30 00:15 | ER ---
Nurse's Notes [facility] Name: Velasquez Cruz Age: 48 yrs Sex: Male : 1975 Arrival Date: 04/29/2023 Time: 22:16 Bed 19 Private MD: Diagnosis: Chest pain, unspecified Presentation: 04/29 22:19 Chief complaint: EMS states: He started having chest pain around [id number]. He doesn't vc1 want anything done except for an xray. Vitals were stable upon arrival. 22:21 Coronavirus screen: Vaccine status: Patient reports receiving the 2nd dose of the covid vc1 vaccine. Client denies travel out of the [place] in the last 14 days. At this time, the client does not indicate any symptoms associated with coronavirus-19. Ebola Screen: Patient negative for fever greater than or equal to 101.5 degrees Fahrenheit, and additional compatible Ebola Virus Disease symptoms Patient denies exposure to infectious person. Patient denies travel to an Ebola-affected area in the 21 days before illness onset. No symptoms or risks identified at this time. Initial Sepsis Screen: Does the patient meet any 2 criteria? No. Patient's initial sepsis screen is negative. Does the patient have a suspected source of infection? No. Patient's initial sepsis screen is negative. Risk Assessment: Do you want to hurt yourself or someone else? Patient reports no desire to harm self or others. Onset of symptoms was April 29, 2023 at 13:00. Care prior to arrival: None. Activity prior to arrival: None. Transition of care: patient was received from another setting of care (long-term care facility), [facility]. 22:21 Method Of Arrival: EMS: [facility] vc1 22:21 Acuity: HEAVEN 3 vc1 Triage Assessment: 22:29 General: Appears in no apparent distress. uncomfortable, Behavior is uncooperative, vc1 Refusing IV and labs. Pain: Complains of pain in chest Pain does not radiate. Pain currently is 6 out of 10 on a pain scale. at worst was 10 out of 10 on a pain scale. Quality of pain is described as sharp, Pain began suddenly, 8-9 hours ago Is episodic, Alleviated by rest, relaxation, Aggravated by repositioning, Deep breaths, laying flat Noted to be grimacing, guarding, resistant to movement, Also complains of no other associated symptoms. EENT: No deficits noted. No signs and/or symptoms were reported regarding the EENT system. Neuro: Level of Consciousness is awake, alert, obeys commands, Oriented to person, place, time, situation, Appropriate for age. Cardiovascular: Reports chest pain, Denies shortness of breath, Chest pain is described as severe, quality is sharp, began 8-9 hours ago is aggravated by activity, breathing, Dialysis shunt: in the right femoral area. Respiratory: Reports pain with respiration since [id number] Pain is 6 out of 10 on a pain scale. Airway is patent Respiratory effort is even, unlabored, Respiratory pattern is regular, symmetrical, the patient has mild shortness of breath. GI: No deficits noted. No signs and/or symptoms were reported involving the gastrointestinal system. : No deficits noted. No signs and/or symptoms were reported regarding the genitourinary system. Derm: No deficits noted. No signs and/or symptoms reported regarding the dermatologic system. Musculoskeletal: Reports pain in chest. Historical: - Allergies: 22:24 No Known Allergies; vc1 - PMHx: 22:24 Anemia; Anxiety; Bipolar disorder; Cocaine Abuse; COPD; DVT; HD MWF; HEART FAILURE; vc1 Hypertensive disorder; End stage renal disease; Mild cognitive impairment; Thrombophilia; - PSHx: 22:24 Thoracotomy; vc1 - Immunization history:: Adult Immunizations up to date, Client reports receiving the 2nd dose of the Covid vaccine, Flu vaccine is up to date. - Social history:: Smoking status: Patient reports the use of cigarette tobacco products, 7-8/day. Screenin:29 [facility] ED Fall Risk Assessment (Adult) History of falling in the last 3 months, vc1 including since admission No falls in past 3 months (0 pts) Confusion or Disorientation No (0 pts) Intoxicated or Sedated No (0 pts) Impaired Gait Yes (1 pt) Mobility Assist Device Used Yes (1 pt) Altered Elimination No (0 pt) Score/Fall Risk Level 0 - 2 = Low Risk Oriented to surroundings, Maintained a safe environment, Educated pt \T\ family on fall prevention, incl call for assistance when getting out of bed. Abuse screen: Denies threats or abuse. Nutritional screening: No deficits noted. Tuberculosis screening: No symptoms or risk factors identified. Assessment: 22:49 Reassessment: Assumed care of patient at this time. Pt states that his chest pain has cm10 resolved. pt also reports that he does not want any blood work done he would just like an EKG and chest x-ray. Pain: Denies pain. 04/30 00:26 Reassessment: [facility] called to set up transportation for patient. cm10 Report given. Per nurse will call back when transport has been set up. Vital Signs: 04/29 22:21 BP 148 / 110; Pulse 91; Resp 16; Temp 99.5; Pulse Ox 96% ; Weight 77.11 kg; Height 5 vc1 ft. 8 in. ; Pain 6/10; 23:00 BP 137 / 98; Pulse 94; Resp 18; Pulse Ox 98% on R/A; cm10 04/30 00:00 BP 158 / 106; Pulse 100; Resp 16; cm10 01:00 BP 133 / 92; Pulse 94; Resp 16; Pulse Ox 92% on R/A; cm10 04/29 22:21 Body Mass Index 25.85 (77.11 kg, 172.72 cm) vc1 04/29 22:21 Pain Scale: Adult vc1 ED Course: 04/29 22:17 Patient arrived in ED. jj6 22:20 [facility]C [facility]. kb 22:20 Deniz Zapata MD is Attending Physician. kb 22:24 Triage completed. vc1 22:29 Arm band placed on right wrist. vc1 22:35 Patient has correct armband on for positive identification. Bed in low position. Call vc1 light in reach. Side rails up X2. Client placed on continuous cardiac and pulse oximetry monitoring. NIBP monitoring applied. 22:36 Patient maintains SpO2 saturation greater than 95% on room air. vc1 22:52 Chest Single View XRAY In Process Unspecified. EDMS 23:43 Ayse Perez, RN is Primary Nurse. cm10 04/30 02:30 No provider procedures requiring assistance completed. Patient did not have IV access cm10 during this emergency room visit. 02:31 Provided Education on: Follow-up instructions. . cm10 Administered Medications: No medications were administered Medication: 04/29 22:36 VIS not applicable for this client. vc1 Outcome: 04/30 00:14 Discharge ordered by MD. kb 02:30 Discharged to home via ambulance, Pt leaving via [facility]. Report Given to geovanny Chad NicoleJavid 02:30 Condition: good 02:30 Discharge instructions given to patient, Instructed on discharge instructions, follow up and referral plans. Demonstrated understanding of instructions, follow-up care, 02:31 Patient left the ED. cm10 Signatures: Dispatcher [employer] EDAlisa Chirinos FNP-C FNP-Mara Bennett jj6 Nat Baeza RN RN vc1 Ayse Perez RN RN cm10 Corrections: (The following items were deleted from the chart) 00:27 00:26 Reassessment: Aysha small
--- NOTE | 2023-04-30 00:15 | EDPHYS ---
Physician Documentation [facility] Name: Velasquez Cruz Age: 48 yrs Sex: Male : 1975 Arrival Date: 04/29/2023 Time: 22:16 Bed 19 Private MD: ED Physician Deniz Zapata HPI: 04/30 00:27 This 48 yrs old Black Male presents to ER via EMS with complaints of Chest Pain, kb Shortness Of Breath. 00:27 Patient is a 48-year-old male who presents for chest pain that started this afternoon. kb States he believes he slept wrong because the pain has been there since he woke up. Reports pain is worse with deep breath and movement. Patient refuses any needle pokes including IV and blood work. Discussed recommendation of blood work, possible CT scan and admission. Patient agrees to EKG and chest x-ray only. Refuses all other treatment.. Historical: - Allergies: 04/29 22:24 No Known Allergies; vc1 - PMHx: 22:24 Anemia; Anxiety; Bipolar disorder; Cocaine Abuse; COPD; DVT; HD MWF; HEART FAILURE; vc1 Hypertensive disorder; End stage renal disease; Mild cognitive impairment; Thrombophilia; - PSHx: 22:24 Thoracotomy; vc1 - Immunization history:: Adult Immunizations up to date, Client reports receiving the 2nd dose of the Covid vaccine, Flu vaccine is up to date. - Social history:: Smoking status: Patient reports the use of cigarette tobacco products, 7-8/day. ROS: 04/30 00:27 Constitutional: Negative for fever, chills, and weight loss, kb Cardiovascular: Positive for chest pain, All other systems are negative, Exam: 00:27 Constitutional: This is a well developed, well nourished patient who is awake, alert, kb and in no acute distress. Head/Face: Normocephalic, atraumatic. ENT: Moist Mucous membranes Cardiovascular: Regular rate Respiratory: Respirations even and unlabored. No increased work of breathing. Talking in full sentences Skin: Warm, dry with normal turgor. Normal color. MS/ Extremity: Pulses equal, no cyanosis. Neurovascular intact. Full, normal range of motion. Neuro: Awake and alert, GCS 15, oriented to person, place, time, and situation. Vital Signs: 04/29 22:21 BP 148 / 110; Pulse 91; Resp 16; Temp 99.5; Pulse Ox 96% ; Weight 77.11 kg; Height 5 vc1 ft. 8 in. ; Pain 6/10; 23:00 BP 137 / 98; Pulse 94; Resp 18; Pulse Ox 98% on R/A; cm10 04/30 00:00 BP 158 / 106; Pulse 100; Resp 16; cm10 01:00 BP 133 / 92; Pulse 94; Resp 16; Pulse Ox 92% on R/A; cm10 04/29 22:21 Body Mass Index 25.85 (77.11 kg, 172.72 cm) vc1 04/29 22:21 Pain Scale: Adult vc1 MDM: 04/29 22:20 Patient medically screened. kb 04/30 00:27 Differential diagnosis: abnormal EKG, acute myocardial infarction, coronary artery kb disease chest wall pain. Data reviewed: vital signs, nurses notes. Consideration of Admission/Observation Escalation of care including admission/observation considered. Patient refuses admission or any other treatment. Would like to go back to the assisted living. Test considered but Not performed: Labs: CBC, BMP, BNP, troponin considered but patient refuses any blood work at this time. States if blood work is needed it can be done tomorrow at dialysis. Historians other than the Patient: EMS: [facility]. Care significantly affected by the following chronic conditions: Hypertension, Congestive Heart Failure, Chronic Kidney Disease. Counseling: I had a detailed discussion with the patient and/or guardian regarding the historical points, exam findings, and any diagnostic results supporting the discharge/admit diagnosis, radiology results, the need for outpatient follow up, a family practitioner, to return to the emergency department if symptoms worsen or persist or if there are any questions or concerns that arise at home. 00:30 Refusal of service: The patient/guardian displays adequate decision making capability kb and despite a detailed discussion of alternatives, benefits, risks, and consequences refuses: all lab tests. 04/29 22:20 Order name: Chest Single View XRAY kb 04/29 22:20 Order name: EKG; Complete Time: 22:21 kb 04/29 22:20 Order name: EKG - Nurse/Tech; Complete Time: 22:49 kb Administered Medications: No medications were administered Disposition: 01:37 Co-signature as Attending Physician, Deniz Zapata MD I agree with the assessment sp4 and plan of care. I reviewed the patient's care provided by the Advanced Practice Provider and agree with the diagnosis and treatment plan. Disposition Summary: 04/30/23 00:14 Discharge Ordered Notes: Location: Home kb Condition: Stable kb Diagnosis - Chest pain, unspecified kb Followup: kb - With: Emergency Department - When: As needed - Reason: Worsening of condition Followup: kb - With: Private Physician - When: 2 - 3 days - Reason: Recheck today's complaints, Continuance of care, Re-evaluation by your physician Discharge Instructions: - Discharge Summary Sheet kb - Nonspecific Chest Pain, Adult, [id number] kb Forms: - Medication Reconciliation Form kb - Thank You Letter kb - Antibiotic Education kb - Prescription Opioid Use kb - Patient Portal Instructions kb - Leadership Thank You Letter kb Signatures: Dispatcher [employer] EDAlisa Chirinos, JESSICA-C TUBE HANDLER-Nat Fung RN RN vcDeniz Uribe MD MD sp4
--- NOTE | 2023-04-30 11:42 | RAD REPORT ---
EXAM DESCRIPTION: RAD - Chest Single View - 04/29/2023 10:50 pm CLINICAL HISTORY: Chest pain. TECHNIQUE: AP portable CXR upright on 04/29/2023 at 22:45 hours COMPARISON: None. FINDINGS: Heart: There is moderately severe cardiomegaly. Mediastinal Structures: Poststernotomy and valvuloplasty changes are redemonstrated. Endovascular stents are noted within the aortic arch and in the subclavian vessel on the right. Lung Blood: No active disease. Pulmonary Vascularity: There is evidence of pulmonary vascular congestion. Pleural Space: There is a small right pleural effusion. Bony Structures: The bony structures appear intact. There is sideplate and screw fixation devices abo ut multiple left ribs. IMPRESSION: 1. Congestive heart failure. Electronically signed by: Shahram More MD 04/29/2023 11:42 PM SIDER Due to temporary technical issues with the PACS/Fluency reporting system, reports are being signed by the in house radiologist without review as a courtesy to ensure prompt reporting. The interpreting r adiologist is fully responsible for the content of the report.
[2023-04-30 13:30] VITALS: BP 133/92; TEMP 99.5; O2SAT 92
== END ==
LOC: ER 22:16
DX: R07.9 Chest pain, unspecified (principal); I13.2 Hypertensive heart and chronic kidney disease with heart failure and with stage 5 chronic kidney disease, or end stage renal disease; N18.6 End stage renal disease; I50.9 Heart failure, unspecified; Z99.2 Dependence on renal dialysis; Z72.0 Tobacco use
CPT/HCPCS: 71045; 93005

== ENCOUNTER → 2023-06-12 | Emergency (ER) | payer OTHER ==
[~2023-06-12] MED LIST: HYDROCODONE/APAP 10/325 TAB ONE
--- NOTE | 2023-06-12 19:16 | RAD REPORT ---
EXAM DESCRIPTION: RAD - Shoulder Left 2 View - 06/12/2023 7:04 pm CLINICAL HISTORY: PAIN COMPARISON: <Comparisons> FINDINGS: Diffuse osteopenia. Fracture involving the distal left clavicular region. No dislocation.
--- NOTE | 2023-06-12 19:59 | ER ---
Nurse's Notes [facility] Name: Velasquez Cruz Age: 48 yrs Sex: Male : 1975 Arrival Date: 06/12/2023 Time: 18:20 Bed 19 Private MD: Diagnosis: Fracture of clavicle Presentation: 06/11 18:29 Chief complaint: EMS states: Pt tripped and fell onto his left shoulder. Pt has full tl4 ROM, pulse to left upper extremity. Pt c/o left shoulder pain. Coronavirus screen: At this time, the client does not indicate any symptoms associated with coronavirus-19. Ebola Screen: No symptoms or risks identified at this time. Initial Sepsis Screen: Does the patient meet any 2 criteria? No. Patient's initial sepsis screen is negative. Does the patient have a suspected source of infection? No. Patient's initial sepsis screen is negative. Risk Assessment: Do you want to hurt yourself or someone else? Patient reports no desire to harm self or others. Onset of symptoms was June 12, 2023. 18:29 Method Of Arrival: EMS: [facility] tl4 18:29 Acuity: HEAVEN 4 tl4 Triage Assessment: 18:41 General: Appears in no apparent distress. Behavior is calm, cooperative. Pain: tl4 Complains of pain in right shoulder. EENT: No deficits noted. No signs and/or symptoms were reported regarding the EENT system. Neuro: No deficits noted. Denies weakness dizziness, numbness headache. Cardiovascular: No deficits noted. Denies chest pain, palpitations, syncope, Pulses are palpable in right radial artery and left radial artery are 2+ in right radial artery and left radial artery. Respiratory: No deficits noted. Breath sounds are clear bilaterally. Denies cough, shortness of breath labored breathing. GI: No deficits noted. No signs and/or symptoms were reported involving the gastrointestinal system. : No deficits noted. No signs and/or symptoms were reported regarding the genitourinary system. Derm: No deficits noted. No signs and/or symptoms reported regarding the dermatologic system. Musculoskeletal: Reports pain in left shoulder. Historical: - PMHx: 18:45 Anemia; Anxiety; Bipolar disorder; Cocaine Abuse; COPD; DVT; End stage renal disease; tl4 HD MWF; HEART FAILURE; Hypertensive disorder; mild cognitive impairment; Thrombophilia; - PSHx: 18:45 thoracotomy; tl4 - Immunization history:: Adult Immunizations unknown, Client reports receiving the 2nd dose of the Covid vaccine. - Social history:: Smoking status: Patient reports the use of cigarette tobacco products, smokes one-half pack cigarettes per day, Patient/guardian denies using alcohol, street drugs. - Family history:: not pertinent. Screenin:[facility] ED Fall Risk Assessment (Adult) History of falling in the last 3 months, tl4 including since admission Yes- single mechanical fall (1 pt) Confusion or Disorientation No (0 pts) Intoxicated or Sedated No (0 pts) Impaired Gait No (0 pts) Mobility Assist Device Used No (0 pt) Altered Elimination No (0 pt) Score/Fall Risk Level 0 - 2 = Low Risk Oriented to surroundings, Maintained a safe environment, Educated pt \T\ family on fall prevention, incl call for assistance when getting out of bed, Assessed \T\ reinforced patient's understanding of fall precautions, Hourly rounding (assess needs \T\ fall precautionary measures) done, Used ambulatory aids as needed (educated on \T\ assisted with), Used gait belt as appropriate. Abuse screen: Denies threats or abuse. Denies injuries from another. Nutritional screening: No deficits noted. Tuberculosis screening: No symptoms or risk factors identified. Assessment: 19:14 Reassessment: No changes from previously documented assessment. Patient and/or family tl4 updated on plan of care and expected duration. Pain level reassessed. Patient is alert, oriented x 3, equal unlabored respirations, skin warm/dry/pink. Patient states symptoms have not improved. 20:14 Reassessment: No changes from previously documented assessment. Patient and/or family tl4 updated on plan of care and expected duration. Pain level reassessed. Patient is alert, oriented x 3, equal unlabored respirations, skin warm/dry/pink. 20:35 Reassessment: Patient report given to NATHANAEL Patel at [facility], NATHANAEL Patel to pf1 call back with ETA. 20:59 Reassessment: NATHANAEL Patel with [facility] ETA 2200. pf1 22:00 Reassessment: No changes from previously documented assessment. Patient and/or family tl4 updated on plan of care and expected duration. Pain level reassessed. Patient is alert, oriented x 3, equal unlabored respirations, skin warm/dry/pink. Vital Signs: 18:29 BP 155 / 94; Pulse 80; Resp 18; Temp 97.3(TE); Pulse Ox 100% on R/A; Weight 80.29 kg; tl4 Height 5 ft. 8 in. ; Pain 8/10; 19:14 BP 164 / 65; Pulse 79; Resp 16; Pulse Ox 100% on R/A; Pain 8/10; tl4 20:00 BP 145 / 67; Pulse 81; Resp 16; Pulse Ox 96% on R/A; Pain 8/10; tl4 21:00 BP 156 / 88; Pulse 73; Resp 20; Pulse Ox 95% on R/A; tl4 22:00 BP 142 / 74; Pulse 81; Resp 17; Temp 98.3(O); Pulse Ox 98% on R/A; Pain 5/10; tl4 18:29 Body Mass Index 26.91 (80.29 kg, 172.72 cm) tl4 18:29 Pain Scale: Adult tl4 19:14 Pain Scale: Adult tl4 20:00 Pain Scale: Adult tl4 22:00 Pain Scale: Adult tl4 Jason Coma Score: 22:00 Eye Response: spontaneous(4). Motor Response: obeys commands(6). Verbal Response: tl4 oriented(5). Total: 15. ED Course: 18:23 Patient arrived in ED. as6 18:23 Brijesh Banda MD is Attending Physician. rt 18:28 Cain Hatch, OLIVIA is Primary Nurse. tl4 18:41 Triage completed. tl4 18:46 Arm band placed on right wrist. tl4 18:47 Patient has correct armband on for positive identification. Placed in gown. Bed in low tl4 position. Call light in reach. Side rails up X2. Provided Education on: ed process. Client placed on continuous cardiac and pulse oximetry monitoring. NIBP monitoring applied. Door closed. Lights dimmed. Moved to private room. Warm blanket given. 18:47 No provider procedures requiring assistance completed. tl4 19:06 Shoulder Left (2 View) XRAY In Process Unspecified. EDMS 19:58 Nii Linda MD is Referral Physician. rt 20:51 Sling given to the left arm. oe 20:56 Sling applied to left arm. oe 21:32 [facility] called advising patient pickup pushed back to 2230. ty 22:47 Patient did not have IV access during this emergency room visit. tl4 Administered Medications: 19:12 Drug: [place] PO 10 mg-325 mg 1 tabs PO once Route: PO; tl4 22:44 Follow up: Response: No adverse reaction; Pain is decreased tl4 Medication: 19:16 VIS not applicable for this client. tl4 Outcome: 19:59 Discharge ordered by MD. rt 22:47 Discharged to [facility]. tl4 22:47 Condition: stable 22:47 Discharge instructions given to patient, Instructed on discharge instructions, follow up and referral plans. Demonstrated understanding of instructions, follow-up care, 22:48 Patient left the ED. tl4 Signatures: Dispatcher [employer] EDMS Danny Williamson oe Pranav Dietz RN RN as6 Brijesh Banda MD MD rt Yelena Brasher RN RN pf1 Cain Hatch RN RN tl4 Matthew Ponce ty Corrections: (The following items were deleted from the chart) 20:56 20:30 Sling \T\ swathe to left arm. pf1 oe
--- NOTE | 2023-06-12 19:59 | EDPHYS ---
Physician Documentation [facility] Name: Velasquez Cruz Age: 48 yrs Sex: Male : 1975 Arrival Date: 06/12/2023 Time: 18:20 Bed 19 Private MD: ED Physician Brijesh Banda HPI: 06/11 20:45 This 48 yrs old Black Male presents to ER via EMS with complaints of shoulder pain. rt 20:45 Patient presents to the ED with mechanical trip and fall. Patient states he fell onto rt his shoulder. Patient ports pain to the shoulder. Denies any his head, denies other injury or other acute complaints, symptoms are aching nature, nonradiating, mild in severity, no other aggravating or alleviating factors.. Historical: - PMHx: 18:45 Anemia; Anxiety; Bipolar disorder; Cocaine Abuse; COPD; DVT; End stage renal disease; tl4 HD MWF; HEART FAILURE; Hypertensive disorder; mild cognitive impairment; Thrombophilia; - PSHx: 18:45 thoracotomy; tl4 - Immunization history:: Adult Immunizations unknown, Client reports receiving the 2nd dose of the Covid vaccine. - Social history:: Smoking status: Patient reports the use of cigarette tobacco products, smokes one-half pack cigarettes per day, Patient/guardian denies using alcohol, street drugs. - Family history:: not pertinent. ROS: 20:45 Constitutional: Negative for fever, chills, and weight loss, Cardiovascular: Negative rt for chest pain, palpitations, and edema, Respiratory: Negative for shortness of breath, cough, wheezing, and pleuritic chest pain, Abdomen/GI: Negative for abdominal pain, nausea, vomiting, diarrhea, and constipation, Skin: Negative for injury, rash, and discoloration, Neuro: Negative for headache, weakness, numbness, tingling, and seizure, 20:45 MS/extremity: Positive for pain, Negative for deformity, Exam: 20:45 Constitutional: This is a well developed, well nourished patient who is awake, alert, rt and in no acute distress. Head/Face: Normocephalic, atraumatic. Chest/axilla: Normal chest wall appearance and motion. Nontender with no deformity. No lesions are appreciated. Cardiovascular: Regular rate and rhythm with a normal S1 and S2. No gallops, murmurs, or rubs. Normal PMI, no JVD. No pulse deficits. Respiratory: Lungs have equal breath sounds bilaterally, clear to auscultation and percussion. No rales, rhonchi or wheezes noted. No increased work of breathing, no retractions or nasal flaring. Abdomen/GI: Soft, non-tender, with normal bowel sounds. No distension or tympany. No guarding or rebound. No evidence of tenderness throughout. 20:45 Musculoskeletal/extremity: Tenderness over the left anterior shoulder, full range of motion, no bruising, pulses, motor, sensation intact. Vital Signs: 18:29 BP 155 / 94; Pulse 80; Resp 18; Temp 97.3(TE); Pulse Ox 100% on R/A; Weight 80.29 kg; tl4 Height 5 ft. 8 in. ; Pain 8/10; 19:14 BP 164 / 65; Pulse 79; Resp 16; Pulse Ox 100% on R/A; Pain 8/10; tl4 20:00 BP 145 / 67; Pulse 81; Resp 16; Pulse Ox 96% on R/A; Pain 8/10; tl4 21:00 BP 156 / 88; Pulse 73; Resp 20; Pulse Ox 95% on R/A; tl4 22:00 BP 142 / 74; Pulse 81; Resp 17; Temp 98.3(O); Pulse Ox 98% on R/A; Pain 5/10; tl4 18:29 Body Mass Index 26.91 (80.29 kg, 172.72 cm) tl4 18:29 Pain Scale: Adult tl4 19:14 Pain Scale: Adult tl4 20:00 Pain Scale: Adult tl4 22:00 Pain Scale: Adult tl4 Madison Coma Score: 22:00 Eye Response: spontaneous(4). Motor Response: obeys commands(6). Verbal Response: tl4 oriented(5). Total: 15. MDM: 18:27 Patient medically screened. rt 20:45 Differential Diagnosis Fracture, dislocation, contusion. Data reviewed: vital signs, rt nurses notes, radiologic studies. I considered the following discharge prescriptions or medication management in the emergency department Medications were administered in the Emergency Department. See MAR. Independent interpretation of the following test(s) in the Emergency Department X-Ray: My interpretation is Clavicular fracture seen on interpretation of x-ray images. Care significantly affected by the following chronic conditions: Chronic Kidney Disease. Counseling: I had a detailed discussion with the patient and/or guardian regarding the historical points, exam findings, and any diagnostic results supporting the discharge/admit diagnosis, radiology results, the need for outpatient follow up, to return to the emergency department if symptoms worsen or persist or if there are any questions or concerns that arise at home. Response to treatment: the patient's symptoms have markedly improved after treatment. 06/11 18:32 Order name: Shoulder Left (2 View) XRAY; Complete Time: 19:17 rt 06/11 19:58 Order name: Sling; Complete Time: 20:46 rt Administered Medications: 19:12 Drug: [place] PO 10 mg-325 mg 1 tabs PO once Route: PO; tl4 22:44 Follow up: Response: No adverse reaction; Pain is decreased tl4 Disposition Summary: 06/12/23 19:59 Discharge Ordered Notes: Location: Home rt Condition: Stable rt Diagnosis - Fracture of clavicle rt Followup: rt - With: Nii Linda MD - When: 7 - 10 days - Reason: Discharge Instructions: - Discharge Summary Sheet rt - Clavicle Fracture rt Forms: - Medication Reconciliation Form rt - Thank You Letter rt - Antibiotic Education rt - Prescription Opioid Use rt - Patient Portal Instructions rt - Leadership Thank You Letter rt Prescriptions: - Tramadol 50 mg Oral Tablet - take 1 tablet ORAL route every 8 hours as needed; 12 tablet; Refills: 0, rt Product Selection Permitted Signatures: Dispatcher [employer] Brijesh Farris MD MD rt Cain Hatch RN RN tl4
[2023-06-12 23:56] VITALS: BP 142/74; TEMP 98.3; O2SAT 98
== END ==
LOC: ER 18:20
DX: S42.032A Displaced fracture of lateral end of left clavicle, initial encounter for closed fracture (principal); F17.210 Nicotine dependence, cigarettes, uncomplicated
CPT/HCPCS: 99284

== ENCOUNTER 2023-07-21 10:50 | Inpatient (IN) | payer OTHER ==
[2023-07-21 13:29] LABS: Absolute Basophils 0.1 K/uL (0-0.5); Absolute Eosinophils 0.9 K/uL (0-0.5); Absolute Lymphocytes (CBC) 1.2 K/uL (0.7-4.9); Absolute Monocytes 0.7 K/uL (0.1-1.3); Absolute Neutrophil 4.9 K/uL (1.8-8.0); Basophils % 1.1 % (0-1.3); Hematocrit 19.9 % (39.6-49.0); Hemoglobin 6.5 g/dL (13.6-17.9); Lymphocytes % 15.9 % (15.3-44.8); MCH 30.2 pg (27.0-35.0); MCHC 32.8 g/dL (32.0-36.0); MCV 92.1 fL (80-100); MPV 8.7 fL (7.6-11.3); Monocytes % 9.2 % (3.3-12.3); Neutrophils % 62.8 % (41.7-73.7); Nucleated RBC Absolute Count 0.1 (0-0); Nucleated Red Blood Cells % 0.9 % (0-0); Platelets 249 thou/uL (152-406); RBC Red Blood Cell Count 2.16 M/uL (4.33-5.43); Red Cell Distribution Width 20.7 % (12.1-15.2)
[2023-07-21 13:46] LABS: Anion Gap 15.1 mEq/L (5.0-15.0)
[2023-07-21 13:47] LABS: Potassium 6.1 mEq/L (3.5-5.1)
--- NOTE | 2023-07-21 13:57 | ER ---
Nurse's Notes [facility] Name: Velasquez Cruz Age: 48 yrs Sex: Male : 1975 Arrival Date: 07/21/2023 Time: 10:50 Bed 5 Private MD: Diagnosis: Anemia, unspecified Presentation: 07/20 11:06 Chief complaint: Patient states: sent by dialysis center for low H/H. Did not receive ko1 dialysis today. Coronavirus screen: At this time, the client does not indicate any symptoms associated with coronavirus-19. Ebola Screen: No symptoms or risks identified at this time. Initial Sepsis Screen: Does the patient meet any 2 criteria? No. Patient's initial sepsis screen is negative. Does the patient have a suspected source of infection? No. Patient's initial sepsis screen is negative. Risk Assessment: Do you want to hurt yourself or someone else? Patient reports no desire to harm self or others. Onset of symptoms was July 21, 2023. 11:06 Method Of Arrival: Ambulatory ko1 11:06 Acuity: HEAVEN 3 ko1 Triage Assessment: 11:07 General: Appears in no apparent distress. Behavior is calm, cooperative, appropriate ko1 for age. Pain: Denies pain. Historical: - Allergies: 11:07 No Known Allergies; ko1 - Home Meds: 11:07 Unable to obtain [Active]; ko1 - PMHx: 11:07 End stage renal disease; HD MWF; HEART FAILURE; Hypertensive disorder; mild cognitive ko1 impairment; Thrombophilia; DVT; COPD; Cocaine Abuse; Bipolar disorder; Anxiety; Anemia; - PSHx: 11:07 thoracotomy; ko1 - Immunization history:: Adult Immunizations unknown. - Infectious Disease History:: Denies. - Social history:: Smoking status: Patient reports the use of cigarette tobacco products, smokes one pack cigarettes per day. Screenin:10 [facility] ED Fall Risk Assessment (Adult) History of falling in the last 3 months, mb9 including since admission No falls in past 3 months (0 pts) Confusion or Disorientation No (0 pts) Intoxicated or Sedated No (0 pts) Impaired Gait No (0 pts) Mobility Assist Device Used No (0 pt) Altered Elimination No (0 pt) Score/Fall Risk Level 0 - 2 = Low Risk Oriented to surroundings, Maintained a safe environment, Educated pt \T\ family on fall prevention, incl call for assistance when getting out of bed. Abuse screen: Denies threats or abuse. Nutritional screening: No deficits noted. Tuberculosis screening: No symptoms or risk factors identified. Assessment: 13:18 General: Appears in no apparent distress. Behavior is calm, cooperative. Pain: Denies mb9 pain. Neuro: Ahn Agitation-Sedation Scale (RASS): 0 - Alert and Calm Level of Consciousness is awake, alert, obeys commands, Oriented to person, place, time, situation, Appropriate for age Reports dizziness, weakness. Cardiovascular: Heart tones S1 S2 present Patient's skin is warm and dry. Respiratory: Airway is patent Respiratory effort is even, unlabored, Respiratory pattern is regular, symmetrical, Breath sounds are clear bilaterally. GI: Abdomen is round non-distended, Bowel sounds present X 4 quads. Abd is soft and non tender X 4 quads. : No signs and/or symptoms were reported regarding the genitourinary system. EENT: No signs and/or symptoms were reported regarding the EENT system. Derm: Skin is pink, warm \T\ dry. Musculoskeletal: Range of motion: intact in all extremities. 15:04 Reassessment: Patient appears in no apparent distress at this time. No changes from mb9 previously documented assessment. Patient and/or family updated on plan of care and expected duration. Pain level reassessed. Patient is alert, oriented x 3, equal unlabored respirations, skin warm/dry/pink. Vital Signs: 11:06 BP 136 / 98; Pulse 88; Resp 18; Temp 98.3; Pulse Ox 100% ; ko1 13:19 BP 140 / 88; Pulse 74; Resp 18; Pulse Ox 100% on R/A; mb9 15:05 BP 149 / 89; Pulse 78; Resp 18; Pulse Ox 100% on R/A; mb9 ED Course: 10:56 Patient arrived in ED. mg5 11:01 Kiet Funez DO is Attending Physician. ms3 11:07 Triage completed. ko1 11:07 Arm band placed on right wrist. Patient placed in an exam room, on a stretcher, on ko1 library monitor, on pulse oximetry, Patient notified of wait time. 12:36 BMP Sent. ld1 12:36 CBC with Diff Sent. ld1 13:10 Tammie Ferrara, RN is Primary Nurse. mb9 13:10 Placed in gown. Bed in low position. Call light in reach. Side rails up X 1. Provided mb9 Education on: press call light if needing anything. Client placed on continuous cardiac and pulse oximetry monitoring. NIBP monitoring applied. monitoring and evaluation advisor on. 13:18 Initial lab(s) drawn, by ks, sent to lab. Inserted saline lock: 20 gauge in left mb9 antecubital area, using aseptic technique. 13:19 BMP Sent. mb9 13:19 CBC with Diff Sent. mb9 13:57 Oly Sanders MD is Hospitalizing Provider. ms3 13:59 Consent for blood and/or blood product transfusion explained by staff, explained by mb9 physician, signed by patient. 15:05 No provider procedures requiring assistance completed. Patient admitted, IV remains in mb9 place. Administered Medications: 14:43 Drug: Lokelma Powder 10 grams PO once Route: PO; mb9 Medication: 13:10 VIS not applicable for this client. mb9 Outcome: 13:57 Decision to Hospitalize by Provider. ms3 15:34 Patient left the ED. ld1 Signatures: Kiet Funez, DO DO ms3 Rowan Funez RN RN ld1 Alicia Spencer, RN RN Tammie Clarke, RN RN mb9 Osiris Abreu mg5
--- NOTE | 2023-07-21 13:57 | EDPHYS ---
Physician Documentation [facility] Name: Velasquez Cruz Age: 48 yrs Sex: Male : 1975 Arrival Date: 07/21/2023 Time: 10:50 Bed 5 Private MD: ED Physician Kiet Funez HPI: 07/20 13:48 This 48 yrs old Black Male presents to ER via Ambulatory with complaints of low ms3 hemaglobin. 13:48 48-year-old male with past medical history of end-stage renal disease on dialysis ms3 Friday, Friday, Friday, heart failure, hypertension, mild cognitive disorder presents to the emergency department under the direction of dialysis for low hemoglobin. Patient denies pain, shortness of breath. Patient endorses lightheadedness.. Historical: - Allergies: 11:07 No Known Allergies; ko1 - Home Meds: 11:07 Unable to obtain [Active]; ko1 - PMHx: 11:07 End stage renal disease; HD MWF; HEART FAILURE; Hypertensive disorder; mild cognitive ko1 impairment; Thrombophilia; DVT; COPD; Cocaine Abuse; Bipolar disorder; Anxiety; Anemia; - PSHx: 11:07 thoracotomy; ko1 - Immunization history:: Adult Immunizations unknown. - Infectious Disease History:: Denies. - Social history:: Smoking status: Patient reports the use of cigarette tobacco products, smokes one pack cigarettes per day. ROS: 13:48 Constitutional: Negative for fever, and chills. Neck: Negative for injury, pain, and ms3 swelling, Cardiovascular: Negative for chest pain, and palpitations. Respiratory: Negative for shortness of breath, cough, wheezing, and pleuritic chest pain, Abdomen/GI: Negative for abdominal pain, nausea, vomiting, diarrhea, and constipation, MS/Extremity: Negative for injury and deformity, Skin: Negative for injury, rash, and discoloration, 13:48 Neuro: Positive for Lightheaded, 13:48 All other systems are negative, Exam: 13:48 Constitutional: This is a well developed, well nourished patient who is awake, alert, ms3 and in no acute distress. Head/Face: Normocephalic, atraumatic. Chest/axilla: Normal chest wall appearance and motion. Nontender with no deformity. Cardiovascular: Regular rate and rhythm with a normal S1 and S2. No gallops, murmurs, or rubs. Normal PMI, no JVD. No pulse deficits. Respiratory: Lungs have equal breath sounds bilaterally, clear to auscultation and percussion. No rales, rhonchi or wheezes noted. No increased work of breathing, no retractions or nasal flaring. Abdomen/GI: Soft, non-tender, with normal bowel sounds. No distension or tympany. No guarding or rebound. No evidence of tenderness throughout. Skin: Warm, dry with normal turgor. Normal color with no rashes, no lesions, and no evidence of cellulitis. MS/ Extremity: Pulses equal, no cyanosis. Neurovascular intact. Full, normal range of motion. 15:02 ECG was reviewed by the Attending Physician. ms3 Vital Signs: 11:06 BP 136 / 98; Pulse 88; Resp 18; Temp 98.3; Pulse Ox 100% ; ko1 13:19 BP 140 / 88; Pulse 74; Resp 18; Pulse Ox 100% on R/A; mb9 15:05 BP 149 / 89; Pulse 78; Resp 18; Pulse Ox 100% on R/A; mb9 MDM: 11:07 Patient medically screened. ms3 13:48 Differential Diagnosis Anemia versus lab error versus electrolyte abnormality. Data ms3 reviewed: vital signs, nurses notes, and as a result, I will admit patient. Consideration of Admission/Observation Patient was admitted/placed on observation. Management of patient was discussed with the following: Hospitalist: . Billet Straightener: Dr Munoz. Care significantly affected by the following chronic conditions: Hypertension, Chronic Kidney Disease. Counseling: I had a detailed discussion with the patient and/or guardian regarding the historical points, exam findings, and any diagnostic results supporting the discharge/admit diagnosis, lab results, the need for further work-up and treatment in the hospital. ED course: Discussed hemoglobin level with patient. 13:58 ED course: Discussed hyperkalemia with Dr Munoz. Dialysis nurse aware.. ms3 14:28 I considered the following discharge prescriptions or medication management in the ms3 emergency department Medications were administered in the Emergency Department. See MAR. 07/20 11:07 Order name: CBC with Diff 3 07/20 11:07 Order name: BMP; Complete Time: 13:56 ms3 07/20 13:32 Order name: CBC Smear Scan EDMS 07/20 13:46 Order name: Type And Screen ms3 07/20 14:22 Order name: Thyroid Stimulating Hormone EDMS 07/20 14:22 Order name: Basic Metabolic Panel EDMS 07/20 14:22 Order name: Basic Metabolic Panel EDMS 07/20 14:22 Order name: CBC with Automated Diff EDMS 07/20 14:22 Order name: CBC with Automated Diff EDMS 07/20 14:22 Order name: CBC with Automated Diff EDMS 07/20 14:22 Order name: CBC with Automated Diff EDMS 07/20 14:22 Order name: Comprehensive Metabolic Panel EDMS 07/20 14:22 Order name: Comprehensive Metabolic Panel EDMS 07/20 14:23 Order name: Comprehensive Metabolic Panel EDMS 07/20 14:23 Order name: Comprehensive Metabolic Panel EDMS 07/20 14:23 Order name: Magnesium EDMS 07/20 14:23 Order name: Magnesium EDMS 07/20 14:23 Order name: Magnesium EDMS 07/20 14:23 Order name: Magnesium EDMS 07/20 14:23 Order name: Phosphorus EDMS 07/20 14:23 Order name: Phosphorus EDMS 07/20 14:23 Order name: Phosphorus EDMS 07/20 14:23 Order name: Phosphorus EDMS 07/20 14:23 Order name: Protime (+INR) EDMS 07/20 14:23 Order name: Protime (+INR) EDMS 07/20 14:22 Order name: CONS Physician Consult EDMS 07/20 14:22 Order name: CONS Physician Consult EDMS 07/20 12:43 Order name: Labs - recollect needed: recollect all tubes; Complete Time: 13:19 bd 07/20 13:20 Order name: IV; Complete Time: 13:20 mb9 07/20 14:28 Order name: EKG - Nurse/Tech; Complete Time: 14:33 ms3 EC:02 Rate is 93 beats/min. Rhythm is regular. QRS [place] is Normal. ME interval is normal. QRS ms3 interval is normal. Clinical impression: NSR w/ Non-specific ST/T Changes. Interpreted by me. Reviewed by me. Administered Medications: 14:43 Drug: Lokelma Powder 10 grams PO once Route: PO; mb9 Disposition Summary: 07/21/23 13:57 Hospitalization Ordered Notes: Hospitalization Status: Observation ms3 Provider: Oly Sanders ms3 Location: Telemetry/MedSurg (observation) ms3 Condition: Stable ms3 Problem: new ms3 Symptoms: are unchanged ms3 Bed/Room Type: Standard ms3 Room Assignment: 405(07/21/23 14:52) bd Diagnosis - Anemia, unspecified ms3 Forms: - Medication Reconciliation Form ms3 - SBAR form ms3 - Leadership Thank You Letter ms3 Critical care time excluding procedures: 14:28 Critical care time: Bedside Care: 25 minutes, Consultation: 10 minutes. Total time: 35 ms3 minutes Signatures: Dispatcher [employer] EDMS Shilpa Arthur Shelly, MARKING ROOM SUPERVISOR-C MARKING ROOM SUPERVISOR-Csnw Kiet Funez, DO ms3 Alicia Spencer, RN RN ko1 Tammie Ferrara, RN RN mb9 Corrections: (The following items were deleted from the chart) 13:57 13:57 BB Add On+[id number].LAB.BRZ ordered. EDMS EDMS 14:52 13:57 ms3 bd
--- NOTE | 2023-07-21 14:22 | P.HP ---
Certification for Inpatient Patient admitted to: Inpatient With expected LOS: >2 Midnights Patient will require the following post-hospital care: None Practitioner: I am a practitioner with admitting privileges, knowledge of patient current condition, hospital course, and medical plan of care. Services: Services provided to patient in accordance with Admission requirements found in Title 42 Section 412.3 of the Code of Federal Regulations <Nasrin Omalley Pankaj - Last Filed: 07/21/23 14:45> Patient History Date of Service: 07/21/23 Reason for admission: Anemia, ESRD, GIB History of Present Illness: Mr. Cruz is a 48-year-old male who resides at [facility]. He has a past medical history of acute/subacute infective endocarditis, chronic right heart failure, chronic obstructive pulmonary disease, hypertensive heart and chronic kidney disease with ESRD, distant history of stimulant abuse. He sees Dr. Munoz and has dialysis Friday, Friday, and Friday. He states he has been feeling somewhat dizzy, weak. Labs today reveal hemoglobin of 6.5. He states he has been having some hard, black stools. He denies abdominal pain, nausea, vomiting, diarrhea. On laboratory evaluation in the emergency department, as noted, his hemoglobin is 6.5, potassium is 6.1, creatinine 11.3, and BUN 108. Dr. Munoz saw Mr. Cruz in the emergency department, and will arrange for dialysis today. The patient will receive a unit of PRBCs during dialysis. He will be admitted for further treatment and consultation with Dr. Munoz. Home medications list reviewed: Yes - Past Medical/Surgical History Has patient received pneumonia vaccine in the past: Yes Diabetic: Yes -: ESRD on HD (Dr. Munoz/ Jere) -: GERD -: HTN -: HLD -: BPH -: COPD -: Dialysis catheter to groin -: Bilateral upper extremity fistulasno longer in use Psychosocial/ Personal History: Patient currently resides at [facility] - Family History Mother -: Heart disease - Social History Smoking Status: Unknown if ever smoked Alcohol use: No CD- Drugs: No Caffeine use: Yes Place of Residence: [facility] <Mikki Omalleydenise Lira - Last Filed: 07/21/23 14:45> Date of Service: 07/21/23 <Oly Sanders - Last Filed: 07/21/23 16:10> Allergies No Known Allergies Allergy (Unverified 05/31/22 20:46) Home Medications: Acetaminophen [8 Hour Acetaminophen] 650 mg PO Q6H PRN 06/03/22 Acetaminophen with Codeine [Acetaminophen-Cod #3 Tablet] 1 each PO Q8H PRN 06/03/22 Albuterol Sulfate [Albuterol Sulfate 0.083% Neb Soln] 2.5 mg IH TID PRN 06/03/22 Amino Acids/Protein Hydr/Fiber [Pro-Stat Renal Care Liquid Pkt] 30 ml PO DAILY 06/03/22 Amlodipine [Norvasc*] 10 mg PO DAILY 06/03/22 Atorvastatin Calcium [Lipitor] 40 mg PO BEDTIME 06/03/22 Carvedilol [Coreg] 25 mg PO BID 06/03/22 Cetirizine HCl [All Day Allergy Relief] 10 mg PO DAILY 06/03/22 Ferrous Sulfate [Ferrous Sulfate*] 325 mg PO BID 06/03/22 Gabapentin [Neurontin*] 100 mg PO TID 06/03/22 Hydralazine [Apresoline*] 100 mg PO Q8H 06/03/22 Isosorbide Mononitrate [Isosorbide Mononitrate ER] 30 mg PO DAILY 06/03/22 Lactulose 30 ml PO DAILY 06/03/22 Magnesium [Magnesium Gluconate] 400 mg PO Q48H 06/03/22 Multivitamin 1 tab PO DAILY 06/03/22 Polyethyl Gly 3350 [Glycolax*] 1 packet PO DAILY PRN 06/03/22 Sennosides [Senna Lax] 2 tab PO DAILY 06/03/22 Calcium Acetate [Phoslo*] 3 cap PO TID 12/30/22 Clonidine Patch [Catapres-Tts 1*] 1 patch TD Q7D 12/30/22 Divalproex Sodium [Depakote] 1,000 mg PO BEDTIME 12/30/22 Divalproex Sodium [Depakote] 500 mg PO DAILY 12/30/22 Duloxetine HCl [Drizalma Sprinkle] 60 mg PO DAILY 12/30/22 Losartan Potassium [Cozaar*] 50 mg PO DAILY 12/30/22 Melatonin 5 mg PO BEDTIME PRN 10/02/23 Ondansetron [Zofran (Odt)*] 4 mg PO Q8HP PRN 12/30/22 Sodium Zirconium Cyclosilicate [Lokelma] 10 gm PO T,TH,S 12/30/22 Sucralfate [Carafate*] 1 gm PO TID 12/30/22 cloNIDine HCL [Clonidine HCl] 0.1 mg PO Q8H PRN 12/30/22 Review of Systems 10-point ROS is otherwise unremarkable General: Weakness, As per HPI Gastrointestinal: Melena, As per HPI Neurological: As per HPI <Nasrin Omalley - Last Filed: 07/21/23 14:45> Physical Examination - Physical Exam General: Alert, In no apparent distress, Oriented x3 HEENT: Atraumatic, Normocephalic Neck: No Thyromegaly Respiratory: Normal air movement Cardiovascular: Normal pulses, Systolic murmur, Diastolic murmur Capillary refill: <2 Seconds Gastrointestinal: No tenderness, Hyperactive Musculoskeletal: No clubbing Integumentary: No rashes Neurological: Normal speech Lymphatics: No axilla or inguinal lymphadenopathy Urinary: Dialysis catheter External genitalia: Deferred Rectal: Deferred - Studies Laboratory Data (last 24 hrs) 07/21/23 07/21/23 13:17 13:17 WBC 7.80 Hgb 6.5 L Hct 19.9 L Plt Count 249 Sodium 135 L Potassium 6.1 H* BUN 108 H Creatinine 11.30 H Glucose 77 <Nasrin Omalley - Last Filed: 07/21/23 14:45> - Studies Laboratory Data (last 24 hrs) 07/21/23 07/21/23 13:17 13:17 WBC 7.80 Hgb 6.5 L Hct 19.9 L Plt Count 249 Sodium 135 L Potassium 6.1 H* BUN 108 H Creatinine 11.30 H Glucose 77 <Oly Sanders - Last Filed: 07/21/23 16:10> Assessment and Plan - Plan ESRD with anemia Consult Dr. Munoz Dialysis per above 1 unit PRBC during dialysis depakote level Hyperkalemia Lokelma po Dialysis Telemetry Trend electrolytes HTN Carvedilol 12.5 mg po BID Clonidine 0.1mg po q 8hr prn SBP>150, DBP >100 HLD: atorvastatin 40mg po q hs Black stools: Melena or Iron supplementation? Stool for Guaiac NPO except ice chips until stool sent Consult Dr. Macedo Continue Eliquis, hold asa for now Protonix 40mg IV q 12h anxiety/bipolar/chronic pain Gabapentin 100mg po daily Duloxetine 60mg po daily depakote 1000mg po q hs code status: full DVT/GI prophylaxis, pt on Eliquis and Protonix - Advance Directives Does patient have a Living Will: No Does patient have a Durable POA for Healthcare: No <Nasrin Omalley - Last Filed: 07/21/23 14:45> - Plan Pt seen and examined. I agree with the note by the MUSICAL INSTRUMENT MAKER OR REPAIRER. Pt is a 48 yo male with past medical history of acute/subacute infective endocarditis, chronic right heart failure, chronic obstructive pulmonary disease, hypertensive heart, chronic kidney disease with ESRD, and distant history of stimulant abuse who presents with dizziness and weakness. Pt reports melena at home. On admission lab studies show Hgb 6.5. k 6.1, Cr 11.3, and BUN 108. ER physician consulted Nephrology for dialysis. At bedside, pt is in NAD. A/P: Melena: Hgb is 6.5. Will give 1 unit of blood during dialysis. Monitor H/H. Will consult GI for EGD. Will continue protonix 40mg iv BID. Will hold Aspirin and eliquis. ESRD: Consulted Nephrology. Cr is 11.3. Will do HD steve. Last dialysis was on friday Hyperkalemia: K is 6.1. Will improve with dialysis. Htn: Will monitor BP for now. <Oly Sanders - Last Filed: 07/21/23 16:10>
[2023-07-21] MEDS: SODIUM ZIRCONIUM CYCLOSILICATE 10 GM/PKT PO ONE (14:23)
[2023-07-21] MEDS ORDERED: SODIUM ZIRCONIUM CYCLOSILICATE 10 GM/PKT PO ONE (14:45)
[2023-07-21] MEDS ORDERED: SODIUM CHLORIDE 0.9% 10ML INJ IV PRN (15:07)
[2023-07-21 16:17] VITALS: BMI 26.7
[2023-07-21] MEDS: INSULIN REGULAR (HUMAN) 100 UNIT/ML SQ SCH (16:30)
[2023-07-21 16:54] LABS: Anisocytosis 1+; Blood Morphology Comment NOTED (NOT SEEN); Platelet Estimate ADEQ; White Blood Cell Scan OK (OK)
[2023-07-21 16:55] LABS: Poikilocytosis 1+
[2023-07-21] MEDS: carvediloL 12.5 MG TAB PO SCH (18:00)
[2023-07-21] MEDS ORDERED: APIXABAN 5 MG TABLET PO SCH (21:00)
--- NOTE | 2023-07-21 21:32 | P.CNS ---
Date of Consult: 07/21/23 Reason for Consult: ESRD Requesting Physician: Oly Sanders Chief Complaint: Anemia, ESRD, GIB History of Present Illness: Mr. Cruz is a 48-year-old male who resides at [facility]. He has a past medical history of acute/subacute infective endocarditis, chronic right heart failure, chronic obstructive pulmonary disease, hypertensive heart and chronic kidney disease with ESRD, distant history of stimulant abuse. He sees Dr. Munoz and has dialysis Friday, Friday, and Friday. He states he has been feeling somewhat dizzy, weak. Labs today reveal hemoglobin of 6.5. He states he has been having some hard, black stools. He denies abdominal pain, nausea, vomiting, diarrhea. On laboratory evaluation in the emergency department, as noted, his hemoglobin is 6.5, potassium is 6.1, creatinine 11.3, and BUN 108. Dr. Munoz saw Mr. Cruz in the emergency department, and will arrange for dialysis today. The patient will receive a unit of PRBCs during dialysis. He will be admitted for further treatment and consultation with Dr. Munoz. [id number] 13:48 This 48 yrs old Black Male presents to ER via Ambulatory with complaints of low ms3 hemaglobin. 13:48 48-year-old male with past medical history of end-stage renal disease on dialysis ms3 Friday, Friday, Friday, heart failure, hypertension, mild cognitive disorder presents to the emergency department under the direction of dialysis for low hemoglobin. Patient denies pain, shortness of breath. Patient endorses lightheadedness.. Allergies No Known Allergies Allergy (Unverified 05/31/22 20:46) Home medications list reviewed: Yes Home Medications: Acetaminophen [8 Hour Acetaminophen] 650 mg PO Q6H PRN 06/03/22 Acetaminophen with Codeine [Acetaminophen-Cod #3 Tablet] 1 each PO Q8H PRN 06/03/22 Albuterol Sulfate [Albuterol Sulfate 0.083% Neb Soln] 2.5 mg IH TID PRN 06/03/22 Amino Acids/Protein Hydr/Fiber [Pro-Stat Renal Care Liquid Pkt] 30 ml PO DAILY 06/03/22 Amlodipine [Norvasc*] 10 mg PO DAILY 06/03/22 Atorvastatin Calcium [Lipitor] 40 mg PO BEDTIME 06/03/22 Carvedilol [Coreg] 25 mg PO BID 06/03/22 Cetirizine HCl [All Day Allergy Relief] 10 mg PO DAILY 06/03/22 Ferrous Sulfate [Ferrous Sulfate*] 325 mg PO BID 06/03/22 Gabapentin [Neurontin*] 100 mg PO TID 06/03/22 Hydralazine [Apresoline*] 100 mg PO Q8H 06/03/22 Isosorbide Mononitrate [Isosorbide Mononitrate ER] 30 mg PO DAILY 06/03/22 Lactulose 30 ml PO DAILY 06/03/22 Magnesium [Magnesium Gluconate] 400 mg PO Q48H 06/03/22 Multivitamin 1 tab PO DAILY 06/03/22 Polyethyl Gly 3350 [Glycolax*] 1 packet PO DAILY PRN 06/03/22 Sennosides [Senna Lax] 2 tab PO DAILY 06/03/22 Calcium Acetate [Phoslo*] 3 cap PO TID 12/30/22 Clonidine Patch [Catapres-Tts 1*] 1 patch TD Q7D 12/30/22 Divalproex Sodium [Depakote] 1,000 mg PO BEDTIME 12/30/22 Divalproex Sodium [Depakote] 500 mg PO DAILY 12/30/22 Duloxetine HCl [Drizalma Sprinkle] 60 mg PO DAILY 12/30/22 Losartan Potassium [Cozaar*] 50 mg PO DAILY 12/30/22 Melatonin 5 mg PO BEDTIME PRN 12/30/22 Ondansetron [Zofran (Odt)*] 4 mg PO Q8HP PRN 12/30/22 Sodium Zirconium Cyclosilicate [Lokelma] 10 gm PO T,TH,S 12/30/22 Sucralfate [Carafate*] 1 gm PO TID 12/30/22 cloNIDine HCL [Clonidine HCl] 0.1 mg PO Q8H PRN 12/30/22 - Past Medical/Surgical History Diabetic: No -: ESRD on HD (Dr. Munoz/ Jere) -: GERD -: HTN -: HLD -: BPH -: COPD -: Dialysis catheter to groin -: Bilateral upper extremity fistulasno longer in use Psychosocial/ Personal History: Patient currently resides at [facility] - Family History Mother Medical History: Heart disease - Social History Smoking Status: Current every day smoker Alcohol use: Yes CD- Drugs: No Caffeine use: Yes Place of Residence: [place] Review of Systems 10-point ROS is otherwise unremarkable Physical Examination Temp Pulse Resp BP Pulse Ox 97.8 F 86 16 164/82 H 100 07/21/23 16:00 07/21/23 16:00 07/21/23 16:00 07/21/23 16:00 07/21/23 16:00 General: In no apparent distress, Oriented x3, Cooperative HEENT: Atraumatic Neck: Supple Respiratory: Clear to auscultation bilaterally Cardiovascular: No edema Gastrointestinal: Soft and benign, Non-distended Musculoskeletal: No clubbing, No contractures Integumentary: No rashes, No cyanosis Neurological: Normal speech Laboratory Data (last 24 hrs) 07/21/23 07/21/23 13:17 13:17 WBC 7.80 Hgb 6.5 L Hct 19.9 L Plt Count 249 Sodium 135 L Potassium 6.1 H* BUN 108 H Creatinine 11.30 H Glucose 77 Conclusions/Impression: ESRD on HD -Acute HD today Hyponatremia Hyperkalemia -Lokelma as ordered -Acute HD today HTN with CKD/ CHF -Continue Coreg -Continue Clonidine Diastolic CHF, chronic -HD with UF DM II with CKD -RISS Anemia in CKD -Transfuse PRBC with HD -Retacrit prn -Consider GI evaluation CKD MBD -Start Calcitriol Case reviewed with Dr. Funez Thank you kindly for the consultation
[2023-07-21] MEDS: PANTOPRAZOLE 40 MG INJ IVP SCH (21:41)
[2023-07-21] MEDS: DULOXETINE 30 MG CAP PO SCH (21:41)
[2023-07-21] MEDS: GABAPENTIN 100 MG CAP PO SCH (21:41)
[2023-07-22] MEDS ORDERED: D50W 25 GM/50 ML SYRINGE IV PRN (01:04)
[2023-07-22] MEDS ORDERED: GLUCAGON 1 MG/VIAL IM PRN (01:04)
[2023-07-22] MEDS ORDERED: D10W 125 ML IV PRN (01:19)
[2023-07-22] MEDS: INSULIN REGULAR (HUMAN) 100 UNIT/ML SQ SCH (06:00)
[2023-07-22 06:55] LABS: Absolute Basophils 0.1 K/uL (0-0.5); Absolute Eosinophils 0.6 K/uL (0-0.5); Absolute Lymphocytes (CBC) 1.9 K/uL (0.7-4.9); Absolute Monocytes 0.5 K/uL (0.1-1.3); Absolute Neutrophil 3.3 K/uL (1.8-8.0); Basophils % 1.7 % (0-1.3); Hematocrit 22.1 % (39.6-49.0); Hemoglobin 7.3 g/dL (13.6-17.9); Lymphocytes % 29.6 % (15.3-44.8); MCH 29.9 pg (27.0-35.0); MCHC 33.1 g/dL (32.0-36.0); MCV 90.5 fL (80-100); MPV 8.6 fL (7.6-11.3); Monocytes % 8.5 % (3.3-12.3); Neutrophils % 51.2 % (41.7-73.7); Nucleated RBC Absolute Count 0.1 (0-0); Nucleated Red Blood Cells % 1.1 % (0-0); Platelets 239 thou/uL (152-406); RBC Red Blood Cell Count 2.45 M/uL (4.33-5.43); Red Cell Distribution Width 20.7 % (12.1-15.2)
[2023-07-22 07:16] LABS: Albumin 2.6 g/dL (3.4-5.0); Albumin/Globulin Ratio 0.5 (1.1-1.8); Anion Gap 8.6 mEq/L (5.0-15.0); Bilirubin Total 0.5 mg/dL (0.2-1.0); Globulin 5.2 g/dL (2.3-3.5); Magnesium 1.8 mg/dL (1.6-2.4); Phosphorus 4.7 mg/dL (2.5-4.9); Potassium 4.6 mEq/L (3.5-5.1); Protein, Total 7.8 g/dL (6.4-8.2)
[2023-07-22] MEDS: DIVALPROEX DR 500MG TAB PO SCH (08:04)
[2023-07-22] MEDS: cloNIDine HCL 0.1 MG TAB PO PRN (08:04)
[2023-07-22 08:48] LABS: Anisocytosis 1+; Blood Morphology Comment NOTED (NOT SEEN); Hypochromasia 1+; Platelet Estimate ADEQ; Target Cells 1+; White Blood Cell Scan OK (OK)
[2023-07-22 10:16] LABS: PT Prothrombin Time 14.5 SECONDS (9.5-12.5); Protime INR 1.2
--- NOTE | 2023-07-22 10:36 | P.PN ---
Subjective Date of Service: 07/22/23 Chief Complaint: Anemia, ESRD, GIB Subjective: No C/O voiced (Sleepy, no complaints) <Nasrin Omalleylen - Last Filed: 07/22/23 10:32> Date of Service: 07/22/23 <Oly Sanders - Last Filed: 07/22/23 13:12> Review of Systems 10-point ROS is otherwise unremarkable General: Weakness, Malaise, As per HPI Gastrointestinal: As per HPI <Nasrin Omalleylen - Last Filed: 07/22/23 10:32> Physical Examination - Vital Signs Temperature: 97.6 F Blood Pressure: 158/103 Pulse: 83 Respirations: 16 Pulse Ox (%): 99 - Physical Exam General: Alert, In no apparent distress, Oriented x3 HEENT: Atraumatic, Normocephalic Neck: No Thyromegaly Respiratory: Normal air movement Cardiovascular: Normal pulses, Abnormal S4, Systolic murmur, Diastolic murmur Capillary refill: <2 Seconds Gastrointestinal: Soft and benign Musculoskeletal: No clubbing Integumentary: No rashes Neurological: Normal speech, Normal tone Lymphatics: No axilla or inguinal lymphadenopathy External genitalia: Deferred Rectal: Deferred - Studies Laboratory Data (last 24 hrs) 07/21/23 07/21/23 13:17 13:17 WBC 7.80 Hgb 6.5 L Hct 19.9 L Plt Count 249 Sodium 135 L Potassium 6.1 H* BUN 108 H Creatinine 11.30 H Glucose 77 <Mikki Omalleyy Pankaj - Last Filed: 07/22/23 10:32> - Studies Laboratory Data (last 24 hrs) 07/21/23 07/21/23 13:17 13:17 WBC 7.80 Hgb 6.5 L Hct 19.9 L Plt Count 249 Sodium 135 L Potassium 6.1 H* BUN 108 H Creatinine 11.30 H Glucose 77 <Oly Sanders - Last Filed: 07/22/23 13:12> Assessment And Plan - Plan ESRD with anemia Dr. Munoz following Dialysis per above performed 07/20 1 unit PRBC given during dialysis, repeat hemoglobin 7.8, this am 7.2 depakote level - low Hyperkalemia Lokelut po prn, post dialysis K normal Dialysis per Nephrology Telemetry Trend electrolytes HTN Carvedilol 12.5 mg po BID Clonidine 0.1mg po q 8hr prn SBP>150, DBP >100 HLD: atorvastatin 40mg po q hs Black stools: Melena or Iron supplementation? Stool for Guaiac NPO except ice chips until stool sent Consult Dr. Macedo - will see patient today 07/21 Continue Eliquis, hold asa for now Protonix 40mg IV q 12h anxiety/bipolar/chronic pain Gabapentin 100mg po daily Duloxetine 60mg po daily depakote 1000mg po q hs code status: full DVT/GI prophylaxis, pt on Eliquis and Protonix <Nasrin Omalley - Last Filed: 07/22/23 10:32> - Plan Pt seen and examined. I agree with the note by the SPLICING MACHINE OPERATOR. Pt is NPO. GI will do EGD today. Continue protonix 40mg iv BID. Hgb is 7.3 <- 6.5 s/p 1 unit of blood during dialysis. Will continue dialysis. Valproic acid level is <3. No recent BM <Oly Sanders - Last Filed: 07/22/23 13:12>
[2023-07-22] MEDS ORDERED: NA CHLORIDE 0.9% 500 ML ONE (12:04)
[2023-07-22] MEDS ORDERED: propofoL 200 MG/20 ML VIAL IV ONE (12:34)
[2023-07-22] MEDS ORDERED: LIDOCAINE 1% MPF 5 ML VIAL ONE (12:35)
[2023-07-22] MEDS ORDERED: EPINEPHRINE 1 MG/ML VIAL ONE (12:50)
--- NOTE | 2023-07-22 18:00 | P.DS ---
Admission Date: 07/21/23 Discharge Date: 07/22/23 Disposition: TRANSFER TO SHELTER Discharge Condition: GOOD Reason for Admission: Anemia, ESRD, GIB Brief History of Present Illness: Mr. Cruz is a 48-year-old male who resides at [facility]. He has a past medical history of acute/subacute infective endocarditis, chronic right heart failure, chronic obstructive pulmonary disease, hypertensive heart and chronic kidney disease with ESRD, distant history of stimulant abuse. He sees Dr. Munoz and has dialysis Friday, Friday, and Friday. He states he has been feeling somewhat dizzy, weak. Labs today reveal hemoglobin of 6.5. He states he has been having some hard, black stools. He denies abdominal pain, nausea, vomiting, diarrhea. On laboratory evaluation in the emergency department, as noted, his hemoglobin is 6.5, potassium is 6.1, creatinine 11.3, and BUN 108. Dr. Munoz saw Mr. Cruz in the emergency department, and will arrange for dialysis today. The patient will receive a unit of PRBCs during dialysis. He will be admitted for further treatment and consultation with Dr. Munoz. Hospital Course: Pt is a 48 yo male with past medical history of acute/subacute infective endocarditis, chronic right heart failure, chronic obstructive pulmonary disease, hypertensive heart, chronic kidney disease with ESRD, and stimulant abuse who presented with dizziness and weakness. On admission, lab studies showed hemoglobin of 6.5. Pt reported having melena at home. He refused rectal exam. Other lab studies showed K 6.1, creatinine 11.3, and BUN 108. We consulted nephrology for dialysis. We kept pt NPO, gave protonix 40mg iv BID, 1 unit of blood and monitored H/H. GI did EGD which showed esophagitis, hiatal hernia and duodenal polyp. Pt was advised to take protonix 40mg po daily. We gave another unit of blood prior to discharge ( hgb 6.5 -> 7.8 -> 7.3). Pt was in NAD prior to discharge. Vital Signs/Physical Exam: Temp Pulse Resp BP Pulse Ox 98.8 F 88 15 158/67 H 100 07/22/23 15:59 07/22/23 15:59 07/22/23 15:59 07/22/23 15:59 04/23/24 15:59 Laboratory Data at Discharge: WBC 6.40 thou/uL (4.3-10.9) 07/22/23 06:37 Hgb 7.3 g/dL (13.6-17.9) L 07/22/23 06:37 Hct 22.1 % (39.6-49.0) L 07/22/23 06:37 Plt Count 239 thou/uL (152-406) 07/22/23 06:37 PT 14.5 SECONDS (9.5-12.5) H 07/22/23 06:37 INR 1.20 07/22/23 06:37 Sodium 135 mEq/L (136-145) L 07/22/23 06:37 Potassium 4.6 mEq/L (3.5-5.1) D 07/22/23 06:37 BUN 58 mg/dL (7-18) H 07/22/23 06:37 Creatinine 7.88 mg/dL (0.70-1.30) H 07/22/23 06:37 Glucose 87 mg/dL (74-106) 07/22/23 06:37 Phosphorus 4.7 mg/dL (2.5-4.9) 07/22/23 06:37 Magnesium 1.8 mg/dL (1.6-2.4) 07/22/23 06:37 Total Bilirubin 0.5 mg/dL (0.2-1.0) 07/22/23 06:37 AST 26 U/L (15-37) 07/22/23 06:37 ALT 23 U/L (16-61) 07/22/23 06:37 Alkaline Phosphatase 90 U/L (45-117) 07/22/23 06:37 Home Medications: Acetaminophen [8 Hour Acetaminophen] 650 mg PO Q6H PRN 06/03/22 Acetaminophen with Codeine [Acetaminophen-Cod #3 Tablet] 1 each PO Q8H PRN 06/03/22 Albuterol Sulfate [Albuterol Sulfate 0.083% Neb Soln] 2.5 mg IH TID PRN 06/03/22 Amino Acids/Protein Hydr/Fiber [Pro-Stat Renal Care Liquid Pkt] 30 ml PO DAILY 06/03/22 Amlodipine [Norvasc*] 10 mg PO DAILY 06/03/22 Atorvastatin Calcium [Lipitor] 40 mg PO BEDTIME 06/03/22 Carvedilol [Coreg] 25 mg PO BID 06/03/22 Cetirizine HCl [All Day Allergy Relief] 10 mg PO DAILY 06/03/22 Ferrous Sulfate [Ferrous Sulfate*] 325 mg PO BID 06/03/22 Gabapentin [Neurontin*] 100 mg PO TID 06/03/22 Hydralazine [Apresoline*] 100 mg PO Q8H 06/03/22 Isosorbide Mononitrate [Isosorbide Mononitrate ER] 30 mg PO DAILY 06/03/22 Lactulose 30 ml PO DAILY 06/03/22 Magnesium [Magnesium Gluconate] 400 mg PO Q48H 06/03/22 Multivitamin 1 tab PO DAILY 06/03/22 Polyethyl Gly 3350 [Glycolax*] 1 packet PO DAILY PRN 06/03/22 Sennosides [Senna Lax] 2 tab PO DAILY 06/03/22 Calcium Acetate [Phoslo*] 3 cap PO TID 12/30/22 Clonidine Patch [Catapres-Tts 1*] 1 patch TD Q7D 12/30/22 Divalproex Sodium [Depakote] 1,000 mg PO BEDTIME 12/30/22 Divalproex Sodium [Depakote] 500 mg PO DAILY 12/30/22 Duloxetine HCl [Drizalma Sprinkle] 60 mg PO DAILY 12/30/22 Losartan Potassium [Cozaar*] 50 mg PO DAILY 12/30/22 Melatonin 5 mg PO BEDTIME PRN 12/30/22 Ondansetron [Zofran (Odt)*] 4 mg PO Q8HP PRN 12/30/22 Sodium Zirconium Cyclosilicate [Lokelma] 10 gm PO T,TH,S 12/30/22 Sucralfate [Carafate*] 1 gm PO TID 12/30/22 cloNIDine HCL [Clonidine HCl] 0.1 mg PO Q8H PRN 12/30/22 Pantoprazole [Protonix Tab] 40 mg PO DAILY 30 Days #30 tab 07/22/23 New Medications: Pantoprazole [Protonix Tab] 40 mg PO DAILY 30 Days #30 tab Physician Discharge Instructions: Continue ad kelly activity. Take home meds as prescribed. Take protonix 40mg po daily. Continue hemodialysis. Follow up with PC and Nephrology within 1 week. 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
[2023-07-22] MEDS: NA CHLORIDE 0.9% 250 ML IV SCH (20:34)
[2023-07-22] MEDS: HYDROCODONE/APAP 5/325 MG TAB PO ONE (21:13)
--- NOTE | 2023-07-22 21:50 | P.PN ---
Date of Service: 07/22/23 Vital Signs Temp Pulse Resp BP Pulse Ox 97.8 F 90 16 157/69 H 100 07/22/23 20:00 07/22/23 20:00 07/22/23 21:13 07/22/23 20:00 07/22/23 21:13 Medications Carvedilol (Carvedilol 12.5 Mg Tab) 12.5 mg PO BID 6AM 6PM [facility] Last Admin: 07/22/23 18:33 Dose: 12.5 mg Clonidine HCl (Clonidine Hcl 0.1 Mg Tab) 0.1 mg PO TID PRN PRN Reason: SBP>150, DBP > 100 Last Admin: 07/22/23 08:04 Dose: 0.1 mg Divalproex Sodium (Divalproex Dr 500mg Tab) 1,000 mg PO DAILY [facility] Last Admin: 07/22/23 08:04 Dose: Not Given Duloxetine HCl (Duloxetine 30 Mg Cap) 60 mg PO BEDTIME MARCIO Last Admin: 07/22/23 20:48 Dose: 60 mg Gabapentin (Gabapentin 100 Mg Cap) 100 mg PO BEDTIME MARCIO Last Admin: 07/22/23 20:48 Dose: 100 mg Glucagon (Glucagon 1 Mg/Vial) 1 mg IM 1X PRN; Protocol PRN Reason: HYPOGLYCEMIA Heparin Sodium (Porcine) (Heparin 1,000 Unit/Ml Vial) 2,000 unit IV EVERY HD PRN PRN Reason: Prevent HD System Clotting Last Admin: 07/21/23 16:57 Dose: 2,000 unit Heparin Sodium (Porcine) (Heparin 1,000 Unit/Ml Vial) 6,000 unit IV EVERY HD PRN PRN Reason: FOR DIALYSIS CATHETER CARE Last Admin: 07/21/23 20:03 Dose: 6,000 unit Sodium Chloride (Sodium Chloride) 250 mls @ 0 mls/hr IV .Q0M MARCIO Last Admin: 07/22/23 20:34 Dose: 250 mls Dextrose (Dextrose 10% Water Iv Soln.) 125 mls @ 0 mls/hr IV PRN PRN; Protocol PRN Reason: HYPOGLYCEMIA Insulin Human Regular (Insulin Regular (Human) 100 Unit/Ml) 0 unit SQ Q6HR MARCIO; Protocol Last Admin: 07/22/23 18:00 Dose: Not Given Pantoprazole Sodium (Pantoprazole 40 Mg Inj) 40 mg IVP Q12HR MARCIO; Protocol Last Admin: 07/22/23 20:49 Dose: 40 mg Sodium Chloride (Sodium Chloride 0.9% 10ml Inj) 10 ml IV UD PRN PRN Reason: Diluant Lab Results (last 24 hrs) 07/21/23 13:51: ABO/Rh A POSITIVE, Solid Phase Ab Screen Negative, Crossmatch See Detail Assessment/ Plan: Nephrology No dyspnea No chest pain No acute events overnight Vitals, medications, blood work and imaging reviewed in the chart General: In no apparent distress, Oriented x3, Cooperative HEENT: Atraumatic Neck: Supple Respiratory: Clear to auscultation bilaterally Cardiovascular: No edema Gastrointestinal: Soft and benign, Non-distended Musculoskeletal: No clubbing, No contractures Integumentary: No rashes, No cyanosis Neurological: Normal speech Laboratory Data (last 24 hrs) 07/21/23 07/21/23 13:17 13:17 WBC 7.80 Hgb 6.5 L Hct 19.9 L Plt Count 249 Sodium 135 L Potassium 6.1 H* BUN 108 H Creatinine 11.30 H Glucose 77 Conclusions/Impression: ESRD on HD -HD TIW Hyponatremia Hyperkalemia -kelnj prn -HD TIW -Renal diet HTN with CKD/ CHF -Continue Coreg -Continue Clonidine Diastolic CHF, chronic -HD with UF DM II with CKD -RISS Anemia in CKD -Transfuse PRBC with HD -Retacrit prn -Consider GI evaluation CKD MBD -Continue Calcitriol Hospitalist note reviewed
[2023-07-23 00:17] VITALS: BP 159/85; TEMP 97.7; O2SAT 97
--- NOTE | 2023-07-24 16:56 | EKG ---
Test Date: 2023-07-21 Test Time: 14:55:22 Pinion Sorter: ANDREA MEASUREMENT RESULTS: Intervals: Rate: 93 HI: 184 QRSD: 72 QT: 386 QTc: 479 [place]: P: 50 HI: 184 QRS: 12 T: 86 INTERPRETIVE STATEMENTS: Normal sinus rhythm Cannot rule out Anteroseptal infarct, age undetermined Abnormal ECG Compared to ECG 04/29/2023 22:39:52 No significant changes Electronically Signed On 07-24-23 16:45:41 CDT by Toni Ríos
== END 2023-07-23 01:45 | DRG 368 ==
LOC: ER 10:50 → ERHOLD 14:14 → 4TH 14:54
PROVIDERS: ADMIT Hospitalist; ATTEND Hospitalist
PROC: 5A1D70Z Performance of Urinary Filtration, Intermittent, Less than 6 Hours Per Day (ICD-10-PCS; principal; 2023-07-21)
PROC: 30233N1 Transfusion of Nonautologous Red Blood Cells into Peripheral Vein, Percutaneous Approach (ICD-10-PCS; 2023-07-21)
PROC: 0DB98ZX Excision of Duodenum, Via Natural or Artificial Opening Endoscopic, Diagnostic (ICD-10-PCS; 2023-07-21)
PROC: 0DB38ZX Excision of Lower Esophagus, Via Natural or Artificial Opening Endoscopic, Diagnostic (ICD-10-PCS; 2023-07-22)
PROC: 0DB78ZX Excision of Stomach, Pylorus, Via Natural or Artificial Opening Endoscopic, Diagnostic (ICD-10-PCS; 2023-07-22)
PROC: 0DB68ZX Excision of Stomach, Via Natural or Artificial Opening Endoscopic, Diagnostic (ICD-10-PCS; 2023-07-22)
DX: K21.01 Gastro-esophageal reflux disease with esophagitis, with bleeding (principal); K29.71 Gastritis, unspecified, with bleeding; N18.6 End stage renal disease; D62 Acute posthemorrhagic anemia; I13.2 Hypertensive heart and chronic kidney disease with heart failure and with stage 5 chronic kidney disease, or end stage renal disease; I50.32 Chronic diastolic (congestive) heart failure; E87.1 Hypo-osmolality and hyponatremia; E11.22 Type 2 diabetes mellitus with diabetic chronic kidney disease; D63.1 Anemia in chronic kidney disease; E87.5 Hyperkalemia; K31.7 Polyp of stomach and duodenum; K44.9 Diaphragmatic hernia without obstruction or gangrene; E78.5 Hyperlipidemia, unspecified; F31.9 Bipolar disorder, unspecified; F41.9 Anxiety disorder, unspecified; G89.29 Other chronic pain; N40.0 Benign prostatic hyperplasia without lower urinary tract symptoms; J44.9 Chronic obstructive pulmonary disease, unspecified; F17.210 Nicotine dependence, cigarettes, uncomplicated; Z99.2 Dependence on renal dialysis; Z79.01 Long term (current) use of anticoagulants; Z79.02 Long term (current) use of antithrombotics/antiplatelets; Z79.899 Other long term (current) drug therapy; Z86.718 Personal history of other venous thrombosis and embolism; Z91.158 Patient's noncompliance with renal dialysis for other reason
CPT/HCPCS: 36415; 36430; 80048; 80053; 80164; 82947; 83735; 84100; 84443; 85018; 85025; 85610; 86850; 86900; 86901; 86920; 88305; 88312; 90935; 93005; 99284; C9113; J0171; J1644; J2001; J2704; J7040; J7050; P9016